=== PATIENT | male | born 1935 | race Caucasian/White ===

== ENCOUNTER → 2020-07-18 12:12 | Outpatient (CLI) | payer MEDICARE, OTHER, SELFPAY | PROVIDERS: Visit Provider Internal Medicine Cardiovascular Disease | DX: Z03.818 Encounter for observation for suspected exposure to other biological agents ruled out (principal) | CPT/HCPCS: U0003 ==

== ENCOUNTER 2020-08-03 20:40 | Observation (INO) | payer MEDICARE, SELFPAY ==
--- NOTE | 2020-08-03 20:35 | ECG_ITS ---
APPROVED REPORT Exam: Resting ECG HR:76 bpm ECG Measurements Heart Rate 76 AXES [place] 188 P 62 QRSd 142 QRS -46 QT 406 T 63 QTc 456 Conclusion Sinus rhythm with premature atrial complexes with aberrant conduction Right bundle branch block Left anterior fascicular block Bifascicular block Left ventricular hypertrophy with repolarization abnormality Abnormal ECG Electronically signed by : Dimitrios Crow, 08/08/2020 11:32:46
[2020-08-03 20:45] VITALS: BP 136/80; PULSE 64; RESP 18; TEMP 36.7; O2SAT 100; BMI 28.0
--- NOTE | 2020-08-03 20:51 | HMH.EDCP ---
ED Disposition Clinical Impression: Chest pain, Coagulopathy Disposition: Xfer Short-Term Hosp Condition on Discharge: Good Referrals: PCP,No [Non-Staff] - Forms: Transfer Record - ED - Critical Care Critical Care Time: No Attestation: On 08/03/20, the high probability of a clinically significant, sudden or life threatening deterioration of the following system(s) required my full and direct attention, intervention and personal management. The time I documented below is in addition to time spent performing reported procedures but includes the following listed in this critical care notation. Medical Decision Making - [place] Inquiry Pt receiving controlled substance: No Vital Signs: 08/03/20 20:45 08/03/20 21:23 08/03/20 21:47 Temperature 98.1 F Temperature Source Oral Pulse Rate [Right Brachial] 64 71 67 Respiratory Rate 18 Blood Pressure [Right Arm] 136/80 123/73 114/65 Blood Pressure Mean [Right Arm] 98 89 81 Blood Pressure Source [Right Arm] Automatic Cuff Automatic Cuff Automatic Cuff Blood Pressure Position [Right Arm] Sitting Sitting Sitting 02 Sat by Pulse Oximetry 100 94 L 95 Oxygen Delivery Method Room Air Room Air Room Air 08/03/20 22:35 08/03/20 23:00 Temperature 98.1 F Temperature Source Oral Pulse Rate [Right Brachial] 66 70 Respiratory Rate 17 Blood Pressure [Right Arm] 100/51 L 103/59 L Blood Pressure Mean [Right Arm] 67 73 Blood Pressure Source [Right Arm] Automatic Cuff Automatic Cuff Blood Pressure Position [Right Arm] Sitting Sitting 02 Sat by Pulse Oximetry 96 93 L Oxygen Delivery Method Room Air Room Air - Lab Data Lab Results 08/03/20 20:53: WBC 5.9, RBC 5.24, Hgb 15.2, Hct 47.3, MCV 90.2, MCH 29.1, MCHC 32.2, RDW 14.6, Plt Count 153, MPV 11.1 H, Neut % (Auto) 62.3, Lymph % (Auto) 30.7, [place] % (Auto) 5.7, Eos % (Auto) 0.8, Baso % (Auto) 0.4, Neut # (Auto) 3.7, Lymph # (Auto) 1.8, [place] # (Auto) 0.3, Eos # (Auto) 0.1, Baso # (Auto) 0.0 10/25/20 20:53: PT 56.5 H, INR 5.99 H 08/03/20 20:53: Sodium 138, Potassium 3.8, Chloride 102, Carbon Dioxide 27, Anion Gap 12.8, BUN 25 H, Creatinine 1.20, Estimated Creat Clear 57, Estimated GFR 58 L, Est GFR ( Amer) 70, Glucose 232 H, Calcium 9.3, Troponin I 0.04 H Result diagrams: 08/03/20 20:53 08/03/20 20:53 Orders (Tests/Meds): ED MEDICATIONS Generic Name Dose Route Start Last Admin Trade Name Freq PRN Reason Stop Dose Admin Nitroglycerin 0.4 mg 08/03/20 20:58 Nitroglycerin 0.4mg Sl Tablet SL 08/04/20 20:58 [id number] PRN Chest Pain Discontinued Medications Generic Name Dose Route Start Last Admin Trade Name Freq PRN Reason Stop Dose Admin Aspirin 324 mg 08/03/20 20:58 08/03/20 21:06 Aspirin 81mg Chewable Tablet PO 08/03/20 20:59 324 mg ONCE ONE Administration Ioversol 70 ml 08/03/20 22:27 08/03/20 22:28 Ioversol-350 (74%) 100ml Vial IV 08/03/20 22:28 70 ml ONCE ONE Administration Protocol Sodium Chloride 40 ml 08/03/20 22:27 08/03/20 22:28 0.9 % Sodium Chloride 50 Ml Vial IV 08/03/20 22:28 40 ml ONCE ONE Administration Sodium Chloride 10 ml 08/03/20 22:27 08/03/20 22:28 Sodium Chloride 0.9% 10ml Syr (Rad Only) IV 08/03/20 22:28 10 ml ONCE ONE Administration ORDERS Category Date Time Status CT Chest w/PE protocol [CT angio chest] Stat Cat Scan 08/03/20 21:01 Taken XR chest 2V Stat Exams 08/03/20 20:58 Taken Troponin I Q3H Lab 08/04/20 00:00 Ordered Troponin I Q3H Lab 08/04/20 03:00 Ordered ECG Request by /Sherrell Stat Y 08/03/20 20:58 Ordered - Radiology Data #1 Image(s): Chest Image Reviewed: Yes I reviewed the patient's radiology image Chest x-ray demonstrated normal aeration of bilateral lungs mild deviation of the trachea likely secondary to patient's history of a sternotomy. No enlarged heart silhouette. - CT Data CT Scan: Chest Time Received: 22:[address] Reviewed: Yes: I have reviewed the patient's CT re
--- NOTE | 2020-08-03 20:58 | XR_ITS ---
PROCEDURE: XR CHEST 2V CLINICAL HISTORY: chest pain Centralized chest pain, heart disease COMPARISON: CT CT ANGIO CHEST from 08/03/2020 FINDINGS: Prior median sternotomy. Prior TAVR. Biventricular pacemaker is present with right atrial lead. Mild cardiomegaly without failure. The lungs are clear without infiltrates, suspicious nodules, or pleural effusions. No acute bony abnormalities. IMPRESSION: Postsurgical changes with mild cardiomegaly Dictated by: Neymar Ellis MD 08/04/2020 05:31 Neymar Ellis MD in [place] 08/04/2020 05:31
--- NOTE | 2020-08-03 21:01 | CT_ITS ---
PROCEDURE: CT ANGIO CHEST CLINCIAL INDICATION: chest pain hx of thrombosis Centralized chest pain, prior aortic valve replacement COMPARISON: No exams were available for comparison TECHNIQUE: IV Contrast: 70ML OPTIRAY 350 Axial images obtained with sagittal and coronal reformats. All CT scans at the facility use one or more dose reduction, viz: automated exposure control, ma/kV adjustment per patient size (including targeted exams where dose is matched to indication, i.e. head), or iterative reconstruction technique. FINDINGS: Cardiac pacemaker device is present from left subclavian approach. No evidence of aortic aneurysm. There is somewhat elongated pulmonary outflow track with mild dilatation the supravalvular portion of the main pulmonary artery at 4.4 cm. No evidence of pulmonary embolus. No mediastinal or hilar mass. Post median sternotomy change with prior CABG and TAVR. There is mild ectasia and tortuosity of the descending thoracic aorta. Sub cm right thyroid nodule. Atelectatic or fibrotic changes are present in the lingula. There are mild degenerative changes in the thoracic spine. Upper abdominal images show cholelithiasis. There are punctate calcifications throughout the pancreas consistent with chronic pancreatitis. The adrenal glands are prominent on both sides and may be due to adenomas. There is a sub cm hypodensity in the right hepatic lobe inferiorly too small to categorize. IMPRESSION: 1. No evidence of pulmonary embolus. Mild dilatation of the supravalvular portion of the pulmonary artery. 2. Postsurgical changes. 3. Other nonacute findings as described above. Dictated by: Neymar Ellis MD 08/04/2020 06:22 Neymar Ellis MD in [place] 08/04/2020 06:22
--- NOTE | 2020-08-03 21:09 | PC.NURSE ---
Pt gone to xray at this time
--- NOTE | 2020-08-03 21:16 | ECG_ITS ---
APPROVED REPORT Exam: Resting ECG HR:67 bpm ECG Measurements Heart Rate 67 AXES CA 154 P 42 QRSd 140 QRS -42 QT 436 T 71 QTc 460 Conclusion Normal sinus rhythm Possible Left atrial enlargement Left axis deviation,LAHB Right bundle branch block Left ventricular hypertrophy Abnormal ECG Electronically signed by : Dimitrios Crow, 08/08/2020 11:32:25
[2020-08-03 21:23] VITALS: BP 123/73; PULSE 71; O2SAT 94
[2020-08-03 21:35] LABS: Basophils % 0.4 % (0.1-2.0); Eosinophils # 0.1 K/mm3 (0.0-0.4); Eosinophils % 0.8 % (0.1-12.0); Hematocrit 47.3 % (42.0-52.0); Hemoglobin 15.2 g/dL (14.1-18.0); Lymphocytes # 1.8 K/mm3 (0.7-4.5); Lymphocytes % 30.7 % (10-50); Mean Corpuscular HGB Conc 32.2 g/dL (31.8-35.4); Mean Corpuscular Hemoglobin 29.1 pg (27.0-31.2); Mean Corpuscular Volume 90.2 fl (80-94); Mean Platelet Volume 11.1 fl (7.4-10.4); Monocytes # 0.3 K/mm3 (0.1-1.0); Monocytes % 5.7 % (1.7-9.3); Neutrophils # 3.7 K/mm3 (1.8-7.8); Neutrophils % 62.3 % (37.0-80.0); Platelet Count 153 K/mm3 (142-424); Red Blood Count 5.24 M/mm3 (4.60-6.20); Red Cell Distribution Width 14.6 % (11.5-17.5); White Blood Count 5.9 K/mm3 (4.8-10.8)
[2020-08-03 21:37] LABS: Anion Gap 12.8 mEq/L (5-15); Blood Urea Nitrogen 25 mg/dl (9-20); Calcium 9.3 mg/dl (8.4-10.2); Carbon Dioxide 27 mmol/L (22.0-30.0); Chloride 102 mmol/L (98-107); Creatinine Clearance Estimated 57 mL/min (50-200); Estimated Glomerular Filt Rate 58 ml/min (>60); GFR (African American) 70 ML/MIN (>60); Glucose 232 mg/dl (74-100); Potassium 3.8 mmoL/L (3.5-5.1); Sodium 138 mmol/L (136-145)
[2020-08-03 21:47] VITALS: BP 114/65; PULSE 67; O2SAT 95
[2020-08-03 21:49] LABS: Troponin I 0.04 ng/ml (0.00-0.034)
[2020-08-03 21:53] LABS: INR 5.99 (0.9-1.1); Prothrombin Time 56.5 seconds (9.4-11.8)
[2020-08-03 22:35] VITALS: BP 100/51; PULSE 66; O2SAT 96
--- NOTE | 2020-08-03 22:51 | PC.NURSE ---
spoke with [facility] who accepted pt at this time. Stated they would jeet back with a bed assignment.
[2020-08-03 23:00] VITALS: BP 103/59; PULSE 70; RESP 17; TEMP 36.7; O2SAT 93
--- NOTE | 2020-08-03 23:11 | PC.NURSE ---
Dr craig calling to speak with
--- NOTE | 2020-08-03 23:15 | PC.NURSE ---
Dr craig is the accepting physician
[2020-08-04] VITALS (8 sets, daily range): BP systolic 107–146; BP diastolic 56–88; PULSE 50–71; RESP 18–19; TEMP 36.4–36.8; O2SAT 94–97; BMI 29.4
--- NOTE | 2020-08-04 00:19 | PC.NURSE ---
called transfer center for bed assignment update. Stated it would be at least morning until a bed was available.
[2020-08-04 00:36] LABS: Troponin I 0.11 ng/ml (0.00-0.034)
--- NOTE | 2020-08-04 00:44 | PC.NURSE ---
MD at the bedside speaking with patient about new lab findings
--- NOTE | 2020-08-04 00:46 | PC.NURSE ---
Updated [facility] of new lab findings
--- NOTE | 2020-08-04 00:49 | PC.NURSE ---
pagfior solorio at this time
--- NOTE | 2020-08-04 00:50 | PC.NURSE ---
Addendum entered by Margy Dsouza, REBA 08/04/20 00:55: Dr solorio to see pt in the morning Original Note: speaking with dr solorio
--- NOTE | 2020-08-04 00:52 | PC.NURSE ---
wants to admit pt to medically manage pt/inr until bed is available at [facility]. Dr Sarmiento paged at this time
--- NOTE | 2020-08-04 00:54 | PC.NURSE ---
speaking with dr girard
[2020-08-04 01:22] LABS: Coronavirus 19 IgG Antibody Positive (Negative)
[2020-08-04 01:23] LABS: Coronavirus 19 IgM Antibody Positive (Negative)
--- NOTE | 2020-08-04 01:25 | PC.NURSE ---
pt serology positive. md notified. order to swab.
[2020-08-04 01:42] LABS: Adenovirus,PCR Not Detected (NotDetected); Bordetella Pertussis Not Detected (NotDetected); Chlamydophila Pneumoniae, PCR Not Detected (NotDetected); Coronavirus 19, PCR Not Detected (NotDetected); Coronavirus 229E Not Detected (NotDetected); Coronavirus NL63 Not Detected (NotDetected); Coronavirus OC43 Not Detected (NotDetected); Coronovirus HKU1,PCR Not Detected (NotDetected); Human Metapneumovirus Not Detected (NotDetected); Influenza A, PCR Not Detected (NotDetected); Influenza AH1, 2009 Not Detected (NotDetected); Influenza AH1, PCR Not Detected (NotDetected); Influenza AH3,PCR Not Detected (NotDetected); Influenza B, PCR Not Detected (NotDetected); Mycoplasma Pneumoniae, PCR Not Detected (NotDetected); Parainfluenza 1, PCR Not Detected (NotDetected); Parainfluenza 2, PCR Not Detected (NotDetected); Parainfluenza 3, PCR Not Detected (NotDetected); Parainfluenza 4, PCR Not Detected (NotDetected); Respiratory Syncytial Virus Not Detected (NotDetected); Rhinovirus/Enterovirus Not Detected (NotDetected)
--- NOTE | 2020-08-04 03:21 | PC.NURSE ---
PT ARRIVED VIA W/C FROM ED W/STAFF AT 0024
--- NOTE | 2020-08-04 04:07 | PC.NURSE ---
PT A&OX4. pt denies SOA or pain since coming to floor. Lungs CTA. NSR on tele.
[2020-08-04 04:20] LABS: Troponin I 0.16 ng/ml (0.00-0.034)
--- NOTE | 2020-08-04 04:32 | PC.NURSE ---
Nita Aparicio from [facility] called this RN about a bed update. She reports still no beds available.
--- NOTE | 2020-08-04 06:01 | PC.NURSE ---
Alessandra from [facility] called for pt update. She reports no beds available
[2020-08-04 07:13] LABS: Basophils % 0.3 % (0.1-2.0); Eosinophils # 0.1 K/mm3 (0.0-0.4); Hematocrit 39.6 % (42.0-52.0); Hemoglobin 15.3 g/dL (14.1-18.0); Lymphocytes # 1.7 K/mm3 (0.7-4.5); Lymphocytes % 49.1 % (10-50); Mean Corpuscular HGB Conc 38.6 g/dL (31.8-35.4); Mean Corpuscular Hemoglobin 34.5 pg (27.0-31.2); Mean Corpuscular Volume 89.5 fl (80-94); Mean Platelet Volume 11.2 fl (7.4-10.4); Monocytes # 0.3 K/mm3 (0.1-1.0); Monocytes % 7.2 % (1.7-9.3); Neutrophils # 1.4 K/mm3 (1.8-7.8); Neutrophils % 41.3 % (37.0-80.0); Platelet Count 112 K/mm3 (142-424); Red Blood Count 4.43 M/mm3 (4.60-6.20); Red Cell Distribution Width 14.6 % (11.5-17.5); White Blood Count 3.4 K/mm3 (4.8-10.8)
[2020-08-04 07:20] LABS: Chloride 102 mmol/L (98-107); Sodium 140 mmol/L (136-145)
[2020-08-04 07:21] LABS: Potassium 4.1 mmoL/L (3.5-5.1)
--- NOTE | 2020-08-04 07:21 | HMH.PHAVTE ---
[facility] Pharmacy VTE Monitoring - Patient Demographics Admission date: 08/04/20 Report Date: 08/04/20 Time: 07:21 Allergies/Adverse Reactions: Patient Allergies clopidogrel [From Plavix] Adverse Reaction (Verified 08/03/20 20:53) Height: 1.75 m Weight: 90.129 kg Patient Problems: Current Active Problems Chest pain (Acute) Coagulopathy (Acute) - VTE Risk Labs: VTE Related Lab Results Hgb 15.3 g/dL (14.1-18.0) 08/04/20 06:44 Hct 39.6 % (42.0-52.0) L 08/04/20 06:44 Plt Count 112 K/mm3 (142-424) L D 08/04/20 06:44 PT 56.5 seconds (9.4-11.8) H 08/03/20 20:53 INR 5.99 (0.9-1.1) H 08/03/20 20:53 BUN 25 mg/dl (9-20) H 08/03/20 20:53 Creatinine 1.20 mg/dl (0.66-1.25) 08/03/20 20:53 Estimated Creat Clear 57 mL/min (50-200) 08/03/20 20:53 Was VTE Risk Assessment Performed: Yes VTE Score: 1 VTE Risk Level: Very Low Risk Clinical Trial Participant: No - Prophylaxis VTE Prophylaxis Ordered?: Yes Types of VTE Prophylaxis: TEDS Knee High
[2020-08-04 07:24] LABS: Anion Gap 11.1 mEq/L (5-15); Blood Urea Nitrogen 28 mg/dl (9-20); Calcium 9.3 mg/dl (8.4-10.2); Carbon Dioxide 31 mmol/L (22.0-30.0); Creatinine Clearance Estimated 59 mL/min (50-200); Estimated Glomerular Filt Rate 58 ml/min (>60); GFR (African American) 70 ML/MIN (>60); Glucose 108 mg/dl (74-100)
[2020-08-04 07:57] LABS: INR 5.49 (0.9-1.1); Prothrombin Time 52.2 seconds (9.4-11.8)
--- NOTE | 2020-08-04 08:37 | HMH.HP ---
*Admission Date: 08/04/20 *Chief complaint: Chest pain *History of present illness: Mr. Cassidy is an 85-year-old male patient who is followed by Dr. Easley, cardiology, and PCP at [facility] with a history of CABG in 2007, aortic valve replacement in October 2019 followed by reaction to Plavix at which time he ended up with a pacemaker placement. 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 He states he began having midsternal chest discomfort around 3:00 PM yesterday which continued until about 8 PM. He describes the pain is severe and continuous and associated with some shortness of breath. He did feel it radiated up into his neck and shoulders. He did not feel palpitations. He denies fever and any other respiratory symptoms. Thus he did present to [facility] emergency room for evaluation. With evaluation in the emergency room CTA of the chest showed no evidence of pulmonary embolus; mild dilatation of the supra valvular portion of the pulmonary artery; postsurgical changes. INR was elevated at 5.99. Troponin was elevated at 0.04. He was given a nitroglycerin and a chewable aspirin. EKG did show a paced rhythm with a left anterior fascicular block and right bundle branch block. ER physician did discuss his condition with blasting contract miner on-call at [facility] who recommended admission and transfer. He was successfully accepted for transfer but no bed was available. He continues to await a bed. Troponin I did further elevated to 0.11-0.16. This a.m. electrolytes are normal, kidney function is acceptable. INR has decreased to 5.49. To note SARS Covid IgG was positive as well as IgM. SARS Covid PCR was negative. This a.m. patient denies any further chest pain. He actually got into his room about 4 AM and maybe has slept her. He denies shortness of breath. He has eaten all of his breakfast. Patient notes that he is very active. 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 [facility] History Medical History: Reports:: Atherosclerotic Heart Disease, Coronary Artery Disease, Heart Murmur, Hyperlipidemia, Hypertension, Valvular Heart Disease Denies:: Cancer, Diabetes Mellitus Type 1, Diabetes Mellitus Type 2, Gastrointestinal Bleed, Internal Pacemaker, MRSA *Have you ever received a pneumonia vaccine?: Yes *Have you received a flu vaccine this season?: Yes Other Surgeries: Yes: Cardiac Catheterization, Cardiac Surgery, Open Heart Surgery, Other Valve Replacement. No: Pacemaker Amputation: No - *Social History Last grade of school completed: Advanced degree Smoking Status: Former smoker Tobacco Type: cigarettes # Packs/Day (cigarettes): 1 #Yrs smoked (if former smoker): 45 Smoking End Date: 2007 Alcohol Intake: never *Occupational Status:: retired Household Members: spouse *Travel in the last 8 weeks: None Family Hx:: Coronary Artery Disease, Heart Attack, Hyperlipidemia, Hypertension Review of Systems - Constitutional Denies fever(s), Denies lack of energy - Eyes Denies change in vision - ENT Denies dizziness, Denies ear pain, Denies sore throat - *Cardiovascular Reports chest pain, Reports shortness of breath, Denies irregular heart rhythm, Denies leg swelling - *Gastrointestinal Denies abdominal pain, Denies change in bowel habits, Denies heartburn, Denies nausea, Denies vomiting - *Genitourinary Denies difficulty urinating - *Musculoskeletal Denies abnormal walking, Denies joint pain, Denies muscle weakness - *Neurologic Denies abnormal walking, Denies abnormal speech, Denies seizure-like activity, Denies unsteadiness, Denies dizziness Meds Home Medications Medication Instructions Recorded Confirmed Type Atorvastatin Calcium [Lipitor 20mg 20 mg PO WEEKLY 08/03/20 08/04/20 History Tablet*] Lisinopril/Hydrochlorothiazide 1 each PO DAILY 08/03/20 08/04/20 History [Lisinopril-Hctz 20-12.5 mg Tab] Ni
--- NOTE | 2020-08-04 09:00 | HMH.HPDC ---
General - General Admission date:: 08/04/20 Discharge date: 08/04/20 *Admission Date: 08/04/20 *Chief complaint: chest pain *History of present illness: Mr. Cassidy is an 85-year-old male patient who is followed by Dr. Easley, cardiology, and PCP at [facility] with a history of CABG in 2007, aortic valve replacement in October 2019 followed by reaction to Plavix at which time he ended up with a pacemaker placement. 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 He states he began having midsternal chest discomfort around 3:00 PM yesterday which continued until about 8 PM. He describes the pain as being severe and continuous and associated with some shortness of breath. He did feel it radiated up into his neck and shoulders. He did not feel palpitations. He denies fever and any other respiratory symptoms. Thus he did present to [facility] emergency room for evaluation. With evaluation in the emergency room CTA of the chest showed no evidence of pulmonary embolus; mild dilatation of the supra valvular portion of the pulmonary artery; postsurgical changes. INR was elevated at 5.99. Troponin was elevated at 0.04. He was given a nitroglycerin and a chewable aspirin. EKG did show a paced rhythm with a left anterior fascicular block and right bundle branch block. ER physician did discuss his condition with liquefaction supervisor on-call at [facility] who recommended admission and transfer. He was successfully accepted for transfer but no bed was available. He continues to await a bed. Troponin I did further elevated to 0.11-0.16. This a.m. electrolytes are normal, kidney function is acceptable. INR has decreased to 5.49. To note SARS Covid IgG was positive as well as IgM. SARS Covid PCR was negative. This a.m. patient denies any further chest pain. He actually got into his room about 4 AM and maybe has slept for about 1 hour. He denies shortness of breath. He has eaten all of his breakfast. Patient notes that he is very active. 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 [facility] History Medical History: Reports:: Atherosclerotic Heart Disease, Coronary Artery Disease, Heart Murmur, Hyperlipidemia, Hypertension, Valvular Heart Disease Denies:: Cancer, Diabetes Mellitus Type 1, Diabetes Mellitus Type 2, Gastrointestinal Bleed, Internal Pacemaker, MRSA *Have you ever received a pneumonia vaccine?: Yes *Have you received a flu vaccine this season?: Yes Other Surgeries: Yes: Cardiac Catheterization, Cardiac Surgery, Open Heart Surgery, Other Valve Replacement. No: Pacemaker Amputation: No - *Social History Last grade of school completed: Advanced degree Smoking Status: Former smoker Tobacco Type: cigarettes # Packs/Day (cigarettes): 1 #Yrs smoked (if former smoker): 45 Smoking End Date: 2007 Alcohol Intake: never *Occupational Status:: retired Household Members: spouse *Travel in the last 8 weeks: None Family Hx:: Coronary Artery Disease, Heart Attack, Hyperlipidemia, Hypertension Review of Systems - Constitutional Denies body ache(s), Denies fatigue, Denies fever(s) - Eyes Denies change in vision - ENT Denies dizziness, Denies ear pain, Denies sore throat - *Cardiovascular Reports chest pain, Reports shortness of breath, Denies leg swelling, Denies rapid, pounding, or irregular heartbeat - *Respiratory Reports shortness of breath, Denies chest congestion, Denies cough - *Gastrointestinal Denies abdominal pain, Denies change in bowel habits, Denies heartburn, Denies bright, red blood in stools, Denies black, tarry stools, Denies nausea, Denies vomiting - *Genitourinary Denies difficulty urinating, Denies painful urination - *Musculoskeletal Denies abnormal walking, Denies joint pain - *Neurologic Denies abnormal walking, Denies abnormal speech, Denies seizure-like activity, Denies unsteadiness, Denies dizziness Exa
--- NOTE | 2020-08-04 09:18 | HMH.ACPN2 ---
Internal Medicine - PN: Subj *Date: 08/04/20 *Time: 09:18 Exam Vital signs and Labs for Last 24 Hours: Temp Pulse Resp BP Pulse Ox 98.2 F 62 18 144/74 H 94 L 08/04/20 08:00 08/04/20 08:00 08/04/20 08:00 08/04/20 08:00 08/04/20 08:00 Laboratory Results - last 24 hr 08/03/20 20:53: WBC 5.9, RBC 5.24, Hgb 15.2, Hct 47.3, MCV 90.2, MCH 29.1, MCHC 32.2, RDW 14.6, Plt Count 153, MPV 11.1 H, Neut % (Auto) 62.3, Lymph % (Auto) 30.7, [place] % (Auto) 5.7, Eos % (Auto) 0.8, Baso % (Auto) 0.4, Neut # (Auto) 3.7, Lymph # (Auto) 1.8, [place] # (Auto) 0.3, Eos # (Auto) 0.1, Baso # (Auto) 0.0 08/03/20 20:53: PT 56.5 H, INR 5.99 H 08/03/20 20:53: Sodium 138, Potassium 3.8, Chloride 102, Carbon Dioxide 27, Anion Gap 12.8, BUN 25 H, Creatinine 1.20, Estimated Creat Clear 57, Estimated GFR 58 L, Est GFR ( Amer) 70, Glucose 232 H, Calcium 9.3, Troponin I 0.04 H 08/03/20 20:53: SARS-CoV-2 IgG Ab (Rapid) Positive A, SARS-CoV-2 IgM Ab (Rapid) Positive A 08/04/20 00:08: Troponin I 0.11 H 08/04/20 01:36: Chlamy pneumoniae PCR Not detected, Adenovirus (PCR) Not detected, B. pertussis DNA (PCR) Not detected, Coronavirus OC43 (PCR) Not detected, Coronavirus HKU1 (PCR) Not detected, Coronavirus 229E (PCR) Not detected, SARS-CoV-2 (PCR) Not detected, Coronavirus NL63 (PCR) Not detected, Human Metapneumovir PCR Not detected, Influenza A (H1) PCR Not detected, Influ A (H1N1/09) PCR Not detected, Influenza A (H3) PCR Not detected, Influenza Type A (PCR) Not detected, Influenza Type B (PCR) Not detected, M. pneumoniae (PCR) Not detected, Parainfluenza 1 (PCR) Not detected, Parainfluenza 2 (PCR) Not detected, Parainfluenza 3 (PCR) Not detected, Parainfluenza 4 (PCR) Not detected, RSV (PCR) Not detected, Entero/Rhino (PCR) Not detected 08/04/20 03:05: Troponin I 0.16 H 08/04/20 06:44: WBC 3.4 L D, RBC 4.43 L, Hgb 15.3, Hct 39.6 L, MCV 89.5, MCH 34.5 H, MCHC 38.6 H, RDW 14.6, Plt Count 112 L D, MPV 11.2 H, Neut % (Auto) 41.3, Lymph % (Auto) 49.1, [place] % (Auto) 7.2, Eos % (Auto) 2.0, Baso % (Auto) 0.3, Neut # (Auto) 1.4 L, Lymph # (Auto) 1.7, [place] # (Auto) 0.3, Eos # (Auto) 0.1, Baso # (Auto) 0.0 08/04/20 06:44: PT 52.2 H, INR 5.49 H 08/04/20 06:44: Sodium 140, Potassium 4.1, Chloride 102, Carbon Dioxide 31 H, Anion Gap 11.1, BUN 28 H, Creatinine 1.20, Estimated Creat Clear 59, Estimated GFR 58 L, Est GFR ( Amer) 70, Glucose 108 H D, Calcium 9.3 I & O for Last 24 hours: Intake & Output 08/01/20 08/02/20 08/03/20 08/04/20 11:59 11:59 11:59 11:59 Intake Total 480 / 480 Balance 480 / 480 Weight 198 lb 11.2 oz - Constitutional no acute distress - *Routine Neck Exam Absent: JVD - Routine Chest/Breast/Axilla Exam Chest wall: Absent: tenderness - *Routine Respiratory Exam Present: CTA bilaterally - *Routine Cardiovascular Exam Present: RRR, murmur (Aortic) - *Routine Extremities Exam Absent: edema Assessment and Plan (1) NSTEMI (non-ST elevated myocardial infarction) Status: Acute Category: Medical Code(s): I21.4 - Non-ST elevation (NSTEMI) myocardial infarction (2) Chest pain Status: Acute Category: Medical Code(s): R07.9 - Chest pain, unspecified (3) H/O aortic valve replacement Status: Acute Category: Surgical Code(s): Z95.2 - Presence of prosthetic heart valve (4) S/P TAVR (transcatheter aortic valve replacement) Status: Acute Category: Surgical Code(s): Z95.2 - Presence of prosthetic heart valve (5) Thrombus due to any device, implant or graft Status: Acute Category: Medical Code(s): T85.868A - Thrombosis due to other internal prosthetic devices, implants and grafts, initial encounter (6) Coagulopathy Status: Acute Category: Medical Code(s): D68.9 - Coagulation defect, unspecified - Assessment and plan all Dx Assessment and Plan for all problems:: The patient will be transferred to [facility] now that a bed is available. He is a regular patient of , ca
== END 2020-08-04 10:30 | disposition short-term general hospital (02) ==
LOC: ER 23:22 → 2ND 08-04 01:10
PROVIDERS: Admitting Provider Family Medicine; Emergency Provider Student in an Organized Health Care Education/Training Program; PCP Internal Medicine; Visit Provider Family Medicine
DX: R07.9 Chest pain, unspecified (principal); Z86.19 Personal history of other infectious and parasitic diseases; I21.4 Non-ST elevation (NSTEMI) myocardial infarction; T85.868A Thrombosis due to other internal prosthetic devices, implants and grafts, initial encounter; Z95.0 Presence of cardiac pacemaker; Z95.1 Presence of aortocoronary bypass graft; Z95.2 Presence of prosthetic heart valve; Z79.01 Long term (current) use of anticoagulants; Z79.899 Other long term (current) drug therapy; Z87.891 Personal history of nicotine dependence; R79.1 Abnormal coagulation profile; I10 Essential (primary) hypertension
CPT/HCPCS: 71046; 71275; 80048; 84484; 85025; 85610; 86328; 87581; 87633; 87798; 93005; 99284; G0378; Q9967

== ENCOUNTER 2021-07-28 11:33 | Emergency (ER) | payer MEDICARE, SELFPAY ==
[2021-07-28 11:40] VITALS: BP 142/73; PULSE 84; RESP 16; TEMP 36.8; O2SAT 98; BMI 27.4
--- NOTE | 2021-07-28 13:04 | XR_ITS ---
PROCEDURE: XR TIBIA FIBULA LT 2V CLINICAL INDICATION: fall COMPARISON: No exams were available for comparison FINDINGS: No fracture or dislocation. No lytic or blastic change. There is normal mineralization. The joint spaces are well-preserved. No significant degenerative/arthritic changes. No erosive changes evident. Other findings:None. IMPRESSION: No acute findings. Dictated by: Neymar Ellis MD 07/28/2021 16:02 Neymar Ellis MD in [place] 07/28/2021 16:02
--- NOTE | 2021-07-28 13:04 | XR_ITS ---
PROCEDURE: XR KNEE LT 3V CLINICAL INDICATION: fall COMPARISON: No exams were available for comparison FINDINGS: No fracture or dislocation. No lytic or blastic change. There is normal mineralization. The joint spaces are well-preserved. No significant degenerative/arthritic changes. No erosive changes evident. Other findings:There is generalized vascular calcification. Surgical clip is present along the medial aspect of the proximal leg. IMPRESSION: No acute findings. Dictated by: Neymar Ellis MD 07/28/2021 16:02 Neymar Ellis MD in [place] 07/28/2021 16:02
[2021-07-28 13:09] VITALS: BP 159/75; PULSE 60; RESP 16; TEMP 36.8; O2SAT 98; BMI 28.8
--- NOTE | 2021-07-28 13:47 | HMH.EDUTC ---
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 Take tylenol for pain. Follow up with Dr. Dunbar (orthopedics). I put in a referral but you need to call his office and schedule an appointment. Follow up with your regular doctor. GO TO THE ER FOR ANY WORSENING SYMPTOMS Referrals: Sara Saunders [Primary Care Provider] - Yadira Dunbar [Referring] - Time of Disposition: 14:22 Medical Decision Making - Medical Records Medical records reviewed: No: I reviewed the patient's medical records. - Celestino Inquiry Pt receiving controlled substance: No Vital Signs: 07/28/21 11:40 07/28/21 13:09 07/28/21 14:23 Temperature 98.3 F 98.2 F 98.2 F Temperature Source Oral Oral Pulse Rate 60 Pulse Rate [Right] 84 60 Respiratory Rate 16 16 19 Blood Pressure 159/75 H Blood Pressure [Right Arm] 142/73 H 159/75 H Blood Pressure Mean [Right Arm] 96 103 Blood Pressure Source [Right Arm] Automatic Cuff Blood Pressure Position [Right Arm] Sitting 02 Sat by Pulse Oximetry 98 98 Oxygen Delivery Method Room Air - Radiology Data #1 Image(s): Tib/Fib Image Reviewed: Yes I reviewed the patient's radiology image, Yes I have reviewed radiologist's interpretation Preliminary Findings: Normal/NAD, No Fracture Seen PROCEDURE: XR TIBIA FIBULA LT 2V CLINICAL INDICATION: fall COMPARISON: No exams were available for comparison FINDINGS: No fracture or dislocation. No lytic or blastic change. There is normal mineralization. The joint spaces are well-preserved. No significant degenerative/arthritic changes. No erosive changes evident. Other findings:None. IMPRESSION: No acute findings. Dictated by: Neymar Ellis MD 07/28/2021 16:02 Neymar Ellis MD in [place] 07/28/2021 16:02 #2 Image(s): Knee Image Reviewed: Yes I reviewed the patient's radiology image, Yes I have reviewed radiologist's interpretation Preliminary Findings: Normal/NAD, No Fracture Seen PROCEDURE: XR KNEE LT 3V CLINICAL INDICATION: fall COMPARISON: No exams were available for comparison FINDINGS: No fracture or dislocation. No lytic or blastic change. There is normal mineralization. The joint spaces are well-preserved. No significant degenerative/arthritic changes. No erosive changes evident. Other findings:There is generalized vascular calcification. Surgical clip is present along the medial aspect of the proximal leg. IMPRESSION: No acute findings. Dictated by: Neymar Ellis MD 07/28/2021 16:02 Neymar Ellis MD in [place] 07/28/2021 16:02 [facility] [place] - General Time Seen by Provider: 07/28/21 13:47 Mode of Arrival: Ambulatory Source of Information: Patient Limitations: No Limitations Description of Symptoms (Recalled from Triage Doc. by RN): pt hit his L knee on a piece of the tractor. skin is intact. pts L knee is swollen and painful. HEENT Symptoms (Recalled from RN notes): No Resp Symptoms (Recalled from RN notes): No Skin Symptoms (Recalled from RN notes): No MS Symptoms (Recalled from RN notes): Yes (L knee pain) Functional Status (Recalled from RN notes): na - History of Present Illness Provider Complaint: He states that he was using his tractor to mow yesterday. He had to get off the tractor to do something. The ground was wet and it caused him to slip. When he slipped he bump his left lower leg against the side of the tractor. He has had left leg pain, bruising and swellling since then. He
[2021-07-28 14:23] VITALS: BP 159/75; PULSE 60; RESP 19; TEMP 36.8
== END 2021-07-28 14:32 | disposition home or self-care (01) ==
PROVIDERS: Emergency Provider Nurse Practitioner Family; PCP Internal Medicine Medical Oncology
DX: S80.12XA Contusion of left lower leg, initial encounter (principal); W22.8XXA Striking against or struck by other objects, initial encounter; Y92.019 Unspecified place in single-family (private) house as the place of occurrence of the external cause; I10 Essential (primary) hypertension; E78.5 Hyperlipidemia, unspecified
CPT/HCPCS: G0463; 73562; 73590; 99202

== ENCOUNTER → 2021-08-31 12:40 | Outpatient (CLI) | payer MEDICARE, SELFPAY ==
[2021-08-31 13:35] LABS: Prothrombin Time 28.3 seconds (10.1-12.5)
== END ==
PROVIDERS: Visit Provider Internal Medicine
DX: Z51.81 Encounter for therapeutic drug level monitoring (principal); Z79.01 Long term (current) use of anticoagulants
CPT/HCPCS: 36415; 85610

== ENCOUNTER → 2021-09-28 12:21 | Outpatient (CLI) | payer MEDICARE, SELFPAY ==
[2021-09-28 13:07] LABS: INR 2.64 (0.9-1.1); Prothrombin Time 27.8 seconds (10.1-12.5)
== END ==
PROVIDERS: Visit Provider Internal Medicine
DX: Z51.81 Encounter for therapeutic drug level monitoring (principal); Z79.01 Long term (current) use of anticoagulants
CPT/HCPCS: 36415; 85610

== ENCOUNTER → 2021-12-10 13:22 | Outpatient (CLI) | payer MEDICARE, SELFPAY ==
[2021-12-10 15:01] LABS: INR 1.83 (0.9-1.1); Prothrombin Time 19.8 seconds (10.1-12.5)
== END ==
PROVIDERS: Visit Provider Internal Medicine
DX: Z51.81 Encounter for therapeutic drug level monitoring (principal); Z79.01 Long term (current) use of anticoagulants
CPT/HCPCS: 36415; 85610

== ENCOUNTER → 2021-12-24 14:48 | Outpatient (CLI) | payer MEDICARE, SELFPAY ==
[2021-12-24 15:57] LABS: INR 3.04 (0.9-1.1); Prothrombin Time 31.6 seconds (10.1-12.5)
== END ==
PROVIDERS: Visit Provider Internal Medicine
DX: Z51.81 Encounter for therapeutic drug level monitoring (principal); Z79.01 Long term (current) use of anticoagulants
CPT/HCPCS: 36415; 85610

== ENCOUNTER → 2021-12-31 11:23 | Outpatient (CLI) | payer MEDICARE, SELFPAY ==
[2021-12-31 13:17] LABS: INR 2.29 (0.9-1.1); Prothrombin Time 24.3 seconds (10.1-12.5)
== END ==
PROVIDERS: Visit Provider Internal Medicine
DX: Z51.81 Encounter for therapeutic drug level monitoring (principal); Z79.01 Long term (current) use of anticoagulants
CPT/HCPCS: 36415; 85610

== ENCOUNTER → 2022-02-05 10:59 | Outpatient (CLI) | payer MEDICARE, SELFPAY ==
[2022-02-05 11:40] LABS: INR 3.77 (0.9-1.1); Prothrombin Time 38.6 seconds (10.1-12.5)
== END ==
PROVIDERS: Visit Provider Internal Medicine
DX: Z51.81 Encounter for therapeutic drug level monitoring (principal); Z79.01 Long term (current) use of anticoagulants
CPT/HCPCS: 36415; 85610

== ENCOUNTER → 2022-03-04 12:49 | Outpatient (CLI) | payer MEDICARE, SELFPAY ==
[2022-03-04 13:17] LABS: INR 4.57 (0.9-1.1)
[2022-03-04 13:38] LABS: Prothrombin Time 46.1 seconds (10.1-12.5)
== END ==
PROVIDERS: Visit Provider Internal Medicine
DX: Z51.81 Encounter for therapeutic drug level monitoring (principal); Z79.01 Long term (current) use of anticoagulants
CPT/HCPCS: 36415; 85610

== ENCOUNTER → 2022-03-18 11:15 | Outpatient (CLI) | payer MEDICARE, SELFPAY ==
[2022-03-18 12:47] LABS: INR 2.65 (0.9-1.1); Prothrombin Time 27.9 seconds (10.1-12.5)
== END ==
PROVIDERS: PCP Internal Medicine; Visit Provider Internal Medicine
DX: Z51.81 Encounter for therapeutic drug level monitoring (principal); Z79.01 Long term (current) use of anticoagulants
CPT/HCPCS: 36415; 85610

== ENCOUNTER → 2022-04-15 11:54 | Outpatient (CLI) | payer MEDICARE, SELFPAY ==
[2022-04-15 13:08] LABS: INR 3.36 (0.9-1.1); Prothrombin Time 34.7 seconds (10.1-12.5)
== END ==
LOC: ACC 11:56 → LAB 11:59
PROVIDERS: PCP Internal Medicine; Visit Provider Internal Medicine
DX: Z51.81 Encounter for therapeutic drug level monitoring (principal); Z79.01 Long term (current) use of anticoagulants
CPT/HCPCS: 36415; 85610

== ENCOUNTER → 2022-05-19 12:35 | Outpatient (CLI) | payer MEDICARE, SELFPAY ==
[2022-05-19 12:59] LABS: INR 2.63 (0.9-1.1); Prothrombin Time 27.7 seconds (10.1-12.5)
== END ==
PROVIDERS: Visit Provider Internal Medicine
DX: Z51.81 Encounter for therapeutic drug level monitoring (principal); Z79.01 Long term (current) use of anticoagulants
CPT/HCPCS: 36415; 85610

== ENCOUNTER → 2022-06-16 11:30 | Outpatient (CLI) | payer MEDICARE, SELFPAY ==
[2022-06-16 12:35] LABS: INR 2.96 (0.9-1.1); Prothrombin Time 30.1 seconds (10.1-12.5)
== END ==
PROVIDERS: Visit Provider Internal Medicine
DX: Z51.81 Encounter for therapeutic drug level monitoring (principal); Z79.01 Long term (current) use of anticoagulants
CPT/HCPCS: 36415; 85610

== ENCOUNTER → 2022-07-14 10:50 | Outpatient (CLI) | payer MEDICARE, SELFPAY ==
[2022-07-14 11:47] LABS: Basophils # 0.1 K/mm3 (0-0.2); Basophils % 1.3 % (0.1-2.0); Eosinophils # 0.1 K/mm3 (0.0-0.4); Eosinophils % 2.2 % (0.1-12.0); Hematocrit 32.7 % (42.0-52.0); Hemoglobin 10.1 g/dL (14.1-18.0); Lymphocytes # 1.3 K/mm3 (0.7-4.5); Lymphocytes % 32.8 % (10-50); Mean Corpuscular Hemoglobin 25.3 pg (27.0-31.2); Mean Corpuscular Volume 81.5 fl (80-94); Mean Platelet Volume 11.1 fl (7.4-10.4); Monocytes # 0.3 K/mm3 (0.1-1.0); Monocytes % 8.2 % (1.7-9.3); Neutrophils # 2.1 K/mm3 (1.8-7.8); Neutrophils % 55.4 % (37.0-80.0); Platelet Count 205 K/mm3 (142-424); Red Blood Count 4.01 M/mm3 (4.60-6.20); Red Cell Distribution Width 16.4 % (11.5-17.5); White Blood Count 3.8 K/mm3 (4.8-10.8)
[2022-07-14 12:19] LABS: INR 2.55 (0.9-1.1); Prothrombin Time 26.1 seconds (10.1-12.5)
[2022-07-14 12:37] LABS: Anion Gap 13.3 mEq/L (5-15); Blood Urea Nitrogen 36 mg/dl (9-20); Calcium 8.9 mg/dl (8.4-10.2); Carbon Dioxide 30 mmol/L (22.0-30.0); Chloride 103 mmol/L (98-107); Estimated Glomerular Filt Rate 48 ml/min (>60); GFR (African American) 58 ML/MIN (>60); Glucose 132 mg/dl (74-100); Phosphorous 3.3 mg/dl (2.5-4.5); Potassium 4.3 mmoL/L (3.5-5.1); Sodium 142 mmol/L (136-145)
[2022-07-14 12:46] LABS: Total Iron Binding Capacity 487 ug/dL (261-462)
[2022-07-14 12:49] LABS: Intact Parathyroid Hormone 43.8 pg/mL (7.5-53.5)
[2022-07-14 13:02] LABS: Iron 27 ug/dL (49-181)
[2022-07-14 13:27] LABS: Vitamin B12 625 pg/mL (239-931)
== END ==
PROVIDERS: PCP Family Medicine; Visit Provider Internal Medicine
DX: D64.9 Anemia, unspecified (principal); Z51.81 Encounter for therapeutic drug level monitoring; Z79.01 Long term (current) use of anticoagulants
CPT/HCPCS: 36415; 80048; 82607; 82728; 83540; 83550; 83970; 84100; 85025; 85610

== ENCOUNTER → 2022-08-11 11:51 | Outpatient (CLI) | payer MEDICARE, SELFPAY ==
[2022-08-11 12:15] LABS: INR 3.52 (0.9-1.1); Prothrombin Time 35.4 seconds (10.1-12.5)
== END ==
PROVIDERS: PCP Family Medicine; Visit Provider Internal Medicine
DX: Z51.81 Encounter for therapeutic drug level monitoring (principal); Z79.01 Long term (current) use of anticoagulants
CPT/HCPCS: 36415; 85610

== ENCOUNTER → 2022-08-25 11:34 | Outpatient (CLI) | payer MEDICARE, SELFPAY ==
[2022-08-25 12:21] LABS: INR 3.35 (0.9-1.1); Prothrombin Time 33.8 seconds (10.1-12.5)
== END ==
PROVIDERS: PCP Family Medicine; Visit Provider Internal Medicine
DX: Z51.81 Encounter for therapeutic drug level monitoring (principal); Z79.01 Long term (current) use of anticoagulants
CPT/HCPCS: 36415; 85610

== ENCOUNTER → 2022-09-08 12:24 | Outpatient (CLI) | payer MEDICARE, SELFPAY ==
[2022-09-08 13:23] LABS: INR 3.14 (0.9-1.1); Prothrombin Time 31.8 seconds (10.1-12.5)
== END ==
LOC: ACC 12:26 → LAB 12:30
PROVIDERS: PCP Family Medicine; Visit Provider Internal Medicine
DX: Z51.81 Encounter for therapeutic drug level monitoring (principal); Z79.01 Long term (current) use of anticoagulants
CPT/HCPCS: 36415; 85610

== ENCOUNTER → 2022-09-22 15:53 | Outpatient (CLI) | payer MEDICARE, SELFPAY ==
[2022-09-22 16:34] LABS: INR 1.74 (0.9-1.1); Prothrombin Time 18.2 seconds (10.1-12.5)
== END ==
PROVIDERS: PCP Family Medicine; Visit Provider Internal Medicine
DX: Z51.81 Encounter for therapeutic drug level monitoring (principal); Z79.01 Long term (current) use of anticoagulants
CPT/HCPCS: 36415; 85610

== ENCOUNTER → 2022-10-07 12:34 | Outpatient (CLI) | payer MEDICARE, SELFPAY ==
[2022-10-07 12:59] LABS: INR 2.27 (0.9-1.1); Prothrombin Time 23.4 seconds (10.1-12.5)
== END ==
PROVIDERS: PCP Family Medicine; Visit Provider Internal Medicine
DX: Z51.81 Encounter for therapeutic drug level monitoring (principal); Z79.01 Long term (current) use of anticoagulants
CPT/HCPCS: 36415; 85610

== ENCOUNTER → 2022-12-29 12:06 | Outpatient (CLI) | payer MEDICARE, SELFPAY ==
[2022-12-29 13:10] LABS: INR 2.17 (0.9-1.1); Prothrombin Time 22.4 seconds (10.1-12.5)
== END ==
LOC: ACC 12:12 → LAB 12:13
PROVIDERS: PCP Family Medicine; Visit Provider Internal Medicine
DX: Z51.81 Encounter for therapeutic drug level monitoring (principal); Z79.01 Long term (current) use of anticoagulants
CPT/HCPCS: 36415; 85610

== ENCOUNTER → 2023-01-26 13:07 | Outpatient (CLI) | payer MEDICARE, SELFPAY ==
[2023-01-26 14:07] LABS: INR 1.85 (0.9-1.1); Prothrombin Time 19.3 seconds (10.1-12.5)
== END ==
PROVIDERS: PCP Registered Nurse; Visit Provider Internal Medicine
DX: Z51.81 Encounter for therapeutic drug level monitoring (principal); Z79.01 Long term (current) use of anticoagulants
CPT/HCPCS: 36415; 85610

== ENCOUNTER → 2023-02-09 10:31 | Outpatient (CLI) | payer MEDICARE, SELFPAY ==
[2023-02-09 11:19] LABS: INR 1.77 (0.9-1.1); Prothrombin Time 18.5 seconds (10.1-12.5)
== END ==
PROVIDERS: PCP Family Medicine; Visit Provider Internal Medicine
DX: Z51.81 Encounter for therapeutic drug level monitoring (principal); Z79.01 Long term (current) use of anticoagulants
CPT/HCPCS: 36415; 85610

== ENCOUNTER → 2023-02-21 11:09 | Outpatient (CLI) | payer MEDICARE, SELFPAY ==
[2023-02-21 11:41] LABS: INR 2.52 (0.9-1.1); Prothrombin Time 25.8 seconds (10.1-12.5)
== END ==
PROVIDERS: PCP Family Medicine; Visit Provider Internal Medicine
DX: Z51.81 Encounter for therapeutic drug level monitoring (principal); Z79.01 Long term (current) use of anticoagulants
CPT/HCPCS: 36415; 85610; 85730

== ENCOUNTER → 2023-03-21 11:59 | Outpatient (CLI) | payer MEDICARE, SELFPAY ==
[2023-03-21 12:43] LABS: INR 2.34 (0.9-1.1); Prothrombin Time 24.1 seconds (10.1-12.5)
== END ==
PROVIDERS: PCP Family Medicine; Visit Provider Internal Medicine
DX: Z51.81 Encounter for therapeutic drug level monitoring (principal); Z79.01 Long term (current) use of anticoagulants
CPT/HCPCS: 36415; 85610

== ENCOUNTER → 2023-04-11 14:04 | Outpatient (CLI) | payer MEDICARE, SELFPAY ==
--- NOTE | 2023-04-11 14:09 | CT_ITS ---
FINAL REPORT TECHNIQUE: Thin section axial CT images of the facial bones and sinuses were obtained without contrast. Coronal reformatted images were also obtained.This study was performed with techniques to keep radiation doses as low as reasonably achievable, (ALARA). Individualized dose reduction techniques using automated exposure control or adjustment of mA and/or kV according to the patient''''s size were employed. CLINICAL HISTORY: CONGESTION COMPARISON: None FINDINGS: There is total opacification of the left maxillary sinus. Soft tissue extends into the left nasal cavity with apparent erosion or postoperative change of the uncinate process. This may represent antrochoanal polyp or other soft tissue mass. Opacification of multiple left ethmoid air cells and left frontal sinus. There is mucosal thickening of the right maxillary sinus, several right ethmoid air cells, and left sphenoid sinus. No fluid levels are identified. There has been probable resection of the right uncinate process. There is leftward nasal septal deviation with small left-sided nasal septal spur. No fracture or acute bony abnormality is identified. IMPRESSION: Total opacification left maxillary sinus. Possible antrochoanal polyp or other soft tissue mass in the left nasal cavity. Other sinus disease as above. Reviewed, Interpreted and Dictated by Todd Jeff III, MD Transcribed by Montse Hall Authenticated and [facility]
== END ==
PROVIDERS: PCP Family Medicine; Visit Provider Physician Assistant
DX: R09.81 Nasal congestion (principal)
CPT/HCPCS: 70486

== ENCOUNTER → 2023-04-18 13:44 | Outpatient (CLI) | payer MEDICARE, SELFPAY ==
[2023-04-18 15:04] LABS: INR 2.62 (0.9-1.1); Prothrombin Time 26.8 seconds (10.1-12.5)
== END ==
PROVIDERS: PCP Family Medicine; Visit Provider Internal Medicine
DX: Z79.01 Long term (current) use of anticoagulants (principal); Z51.81 Encounter for therapeutic drug level monitoring
CPT/HCPCS: 36415; 85610

== ENCOUNTER → 2023-05-16 11:36 | Outpatient (CLI) | payer MEDICARE, SELFPAY ==
[2023-05-16 12:10] LABS: Basophils % 0.3 % (0.1-2.0); Eosinophils # 0.1 K/mm3 (0.0-0.4); Eosinophils % 1.2 % (0.1-12.0); Hematocrit 41.9 % (42.0-52.0); Hemoglobin 13.5 g/dL (14.1-18.0); Lymphocytes # 1.5 K/mm3 (0.7-4.5); Lymphocytes % 35.5 % (10-50); Mean Corpuscular HGB Conc 32.2 g/dL (31.8-35.4); Mean Platelet Volume 11.2 fl (7.4-10.4); Monocytes # 0.3 K/mm3 (0.1-1.0); Monocytes % 6.9 % (1.7-9.3); Neutrophils # 2.3 K/mm3 (1.8-7.8); Platelet Count 165 K/mm3 (142-424); Red Blood Count 4.65 M/mm3 (4.60-6.20); Red Cell Distribution Width 14.6 % (11.5-17.5); White Blood Count 4.1 K/mm3 (4.8-10.8)
[2023-05-16 12:21] LABS: Creatinine,Urine Random 145 mg/dL (Not Estab.)
[2023-05-16 12:24] LABS: INR 2.52 (0.9-1.1); Prothrombin Time 25.6 seconds (10.1-12.5)
[2023-05-16 13:09] LABS: Alanine Aminotransferase 29 U/L (12-78); Albumin Level 4.3 g/dl (3.5-5.0); Albumin/Globulin Ratio 1.5 (1.1-1.8); Alkaline Phosphatase 69 U/L (38-126); Anion Gap 14.9 mEq/L (5-15); Aspartate Amino Transferase 34 U/L (17-59); Bilirubin,Total 0.4 mg/dl (0.2-1.3); Blood Urea Nitrogen 31 mg/dl (9-20); Calcium 9.3 mg/dl (8.4-10.2); Carbon Dioxide 25 mmol/L (22.0-30.0); Chloride 107 mmol/L (98-107); Chol/HDL Ratio 3.5 (1-3.5); Cholesterol 181 mg/dl (140-200); Estimated Glomerular Filt Rate 58 ml/min (>60); GFR (African American) 70 ML/MIN (>60); Globulin 2.9 g/dL (1.3-3.2); Glucose 107 mg/dl (74-100); HDL Cholesterol 52 mg/dl (40-60); Iron 82 ug/dL (49-181); Phosphorous 2.8 mg/dl (2.5-4.5); Potassium 3.9 mmoL/L (3.5-5.1); Sodium 143 mmol/L (136-145); Total Protein,Serum 7.2 g/dl (6.3-8.2); Triglycerides 140 mg/dl (30-150); VLDL Cholesterol 28 mg/dL (0-40)
[2023-05-16 13:20] LABS: Direct LDL Cholesterol 87.81 mg/dL (100-129)
[2023-05-16 13:41] LABS: Thyroid Stimulating Hormone 1.31 uIU/mL (0.465-4.68)
== END ==
PROVIDERS: PCP Family Medicine; Visit Provider Internal Medicine
DX: Z79.01 Long term (current) use of anticoagulants (principal); N18.31 Chronic kidney disease, stage 3a; I10 Essential (primary) hypertension; E78.00 Pure hypercholesterolemia, unspecified; D50.9 Iron deficiency anemia, unspecified; Z51.81 Encounter for therapeutic drug level monitoring
CPT/HCPCS: 36415; 80053; 80061; 82043; 82570; 83540; 84100; 84443; 85025; 85610

== ENCOUNTER → 2023-05-25 11:10 | Outpatient (CLI) | payer MEDICARE, SELFPAY ==
--- NOTE | 2023-05-25 11:16 | XR_ITS ---
FINAL REPORT CLINICAL HISTORY: PAIN IN SHOULDER FINDINGS: Left shoulder Three views were obtained. There is no acute fracture or dislocation. There are mild AC and glenohumeral joint degenerative changes. There is a 43 mm calcification superior to the humeral head worrisome for calcific tendinitis. Left subclavian pacer is identified. IMPRESSION: Degenerative changes as detailed above. Findings worrisome for calcific tendinitis. Reviewed, Interpreted and Dictated by Todd Jeff III, MD Transcribed by Elsie Mckeon Authenticated and [facility]
== END ==
PROVIDERS: PCP Family Medicine; Visit Provider Family Medicine
DX: M25.512 Pain in left shoulder (principal)
CPT/HCPCS: 73030

== ENCOUNTER → 2023-06-14 13:43 | Outpatient (CLI) | payer MEDICARE, SELFPAY ==
[2023-06-14 14:50] LABS: INR 2.82 (0.9-1.1); Prothrombin Time 28.5 seconds (10.1-12.5)
== END ==
PROVIDERS: PCP Family Medicine; Visit Provider Internal Medicine
DX: Z79.01 Long term (current) use of anticoagulants (principal); Z51.81 Encounter for therapeutic drug level monitoring
CPT/HCPCS: 36415; 85610

== ENCOUNTER 2023-06-27 11:00 | Outpatient (RCR) | payer MEDICARE, SELFPAY ==
--- NOTE | 2023-05-30 11:12 | HMH.OTOPEV ---
OT Inpatient Evaluation Rehab OT Outpatient Eval Start: 05/30/23 10:38 Freq: Status: Active Protocol: Document 05/30/23 10:38 RMARSROMANA (Rec: 05/30/23 11:12 [facility] [id number]) E-signed By Aimee Olivo, OT Outpatient Therapy Subjective History Subjective History Pt is an 87 year old male who reports to therapy for initial evaluation to left shoulder. Pt reports he has had pain in left shoulder for several years . Pt does not recall a specific injury to shoulder. 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 Pt is left hand dominant. Pt does demonstrate with with decreased AROM and strength at left shoulder. Pt has had an x-ray completed with the following findings: Degenerative changes as detailed above. Findings worrisome for calcific tendinitis. Pt will continue to be seen twice a week in order to address all left shoulder deficits. Chief Complaint Pain,Stiff,Weakness Symptom Type Ache,Throb,Sharp,Dull Symptoms Relieved By Nothing Symptoms Aggravated By Physical Activity,Lifting Prior Functional Limitations None Current Functional Limitations Reaching,Lifting,Housework, Dressing,Driving,Sleeping, Recreation Activity Symptom Description Constant but Variable Level of pain today (0-10) 3 Pain scale - at its best (0-10) 2 Pain scale - at its worst (0-10) 7 Shoulder/Elbow Eval Shoulder Objective Measurements Shoulder ROM Left Shoulder Abduction Active Range of 60 degrees Motion (degrees) Shoulder Flexion Active Range of Motion 60 degrees (degrees) Query Text: Shoulder External Rotation Active Range 20 degrees of Motion (degrees) Shoulder Internal Rotation Active Range 10 degrees of Motion (degrees) pain with active ROM shoulder exam left standard
--- NOTE | 2023-05-30 11:15 | HMH.OTOPEV ---
OT Inpatient Evaluation Rehab OT Outpatient Eval Start: 05/30/23 10:38 Freq: Status: Active Protocol: Document 05/30/23 10:38 RMARSROMANA (Rec: 05/30/23 11:12 [facility] [id number]) E-signed By Aimee Olivo, OT Outpatient Therapy Subjective History Subjective History Pt is an 87 year old male who reports to therapy for initial evaluation to left shoulder. Pt reports he has had pain in left shoulder for several years . Pt does not recall a specific injury to shoulder. 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 Pt is left hand dominant. Pt does demonstrate with with decreased AROM and strength at left shoulder. Pt has had an x-ray completed with the following findings: Degenerative changes as detailed above. Findings worrisome for calcific tendinitis. Pt will continue to be seen twice a week in order to address all left shoulder deficits. Chief Complaint Pain,Stiff,Weakness Symptom Type Ache,Throb,Sharp,Dull Symptoms Relieved By Nothing Symptoms Aggravated By Physical Activity,Lifting Prior Functional Limitations None Current Functional Limitations Reaching,Lifting,Housework, Dressing,Driving,Sleeping, Recreation Activity Symptom Description Constant but Variable Level of pain today (0-10) 3 Pain scale - at its best (0-10) 2 Pain scale - at its worst (0-10) 7 Shoulder/Elbow Eval Shoulder Objective Measurements Shoulder ROM Left Shoulder Abduction Active Range of 60 degrees Motion (degrees) Shoulder Flexion Active Range of Motion 60 degrees (degrees) Query Text: Shoulder External Rotation Active Range 20 degrees of Motion (degrees) Shoulder Internal Rotation Active Range 10 degrees of Motion (degrees) pain with active ROM shoulder exam left standard
--- NOTE | 2023-06-27 11:40 | HMH.RHREAS ---
Rehab Reassessment Rehab OP Re-assessment Start: 05/30/23 10:11 Freq: Status: Active Protocol: Document 06/27/23 11:25 MILLI (Rec: 06/27/23 11:40 MILLI [id number]) E-signed By Aimee Olivo OT Rehab Re-assessment Subjective Subjective It still hurts pretty bad. Objective Objective Notes Pt continues to be seen twice a week in order to address left shoulder deficits. Each session, pt engages in L shoulder AROM, AAROM, and strengthening exercises. Pt also receives PROM manual stretching in all planes at left shoulder flexion, abduction, ER, and IR. Modalities are provided in order to decrease pain/ inlammation. Assessment Progress Assessment Slower Than Expected Assessment Notes Pt is very consistent about attending therapy session. However, pt continues to report 7/10 pain at worst. He does not feel his pain has improved much despite continued therapy. Pt's AROM has improved slightly since starting therapy. Therapist recommeds pt to return back to PCP for re-evaluation and plan to address continued left shoulder pain. Current L shoulder AROM Flex: 120 degrees Abd: 105 degrees ER: 65 degrees IR: [address] goals [address], 3, and 5 Goals Not Met See below Revised Goals ST and 4 LT-5 Plan Plan At this time, pt is going to finish out his 3 scheduled visits with therapy. He is then going to make an appointment with PCP for a follow up due to his continued pain. Frequency of Therapy 2x's a week Duration of therapy 2 more weeks Time and Billing Re-Eval Time 11 Re-Eval Billing Units 1
== END 2023-06-27 11:05 | disposition home or self-care (01) ==
LOC: OT 11:00
PROVIDERS: PCP Family Medicine; Visit Provider Family Medicine
DX: M25.512 Pain in left shoulder (principal); N18.31 Chronic kidney disease, stage 3a
CPT/HCPCS: 97010; 97014; 97110; 97140; 97164; 97166; 97530; G0283

== ENCOUNTER → 2023-07-20 11:40 | Outpatient (CLI) | payer MEDICARE, SELFPAY ==
[2023-07-20 12:31] LABS: INR 2.39 (0.9-1.1); Prothrombin Time 24.4 seconds (10.1-12.5)
== END ==
LOC: ACC 11:41 → LAB 11:44
PROVIDERS: PCP Family Medicine; Visit Provider Internal Medicine
DX: Z79.01 Long term (current) use of anticoagulants (principal)
CPT/HCPCS: 36415; 85610

== ENCOUNTER → 2023-08-18 13:03 | Outpatient (CLI) | payer MEDICARE, SELFPAY ==
[2023-08-18 13:43] LABS: INR 2.06 (0.9-1.1); Prothrombin Time 21.2 seconds (10.1-12.5)
== END ==
PROVIDERS: PCP Family Medicine; Visit Provider Internal Medicine
DX: Z79.01 Long term (current) use of anticoagulants (principal)
CPT/HCPCS: 36415; 85610

== ENCOUNTER → 2023-09-15 13:46 | Outpatient (CLI) | payer MEDICARE, SELFPAY ==
[2023-09-15 14:45] LABS: INR 2.07 (0.9-1.1); Prothrombin Time 21.3 seconds (10.1-12.5)
== END ==
PROVIDERS: PCP Family Medicine; Visit Provider Internal Medicine
DX: Z79.01 Long term (current) use of anticoagulants (principal)
CPT/HCPCS: 36415; 85610

== ENCOUNTER 2023-10-13 11:55 | Outpatient (CLI) | payer MEDICARE, SELFPAY ==
[2023-10-13 12:29] LABS: INR 1.86 (0.9-1.1); Prothrombin Time 19.3 seconds (10.1-12.5)
== END 2023-10-13 23:59 ==
LOC: ACC 11:58 → LAB 12:01
PROVIDERS: PCP Family Medicine; Visit Provider Internal Medicine
DX: Z51.81 Encounter for therapeutic drug level monitoring; Z79.01 Long term (current) use of anticoagulants
CPT/HCPCS: 36415; 85610

== ENCOUNTER 2023-10-26 12:33 | Outpatient (CLI) | payer MEDICARE, SELFPAY ==
[2023-10-26 13:00] LABS: Prothrombin Time 29.2 seconds (10.1-12.5)
== END 2023-10-26 23:59 ==
LOC: LAB 12:35
PROVIDERS: PCP Family Medicine; Visit Provider Internal Medicine
DX: Z79.01 Long term (current) use of anticoagulants (principal)
CPT/HCPCS: 36415; 85610

== ENCOUNTER 2023-11-10 12:23 | Outpatient (CLI) | payer MEDICARE, SELFPAY ==
[2023-11-10 13:04] LABS: INR 2.04 (0.9-1.1)
== END 2023-11-10 23:59 ==
PROVIDERS: PCP Family Medicine; Visit Provider Internal Medicine
DX: Z79.01 Long term (current) use of anticoagulants (principal); Z51.81 Encounter for therapeutic drug level monitoring
CPT/HCPCS: 36415; 85610

== ENCOUNTER 2023-12-08 11:32 | Outpatient (CLI) | payer MEDICARE, SELFPAY ==
[2023-12-08 12:00] LABS: INR 2.99 (0.9-1.1); Prothrombin Time 30.1 seconds (10.1-12.5)
== END 2023-12-08 23:59 ==
PROVIDERS: PCP Family Medicine; Visit Provider Internal Medicine
DX: Z79.01 Long term (current) use of anticoagulants (principal); Z79.899 Other long term (current) drug therapy
CPT/HCPCS: 36415; 85610

== ENCOUNTER 2024-01-05 12:44 | Outpatient (CLI) | payer MEDICARE, SELFPAY ==
[2024-01-05 13:19] LABS: Prothrombin Time 24.5 seconds (10.1-12.5)
== END 2024-01-05 23:59 ==
PROVIDERS: PCP Family Medicine; Visit Provider Internal Medicine
DX: Z79.01 Long term (current) use of anticoagulants (principal)
CPT/HCPCS: 36415; 85610

== ENCOUNTER 2024-02-02 11:35 | Outpatient (CLI) | payer MEDICARE, SELFPAY ==
[2024-02-02 12:10] LABS: INR 2.83 (0.9-1.1); Prothrombin Time 28.6 seconds (10.1-12.5)
== END 2024-02-02 23:59 | disposition home or self-care (01) ==
LOC: LAB 11:36
PROVIDERS: PCP Family Medicine; Visit Provider Internal Medicine
DX: Z51.81 Encounter for therapeutic drug level monitoring; Z79.01 Long term (current) use of anticoagulants
CPT/HCPCS: 36415; 85610

== ENCOUNTER 2024-03-01 10:04 | Outpatient (CLI) | payer MEDICARE, SELFPAY ==
[2024-03-01 10:41] LABS: INR 2.79 (0.9-1.1); Prothrombin Time 28.2 seconds (10.1-12.5)
== END 2024-03-01 23:59 | disposition home or self-care (01) ==
LOC: LAB 10:06
PROVIDERS: PCP Internal Medicine; Visit Provider Family Medicine
DX: Z51.81 Encounter for therapeutic drug level monitoring; Z79.01 Long term (current) use of anticoagulants
CPT/HCPCS: 36415; 85610

== ENCOUNTER 2024-03-29 11:09 | Outpatient (CLI) | payer MEDICARE, SELFPAY ==
[2024-03-29 12:10] LABS: INR 3.98 (0.9-1.1); Prothrombin Time 39.3 seconds (10.1-12.5)
== END 2024-03-29 23:59 | disposition home or self-care (01) ==
LOC: LAB 11:12
PROVIDERS: PCP Family Medicine; Visit Provider Internal Medicine
DX: Z51.81 Encounter for therapeutic drug level monitoring; Z79.01 Long term (current) use of anticoagulants
CPT/HCPCS: 36415; 85610

== ENCOUNTER 2024-04-05 11:24 | Outpatient (CLI) | payer MEDICARE, SELFPAY ==
[2024-04-05 12:21] LABS: INR 1.98 (0.9-1.1); Prothrombin Time 20.7 seconds (10.1-12.5)
== END 2024-04-05 23:59 | disposition home or self-care (01) ==
LOC: LAB 11:26
PROVIDERS: PCP Family Medicine; Visit Provider Internal Medicine
DX: Z51.81 Encounter for therapeutic drug level monitoring; Z79.01 Long term (current) use of anticoagulants
CPT/HCPCS: 36415; 85610

== ENCOUNTER 2024-04-26 10:50 | Outpatient (CLI) | payer MEDICARE, SELFPAY ==
[2024-04-26 11:36] LABS: INR 1.98 (0.9-1.1); Prothrombin Time 20.7 seconds (10.1-12.5)
== END 2024-04-26 23:59 | disposition home or self-care (01) ==
LOC: LAB 10:53
PROVIDERS: PCP Family Medicine; Visit Provider Internal Medicine
DX: Z79.01 Long term (current) use of anticoagulants (principal)
CPT/HCPCS: 36415; 85610

== ENCOUNTER 2024-05-24 12:03 | Outpatient (CLI) | payer MEDICARE, SELFPAY ==
[2024-05-24 13:09] LABS: INR 3.04 (0.9-1.1); Prothrombin Time 30.5 seconds (10.1-12.5)
== END 2024-05-24 23:59 | disposition home or self-care (01) ==
LOC: LAB 12:04
PROVIDERS: PCP Family Medicine; Visit Provider Internal Medicine
DX: Z79.01 Long term (current) use of anticoagulants (principal)
CPT/HCPCS: 36415; 85610

== ENCOUNTER 2024-06-07 11:57 | Outpatient (CLI) | payer MEDICARE, SELFPAY ==
[2024-06-07 13:09] LABS: INR 2.79 (0.9-1.1); Prothrombin Time 28.2 seconds (10.1-12.5)
== END 2024-06-07 23:59 | disposition home or self-care (01) ==
LOC: LAB 12:05
PROVIDERS: PCP Family Medicine; Visit Provider Internal Medicine
DX: Z79.01 Long term (current) use of anticoagulants (principal)
CPT/HCPCS: 36415; 85610

== ENCOUNTER 2024-07-05 13:00 | Outpatient (CLI) | payer MEDICARE, SELFPAY ==
[2024-07-05 13:29] LABS: INR 2.44 (0.9-1.1)
== END 2024-07-05 23:59 | disposition home or self-care (01) ==
LOC: LAB 13:01
PROVIDERS: PCP Family Medicine; Visit Provider Internal Medicine
DX: Z79.01 Long term (current) use of anticoagulants (principal)
CPT/HCPCS: 36415; 85610

== ENCOUNTER 2024-08-01 10:23 | Emergency (ER) | payer MEDICARE, SELFPAY ==
[2024-08-01 10:25] VITALS: BP 142/68; PULSE 69; RESP 12; TEMP 36.9; O2SAT 95; BMI 29.5
--- NOTE | 2024-08-01 10:49 | HMH.EDGENADL ---
Discharge Plan Disposition Patient Disposition: Home, Self-Care Condition: Good Prescriptions Prescriptions: New cephalexin 500 mg capsule 500 mg PO Q8H 7 Days Qty: 21 0RF No Action metoprolol succinate 25 mg tablet extended release 24 hr PO warfarin 5 mg tablet 5 mg PO DAILY aspirin [Adult Aspirin Regimen] 81 mg tablet,delayed release (DR/EC) 81 mg PO DAILY multivitamin [One-A-Day Essential] Tablet 1 tab PO DAILY atorvastatin 20 MG tablet 20 mg PO WEEKLY lisinopril-hydrochlorothiazide 1 EACH tablet 1 each PO DAILY nitroglycerin 0.4 MG tablet, sublingual 0.4 mg sublingual NEEDED PRN (Reason: Chest Pain) Referrals Follow up/Referrals: Be Almodovar MD [Primary Care Provider] - See instructions Todd Pleitez MD [Staff Physician] - See instructions Lee Paul MD [Staff Physician] - See instructions Activity Restrictions/Add. Instructions Additional Instructions/Restrictions: You were evaluated in the emergency department today. At this time, we feel you most likely have a hematoma because aspiration of the fluid collection of your leg demonstrated clotted blood. We have sent it for culture just to be on the safe side to make sure that is not infected. Given that you have some redness and warmth to your leg, we are prescribing you Keflex to treat empirically for cellulitis to be on the safe side. We will let you know if Gram stain comes back positive for anything else. Please follow-up closely with your primary care provider for monitoring of the wound. We have also provided you with general surgery so that you may follow-up with them as needed for assessment of the wound. Return to the emergency department for new or worsening symptoms. Clinical Impressions Clinical Impression: Hematoma of left lower leg, Cellulitis of left leg Instructions Patient Instructions: DI for Cellulitis -- Adult, DI for Hematoma (Bruise) Print Language Print Language: Thai Discharge ED Provider: Olivia Miles General Adult HPI General Chief complaint: Recheck/Abnormal Lab/Rx Stated complaint: ao L leg injury Time Seen by Provider: 08/01/24 10:33 Mode of Arrival: Ambulatory Source of Information: Patient Limitations: No Limitations Description of Symptoms (Recalled from ER Triage Doc. by RN): pt presents to ED with c/o left lower lomeli wound. pt reports that approx 3 weeks ago a trashcan hit his leg. pt reports that wanted him to come get it checked out. pt reports swelling and redness. 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 He states that about 3 to 4 weeks ago he had a trash can with his left lower leg and the redness, swelling, and skin discoloration has been persistent. He notes that he thinks it may be a little bit better, but his was concerned that it felt hot. No fevers, chills, or other concerns noted. He is otherwise been in his usual state of health. Related Data Home Medications ?Medication ?Instructions ?Recorded ?Confirmed atorvastatin 20 mg tablet 20 mg PO WEEKLY Cholesterol 08/03/20 05/03/24 lisinopril 20 1 each PO DAILY Hypertension 08/03/20 05/03/24 mg-hydrochlorothiazide 12.5 mg tablet nitroglycerin 0.4 mg sublingual 0.4 mg sublingual NEEDED PRN 08/03/20 05/03/24 tablet Chest Pain aspirin 81 mg tablet,delayed 81 mg PO DAILY 05/05/23 05/03/24 release (Adult Aspirin Regimen) metoprolol succinate 25 mg mg PO 05/05/23 05/03/24 tablet,extended release 24 hr multivitamin (One-A-Day Essential 1 tab PO DAILY 05/05/23 05/03/24 tablet) warfarin 5 mg tablet 5 mg PO DAILY 05/05/23 05/03/24 Previous Rx's ?Medication ?Instructions ?Recorded cephalexin 500 mg capsule 500 mg PO Q8H 7 days #21 caps 08/01/24 Allergies Allergy/AdvReac Type Severity Reaction Status Date / Time clopidogrel [From Plavix] AdvReac Verified 05/03/24 13:18 [facility] Disclaimer: The information contained in this section may have been updated after the patient was seen, as this information can be updated by other users. Medical History Hypertrophy of nasal turbinates Nasal Polyp Deviated nasal septum Social History Smoking Status: Never smoker alcohol intake: never current occupational status: retired Travel in the last 8 weeks: None household members: spouse caffeine: No Other Medical History Have you received the Flu Vaccine for this season: No Have you received the Pneumonia Vaccine: Yes ROS Obtained: Yes All systems reviewed & no additional complaints except as documented Physical Exam General General appearance: alert and in no apparent distress Head Head exam: atraumatic and normocephalic Eye Eye exam: Present normal appearance, PERRL and EOMI ENT ENT exam: Present normal exam, normal oropharynx, mucous membranes moist and normal external ear exam Neck Neck exam: Present normal inspection, full ROM and trachea midline; Absent tenderness Chest Chest inspection: Present normal inspection and symmetric chest wall rise; Absent tenderness Respiratory Respiratory exam: Present normal lung sounds bilaterally; Absent respiratory distress, wheezes, stridor or accessory muscle use Cardiovascular Cardiovascular exam: Present regular rate and normal rhythm Abdominal Exam Abdominal exam: Present soft; Absent distention, tenderness or guarding Extremities Exam Extremities exam: Present full ROM and normal capillary refill; Absent tenderness or edema Expanded Lower Extremity Exam Left: Leg image: 1. Palpable area of fluctuance with small overlying scab. Minimal localized erythema and warmth with no red streaking away from the area. All compartments soft. Neurovascularly intact distally. Back Exam Back exam: Present normal inspection and full ROM; Absent tenderness Neurological Exam Neurological exam: Present alert, oriented X3, CN II-XII intact and normal gait; Absent motor sensory deficit Psychiatric Psychiatric exam: Present normal affect and normal mood Skin Skin exam: Present warm and dry Medical Decision Making Medical Records Medical records reviewed: Yes I reviewed the patient's medical records. Screening: Per USPSTF and CDC recommendations, given the prevalence of disease in our region, it is our hospital?s policy to screen for HIV and viral Hepatitis for all patients aged 18 and over and those with ongoing risk factors. Celestino Inquiry Pt receiving controlled substance: No Vital Signs: 08/01/24 10:25 Temperature 98.4 F Temperature Source Oral Pulse Rate [Left Radial] 69 Respiratory Rate 12 Blood Pressure [Right Arm] 142/68 H Blood Pressure Mean [Right Arm] 92 02 Sat by Pulse Oximetry 95 Oxygen Delivery Method Room Air Lab Data Lab results reviewed: Yes I reviewed the patient's lab results. Orders (Tests/Meds): ED MEDICATIONS Discontinued Medications Generic Name Dose Route Start Last Admin Trade Name Freq PRN Reason Stop Dose Admin Lidocaine HCl 20 ml 10/23/24 10:51 Lidocaine 1% 20ml Mdv IJ 08/01/24 10:52 ONCE ONE ORDERS Category Date Time Status POCUS Point of Care (ER Only) Stat Exams 08/01/24 10:37 Ordered HIV (1&2) Antibody Rapid Stat Lab 08/01/24 10:41 Ordered Hep C Ab with Reflex to RNA Stat Lab 08/01/24 10:41 Ordered Wound Culture and Gram Stain Stat Micro 08/01/24 10:43 Ordered Medical Decision Narrative: In summary, this patient is a 89-year-old male presenting to the Emergency Department for evaluation of persistent redness, swelling, and warmth to his left lower leg after hitting his lomeli about 3 to 4 weeks ago. Differential diagnoses considered include but are not limited to hematoma, cellulitis, abscess. Ruling out the most morbid conditions drove assessment. It should be noted patient's history includes TAVR on Coumadin which may or may not be at goal therapy. This complicates all aspects of care by increasing patient's risk for morbidity. On exam, the patient is well-appearing. He has small scab to his left anterior lomeli with underlying fluctuance. He has localized redness, warmth. No red streaking away. He is neurovascularly intact distally. Workup included bedside ultrasound which was performed by myself. Please see procedure note for further documentation. The bedside ultrasound demonstrated a small fluid collection in the left anterior lomeli without vascular flow. After shared decision-making with the patient and explanation of risk versus benefit, he would like to defer incision and drainage at this time given he is on Coumadin and has high bleeding risk, but he is agreeable to aspiration of the fluid collection to see if it is just hematoma or could be potentially abscess/infected hematoma. Will send off studies for culture. Patient tolerated ultrasound-guided needle aspiration of this fluid collection very well. This was done sterilely. It revealed partially coagulated blood, consistent with hematoma. No purulence noted. Dressing was applied. Ultimately given his skin changes, will treat empirically with Keflex for possible cellulitis. I did send off culture and Gram stain. At this time, I feel the patient is appropriate for discharge home with instructions for very close follow-up for wound recheck. I provided him with information for PCP follow-up as well as with possible general surgery follow-up. He was discharged with strict return precautions. Procedures Risk/Benefits of Procedure(s) Were Explained: Yes Abscess I/D Site: lower extremity (Prepped sterilely with Betadine. Performed under ultrasound guidance.) Side (if applicable): left Local Anesthetic: lidocaine 1% and with epi Amount of anesthesia used (mL): 1 Technique: needle aspiration Amount of fluid expressed (mL): 10 (Coagulated blood) Irrigation: No Packing used?: none Complications: other (No complications) Limited Ultrasound Findings:: Limited soft tissue ultrasound Indication: Soft tissue swelling and redness Identified structures: Location: Left lower leg Findings: Small fluid collection noted with adjacent cobblestoning Impression: Abscess versus hematoma of the soft tissue Images were saved to permanent archive The study was technically adequate Soft Tissue CPT Codes: CPT Lower Extremity: 82511-73 This study was performed by me, and I personally interpreted all images/videos. Based on my clinical judgement, these images were adequate and did not necessitate further imaging. Critical Care Critical Care Time Critical Care Time: No
[2024-08-01 12:04] VITALS: BP 106/78; PULSE 60; RESP 16; TEMP 36.9; O2SAT 97
== END 2024-08-01 12:05 | disposition home or self-care (01) ==
PROVIDERS: Emergency Provider Emergency Medicine; PCP Family Medicine
DX: L03.116 Cellulitis of left lower limb (principal); S80.12XA Contusion of left lower leg, initial encounter; M79.605 Pain in left leg; W22.8XXA Striking against or struck by other objects, initial encounter; Y93.89 Activity, other specified; Y92.009 Unspecified place in unspecified non-institutional (private) residence as the place of occurrence of the external cause
CPT/HCPCS: 87070; 87205; 99284

== ENCOUNTER 2024-08-02 11:36 | Outpatient (CLI) | payer MEDICARE, SELFPAY ==
[2024-08-02 12:24] LABS: INR 2.32 (0.9-1.1); Prothrombin Time 23.9 seconds (10.1-12.5)
== END 2024-08-02 23:59 | disposition home or self-care (01) ==
LOC: LAB 11:38
PROVIDERS: PCP Family Medicine; Visit Provider Internal Medicine
DX: Z79.01 Long term (current) use of anticoagulants (principal)
CPT/HCPCS: 36415; 85610

== ENCOUNTER 2024-08-06 11:37 | Outpatient (CLI) | payer MEDICARE, SELFPAY ==
[2024-08-06 12:38] LABS: Prothrombin Time 26.5 seconds (10.1-12.5)
== END 2024-08-06 23:59 | disposition home or self-care (01) ==
LOC: LAB 11:44
PROVIDERS: PCP Family Medicine; Visit Provider Internal Medicine
DX: Z79.01 Long term (current) use of anticoagulants (principal)
CPT/HCPCS: 36415; 85610

== ENCOUNTER 2024-08-22 13:32 | Outpatient (CLI) | payer MEDICARE, SELFPAY ==
[2024-08-22 14:27] LABS: INR 5.22 (0.9-1.1); Prothrombin Time 49.6 seconds (10.1-12.5)
== END 2024-08-22 23:59 | disposition home or self-care (01) ==
LOC: LAB 13:36
PROVIDERS: PCP Family Medicine; Visit Provider Internal Medicine
DX: Z79.01 Long term (current) use of anticoagulants (principal)
CPT/HCPCS: 36415; 85610

== ENCOUNTER 2024-08-28 14:14 | Outpatient (CLI) | payer MEDICARE, SELFPAY | END 2024-08-28 23:59 | disposition home or self-care (01) | LOC: LAB 14:15 | PROVIDERS: PCP Family Medicine; Visit Provider Internal Medicine | DX: Z79.01 Long term (current) use of anticoagulants (principal) | CPT/HCPCS: 36415; 85610 ==

== ENCOUNTER 2024-09-11 12:38 | Outpatient (CLI) | payer MEDICARE, SELFPAY ==
[2024-09-11 13:34] LABS: INR 2.29 (0.9-1.1); Prothrombin Time 23.6 seconds (10.1-12.5)
== END 2024-09-11 23:59 | disposition home or self-care (01) ==
LOC: LAB 12:42
PROVIDERS: PCP Internal Medicine; Visit Provider Internal Medicine
DX: Z79.01 Long term (current) use of anticoagulants (principal)
CPT/HCPCS: 36415; 85610

== ENCOUNTER 2024-09-25 13:10 | Outpatient (CLI) | payer MEDICARE, SELFPAY ==
[2024-09-25 13:43] LABS: INR 3.72 (0.9-1.1); Prothrombin Time 36.6 seconds (10.1-12.5)
== END 2024-09-25 23:59 | disposition home or self-care (01) ==
LOC: LAB 13:16
PROVIDERS: PCP Family Medicine; Visit Provider Internal Medicine
DX: Z79.01 Long term (current) use of anticoagulants (principal)
CPT/HCPCS: 36415; 85610

== ENCOUNTER 2024-10-08 10:59 | Outpatient (CLI) | payer MEDICARE, SELFPAY ==
[2024-10-08 11:42] LABS: INR 2.22 (0.9-1.1)
== END 2024-10-08 23:59 | disposition home or self-care (01) ==
LOC: LAB 11:00
PROVIDERS: PCP Family Medicine; Visit Provider Internal Medicine
DX: Z79.01 Long term (current) use of anticoagulants (principal)
CPT/HCPCS: 36415; 85610

== ENCOUNTER 2024-10-23 12:28 | Outpatient (CLI) | payer MEDICARE, SELFPAY ==
[2024-10-23 13:04] LABS: INR 2.44 (0.9-1.1)
== END 2024-10-23 23:59 | disposition home or self-care (01) ==
LOC: LAB 12:30
PROVIDERS: PCP Family Medicine; Visit Provider Internal Medicine
DX: Z79.01 Long term (current) use of anticoagulants (principal)
CPT/HCPCS: 36415; 85610

== ENCOUNTER 2024-11-21 12:14 | Outpatient (CLI) | payer MEDICARE, SELFPAY ==
[2024-11-21 12:56] LABS: INR 2.73 (0.9-1.1); Prothrombin Time 27.7 seconds (10.1-12.5)
== END 2024-11-21 23:59 | disposition home or self-care (01) ==
LOC: ACC 12:16 → LAB 12:18
PROVIDERS: PCP Family Medicine; Visit Provider Internal Medicine
DX: Z79.01 Long term (current) use of anticoagulants (principal)
CPT/HCPCS: 36415; 85610

== ENCOUNTER 2024-12-20 12:14 | Outpatient (CLI) | payer MEDICARE, SELFPAY ==
[2024-12-20 12:46] LABS: INR 1.91 (0.9-1.1); Prothrombin Time 20.1 seconds (10.1-12.5)
== END 2024-12-20 23:59 | disposition home or self-care (01) ==
LOC: LAB 12:18
PROVIDERS: PCP Family Medicine; Visit Provider Internal Medicine
DX: Z79.01 Long term (current) use of anticoagulants (principal)
CPT/HCPCS: 36415; 85610

== ENCOUNTER 2025-01-03 12:39 | Outpatient (CLI) | payer MEDICARE, SELFPAY ==
[2025-01-03 13:11] LABS: INR 3.03 (0.9-1.1); Prothrombin Time 30.4 seconds (10.1-12.5)
== END 2025-01-03 23:59 | disposition home or self-care (01) ==
LOC: LAB 12:41
PROVIDERS: PCP Family Medicine; Visit Provider Internal Medicine
DX: Z79.01 Long term (current) use of anticoagulants (principal)
CPT/HCPCS: 36415; 85610

== ENCOUNTER 2025-01-17 11:51 | Outpatient (CLI) | payer MEDICARE, SELFPAY ==
[2025-01-17 12:24] LABS: INR 2.73 (0.9-1.1); Prothrombin Time 27.7 seconds (10.1-12.5)
== END 2025-01-17 23:59 | disposition home or self-care (01) ==
LOC: LAB 11:52
PROVIDERS: PCP Family Medicine; Visit Provider Internal Medicine
DX: Z79.01 Long term (current) use of anticoagulants (principal)
CPT/HCPCS: 36415; 85610

== ENCOUNTER 2025-02-14 10:42 | Outpatient (CLI) | payer MEDICARE, SELFPAY ==
[2025-02-14 11:17] LABS: INR 3.67 (0.9-1.1); Prothrombin Time 36.1 seconds (10.1-12.5)
== END 2025-02-14 23:59 | disposition home or self-care (01) ==
LOC: LAB 10:45
PROVIDERS: PCP Family Medicine; Visit Provider Internal Medicine
DX: Z79.01 Long term (current) use of anticoagulants (principal)
CPT/HCPCS: 36415; 85610

== ENCOUNTER 2025-02-28 11:41 | Outpatient (CLI) | payer MEDICARE, SELFPAY ==
[2025-02-28 12:12] LABS: INR 2.85 (0.9-1.1); Prothrombin Time 29.3 seconds (10.1-12.5)
== END 2025-02-28 23:59 | disposition home or self-care (01) ==
LOC: LAB 11:43
PROVIDERS: PCP Family Medicine; Visit Provider Internal Medicine
DX: Z79.01 Long term (current) use of anticoagulants (principal)
CPT/HCPCS: 36415; 85610

== ENCOUNTER 2025-03-28 10:33 | Outpatient (CLI) | payer MEDICARE, SELFPAY ==
--- OUTSIDE RECORDS SUMMARY | 2024-10-19 06:30 | XMS_ITS ---
Author Organization [facility] Address [facility] [address] [place] [phone] Care Team Providers Care Tool Maker Name Role Phone Alexei Almodovar Primary Care Provider ALEXEI ALMODOVAR Unavailable Unavailable REASON FOR VISIT flu vaccine Encounters Encounter Location Date Provider Diagnosis [facility] [address] [place] [phone] 10/19/2024 Alexei Almodovar Plan Of Treatment No Information Progress Notes * SHIRA GARZADOB:1935 ( 89 yo M)Acc No.[id number]:10/19/2024 Patient: SHIRA LYONS Provider: Florinda Almodovar M.D. :1935 A ge:89 Y S ex:Male Date:10/19/2024 Address:[address] [place], [place] [id number] Subjective: * Chief Complaints: * 1 . Flu vaccine. * Medical History: Objective: * Vitals: Assessment: Plan: * Treatment: * Billing Information: * Visit Code: * Procedure Codes: * Electronic signature of Kia Almodovar MD on 03/28/2025 at 10:44 AM EDT Sign off status: Pending * Provider: Florinda Almodovar M.D. Date: 0 10/19/2024 Generated for Syi ng/Falakeshag/eTransmitting on: 0 03/28/2025 10:44 AM EDT
--- OUTSIDE RECORDS SUMMARY | 2024-11-14 06:45 | XMS_ITS ---
Author Organization [facility] Address 12[address] [facility] [address] [place] [phone] Care Team Providers Care Chisel Trimmer Name Role Phone Alexei Almodovar Primary Care Provider ALEXEI ALMODOVAR Unavailable Unavailable REASON FOR VISIT flu shot Medications Medication SIG (Take, Route, Frequency, Duration) Notes Start Date End Date Status Colestipol HCl 1 GM 1 tablet Orally Once a day for 30 day(s) 08/23/2024 Active Warfarin Sodium 5 MG 1 tab(s) orally onc e a day Active Aspirin 81 MG 1 tab(s) orally once a day for 30 day(s) Active Atorvastatin Calcium 20 MG 1 tab(s) oral ly once a day Active Lisinopril 5 MG 1 tab(s) orally once a day Active Metoprolol Succinate ER 25 MG 1 tab(s) orally once a day Active Immunizations Vaccine Route Administration Date Status Comme nts Fluzone High Dose (65yr and older) IM Intramuscular 11/14/2024 Administered Encounters Encounter Location Date Provider Diagnosis [facility] [address] [facility] [address] [place] [phone] 11/14/2024 Alexei Almodovar Encounter for immunization Z23 Assessments Encounter Date Diagnosis (ICD Code) Assessment Notes Treatment Notes Treatment Clinical Notes Section Notes 11/14/2024 Encounter for immunization (ICD-10 - Z23) Plan Of Treatment No Information Progress Notes * ALEXANDRESHIRA EnamoradoDOB:1935 ( 89 yo M)Acc No.[id number]:11/14/2024 Patient: Kenny VERONIKASHIRA Enamorado Provider: Florinda Almodovar M.D. :1935 A ge:89 Y S ex:Male Date:11/14/2024 Address:[address] [place] [address] [id number] Subjective: * Chief Complaints: * 1 . [...] on Left Deltoid (Encounter for immunization) * Billing Information: * Visit Code: * Procedure Codes: * Electronic signature of Kia Almodovar MD on 03/28/2025 at 10:43 AM EDT Sign off status: Pending * Provider: Florinda Almodovar M.D. Date: 0 11/14/2024 Generated for Teodora rivera/Nita/Charles on: 0 03/28/2025 10:43 AM EDT
--- OUTSIDE RECORDS SUMMARY | 2024-12-13 12:00 | XMS_ITS ---
Author Organization [facility] Address [facility]10 [facility] [address] [place] [id number] Care Team Providers Care In Home Aide Name Role Phone Alexei Almodovar Primary Care Provider [phone] ALEXEI ALMODOVAR Unavailable Unavailable Romana Thompson Unavailable [phone] Allergies Allergen (clinical drug ingredient) Drug/Non Drug [...] once a day for 30 day(s) Active Metoprolol Succinate ER 25 MG 1 tab(s) orally once a day Active Lisinopril 5 MG 1 tab(s) orally once a day Active Colestipol HCl 1 GM 1 tablet Orally Once a day for 30 day(s) 08/23/2024 Active Problems Problem Type [...] 12/13/2024 Encounters Encounter Location Date Provider Diagnosis [facility] [address] [place] [id number] 12/13/2024 Romana Thompson Aortic valve replace d [...] Reason: Progress Notes * SHIRA GARZADOB:1935 ( 89 yo M)Acc No.[id number]:12/13/2024 Progress Notes Patient: SHIRA LYONS Provider: Romana Thompson M.D. :1935 A ge:89 Y S ex:Male Date:12/13/2024 Address:[address] [place] [address] [id number] Pcp:Alexei Almodovar Subjective: * Chief Complaints: * [...] age 85. Alcohol: no. 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 * Medications: T aking Aspirin 81 [...] G 2211 Complex e/[place], [address] [place], [address] PROTHROMBIN TIME, Modifiers: QW , 26313 CAPILLARY BLOOD DRAW, 77616 CBC WITH AUTO DIFF, 3074F SYST BP LT 130 MM HG, 3078F DIAST BP < 80 MM HG * Follow Up: w ith Coumadin Clinic * Billing Information: * Visit Code: 91528 Office Visit, Est Pt., Level 3. * Procedure Codes: G2211 Complex e/[place]. [address] [place]. [address] PROTHROMBIN TIME. Modifiers: QW 32725 CAPILLARY BLOOD DRAW. 58421 CBC WITH AUTO DIFF. 3074F SYST BP LT 130 MM HG. 3078F DIAST BP < 80 MM HG. * Electronic signature of Romana Thompson MD on 03/28/2025 at 10:41 AM EDT Sign off status: Pending * Provider: Romana Thompson M.D. Date: 0 12/13/2024 Generated for Syi nicole/Nita/eTransmitting on: 0 03/28/2025 10:41 AM EDT History and Physical Notes * [...]
--- OUTSIDE RECORDS SUMMARY | 2025-03-28 10:41 | XMS_ITS | Encounter Summary ---
Author Organization [employer] Address [address] [place] [address] Care Team Providers Care Information Technology Audit Manager Name Role Phone Unavailable Primary Care Provider Unavailabl e Encounter Details Date Type Department Care Team (Late st Contact Info) Description 11/05/2019 Transcribed Document [facility] [place] Family Medicine [address] [place] [address] ProviderPrasanth MD [facility] [place], [place] [address] Social History Tobacco Use Types Packs/Day Years Used Date Smoking Tobacco: Never Assessed Sex and Gender Information Value Date Recorded Sex Assigned at Not on file Legal Sex Male 6:49 PM CDT Gender Identity Not on file Sexual Orientation Not on file documented as of this encounter Miscellaneous Notes * Cerner Conversion Note - Historical ProviderMD - 11/05/2019 5:00 PM PIPE FITTER WELDING Chart Check - Review Order Profile Entered On: 11/05/2019 17:41 EST Performed On: 11/05/2019 17:00 EST by MARIBELL MIMS, RN Chart Check Powerplans Initiated/Discontinued as Appropriate : Yes MARIBELL MIMS RN - 11/05/2019 17:41 EST Electronically signed by Nikita [facility] Conversion Dental Assistant Instructor Cerner at 01/26/2023 8:55 PM CDT documented in this encounter Plan of Treatment Not on file documented as of this encounter Visit Diagnoses Not on filedocumented in this encounter
--- OUTSIDE RECORDS SUMMARY | 2025-03-28 10:41 | XMS_ITS | Encounter Summary ---
Author Organization [employer] Address [address] [place] [address] Care Team Providers Care Advance Agent Name Role Phone Unavailable Primary Care Provider Unavailabl e Encounter Details Date Type Department Care Team (Late st Contact Info) Description 11/05/2019 Transcribed Document [facility] [place] [facility] [address] [place] [address] ProviderPrasanth MD [address] [place] [id number] Social History Tobacco Use Types Packs/Day Years Used Date Smoking Tobacco: Never Assessed Sex and Gender Information Value Date Recorded Sex Assigned at Not on file Legal Sex Male 6:49 PM CDT Gender Identity Not on file Sexual Orientation Not on file documented as of this encounter Miscellaneous Notes * Cerner Conversion Note - Historical ProviderMD - 11/05/2019 3:27 PM OBSTETRICS NURSE Treatment Intervention, PT Entered On: 11/07/2019 15:45 EST Performed On: 11/07/2019 10:03 EST by CJ WHEELER PTA General Information, PT Visit Type, PT : Treatment Note Patient Orders : Order Date Order Ordering 11/05/2019 09:53 Consult to Physical Therapy Ordered By: QUINN SALVADOR MD-INT 11/05/2019 15:27 PT Additional Treatment Ordered By: PB BROWNLEE, PT Active Diagnoses : 11/04/2019 12:00 Abnormal levels of other serum enzymes 11/04/2019 12:00 Bradycardia, unspecified 11/04/2019 12:00 Dizziness 11/04/2019 12:00 Dizziness and giddiness 11/04/2019 12:00 Laceration without foreign body of right elbow, initial encounter 11/04/2019 12:00 Traumatic subdural hemorrhage with loss of consciousness of unspecified duration, initial encounter 11/04/2019 12:00 Unspecified fall, initial encounter 11/04/2019 12:00 Unspecified injury of head, initial encounter Therapy Diagnosis, PT : impaired mobility due to dizziness and irregular heartbeat Admission Date : 11/04/2019 21:19 Personal Devices : Personal Devices Glasses Assistive Devices : Assistive Devices No Devices Recorded CJ WHEELER PTA - 11/07/2019 15:42 EST General Status Patient Received Status : Supine in bed Treatment Start Time : 11/07/2019 9:45 EST Patient Left Status : Up in chair Treatment End Time : 11/07/2019 10:03 EST Treatment Time : 18 Minute(s) CJ WHEELER PTA - 11/07/2019 15:42 EST Functional Mobility Mobility Grid Bed Scooting : Supervision/set-up Supine to Sit : Supervision/set-up Sit to Stand : Supervision/set-up Stand to Sit : Supervision/set-up CJ WHEELER PTA - 11/07/2019 15:42 EST Gait Training/Assessment, PT Weight Bearing Status : Full Gait Assistance Level : Assist, minimal Walking Distance : 300' Ambulatory Devices : Gait belt, Walker, front wheel Left Lower Gait Deviation : Marie, decreased Right Lower Gait Deviation : Marie, decreased Gait Training Comment : pt amb with front wheeled walker and cga for balance. pt demonstrated no lob and good endurance today CJ WHEELER PTA - 11/07/2019 15:42 EST Plan of Care, PT PT Tx Plan/Goals Established w Patient : Yes PT Frequency Rehab : Daily CJ WHEELER PTA - 11/07/2019 15:42 EST Longterm Goals Mobility/Bed Mobility LTG PT Grid Goal #1 Goal #2 Activity : Supine to sit Sit to stand Assist : Independent, complete Independent, modified Equipment : Rail, bed Belt, gait, Walker, front wheel Date to Meet : 11/19/2019 EST 11/19/2019 EST Goal Status : Progressing, continue Progressing, continue CJ WHEELER PTA - 11/07/2019 15:42 EST CJ WHEELER PTA - 11/07/2019 15:42 EST Ambulation LTG Grid Goal #1 Device : Walker, front wheel Distance : 375 feet Assist : Supervision or set-up Date to Meet : 11/19/2019 EST Goal Status : Progressing, continue CJ WHEELER PTA - 11/07/2019 15:42 EST Treatment Note Subjective Comment : pt agreeable to treatment. pt states he is going for pacemaker placement and nsg confirm. pt will required md reorder to continue treatment if pacemake placment completed Assessment : pt tolerated amb well Plan for Treatment : pt will required md reorder to continue treatment if pacemake placment completed CJ WHEELER, LEONIE - 11/07/2019 15:[address] [facility] PT Charges TYPE BAR AND SEGMENT ASSEMBLER PT Therap. Exercise 15 min-TYPE BAR AND SEGMENT ASSEMBLER : 1 CJ WHEELER PTA - 11/07/2019 15:42 EST Electronically signed by [facility], [facility] Conversion Boilerhouse Mechanic Cerner at 01/26/2023 9:10 PM CDT documented in this encounter Plan of Treatment Not on file documented as of this encounter Visit Diagnoses Not on filedocumented in this encounter
--- OUTSIDE RECORDS SUMMARY | 2025-03-28 10:41 | XMS_ITS | Encounter Summary ---
Author Organization [employer] Address [address] [place] [address] Care Team Providers Care Buggy Ladle Tender Name Role Phone Unavailable Primary Care Provider Unavailabl e Encounter Details Date Type Department Care Team (Late st Contact Info) Description 11/04/2019 Transcribed Document [facility] [place] Family Medicine [address] [place] [address] ProviderPrasanth MD [facility] [place] [address] Social History Tobacco Use Types Packs/Day Years Used Date Smoking Tobacco: Never Assessed Sex and Gender Information Value Date Recorded Sex Assigned at Not on file Legal Sex Male 6:49 PM CDT Gender Identity Not on file Sexual Orientation Not on file documented as of this encounter Miscellaneous Notes * Cerner Conversion Note - Historical ProviderMD - 11/04/2019 11:15 PM PAPER SHEETER ED Discharge Entered On: 11/04/2019 23:36 EST Performed On: 11/04/2019 23:15 EST by Loraine Oropeza RN Discharge Process Patient Disposition : Admit/Observe Personal Belongings With Patient : Yes Teaching Evaluation : Verbalizes understanding IV Discontinued : No Nursing Documentation Completed : Yes Loraine Oropeza RN - 11/04/2019 23:34 EST Admission, ED Nurse Report Accepted By : Called report to Ana SOLIS `Nurse Report (Hand Off) : Called Accompanied By, Discharge : Other: RN for transport Mode Of Departure : Loraine Valdes RN - 11/04/2019 23:34 EST Electronically signed by Nikita [facility] Conversion Passementerie Worker Cerner at 01/26/2023 9:09 PM CDT documented in this encounter Plan of Treatment Not on file documented as of this encounter Visit Diagnoses Not on filedocumented in this encounter
--- OUTSIDE RECORDS SUMMARY | 2025-03-28 10:41 | XMS_ITS | Encounter Summary ---
Author Organization [employer] Address [address] [place] [address] Care Team Providers Care Stapler Hand Name Role Phone Unavailable Primary Care Provider Unavailabl e Encounter Details Date Type Department Care Team (Late st Contact Info) Description 11/05/2019 Transcribed Document [facility] [place] Family Medicine [address] [place] [address] ProviderPrasanth MD [address] [place] [address] Social History Tobacco Use Types Packs/Day Years Used Date Smoking Tobacco: Never Assessed Sex and Gender Information Value Date Recorded Sex Assigned at Not on file Legal Sex Male 6:49 PM CDT Gender Identity Not on file Sexual Orientation Not on file documented as of this encounter Miscellaneous Notes * Cerner Conversion Note - Historical ProviderMD - 11/05/2019 8:00 AM SUPERVISOR LIQUEFACTION Consult Phone Call Documentation Entered On: 11/05/2019 8:22 EST Performed On: 11/05/2019 8:00 EST by Iris Banerjee, [facility] Phone Call for Consults Consult Phone Call/Page Attempt : First call Consult Reason : bradycardia and 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
--- OUTSIDE RECORDS SUMMARY | 2025-03-28 10:41 | XMS_ITS | Encounter Summary ---
Author Organization [employer] Address [address] [place] [address] Care Team Providers Care Credit Collections Specialist Name Role Phone Unavailable Primary Care Provider Unavailabl e Encounter Details Date Type Department Care Team (Late st Contact Info) Description 11/06/2019 Transcribed Document [facility] [place] Family Medicine [address] [place] [address] ProviderPrasanth MD [facility] [place], [place] [address] Social History Tobacco Use Types Packs/Day Years Used Date Smoking Tobacco: Never Assessed Sex and Gender Information Value Date Recorded Sex Assigned at Not on file Legal Sex Male 6:49 PM CDT Gender Identity Not on file Sexual Orientation Not on file documented as of this encounter Miscellaneous Notes * Cerner Conversion Note - Historical ProviderMD - 11/06/2019 12:56 PM PLASTIC JIG AND FIXTURE BUILDER Education-Surgery Entered On: 11/06/2019 16:00 EST Performed On: 11/06/2019 12:56 EST by Lavonne Funez RN Teaching/Learning Assessment Barriers To Learning : None evident Individuals Taught : Patient Readiness to Learn : Cooperative Highest Level of Education : University degree(s) Baseline Knowledge of Topic : Good Readiness to Learn : Explanation Learning Style Preferences Patient : Verbal explanation Learning Style Preferences Family : Verbal explanation Lavonne Funez RN - 11/06/2019 16:00 EST documented in this encounter Plan of Treatment Not on file documented as of this encounter Visit Diagnoses Not on filedocumented in this encounter
--- OUTSIDE RECORDS SUMMARY | 2025-03-28 10:41 | XMS_ITS | Encounter Summary ---
Author Organization [employer] Address [address] [place] [address] Care Team Providers Care Machine Castings Plasterer Name Role Phone Unavailable Primary Care Provider Unavailabl e Encounter Details Date Type Department Care Team (Late st Contact Info) Description 09/25/2019 Transcribed Document [facility] [place] [address] [place] [address] ProviderPrasanth MD [facility] [place] [address] Social History Tobacco Use Types Packs/Day Years Used Date Smoking Tobacco: Never Assessed Sex and Gender Information Value Date Recorded Sex Assigned at Not on file Legal Sex Male 6:49 PM CDT Gender Identity Not on file Sexual Orientation Not on file documented as of this encounter Miscellaneous Notes * Cerner Conversion Note - Historical ProviderMD - 09/25/2019 10:53 PM PADDING GLUER Event Note Entered On: 09/25/2019 22:54 EST Performed On: 09/25/2019 22:53 EST by Phyllis Singletary RN Event Note Description of Event : Transferred patient to [facility] after giving report by phone to Alphonse SOLIS. Phyllis Singletary RN - 09/25/2019 22:53 EST documented in this encounter Plan of Treatment Not on file documented as of this encounter Visit Diagnoses Not on filedocumented in this encounter
--- OUTSIDE RECORDS SUMMARY | 2025-03-28 10:41 | XMS_ITS | Encounter Summary ---
Author Organization [employer] Address [address] [place] [address] Care Team Providers Care Pe Manager Name Role Phone Unavailable Primary Care Provider Unavailabl e Encounter Details Date Type Department Care Team (Late st Contact Info) Description 11/04/2019 Transcribed Document [facility] Neurology - [address] [place] [address] Titus Rasheed Jr., MD [facility] [place] [id number] Social History Tobacco Use Types Packs/Day Years Used Date Smoking Tobacco: Never Assessed Sex and Gender Information Value Date Recorded Sex Assigned at Not on file Legal Sex Male 6:49 PM CDT Gender Identity Not on file Sexual Orientation Not on file documented as of this encounter Miscellaneous Notes * Cerner Conversion Note - Titus Rasheed Jr., MD - 11/04/2019 11:19 PM EST DATE OF CONSULTATION: 11/04/2019 CHIEF COMPLAINT: 1. Fall. 2. Acute subdural hematoma. BRIEF HISTORY: Mr. Cormier is 84 years old, who apparently fell this morning around 3:00 a.m. and 11:00 a.m. Family member or friends asked him to come to the emergency room. An acute subdural hematoma was noted. He received an aspirate early on in the emergency room. States he is concerned it is a cardiac event. He takes Plavix. Dr. Ambrosio, the hospitalist admitting him, states that he has not been taking his Eliquis for about a week. He recently underwent an aortic valve replacement on October 30. He has had lightheadedness and that is why he fell. Denied headache today. He had an abrasion on the top of the head and a subcutaneous hematoma in the right temporal area. He denies any neck pain or back pain. REVIEW OF SYSTEMS: Reviewed in the ER chart. PAST MEDICAL HISTORY: Status post TAVR, coronary artery bypass grafting, ingrown hair cyst removed from back, colonoscopy, vasectomy. SOCIAL HISTORY: He does not smoke or does not drink. He is . FAMILY HISTORY: Negative. PHYSICAL EXAMINATION: GENERAL: He is lying in bed. VITAL SIGNS: His blood pressure was . Vital signs are stable otherwise. He is saturating 92% on room air. His heart rate is in the 40s and 50s. HEENT: He has an abrasion on the top of the scalp in the right temporal area. NEUROLOGIC: His mental status is normal. He is awake, alert, oriented. Pupils are symmetric at 4 mm. Ocular motility is full. Face is symmetric. He moves arms and legs with no drift. He has good strength in the arms and legs. He has full range of motion. NECK: No tenderness. ABDOMEN: Belly is protuberant, soft. PSYCH: Affect appropriate. He is very pleasant. DIAGNOSTIC STUDIES: A CT scan was performed earlier today. He has an acute subdural hematoma in the right posterior advent area, just above the petrous bone. It is a few millimeter in thickness. There is no shift or mass effect. There is probably a small tentorial subdural component as well. ASSESSMENT: Mr. Cormier is 84 years old. He fell earlier this morning. He has an acute right-sided temporal subdural hematoma. This is very small. He is anticoagulated with a potent antiplatelet. His blood pressure was quite elevated. From a neurosurgical standpoint, it would be ideal to reverse his antiplatelet agents with a platelet transfusion. I would also keep the systolic blood pressure less than 150. For some reason, I would strongly recommend doing these things unless there is a strong contraindication from a cardiology standpoint, not to reverse the antiplatelet or control his blood pressure. I talked to Dr. Beckman in the emergency room, Dr. Ambrosio, who is going to admit him. Dr. Ambrosio was going to call the cardiology service. I talked to the nursing staff. I talked to the patient in detail about the plan and the reason why we needed to perform these measures. The risk of the subdural hematoma enlarging is pretty low at this point, but certainly I think there is a higher chance that it could turn into a significant problem if the above medical interventions are not undertaken, we will repeat a CT scan in the morning. He is to be admitted to the ICU. The patient was on board with the plan. No family was present when I saw him. /[id number] Titus Rasheed Jr, MD RDO/AQ / RDO / MODL /[id number] documented in this encounter Plan of Treatment Not on file documented as of this encounter Visit Diagnoses Not on filedocumented in this encounter
--- OUTSIDE RECORDS SUMMARY | 2025-03-28 10:41 | XMS_ITS | Encounter Summary ---
Author Organization [employer] Address [address] [place] [address] Care Team Providers Care Director Foundation Name Role Phone Unavailable Primary Care Provider Unavailabl e Encounter Details Date Type Department Care Team (Late st Contact Info) Description 11/05/2019 Transcribed Document [facility] [place] [address] [place] [address] ProviderPrasanth MD [facility] [place] [address] Social History Tobacco Use Types Packs/Day Years Used Date Smoking Tobacco: Never Assessed Sex and Gender Information Value Date Recorded Sex Assigned at Not on file Legal Sex Male 6:49 PM CDT Gender Identity Not on file Sexual Orientation Not on file documented as of this encounter Miscellaneous Notes * Cerner Conversion Note - Historical ProviderMD - 11/05/2019 3:20 AM DEMONSTRATOR SEWING TECHNIQUES Height and Weight, Routine Entered On: 11/05/2019 3:21 EST Performed On: 11/05/2019 3:20 EST by Sal Hurt, [facility] Rep[facility] Unit Coord Height and Weight, Routine Routine Weight Source : Bed scale Routine Weight Entry Format : Metric Routine Weight, Kilograms : 93.1 kg(Converted to: 205 lb 4 oz) Routine Weight Calculation : 93.1 kg Height Source : Stated Height Entry Format : [place] Height, Feet : 5 ft Height, Inches : 9 Inch Clinical Height : 175.26 cm Body Surface Area (BSA), Routine : 2.09 m2 Body Mass Index (BMI), Routine : 30.31 kg/m2 Sal Hurt, Preparer [facility] And Repairs[facility] Unit Coord - 11/05/2019 3:20 EST documented in this encounter Plan of Treatment Not on file documented as of this encounter Visit Diagnoses Not on filedocumented in this encounter
--- OUTSIDE RECORDS SUMMARY | 2025-03-28 10:41 | XMS_ITS | Encounter Summary ---
Author Organization [employer] Address [address] [place] [address] Care Team Providers Care Pot Tender Name Role Phone Unavailable Primary Care Provider Unavailabl e Encounter Details Date Type Department Care Team (Late st Contact Info) Description 11/05/2019 Transcribed Document [facility] [place] Family Medicine [address] [place] [address] ProviderPrasanth MD [facility] [place] [id number] Social History Tobacco Use Types Packs/Day Years Used Date Smoking Tobacco: Never Assessed Sex and Gender Information Value Date Recorded Sex Assigned at Not on file Legal Sex Male 6:49 PM CDT Gender Identity Not on file Sexual Orientation Not on file documented as of this encounter Miscellaneous Notes * Cerner Conversion Note - Prasanth ProviderMD - 11/05/2019 5:54 PM DIETITIAN CONSULTANT On Going Discharge Planning Entered On: 11/05/2019 17:54 EST Performed On: 11/05/2019 17:54 EST by ROSANA CALLEJAS RN-Business Functional AnalystPeanut Sorter Progress Note Discharge Arrangements : Patient Post-Acute Information Patient Name: SHIRA GARZA HORACIO Gender: Male : 37 Age: 84 Years No Post-Acute Placement(s) Listed No Post-Acute Service(s) Listed No Curaspan Referral(s) Listed Discharge Plan Comment : home w/ ROSANA CALLEJAS RN-Business Functional Analyst - 11/05/2019 17:54 EST Narrative Progress Note Narrative Progress Note : 3rd deg Heart block, rate 30-60's CM met w/pt - he lives home w/. IND-ADLs, Drives, Denies having O2 or DME. states he goes to workout 3x/wk. he is very talkative and in good spirits. Pt is to have a PM placed tomorrow. informed him of CM services and we will follow and assist w/needs as approp. ROSANA CALLEJAS, RN-Business Functional Analyst - 11/05/2019 17:54 EST Electronically signed by [facility] Conversion Research & Analytics Manager Cerner at 01/26/2023 8:50 PM CDT documented in this encounter Plan of Treatment Not on file documented as of this encounter Visit Diagnoses Not on filedocumented in this encounter
--- OUTSIDE RECORDS SUMMARY | 2025-03-28 10:41 | XMS_ITS | Encounter Summary ---
Author Organization [employer] Address [address] [place] [address] Care Team Providers Care Box Brander Name Role Phone Unavailable Primary Care Provider Unavailabl e Encounter Details Date Type Department Care Team (Late st Contact Info) Description 11/05/2019 Transcribed Document [facility] [address] [place] [address] ProviderPrasanth MD [facility] [place], [place] [id number] Social History Tobacco Use Types Packs/Day Years Used Date Smoking Tobacco: Never Assessed Sex and Gender Information Value Date Recorded Sex Assigned at Not on file Legal Sex Male 6:49 PM CDT Gender Identity Not on file Sexual Orientation Not on file documented as of this encounter Miscellaneous Notes * Cerner Conversion Note - Prasanth ProviderMD - 11/05/2019 5:51 PM LABORATORY ADMINISTRATIVE DIRECTOR Initial Discharge Planning Entered On: 11/05/2019 17:54 EST Performed On: 11/05/2019 17:51 EST by ROSANA CALLEJAS RN-Manager Contract Initial Assessment I Previously Documented Living Environment : No qualifying data available. Living Situation : Home Patient Lives With : Spouse Is the Patient a Caregiver at Home? : No Emergency Contact #1 : Rosa Elena Bustamante Emergency Contact #1 Emergency Contact #1 Relationship : Spouse Emergency Contact #2 : NA Emergency Contact #2 Phone Number : NA Emergency Contact #2 Relationship : NA Enter Doctors Name : Marcelino Caldera Does Patient have PCP Listed? : Yes Medical Durable Power of Fuel Pilot Engineer Name : Legal Guardian : No ROSANA CALLEJAS RN-Manager Contract - 11/05/2019 17:51 EST Initial Assessment II Sensory and Motor Deficits : None Deficit Description : glasses Current Home Treatments and Equipment : None Services and Community Resources Addl Comments : Workout @ local Facility [employer] 3x/wk Does the Patient have a Floor to SNF Benefit? : Yes ROSANA CALLEJAS RN-Manager Contract - 11/05/2019 17:51 EST Discharge Needs I Anticipated Discharge To, CM : Home independently Current Home Treatment/Equipment : Current Home Treatment/Equipment No qualifying data available. Documentation Status Complete : Yes ROSANA CALLEJAS RN-Manager Contract - 11/05/2019 17:51 EST Discharge Needs II Professional Skilled Services : Professional Skilled Services No qualifying data available. Needs Assistance with Transportation : No ROSANA CALLEJAS RN-Manager Contract - 11/05/2019 17:51 EST Narrative Note Narrative Note : 3rd deg Heart block, rate 30-60's CM met w/pt - he lives home w/. IND-ADLs, Drives, Denies having O2 or DME. states he goes to workout 3x/wk. he is very talkative and in good spirits. Pt is to have a PM placed tomorrow. informed him of CM services and we will follow and assist w/needs as approp. ROSANA CALLEJAS RN-Manager Contract - 11/05/2019 17:51 EST documented in this encounter Plan of Treatment Not on file documented as of this encounter Visit Diagnoses Not on filedocumented in this encounter
--- OUTSIDE RECORDS SUMMARY | 2025-03-28 10:41 | XMS_ITS | Encounter Summary ---
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 Name Role Phone Unavailable Primary Care Provider Unavailabl e Encounter Details Date Type Department Care Team (Late st Contact Info) Description 11/05/2019 Transcribed Document [facility] [place] Family Medicine [facility] [place] [address] ProviderPrasanth MD [address] [place] [address] Social History Tobacco Use Types Packs/Day Years Used Date Smoking Tobacco: Never Assessed Sex and Gender Information Value Date Recorded Sex Assigned at Not on file Legal Sex Male 6:49 PM CDT Gender Identity Not on file Sexual Orientation Not on file documented as of this encounter Miscellaneous Notes * Cerner Conversion Note - Historical ProviderMD - 11/05/2019 9:53 AM AEROSPACE QUALITY ENGINEER Evaluation, Occupational Therapy Entered On: 11/06/2019 14:25 EST Performed On: 11/06/2019 11:09 EST by BESS VINCENT, OTR/L General Information, OT Visit Type, OT : Initial evaluation Patient Orders : Order Date Order Ordering 11/05/2019 09:53 Consult to Occupational Therapy Ordered By: QUINN SALVADOR MD-INT Active Diagnoses : 11/04/2019 12:00 Abnormal levels [...] injury of head, initial encounter Therapy Diagnosis, OT : Decreased I with ADLs and fxnl mobility secondary to cardiac arrhythmias/heart block, elevated troponin, dizziness, and fall with SDH, resulting in fxnl decline. Onset of Problem, OT : 11/06/2019 EST Admission Date : 11/04/2019 21:19 Co-treated by, OT : career services assistant (HARDWOOD FLOOR INSTALLER) Assisted by, OT : wind technician/aide Personal Devices : Personal Devices Glasses Assistive Devices : Assistive Devices No Devices Recorded General Information Comment, OT : 84 yo female who was admitted to [facility] on 11/04 for cardiac arrhythmias/heart block, elevated troponin, dizziness, and fall with SDH. PMHx: aortic stenosis, atrial flutter, CAD with CABG, HLD, and HTN. CTH: right tempoparietal SDH Recent TAVR 10/29/19 Possible pacemaker placement soon BESS VINCENT OTR/Chio - 11/06/2019 14:12 EST General Status Patient Received Status : Supine in bed Treatment Start Time : 11/06/2019 10:51 EST Patient Left Status : Supine in bed, RN/PCT informed, All needs met and within reach RN/PCT Informed Comment : WILL Banerjee'latrice RN requested bed level eval only secondary to heart rate Treatment End Time : 11/06/2019 11:09 EST Treatment Time : 18 Minute(s) BESS VINCENT OTR/Chio - 11/06/2019 14:12 EST History and Environment, OT Living Situation, Therapy : Home Patient Lives With : Spouse Persons Assisting Patient at Home : Spouse Professional Skilled Services : None Persons Providing Information : Patient, Spouse Stairs : Yes Stair Location(s) : Inside, Outside Inside Stairs, Number of Steps : 1 Outside Stairs, Number of Steps : 2 Railing Outside : No BESS VINCENT OTR/Chio - 11/06/2019 14:12 EST Prior LOF Bathing, OT : Independent Prior LOF Bed Mobility : Independent Prior LOF Upper Body Dressing, OT : Independent Prior LOF Lower Body Dressing, OT : Independent Prior LOF Toileting : Independent Prior LOF Transfer : Independent Prior LOF Grooming, OT : Independent Prior LOF for IADLs, OT : Independent BESS VINCENT OTR/Chio - 11/06/2019 14:12 EST Upper Extremity Right UE Active ROM : WFL Right UE Strength : WFL Left UE Active ROM : [facility] Left UE Strength : [facility] Upper Extremity Strength Impaired : No Right UE Strength : [facility] Left UE Strength : [facility] Upper Extremity Comment : BUE ROM and MMT [facility] BESS VINCENT, OTR/L - 11/06/2019 14:12 EST Self Care/Home Management, OT Self Feeding Assist Level, OT : Independent, complete Grooming Assist Level, OT : Independent, complete Bathing Assist Level, OT : Assist, minimal Upper Body Dressing Assist Level, OT : Independent, complete Lower Body Dressing Assist Level, OT : Assist, minimal Toileting Assist Level : Independent, complete Toilet Transfer Assist Level : Assist, minimal BESS VINCENT, OTR/L 11/06/2019 14:12 EST Mobility Device/Prosthesis/Wt Bearing Weight Bearing Status Maintained : Yes Weight Bearing Status : Full BESS VINCENT, OTR/L 11/06/2019 14:12 EST Cognition Assessment, OT Orientation : Oriented x 4 Cognition Assessment, OT : Intact Comprehension Assessment, OT : Intact LEVECHOBESS SANCHEZ, OTR/L 11/06/2019 14:12 EST Education OT Occupational Therapy Education Grid Activity of Daily Living Training : Needs further teaching Functional Mobility Training : Needs further teaching Role of Occupational Therapy : Verbalizes understanding BESS VINCENT, OTR/L 11/06/2019 14:12 EST Teaching/Learning Assessment Barriers To Learning : None evident Individuals Taught : Patient Readiness to Learn : Cooperative Highest Level of Education : University degree(s) Readiness to Learn : Explanation Learning Style Preferences Patient : Verbal explanation BESS VINCENT, OTR/L 11/06/2019 14:12 EST Indication Assessment, OT Occupational Therapy Indicated : Yes Problem List, OT : Impaired, bed mobility, Impaired, activities daily living, Impaired, endurance tolerance, Impaired functional mobility, Impaired, standing balance, Impaired, strength, Impaired, transfers Potential Barriers, OT : None evident Rehabilitation Potential, OT : Good LEVECHOBESS SANCHEZ, OTR/L 11/06/2019 14:12 EST Plan of Care, OT OT Tx Plan/Goals Established w Patient : Yes OT Frequency Rehab : Five days per week OT Duration Rehab : Fourteen days OT Treatments Planned : Activities of daily living, Balance training, Functional mobility training, Safety education, Therapeutic activities, Therapeutic exercises BESS VINCENT, OTR/L - 11/06/2019 14:12 EST Bryologist Goals, OT Grooming LTG Grid Goal #1 Activity : Grooming Cues : No cues Assist : Independent, complete Date to Meet : 11/20/2019 EST Goal Status : Initial goal Comment : Standing at sink BESS VINCENT, OTR/L - 11/06/2019 14:12 EST Bathing LTG Grid Goal #1 Activity : Bathing Cues : No cues Assist : Independent, complete Date to Meet : 11/20/2019 EST Goal Status : Initial goal BESS VINCENT, OTR/L - 11/06/2019 14:12 EST Dressing, Lower Body LTG Grid Goal #1 Activity : Dressing, Lower Body Cues : No cues Assist : Independent, complete Date to Meet : 11/20/2019 EST Goal Status : Initial goal BESS VINCENT OTR/L - 11/06/2019 14:12 EST Toilet Transfer LTG Grid Goal #1 Activity : Toilet Transfer, Ambulatory Cues : No cues Assist : Independent, complete Date to Meet : 11/20/2019 EST Goal Status : Initial goal BESS VINCENT, OTR/L - 11/06/2019 14:12 EST Bed Mobility/ Bed Transfer LTG Grid Goal #1 Activity : Bed Mobility/Bed Transfer Cues : No cues Assist : Independent, complete Date to Meet : 11/20/2019 EST Goal Status : Initial goal BESS VINCENT OTR/L - 11/06/2019 14:12 EST Other LTG Grid Goal #1 Goal : Pt will stand independently for >8 mins for fxnl task without LOB or need for rest break. Date to Meet : 11/20/2019 EST Goal Status : Initial goal BESS VINCENT, OTR/L - 11/06/2019 14:12 EST Treatment Note Subjective Comment : Pt and RN okay'd OT eval at this time, however, RN requested bed level eval only secondary to pt's heart rate Patient's Response to Treatment : Pt tolerated OT eval well Additional Objective Information : Pt supine in bed upon OT arrival. Pt tolerated BUE ROM and MMT. Pt provided, educated, and practiced with heavy theraband for BUE strengthening. Pt left supine in bed with call light/phone within reach. Assessment : Pt would benefit from skilled OT services to improve fxnl status. Plan for Treatment : See POC BESS VINCENT OTR/L - 11/06/2019 14:12 EST Pain Assessment Pain Scaled Used : 0-10 Pain scale Pain Score Pre-Intervention : 0 BESS VINCENT OTR/Chio - 11/06/2019 14:12 EST Image 1 - Images currently included in the form version of this document have not been included in the text rendition version of the form. Anticipated Discharge Needs, OT/PT Anticipated Discharge to : Home, independently Recommend Continued Therapy at Discharge : No BESS VINCENT OTR/Chio - 11/06/2019 14:[address] [facility] OT Charges OT Eval Moderate Complexity : 1 BESS VINCENT OTR/L - 11/06/2019 14:12 EST Electronically signed by [facility] Conversion Cupola Mechanic Cerner at 01/26/2023 8:57 PM CDT documented in this encounter Plan of Treatment Not on file documented as of this encounter Visit Diagnoses Not on filedocumented in this encounter
--- OUTSIDE RECORDS SUMMARY | 2025-03-28 10:41 | XMS_ITS | Encounter Summary ---
Author Organization [employer] Address [address] [place] [address] Care Team Providers Care Care Program Resident Name Role Phone Unavailable Primary Care Provider Unavailabl e Encounter Details Date Type Department Care Team (Late st Contact Info) Description 11/05/2019 Transcribed Document [facility] [place] [facility] by [facility] [place] [address] ProviderPrasanth MD [address] [place] [address] Social History Tobacco Use Types Packs/Day Years Used Date Smoking Tobacco: Never Assessed Sex and Gender Information Value Date Recorded Sex Assigned at Not on file Legal Sex Male 6:49 PM CDT Gender Identity Not on file Sexual Orientation Not on file documented as of this encounter Miscellaneous Notes * Cerner Conversion Note - Prasanth ProviderMD - 11/05/2019 8:53 AM CLINICAL SUPPORT MANAGER Patient: SHIRA GARZA HORACIO Age: 84 Years Sex: Male : 1935 Chief Complaint Pt c/o dizziness and bradycardia x 2 days. 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 Pt also c/o head and arm pain r/t falling yesterday and hitting the wall. Pt denies LOC. Pt on plavix. Cardiology: MD Tracee EP: MD Jourdan Structural Cardiology: MD Devi History of Present Illness The patient is an 84 year old gentleman with a past medical history of coronary artery disease with prior 5 vessel CABG in 2007 (eq BYRD 2nd diagonal & LAD, SVG to PDA branch of the LCx, seq SVG to D1 & OM2), paroxysmal fibrillation and aortic stenosis. Nov 2018 he underwent atrial flutter ablation by Dr. Soliman. He continued to have complaints of shortness of breath. 09/11/2019 cardiac catherization revealed Severe aortic stenosis. Patency of all bypass grafts. Three-vessel coronary artery disease. The patient was referred to surgery. TAVR was recommended. On 10/29/2019 he underwent transcatheter aortic valve replacement using a 29 mm Mancia NAVID 3 bioprosthetic valve via percutaneous closed right transfemoral approach under conscious sedation. Supravalvular aortography. Placement of temporary transvenous pacemaker via the left common femoral vein in collaboration by Esvin Cohen Zadeh. The patient was discharged home on aspirin and plavix. Upon arrival home the patient describes dizzy spells intermittent in nature, worse with ambulation. Over the weekend he had a spell where he bumped into the wall and felt presyncopal. He denies loss of consciousness or fall. However, he states he did strike his head on the wall. He called his neighbor who is a former ICU nurse here at [facility]. The patient was transported to the emergency department for further evaluation. CT of the head was obtained revealed small right temporal subdural hematoma measuring up to 7 mm in size. There is no significant mass effect. Mild age-appropriate atrophy. The patient was admitted to the intensive care unit for further evaluation. Upon evaluation EKG concerning for heart block prompting cardiology consultation. The patient denies chest pain, shortness of breath, palpitation, syncope. He denies recent illness, urinary frequency, diarrhea. He also denies dizziness, presyncope currently. Review of systems 14 point review of systems obtained, negative except mentioned above Physical Exam Vitals & Measurements T: 36.8 ??C TMIN: 36.4 ??C TMAX: 37.1 ??C HR: 38(Monitored) RR: 11 BP: 118/56 SpO2: 91% HT: 175.26 cm WT: 93.1 kg BMI: 30.31 General: [Alert and oriented, well nourished, no acute distress]. Neurologic: [Awake, alert, and oriented X3, CN II-XII intact]. Eye: [PERRL, EOMI, normal conjuctiva]. HENT: [right occipital abrasion/hematoma, clear tympanic membranes, normal hearing, moist oral mucosa, no scleral icterus]. Neck: [Supple, non-tender, no carotid bruits, no JVD]. Lungs: [Clear to auscultation, non-labored respiration]. Heart: [Normal rate, regular rhythm, no murmur, no edema]. Abdomen: [Soft, non-tender, non-distended, normal bowel sounds]. Musculoskeletal: [Normal range of motion and strength, no tenderness ]. Skin: [Skin is warm, dry and pink, right forearm abrasion]. Psychiatric: [Cooperative, appropriate mood and affect]. Assessment/Plan Intermittent complete heart block pt currently asymptomatic, will monitor will need ppm at some point prior to discharge, as long as pt is asymptomatic would like to wait due to Plavix longstanding history of bradycardia Aortic stenosis s/p TAVR 10/29/2019 obtain echocardiogram CAD s/p 5V CABG [facility] 09/2019 revealed patent grafts continue nitrate, statin PAF s/p atrial flutter ablation SDH NS following ASA, Plavix on hold h/o Right BBB Thank you for this consultation we will continue to follow Please call with CV questions/concerns Problem List/Past Medical History Ongoing Aortic stenosis At risk for sleep apnea Atrial flutter Benign neoplastic disease CAD (coronary artery disease) Hyperlipidemia Hypertension Renal calculus Right bundle branch block Shortness of breath Wears glasses Historical No qualifying data Procedure/Surgical History FLUOROSCOPY OF THORACIC AORTA (10/29/2019), REPLACEMENT OF AORTIC VALVE WITH ZOOPLASTIC, PERC APPROACH (10/29/2019), TAVR (10/29/2019), colonoscopy - times 4, coronary artery bypass graft, cyst removed - upper back, heart catheterization, right inguinal hernia repair, right wrist surgery - plate placed, vasectomy. Allergies amiodarone (Unknown) Medications aspirin 81 mg oral tablet, 81 mg= 1 Tab, Oral, Daily atorvastatin, 20 mg, Oral, Weekly atorvastatin, 20 mg= 1 Tab, Oral, Weekly Imdur, 30 mg= 1 Tab, Oral, QAM isosorbide mononitrate 30 mg oral tablet, extended release, 30 mg= 1 Tab, Oral, QAM lisinopril 20 mg oral tablet, 20 mg= 1 Tab, Oral, Daily multivitamin, 1 Tab, Oral, Daily niCARdipine injection 25 mg + NaCl 0.9% for drip 250 mL nitroglycerin, 0.4 mg, SubLINgual, Q5Min Normal Saline 1,000 mL, 1000 mL, IntraVENous Plavix 75 mg oral tablet, 75 mg= 1 Tab, Oral, Daily Social History Alcohol Alcohol Use History No. Employment/School Employed Home/Environment Lives with Spouse. Living situation: Home/Independent. Substance Abuse Drug Use Hx: No. Use in Last 12 Months: No. Tobacco Former smoker, quit more than 30 days ago Smoking Status. lives with plays rugby Code Status / Living Will Resuscitation Status - Ordered -- Start: 11/04/19 21:59:00 EST, Full Code, Continuous Order Labs Results NOV 04 20:08 140 106 H 26 / 93 3.6 28 1.00 \ NOV 04 20:08 \ L 13.3 / 6.4 L 100 / 40.7 \ Cardiac Labs Cardiology Labs Cardiac Markers Troponin I Ultra: 0.299 ng/mL High (11/04/19 20:08:00) Diagnostics EKG complete heart block Echo pe Electronically signed by Interface, [facility] Conversion Corrugator Helper Cerner at 01/26/2023 9:07 PM CDT documented in this encounter Plan of Treatment Not on file documented as of this encounter Visit Diagnoses Not on filedocumented in this encounter
--- OUTSIDE RECORDS SUMMARY | 2025-03-28 10:41 | XMS_ITS | Encounter Summary ---
Author Organization [employer] Address [address] [place] [address] Care Team Providers Care Restaurant Line Cook Name Role Phone Unavailable Primary Care Provider Unavailabl e Encounter Details Date Type Department Care Team (Late st Contact Info) Description 11/05/2019 Transcribed Document [facility] [place] [address] [place] [address] ProviderPrasanth MD [facility] [place], [place] [address] Social History Tobacco Use Types Packs/Day Years Used Date Smoking Tobacco: Never Assessed Sex and Gender Information Value Date Recorded Sex Assigned at Not on file Legal Sex Male 6:49 PM CDT Gender Identity Not on file Sexual Orientation Not on file documented as of this encounter Miscellaneous Notes * Cerner Conversion Note - Historical ProviderMD - 11/05/2019 2:00 AM INSTRUCTIONAL TECHNOLOGY FACILITATOR Lithographing Machine Operator Details Entered On: 11/05/2019 0:16 EST Performed On: 11/05/2019 2:00 EST by DESMOND CRUZ, RN Order Details Transport Mode Order Detail : Bed (including specialty) Isolation Precautions Order Detail : Standard Precautions Order Detail : N/A IV Order Detail : 1 Oxygen Order Detail : 0 Nurse Collect Order Detail : 1 Lift/Transfer : Minimal Central Line Order Detail : No Room Service : Appropriate Arterial Line : No DESMOND CRUZ, RN - 11/05/2019 0:16 EST documented in this encounter Plan of Treatment Not on file documented as of this encounter Visit Diagnoses Not on filedocumented in this encounter
--- OUTSIDE RECORDS SUMMARY | 2025-03-28 10:41 | XMS_ITS | Encounter Summary ---
Author Organization [employer] Address [address] [place] [address] Care Team Providers Care Glass Cutter Name Role Phone Unavailable Primary Care Provider Unavailabl e Encounter Details Date Type Department Care Team (Late st Contact Info) Description 11/05/2019 Transcribed Document [facility] Neurology - [address] [facility] [address] [place] [address] Titus Rasheed Jr., MD [address] [place], [place] [id number] Social History Tobacco Use Types Packs/Day Years Used Date Smoking Tobacco: Never Assessed Sex and Gender Information Value Date Recorded Sex Assigned at Not on file Legal Sex Male 6:49 PM CDT Gender Identity Not on file Sexual Orientation Not on file documented as of this encounter Miscellaneous Notes * Cerner Conversion Note - Titus Rasheed Jr., MD - 11/05/2019 9:00 AM EST Patient: SHIRA GARZA HORACIO Age: 84 Years Sex: Male : 1935 Subjective Per RN, HR in 30s. Cardiology consulted. Pt has no complaints. Vital Signs T: 36.8 ??C TMIN: 36.4 ??C TMAX: 37.1 ??C HR: 38(Monitored) RR: 11 BP: 118/56 SpO2: 91% HT: 175.26 cm WT: 93.1 kg BMI: 30.31 Oxygen Settings (Last) Oxygen Therapy Mode: Room air (11/05/19 08:00:00) Physical Exam a/a/o x 3. nad. laying in bed. SBP has been controlled, 120 this am. HR 30s. maew. non focal. pupils equal Assessment/Plan Mr. Garza is 84 years old with an acute right-sided temporal subdural hematoma after a fall- cardiology consult pending. Wean Cardene. Check CT head wo. If BP stable off Cardene and CT head stable may TTF. Medications atorvastatin, 20 mg= 1 Tab, Oral, Weekly cloNIDine, 0.1 mg= 1 Tab, Oral, Q6H, PRN Colace, 100 mg= 10 mL, Oral, BID, PRN DuoNeb 0.5 mg-2.5 mg/3 mL inhalation solution, 3 mL, Nebulized Inhalation , Q4H, PRN hydrALAZINE, 5 mg= 0.25 mL, IV Push, Q4H, PRN Imdur, 30 mg= 1 Tab, Oral, QAM lisinopril, 20 mg= 1 Tab, Oral, Daily MiraLax, 17 Gram= 1 Packet, Oral, Daily, PRN multivitamin, 1 Tab, Oral, Daily niCARdipine injection 25 mg + NaCl 0.9% for drip 250 mL Normal Saline 1,000 mL, 1000 mL, IntraVENous Tylenol, 650 mg= 2 Tab, Oral, Q6H, PRN Zofran, 4 mg= 2 mL, IV Push, Q4H, PRN Lab Results Test Name Test Result Date/Time Sodium Level 140 mmol/L 11/04/2019 20:08 EST Potassium Level 3.6 mmol/L 11/04/2019 20:08 EST Chloride Level 106 mmol/L 11/04/2019 20:08 EST Carbon Dioxide Level 28 mmol/L 11/04/2019 20:08 EST Anion Gap 10 11/04/2019 20:08 EST Glucose Level 93 mg/dL 11/04/2019 20:08 EST Blood Urea Nitrogen 26 mg/dL (High) 11/04/2019 20:08 EST Creatinine Level 1.00 mg/dL 11/04/2019 20:08 EST eGFR >60 mL/min/1.73m2 11/04/2019 20:08 EST eGFR NonAfrican >60 mL/min/1.73m2 11/04/2019 20:08 EST Bun/Creatinine 23.6 (High) 11/04/2019 20:08 EST Calcium Level 9.1 mg/dL 11/04/2019 20:08 EST Magnesium Level 2.0 mg/dL 11/04/2019 20:08 EST Troponin I Ultra 0.299 ng/mL (High) 11/04/2019 20:08 EST WBC 6.4 K/uL 11/04/2019 20:08 EST RBC 4.52 Million/uL 11/04/2019 20:08 EST Hgb 13.3 g/dL (Low) 11/04/2019 20:08 EST Hct 40.7 % 11/04/2019 20:08 EST MCV 90.0 fL 11/04/2019 20:08 EST MCH 29.4 pg 11/04/2019 20:08 EST MCHC 32.7 Gram/dL 11/04/2019 20:08 EST Platelet Count 100 K/uL (Low) 11/04/2019 20:08 EST MPV 13.3 fL (High) 11/04/2019 20:08 EST RDW 14.6 % 11/04/2019 20:08 EST Neut % 66.8 % 11/04/2019 20:08 EST Neut # 4.24 K/uL 11/04/2019 20:08 EST Lymph % 20.8 % 11/04/2019 20:08 EST Lymph # 1.32 x10(3)/uL 11/04/2019 20:08 EST Garfield % 9.6 % (High) 11/04/2019 20:08 EST Garfield # 0.61 K/uL 11/04/2019 20:08 EST Eos % 1.4 % 11/04/2019 20:08 EST Eos # 0.09 x10(3)/uL 11/04/2019 20:08 EST Baso % 0.3 % 11/04/2019 20:08 EST Baso # 0.02 x10(3)/uL 11/04/2019 20:08 EST Slide Review No 11/04/2019 20:08 EST IG# 0.07 x10(3)/uL (High) 11/04/2019 20:08 EST IG% 1.10 % (High) 11/04/2019 20:08 EST PT 11.0 Second(s) 11/04/2019 20:08 EST INR 1.0 11/04/2019 20:08 EST PTT 28.0 Second(s) 11/04/2019 20:08 EST ABO/Rh (ECHO) B POS 11/04/2019 20:08 EST Plt Product Ready Platelet Ready 11/04/2019 21:16 EST # of Units 1 11/04/2019 21:16 EST documented in this encounter Plan of Treatment Not on file documented as of this encounter Visit Diagnoses Not on filedocumented in this encounter
--- OUTSIDE RECORDS SUMMARY | 2025-03-28 10:41 | XMS_ITS | Encounter Summary ---
Author Organization [employer] Address [address] [place] [address] Care Team Providers Care Tank House Operator Helper Name Role Phone Unavailable Primary Care Provider Unavailabl e Encounter Details Date Type Department Care Team (Late st Contact Info) Description 11/05/2019 Transcribed Document [facility] [place] Family Medicine [address] [place] [address] ProviderPrasanth MD [address] [place] [address] Social History Tobacco Use Types Packs/Day Years Used Date Smoking Tobacco: Never Assessed Sex and Gender Information Value Date Recorded Sex Assigned at Not on file Legal Sex Male 6:49 PM CDT Gender Identity Not on file Sexual Orientation Not on file documented as of this encounter Miscellaneous Notes * Cerner Conversion Note - Historical ProviderMD - 11/05/2019 9:53 AM WAREHOUSE STOCKER Evaluation, Physical Therapy Entered On: 11/05/2019 15:26 EST Performed On: 11/05/2019 14:20 EST by PB BROWNLEE, PT General Information, PT Visit Type, PT : Initial evaluation Patient Orders : Order Date Order Ordering 11/05/2019 09:53 Consult to Physical Therapy Ordered By: QUINN SALVADOR MD-INT Active [...] mobility due to dizziness and irregular heartbeat Onset of Problem, PT : 11/04/2019 EST Admission Date : 11/04/2019 21:19 Personal Devices : Personal Devices Glasses Assistive Devices : Assistive Devices No Devices Recorded General Information Comment, PT : pt is 84 year old male adm with falls, dizziness and irregular heartbeat. on Oct 29 pt had transcatheter AVR. was discharged home and now returns. CT scan shows small right temp parietal subdural hematoma. Hx of CAD CABG HTN HLD. pt seen bedside room ICU [address] heart rate ranges in the 30's to 60's. May go for pacemaker placement tomorrow per RN). spouse present PB BROWNLEE, PT - 11/05/2019 15:11 EST General Status Patient Received Status : Supine in bed, HOB elevated Treatment Start Time : 11/05/2019 14:05 EST Patient Left Status : Supine in bed, RN/PCT informed, Family/Visitors at bedside, All needs met and within reach RN/PCT Informed Comment : pt ok for PTx per Shawna SOLIS. ok to sit EOB but not oob today due to HR in 30-60/s. may go for PM tomorrow Treatment End Time : 11/05/2019 14:20 EST Treatment Time : 15 Minute(s) PB BROWNLEE, PT - 11/05/2019 15:11 EST History and Environment Living Situation, Therapy : Home Patient Lives With : Spouse Persons Assisting Patient at Home : Spouse Professional Skilled Services : None Persons Providing Information : Patient, Spouse Home Equipment Therapy, PT : None Stairs : Yes Stair Location(s) : Inside, Outside Inside Stairs, Number of Steps : 1 Outside Stairs, Number of Steps : 2 PB BROWNLEE, PT - 11/05/2019 15:11 EST Intervention Summary Heart Rate/Pulse Pre-intervention : 59 bpm BP Systolic Pre-intervention : 159 mmHg BP Diastolic Pre-intervention : 71 mmHg O2 Pre-Intervention : room air SpO2 Pre-Intervention : 92 % Therapist Assessment Pre-intervention : at rest Heart Rate/Pulse Post-intervention : 70 bpm BP Systolic Post-intervention : 157 mmHg BP Diastolic Post-intervention : 73 mmHg SpO2 Post-Intervention : 97 % Therapist Assessment Post-intervention : post therapy PB BROWNLEE, PT - 11/05/2019 15:11 EST Upper Extremity Upper Extremity Dominance : Left Right UE Active ROM : WFL Right UE Strength : WFL Left UE Active ROM : WFL Left UE Strength : WF PB BROWNLEE, PT - 11/05/2019 15:11 EST Lower Extremity RLE Active ROM : WFL Right LE Strength : WF LLE Active ROM : WFL Left LE Strength : WF PB BROWNLEE, PT - 11/05/2019 15:11 EST Functional Mobility Mobility Grid Supine to Sit : Rehab Minimal assistance Sit to Supine : Rehab Minimal assistance PB BROWNLEE, PT - 11/05/2019 15:11 EST Functional MobilityComment : good sitting balance in sitting PB BROWNLEE, PT - 11/05/2019 15:11 EST Gait Training/Assessment, PT Gait Assistance Level : Unable to assess/activity not appropriate Walking Distance : per RN due to HR PB BROWNLEE, PT - 11/05/2019 15:11 EST Neurological/Sensory Overall Sensory Response : Intact PB BROWNLEE, PT - 11/05/2019 15:11 EST Cognition Assessment, PT Orientation : Oriented x 4 PB BROWNLEE, PT - 11/05/2019 15:11 EST Edu Topics Physical Therapy Education Grid Bed Mobility Training : Needs further teaching, Returns demonstration Gait Training : Needs further teaching Therapeutic Exercises : Needs further teaching Transfer Training : Needs further teaching PB BROWNLEE, PT - 11/05/2019 15:11 EST Indication Assesessment, PT Physical Therapy Indicated : Yes PT Problem List : Impaired, activities daily living, Impaired, bed mobility, Impaired, endurance tolerance, Impaired, gait, Impaired, transfers PB BROWNLEE, PT - 11/05/2019 15:11 EST Plan of Care, PT PT Tx Plan/Goals Established w Patient : Yes PT Frequency Rehab : Daily PT Duration Rehab : Fourteen days PT Treatments Planned : Balance training, Bed mobility training, Gait training, Therapeutic exercises, Transfer training PB BROWNLEE, PT - 11/05/2019 15:11 EST Faculty Research Assistant Goals Mobility/Bed Mobility LTG PT Grid Goal #1 Goal #2 Activity : Supine to sit Sit to stand Assist : Independent, complete Independent, modified Equipment : Rail, bed Belt, gait, Walker, front wheel Date to Meet : 11/19/2019 EST 11/19/2019 EST Goal Status : Intial Goal Intial Goal PB BROWNLEE, PT - 11/05/2019 15:11 EST PB BROWNLEE, PT - 11/05/2019 15:11 EST Ambulation LTG Grid Goal #1 Device : Walker, front wheel Distance : 375 feet Assist : Supervision or set-up Date to Meet : 11/19/2019 EST Goal Status : Intial Goal PB BROWNLEE, PT - 11/05/2019 15:11 EST Treatment Note Subjective Comment : states name and Patient's Response to Treatment : agreed to therapy . Assessment : impaired mobility due to dizziness and irregular heart beat. pt needs PTx to increase general mobility Plan for Treatment : cont POC PB BROWNLEE, PT - 11/05/2019 15:11 EST Pain Assessment Pain Scaled Used : 0-10 Pain scale Pain Score Pre-Intervention : 0 PB BROWNLEE, PT - 11/05/2019 15:11 EST Image 1 - Images currently included in the form version of this document have not been included in the text rendition version of the form. Anticipated Discharge Needs, OT/PT Anticipated Discharge to : Home, with family care Recommend Continued Therapy at Discharge : No PB BROWNLEE, PT - 11/05/2019 15:11 EST [facility] Charges PT Eval Moderate Complexity : 1 PB BROWNLEE, PT - 11/05/2019 15:11 EST Electronically signed by Nikita [facility] Conversion Tube Making Machine Operator Cerner at 01/26/2023 8:52 PM CDT documented in this encounter Plan of Treatment Not on file documented as of this encounter Visit Diagnoses Not on filedocumented in this encounter
--- OUTSIDE RECORDS SUMMARY | 2025-03-28 10:41 | XMS_ITS | Encounter Summary ---
Author Organization [employer] Address [address] [place] [address] Care Team Providers Care Debt And Budget Counselor Name Role Phone Unavailable Primary Care Provider Unavailabl e Encounter Details Date Type Department Care Team (Late st Contact Info) Description 11/05/2019 Transcribed Document [facility] Neurology - [address] [facility] [address] [place] [address] Lesly Chiang Jr., MD [address] [place], [place] [id number] Social History Tobacco Use Types Packs/Day Years Used Date Smoking Tobacco: Never Assessed Sex and Gender Information Value Date Recorded Sex Assigned at Not on file Legal Sex Male 6:49 PM CDT Gender Identity Not on file Sexual Orientation Not on file documented as of this encounter Miscellaneous Notes * Cerner Conversion Note - Lesly Chiang Jr., MD - 11/05/2019 5:34 PM EST Patient: SHIRA GARZA HORACIO Age: 84 years Sex: Male : 1935 Associated Diagnoses: None Author: LESLY CHIANG MD-SNU neuro intact looks well ct scan stable from my standpoint can transfer from icu from y standpoint would stop all antiplatelets and anticoagulants and see in f/u in office in 2 weeks w/ head ct w/o contrast if he must be on antiplatelet agent or anticoagulation, please call to discuss. documented in this encounter Plan of Treatment Not on file documented as of this encounter Visit Diagnoses Not on filedocumented in this encounter
--- OUTSIDE RECORDS SUMMARY | 2025-03-28 10:41 | XMS_ITS | Encounter Summary ---
Author Organization [employer] Address [address] [place] [address] Care Team Providers Care Chair Caner Name Role Phone Unavailable Primary Care Provider Unavailabl e Encounter Details Date Type Department Care Team (Late st Contact Info) Description 11/06/2019 Transcribed Document [facility] Radiology [address] [place] [address] Abel Kapadia MD [address] [place] [address] [address] [place] [address] Social History Tobacco Use Types Packs/Day Years Used Date Smoking Tobacco: Never Assessed Sex and Gender Information Value Date Recorded Sex Assigned at Not on file Legal Sex Male 6:49 PM CDT Gender Identity Not on file Sexual Orientation Not on file documented as of this encounter Miscellaneous Notes * Cerner Conversion Note - Abel Kapadia MD - 11/06/2019 12:11 PM EST Patient: SHIRA GARZA HORACIO Age: 84 years Sex: Male : 1935 Associated Diagnoses: None Author: ABEL KAPADIA MD-INT Subjective DATE OF ADMISSION: 11/04/2019 Date of Discharge PRIMARY CARE PHYSICIAN: [facility] Marcelino Caldera, [facility]. REFERRING PHYSICIAN: Dr. Beckman, [facility] , 1935. CURRENT COMPLAINT: Falls, dizziness, irregular heartbeat. HISTORY OF PRESENT ILLNESS: Shira Garza is an 84-year-old man, , living in the [facility], who recently underwent a transcatheter aortic valve replacement repair and replacement by Dr. Quinonez and Dr. Michael Fontana, on October 29. He has a history of progressive degenerative aortic valve stenosis as well as a history of coronary artery disease, followed by Dr. Easley status post coronary artery bypass grafting in the past. His procedure was performed because of significant worsening of echocardiogram. The patient did admit to dyspnea on exertion. Several months prior to his procedure, he developed atrial fibrillation, which spontaneously converted to sinus rhythm and his rhythm prior to his procedure on October 29 was sinus rhythm with right bundle-branch block. Following his procedure, he had no obvious complications and he went home on aspirin and Plavix, the Plavix being an addition to his usual medications. Consultations obtained -Cardiology -Neurosurgery -Physical and occupational therapy Procedures and workup -CT head with small right-sided subdural hematoma Hospital course 11/05 patient seen and examined, he is in ICU, he is somewhat the bradycardic, reports no active complaints He is pleasant to talk to, cardiology and neurosurgical service on board. 11/06 patient seen, sitting up, feels very well, relook CT head OK, cards planning PPM soon, I d/w RN 11/07-pt 11/08-pt Health Status Allergies: Allergic Reactions (Selected) Severity Not Documented Amiodarone- Unknown., Allergies (1) Active Reaction amiodarone Unknown Current medications: (Selected) Inpatient Medications Ordered Colace: 100 mg, Oral, BID, PRN: Constipation DuoNeb 0.5 mg-2.5 mg/3 mL inhalation solution: 3 mL, Nebulized Inhalation, Q4H, PRN: Dyspnea Imdur: 30 mg, Oral, QAM MiraLax: 17 Gram, Oral, Daily, PRN: Constipation Tylenol: 650 mg, Oral, Q6H, PRN: Fever Zofran: 4 mg, IV Push, Q4H, PRN: Nausea/Vomiting atorvastatin: 20 mg, Oral, Weekly cloNIDine: 0.1 mg, Oral, Q6H, PRN: Hypertension hydrALAZINE: 5 mg, IV Push, Q4H, PRN: Hypertension lisinopril: 20 mg, Oral, Daily multivitamin: 1 Tab, Oral, Daily niCARdipine injection 25 mg + NaCl 0.9% for drip 250 mL: TITRATE, IntraVENous Documented Medications Documented Nitrostat 0.4 mg sublingual tablet: 1 Tab, SubLINgual, Q5Min, not to exceed 3 doses/15 min--if pain persists, seek medical attention, PRN: Chest Pain, 100 Tab, 0 Refill(s) Plavix 75 mg oral tablet: 1 Tab, Oral, Daily, 0 Refill(s) aspirin 81 mg oral tablet: 1 Tab, Oral, Daily, 30 Tab, 0 Refill(s) atorvastatin 20 mg oral tablet: 1 Tab, Oral, Weekly, 0 Refill(s) isosorbide mononitrate 30 mg oral tablet, extended release: 1 Tab, Oral, QAM, 0 Refill(s) lisinopril 20 mg oral tablet: 1 Tab, Oral, At Bedtime, 0 Refill(s) multivitamin: 1 Tab, Oral, Daily, 0 Refill(s), Home Medications (7) Active aspirin 81 mg oral tablet 81 mg = 1 Tab, Oral, Daily atorvastatin 20 mg oral tablet 20 mg = 1 Tab, Oral, Weekly isosorbide mononitrate 30 mg oral tablet, extended release 30 mg = 1 Tab, Oral, QAM lisinopril 20 mg oral tablet 20 mg = 1 Tab, Oral, At Bedtime multivitamin 1 Tab, Oral, Daily Nitrostat 0.4 mg sublingual tablet 0.4 mg = 1 Tab, PRN, SubLINgual, Q5Min Plavix 75 mg oral tablet 75 mg = 1 Tab, Oral, Daily , Medications (12) Active Scheduled: (4) atorvastatin 20 mg tab 20 mg 1 Tab, Oral, Weekly isosorbide MONOnitrate ER 30 mg tab 30 mg 1 Tab, Oral, QAM lisinopril 20 mg tab 20 mg 1 Tab, Oral, Daily multiple vitamin (Thera) tab 1 Tab, Oral, Daily Continuous: (1) niCARdipine 25 mg + NaCl 0.9% T ITRATE 250 mL 250 mL, IntraVENous PRN: (7) acetaminophen 325 mg tab 650 mg 2 Tab, Oral, Q6H albuterol-ipratropium inh 3 mL 3 mL, Nebulized Inhalation, Q4H cloNIDine 0.1 mg tab 0.1 mg 1 Tab, Oral, Q6H docusate sod 100 mg/10 mL liq 100 mg 10 mL, Oral, BID hydrALAZINE 20 mg/1 mL inj 5 mg 0.25 mL, IV Push, Q4H ondansetron 4 mg/2 mL inj 4 mg 2 mL, IV Push, Q4H polyethylene glycol 3350 pwd 17 g pkt 17 Gram 1 Packet, Oral, Daily Problem list: Medical At risk for sleep apnea / IMO 26264269 / Confirmed Shortness of breath / SNOMED CT 580264324 / Confirmed Hypertension / SNOMED CT 30640217 / Confirmed Wears glasses / SNOMED CT 918451731 / Confirmed, Active Problems (11) Aortic stenosis At risk for sleep apnea Atrial flutter Benign neoplastic disease CAD (coronary artery disease) Hyperlipidemia Hypertension Renal calculus Right bundle branch block Shortness of breath Wears glasses Objective VS/Measurements Vitals Signs (last 24 hrs) Last Charted Minimum Maximum Temp 98.4 (NOV 06 08:00) 96.9 (NOV 05 16:00) 98.2 (NOV 05 20:00) Mon HR 57 (NOV 06 10:00) 35 (NOV 05 16:00) 74 (NOV 05 19:15) Resp Rate 17 (NOV 06 10:00) L 13 (NOV 05 22:00) H 48 (NOV 05 19:00) SBP H 147 (NOV 06 10:00) 119 (NOV 05 11:15) H 178 (NOV 05 21:00) DBP 66 (NOV 06 10:00) L 58 (NOV 05 16:15) H 98 (NOV 05 19:15) MAP 95 (NOV 06 10:00) 84 (NOV 05 11:15) 127 (NOV 05 19:15) SpO2 96 (NOV 06 10:00) L 85 (NOV 05 19:15) 97 (NOV 06 04:30) General: No acute distress. Eye: Normal conjunctiva. Neck: No jugular venous distention. Respiratory: Lungs are clear to auscultation, Respirations are non-labored, Breath sounds are equal. Cardiovascular: Regular rhythm, No gallop, S1+ S2 No S3 or S4 [place].. Gastrointestinal: Soft, Non-tender, Non-distended, Normal bowel sounds. Integumentary: No rash. Neurologic: No focal deficits. Psychiatric: Cooperative. Results Review General results Interpretation: No qualifying data available Labs (Last four charted values) WBC 6.4 (NOV 04) HB L 13.3 (NOV 04) HCT 40.7 (NOV 04) Plt L 100 (NOV 04) Na 140 (NOV 04) K 3.6 (NOV 04) Cl 106 (NOV 04) CO2 28 (NOV 04) BUN H 26 (NOV 04) Cr 1.00 (NOV 04) Glu R 93 (NOV 04) Ca 9.1 (NOV 04) PT 11.0 (NOV 04) INR 1.0 (NOV 04) PTT 28.0 (NOV 04) Troponin H 0.299 (NOV 04) Radiology Results (Last 48 hours) [id number] -- 11/04/2019 21:19 CT Head WO (11/04/2019 21:02) Result: CT HEAD WITHOUT CONTRASTHISTORY: DizzinessTECHNIQUE: Thin-section axial images of the brain were performed withoutcontrast. This study was performed with techniques to keep radiationdoses as low as reasonably achievable, (ALARA). Individualized dosereduction techniques using automated exposure control or adjustment ofmA and/or kV according to the patient size were employed.COMPARISON: NoneFINDINGS: Bone windows demonstrate no fractures or other abnormalities.The visualized paranasal sinuses and mastoid air cells demonstrate nofluid levels. There is minimal ethmoidal mucosal thickening. Themastoids are clear. Vertebral artery calcifications are noted. Thebrainstem and posterior fossa are unremarkable. There is mildage-appropriate cortical atrophy. There is a small subdural hematomaalong the right temporal lobe measuring up to 7 mm in size. There is nomass effect on the right hemisphere with no significant midline shift.There is no cortical edema.IMPRESSION:1. Small right temporal subdural hematoma measuring up to 7 mm in size.There is no significant mass effect. Dr. Rodriguez in the emergencydepartment was notified of these findings at 2110 hours.2. Mild age-appropriate atrophy. CT Head WO (11/05/2019 12:38) Result: CT SCAN OF THE HEAD 11/05/2019 8:00 AM HISTORY: Subdural hemorrhage.COMPARISON: 1 day prior.TECHNIQUE: Multiple axial CT images were performed from the foramenmagnum to the vertex without enhancement. This study was performed withtechniques to keep radiation doses as low as reasonably achievable,(ALARA). Individualized dose reduction techniques using automatedexposure control or adjustment of mA and/or kV according to the patientsize were employed.FINDINGS: The ventricles are normal in size. There is a 6 mm righttemporal subdural hematoma, stable to slightly improved from the priorexam. There is age-appropriate atrophy. There are moderate chronic smallvessel ischemic changes. No masses are identified. The sinuses appearstable. IMPRESSION: Stable to slightly improved right temporal subduralhematoma.Images reviewed, interpreted, and dictated by Dr. Todd Jeff.Transcribed by Neela Coffey PA-C.I have personally viewed, interpreted and dictated the examination. Ihave read and agree with the above final transcribed report. 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 -Small right-sided subdural hematoma in the setting of aspirin and Plavix use -History of aortic stenosis status post recent TAVR -History of coronary artery disease status post CABG -Paroxysmal atrial fibrillation -Essential hypertension Plan Monitor heart rate, continue cardiac monitoring, held aspirin and Plavix Timing and threshold for pacemaker per cardiology, monitor blood pressure closely Neurosurgery service on board, plan of care was discussed with the patient and RN, TTTing once OK with others documented in this encounter Plan of Treatment Not on file documented as of this encounter Visit Diagnoses Not on filedocumented in this encounter
--- OUTSIDE RECORDS SUMMARY | 2025-03-28 10:41 | XMS_ITS | Encounter Summary ---
Author Organization [employer] Address [address] [place] [address] Care Team Providers Care Customer Experience Analyst Name Role Phone Unavailable Primary Care Provider Unavailabl e Encounter Details Date Type Department Care Team (Late st Contact Info) Description 11/05/2019 Transcribed Document [facility] [place] Family Medicine [address] [place] [address] ProviderPrasanth MD [facility] [place] [address] Social History Tobacco Use Types Packs/Day Years Used Date Smoking Tobacco: Never Assessed Sex and Gender Information Value Date Recorded Sex Assigned at Not on file Legal Sex Male 6:49 PM CDT Gender Identity Not on file Sexual Orientation Not on file documented as of this encounter Miscellaneous Notes * Cerner Conversion Note - Historical ProviderMD - 11/05/2019 5:00 AM CASING TIER Chart Check - Review Order Profile Entered On: 11/05/2019 4:51 EST Performed On: 11/05/2019 5:00 EST by DESMOND CRUZ RN Chart Check Powerplans Initiated/Discontinued as Appropriate : Yes All Active Orders Reviewed : Yes DESMOND CRUZ RN - 11/05/2019 4:51 EST documented in this encounter Plan of Treatment Not on file documented as of this encounter Visit Diagnoses Not on filedocumented in this encounter
--- OUTSIDE RECORDS SUMMARY | 2025-03-28 10:42 | XMS_ITS | Encounter Summary ---
Author Organization [employer] Address [address] [place] [address] Care Team Providers Care Pan Shover Name Role Phone Unavailable Primary Care Provider Unavailabl e Encounter Details Date Type Department Care Team (Late st Contact Info) Description 06/02/2021 Transcribed Document [facility] [place] Family [place] [facility] [place] [address] ProviderPrasanth MD [address] [place] [address] Social History Tobacco Use Types Packs/Day Years Used Date Smoking Tobacco: Never Assessed Sex and Gender Information Value Date Recorded Sex Assigned at Not on file Legal Sex Male 6:49 PM CDT Gender Identity Not on file Sexual Orientation Not on file documented as of this encounter Miscellaneous Notes * Cerner Conversion Note - Prasanth ProviderMD - 06/02/2021 9:50 AM CDT ED Triage Entered On: 06/02/2021 10:03 EDT Performed On: 06/02/2021 10:01 EDT by Marisela Mendenhall RN ED Triage Across the Room Chief Complaint : Pt c/o episode of CP x 2 hours last night, new onset bialteral weakness R>L onset 2200 last night that resolved after 2 hours. Triage Date/Time : 06/02/2021 10:01 EDT Marisela Mendenhall RN - 06/02/2021 10:01 EDT DCP GENERIC CODE Tracking Acuity : 2 - Emergent Tracking Group : [facility] ED Mariseal Mendenhall RN - 06/02/2021 10:01 EDT Mode of Arrival : Ambulatory Transported to ED by : Private vehicle To Room Via : Wheelchair Accompanied By : Spouse ED Vital Signs : Document Height & Weight : Document ED Allergies : Document ED Reason for Visit : Document Tetanus Immunization : Less than 5 years Marisela Mendenhall RN - 06/02/2021 10:01 EDT Infectious Disease History Has the patient ever been tested for COVID-19? : Yes, Patient stated results Negative Date of COVID-19 test known? : No Does patient have symptoms of COVID-19? : No COVID19 Screening : No Experiencing Infectious Disease Symptoms : No symptoms Physical contact outside [place] in the last 30 days : No Infectious Disease History : Chicken pox/Shingles, Mumps Tuberculosis Symptoms : None Marisela Mendenhall RN - 06/02/2021 10:01 EDT Vital Signs ED Temperature Source : Temporal artery scanning Temperature Mode : Fahrenheit Temperature, Fahrenheit : 97.6 Deg F ED Pain : No Clinical Temperature, C : 36.4 Deg C Oxygen Therapy Mode : Room air Peripheral Pulse Rate : 58 bpm (LOW) Respiratory Rate : 16 Breaths/Min Systolic Blood Pressure : 186 mmHg (HI) Diastolic Blood Pressure : 88 mmHg Oxygen Saturation : 97 % Marisela Mendenhall RN - 06/02/2021 10:01 EDT Allergy (As Of: 06/02/2021 10:03:56 EDT) Allergies (Active) amiodarone Estimated Onset Date: Unspecified ; Reactions: Unknown ; Created By: HILDA ANTHONY RN; Reaction Status: Active ; Category: Drug ; Substance: amiodarone ; Type: Allergy ; Updated By: HILDA ANTHONY RN; Reviewed Date: 12/30/2020 7:58 EDT Plavix Estimated Onset Date: Unspecified ; Created By: WALTER POWELL RN; Reaction Status: Active ; Category: Drug ; Substance: Plavix ; Type: Allergy ; Severity: High ; Updated By: WALTER POWELL RN; Reviewed Date: 12/30/2020 7:58 EDT Diagnosis Control ED (As Of: 06/02/2021 10:03:56 EDT) Problems(Active) Aortic valve stenosis (SNOMED CT :597511392 ) Name of Problem: Aortic valve stenosis ; Recorder: JIMI MCNEIL RN; Confirmation: Confirmed ; Classification: Medical ; Code: [id number] ; Contributor System: [employer] ; Last Updated: 08/05/2020 10:36 EDT ; Life Cycle Status: Active ; Vocabulary: SNOMED CT At risk for sleep apnea (IMO :59376306 ) Name of Problem: At risk for sleep apnea ; Recorder: SYSTEM, SYSTEM; Confirmation: Confirmed ; Classification: Medical ; Code: 10258286 ; Last Updated: 11/14/2018 7:19 EST ; Life Cycle Date: 11/14/2018 ; Life Cycle Status: Active ; Vocabulary: IMO At risk for sleep apnea (IMO :39006524 ) Name of Problem: At risk for sleep apnea ; Recorder: SYSTEM, SYSTEM; Confirmation: Confirmed ; Classification: Medical ; Code: 95271956 ; Last Updated: 08/04/2020 12:17 EDT ; Life Cycle Date: 08/04/2020 ; Life Cycle Status: Active ; Vocabulary: IMO Atrial fibrillation (SNOMED CT :58401193 ) Name of Problem: Atrial fibrillation ; Recorder: JIMI MCNEIL RN; Confirmation: Confirmed ; Classification: Medical ; Code: 00548069 ; Contributor System: [employer] ; Last Updated: 08/05/2020 10:36 EDT ; Life Cycle Status: Active ; Vocabulary: SNOMED CT Atrial flutter (SNOMED CT :7374225 ) Name of Problem: Atrial flutter ; Recorder: RADHA TERRAZAS RN; Confirmation: Confirmed ; Classification: Patient Stated ; Code: 0897372 ; Contributor System: PowerChart ; Last Updated: 11/14/2018 7:26 EST ; Life Cycle Date: 11/14/2018 ; Life Cycle Status: Active ; Vocabulary: SNOMED CT Benign neoplastic disease (SNOMED CT :71002923 ) Name of Problem: Benign neoplastic disease ; Recorder: AV KING RN; Confirmation: Confirmed ; Classification: Patient Stated ; Code: 45429666 ; Contributor System: PowerChart ; Last Updated: 09/11/2019 7:15 EST ; Life Cycle Date: 09/11/2019 ; Life Cycle Status: Active ; Vocabulary: SNOMED CT CAD - Coronary artery disease (SNOMED CT :4382194097 ) Name of Problem: CAD - Coronary artery disease ; Recorder: JIMI MCNEIL RN; Confirmation: Confirmed ; Classification: Medical ; Code: 4445093461 ; Contributor System: PowerChart ; Last Updated: 08/05/2020 10:36 EDT ; Life Cycle Status: Active ; Vocabulary: SNOMED CT CAD (coronary artery disease) (SNOMED CT :59825262 ) Name of Problem: CAD (coronary artery disease) ; Recorder: RADHA TERRAZAS RN; Confirmation: Confirmed ; Classification: Patient Stated ; Code: 15921986 ; Contributor System: PowerChart ; Last Updated: 11/14/2018 7:27 EST ; Life Cycle Date: 11/14/2018 ; Life Cycle Status: Active ; Vocabulary: SNOMED CT Chest pain (SNOMED CT :84199408 ) Name of Problem: Chest pain ; Recorder: SALLY BARNETT RN; Confirmation: Confirmed ; Classification: Patient Stated ; Code: 16214780 ; Contributor System: PowerChart ; Last Updated: 07/22/2020 9:12 EDT ; Life Cycle Date: 07/22/2020 ; Life Cycle Status: Active ; Vocabulary: SNOMED CT H/O aortic valve replacement (SNOMED CT :7753658566 ) Name of Problem: H/O aortic valve replacement ; Recorder: WALTER POWELL RN; Confirmation: Confirmed ; Classification: Patient Stated ; Code: 0909053505 ; Contributor System: PowerChart ; Last Updated: 08/04/2020 12:06 EDT ; Life Cycle Date: 08/04/2020 ; Life Cycle Status: Active ; Vocabulary: SNOMED CT Hard of hearing (SNOMED CT :868575917 ) Name of Problem: Hard of hearing ; Recorder: WALTER POWELL RN; Confirmation: Confirmed ; Classification: Patient Stated ; Code: 873426631 ; Contributor System: PowerChart ; Last Updated: 08/04/2020 11:53 EDT ; Life Cycle Date: 08/04/2020 ; Life Cycle Status: Active ; Vocabulary: SNOMED CT HLD - Hyperlipidemia (SNOMED CT :373580586 ) Name of Problem: HLD - Hyperlipidemia ; Recorder: JIMI MCNEIL RN; Confirmation: Confirmed ; Classification: Medical ; Code: 319035801 ; Contributor System: PowerChart ; Last Updated: 08/05/2020 10:36 EDT ; Life Cycle Status: Active ; Vocabulary: SNOMED CT HTN - Hypertension (SNOMED CT :6753779036 ) Name of Problem: HTN - Hypertension ; Recorder: JIMI MCNEIL RN; Confirmation: Confirmed ; Classification: Medical ; Code: 1697721421 ; Contributor System: PowerChart ; Last Updated: 08/05/2020 10:36 EDT ; Life Cycle Status: Active ; Vocabulary: SNOMED CT Hyperlipidemia (SNOMED CT :14059260 ) Name of Problem: Hyperlipidemia ; Recorder: AV KING RN; Confirmation: Confirmed ; Classification: Patient Stated ; Code: 83318460 ; Contributor System: PowerChart ; Last Updated: 09/11/2019 6:25 EST ; Life Cycle Date: 09/11/2019 ; Life Cycle Status: Active ; Vocabulary: SNOMED CT Hyperlipidemia (SNOMED CT :05519451 ) Name of Problem: Hyperlipidemia ; Recorder: WALTER POWELL RN; Confirmation: Confirmed ; Classification: Patient Stated ; Code: 70879193 ; Contributor System: PowerChart ; Last Updated: 08/04/2020 11:53 EDT ; Life Cycle Date: 08/04/2020 ; Life Cycle Status: Active ; Vocabulary: SNOMED CT Hypertension (SNOMED CT :07123191 ) Name of Problem: Hypertension ; Recorder: HILDA ANTHONY RN; Confirmation: Confirmed ; Classification: Medical ; Code: 69108323 ; Contributor System: PowerChart ; Last Updated: 10/26/2019 9:33 EST ; Life Cycle Date: 10/26/2019 ; Life Cycle Status: Active ; Vocabulary: SNOMED CT Hypertension (SNOMED CT :57719054 ) Name of Problem: Hypertension ; Recorder: WALTER POWELL RN; Confirmation: Confirmed ; Classification: Patient Stated ; Code: 47858315 ; Contributor System: PowerChart ; Last Updated: 08/04/2020 11:53 EDT ; Life Cycle Date: 08/04/2020 ; Life Cycle Status: Active ; Vocabulary: SNOMED CT Impaired vision in both eyes (SNOMED CT :5464158110 ) Name of Problem: Impaired vision in both eyes ; Recorder: AUSTIN FOFANA RN; Confirmation: Confirmed ; Classification: Patient Stated ; Code: 5574384003 ; Contributor System: PowerChart ; Last Updated: 12/03/2019 9:57 EST ; Life Cycle Date: 12/03/2019 ; Life Cycle Status: Active ; Vocabulary: SNOMED CT Right bundle branch block (SNOMED CT :73245728 ) Name of Problem: Right bundle branch block ; Recorder: AV KING RN; Confirmation: Confirmed ; Classification: Patient Stated ; Code: 39561517 ; Contributor System: PowerChart ; Last Updated: 09/11/2019 7:12 EST ; Life Cycle Date: 09/11/2019 ; Life Cycle Status: Active ; Vocabulary: SNOMED CT Shortness of breath (SNOMED CT :973831216 ) Name of Problem: Shortness of breath ; Recorder: HILDA ANTHONY RN; Confirmation: Confirmed ; Classification: Medical ; Code: 307861925 ; Contributor System: [employer] ; Last Updated: 10/26/2019 9:34 EST ; Life Cycle Date: 10/26/2019 ; Life Cycle Status: Active ; Vocabulary: SNOMED CT Wears glasses (SNOMED CT :561124593 ) Name of Problem: Wears glasses ; Recorder: HILDA ANTHONY RN; Confirmation: Confirmed ; Classification: Medical ; Code: 025800770 ; Contributor System: [employer] ; Last Updated: 10/26/2019 9:32 EST ; Life Cycle Date: 10/26/2019 ; Life Cycle Status: Active ; Vocabulary: SNOMED CT Diagnoses(Active) Chest pain Date: 06/02/2021 ; Diagnosis Type: Reason For Visit ; Confirmation: Complaint of ; Clinical Dx: Chest pain ; Classification: Medical ; Clinical Service: Non-Specified ; Code: PNED ; Probability: 0 ; Diagnosis Code: [id number] Weakness Date: 06/02/2021 ; Diagnosis Type: Reason For Visit ; Confirmation: Complaint of ; Clinical Dx: Weakness ; Classification: Medical ; Clinical Service: Non-Specified ; Code: PNED ; Probability: 0 ; Diagnosis Code: [id number] ED Height and Weight Height Source : Stated Height Entry Format : [place] Height, Feet : 5 ft(Converted to: 152 cm, 60 Inch) Height, Inches : 9 Inch(Converted to: 0 ft 9 Inch, 22.86 cm) Clinical Height : 175.26 cm Weight Source, ED : Standing scale Weight Entry Format : [place] Weight, Pounds : 198.4 lb Clinical Dosing Weight : 90.18 kg Body Surface Area (BSA) : 2.06 m2 Body Mass Index : 29.4 kg/m2 (HI) [place] Body Weight (IBW) : 69.73 kg Marisela Mendenhall RN - 06/02/2021 10:01 EDT Electronically signed by Nikita [facility] Conversion [employer] Professional Cerner at 01/26/2023 8:50 PM CDT documented in this encounter Plan of Treatment Not on file documented as of this encounter Visit Diagnoses Not on filedocumented in this encounter
--- OUTSIDE RECORDS SUMMARY | 2025-03-28 10:42 | XMS_ITS | Encounter Summary ---
Author Organization [employer] Address [address] [place] [address] Care Team Providers Care Sales Assistant Displays Name Role Phone Unavailable Primary Care Provider Unavailabl e Encounter Details Date Type Department Care Team (Late st Contact Info) Description 10/30/2019 Transcribed Document [facility] [place] [address] [place] [address] ProviderPrasanth MD [facility] [place] [address] Social History Tobacco Use Types Packs/Day Years Used Date Smoking Tobacco: Never Assessed Sex and Gender Information Value Date Recorded Sex Assigned at Not on file Legal Sex Male 6:49 PM CDT Gender Identity Not on file Sexual Orientation Not on file documented as of this encounter Miscellaneous Notes * Cerner Conversion Note - Historical ProviderMD - 10/30/2019 3:13 PM REELING MACHINE OPERATOR Nursing Discharge Summary Entered On: 10/30/2019 15:14 EST Performed On: 10/30/2019 15:13 EST by Jason Thompson, loan servicing officer Documentation Discharge Date/Time : 10/30/2019 15:13 EST Patient Disposition, General : Discharge Discharge To : Home with ambulatory/outpatient follow-up Mode Of Departure, General Discharge : Private vehicle Accompanied By, Discharge : Spouse IV Discontinued : Yes Medications Given to Patient : No Personal Belongings With Patient : Yes Pt's Own Supply of Medications Returned : No Prescriptions Given to Patient : Electronically sent Discharge Instructions Reviewed With, Opportunity For Questions Given : Patient, Spouse Patient Education Completed : Yes Teaching Method : Explanation, Printed materials Teaching Evaluation : Verbalizes understanding Jason Thompson, RN - 10/30/2019 15:13 EST Electronically signed by Nikita [facility] Conversion Cartridge Belt Puncher Cerner at 01/26/2023 8:54 PM CDT documented in this encounter Plan of Treatment Not on file documented as of this encounter Visit Diagnoses Not on filedocumented in this encounter
--- OUTSIDE RECORDS SUMMARY | 2025-03-28 10:42 | XMS_ITS | Encounter Summary ---
Author Organization [employer] [facility] Address [address] [place] [address] Care Team Providers Care Guest Service Manager Name Role Phone Unavailable Primary Care Provider Unavailabl e Encounter Details Date Type Department Care Team (Late st Contact Info) Description 11/04/2019 Transcribed Document [facility] [place] [address] [place] [address] ProviderPrasanth MD [address] [place] [address] Social History Tobacco Use Types Packs/Day Years Used Date Smoking Tobacco: Never Assessed Sex and Gender Information Value Date Recorded Sex Assigned at Not on file Legal Sex Male 6:49 PM CDT Gender Identity Not on file Sexual Orientation Not on file documented as of this encounter Miscellaneous Notes * Cerner Conversion Note - Historical ProviderMD - 11/04/2019 9:17 PM SENIOR ACCOUNTS PAYABLE CLERK Consult Phone Call Documentation Entered On: 11/05/2019 8:19 EST Performed On: 11/04/2019 21:17 EST by Iris Banerjee [facility] Unit Coord Phone Call for Consults Consult Phone Call/Page Attempt : First call Consult Reason : traumatic subdural Physician Requesting Consult : RASHAUN FERRARI MD-INT Physician Requested for Consult : LESLY CHIANG MD-SNU Provider Service Notified Name : Neurosurgery Consult, Additional Information : called to office Iris Banerjee, [facility] Unit Coord - 11/05/2019 8:18 EST documented in this encounter Plan of Treatment Not on file documented as of this encounter Visit Diagnoses Not on filedocumented in this encounter
--- OUTSIDE RECORDS SUMMARY | 2025-03-28 10:42 | XMS_ITS | Referral Summary ---
Author Organization [employer] Address [address] [place] [address] Care Team Providers Care Coverage Specialist Rn Name Role Phone Unavailable Primary Care Provider Unavailabl e Social History Tobacco Use Types Packs/Day Years Used Date Smoking Tobacco: Never Assessed Sex and Gender Information Value Date Recorded Sex Assigned at Not on file Legal Sex Male 6:49 PM CDT Gender Identity Not on file Sexual Orientation Not on file Plan of Treatment Not on file
--- OUTSIDE RECORDS SUMMARY | 2025-03-28 10:42 | XMS_ITS | Encounter Summary ---
Author Organization [employer] Address [address] [place] [address] Care Team Providers Care Early Childhood Education Specialist Name Role Phone Unavailable Primary Care Provider Unavailabl e Encounter Details Date Type Department Care Team (Late st Contact Info) Description 11/04/2019 Transcribed Document [facility] [place] [address] [place] [address] ProviderPrasanth MD [facility] [place] [address] Social History Tobacco Use Types Packs/Day Years Used Date Smoking Tobacco: Never Assessed Sex and Gender Information Value Date Recorded Sex Assigned at Not on file Legal Sex Male 6:49 PM CDT Gender Identity Not on file Sexual Orientation Not on file documented as of this encounter Miscellaneous Notes * Cerner Conversion Note - Historical ProviderMD - 11/04/2019 10:58 PM ROOFING LABORER ED Event Note Entered On: 11/04/2019 22:59 EST Performed On: 11/04/2019 22:58 EST by Loraine Oropeza RN ED Event Note ED Event Date/Time : 11/04/2019 22:58 EST ED Event Location : Assigned room ED Event Details : Other: admission report ED Description of Event : Report called to WILL Perez. Will trasport patient to SICU bed 2. Loraine Oropeza RN - 11/04/2019 22:58 EST documented in this encounter Plan of Treatment Not on file documented as of this encounter Visit Diagnoses Not on filedocumented in this encounter
--- OUTSIDE RECORDS SUMMARY | 2025-03-28 10:42 | XMS_ITS | Encounter Summary ---
Author Organization [employer] Address [address] [place] [id number] Care Team Providers Care Horse Trainer Name Role Phone Unavailable Primary Care Provider Unavailabl e Encounter Details Date Type Department Care Team (Late st Contact Info) Description 08/05/2020 Transcribed Document [facility] Family Medicine [facility] [address] ProviderPrasanth [place] [address] Social History Tobacco Use Types Packs/Day Years Used Date Smoking Tobacco: Never Assessed Sex and Gender Information Value Date Recorded Sex Assigned at Not on file Legal Sex Male 6:49 PM CDT Gender Identity Not on file Sexual Orientation Not on file documented as of this encounter Miscellaneous Notes * Cerner Conversion Note - Prasanth Sanchez MD - 08/05/2020 6:29 PM CDT Patient: SHIRA GARZA MRN: - Age: 85 Years Sex: Male : 1935 Subjective Both cardiology services were kind enough to see the patient and help with difficult situation with his valve replacement. It appears troponin leak and demand mismatch that likely due to outflow obstruction rather than coronary vessel blockages. Patient had no further pain after sudden resolution and suspect that outflow obstruction may have been restricted more than visible on echo for brief period of time. Will observe patient to in the morning and starts Eliquis and if patient is otherwise safe and stable will likely transition him to home thereafter. Vital Signs T: 37 ??C TMIN: 36.3 ??C TMAX: 37 ??C HR: 60(Monitored) RR: 18 BP: 114/79 SpO2: 97% HT: 175.26 cm WT: 88.64 kg BMI: 28.9 Oxygen Settings (Last) Oxygen Therapy Mode: Room air (08/05/20 18:13:00) Intake & Output Totals Last 24 Hours (7a-7a) Input Total: 1000 mL Output Total: 0 mL Balance: 1000 mL Physical Exam Awake alert pleasantly conversant oriented x4 in no acute distress denies any discomfort whatsoever he appears to be neurologically intact with good strength coordination balance and gait. He has normal speech pattern thought processes and appears capable of consent. HEENT normocephalic atraumatic PERRLA EOMI no conjunctivitis no scleral icterus oropharynx is clear moist membranes Neck supple no JVD no thyromegaly Lungs clear to auscultation bilaterally Heart regular rate on exam but EKG may show some atrial fibrillation and I do not appreciate any significant murmur during recumbent exam Abdomen no bowel sounds soft nontender nondistended no organomegaly Extremities without clubbing cyanosis or edema distal pulses 2+ equal bilaterally, warm well perfused capillary refill less than 3 seconds Assessment/Plan Acute non-ST elevation myocardial infarction (NSTEMI) Elevated troponin in the setting of known clear coronaries on recent heart catheterization per Dr. Easley. Aspirin will be given and Imdur has been started by cardiology. No EKG changes and echocardiogram is pending. Possibly mismatch type II troponin leak from severe aortic stenosis with clot on valve leaflets from TAVR bioprosthetic valve complication. 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 Patient is being followed closely on warfarin for clot on valve leaflets. Echocardiogram is pending for today Hypertension We will add beta-dalila low-dose to lisinopril Bioprosthetic heart valve clot INR is greater than 5 we will adjust warfarin carefully while here. Cardiology has recommended transitioning to Eliquis 5 mg twice daily after INR is less than 3 so we will recheck in the morning as it should be less than 3 and we will start Eliquis at that time S/p TAVR (transcatheter aortic valve replacement), bioprosthetic Continue to try to rescue patient from valve leaflet clot and no direct intervention with catheter-based studies will be done at this time. We will observe patient until tomorrow start nuchal anticoagulation and likely let him go home if no further events VTE Prophylaxis - Medical Apixaban 5 mg, Oral, Tab, [id number], Routine, Start 08/06/20 7:00:00 EDT, 08/06/20 7:00:00 EDT (CJ AVITIA) Medications aspirin, 81 mg= 1 Tab, Oral, Daily Eliquis, 5 mg= 1 Tab, Oral, [id number] hydroCHLOROthiazide, 12.5 mg= 0.5 Tab, Oral, Daily Imdur, 15 mg= 0.5 Tab, Oral, Daily lisinopril, 20 mg= 1 Tab, Oral, Daily metoprolol tartrate, 25 mg= 1 Tab, Oral, BID morphine, 2 mg= 1 mL, IV Push, Q2H, PRN Nitrostat, 0.4 mg= 1 Tab, SubLINgual, Q5Min, PRN Lab Results Test Name Test Result Date/Time Sodium Level 139 mmol/L 08/05/2020 09:31 EDT Potassium Level 3.8 mmol/L 08/05/2020 09:31 EDT Chloride Level 107 mmol/L 08/05/2020 09:31 EDT Carbon Dioxide Level 30 mmol/L 08/05/2020 09:31 EDT Anion Gap 6 (Low) 08/05/2020 09:31 EDT Glucose Level 106 mg/dL 08/05/2020 09:31 EDT Blood Urea Nitrogen 27 mg/dL (High) 08/05/2020 09:31 EDT Creatinine Level 1.20 mg/dL 08/05/2020 09:31 EDT eGFR >60 mL/min/1.73m2 08/05/2020 09:31 EDT eGFR NonAfrican 58 mL/min/1.73m2 (Low) 08/05/2020 09:31 EDT Bun/Creatinine 22.5 (High) 08/05/2020 09:31 EDT Calcium Level 8.6 mg/dL 08/05/2020 09:31 EDT Protein Total 6.6 Gram/dL 08/05/2020 09:31 EDT Albumin Level 3.2 Gram/dL (Low) 08/05/2020 09:31 EDT Globulin 3.4 Gram/dL 08/05/2020 09:31 EDT A/G Ratio 0.9 (Low) 08/05/2020 09:31 EDT Bilirubin Total 0.5 mg/dL 08/05/2020 09:31 EDT Alk Phos 62 Units/Liter 08/05/2020 09:31 EDT AST 27 Units/Liter 08/05/2020 09:31 EDT ALT 25 Units/Liter 08/05/2020 09:31 EDT Device Comment 1 Notified Nurse RBV 08/05/2020 16:08 EDT Device Comment 1 Notified Nurse RBV 08/05/2020 10:54 EDT Glucose POC2 142 mg/dL (High) 08/05/2020 16:08 EDT Glucose POC2 105 mg/dL 08/05/2020 10:54 EDT Troponin I Ultra 3.120 ng/mL (Critical) 08/04/2020 21:47 EDT WBC 4.4 K/uL 08/05/2020 09:31 EDT RBC 4.60 Million/uL 08/05/2020 09:31 EDT Hgb 13.3 g/dL (Low) 08/05/2020 09:31 EDT Hct 41.4 % 08/05/2020 09:31 EDT MCV 90.0 fL 08/05/2020 09:31 EDT MCH 28.9 pg 08/05/2020 09:31 EDT MCHC 32.1 Gram/dL (Low) 08/05/2020 09:31 EDT Platelet Count 122 K/uL (Low) 08/05/2020 09:31 EDT MPV 12.7 fL (High) 08/05/2020 09:31 EDT RDW 14.0 % 08/05/2020 09:31 EDT Slide Review No 08/05/2020 09:31 EDT PT 42.5 Second(s) (High) 08/05/2020 12:32 EDT INR 4.0 (High) 08/05/2020 12:32 EDT documented in this encounter Plan of Treatment Not on file documented as of this encounter Visit Diagnoses Not on filedocumented in this encounter
--- OUTSIDE RECORDS SUMMARY | 2025-03-28 10:42 | XMS_ITS | Encounter Summary ---
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 Name Role Phone Unavailable Primary Care Provider Unavailabl e Encounter Details Date Type Department Care Team (Late st Contact Info) Description 09/11/2019 Transcribed Document [facility] Family Medicine [address] [place] [address] ProviderPrasanth MD [facility] [place] [address] Social History Tobacco Use Types Packs/Day Years Used Date Smoking Tobacco: Never Assessed Sex and Gender Information Value Date Recorded Sex Assigned at Not on file Legal Sex Male 6:49 PM CDT Gender Identity Not on file Sexual Orientation Not on file documented as of this encounter Miscellaneous Notes * Cerner Conversion Note - Prasanth Sanchez MD - 09/11/2019 11:52 AM 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 [facility] [place] [address] SHIRA GARZA HORACIO :1935 Visit Time:09/11/2019 Your Visit Summary Your Care Team Admitting Physician - LACIE ALVA MD-CAR Attending Physician - LACIE ALVA MD-CAR Primary Care Physician - KARON MCWILLIAMS MD-INT Referring Physician - LACIE ALVA MD-ANN MARIE Your Diagnosis Angina pectoris, unspecified, Angina pectoris, unspecified Aortic valve disease Discharge Vitals Temperature 36.3 ??C Heart Rate (Monitored) 44 Respiratory Rate 24 Blood Pressure 158/77 What to do next Instructions From Your Care Team Diet after Discharge: Resume usual diet as tolerated, Activity after Discharge: As tolerated, Rest and relax today, _ Lifting Restrictions: No heavy lifting over 10 pounds for 5 days Driving after Discharge: Do not drive for 24 hours Showering/Bathing: May shower in the Am, Wound/Incision Care after Discharge: Keep operative site/wound site clean and dry, remove dressing in the am, Follow-Up Appointments Follow Up with LACIE ALVA MD-CAR When Within 2 to 3 days Comments Office to call with appoint/instructions Where: [address] [place] [address]- [phone] Medications What How Much When Instructions Next Dose aspirin (aspirin 81 mg oral tablet) 1 Tablet(s) Oral Every Day atorvastatin See Instructions 20 mg Oral Daily lisinopril (lisinopril 20 mg oral tablet) Oral Every Day multivitamin Every Day Take your medications faithfully. Do NOT skip medication. Do NOT stop taking medications without the direction of a physician. Carry a list of your medications with you at all times, and take this medication list with you to your first follow up visit. Report any side effects. Avoid herbal remedies unless discussed with your physician. As part of your treatment plan, your physician may have prescribed a limited course of a controlled substance. This medication may be given to help people with moderate or severe pain or for other medical conditions, but there are risks involved with treatment. Common side effects may include nausea, constipation, drowsiness, sweating, itching, dry mouth, and rash. More serious side effects may include cognitive and motor impairment, like problems with thinking, concentrating, alertness, and movement (e.g. slowed reflexes), and driving and operating heavy machinery can be dangerous. It is important for you to talk to your physician if you have these side effects or questions. These controlled substances can produce physical dependence and be habit-forming if taken for an extended period of time, which means that the body has gotten used to them and may experience withdrawal symptoms if they are abruptly stopped. Withdrawal symptoms can include runny nose, sweating, goose bumps, diarrhea, abdominal cramping, rapid heartbeat, difficulty sleeping, and nervousness. Please dispose of unused and medications per your retail pharmacy guidance. Allergies amiodarone Immunizations This Visit No Immunizations Found Education Materials Groin Site Care Refer to this sheet in the next few weeks. These instructions provide you with information on caring for yourself after your procedure. Your caregiver may also give you more specific instructions. Your treatment has been planned according to current medical practices, but problems sometimes occur. Call your caregiver if you have any problems or questions after your procedure. HOME CARE INSTRUCTIONS ??? You may shower 24 hours after the procedure. Remove the bandage (dressing ) and gently wash the site with plain soap and water. Gently pat the site dry. ??? Do not apply powder or lotion to the site. ??? Do not sit in a bathtub, swimming pool, or whirlpool for 5 to 7 days. ??? No bending, squatting, or lifting anything over 10 pounds (4.5 kg) as directed by your caregiver. ??? Inspect the site at least twice daily. ??? Do not drive home if you are discharged the same day of the procedure. Have someone else drive you. ??? You may drive 24 hours after the procedure unless otherwise instructed by your caregiver. What to expect: ??? Any bruising will usually fade within 1 to 2 weeks. ??? Blood that collects in the tissue (hematoma ) may be painful to the touch. It should usually decrease in size and tenderness within 1 to 2 weeks. SEEK IMMEDIATE MEDICAL CARE IF: ??? You have unusual pain at the groin site or down the affected leg. ??? You have redness, warmth, swelling, or pain at the groin site. ??? You have drainage (other than a small amount of blood on the dressing). ??? You have chills. ??? You have a fever or persistent symptoms for more than 72 hours. ??? You have a fever and your symptoms suddenly get worse. ??? Your leg becomes pale, cool, tingly, or numb. ??? You have heavy bleeding from the site. Hold pressure on the site. Document Released: 10/29/2011 Document Revised: 12/18/2012 Document Reviewed: 10/29/2011 ExitCare?? Patient Information ??2013 ExitCare, [employer]. Moderate Conscious Sedation, Adult, Care After These instructions provide you with information about caring for yourself after your procedure. Your health care provider may also give you more specific instructions. Your treatment has been planned according to current medical practices, but problems sometimes occur. Call your health care provider if you have any problems or questions after your procedure. What can I expect after the procedure? After your procedure, it is common: ??? To feel sleepy for several hours. ??? To feel clumsy and have poor balance for several hours. ??? To have poor judgment for several hours. ??? To vomit if you eat too soon. Follow these instructions at home: For at least 24 hours after the procedure: ??? Do not: ? Participate in activities where you could fall or become injured. ? Drive. ? Use heavy machinery. ? Drink alcohol. ? Take sleeping pills or medicines that cause drowsiness. ? Make important decisions or sign legal documents. ? Take care of children on your own. ??? Rest. Eating and drinking ??? Follow the diet recommended by your health care provider. ??? If you vomit: ? Drink water, juice, or soup when you can drink without vomiting. ? Make sure you have little or no nausea before eating solid foods. General instructions ??? Have a responsible adult stay with you until you are awake and alert. ??? Take [id number] and prescription medicines only as told by your health care provider. ??? If you smoke, do not smoke without supervision. ??? Keep all follow-up visits as told by your health care provider. This is important. Contact a health care provider if: ??? You keep feeling nauseous or you keep vomiting. ??? You feel light-headed. ??? You develop a rash. ??? You have a fever. Get help right away if: ??? You have trouble breathing. This information is not intended to replace advice given to you by your health care provider. Make sure you discuss any questions you have with your health care provider. Document Released: 07/17/2014 Document Revised: 02/28/2017 Document Reviewed: 01/15/2017 [employer] Patient Education ?? 2019 [employer] Emergency Awareness and Preventative Care STROKE is an EMERGENCY Every Minute Counts Act FAST and Check for these signs: FACE Does the face look uneven? ARM Does one arm drift down? SPEECH Does their speech sound strange? TIME Call at any sign of stroke Stroke Risk Factors Atrial Fibrillation (irregular heartbeat) Diabetes Family history of stroke Heart Disease Heavy alcohol use High Blood Pressure High Cholesterol Physical inactivity and obesity Smoking Cigarette Smoking The facts are clear, cigarette smoking will shorten your life. Smoking can cause many illnesses along the way. As a healthcare provider, we recommend that you stop smoking. Assistance with quitting is available by contacting 4-288-PHYNNOW. This is a free resource providing counseling, support, and referral. Or you may contact your personal physician. National Suicide Prevention Lifeline: The National Suicide Prevention Lifeline is a national network of local crisis centers that provides free and confidential emotional support to people in suicidal crisis or emotional distress 24 hours a day, 7 days a week. Don't Wait! Stop a Heart Attack Before it Starts What is a heart attack? A heart attack is damage or to a part of the heart from severely decreased or lack of blood flow to the heart. Over time, arteries can become narrow from the buildup of fat and cholesterol, which is called plaque. The plaque can rupture causing a blood clot to form. When the blood clot forms, the artery can become severely narrowed or completely blocked, causing a heart attack. Heart attack is the leading cause of in the [place]. 85% of muscle damage occurs within the first 2 hours. Delay in the recognition of heart attack symptoms increases the chances of . Know the early symptoms of a heart attack: Nausea Feeling of fullness in chest Jaw Pain Pain that travels down one or both arms Fatigue/being tired Anxiety Back Pain Chest pressure, squeezing, or discomfort Shortness of breath Sweating, or a cold sweat Feeling of impending doom There are unusual signs of a heart attack, too! Women, the elderly, and diabetics may present with atypical symptoms: Fainting/dizziness Weakness Confusion Risk Factors for a Heart Attack Some heart disease risk factors, such as age and family history, cannot be changed. Others, like smoking and lack of exercise, can be changed. Smoking High Cholesterol High Blood Pressure Family History Obesity Age Gender (Males are at higher risk) Lack of Exercise Diabetes Diet Stress Excessive Alcohol Intake If you or someone you know is experiencing the signs and symptoms of a heart attack, DON???T DELAY. Call immediately and seek help. If someone collapses, perform CPR! Do not attempt to drive if you are having symptoms of heart attack. Hands-Only CPR Why Hands-Only CPR? Hands-Only CPR has been shown to be as effective as conventional CPR for cardiac arrests that occur outside of a hospital. Survival depends on immediately receiving CPR from someone nearby. How do you perform Hands-Only CPR? There are two easy steps: Call 9-1-1 if you see a teen or adult collapse Push hard and fast in the center of the chest at a beat of 100 beats per minute. Save a life! 4 WAYS TO GET AHEAD OF SEPSIS SEPSIS is a MEDICAL EMERGENCY. Time matters! Infections put you and your family at risk for a life-threatening condition called sepsis. Sepsis is the body's extreme response to an infection. It is life-threatening, and without timely treatment, sepsis can rapidly lead to tissue damage, organ failure, and . Sepsis happens when an infection you already have-in your skin, lungs, urinary tract or somewhere else-triggers a chain reaction throughout your body. 1 PREVENT INFECTIONS Take good care of chronic conditions. Talk to your doctor about getting the recommended vaccines. 2 PRACTICE GOOD HYGIENE Wash your hands frequently. Keep cuts or open sores clean and covered until they are healed. 3 KNOW THE SYMPTOMS Confusion or disorientation Shortness of breath High heart rate Fever, shivering, or feeling very cold Extreme pain or discomfort Clammy or sweaty skin 4 ACT FAST Get medical care IMMEDIATELY if you suspect sepsis or if you have an infection that is not getting better or is getting worse. To learn more about sepsis and how to prevent infections, visit www.cdc.gov/sepsis. Test Results Laboratory or Other Results This Visit (last charted value for your 09/11/2019 visit) Hematology 09/11/2019 6:15 AM Platelet Count: 150 K/uL -- Normal range between ( 163 and 369 ) Patient Name:SHIRA GARZA I have received and understand this information and was given the opportunity to ask questions. Patient/Cloth Weaver Name: Patient/Cloth Weaver Signature: Relationship to Patient: Clinician/Hospital Cloth Weaver Signature: Date: Electronically signed by Interface, [facility] Conversion Door Patcher Richard at 01/26/2023 9:08 PM CDT documented in this encounter Plan of Treatment Not on file documented as of this encounter Visit Diagnoses Not on filedocumented in this encounter
--- OUTSIDE RECORDS SUMMARY | 2025-03-28 10:42 | XMS_ITS | Encounter Summary ---
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 Name Role Phone Unavailable Primary Care Provider Unavailabl e Encounter Details Date Type Department Care Team (Late st Contact Info) Description 11/04/2019 Transcribed Document [facility] [place] Family Medicine [facility] [place] [address] ProviderPrasanth MD [address] [place] [address] [id number] Social History Tobacco Use Types Packs/Day Years Used Date Smoking Tobacco: Never Assessed Sex and Gender Information Value Date Recorded Sex Assigned at Not on file Legal Sex Male 6:49 PM CDT Gender Identity Not on file Sexual Orientation Not on file documented as of this encounter Miscellaneous Notes * Cerner Conversion Note - Prasanth ProviderMD - 11/04/2019 7:33 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 Pt also c/o head and arm pain r/t falling yesterday and hitting the wall. Pt denies LOC. Pt on plavix. Triage Date/Time : 11/04/2019 19:39 EST RADHA COVINGTON Rn - 11/04/2019 19:39 EST DCP GENERIC CODE Tracking Acuity : 2 - Emergent Tracking Group : [facility] ED RADHA COVINGTON Rn - 11/04/2019 19:39 EST Mode of Arrival : Ambulatory Transported to ED by : Private vehicle To Room Via : Ambulate Accompanied By : Spouse ED Vital Signs : Document Height & Weight : Document ED Allergies : Document ED Infection Control : No ED Reason for Visit : Document RADHA COVINGTON Rn - 11/04/2019 19:39 EST Infectious Disease History Physical contact outside [place] in the last 30 days : No Infectious Disease History : Chicken pox/Shingles, Influenza, Measles, Mumps, Pertussis (Whooping cough) Tuberculosis Symptoms : None RADHA COVINGTON Rn - 11/04/2019 19:39 EST Vital Signs ED Temperature Source : Oral Temperature Mode : Fahrenheit Temperature, Fahrenheit : 97.5 Deg F ED Pain : Yes Clinical Temperature, C : 36.4 Deg C Peripheral Pulse Rate : 48 bpm (LOW) Respiratory Rate : 16 Breaths/Min Oxygen Saturation : 96 % RADHA COVINGTON Rn - 11/04/2019 19:39 EST Allergy (As Of: 11/04/2019 19:42:51 EST) Allergies (Active) amiodarone Estimated Onset Date: Unspecified ; Reactions: Unknown ; Created By: HILDA ANTHONY RN; Reaction Status: Active ; Category: Drug ; Substance: amiodarone ; Type: Allergy ; Updated By: HILDA ANTHONY RN; Reviewed Date: 11/04/2019 19:42 EST Diagnosis Control ED (As Of: 11/04/2019 19:42:51 EST) Problems(Active) Aortic stenosis (SNOMED CT :130316532 ) Name of Problem: Aortic stenosis ; Recorder: RADHA TERRAZAS RN; Confirmation: Confirmed ; Classification: Patient Stated ; Code: [id number] ; Contributor System: [employer] ; Last Updated: 11/14/2018 7:27 EST ; Life Cycle Date: 11/14/2018 ; Life Cycle Status: Active ; Vocabulary: SNOMED CT At risk for sleep apnea (IMO :18291858 ) Name of Problem: At risk for sleep apnea ; Recorder: SYSTEM, SYSTEM; Confirmation: Confirmed ; Classification: Medical ; Code: 91770186 ; Last Updated: 11/14/2018 7:19 EST ; Life Cycle Date: 11/14/2018 ; Life Cycle Status: Active ; Vocabulary: IMO Atrial flutter (SNOMED CT :2370927 ) Name of Problem: Atrial flutter ; Recorder: RADHA TERRAZAS RN; Confirmation: Confirmed ; Classification: Patient Stated ; Code: 3948888 ; Contributor System: [employer] ; Last Updated: 11/14/2018 7:26 EST ; Life Cycle Date: 11/14/2018 ; Life Cycle Status: Active ; Vocabulary: SNOMED CT Benign neoplastic disease (SNOMED CT :57827548 ) Name of Problem: Benign neoplastic disease ; Recorder: AV KING RN; Confirmation: Confirmed ; Classification: Patient Stated ; Code: 09184951 ; Contributor System: PowerChart ; Last Updated: 09/11/2019 7:15 EST ; Life Cycle Date: 09/11/2019 ; Life Cycle Status: Active ; Vocabulary: SNOMED CT CAD (coronary artery disease) (SNOMED CT :34613703 ) Name of Problem: CAD (coronary artery disease) ; Recorder: RADHA TERRAZAS RN; Confirmation: Confirmed ; Classification: Patient Stated ; Code: 69498944 ; Contributor System: PowerChart ; Last Updated: 11/14/2018 7:27 EST ; Life Cycle Date: 11/14/2018 ; Life Cycle Status: Active ; Vocabulary: SNOMED CT Hyperlipidemia (SNOMED CT :13292027 ) Name of Problem: Hyperlipidemia ; Recorder: AV KING RN; Confirmation: Confirmed ; Classification: Patient Stated ; Code: 40239721 ; Contributor System: PowerChart ; Last Updated: 09/11/2019 6:25 EST ; Life Cycle Date: 09/11/2019 ; Life Cycle Status: Active ; Vocabulary: SNOMED CT Hypertension (SNOMED CT :14505158 ) Name of Problem: Hypertension ; Recorder: HILDA ANTHONY RN; Confirmation: Confirmed ; Classification: Medical ; Code: 99590828 ; Contributor System: PowerChart ; Last Updated: 10/26/2019 9:33 EST ; Life Cycle Date: 10/26/2019 ; Life Cycle Status: Active ; Vocabulary: SNOMED CT Renal calculus (SNOMED CT :856332461 ) Name of Problem: Renal calculus ; Recorder: RADHA TERRAZAS RN; Confirmation: Confirmed ; Classification: Patient Stated ; Code: 796843387 ; Contributor System: PowerChart ; Last Updated: 11/14/2018 7:30 EST ; Life Cycle Date: 11/14/2018 ; Life Cycle Status: Active ; Vocabulary: SNOMED CT Right bundle branch block (SNOMED CT :68818403 ) Name of Problem: Right bundle branch block ; Recorder: AV KING RN; Confirmation: Confirmed ; Classification: Patient Stated ; Code: 32433850 ; Contributor System: PowerChart ; Last Updated: 09/11/2019 7:12 EST ; Life Cycle Date: 09/11/2019 ; Life Cycle Status: Active ; Vocabulary: SNOMED CT Shortness of breath (SNOMED CT :706148974 ) Name of Problem: Shortness of breath ; Recorder: HILDA ANTHONY RN; Confirmation: Confirmed ; Classification: Medical ; Code: 423396461 ; Contributor System: GazzangChart ; Last Updated: 10/26/2019 9:34 EST ; Life Cycle Date: 10/26/2019 ; Life Cycle Status: Active ; Vocabulary: SNOMED CT Wears glasses (SNOMED CT :821694020 ) Name of Problem: Wears glasses ; Recorder: HILDA ANTHONY RN; Confirmation: Confirmed ; Classification: Medical ; Code: 551474877 ; Contributor System: [employer] ; Last Updated: 10/26/2019 9:32 EST ; Life Cycle Date: 10/26/2019 ; Life Cycle Status: Active ; Vocabulary: SNOMED CT Diagnoses(Active) Dizziness Date: 11/04/2019 ; Diagnosis Type: Reason For Visit ; Confirmation: Complaint of ; Clinical Dx: Dizziness ; Classification: Medical ; Clinical Service: Emergency medicine ; Code: PNED ; Probability: 0 ; Diagnosis Code: [id number] ED Height and Weight Height Source : Stated Height Entry Format : [place] Height, Feet : 5 ft(Converted to: 152 cm, 60 Inch) Height, Inches : 9 Inch(Converted to: 0 ft 9 Inch, 22.86 cm) Clinical Height : 175.26 cm Weight Source, ED : Critical estimated dosing weight Weight Entry Format : [place] Weight, Pounds : 195 lb Clinical Dosing Weight : 88.64 kg Body Surface Area (BSA) : 2.05 m2 Body Mass Index : 28.9 kg/m2 (HI) [place] Body Weight (IBW) : 69.73 kg RADHA COVINGTON Rn - 11/04/2019 19:39 EST Pain Assessment Pain Assessment : Initial assessment Pain Scale Used : 0-10 Scale RADHA COVINGTON Rn - 11/04/2019 19:39 EST Pain Scale Intensity : 2 RADHA COVINGTON Rn - 11/04/2019 19:39 EST Image 4 - Images currently included in the form version of this document have not been included in the text rendition version of the form. documented in this encounter Plan of Treatment Not on file documented as of this encounter Visit Diagnoses Not on filedocumented in this encounter
--- OUTSIDE RECORDS SUMMARY | 2025-03-28 10:42 | XMS_ITS | Encounter Summary ---
Author Organization [employer] Address [address] [place] [address] Care Team Providers Care Supervisor Mattress And Boxsprings Name Role Phone Unavailable Primary Care Provider Unavailabl e Encounter Details Date Type Department Care Team (Late st Contact Info) Description 11/14/2018 Transcribed Document [facility] [place] [facility] [place] [address] ProviderPrasanth MD [facility] [place] [address] Social History Tobacco Use Types Packs/Day Years Used Date Smoking Tobacco: Never Assessed Sex and Gender Information Value Date Recorded Sex Assigned at Not on file Legal Sex Male 6:49 PM CDT Gender Identity Not on file Sexual Orientation Not on file documented as of this encounter Miscellaneous Notes * Cerner Conversion Note - Historical ProviderMD - 11/14/2018 7:10 AM YARN WEIGHER Pre Procedure Adult Entered On: 11/14/2018 7:19 EST Performed On: 11/14/2018 7:10 EST by RADHA TERRAZAS RN Height and Weight, Clinical Dosing Height Source : Stated Height Entry Format : [place] Height, Feet : 0 ft(Converted to: 0 cm, 0 Inch) Height, Inches : 69 Inch(Converted to: 5 ft 9 Inch, 175.26 cm) Clinical Height : 175.26 cm Weight Source : Standing scale Weight Entry Format : [place] Clinical Dosing Weight : 88.64 kg Weight, Pounds : 195 lb Body Surface Area (BSA) : 2.05 m2 Body Mass Index : 28.9 kg/m2 (HI) [place] Body Weight : 70 kg RADHA TERRAZAS RN - 11/14/2018 7:10 EST Health Histories Smoking Status : Former smoker, quit more than 30 days ago Smokeless Tobacco Status : Never RADHA TERRAZAS RN - 11/14/2018 7:10 EST Social History (As Of: 11/14/2018 07:19:17 EST) Tobacco: 3 cigs in evening- 1954- 2007. quit 2007. Smoking Status. (Last Updated: 11/14/2018 07:19:01 EST by RADHA TERRAZAS, WILL) Alcohol: Alcohol Use History No. (Last Updated: 11/14/2018 07:19:08 EST by RADHA TERRAZAS, RN) Substance Abuse: Drug Use Hx: No. Use in Last 12 Months: No. (Last Updated: 11/14/2018 07:19:13 EST by RADHA TERRAZAS, RN) Infectious Disease History Infectious Disease History : Chicken pox/Shingles Fever/Chills Last 48 Hours : No Travel To Regions with Travel Advisories : No Travel Outside [place] Within Last 30 Days : No Contact With Traveler to Advisory Region : No Tuberculosis Symptoms : None RADHA TERRAZAS RN - 11/14/2018 7:10 EST Anesthesia/Transfusion History Family History of Anesthesia Reaction : No prior transfusion(s) Blood Transfusion Acceptable to Patient : Yes Transfusion History : No prior anesthesia Family History of Anesthesia Reaction : None RADHA TERRAZAS RN - 11/14/2018 7:10 EST Functional Assessment Living Situation : Home Current Home Treatments : None RADHA TERRAZAS RN - 11/14/2018 7:10 EST Psychosocial History Does Someone Depend on You for Care? : No Currently in Unsafe Situation : No Tried to Harm Yourself in the Past? : No Thoughts of Harming/Killing Yourself : No RADHA TERRAZAS RN - 11/14/2018 7:10 EST Advance Directive Patient has Advance Directive *Q : Yes, Advance Directive not with the patient Advance Directive Type : Living will Copy Advance Directive Verified/on Chart : No Advance Directive Comment : pateint states- not sure if on file- RADHA Kelley RN - 11/14/2018 7:10 EST Teaching/Learning Assessment Learning Style Preferences Patient : Verbal explanation Learning Style Preferences Family : Verbal explanation RADHA TERRAZAS RN - 11/14/2018 7:36 EST Education Topics, Periop Preadmission Perioperative Education Grid IV's : Verbalizes understanding RADHA TERRAZAS RN - 11/14/2018 7:10 EST General Info Want Family/Rep/Phys Notified of Admit : No Emergency Contact #1 : Dianna - - cell - Emergency Contact #1 Phone Number : - Emergency Contact #1 Relationship : - Emergency Contact #2 : - Emergency Contact #2 Phone Number : - Emergency Contact #2 Relationship : - Primary Language : Ukrainian Communication Barrier : None RADHA TERRAZAS RN - 11/14/2018 7:10 EST Vital Measurements Temperature Source : Oral Temperature Mode : Fahrenheit Temperature, Fahrenheit : 97.2 Deg F Clinical Temperature, C : 36.2 Deg C Peripheral Pulse Rate : 74 bpm Respiratory Rate : 20 Breaths/Min Systolic Blood Pressure : 162 mmHg (HI) Diastolic Blood Pressure : 94 mmHg (HI) Vital Measurements Comment : sat - room air- 96 percent RADHA TERRAZAS RN - 11/14/2018 7:35 EST Sleep Apnea Risk Assmt Hx of Obstructive Sleep Apnea Diagnosis : No Snore Loudly : Yes Tired, Fatigued, or Sleepy During Day : Yes Observed Stopping Breathing During Sleep : Yes Have/Are Being Treated for Hypertension : Yes STOP Sleep Apnea Risk Level Score : 4 STOP Sleep Apnea Risk Level : High RADHA TERRAZAS RN - 11/14/2018 7:10 EST Vishnu Scale Vishnu Sensory Perception : No impairment Vishnu Moisture : Rarely moist Vishnu Activity : Walks frequently Vishnu Mobility : No limitation Vishnu Nutrition : Adequate Vishnu Friction and Shear : No apparent problem Vishnu Score : 22 RADHA TERRAZAS RN - 11/14/2018 7:10 EST Oxygen Therapy Oxygen Titrated : No RADHA TERRAZAS RN - 11/14/2018 7:10 EST Pain Assessment Pain Assessment : Initial assessment Pain Scale Goal : 0 Pain Scl Goal Comment : 0 Duration : 0 Pain Scale Used : 0-10 Scale RADHA TERRAZAS RN - 11/14/2018 7:10 EST Fall Risk Scales ABCs Fall Injury Risk Identification : Coagulation ABC Fall Injury Risk : Moderate to high injury risk DEVINE Hx Falls Immediate/Within 3 Months : No Devine Secondary Diagnosis : No DEVINE Use of Ambulatory Aid : None DEVINE IV Therapy or IV Access : No [place] Gait/Transferring : Normal, bedrest, immobile Devine Mental Status : Oriented to own ability DEVINE Fall Scale Risk Level : 0-24 Low Risk [place] Fall Interventions : Wheels locked RADHA TERRAZAS RN - 11/14/2018 7:10 EST Education Topics, Day of Surgery DayofSurgery Education Grid IV's : Verbalizes understanding RADHA TERRAZAS RN - 11/14/2018 7:10 EST Valuables and Belongings Valuables and Belongings : Clothing Clothing : Common streetwear Clothing Disposition : Bedside, Other: one wedding band . glassess. - with RADHA TERRAZAS RN - 11/14/2018 7:10 EST Pain Scale Intensity : 0 RADHA TERRAZAS RN - 11/14/2018 7:10 EST Image 4 - Images currently included in the form version of this document have not been included in the text rendition version of the form. documented in this encounter Plan of Treatment Not on file documented as of this encounter Visit Diagnoses Not on filedocumented in this encounter
--- OUTSIDE RECORDS SUMMARY | 2025-03-28 10:42 | XMS_ITS | Encounter Summary ---
Author Organization [employer] Address [address] [place] [address] Care Team Providers Care Cap Sewer Name Role Phone Unavailable Primary Care Provider Unavailabl e Encounter Details Date Type Department Care Team (Late st Contact Info) Description 10/30/2019 Transcribed Document [facility] [place] [facility] [place] [address] ProviderPrasanth MD [facility] [place], [place] [address] Social History Tobacco Use Types Packs/Day Years Used Date Smoking Tobacco: Never Assessed Sex and Gender Information Value Date Recorded Sex Assigned at Not on file Legal Sex Male 6:49 PM CDT Gender Identity Not on file Sexual Orientation Not on file documented as of this encounter Miscellaneous Notes * Cerner Conversion Note - Historical ProviderMD - 10/30/2019 2:00 AM HAZARDOUS WASTE MANAGEMENT SPECIALIST Communications Consultant Details Entered On: 10/30/2019 4:47 EST Performed On: 10/30/2019 2:00 EST by Rimma Blackmon RN Order Details Order Detail : N/A IV Order Detail : 1 Oxygen Order Detail : 0 Rimma Blackmon RN - 10/30/2019 4:47 EST documented in this encounter Plan of Treatment Not on file documented as of this encounter Visit Diagnoses Not on filedocumented in this encounter
--- OUTSIDE RECORDS SUMMARY | 2025-03-28 10:42 | XMS_ITS | Clinical Summary ---
Author Organization [employer] Address [address] [place] [address] Care Team Providers Care Starch Cooker Name Role Phone Unavailable Primary Care Provider [...]
--- OUTSIDE RECORDS SUMMARY | 2025-03-28 10:42 | XMS_ITS | Encounter Summary ---
Author Organization [employer] Address [address] [place] [address] Care Team Providers Care Stamping Die Maker Name Role Phone Unavailable Primary Care Provider Unavailabl e Encounter Details Date Type Department Care Team (Late st Contact Info) Description 09/25/2019 Transcribed Document [facility] [place] Family Medicine [address] [place] [address] ProviderPrasanth MD [facility] [place] [address] Social History Tobacco Use Types Packs/Day Years Used Date Smoking Tobacco: Never Assessed Sex and Gender Information Value Date Recorded Sex Assigned at Not on file Legal Sex Male 6:49 PM CDT Gender Identity Not on file Sexual Orientation Not on file documented as of this encounter Miscellaneous Notes * Cerner Conversion Note - Prasanth Sanchez MD - 09/25/2019 12:59 PM INFORMATION TECHNOLOGY ASSOCIATE Patient Education Materials Follows: Angiogram, Care After This sheet gives you information about how to care for yourself after your procedure. Your doctor may also give you more specific instructions. If you have problems or questions, contact your doctor. Follow these instructions at home: Insertion site care ??? Follow instructions from your doctor about how to take care of your long, thin tube (catheter) insertion area. Make sure you: ? Wash your hands with soap and water before you change your bandage (dressing). If you cannot use soap and water, use hand straightening machine operator. ? Change your bandage as told by your doctor. ? Leave stitches (sutures), skin glue, or skin tape (adhesive) strips in place. They may need to stay in place for 2 weeks or longer. If tape strips get loose and curl up, you may trim the loose edges. Do not remove tape strips completely unless your doctor says it is okay. ??? Do not take baths, swim, or use a hot tub until your doctor says it is okay. ??? You may shower 24?48 hours after the procedure or as told by your doctor. ? Gently wash the area with plain soap and water. ? Pat the area dry with a clean towel. ? Do not rub the area. This may cause bleeding. ??? Do not apply powder or lotion to the area. Keep the area clean and dry. ??? Check your insertion area every day for signs of infection. Check for: ? More redness, swelling, or pain. ? Fluid or blood. ? Warmth. ? Pus or a bad smell. Activity ??? Rest as told by your doctor, usually for 1?2 days. ??? Do not lift anything that is heavier than 10 lbs. (4.5 kg) or as told by your doctor. ??? Do not drive for 24 hours if you were given a medicine to help you relax (sedative). ??? Do not drive or use heavy machinery while taking prescription pain medicine. General instructions ??? Go back to your normal activities as told by your doctor, usually in about a week. Ask your doctor what activities are safe for you. ??? If the insertion area starts to bleed, lie flat and put pressure on the area. If the bleeding does not stop, get help right away. This is an emergency. ??? Drink enough fluid to keep your pee (urine) clear or pale yellow. ??? Take [id number] and prescription medicines only as told by your doctor. ??? Keep all follow-up visits as told by your doctor. This is important. Contact a doctor if: ??? You have a fever. ??? You have chills. ??? You have more redness, swelling, or pain around your insertion area. ??? You have fluid or blood coming from your insertion area. ??? The insertion area feels warm to the touch. ??? You have pus or a bad smell coming from your insertion area. ??? You have more bruising around the insertion area. ??? Blood collects in the tissue around the insertion area (hematoma) that may be painful to the touch. Get help right away if: ??? You have a lot of pain in the insertion area. ??? The insertion area swells very fast. ??? The insertion area is bleeding, and the bleeding does not stop after holding steady pressure on the area. ??? The area near or just beyond the insertion area becomes pale, cool, tingly, or numb. These symptoms may be an emergency. Do not wait to see if the symptoms will go away. Get medical help right away. Call your local emergency services (911 in the [place] Do not drive yourself to the hospital. Summary ??? After the procedure, it is common to have bruising and tenderness at the long, thin tube insertion area. ??? After the procedure, it is important to rest and drink plenty of fluids. ??? Do not take baths, swim, or use a hot tub until your doctor says it is okay to do so. You may shower 24?48 hours after the procedure or as told by your doctor. ??? If the insertion area starts to bleed, lie flat and put pressure on the area. If the bleeding does not stop, get help right away. This is an emergency. This information is not intended to replace advice given to you by your health care provider. Make sure you discuss any questions you have with your health care provider. Document Released: 12/23/2009 Document Revised: 09/20/2017 Document Reviewed: 09/20/2017 [employer] Interactive Patient Education ? 2019 [employer] Groin Site Care Refer to this sheet [...] questions after your procedure. HOME CARE INSTRUCTIONS ? You may shower 24 hours after the procedure. Remove the bandage (dressing ) and gently wash the site with plain soap and water. Gently pat the site dry. ? Do not apply powder or lotion to the site. ? Do not sit in a bathtub, swimming pool, or whirlpool for 5 to 7 days. ? No bending, squatting, or lifting anything over 10 pounds (4.5 kg) as directed by your caregiver. ? Inspect the site at least twice daily. ? Do not drive home if you are discharged the same day of the procedure. Have someone else drive you. ? You may drive 24 hours after the procedure unless otherwise instructed by your caregiver. What to expect: ? Any bruising will usually fade within 1 to 2 weeks. ? Blood that collects in the tissue (hematoma ) may be painful to the touch. It should usually decrease in size and tenderness within 1 to 2 weeks. SEEK IMMEDIATE MEDICAL CARE IF: ? You have unusual pain at the groin site or down the affected leg. ? You have redness, warmth, swelling, or pain at the groin site. ? You have drainage (other than a small amount of blood on the dressing). ? You have chills. ? You have a fever or persistent symptoms for more than 72 hours. ? You have a fever and your symptoms suddenly get worse. ? Your leg becomes pale, cool, tingly, or numb. ? You have heavy bleeding from the site. Hold pressure on the site. Document Released: 10/29/2011 Document Revised: 12/18/2012 Document Reviewed: 10/29/2011 ExitCare? Patient Information ?2014 [employer]. Moderate Conscious Sedation, Adult, Care After These [...] you are awake and alert. ??? Take [id number] and prescription medicines only as told by [...] 07/17/2014 Document Revised: 02/28/2017 Document Reviewed: 01/15/2017 [employer] Interactive Patient Education ? 2019 [employer] documented in this encounter Plan of Treatment Not on file documented as of this encounter Visit Diagnoses Not on filedocumented in this encounter
--- OUTSIDE RECORDS SUMMARY | 2025-03-28 10:42 | XMS_ITS | Encounter Summary ---
Author Organization [employer] Address [address] [place] [address] Care Team Providers Care Chemical Compounder Helper Name Role Phone Unavailable Primary Care Provider Unavailabl e Encounter Details Date Type Department Care Team (Late st Contact Info) Description 06/03/2021 Transcribed Document [facility] [place] [address] ProviderPrasanth MD [address] [place] [address] [id number] Social History Tobacco Use Types Packs/Day Years Used Date Smoking Tobacco: Never Assessed Sex and Gender Information Value Date Recorded Sex Assigned at Not on file Legal Sex Male 6:49 PM CDT Gender Identity Not on file Sexual Orientation Not on file documented as of this encounter Miscellaneous Notes * Cerner Conversion Note - Prasanth Sanchez MD - 06/03/2021 1:11 PM CDT Patient: SHIRA GARZA HORACIO Age: 85 Years Sex: Male : 1935 Assessment/Plan Elevated troponin Likely non-STEMI once again with chest discomfort but may be involved with valve dysfunction. Echocardiogram will be important to determine how to manage this patient. 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 His presentation with elevated troponin and some transient symptoms downstream also occurred with his aortic valve clots. We will check echocardiogram before starting full therapy of anticoagulation due to his history of head bleeds. Cardiology and neurology will be asked to see the patient due to the history of and possibility of recurrent valvular clot that could be causing cardiac and neurologic symptoms. NSTEMI (non-ST elevated myocardial infarction) Treatment as above aspirin for now with possibility of further anticoagulation needed TIA due to embolism History of aortic valve clots in October 2019 with warfarin stopping about a year ago after many months of anticoagulation. We will do stroke work-up for the patient and consult neurology to see the patient and advise further for work-up and treatment. Weakness, Weakness Right lower extremity weakness clumsiness and poor coordination but he was able to walk when this occurred. This resolved along with chest discomfort and brief expressive aphasia this morning June 02. The neurological symptoms did follow the resolution of the chest discomfort. This is worrisome for thromboembolic disease so work-up is pending VTE Prophylaxis - Medical Sequential Compression Device Start: 06/02/21 12:40:00 EDT, Bilateral, Length: Knee High, While patient is in bed, Continuous Order (CJ AVITIA) Subjective Patient with no further chest pain no right leg heaviness or lack of coordination and no expressive aphasia any longer with speech. Patient will continue to complete stroke set and non-STEMI order set evaluation. Discussed with patient that we are waiting cardiac evaluation for non-STEMI and abnormal echocardiogram. Concern over aortic valve embolization for TIA continues to be a concern. Cardiology will have to help decide where the patient goes on Eliquis or warfarin once again post TAVR Vital Signs T: 36.9 ??C TMIN: 36.5 ??C TMAX: 37.1 ??C HR: 65(Monitored) RR: 16 BP: 109/84 SpO2: 98% Oxygen Settings (Last) Oxygen Therapy Mode: Room air (06/03/21 11:36:00) Intake & Output Totals Last 24 Hours (7a-7a) Input Total: 70 mL Output Total: 0 mL Balance: 70 mL Physical Exam Awake alert oriented x4 he has good memory and recall remembering examiner from 20 months ago and is in good spirits with good intact humor. He has no focal deficits cranial nerves appear to be intact and motor strength and coordination in his extremities appears to be intact. He has appropriate speech pattern thought processes and appears capable of consent HEENT normocephalic atraumatic PERRLA EOMI no conjunctivitis no scleral icterus oropharynx is clear no obvious tongue or buccal injury and no sign or symptom of falling Neck supple no JVD no thyromegaly Lungs clear to auscultation bilaterally Heart regular rate no obvious murmur but does have very quiet heart sounds Abdomen normal bowel sound soft nontender nondistended no organomegaly Extremities without clubbing cyanosis or edema distal pulses 2+ equal bilaterally Medications aspirin, 162 mg= 2 Tab, Oral, Daily atorvastatin, 20 mg= 1 Tab, Oral, Daily heparin injection 25,000 Units + NaCl 0.45% Premix Diluent 250 mL hydrALAZINE, 10 mg= 0.5 mL, IV Push, Q6H, PRN hydroCHLOROthiazide, 12.5 mg= 0.5 Tab, Oral, Daily lisinopril, 20 mg= 1 Tab, Oral, Daily Metoprolol Succinate ER, 25 mg= 1 Tab, Oral, Daily multivitamin, 1 Tab, Oral, Daily Normal Saline Flush, 10 mL, IV Push, Q12H Normal Saline Flush, 10 mL, IV Push, See Comment, PRN Diagnostic Results Radiology Results (Last 48 hours) [id number] -- 06/02/2021 12:02 CR Chest 2 Vws (06/02/2021 10:51) Result: TWO-VIEW CHEST 06/02/2021 10:04 AM HISTORY: Anterior chest pain.COMPARISON: August 04, 2020FINDINGS: The heart is proper size. The mediastinum is unremarkable. Diffuse interstitial changes are probably chronic. The lungs areotherwise clear. There is no pneumothorax. The osseous structures areunremarkable. Status post median sternotomy. A pacemaker overlies theleft chest.IMPRESSION: No acute cardiopulmonary process. Continued follow-up is recommended.Images reviewed, interpreted, and dictated by Dr. Mohini Terry.Transcribed by Whitney Keita (R).I have personally viewed, interpreted and dictated the examination. Ihave read and agree with the above final transcribed report. CT Head WO (06/02/2021 10:53) Result: CT SCAN OF THE HEAD WITHOUT CONTRASTINDICATION: Muscle weakness.TECHNIQUE: Multiple axial CT images were performed from the foramenmagnum to the vertex without contrast. Coronal reconstruction imageswere obtained from the axial data. This study was performed withtechniques to keep radiation doses as low as reasonably achievable(ALARA). Individualized dose reduction techniques using automatedexposure control or adjustment of mA and/or KV according to the patientsize were employed.COMPARISON: October 2019.FINDINGS: There is no mass effect or midline shift. The ventricles aresymmetric in size and configuration. 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 There is no hydrocephalus. There are noextra-axial fluid collections. There is no intraventricular orintraparenchymal hemorrhage. The posterior fossa has a normal CTappearance. There is complete opacification of the right maxillarysinus. No acute osseous abnormalities are present.IMPRESSION:1. No mass effect, midline shift, or hemorrhage.2. Right maxillary sinusitis. Images reviewed, interpreted, and dictated by Dr. Zina Evangelista.Transcribed by Whitney Stapleton(R).I have personally viewed, interpreted and dictated the examination. Ihave read and agree with the above final transcribed report. Lab Results Test Name Test Result Date/Time Sodium Level 138 mmol/L 06/03/2021 03:08 EDT Potassium Level 3.5 mmol/L 06/03/2021 03:08 EDT Chloride Level 105 mmol/L 06/03/2021 03:08 EDT Carbon Dioxide Level 26 mmol/L 06/03/2021 03:08 EDT Anion Gap 10 06/03/2021 03:08 EDT Glucose Level 111 mg/dL (High) 06/03/2021 03:08 EDT Blood Urea Nitrogen 22 mg/dL 06/03/2021 03:08 EDT Creatinine Level 1.10 mg/dL 06/03/2021 03:08 EDT eGFR >60 mL/min/1.73m2 06/03/2021 03:08 EDT eGFR NonAfrican >60 mL/min/1.73m2 06/03/2021 03:08 EDT Bun/Creatinine 20.0 06/03/2021 03:08 EDT Calcium Level 8.8 mg/dL 06/03/2021 03:08 EDT Protein Total 7.2 Gram/dL 06/03/2021 03:08 EDT Albumin Level 3.7 Gram/dL 06/03/2021 03:08 EDT Globulin 3.5 Gram/dL 06/03/2021 03:08 EDT A/G Ratio 1.1 06/03/2021 03:08 EDT Bilirubin Total 0.8 mg/dL 06/03/2021 03:08 EDT Alk Phos 70 Units/Liter 06/03/2021 03:08 EDT AST 29 Units/Liter 06/03/2021 03:08 EDT ALT 27 Units/Liter 06/03/2021 03:08 EDT Hgb A1C 6.4 % 06/03/2021 03:08 EDT eAVG Glucose 137 mg/dL 06/03/2021 03:08 EDT CK 87 Units/Liter 06/03/2021 10:43 EDT Troponin I Ultra 2.510 ng/mL (Critical) 06/03/2021 10:43 EDT Troponin I Ultra 2.100 ng/mL (Critical) 06/02/2021 18:51 EDT Troponin I Ultra <0.015 ng/mL 06/02/2021 15:07 EDT CK MB 3.20 ng/mL 06/03/2021 10:43 EDT MBI 3.7 06/03/2021 10:43 EDT WBC 6.7 K/uL 06/03/2021 03:08 EDT WBC 6.0 K/uL 06/02/2021 21:54 EDT RBC 4.97 Million/uL 06/03/2021 03:08 EDT RBC 4.99 Million/uL 06/02/2021 21:54 EDT Hgb 13.8 g/dL 06/03/2021 03:08 EDT Hgb 14.0 g/dL 06/02/2021 21:54 EDT Hct 42.2 % 06/03/2021 03:08 EDT Hct 42.6 % 06/02/2021 21:54 EDT MCV 84.9 fL 06/03/2021 03:08 EDT MCV 85.4 fL 06/02/2021 21:54 EDT MCH 27.8 pg 06/03/2021 03:08 EDT MCH 28.1 pg 06/02/2021 21:54 EDT MCHC 32.7 Gram/dL 06/03/2021 03:08 EDT MCHC 32.9 Gram/dL 06/02/2021 21:54 EDT Platelet Count 112 K/uL (Low) 06/03/2021 03:08 EDT Platelet Count 129 K/uL (Low) 06/02/2021 21:54 EDT MPV 12.4 fL 06/03/2021 03:08 EDT MPV 12.4 fL 06/02/2021 21:54 EDT RDW 15.4 % (High) 06/03/2021 03:08 EDT RDW 15.6 % (High) 06/02/2021 21:54 EDT Neut % 51.2 % 06/03/2021 03:08 EDT Neut % 53.9 % 06/02/2021 21:54 EDT Neut # 3.44 K/uL 06/03/2021 03:08 EDT Neut # 3.25 K/uL 06/02/2021 21:54 EDT Lymph % 35.0 % 06/03/2021 03:08 EDT Lymph % 32.6 % 06/02/2021 21:54 EDT Lymph # 2.35 x10(3)/uL 06/03/2021 03:08 EDT Lymph # 1.96 x10(3)/uL 06/02/2021 21:54 EDT Sabine % 9.8 % (High) 06/03/2021 03:08 EDT Sabine % 10.5 % (High) 06/02/2021 21:54 EDT Sabine # 0.66 K/uL 06/03/2021 03:08 EDT Sabine # 0.63 K/uL 06/02/2021 21:54 EDT Eos % 0.9 % 06/03/2021 03:08 EDT Eos % 1.0 % 06/02/2021 21:54 EDT Eos # 0.06 x10(3)/uL 06/03/2021 03:08 EDT Eos # 0.06 x10(3)/uL 06/02/2021 21:54 EDT Baso % 0.4 % 06/03/2021 03:08 EDT Baso % 0.3 % 06/02/2021 21:54 EDT Baso # 0.03 x10(3)/uL 06/03/2021 03:08 EDT Baso # 0.02 x10(3)/uL 06/02/2021 21:54 EDT Slide Review No 06/03/2021 03:08 EDT Slide Review No 06/02/2021 21:54 EDT IG# 0.18 x10(3)/uL (High) 06/03/2021 03:08 EDT IG# 0.10 x10(3)/uL (High) 06/02/2021 21:54 EDT IG% 2.70 % (High) 06/03/2021 03:08 EDT IG% 1.70 % (High) 06/02/2021 21:54 EDT PT 10.9 Second(s) 06/02/2021 21:54 EDT INR 1.0 06/02/2021 21:54 EDT PTT 26.5 Second(s) 06/02/2021 21:54 EDT PTT Heparin 54.0 Second(s) 06/03/2021 09:51 EDT PTT Heparin 79.3 Second(s) (Critical) 06/03/2021 03:08 EDT PTT Heparin 26.2 Second(s) (Low) 06/02/2021 21:54 EDT Cholesterol Tot 207 mg/dL (High) 06/03/2021 03:08 EDT Triglyceride 98 mg/dL 06/03/2021 03:08 EDT Cholesterol HDL 57.0 mg/dL 06/03/2021 03:08 EDT Cholesterol LDL Calculation 130.4 mg/dL (High) 06/03/2021 03:08 EDT Cholesterol/HDL Ratio 3.6 (High) 06/03/2021 03:08 EDT LDL/HDL Ratio 2.3 06/03/2021 03:08 EDT Cholesterol VLDL Calculation 19.6 mg/dL 06/03/2021 03:08 EDT [1] Admission H & P; CJ AVITIA MD-INT 06/02/2021 14:11 EDT documented in this encounter Plan of Treatment Not on file documented as of this encounter Visit Diagnoses Not on filedocumented in this encounter
--- OUTSIDE RECORDS SUMMARY | 2025-03-28 10:42 | XMS_ITS | Encounter Summary ---
Author Organization [employer] Address [address] [place] [id number] Care Team Providers Care Pipe Fitter Welding Name Role Phone Unavailable Primary Care Provider Unavailabl e Encounter Details Date Type Department Care Team (Late st Contact Info) Description 08/04/2020 Transcribed Document [facility] Family Medicine [address] [place] [address] ProviderPrasanth MD [facility] [place] [address] Social History Tobacco Use Types Packs/Day Years Used Date Smoking Tobacco: Never Assessed Sex and Gender Information Value Date Recorded Sex Assigned at Not on file Legal Sex Male 6:49 PM CDT Gender Identity Not on file Sexual Orientation Not on file documented as of this encounter Miscellaneous Notes * Cerner Conversion Note - Historical ProviderMD - 08/04/2020 2:00 PM CDT Event Note Entered On: 08/04/2020 17:01 EDT Performed On: 08/04/2020 14:00 EDT by WALTER POWELL RN Event Note Event Date/Time : 08/04/2020 14:00 EDT Event Location : Assigned room Description of Event : Continues to be pain free, eating lunch without problems. WALTER POWELL RN - 08/04/2020 17:01 EDT documented in this encounter Plan of Treatment Not on file documented as of this encounter Visit Diagnoses Not on filedocumented in this encounter
--- OUTSIDE RECORDS SUMMARY | 2025-03-28 10:42 | XMS_ITS | Encounter Summary ---
Author Organization [employer] Address [address] [place] [address] Care Team Providers Care Candy Decorator Name Role Phone Unavailable Primary Care Provider Unavailabl e Encounter Details Date Type Department Care Team (Late st Contact Info) Description 08/04/2020 Transcribed Document [facility] [place] [facility] [place] [address] ProviderPrasanth MD [address] [place] [id number] Social History Tobacco Use Types Packs/Day Years Used Date Smoking Tobacco: Never Assessed Sex and Gender Information Value Date Recorded Sex Assigned at Not on file Legal Sex Male 6:49 PM CDT Gender Identity Not on file Sexual Orientation Not on file documented as of this encounter Miscellaneous Notes * Cerner Conversion Note - Prasanth Sanchez MD - 08/04/2020 1:33 PM CDT Patient: SHIRA GARZA HORACIO Age: 85 Years Sex: Male : 1935 Chief Complaint chest pain, supratherapeutic INR Requesting: MD Flor Cardiology: MD Tracee History of Present Illness The patient is [...] was discharged home on aspirin and plavix. He was readmitted 10/2019 with a traumatic subdural hematoma s/p fall. He was found to have intermittent complete heart block with pauses for which he underwent [facility] biventricular permanent pacemaker implantation. Since the patient has had intermittent episodes of atypical chest pain. He was scheduled for stress echocardiogram but baseline echocardiogram showed significant change parameters regarding his aortic stenosis with estimated DEVORAH = 0.7 cm?? and aortic velocity = 5.3 m/s. Stress was canceled. 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 The patient was started on Coumadin at that time. The patient presented to [facility] on 08/03 with complaints of midsternal sharp chest pain, radiating in nature to bilateral arms and jaws. He had associated shortness of breath, worsened with exertion. He took a total of 4 nitroglycerin over 45 minutes without relief. CTA revealed gallstones, punctate calcifications throughout the pancreas, bilateral adrenal adenomas, nonobstructing right renal stones, no pulmonary emboli. The patient was transferred to [facility] for higher level of care and cardiac evaluation. Review of systems 14 point review of systems obtained, negative except mentioned above Physical Exam Vitals & Measurements T: 36.1 ??C HR: 64(Monitored) RR: 18 BP: 154/76 SpO2: 96% HT: 175.26 cm WT: 88.64 kg BMI: 28.9 General: [Alert and oriented, well nourished, no acute distress]. Neurologic: [Awake, alert, and oriented X3, CN II-XII intact]. Eye: [PERRL, EOMI, normal conjuctiva]. HENT: [Normocephalic, normal hearing, moist oral mucosa, no scleral icterus]. Neck: [Supple, non-tender, no carotid bruits, no JVD]. Lungs: [Clear to auscultation, non-labored respiration]. Heart: [Normal rate, regular rhythm, no murmur, edema]. Abdomen: [Soft, non-tender, non-distended, normal bowel sounds]. Musculoskeletal: [Normal range of motion and strength]. Skin: [Skin is warm, dry and pink, no rashes]. Psychiatric: [Cooperative, appropriate mood and affect]. Assessment/Plan NSTEMI in setting of CAD/ prior 5V CABG optimize medical management [facility] 09/2019 revealed patent grafts Thrombosed aortic valve, now with severe stenosis anticoagulated with Coumadin Intermittent complete heart block with pauses s/p [facility] BIV PPM Supratherapeutic INR hold Coumadin at this time- relatively new Hypertension Discussed case with Dr. Easley whom is very familiar with patient. Due to thrombosed aortic valve, no active symptoms, no significant EKG changes will continue with optimal medical management. Add long acting nitrate. Hold Coumadin at this time to allow to dissipate. Continue BB, AYAN. Continue ASA. Repeat echocardiogram pending. Trend cardiac markers. Thank you for allowing us to participate in this patient's care we will follow along. Please call with CV questions/concerns. Problem List/Past Medical History Ongoing At risk for sleep apnea At risk for sleep apnea Atrial flutter Benign neoplastic disease CAD (coronary artery disease) Chest pain H/O aortic valve replacement Hard of hearing Hyperlipidemia Hyperlipidemia Hypertension Hypertension Impaired vision in both eyes Right bundle branch block Shortness of breath Wears glasses Historical Aortic stenosis Renal calculus Subdural hematoma Syncope Procedure/Surgical History INSERT CARD RSYNC PACE PULS GEN IN CHEST SUBCU/FASCIA, OPEN (11/07/2019), INSERTION OF PACEMAKER LEAD INTO R VENTRICLE, PERC APPROACH (11/07/2019), ULTRASONOGRAPHY OF HEART WITH AORTA (11/05/2019), INTRODUCTION OF SERUM/TOX/VACCINE INTO MUSCLE, PERC APPROACH (11/04/2019), FLUOROSCOPY OF THORACIC AORTA (10/29/2019), REPLACEMENT OF AORTIC VALVE WITH ZOOPLASTIC, PERC APPROACH (10/29/2019), TAVR (10/29/2019), bilateral eyelid lift, Biventricular pacemaker implant -[facility], colonoscopy - times 4, coronary artery bypass graft, cyst removed - upper back, heart catheterization, right inguinal hernia repair, right wrist surgery - plate placed, vasectomy. Allergies Plavix amiodarone (Unknown) Medications Aspir 81, Oral, Daily aspirin, 81 mg, Daily aspirin, 81 mg= 1 Tab, Oral, Daily atorvastatin 20 mg oral tablet atorvastatin 20 mg oral tablet, 20 mg= 1 Tab, Oral, Tuesday hydroCHLOROthiazide, 12.5 mg= 0.5 Tab, Oral, Daily hydroCHLOROthiazide-lisinopril 12.5 mg-20 mg oral tablet, 1 Tab, Oral, Daily lisinopril, 20 mg= 1 Tab, Oral, Daily lisinopril, 20 mg, Oral, Daily metoprolol tartrate, 25 mg= 1 Tab, Oral, BID morphine, 2 mg= 1 mL, IV Push, Q2H, PRN multivitamin, 1 Tab, Oral, Daily Nitrostat, 0.4 mg= 1 Tab, SubLINgual, Q5Min, PRN Nitrostat 0.4 mg sublingual tablet, 0.4 mg= 1 Tab, SubLINgual, Q5Min, PRN Sodium Chloride 0.9% intravenous solution 1,000 mL, 1000 mL, IntraVENous warfarin 5 mg oral tablet, 5 mg= 1 Tab, Oral, Daily, 6 refills warfarin 5 mg oral tablet Family History htn Social History Alcohol Alcohol Use History No. Alcohol Use Frequency Rarely. Alcohol Use Comment has beer when traveling to other countries. Employment/School Employed Home/Environment Lives with Spouse. Living situation: Home/Independent. Substance Abuse Drug Use Hx: No. Use in Last 12 Months: No. Tobacco Former smoker, quit more than 30 days ago Smoking Status. Last Used: Quit 2007. Former smoker, quit more than 30 days ago Smoking Status. Never Smokeless Tobacco Status. Last Used: 2007. was occasional smoker . maybe 1 pack each week. Last Used: quit smoking 2007. Code Status / Living Will Resuscitation Status (Code Status) - Ordered -- Start: 08/04/20 12:59:00 EDT, Full Code, Continuous Order Labs Results AUG 04 12:20 \ 14.2 / 5.6 L 148 / 43.4 \ Cardiac Labs Cardiology Labs Cardiac Markers Troponin I Ultra: 3.42 ng/mL Critical (08/04/20 12:22:00) Diagnostics EKG NSR Echo pending Cardiac Cath 09/2019 noted patency of grafts Electronically signed by Carla Shelton Conversion [employer] Teacher Cerner at 01/26/2023 9:01 PM CDT documented in this encounter Plan of Treatment Not on file documented as of this encounter Visit Diagnoses Not on filedocumented in this encounter
--- OUTSIDE RECORDS SUMMARY | 2025-03-28 10:42 | XMS_ITS | Encounter Summary ---
Author Organization [employer] Address [address] [place] [id number] Care Team Providers Care Beater Boss Name Role Phone Unavailable Primary Care Provider Unavailabl e Encounter Details Date Type Department Care Team (Late st Contact Info) Description 11/06/2019 Transcribed Document [facility] [place] [address] [place] [address] ProviderPrasanth MD [address] [place] [address] Social History Tobacco Use Types Packs/Day Years Used Date Smoking Tobacco: Never Assessed Sex and Gender Information Value Date Recorded Sex Assigned at Not on file Legal Sex Male 6:49 PM CDT Gender Identity Not on file Sexual Orientation Not on file documented as of this encounter Miscellaneous Notes * Cerner Conversion Note - Prasanth ProviderMD - 11/06/2019 8:58 AM 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 intermittent complete heart block SUBJECTIVE: denies presyncope, dizziness, nausea, chest pain, palpitations Vitals Signs (last 24 hrs) Last Charted Minimum Maximum Temp 98.6 (NOV 06 04:00) 96.9 (NOV 05 16:00) 98.2 (NOV 05 20:00) Mon HR 60 (NOV 06 07:00) 34 (NOV 05 10:00) 74 (NOV 05 19:15) Resp Rate H 22 (NOV 06 07:00) L 13 (NOV 05 10:30) H 48 (NOV 05 19:00) SBP H 141 (NOV 06 07:00) 117 (NOV 05 10:15) H 178 (NOV 05 21:00) DBP 74 (NOV 06 07:00) L 56 (NOV 05 10:15) H 98 (NOV 05 19:15) MAP 97 (NOV 06 07:00) 80 (NOV 05 10:15) 127 (NOV 05 19:15) SpO2 96 (NOV 06 07:00) L 85 (NOV 05 19:15) 97 (NOV 06 04:30) Clinical Weight CLINICALWEIGHT: 93.1 kg (11/04/19 21:29:00) Routine Weight Calculation: 92 kg (11/06/19 02:20:00) Routine Weight Entry Format: Metric (11/06/19 02:20:00) Routine Weight Source: Bed scale (11/06/19 02:20:00) Routine Weight, Kilograms: 92 kg (11/06/19 02:20:00) Gary Body Weight: 70 kg (11/04/19 21:29:00) Intake & Output Totals Last 24 Hours (7a-7a) Intake (23 Events) Continuous Infusions (1801.75 mL) Oral Intake (1000 mL) Output (11 Events) Urine Voided (Volume) (2425 mL) Input Total: 2801.75 mL Output Total: 2425 mL Balance: 376.75 mL TELE: intermittent complete heart block with periods of pauses GTTS: none Blood Gases (Current Encounter/Past 24 Hours) No Blood Gas Results Found (Past 24 Hours) Labs (Last four charted values) WBC 6.4 [...] (NOV 04) Troponin H 0.299 (NOV 04) ECHO Impression: Normal sized left ventricle. Mild left ventricular hypertrophy. Visually estimated ejection fraction 55% +/- 5%. Abnormal systolic strain pattern. Increased left atrial pressure (Grade II diastolic dysfunction). Moderate (2+) mitral regurgitation. Status Post TAVR. Trace paravalvular regurgitation. No masses or thrombi are seen. EXAM: Alert & Oriented, No apparent distress. HEAD&NECK: No JVD, No carotid bruit CORONARY: RRR, S1/S2, No murmurs LUNGS: CTA/B, No rhonchi, No wheeze ABDOMEN: Soft, Non-tender, Positive Bowel sounds EXTREMITIES: No edema, No cyanosis, Pedal pulses palpable IMPRESSION/PLAN: Intermittent complete heart block with periods of pauses pt currently asymptomatic, will monitor will need ppm prior to discharge, as long as pt is asymptomatic would like to wait due to Plavix last dose on Tuesday longstanding history of bradycardia Aortic stenosis s/p TAVR 10/29/2019 CAD s/p 5V CABG [facility] 09/2019 revealed patent grafts continue nitrate, statin PAF s/p atrial flutter ablation SDH NS following ASA, Plavix on hold h/o Right BBB Case discussed at length with patient and Dr. Easley who the patient is a longstanding pt of... Due to Plavix administration and increased risk of bleeding would like to wait on PPM implantation Pt with longstanding history of bradycardia, currently asymptomatic For BIV PPM in am documented in this encounter Plan of Treatment Not on file documented as of this encounter Visit Diagnoses Not on filedocumented in this encounter
--- OUTSIDE RECORDS SUMMARY | 2025-03-28 10:42 | XMS_ITS | Encounter Summary ---
Author Organization [employer] Address [address] [place] [address] Care Team Providers Care Part Maker Name Role Phone Unavailable Primary Care Provider Unavailabl e Encounter Details Date Type Department Care Team (Late st Contact Info) Description 10/30/2019 Transcribed Document [facility] [place] Family Medicine [address] [place] [address] ProviderPrasanth MD [facility] [place] [address] Social History Tobacco Use Types Packs/Day Years Used Date Smoking Tobacco: Never Assessed Sex and Gender Information Value Date Recorded Sex Assigned at Not on file Legal Sex Male 6:49 PM CDT Gender Identity Not on file Sexual Orientation Not on file documented as of this encounter Miscellaneous Notes * Cerner Conversion Note - Prasanth Sanchez MD - 10/30/2019 12:20 PM CONTROLS OPERATOR MOLDED GOODS Patient Education Materials Follows: Groin Site Care Refer to this sheet [...] 12/18/2012 Document Reviewed: 10/29/2011 ExitCare? Patient Information ?2013 [employer]. documented in this encounter Plan of Treatment Not on file documented as of this encounter Visit Diagnoses Not on filedocumented in this encounter
--- OUTSIDE RECORDS SUMMARY | 2025-03-28 10:42 | XMS_ITS | Encounter Summary ---
Author Organization [employer] Address [address] [place] [address] Care Team Providers Care Bridge Maintainer Name Role Phone Unavailable Primary Care Provider Unavailabl e Encounter Details Date Type Department Care Team (Late st Contact Info) Description 11/14/2018 Transcribed Document [facility] [place] Family Medicine [address] [place] [address] ProviderPrasanth MD [facility] [place], [place] [address] Social History Tobacco Use Types Packs/Day Years Used Date Smoking Tobacco: Never Assessed Sex and Gender Information Value Date Recorded Sex Assigned at Not on file Legal Sex Male 6:49 PM CDT Gender Identity Not on file Sexual Orientation Not on file documented as of this encounter Miscellaneous Notes * Cerner Conversion Note - Historical ProviderMD - 11/14/2018 11:32 AM ESCAPEMENT MAKER Nursing Discharge Summary Entered On: 11/14/2018 11:33 EST Performed On: 11/14/2018 11:32 EST by RADHA TERRAZAS, dye automation operator Documentation Patient Disposition, General : Discharge Discharge To : Other: dc home per wheelchair IV Discontinued : Yes Personal Belongings With Patient : Yes RADHA TERRAZAS RN - 11/14/2018 11:32 EST Discharge, Comment : 1.Follow Dr Pelletier instructions on medications. 2. If site bleeds- lye flat, hold pressure at the site and call 911. 3. stroke- sudden shortness of air- call 911. 4. No driving for 24 hrs post procedure. RADHA TERRAZAS RN - 11/14/2018 12:32 EST Electronically signed by Nikita [facility] Conversion Program Specialist Cerner at 01/26/2023 9:08 PM CDT documented in this encounter Plan of Treatment Not on file documented as of this encounter Visit Diagnoses Not on filedocumented in this encounter
--- OUTSIDE RECORDS SUMMARY | 2025-03-28 10:42 | XMS_ITS | Encounter Summary ---
Author Organization [employer] Address [address] [place] [address] Care Team Providers Care Video Operator Name Role Phone Unavailable Primary Care Provider Unavailabl e Encounter Details Date Type Department Care Team (Late st Contact Info) Description 10/30/2019 Transcribed Document [facility] [place] Family Medicine [facility] [place] [address] ProviderPrasanth MD [address] [place] [address] [id number] Social History Tobacco Use Types Packs/Day Years Used Date Smoking Tobacco: Never Assessed Sex and Gender Information Value Date Recorded Sex Assigned at Not on file Legal Sex Male 6:49 PM CDT Gender Identity Not on file Sexual Orientation Not on file documented as of this encounter Miscellaneous Notes * Dev[employer]ner Conversion Note - Prasanth ProviderMD - 10/30/2019 3:11 PM BLOCK PAVER Final Discharge Planning Entered On: 10/30/2019 15:12 EST Performed On: 10/30/2019 15:11 EST by SABRINA ROSE RN-Care Management Final Discharge Planning Discharge Arrangements : Patient Post-Acute Information Patient Name: SHIRA GARZA HORACIO Gender: Male : 37 Age: 84 Years No Post-Acute Placement(s) Listed No Post-Acute Service(s) Listed No Curaspan Referral(s) Listed Transportation Needs : Family/Friend Is Patient High/Moderate Readmission Risk? : No Patient/Family Notified of Plan : Yes Is Patient Ready for Discharge? : Yes Physician Notified Patient is Ready for Discharge? : Yes Discharge To Care Management : Home/Residential/Jail or Self Care - SABRINA ROSE RN-Care Management - 10/30/2019 15:11 EST Electronically signed by Nikita [facility] Conversion Special Collections Librarian Cerner at 01/26/2023 8:58 PM CDT documented in this encounter Plan of Treatment Not on file documented as of this encounter Visit Diagnoses Not on filedocumented in this encounter
--- OUTSIDE RECORDS SUMMARY | 2025-03-28 10:42 | XMS_ITS | Encounter Summary ---
Author Organization [employer] Address [address] [place] [address] Care Team Providers Care Form Maker Plaster Name Role Phone Unavailable Primary Care Provider Unavailabl e Encounter Details Date Type Department Care Team (Late st Contact Info) Description 06/03/2021 Transcribed Document [facility] [place] Family Medicine [facility] [place] [address] ProviderPrasanth MD [address] [place] [id number] Social History Tobacco Use Types Packs/Day Years Used Date Smoking Tobacco: Never Assessed Sex and Gender Information Value Date Recorded Sex Assigned at Not on file Legal Sex Male 6:49 PM CDT Gender Identity Not on file Sexual Orientation Not on file documented as of this encounter Miscellaneous Notes * Cerner Conversion Note - Historical ProviderMD - 06/03/2021 11:03 AM CDT GRAPHIC COORDINATOR Attempt to Treat Entered On: 06/03/2021 11:03 EDT Performed On: 06/03/2021 11:03 EDT by JANES WHITTINGTON SLP Attempt to Treat Inability to Treat Comment : Further cognitive evaluation not warranted. Notification : JANES LAM SLP - 06/03/2021 11:03 EDT Electronically signed by Carla Shelton Conversion Apartment Community Manager Cergarcia at 01/26/2023 9:10 PM CDT documented in this encounter Plan of Treatment Not on file documented as of this encounter Visit Diagnoses Not on filedocumented in this encounter
--- OUTSIDE RECORDS SUMMARY | 2025-03-28 10:42 | XMS_ITS | Encounter Summary ---
Author Organization [employer] Address [address] [place] [address] Care Team Providers Care Trackwalker Name Role Phone Unavailable Primary Care Provider Unavailabl e Encounter Details Date Type Department Care Team (Late st Contact Info) Description 11/06/2019 Transcribed Document [facility] Family Medicine [facility] [place] [address] ProviderPrasanth MD [facility] [place], [place] [id number] Social History Tobacco Use Types Packs/Day Years Used Date Smoking Tobacco: Never Assessed Sex and Gender Information Value Date Recorded Sex Assigned at Not on file Legal Sex Male 6:49 PM CDT Gender Identity Not on file Sexual Orientation Not on file documented as of this encounter Miscellaneous Notes * Cerner Conversion Note - Historical ProviderMD - 11/06/2019 2:29 PM EVAPORATOR OPERATOR Readmission Questionnaire Entered On: 11/06/2019 14:31 EST Performed On: 11/06/2019 14:29 EST by BINH SIDDIQI RN-Clinical Reviewer Readmission Questionnaire Information Obtained From : Patient Date Of Last Or Previous Hospitalization : to 10-30-19 Patient Status at Discharge, Previous Admission : Inpatient Did Patient Leave AMA Pre Admission : No Date of Readmission : 11-04-2019 Readmission : Unplanned Readmission Reason: : Patient/caregiver decided on their own to come to ED ED Visit Between Hospitalization : Yes DC Destination, Previous Admission : No qualifying data available. If DC Home/Self Previous Admission Patient Lives : With family including spouse Was Follow Up Visit Scheduled Prior to DC : Yes Did Patient Go To Follow Up Visit : Yes If HH Previous Admission was Patient Seen by HH : N/A Were Patient's Meds Filled Prior to DC : Yes Did Patient Have Own Medications Filled : Yes Did Patient Take Medications as Prescribed : Yes Patient Try to See MD Before Return to Hospital : No PT Received Nursing DC Information on Previous Adm : Yes Teachback Documented on Previous Admission : Yes Did Patient Understand DC Instructions : Yes Understand What You Need To Do To Care For Self : Yes Did You Have Any Other Questions Or Concerns : No Patient Perception on Why Readmitted : near passing out. falls Could Hospital Have Prevented Readmission : No Readmission Related to Previous Admission : No Was DC Phone Call Received : No Per Readm Questionnaire Was Readm Preventable : No Readmission Comments : ED admit. 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 near syncope with fall. 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 BINH SIDDIIQ RN-Clinical Reviewer - 11/06/2019 14:29 EST Electronically signed by Nikita [facility] Conversion Looper Operator Cerner at 01/26/2023 8:55 PM CDT documented in this encounter Plan of Treatment Not on file documented as of this encounter Visit Diagnoses Not on filedocumented in this encounter
--- OUTSIDE RECORDS SUMMARY | 2025-03-28 10:42 | XMS_ITS | Encounter Summary ---
Author Organization [employer] Address [address] [place] [address] Care Team Providers Care Supervisor Pigment Making Name Role Phone Unavailable Primary Care Provider Unavailabl e Encounter Details Date Type Department Care Team (Late st Contact Info) Description 10/29/2019 Transcribed Document [facility] [place] [address] [place] [address] ProviderPrasanth MD [facility] [place], [place] 218021 Social History Tobacco Use Types Packs/Day Years Used Date Smoking Tobacco: Never Assessed Sex and Gender Information Value Date Recorded Sex Assigned at Not on file Legal Sex Male 6:49 PM CDT Gender Identity Not on file Sexual Orientation Not on file documented as of this encounter Miscellaneous Notes * Cerner Conversion Note - Historical ProviderMD - 10/29/2019 9:12 AM PROJECTION TECHNICIAN Education-(VTE) / (DVT) Entered On: 10/30/2019 4:52 EST Performed On: 10/29/2019 9:12 EST by Rimma Blackmon RN Teaching/Learning Assessment Barriers To Learning : None evident Individuals Taught : Patient, Family member Learning Style Preferences Patient : None Rimma Blackmon RN - 10/30/2019 4:52 EST documented in this encounter Plan of Treatment Not on file documented as of this encounter Visit Diagnoses Not on filedocumented in this encounter
--- OUTSIDE RECORDS SUMMARY | 2025-03-28 10:42 | XMS_ITS | Encounter Summary ---
Author Organization [employer] Address [address] [place] [address] Care Team Providers Care Jacquard Plate Maker Name Role Phone Unavailable Primary Care Provider Unavailabl e Encounter Details Date Type Department Care Team (Late st Contact Info) Description 11/06/2019 Transcribed Document [facility] [place] Family Medicine [address] [place] [address] ProviderPrasanth MD [facility] [place], [place] [phone] Social History Tobacco Use Types Packs/Day Years Used Date Smoking Tobacco: Never Assessed Sex and Gender Information Value Date Recorded Sex Assigned at Not on file Legal Sex Male 6:49 PM CDT Gender Identity Not on file Sexual Orientation Not on file documented as of this encounter Miscellaneous Notes * Cerner Conversion Note - Historical ProviderMD - 11/06/2019 5:00 PM FRENCH FOLDING MACHINE OPERATOR Chart Check - Review Order Profile Entered On: 11/06/2019 17:05 EST Performed On: 11/06/2019 17:00 EST by Lavonne Funez RN Chart Check Powerplans Initiated/Discontinued as Appropriate : Yes All Active Orders Reviewed : Yes Lavonne Funez RN - 11/06/2019 17:05 EST Electronically signed by Nikita [facility] Conversion Shallot Cleaner Richard at 01/26/2023 8:54 PM CDT documented in this encounter Plan of Treatment Not on file documented as of this encounter Visit Diagnoses Not on filedocumented in this encounter
--- OUTSIDE RECORDS SUMMARY | 2025-03-28 10:42 | XMS_ITS | Encounter Summary ---
Author Organization [employer] Address [address] [place] [address] Care Team Providers Care Assistant Front End Manager Name Role Phone Unavailable Primary Care Provider Unavailabl e Encounter Details Date Type Department Care Team (Late st Contact Info) Description 09/11/2019 Transcribed Document [facility] [place] [address] [place] [address] ProviderPrasanth MD [facility] [place], [place] [address] Social History Tobacco Use Types Packs/Day Years Used Date Smoking Tobacco: Never Assessed Sex and Gender Information Value Date Recorded Sex Assigned at Not on file Legal Sex Male 6:49 PM CDT Gender Identity Not on file Sexual Orientation Not on file documented as of this encounter Miscellaneous Notes * Cerner Conversion Note - Prasanth ProviderMD - 09/11/2019 11:55 AM NEAR EASTERN ARCHAEOLOGY LECTURER DATE OF CONSULTATION: 09/11/2019 REASON FOR CONSULTATION: Evaluation of aortic stenosis. HISTORY OF PRESENT ILLNESS: Mr. Cormier is an 84-year-old man with history of coronary artery bypass grafting x5 by [place] in 2007. He also has undergone previous atrial flutter ablation. He has been followed with asymptomatic aortic stenosis and for the past month has noted increasing shortness of breath. He also had some substernal chest pressure with exertion. Echocardiogram revealed a more severe aortic stenosis with an aortic valve area of less than 1 sq cm. Cardiac catheterization today shows all of his previous bypass grafts are patent. PAST HISTORY: 1. Atrial flutter treated with ablation. 2. Coronary artery bypass grafting x5 in 2007. 3. Hypertension. 4. Hyperlipidemia. SOCIAL HISTORY: He does not smoke or abuse alcohol. 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 FAMILY HISTORY: His mother had history of cancer. REVIEW OF SYSTEMS: CARDIAC: See history of present illness. No congestive heart failure, syncope, edema, or palpitations. RESPIRATORY: No cough, wheeze, or hemoptysis. GI: No abdominal pain or GI bleeding. : No hematuria or dysuria. NEUROLOGIC: No seizures or stroke. Remainder of a complete review of systems is negative. PHYSICAL EXAMINATION: GENERAL: The patient is a healthy-appearing male, in no distress. VITAL SIGNS: Blood pressure 158/77, pulse 44 and regular, respiratory rate 24 per minute, temperature 97.3. SKIN: No rashes. HEENT: Within normal limits. Pupils are equal and reactive. NECK: No JVD, bruits, or lymphadenopathy. LUNGS: Clear with normal respiratory effort. HEART: Normal S1, S2 with a 2/6 systolic murmur at the left sternal border. ABDOMEN: Nontender without masses. Bowel sounds are present. EXTREMITIES: No cyanosis or edema. NEUROLOGIC: No focal deficits. IMAGING STUDIES: His cardiac catheterization films were reviewed. IMPRESSION: Mr. Cormier has severe aortic stenosis with history of previous coronary artery bypass grafting and all of his previous grafts are patent. He has good left ventricular function. RECOMMENDATION: I discussed the options of redo sternotomy with aortic valve replacement versus TAVR. I recommended that he consider TAVR in light of his age and previous cardiac surgery. He agreed with this. I will discuss with Dr. Easley, and he will be referred for consideration of TAVR. If by chance he is not a candidate, then I would be willing to proceed with redo sternotomy for aortic valve replacement. This was all discussed with Mr. Cormier and his and they understand. /[id number] Flaco Kyle IV, MD RDF/AQ / RDF / MODL /[id number] CC: Jason Easley MD Electronically signed by [facility], [facility] Conversion Pattern Molder Richard at 01/26/2023 9:01 PM CDT documented in this encounter Plan of Treatment Not on file documented as of this encounter Visit Diagnoses Not on filedocumented in this encounter
--- OUTSIDE RECORDS SUMMARY | 2025-03-28 10:42 | XMS_ITS | Encounter Summary ---
Author Organization [employer] Address [address] [place] [address] Care Team Providers Care Box Closing Machine Operator Name Role Phone Unavailable Primary Care Provider Unavailabl e Encounter Details Date Type Department Care Team (Late st Contact Info) Description 06/02/2021 Transcribed Document [facility] [place] [facility] [place] [address] ProviderPrasanth MD [address] [place] [address] Social History Tobacco Use Types Packs/Day Years Used Date Smoking Tobacco: Never Assessed Sex and Gender Information Value Date Recorded Sex Assigned at Not on file Legal Sex Male 6:49 PM CDT Gender Identity Not on file Sexual Orientation Not on file documented as of this encounter Miscellaneous Notes * Cerner Conversion Note - Prasanth ProviderMD - 06/02/2021 12:40 PM CDT Education-Stroke (By Discharge) Entered On: 06/02/2021 15:51 EDT Performed On: 06/02/2021 12:40 EDT by Chang Medrano Shaper And Presser-Student Nurse Teaching/Learning Assessment Barriers To Learning : None evident Individuals Taught : Patient Readiness to Learn : Cooperative Readiness to Learn : Explanation, Teach back method Learning Style Preferences Patient : Verbal explanation Learning Style Preferences Family : Verbal explanation Chang Medrano, Shaper And Presser-Student Nurse - 06/02/2021 15:51 EDT Education Topics: Stroke (By Discharge) Stroke Education Handouts Given *Q : Yes Chang Medrano Shaper And Presser-Student Nurse - 06/02/2021 15:51 EDT Stroke Education Materials Given-Grid Activation of EMS *Q : Verbalizes understanding Follow-up Care After Discharge *Q : Verbalizes understanding Medications prescribed at DC *Q : Verbalizes understanding Risk Factors for Stroke *Q : Verbalizes understanding Warning S&S of Stroke *Q : Verbalizes understanding Marcela, Christianity B, Shaper And Presser-Student Nurse - 06/02/2021 15:51 EDT Individualized Stroke Risk Factors *Q : Coronary artery disease, Hypertension/High blood pressure Chang Medrano, Shaper And Presser-Student Nurse - 06/02/2021 15:51 EDT Electronically signed by Nikita [facility] Conversion Tint Layer Cerner at 01/26/2023 9:10 PM CDT documented in this encounter Plan of Treatment Not on file documented as of this encounter Visit Diagnoses Not on filedocumented in this encounter
--- OUTSIDE RECORDS SUMMARY | 2025-03-28 10:42 | XMS_ITS | Encounter Summary ---
Author Organization [employer] Address [address] [place] [address] Care Team Providers Care Denitrator Name Role Phone Unavailable Primary Care Provider Unavailabl e Encounter Details Date Type Department Care Team (Late st Contact Info) Description 06/03/2021 Transcribed Document [facility] [place] Family Medicine [facility] [place] [address] ProviderPrasanth MD [address] [place] [address] Social History Tobacco Use Types Packs/Day Years Used Date Smoking Tobacco: Never Assessed Sex and Gender Information Value Date Recorded Sex Assigned at Not on file Legal Sex Male 6:49 PM CDT Gender Identity Not on file Sexual Orientation Not on file documented as of this encounter Miscellaneous Notes * Cerner Conversion Note - Prasanth ProviderMD - 06/03/2021 2:06 PM CDT Patient: SHIRA GARZA HORACIO Age: 85 years Sex: Male : 1935 Associated Diagnoses: None Author: BINH NORIEGA, [facility] CARDIOLOGY PROGRESS NOTE: DIAGNOSIS: 1. Elevated troponin 2. TIA symptoms SUBJECTIVE: No complaints of CP, SOA. Vitals Signs (last 24 hrs) Last Charted Minimum Maximum Temp 98.4 (JUN 03 10:00) 97.8 (JUN 03 00:31) 98.8 (JUN 03 05:36) Apical HR 71 (JUN 03 08:39) L 57 (JUN 02 17:30) 71 (JUN 03 08:39) Mon HR 65 (JUN 03 10:00) 52 (JUN 02 21:22) 65 (JUN 03 10:00) Resp Rate 16 (JUN 03 10:00) 16 (JUN 02 21:15) 20 (JUN 02 17:00) SBP 109 (JUN 03 10:00) 109 (JUN 03 10:00) H 159 (JUN 03 05:36) DBP 84 (JUN 03 10:00) 66 (JUN 03 08:39) H 105 (JUN 03 05:36) MAP 91 (JUN 03 10:00) 91 (JUN 03 10:00) 127 (JUN 03 05:36) SpO2 98 (JUN 03 11:36) 95 (JUN 02 17:30) 98 (JUN 03 10:00) TELE: NSR GTTS: None Blood Gases (Current Encounter/Past 24 Hours) No Blood Gas Results Found (Past 24 Hours) Labs (Last four charted values) WBC 6.7 (JUN 03) 6.0 (JUN 02) 6.1 (JUN 02) HB 13.8 (JUN 03) 14.0 (JUN 02) 14.4 (JUN 02) HCT 42.2 (JUN 03) 42.6 (JUN 02) 43.4 (JUN 02) Plt L 112 (JUN 03) L 129 (JUN 02) L 123 (JUN 02) Na 138 (JUN 03) 138 (JUN 02) K 3.5 (JUN 03) 3.7 (JUN 02) Cl 105 (JUN 03) 109 (JUN 02) CO2 26 (JUN 03) 24 (JUN 02) BUN 22 (JUN 03) H 28 (JUN 02) Cr 1.10 (JUN 03) 1.10 (JUN 02) Glu R H 111 (JUN 03) H 127 (JUN 02) Ca 8.8 (JUN 03) 9.5 (JUN 02) PT 10.9 (JUN 02) 10.8 (JUN 02) INR 1.0 (JUN 02) 1.0 (JUN 02) PTT 26.5 (JUN 02) 26.6 (JUN 02) AST 29 (JUN 03) ALT 27 (JUN 03) ALK P 70 (JUN 03) T Bili 0.8 (JUN 03) PTN 7.2 (JUN 03) ALB 3.7 (JUN 03) Troponin C 2.510 (JUN 03) C 2.100 (JUN 02) <0.015 (JUN 02) C 1.220 (JUN 02) EXAM: Alert & Orientated, No apparent distress. CORONARY: RRR, S1/S2, No murmurs LUNGS: CTA/B, No rhonchi, No wheeze EXTREMITIES: No edema, No cyanosis, Assessment/Plan 1. Elevated troponin - No marked uptrend - No EKG changes - He is currently asymptomatic. No CP since admit. No SOA - Long complicated cardiac history - Echo relatively unchanged when compared to historical echo. - No plans for C at this time, given recent TIA symptoms - Continue medical management for now - ASA/Statin/BB - Outpatient follow up with Dr. Domingo will be arranged to discuss next steps, patient agreeable with plan. 2. CVA/TIA-like symptoms - Right LE weakness, confusion - Outside window for TPA - Head CT unremarkable for acute CVA. Symptoms felt to be probable TIA - No further symptoms on admit. 3. CAD s/p 5 vessel CABG in 2007 (eq BYRD 2nd diagonal & LAD, SVG to PDA branch of the LCx, seq SVG to D1 & OM2) - Elevated troponin, concern for NSTEMI. Also with TIA symptoms which can also elevate troponin - He has no cardiac symptoms/complaints. Now notes he never had CP prior to arrival. 4. Aortic valve stenosis - s/p TAVR - No mass/thrombi noted per TTE - Consider VITOR with recurrent symptoms 5. SSS - s/p [place] Biventricular PPM - Device in MRI compatible. 6. RBBB/LAFB - Chronic 7. Hx of aflutter ablation - CHADs-VASc 6 (HTN, age, TIA/CVA/thrombus) - Anticoagulation recommended, Eliquis best choice d/t Hx of SDH - Lunar infarct noted on head CT, now with probable TIA 8. Hx of traumatic SDH - Noted Discussed plan with Dr. Soliman, who is in agreement Patient in agreement with this plan Signing off Will be available to reconsult if needed Appointment has been made with Dr. Domingo for Friday 06/08. Electronically signed by Nikita, [facility] Conversion Thread Tool Grinder Set Up Operator Cerner at 01/26/2023 8:53 PM CDT documented in this encounter Plan of Treatment Not on file documented as of this encounter Visit Diagnoses Not on filedocumented in this encounter
--- OUTSIDE RECORDS SUMMARY | 2025-03-28 10:42 | XMS_ITS | Encounter Summary ---
Author Organization [employer] Address [address] [place] [address] Care Team Providers Care Log Getter Name Role Phone Unavailable Primary Care Provider Unavailabl e Encounter Details Date Type Department Care Team (Late st Contact Info) Description 11/04/2019 Transcribed Document [facility] Neurology - [address] [facility] [address] [place] [address] Lesly Chiang Jr., MD [address] [place], [place] [id number] Social History Tobacco Use Types Packs/Day Years Used Date Smoking Tobacco: Never Assessed Sex and Gender Information Value Date Recorded Sex Assigned at Not on file Legal Sex Male 6:49 PM CDT Gender Identity Not on file Sexual Orientation Not on file documented as of this encounter Miscellaneous Notes * Cerner Conversion Note - Lesly Chiang Jr., MD - 11/04/2019 11:09 PM EST Patient: SHIRA GARZA HORACIO Age: 84 years Sex: Male : 1935 Associated Diagnoses: None Author: LESLY CHIANG MD-SNU fell this am has a small acute rt temporal subdural hematoma neuro intact dr craig state shas not takes eliquis for a week on plavix, received asa in ed sbp 180-190's here a/p: icu admit keep sbp < 150 on cardene unless strong contraindication from cards platelets unless strong contraindication from cards repeat ct in am dw dr lópez in ed and dr craig documented in this encounter Plan of Treatment Not on file documented as of this encounter Visit Diagnoses Not on filedocumented in this encounter
--- OUTSIDE RECORDS SUMMARY | 2025-03-28 10:42 | XMS_ITS | Encounter Summary ---
Author Organization [employer] Address [address] [place] [id number] Care Team Providers Care Director Of Product Management Name Role Phone Unavailable Primary Care Provider Unavailabl e Encounter Details Date Type Department Care Team (Late st Contact Info) Description 10/29/2019 Transcribed Document [facility] Family Medicine [facility] [place] [address] ProviderPrasanth MD [address] [place] [id number] Social History Tobacco Use Types Packs/Day Years Used Date Smoking Tobacco: Never Assessed Sex and Gender Information Value Date Recorded Sex Assigned at Not on file Legal Sex Male 6:49 PM CDT Gender Identity Not on file Sexual Orientation Not on file documented as of this encounter Miscellaneous Notes * Cerner Conversion Note - Prasanth ProviderMD - 10/29/2019 8:11 AM GAME PRESERVE MANAGER [facility] Main OR IntraOp Summary Primary Physician: MARK HAIRSTON MD-CAT Finalized Date/Time: 10/31/19 12:09:24 Pt. Name: ALEXANDREFei SHIRA HORACIO /Sex: 1935 Male Med Rec #: [id number] Physician: MARK HAIRSTON MD-CAT Financial #: [id number] Pt. Type: I Room/Bed: [facility]/1 Admit/Disch: 10/29/19 07:03:00 - 10/30/19 15:14:00 Institution: [facility] IntraOp Case Attendance Entry 1 Entry 2 Entry 3 Case Attendee MARK HAIRSTON FALLUJI, NEZAR M, MD-CAR SCHAEFFER, MICHAEL W, MD-CAT MD-CAR Role Performed Surgeon/Proceduralist, Surgeon/Proceduralist, Surgeon/Proceduralist, First Second Third Time In 10/29/19 07:16:00 10/29/19 07:16:00 10/29/19 07:16:00 Time Out 10/29/19 09:42:00 10/29/19 09:42:00 10/29/19 09:42:00 Procedure Aortic Valve Aortic Valve Aortic Valve Replacement Transfemoral Replacement Transfemoral Replacement Transfemoral Other Attendee Superficial Wound Closed By: Last Modified By: Solange Sutton KYOne Grimes, Jennifer, [facility] Grimes, Jennifer, [facility] Pref Card Builder Pref Card Builder Pref Card Builder 10/29/19 09:43:00 10/29/19 09:43:00 10/29/19 09:43:00 Entry 4 Entry 5 Entry 6 Case Attendee SHRUTHI GARRISON CHALKLEY, JUDSON E, Sherlock, Kristi, -CAR -ANS Angiography Tech Role Performed Surgeon/Proceduralist, Anesthesiologist Flosser Third Time In 10/29/19 07:16:00 10/29/19 07:16:00 10/29/19 07:16:00 Time Out 10/29/19 09:42:00 10/29/19 09:42:00 10/29/19 09:42:00 Procedure Aortic Valve Aortic Valve Aortic Valve Replacement Transfemoral Replacement Transfemoral Replacement Transfemoral Other Attendee Superficial Wound Closed By: Last Modified By: Solange Sutton KYOne Grimes, Jennifer, [facility] Grimes, Jennifer, [facility] Pref Card Builder Pref Card Builder Pref Card Builder 10/29/19 09:43:00 10/29/19 09:43:00 10/29/19 09:43:00 Entry 7 Entry 8 Entry 9 Case Attendee NORA BOWLING SKIDMORE, ROY Grimes, Jennifer, [facility] Cardiovascular RT Pref Card Builder Role Performed Flosser Scrub, Third Customer Service Engineer, First Time In 10/29/19 07:16:00 10/29/19 07:16:00 10/29/19 07:16:00 Time Out 10/29/19 09:42:00 10/29/19 09:42:00 10/29/19 09:42:00 Procedure Aortic Valve Aortic Valve Aortic Valve Replacement Transfemoral Replacement Transfemoral Replacement Transfemoral Other Attendee Superficial Wound Closed By: Last Modified By: Solange Sutton KYOne Grimes, Jennifer, [facility] Grimes, Jennifer, [facility] Pref Card Builder Pref Card Builder Pref Card Builder 10/29/19 09:43:00 10/29/19 09:43:00 10/29/19 09:43:00 Entry 10 Entry 11 Case Attendee JOAQUÍN ZEE, OTHER, ATTENDEE Assessment Consultant Role Performed Assessment Consultant Vendor Time In 10/29/19 07:16:00 10/29/19 07:16:00 Time Out 10/29/19 09:42:00 10/29/19 09:42:00 Procedure Aortic Valve Aortic Valve Replacement Transfemoral Replacement Transfemoral Other Attendee HOLAMARCELLO MANCIA Superficial Wound Closed By: Last Modified By: Solange Sutton KYOne Grimes, Jennifer, [facility] Pref Card Builder Pref Card Builder 10/29/19 09:43:00 10/29/19 09:43:00 [facility] IntraOp Case Attendance Audit 10/29/19 09:43:00 Warehouse Shipping Clerk: MAY Modifier: MAY 1 <+> Time Out 1 <*> Procedure Aortic Valve Replacement Transfemoral 2 <+> Time Out 2 <*> Procedure Aortic Valve Replacement Transfemoral 3 <+> Time Out 3 <*> Procedure Aortic Valve Replacement Transfemoral 4 <+> Time Out 4 <*> Procedure Aortic Valve Replacement Transfemoral 5 <+> Time Out 5 <*> Procedure Aortic Valve Replacement Transfemoral 6 <+> Time Out 6 <*> Procedure Aortic Valve Replacement Transfemoral 7 <+> Time Out 7 <*> Procedure Aortic Valve Replacement Transfemoral 8 <+> Time Out 8 <*> Procedure Aortic Valve Replacement Transfemoral 9 <+> Time Out 9 <*> Procedure Aortic Valve Replacement Transfemoral 10 <+> Time Out 10 <*> Procedure Aortic Valve Replacement Transfemoral 11 <+> Time Out 11 <*> Procedure Aortic Valve Replacement Transfemoral 10/29/19 08:06:54 Warehouse Shipping Clerk: MAY Modifier: MAY <+> 1 Procedure 2 <*> Procedure Aortic Valve Replacement Transfemoral <+> 3 Procedure 4 <+> Time In 4 <*> Procedure Aortic Valve Replacement Transfemoral 5 <+> Time In 5 <*> Procedure Aortic Valve Replacement Transfemoral 6 <+> Time In 6 <*> Procedure Aortic Valve Replacement Transfemoral 7 <+> Time In 7 <*> Procedure Aortic Valve Replacement Transfemoral 8 <+> Time In 8 <*> Procedure Aortic Valve Replacement Transfemoral 9 <+> Time In 9 <*> Procedure Aortic Valve Replacement Transfemoral 10 <+> Time In 10 <*> Procedure Aortic Valve Replacement Transfemoral 11 <+> Time In 11 <*> Procedure Aortic Valve Replacement Transfemoral [facility] IntraOp Case Times Entry 1 Patient In Room Time 10/29/19 07:16:00 Out Room Time 10/29/19 09:42:00 Anesthesia Start Time 10/29/19 07:16:00 Stop Time 10/29/19 09:42:00 Surgery / Procedure Times Start Time 10/29/19 08:11:00 Stop Time 10/29/19 09:17:00 Last Modified By: Solange Sutton [facility]One Pref Card Builder 10/29/19 09:42:57 [facility] IntraOp Case Times Audit 10/29/19 09:42:57 Warehouse Shipping Clerk: GRIMESJE Modifier: GRIMESJE <+> 1 Out Room Time <+> 1 Stop Time 10/29/19 09:23:10 Warehouse Shipping Clerk: GRIMESJE Modifier: GRIMESJE <+> 1 Stop Time 10/29/19 08:11:22 Warehouse Shipping Clerk: GRIMESJE Modifier: GRIMESJE <+> 1 Start Time [facility] IntraOp Communication Entry 1 Entry 2 Entry 3 Communication To Family/Significant other Other Family/Significant other Comment START CTVU - START CLOSING Communication By Solange Sutton KYOne Grimes, Jennifer, [facility] Grimes, Jennifer, [facility] Pref Card Builder Pref Card Builder Pref Card Builder Date and Time 10/29/19 08:11:00 10/29/19 08:11:00 10/29/19 08:59:00 Last Modified By: Solange Sutton KYOne Grimes, Jennifer, KYOne Grimes, Jennifer, KYOne Pref Card Builder Pref Card Builder Pref Card Builder 10/29/19 08:16:14 10/29/19 08:16:14 10/29/19 08:59:19 Entry 4 Communication To Other Comment CTVU - START Communication By Solange Sutton KYOne Pref Card Buildvipul Date and Time 10/29/19 08:58:00 Last Modified By: Solange Sutton [facility]One Pref Card Builder 10/29/19 08:59:19 [facility] IntraOp Communication Audit 10/29/19 08:59:19 Warehouse Shipping Clerk: [email or web address] Modifier: YADIRAAnneliseEVA <+> 3 Date and Time <+> 4 Date and Time [facility] IntraOp Departure from OR Entry 1 Integumentary Assessment Integumentary WDL Assessment WDL Transfer/Handoff Transfer to PACU Phase I Handoff Method Bedside/Face to face Post-op Transport Bed (including Via specialty) Patient Transport DOM DE LA TORRE, Accompanied by DILLAN, JOAQUÍN ZEE, Assessment Consultant, Solange Sutton [facility]One Pref Card Builder Transfer/Handoff ICU BED Comments Last Modified By: Solange Sutton [facility]One Pref Card Buildvipul 10/29/19 08:05:30 [facility] IntraOp Dressing and Packing Entry 1 Type Dressing Location OPERATIVE SITE Wound Dressing Item Skin Closure Glue, Occlusive dressing Last Modified By: Solange Sutton KYOne Pref Card Buildvipul 10/29/19 08:05:33 [facility] IntraOp Fire Risk Assessment Entry 1 Fire Info Surgical Site or 0- No Incision Above the Xyphoid Open O2 Source 1- Yes (Mask or Cannula) Available Ignition 0- No (ESU, Laser, Light Source) Fire Risk 1 Assessment Score Fire Score Fire Risk Yes Assessment Complete Fire Risk Solange Sutton KYOne Assessment Verified Pref Card Builder By Fire Risk 10/29/19 07:16:00 Assessment Verified Date/Time Fire Risk Standard Fire Yes Safety Precautions Followed Last Modified By: Solange Sutton [facility]One Pref Card Buildvipul 10/29/19 08:05:40 [facility] IntraOp General Case Regulatory Auditor 1 Case Information OR OR 20 [facility] Case Level 2 Room Verified Yes Wound Class I - Clean Specialty SN Cardio Thoracic Anesthesia Type MAC ASA Class 4 Diagnosis Preop Diagnosis AORTIC VALVE DISEASE Postop Same As Preop Yes Postop Diagnosis AORTIC VALVE DISEASE Last Modified By: Solange Sutton KYOne Pref Card Builder 10/29/19 08:05:54 [facility] IntraOp Implant Log Entry 1 Entry 2 Entry 3 Type Implant (Synthetic) Implant (Synthetic) Tissue Implant (Biologic) Implant Log Implant Type Other Other Tissue Implant Type Heart valve Implant CLOSURE SYS PERCLOSE DEVICE MYNX WATER TAXI FERRY OPERATOR 6F/ 7F KT NAVID 3 W/COMM DEL Identification PROGL [id number] Description Implant Quantity 3 1 1 Implant Site RIGHT GROIN LEFT GROIN AORTIC VALVE Implant Identification Model Number Implant [id number] Identification Serial Number Implant [id number] Identification Lot Number Implant Dixon Lab:Vasc Dev Access Closure Mancia Lifesci Identification Control Tower Radio Operator Name: Implant [id number] Identification Catalog Number Implant Size Implant Has an Yes Yes Yes Expiration Date Implant Expiration 07/09/21 09/08/21 01/08/21 Date Wasted Radioactive Material Time Implanted Tissue Implant Continue for Tissue Implant Documentation Tissue Identification Number Graft Prep Per Yes Control Tower Radio Operator Instructions: Tissue Preparation N/A Method: Reconstitution Solution: Reconstitution Solution Lot Number Reconstitution Solution Expiration Date: Thawing Solution Thawing Solution Lot Number Thawing Solution Expiration Date Preparation NACL AND HEPARIN/SALINE Materials, Other Preparation [id number] Materials, Other Lot Number Preparation 05/10/20 Materials, Other Expiration Date Tissue OTHER, ATTENDEE Prepared/Processed By Control Tower Radio Operator Yes Paperwork Completed Implant Type Comment Last Modified By: Solange Sutton KYOne Grimes, Jennifer, KYOne Grimes, Jennifer, KYOne Pref Card Builder Pref Card Builder Pref Card Builder 10/29/19 08:21:05 10/29/19 08:21:05 10/29/19 13:19:53 [facility] IntraOp Implant Log Audit 10/29/19 13:19:53 Warehouse Shipping Clerk: MAY Modifier: MAY 3 <*> Implant Identification Description KT NAVID 3 W/COMM DEL SYS [id number] <*> Tissue Implant Type Tissue 10/29/19 08:34:38 Warehouse Shipping Clerk: MAY Modifier: MAY 3 <*> Implant Identification Description KT NAVID 3 W/COMM DEL SYS [id number] <+> Preparation Materials, Other Lot Number 3 <+> Preparation Materials, Other Expiration Date 10/29/19 08:30:15 Warehouse Shipping Clerk: MAY Modifier: MAY <+> 3 Implant Identification Description <+> 3 Implant Identification Serial Number <+> 3 Implant Identification Control Tower Radio Operator Name: <+> 3 Implant Expiration Date <+> 3 Implant Site <+> 3 Implant Quantity <+> 3 Implant Identification Catalog Number <+> 3 Tissue Implant Type <+> 3 Graft Prep Per Control Tower Radio Operator Instructions: <+> 3 Tissue Preparation Method: <+> 3 Preparation Materials, Other <+> 3 Tissue Prepared/Processed By <+> 3 Control Tower Radio Operator Paperwork Completed <+> 3 Implant Has an Expiration Date <+> 3 Type [facility] IntraOp Intraoperative Assessment Entry 1 Handoff Method Online nursing summary Valid History / Yes Physical in Chart Preoperative Yes Checklist Reviewed/Evaluated Allergies Reviewed Yes Patient is Latex No Sensitive Isolation Not applicable Precautions Noted Level of WDL Consciousness (WDL = Alert, Oriented to Person, Place, and Time) Skin Assessment Yes Verified Present Upon IVs Arrival to OR Last Modified By: Solange Sutton [facility]One Pref Card Builder 10/29/19 08:06:01 [facility] IntraOp Intraoperative Equipment Entry 1 Equipment Intraop Monitoring Blood Pressure Arm, right upper Location Pulse Oximeter Hand, left Probe Site Antiembolic Devices Scopes Photo/Video Documentation Last Modified By: Solange Sutton [facility]One Pref Card Builder 10/29/19 08:06:05 [facility] IntraOp Medication Admin Entry 1 Entry 2 Entry 3 Medication/Irrigant lidocaine 1% 30ml vial KENNY VISIPAQUE 320MG 150 KENNY NACL 0.9PCT HPRN - [id number] 200ML --[id number] 1000U .5L --[id number] Combo Med List Time Administered Route of LOCAL FLUSH IRRIGATION/FLUSH Administration Dose Dose 10 65 4000 Unit of Measure ml mg units Volume Administered By MARK HAIRSTON, MARK HAIRSTON, MARK HAIRSTON MD-CAT -CAT -EMMETT Procedure Irrigation Irrigant Volume In Irrigant Volume Out Last Modified By: Solange Sutton KYOne Grimes, Jennifer, KYOne Grimes, Jennifer, KYOne Pref Card Builder Pref Card Builder Pref Card Builder 10/29/19 08:06:19 10/29/19 08:06:19 10/29/19 08:06:19 [facility] IntraOp Patient Positioning Entry 1 Procedure Aortic Valve Replacement Transfemoral Body Position Supine Left Arm Position Tucked and padded at side Right Arm Position Tucked and padded at side Left Leg Position Uncrossed, parallel Right Leg Position Uncrossed, parallel Feet Uncrossed Yes Pressure Points Yes Checked Positioning Devices Head Rest, Pad, Arm, Safety Strap, Thighs Positioned By DOM DE LA TORRE MD-ANS, Solange Sutton KYOne Pref Card Buildvipul, MARK HAIRSTON MD-CAT Position Verified Positioning Yes Verified by Anesthesia Positioning Yes Verified by Surgeon Last Modified By: Solange Sutton [facility]One Pref Card Builder 10/29/19 08:06:32 [facility] IntraOp Sign In Entry 1 Patient, Site, Yes Procedure Identified Surgical Consent Yes Confirmed Relevant Surgical Yes Documents Available Surgical Site N/A Marked by person performing procedure Anesthesia Machine Yes Check Completed Medication Checks Yes Completed Allergies Yes Airway Difficult Yes Airway/Aspiration Risk Difficult Yes Airway/Aspiration Intervention Equipment Available Blood Loss Risk Yes Blood Loss Yes Intervention Equipment Prepared and Ready Hypothermia Risk Yes Warming Measures Yes Taken Last Modified By: Solange Sutton [facility]One Pref Card Builder 10/29/19 08:06:34 [facility] IntraOp Sign Out Entry 1 RN Confirmation Surgical Yes Procedure(s) Identified Instrument, Sponge Yes and Sharps Counts Correct/Documented Equipment Problems N/A Documented Specimen Labeled Yes Correctly Urinary Catheter N/A Documented in IView [place] Patient Yes Recovery Concerns Reviewed with Anesthesia Provider, Surgeon and RN [place] Patient Yes Management Concerns Reviewed with Anesthesia Provider, Surgeon and RN Safety Checklist Yes Elements Complete? RN Sign Out Solange Sutton [facility]One Signature Pref Card Builder RN Sign Out 10/29/19 09:43:00 Signature Date/Time Plan of Care Outcome - Fire Risk OUTCOME STATEMENT: Goal met Patient is free from injury related to surgical fire Plan of Care Outcome - Pt Positioning OUTCOME STATEMENT: Goal met Absence of signs and symptoms of positioning injury. Plan of Care Outcome - Skin Prep OUTCOME STATEMENT: Goal met Intraoperative care is consistent with measures to prevent infection Plan of Care Outcome - Xray/Images OUTCOME STATEMENT: Goal met Absence of observable signs or symptoms of radiation injury Plan of Care Outcome - Counts OUTCOME STATEMENT: Goal met Absence of signs and symptoms of injury related to extraneous objects Last Modified By: Solange Sutton KYOne Pref Card Builder 10/29/19 09:43:07 [facility] IntraOp Sign Out Audit 10/29/19 09:43:07 Warehouse Shipping Clerk: MAY Modifier: MAY <+> 1 RN Sign Out Signature Date/Time [facility] IntraOp Skin Prep Entry 1 Procedure Aortic Valve Replacement Transfemoral Prescribed Yes Pre-Surgical Prep Completed Prep Area CHIN TO KNEES Intraop Prep Integumentary WDL Assessment WDL Prep Agents Chloraprep Prep by Solange Sutton KYOne Pref Card Builder Hair Removal Last Modified By: Solange Sutton KYOne Pref Card Builder 10/29/19 08:06:43 [facility] IntraOp Surgical Procedures Entry 1 Procedure Aortic Valve Replacement Transfemoral Additional TRANSFEMORAL AORTIC Procedure VALVE REPLACEMENT, PUMP Description STAND BY Primary Procedure Yes Primary Surgeon MARK HAIRSTON MD-CAT Start 10/29/19 08:11:00 Stop 10/29/19 09:17:00 Anesthesia Type General Specialty SN Cardio Thoracic Wound Class I - Clean Last Modified By: Solange Sutton KYOne Pref Card Builder 10/29/19 09:43:10 [facility] IntraOp Surgical Procedures Audit 10/29/19 09:43:10 Warehouse Shipping Clerk: MAY Modifier: MAY <+> 1 Stop 10/29/19 09:02:34 Warehouse Shipping Clerk: EMEVA Modifier: [email or web address] 1 <*> Procedure Aortic Valve Replacement Transfemoral 1 <+> Start 1 <*> Additional Procedure Description (AORTIC VALVULOPLASTY, VITOR, POSSIBLE TRANSCATHETER AORTIC VALVE REPLACEMENT, POSSIBLE OPEN AORTIC VALVE REPLACEMENT) [facility] IntraOp Temp Regulation Devices Entry 1 Temp Regulation Temperature Warm blankets Regulation Device Temperature Full body Regulation Site Temperature Solange Sutton KYOne Regulation Device Pref Card Builder Applied by Last Modified By: Solange uStton KYOne Pref Card Builder 10/29/19 08:06:59 [facility] IntraOP Time Out Entry 1 Procedure to be Aortic Valve Performed Replacement Transfemoral Time Out Time Out Pause Time 10/29/19 08:10:00 All activity Yes suspended (unless life threatening emergency) Team Verbally Correct patient Confirms Information identity, Correct side and site are marked, Consent form is present and accurate, Agreement on the procedure to be done, Correct patient position, Relevant images/results properly labeled/appropriately displayed, Confirm antibiotics have been administered, Confirm the skin prep has dried, Confirm prosthesis/implant/devic e is present, Performed in location of procedure after prepped/draped Time Out Comment NO BETA BETY DUE TO PATIENT BEING BRADYCARDIC Antibiotic Yes Prophylaxis Administered Or In Progress Within the Last 60 Minutes Beta Bety N/A Administered Venous Yes Thromboembolism Prophylaxis Required Anticipated Critical Events Surgeon Critical or unexpected steps, Anticipated blood loss, Special equipment need, Special instrumentation need Anesthesia Provider Patient specific concerns Nursing Assures Sterility of instruments, Implant Availability Essential Imaging Yes Labeled and Displayed Last Modified By: Solange Sutton KYOne Pref Card Builder 10/29/19 08:11:18 [facility] IntraOP Time Out Audit 10/29/19 08:11:18 Warehouse Shipping Clerk: MAY Modifier: MAY 1 <+> Beta Bety Administered 1 <+> Time Out Pause Time 1 <*> Procedure to be Performed Aortic Valve Replacement Transfemoral 1 <+> Time Out Comment [facility] IntraOp X-Ray and Images Entry 1 X-Ray/Imaging Type Fluoroscopy Fluoroscopy Type Fixed Site CHEST Regulatory Specialist Name Sherlock, Brenna, Angiography Tech Protective Devices Yes Used Exposure Time 17.5 MIN Last Modified By: Solange Sutton [facility]One Pref Card Builder 10/29/19 09:00:25 Case Comments <None> Finalized By: CASE MONTOYA Document Signatures Signed By: Solange Sutton [facility]One Pref Card Builder 10/29/19 09:43 Solange Sutton [facility]One Pref Card Builder 10/29/19 13:19 CASE MONTOYA 10/31/19 12:09 Unfinalized History Date/Time Username Reason for Unfinalizing Freetext Reason for Unfinalizing 10/29/19 13:19 MAY Correct Documentation 10/31/19 12:06 TIFFANIE Correct Billing Electronically signed by Nikita [facility] Conversion Organ Pipe Maker Metal Cerner at 01/26/2023 9:05 PM CDT documented in this encounter Plan of Treatment Not on file documented as of this encounter Visit Diagnoses Not on filedocumented in this encounter
--- OUTSIDE RECORDS SUMMARY | 2025-03-28 10:42 | XMS_ITS | Encounter Summary ---
Author Organization [employer] Address [address] [place] [address] Care Team Providers Care Lithopress Operator Name Role Phone Unavailable Primary Care Provider Unavailabl e Encounter Details Date Type Department Care Team (Late st Contact Info) Description 10/30/2019 Transcribed Document [facility] [place] [address] [place] [address] ProviderPrasanth MD [facility] [place], [place] [id number] Social History Tobacco Use Types Packs/Day Years Used Date Smoking Tobacco: Never Assessed Sex and Gender Information Value Date Recorded Sex Assigned at Not on file Legal Sex Male 6:49 PM CDT Gender Identity Not on file Sexual Orientation Not on file documented as of this encounter Miscellaneous Notes * Cerner Conversion Note - Prasanth ProviderMD - 10/30/2019 11:30 AM 7TH 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 JAIMEE CARTAEGNA Animal Husbandry Technician-Tail Ripper - 10/30/2019 11:32 EST Living Situation : Home Patient Lives With : Spouse Emergency Contact #1 : Rosa Elena Bustamante Emergency Contact #1 Emergency Contact #1 Relationship : Emergency Contact #2 : na Emergency Contact #2 Phone Number : na Emergency Contact #2 Relationship : na Enter Doctors Name : Marcelino Verenice Does Patient have PCP Listed? : Yes Legal Guardian : No JAIMEE CARTAGENA Animal Husbandry Technician-Tail Ripper - 10/30/2019 11:30 EST Initial Assessment II Sensory and Motor Deficits : None Current Home Treatments and Equipment : None JAIMEE CARTAGENA Animal Husbandry Technician-Tail Ripper - 10/30/2019 11:30 EST Discharge Needs I Anticipated Discharge To, CM : Home independently Current Home Treatment/Equipment : Current Home Treatment/Equipment No qualifying data available. Post Acute/Home Treatments : None Documentation Status Complete : Yes JAIMEE CARTAGENA Animal Husbandry Technician-Tail Ripper - 10/30/2019 11:30 EST Discharge Needs II Professional Skilled Services : Professional Skilled Services No qualifying data available. Needs Assistance with Transportation : No Discharge Options Discussed with Patient : Discharge transportation, DME, Home Health JAIMEE CARTAGENA Animal Husbandry Technician-Tail Ripper - 10/30/2019 11:30 EST Narrative Note Narrative Note : Patient is a low readmission risk of 31. Patient denied ever having HH or SNF services. Patient reported that he is independent with ADLs. He reported that he does not anticipate having any discharge needs. CM will continue to follow for discharge needs. JAIMEE CARTAGENA Animal Husbandry Technician-Tail Ripper - 10/30/2019 11:32 EST documented in this encounter Plan of Treatment Not on file documented as of this encounter Visit Diagnoses Not on filedocumented in this encounter
--- OUTSIDE RECORDS SUMMARY | 2025-03-28 10:42 | XMS_ITS | Encounter Summary ---
Author Organization [employer] Address [address] [place] [address] Care Team Providers Care Family Service Aide Name Role Phone Unavailable Primary Care Provider Unavailabl e Encounter Details Date Type Department Care Team (Late st Contact Info) Description 11/04/2019 Transcribed Document [facility] [place] [facility] [place] [address] ProviderPrasanth MD [address] [place] [id number] Social History Tobacco Use Types Packs/Day Years Used Date Smoking Tobacco: Never Assessed Sex and Gender Information Value Date Recorded Sex Assigned at Not on file Legal Sex Male 6:49 PM CDT Gender Identity Not on file Sexual Orientation Not on file documented as of this encounter Miscellaneous Notes * Cerner Conversion Note - Historical ProviderMD - 11/04/2019 10:27 PM KELP CUTTER DATE OF ADMISSION: 11/04/2019 PRIMARY CARE PHYSICIAN: Dr. Marcelino Caldera, [facility]. REFERRING PHYSICIAN: Dr. Beckman, [facility] , 1935. CURRENT COMPLAINT: Falls, dizziness, irregular heartbeat. HISTORY OF PRESENT ILLNESS: David Cormier is an 84-year-old man, , living in the [facility], who recently underwent a transcatheter aortic valve [...] being an addition to his usual medications. Other medications include 1. Lipitor 20 mg a day. 2. Imdur 30 mg each morning. 3. Lisinopril 20 mg a day. 4. Multivitamin one per day as well as 5. p.r.n. nitroglycerin. ALLERGY: Said to be intolerant of amiodarone. Since going home, he has generally felt well. The night starting on 11/03, he noticed symptoms of intermittent dizziness, usually with standing. Last night, he had significant dizziness and fell against a wall, but not down and did not lose consciousness. This occurred when he arose to go to the bathroom. Today, he called a neighbor, who is a nurse and who checked on him. She found that he had an irregular heartbeat and he was very unsteady on walking, and she sent him to the emergency room. He was evaluated by Dr. Beckman, who identified hypertension; minimally abnormal cardiac biomarker at 0.299. He spoke with Dr. Quinonez, who recommended admission for observation. I interviewed and examined the patient, and reviewed the EKGs and rhythm strips and found that he is having intermittent third-degree heart block. A CT scan of the head reveals a very small right temporoparietal subdural hematoma. He is admitted now to the ICU for control of blood pressure and anti-platelet agents and close monitoring of his rhythm. PAST SURGICAL HISTORY: Prior surgeries include coronary artery bypass grafting in 2007 and prior atrial flutter following the same. Other surgeries include eyelid surgery, left hand surgery, inguinal herniorrhaphy, coronary artery bypass grafting. HABITS: He is a nonsmoker/former smoker. He uses no alcohol. CTs revealed evidence of a probable adrenal adenoma without evidence of endocrine dysfunction. CHILDHOOD ILLNESSES: No rheumatic fever, diphtheria, tuberculosis, polio, or jaundice. FAMILY HISTORY: Hypertension. SOCIAL HISTORY: Retired [employer]. He is . No children. He and his live in the [facility]. 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 REVIEW OF SYSTEMS: A 14-point review of systems otherwise unremarkable except as noted above. He says that while lying on emergency room gurney, he can tell that his heart is irregular and the monitor is revealing an episode of asystole, which may last from 3 to 4 seconds. His rhythm is sinus with periods of asystole either with or without recognizable preceding P-waves, is thought to represent a third-degree heart block. Old records were sought and reviewed including narrative, imaging, diagnostic testing, and laboratory testing. ER records were reviewed, neither his arrhythmia nor subdural were identified by the referring physician. PHYSICAL EXAMINATION: VITAL SIGNS: At this time, blood pressure is 160/70, pulse is typically about 50, occasional pauses as noted above. GENERAL: He is alert and oriented. HEENT: Eyes nonicteric. Extraocular movements conjugate. NECK: Supple. LUNGS: Clear. HEART: Heart tones, these have been, normal. Soft systolic murmur. No diastolic murmur. ABDOMEN: Soft. EXTREMITIES: Unremarkable. He has bruising on his right upper extremity. He has a small skin contusion on the vertex of his head. ASSESSMENT: 1. Intermittent third-degree heart block. 2. Subdural hematoma. 3. Dual anti-platelet therapy. 4. Status post TAVR. 5. Coronary artery disease. RECOMMENDATIONS: We will admit to ICU. Monitor rhythm carefully. Consider cardio-chrono tonic. He is on a Cardene drip to control blood pressure under 140. He will be given 2 units of platelets. In the setting of intracranial hemorrhage on anti-platelet therapy, it is clear that the patients seemed to do worse with platelet resuscitation. Insufficient data is available for acute subdural hematomas to recommend against platelet resuscitation. Following TAVR, cerebral embolism risk is low but present and seems to be ameliorated by DAPT therapy as opposed to aspirin alone. There is no data on platelet resuscitation and cerebral embolism risk with TAVR. I would like to repeat CT in the morning and assuming the worsening of his rhythm, I anticipate likely permanent pacemaker placement on 11/05. /[id number] MD RHIANNON Martínez/AQ / MGAmaury / MODL CC: MD Roberta Royal MD Hamid R Mohammadzadeh, MD John Sartini Electronically signed by Nikita, [facility] Conversion Neck Fitter Cerner at 01/26/2023 8:53 PM CDT documented in this encounter Plan of Treatment Not on file documented as of this encounter Visit Diagnoses Not on filedocumented in this encounter
--- OUTSIDE RECORDS SUMMARY | 2025-03-28 10:42 | XMS_ITS | Encounter Summary ---
Author Organization [employer] Address [address] [place] [address] Care Team Providers Care Mold Setter Name Role Phone Unavailable Primary Care Provider Unavailabl e Encounter Details Date Type Department Care Team (Late st Contact Info) Description 11/14/2018 Transcribed Document [facility] [place] [facility] [place] [address] ProviderPrasanth MD [address] [place] [address] Social History Tobacco Use Types Packs/Day Years Used Date Smoking Tobacco: Never Assessed Sex and Gender Information Value Date Recorded Sex Assigned at Not on file Legal Sex Male 6:49 PM CDT Gender Identity Not on file Sexual Orientation Not on file documented as of this encounter Miscellaneous Notes * Cerner Conversion Note - Prasanth ProviderMD - 11/14/2018 12:26 PM FRONT ELEVATOR OPERATOR [address], [place] [address] Patient Copy Patient Information: Name: SHIRA GARZA HORACIO Current Date: 11/14/2018 12:26:04 : 1935 Patient [address]: [address] [place] [address] [place] [address] Patient Attending Physician: Primary Care Provider: KARON MCWILLIAMS MD-INT Primary Care Provider Discharge Diagnosis: Weight on Admission: 195 lb, 0 oz Comment: Follow-up Instructions: With: Address: When: Dr ford - 12-12-2018 at 1:30 Within 2 to 3 days With: Address: When: follow up with Dr Soliman- 2-3 weeks - post procedure order. Within 2 to 3 days Discharge Instructions: Diet after Discharge: Resume usual diet as tolerated Activity after Discharge: Rest and relax today, No strenuous activities, No heavy lifting over 10 pounds Driving after Discharge: Other: no driving for 24 hrs post procedure Showering/Bathing:Other: Keep site dry. You may shower in 24 hours post procedure.Ssoap and water only. Bandaid- post procedure- to be chnaged each day until site is completely healed. Wound/Incision Care after Discharge: Keep operative site/wound site clean and dry Immunizations Documented During Stay: No Immunizations Found Heart Failure Discharge Instructions (if any): Stroke Related Discharge Instructions (if any): Warfarin Related Discharge Instructions (if any): Final Medication List: Other Medications apixaban (Eliquis 5 mg oral tablet) 1 Tablet(s) Oral Two Times A Day. aspirin (aspirin 81 mg oral tablet) 1 Tablet(s) Oral Every Day. atorvastatin 10 mg Oral Daily. flecainide (flecainide 50 mg oral tablet) 1 Tablet(s) Oral every 12 hours. hydrochlorothiazide-lisinopril (hydroCHLOROthiazide-lisinopril 12.5 mg-20 mg oral tablet) 1 Tablet(s) Oral Every Day. Patient Allergies: No Known Allergies Medication Instructions: Take your medications faithfully. Do NOT skip [...] cramping, rapid heartbeat, difficulty sleeping, and nervousness. Patient education materials: Cardiac Ablation Cardiac ablation is a procedure to stop some heart tissue from causing problems. The heart has many electrical connections. Sometimes these connections cause the heart to beat very fast or irregularly. Removing some of the problem areas can improve heart rhythm or make it normal. Ablation is done for people who: ??? Have Pziyn-Yvibvnsno-Vrzba syndrome. ??? Have other fast heart rhythms (tachycardia). ??? Have taken medicines for an abnormal heart rhythm (arrhythmia) and the medicines had: ? No success. ? Side effects. ??? May have a type of heartbeat that could cause . What happens before the procedure? Follow instructions from your doctor about eating and drinking before the procedure. ??? Take your medicines as told by your doctor. Take them at regular times with water unless told differently by your doctor. ??? If you are taking diabetes medicine, ask your doctor how to take it. Ask if there are any special instructions you should follow. Your doctor may change how much insulin you take the day of the procedure. What happens during the procedure? A special type of X-ray will be used. The X-ray helps your doctor see images of your heart during the procedure. ??? A small cut (incision) will be made in your neck or groin. ??? An IV tube will be started before the procedure begins. ??? You will be given a numbing medicine (anesthetic) or a medicine to help you relax (sedative). ??? The skin on your neck or groin will be numbed. ??? A needle will be put into a large vein in your neck or groin. ??? A thin, flexible tube (catheter) will be put in to reach your heart. ??? A dye will be put in the tube. The dye will show up on X-rays. It will help your doctor see the area of the heart that needs treatment. ??? When the heart tissue that is causing problems is found, the tip of the tube will send an electrical current to it. This will stop it from causing problems. ??? The tube will be taken out. ??? Pressure will be put on the area where the tube was. This will keep it from bleeding. A bandage will be placed over the area. What happens after the procedure? You will be taken to a recovery area. Your blood pressure, heart rate, and breathing will be watched. The area where the tube was will also be watched for bleeding. ??? You will need to lie still for 4?6 hours. This keeps the area where the tube was from bleeding. This information is not intended to replace advice given to you by your health care provider. Make sure you discuss any questions you have with your health care provider. Document Released: 05/29/2014 Document Revised: 03/03/2017 Document Reviewed: 02/21/2014 Elsevier Interactive Patient Education ? 2017 [employer] Atrial Flutter Atrial flutter is a type of abnormal heart rhythm (arrhythmia). In atrial flutter, the heartbeat is fast but regular. There are two types of atrial flutter: ??? Paroxysmal atrial flutter. This type starts suddenly. It usually stops on its own soon after it starts. ??? Permanent atrial flutter. This type does not go away. What are the causes? This condition may be caused by: ??? A heart condition or problem, such as: ? A heart attack. ? Heart failure. ? A heart valve problem. ??? A lung problem, such as: ? A blood clot in the lungs (pulmonary embolism, or PE). ? Chronic obstructive pulmonary disease. ??? Poorly controlled high blood pressure (hypertension). ??? Hyperthyroidism. ??? Caffeine. ??? Some decongestant cold medicines. ??? Low levels of minerals called electrolytes in the blood. ??? Cocaine. What increases the risk? This condition is more likely to develop in: ??? Elderly adults. ??? Men. What are the signs or symptoms? Symptoms of this condition include: ??? A feeling that your heart is pounding or racing (palpitations). ??? Shortness of breath. ??? Chest pain. ??? Feeling light-headed. ??? Dizziness. ??? Fainting. How is this diagnosed? This condition may be diagnosed with tests, including: ??? An electrocardiogram (ECG). This is a painless test that records electrical signals in the heart. ??? Holter monitoring. For this test, you wear a device that records your heartbeat for 1?2 days. ??? Cardiac event monitoring. For this test, you wear a device that records your heartbeat for up to 30 days. ??? An echocardiogram. This is a painless test that uses sound waves to make a picture of your heart. ??? Stress test. This test records your heartbeat while you exercise. ??? Blood tests. How is this treated? This condition may be treated with: ??? Treatment of any underlying conditions. ??? Medicine to make your heart beat more slowly. ??? Medicine to keep the condition from coming back. ??? A procedure to keep the condition under control. Some procedures to do this include: ? Cardioversion. During this procedure, medicines or an electrical shock are given to make the heart beat normally. ? Ablation. During this procedure, the heart tissue that is causing the problem is destroyed. This procedure may be done if atrial flutter lasts a long time or happens often. Follow these instructions at home: ??? Take saiq-nef-wwewztu and prescription medicines only as told by your health care provider. ??? Do nottake any new medicines without talking to your health care provider. ??? Do notuse tobacco products, including cigarettes, chewing tobacco, or e-cigarettes. If you need help quitting, ask your health care provider. ??? Limit alcohol intake to no more than 1 drink per day for non women and 2 drinks per day for men. One drink equals 12 oz of beer, 5 oz of wine, or 1? oz of hard liquor. ??? Try to reduce any stress. Stress can make your symptoms worse. Contact a health care provider if: ??? Your symptoms get worse. Get help right away if: ??? You are dizzy. ??? You feel like fainting or you faint. ??? You have shortness of breath. ??? You feel pain or pressure in your chest. ??? You suddenly feel nauseous or you suddenly vomit. ??? There is a sudden change in your ability to speak, eat, or move. ??? You are sweating a lot for no reason. This information is not intended to replace advice given to you by your health care provider. Make sure you discuss any questions you have with your health care provider. Document Released: 02/12/2010 Document Revised: 02/02/2017 Document Reviewed: 04/09/2016 [employer] Interactive Patient Education ? 2017 [employer] Moderate Conscious Sedation, Adult, Care After These [...] you are awake and alert. ??? Take sing-rae-mmqnzsg and prescription medicines only as told by [...] 07/17/2014 Document Revised: 02/28/2017 Document Reviewed: 01/15/2017 [employer] Interactive Patient Education ? 2017 [employer] CIGARETTE SMOKING: The facts are clear, cigarette smoking will shorten your life. Smoking can cause many illnesses along the way. As a healthcare provider, we recommend that you stop smoking. Assistance with quitting is available by contacting 0-048-RAHF-NOW. This is a free resource providing counseling, support, and referral. Or you may contact your personal physician. 4 WAYS TO GET AHEAD OF SEPSIS SEPSIS is a MEDICAL EMERGENCY. Time matters! Infections put you and your family at risk for a life-threatening condition called sepsis. Sepsis is the body???s extreme response to an infection. It is life-threatening, and without timely treatment, sepsis can rapidly lead to tissue damage, organ failure, and . Sepsis happens when an infection you already have???in your skin, lungs, urinary tract or somewhere else???triggers a chain reaction throughout your body. 1 [...] sepsis or if you have an infection that???s not getting better or is getting worse. To learn more about sepsis and how to prevent infections, visit www.cdc.gov/sepsis. STROKE is an EMERGENCY Every Minute Counts ACT F.A.S.T! FACE ?? Facial droop ?? Uneven smile ARM ?? Arm numbness ?? Arm weakness SPEECH ?? Slurred speech ?? Difficulty speaking or understanding TIME ?? Call 911 and get to the hospital immediately Have the ambulance go to the nearest stroke center. STROKE Risk Factors High blood pressure High cholesterol Heart Disease Diabetes Smoking Heavy alcohol use Physical inactivity and obesity Atrial Fibrillation (irregular heartbeat) Family history of stroke Reminder: Be sure to sign up for the [employer] patient portal, which gives you 02/05 access to your medical information ??? including these discharge instructions ??? using your computer, smartphone, or tablet. Just go to [employer] to get started. Questions? Call . [facility] would like to thank you for allowing us to assist you with your healthcare needs. KAYLA Yee RONALD DEAN, (or territory account representative) have received the above patient education materials/instructions and have verbalized understanding: Patient Signature _ Date/Time Patient Artificial Limb Fitter Signature (if needed) Date/Time Clinician/Hospital Artificial Limb Fitter Signature (if needed) Date/Time Electronically signed by Nikita, [facility] Conversion Barrel Line Operator Devynner at 01/26/2023 9:10 PM CDT documented in this encounter Plan of Treatment Not on file documented as of this encounter Visit Diagnoses Not on filedocumented in this encounter
--- OUTSIDE RECORDS SUMMARY | 2025-03-28 10:42 | XMS_ITS | Encounter Summary ---
Author Organization [facility] Address [address] [place] [address] Care Team Providers Care Motor Vehicle Light Assembler Name Role Phone Unavailable Primary Care Provider Unavailabl e Encounter Details Date Type Department Care Team (Late st Contact Info) Description 06/02/2021 Transcribed Document [facility] [place] Medicine [facility] [place] [address] ProviderPrasanth MD [address] [place] [address] Social History Tobacco Use Types Packs/Day Years Used Date Smoking Tobacco: Never Assessed Sex and Gender Information Value Date Recorded Sex Assigned at Not on file Legal Sex Male 6:49 PM CDT Gender Identity Not on file Sexual Orientation Not on file documented as of this encounter Miscellaneous Notes * Cerner Conversion Note - Prasanth ProviderMD - 06/02/2021 11:57 AM CDT Patient: SHIRA GARZA HORACIO Age: 85 Years Sex: Male : 1935 Chief Complaint Pt c/o episode of CP x 2 hours last night, new onset bialteral weakness R>L onset 2200 last night that resolved after 2 hours. Reason for consultation: Elevated troponin Cardiology: Dr. Domingo History of Present Illness The patient is an 85 year old gentleman with a past medical [...] complaints of shortness of breath. 09/11/2019 cardiac cath revealed Severe aortic stenosis. Patency of all [...] was normal. The patient was started on anticoagulation. Repeat VITOR 12/2020 Impression: S/P TAVR, normally functioning. Normal appearance of the valve leaflets and leaflet motion. There is no evidence of jaida-valvular leak. Peak velocity 2.3m/s. Peak gradient 22mmHg. Normal left ventricular size and systolic function. The interatrial septum is aneurysmal. Grade 3 thoracic aorta atherosclerosis. Anticoagulation has been DCd. He presents today with multiple complaints. He developed mid-sternal CP last night around 10. No associated symptoms, no radiation of symptoms. Details are vague. Notes he got up from chair, was unable to lift his right leg. Notes he had to drag it to walk. CP resolved, has not recurred. He went on to bed. Upon awakening this morning he reports continued difficulty with ambulation d/t right leg heaviness. He notes confusion and difficulty with thought process. He called our office to report symptoms and was directed to ER. Labs drawn, Troponin 1.21. He denies CP, SOA. No EKG changes, chronic RBBB. Head CT has been ordered. Upon consultation patient is CP free. He reports no dyspnea. Notes marked dyspnea present prior to cardiac issues in the past. He reports generalized weakness as well. Neurology consult pending. Review of Systems Constitutional: [No fevers, chills, sweats] Eye: [No recent visual problems, eye discharge, eye pain, redness] HEENT: [No ear pain, nasal congestion, sore throat, voice changes] Respiratory: [No shortness of breath, cough, pain on breathing, sputum production] Cardiovascular: [No Chest pain, palpitations, syncope, shortness of breath while laying flat] Gastrointestinal: [No nausea, vomiting, diarrhea, constipation] Endocrine: [Negative for excessive thirst, excessive hunger, excessive urination, heat or cold intolerance] Musculoskeletal: [No back pain, neck pain, joint pain, muscle pain, decreased range of motion] Integumentary: [No rash, pruritus, abrasions, lesions] Neurologic: [right sided LE weakness. + confusion this am] Psychiatric: [No anxiety, depression, mood changes, hallucinations] Physical Exam Vitals & Measurements T: 36.4 ??C HR: 66(Monitored) RR: 24 BP: 113/63 SpO2: 93% HT: 175.26 cm WT: 90.18 kg BMI: 29.4 General: [Well-developed, well nourished, no acute distress]. Neurologic: [Awake, alert, and oriented X3, CN II-XII intact]. Eye: [PERRL, EOMI, normal conjunctiva]. HENT: [Normocephalic, normal hearing, moist oral mucosa, no scleral icterus, no sinus tenderness]. Neck: [Supple, non-tender, no carotid bruits, no JVD, no lymphadenopathy]. Lungs: [Clear to auscultation and percussion, non-labored respiration]. Heart: [Normal rate, regular rhythm, no murmur, gallop or edema]. Abdomen: [Soft, non-tender, non-distended, normal bowel sounds, no masses]. Skin: [Skin is warm, dry and pink, no rashes or lesions]. Psychiatric: [Cooperative, appropriate mood and affect]. Assessment/Plan 1. Elevated troponin - Will trend - No EKG changes - He is currently asymptomatic. CP last evening without recurrence - Long complicated cardiac history - Echo will be obtained to assess for LV function and WMA - Recommend continuous telemetry monitoring - No plans for LHC at this time - Continue medical management for now - ASA/Statin/BB - Daily EKGs 2. CVA/TIA-like symptoms - Right LE weakness, confusion - Outside window for TPA - Head CT pending - Neurology workup requested - Consider repeat VITOR to reassess TAVR, initially complicated by thrombus 3. CAD s/p 5 vessel CABG in 2007 (eq BYRD 2nd diagonal & LAD, SVG to PDA branch of the LCx, seq SVG to D1 & OM2) - Elevated troponin, concern for NSTEMI. Also with TIA symptoms which can also elevate troponin - Monitor closely - Trend troponin/EKGs 4. Aortic valve stenosis - s/p TAVR - Consider repeat VITOR to reassess for thrombus 5. SSS - s/p [employer] [place] Biventricular PPM 6. RBBB/LAFB - Chronic Thank you for this consult Will follow Problem List/Past Medical History Ongoing Aortic valve stenosis At risk for sleep apnea At risk for sleep apnea Atrial fibrillation Atrial flutter Benign neoplastic disease CAD (coronary artery disease) CAD - Coronary artery disease Chest pain H/O aortic valve replacement Hard of hearing HLD - Hyperlipidemia HTN - Hypertension Hyperlipidemia Hyperlipidemia Hypertension Hypertension Impaired vision in both eyes Right bundle branch block Shortness of breath Wears glasses Historical Aortic stenosis Renal calculus Subdural hematoma Syncope Procedure/Surgical History ULTRASONOGRAPHY OF HEART WITH AORTA (08/04/2020), INSERT CARD RSYNC PACE PULS GEN IN CHEST SUBCU/FASCIA, OPEN (11/07/2019), INSERTION OF PACEMAKER LEAD INTO R VENTRICLE, PERC APPROACH (11/07/2019), ULTRASONOGRAPHY OF HEART WITH AORTA (11/05/2019), INTRODUCTION OF SERUM/TOX/VACCINE INTO MUSCLE, PERC APPROACH (11/04/2019), Biventricular pacemaker implant -[employer] (10/29/2019), FLUOROSCOPY OF THORACIC AORTA (10/29/2019), REPLACEMENT OF AORTIC VALVE WITH ZOOPLASTIC, PERC APPROACH (10/29/2019), TAVR (10/29/2019), CABG x5 (05/29/2008), bilateral eyelid lift, colonoscopy - times 4, cyst removed - upper back, heart catheterization, right inguinal hernia repair, right wrist surgery - plate placed, vasectomy. Allergies Plavix amiodarone (Unknown) Medications aspirin, 324 mg= 4 Tab, Chew, 1-Time atorvastatin 20 mg oral tablet, 20 mg= 1 Tab, Oral, Tuesday hydroCHLOROthiazide-lisinopril 12.5 mg-20 mg oral tablet, 1 Tab, Oral, Daily isosorbide mononitrate, 20 mg, Oral, BID Metoprolol Succinate ER, 25 mg, Oral, Daily multivitamin, 1 Tab, Oral, Daily Nitrostat 0.4 mg sublingual tablet, 0.4 mg= 1 Tab, SubLINgual, Q5Min, PRN Normal Saline Flush, 10 mL, IV Push, 1-Time, PRN ranolazine, 500 mg, Oral, BID warfarin, 5 mg, Oral, Daily Family History Cancer Social History Alcohol Alcohol Use History No. [...] smoking 2007. Code Status / Living Will No qualifying data available. Labs Results JUN 02 10:05 138 109 H 28 / H 127 3.7 24 1.10 \ JUN 02 10:05 \ 14.4 / 6.1 L 123 / 43.4 \ Cardiac Labs Cardiology Labs Cardiac Markers Troponin I Ultra: 1.21 ng/mL Critical (06/02/21 10:05:00) Diagnostics EKG NSR with RBBB. No acute ischemic change Echo Pending documented in this encounter Plan of Treatment Not on file documented as of this encounter Visit Diagnoses Not on filedocumented in this encounter
--- OUTSIDE RECORDS SUMMARY | 2025-03-28 10:42 | XMS_ITS | Encounter Summary ---
Author Organization [facility] Address [address] [place] [address] Care Team Providers Care Tailer Off Name Role Phone Unavailable Primary Care Provider Unavailabl e Encounter Details Date Type Department Care Team (Late st Contact Info) Description 11/07/2019 Transcribed Document [facility] [place] Family Medicine [facility] [place], [place] [id number] ProviderPrasanth MD [address] [place] [id number] Social History Tobacco Use Types Packs/Day Years Used Date Smoking Tobacco: Never Assessed Sex and Gender Information Value Date Recorded Sex Assigned at Not on file Legal Sex Male 6:49 PM CDT Gender Identity Not on file Sexual Orientation Not on file documented as of this encounter Miscellaneous Notes * Cerner Conversion Note - Prasanth Sanchez MD - 11/07/2019 4:54 PM SENIOR UNIX ADMINISTRATOR DATE OF PROCEDURE: 11/07/2019 SURGEON: Dionicio Soliman MD PREOPERATIVE DIAGNOSIS: Complete heart block, status post transcatheter aortic valve replacement. POSTOPERATIVE DIAGNOSIS: complete heart block, status post transcatheter aortic valve replacement. PROCEDURE PERFORMED: Biventricular pacemaker implant. DESCRIPTION OF PROCEDURE: After the aseptic draping of the left pectoral region, the infraclavicular site was infiltrated with 1% lidocaine locally. Using an extrathoracic micropuncture venography-guided approach, the left axillary vein was cannulated with 3 wires. A 3 to 4 cm transverse incision was placed at the level of the venipuncture site and blunt dissection was carried down to the level of prepectoralis fascia, at which time a generator pocket was formed. The guidewire was withdrawn to the level of pocket allowing introduction of sheath and dilator assembly sets. A [employer] Austin lead model 2088, serial #[id number], was affixed to the right ventricular apex with the Q capture threshold at a pulse width of 0.5 millisecond was 0.7 V, with lead impedance 590 ohms, and R-wave being sensing greater than [address] [place] coronary sinus sheath was advanced into the coronary sinus over deflectable electrode catheter, which was exchanged for an endhole balloon-tipped catheter. Coronary sinus venography was performed. There was one candidate mid posterolateral vein. A [employer] senior biostatistician/group leader model 1458, serial #[id number], was advanced to the distal aspect, and using an M3-M2 configuration, the capture threshold was 1.5 V with lead impedance of 930 ohms. The delivery system was removed in a standard fashion. Next, a [employer] senior biostatistician/group leader model 2088, serial #[id number], was affixed to the right atrial appendage where the Q capture threshold was 0.5 V with lead impedance of 490 ohms, and sensed P-wave 2 mV. All leads were affixed to the prepectoralis fascia using interrupted 0 silk sutures around the retention collars. The pocket was irrigated with antibiotic solution. Hemostasis was achieved. A [employer] Medical pulse generator model DH6738, serial #[id number], was attached to the leads and placed in a TYRX pouch. The system was implanted into the pocket. Interrupted 2-0 and running 3-0 Vicryl sutures were used to close the wound at the deep and superficial subcutaneous levels, running 4-0 Vicryl suture was used to close the wound in subcuticular level. Medical adhesive was placed over the incision followed by placement of Aquacel patch. The patient tolerated the procedure well and left the laboratory in stable condition. COMPLICATIONS: None. ESTIMATED BLOOD LOSS: 30 mL. SPECIMEN REMOVED: None. RADIATION EXPOSURE: 501 mGy AK. IMPRESSION: Status post cardiac resynchronization therapy pacemaker implant. RECOMMENDATIONS: Standard postop wound care, device clinic followup, and home remote monitoring. /[id number] MD DORA [place]/AQ / TCR / MODL /[id number] Electronically signed by Carla Shelton Conversion Capacity Management Specialist Cerner at 01/26/2023 8:51 PM CDT documented in this encounter Plan of Treatment Not on file documented as of this encounter Visit Diagnoses Not on filedocumented in this encounter
--- OUTSIDE RECORDS SUMMARY | 2025-03-28 10:42 | XMS_ITS | Encounter Summary ---
Author Organization [facility] Address [address] [place] [id number] Care Team Providers Care Insurance Policy Issue Clerk Name Role Phone Unavailable Primary Care Provider Unavailabl e Encounter Details Date Type Department Care Team (Late st Contact Info) Description 10/29/2019 Transcribed Document [facility] [place] [facility] [place] [address] ProviderPrasanth MD [address] [place] [address] Social History Tobacco Use Types Packs/Day Years Used Date Smoking Tobacco: Never Assessed Sex and Gender Information Value Date Recorded Sex Assigned at Not on file Legal Sex Male 6:49 PM CDT Gender Identity Not on file Sexual Orientation Not on file documented as of this encounter Miscellaneous Notes * Cerner Conversion Note - Prasanth ProviderMD - 10/29/2019 6:00 AM HR CLERK Patient: SHIRA GARZA HORACIO Age: 84 years Sex: Male : 1935 Associated Diagnoses: None Author: KIMBER PADRON APRN Chief Complaint Aortic stenosis Review of Systems ROS reviewed as documented in chart no change since last seen by surgeon Health Status Allergies: Allergic Reactions (Selected) Severity Not Documented Amiodarone- Unknown., Allergies (1) Active Reaction amiodarone Unknown Current medications: (Selected) Inpatient Medications Ordered Ancef: 2 Gram, 50 mL, 100 mL/Hr, IV Piggyback, 1-Time Lactated Ringers Injection intravenous solution 1,000 mL: 20 mL/Hr, IntraVENous lidocaine 1% injectable solution: 0.5 mL, IntraDermal, 1-Time, PRN: Other (See Comment) Documented Medications Documented aspirin 81 mg oral tablet: 1 Tab, Oral, Daily, 30 Tab, 0 Refill(s) atorvastatin: 20 mg, Oral, Weekly, 0 Refill(s) isosorbide mononitrate 30 mg oral tablet, extended release: 1 Tab, Oral, QAM, 0 Refill(s) lisinopril 20 mg oral tablet: 1 Tab, Oral, Daily, 0 Refill(s) multivitamin: 1 Tab, Oral, Daily, 0 Refill(s) nitroglycerin: 0.4 mg, SubLINgual, Q5Min, 0 Refill(s), Home Medications (6) Active aspirin 81 mg oral tablet 81 mg = 1 Tab, Oral, Daily atorvastatin 20 mg, Oral, Weekly isosorbide mononitrate 30 mg oral tablet, extended release 30 mg = 1 Tab, Oral, QAM lisinopril 20 mg oral tablet 20 mg = 1 Tab, Oral, Daily multivitamin 1 Tab, Oral, Daily nitroglycerin 0.4 mg, SubLINgual, Q5Min , Medications (3) Active Scheduled: (1) ceFAZolin/D5w 2 Gram 50 mL, IV Piggyback, 1-Time Continuous: (1) lactated ringers 1,000 mL 1,000 mL, IntraVENous, 20 mL/Hr PRN: (1) lidocaine 1% *PF* inj 2 mL 0.5 mL, IntraDermal, 1-Time Problem list: All Problems Wears glasses / SNOMED CT 523230061 / Confirmed Right bundle branch block / SNOMED CT 70047891 / Confirmed Renal calculus / SNOMED CT 946796604 / Confirmed Hypertension / SNOMED CT 38411798 / Confirmed Hyperlipidemia / SNOMED CT 28793184 / Confirmed Shortness of breath / SNOMED CT 332689045 / Confirmed CAD (coronary artery disease) / SNOMED CT 67297437 / Confirmed Benign neoplastic disease / SNOMED CT 68502117 / Confirmed Atrial flutter / SNOMED CT 5241311 / Confirmed At risk for sleep apnea / IMO [id number] / Confirmed Aortic stenosis / SNOMED CT 376236457 / Confirmed, Active Problems (11) Aortic stenosis At risk for sleep apnea Atrial flutter Benign neoplastic disease CAD (coronary artery disease) Hyperlipidemia Hypertension Renal calculus Right bundle branch block Shortness of breath Wears glasses Histories Past Medical History: No active or resolved past medical history items have been selected or recorded. Family History: No family history items have been selected or recorded. Procedure history: coronary artery bypass graft. right inguinal hernia repair. cyst removed - upper back. colonoscopy - times 4. Comments: 11/14/2018 7:33 RADHA MCKEON RN polyps removed. heart catheterization. vasectomy. right wrist surgery - plate placed. Social History Social & Psychosocial Habits Alcohol 11/14/2018 Alcohol Use History, Social Habits No Employment/School 10/26/2019 Status: Employed Home/Environment 10/26/2019 Lives with: Spouse Living situation: Home/Independent Substance Abuse 11/14/2018 Recreational Drug Use History No Recreational Drug Use Last 12 Months No Tobacco 11/14/2018 Smoking Status 3 cigs in evening- 1954- 2007. quit 2007. . Physical Examination VS/Measurements No qualifying data available General: Alert and oriented, No acute distress. Eye: Pupils are equal, round and reactive to light, Extraocular movements are intact, glasses. HENT: Normocephalic, Normal hearing. Neck: Supple, Non-tender. Respiratory: Lungs are clear to auscultation, Respirations are non-labored. Cardiovascular: Normal rate, Regular rhythm, No gallop, No edema, murmur 3/6. Gastrointestinal: Soft, Non-tender. Genitourinary: No costovertebral angle tenderness. Lymphatics: No lymphadenopathy neck, axilla, groin. Musculoskeletal: Normal range of motion, Normal strength. Integumentary: Warm, Dry, [place]. Neurologic: Alert, Oriented. Psychiatric: Cooperative, Appropriate mood & affect. Review / Management Results review: Labs (Last four charted values) WBC L 3.4 (OCT 26) HB 14.5 (OCT 26) HCT 44.1 (OCT 26) Plt L 123 (OCT 26) Na 139 (OCT 26) K 3.9 (OCT 26) Cl 107 (OCT 26) CO2 29 (OCT 26) BUN H 26 (OCT 26) Cr 1.10 (OCT 26) Glu R 104 (OCT 26) Ca 8.8 (OCT 26) PT 10.6 (OCT 26) INR 1.0 (OCT 26) PTT 28.7 (OCT 26) AST 23 (OCT 26) ALT 25 (OCT 26) ALK P 70 (OCT 26) T Bili 0.6 (OCT 26) PTN 7.3 (OCT 26) ALB 3.6 (OCT 26) Troponin H 0.126 (OCT 26) . Impression and Plan Condition: Stable. Electronically signed by Filiberto Shelton Conversion Physical Therapy Assistant Instructor Cerner at 01/26/2023 9:09 PM CDT documented in this encounter Plan of Treatment Not on file documented as of this encounter Visit Diagnoses Not on filedocumented in this encounter
--- OUTSIDE RECORDS SUMMARY | 2025-03-28 10:42 | XMS_ITS | Encounter Summary ---
Author Organization [facility] Address [address] [place] [address] Care Team Providers Care Student Driving Instructor Name Role Phone Unavailable Primary Care Provider Unavailabl e Encounter Details Date Type Department Care Team (Late st Contact Info) Description 06/03/2021 Transcribed Document [facility] [place] [facility] [place] [address] ProviderPrasanth MD [address] [place] [address] Social History Tobacco Use Types Packs/Day Years Used Date Smoking Tobacco: Never Assessed Sex and Gender Information Value Date Recorded Sex Assigned at Not on file Legal Sex Male 6:49 PM CDT Gender Identity Not on file Sexual Orientation Not on file documented as of this encounter Miscellaneous Notes * Cerner Conversion Note - Prasanth ProviderMD - 06/03/2021 9:57 AM CDT Patient: SHIRA GARZA HORACIO Age: 85 years Sex: Male : 1935 Associated Diagnoses: None Author: HIEN ARRIETA MD-LUZ Subjective Pt reports he feels well, no further episodes of chest pain or right leg weakness/trouble speaking Objective VS/Measurements Vital Signs/Vital Measures 06/03/2021 8:39 EDT Systolic Blood Pressure 116 mmHg Diastolic Blood Pressure 66 mmHg Heart Rate, Apical 71 bpm 06/03/2021 5:36 EDT Temperature, Fahrenheit 98.8 Deg F General: awake and alert, in no distress; speech is fluent with no dysarthria. Eye: Pupils are equal, round and reactive to light, Extraocular movements are intact. Respiratory: Respirations are non-labored. Cardiovascular: Normal rate, Regular rhythm. Neurologic: CN II-VII intact; motor strength is 5/5 throughout, sensation intact, no ataxia. Psychiatric: Cooperative. Results Review Carotid dopplers- no significant stenosis Echo- EF 50%; no masses/thrombi noted Labs reviewed; LDL 130 Impression and Plan 85yo M with h/o CAD, aortic valve stenosis s/p TAVR with cardiac thrombus, HTN, HL admitted with chest pain as well as an episode of right leg weakness and speech difficulty during chest pain; all symptoms have now resolved and he is at baseline. He is being evaluated by cardiology for possible NSTEMI due to elevated troponin and chest pain. CT head, echo and carotid dopplers are unremarkable; he is not a candidate for MRI due to pacemaker/defibrillator. TIA is possible; he is on aspirin, has not tolerated Plavix in the past due to subdural hematoma, will defer to cardiology if there is any indication for anticoagulation. I will change statin to daily dosing as he had been on just one/week and LDL is elevated. No further workup needed from neurology standpoint; will follow as needed from here. Call with questions. documented in this encounter Plan of Treatment Not on file documented as of this encounter Visit Diagnoses Not on filedocumented in this encounter
--- OUTSIDE RECORDS SUMMARY | 2025-03-28 10:42 | XMS_ITS | Encounter Summary ---
Author Organization [employer] Address [address] [place] [address] Care Team Providers Care First Helper Name Role Phone Unavailable Primary Care Provider Unavailabl e Encounter Details Date Type Department Care Team (Late st Contact Info) Description 09/11/2019 Transcribed Document [facility] [place] [facility] [place] [address] ProviderPrasanth MD [facility] [place] [address] Social History Tobacco Use Types Packs/Day Years Used Date Smoking Tobacco: Never Assessed Sex and Gender Information Value Date Recorded Sex Assigned at Not on file Legal Sex Male 6:49 PM CDT Gender Identity Not on file Sexual Orientation Not on file documented as of this encounter Miscellaneous Notes * Cerner Conversion Note - Historical ProviderMD - 09/11/2019 6:28 AM BOAT LOADER HELPER Pre Procedure Adult Entered On: 09/11/2019 6:39 EST Performed On: 09/11/2019 6:28 EST by AV KING RN Height and Weight, Clinical Dosing Height Source : Stated Height Entry Format : [place] Height, Feet : 5 ft(Converted to: 152 cm, 60 Inch) Height, Inches : 10 Inch(Converted to: 0 ft 10 Inch, 25.40 cm) Clinical Height : 177.8 cm Weight Source : Standing scale Weight Entry Format : [place] Clinical Dosing Weight : 92.27 kg Weight, Pounds : 203 lb Body Surface Area (BSA) : 2.1 m2 Body Mass Index : 29.2 kg/m2 (HI) [place] Body Weight : 72 kg AV KING RN - 09/11/2019 6:28 EST Health Histories Smoking Status : Former smoker, quit more than 30 days ago Smokeless Tobacco Status : Never AV KING RN - 09/11/2019 6:28 EST Social History (As Of: 09/11/2019 06:39:15 EST) Tobacco: 3 cigs in evening- 1954- 2007. quit 2007. Smoking Status. (Last Updated: 11/14/2018 07:19:01 EST by RADHA TERRAZAS RN) Alcohol: Alcohol Use History No. (Last Updated: 11/14/2018 07:19:08 EST by RADHA TERRAZAS RN) Substance Abuse: Drug Use Hx: No. Use in Last 12 Months: No. (Last Updated: 11/14/2018 07:19:13 EST by RADHA TERRAZAS RN) Infectious Disease History Infectious Disease History : Chicken pox/Shingles, Influenza, Measles, Mumps, Pertussis (Whooping cough) Fever/Chills Last 48 Hours : No Travel To Regions with Travel Advisories : No Travel Outside [place] Within Last 30 Days : No Contact With Traveler to Advisory Region : No Tuberculosis Symptoms : None AV KING RN - 09/11/2019 6:28 EST Anesthesia/Transfusion History Family History of Anesthesia Reaction : No prior transfusion(s) Transfusion History : Prior anesthesia without reaction Family History of Anesthesia Reaction : None AV KING RN - 09/11/2019 6:28 EST Functional Assessment Living Situation : Home Patient Lives With : Spouse Current Home Treatments : None AV KING RN - 09/11/2019 6:28 EST [place] Suicide Severity Rating Scale (C-SSRS) CSSRS Past Month Wish to be : No CSSRS Past Month Suicidal Thoughts : No CSSRS Lifetime Suicide Behavior : No Suicide Severity Rating Score : 0 Suicide Severity Rating : No Additional Care Required at this time AV KING RN - 09/11/2019 6:28 EST Psychosocial History Currently in Unsafe Situation : No AV KING RN - 09/11/2019 6:28 EST Advance Directive Patient has Advance Directive *Q : Yes, Advance Directive not with the patient Advance Directive Type : Living will Copy Advance Directive Verified/on Chart : No AV KING RN - 09/11/2019 6:28 EST Teaching/Learning Assessment Barriers To Learning : None evident Individuals Taught : Patient, Spouse AV KING RN - 09/11/2019 6:28 EST Education Topics, Periop Preadmission Perioperative Education Grid Arrival Time/Place : Verbalizes understanding Falls : Verbalizes understanding Infection Control : Verbalizes understanding IV's : Verbalizes understanding NPO Status/Directions : Verbalizes understanding Pain Management : Verbalizes understanding Postoperative Care Preparations : Verbalizes understanding Preprocedure Preparations : Verbalizes understanding Preprocedure Tests/Labs : Verbalizes understanding Responsible Adult : Verbalizes understanding AV KING RN - 09/11/2019 6:28 EST General Info Support Person/Pt Rep Name : Rosa Elena Bustamante- spouse Want Family/Rep/Phys Notified of Admit : No Emergency Contact #1 : .. Emergency Contact #1 Phone Number : .. Emergency Contact #1 Relationship : .. Emergency Contact #2 : .. Emergency Contact #2 Phone Number : .. Emergency Contact #2 Relationship : .. Primary Language : Persian Communication Barrier : None AV KING RN - 09/11/2019 6:28 EST Sleep Apnea Risk Assmt Hx of Obstructive Sleep Apnea Diagnosis : No Snore Loudly : Yes Tired, Fatigued, or Sleepy During Day : No Observed Stopping Breathing During Sleep : Yes Have/Are Being Treated for Hypertension : Yes BMI Greater Than 35 kg/m2 : Yes Age over 50 Years Old : Yes Neck Circumference Greater Than 40 cm : Yes Gender Male : Yes STOP-BANG Sleep Apnea Risk Level Score : 7 AV KING RN - 09/11/2019 6:28 EST Vishnu Scale Vishnu Sensory Perception : No impairment Vishnu Moisture : Rarely moist Vishnu Activity : Walks frequently Vishnu Mobility : No limitation Vishnu Nutrition : Excellent Vishnu Friction and Shear : No apparent problem Vishnu Score : 23 AV KING RN - 09/11/2019 6:28 EST Pain Assessment Pain Assessment : Initial assessment Pain Scale Used : 0-10 Scale AV KING RN - 09/11/2019 6:28 EST Fall Risk Scales ABCs Fall Injury Risk Identification : Age ABC Fall Injury Risk : Moderate to high injury risk DEVINE Hx Falls Immediate/Within 3 Months : No Devine Secondary Diagnosis : No DEVINE Use of Ambulatory Aid : None DEVINE IV Therapy or IV Access : Yes Devine Gait/Transferring : Normal, bedrest, immobile Devine Mental Status : Oriented to own ability Devine Fall Risk Score : 20 DEVINE Fall Scale Risk Level : 0-24 Low Risk Ferguson Fall Interventions : Adequate lighting, Assistive devices within reach, Bed in low position, Personal items within reach, Reinforced to call for assistance before getting out of bed AV KING RN - 09/11/2019 6:28 EST Valuables and Belongings Valuables and Belongings : Clothing Clothing : Common streetwear Clothing Disposition : With family AV KING RN - 09/11/2019 6:28 EST Pain Scale Intensity : 0 AV KING RN - 09/11/2019 6:28 EST Image 4 - Images currently included in the form version of this document have not been included in the text rendition version of the form. Electronically signed by Carla Shelton Conversion Firmware Software Verification Engineer Cerner at 01/26/2023 8:58 PM CDT documented in this encounter Plan of Treatment Not on file documented as of this encounter Visit Diagnoses Not on filedocumented in this encounter
--- OUTSIDE RECORDS SUMMARY | 2025-03-28 10:42 | XMS_ITS | Encounter Summary ---
Author Organization [employer] [employer] Address [address] [place] [address] Care Team Providers Care Nuclear Engineering Technician Name Role Phone Unavailable Primary Care Provider Unavailabl e Encounter Details Date Type Department Care Team (Late st Contact Info) Description 06/03/2021 Transcribed Document [facility] [place] [facility] [place] [address] ProviderPrasanth MD [address] [place] [id number] Social History Tobacco Use Types Packs/Day Years Used Date Smoking Tobacco: Never Assessed Sex and Gender Information Value Date Recorded Sex Assigned at Not on file Legal Sex Male 6:49 PM CDT Gender Identity Not on file Sexual Orientation Not on file documented as of this encounter Miscellaneous Notes * Cerner Conversion Note - Historical ProviderMD - 06/03/2021 11:55 AM CDT Discharge Summary, PT Entered On: 06/03/2021 13:03 EDT Performed On: 06/03/2021 11:55 EDT by TATE CRESPO PT Student Discharge Summary Reason for Discharge : Other: Pt at [facility]. Discharged to, Therapy : Other: Pt staying in hospital for continued medical workup. TATE CRESPO, PT Student - 06/03/2021 13:01 EDT Discharge Summary Comment, PT : As of 06/03/2021, due to pt's strength and complete independence with functional activties, pt does not require skilled PT services at this time. Pt had a slight limp on L leg with ambulation but stated this was his normal baseline. I recommend discharge home when medically appropriate. PT has reviewed and agrees. CAYLA FINN, PT - 06/03/2021 13:33 EDT documented in this encounter Plan of Treatment Not on file documented as of this encounter Visit Diagnoses Not on filedocumented in this encounter
--- OUTSIDE RECORDS SUMMARY | 2025-03-28 10:42 | XMS_ITS | Encounter Summary ---
Author Organization [employer] Address [address] [place] [address] Care Team Providers Care Business Solutions Analyst Name Role Phone Unavailable Primary Care Provider Unavailabl e Encounter Details Date Type Department Care Team (Late st Contact Info) Description 06/02/2021 Transcribed Document [facility] [place] Medicine [facility] [place] [address] ProviderPrasanth MD [address] [place] [id number] Social History Tobacco Use Types Packs/Day Years Used Date Smoking Tobacco: Never Assessed Sex and Gender Information Value Date Recorded Sex Assigned at Not on file Legal Sex Male 6:49 PM CDT Gender Identity Not on file Sexual Orientation Not on file documented as of this encounter Miscellaneous Notes * Cerner Conversion Note - Prasanth ProviderMD - 06/02/2021 12:40 PM CDT Spiritual Care Assessment Entered On: 06/02/2021 20:53 EDT Performed On: 06/02/2021 12:40 EDT by Dean Palmer Chaplain-Non Cert General Information Initial Visit : Yes Referred by : Physician Ministry Provided to : Patient Spiritual/Emotional Acuity : No Concern Spiritual Framework : Not integrated, provides little strength/resource Active in a Holiness/Kirsten Group : No Nondenominational Preference : No jainism Dean Palmer Chaplain-Non Cert - 06/02/2021 20:52 EDT Spiritual Assessment Patient's Community/Relationship : Strength in patient's life Supportive Nondenominational Community : No Spirital Assessment Comment/Summary Report : SPIRITUAL ASSESSMENT COMMENT/SUMMARY No qualifying data available. Dean Palmer Chaplain-Non Cert - 06/02/2021 20:52 EDT Interventions Advance Directive Information Provided : No Emotional Support : Empathic/Engaged listening, Established trust, Information provided Spiritual and Nondenominational : Verify kirsten group connection, Spiritual/Nondenominational life explored Dean Palmer, Kettle Girl-Non Cert - 06/02/2021 20:52 EDT Electronically signed by Nikita, [facility] Conversion Stove Mounter Cerner at 01/26/2023 9:10 PM CDT documented in this encounter Plan of Treatment Not on file documented as of this encounter Visit Diagnoses Not on filedocumented in this encounter
--- OUTSIDE RECORDS SUMMARY | 2025-03-28 10:42 | XMS_ITS | Encounter Summary ---
Author Organization [employer] Address [address] [place] [address] Care Team Providers Care Steel Rod Buster Name Role Phone Unavailable Primary Care Provider Unavailabl e Encounter Details Date Type Department Care Team (Late st Contact Info) Description 09/11/2019 Transcribed Document [facility] [place] Family Medicine [address] [place] [address] ProviderPrasanth MD [address] [place] [id number] Social History Tobacco Use Types Packs/Day Years Used Date Smoking Tobacco: Never Assessed Sex and Gender Information Value Date Recorded Sex Assigned at Not on file Legal Sex Male 6:49 PM CDT Gender Identity Not on file Sexual Orientation Not on file documented as of this encounter Miscellaneous Notes * Cerner Conversion Note - Historical ProviderMD - 09/11/2019 11:52 AM TOOL RADIAL DRILL PRESS SET UP OPERATOR Nursing Discharge Summary Entered On: 09/11/2019 11:52 EST Performed On: 09/11/2019 11:52 EST by AV KING RN Discharge Documentation Discharge Date/Time : 09/11/2019 12:15 EST Transporter Signature : AV KING RN TOWLES, TAMMY L, RN - 09/11/2019 12:17 EST Patient Disposition, General : Discharge Discharge To : Home with ambulatory/outpatient follow-up Mode Of Departure, General Discharge : Private vehicle Accompanied By, Discharge : Spouse IV Discontinued : Yes Personal Belongings With Patient : Yes Discharge Instructions Reviewed With, Opportunity For Questions Given : Patient, Spouse Patient Education Completed : Yes Teaching Method : Explanation Teaching Evaluation : Returns demonstration, Verbalizes understanding AV KING RN - 09/11/2019 11:52 EST Electronically signed by Nikita [facility] Conversion Paperboard Machine Operator Cerner at 01/26/2023 8:50 PM CDT documented in this encounter Plan of Treatment Not on file documented as of this encounter Visit Diagnoses Not on filedocumented in this encounter
--- OUTSIDE RECORDS SUMMARY | 2025-03-28 10:42 | XMS_ITS | Encounter Summary ---
Author Organization [employer] Address [address] [place] [address] Care Team Providers Care Agriculture Technician Name Role Phone Unavailable Primary Care Provider Unavailabl e Encounter Details Date Type Department Care Team (Late st Contact Info) Description 09/11/2019 Transcribed Document [facility] [place] Family Medicine [address] [place] [address] ProviderPrasanth [place] [address] Social History Tobacco Use Types Packs/Day Years Used Date Smoking Tobacco: Never Assessed Sex and Gender Information Value Date Recorded Sex Assigned at Not on file Legal Sex Male 6:49 PM CDT Gender Identity Not on file Sexual Orientation Not on file documented as of this encounter Miscellaneous Notes * Cerner Conversion Note - Historical ProviderMD - 09/11/2019 9:20 AM SILVER BUFFER Event Note Entered On: 09/11/2019 9:24 EST Performed On: 09/11/2019 9:20 EST by AV KING RN Event Note Event Date/Time : 09/11/2019 9:00 EST Description of Event : Patient returned from medical laboratory technical officer with right groin mynx in palce, no sign of hematoma or bleeding. Patient vitals are with in normal limits. Dr Easley at the bedside explaining to patient the need for Dr Kyle to be consulted. Per Dr Easley patient to not be discharged until seeing Dr Kyle. Will continue to monitor groin site. AV KING RN - 09/11/2019 9:20 EST Electronically signed by Nikita [facility] Conversion Civil Estimator Cerner at 01/26/2023 8:49 PM CDT documented in this encounter Plan of Treatment Not on file documented as of this encounter Visit Diagnoses Not on filedocumented in this encounter
--- OUTSIDE RECORDS SUMMARY | 2025-03-28 10:42 | XMS_ITS | Encounter Summary ---
Author Organization [employer] Address [address] [place] [address] Care Team Providers Care Casino Controller Name Role Phone Unavailable Primary Care Provider Unavailabl e Encounter Details Date Type Department Care Team (Late st Contact Info) Description 06/02/2021 Transcribed Document [facility] [place] [facility] [place] [address] ProviderPrasanth MD [address] [place] [address] Social History Tobacco Use Types Packs/Day Years Used Date Smoking Tobacco: Never Assessed Sex and Gender Information Value Date Recorded Sex Assigned at Not on file Legal Sex Male 6:49 PM CDT Gender Identity Not on file Sexual Orientation Not on file documented as of this encounter Miscellaneous Notes * Cerner Conversion Note - Prasanth ProviderMD - 06/02/2021 12:40 PM CDT Nutrition Assessment Entered On: 06/03/2021 8:58 EDT Performed On: 06/03/2021 8:58 EDT by Nanette Moreno Diet Technician Nutrition Assessment Nutrition Assessment Reason : Automatic referral Nanette Moreno Diet Technician - 06/03/2021 8:58 EDT Nutrition Recommendations Dietitian Recommendations : 06/03: Consult for stroke pp. 85yo M admitted for elevated troponin, NSTEMI, TIA d/t embolism. Pt on cardiac diet, 100% x1 meal documented. Pt reports that his appetite is normal, estimates 60% of all meals. Pt mentions he's not a big eater in a normal setting. No UWL or skin breakdown reported. Written and verbal cardiac diet education provided to pt. Pt receptive of information. No nutrition dx at this time. educational technologist to rescreen in 7-10 days. Nanette Moreno Diet Technician - 06/03/2021 11:22 EDT documented in this encounter Plan of Treatment Not on file documented as of this encounter Visit Diagnoses Not on filedocumented in this encounter
--- OUTSIDE RECORDS SUMMARY | 2025-03-28 10:42 | XMS_ITS | Encounter Summary ---
Author Organization [employer] Address [address] [place] [address] Care Team Providers Care Process Manager Name Role Phone Unavailable Primary Care Provider Unavailabl e Encounter Details Date Type Department Care Team (Late st Contact Info) Description 09/11/2019 Transcribed Document [facility] [place] [address] [place] [address] ProviderPrasanth MD [facility] [place] [address] Social History Tobacco Use Types Packs/Day Years Used Date Smoking Tobacco: Never Assessed Sex and Gender Information Value Date Recorded Sex Assigned at Not on file Legal Sex Male 6:49 PM CDT Gender Identity Not on file Sexual Orientation Not on file documented as of this encounter Miscellaneous Notes * Cerner Conversion Note - Historical ProviderMD - 09/11/2019 11:21 AM DIGITAL MARKETING EXECUTIVE Event Note Entered On: 09/11/2019 11:22 EST Performed On: 09/11/2019 11:21 EST by AV KING RN Event Note Event Date/Time : 09/11/2019 11:05 EST Description of Event : Patient has completed appropriate bed rest of 2 hours, he has walked and ready for discharge. Awaiting Dr Kyle to [facility] on Patient AV KING RN - 09/11/2019 11:21 EST Electronically signed by Nikita [facility] Conversion Freezer Assistant Cerner at 01/26/2023 8:57 PM CDT documented in this encounter Plan of Treatment Not on file documented as of this encounter Visit Diagnoses Not on filedocumented in this encounter
--- OUTSIDE RECORDS SUMMARY | 2025-03-28 10:42 | XMS_ITS | Encounter Summary ---
Author Organization [employer] Address [address] [place] [address] Care Team Providers Care Hydroelectric Plant Technician Name Role Phone Unavailable Primary Care Provider Unavailabl e Encounter Details Date Type Department Care Team (Late st Contact Info) Description 06/03/2021 Transcribed Document [facility] [place] [facility] [place] [address] ProviderPrasanth MD [address] [place] [id number] Social History Tobacco Use Types Packs/Day Years Used Date Smoking Tobacco: Never Assessed Sex and Gender Information Value Date Recorded Sex Assigned at Not on file Legal Sex Male 6:49 PM CDT Gender Identity Not on file Sexual Orientation Not on file documented as of this encounter Miscellaneous Notes * Cerner Conversion Note - Prasanth ProviderMD - 06/03/2021 3:57 PM CDT Initial Discharge Planning Entered On: 06/03/2021 16:06 EDT Performed On: 06/03/2021 15:57 EDT by EMILIE MOON RN-Shift Foreman Initial Assessment I Previously Documented Living Environment : No qualifying data available. Living Situation : Home Patient Lives With : Spouse Employment/Vocation : Retired Emergency Contact #1 : Rosa Elena Bustamante Emergency Contact #1 Phone Number : [phone] Emergency Contact #1 Relationship : Emergency Contact #2 : na Emergency Contact #2 Phone Number : na Emergency Contact #2 Relationship : na Enter Doctors Name : Nicole Martinez Does Patient have PCP Listed? : Yes Medical Durable Power of Manager International Name : Legal Guardian : No EMILIE MOON RN-Shift Foreman - 06/03/2021 15:57 EDT Initial Assessment II Sensory and Motor Deficits : None, Weakness Current Home Treatments and Equipment : None EMILIE MOON RN-Shift Foreman - 06/03/2021 15:57 EDT Discharge Needs I Anticipated Discharge Date : 06/06/2021 EDT Anticipated Discharge To, CM : Home with family care, Home with home health Current Home Treatment/Equipment : Current Home Treatment/Equipment No qualifying data available. Documentation Status Complete : Yes EMILIE MOON RN-Shift Foreman - 06/03/2021 15:57 EDT Discharge Needs II Professional Skilled Services : Professional Skilled Services No qualifying data available. 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 Since that time intermittent episodes of atypical chest pain. Consults: Cardiology, Neurology Patient lives in [place] with his Rosa Elena [phone]. His PCP is Dr. Martinez. Patient is ADL independent, drives and very active at home. No prior rehab stay, home health services, home oxygen or DME. will transport at discharge. DCP: Anticipate patient will discharge home with . CM will continue to follow for any needed referrals. EMILIE MOON RN-Shift Foreman - 06/03/2021 15:57 EDT documented in this encounter Plan of Treatment Not on file documented as of this encounter Visit Diagnoses Not on filedocumented in this encounter
--- OUTSIDE RECORDS SUMMARY | 2025-03-28 10:42 | XMS_ITS | Encounter Summary ---
Author Organization [employer] Address [address] [place] [address] Care Team Providers Care Sales And Leasing Consultant Name Role Phone Unavailable Primary Care Provider Unavailabl e Encounter Details Date Type Department Care Team (Late st Contact Info) Description 09/11/2019 Transcribed Document [facility] [place] Family Medicine [address] [place] [address] ProviderPrasanth MD [place] [address] Social History Tobacco Use Types Packs/Day Years Used Date Smoking Tobacco: Never Assessed Sex and Gender Information Value Date Recorded Sex Assigned at Not on file Legal Sex Male 6:49 PM CDT Gender Identity Not on file Sexual Orientation Not on file documented as of this encounter Miscellaneous Notes * Cerner Conversion Note - Historical ProviderMD - 09/11/2019 12:14 PM SOCIAL MEDIA JOB TITLES Event Note Entered On: 09/11/2019 12:17 EST Performed On: 09/11/2019 12:14 EST by AV KING RN Event Note Event Date/Time : 09/11/2019 12:00 EST Description of Event : Dr Kyle at the bedside, recomends patient have the TAVR procedure. Dr Hurst off ice to call patient with further information. Patient also given discharge instructions on groin management etc. Patient and verbalize understanding. Patient left with stable vitals. Dr Easley aware of patients heart rate running in the 40 s. AV KING RN - 09/11/2019 12:14 EST Electronically signed by Nikita [facility] Conversion Director Of Medical Services Richard at 01/26/2023 9:01 PM CDT documented in this encounter Plan of Treatment Not on file documented as of this encounter Visit Diagnoses Not on filedocumented in this encounter
--- OUTSIDE RECORDS SUMMARY | 2025-03-28 10:42 | XMS_ITS | Encounter Summary ---
Author Organization [employer] Address [address] [place] [address] Care Team Providers Care Track Mechanic Name Role Phone Unavailable Primary Care Provider Unavailabl e Encounter Details Date Type Department Care Team (Late st Contact Info) Description 10/30/2019 Transcribed Document [facility] [place] [address] [place] [address] ProviderPrasanth MD [facility] [place], [place] [address]191 Social History Tobacco Use Types Packs/Day Years Used Date Smoking Tobacco: Never Assessed Sex and Gender Information Value Date Recorded Sex Assigned at Not on file Legal Sex Male 6:49 PM CDT Gender Identity Not on file Sexual Orientation Not on file documented as of this encounter Miscellaneous Notes * Cerner Conversion Note - Historical ProviderMD - 10/30/2019 12:20 PM JEWEL BEARING MAKER Stroke/Warfarin Instructions Entered On: 10/30/2019 12:20 EST Performed On: 10/30/2019 12:20 EST by Jason Thompson, RN Stroke/Warfarin Instructions Stroke/TIA Discharge Ins : N/A Warfarin Discharge Ins : N/A Jason Thompson RN - 10/30/2019 12:20 EST Electronically signed by Nikita [facility] Conversion Senior Electrical Controls Engineer Richard at 01/26/2023 9:10 PM CDT documented in this encounter Plan of Treatment Not on file documented as of this encounter Visit Diagnoses Not on filedocumented in this encounter
--- OUTSIDE RECORDS SUMMARY | 2025-03-28 10:42 | XMS_ITS | Encounter Summary ---
Author Organization [employer] Address [address] [place] [address] Care Team Providers Care Marketing Producer Name Role Phone Unavailable Primary Care Provider Unavailabl e Encounter Details Date Type Department Care Team (Late st Contact Info) Description 11/14/2018 Transcribed Document [facility] [place] [facility] [address] ProviderPrasanth MD [address] [place] [address] [id number] Social History Tobacco Use Types Packs/Day Years Used Date Smoking Tobacco: Never Assessed Sex and Gender Information Value Date Recorded Sex Assigned at Not on file Legal Sex Male 6:49 PM CDT Gender Identity Not on file Sexual Orientation Not on file documented as of this encounter Miscellaneous Notes * Cerner Conversion Note - Prasanth ProviderMD - 11/14/2018 8:31 AM MIX CHEMIST DATE OF STUDY: 11/14/2018 ELECTROPHYSIOLOGY RADIOFREQUENCY ABLATION REPORT PREOPERATIVE DIAGNOSIS: Symptomatic atrial flutter. PROCEDURE PERFORMED: Electrophysiology evaluation and radiofrequency ablation. DESCRIPTION OF PROCEDURE: The patient was brought to the EP laboratory in atrial flutter. After the aseptic draping of the femoral regions, the right femoral triangle was infiltrated with 1% lidocaine locally. A 6, 7, and 8-Palestinian Daig septal sheaths were introduced into the right femoral vein. A 7-Palestinian Duo-Decapolar catheter was advanced along the lateral right atrial wall and into the coronary sinus. A 6-Palestinian Quadripolar catheter was placed at the atrial septum. This catheter was later used for pacing. Electrogram analysis demonstrated a counter-clockwise atrial flutter at a cycle length of 200 msec. Next, using the Carto three-dimensional mapping system in conjunction with a [employer] Dubois F Curve irrigated catheter, radiofrequency energy at 40 zheng was delivered across the tricuspid valve isthmus with dissolution of local atrial electrograms and ultimate latter-day of normal sinus rhythm. Bidirectional block across the isthmus was proven with a transisthmus delay of between 170-190 msec. Next, atrial and ventricular pacing were performed. At the completion of procedure, all catheters were removed and hemostasis was achieved by manual compression. The patient tolerated procedure well and left the EP laboratory in a stable condition. COMPLICATIONS: None. ESTIMATED BLOOD LOSS: Less than 20 mL. RADIATION EXPOSURE: 106 mGy. MONITORED CONSCIOUS SEDATION: 30 minutes. INTERPRETATION OF ELECTROPHYSIOLOGY DATA: 1. Baseline rhythm is counter-clockwise atrial flutter at a cycle length of 200 msec. 2. After completion of ablation, normal sinus rhythm is restored. The AH interval was 105 msec with an HV interval of 44 msec. Decremental atrial pacing demonstrates the AV block cycle length to be 320 msec. The VA block cycle length was assessed by ventricular pacing and was found to be greater than 600 msec. IMPRESSION: 1. Counter-clockwise typical atrial flutter. 2. Successful tricuspid valve isthmus ablation with latter-day of normal sinus rhythm and development of bidirectional isthmus block. RECOMMENDATIONS: Routine followup. Dionicio Soliman M.D. Dict: 11/14/2018 08:31:48 Trans: 11/14/2018 10:53:06 CC1: Dionicio Soliman M.D. documented in this encounter Plan of Treatment Not on file documented as of this encounter Visit Diagnoses Not on filedocumented in this encounter
--- OUTSIDE RECORDS SUMMARY | 2025-03-28 10:42 | XMS_ITS | Encounter Summary ---
Author Organization [employer] In [employer] Address [address] [place] [address] Care Team Providers Care Traveling Engineer Name Role Phone Unavailable Primary Care Provider Unavailabl e Encounter Details Date Type Department Care Team (Late st Contact Info) Description 06/02/2021 Transcribed Document [facility] [place] [facility] [place] [address] ProviderPrasanth MD [address] [place] [address] [id number] Social History Tobacco Use Types Packs/Day Years Used Date Smoking Tobacco: Never Assessed Sex and Gender Information Value Date Recorded Sex Assigned at Not on file Legal Sex Male 6:49 PM CDT Gender Identity Not on file Sexual Orientation Not on file documented as of this encounter Miscellaneous Notes * Cerner Conversion Note - Historical ProviderMD - 06/02/2021 9:50 AM CDT Broset Violence Assessment Entered On: 06/02/2021 11:32 EDT Performed On: 06/02/2021 11:32 EDT by SULAIMAN FAULKNER RN Broset Violence Assessment Broset Violence Checklist of Symptoms : None Broset Violence Symptoms Subtotal : 0 Broset Violence Symptoms Indicator : Low risk (0) SULAIMAN FAULKNER RN - 06/02/2021 11:32 EDT Electronically signed by Nikita [facility] Conversion Bread Stacker Cerner at 01/26/2023 9:10 PM CDT documented in this encounter Plan of Treatment Not on file documented as of this encounter Visit Diagnoses Not on filedocumented in this encounter
--- OUTSIDE RECORDS SUMMARY | 2025-03-28 10:42 | XMS_ITS | Encounter Summary ---
Author Organization [employer] In [employer] Address [address] [place] [address] Care Team Providers Care Limehouse Worker Name Role Phone Unavailable Primary Care Provider Unavailabl e Encounter Details Date Type Department Care Team (Late st Contact Info) Description 11/04/2019 Transcribed Document [facility] [place] Family Medicine [address] [place] [address] ProviderPrasanth MD [address] [place] [address] Social History Tobacco Use Types Packs/Day Years Used Date Smoking Tobacco: Never Assessed Sex and Gender Information Value Date Recorded Sex Assigned at Not on file Legal Sex Male 6:49 PM CDT Gender Identity Not on file Sexual Orientation Not on file documented as of this encounter Miscellaneous Notes * Cerner Conversion Note - Historical ProviderMD - 11/04/2019 7:33 PM PAINT DEPARTMENT SUPERVISOR Crane Suicide Severity Rating Scale (C-SSRS) Entered On: 11/04/2019 21:44 EST Performed On: 11/04/2019 21:37 EST by MARIA TERESA KAT RN Crane Suicide Severity Rating Scale (C-SSRS) CSSRS Past Month Wish to be : No CSSRS Past Month Suicidal Thoughts : No CSSRS Lifetime Suicide Behavior : No Suicide Severity Rating Score : 0 Suicide Severity Rating : No Additional Care Required at this time MARIA TERESA KAT RN - 11/04/2019 21:37 EST Electronically signed by Nikita [facility] Conversion Wheel And Pinion Inspector Cerner at 01/26/2023 9:02 PM CDT documented in this encounter Plan of Treatment Not on file documented as of this encounter Visit Diagnoses Not on filedocumented in this encounter
--- OUTSIDE RECORDS SUMMARY | 2025-03-28 10:42 | XMS_ITS | Encounter Summary ---
Author Organization [employer] In [employer] Address [address] [place] [address] Care Team Providers Care Nodulizer Name Role Phone Unavailable Primary Care Provider Unavailabl e Encounter Details Date Type Department Care Team (Late st Contact Info) Description 08/04/2020 Transcribed Document [facility] [place] [address] [place] [address] ProviderPrasanth MD [facility] [place] [address] Social History Tobacco Use Types Packs/Day Years Used Date Smoking Tobacco: Never Assessed Sex and Gender Information Value Date Recorded Sex Assigned at Not on file Legal Sex Male 6:49 PM CDT Gender Identity Not on file Sexual Orientation Not on file documented as of this encounter Miscellaneous Notes * Cerner Conversion Note - Historical ProviderMD - 08/04/2020 4:00 PM CDT Event Note Entered On: 08/04/2020 17:10 EDT Performed On: 08/04/2020 16:00 EDT by WALTER POWELL RN Event Note Event Date/Time : 08/04/2020 16:00 EDT Event Location : Assigned room Description of Event : No changes, continues pain free. SR heart monitor. WALTER POWELL RN - 08/04/2020 17:01 EDT documented in this encounter Plan of Treatment Not on file documented as of this encounter Visit Diagnoses Not on filedocumented in this encounter
--- OUTSIDE RECORDS SUMMARY | 2025-03-28 10:42 | XMS_ITS | Encounter Summary ---
Author Organization [employer] Address [address] [place] [address] Care Team Providers Care Entertainment Manager Name Role Phone Unavailable Primary Care Provider Unavailabl e Encounter Details Date Type Department Care Team (Late st Contact Info) Description 10/30/2019 Transcribed Document [facility] [place] Family Medicine [address] [place] [address] ProviderrPasanth MD [address] [place], [place] [id number] Social History Tobacco Use Types Packs/Day Years Used Date Smoking Tobacco: Never Assessed Sex and Gender Information Value Date Recorded Sex Assigned at Not on file Legal Sex Male 6:49 PM CDT Gender Identity Not on file Sexual Orientation Not on file documented as of this encounter Miscellaneous Notes * Cerner Conversion Note - Historical ProviderMD - 10/30/2019 8:23 AM FURNITURE REPAIRER UM Authorization Entered On: 10/30/2019 8:23 EST Performed On: 10/30/2019 8:23 EST by ENDER LOMBARDO RN Primary Insurance Authorization Authorization and Policy Numbers : Insurance 1 Health Plan: MEDICARE Policy Number: [id number] Authorization Number: Insurance 2 Health Plan: AARP N Policy Number: [id number] Authorization Number: Insurance Primary Name : MEDICARE Policy Number: [id number] Historical Authorization Comments-Primary : No Authorization Comments Found ENDER LOMBARDO RN - 10/30/2019 8:23 EST documented in this encounter Plan of Treatment Not on file documented as of this encounter Visit Diagnoses Not on filedocumented in this encounter
--- OUTSIDE RECORDS SUMMARY | 2025-03-28 10:42 | XMS_ITS | Encounter Summary ---
Author Organization [employer] Address [address] [place] [address] Care Team Providers Care Manager Housekeeping Name Role Phone Unavailable Primary Care Provider Unavailabl e Encounter Details Date Type Department Care Team (Late st Contact Info) Description 10/30/2019 Transcribed Document [facility] Cardiology [address] [place] [phone] [place] [address] [place] [address] [address] [place] [address] Social History Tobacco Use Types Packs/Day Years Used Date Smoking Tobacco: Never Assessed Sex and Gender Information Value Date Recorded Sex Assigned at Not on file Legal Sex Male 6:49 PM CDT Gender Identity Not on file Sexual Orientation Not on file documented as of this encounter Miscellaneous Notes * Cerner Conversion Note - Lee Ann Quinonez MD - 10/30/2019 8:02 AM EST Patient: SHIRA GARZA HORACIO Age: 84 years Sex: Male : 1935 Associated Diagnoses: None Author: LEE ANN QUINONEZ MD-CAR BASIC Monologist: Dr. Easley Subjective Post TAVR, doing well, ready for discharge home today. Health Status Current medications: (Selected) Inpatient Medications Ordered Ambien: 5 mg, Oral, At Bedtime, PRN: Sleep Artificial Tears ophthalmic solution: 1 Drop, Eyes Both, TID, PRN: Dry Eyes [place] Saline 0.65% nasal solution: 1 [place], Nasal, Q4H, PRN: Congestion Dulcolax Laxative: 10 mg, Rectal, Daily, PRN: Constipation Imdur: 30 mg, Oral, Daily Lactated Ringers Injection intravenous solution 1,000 mL: 20 mL/Hr, IntraVENous Milk of Magnesia 8% oral suspension: 30 mL, Oral, Daily, PRN: Constipation NORepinephrine injection 4 mg + NaCl 0.9% for drip 250 mL: Titrate, IntraVENous Nitrostat: 0.4 mg, SubLINgual, Q5Min, PRN: Chest Pain Normal Saline Flush: 10 mL, IV Push, Q12H Plavix: 75 mg, Oral, Daily Senokot S: 1 Tab, Oral, BID Sodium Chloride 0.9% intravenous solution 500 mL: 30 mL/Hr, IntraVENous Zofran: 4 mg, IV Push, Q6H, PRN: Nausea/Vomiting aspirin: 81 mg, Oral, Daily atorvastatin: 20 mg, Oral, Weekly hydrALAZINE: 10 mg, IV Push, Q30Min, PRN: Hypertension lidocaine 1% injectable solution: 0.5 mL, IntraDermal, 1-Time, PRN: Other (See Comment) lisinopril: 20 mg, Oral, Daily multivitamin: 1 Tab, Oral, Daily, Home Medications (6) Active aspirin 81 mg oral tablet 81 mg = 1 Tab, Oral, Daily atorvastatin 20 mg, Oral, Weekly isosorbide mononitrate 30 mg oral tablet, extended release 30 mg = 1 Tab, Oral, QAM lisinopril 20 mg oral tablet 20 mg = 1 Tab, Oral, Daily multivitamin 1 Tab, Oral, Daily nitroglycerin 0.4 mg, SubLINgual, Q5Min Problem list: Active Problems (11) Aortic stenosis At risk for sleep apnea Atrial flutter Benign neoplastic disease CAD (coronary artery disease) Hyperlipidemia Hypertension Renal calculus Right bundle branch block Shortness of breath Wears glasses Objective Intake and Output 24 hour output: Total 120 ml VS/Measurements Vitals Signs (last 24 hrs) Last Charted Minimum Maximum Temp 97.5 (OCT 30 03:15) L 96.5 (OCT 29 11:00) 97.1 (OCT 29 11:45) Apical HR 63 (OCT 30 05:29) 61 (OCT 29 11:01) 63 (OCT 30 05:29) Mon HR 83 (OCT 30 03:15) 55 (OCT 29 09:45) 83 (OCT 30 03:15) Resp Rate 18 (OCT 30 03:15) 16 (OCT 29 23:18) 18 (OCT 29 15:00) SBP H 152 (OCT 30 03:15) 116 (OCT 29 15:00) H 170 (OCT 29 11:00) DBP 77 (OCT 30 03:15) 69 (OCT 29 12:00) 87 (OCT 29 11:00) MAP 99 (OCT 30 03:15) 79 (OCT 29 13:00) 121 (OCT 29 11:00) SpO2 L 92 (OCT 30:15) L 92 (OCT 30:15) 100 (OCT 29 12:00) General: Alert and oriented, No acute distress. Eye: Pupils are equal, round and reactive to light, Normal conjunctiva, Vision unchanged. HENT: Normocephalic, Oral mucosa is moist. Neck: Supple, Non-tender, No carotid bruit, No jugular venous distention. Respiratory: Lungs are clear to auscultation, Respirations are non-labored, Breath sounds are equal, Symmetrical chest wall expansion. Cardiovascular: Normal rate, Regular rhythm, No murmur, Good pulses equal in all extremities. Gastrointestinal: Soft, Non-tender, Non-distended, Normal bowel sounds. Genitourinary: Exam deferred. Musculoskeletal: Normal range of motion, Normal strength, No deformity. Integumentary: Warm, Dry, [place], No rash. Neurologic: Alert, Oriented, No focal deficits. Psychiatric: Cooperative, Appropriate mood & affect. Results Review OCT 30 03:51 136 107 21 / H 117 3.7 26 1.20 \ Impression and Plan IMPRESSION: Severe aortic Stenosis s/p TAVR 10/29/2019 CAD h.o CABG h.o Atrial flutter s/p Ablation / Dr. Soliman HTN HLD PLAN: DC home today. I reviewed his echo earlier today and it appears to be within normal limits with the valve functioning normally and no evidence of significant paravalvular leak Follow with Dr. Quinonez in one month. documented in this encounter Plan of Treatment Not on file documented as of this encounter Visit Diagnoses Not on filedocumented in this encounter
--- OUTSIDE RECORDS SUMMARY | 2025-03-28 10:42 | XMS_ITS | Encounter Summary ---
Author Organization [email or web address] Address [address] [place] [address] Care Team Providers Care Manager Wind Name Role Phone Unavailable Primary Care Provider Unavailabl e Encounter Details Date Type Department Care Team (Late st Contact Info) Description 09/11/2019 Transcribed Document [facility] [place] Family Medicine [address] [place] [address] ProviderPrasanth MD [facility] [address] Social History Tobacco Use Types Packs/Day Years Used Date Smoking Tobacco: Never Assessed Sex and Gender Information Value Date Recorded Sex Assigned at Not on file Legal Sex Male 6:49 PM CDT Gender Identity Not on file Sexual Orientation Not on file documented as of this encounter Miscellaneous Notes * Cerner Conversion Note - Prasanth Sanchez MD - 09/11/2019 11:49 AM PAPER REELER Patient Education Materials Follows: Groin Site Care [...] Document Reviewed: 10/29/2011 ExitCare? Patient Information ?2014 [employer]. Moderate Conscious Sedation, Adult, Care After These [...] you are awake and alert. ??? Take teez-tdk-irydiok and prescription medicines only as told by [...] 07/17/2014 Document Revised: 02/28/2017 Document Reviewed: 01/15/2017 [employer] Interactive Patient Education ? 2019 [employer] documented in this encounter Plan of Treatment Not on file documented as of this encounter Visit Diagnoses Not on filedocumented in this encounter
--- OUTSIDE RECORDS SUMMARY | 2025-03-28 10:42 | XMS_ITS | Encounter Summary ---
Author Organization [employer] Address [address] [place] [address] Care Team Providers Care Merchandise Collector Name Role Phone Unavailable Primary Care Provider Unavailabl e Encounter Details Date Type Department Care Team (Late st Contact Info) Description 09/11/2019 Transcribed Document [facility] [place] [facility] [place] [address] ProviderPrasanth MD [address] [place] [address] [id number] Social History Tobacco Use Types Packs/Day Years Used Date Smoking Tobacco: Never Assessed Sex and Gender Information Value Date Recorded Sex Assigned at Not on file Legal Sex Male 6:49 PM CDT Gender Identity Not on file Sexual Orientation Not on file documented as of this encounter Miscellaneous Notes * Cerner Conversion Note - Prasanth ProviderMD - 09/11/2019 8:57 AM BRIM STITCHER DATE OF SERVICE: 09/11/2019 PROCEDURE: Left heart catheterization, ascending aortography, selective coronary angiography, selective bypass angiography. INDICATION: Class III dyspnea and angina with severe aortic stenosis by echo. INDICATION: A pleasant white male, history of coronary artery bypass surgery in 2007 consisting of sequential mammary graft to second diagonal and LAD, sequential saphenous vein graft to the first diagonal and the second marginal and saphenous vein graft to the posterior descending. The patient has been followed with aortic stenosis and now has developed class III symptoms of exertional dyspnea and angina. Echocardiogram was consistent with severe aortic stenosis with severe ventricular hypertrophy. PROCEDURE: RFA, 5-Barbadian sheath, 5-Barbadian Denny multipack, Mynx assisted manual compression hemostasis. No adverse events. FINDINGS: Aortic pressure was 130/70. The valve was not crossed. The pressure contour of the aorta demonstrated significant delayed upstroke consistent with severe aortic stenosis. ANGIOGRAPHY: Ejection fraction normal by echocardiogram. The ascending aortography demonstrated dilation of the ascending aorta with tortuosity of the subclavian arteries. [place] CIRCULATION: Right coronary artery known to be occluded, not reshot. Left coronary artery, left main is normal. LAD is occluded. The circumflex is patent to distal posterolateral branch. The marginal is occluded. BYPASS CIRCULATION: Sequential mammary to second diagonal, LAD, widely patent with good flow. Sequential saphenous vein graft to first diagonal, second marginal, patent with good flow. Saphenous vein graft to posterior descending aortic branch of the right coronary patent with good flow. IMPRESSION: 1. Severe aortic stenosis. 2. Patency of all bypass grafts. 3. Three-vessel coronary artery disease. RECOMMENDATION: The patient will be evaluated by the cardiac surgeon, Dr. Kyle for AVR. /[id number] MD JOSE ANTONIO Moore/AQ / JCAnnelise / MODL /[id number] documented in this encounter Plan of Treatment Not on file documented as of this encounter Visit Diagnoses Not on filedocumented in this encounter
--- OUTSIDE RECORDS SUMMARY | 2025-03-28 10:42 | XMS_ITS | Encounter Summary ---
Author Organization [employer] Address [address] [place] [address] Care Team Providers Care Coil Binder Name Role Phone Unavailable Primary Care Provider Unavailabl e Encounter Details Date Type Department Care Team (Late st Contact Info) Description 08/05/2020 Transcribed Document [facility] [place] [address] [place] [address] ProviderPrasanth MD [facility] [place], [place] [id number] Social History Tobacco Use Types Packs/Day Years Used Date Smoking Tobacco: Never Assessed Sex and Gender Information Value Date Recorded Sex Assigned at Not on file Legal Sex Male 6:49 PM CDT Gender Identity Not on file Sexual Orientation Not on file documented as of this encounter Miscellaneous Notes * Cerner Conversion Note - Historical ProviderMD - 08/05/2020 2:00 AM CDT Finish Saw Operator Details Entered On: 08/05/2020 1:07 EDT Performed On: 08/05/2020 2:00 EDT by Tish Calvillo, Rn Order Details Order Detail : N/A Tish Calvillo Rn - 08/05/2020 1:07 EDT documented in this encounter Plan of Treatment Not on file documented as of this encounter Visit Diagnoses Not on filedocumented in this encounter
--- OUTSIDE RECORDS SUMMARY | 2025-03-28 10:42 | XMS_ITS | Encounter Summary ---
Author Organization [employer] Address [address] [place] [address] Care Team Providers Care Sheriffs Detective Name Role Phone Unavailable Primary Care Provider Unavailabl e Encounter Details Date Type Department Care Team (Late st Contact Info) Description 11/04/2019 Transcribed Document [facility] [place] [facility] [place] [address] ProviderPrasanth MD [facility] [place], [place] [id number] Social History Tobacco Use Types Packs/Day Years Used Date Smoking Tobacco: Never Assessed Sex and Gender Information Value Date Recorded Sex Assigned at Not on file Legal Sex Male 6:49 PM CDT Gender Identity Not on file Sexual Orientation Not on file documented as of this encounter Miscellaneous Notes * Cerner Conversion Note - Historical ProviderMD - 11/04/2019 11:45 PM INSTRUMENT REPAIRER HELPER Education-Critical Care Entered On: 11/04/2019 23:45 EST Performed On: 11/04/2019 23:45 EST by DESMOND CRUZ RN Teaching/Learning Assessment Barriers To Learning : None evident Individuals Taught : Patient Readiness to Learn : Cooperative Highest Level of Education : University degree(s) Baseline Knowledge of Topic : Good Readiness to Learn : Explanation Learning Style Preferences Patient : Verbal explanation DESMOND CRUZ RN - 11/04/2019 23:45 EST Education Topics, Critical Care Critical Care Education Grid Activity Limitations/Expectations : Verbalizes understanding Acute Complications : Verbalizes understanding Advance Directives : Verbalizes understanding Allergies : Verbalizes understanding Artificial Airway Care : Verbalizes understanding Blood Transfusion : Verbalizes understanding Cardiac Catheter : Verbalizes understanding Cardiac Rhythm : Verbalizes understanding Cardioversion : Verbalizes understanding Care Delivery Process : Verbalizes understanding Chronic Complications : Verbalizes understanding Circulatory Support : Verbalizes understanding Clinical Status : Verbalizes understanding Communication : Verbalizes understanding CRRT : Verbalizes understanding Diagnostic Results : Verbalizes understanding Discharge Plan : Verbalizes understanding Disease Process : Verbalizes understanding Enteral/Parenteral Nutrition : Verbalizes understanding Equipment/Devices : Verbalizes understanding Fall Prevention Protocol : Verbalizes understanding Hand Hygiene : Verbalizes understanding Hemodialysis : Verbalizes understanding Hygiene : Verbalizes understanding Hypothermia : Verbalizes understanding IABP : Verbalizes understanding Indwelling Catheter : Verbalizes understanding Infection Control : Verbalizes understanding Infection Signs/Symptoms : Verbalizes understanding Invasive Line Care : Verbalizes understanding Isolation Precaution : Verbalizes understanding Laboratory Studies : Verbalizes understanding Mechanical Ventilation : Verbalizes understanding Mechanical Ventilation Weaning : Verbalizes understanding Medication Dosage/Route : Verbalizes understanding Medications : Verbalizes understanding Neuromuscular Blockade : Verbalizes understanding NG/Enteral Tube : Verbalizes understanding Nutrition/Diet : Verbalizes understanding Oral Care : Verbalizes understanding Pacemaker : Verbalizes understanding Pain Management : Verbalizes understanding Pin/Wire Care : Verbalizes understanding Plan of Care : Verbalizes understanding Positioning : Verbalizes understanding Restraints : Verbalizes understanding Resuscitation : Verbalizes understanding Risk Factors : Verbalizes understanding Safety, Fall : Verbalizes understanding Safety, Latex : Verbalizes understanding Sepsis Care : Verbalizes understanding Signs & Symptoms to Report : Verbalizes understanding Skin Care : Verbalizes understanding Smoking Cessation : Verbalizes understanding Suctioning : Verbalizes understanding Surgery : Verbalizes understanding Telemetry Monitoring : Verbalizes understanding Traction : Verbalizes understanding Transfer Preparation : Verbalizes understanding Transfer/Mobility Techniques : Verbalizes understanding Treatments/Procedures/Tests : Verbalizes understanding Tubes/Drains/IV's : Verbalizes understanding Turn/Cough/Deep Breathe : Verbalizes understanding Unit Procedures : Verbalizes understanding Urinary Catheter Care : Verbalizes understanding Visiting Hours : Verbalizes understanding Wound/Incision Care : Verbalizes understanding DESMOND CRUZ RN - 11/04/2019 23:45 EST documented in this encounter Plan of Treatment Not on file documented as of this encounter Visit Diagnoses Not on filedocumented in this encounter
--- OUTSIDE RECORDS SUMMARY | 2025-03-28 10:42 | XMS_ITS | Encounter Summary ---
Author Organization [email or web address] Address [address] [place] [address] Care Team Providers Care Machine Boss Name Role Phone Unavailable Primary Care Provider Unavailabl e Encounter Details Date Type Department Care Team (Late st Contact Info) Description 11/04/2019 Transcribed Document [facility] [place] [facility] [place] [address] ProviderPrasanth MD [facility] [place] [address] Social History Tobacco Use Types Packs/Day Years Used Date Smoking Tobacco: Never Assessed Sex and Gender Information Value Date Recorded Sex Assigned at Not on file Legal Sex Male 6:49 PM CDT Gender Identity Not on file Sexual Orientation Not on file documented as of this encounter Miscellaneous Notes * Cerner Conversion Note - Historical ProviderMD - 11/04/2019 7:33 PM 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 ED Assessment Entered On: 11/04/2019 21:44 EST Performed On: 11/04/2019 20:00 EST by MARIA TERESA KAT THERAPY DIRECTOR Quick Look Assessment Level of Consciousness : Alert, Awake Affect/Behavior : Appropriate, Calm, Cooperative Orientation : Oriented x 4 Skin Color : Other: normal Skin Temperature : Warm Skin Description : Dry MARIA TERESA KAT RN - 11/04/2019 21:37 EST ED General-Functional Assess Information Obtained From : Patient Preferred Communication Mode : Verbal Communication Barrier : None Primary Language : Welsh Any Spiritual/Cultural Needs or Requests : No Currently in Unsafe Situation : No MARIA TERESA KAT RN - 11/04/2019 21:37 EST Social Habits Smoking Status : Former smoker, quit more than 30 days ago Smokeless Tobacco Status : Never Desires Tobacco Cessation Calc : 0 MARIA TERESA KAT RN - 11/04/2019 21:37 EST Social History (As Of: 11/04/2019 21:44:20 EST) Tobacco: Former smoker, quit more than 30 days ago Smoking Status. (Last Updated: 11/04/2019 19:43:32 EST by RADHA COVINGTON Rn) Alcohol: Alcohol Use History No. (Last Updated: 11/14/2018 07:19:08 EST by RADHA TERRAZAS RN) Substance Abuse: Drug Use Hx: No. Use in Last 12 Months: No. (Last Updated: 11/14/2018 07:19:13 EST by RADHA TERRAZAS RN) Home/Environment: Lives with Spouse. Living situation: Home/Independent. (Last Updated: 10/26/2019 09:41:52 EST by HILDA ANTHONY RN) Employment/School: Employed (Last Updated: 10/26/2019 09:41:57 EST by HILDA ANTHONY RN) Cardiovascular ASMT, ED Cardiovascular Assessment WDL : WDL with exceptions (Comment: patient with bouts of bradycardia, hr as low as 33 at times, patient has no sx other than dizziness, not dizzy while in bed, recent avr surgery, patient was recovering well at home until dizzy spells today [MARIA TERESA KAT RN - 11/04/2019 21:37 EST] ) MARIA TERESA KAT RN - 11/04/2019 21:37 EST Respiratory Respiratory Assessment WDL : WD MARIA TERESA KAT RN - 11/04/2019 21:37 EST Oxygen Therapy Oxygen Therapy Mode : Room air MARIA TERESA KAT RN - 11/04/2019 21:37 EST Musculoskeletal Musculoskeletal Assessment WDL : WD with exceptions Musculoskeletal Assessment Comment : patient with scab to right elbow and abrasion to top of head from fall this am, no loc MARIA TERESA KAT RN - 11/04/2019 21:37 EST Neurologic ASMT, ED Neurologic Assessment WDL : WD with exceptions (Comment: patient dizzy, closed head injury with fall this am [MARIA TERESA KAT RN - 11/04/2019 21:37 EST] ) MARIA TERESA KAT RN - 11/04/2019 21:37 EST Pain Assessment Pain Assessment : Initial assessment Pain Scale Used : 0-10 Scale MARIA TERESA KAT RN - 11/04/2019 21:37 EST Pain Scale Intensity : 0 MARIA TERESA KAT RN - 11/04/2019 21:37 EST Image 4 - Images currently included in the form version of this document have not been included in the text rendition version of the form. documented in this encounter Plan of Treatment Not on file documented as of this encounter Visit Diagnoses Not on filedocumented in this encounter
--- OUTSIDE RECORDS SUMMARY | 2025-03-28 10:42 | XMS_ITS | Encounter Summary ---
Author Organization [employer] Address [address] [place] [address] Care Team Providers Care Bilingual Hr Generalist Name Role Phone Unavailable Primary Care Provider Unavailabl e Encounter Details Date Type Department Care Team (Late st Contact Info) Description 06/03/2021 Transcribed Document [facility] [place] [facility] [place] [address] ProviderPrasanth MD [facility] [place] [address] Social History Tobacco Use Types Packs/Day Years Used Date Smoking Tobacco: Never Assessed Sex and Gender Information Value Date Recorded Sex Assigned at Not on file Legal Sex Male 6:49 PM CDT Gender Identity Not on file Sexual Orientation Not on file documented as of this encounter Miscellaneous Notes * Cerner Conversion Note - Prasanth ProviderMD - 06/03/2021 9:00 AM CDT NIH Stroke Scale *Q Entered On: 06/03/2021 7:32 EDT Performed On: 06/03/2021 9:00 EDT by Chang Medrano, Sourcer-Student Nurse NIH Stroke Scale *Q NIH Assessment Interval : Other: 36 hours post symptoms Time of Assessment : 06/03/2021 7:31 EDT NIH Level of Consciousness (1A) : Alert NIH LOC Questions (1B) : Answers both questions correctly NIH LOC Commands (1C) : Performs both tasks correctly NIH Best Gaze (2) : Normal NIH Visual (3) : No visual loss NIH Facial Palsy (4) : Normal symmetrical movements NIH Motor Arm, Left (5A) : No drift NIH Motor Arm, Right (5B) : No drift NIH Motor Leg, Left (6A) : No drift NIH Motor Leg, Right (6B) : No drift NIH Limb Ataxia (7) : Absent NIH Sensory (8) : Normal NIH Best Language (9) : No aphasia NIH Dysarthria (10) : Normal Extinction and Inattention (11) : No abnormality NIH Scale Score : 0 Chang Medrano, Sourcer-Student Nurse - 06/03/2021 7:31 EDT documented in this encounter Plan of Treatment Not on file documented as of this encounter Visit Diagnoses Not on filedocumented in this encounter
--- OUTSIDE RECORDS SUMMARY | 2025-03-28 10:42 | XMS_ITS | Encounter Summary ---
Author Organization [employer] Address [address] [place] [address] Care Team Providers Care Forest Pathology Teacher Name Role Phone Unavailable Primary Care Provider Unavailabl e Encounter Details Date Type Department Care Team (Late st Contact Info) Description 08/04/2020 Transcribed Document [facility] [place] [address] [place] [address] ProviderPrasanth MD [facility] [place] [address] Social History Tobacco Use Types Packs/Day Years Used Date Smoking Tobacco: Never Assessed Sex and Gender Information Value Date Recorded Sex Assigned at Not on file Legal Sex Male 6:49 PM CDT Gender Identity Not on file Sexual Orientation Not on file documented as of this encounter Miscellaneous Notes * Cerner Conversion Note - Historical ProviderMD - 08/04/2020 12:17 PM CDT Education-Wound Care Entered On: 08/04/2020 20:28 EDT Performed On: 08/04/2020 12:17 EDT by Tish Calvillo Rn Teaching/Learning Assessment Barriers To Learning : None evident Learning Style Preferences Patient : None Learning Style Preferences Family : None Tish Calvillo Rn - 08/04/2020 20:28 EDT documented in this encounter Plan of Treatment Not on file documented as of this encounter Visit Diagnoses Not on filedocumented in this encounter
--- OUTSIDE RECORDS SUMMARY | 2025-03-28 10:42 | XMS_ITS | Encounter Summary ---
Author Organization [email or web address] Address [address] [place] [address] Care Team Providers Care Tapper Helper Name Role Phone Unavailable Primary Care Provider Unavailabl e Encounter Details Date Type Department Care Team (Late st Contact Info) Description 11/06/2019 Transcribed Document [facility] [place] Family Medicine [address] [place] [address] ProviderPrasanth [place] [address] Social History Tobacco Use Types Packs/Day Years Used Date Smoking Tobacco: Never Assessed Sex and Gender Information Value Date Recorded Sex Assigned at Not on file Legal Sex Male 6:49 PM CDT Gender Identity Not on file Sexual Orientation Not on file documented as of this encounter Miscellaneous Notes * Cerner Conversion Note - Prasanth ProviderMD - 11/06/2019 2:25 PM WAD BLANKING PRESS ADJUSTER Initial Discharge Planning Entered On: 11/06/2019 14:29 EST Performed On: 11/06/2019 14:25 EST by BINH SIDDIQI, RN-Lap Winding Machine Operator Initial Assessment I Previously Documented Living Environment : Living Situation, CM: Home (11/05/19 17:51:00) Sensory and Motor Deficits: None (11/05/19 17:51:00) Current Home Treatments and Equipment: None (11/05/19 17:51:00) Living Situation : Home Patient Lives With : Spouse Emergency Contact #1 : Rosa Elena Bustamante Emergency Contact #1 Emergency Contact #1 Relationship : Spouse Emergency Contact #2 : NA Emergency Contact #2 Phone Number : NA Emergency Contact #2 Relationship : NA Enter Doctors Name : Marcelino Caldera MD Does Patient have PCP Listed? : Yes Medical Durable Power of Mechanical Repair Worker Name : Legal Guardian : No Is Guardianship Needed : No BINH SIDDIQI, RN-Lap Winding Machine Operator - 11/06/2019 14:25 EST Initial Assessment II Sensory and Motor Deficits : None, Weakness Current Home Treatments and Equipment : None Does the Patient have a Floor to SNF Benefit? : Yes BINH SIDDIQI, RN-Lap Winding Machine Operator - 11/06/2019 14:25 EST Discharge Needs I Anticipated Discharge Date : 11/08/2019 EST Anticipated Discharge To, CM : Home with home health Current Home Treatment/Equipment : Current Home Treatment/Equipment Current Home Treatments and Equipment: None (11/05/19 17:51:00) Post Acute/Home Treatments : None Documentation Status Complete : Yes BINH SIDDIQI, RN-Lap Winding Machine Operator - 11/06/2019 14:25 EST Discharge Needs II Professional Skilled Services : Professional Skilled Services No qualifying data available. Needs Assistance with Transportation : No Discharge Options Discussed with Patient : Home Health BINH SIDDIQI, RN-Lap Winding Machine Operator - 11/06/2019 14:25 EST Narrative Note Narrative Note : readmit risk: moderate 61 1-20 to 1-21: TAVR. no needs ED admit. 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 subdural hematoma post fall. known cad: TAVR. paf-ablation. cad. cardene gtt. needs pacemaker prior to dc. spoke with Mr. Cormier. explained role of case management. adl independent. no dme, home health or rehab stays. dc planning based on progress. moderate risk for readmit: ? home health & close follow up with providers. spoke with saba Banerjee RN. Historical Narrative Note : 3rd deg Heart block, rate 30-60's CM met w/pt - he lives home w/. IND-ADLs, Drives, Denies having O2 or DME. states he goes to workout 3x/wk. he is very talkative and in good spirits. Pt is to have a PM placed tomorrow. informed him of CM services and we will follow and assist w/needs as approp. ROSANA CALLEJAS, RN-Lap Winding Machine Operator - 11/05/19 17:54:15 BINH SIDDIQI, RN-Lap Winding Machine Operator - 11/06/2019 14:25 EST Electronically signed by [facility] Conversion Blueprint Processor Cerner at 01/26/2023 9:08 PM CDT documented in this encounter Plan of Treatment Not on file documented as of this encounter Visit Diagnoses Not on filedocumented in this encounter
--- OUTSIDE RECORDS SUMMARY | 2025-03-28 10:43 | XMS_ITS | Encounter Summary ---
Author Organization [employer] Address [address] [place] [address] Care Team Providers Care Plumbing Drafter Name Role Phone Unavailable Primary Care Provider Unavailabl e Encounter Details Date Type Department Care Team (Late st Contact Info) Description 10/29/2019 Transcribed Document [facility] [place] [facility] [place] [address] ProviderPrasanth MD [address] [place] [address] Social History Tobacco Use Types Packs/Day Years Used Date Smoking Tobacco: Never Assessed Sex and Gender Information Value Date Recorded Sex Assigned at Not on file Legal Sex Male 6:49 PM CDT Gender Identity Not on file Sexual Orientation Not on file documented as of this encounter Miscellaneous Notes * Cerner Conversion Note - Historical ProviderMD - 10/29/2019 8:11 AM COOK SYRUP MAKER [facility] Main OR PACU Summary Primary Physician: MARK HAIRSTON MD-CAT Finalized Date/Time: 10/29/19 11:47:09 Pt. Name: ALEXANDREFei SHIRA HORACIO /Sex: 1935 Male Med Rec #: [id number] Physician: MARK HAIRSTON MD-CAT Financial #: [id number] Pt. Type: I Room/Bed: 412/1 Admit/Disch: 10/29/19 07:03:00 - Institution: [facility] Main OR PACU I Case Times Entry 1 In PACU I 10/29/19 09:45:00 Ready for PACU 10/29/19 11:30:00 Discharge Discharge from PACU 10/29/19 11:30:00 I Last Modified By: JIMI KOCH RN 10/29/19 11:46:00 Finalized By: JIMI KOCH RN Document Signatures Signed By: JIMI KOCH RN 10/29/19 11:47 documented in this encounter Plan of Treatment Not on file documented as of this encounter Visit Diagnoses Not on filedocumented in this encounter
--- OUTSIDE RECORDS SUMMARY | 2025-03-28 10:43 | XMS_ITS | Encounter Summary ---
Author Organization [employer] [facility] Address [address] [place] [id number] Care Team Providers Care Dog Walker Name Role Phone Unavailable Primary Care Provider Unavailabl e Encounter Details Date Type Department Care Team (Late st Contact Info) Description 10/29/2019 Transcribed Document [facility] [place] Family Medicine [facility] [place] [address] ProviderPrasanth MD [address] [place] [address] [phone] Social History Tobacco Use Types Packs/Day Years Used Date Smoking Tobacco: Never Assessed Sex and Gender Information Value Date Recorded Sex Assigned at Not on file Legal Sex Male 6:49 PM CDT Gender Identity Not on file Sexual Orientation Not on file documented as of this encounter Miscellaneous Notes * Cerner Conversion Note - Prasanth ProviderMD - 10/29/2019 10:20 AM METAL MOULDER DATE OF PROCEDURE: 10/29/2019 SURGEON: Michael Fontana MD PREOPERATIVE DIAGNOSES: 1. Critical aortic valve stenosis. 2. History of atrial flutter, status post ablation. 3. History of coronary artery bypass grafting. 4. Hypertension. 5. Hyperlipidemia. POSTOPERATIVE DIAGNOSES: 1. Critical aortic valve stenosis. 2. History of atrial flutter, status post ablation. 3. History of coronary artery bypass grafting. 4. Hypertension. 5. Hyperlipidemia. PROCEDURES PERFORMED: 1. Transcatheter aortic valve replacement using a 29 mm Mancia NAVID 3 bioprosthetic valve via percutaneous closed right transfemoral approach under conscious sedation. 2. Supravalvular aortography. 3. Placement of temporary transvenous pacemaker via the left common femoral vein. ANESTHESIA: MAC with 1% lidocaine. OPERATORS: 1. Dr. Jamshid Holman. 2. Dr. Roberta Quinonez. INDICATION FOR PROCEDURE: Mr. David Cormier is an 84-year-old male with history of coronary artery disease, status post coronary artery bypass grafting, as well as atrial flutter, status post ablation, who was found to have critical aortic valve stenosis. A left heart catheterization revealed patent grafts from 2019. He also underwent successful balloon aortic valvuloplasty at that time. The patient was found to have at least intermediate risk for open surgical valve replacement with an STS score mortality rate of 3.389%. The morbidity was calculated to be at least 13.266%. The patient was subsequently considered for transcatheter aortic valve replacement, and after evaluation, the procedure was offered to the patient. DESCRIPTION OF PROCEDURE: After informed consent was obtained, the patient was brought into the hybrid operating room suite, and was placed in supine position. Entire chest, abdomen, groin, and both lower extremity to the knee were prepped and draped in sterile fashion. Time-out was called. The patient identity and the procedure were confirmed. Conscious sedation was administered by Anesthesia. Following that, we were able to place a 6-Gabonese sheath into the right common femoral artery. Angiography revealed an appropriate sheath size and position for a large sheath insertion. A guidewire was then placed into the right common femoral artery and a 6-Gabonese sheath was then subsequently removed. A single Perclose was then deployed in a pre-close fashion and the sheath was then up sized to an 8-Gabonese. A 6-Gabonese sheath was then also inserted into the left common femoral vein and another 6-Gabonese sheath was placed in the left common femoral artery. A 5-Gabonese transvenous pacemaker was inserted through the venous sheath and was advanced under fluoroscopic guidance to the right ventricular free wall. Pacing capture was confirmed. A 5-Gabonese pigtail catheter was then advanced through the left common femoral arterial sheath and was positioned in the right coronary cusp. Supravalvular aortography was then performed. Coplanar view was confirmed. Amplatz Extra Stiff wire was then placed into the 8-Gabonese right femoral arterial sheath and was advanced. The 8-Gabonese right femoral arterial sheath was then removed, and after dilatation of the tissue tract, a 16-Gabonese Mancia eSheath was inserted without difficulty. This sheath was then secured to the skin using silk suture. Heparin was then also administered to achieve a therapeutic ACT. Over the Amplatz Extra Stiff wire, a 6-Gabonese AL1 diagnostic catheter was advanced and a straight-tipped 0.035-inch guidewire was placed into the AL1 catheter, and then subsequently, the aortic valve was crossed. The AL1 catheter was then advanced over the guidewire into the left ventricle. The crossing wire was then subsequently removed. A long J-tip 0.035-inch safety wire was then advanced into the left ventricle and an AL1 catheter was advanced into the left ventricular apex. The AL1 catheter was then subsequently removed. A pigtail catheter was then placed over the long J-tip 0.035-inch wire into the left ventricular apex. Through this catheter, subsequently, a 0.035-inch Amplatz Extra Stiff guidewire with an exaggerated distal curve was positioned in the left ventricular apex. Over the Amplatz wire, the valve delivery system was inserted. In the descending portion of the aorta, the valve delivery balloon was positioned in the valve. The Flex catheter was flexed, and the system was advanced across the aortic arch and across the aortic valve without difficulty under fluoroscopic guidance. The sheath was then pulled back. Rapid ventricular pacing was then initiated and the valve was deployed and remained stable. The patient resumed adequate hemodynamics quickly following the deployment. The valve delivery balloon was withdrawn into the ascending aorta. Repeat supravalvular aortography revealed no immediate complication and no aortic regurgitation. The delivery system was then subsequently removed. Transthoracic echocardiography was also subsequently performed, which revealed good positioning of the new bioprosthetic valve with no evidence of any significant perivalvular leak. The Mancia eSheath was then subsequently removed over a wire and the Perclose was tightened. The 6-Gabonese sheath from the left common femoral artery was also removed and it was closed using Mynx. Transvenous pacing wires were also removed, and along with that, venous sheath was removed. Manual compression was held. Heparin was reversed using protamine sulfate. When we were content with the hemostasis in the right common femoral artery access site, the guidewire was also removed. The Perclose wire was then tightened and the knot was cut. Manual compression was held again. The patient developed adequate hemostasis in both groins. He was subsequently transferred to the recovery room in stable condition. /[id number] MD DARREN Caro/ASHLEY / HRM / MODL /[id number] CC: MD Jason Caro MD Ryan Waddles, MD Electronically signed by Nikita, [facility] Conversion Research Chemical Engineer Cerner at 01/26/2023 8:51 PM CDT documented in this encounter Plan of Treatment Not on file documented as of this encounter Visit Diagnoses Not on filedocumented in this encounter
--- OUTSIDE RECORDS SUMMARY | 2025-03-28 10:43 | XMS_ITS | Encounter Summary ---
Author Organization [employer] [facility] Address [address] [place] [address] Care Team Providers Care Rv Service Technician Name Role Phone Unavailable Primary Care Provider Unavailabl e Encounter Details Date Type Department Care Team (Late st Contact Info) Description 11/07/2019 Transcribed Document [facility] [place] Family Medicine [facility] [place] [address] ProviderPrasanth MD [address] [place] [phone] Social History Tobacco Use Types Packs/Day Years Used Date Smoking Tobacco: Never Assessed Sex and Gender Information Value Date Recorded Sex Assigned at Not on file Legal Sex Male 6:49 PM CDT Gender Identity Not on file Sexual Orientation Not on file documented as of this encounter Miscellaneous Notes * Cerner Conversion Note - Historical ProviderMD - 11/07/2019 2:30 PM 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 subdural hematoma post fall. known cad: TAVR. paf-ablation. cad. on transfer to floor. cardene gtt off. clonidine prn x 2. hydrazaline prn x 2. PT/OT: walked with therapy. plavix on hold for pacemaker , 1-. independent prior to admit. spoke with bedside RN, Shawna. Historical Progress Note : 3rd deg Heart block, rate 30-60's CM met w/pt - he lives home w/. IND-ADLs, Drives, Denies having O2 or DME. states he goes to workout 3x/wk. he is very talkative and in good spirits. Pt is to have a PM placed tomorrow. informed him of CM services and we will follow and assist w/needs as approp. ROSANA CALLEJAS, RN-Flowers Salesperson - 11/05/19 17:54:54 BINH SIDDIQI, RN-Flowers Salesperson - 11/07/2019 14:30 EST documented in this encounter Plan of Treatment Not on file documented as of this encounter Visit Diagnoses Not on filedocumented in this encounter
--- OUTSIDE RECORDS SUMMARY | 2025-03-28 10:43 | XMS_ITS | Encounter Summary ---
Author Organization [employer] Address [address] [place] [address] Care Team Providers Care Keycase Assembler Name Role Phone Unavailable Primary Care Provider Unavailabl e Encounter Details Date Type Department Care Team (Late st Contact Info) Description 08/06/2020 Transcribed Document [facility] [place] [facility] [address] [place] [address] ProviderPrasanth MD [address] [place] [id number] Social History Tobacco Use Types Packs/Day Years Used Date Smoking Tobacco: Never Assessed Sex and Gender Information Value Date Recorded Sex Assigned at Not on file Legal Sex Male 6:49 PM CDT Gender Identity Not on file Sexual Orientation Not on file documented as of this encounter Miscellaneous Notes * Cerner Conversion Note - Prasanth Sanchez MD - 08/06/2020 1:08 PM CDT [facility] 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 [address]- Business (1) Follow Up with KARON MCWILLIAMS When Within 1 week Comments f/u aov stenosis and troponin leak/chestpain Call for follow up appointment Where: [address] [facility] [place] [address] Business (1) Medications What How Much When Instructions Next Dose apixaban (Eliquis 5 mg oral tablet) 1 Tablet(s) Oral Interval Every 12 Hours START AM Pickup at [facility] isosorbide mononitrate (isosorbide mononitrate 20 mg oral tablet) 1 Tablet(s) Oral Two Times A Day Pickup at [facility] aspirin 81 Milligram(s) Every Day atorvastatin (atorvastatin 20 mg oral tablet) 1 Tablet(s) Oral Tuesday hydrochlorothiazide-lisinopril (hydroCHLOROthiazide-lisinopril 12.5 mg-20 mg oral tablet) 1 Tablet(s) Oral Every Day multivitamin 1 Tablet(s) Oral Every Day nitroglycerin (Nitrostat 0.4 mg sublingual tablet) 1 Tablet(s) SubLINgual Every 5 minutes as needed for as needed for chest pain Pharmacy Information [facility]: [address] [address] [phone] Take your medications faithfully. Do NOT skip [...] medications per your retail pharmacy guidance. Allergies Plavix amiodarone (Unknown) Immunizations This Visit No Immunizations Found Education Materials Aspirin and Your Heart Aspirin is a medicine that prevents the cells in the blood that are used for clotting, called platelets, from sticking together. Aspirin can be used to help reduce the risk of blood clots, heart attacks, and other heart-related problems. Can I take aspirin? Your health care provider will help you determine whether it is safe and beneficial for you to take aspirin daily. Taking aspirin daily may be helpful if you: ??? Have had a heart attack or chest pain. ??? Are at risk for a heart attack. ??? Have undergone open-heart surgery, such as coronary artery bypass surgery (CABG). ??? Have had coronary angioplasty or a stent. ??? Have had certain types of stroke or transient ischemic attack (TIA). ??? Have peripheral artery disease (PAD). ??? Have chronic heart rhythm problems such as atrial fibrillation and cannot take an anticoagulant. ??? Have valve disease or have had surgery on a valve. What are the risks? Daily use of aspirin can cause side effects. Some of these include: ??? Bleeding. Bleeding problems can be minor or serious. An example of a minor problem is a cut that does not stop bleeding. An example of a more serious problem is stomach bleeding or, rarely, bleeding into the brain. Your risk of bleeding is increased if you are also taking non-steroidal anti-inflammatory drugs (NSAIDs). ??? Increased bruising. ??? Upset stomach. ??? An allergic reaction. People who have nasal polyps have an increased risk of developing an aspirin allergy. General guidelines ??? Take aspirin only as told by your health care provider. Make sure that you understand how much you should take and what form you should take. The two forms of aspirin are: ? Pmo-levermy-jpqegd.This type of aspirin does not have a coating and is absorbed quickly. This type of aspirin also comes in a chewable form. ? Enteric-coated. This type of aspirin has a coating that releases the medicine very slowly. Enteric-coated aspirin might cause less stomach upset than nqp-nzfzhxt-abvgnp aspirin. This type of aspirin should not be chewed or crushed. ??? Limit alcohol intake to no more than 1 drink a day for non women and 2 drinks a day for men. Drinking alcohol increases your risk of bleeding. One drink equals 12 oz of beer, 5 oz of wine, or 1?? oz of hard liquor. Contact a health care provider if you: ??? Have unusual bleeding or bruising. ??? Have stomach pain or nausea. ??? Have ringing in your ears. ??? Have an allergic reaction that causes: ? Hives. ? Itchy skin. ? Swelling of the lips, tongue, or face. Get help right away if you: ??? Notice that your bowel movements are bloody, dark red, or black in color. ??? Vomit or cough up blood. ??? Have blood in your urine. ??? Cough, have noisy breathing (wheeze), or feel short of breath. ??? Have chest pain, especially if the pain spreads to the arms, back, neck, or jaw. ??? Have a severe headache, or a headache with confusion, or dizziness. These symptoms may represent a serious problem that is an emergency. Do not wait to see if the symptoms will go away. Get medical help right away. Call your local emergency services (911 in the [place] Do not drive yourself to the hospital. Summary ??? Aspirin can be used to help reduce the risk of blood clots, heart attacks, and other heart-related problems. ??? Daily use of aspirin can increase your risk of side effects. Your health care provider will help you determine whether it is safe and beneficial for you to take aspirin daily. ??? Take aspirin only as told by your health care provider. Make sure that you understand how much you can take and what form you can take. This information is not intended to replace advice given to you by your health care provider. Make sure you discuss any questions you have with your health care provider. Document Released: 09/08/2009 Document Revised: 07/27/2018 Document Reviewed: 07/27/2018 [employer] Patient Education ?? 2020 [employer]. Acute Coronary Syndrome Acute coronary syndrome (ACS) is a serious problem in which there is suddenly not enough blood and oxygen reaching the heart. ACS can result in chest pain or a heart attack. This condition is a medical emergency. If you have any symptoms of this condition, get help right away. What are the causes? This condition may be caused by: ??? A buildup of fat and cholesterol inside the arteries (atherosclerosis). This is the most common cause. The buildup (plaque) can cause blood vessels in the heart (coronary arteries) to become narrow or blocked, which reduces blood flow to the heart. Plaque can also break off and lead to a clot, which can block an artery and cause a heart attack or stroke. ??? Sudden tightening of the muscles around the coronary arteries (coronary spasm). ??? Tearing of a coronary artery (spontaneous coronary artery dissection). ??? Very low blood pressure (hypotension). ??? An abnormal heartbeat (arrhythmia). ??? Other medical conditions that cause a decrease of oxygen to the heart, such as anemiaorrespiratory failure. ??? Using cocaine or methamphetamine. What increases the risk? The following factors may make you more likely to develop this condition: ??? Age. The risk for ACS increases as you get older. ??? History of chest pain, heart attack, peripheral artery disease, or stroke. ??? Having taken chemotherapy or immune-suppressing medicines. ??? Being male. ??? Family history of chest pain, heart disease, or stroke. ??? Smoking. ??? Not exercising enough. ??? Being overweight. ??? High cholesterol. ??? High blood pressure (hypertension). ??? Diabetes. ??? Excessive alcohol use. What are the signs or symptoms? Common symptoms of this condition include: ??? Chest pain. The pain may last a long time, or it may stop and come back (recur). It may feel like: ? Crushing or squeezing. ? Tightness, pressure, fullness, or heaviness. ??? Arm, neck, jaw, or back pain. ??? Heartburn or indigestion. ??? Shortness of breath. ??? Nausea. ??? Sudden cold sweats. ??? Light-headedness. ??? Dizziness or passing out. ??? Tiredness (fatigue). Sometimes there are no symptoms. How is this diagnosed? This condition may be diagnosed based on: ??? Your medical history and symptoms. ??? Imaging tests, such as: ? An electrocardiogram (ECG). This measures the heart's electrical activity. ? X-rays. ? CT scan. ? A coronary angiogram. For this test, dye is injected into the heart arteries and then X-rays are taken. ? Myocardial perfusion imaging. This test shows how well blood flows through your heart muscle. ??? Blood tests. These may be repeated at certain time intervals. ??? Exercise stress testing. ??? Echocardiogram. This is a test that uses sound waves to produce detailed images of the heart. How is this treated? Treatment for this condition may include: ??? Oxygen therapy. ??? Medicines, such as: ? Antiplatelet medicines and blood-thinning medicines, such as aspirin. These help prevent blood clots. ? Medicine that dissolves any blood clots (fibrinolytic therapy). ? Blood pressure medicines. ? Nitroglycerin. This helps widen blood vessels to improve blood flow. ? Pain medicine. ? Cholesterol-lowering medicine. ??? Surgery, such as: ? Coronary angioplasty with stent placement. This involves placing a small piece of metal that looks like mesh or a spring into a narrow coronary artery. This widens the artery and keeps it open. ? Coronary artery bypass surgery. This involves taking a section of a blood vessel from a different part of your body and placing it on the blocked coronary artery to allow blood to flow around the blockage. ??? Cardiac rehabilitation. This is a program that includes exercise training, education, and counseling to help you recover. Follow these instructions at home: Eating and drinking ??? Eat a heart-healthy diet that includes whole grains, fruits and vegetables, lean proteins, and low-fat or nonfat dairy products. ??? Limit how much salt (sodium) you eat as told by your health care provider. Follow instructions from your health care provider about any other eating or drinking restrictions, such as limiting foods that are high in fat and processed sugars. ??? Use healthy cooking methods such as roasting, grilling, broiling, baking, poaching, steaming, or stir-frying. ??? Work with a dietitian to follow a heart-healthy eating plan. Medicines ??? Take bmhk-owl-tabzewu and prescription medicines only as told by your health care provider. ??? Do not take these medicines unless your health care provider approves: ? Vitamin supplements that contain vitamin A or vitamin E. ? NSAIDs, such as ibuprofen, naproxen, or celecoxib. ? Hormone replacement therapy that contains estrogen. ??? If you are taking blood thinners: ? Talk with your health care provider before you take any medicines that contain aspirin or NSAIDs. These medicines increase your risk for dangerous bleeding. ? Take your medicine exactly as told, at the same time every day. ? Avoid activities that could cause injury or bruising, and follow instructions about how to prevent falls. ? Wear a medical alert bracelet, and carry a card that lists what medicines you take. Activity ??? Follow your cardiac rehabilitation program. Do exercises as told by your physical therapist. ??? Ask your health care provider what activities and exercises are safe for you. Follow his or her instructions about lifting, driving, or climbing stairs. Lifestyle ??? Do not use any products that contain nicotine or tobacco, such as cigarettes, e-cigarettes, and chewing tobacco. If you need help quitting, ask your health care provider. ??? Do not drink alcohol if your health care provider tells you not to drink. ??? If you drink alcohol: ? Limit how much you have to 0???1 drink a day. ? Be aware of how much alcohol is in your drink. In the [place] one drink equals one 12 oz bottle of beer (355 mL), one 5 oz glass of wine (148 mL), or one 1?? oz glass of hard liquor (44 mL). ??? Maintain a healthy weight. If you need to lose weight, work with your health care provider to do so safely. General instructions ??? Tell all the health care providers who provide care for you about your heart condition, including your dentist. This may affect the medicines or treatment you receive. ??? Manage any other health conditions you have, such as hypertension or diabetes. These conditions affect your heart. ??? Pay attention to your mental health. You may be at higher risk for depression. ? Find ways to manage stress. ? Talk to your health care provider about depression screening and treatment. ??? Keep your vaccinations up to date. ? Get the flu shot (influenza vaccine) every year. ? Get the pneumococcal vaccine if you are age 65 or older. ??? If directed, monitor your blood pressure at home. ??? Keep all follow-up visits as told by your health care provider. This is important. Contact a health care provider if you: ??? Feel overwhelmed or sad. ??? Have trouble doing your daily activities. Get help right away if you: ??? Have pain in your chest, neck, arm, jaw, stomach, or back that recurs, and: ? It lasts for more than a few minutes. ? It is not relieved by taking the medicineyour health care provider prescribed. ??? Have unexplained: ? Heavy sweating. ? Heartburn or indigestion. ? Nausea or vomiting. ? Shortness of breath. ? Difficulty breathing. ? Fatigue. ? Nervousness or anxiety. ? Weakness. ? Diarrhea. ? Dark stools or blood in your stool. ??? Have sudden light-headedness or dizziness. ??? Have blood pressure that is higher than 180/120. ??? Faint. ??? Have thoughts about hurting yourself. These symptoms may represent a serious problem that is an emergency. Do not wait to see if the symptoms will go away. Get medical help right away. Call your local emergency services (911 in the [place] Do not drive yourself to the hospital. Summary ??? Acute coronary syndrome (ACS) is when there is not enough blood and oxygen being supplied to the heart. ACS can result in chest pain or a heart attack. ??? Acute coronary syndrome is a medical emergency. If you have any symptoms of this condition, get help right away. ??? Treatment includes medicines and procedures to open the blocked arteries and restore blood flow. This information is not intended to replace advice given to you by your health care provider. Make sure you discuss any questions you have with your health care provider. Document Released: 09/26/2006 Document Revised: 10/08/2019 Document Reviewed: 10/08/2019 Elsevier Patient Education ?? 2020 [employer] Mitral Valve Replacement Mitral valve replacement is surgery to replace the mitral valve with an artificial (prosthetic) valve. You may need this procedure if your mitral valve is too damaged to repair, such as from rheumatic disease. Three types of prosthetic valves are available: ??? Mechanical valves made entirely from prosthetic materials. ??? Donor valves from human cadavers. These are used only in certain situations. ??? Biological valves made from animal tissues. There are two types of mitral valve replacement surgeries: ??? Traditional mitral valve replacement surgery. This is done with a large incision in the chest. ??? Minimally invasive mitral valve replacement surgery. This is done with a smaller incision in the chest. You and your surgeon will decide which type of valve is best for you and which type of surgery you will have. Tell a health care provider about: ??? Any allergies you have. ??? All medicines you are taking, including vitamins, herbs, eye drops, creams, and mbhn-kbb-chtwnrw medicines. ??? Any problems you or family members have had with anesthetic medicine. ??? Any blood disorders you have. ??? Any surgeries you have had. ??? Any medical conditions you have. ??? Whether you are or may be . What are the risks? Generally, this is a safe procedure. However, problems may occur, including: ??? Infection of the new valve. ??? Bleeding. ??? Allergic reactions to medicines. ??? Damage to other structures or organs. ??? Heart rhythm problems. ??? Blood clotting caused by the new valve. Replacement with a mechanical valve requires lifelong treatment with medicine to prevent blood clots. ??? Valve failure. What happens before the procedure? Medicines ??? Ask your health care provider about: ? Changing or stopping your regular medicines. This is especially important if you are taking diabetes medicines or blood thinners. ? Taking medicines such as aspirin and ibuprofen. These medicines can thin your blood. Do not take these medicines unless your health care provider tells you to take them. ? Taking nhlf-cbv-wssndng medicines, vitamins, herbs, and supplements. Staying hydrated Follow instructions from your health care provider about hydration, which may include: ??? Up to 2 hours before the procedure ??? you may continue to drink clear liquids, such as water, clear fruit juice, black coffee, and plain tea. Eating and drinking restrictions Follow instructions from your health care provider about eating and drinking, which may include: ??? 8 hours before the procedure ??? stop eating heavy meals or foods, such as meat, fried foods, or fatty foods. ??? 6 hours before the procedure ??? stop eating light meals or foods, such as toast or cereal. ??? 6 hours before the procedure ??? stop drinking milk or drinks that contain milk. ??? 2 hours before the procedure ??? stop drinking clear liquids. General instructions ??? Do not use any products that contain nicotine or tobacco for at least 4 weeks before the procedure. These products include cigarettes, e-cigarettes, and chewing tobacco. If you need help quitting, ask your health care provider. ??? Ask your health care provider: ? How your surgical site will be marked or identified. ? What steps will be taken to help prevent infection. These may include: ? Removing hair at the surgery site. ? Washing skin with a germ-killing soap. ? Taking antibiotic medicine. ??? You may be asked to shower with a germ-killing soap. ??? You may have tests, such as: ? A test that records electrical activity in the heart (electrocardiogram, or ECG). ? A test that creates ultrasound images of the heart that allow your health care provider to see how the heart valves work while your heart is beating (echocardiogram). ??? You may have a blood or urine sample taken. ??? Plan to have someone take you home from the hospital or clinic. What happens during the procedure? An IV will be inserted into one of your veins. ??? You will be given a medicine to make you fall asleep (general anesthetic). ??? A tube will be placed in your throat. This tube is attached to a machine that will help you breathe and give you oxygen during the procedure. ??? A thin, flexible tube (catheter) will be inserted to help drain your urine. ??? You will be placed on a machine that provides oxygen to your blood while the heart is undergoing surgery (heart-lung bypass machine). ??? If you are having traditional surgery, a large incision will be made in your chest. If you are having minimally invasive surgery, a smaller incision will be made in your chest. ??? Your heart may be cooled to slow or stop the heartbeat. ??? Your damaged mitral valve will be removed, and the prosthetic valve will be sewn into place. ??? Your incisions will be closed. This may be done using stitches (sutures), margret, skin glue, or adhesive strips. ??? A bandage (dressing) may be placed over your incisions. The procedure may vary among health care providers and hospitals. What happens after the procedure? Your blood pressure, heart rate, breathing rate, and blood oxygen level will be monitored until you leave the hospital or clinic. ??? You may have some chest pain. You will be given pain medicine as needed. ??? If you had a mechanical valve placed, you will be given medicines to thin your blood to prevent blood clots. ??? You may need to be in the intensive care unit (ICU) to be closely monitored after your surgery. ??? You will still have the urinary catheter in place. It will likely be removed the day after surgery. ??? You will be encouraged to walk as soon as possible. You will also use a device or do breathing exercises to keep your lungs clear. ??? As you recover, you will be moved to a regular hospital room. ??? You may have to wear compression stockings. These stockings help to prevent blood clots and reduce swelling in your legs. Summary ??? Mitral valve replacement is a surgery to replace a damaged mitral valve with an artificial (prosthetic) valve. ??? Three types of prosthetic valves are available. ??? You may need this procedure if your mitral valve is too damaged to repair, such as from rheumatic disease. ??? Follow instructions from your health care provider about eating and drinking before the procedure. This information is not intended to replace advice given to you by your health care provider. Make sure you discuss any questions you have with your health care provider. Document Released: 01/27/2006 Document Revised: 06/19/2019 Document Reviewed: 06/19/2019 Elsevier Patient Education ?? 2020 [employer] Venous Thromboembolism Prevention Venous thromboembolism (VTE) is a condition in which a blood clot (thrombus) develops in the body. A deep vein thrombosis (DVT) is a blood clot that usually occurs in a deep vein in the leg or the pelvis, but it can also occur in the arm. Sometimes, pieces of a thrombus can break off and travel through the bloodstream to other parts of the body. When that happens, the thrombus is called an embolus. An embolus that travels to the lungs is called a pulmonary embolism. An embolism can block the blood flow in the blood vessels of other organs as well. How can this condition affect me? VTE is a serious health condition that can cause disability or . It is very important to get help right away. Do not ignore your symptoms. What can increase my risk? You are more likely to develop this condition if you: ??? Have had recent major surgery or trauma. ??? Have certain health conditions, such as cancer. ??? Are in the hospital for a sudden illness. ??? Have not moved for a long period of time, such as if you are on bed rest or traveling a long distance. ??? Take certain medicines, such as control pills or hormone replacement therapy. ??? Are or recently gave . ??? Have a personal or family history of VTE. ??? Are overweight. ??? Are 60 years of age or older. ??? Use products that contain nicotine and tobacco. What actions can I take to prevent this? In the hospital A VTE may be prevented by taking medicines that are prescribed to prevent blood clots (anticoagulants). You can also help to prevent VTE while in the hospital by taking these actions: ??? Get out of bed and walk. Ask your health care provider if this is safe for you to do. ??? Ask your health care provider if you should use a sequential compression device (SCD). This is a machine that pumps air into compression sleeves that are wrapped around your legs. ??? Ask your health care provider if you should wear tight, elastic stockings that apply pressure to the lower legs (compression stockings). Compression stockings are sometimes used with SCDs. At home after surgery Understand that you have an increased risk for VTE for the first 4???6 weeks after surgery. During this time: ??? Avoid traveling for more than 4 hours. If you must travel after surgery, ask your health care provider about additional preventive actions that you can take. ??? Avoid sitting or lying still for too long. If possible, get up and walk around one time every hour. Ask your health care provider when this is safe for you to do. While traveling Travel that takes more than 4 hours can increase the risk of a VTE. To prevent VTE when traveling: ??? Exercise your arms and legs every hour. You can do this by standing, stretching, and bending and straightening your arms and legs. If you are traveling by airplane, train, or bus, walk up and down the aisle as often as possible to get your blood moving. If you are traveling by car, stop and get out of the car every hour to exercise your arms and legs and stretch. Other types of exercise might include: ? Keeping your feet flat on the ground and raising your toes. ? Switching from tightening the muscles in your calves and thighs to relaxing those same muscles while you are sitting. ? Pointing and flexing your feet at the ankle joints while you are sitting. ??? Drink enough water to keep your urine pale yellow. ??? Avoid drinking alcohol during long travel. Generally, it is not recommended that you take medicines to prevent DVT during routine travel. Activity ??? Stay active. Avoid sitting or lying in bed for long periods of time without moving your arms and legs. ??? Exercise by moving your arms and legs for 30 minutes or more every day. ??? Try not to bump or injure your legs. ??? Avoid crossing your legs when you are sitting. Lifestyle ??? Do not use any products that contain nicotine or tobacco, such as cigarettes, e-cigarettes, and chewing tobacco. If you need help quitting, ask your health care provider. This is especially important if you take estrogen medicines. ??? Avoid wearing tight clothing around your legs or waist. General information ??? Wear compression stockings as told by your health care provider. These stockings help to prevent blood clots and reduce swelling in your legs. Do not let them bunch up when you are wearing them. ??? Avoid using medicines that contain estrogen if you do not need them. These include control pills and hormone replacement therapy. ??? Do not use pillows under your knees while lying down unless told by your health care provider. ??? Maintain a healthy weight. Where to find more information ??? Centers for Disease Control and Prevention: www.cdc.gov ??? [place] [employer]: www.heart.org Get help right away if: ??? You have chest pain or shortness of breath. ??? You cough up blood. ??? You have a rapid or irregular heartbeat. ??? You feel light-headed or dizzy. ??? You have new or increased pain, swelling, or redness in an arm or leg. ??? You have numbness or tingling in an arm or leg. ??? You have blood in your vomit, stool, or urine. These symptoms may represent a serious problem that is an emergency. Do not wait to see if the symptoms will go away. Get medical help right away. Call your local emergency services (911 in the [place] Do not drive yourself to the hospital. Summary ??? Venous thromboembolism (VTE) is a condition in which a blood clot (thrombus)develops in the body. A deep vein thrombosis (DVT) is a blood clot that usually occurs in a deep vein in the leg or the pelvis, but it can also occur in the arm. ??? VTE is a serious health condition that can cause disability or . It is very important to get help right away. Do not ignore your symptoms. ??? If you are traveling, exercise your arms and legs every hour. ??? Stay active to help prevent blood clots. Avoid sitting or lying in bed for long periods of time without moving your arms and legs. This information is not intended to replace advice given to you by your health care provider. Make sure you discuss any questions you have with your health care provider. Document Released: 09/14/2010 Document Revised: 01/15/2020 Document Reviewed: 12/04/2019 [employer] Patient Education ?? 2020 [employer] Emergency Awareness and Preventative Care STROKE [...] Assistance with quitting is available by contacting 3-823-BXFZNOW. This is a free resource providing counseling, [...] This Visit (last charted value for your 08/06/2020 visit) Hematology 08/05/2020 9:31 AM WBC: 4.4 K/uL -- Normal range between ( 3.6 and 9.5 ) RBC: 4.60 Million/uL -- Normal range between ( 4.20 and 5.70 ) Hct: 41.4 % -- Normal range between ( 40.1 and 51.0 ) Hgb: 13.3 g/dL -- Normal range between ( 13.5 and 17.3 ) Platelet Count: 122 K/uL -- Normal range between ( 163 and 369 ) MCH: 28.9 pg -- Normal range between ( 25.6 and 32.2 ) MCHC: 32.1 Gram/dL -- Normal range between ( 32.2 and 36.5 ) MCV: 90.0 fL -- Normal range between ( 79.0 and 94.8 ) Slide Review: No RDW: 14.0 % -- Normal range between ( 11.7 and 14.9 ) MPV: 12.7 fL -- Normal range between ( 9.4 and 12.4 ) 08/04/2020 12:20 PM Eos %: 0.9 % -- Normal range between ( 0.0 and 7.0 ) Billings #: 0.56 K/uL -- Normal range between ( 0.16 and 1.00 ) Eos #: 0.05 x10(3)/uL -- Normal range between ( 0.00 and 0.80 ) Billings %: 10.1 % -- Normal range between ( 3.0 and 9.0 ) Baso %: 0.2 % -- Normal range between ( 0.0 and 1.5 ) Baso #: 0.01 x10(3)/uL -- Normal range between ( 0.00 and 0.20 ) Neut %: 56.9 % -- Normal range between ( 34.0 and 71.0 ) Neut #: 3.17 K/uL -- Normal range between ( 1.56 and 6.13 ) Lymph %: 30.5 % -- Normal range between ( 19.3 and 53.1 ) Lymph #: 1.70 x10(3)/uL -- Normal range between ( 1.00 and 3.90 ) IG#: 0.08 x10(3)/uL -- Normal range between ( 0.00 and 0.05 ) IG%: 1.40 % -- Normal range between ( 0.00 and 0.60 ) Urinalysis 08/04/2020 4:31 PM Ur RBC: 2-5 /HPF Urine Nitrite: Negative Urine Leukocyte Esterase: Negative Urine Appearance: Cloudy Urine Glucose Dipstick: Negative Urine Blood Dipstick: Small Urine Urobilinogen Dipstick: 0.2 EU/dL Urine Protein Dipstick: Negative Ur Amorph: Trace Ur Bacteria: Trace Ur Squamous Epithelial Cells: 0-2 /HPF Urine Color: Yellow Ur WBC: 0-2 /HPF Urine Ketones Dipstick: Negative Ur Mucous: Trace Urine pH Dipstick: 5.5 -- Normal range between ( 6.0 and 8.0 ) Ur Hyaline Casts: 0-2 /LPF Urine Bilirubin Dipstick: Negative Urine Specific [place]: 1.023 -- Normal range between ( 1.005 and 1.030 ) Urine Type.: U CleanCat General Chemistry 08/06/2020 10:30 AM Glucose POC2: 201 mg/dL -- Normal range between ( 70 and 110 ) Device Comment 1: Device Comment 1 08/05/2020 9:31 AM Creatinine Level: 1.20 mg/dL -- Normal range between ( 0.70 and 1.30 ) Sodium Level: 139 mmol/L -- Normal range between ( 136 and 146 ) Potassium Level: 3.8 mmol/L -- Normal range between ( 3.5 and 5.1 ) Chloride Level: 107 mmol/L -- Normal range between ( 102 and 112 ) Carbon Dioxide Level: 30 mmol/L -- Normal range between ( 21 and 32 ) Anion Gap: 6 -- Normal range between ( 9 and 20 ) Bilirubin Total: 0.5 mg/dL -- Normal range between ( 0.2 and 1.2 ) A/G Ratio: 0.9 -- Normal range between ( 1.1 and 2.5 ) ALT: 25 Units/Liter -- Normal range between ( 16 and 61 ) AST: 27 Units/Liter -- Normal range between ( 5 and 37 ) Globulin: 3.4 Gram/dL -- Normal range between ( 1.5 and 4.5 ) Alk Phos: 62 Units/Liter -- Normal range between ( 27 and 136 ) Bun/Creatinine: 22.5 -- Normal range between ( 8.0 and 20.0 ) Calcium Level: 8.6 mg/dL -- Normal range between ( 8.4 and 10.1 ) eGFR : >60 mL/min/1.73m2 eGFR NonAfrican: 58 mL/min/1.73m2 Glucose Level: 106 mg/dL -- Normal range between ( 74 and 106 ) Blood Urea Nitrogen: 27 mg/dL -- Normal range between ( 7 and 22 ) Protein Total: 6.6 Gram/dL -- Normal range between ( 6.4 and 8.2 ) Albumin Level: 3.2 Gram/dL -- Normal range between ( 3.4 and 5.0 ) 08/04/2020 1:57 PM Lactic Acid Level: 0.9 mmol/L -- Normal range between ( 0.4 and 2.0 ) Cardiac Specific Markers 08/04/2020 9:47 PM Troponin I Ultra: 3.120 ng/mL -- Normal range between ( 0.015 and 0.045 ) 08/04/2020 1:57 PM CK MB: 10.20 ng/mL -- Normal range between ( 0.50 and 3.60 ) CK: 130 Units/Liter -- Normal range between ( 39 and 308 ) MBI: 7.8 Coagulation 08/06/2020 4:04 AM INR: 3.5 -- Normal range between ( 0.9 and 1.1 ) PT: 37.0 Second(s) -- Normal range between ( 9.6 and 12.0 ) 08/04/2020 12:20 PM PTT: 59.2 Second(s) -- Normal range between ( 24.0 and 34.0 ) Endocrinology 08/04/2020 12:22 PM Procalcitonin: <0.25 ng/mL -- Normal range between ( 0.00 and 2.00 ) Diagnostic Radiology 08/04/2020 12:54 PM CR Chest 1 Vw Portable: CR Chest 1 Vw Portable Echo 08/04/2020 1:14 PM EC Echo Complete: EC Echo Complete Patient Name:SHIRA GARZA I have received and understand this information and was given the opportunity to ask questions. Patient/Senior Loan Officer Name: Patient/Senior Loan Officer Signature: Relationship to Patient: Clinician/Hospital Senior Loan Officer Signature: Date: documented in this encounter Plan of Treatment Not on file documented as of this encounter Visit Diagnoses Not on filedocumented in this encounter
--- OUTSIDE RECORDS SUMMARY | 2025-03-28 10:43 | XMS_ITS | Encounter Summary ---
Author Organization [employer] Address [address] [place] [id number] Care Team Providers Care Guest Experience Manager Name Role Phone Unavailable Primary Care Provider Unavailabl e Encounter Details Date Type Department Care Team (Late st Contact Info) Description 10/26/2019 Transcribed Document [facility] [place] [address] [place] [address] ProviderPrasanth MD [facility] [place], [place] [id number] Social History Tobacco Use Types Packs/Day Years Used Date Smoking Tobacco: Never Assessed Sex and Gender Information Value Date Recorded Sex Assigned at Not on file Legal Sex Male 6:49 PM CDT Gender Identity Not on file Sexual Orientation Not on file documented as of this encounter Miscellaneous Notes * Cerner Conversion Note - Historical ProviderMD - 10/26/2019 4:21 PM THERMAL CUTTER HELPER Education-General Entered On: 10/30/2019 4:52 EST Performed On: 10/26/2019 16:21 EST by Rimma Blackmon, RN Teaching/Learning Assessment Barriers To Learning : None evident Individuals Taught : Patient, Family member Learning Style Preferences Patient : None Rimma Blackmon RN - 10/30/2019 4:52 EST documented in this encounter Plan of Treatment Not on file documented as of this encounter Visit Diagnoses Not on filedocumented in this encounter
--- OUTSIDE RECORDS SUMMARY | 2025-03-28 10:43 | XMS_ITS | Encounter Summary ---
Author Organization [employer] Address [address] [place] [address] Care Team Providers Care Transfer And Pumphouse Operator Chief Name Role Phone Unavailable Primary Care Provider Unavailabl e Encounter Details Date Type Department Care Team (Late st Contact Info) Description 06/04/2021 Transcribed Document [facility] [place] [facility] [place] [address] ProviderPrasanth MD [facility] [place] [address] Social History Tobacco Use Types Packs/Day Years Used Date Smoking Tobacco: Never Assessed Sex and Gender Information Value Date Recorded Sex Assigned at Not on file Legal Sex Male 6:49 PM CDT Gender Identity Not on file Sexual Orientation Not on file documented as of this encounter Miscellaneous Notes * Cerner Conversion Note - Prasanth ProviderMD - 06/04/2021 9:00 AM CDT NIH Stroke Scale *Q Entered On: 06/04/2021 8:20 EDT Performed On: 06/04/2021 9:00 EDT by Chang Medrano, Inform[employer]a-Student Nurse NIH Stroke Scale *Q NIH Assessment Interval : Other: 60 hours Time of Assessment : 06/04/2021 8:19 EDT NIH Level of Consciousness (1A) : [...] NIH Scale Score : 0 Chang Medrano, In[employer]-Student Nurse - 06/04/2021 8:19 EDT Electronically signed by Nikita, [facility] Conversion Truck Service Technician Cerner at 01/26/2023 9:01 PM CDT documented in this encounter Plan of Treatment Not on file documented as of this encounter Visit Diagnoses Not on filedocumented in this encounter
--- OUTSIDE RECORDS SUMMARY | 2025-03-28 10:43 | XMS_ITS | Encounter Summary ---
Author Organization [employer] Address [address] [place] [address] Care Team Providers Care Real Estate Office Supervisor Name Role Phone Unavailable Primary Care Provider Unavailabl e Encounter Details Date Type Department Care Team (Late st Contact Info) Description 10/29/2019 Transcribed Document [facility] [place] [facility] [address] [place] [address] Jamshid Holman MD [address] [place] [address] Social History Tobacco Use Types Packs/Day Years Used Date Smoking Tobacco: Never Assessed Sex and Gender Information Value Date Recorded Sex Assigned at Not on file Legal Sex Male 6:49 PM CDT Gender Identity Not on file Sexual Orientation Not on file documented as of this encounter Miscellaneous Notes * Cerner Conversion Note - Jamshid Holman MD - 10/29/2019 11:36 AM EST DATE OF SERVICE: 10/29/2019 INDICATION: An 84-year-old male with severe aortic valve stenosis. He has undergone previous balloon aortic valvuloplasty. He was evaluated by the multidisciplinary heart valve team and determined to be a good candidate for TAVR. PROCEDURES PERFORMED: 1. Transcatheter aortic valve replacement using a 29 mm Darien 3 bioprosthesis via closed transfemoral approach. 2. Temporary transvenous pacemaker insertion. 3. Supravalvular aortography. OPERATORS: 1. Michael Fontana MD. 2. Jamshid Holman MD. 3. Roberta Quinonez MD. PROCEDURAL DETAILS: 1. The patient was brought to the hybrid operating room and placed under conscious sedation managed by the anesthesia staff physician. 2. Using a micropuncture access needle, a 4-Indonesian sheath was inserted in the right common femoral artery. Angiography revealed appropriate sheath position and arterial size for a large sheath insertion. A 6-Indonesian sheath was inserted. The 6-Indonesian was exchanged for a single Perclose deployed in a pre-close technique and the sheath upsized to 8-Indonesian. Of note, the first two Perclose catheters missed but a wire was inserted and a third Perclose took appropriately. A 6-Indonesian sheath was inserted in the left femoral artery and a 6-Indonesian sheath was inserted in the left femoral vein. Through the venous sheath, a 5-Indonesian transvenous pacemaker was inserted and advanced to the right ventricular free wall. Pacing capture was confirmed. Through the 6-Indonesian arterial sheath, a 5-Indonesian pigtail catheter was inserted and advanced to the right coronary cusp. Supravalvular aortography was performed. 3. The 8-Indonesian sheath was exchanged over a support wire for a 16-Indonesian Mancia eSheath which was secured with suture. Heparin was administered to achieve a therapeutic ACT. 4. Through the Mancia sheath, a 6-Indonesian AL1 diagnostic catheter and a straight-tipped 0.035 inch guidewire were used to cross the aortic valve. This was exchanged for a pigtail catheter over a long J-tip safety wire and the ventricular apex was selected. Through the pigtail catheter, a 0.035 inch Amplatz extra-stiff wire with an exaggerated distal curve was positioned in the ventricular apex. 5. Transcatheter aortic valve insertion. Over the support wire, the valve delivery catheter was inserted. In the descending thoracic aorta, the deployment balloon was positioned within the valve frame and the flex catheter flexed. The catheter was easily advanced over the aortic arch and across the valve. The position was adjusted. Angiography was performed. 6. Under rapid ventricular pacing, the valve was deployed with prompt tenriism of stable hemodynamics and rhythm. The delivery balloon was retracted into the aortic arch and the wire centered. Angiography showed no immediate complications and no significant aortic regurgitation. Transthoracic echo was performed and showed no immediate complications. The valve delivery catheter and the delivery wire were removed. The transvenous pacemaker and pigtail catheter were removed. The Mancia sheath was removed and the single Perclose was tightened with good hemostasis. A 6-Indonesian arterial sheath was removed and a Mynx closure was deployed with good hemostasis. The venous sheath was removed and manual compression was held with good hemostasis. 7. The patient was transferred to the postanesthesia care unit in stable condition. 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 /[id number] MD LAKISHA Calixto/ASHLEY / LAKISHA / MODL /[id number] documented in this encounter Plan of Treatment Not on file documented as of this encounter Visit Diagnoses Not on filedocumented in this encounter
--- OUTSIDE RECORDS SUMMARY | 2025-03-28 10:43 | XMS_ITS | Encounter Summary ---
Author Organization [employer] Address [address] [place] [address] Care Team Providers Care Rn Employee Health Name Role Phone Unavailable Primary Care Provider Unavailabl e Encounter Details Date Type Department Care Team (Late st Contact Info) Description 06/04/2021 Transcribed Document [facility] [place] [facility] [place] [address] ProviderPrasanth MD [address] [place] [id number] Social History Tobacco Use Types Packs/Day Years Used Date Smoking Tobacco: Never Assessed Sex and Gender Information Value Date Recorded Sex Assigned at Not on file Legal Sex Male 6:49 PM CDT Gender Identity Not on file Sexual Orientation Not on file documented as of this encounter Miscellaneous Notes * Cerner Conversion Note - Prasanth ProviderMD - 06/04/2021 3:42 PM CDT Nursing Discharge Summary Entered On: 06/04/2021 15:45 EDT Performed On: 06/04/2021 15:42 EDT by Chang Medrano Rand Sewer-Student Nurse Discharge Documentation Discharge Date/Time : 06/04/2021 13:00 EDT Patient Disposition, General : Discharge Discharge To : Home with ambulatory/outpatient follow-up Mode Of Departure, General Discharge : Private vehicle Accompanied By, Discharge : Spouse Personal Belongings With Patient : Yes Prescriptions Given to Patient : Yes Discharge Instructions Reviewed With, Opportunity For Questions Given : Patient, Spouse Patient Education Completed : Yes Number of Prescriptions Given : 1 Teaching Method : Explanation, Printed materials, Teach back method Teaching Evaluation : Verbalizes understanding Discharge, Comment : [facility] at [facility] to recieve a months worth of free samples of Eliquis to take since the patient had said he would not pay for Eliquis due to the smith. He galindo use the free samples until he se Dr. Layne on 06/09 and discusses with him whether or not to continue the Eliquis. Chang Medrano, Rand Sewer-Student Nurse - 06/04/2021 15:42 EDT documented in this encounter Plan of Treatment Not on file documented as of this encounter Visit Diagnoses Not on filedocumented in this encounter
--- OUTSIDE RECORDS SUMMARY | 2025-03-28 10:43 | XMS_ITS | Encounter Summary ---
Author Organization [employer] Address [address] [place] [address] Care Team Providers Care Customer Sales Service Manager Name Role Phone Unavailable Primary Care Provider Unavailabl e Encounter Details Date Type Department Care Team (Late st Contact Info) Description 06/04/2021 Transcribed Document [facility] [place] [facility] [place] [address] ProviderPrasanth MD [address] [place] [id number] Social History Tobacco Use Types Packs/Day Years Used Date Smoking Tobacco: Never Assessed Sex and Gender Information Value Date Recorded Sex Assigned at Not on file Legal Sex Male 6:49 PM CDT Gender Identity Not on file Sexual Orientation Not on file documented as of this encounter Miscellaneous Notes * Cerner Conversion Note - Prasanth ProviderMD - 06/04/2021 5:00 AM CDT Chart Check - Review Order Profile Entered On: 06/04/2021 6:59 EDT Performed On: 06/04/2021 5:00 EDT by Vivien Rojas RN Chart Check Powerplans Initiated/Discontinued as Appropriate : Yes All Active Orders Reviewed : Yes Vivien Rojas RN - 06/04/2021 6:59 EDT Electronically signed by Nikita [facility] Conversion Rn Plastics Cerner at 01/26/2023 8:53 PM CDT documented in this encounter Plan of Treatment Not on file documented as of this encounter Visit Diagnoses Not on filedocumented in this encounter
--- OUTSIDE RECORDS SUMMARY | 2025-03-28 10:43 | XMS_ITS | Encounter Summary ---
Author Organization [employer] Address [address] [place] [address] Care Team Providers Care Train Brake Operator Name Role Phone Unavailable Primary Care Provider Unavailabl e Encounter Details Date Type Department Care Team (Late st Contact Info) Description 06/03/2021 Transcribed Document [facility] [place] [facility] [place] [address] ProviderPrasanth MD [facility] [place] [address] Social History Tobacco Use Types Packs/Day Years Used Date Smoking Tobacco: Never Assessed Sex and Gender Information Value Date Recorded Sex Assigned at Not on file Legal Sex Male 6:49 PM CDT Gender Identity Not on file Sexual Orientation Not on file documented as of this encounter Miscellaneous Notes * Cerner Conversion Note - Prasanth ProviderMD - 06/03/2021 9:00 PM CDT NIH Stroke Scale *Q Entered On: 06/03/2021 20:29 EDT Performed On: 06/03/2021 21:00 EDT by Vivien Rojas RN NIH Stroke Scale *Q NIH Assessment Interval : 24 hours post onset of symptoms ??20 minutes Time of Assessment : 06/03/2021 20:28 EDT NIH Clinician Administering Scale : Vivien Rojas RN NIH Level of Consciousness (1A) : Alert [...] No abnormality NIH Scale Score : 0 Vivien Rojas RN - 06/03/2021 20:28 EDT documented in this encounter Plan of Treatment Not on file documented as of this encounter Visit Diagnoses Not on filedocumented in this encounter
--- OUTSIDE RECORDS SUMMARY | 2025-03-28 10:43 | XMS_ITS | Encounter Summary ---
Author Organization [employer] Address [address] [place] [address] Care Team Providers Care K 12 Principal Name Role Phone Unavailable Primary Care Provider Unavailabl e Encounter Details Date Type Department Care Team (Late st Contact Info) Description 09/26/2019 Transcribed Document [facility] Cardiology [address] [place] [id number] Lee Ann Quinonez MD [address] [facility] [address] [place] [address] Social History Tobacco Use Types Packs/Day Years Used Date Smoking Tobacco: Never Assessed Sex and Gender Information Value Date Recorded Sex Assigned at Not on file Legal Sex Male 6:49 PM CDT Gender Identity Not on file Sexual Orientation Not on file documented as of this encounter Miscellaneous Notes * Cerner Conversion Note - Lee Ann Quinonez MD - 09/26/2019 8:47 AM EST Patient: SHIRA GARZA HORACIO Age: 84 years Sex: Male : 1935 Associated Diagnoses: None Author: LEE ANN QUINONEZ MD-CAR BASIC Cardiology: Clinic/ [facility] for Subjective Says that he is breathing better. Ready for discharge home. Health Status Current medications: (Selected) Inpatient Medications Ordered Normal Saline Flush: 10 mL, IV Push, Q12H Normal Saline Flush: 10 mL, IV Push, Q12H Normal Saline Flush: 10 mL, IV Push, See Comment, PRN: IV Use Normal Saline Flush: 10 mL, IV Push, See Comment, PRN: IV Use aspirin: 81 mg, Oral, Daily lisinopril: 20 mg, Oral, Daily multivitamin: 1 Tab, Oral, Daily, Home Medications (5) Active aspirin 81 mg oral tablet 81 mg = 1 Tab, Oral, Daily atorvastatin 20 mg, Oral, Weekly isosorbide mononitrate 30 mg oral tablet, extended release 30 mg = 1 Tab, Oral, QAM lisinopril 20 mg oral tablet 20 mg = 1 Tab, Oral, Daily multivitamin , Daily Problem list: Active Problems (9) Aortic stenosis At risk for sleep apnea Atrial flutter Benign neoplastic disease CAD (coronary artery disease) Hyperlipidemia Inguinal hernia Renal calculus Right bundle branch block Objective VS/Measurements Vitals Signs (last 24 hrs) Last Charted Minimum Maximum Temp 97.6 (SEP 26 06:32) 97.6 (SEP 26:32) 98.1 (SEP 25 08:33) Mon HR 58 (SEP 26 06:) 44 (SEP 25 11:35) 70 (SEP 25 16:00) Periph HR 53 (SEP 25 08:33) 53 (SEP 25 08:33) 53 (SEP 25 08:33) Resp Rate 16 (SEP 26 06:32) L 11 (SEP 25 11:35) H 26 (SEP 25 13:15) SBP H 167 (SEP 26 06:32) 122 (SEP 25 12:00) H 177 (SEP 25 23:09) DBP 89 (SEP 26 06:32) L 57 (SEP 25 12:00) H 104 (SEP 26 02:36) MAP 104 (SEP 26 06:32) 82 (SEP 25 12:00) 128 (SEP 25 23:09) SpO2 95 (SEP 26 06:32) L 92 (SEP 25 17:15) 98 (SEP 26 02:36) General: Alert and oriented, No acute distress. Eye: Vision unchanged. HENT: Normocephalic. Neck: No jugular venous distention. Respiratory: Lungs are clear to auscultation, Respirations are non-labored, Breath sounds are equal, Symmetrical chest wall expansion. Cardiovascular: Normal rate, Regular rhythm, Good pulses equal in all extremities, Normal peripheral perfusion, No edema, + Systolic ejection murmur right upper sternal border. Gastrointestinal: Normal bowel sounds. Musculoskeletal: Normal range of motion, Normal strength, No deformity. Integumentary: Warm, Dry, Bertha, No rash. Neurologic: Alert, Oriented, No focal deficits. Psychiatric: Cooperative, Appropriate mood & affect. Results Review SEP 26 06:44 140 111 H 29 / H 108 3.7 27 1.00 \ SEP 26 06:44 \ 14.1 / 5.4 171 / 42.5 \ BAV 09/25/19 Impression and Plan IMPRESSION: Severe Aortic Stenosis s/p BAV 09/25/19 TAVR workup underway CABG H/O CABG x5 in 2007 HTN HLD PLAN; 09/26/19 DC home today after he has completed TAVR pre-op testing. F/U as scheduled. 09/25/19 - BAV documented in this encounter Plan of Treatment Not on file documented as of this encounter Visit Diagnoses Not on filedocumented in this encounter
--- OUTSIDE RECORDS SUMMARY | 2025-03-28 10:43 | XMS_ITS | Encounter Summary ---
Author Organization [employer] Address [address] [place] [address] Care Team Providers Care Receiving Coordinator Name Role Phone Unavailable Primary Care Provider Unavailabl e Encounter Details Date Type Department Care Team (Late st Contact Info) Description 08/05/2020 Transcribed Document [facility] [place] Family Medicine [address] [place] [address] ProviderPrasanth MD [address], [place] [id number] Social History Tobacco Use Types Packs/Day Years Used Date Smoking Tobacco: Never Assessed Sex and Gender Information Value Date Recorded Sex Assigned at Not on file Legal Sex Male 6:49 PM CDT Gender Identity Not on file Sexual Orientation Not on file documented as of this encounter Miscellaneous Notes * Cerner Conversion Note - Prasanth ProviderMD - 08/05/2020 2:39 PM CDT UM Authorization Entered On: 08/05/2020 14:39 EDT Performed On: 08/05/2020 14:39 EDT by DIVINA HUGHES Rn-Utilization Review Primary Insurance Authorization Authorization and Policy Numbers : Insurance 1 Health Plan: MEDICARE Policy Number: [id number] Authorization Number: Insurance Primary Name : MEDICARE Policy Number: [id number] Historical Authorization Comments-Primary : No Authorization Comments Found DIVINA HUGHES Rn-Utilization Review - 08/05/2020 14:39 EDT Electronically signed by Nikita [facility] Conversion Information Services Vice President Richard at 01/26/2023 9:10 PM CDT documented in this encounter Plan of Treatment Not on file documented as of this encounter Visit Diagnoses Not on filedocumented in this encounter
--- OUTSIDE RECORDS SUMMARY | 2025-03-28 10:43 | XMS_ITS | Encounter Summary ---
Author Organization [employer] Address [address] [place] [address] Care Team Providers Care Encyclopedia Research Worker Name Role Phone Unavailable Primary Care Provider Unavailabl e Encounter Details Date Type Department Care Team (Late st Contact Info) Description 10/29/2019 Transcribed Document [facility] [place] [facility] [address] [place] [address] ProviderPrasanth MD [facility] [place] [address] Social History Tobacco Use Types Packs/Day Years Used Date Smoking Tobacco: Never Assessed Sex and Gender Information Value Date Recorded Sex Assigned at Not on file Legal Sex Male 6:49 PM CDT Gender Identity Not on file Sexual Orientation Not on file documented as of this encounter Miscellaneous Notes * Cerner Conversion Note - Historical ProviderMD - 10/29/2019 9:12 AM [facility] Education-Diabetes Topics Entered On: 10/30/2019 4:51 EST Performed On: 10/29/2019 9:12 EST by Rimma Blackmon, RN Teaching/Learning Assessment Barriers To Learning : None evident Learning Style Preferences Patient : None Rimma Blackmon, RN - 10/30/2019 4:51 EST documented in this encounter Plan of Treatment Not on file documented as of this encounter Visit Diagnoses Not on filedocumented in this encounter
--- OUTSIDE RECORDS SUMMARY | 2025-03-28 10:43 | XMS_ITS | Encounter Summary ---
Author Organization [employer] Address [address] [place] [id number] Care Team Providers Care Emt Driver Name Role Phone Unavailable Primary Care Provider Unavailabl e Encounter Details Date Type Department Care Team (Late st Contact Info) Description 06/04/2021 Transcribed Document [facility] [place] [facility] [place] [address] ProviderPrasanth MD [address] [place] [id number] Social History Tobacco Use Types Packs/Day Years Used Date Smoking Tobacco: Never Assessed Sex and Gender Information Value Date Recorded Sex Assigned at Not on file Legal Sex Male 6:49 PM CDT Gender Identity Not on file Sexual Orientation Not on file documented as of this encounter Miscellaneous Notes * Cerner Conversion Note - Prasanth Sanchez MD - 06/04/2021 11:25 AM CDT [facility] [place] [address] SHIRA GARZA HORACIO :1935 Visit Time:06/02/2021 Your Visit Summary Your Care Team Admitting Physician - CJ AVITIA MD-INT Attending Physician - CJ AVITIA MD-INT Primary Care Physician - MARTHA BURRELL MD-INT Referring Physician - JOHN MITCHELL MD Your Diagnosis Chest pain Chest pain, Chest pain, unspecified, Chest pain, unspecified Elevated troponin NSTEMI (non-ST elevated myocardial infarction) TIA due to embolism Weakness, Weakness Weakness These Are Your Goals Patient Discharge Goal Patient Discharge Goal: Home Discharge Vitals Temperature 36.7 ??C Heart Rate (Monitored) 57 Respiratory Rate 17 Blood Pressure 103/65 What to do next Follow-Up Appointments Follow Up with MARTHA BURRELL MD-INT When 06/10/2021 02:00 PM EDT Comments PCP follow up Appointment has been made with Rita Gibson. Bring discharge instructions with you Where: [address] [place] [address]- Follow Up with ABEBA HOOKS When 06/08/2021 03:15 PM EDT Comments Appointment has been made Where: [address] [place] [address]- Business (1) Medications What How Much When Instructions Next Dose apixaban (Eliquis 5 mg oral tablet) 1 Tablet(s) Oral Interval Every 12 Hours Pickup at [facility] this evening aspirin (aspirin 81 mg oral tablet, chewable) 1 Tablet(s) Oral Every Day Pickup at [facility] tomorrow atorvastatin (Lipitor 20 mg oral tablet) 1 Tablet(s) Oral At Bedtime Duration: 30 Day(s) Please Note: Your Lipitor dose has changed to 20 mg oral at bedtime Pickup at [facility] at bedtime metoprolol (Metoprolol Succinate ER 25 mg oral tablet, extended release) 1 Tablet(s) Oral Every Day tomorrow hydrochlorothiazide-lisinopril (hydroCHLOROthiazide-lisinopril 12.5 mg-20 mg oral tablet) 1 Tablet(s) Oral Every Day tomorrow multivitamin 1 Tablet(s) Oral Every Day tomorrow Pharmacy Information [facility]: [address] [facility] [address] [place], [place] [id number] [phone] Take your medications faithfully. Do NOT skip [...] (Unknown) Immunizations This Visit No Immunizations Found Stroke/TIA Instructions Individualized Stroke Risk Factors Individualized Stroke Risk Factors *Q: Coronary artery disease, Hypertension/High blood pressure Stroke/TIA Signs/Symptoms to Report Immediately: Sudden onset difficulty speaking, Sudden onset difficulty understanding speech, Sudden onset change in vision, Sudden onset weakness particulary on one side of the body, Sudden onset numbness/tingling, Sudden severe headache, Sudden dizziness or trouble with gait, Call : EMS activation is crucial Mutually Agreed Upon Goals Blood Pressure Management: I will ask my physician about my blood pressure goal, I will record my BP daily and take a log to MD appts, I will purchase a blood pressure machine Blood Pressure Management: (Cont): I will not change or stop any meds w/o instruction from MD My LDL Level: My LDL Level: Reduce Cholesterol/Diet: I will take cholesterol reducing medications as prescribed Anticoagulant/Anti-Platelet/Medications: I will not stop taking my meds unless instructed by MD Education Materials Bleeding Precautions When on Anticoagulant Therapy, Adult Anticoagulant therapy, also called blood thinner therapy, is medicine that helps to prevent and treat blood clots. The medicine works by stopping blood clots from forming or growing. Blood clots that form in your blood vessels can be dangerous. They can break loose and travel to the heart, lungs, or brain. This increases the risk of a heart attack, stroke, or blocked lung artery (pulmonary embolism). Anticoagulants also increase the risk of bleeding. Try to protect yourself from cuts and other injuries that can cause bleeding. It is important to take anticoagulants exactly as told by your health care provider. Why do I need to be on anticoagulant therapy? You may need this medicine if you are at risk of developing a blood clot. Conditions that increase your risk of a blood clot include: ??? Being born with heart disease or a heart malformation (congenital heart disease). ??? Developing heart disease. ??? Having had surgery, such as valve replacement. ??? Having had a serious accident or other type of severe injury (trauma). ??? Having certain types of cancer. ??? Having certain diseases that can increase blood clotting. ??? Having a high risk of stroke or heart attack. ??? Having atrial fibrillation (AF). What are the common anticoagulant medicines? There are several types of anticoagulant medicines. The most common types are: ??? Medicines that you take by mouth (oral medicines), such as: ? Warfarin. ? Novel oral anticoagulants (NOACs), such as: ? Direct thrombin inhibitors (dabigatran). ? Factor Xa inhibitors (apixaban, edoxaban, and rivaroxaban). ??? Injections, such as: ? Unfractionated heparin. ? Low molecular weight heparin. These anticoagulants work in different ways to prevent blood clots. They also have different risks and side effects. What do I need to remember while on anticoagulant therapy? Taking anticoagulants ??? Take your medicine at the same time every day. If you forget to take your medicine, take it as soon as you remember. Do not double your dosage of medicine if you miss a whole day. Take your normal dose and call your health care provider. ??? Do not stop taking your medicine unless your health care provider approves. Stopping the medicine can increase your risk of developing a blood clot. Taking other medicines ??? Take jflr-sdu-egqvwia and prescriptions medicines only as told by your health care provider. ??? Do not take qmuc-khx-cuofwue NSAIDs, including aspirin and ibuprofen, while you are on anticoagulant therapy. These medicines increase your risk of dangerous bleeding. ??? Get approval from your health care provider before you start taking any new medicines, vitamins, or herbal products. Some of these could interfere with your therapy. General instructions ??? Keep all follow-up visits as told by your health care provider. This is important. ??? If you are or trying to get , talk with a health care provider about anticoagulants. Some of these medicines are not safe to take during . ??? Tell all health care providers, including your dentist, that you are on anticoagulant therapy. It is especially important to tell providers before you have any surgery, medical procedures, or dental work done. What precautions should I take? Be very careful when using knives, scissors, or other sharp objects. ??? Use an electric razor instead of a blade. ??? Do not use toothpicks. ??? Use a soft-bristled toothbrush. [place] your teeth gently. ??? Always wear shoes outdoors and wear slippers indoors. ??? Be careful when cutting your fingernails and toenails. ??? Place bath mats in the bathroom. If possible, install handrails as well. ??? Wear gloves while you do yard work. ??? Wear your seat belt. ??? Prevent falls by removing loose rugs and extension cords from areas where you walk. Use a cane or walker if you need it. ??? Avoid constipation by: ? Drinking enough fluid to keep your urine clear or pale yellow. ? Eating foods that are high in fiber, such as fresh fruits and vegetables, whole grains, and beans. ? Limiting foods that are high in fat and processed sugars, such as fried and sweet foods. ??? Do not play contact sports or participate in other activities that have a high risk for injury. What other precautions are important if on warfarin therapy? If you are taking a type of anticoagulant called warfarin, make sure you: ??? Work with a diet and internet ecommerce specialist (dietitian) to make an eating plan. Do not make any sudden changes to your diet after you have started your eating plan. ??? Do not drink alcohol. It can interfere with your medicine and increase your risk of an injury that causes bleeding. ??? Get regular blood tests as told by your health care provider. What are some questions to ask my health care provider? Why do I need anticoagulant therapy? What is the best anticoagulant therapy for my condition? How long will I need anticoagulant therapy? What are the side effects of anticoagulant therapy? When should I take my medicine? What should I do if I forget to take it? Will I need to have regular blood tests? Do I need to change my diet? Are there foods or drinks that I should avoid? What activities are safe for me? What should I do if I want to get ? Contact a health care provider if: ??? You miss a dose of medicine: ? And you are not sure what to do. ? For more than one day. ??? You have: ? Menstrual bleeding that is heavier than normal. ? Bloody or brown urine. ? Easy bruising. ? Black and tarry stool or bright red stool. ? Side effects from your medicine. ??? You feel weak or dizzy. ??? You become . Get help right away if: ??? You have bleeding that will not stop within 20 minutes from: ? The nose. ? The gums. ? A cut on the skin. ??? You have a severe headache or stomachache. ??? You vomit or cough up blood. ??? You fall or hit your head. Summary ??? Anticoagulant therapy, also called blood thinner therapy, is medicine that helps to prevent and treat blood clots. ??? Anticoagulants work in different ways to prevent blood clots. They also have different risks and side effects. ??? Talk with your health care provider about any precautions that you should take while on anticoagulant therapy. This information is not intended to replace advice given to you by your health care provider. Make sure you discuss any questions you have with your health care provider. Document Revised: 01/16/2020 Document Reviewed: 12/13/2017 [employer] Patient Education ?? 2020 [employer]. Transient Ischemic Attack A transient ischemic attack (TIA) is a warning stroke that causes stroke-like symptoms that go away quickly. A TIA does not cause lasting damage to the brain. But having a TIA is a sign that you may be at risk for a stroke. Lifestyle changes and medical treatments can help prevent a stroke. It is important to know the symptoms of a TIA and what to do. Get help right away, even if your symptoms go away. The symptoms of a TIA are the same as those of a stroke. They can happen fast, and they usually go away within minutes or hours. They can include: ??? Weakness or loss of feeling in your face, arm, or leg. This often happens on one side of your body. ??? Trouble walking. ??? Trouble moving your arms or legs. ??? Trouble talking or understanding what people are saying. ??? Trouble seeing. ??? Seeing two of one object (double vision). ??? Feeling dizzy. ??? Feeling confused. ??? Loss of balance or coordination. ??? Feeling sick to your stomach (nauseous) and throwing up (vomiting). ??? A very bad headache for no reason. What increases the risk? Certain things may make you more likely to have a TIA. Some of these are things that you can change, such as: ??? Being very overweight (obese). ??? Using products that contain nicotine or tobacco, such as cigarettes and e-cigarettes. ??? Taking control pills. ??? Not being active. ??? Drinking too much alcohol. ??? Using drugs. Other risk factors include: ??? Having an irregular heartbeat (atrial fibrillation). ??? Being or . ??? Having had blood clots, stroke, TIA, or heart attack in the past. ??? Being a woman with a history of high blood pressure in (preeclampsia). ??? Being over the age of 60. ??? Being male. ??? Having family history of stroke. ??? Having the following diseases or conditions: ? High blood pressure. ? High cholesterol. ? Diabetes. ? Heart disease. ? Sickle cell disease. ? Sleep apnea. ? Migraine headache. ? Long-term (chronic) diseases that cause soreness and swelling (inflammation). ? Disorders that affect how your blood clots. Follow these instructions at home: Medicines ??? Take uciy-roh-hkurasi and prescription medicines only as told by your doctor. ??? If you were told to take aspirin or another medicine to thin your blood, take it exactly as told by your doctor. ? Taking too much of the medicine can cause bleeding. ? Taking too little of the medicine may not work to treat the problem. Eating and drinking ??? Eat 5 or more servings of fruits and vegetables each day. ??? Follow instructions from your doctor about your diet. You may need to follow a certain diet to help lower your risk of having a stroke. You may need to: ? Eat a diet that is low in fat and salt. ? Eat foods that contain a lot of fiber. ? Limit the amount of carbohydrates and sugar in your diet. ??? Limit alcohol intake to 1 drink a day for non women and 2 drinks a day for men. One drink equals 12 oz of beer, 5 oz of wine, or 1?? oz of hard liquor. General instructions ??? Keep a healthy weight. ??? Stay active. Try to get at least 30 minutes of activity on all or most days. ??? Find out if you have a condition called sleep apnea. Get treatment if needed. ??? Do not use any products that contain nicotine or tobacco, such as cigarettes and e-cigarettes. If you need help quitting, ask your doctor. ??? Do not abuse drugs. ??? Keep all follow-up visits as told by your doctor. This is important. Get help right away if: ??? You have any signs of stroke. BE FAST is an easy way to remember the main warning signs: ? B - Balance. Signs are dizziness, sudden trouble walking, or loss of balance. ? E - Eyes. Signs are trouble seeing or a sudden change in how you see. ? F - Face. Signs are sudden weakness or loss of feeling of the face, or the face or eyelid drooping on one side. ? A - Arms. Signs are weakness or loss of feeling in an arm. This happens suddenly and usually on one side of the body. ? S - Speech. Signs are sudden trouble speaking, slurred speech, or trouble understanding what people say. ? T - Time. Time to call emergency services. Write down what time symptoms started. ??? You have other signs of stroke, such as: ? A sudden, very bad headache with no known cause. ? Feeling sick to your stomach (nausea). ? Throwing up (vomiting). ? Jerky movements that you cannot control (seizure). These symptoms may be an emergency. Do not wait to see if the symptoms will go away. Get medical help right away. Call your local emergency services (911 in the [place] Do not drive yourself to the hospital. Summary ??? A transient ischemic attack (TIA) is a warning stroke that causes stroke-like symptoms that go away quickly. ??? A TIA is a medical emergency. Get help right away, even if your symptoms go away. ??? A TIA does not cause lasting damage to the brain. ??? Having a TIA is a sign that you may be at risk for a stroke. Lifestyle changes and medical treatments can help prevent a stroke. This information is not intended to replace advice given to you by your health care provider. Make sure you discuss any questions you have with your health care provider. Document Revised: 06/22/2019 Document Reviewed: 12/28/2017 [employer] Patient Education ?? 2020 [employer] Heart Attack A heart attack occurs when blood and oxygen supply to the heart is cut off. A heart attack causes damage to the heart that cannot be fixed. A heart attack is also called a myocardial infarction, or IN. If you think you are having a heart attack, do not wait to see if the symptoms will go away. Get medical help right away. What are the causes? This condition may be caused by: ??? A fatty substance (plaque) in the blood vessels (arteries). This can block the flow of blood to the heart. ??? A blood clot in the blood vessels that go to the heart. The blood clot blocks blood flow. ??? Low blood pressure. ??? An abnormal heartbeat. ??? Some diseases, such as problems in red blood cells (anemia)orproblems in breathing (respiratory failure). ??? Tightening (spasm) of a blood vessel that cuts off blood to the heart. ??? A tear in a blood vessel of the heart. ??? High blood pressure. What increases the risk? The following factors may make you more likely to develop this condition: ??? Aging. The older you are, the higher your risk. ??? Having a personal or family history of chest pain, heart attack, stroke, or narrowing of the arteries in the legs, arms, head, or stomach (peripheral artery disease). ??? Being male. ??? Smoking. ??? Not getting regular exercise. ??? Being overweight or obese. ??? Having high blood pressure. ??? Having high cholesterol. ??? Having diabetes. ??? Drinking too much alcohol. ??? Using illegal drugs, such as cocaine or methamphetamine. What are the signs or symptoms? Symptoms of this condition include: ??? Chest pain. It may feel like: ? Crushing or squeezing. ? Tightness, pressure, fullness, or heaviness. ??? Pain in the arm, neck, jaw, back, or upper body. ??? Shortness of breath. ??? Heartburn. ??? Upset stomach (indigestion). ??? Feeling like you may vomit (nauseous). ??? Cold sweats. ??? Feeling tired. ??? Sudden light-headedness. How is this treated? A heart attack must be treated as soon as possible. Treatment may include: ??? Medicines to: ? Break up or dissolve blood clots. ? Thin blood and help prevent blood clots. ? Treat blood pressure. ? Improve blood flow to the heart. ? Reduce pain. ? Reduce cholesterol. ??? Procedures to widen a blocked artery and keep it open. ??? Open heart surgery. ??? Receiving oxygen. ??? Making your heart strong again (cardiac rehabilitation) through exercise, education, and counseling. Follow these instructions at home: Medicines ??? Take nepx-syi-eqrryjj and prescription medicines only as told by your doctor. You may need to take medicine: ? To keep your blood from clotting too easily. ? To control blood pressure. ? To lower cholesterol. ? To control heart rhythms. ??? Do not take these medicines unless your doctor says it is okay: ? NSAIDs, such as ibuprofen. ? Supplements that have vitamin A, vitamin E, or both. ? Hormone replacement therapy that has estrogen with or without progestin. Lifestyle ??? Do not use any products that have nicotine or tobacco, such as cigarettes, e-cigarettes, and chewing tobacco. If you need help quitting, ask your doctor. ??? Avoid secondhand smoke. ??? Exercise regularly. Ask your doctor about a cardiac rehab program. ??? Eat heart-healthy foods. Your doctor will tell you what foods to eat. ??? Stay at a healthy weight. ??? Lower your stress level. ??? Do not use illegal drugs. Alcohol use ??? Do not drink alcohol if: ? Your doctor tells you not to drink. ? You are , may be , or are planning to become . ??? If you drink alcohol: ? Limit how much you use to: ? 0???1 drink a day for women. ? 0???2 drinks a day for men. ? Know how much alcohol is in your drink. In the [place] one drink equals one 12 oz bottle of beer (355 mL), one 5 oz glass of wine (148 mL), or one 1?? oz glass of hard liquor (44 mL). General instructions ??? Work with your doctor to treat other problems you may have, such as diabetes or high blood pressure. ??? Get screened for depression. Get treatment if needed. ??? Keep your vaccines up to date. Get the flu shot (influenza vaccine) every year. ??? Keep all follow-up visits as told by your doctor. This is important. Contact a doctor if: ??? You feel very sad. ??? You have trouble doing your daily activities. Get help right away if: ??? You have sudden, unexplained discomfort in your chest, arms, back, neck, jaw, or upper body. ??? You have shortness of breath. ??? You have sudden sweating or clammy skin. ??? You feel like you may vomit. ??? You vomit. ??? You feel tired or weak. ??? You get light-headed or dizzy. ??? You feel your heart beating fast. ??? You feel your heart skipping beats. ??? You have blood pressure that is higher than 180/120. These symptoms may be an emergency. Do not wait to see if the symptoms will go away. Get medical help right away. Call your local emergency services (911 in the [place] Do not drive yourself to the hospital. Summary ??? A heart attack occurs when blood and oxygen supply to the heart is cut off. ??? Do not take NSAIDs unless your doctor says it is okay. ??? Do not smoke. Avoid secondhand smoke. ??? Exercise regularly. Ask your doctor about a cardiac rehab program. This information is not intended to replace advice given to you by your health care provider. Make sure you discuss any questions you have with your health care provider. Document Revised: 01/07/2020 Document Reviewed: 01/07/2020 [employer] Patient Education ?? 2020 [employer] Coronary Artery Disease, Male Coronary artery disease (CAD) is a condition in which the arteries that lead to the heart (coronary arteries) become narrow or blocked. The narrowing or blockage can lead to decreased blood flow to the heart. Prolonged reduced blood flow can cause a heart attack (myocardial infarction or IN). This condition may also be called coronary heart disease. Because CAD is the leading cause of in men, it is important to understand what causes this condition and how it is treated. What are the causes? CAD is most often caused by atherosclerosis. This is the buildup of fat and cholesterol (plaque) on the inside of the arteries. Over time, the plaque may narrow or block the artery, reducing blood flow to the heart. Plaque can also become weak and break off within a coronary artery and cause a sudden blockage. Other less common causes of CAD include: ??? A blood clot or a piece of a blood clot or other substance that blocks the flow of blood in a coronary artery (embolism). ??? A tearing of the artery (spontaneous coronary artery dissection). ??? An enlargement of an artery (aneurysm). ??? Inflammation (vasculitis) in the artery wall. What increases the risk? The following factors may make you more likely to develop this condition: ??? Age. Men over age 45 are at a greater risk of CAD. ??? Family history of CAD. ??? Gender. Men often develop CAD earlier in life than women. ??? High blood pressure (hypertension). ??? Diabetes. ??? High cholesterol levels. ??? Tobacco use. ??? Excessive alcohol use. ??? Lack of exercise. ??? A diet high in saturated and trans fats, such as fried food and processed meat. Other possible risk factors include: ??? High stress levels. ??? Depression. ??? Obesity. ??? Sleep apnea. What are the signs or symptoms? Many people do not have any symptoms during the early stages of CAD. As the condition progresses, symptoms may include: ??? Chest pain (angina). The pain can: ? Feel like crushing or squeezing, or like a tightness, pressure, fullness, or heaviness in the chest. ? Last more than a few minutes or can stop and recur. The pain tends to get worse with exercise or stress and to fade with rest. ??? Pain in the arms, neck, jaw, ear, or back. ??? Unexplained heartburn or indigestion. ??? Shortness of breath. ??? Nausea or vomiting. ??? Sudden light-headedness. ??? Sudden cold sweats. ??? Fluttering or fast heartbeat (palpitations). How is this diagnosed? This condition is diagnosed based on: ??? Your family and medical history. ??? A physical exam. ??? Tests, including: ? A test to check the electrical signals in your heart (electrocardiogram). ? Exercise stress test. This looks for signs of blockage when the heart is stressed with exercise, such as running on a treadmill. ? Pharmacologic stress test. This test looks for signs of blockage when the heart is being stressed with a medicine. ? Blood tests. ? Coronary angiogram. This is a procedure to look at the coronary arteries to see if there is any blockage. During this test, a dye is injected into your arteries so they appear on an X-ray. ? Coronary artery CT scan. This CT scan helps detect calcium deposits in your coronary arteries. Calcium deposits are an indicator of CAD. ? A test that uses sound waves to take a picture of your heart (echocardiogram). ? Chest X-ray. How is this treated? This condition may be treated by: ??? Healthy lifestyle changes to reduce risk factors. ??? Medicines such as: ? Antiplatelet medicines and blood-thinning medicines, such as aspirin. These help to prevent blood clots. ? Nitroglycerin. ? Blood pressure medicines. ? Cholesterol-lowering medicine. ??? Coronary angioplasty and stenting. During this procedure, a thin, flexible tube is inserted through a blood vessel and into a blocked artery. A balloon or similar device on the end of the tube is inflated to open up the artery. In some cases, a small, mesh tube (stent) is inserted into the artery to keep it open. ??? Coronary artery bypass surgery. During this surgery, veins or arteries from other parts of the body are used to create a bypass around the blockage and allow blood to reach your heart. Follow these instructions at home: Medicines ??? Take prxs-mvy-hsoyznw and prescription medicines only as told by your health care provider. ??? Do not take the following medicines unless your health care provider approves: ? NSAIDs, such as ibuprofen, naproxen, or celecoxib. ? Vitamin supplements that contain vitamin A, vitamin E, or both. Lifestyle ??? Follow an exercise program approved by your health care provider. Aim for 150 minutes of moderate exercise or 75 minutes of vigorous exercise each week. ??? Maintain a healthy weight or lose weight as approved by your health care provider. ??? Learn to manage stress or try to limit your stress. Ask your health care provider for suggestions if you need help. ??? Get screened for depression and seek treatment, if needed. ??? Do not use any products that contain nicotine or tobacco, such as cigarettes, e-cigarettes, and chewing tobacco. If you need help quitting, ask your health care provider. ??? Do not use illegal drugs. Eating and drinking ??? Follow a heart-healthy diet. A dietitian can help educate you about healthy food options and changes. In general, eat plenty of fruits and vegetables, lean meats, and whole grains. ??? Avoid foods high in: ? Sugar. ? Salt (sodium). ? Saturated fat, such as processed or fatty meat. ? Trans fat, such as fried foods. ??? Use healthy cooking methods such as roasting, grilling, broiling, baking, poaching, steaming, or stir-frying. ??? Do not drink alcohol if your health care provider tells you not to drink. ??? If you drink alcohol: ? Limit how much you have to 0???2 drinks per day. ? Be aware of how much alcohol is in your drink. In the [place] one drink equals one 12 oz bottle of beer (355 mL), one 5 oz glass of wine (148 mL), or one 1?? oz glass of hard liquor (44 mL). General instructions ??? Manage any other health conditions, such as hypertension and diabetes. These conditions affect your heart. ??? Your health care provider may ask you to monitor your blood pressure. Ideally, your blood pressure should be below 130/80. ??? Keep all follow-up visits as told by your health care provider. This is important. Get help right away if: ??? You have pain in your chest, neck, ear, arm, jaw, stomach, or back that: ? Lasts more than a few minutes. ? Is recurring. ? Is not relieved by taking medicine under your tongue (sublingual nitroglycerin). ??? You have profuse sweating without cause. ??? You have unexplained: ? Heartburn or indigestion. ? Shortness of breath or difficulty breathing. ? Fluttering or fast heartbeat (palpitations). ? Nausea or vomiting. ? Fatigue. ? Feelings of nervousness or anxiety. ? Weakness. ? Diarrhea. ??? You have sudden light-headedness or dizziness. ??? You faint. ??? You feel like hurting yourself or think about taking your own life. These symptoms may represent a serious problem that is an emergency. Do not wait to see if the symptoms will go away. Get medical help right away. Call your local emergency services (911 in the [place] Do not drive yourself to the hospital. Summary ??? Coronary artery disease (CAD) is a condition in which the arteries that lead to the heart (coronary arteries) become narrow or blocked. The narrowing or blockage can lead to a heart attack. ??? Many people do not have any symptoms during the early stages of CAD. ??? CAD can be treated with lifestyle changes, medicines, surgery, or a combination of these treatments. This information is not intended to replace advice given to you by your health care provider. Make sure you discuss any questions you have with your health care provider. Document Revised: 06/15/2019 Document Reviewed: 06/05/2019 [employer] Patient Education ?? 2020 [employer]. Venous Thromboembolism Prevention Venous thromboembolism (VTE) is [...] for Disease Control and Prevention: www.cdc.gov ??? [place] [employer]: www.heart.org Get help right away [...] have with your health care provider. Document Revised: 01/15/2020 Document Reviewed: 12/04/2019 [employer] Patient Education ?? 2020 [employer]. aspirin (oral) ( pir in) Arthritis Pain, Aspi-Cor, Aspir-Low, [place] Plus, Durlaza, Ecotrin, Miniprin, [place] What is the most important information I should know about aspirin? Aspirin can cause Ladan's syndrome, a serious and sometimes fatal condition in children. What is aspirin? Aspirin is a salicylate (is-LTI-gk-ate) that is used to treat pain, and reduce fever or inflammation. Aspirin is sometimes used to treat or prevent heart attacks, strokes, and chest pain (angina). Aspirin should be used for these conditions only under the supervision of a doctor. Aspirin may also be used for purposes not listed in this medication guide. What should I discuss with my healthcare provider before taking aspirin? Using aspirin in a child or teenager with flu symptoms or chickenpox can cause a serious or fatal condition called Ladan's syndrome. You should not use aspirin if you are allergic to it, or if you have: ?? a recent history of stomach or intestinal bleeding; ?? a bleeding disorder such as hemophilia; or ?? if you have ever had an asthma attack or severe allergic reaction after taking aspirin or an NSAID (non-steroidal anti-inflammatory drug). Tell your doctor if you have ever had: ?? asthma or seasonal allergies; ?? stomach ulcers; ?? liver disease; ?? kidney disease; ?? a bleeding or blood clotting disorder; ?? gout; or ?? heart disease, high blood pressure, or congestive heart failure. Taking aspirin during late may cause bleeding in the mother or the baby during delivery. Tell your doctor if you are or plan to become . You should not breastfeed while using this medicine. How should I take aspirin? Use exactly as directed on the label, or as prescribed by your doctor. Always follow directions on the medicine label about giving aspirin to a child. Take with food if aspirin upsets your stomach. You must chew the chewable tablet before you swallow it. Do not crush, chew, break, or open an enteric-coated or delayed/extended-release pill. Swallow it whole. Tell your doctor if you have a planned surgery. Store at room temperature away from moisture and heat. Do not use aspirin if you smell a strong vinegar odor in the aspirin bottle. The medicine may no longer be effective. What happens if I miss a dose? Aspirin is used when needed. If you are on a dosing schedule, skip any missed dose. Do not use two doses at one time. What happens if I overdose? Seek emergency medical attention or call the Poison Help line at . Overdose may cause stomach pain, vomiting, diarrhea, vision or hearing problems, fast or slow breathing, or confusion. What should I avoid while taking aspirin? Avoid alcohol. Heavy drinking can increase your risk of stomach bleeding. Avoid taking ibuprofen if you take aspirin to prevent stroke or heart attack. Ibuprofen can make aspirin less effective in protecting your heart and blood vessels. Ask your doctor how far apart your doses should be. Ask a doctor or pharmacist before using other medicines for pain, fever, swelling, or cold/flu symptoms. They may contain ingredients similar to aspirin (such as magnesium salicylate, ibuprofen, ketoprofen, or naproxen). What are the possible side effects of aspirin? Get emergency medical help if you have signs of an allergic reaction: hives; difficult breathing; swelling of your face, lips, tongue, or throat. Stop using aspirin and call your doctor at once if you have: ?? ringing in your ears, confusion, hallucinations, rapid breathing, seizure (convulsions); ?? severe nausea, vomiting, or stomach pain; ?? bloody or tarry stools, coughing up blood or vomit that looks like coffee grounds; ?? fever lasting longer than 3 days; or ?? swelling, or pain lasting longer than 10 days. Common side effects may include: ?? upset stomach, heartburn; ?? drowsiness; or ?? mild headache. This is not a complete list of side effects and others may occur. Call your doctor for medical advice about side effects. You may report side effects to FDA at 4-379-LMY-8674. What other drugs will affect aspirin? Ask your doctor before using aspirin if you take an antidepressant. Taking certain antidepressants with aspirin may cause you to bruise or bleed easily. Ask a doctor or pharmacist before using aspirin with any other medications, especially: ?? a blood thinner (warfarin, Coumadin, Jantoven), or other medication used to prevent blood clots; or ?? other salicylates such as Nuprin Backache Caplet, Kaopectate, KneeRelief, Pamprin Cramp Formula, Pepto-Bismol, Tricosal, Trilisate, and others. This list is not complete. Other drugs may affect aspirin, including prescription and xfky-wmj-wyggsnq medicines, vitamins, and herbal products. Not all possible drug interactions are listed here. Where can I get more information? Your pharmacist can provide more information about aspirin. Remember, keep this and all other medicines out of the reach of children, never share your medicines with others, and use this medication only for the indication prescribed. Every effort has been made to ensure that the information provided by [employer]. ('[employer]') is accurate, up-to-date, and complete, but no guarantee is made to that effect. Drug information contained herein may be time sensitive. [employer] information has been compiled for use by healthcare practitioners and consumers in the [place] and therefore [employer] does not warrant that uses outside of the [place] are appropriate, unless specifically indicated otherwise. [employer] drug information does not endorse drugs, diagnose patients or recommend therapy. [employer] drug information is an informational resource designed to assist licensed healthcare practitioners in caring for their patients and/or to serve consumers viewing this service as a supplement to, and not a substitute for, the expertise, skill, knowledge and judgment of healthcare practitioners. The absence of a warning for a given drug or drug combination in no way should be construed to indicate that the drug or drug combination is safe, effective or appropriate for any given patient. [employer] does not assume any responsibility for any aspect of healthcare administered with the aid of information [facility] provides. The information contained herein is not intended to cover all possible uses, directions, precautions, warnings, drug interactions, allergic reactions, or adverse effects. If you have questions about the drugs you are taking, check with your doctor, nurse or pharmacist. Copyright 7037-2926 [employer]. Version: 16.03. Revision Date: 04/06/2021. atorvastatin (a TOR va sta tin) Lipitor What is the most important information I should know about atorvastatin? You should not take atorvastatin if you are or , or if you have liver disease. Tell your doctor about all your current medicines and any you start or stop using. Many drugs can interact, and some drugs should not be used together. Atorvastatin can cause the breakdown of muscle tissue, which can lead to kidney failure. Call your doctor right away if you have unexplained muscle pain, tenderness, or weakness especially if you also have fever, unusual tiredness, or dark urine. What is atorvastatin? Atorvastatin is used together with diet to lower blood levels of 'bad' cholesterol (low-density lipoprotein, or LDL), to increase levels of 'good' cholesterol (high-density lipoprotein, or HDL), and to lower triglycerides (a type of fat in the blood). Atorvastatin is used to treat high cholesterol, and to lower the risk of stroke, heart attack, or other heart complications in people with type 2 diabetes, coronary heart disease, or other risk factors. Atorvastatin is used in adults and children who are at least 10 years old. Atorvastatin may also be used for purposes not listed in this medication guide. What should I discuss with my healthcare provider before taking atorvastatin? You should not use atorvastatin if you are allergic to it, or if you have liver disease. Do not use if you are . This medicine can harm an unborn baby. Use effective control to prevent . Stop taking this medicine and tell your doctor at once if you become . Do not breastfeed while you are taking atorvastatin. Tell your doctor if you have ever had: ?? liver problems; ?? muscle pain or weakness; ?? kidney disease; ?? diabetes; ?? a thyroid disorder; or ?? if you drink more than 2 alcoholic beverages daily. Atorvastatin can cause the breakdown of muscle tissue, which can lead to kidney failure. This happens more often in women, in older adults, or people who have kidney disease or poorly controlled hypothyroidism (underactive thyroid). Atorvastatin is not approved for use by anyone younger than 10 years old. How should I take atorvastatin? Follow all directions on your prescription label and read all medication guides or instruction sheets. Your doctor may occasionally change your dose. Use the medicine exactly as directed. Take the medicine at the same time each day, with or without food. Do not break an atorvastatin tablet before taking it, unless your doctor has told you to. You may need to stop using atorvastatin for a short time if you have: ?? uncontrolled seizures; ?? an electrolyte imbalance (such as high or low potassium levels in your blood); ?? severely low blood pressure; ?? a severe infection or illness; or ?? surgery or a medical emergency. It may take up to 2 weeks before your cholesterol levels improve, and you may need frequent blood tests. Even if you have no symptoms, tests can help your doctor determine if this medicine is effective. Atorvastatin is only part of a complete treatment program that may also include diet, exercise, and weight control. Follow your doctor's instructions very closely. Store at room temperature away from moisture, heat, and light. What happens if I miss a dose? Use the medicine as soon as you can, but skip the missed dose if you are more than 12 hours late for the dose. Do not use two doses at one time. What happens if I overdose? Seek emergency medical attention or call the Poison Help line at . What should I avoid while taking atorvastatin? Avoid eating foods high in fat or cholesterol, or atorvastatin will not be as effective. Avoid drinking alcohol. It can raise triglyceride levels and may increase your risk of liver damage. Grapefruit may interact with atorvastatin and lead to unwanted side effects. Avoid drinking more than 1 liter of grapefruit juice while taking atorvastatin. What are the possible side effects of atorvastatin? Get emergency medical help if you have signs of an allergic reaction: hives; difficulty breathing; swelling of your face, lips, tongue, or throat. In rare cases, atorvastatin can cause a condition that results in the breakdown of skeletal muscle tissue, leading to kidney failure. Call your doctor right away if you have unexplained muscle pain, tenderness, or weakness especially if you also have fever, unusual tiredness, and dark colored urine. Also call your doctor at once if you have: ?? muscle weakness in your hips, shoulders, neck, and back; ?? trouble lifting your arms, trouble climbing or standing; ?? liver problems--upper stomach pain, weakness, tired feeling, loss of appetite, dark urine, jaundice (yellowing of the skin or eyes); or ?? kidney problems--little or no urinating, swelling in your feet or ankles, feeling tired or short of breath. Common side effects may include: ?? joint pain; ?? stuffy nose, sore throat; ?? diarrhea; or ?? pain in your arms or legs. This is not a complete list of side effects and others may occur. Call your doctor for medical advice about side effects. You may report side effects to FDA at 0-921-IRF-1684. What other drugs will affect atorvastatin? Certain other drugs can increase your risk of serious muscle problems, and it is very important that your doctor knows if you are using any of them. Tell your doctor about all your current medicines and any you start or stop using, especially: ?? other cholesterol-lowering medication; ?? antibiotic or antifungal medicine; ?? control pills; ?? medicine to prevent organ transplant rejection; ?? heart medication; or ?? medicine to treat hepatitis C or HIV. This list is not complete and many other drugs may affect atorvastatin. This includes prescription and mnle-pnr-kelides medicines, vitamins, and herbal products. Not all possible drug interactions are listed here. Where can I get more information? Your pharmacist can provide more information about atorvastatin. Remember, keep this and all other medicines out of the reach of children, never share your medicines with others, and use this medication only for the indication prescribed. Every effort has been made to ensure that the information provided by [employer]. ('[employer]') is accurate, up-to-date, and complete, but no guarantee is made to that effect. Drug information contained herein may be time sensitive. [employer] information has been compiled for use by healthcare practitioners and consumers in the [place] and therefore [employer] does not warrant that uses outside of the [place] are appropriate, unless specifically indicated otherwise. [employer] drug information does not endorse drugs, diagnose patients or recommend therapy. [employer] drug information is an informational resource designed to assist licensed healthcare practitioners in caring for their patients and/or to serve consumers viewing this service as a supplement to, and not a substitute for, the expertise, skill, knowledge and judgment of healthcare practitioners. The absence of a warning for a given drug or drug combination in no way should be construed to indicate that the drug or drug combination is safe, effective or appropriate for any given patient. [facility] does not assume any responsibility for any aspect of healthcare administered with the aid of information [facility] provides. The information contained herein is not intended to cover all possible uses, directions, precautions, warnings, drug interactions, allergic reactions, or adverse effects. If you have questions about the drugs you are taking, check with your doctor, nurse or pharmacist. Copyright [id number] [facility]. Version: 22.. Revision Date: 11/18/2020. apixaban (a PIX a ban) Merissa What is the most important information I should know about apixaban? Apixaban increases your risk of severe or fatal bleeding, especially if you take certain medicines at the same time (including some disy-zhm-zjpvdkd medicines). It is very important to tell your doctor about all medicines you have recently used. Call your doctor at once if you have signs of bleeding such as: swelling, pain, feeling very weak or dizzy, bleeding gums, nosebleeds, heavy menstrual periods or abnormal vaginal bleeding, blood in your urine, bloody or tarry stools, coughing up blood or vomit that looks like coffee grounds, or any bleeding that will not stop. Apixaban can cause a very serious blood clot around your spinal cord if you undergo a spinal tap or receive spinal anesthesia (epidural), especially if you have a genetic spinal defect, if you have a spinal catheter in place, if you have a history of spinal surgery or repeated spinal taps, or if you are also using other drugs that can affect blood clotting. This type of blood clot can lead to long-term or permanent paralysis. Get emergency medical help if you have symptoms of a spinal cord blood clot such as back pain, numbness or muscle weakness in your lower body, or loss of bladder or bowel control. Do not stop taking apixaban unless your doctor tells you to. Stopping suddenly can increase your risk of blood clot or stroke. What is apixaban? Apixaban is used to lower the risk of stroke caused by a blood clot in people with a heart rhythm disorder called atrial fibrillation. Apixaban is also used after hip or knee replacement surgery to prevent a type of blood clot called deep vein thrombosis (DVT), which can lead to blood clots in the lungs (pulmonary embolism). Apixaban is also used to treat DVT or pulmonary embolism (PE), and to lower your risk of having a repeat DVT or PE. Apixaban may also be used for purposes not listed in this medication guide. What should I discuss with my healthcare provider before taking apixaban? You should not take apixaban if you are allergic to it, or if you have active bleeding from a surgery, injury, or other cause. Apixaban may cause you to bleed more easily, especially if you have a bleeding disorder that is inherited or caused by disease. Tell your doctor if you have an artificial heart valve, or if you have ever had: ?? liver or kidney disease; ?? if you are older than 80; or ?? if you weigh less than 132 pounds (60 kilograms). Apixaban can cause a very serious blood clot around your spinal cord if you undergo a spinal tap or receive spinal anesthesia (epidural). This type of blood clot could cause long-term paralysis, and may be more likely to occur if: ?? you have a spinal catheter in place or if a catheter has been recently removed; ?? you have a history of spinal surgery or repeated spinal taps; ?? you have recently had a spinal tap or epidural anesthesia; ?? you are taking an NSAID (nonsteroidal anti-inflammatory drug)--aspirin, ibuprofen (Advil, Motrin), naproxen (Aleve), diclofenac, indomethacin, meloxicam, and others; or ?? you are using other medicines to treat or prevent blood clots. Taking apixaban may increase the risk of bleeding while you are or during your delivery. Tell your doctor if you are or plan to become . You should not breast-feed while using this medicine. How should I take apixaban? Follow all directions on your prescription label and read all medication guides or instruction sheets. Your doctor may occasionally change your dose. Use the medicine exactly as directed. You may take apixaban with or without food. If you cannot swallow a tablet whole, crush and mix it with water, apple juice, or a spoonful of applesauce. Swallow the mixture right away without chewing. Do not save it for later use. A crushed tablet mixture may also be given through a nasogastric (NG) feeding tube. Read and carefully follow any Instructions for Use provided with your medicine. Ask your doctor or pharmacist if you do not understand these instructions. Apixaban can make it easier for you to bleed, even from a minor injury. Seek medical attention if you have bleeding that will not stop. If you need surgery or dental work, tell the doctor or dentist ahead of time if you have taken apixaban within the past 24 hours. You may need to stop taking apixaban for a short time. Do not stop taking apixaban unless your doctor tells you to. Stopping suddenly can increase your risk of blood clot or stroke. If you stop taking apixaban for any reason, your doctor may prescribe another medication to prevent blood clots until you start taking apixaban again. Store at room temperature away from moisture and heat. What happens if I miss a dose? Take the missed dose on the same day you remember it. Take your next dose at the regular time and stay on your twice-daily schedule. Do not take two doses at one time. Get your prescription refilled before you run out of medicine completely. What happens if I overdose? Seek emergency medical attention or call the Poison Help line at . What should I avoid while taking apixaban? Avoid activities that may increase your risk of bleeding or injury. Use extra care to prevent bleeding while shaving or brushing your teeth. What are the possible side effects of apixaban? Get emergency medical help if you have signs of an allergic reaction: hives; chest pain, wheezing, difficult breathing; feeling light-headed; swelling of your face, lips, tongue, or throat. Also seek emergency medical attention if you have symptoms of a spinal blood clot: back pain, numbness or muscle weakness in your lower body, or loss of bladder or bowel control. Call your doctor at once if you have: ?? easy bruising, unusual bleeding (nose, mouth, vagina, or rectum), bleeding from wounds or needle injections, any bleeding that will not stop; ?? heavy menstrual periods; ?? headache, dizziness, weakness, feeling like you might pass out; ?? urine that looks red, pink, or brown; or ?? black or bloody stools, coughing up blood or vomit that looks like coffee grounds. documented in this encounter Plan of Treatment Not on file documented as of this encounter Visit Diagnoses Not on filedocumented in this encounter
--- OUTSIDE RECORDS SUMMARY | 2025-03-28 10:43 | XMS_ITS | Encounter Summary ---
Author Organization [employer] Address [address] [place] [address] Care Team Providers Care Auto Painter Helper Name Role Phone Unavailable Primary Care Provider Unavailabl e Encounter Details Date Type Department Care Team (Late st Contact Info) Description 11/07/2019 Transcribed Document [facility] [place] Family Medicine [address] [place] [address] ProviderPrasanth MD [facility] [place] [address] Social History Tobacco Use Types Packs/Day Years Used Date Smoking Tobacco: Never Assessed Sex and Gender Information Value Date Recorded Sex Assigned at Not on file Legal Sex Male 6:49 PM CDT Gender Identity Not on file Sexual Orientation Not on file documented as of this encounter Miscellaneous Notes * Cerner Conversion Note - Historical ProviderMD - 11/07/2019 3:18 AM WOODS MANAGER Height and Weight, Routine Entered On: 11/07/2019 3:18 EST Performed On: 11/07/2019 3:18 EST by Sal Hurt, Radar Engineering TeacherHealth Unit Coord Height and Weight, Routine Routine Weight Source : Bed scale Routine Weight Entry Format : Metric Routine Weight, Kilograms : 89.7 kg(Converted to: 197 lb 12 oz) Routine Weight Calculation : 89.7 kg Height Source : Stated Height Entry Format : [place] Height, Feet : 5 ft Height, Inches : 9 Inch Clinical Height : 175.26 cm Body Surface Area (BSA), Routine : 2.06 m2 Body Mass Index (BMI), Routine : 29.2 kg/m2 Sal Hurt, Radar Engineering TeacherHealth Unit Coord - 11/07/2019 3:18 EST Electronically signed by Nikita [facility] Conversion Channel Sales Director Cerner at 01/26/2023 9:10 PM CDT documented in this encounter Plan of Treatment Not on file documented as of this encounter Visit Diagnoses Not on filedocumented in this encounter
--- OUTSIDE RECORDS SUMMARY | 2025-03-28 10:43 | XMS_ITS | Encounter Summary ---
Author Organization [employer] Address [address] [place] [address] Care Team Providers Care Alignment Mechanic Name Role Phone Unavailable Primary Care Provider Unavailabl e Encounter Details Date Type Department Care Team (Late st Contact Info) Description 06/04/2021 Transcribed Document [facility] [place] Family Medicine [facility] [address] ProviderPrasanth MD [address] [place] [address] Social History Tobacco Use Types Packs/Day Years Used Date Smoking Tobacco: Never Assessed Sex and Gender Information Value Date Recorded Sex Assigned at Not on file Legal Sex Male 6:49 PM CDT Gender Identity Not on file Sexual Orientation Not on file documented as of this encounter Miscellaneous Notes * Cerner Conversion Note - Prasanth ProviderMD - 06/04/2021 11:25 AM CDT Patient Education Materials Follows: Heart Attack A heart attack occurs when blood and oxygen supply to the heart is cut off. A heart attack causes damage to the heart that cannot be fixed. A heart attack is also called a myocardial infarction, or NH. If you think you are having a [...] these instructions at home: Medicines ??? Take ulcy-tpc-nrskjvr and prescription medicines only as told by [...] Limit how much you use to: ? 0?1 drink a day for women. ? 0?2 drinks a day for men. ? Know how much alcohol is in your drink. In the [place] one drink equals one 12 oz bottle of beer (355 mL), one 5 oz glass of wine (148 mL), or one 1? oz glass of hard liquor (44 mL). [...] provider. Document Revised: 01/07/2020 Document Reviewed: 01/07/2020 Else[employer] Patient Education ? 2019 [employer] Coronary Artery Disease, Male Coronary artery disease (CAD) is a condition in which the arteries that lead to the heart (coronary arteries) become narrow or blocked. The narrowing or blockage can lead to decreased blood flow to the heart. Prolonged reduced blood flow can cause a heart attack (myocardial infarction or NH). This condition may also be called coronary [...] these instructions at home: Medicines ??? Take dxub-bgy-isfhdic and prescription medicines only as told by [...] ? Limit how much you have to 0?2 drinks per day. ? Be aware of how much alcohol is in your drink. In the [place] one drink equals one 12 oz bottle of beer (355 mL), one 5 oz glass of wine (148 mL), or one 1? oz glass of hard liquor (44 mL). [...] provider. Document Revised: 06/15/2019 Document Reviewed: 06/05/2019 Elsevier Patient Education ? 2020 Elsevier Inc. Hematology Bleeding Precautions When on Anticoagulant Therapy, Adult [...] blood clot. Taking other medicines ??? Take otry-tfq-iunwmsh and prescriptions medicines only as told by your health care provider. ??? Do not take fhgo-hwk-jvdcjhf NSAIDs, including aspirin and ibuprofen, while you [...] use toothpicks. ??? Use a soft-bristled toothbrush. [place] your teeth gently. ??? Always wear shoes [...] you: ??? Work with a diet and guest specialist (dietitian) to make an eating plan. [...] provider. Document Revised: 01/16/2020 Document Reviewed: 12/13/2017 [employer] Patient Education ? 2020 [employer] Neurology Transient Ischemic Attack A transient ischemic attack [...] these instructions at home: Medicines ??? Take ncsw-dzy-itcdauq and prescription medicines only as told by [...] wine, or 1? oz of hard liquor. General instructions ??? [...] provider. Document Revised: 06/22/2019 Document Reviewed: 12/28/2017 [employer] Patient Education ? 2020 [employer]. Preventive Health Venous Thromboembolism Prevention Venous thromboembolism (VTE) is [...] increased risk for VTE for the first 4?6 weeks after surgery. During this time: ??? [...] for Disease Control and Prevention: www.cdc.gov ??? [place] Heart Association: www.heart.org Get help right away [...] provider. Document Revised: 01/15/2020 Document Reviewed: 12/04/2019 [employer] Patient Education ? 2020 [employer] Electronically signed by Carla Shelton Conversion Director Of Occupational Therapy [employer] at 01/26/2023 9:10 PM CDT documented in this encounter Plan of Treatment Not on file documented as of this encounter Visit Diagnoses Not on filedocumented in this encounter
--- OUTSIDE RECORDS SUMMARY | 2025-03-28 10:43 | XMS_ITS | Encounter Summary ---
Author Organization [email or web address] Address [address] [place] [address] Care Team Providers Care Price Checker Name Role Phone Unavailable Primary Care Provider Unavailabl e Encounter Details Date Type Department Care Team (Late st Contact Info) Description 08/06/2020 Transcribed Document [facility] [place] [address] [place] [address] ProviderPrasanth MD [address] [place] [id number] Social History Tobacco Use Types Packs/Day Years Used Date Smoking Tobacco: Never Assessed Sex and Gender Information Value Date Recorded Sex Assigned at Not on file Legal Sex Male 6:49 PM CDT Gender Identity Not on file Sexual Orientation Not on file documented as of this encounter Miscellaneous Notes * Cerner Conversion Note - Prasanth ProviderMD - 08/06/2020 9:04 AM CDT Final Discharge Planning Entered On: 08/06/2020 9:07 EDT Performed On: 08/06/2020 9:04 EDT by ALVINA GIVENS RN-Beam Sealer Final Discharge Planning Discharge Arrangements : Patient Post-Acute Information Patient Name: SHIRA GARZA Gender: Male : 39 Age: 85 Years No Post-Acute Placement(s) Listed No Post-Acute Service(s) Listed No [place] Referral(s) Listed Transportation Needs : Family/Friend Is Patient High/Moderate Readmission Risk? : No Patient/Family Notified of Plan : Yes Support Person/Pt Rep Notified of Plan : Yes Is Patient Ready for Discharge? : Yes Physician Notified Patient is Ready for Discharge? : Yes Discharge To Care Management : Home/Residential/Correction or Self Care -01 ALVINA GIVENS RN-Beam Sealer - 08/06/2020 9:04 EDT Final Narrative Note Final Narrative Note : pt will dc home. was given eliquis card/coupon for free 30 day trial. no further cm needs. ALVINA GIVENS, RN-Beam Sealer - 08/06/2020 9:04 EDT Electronically signed by Nikita [facility] Conversion Rotary Veneer Machine Operator Cerner at 01/26/2023 8:57 PM CDT documented in this encounter Plan of Treatment Not on file documented as of this encounter Visit Diagnoses Not on filedocumented in this encounter
--- OUTSIDE RECORDS SUMMARY | 2025-03-28 10:43 | XMS_ITS | Encounter Summary ---
Author Organization [employer] Address [address] [place] [address] Care Team Providers Care Automatic Fabric Cutter Name Role Phone Unavailable Primary Care Provider Unavailabl e Encounter Details Date Type Department Care Team (Late st Contact Info) Description 08/06/[address] [facility] [place] Family Medicine [address] [place] [address] ProviderPrasanth MD [facility] [place] [address] Social History Tobacco Use Types Packs/Day Years Used Date Smoking Tobacco: Never Assessed Sex and Gender Information Value Date Recorded Sex Assigned at Not on file Legal Sex Male 6:49 PM CDT Gender Identity Not on file Sexual Orientation Not on file documented as of this encounter Miscellaneous Notes * Cerner Conversion Note - Prasanth ProviderMD - 08/06/2020 12:49 PM CDT Patient Education Materials Follows:Medicine Acute Coronary Syndrome Acute coronary syndrome (ACS) [...] a heart-healthy eating plan. Medicines ??? Take kctx-vwp-hkpwzbp and prescription medicines only as told by [...] ? Limit how much you have to 0?1 drink a day. ? Be aware of [...] 09/26/2006 Document Revised: 10/08/2019 Document Reviewed: 10/08/2019 [employer] Patient Education ? 2020 [employer]. Pharmacology Aspirin and Your Heart Aspirin is a [...] The two forms of aspirin are: ? Tnx-usbpvoy-ukszdg.This type of aspirin does not have a coating and is absorbed quickly. This type of aspirin also comes in a chewable form. ? Enteric-coated. This type of aspirin has a coating that releases the medicine very slowly. Enteric-coated aspirin might cause less stomach upset than pbs-gnsgnfr-staydb aspirin. This type of aspirin should not be chewed or crushed. ??? Limit alcohol intake to no more than 1 drink a day for non women and 2 drinks a day for men. Drinking alcohol increases your risk of bleeding. One drink equals 12 oz of beer, 5 oz of wine, or 1? oz of hard liquor. Contact a health [...] 09/08/2009 Document Revised: 07/27/2018 Document Reviewed: 07/27/2018 [employer] Patient Education ? 2020 [employer]. Preventive Health Venous Thromboembolism Prevention Venous thromboembolism [...] for Disease Control and Prevention: www.cdc.gov ??? [place] Heart Association: www.heart.org Get help right away [...] 09/14/2010 Document Revised: 01/15/2020 Document Reviewed: 12/04/2019 Elsevier Patient Education ? 2019 [employer]entist Inc. Procedures Mitral Valve Replacement Mitral valve replacement is [...] including vitamins, herbs, eye drops, creams, and maeb-qyj-nyfnsgd medicines. ??? Any problems you or family [...] tells you to take them. ? Taking logg-poz-ugvlntg medicines, vitamins, herbs, and supplements. Staying hydrated Follow instructions from your health care provider about hydration, which may include: ??? Up to 2 hours before the procedure ? you may continue to drink clear liquids, such as water, clear fruit juice, black coffee, and plain tea. Eating and drinking restrictions Follow instructions from your health care provider about eating and drinking, which may include: ??? 8 hours before the procedure ? stop eating heavy meals or foods, such as meat, fried foods, or fatty foods. ??? 6 hours before the procedure ? stop eating light meals or foods, such as toast or cereal. ??? 6 hours before the procedure ? stop drinking milk or drinks that contain milk. ??? 2 hours before the procedure ? stop drinking clear liquids. General instructions ??? [...] 01/27/2006 Document Revised: 06/19/2019 Document Reviewed: 06/19/2019 ElseMyDentist Patient Education ? 2020 [employer]. documented in this encounter Plan of Treatment Not on file documented as of this encounter Visit Diagnoses Not on filedocumented in this encounter
--- OUTSIDE RECORDS SUMMARY | 2025-03-28 10:43 | XMS_ITS | Encounter Summary ---
Author Organization [employer] Address [address] [place] [id number] Care Team Providers Care Armature Tester Name Role Phone Unavailable Primary Care Provider Unavailabl e Encounter Details Date Type Department Care Team (Late st Contact Info) Description 08/06/2020 Transcribed Document [facility] Family Medicine [address] [place] [address] ProviderPrasanth MD [facility] [place] [address] Social History Tobacco Use Types Packs/Day Years Used Date Smoking Tobacco: Never Assessed Sex and Gender Information Value Date Recorded Sex Assigned at Not on file Legal Sex Male 6:49 PM CDT Gender Identity Not on file Sexual Orientation Not on file documented as of this encounter Miscellaneous Notes * Cerner Conversion Note - Historical ProviderMD - 08/06/2020 12:42 PM CDT Stroke/Warfarin Instructions Entered On: 08/06/2020 12:42 EDT Performed On: 08/06/2020 12:42 EDT by Alejandra Romero RN Stroke/Warfarin Instructions Stroke/TIA Discharge Ins : N/A Warfarin Discharge Ins : N/A Alejandra Romero RN - 08/06/2020 12:42 EDT documented in this encounter Plan of Treatment Not on file documented as of this encounter Visit Diagnoses Not on filedocumented in this encounter
--- OUTSIDE RECORDS SUMMARY | 2025-03-28 10:43 | XMS_ITS | Encounter Summary ---
Author Organization [employer] Address [address] [place] [id number] Care Team Providers Care Third Hand Name Role Phone Unavailable Primary Care Provider Unavailabl e Encounter Details Date Type Department Care Team (Late st Contact Info) Description 12/30/2020 Transcribed Document [facility] [place] [address] ProviderPrasanth MD [address] [place] [address] Social History Tobacco Use Types Packs/Day Years Used Date Smoking Tobacco: Never Assessed Sex and Gender Information Value Date Recorded Sex Assigned at Not on file Legal Sex Male 6:49 PM CDT Gender Identity Not on file Sexual Orientation Not on file documented as of this encounter Miscellaneous Notes * Cerner Conversion Note - Historical ProviderMD - 12/30/2020 8:05 AM CDT Pre Procedure Adult Entered On: 12/30/2020 8:12 EDT Performed On: 12/30/2020 8:05 EDT by Mini Abreu RN Height and Weight, Clinical Dosing Height Source : Stated Height Entry Format : [place] Height, Feet : 5 ft(Converted to: 152 cm, 60 Inch) Height, Inches : 9 Inch(Converted to: 0 ft 9 Inch, 22.86 cm) Clinical Height : 175.26 cm Weight Source : Standing scale Weight Entry Format : [place] Clinical Dosing Weight : 88.64 kg Weight, Pounds : 195 lb Body Surface Area (BSA) : 2.05 m2 Body Mass Index : 28.9 kg/m2 (HI) [place] Body Weight : 70 kg Mini Abreu RN - 12/30/2020 8:05 EDT Health Histories Smoking Status : Former smoker, quit more than 30 days ago Smokeless Tobacco Status : Never Mini Abreu RN - 12/30/2020 8:05 EDT Social History (As Of: 12/30/2020 08:12:17 EDT) Tobacco: Last Used: quit smoking 2007. (Last Updated: 12/03/2019 09:51:35 EST by AUSTIN FOFANA, WILL) Former smoker, quit more than 30 days ago Smoking Status. Never Smokeless Tobacco Status. Last Used: 2007. was occasional smoker . maybe 1 pack each week. (Last Updated: 07/22/2020 09:20:31 EDT by SALLY BARNETT RN) Former smoker, quit more than 30 days ago Smoking Status. Last Used: Quit 2007. (Last Updated: 08/04/2020 12:08:47 EDT by WALTER POWELL, WILL) Alcohol: Alcohol Use History No. Alcohol Use Frequency Rarely. Alcohol Use Comment has beer when traveling to other countries. (Last Updated: 12/03/2019 09:52:04 EST by AUSTIN FOFANA, RN) Substance Abuse: Drug Use Hx: No. Use in Last 12 Months: No. (Last Updated: 11/14/2018 07:19:13 EST by RADHA TERRAZAS RN) Home/Environment: Lives with Spouse. Living situation: Home/Independent. (Last Updated: 10/26/2019 09:41:52 EST by HILDA ANTHONY RN) Employment/School: Employed (Last Updated: 10/26/2019 09:41:57 EST by HILDA ANTHONY RN) Infectious Disease History Has the patient ever been tested for COVID-19? : Yes, Patient stated results Negative Where are the test results? : Paper Copy on chart Date of COVID-19 test known? : Yes Date of COVID-19 Test : 12/26/2020 EDT Does patient have symptoms of COVID-19? : No COVID19 Screening : No Experiencing Infectious Disease Symptoms : No symptoms Physical contact outside [place] in the last 30 days : No Infectious Disease History : Chicken pox/Shingles, Mumps Tuberculosis Symptoms : None Mini Abreu RN - 12/30/2020 8:05 EDT COVID19 PreProcedure Screening Is this an Emergent or Add on Procedure? : No Date PreProcedure COVID-19 test known? : Yes Date of PreProcedure COVID-19 : 12/26/2020 EDT Has patient been isolated since the test : No Exposed to COVID19 symptoms since test? : No Mini Abreu RN - 12/30/2020 8:05 EDT Anesthesia/Transfusion History Family History of Anesthesia Reaction : No prior transfusion(s) Blood Transfusion Acceptable to Patient : Yes Transfusion History : Prior anesthesia without reaction Family History of Anesthesia Reaction : None Mini Abreu RN - 12/30/2020 8:05 EDT Functional Assessment Living Situation : Home Patient Lives With : Spouse Current Home Treatments : None Mini Abreu RN - 12/30/2020 8:05 EDT [place] Suicide Severity Rating Scale (C-SSRS) CSSRS Past Month Wish to be : No CSSRS Past Month Suicidal Thoughts : No CSSRS Lifetime Suicide Behavior : No Suicide Severity Rating Score : 0 Suicide Severity Rating : No Additional Care Required at this time Mini Abreu RN - 12/30/2020 8:05 EDT Psychosocial History Chronic/Terminal Illness w/Freq Visits : No Do You Have a History of the Following? : Patient denies history Currently in Unsafe Situation : No Mini Abreu RN - 12/30/2020 8:05 EDT Advance Directive Patient has Advance Directive *Q : Yes, Advance Directive not with the patient Advance Directive Type : Living will Copy Advance Directive Verified/on Chart : No Mini Abreu RN - 12/30/2020 8:05 EDT Teaching/Learning Assessment Barriers To Learning : None evident Individuals Taught : Patient, Spouse Readiness to Learn : Explanation Learning Style Preferences Patient : Verbal explanation Learning Style Preferences Family : Verbal explanation Mini Abreu RN - 12/30/2020 8:05 EDT Education Topics, Periop Preadmission Perioperative Education [place] : Verbalizes understanding Infection Control : Verbalizes understanding IV's : Verbalizes understanding NPO Status/Directions : Verbalizes understanding Pain Management : Verbalizes understanding Preprocedure Preparations : Verbalizes understanding Preprocedure Tests/Labs : Verbalizes understanding Mini Abreu RN - 12/30/2020 8:05 EDT General Info Arrived From : Home Mode of Arrival on Unit : Ambulatory Patient Arrival Date/Time : 12/30/2020 7:51 EDT Legal Guardian : Spouse Legal Guardian : No Support Person/Patient Spout Tender : Yes Support Person/Pt Rep Name : Rosa Elena Dianna- spouse Support Person/Pt Rep Contact Information : [phone] home Want Family/Rep/Phys Notified of Admit : No Emergency Contact #1 : NA Emergency Contact #1 Phone Number : YU Emergency Contact #1 Relationship : NA Emergency Contact #2 : NA Emergency Contact #2 Phone Number : YU Emergency Contact #2 Relationship : NA Information Obtained From : Patient Primary Language : [place] Preferred Communication Mode : Verbal Communication Barrier : None Bag Repairer Needed : No Mini Abreu RN - 12/30/2020 8:05 EDT Vital Measurements Temperature Source : Temporal artery scanning Temperature Mode : Fahrenheit Temperature, Fahrenheit : 97.2 Deg F Clinical Temperature, C : 36.2 Deg C Peripheral Pulse Rate : 54 bpm (LOW) Systolic Blood Pressure : 167 mmHg (HI) Diastolic Blood Pressure : 79 mmHg Oxygen Saturation : 97 % Oxygen Therapy Mode : Room air Mini Abreu RN - 12/30/2020 8:05 EDT Sleep Apnea Risk Assmt Hx of Obstructive Sleep Apnea Diagnosis : No Snore Loudly : No Tired, Fatigued, or Sleepy During Day : No Observed Stopping Breathing During Sleep : Yes Have/Are Being Treated for Hypertension : Yes BMI Greater Than 35 kg/m2 : No Age over 50 Years Old : Yes Neck Circumference Greater Than 40 cm : Yes Gender Male : Yes STOP-BANG Sleep Apnea Risk Level Score : 5 Mini Abreu RN - 12/30/2020 8:05 EDT Vishnu Scale Vishnu Sensory Perception : No impairment Vishnu Moisture : Rarely moist Vishnu Activity : Walks frequently Vishnu Mobility : No limitation Vishnu Nutrition : Excellent Vishnu Friction and Shear : No apparent problem Vishnu Score : 23 Mini Abreu RN - 12/30/2020 8:05 EDT Pain Assessment Pain Assessment : Initial assessment Pain Scale Used : 0-10 Scale Mini Abreu RN - 12/30/2020 8:05 EDT Fall Risk Scales ABCs Fall Injury Risk [...] Scale Risk Level : 0-24 Low Risk [place] Fall Interventions : Adequate lighting, Bed in low position, Call device within reach, Hourly comfort/safety rounds, Non-slip footwear, Personal items within reach, Room free of clutter/spills, Upper side-rails up, Wheels locked, Wires/Cords secured Mini Abreu RN - 12/30/2020 8:05 EDT Valuables and Belongings Valuables and Belongings : Clothing, Jewelry, Personal items Clothing : Common streetwear Clothing Disposition : Bedside, Declines to send to security/safe Jewelry : Ring Jewelry Disposition : With patient, Declines to send to security/safe Personal Items : Cell phone, Wallet Personal Items Disposition : With family, Declines to send to security/safe Mini Abreu RN - 12/30/2020 8:05 EDT Pain Scale Intensity : 0 Mini Abreu RN - 12/30/2020 8:05 EDT Image 4 - Images currently included in the form version of this document have not been included in the text rendition version of the form. Electronically signed by Carla Shelton Conversion [employer] Farm Manager Cerner at 01/26/2023 8:49 PM CDT documented in this encounter Plan of Treatment Not on file documented as of this encounter Visit Diagnoses Not on filedocumented in this encounter
--- OUTSIDE RECORDS SUMMARY | 2025-03-28 10:43 | XMS_ITS | Encounter Summary ---
Author Organization [employer] Address [address] [place] [address] Care Team Providers Care Assistant Toddler Teacher Name Role Phone Unavailable Primary Care Provider Unavailabl e Encounter Details Date Type Department Care Team (Late st Contact Info) Description 11/07/2019 Transcribed Document [facility] Radiology [address] [place] [address] Abel Kapadia MD [address] [place] [address] [place] [address] Social History Tobacco Use Types Packs/Day Years Used Date Smoking Tobacco: Never Assessed Sex and Gender Information Value Date Recorded Sex Assigned at Not on file Legal Sex Male 6:49 PM CDT Gender Identity Not on file Sexual Orientation Not on file documented as of this encounter Miscellaneous Notes * Cerner Conversion Note - Abel Kapadia MD - 11/07/2019 1:12 PM EST Patient: SHIRA GARZA HORACIO Age: 84 years Sex: Male : 1935 Associated Diagnoses: None Author: ABEL KAPADIA MD-INT Subjective DATE OF ADMISSION: 11/04/2019 Date of Discharge 11/08/2019 PRIMARY CARE PHYSICIAN: Dr. Marcelino Caldera, [facility]. REFERRING PHYSICIAN: Dr. Beckman, [facility] , 1935. CURRENT COMPLAINT: Falls, dizziness, irregular heartbeat. HISTORY OF PRESENT ILLNESS: Shira Garza is an 84-year-old man, , living in the [facility], who recently underwent a transcatheter aortic valve [...] -CT head with small right-sided subdural hematoma -on 11/07-PPM planned Hospital course 11/05 patient seen and examined, he is in ICU, he is somewhat the bradycardic, reports no active complaints He is pleasant to talk to, cardiology and neurosurgical service on board. 11/06 patient seen, sitting up, feels very well, relook CT head OK, cards planning PPM soon, I d/w RN 11/07-pt seen, no c/o, pacer pending, HD stable, TTF today 11/08-pt Health Status Allergies: Allergic Reactions (Selected) Severity Not Documented Amiodarone- Unknown., Allergies (1) Active Reaction amiodarone Unknown Current medications: (Selected) Inpatient Medications Ordered Ancef: 2 Gram, 50 mL, 100 mL/Hr, IV Piggyback, On-Arrival Colace: 100 mg, Oral, BID, PRN: Constipation DuoNeb 0.5 mg-2.5 mg/3 mL inhalation solution: 3 mL, Nebulized Inhalation, Q4H, PRN: Dyspnea Imdur: 30 mg, Oral, QAM MiraLax: 17 Gram, Oral, Daily, PRN: Constipation Normal Saline Flush: 10 mL, IV Push, Q12H Normal Saline Flush: 10 mL, IV Push, See Comment, PRN: IV Use Tylenol: 650 mg, Oral, Q6H, PRN: Fever [...] PRN: Chest Pain, 100 Tab, 0 Refill(s) atorvastatin 20 mg oral tablet: 1 Tab, Oral, Weekly, 0 Refill(s) isosorbide mononitrate 30 mg oral tablet, extended release: 1 Tab, Oral, QAM, 0 Refill(s) lisinopril 20 mg oral tablet: 1 Tab, Oral, At Bedtime, 0 Refill(s) multivitamin: 1 Tab, Oral, Daily, 0 Refill(s), Home Medications (5) Active atorvastatin 20 mg oral tablet 20 mg = 1 Tab, Oral, Weekly isosorbide mononitrate 30 mg oral tablet, extended release 30 mg = 1 Tab, Oral, QAM lisinopril 20 mg oral tablet 20 mg = 1 Tab, Oral, At Bedtime multivitamin 1 Tab, Oral, Daily Nitrostat 0.4 mg sublingual tablet 0.4 mg = 1 Tab, PRN, SubLINgual, Q5Min , Medications (15) Active Scheduled: (6) #NaCl 0.9% *FLUSH* inj 10 mL 10 mL, IV Push, Q12H atorvastatin 20 mg tab 20 mg 1 Tab, Oral, Weekly ceFAZolin/D5w 2 Gram 50 mL, IV Piggyback, On-Arrival isosorbide MONOnitrate ER 30 mg tab 30 mg 1 Tab, Oral, QAM lisinopril 20 mg tab 20 mg 1 Tab, Oral, Daily multiple vitamin (Thera) tab 1 Tab, Oral, Daily Continuous: (1) niCARdipine 25 mg + NaCl 0.9% T ITRATE 250 mL 250 mL, IntraVENous PRN: (8) #NaCl 0.9% *FLUSH* inj 10 mL 10 mL, IV Push, See Comment acetaminophen 325 mg tab 650 mg 2 [...] At risk for sleep apnea / IMO [id number] / Confirmed Shortness of breath / SNOMED CT 359963298 / Confirmed Hypertension / SNOMED CT 62824682 / Confirmed Wears glasses / SNOMED CT 369454169 / Confirmed, Active Problems (11) Aortic stenosis At risk for sleep apnea Atrial flutter Benign neoplastic disease CAD (coronary artery disease) Hyperlipidemia Hypertension Renal calculus Right bundle branch block Shortness of breath Wears glasses Objective VS/Measurements Vitals Signs (last 24 hrs) Last Charted Minimum Maximum Temp 97.8 (NOV 07 08:00) 97.8 (NOV 07 08:00) 98.1 (NOV 06 16:00) Apical HR L 57 (NOV 07 10:09) L 56 (NOV 06 22:34) L 58 (NOV 07 02:04) Mon HR 52 (NOV 07 10:15) 36 (NOV 07 00:00) 63 (NOV 06 16:00) Resp Rate H 28 (NOV 07 10:00) L 13 (NOV 07 08:00) H 34 (NOV 06 13:00) SBP H 172 (NOV 07:15) 129 (NOV 06 14:00) H 184 (NOV 06 22:00) DBP 78 (NOV 07 10:15) 62 (NOV 06 14:00) 85 (NOV 06 22:00) MAP 116 (NOV 07 10:15) 85 (NOV 06 14:00) 122 (NOV 06 22:00) SpO2 94 (NOV 07 10:15) L 89 (NOV 06 13:00) 97 (NOV 06 23:00) General: No acute distress. Eye: Normal conjunctiva. Neck: No jugular venous distention. Respiratory: Lungs are clear to auscultation, Respirations are non-labored, Breath sounds are equal. Cardiovascular: Regular rhythm, No gallop, S1+ S2 No S3 or S4 Todd.. Gastrointestinal: Soft, Non-tender, Non-distended, Normal bowel sounds. Integumentary: No rash. Neurologic: No focal deficits. Psychiatric: Cooperative. Results Review General results Interpretation: No qualifying data available Labs (Last four charted values) WBC 6.4 (NOV 04) HB L 13.3 (NOV 04) HCT 40.7 (NOV 04) Plt L 141 (NOV 06) L 100 (NOV 04) Na 140 (NOV 06) 140 (NOV 04) K 3.7 (NOV 06) 3.6 (NOV 04) Cl 107 (NOV 06) 106 (NOV 04) CO2 26 (NOV 06) 28 (NOV 04) BUN 19 (NOV 06) H 26 (NOV 04) Cr 1.20 (NOV 06) 1.00 (NOV 04) Glu R H 111 (NOV 06) 93 (NOV 04) Ca 8.9 (NOV 06) 9.1 (NOV 04) PT 11.0 (NOV 04) INR 1.0 (NOV 04) PTT 28.0 (NOV 04) Troponin H 0.299 (NOV 04) Radiology Results (Last 48 hours) [id number] -- 11/04/2019 21:19 CT Head WO (11/05/2019 12:38) Result: CT [...] Plan Diagnosis -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-PPM on 11/07 -Small right-sided subdural hematoma in the setting of aspirin and Plavix use -History of aortic stenosis status post recent TAVR -History of coronary artery disease status post CABG -Paroxysmal atrial fibrillation -Essential hypertension Discharge Medications (5) Active atorvastatin 20 mg oral tablet 20 mg = 1 Tab, Oral, Weekly isosorbide mononitrate 30 mg oral tablet, extended release 30 mg = 1 Tab, Oral, QAM lisinopril 20 mg oral tablet 20 mg = 1 Tab, Oral, At Bedtime multivitamin 1 Tab, Oral, Daily Nitrostat 0.4 mg sublingual tablet 0.4 mg = 1 Tab, PRN, SubLINgual, Q5Min Discharge/Follow Up instructions: Follow up with primary care physician (PCP) will be arranged ASA and plavix held f/u 2 weeks FATOU- Dr Rasheed Activity as tolerated pacer wound check-instructions defer to cards Patient seen and examined on the day of discharge Discharge was discussed with the patient Greater than thirty minutes spend coordinating the discharge process CC: copy of this discharge summary to patients Primary Care Provider (PCP) Plan Monitor heart rate, continue cardiac monitoring, held aspirin and Plavix Timing and threshold for pacemaker per cardiology, monitor blood pressure closely Neurosurgery service on board, plan of care was discussed with the patient and RN, JUAN today OK documented in this encounter Plan of Treatment Not on file documented as of this encounter Visit Diagnoses Not on filedocumented in this encounter
--- OUTSIDE RECORDS SUMMARY | 2025-03-28 10:43 | XMS_ITS | Encounter Summary ---
Author Organization [employer] Address [address] [place] [address] Care Team Providers Care Braid Maker Name Role Phone Unavailable Primary Care Provider Unavailabl e Encounter Details Date Type Department Care Team (Late st Contact Info) Description 08/06/2020 Transcribed Document [facility] [place] [facility] [place] [address] ProviderPrasanth MD [facility] [address] Social History Tobacco Use Types Packs/Day Years Used Date Smoking Tobacco: Never Assessed Sex and Gender Information Value Date Recorded Sex Assigned at Not on file Legal Sex Male 6:49 PM CDT Gender Identity Not on file Sexual Orientation Not on file documented as of this encounter Miscellaneous Notes * Cerner Conversion Note - Prasanth Sanchez MD - 08/06/2020 1:27 PM CDT Patient: SHIRA GARZA MRN: - Age: 85 Years Sex: Male : 1935 Admit Date 08/04/2020 Discharge Date August 06, 2020 Primary Care Provider KARON MCWILLIAMS MD-INT Discharge Diagnosis Acute non-ST elevation myocardial infarction (NSTEMI) Elevated troponin in the setting of known clear coronaries on recent heart catheterization per Dr. Easley. Aspirin will be given and Imdur has been started by cardiology. No EKG changes and echocardiogram is pending. 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 We will observe patient until August 06 and start new anticoagulation and likely let him go home if no further events Studies REPORT PORTABLE CHEST HISTORY: Precordial chest pain. COMPARISON: None. FINDINGS: The heart is mildly enlarged. The mediastinum is unremarkable. Diffuse interstitial changes are probably chronic. The lungs are otherwise clear . There is no pneumothorax. The osseous structures are unremarkable. The patient is status post median sternotomy for prior CABG. Left subclavian pacemaker is present. IMPRESSION: No acute cardiopulmonary process. Continued follow-up is recommended. Images reviewed, interpreted, and dictated by Dr. Mohini Terry. Transcribed by Jennie Cobb PA-C. I have personally viewed, interpreted and dictated the examination. I have read and agree with the above final transcribed report. Signature Line Final Dictated by: JENNIE COBB PA-C Dictated DT/TM: 08/04/2020 1:24 pm [1] Type of Study: TTE procedure: Echo Doppler Color Flow Velocity, Echo Pulsed +/OR Continuous Wave, Echo-Contrast Echo, Echo 2D W/or W/O M-Mode Imaging , ECHO-2D ECHOCARDIOGRAM-PANEL, EC Echo Complete. Patient Status: Routine IP Study Location: PortableTechnical Quality: Limited visualization Amount - 1 ml Indications:Chest pain. Impression: Technically very limited study. Optison ultrasound enhancing agent administered to enhance endocardial borders. Normal sized left ventricle. Severe left ventricular hypertrophy. Visually estimated ejection fraction 45% +/- 5%. Abnormal systolic function. Increased left atrial pressure (Grade II diastolic dysfunction). Severely abnormal left atrial volume index 44.57 ml/m2. Dilated right ventricle. Right ventricular function appears abnormal. Status post TAVR Max 86mmHg Mean 55mmHg. Trace perivalvular regurgitation. Mildly dilated ascending aorta 3.98cm [2] Reason for Hospitalization Mr. Garza is an 85-year-old white male who presented with chest discomfort that was very discrete lasted for about 3 hours substernal in location relieved with nitroglycerin and nasal cannula O2. We were asked to admit and coordinate care with cardiology which I did on August 04 with the following description: Chief Complaint Tele hold Primary Care Provider KARON MCWILLIAMS MD-INT History of Present Illness Mr. Garza is an 85-year-old white male well-known to cardiology service due to multiple previous studies and interventions including biventricular pacer that currently is not active and patient has undergone TAVR and had coronary artery disease intervention and valuation with the last left heart catheter showing no significant blockages prior to this presentation. The patient had episode of self-limited chest pain yesterday followed by 4 sublingual nitroglycerin and presentation to outside ER at [facility] in [place]. Patient was subsequently transferred here for further evaluation with recent VITOR showing previous TAVR having thickened valves likely from adherent clot. Patient was exposed without anticoagulation due to intracranial bleeding and anticoagulation holiday after small right subdural hematoma while on aspirin and Plavix. Patient had evidence of complete heart block temporarily after TAVR which was likely the precipitating factor for all of these cluster of events. The patient presents now with sudden chest pain knowing that he is on warfarin for possible clots on the aortic valve and has been discovered to have troponin of 3.4. No significant EKG changes but right bundle branch block is in place with A. fib. Patient currently having no discomfort or pain and no evidence of organ injury on exam or laboratory data. Patient agrees for admission to the hospital for further evaluation by cardiology and hopes for reassurance regarding aortic valve replacement. He agrees to the work-up the plan and the consultations and agrees to proceed. 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 The patient was supratherapeutic on INR due to warfarin with a level greater than 5. Warfarin was held throughout his hospital stay and at time of discharge INR still 3.5. 1 dose of Eliquis was given prior to INR coming below 3 due to scheduled dosing before INR returned. Patient knows to start Eliquis 5 mg twice daily on August 07 as his INR should be below 3 at that time. He has had no further chest pain no trouble breathing no other complications. Cardiology has cleared him for outpatient transition of care without further investigative studies as he has had recent left heart catheterization showing no coronary artery blockages prior to the TAVR. Patient still has nonfunctional biventricular pacemaker in his left upper chest as he no longer needs pacemaker since he is not in complete heart block any longer. This complete heart block did occur after placement of TAVR. Vital Signs T: 36.4 ??C TMIN: 36.4 ??C TMAX: 37 ??C HR: 52(Monitored) RR: 17 BP: 100/61 SpO2: 96% Oxygen Settings (Last) Oxygen Therapy Mode: Room air (08/06/20 10:45:00) Oxygen Flow Rate: 95 Liter/Min (08/06/20 10:45:00) Physical Exam Awake alert pleasantly conversant oriented [...] no thyromegaly Lungs clear to auscultation bilaterally with good air movement Heart regular rate on exam but EKG may show some atrial fibrillation and I do not appreciate any significant murmur during recumbent exam Abdomen no bowel sounds soft nontender nondistended no organomegaly Extremities without clubbing cyanosis or edema distal pulses 2+ equal bilaterally, warm well perfused capillary refill less than 3 seconds Discharge Disposition Home Discharge Follow Up LACIE EASLEY - 11:15 AM SHRUTHI GARRISON - 11:30 AM KARON MCWILLIAMS - Within 1 week Discharge Medications (7) Active aspirin 81 mg, Daily atorvastatin 20 mg oral tablet 20 mg = 1 Tab, Oral, Tuesday Eliquis 5 mg oral tablet 5 mg = 1 Tab, Oral, [id number] hydroCHLOROthiazide-lisinopril 12.5 mg-20 mg oral tablet 1 Tab, Oral, Daily isosorbide mononitrate 20 mg oral tablet 20 mg = 1 Tab, Oral, BID multivitamin 1 Tab, Oral, Daily Nitrostat 0.4 mg sublingual tablet 0.4 mg = 1 Tab, PRN, SubLINgual, Q5Min Warfarin discontinued Code Status Start: 08/04/20 12:59:00 EDT, Full Code, Continuous Order Condition on Discharge Improved Consulting Physicians LACIE EASLEY MD-CAR - CP and TaVR leaflet clot/AoV stenosis WINNIE AYALA MD-CAR SCHAEFFER, KOFI ARCHULETA BRUCE E, MD WALTMAN, KOFI GARCIA, KOFI REGAN Current Diet Order Diet, Adult - Ordered -- Start: 08/05/20 12:23:00 EDT, Cardiac Diet, Isolation: Standard Precautions Follow Up Labs/Studies Blood Gases (Current Encounter/Past 24 Hours) No Blood Gas Results Found (Past 24 Hours) Electrolytes(BMP) Results (Current Encounter/Past 24 Hours) Sodium Level 139 mmol/L 08/05/2020 09:53 Potassium Level 3.8 mmol/L 08/05/2020 09:53 Chloride Level 107 mmol/L 08/05/2020 09:53 Carbon Dioxide Level 30 mmol/L 08/05/2020 09:53 Anion Gap 6 LOW 08/05/2020 10:00 Blood Urea Nitrogen 27 mg/dL HI 08/05/2020 09:59 Glucose Level 106 mg/dL 08/05/2020 09:53 Calcium Level 8.6 mg/dL 08/05/2020 09:53 Creatinine Level 1.20 mg/dL 08/05/2020 09:53 Cardiac Markers (Current Encounter/Past 24 Hours) No Cardiac Marker Results Found (Past 24 Hours) CBC Results (Current Encounter/Past 24 Hours) WBC 4.4 K/uL 08/05/2020 09:44 Hct 41.4 % 08/05/2020 09:44 Hgb 13.3 g/dL LOW 08/05/2020 09:44 Platelet Count 122 K/uL LOW 08/05/2020 09:44 CMP Results (Current Encounter/Past 24 Hours) Globulin 3.4 Gram/dL 08/05/2020 09:53 Bun/Creatinine 22.5 HI 08/05/2020 09:53 eGFR >60 mL/min/1.73m2 08/05/2020 09:53 eGFR NonAfrican 58 mL/min/1.73m2 LOW 08/05/2020 09:53 A/G Ratio 0.9 LOW 08/05/2020 09:59 Bun/Creatinine 22.5 HI 08/05/2020 10:00 Creatinine Level 1.20 mg/dL 08/05/2020 09:53 Protein Total 6.6 Gram/dL 08/05/2020 09:53 A/G Ratio 0.9 LOW 08/05/2020 09:53 eGFR NonAfrican 58 mL/min/1.73m2 LOW 08/05/2020 19:33 A/G Ratio 0.9 LOW 08/05/2020 19:33 Bun/Creatinine 22.5 WY 08/05/2020 19:33 Sodium Level 139 mmol/L 08/05/2020 09:53 Potassium Level 3.8 mmol/L 08/05/2020 09:53 Chloride Level 107 mmol/L 08/05/2020 09:53 Carbon Dioxide Level 30 mmol/L 08/05/2020 09:53 Anion Gap 6 LOW 08/05/2020 10:00 Alk Phos 62 Units/Liter 08/05/2020 09:53 ALT 25 Units/Liter 08/05/2020 09:53 AST 27 Units/Liter 08/05/2020 09:53 Blood Urea Nitrogen 27 mg/dL WY 08/05/2020 09:59 Glucose Level 106 mg/dL 08/05/2020 09:53 Albumin Level 3.2 Gram/dL LOW 08/05/2020 10:00 Bilirubin Total 0.5 mg/dL 08/05/2020 09:53 Calcium Level 8.6 mg/dL 08/05/2020 09:53 Coagulation Results (Current Encounter/Past 24 Hours) PT 37.0 Second(s) WY 08/06/2020 04:25 INR 3.5 WY 08/06/2020 04:25 Creatinine Clearance (Current Encounter/Past 24 Hours) Creatinine Level 1.20 mg/dL 08/05/2020 09:53 Bun/Creatinine 22.5 WY 08/05/2020 09:53 Estimated Creatinine Clearance 46.64 mL/Min 08/05/2020 09:53 Pending Labs Dispatched Culture Sputum and Stain (Sputum Culture and Stain) Specimen Type: Sputum, Routine collect, 08/04/20 16:20:00 EDT, 1-Time, Stop: 08/04/20 16:21:00 EDT, Nurse Collect Ordered PT/INR Prothrombin Time Specimen Type: Blood, Routine collect, 08/05/20 10:59:00 EDT, Daily, Nurse Collect PT/INR Prothrombin Time Specimen Type: Blood, Routine collect, 08/05/20 9:19:00 EDT, Daily, Nurse Collect Preliminary Culture Blood Specimen Type: Blood, Stat collect, 08/04/20 16:43:00 EDT, 1-Time, Stop: 08/04/20 16:43:00 EDT Culture Blood Specimen Type: Blood, Timed Study collect, 08/04/20 16:58:00 EDT, 1-Time, Stop: 08/04/20 16:58:00 EDT Time Spent on Discharge 45 minutes [1] CR Chest 1 Vw Port; Neha Leung, Annual Greenhouse Manager 08/04/2020 12:54 EDT [2] [facility]; WINNIE AYALA MD-CAR 08/04/2020 13:14 EDT [3] Admission H & P; CJ AVITIA MD-INT 08/04/2020 15:01 EDT Electronically signed by Nikita [facility] Conversion Acid Splicer Cerner at 01/26/2023 9:11 PM CDT documented in this encounter Plan of Treatment Not on file documented as of this encounter Visit Diagnoses Not on filedocumented in this encounter
--- OUTSIDE RECORDS SUMMARY | 2025-03-28 10:43 | XMS_ITS | Encounter Summary ---
Author Organization [employer] Address [address] [place] [address] Care Team Providers Care Middle School Tutor Name Role Phone Unavailable Primary Care Provider Unavailabl e Encounter Details Date Type Department Care Team (Late st Contact Info) Description 11/07/2019 Transcribed Document [facility] [place] [address] [place] [address] ProviderPrasanth MD [facility] [place] [address] Social History Tobacco Use Types Packs/Day Years Used Date Smoking Tobacco: Never Assessed Sex and Gender Information Value Date Recorded Sex Assigned at Not on file Legal Sex Male 6:49 PM CDT Gender Identity Not on file Sexual Orientation Not on file documented as of this encounter Miscellaneous Notes * Cerner Conversion Note - Historical ProviderMD - 11/07/2019 5:00 PM TOP STOP ATTACHER Chart Check - Review Order Profile Entered On: 11/07/2019 17:33 EST Performed On: 11/07/2019 17:00 EST by MARIBELL MIMS, RN Chart Check Powerplans Initiated/Discontinued as Appropriate : Yes MARIBELL MIMS RN - 11/07/2019 17:33 EST Electronically signed by Nikita [facility] Conversion Fur Repair Inspector Cerner at 01/26/2023 8:59 PM CDT documented in this encounter Plan of Treatment Not on file documented as of this encounter Visit Diagnoses Not on filedocumented in this encounter
--- OUTSIDE RECORDS SUMMARY | 2025-03-28 10:43 | XMS_ITS | Encounter Summary ---
Author Organization [employer] Address [address] [place] [address] Care Team Providers Care Firer Low Pressure Name Role Phone Unavailable Primary Care Provider Unavailabl e Encounter Details Date Type Department Care Team (Late st Contact Info) Description 08/06/2020 Transcribed Document [facility] Family Medicine [address] [place] [address] ProviderPrasanth MD [address] [place] [address] Social History Tobacco Use Types Packs/Day Years Used Date Smoking Tobacco: Never Assessed Sex and Gender Information Value Date Recorded Sex Assigned at Not on file Legal Sex Male 6:49 PM CDT Gender Identity Not on file Sexual Orientation Not on file documented as of this encounter Miscellaneous Notes * Cerner Conversion Note - Prasanth ProviderMD - 08/06/2020 9:30 AM CDT UM Authorization Entered On: 08/06/2020 9:30 EDT Performed On: 08/06/2020 9:30 EDT by DIVINA HUGHES Rn-Utilization Review Primary Insurance Authorization Authorization and Policy Numbers : Insurance 1 Health Plan: MEDICARE Policy Number: [id number] Authorization Number: Insurance Primary Name : MEDICARE Policy Number: [id number] Historical Authorization Comments-Primary : No Authorization Comments Found DIVINA HUGHES Rn-Utilization Review - 08/06/2020 9:30 EDT documented in this encounter Plan of Treatment Not on file documented as of this encounter Visit Diagnoses Not on filedocumented in this encounter
--- OUTSIDE RECORDS SUMMARY | 2025-03-28 10:43 | XMS_ITS | Encounter Summary ---
Author Organization [employer] Address [address] [place] [address] Care Team Providers Care Wheelchair Driver Name Role Phone Unavailable Primary Care Provider Unavailabl e Encounter Details Date Type Department Care Team (Late st Contact Info) Description 09/26/2019 Transcribed Document [facility] [place] [facility] [place] [address] ProviderPrasanth MD [facility] [place], [place] [address] Social History Tobacco Use Types Packs/Day Years Used Date Smoking Tobacco: Never Assessed Sex and Gender Information Value Date Recorded Sex Assigned at Not on file Legal Sex Male 6:49 PM CDT Gender Identity Not on file Sexual Orientation Not on file documented as of this encounter Miscellaneous Notes * Cerner Conversion Note - Prasanth ProviderMD - 09/26/2019 11:20 AM JEWELRY MANAGER Initial Discharge Planning Entered On: 09/26/2019 11:23 EST Performed On: 09/26/2019 11:20 EST by JAIMEE CARTAGENA Substitute Nurse-Solar Sales Representative And Assessor Initial Assessment I Previously Documented Living Environment : No qualifying data available. Living Situation : Home Patient Lives With : Spouse Emergency Contact #1 : Rosa Elena Cormier Emergency Contact #1 Emergency Contact #1 Relationship : Emergency Contact #2 : na Emergency Contact #2 Phone Number : na Emergency Contact #2 Relationship : na Enter Doctors Name : Marcelino Caldera Does Patient have PCP Listed? : Yes Legal Guardian : No Is Guardianship Needed : No JAIMEE CARTAGENA Substitute Nurse-Solar Sales Representative And Assessor - 09/26/2019 11:20 EST Initial Assessment II Sensory and Motor Deficits : None Current Home Treatments and Equipment : None JAIMEE CARTAGENA Substitute Nurse-Solar Sales Representative And Assessor - 09/26/2019 11:20 EST Discharge Needs I Anticipated Discharge To, CM : Home independently Current Home Treatment/Equipment : Current Home Treatment/Equipment No qualifying data available. Post Acute/Home Treatments : None Documentation Status Complete : Yes JAIMEE CARTAGENA Substitute Nurse-Solar Sales Representative And Assessor - 09/26/2019 11:20 EST Discharge Needs II Professional Skilled Services : Professional Skilled Services No qualifying data available. Needs Assistance with Transportation : No Discharge Options Discussed with Patient : Discharge transportation, Home Health JAIMEE CARTAGENA Substitute Nurse-Solar Sales Representative And Assessor - 09/26/2019 11:20 EST Narrative Note Narrative Note : Patient is a high readmission risk. He was out of room during assessment and Cm spoke with . reported that patient is ADl independent and that he still prays [place]. denied patient ever having SNF or HH. She denied patient having any discharge needs. She stated that she can transport patient home. CM will continue to follow. JAIMEE CARTAGENA Substitute Nurse-Solar Sales Representative And Assessor - 09/26/2019 11:20 EST documented in this encounter Plan of Treatment Not on file documented as of this encounter Visit Diagnoses Not on filedocumented in this encounter
--- OUTSIDE RECORDS SUMMARY | 2025-03-28 10:43 | XMS_ITS | Encounter Summary ---
Author Organization [employer] Address [address] [place] [address] Care Team Providers Care Latin American Studies Director Name Role Phone Unavailable Primary Care Provider Unavailabl e Encounter Details Date Type Department Care Team (Late st Contact Info) Description 11/07/2019 Transcribed Document [facility] [place] Medicine [facility] [place] [address] ProviderPrasanth MD [facility] [place] [address] Social History Tobacco Use Types Packs/Day Years Used Date Smoking Tobacco: Never Assessed Sex and Gender Information Value Date Recorded Sex Assigned at Not on file Legal Sex Male 6:49 PM CDT Gender Identity Not on file Sexual Orientation Not on file documented as of this encounter Miscellaneous Notes * Cerner Conversion Note - Prasanth ProviderMD - 11/07/2019 10:09 AM TEST DESKMAN Patient: SHIRA GARZA HORACIO Age: 84 years Sex: Male : 1935 Associated Diagnoses: None Author: CELESTINA RUIZ APRN [facility] CARDIOLOGY PROGRESS NOTE: DIAGNOSIS: 1. intermittent complete heart block with pauses SUBJECTIVE: denies presyncope, dizziness, nausea, chest pain, palpitations Vitals Signs (last 24 hrs) Last Charted Minimum Maximum Temp 97.8 (NOV 07 08:00) 97.8 (NOV 07 08:00) 98.2 (NOV 06 12:00) Apical HR L 58 (NOV 07 02:04) L 56 (NOV 06 22:34) L 58 (NOV 07 02:04) Mon HR 51 (NOV 07 08:00) 34 (NOV 06 12:00) 63 (NOV 06 16:00) Resp Rate L 13 (NOV 07 08:00) L 13 (NOV 07 08:00) H 43 (NOV 06 11:00) SBP 139 (NOV 07 08:00) 119 (NOV 06 12:00) H 184 (NOV 06 22:00) DBP 80 (NOV 07 08:00) L 58 (NOV 06 12:00) 85 (NOV 06 22:00) MAP 104 (NOV 07 08:00) 83 (NOV 06 12:00) 122 (NOV 06 22:00) SpO2 L 89 (NOV 07 08:00) L 89 (NOV 06 13:00) 97 (NOV 06 23:00) Clinical Weight CLINICALWEIGHT: 93.1 kg (11/04/19:29:00) Routine Weight Calculation: 89.7 kg (11/07/19 03:18:00) Routine Weight Entry Format: Metric (11/07/19 03:18:00) Routine Weight Source: Bed scale (11/07/19 03:18:00) Routine Weight, Kilograms: 89.7 kg (11/07/19 03:18:00) [facility] Body Weight: 70 kg (11/04/19 21:29:00) Intake & Output Totals Last 24 Hours (7a-7a) Intake (2 Events) Medications (10.25 mL) Output (6 Events) Alfonso Catheter (177 mL) Urine Voided (Volume) (570 mL) Input Total: 10.25 mL Output Total: 747 mL Balance: -736.75 mL TELE: intermittent complete heart block with [...] last dose on Tuesday longstanding history of bradycardia, 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
--- OUTSIDE RECORDS SUMMARY | 2025-03-28 10:43 | XMS_ITS | Encounter Summary ---
Author Organization [employer] Address [address] [place] [address] Care Team Providers Care Systems Design Engineer Name Role Phone Unavailable Primary Care Provider Unavailabl e Encounter Details Date Type Department Care Team (Late st Contact Info) Description 06/04/2021 Transcribed Document [facility] [place] [address] [place] [address] ProviderPrasanth MD [facility] [place], [place] [address] Social History Tobacco Use Types Packs/Day Years Used Date Smoking Tobacco: Never Assessed Sex and Gender Information Value Date Recorded Sex Assigned at Not on file Legal Sex Male 6:49 PM CDT Gender Identity Not on file Sexual Orientation Not on file documented as of this encounter Miscellaneous Notes * Cerner Conversion Note - Historical ProviderMD - 06/04/2021 11:21 AM CDT Stroke/Warfarin Instructions Entered On: 06/04/2021 11:21 EDT Performed On: 06/04/2021 11:21 EDT by Eri Loco, RN Education Topics: Anticoagulant Education Anticoagulant : Anticoagulant other than warfarin Compliance Issues *Q : Verbalizes understanding Diet *Q : Verbalizes understanding Adverse drug reactions/interactions *Q : Verbalizes understanding Action/Interaction with Other Drugs : Verbalizes understanding Follow-up care/monitoring *Q : Verbalizes understanding Follow-up Care Details : Physician's office/clinic Eri Loco RN - 06/04/2021 11:21 EDT documented in this encounter Plan of Treatment Not on file documented as of this encounter Visit Diagnoses Not on filedocumented in this encounter
--- OUTSIDE RECORDS SUMMARY | 2025-03-28 10:43 | XMS_ITS | Encounter Summary ---
Author Organization [employer] Address [address] [place] [address] Care Team Providers Care Rawhide Trimmer Name Role Phone Unavailable Primary Care Provider Unavailabl e Encounter Details Date Type Department Care Team (Late st Contact Info) Description 12/30/2020 Transcribed Document [facility] Family Medicine [facility] [place] [address] ProviderPrasanth MD [address] [place] [address] [id number] Social History Tobacco Use Types Packs/Day Years Used Date Smoking Tobacco: Never Assessed Sex and Gender Information Value Date Recorded Sex Assigned at Not on file Legal Sex Male 6:49 PM CDT Gender Identity Not on file Sexual Orientation Not on file documented as of this encounter Miscellaneous Notes * Cerner Conversion Note - Historical ProviderMD - 12/30/2020 10:37 AM CDT Event Note Entered On: 12/30/2020 10:43 EDT Performed On: 12/30/2020 10:37 EDT by Mini Abreu RN Event Note Description of Event : Pt returned from procedure, placed on monitor, call patrick within reach, family at BS. Mini Abreu RN - 12/30/2020 10:42 EDT documented in this encounter Plan of Treatment Not on file documented as of this encounter Visit Diagnoses Not on filedocumented in this encounter
--- OUTSIDE RECORDS SUMMARY | 2025-03-28 10:43 | XMS_ITS | Encounter Summary ---
Author Organization [employer] Address [address] [place] [id number] Care Team Providers Care Online Advertising Manager Name Role Phone Unavailable Primary Care Provider Unavailabl e Encounter Details Date Type Department Care Team (Late st Contact Info) Description 10/29/2019 Transcribed Document [facility] Family Medicine [facility] [place] [address] ProviderPrasanth MD [facility] [place], [place] [address] Social History Tobacco Use Types Packs/Day Years Used Date Smoking Tobacco: Never Assessed Sex and Gender Information Value Date Recorded Sex Assigned at Not on file Legal Sex Male 6:49 PM CDT Gender Identity Not on file Sexual Orientation Not on file documented as of this encounter Miscellaneous Notes * Cerner Conversion Note - Prasanth ProviderMD - 10/29/2019 7:03 AM AUTOMOTIVE HEAVY MECHANIC Admission History, Adult Entered On: 10/29/2019 12:13 EST Performed On: 10/29/2019 12:03 EST by Rosalee Barrios RN Advance Directive Patient has Advance Directive *Q : Yes, Advance Directive on file Request Family/Rep to Provide Copy of AD : Yes Advance Directive Type : Living will Copy Advance Directive Verified/on Chart : No Rosalee Barrios RN - 10/29/2019 12:03 EST Anesthesia/Transfusion History Family History of Anesthesia Reaction : No prior transfusion(s) Transfusion History : Prior anesthesia without reaction Family History of Anesthesia Reaction : None Rosalee Barrios RN - 10/29/2019 12:03 EST Functional Assessment Living Situation : Home Persons Assisting Patient at Home : Spouse Mobility Assistance Prior to Admission : Independent DEVINE Hx Falls Immediate/Within 3 Months : No Current Home Treatments : None Rosalee Barrios RN - 10/29/2019 12:03 EST General Info Arrived From : Home Mode of Arrival on Unit : Ambulatory Legal Guardian : No Support Person/Patient Expansion Envelope Maker Hand : Yes Support Person/Pt Rep Name : Rosa Elena Cormier- spouse Support Person/Pt Rep Contact Information : [phone] home Want Family/Rep/Phys Notified of Admit : No Emergency Contact #1 : Rosa Elena Cormier Emergency Contact #1 Emergency Contact #1 Relationship : Emergency Contact #2 : na Emergency Contact #2 Phone Number : na Emergency Contact #2 Relationship : na Information Obtained From : Patient Primary Language : Amharic Preferred Communication Mode : Verbal Communication Barrier : None Objects to Sharing Info w Family : No Rosalee Barrios RN - 10/29/2019 12:03 EST Fall Risk Scales ABCs Fall Injury Risk Identification : Surgery ABC Fall Injury Risk : Moderate to high injury risk Injury Moderate to High Risk Interventions : Supervise toileting as indicated, Transport methods appropriate to patient DEVINE Hx Falls Immediate/Within 3 Months : No Devine Secondary Diagnosis : No DEVINE Use of Ambulatory Aid : None DEVINE IV Therapy or IV Access : Yes Devine Gait/Transferring : Normal, bedrest, immobile Devine Mental Status : Oriented to own ability Devine Fall Risk Score : 20 DEVINE Fall Scale Risk Level : 0-24 Low Risk Hessel Fall Interventions : Adequate lighting, Assistive devices within reach, Bed in low position, Call device within reach, Hourly comfort/safety rounds, Non-slip footwear, Personal items within reach, Reinforced to call for assistance before getting out of bed, Room free of clutter/spills, Upper side-rails up, Wheels locked, Wires/Cords secured Rosalee Barrios RN - 10/29/2019 12:03 EST Fall Risk Education Grid Alarms : Verbalizes understanding Assistive Equipment Use : Verbalizes understanding Bed Height/Stabilization : Verbalizes understanding Call light use : Verbalizes understanding Door Open : Verbalizes understanding Environmental Management : Verbalizes understanding Eyeglasses Use : Verbalizes understanding Fall Community Resources : Verbalizes understanding Fall Contract/Letter : Verbalizes understanding Fall Prevention in the Home : Verbalizes understanding Fall Prevention Protocol : Verbalizes understanding Hearing Aid Use : Verbalizes understanding Home Risk Assessment : Verbalizes understanding Need Constant Observation : Verbalizes understanding Night Light Use : Verbalizes understanding Nonskid Footwear Use : Verbalizes understanding Notification of Staff When Leaving : Verbalizes understanding Orthostatic Hypotension Precautions : Verbalizes understanding Personal Article Availability : Verbalizes understanding Prevention Responsibility Family : Verbalizes understanding Prevention Responsibility Patient : Verbalizes understanding Risk Alert Methods : Verbalizes understanding Risk Factors : Verbalizes understanding Safety Aids : Verbalizes understanding Siderails use/risks : Verbalizes understanding Special Assistive Devices : Verbalizes understanding Staff Responsiveness : Verbalizes understanding Symptom Identification & Action Plan *Q : Verbalizes understanding Symptom Reporting : Verbalizes understanding Toileting Schedule : Verbalizes understanding Transfer/Mobility Techniques : Verbalizes understanding Urinal/Bedpan Availability : Verbalizes understanding Wait for Assistance : Verbalizes understanding Wheelchair Safety : Verbalizes understanding Rosalee Barrios RN - 10/29/2019 12:03 EST Barriers to Learning : None evident Teaching Method : Explanation Learning Style Preferences Patient : None Fall Risk Scale Calc Temp : 0 Rosalee Barrios RN - 10/29/2019 12:03 EST Health Histories Smoking Status : Former smoker, quit more than 30 days ago Smokeless Tobacco Status : Never Rosalee Barrios RN - 10/29/2019 12:03 EST Social History (As Of: 10/29/2019 12:13:15 EST) Tobacco: 3 cigs in evening- 1954- 2007. quit 2007. Smoking Status. (Last Updated: 11/14/2018 07:19:01 EST by RADHA TERRAZAS, WILL) Alcohol: Alcohol Use History No. (Last Updated: 11/14/2018 07:19:08 EST by RADHA TERRAZAS, WILL) Substance Abuse: Drug Use Hx: No. Use in Last 12 Months: No. (Last Updated: 11/14/2018 07:19:13 EST by RADHA TERRAZAS, WILL) Home/Environment: Lives with Spouse. Living situation: Home/Independent. (Last Updated: 10/26/2019 09:41:52 EST by HILDA ANTHONY RN) Employment/School: Employed (Last Updated: 10/26/2019 09:41:57 EST by HILDA ANTHONY RN) Height and Weight, Clinical Dosing Height Source : Measured Height Entry Format : [place] Height, Feet : 5 ft(Converted to: 152 cm, 60 Inch) Height, Inches : 9 Inch(Converted to: 0 ft 9 Inch, 22.86 cm) Clinical Height : 175.26 cm Weight Source : Standing scale Weight Entry Format : [place] Clinical Dosing Weight : 92.5 kg Weight, Pounds : 203 lb Weight, Ounces : 8 oz Body Surface Area (BSA) : 2.08 m2 Body Mass Index : 30.1 kg/m2 (HI) [place] Body Weight : 70 kg Rosalee Barrios RN - 10/29/2019 12:03 EST Infectious Disease History Physical contact outside [place] in the last 30 days : No Infectious Disease History : Chicken pox/Shingles, Influenza, Measles, Mumps, Pertussis (Whooping cough) Tuberculosis Symptoms : None Rosalee Barrios RN - 10/29/2019 12:03 EST Influenza Vaccine Asmt, Adult Previous Vaccines from Immunization Schedule : No qualifying data available. Influenza Immunization, Current Season : Yes Rosalee Barrios RN - 10/29/2019 12:03 EST Pneumococcal Vaccine Previous Vaccines from Immunization Schedule : No qualifying data available. Pneumonia Immunization Received : Yes Rosalee Barrios RN - 10/29/2019 12:03 EST Nutrition History Feeding Ability : Independent Adaptive Feeding Equipment : None Adaptive Feeding Equipment : Regular Eating Poorly Due to Decreased Appetite : No Unplanned Weight Loss in Past 3-6 Months : No Malnutrition Screening Tool Total(mal) : 0 Malnutrition Screening Tool Risk Level : Patient not at risk Rosalee Barrios RN - 10/29/2019 12:03 EST Cavalier Suicide Severity Rating Scale (C-SSRS) CSSRS Past Month Wish to be : No CSSRS Past Month Suicidal Thoughts : No CSSRS Lifetime Suicide Behavior : No Suicide Severity Rating Score : 0 Suicide Severity Rating : No Additional Care Required at this time Rosalee Barrios RN - 10/29/2019 12:03 EST Psychosocial History Currently in Unsafe Situation : No Rosalee Barrios RN - 10/29/2019 12:03 EST Sleep Apnea Risk Assmt Hx of Obstructive Sleep Apnea Diagnosis : No Snore Loudly : Yes Tired, Fatigued, or Sleepy During Day : No Observed Stopping Breathing During Sleep : Yes Have/Are Being Treated for Hypertension : Yes BMI Greater Than 35 kg/m2 : No Age over 50 Years Old : Yes Neck Circumference Greater Than 40 cm : No Gender Male : Yes STOP-BANG Sleep Apnea Risk Level Score : 5 Sleep Apnea Risk Comment : tested poitive for sleep apnea > 10 years ago could not use the c-pap Rosalee Barrios RN - 10/29/2019 12:03 EST Valuables and Belongings Valuables and Belongings : Clothing Clothing : Common streetwear Clothing Disposition : With patient Rosalee Barrios RN - 10/29/2019 12:03 EST Electronically signed by [facility] Conversion Car Stereo Installer Cerner at 01/26/2023 8:53 PM CDT documented in this encounter Plan of Treatment Not on file documented as of this encounter Visit Diagnoses Not on filedocumented in this encounter
--- OUTSIDE RECORDS SUMMARY | 2025-03-28 10:43 | XMS_ITS | Encounter Summary ---
Author Organization [employer] Address [address] [place] [address] Care Team Providers Care Credit Union Manager Name Role Phone Unavailable Primary Care Provider Unavailabl e Encounter Details Date Type Department Care Team (Late st Contact Info) Description 12/30/[address] [facility] [place] Family Medicine [address] [place] [address] ProviderPrasanth MD [address] [place] [id number] Social History Tobacco Use Types Packs/Day Years Used Date Smoking Tobacco: Never Assessed Sex and Gender Information Value Date Recorded Sex Assigned at Not on file Legal Sex Male 6:49 PM CDT Gender Identity Not on file Sexual Orientation Not on file documented as of this encounter Miscellaneous Notes * Cerner Conversion Note - Prasanth ProviderMD - 12/30/2020 11:43 AM CDT [facility] [place] [address] MIYA GARZAALD HORACIO :1935 Visit Time:12/30/2020 Your Visit Summary Your Care Team Admitting Physician - ABEBA HOOKS MD Attending Physician - ABEBA HOOKS MD Primary Care Physician - KARON MCWILLIAMS MD-INT Referring Physician - LACIE ALVA MD-CAR Your Diagnosis Nonrheumatic aortic valve disorder, unspecified, Nonrheumatic aortic valve disorder, unspecified Discharge Vitals Temperature 36.2 ??C Heart Rate (Monitored) 58 Respiratory Rate 17 Blood Pressure 119/58 What to do next Instructions From Your Care Team Diet after Discharge: Resume usual diet as tolerated Activity after Discharge: Rest and relax today, then activity as tolerated Driving Restrictions: No driving for 24 hours. Showering/Bathing: May shower. Medications: No changes to your current home medications., _, Follow-Up Appointments Follow Up with LACIE ALVA MD-CAR When 02/02/2021 10:15 AM EDT Where: [address] [place] [address]- Medications What How Much When Instructions Next Dose isosorbide mononitrate 20 Milligram(s) Oral Two Times A Day atorvastatin (atorvastatin 20 mg oral tablet) 1 Tablet(s) Oral Tuesday hydrochlorothiazide-lisinopril (hydroCHLOROthiazide-lisinopril 12.5 mg-20 mg oral tablet) 1 Tablet(s) Oral Every Day metoprolol (Metoprolol Succinate ER) 25 Milligram(s) Oral Every Day multivitamin 1 Tablet(s) Oral Every Day nitroglycerin (Nitrostat 0.4 mg sublingual tablet) 1 Tablet(s) SubLINgual Every 5 minutes as needed for as needed for chest pain ranolazine 500 Milligram(s) Oral Two Times A Day warfarin 5 Milligram(s) Oral Every Day alternates with 2.5 mg Take your medications faithfully. Do NOT skip [...] This Visit No Immunizations Found Education Materials Transesophageal Echocardiogram Transesophageal echocardiogram (VITOR) is a test that uses sound waves to take pictures of your heart. VITOR is done by passing a flexible tube down the esophagus. The esophagus is the tube that carries food from the throat to the stomach. The pictures give detailed images of your heart. This can help your doctor see if there are problems with your heart. What happens before the procedure? Staying hydrated Follow instructions from your doctor about hydration, which may include: ??? Up to 3 hours before the procedure ??? you may continue to drink clear liquids, such as: ? Water. ? Clear fruit juice. ? Black coffee. ? Plain tea. Eating and drinking Follow instructions from your doctor about eating and drinking, which may include: ??? 8 hours before the procedure ??? stop eating heavy meals or foods such as meat, fried foods, or fatty foods. ??? 6 hours before the procedure ??? stop eating light meals or foods, such as toast or cereal. ??? 6 hours before the procedure ??? stop drinking milk or drinks that contain milk. ??? 3 hours before the procedure ??? stop drinking clear liquids. General instructions ??? You will need to take out any dentures or retainers. ??? Plan to have someone take you home from the hospital or clinic. ??? If you will be going home right after the procedure, plan to have someone with you for 24 hours. ??? Ask your doctor about: ? Changing or stopping your normal medicines. This is important if you take diabetes medicines or blood thinners. ? Taking yqvw-drd-mepxmvu medicines, vitamins, herbs, and supplements. ? Taking medicines such as aspirin and ibuprofen. These medicines can thin your blood. Do not take these medicines unless your doctor tells you to take them. What happens during the procedure? To lower your risk of infection, your doctors will wash or clean their hands. ??? An IV will be put into one of your veins. ??? You will be given a medicine to help you relax (sedative). ??? A medicine may be sprayed or gargled. This numbs the back of your throat. ??? Your blood pressure, heart rate, and breathing will be watched. ??? You may be asked to lay on your left side. ??? A bite block will be placed in your mouth. This keeps you from biting the tube. ??? The tip of the VITOR probe will be placed into the back of your mouth. ??? You will be asked to swallow. ??? Your doctor will take pictures of your heart. ??? The probe and bite block will be taken out. The procedure may vary among doctors and hospitals. What happens after the procedure? Your blood pressure, heart rate, breathing rate, and blood oxygen level will be watched until the medicines you were given have worn off. ??? When you first wake up, your throat may feel sore and numb. This will get better over time. You will not be allowed to eat or drink until the numbness has gone away. ??? Do not drive for 24 hours if you were given a medicine to help you relax. Summary ??? VITOR is a test that uses sound waves to take pictures of your heart. ??? You will be given a medicine to help you relax. ??? Do not drive for 24 hours if you were given a medicine to help you relax. This information is not intended to replace advice given to you by your health care provider. Make sure you discuss any questions you have with your health care provider. Document Revised: 06/15/2019 Document Reviewed: 12/28/2017 [employer] Patient Education ?? 2020 [employer] Moderate Conscious Sedation, Adult, Care After [...] you are awake and alert. ??? Take vgtv-kdj-fnlwafk and prescription medicines only as told by [...] with your health care provider. Document Revised: 09/08/2018 Document Reviewed: 01/15/2017 [employer] Patient Education ?? 2020 [employer] FAQ ??? Patient COVID-19 testing Why do I need a COVID-19 test in the hospital? We are testing patients as part of an overall effort to ensure the safety of our patients, staff and providers, and to limit the spread of the novel coronavirus throughout our community. What happens if I test positive for COVID-19? Any scheduled elective procedure will be postponed and treatment for the coronavirus will follow the protocol that is currently in place. If you are admitted to the hospital, we will use droplet precautions for patients who test positive for COVID-19. If I???m a patient, should I wear a mask? Yes. When you are in your room alone, you may remove your mask. When anyone enters your room, you should put your mask back on. Will I be allowed to have visitors if I am admitted to the hospital with COVID-19? As part of the standard care for COVID-19 patients, visitors will not be allowed to protect them from potential exposure to the novel coronavirus. If you have a health care support person with you during a pending test and the test comes back positive, your visitor will be asked to leave and follow up with their primary care provider. Public health may reach out to them to complete contact tracing. Will my status as COVID-19 positive be reported? Because COVID-19 is a public health threat, all positive cases are reported through the local health department and the [place] Department for Public Health. Those organizations are responsible for monitoring public health threats. What is contact tracing? The public health departments at the state and local levels use contact tracing to prevent the spread of infectious disease. They will work to identify people who have COVID-19 and their contacts who may have been exposed. What does contact tracing involve? Typically, a contact tracer will interview patients with COVID-19 to identify everyone with whom they have had close contact during the time they may have been infectious and then notify those contacts of potential exposure and refer them for testing. They may monitor the contacts for symptoms of COVID-19 and connect the contacts with services they may need during a recommended self-quarantine period. The patient???s name is not revealed to anyone during the contact tracing interviews, even if a contact asks. Who would be considered a ???close contact?? ? According to the CDC, a close contact is defined as someone who was within 6 feet of an infected person for at least 15 minutes, starting from 48 hours before the person began feeling sick until the time the patient was isolated. What can a close contact expect during this process? A contact tracer from the health department will contact that person to inform them they have been exposed to COVID-19. If that happens, the contact should self-quarantine for 14 days, starting from the last date of possible exposure, monitor their health, wear a face covering and maintain social distancing ??? at least 6 feet from others at all times. Should a close contact seek medical care? Close contacts should take their temperature twice a day, watch for COVID-19 symptoms and notify the health department if they develop symptoms. They should also notify people with whom they have had recent close contact if they become ill. They should seek medical care if symptoms worsen or become severe, including trouble breathing, persistent pain or pressure in the chest, confusion, inability to wait or stay awake, or bluish lips or face. Steps to Help Prevent the Spread of COVID-19 if You Are Sick In all cases, follow the guidance of your health care provider and local health department. Your local health department determines the length of time for quarantine and will notify you with detailed information. Monitor your symptoms. Common symptoms of COVID-19 include fever, fatigue, diarrhea/vomiting, loss of taste and smell, and cough. Trouble breathing is a more serious symptom that means you should get medical attention. If you develop emergency warning signs for COVID-19 get medical attention immediately. Emergency warning signs include*: ??? Trouble breathing ??? Persistent pain or pressure in the chest ??? New confusion or inability to arouse ??? Bluish lips or face *This list is not all inclusive. Please consult your medical provider for any other symptoms that are severe or concerning. Call 911 if you have a medical emergency. If you have a medical emergency and need to call 911, notify the mold press operator that you have, or think you might have, COVID-19. If possible, put on a facemask before medical help arrives. Stay home except to get medical care. ??? Stay home: Most people with COVID-19 have mild illness and can recover at home without medical care. Do not leave your home, except to get medical care. Do not visit public areas. ??? Stay in touch with your doctor. Call before you get medical care. Be sure to get care if you have trouble breathing, or have any other emergency warning signs, or if you think it is an emergency. Separate yourself from other people in your home; this is known as home isolation. ??? Stay away from others: As much as possible, stay away from others. You should stay in a specific ???sick room?? if possible, and away from other people in your home. Use a separate bathroom, if available. Call ahead before visiting your doctor. ??? Call ahead: Many medical visits for routine care are being postponed or done by phone or telemedicine. If you have a medical appointment that cannot be postponed, call your doctor's office, and tell them you have or may have COVID-19. This will help the office protect themselves and other patients. If you are sick, wear a facemask in the following situations, if available. ??? If you are sick: You should wear a facemask, if available, when you are around other people (including before you enter a health care provider???s office). ??? If you are caring for others: If the person who is sick is not able to wear a facemask (for example, because it causes trouble breathing), then as their caregiver, you should wear a facemask when in the same room with them. Visitors, other than caregivers, are not recommended. Cover your coughs and sneezes. ??? Cover: Cover your mouth and nose with a tissue when you cough or sneeze. ??? Dispose: Throw used tissues into a lined trash can. ??? Wash hands: Immediately wash your hands with soap and water for at least 20 seconds. If soap and water are not available, clean your hands with an alcohol-based hand vb net programmer that contains at least 60% alcohol. Clean your hands often. ??? Wash hands: Wash your hands often with soap and water for at least 20 seconds when visibly dirty. This is especially important after blowing your nose, coughing or sneezing, and going to the bathroom, and before eating or preparing food. ??? Hand vb net programmer: Use an alcohol-based hand vb net programmer with at least 60% alcohol, covering all surfaces of your hands and rubbing them together until they feel dry. ??? Avoid touching: Avoid touching your eyes, nose and mouth with unwashed hands. Avoid sharing personal household items. ??? Do not share: Do not share dishes, drinking glasses, cups, eating utensils, towels or bedding with other people in your home. ??? Wash thoroughly after use: After using these items, wash them thoroughly with soap and water or put them in the senior interior designer. Clean all high-touch surfaces every day. Clean high-touch surfaces in your isolation area (???sick room?? and bathroom) every day; let a caregiver clean and disinfect high-touch surfaces in other areas of the home. ??? Clean and disinfect: Routinely clean high-touch surfaces in your ???sick room?? and bathroom. Let someone else clean and disinfect surfaces in common areas, but not your bedroom and bathroom. ? If a caregiver or other person needs to clean and disinfect a sick person???s bedroom or bathroom, they should do so on an as-needed basis. The caregiver/other person should wear a mask and wait as long as possible after the sick person has used the bathroom. ? High-touch surfaces include phones, remote controls, counters, tabletops, doorknobs, bathroom fixtures, toilets, keyboards, tablets and bedside tables. ??? Clean and disinfect areas that may have blood, stool, or body fluids on them. ??? Household it support analyst and disinfectants: Clean the area or item with soap and water or another detergent if it is dirty. Then, use a household disinfectant. ??? Be sure to follow the instructions on the label to ensure safe and effective use of the product. Many products recommend keeping the surface wet for several minutes to ensure germs are killed. Many also recommend precautions such as wearing gloves and making sure you have good ventilation during use of the product. ??? Most EPA-registered household disinfectants should be effective. A full list of disinfectants can be found here: https://www.epa.gov/pesticide-registration/vmvl-u-dahuactqzoxsi-eak-hmtywav-mb rs-cov-2 Emergency Awareness and Preventative Care STROKE is [...] Assistance with quitting is available by contacting 2-626-YRHR-NOW. This is a free resource providing counseling, [...] CPR? There are two easy steps: Call if you see a teen or adult [...] This Visit (last charted value for your 12/30/2020 visit) Echo 12/30/2020 9:12 AM EC VITOR Complete: EC VITOR Complete Patient Name:KAYLA SHIRAHEAVEN LEONARD I have received and understand this information and was given the opportunity to ask questions. Patient/Regional Sales Associate Name: Patient/Regional Sales Associate Signature: Relationship to Patient: Clinician/Hospital Regional Sales Associate Signature: Date: documented in this encounter Plan of Treatment Not on file documented as of this encounter Visit Diagnoses Not on filedocumented in this encounter
--- OUTSIDE RECORDS SUMMARY | 2025-03-28 10:43 | XMS_ITS | Encounter Summary ---
Author Organization [employer] Address [address] [place] [address] Care Team Providers Care Office Machine Service Supervisor Name Role Phone Unavailable Primary Care Provider Unavailabl e Encounter Details Date Type Department Care Team (Late st Contact Info) Description 06/04/2021 Transcribed Document [facility] [place] [facility] [place] [address] ProviderPrasanth MD [address] [place] [address] Social History Tobacco Use Types Packs/Day Years Used Date Smoking Tobacco: Never Assessed Sex and Gender Information Value Date Recorded Sex Assigned at Not on file Legal Sex Male 6:49 PM CDT Gender Identity Not on file Sexual Orientation Not on file documented as of this encounter Miscellaneous Notes * Cerner Conversion Note - Prasanth Sanchez MD - 06/04/2021 11:49 AM CDT Patient: SHIRA CORMIER HORACIO Age: 85 Years Sex: Male : 1935 Admit Date 06/02/2021 12:02 Discharge Date June 04, 2021 Primary Care Provider MARTHA BURRELL MD-INT Discharge Diagnosis Chest pain 06/02/2021 R07.9 ICD-10-CM Elevated troponin 06/02/2021 R77.8 ICD-10-CM Weakness 06/02/2021 R53.1 ICD-10-CM Elevated troponin Likely non-STEMI once again with [...] could be causing cardiac and neurologic symptoms. Cardiology is recommending aspirin and Eliquis and when patient is stable for some time from TIA symptoms, he will have outpatient left heart catheterization. NSTEMI (non-ST elevated myocardial infarction) Treatment as above aspirin for now with possibility of further anticoagulation needed TIA due to embolism, cardiology has recommended Eliquis will start 5 mg twice daily along with 81 mg aspirin daily. Patient will have History of aortic valve clots in October [...] for thromboembolic disease so work-up is pending Studies REPORT TWO-VIEW CHEST 06/02/2021 10:04 AM HISTORY: Anterior chest pain. COMPARISON: August 04, 2020 FINDINGS: The heart is proper size. The mediastinum is unremarkable. Diffuse interstitial changes are probably chronic. The lungs are otherwise clear. There is no pneumothorax. The osseous structures are unremarkable. Status post median sternotomy. A pacemaker overlies the left chest. IMPRESSION: No acute cardiopulmonary process. Continued follow-up is recommended. Images reviewed, interpreted, and dictated by Dr. Mohini Terry. Transcribed by Whitney Keita (R). I have personally viewed, interpreted and dictated the examination. I have read and agree with the above final transcribed report. Signature Line Final Dictated by: FAREED HOFF, Radiology Scribe Dictated DT/TM: 06/02/2021 12:24 pm [1] Type of Study: TTE procedure: EC Echo Complete. Patient Status: Routine IP Study Location: [facility] Quality: Adequate visualization Amount - 2 ml Indications:Chest pain. Allergies - Amiodarone. Impression: Technically difficult study due to patient body habitus. Optison ultrasound enhancing agent administered to enhance endocardial borders. Normal sized left ventricle. Moderate left ventricular hypertrophy. Visually estimated ejection fraction 50% +/- 5%. Normal left ventricular systolic function. Indeterminate diastolic function. S/P TAVR Peak/Mean PG 55/30 mmHg. DVI 0.35. No paravalvular aortic regurgitation. Trivial central aortic regurgitation. Abnormal right atrial size. Dilated right ventricle. Mildly dilated aortic root 4.21 cm. Mildly dilated ascending aorta 4 cm. No masses or thrombi are seen. [2] Procedure Type of Study: Cerebral: Carotid, US VL Carotid Duplex BILAT. Indications for Study:TIA (Transient Ischemic Attack). Impressions Summary RIGHT: < 20% stenosis of the prox ICA. Normal antegrade vertebral flow. No evidence of subclavian steal. LEFT: ECA >50% Stenosis. < 50% (non flow restricting) stenosis of the internal carotid artery. Normal antegrade vertebral flow. No evidence of subclavian steal. [3] REPORT CT SCAN OF THE HEAD WITHOUT CONTRAST INDICATION: Muscle weakness. TECHNIQUE: Multiple axial CT images were performed from the foramen magnum to the vertex without contrast. Coronal reconstruction images were obtained from the axial data. This study was performed with techniques to keep radiation doses as low as reasonably achievable (ALARA). Individualized dose reduction techniques using automated exposure control or adjustment of mA and/or KV according to the patient size were employed. COMPARISON: October 2019. FINDINGS: There is no mass effect or midline shift. The ventricles are symmetric in size and configuration. 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 There is no hydrocephalus. There are no extra-axial fluid collections. There is no intraventricular or intraparenchymal hemorrhage. The posterior fossa has a normal CT appearance. There is complete opacification of the right maxillary sinus. No acute osseous abnormalities are present. IMPRESSION: 1. No mass effect, midline shift, or hemorrhage. 2. Right maxillary sinusitis. Images reviewed, interpreted, and dictated by Dr. Zina Evangelista. Transcribed by Whitney Stapleton(R). I have personally viewed, interpreted and dictated the examination. I have read and agree with the above final transcribed report. Signature Line Final Dictated by: JULISSA PERKINS Dictated DT/TM: 06/02/2021 11:43 am [4] Reason for Hospitalization Mr. Cormier is an 85-year-old white man who comes in complaining of chest discomfort for 2 hours overnight that went away and then was followed by development of right leg heaviness and lack of coordination with ability to stand and walk with dragging of the right leg and then associated with expressive aphasia the morning of presentation on June 02. We were asked to admit and coordinate care with multiple specialists which I did on June 02 with the following description: Chief Complaint Pt c/o episode of CP x 2 hours last night, new onset bialteral weakness R>L onset 2200 last night that resolved after 2 hours. Primary Care Provider MARTHA BURRELL MD-INT History of Present Illness Mr. Cormier is an 85-year-old white male well-known to our service with previous cardiac complications with history of previous CABG aortic valve stenosis status post TAVR with complete heart block following this requiring dual-chamber pacemaker by Dr. Soliman in October 2019 and procedure also complicated by clots on implanted valve replacement requiring multiple months of warfarin for valvular clot. Patient had valve function problems with heart failure and concern for embolization at that time. Patient presents after onset of central chest pain that lasted for 2 hours without resolving but resolving by the time he went to bed last night. However while walking to bed last night patient noticed weakness in the right lower extremity and when he was up to urinate 2 times during the night he felt like he had to drag the right leg behind him even though he could stand and did have strength in the right lower extremity. He states it felt heavy uncoordinated and lacked smooth movement and reliability. This morning he tried to call [facility] cardiology to report chest discomfort and unusual other symptoms and was unable to talk appropriately on the phone and he was told to go to the emergency room. On arrival to the emergency room they evaluated him found no EKG changes no current chest pain but troponin was elevated greater than 1 on presentation. On my arrival to the ER to admit the patient for chest pain and non-STEMI, I reconfirmed that his unusual neurologic symptoms of temporary expressive aphasia and temporary right lower extremity heaviness and lack of coordination was concerning to the patient. Therefore we will place the patient on stroke set while evaluating for TIA and patient is at high risk of embolization from his aortic valve with history of thrombus and requiring warfarin therapy for several months of 2019 following TAVR. We will consult neurology as well as cardiology and do simultaneous non-STEMI and stroke evaluation for the patient. Patient will be on aspirin and we will await echocardiogram to decide if he needs aggressive Lovenox or warfarin due to the fact that he is also had history of intracranial bleeding with anticoagulants in the past. Patient has remote history of subdural hematoma. Patient did tolerate warfarin in 2019 when he was at risk of clotting off his aortic valve. Patient understands the work-up for treatment the referrals and why it so important to evaluate all of this and concerned that heart valve replacement may be involved once again. He agrees to proceed with the plan and all recommendations at this time. [5] Hospital Course Patient was admitted to telemetry and had simultaneous non-STEMI evaluation and TIA work-up. Patient had resolution of all TIA symptoms including right leg heaviness and weakness as well as expressive aphasia which never returned. The major concern was that this followed chest discomfort and patient had previous history of thromboembolic events related to his bioprosthetic valve placed by TAVR October 2019. No further clots were found on echocardiogram and patient will have left heart catheterization a few weeks from now after he is stable from all TIA symptoms. Cardiology has recommended that he be on baby aspirin and Eliquis 5 mg twice daily as a safe alternative because of remote history of subdural hematoma. Patient tolerated months of warfarin in 2019 after initial clotting complications post TAVR. Patient will transition outpatient care now without further symptoms and without need for further investigation at this time. Patient understands blood thinner recommendations and to stop all blood thinners if he has any bleeding complication and he agrees to close follow-up with cardiology and PCP. Since patient had TIA, follow-up with neurology is not 100% necessary at this time Vital Signs T: 36.7 ??C TMIN: 36.4 ??C TMAX: 36.9 ??C HR: 57(Monitored) RR: 17 BP: 103/65 SpO2: 98% Oxygen Settings (Last) Oxygen Therapy Mode: Room air (06/04/21 09:10:00) Physical Exam Awake alert oriented x4 he [...] or edema distal pulses 2+ equal bilaterally [6] Discharge Disposition Home Discharge Follow Up ABEBA HOOKS - 03:15 PM MARTHA BURRELL MD-INT - 02:00 PM If TIA symptoms return or if further neurologic problems consider referral to neurology Discharge Medications (6) Active aspirin 81 mg oral tablet, chewable 81 mg = 1 Tab, Oral, Daily Eliquis 5 mg oral tablet 5 mg = 1 Tab, Oral, [id number] hydroCHLOROthiazide-lisinopril 12.5 mg-20 mg oral tablet 1 Tab, Oral, Daily Lipitor 20 mg oral tablet 20 mg = 1 Tab, Oral, At Bedtime Metoprolol Succinate ER 25 mg oral tablet, extended release 25 mg = 1 Tab, Oral, Daily multivitamin 1 Tab, Oral, Daily Code Status Start: 06/02/21 12:40:00 EDT, Full Code, Continuous Order Condition on Discharge Improved Consulting Physicians ABEBA HOOKS MD WATSON, HIEN Styles MD-LUZ Current Diet Order Diet, Adult - Ordered -- Start: 06/02/21 15:13:00 EDT, Food Consistency: Regular texture, Liquid Consistency: Thin Liquid, Cardiac Diet, Isolation: Standard Precautions Follow Up Labs/Studies Labs Most Recent Last 28 days CBC Results-Most Recent Last 28 Days Event Name Event Result Date/Time WBC 5.4 K/uL 06/04/21 03:41:00 RBC 4.55 Million/uL 06/04/21 03:41:00 Hgb 12.7 g/dL Low 06/04/21 03:41:00 Hct 38.6 % Low 06/04/21 03:41:00 MCV 84.8 fL 06/04/21 03:41:00 MCH 27.9 pg 06/04/21 03:41:00 MCHC 32.9 Gram/dL 06/04/21 03:41:00 Platelet Count 95 K/uL Low 06/04/21 03:41:00 MPV 12 fL 06/04/21 03:41:00 RDW 15.4 % High 06/04/21 03:41:00 Slide Review Technologist 06/04/21 03:41:00 BMP Results (Most Recent Last 28 Days) Event Name Event Result Date/Time Sodium Level 138 mmol/L 06/03/21 03:08:00 Potassium Level 3.5 mmol/L 06/03/21 03:08:00 Chloride Level 105 mmol/L 06/03/21 03:08:00 Carbon Dioxide Level 26 mmol/L 06/03/21 03:08:00 Anion Gap 10 06/03/21 03:08:00 Glucose Level 111 mg/dL High 06/03/21 03:08:00 Blood Urea Nitrogen 22 mg/dL 06/03/21 03:08:00 Creatinine Level 1.1 mg/dL 06/03/21 03:08:00 eGFR >60 06/03/21 03:08:00 eGFR NonAfrican >60 06/03/21 03:08:00 Bun/Creatinine 20 06/03/21 03:08:00 Calcium Level 8.8 mg/dL 06/03/21 03:08:00 Other Lab Results (Most Recent Last 28 Days) Event Name Event Result Date/Time Albumin Level 3.7 Gram/dL 06/03/21 03:08:00 PT 10.9 Second(s) 06/02/21 21:54:00 INR 1 06/02/21 21:54:00 PTT 58.5 Second(s) High 06/04/21 03:41:00 Pending Labs Ordered CBC w/ Auto Diff Specimen Type: Blood, Routine collect, 06/03/21 21:45:00 EDT, Daily, For: 3 Day(s), Stop: 06/06/21 4:00:00 EDT, Lab Collect CBC w/ Auto Diff Specimen Type: Blood, Routine collect, 06/06/21 21:45:00 EDT, MoMichell, Lab Collect Platelet Count Specimen Type: Blood, Routine collect, 06/04/21 12:40:00 EDT, Q48H, Nurse Collect Time Spent on Discharge 45 minutes [1] CR Chest 2 Vws; Kezia Louise, Carpet Finishing Supervisor 06/02/2021 10:51 EDT [2] [facility]; LEE ANN CELESTE MD-CAR 06/02/2021 13:01 EDT [3] [facility]; LEE ANN CELESTE MD-CAR 06/02/2021 13:01 EDT [4] CT Head WO; CAN HEALY 06/02/2021 10:53 EDT [5] Admission H & P; CJ AVITIA MD-INT 06/02/2021 14:11 EDT [6] Hospitalist Progress Note - APSO; CJ AVITIA MD-INT 06/03/2021 13:11 EDT documented in this encounter Plan of Treatment Not on file documented as of this encounter Visit Diagnoses Not on filedocumented in this encounter
--- OUTSIDE RECORDS SUMMARY | 2025-03-28 10:43 | XMS_ITS | Encounter Summary ---
Author Organization [employer] Address [address] [place] [address] Care Team Providers Care Technical Proposal Writer Name Role Phone Unavailable Primary Care Provider Unavailabl e Encounter Details Date Type Department Care Team (Late st Contact Info) Description 08/06/2020 Transcribed Document [facility] [place] [address] [place] [address] ProviderPrasanth MD [facility] [place] [address] Social History Tobacco Use Types Packs/Day Years Used Date Smoking Tobacco: Never Assessed Sex and Gender Information Value Date Recorded Sex Assigned at Not on file Legal Sex Male 6:49 PM CDT Gender Identity Not on file Sexual Orientation Not on file documented as of this encounter Miscellaneous Notes * Cerner Conversion Note - Historical ProviderMD - 08/06/2020 5:00 AM CDT Chart Check - Review Order Profile Entered On: 08/06/2020 4:10 EDT Performed On: 08/06/2020 5:00 EDT by Olya Escalera, RN Chart Check Powerplans Initiated/Discontinued as Appropriate : Yes All Active Orders Reviewed : Yes Olya Escalera RN - 08/06/2020 4:10 EDT documented in this encounter Plan of Treatment Not on file documented as of this encounter Visit Diagnoses Not on filedocumented in this encounter
--- OUTSIDE RECORDS SUMMARY | 2025-03-28 10:43 | XMS_ITS | Encounter Summary ---
Author Organization [employer] Address [address] [place] [address] Care Team Providers Care Cad Designer Name Role Phone Unavailable Primary Care Provider Unavailabl e Encounter Details Date Type Department Care Team (Late st Contact Info) Description 08/05/2020 Transcribed Document [facility] [place] [address] [place] [address] ProviderPrasanth MD [facility] [place], [place] [id number] Social History Tobacco Use Types Packs/Day Years Used Date Smoking Tobacco: Never Assessed Sex and Gender Information Value Date Recorded Sex Assigned at Not on file Legal Sex Male 6:49 PM CDT Gender Identity Not on file Sexual Orientation Not on file documented as of this encounter Miscellaneous Notes * Cerner Conversion Note - Prasanth ProviderMD - 08/05/2020 5:35 PM CDT Initial Discharge Planning Entered On: 08/05/2020 17:36 EDT Performed On: 08/05/2020 17:35 EDT by MARYBETH OMRAN Rn-Maintenance And Engineering Manager Initial Assessment I Previously Documented Living Environment : No qualifying data available. Living Situation : Home Patient Lives With : Spouse Is the Patient a Caregiver at Home? : No Emergency Contact #1 : Rosa Elena Emergency Contact #1 Emergency Contact #1 Relationship : spouse Emergency Contact #2 : n/a Emergency Contact #2 Phone Number : n/a Emergency Contact #2 Relationship : n/a Enter Doctors Name : Verenice Does Patient have PCP Listed? : Yes Medical Durable Power of Fuel Cell Test Engineer Name : Legal Guardian : No MARYBETH MORAN Rn-Maintenance And Engineering Manager - 08/05/2020 17:35 EDT Initial Assessment II Sensory and Motor Deficits : None, Weakness Current Home Treatments and Equipment : None MARYBETH MORAN Rn-Maintenance And Engineering Manager - 08/05/2020 17:35 EDT Discharge Needs I Anticipated Discharge Date : 08/06/2020 EDT Anticipated Discharge To, CM : Home with family care Current Home Treatment/Equipment : Current Home Treatment/Equipment No qualifying data available. Post Acute/Home Treatments : None Documentation Status Complete : Yes MARYBETH MORAN Rn-Maintenance And Engineering Manager - 08/05/2020 17:35 EDT Discharge Needs II Professional Skilled Services : Professional Skilled Services No qualifying data available. Needs Assistance with Transportation : No Discharge Options Discussed with Patient : Discharge transportation, Outpatient services MARYBETH MORAN Rn-Maintenance And Engineering Manager - 08/05/2020 17:35 EDT Narrative Note Narrative Note : Patient is I-ADL, will drive home, anticipate dc tomorrow with Eliquis or coumadin. MARYBETH MORAN Rn-Maintenance And Engineering Manager - 08/05/2020 17:35 EDT documented in this encounter Plan of Treatment Not on file documented as of this encounter Visit Diagnoses Not on filedocumented in this encounter
--- OUTSIDE RECORDS SUMMARY | 2025-03-28 10:43 | XMS_ITS | Encounter Summary ---
Author Organization [email or web address] [facility] Address [address] [place] [address] Care Team Providers Care Hazardous Material Specialist Name Role Phone Unavailable Primary Care Provider Unavailabl e Encounter Details Date Type Department Care Team (Late st Contact Info) Description 09/26/2019 Transcribed Document [facility] [place] [address] [place] [address] ProviderPrasanth MD Counts include 234 beds at the [facility] [place] [address] Social History Tobacco Use Types Packs/Day Years Used Date Smoking Tobacco: Never Assessed Sex and Gender Information Value Date Recorded Sex Assigned at Not on file Legal Sex Male 6:49 PM CDT Gender Identity Not on file Sexual Orientation Not on file documented as of this encounter Miscellaneous Notes * Cerner Conversion Note - Historical ProviderMD - 09/26/2019 10:31 AM BICYCLE REPAIRMAN UM Authorization Entered On: 09/26/2019 10:31 EST Performed On: 09/26/2019 10:31 EST by DIVINA HUGHES Rn-Utilization Review Primary Insurance Authorization Authorization and Policy Numbers : Insurance 1 Health Plan: MEDICARE Policy Number: [id number] Authorization Number: NOT REQUIRED Insurance 2 Health Plan: A[employer] N Policy Number: [id number] Authorization Number: NOT REQUIRED Insurance Primary Name : MEDICARE Policy Number: [id number] AARP N Policy Number: [id number] Historical Authorization Comments-Primary : No Authorization Comments Found DIVINA HUGHES Rn-Utilization Review - 09/26/2019 10:31 EST Electronically signed by Nikita [facility] Conversion Database Specialist Cerner at 01/26/2023 9:09 PM CDT documented in this encounter Plan of Treatment Not on file documented as of this encounter Visit Diagnoses Not on filedocumented in this encounter
--- OUTSIDE RECORDS SUMMARY | 2025-03-28 10:43 | XMS_ITS | Encounter Summary ---
Author Organization [employer] Address [address] [place] [address] Care Team Providers Care Tow Motor Driver Name Role Phone Unavailable Primary Care Provider Unavailabl e Encounter Details Date Type Department Care Team (Late st Contact Info) Description 08/05/2020 Transcribed Document [facility] [place] [facility] [place] [address] ProviderPrasanth MD [address] [place] [address] Social History Tobacco Use Types Packs/Day Years Used Date Smoking Tobacco: Never Assessed Sex and Gender Information Value Date Recorded Sex Assigned at Not on file Legal Sex Male 6:49 PM CDT Gender Identity Not on file Sexual Orientation Not on file documented as of this encounter Miscellaneous Notes * Cerner Conversion Note - Prasanth ProviderMD - 08/05/2020 9:19 AM CDT Patient: SHIRA GARZA HORACIO Age: 85 years Sex: Male : 1935 Associated Diagnoses: None Author: CELESTINA RUIZ APRN [facility] CARDIOLOGY PROGRESS NOTE: DIAGNOSIS: 1. NSTEMI 2. Thrombosed aortic valve SUBJECTIVE: denies chest pain shortness of breath palpitations Vitals Signs (last 24 hrs) Last Charted Minimum Maximum Temp 98.6 (AUG 05 05:29) 97 (AUG 04 12:07) 98.1 (AUG 05 01:29) Apical HR 68 (AUG 04 21:36) 68 (AUG 04 21:36) 68 (AUG 04 21:36) Mon HR 59 (AUG 05 05:29) 54 (AUG 05 01:29) 95 (AUG 04 22:11) Periph HR 60 (AUG 04 12:07) 60 (AUG 04 12:07) 60 (AUG 04 12:07) Resp Rate 18 (AUG 05 01:29) 16 (AUG 04 13:30) H 31 (AUG 04 19:30) SBP 124 (AUG 05 05:29) 113 (AUG 04 18:00) H 167 (AUG 04 18:30) DBP 79 (AUG 05 05:29) 63 (AUG 04 16:00) H 98 (AUG 04 12:15) MAP 94 (AUG 05 05:29) 90 (AUG 04 16:00) 124 (AUG 04 12:15) SpO2 96 (AUG 05 08:23) L 17 (AUG 04 17:00) 98 (AUG 05 01:29) Clinical Weight CLINICALWEIGHT: 88.64 kg (08/04/20::00) [place] Body Weight: 70 kg (08/04/20::) Intake & Output Totals Last 24 Hours (7a-7a) Intake (1 Events) Continuous Infusions (1000 mL) Output (0 Events) No output events found in the last 24 hours. Input Total: 1000 mL Output Total: 0 mL Balance: 1000 mL TELE: SB 50 Blood Gases (Current Encounter/Past 24 Hours) No Blood Gas Results Found (Past 24 Hours) Labs (Last four charted values) WBC 5.6 (AUG 04) HB 14.2 (AUG 04) HCT 43.4 (AUG 04) Plt L 148 (AUG 04) Na 138 (AUG 04) K 3.6 (AUG 04) Cl 105 (AUG 04) CO2 31 (AUG 04) BUN H 28 (AUG 04) Cr 1.30 (AUG 04) Glu R 103 (AUG 04) Ca 9.1 (AUG 04) Lactic 0.9 (AUG 04) PT H 55.4 (AUG 04) INR H 5.3 (AUG 04) PTT H 59.2 (AUG 04) AST H 41 (AUG 04) ALT 31 (AUG 04) ALK P 77 (AUG 04) T Bili 0.4 (AUG 04) PTN 8.2 (AUG 04) ALB 4.0 (AUG 04) Troponin C 3.120 (AUG 04) C 3.140 (AUG 04) C 3.420 (AUG 04) 08/04/2020 ECHO Impression: Technically very limited study. Optison ultrasound [...] Trace perivalvular regurgitation. Mildly dilated ascending aorta 3.98cm. Measurements Summary: LVEDd: 4.95 cm LVPWd: 1.26 cm IVSEd: 1.64 cm AO Root:3.58 cm Contractility Score Global Left Ventricular Hypokinesis was noted. EXAM: Alert & Oriented, No apparent distress. HEAD&NECK: No JVD, No carotid bruit CORONARY: RRR, S1/S2, murmur LUNGS: CTA/B, No rhonchi, No wheeze ABDOMEN: Soft, Non-tender, Positive Bowel sounds EXTREMITIES: No edema, No cyanosis, Pedal pulses palpable IMPRESSION/PLAN: NSTEMI in setting of CAD/ prior 5V CABG optimize medical management [facility] 09/2019 revealed patent grafts Thrombosed aortic valve, now with severe stenosis anticoagulated with Coumadin, recommend 3 months of therapy and then repeat VITOR, structural cardiology to see- much appreciated Intermittent complete heart block with pauses s/p [facility] [place] BIV PPM Supratherapeutic INR hold Coumadin at this time- relatively new, daily INR- pending today Hypertension well controlled Mild ascending aortic dilation 3.98cm per echo monitor outpatient with yearly echocardiogram Discussed case with Dr. Easley whom is very familiar with patient. Due to thrombosed aortic valve, no active symptoms, no significant EKG changes will continue with optimal medical management of NSTEMI Plan to anticoagulate with Coumadin for 3 months then repeat VITOR to reevaluate thrombus documented in this encounter Plan of Treatment Not on file documented as of this encounter Visit Diagnoses Not on filedocumented in this encounter
--- OUTSIDE RECORDS SUMMARY | 2025-03-28 10:43 | XMS_ITS | Encounter Summary ---
Author Organization [employer] Address [address] [place] [address] Care Team Providers Care Patient Account Representative Name Role Phone Unavailable Primary Care Provider Unavailabl e Encounter Details Date Type Department Care Team (Late st Contact Info) Description 06/04/[address] [facility] Family Medicine [facility] [place] [address] ProviderPrasanth MD [address] [place] [id number] Social History Tobacco Use Types Packs/Day Years Used Date Smoking Tobacco: Never Assessed Sex and Gender Information Value Date Recorded Sex Assigned at Not on file Legal Sex Male 6:49 PM CDT Gender Identity Not on file Sexual Orientation Not on file documented as of this encounter Miscellaneous Notes * [employer] Conversion Note - Prasanth ProviderMD - 06/04/2021 11:19 AM CDT Stroke/Warfarin Instructions Entered On: 06/04/2021 11:20 EDT Performed On: 06/04/2021 11:19 EDT by Eri Loco RN Stroke/Warfarin Instructions Stroke/TIA Discharge Ins : Open Warfarin Discharge Ins : N/A Eri Loco RN - 06/04/2021 11:19 EDT Stroke/TIA Discharge Instructions Individualized Stroke Risk Factors *Q : Coronary artery disease, Hypertension/High blood pressure Stroke Education Handouts Given *Q : Yes Eri Loco RN - 06/04/2021 11:19 EDT Stroke Education Materials Given-Grid Activation of EMS *Q : Verbalizes understanding Follow-up Care After Discharge *Q : Verbalizes understanding Medications prescribed at DC *Q : Verbalizes understanding Risk Factors for Stroke *Q : Verbalizes understanding Warning S&S of Stroke *Q : Verbalizes understanding Eri Loco RN - 06/04/2021 11:19 EDT Stroke/TIA Signs/Symptoms to Report Immediately : Sudden onset difficulty speaking, Sudden onset difficulty understanding speech, Sudden onset change in vision, Sudden onset weakness particulary on one side of the body, Sudden onset numbness/tingling, Sudden severe headache, Sudden dizziness or trouble with gait, Call : EMS activation is crucial Blood Pressure Management: : I will ask my physician about my blood pressure goal, I will record my BP daily and take a log to MD appts, I will purchase a blood pressure machine Blood Pressure Management: (Cont) : I will not change or stop any meds w/o instruction from MD My LDL Level: : LDL Level Cholesterol LDL Calculation: 130.4 mg/dL High (06/03/21 03:08:00) Reduce Cholesterol/Diet: : I will take cholesterol reducing medications as prescribed Anticoagulant/Anti-Platelet/Medications: : I will not stop taking my meds unless instructed by Eri James, RN - 06/04/2021 11:19 EDT documented in this encounter Plan of Treatment Not on file documented as of this encounter Visit Diagnoses Not on filedocumented in this encounter
--- OUTSIDE RECORDS SUMMARY | 2025-03-28 10:43 | XMS_ITS | Encounter Summary ---
Author Organization [employer] Address [address] [place] [address] Care Team Providers Care Garment Supervisor Name Role Phone Unavailable Primary Care Provider Unavailabl e Encounter Details Date Type Department Care Team (Late st Contact Info) Description 11/07/2019 Transcribed Document [facility] Radiology [address] [place] [address] Abel Kapadia MD [address] [place] [address] [place] [address] Social History Tobacco Use Types Packs/Day Years Used Date Smoking Tobacco: Never Assessed Sex and Gender Information Value Date Recorded Sex Assigned at Not on file Legal Sex Male 6:49 PM CDT Gender Identity Not on file Sexual Orientation Not on file documented as of this encounter Miscellaneous Notes * [employer]ner Conversion Note - Abel Kapadia MD - 11/07/2019 1:09 PM EST Patient: SHIRA GARZA HORACIO Age: 84 years Sex: Male : 1935 Associated Diagnoses: None Author: ABEL KAPADIA MD-INT Subjective DATE OF ADMISSION: 11/04/2019 Date of Discharge 11/08/2019 PRIMARY CARE PHYSICIAN: Dr. Marcelino Caldera, [facility]. REFERRING PHYSICIAN: Dr. Beckman, [facility] , 1935. CURRENT COMPLAINT: Falls, dizziness, [...] = 1 Tab, Oral, Daily , Medications (15) Active Scheduled: (6) #NaCl [...] At risk for sleep apnea / IMO [id number] / Confirmed Shortness of breath / SNOMED CT 320302828 / Confirmed Hypertension / SNOMED CT 28713974 / Confirmed Wears glasses / SNOMED CT 215122491 / Confirmed, Active Problems (11) Aortic stenosis [...] (NOV 06 13:00) SBP H 172 (NOV 07 10:15) 129 (NOV 06 14:00) H 184 (NOV [...] gallop, S1+ S2 No S3 or S4 [place].. Gastrointestinal: Soft, Non-tender, Non-distended, Normal bowel sounds. [...] (NOV 04) Radiology Results (Last 48 hours) [id number] -- 11/04/2019 21:19 CT Head WO (11/05/2019 [...] was discussed with the patient and RN, TTF today OK documented in this encounter Plan of Treatment Not on file documented as of this encounter Visit Diagnoses Not on filedocumented in this encounter
--- OUTSIDE RECORDS SUMMARY | 2025-03-28 10:44 | XMS_ITS | Encounter Summary ---
Author Organization [email or web address] Address [address] [place] [address] Care Team Providers Care Customer Development Manager Name Role Phone Unavailable Primary Care Provider Unavailabl e Encounter Details Date Type Department Care Team (Late st Contact Info) Description 12/03/2019 Transcribed Document [facility] [address] [place] [address] ProviderPrasanth MD [facility] [place] [address] Social History Tobacco Use Types Packs/Day Years Used Date Smoking Tobacco: Never Assessed Sex and Gender Information Value Date Recorded Sex Assigned at Not on file Legal Sex Male 6:49 PM CDT Gender Identity Not on file Sexual Orientation Not on file documented as of this encounter Miscellaneous Notes * [employer]ner Conversion Note - Historical ProviderMD - 12/03/2019 9:48 AM SPA HOST Event Note Entered On: 12/03/2019 9:49 EST Performed On: 12/03/2019 9:48 EST by AUSTIN FOFANA, RN Event Note Description of Event : pt presents today with dressing to left subclavian area , aware, pt states draining still occuring and has been on Keflex, pt stated he has appt to see Dr. Soliman this afternoon, AUSTIN FOFANA, RN - 12/03/2019 9:50 EST Electronically signed by Nikita [facility] Conversion Occupational Health Nurse Manager [employer] at 01/26/2023 9:12 PM CDT documented in this encounter Plan of Treatment Not on file documented as of this encounter Visit Diagnoses Not on filedocumented in this encounter
--- OUTSIDE RECORDS SUMMARY | 2025-03-28 10:44 | XMS_ITS | Continuity of Care Document ---
Author Organization [facility], [facility] Address [address] [facility] [address] [place] [address] Care Team Providers Care Geospatial Technologist Name Role Phone SHRUTHI TOURE Master Steam [employer]acht ABEBA HOOKS Seam Closer ALEXEI FLORES Primary Care Provider Assessment Encounter Date Assessment Date Assessment LastModified by Organization Details LastModified Time 02/08/2025 02/08/2025 Impression: 1. Coronary Artery Disease s/p remote 5v CABG in 2007: Chronic problem, stable Admission 05/2021 with NSTEMI (probable type 1 event the evening prior) with peak Troponin 2.650. No evidence of LV dysfunction or ischemia on SPECT 06/22/2021. 2. 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 05/2021: Developed TIA and elevated TAVR gradients (concerning for repeat leaflet thrombosis). 10/23/2021: ECHO: AV Peak velocity 1.96 m/s, Mean gradient 8 mmHg. 11/17/2023 ECHO: EF 55-60% AV mean gradient is 7 mmHg. 3. 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 12/06/2019: His device was programmed to VVI 12/01/2022: Reprogrammed from VVI 30 to DDDR 50 4. History of Atrial flutter s/p CTI Nov 2018 5. Iron deficiency anemia (Dr. Flores) PLAN: Mr. Bustamante appears to be stable from a cardiovascular perspective. Medication changes: None. RTC: We will plan to follow-up in about 6 months, or sooner if needed. Testing at next visit: Transthoracic echocardiogram to assess AVR. [email or web address] Not available 02/08/2025 12:33:09 Plan of Treatment Reminders Order Date Submit Date Provider Last Modified By Organization Details Last Modified Time Details Appointments CARDIO ULTRASOUN D 2024 09:00A M CARDIO_UL TRASOUND Not available Not available Not available RECHECK 2024 10:00A M ABEBA HOOKS MD Not available Not available Not available Lab None recorded. Referral None recorded. Procedures pacemaker programmi ng, multiple lead (PROC) 2024 025 [facility] Cardiology [facility], [address] [place] [address] , [facility], [place], [address], 02/08/2025 14:10:20 Surgeries None recorded. Imaging None recorded. Medication Orders None recorded. Patient TargetsNo targets recorded. Patient Instructions Encounter Date Encounter Id Patient Instructions Last Modified By Organization Details Last Modified Time 02/08/2025 [id number] Body Mass Index: Care Instructions-LC [email or web address] Not available 02/08/2025 12:33:28 Reason for Referral None Reported. Results Created Date Observation Date Name Description Value Unit Range Abnormal Flag Note LastModifiedBy Organization Detail LastModifiedTime 01/30/20 25 01/29/2025 remot e devic e inter rogat ion (PROC ) No observ ation record ed. [email or web address] Not Available 2024 14:44:33 02/13/20 25 02/08/2025 pacem magaly inter rogat ion (PROC ) No observ ation record ed. BARCODE Not Available 2024 08:47:36 03/07/20 25 03/01/2025 remot e devic e inter rogat ion (PROC ) No observ ation record ed. [email or web address] Not Available 2024 08:39:26 Result Notes None recorded. 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 From Automate d Load;Pro vider: Karon Caldera;Sta tus: Active [facility] 0 09:34:57 Coronary arterios clerosis in [place] artery 95790058247 07 Active 2014 From Automate d Load;Pro vider: Karon Caldera;Sta tus: Active [facility] 0 09:34:57 Hernia of abdomina l cavity 76905748 Active 2014 Provider : Andrew Nelson Jr;St atus: Active [facility] 0 09:34:57 Neoplasm of head and neck 614580120 Active 2014 From Automate d Load;Pro vider: Andrew Nelson Jr;St atus: Active [facility] 0 09:34:57 Aortic stenosis , non-rheu matic 393114580 Active 2015 From Automate d Load;Pro vider: Lacie Easley;Sta tus: Active [facility] 0 09:34:57 Hemangio ma 452494118 Active 2014 From Automate d Load;Pro vider: Darian Cristina ;Status: Active [facility] 0 09:34:57 Senile hyperker atosis 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 Active 2014 From Automate d Load;Pro vider: Darian Cristina ;Status: Active [facility] 0 09:34:57 Lentigo Active 2014 From Automate d Load;Pro vider: Darian Cristina ;Status: Active [facility] 0 09:34:57 Hyperten sive disorder 77432104 Active 2014 From Automate d Load;Pro vider: Karon Caldera;Sta tus: Active [facility] 9 07:48:44 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 [facility] 0 09:34:57 Benign hyperten twyla 53329412 Active 2016 [facility] 0 09:34:57 Hyperlip idemia 71053514 Active 2016 KARON CALDERA MD [address] [place] [address], [address], [facility] 7 12:17:30 History of polyp of colon 790040930 Active 2016 [facility] 0 09:34:57 Paroxysm al atrial fibrilla tion 476535155 Completed 201611/05/2018 Post CABG Amio Rx 2007- 2 BLANK HUGHES MD [address] [place] [address], [address], [facility] 9 11:44:52 Long-ter m drug therapy Active 2016 Flecaini de [facility] 0 09:34:57 Injury of lower leg 303759644 Active 2015 From Automate d Load;Pro vider: Andrew Nelson Jr;St atus: Active [facility] 0 09:34:57 Actinic keratosi s 793820124 Active 2015 From Automate d Load;Pro vider: Darian Cristina ;Status: Active [facility] 0 09:34:57 Aortic valve disorder 9533345 Completed 201511/05/2018 From Automate d Load;Pro vider: Laice Easley;Sta tus: Active BLANK HUGHES MD [address] [place] [address], [address], [facility] 9 11:44:42 Coronary artery bypass graft Completed 201811/06/20182007 BLANK HUGHES MD [address] [place], [address], [facility] 9 09:40:49 Atrial flutter 8199515 [place] [address] [place] [address], [address], [facility] 9 11:43:42 Atrial fibrilla tion and flutter 810455650 Active 2018 post CABG; Amio Rx 2007- 2 [facility] 0 09:34:57 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 [facility] 0 09:34:57 Anticoag ulant therapy Active 2018 [facility] 0 09:34:57 EKG: right bundle branch block 039107812 Completed 201812/17/2019 [place] [address] [place] [address], [address], [facility] 0 12:29:00 Adult health examinat ion Active 2018 [facility] 0 09:34:57 Stitch infectio n 354296408 Active 2019 [facility] 0 09:34:57 Right bundle branch block AND left anterior fascicul ar block 09171400 Active 2019 [facility] 0 09:34:57 Biventri cular cardiac pacemake r present 48599811223 105 Active 2019 [facility] 0 09:34:57 History of aortic valve replacem ent 94983844399 00 Active 2019 KARON CALDERA MD [address] [place], [address], [facility] 0 13:11:21 History of cardiac pacemake r in situ 013201038 Active 2019 [facility] null, [facility] 0 09:34:57 Long-ter m current use of anticoag ulant 434291346 Active 2019 LACIE EASLEY MD [address] [place] [address], [address], [facility] 0 12:28:58 EKG: right bundle branch block 464750636 Active 2019 And LAFB LACIE EASLEY MD [address] [place] [address], [address], [facility] 0 12:29:00 Iron deficien cy anemia 66715567 Active 2021 MARTHA Morrison MD [address] [place] [address], [address], [facility] 2 19:46:39 Microsco pic hematuri a 018721089 Active 2021 MARTHA Morrison MD [address] [place] [address], [address], [facility] 2 19:46:40 Problem Notes None recorded. Procedures Surgical History Date Name Laterality Status Provider Name and Address Organization Details Recorded Time 12/19/19 24 Destruction Premalignant Lesion(s) completed Yamilka Gibson [facility] 12/19/2023 11:39:35 10/29/19 22 Destruction Premalignant Lesion(s) completed [facility] 10/29/2021 10:26:45 10/23/19 22 Echocardiogram completed ABEBA HOOKS MD [address] [place] [address], [address], [facility] 10/25/2021 09:45:48 06/22/20 21 Stress Test - Nuclear Lexiscan completed ABEBA HOOKS MD [address] [place] [address], [address], [facility] 06/22/2021 16:28:33 10/29/19 21 Destruction Premalignant Lesion(s) completed Drew Castaneda [facility] 10/29/2020 09:57:02 07/15/20 20 Stress Test - Echo completed Leah Sernaphart [facility] 07/15/2020 09:19:41 07/15/20 20 Echocardiogram completed LACIE EASLEY MD [facility] [place], [address], [facility] 07/16/2020 08:24:28 06/02/20 20 Echocardiogram completed LACIE EASLEY MD [address] [place] [address] [place], [address], [facility] 07/16/2020 08:22:04 11/07/19 20 Pacemaker completed LACIE EASLEY MD [facility] [place], [address], [facility] 11/08/2019 08:21:57 10/30/19 20 replacement of aortic valve completed Ree Pacheco [facility] 11/22/2019 10:24:33 09/11/20 19 Cardiac Catheterization completed LACIE EASLEY MD [facility] [place], [address], [facility] 09/11/2019 10:05:56 08/09/20 19 Echocardiogram completed LACIE EASLEY MD [facility] [place], [address], [facility] 08/09/2019 15:54:43 07/10/20 19 Destruction Premalignant Lesion(s) completed Alejandra Wiley [facility] 07/10/2019 12:14:56 06/28/20 19 Echocardiogram completed LACIE EASLEY MD [facility] [place], [address], [facility] 06/28/2019 11:06:08 09/26/20 18 Echocardiogram completed LACIE EASLEY MD [facility] [place], [address], [facility] 09/26/2018 14:31:19 07/10/20 18 Destruction Premalignant Lesion(s) completed Alejandra Wiley [facility] 07/10/2018 11:33:05 06/14/20 18 Cerumen removal - Instruments, Unilateral completed SHRUTHI TOURE MD [address] [place] [address], [address], [facility] 06/14/2018 10:01:22 02/29/20 18 Echocardiogram completed LACIE EASLEY MD [address] [place] [address], [address], [facility] 02/28/2018 13:45:22 09/05/20 17 Echocardiogram completed LACIE EASLEY MD [address] [place] [address], [address], [facility] 09/05/2017 11:25:38 07/07/20 17 Biopsy Skin Lesion; Tangential completed [facility] 07/07/2017 11:54:14 09/14/20 16 Colonoscopy completed Deana Blackwell [facility] 07/29/2017 08:35:34 10/15/19 15 Other completed Pema Gunn [facility] 02/28/2017 11:42:33 10/10/19 13 Other completed Pema Gunn [facility] 02/28/2017 11:43:17 10/10/19 12 Hernia repair w/mesh completed Pema Gunn [facility] 02/28/2017 11:42:51 05/27/20 08 Cardiac Surgery completed LACIE EASLEY MD [address] [place] [address], [address] 09/05/2017 11:43:26 Other completed Kristen Short [facility] 12/12/2018 12:28:38 Urologic Surgery completed Emelina Perez [facility] 11/02/2016 11:11:18 Imaging Results None recorded. Procedure Notes None recorded. 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 Y Sudha blanco [facility] 11/08/2019 09:14:23 Allergies Allergen ID Allergen Name Allergen Category Reaction Reaction Severity Criticality Documentation Date Start Date Code Code System Note Provider Name and Address Organization Details Recorded Time 808404 amiodaron e hydrochlo ride medicatio n Not available Not available Not available 09/02/20162010 4 RxNorm Comme nt: inocencia fernandez thyro id;Cr eated By: Jaquelinsurinder Steele Creberenice ed Date: 07/19 10:32 :22 AM; Not Available [facility] 6 13:44:10 501401 amiodaron e medicatio n Not available Not available Not available 08/07/2020 703 RxNorm Other react ions and sever ities : 'Unkn own (qual ifier value )'. [facility] 0 09:34:56 562361 clopidogr el medicatio n Not available Not available Not available 08/07/2020 84548 RxNorm [facility] 0 09:34:56 Medications Name Sig Start Date Stop Date Status Note LastModified by Organization Details LastModified Time atorvasta tin 20 mg tablet TAKE 1 TABLET BY MOUTH ONCE DAILY AT BEDTIME 2024 active Not Available Not Available Not Avai lable Multiple Vitamin capsule Daily active Duration : 30 days;Ajay quency: daily;Me dication Descript ion: multivit hutton; Dosage:1 ; Route:or al; refills: 3; Quantity :100 capsule Not Available Not Available Not Available Iron (ferrous sulfate) 325 mg (65 mg iron) tablet Take 3 tablets every day by oral route. active 02/09/23 has been taking for about 3 months Not Available Not Available Not Available lisinopri l 20 mg-hydroc hlorothia zide 12.5 mg tablet Take 1 tablet by mouth once daily 2024 active Not Available Not Available Not Avai lable isosorbid e mononitra te 20 mg tablet Take 1 tablet by mouth twice daily 02/02 completed Not Available Not Available Not Available metoprolo l succinate ER 50 mg tablet,ex tended release 24 hr Take 1 tablet every day by oral route. 02/02 completed Not Available Not Available Not Available valacyclo vir 1 gram tablet Take 1 tablet 3 times a day by oral route for 7 days. 06/02 completed Not Available Not Available Not Available Keflex 500 mg capsule Take 1 capsule every 6 hours by oral route for 10 days. 12/03 completed Not Available Not Available Not Available lisinopri l 20 mg tablet Take 1 tablet every day by oral route. 01/02 completed Not Available Not Available Not Available isosorbid e mononitra te ER 30 mg tablet,ex tended release 24 hr Take 1 tablet every day by oral route in the morning. 01/02 completed Not Available Not Available Not Available warfarin 2.5 mg tablet Take 1 tablet every day by oral route. 2023 active Not Available Not Available Not Avai lable ciproflox acin 250 mg tablet Take 1 tablet every 12 hours by oral route for 10 days. 06/28 completed Not Available Not Available Not Available valacyclo vir 500 mg tablet Take 2 tablets 3 times a day by oral route. 08/16 completed Not Available Not Available Not Available Nitrostat 0.4 mg sublingua l tablet Place 1 tablet by sublingu al route. active DISSOLVE ONE TABLET UNDER THE TONGUE EVERY 5 MINUTES NEEDED FOR CHEST PAIN. DO NOT EXCEED A TOTAL OF 3 DOSES IN 15 MINUTES Not Available Not Available Not Available clotrimaz ole-betam ethasone 1 %-0.05 % topical cream apply to affected area bid until resolved do not apply longer than 14d. 07/16 completed Not Available Not Available Not Available warfarin 5 mg tablet TAKE 1 TABLET BY MOUTH IN THE EVENING DIRECTED 2023 active Not Available Not Available Not Avai lable flecainid e 50 mg tablet TAKE ONE TABLET BY MOUTH TWICE DAILY 03/[address] hughes Not Available Not Available Not Available aspirin 81 mg tablet Daily 11/15 completed Frequenc y: daily;Me dication Descript ion: aspirin; Dosage:1 ; refills: 0; Quantity :30 Not Available Not Available Not Available metoprolo l succinate ER 25 mg tablet,ex tended release 24 hr Take 1 tablet by mouth once daily 2024 active Not Available Not Available Not Avai lable cefdinir 300 mg capsule Take 1 capsule every 12 hours by oral route for 7 days. 02/14 completed Not Available Not Available Not Available Bactrim DS 800 mg-160 mg tablet Take 1 tablet twice a day by oral route for 7 days. 03/26 completed Not Available Not Available Not Available Adult Low Dose Aspirin 81 mg tablet,de layed release Take 2 tablets every day by oral route. active Not Available Not Available No t Available Coumadin Managed by Cardiolo gy 06/29 completed warfarin RX Not Available Not Available Not Available ranolazin e ER 500 mg tablet,ex tended release,1 2 hr Take 1 tablet twice a day by oral route. 02/02 completed Not Available Not Available Not Available Golytely 236 gram-22.7 4 gram-6.74 gram-5.86 gram oral solution Take as directed 05/23 completed Not Available Not Available Not Available prasugrel HCl 5 mg tablet 02/02 completed Not Available Not Available Not Available Eliquis 5 mg tablet Take 1 tablet twice a day by oral route. 07/31 completed Not Available Not Available Not Available Eliquis 07/31 completed Eliquis 5mg per Jacqueline 4 boxes given in office Lot #[id number] A exp: 06/01 [facility] Not Available Not Available Not Available Vitals Date Recorded Body height Body mass index (BMI) Body weight Heart rate Oxygen saturation Oxygen saturation in Arterial blood by Pulse oximetry Systolic blood pressure Diastolic blood pressure Provider Name and Address Organization Details Last Updated DateTime 5 175.26 cm 29.7 kg/m2 67801.3 5 g 61 /min 96 % 96 % 124 mm[Hg] 86 mm[Hg] Fan Garza [facility] 5 11:34:41 Social History Question Answer Notes LastModified by Organizat ion Details LastModified Time Tobacco Smoking Status Former Smoker QUIT 2007 [facility] 11/02/2016 11:09:44 Do You Have An Advance Directive? Yes Information not available 02/14/2018 What Is Your Level Of Caffeine Consumption? Occasional Information not available 01/27/2017 How Much Tobacco Do You Chew? None Information not available 01/27/2017 What Type Of Diet Are You Following? REGULAR Information not available 01/27/2017 Which Illicit Or Recreational Drugs Have You Used? None Information not available 01/27/2017 Education 12 8 Years [employer] Information not available 01/27/2017 When Did You Quit Smoking? 6-10yearssince lastcigarette [email or web address] Information not available 09/05/2017 Which Of Your Hands Is Dominant? Left [email or web address] Information not available 04/02/2019 Hard Of Hearing Or Deaf In One Or Both Ears? No Information not available 01/27/2017 Legally Blind In One Or Both Eyes? No Information not available 01/27/2017 Live Alone Or With Others? With Others Information not available 01/27/2017 Marital Status [email or web address] Informatio n not available 04/02/2019 What Was The Date Of Your Most Recent Tobacco Screening? 02/08/2025 Information not available 02/08/2025 How Many Children Do You Have? 0 Information not available 01/27/2017 Performs Monthly Self-breast Exam? No Information not available 02/14/2018 What Is Your Relationship Status? Information not available 06/08/2021 Seat Belts Used Routinely Yes Information not available 01/27/2017 Are You Sexually Active? Yes Information not available 02/14/2018 Smoke Alarm In Home Yes Information not available 01/27/2017 Are You Passively Exposed To Smoke? Yes Smokes Information not available 02/14/2018 How Much Tobacco Do You Smoke? 1 PPW Information not available 11/15/2019 General Stress Level Low Information not available 02/14/2018 Do You Use Sunscreen Routinely? Yes Information not available 01/27/2017 Has Tobacco Cessation Counseling Been Provided? Yes Information not available 04/23/2022 On What Date Was Tobacco Cessation Counseling Provided? 02/08/2025 Information not available 02/08/2025 How Many Years Have You Smoked Tobacco? 53 Information not available 11/15/2019 Have You Recently Traveled Abroad? No Information not available 06/08/2021 Sex: Unknown Functional Status Question Answer Note LastModified by Organizat ion Details LastModified Time Do you use any illicit or recreational drugs? No Information not available 06/08/2021 Do you or have you ever used any other forms of tobacco or nicotine? No Information not available 06/08/2021 What is your level of alcohol consumption? Occasional 1-2 per year Information not available 01/27/2017 Do you or have you ever used smokeless tobacco? Never used smokeless tobacco Information not available 06/28/2019 Are you currently employed? No Information not available 01/27/2017 Are you able to care for yourself? Yes Information not available 01/27/2017 What is your occupation? Retired Information not available 01/27/2017 Do you or have you ever used e-cigarettes or vape? Never used electronic cigarettes [email or web address] Information not available 06/28/2019 What is your exercise level? Moderate Information not available 02/14/2018 Mental Status None recorded. Family History Relationship Description Onset Age of this Age Resolved Age Notes LastModified by Organization Details LastModified Time Mother Family history of malignant neoplasm Not available 2016 11:42:04 Medical History Condition Response Skin Problems Y Pacemaker Y Atrial Fibrillation Y High Cholesterol Y Heart Disease Y Hypertension Y Glasses/Contacts Y Immunizations Vaccine Type Date Status Note Provider Nam e and Address Organization Details Recorded Time Influenza, high-dose, trivalent, PF 8 completed Not Available [facility] 10/27/2019 02:51:10 Pneumococcal conjugate PCV 13 6 completed [facility] 08/07/2020 09:34:58 pneumococcal polysaccharide PPV23 0 completed [facility] 08/07/2020 09:34:58 Hep A, unspecified formulation 2 completed [facility] 08/07/2020 09:34:58 Hep B, unspecified formulation 2 completed [facility] 08/07/2020 09:34:58 zoster live 2 completed [facility] null, [facility] 08/07/2020 09:34:58 Tdap 2 completed [facility] null, [facility] 08/07/2020 09:34:58 Influenza, high-dose, trivalent, PF 9 completed Not Available [facility] 10/27/2019 02:48:21 Influenza, high-dose, quadrivalent, PF 0 completed Shadia Salmeron null, [facility] 07/02/2020 10:01:55 Influenza, high-dose, quadrivalent, PF 1 completed Kierra Rashid null, [facility] 07/22/2021 09:54:55 Tdap 0 completed [facility] 08/07/2020 09:34:58 SARS-COV-2 (COVID-19) vaccine, UNSPECIFIED 1 completed LACIE EASLEY MD [address] [place] [address], [address], [facility] 12/24/2020 11:30:18 COVID-19, mRNA, LNP-S, PF, 100 mcg/0.5mL dose or 50 mcg/0.25mL dose 1 completed Kristen [facility] 02/02/2021 10:22:15 Influenza, high-dose, trivalent, PF 7 completed Not Available [facility] 10/27/2019 02:45:19 COVID-19, mRNA, LNP-S, PF, 100 mcg/0.5mL dose or 50 mcg/0.25mL dose 1 completed Bebeto [facility] 10/30/2021 10:30:31 Past Encounters Encounter ID Performer Location Encounter Start Date Encounter Closed Date Diagnosis/Indication Diagnosis SNOMED-CT Code Diagnosis ICD10 Code Diagnosis Note [id number] ABEBA HOOKS MD CARDIOLOG [address] ,[address] [place] [address] 02/08/2025 10:56:06 02/08/2025 14:03:23 Coronary arteriosclerosis in [place] artery 5809939120 107 I25.759 Type 2 NSTEMI 05/2021 with Troponin 2.650 History of coronary artery bypass grafting 063243671 Z95.1 Coronary Artery Disease s/p remote 5v CABG in 2007 (Dr Kyle)CELY TS: Sequential BYRD-D2 & LAD, SVG to PDA branch of the LCx, sequential SVG to D1 & OM2. Coronary Angiogram 09/11/2019 (Dr Easley):L M: Bifurcatin g without significan t stenosisLA D: OccludedLC x: Patent to PLB. The marginal branch is occluded.R CA: OccludedGR AFTS: All 3 grafts are patent. Biologic c ardiac valve prosthesis in situ [id number] Z95.3 Severe Aortic stenosis s/p TAVR 9mm [place] 3 bioprosthe sis (Dr Quinonez + [facility]) 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 VITOR 12/30/2020: Peak velocity 2.3m/s. Peak gradient 22mmHg.ECH O 08/04/2020 : Max gradient 86mmHg, Mean gradient 55mmHg. ECHO 10/23/2021: The aortic valve bioprosthe tic valve is well-seate d and appears to be functionin g normally.P eak velocity 1.96 m/s. Mean gradient 8 mmHg. 11/17/2023 ECHO:1. The left ventricle is normal in size. There is focal hypertroph y of the basal septum to 19mm. Remaining wall thickness is 12-15mm.2. Normal left ventricula r systolic function with visually estimated ejection fraction 55-60%3. Grade I diastolic dysfunctio n. LV filling pressures are estimated to be normal.4. Mild left atrial enlargemen t.5. Mildly dilated right ventricle with normal RV function.6 . Aortic Valve: There is a transcathe ter bioprosthe tic valve that is well-seate d, There is no valvularre gurgitatio n. There is no paravalvul ar leak. The peak gradient is 13 mmHg. The mean gradient is 7 mmHg. These gradients are normal for this prosthetic valve.7. Right ventricula r pacing lead with mild tricuspid regurgitat ion. Estimated RVSP is <35mmHg (normal). Anticoagulant therapy 18 [id number] Z79.01 Indication : valve thrombosis 07/2020 and then again in 05/2021 Currently on Coumadin (per patient preference ).INR managed by [facility] cardiology clinic. Biventricu lar cardiac pacemaker present [id number] 9105 Z95.0 Biventricu lar pacemaker (LYLES) placed : VVIR 3: Reprogramm ed to DDD 50, RVP only Last in office device check:02/08PLAN: Continue with quarterly remote device checks and annual in-office interrogat ion. Body mass index 25-29 - overweight [id number] Z68.29 Health Concerns Section Related Observation LastModified by Organization Detai ls LastModified Time None Recorded Concern Status LastModified by Organization Details LastModified Time None Recorded Payers Encounter Date Sequence Insurance Name Policy Number Policy Chacon Covered Member ID Chacon Member ID Guarantor Name 02/08/2025 2 [employer] (MEDICARE SUPPLEMENT) PLAN N Dvaid Cox Maryasammy [id number] David Cormier 02/08/2025 1 [place] David Cox Maryasammy [id number] David Cormier Notes Date Note Type Note Provider Name and Address Organization Details Recorded Time 02/08/2025 text/html CARDIOVASCULAR HISTORY:# Coronary Artery Disease s/p remote 5v CABG in 2007 (Dr Kyle)GRAFTS: Sequential BYRD-D2 & LAD, SVG to PDA branch of the LCx, sequential SVG to D1 & OM2. Coronary Angiogram 09/11/2019 (Dr Easley):LM: Bifurcating without significant stenosisLAD: OccludedLCx: Patent to PLB. The marginal branch is occluded.RCA: OccludedGRAFT ANATOMY: All 3 grafts are patent. # History of postoperative Atrial Fibrillation# Atrial flutter s/p CTI Nov [id number] score 3.Treated with amiodarone until approximately 2011; then switched to flecainide.S/P CTI ablation by Dr. Hughes 11/14/2018. # Severe Aortic stenosis s/p TAVR 10/29/2019 (29mm [place] 3 Bioprosthesis, Dr Quinonez + [facility])a. 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 His valve hemodynamics improved after Coumadin was added. He was switched back to low-dose aspirin monotherapy. VITOR 12/30/2020: Peak velocity 2.3m/s. Peak gradient 22mmHg.ECHO 08/04/2020: Max gradient 86mmHg, Mean gradient 55mmHg. ECHO 06/02/2021:Technicall y difficult study, Optison used.Normal sized left ventricle with moderate left ventricular hypertrophy. LVEF 50%S/P TAVR Peak/Mean PG 55/30 mmHg. DVI 0.35.No paravalvular aortic regurgitation. Trivial central aortic regurgitation.Dilate d RA and RV.Mildly dilated aortic root 4.2 cm. Mildly dilated ascending aorta 4 cm. 11/17/2023 ECHO:1. The left ventricle is normal in size. There is focal hypertrophy of the basal septum to 19mm. Remaining wall thickness is 12-15mm.2. Normal left ventricular systolic function with visually estimated EF 55-60%3. Grade I diastolic dysfunction. LV filling pressures are estimated to be normal.4. Mild left atrial enlargement.5. Mildly dilated right ventricle with normal RV function.6. Aortic Valve: There is a transcatheter bioprosthetic valve that is well-seated, There is no valvular regurgitation. There is no paravalvular leak. The peak gradient is 13 mmHg. The mean gradient is 7 mmHg. These gradients are normal for this prosthetic valve.7. Right ventricular pacing lead with mild tricuspid regurgitation. Estimated RVSP is <35mmHg (normal). When compared to prior study performed 10/23/2021, and allowing for differences in image quality and technique, there is no significant interval change noted. # Biventricular pacemaker (LYLES) 11/07/2019a. 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 Device: 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 Okayed to resume Antiplatelets/Antico agulants 01/14/[address] Rasheed 05/23/2024: 6-month follow-up visit re: ASCVD (CABG 2007) and TAVR (10/2019)Mr Cormier reports that his overall health has been excellent .He did not raise any active cardiovascular concerns today. 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 His weight remains stable. No edema.No palpitations.No cough, shortness of breathNo focal neurological symptoms suggestive of TIA There are no new lab results to review since last visit. 02/08/2025: 6-month follow-up visit re: ASCVD (CABG 2007) and TAVR (10/2019)Mr Cormier reports that his overall health has been excellent .He did not raise any active cardiovascular concerns today. 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 His weight remains stable. No edema.No palpitations.No cough, shortness of breathNo focal neurological symptoms suggestive of TIA His pacemaker system was interrogated at today's visit, and I reviewed the findings with him. See scanned document for complete results. 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 Implant: November 07 2019 Mode: DDD 50 Pacin% AP 31% RVP Events: None. No permanent programming changes were made to his device. ABEBA HOOKS MD [address] [place] [address], [phone], [facility] 02/08/2025 12:33:31
--- OUTSIDE RECORDS SUMMARY | 2025-03-28 10:44 | XMS_ITS | Encounter Summary ---
Author Organization [employer] Address [address] [place] [address] Care Team Providers Care Manager Medicare Name Role Phone Unavailable Primary Care Provider Unavailabl e Encounter Details Date Type Department Care Team (Late st Contact Info) Description 11/08/2019 Transcribed Document [facility] Radiology [address] [place] [address] Abel Kapadia MD [address] [place] [address] [address] [place] [address] Social History Tobacco Use Types Packs/Day Years Used Date Smoking Tobacco: Never Assessed Sex and Gender Information Value Date Recorded Sex Assigned at Not on file Legal Sex Male 6:49 PM CDT Gender Identity Not on file Sexual Orientation Not on file documented as of this encounter Miscellaneous Notes * Cerner Conversion Note - Abel Kapadia MD - 11/08/2019 11:53 AM EST Patient: SHIRA GARZA HORACIO Age: 84 years Sex: Male : 1935 Associated Diagnoses: None Author: ABEL KAPADIA MD-INT Subjective DATE OF ADMISSION: 11/04/2019 Date of Discharge 11/08/2019 PRIMARY CARE PHYSICIAN: Dr. Marcelino Caldera, [facility]. REFERRING PHYSICIAN: Dr. Beckman, [facility] , 1935. CURRENT COMPLAINT: Falls, dizziness, irregular heartbeat. HISTORY OF PRESENT ILLNESS: Shira Garza is an 84-year-old man, , living in the [facility], who recently underwent a transcatheter aortic valve [...] obtained -Cardiology -Neurosurgery -Physical and occupational therapy PROCEDURE PERFORMED: Biventricular pacemaker implant. Procedures and workup -CT head with small [...] pacer pending, HD stable, TTF today 11/08-pt seen, s/p PPM. BP slightly high, pt offers no c/o to me, clear for dc per cards-will raise AYAN dose Health Status Allergies: Allergic Reactions (Selected) Severity [...] Q4H, PRN: Hypertension lisinopril: 20 mg, Oral, BID multivitamin: 1 Tab, Oral, Daily niCARdipine injection 25 mg + NaCl 0.9% for drip 250 mL: TITRATE, IntraVENous Prescriptions Prescribed lisinopril 20 mg oral tablet: 1 Tab, Oral, BID, for 30 Day(s), 60 Tab, 0 Refill(s) Documented Medications Documented Nitrostat 0.4 mg sublingual tablet: 1 Tab, SubLINgual, Q5Min, not to exceed 3 doses/15 min--if pain persists, seek medical attention, PRN: Chest Pain, 100 Tab, 0 Refill(s) atorvastatin 20 mg oral tablet: 1 Tab, Oral, Weekly, 0 Refill(s) isosorbide mononitrate 30 mg oral tablet, extended release: 1 Tab, Oral, QAM, 0 Refill(s) multivitamin: 1 Tab, Oral, Daily, [...] 1 Tab, PRN, SubLINgual, Q5Min , Medications (14) Active Scheduled: (5) #NaCl 0.9% *FLUSH* inj 10 mL 10 mL, IV Push, Q12H atorvastatin 20 mg tab 20 mg 1 Tab, Oral, Weekly isosorbide MONOnitrate ER 30 mg tab 30 mg 1 Tab, Oral, QAM lisinopril 20 mg tab 20 mg 1 Tab, Oral, BID multiple vitamin (Thera) tab 1 Tab, Oral, [...] At risk for sleep apnea / IMO [id number] / Confirmed Shortness of breath / SNOMED CT 841540974 / Confirmed Hypertension / SNOMED CT 08730724 / Confirmed Wears glasses / SNOMED CT 336068012 / Confirmed, Active Problems (11) Aortic stenosis At risk for sleep apnea Atrial flutter Benign neoplastic disease CAD (coronary artery disease) Hyperlipidemia Hypertension Renal calculus Right bundle branch block Shortness of breath Wears glasses Objective VS/Measurements Vitals Signs (last 24 hrs) Last Charted Minimum Maximum Temp 98.4 (NOV 08 06:24) 96.8 (NOV 07 20:00) 98.4 (NOV 07 23:19) Apical HR 69 (NOV 08 06:24) 65 (NOV 07 17:16) 75 (NOV 07 23:08) Mon HR 75 (NOV 08 06:24) 54 (NOV 07 11:30) 75 (NOV 07 18:15) Resp Rate 16 (NOV 08 06:24) 16 (NOV 08 06:24) 17 (NOV 07 21:00) SBP H 164 (NOV 08 06:24) 93 (NOV 07 19:00) H 176 (NOV 07 17:14) DBP H 98 (NOV 08 06:24) L 50 (NOV 07 19:15) H 98 (NOV 08 06:24) MAP 120 (NOV 08 06:24) 70 (NOV 07 19:00) 122 (NOV 07 17:14) SpO2 97 (NOV 08 06:24) L 88 (NOV 07 17:30) 99 (NOV 07 23:19) General: No acute distress. Eye: Normal conjunctiva. Neck: No jugular venous distention. Respiratory: Lungs are clear to auscultation, Respirations are non-labored, Breath sounds are equal. Cardiovascular: Regular rhythm, No gallop, S1+ S2 No S3 or S4 [place].. Gastrointestinal: Soft, Non-tender, Non-distended, Normal bowel sounds. [...] (NOV 04) Radiology Results (Last 48 hours) [id number] -- 11/04/2019 21:19 CR Chest 1 Vw Portable (11/07/2019 17:28) Result: PORTABLE CHESTHISTORY: Pacemaker placement.COMPARISON: October 26, 2019.FINDINGS: A single portable radiograph of the chest was performed.Patient is status post median sternotomy and CABG. There has beeninterval placement of a left-sided pacemaker. The heart is normal insize. The aortic contours are normal. The lungs are well expandedwith no infiltrate or edema. There are no pleural effusions. There isno pneumothorax identified. The visualized osseous structuresdemonstrate no acute abnormalities. IMPRESSION: Interval placement of pacemaker without pneumothorax.Images reviewed, interpreted, and dictated by Dr. Gabino Brewer.Transcribed by Marcela Olson (R)Benja (R).I have personally viewed, interpreted and dictated the examination. Ihave read and agree with the above final transcribed report. 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-s/p PPM on 11/07 -Small right-sided subdural hematoma in the setting of aspirin and Plavix use -History of aortic stenosis status post recent TAVR -History of coronary artery disease status post CABG -Paroxysmal atrial fibrillation -Essential hypertension-poor control-AYAN raised Discharge Medications (5) Active atorvastatin 20 mg oral tablet 20 mg = 1 Tab, Oral, Weekly isosorbide mononitrate 30 mg oral tablet, extended release 30 mg = 1 Tab, Oral, QAM lisinopril 20 mg oral tablet 20 mg = 1 Tab, Oral, BID--new dose multivitamin 1 Tab, Oral, Daily Nitrostat 0.4 mg sublingual tablet 0.4 mg = 1 Tab, PRN, SubLINgual, Q5Min Discharge/Follow Up instructions: Follow up with primary care physician (PCP) will be arranged ASA and plavix held f/u 2 weeks NSY- Dr Rasheed Activity as tolerated pacer wound check-instructions defer to cards Patient seen and examined on the day of discharge Discharge was discussed with the patient Greater than thirty minutes spend coordinating the discharge process CC: copy of this discharge summary to patients Primary Care Provider (PCP) documented in this encounter Plan of Treatment Not on file documented as of this encounter Visit Diagnoses Not on filedocumented in this encounter
--- OUTSIDE RECORDS SUMMARY | 2025-03-28 10:44 | XMS_ITS | Encounter Summary ---
Author Organization [facility] Address [address] [place] [address] Care Team Providers Care Hand Sign Writer Name Role Phone Unavailable Primary Care Provider Unavailabl e Encounter Details Date Type Department Care Team (Late st Contact Info) Description 12/03/2019 Transcribed Document [facility] [address] [place] [address] ProviderPrasanth MD [address] [place] [address] Social History Tobacco Use Types Packs/Day Years Used Date Smoking Tobacco: Never Assessed Sex and Gender Information Value Date Recorded Sex Assigned at Not on file Legal Sex Male 6:49 PM CDT Gender Identity Not on file Sexual Orientation Not on file documented as of this encounter Miscellaneous Notes * Cerner Conversion Note - Prasanth Sanchez MD - 12/03/2019 11:25 AM VIDEOGAME TESTER [facility] [address] [place] [address] KAYLA SHIRA HORACIO :1935 Visit Time:12/03/2019 Your Visit Summary Your Care Team Admitting Physician - WINNIE AYALA MD-CAR Attending Physician - WINNIE AYALA MD-ANN MARIE Primary Care Physician - KARON MCWILLIAMS MD-INT Referring Physician - WINNIE AYALA MD-CAR Your Diagnosis Endocarditis Discharge Vitals Temperature 36.4 ??C Heart Rate (Monitored) 60 Respiratory Rate 11 Blood Pressure 106/63 What to do next Instructions From Your Care Team Do not drive for the next 24 hours. Resume usual diet. Take medications as precribed. Follow-Up Appointments Follow Up with BLANK HUGHES When Within 1 day Comments F/U with Dr Hughes today(12/03) afternoon at [facility] Where: [address] [place] [address]- [facility] (1) Medications What How Much When Instructions Next Dose lisinopril 20 Milligram(s) Oral Every Day 12-04-19 atorvastatin (atorvastatin 20 mg oral tablet) 1 Tablet(s) Oral Tuesday12-09-19 isosorbide mononitrate (isosorbide mononitrate 30 mg oral tablet, extended release) 1 Tablet(s) Oral Every Morning 12-04-19 multivitamin 1 Tablet(s) Oral Every Day 12-04-19 nitroglycerin (Nitrostat 0.4 mg sublingual tablet) 1 Tablet(s) SubLINgual Every 5 minutes as needed for Chest Pain not to exceed 3 doses/ 15 min--if pain persists, seek medical attention Take your medications faithfully. Do NOT skip [...] per your retail pharmacy guidance. Allergies amiodarone (Unknown) Immunizations This Visit No Immunizations Found Education Materials Transesophageal Echocardiogram Transesophageal echocardiogram (VITOR) is a test that uses sound waves (echocardiogram) to produce very clear, detailed images of the heart. VITOR is done by passing a flexible tube down the esophagus. The heart is located in front of the esophagus. VITOR may be done: ??? To check how well your heart valves are working. ??? To check for any abnormal growth or tumor ??? To look for blood clots ??? To check for infection of the lining of the heart (endocarditis). ??? To evaluate the dividing wall (septum) of the heart and check for a hole that did not close after (patent foramen ovale or atrial septal defect). ??? To help diagnose a tear in the wall of the blood vessels (aortic dissection). ??? To look at the heart shape, size, and function. Any changes can be associated with certain conditions, including heart failure, aneurysm, and coronary heart disease, CAD. ??? During cardiac valve surgery. This allows the surgeon to assess the valve repair before closing the chest. ??? During a variety of other cardiac procedures to guide positioning of catheters. ??? To monitor your heart's response to IV fluids or medicine. VITOR is usually not a painful procedure. You may feel the probe press against the back of the throat. The probe does not enter the trachea and does not affect your breathing. Tell a health care provider about: ??? Any allergies you have. ??? All medicines you are taking, including vitamins, herbs, eye drops, creams, and tocg-gbh-arvhvps medicines. ??? Any problems you or family members have had with anesthetic medicines. ??? Any blood disorders you have. ??? Any surgeries you have had. ??? Any medical conditions you have. ??? Any swallowing difficulties. ??? Whether you have or have had a blockage of the esophagus (esophageal obstruction). ??? Whether you are or may be . What are the risks? Generally, this is a safe procedure. However, problems may occur, including: ??? Damage to other structures or organs. ??? A tear of the esophagus (esophageal rupture). ??? Irregular heart beat (arrhythmia). ??? Hoarse voice or difficulty swallowing. ??? Bleeding (hemorrhage). What happens before the procedure? Staying hydrated Follow instructions from your health care provider about hydration, which may include: ??? Up to 3 hours before the procedure ??? you may continue to drink clear liquids, such as water, clear fruit juice, black coffee, and plain tea. Eating and drinking Follow instructions from your health care provider [...] General instructions ??? You will need to remove any dentures or dental retainers. ??? Plan to have someone take you home from the hospital or clinic. ??? Plan to have a responsible adult care for you for at least 24 hours after you leave the hospital or clinic. This is important. ??? Ask your health care provider about: ? Changing or stopping your normal medicines. This is important if you take diabetes medicines or blood thinners. ? Taking aqgl-hrb-xuadqfo medicines, vitamins, herbs, and supplements. ? Taking medicines such as aspirin and ibuprofen. These medicines can thin your blood. Do not take these medicines unless your health care provider tells you to take them. What happens during the procedure? To reduce your risk of infection: ? Your health care team will wash or sanitize their hands. ? Hair may be removed from the surgical area. ? Your skin will be washed with soap. ??? An IV will be inserted into one of your veins. ??? You will be given one or both of the following: ? A medicine to help you relax (sedative). ? A medicine to be sprayed or gargled in order to numb the back of your throat (local anesthetic). ??? Your blood pressure, heart rate, and breathing (vital signs) will be monitored during the procedure. ??? You may be asked to lay on your left side. ??? A bite block will be placed in your mouth to keep you from biting the tube during the procedure. ??? The tip of the VITOR probe will be placed into the back of your mouth. You will be asked to swallow. This helps to pass the tip of the probe into the esophagus. ??? Once the tip of the probe is in the correct area, your health care provider will take pictures of the heart. ??? The probe and bite block will be removed when the procedure is done. The procedure may vary among health care providers and hospitals What happens after the procedure? Your blood pressure, heart rate, breathing rate, and blood oxygen level will be monitored until the medicines you were given have worn off. ??? When you first wake up, your throat may feel slightly sore and will probably still feel numb. This will improve slowly over time. You will not be allowed to eat or drink until the numbness has gone away. ??? Do not drive for 24 hours if you received a sedative. Summary ??? Transesophageal echocardiogram (VITOR) is a test that uses sound waves (echocardiogram) to produce very clear, detailed images of the heart. ??? VITOR is done by passing a flexible tube down the esophagus. ??? Generally, this is a safe procedure. However, problems may occur, including damage to other structures or organs, bleeding, irregular heart beat, and a hoarse voice or trouble swallowing. ??? Tell your health care provider about any medicines and medical conditions you may have, as some conditions may increase your risk of complications. This information is not intended to replace advice given to you by your health care provider. Make sure you discuss any questions you have with your health care provider. Document Released: 12/17/2003 Document Revised: 12/23/2017 Document Reviewed: 12/23/2017 [employer] Patient Education ?? 2019 [employer] Moderate Conscious Sedation, Adult, Care After [...] you are awake and alert. ??? Take eaiz-pcb-vybpzhl and prescription medicines only as told by [...] 07/17/2014 Document Revised: 02/28/2017 Document Reviewed: 01/15/2017 [employer] Patient Education ?? 2019 [employer] Emergency Awareness and Preventative Care STROKE [...] Assistance with quitting is available by contacting 6-110-PVET-NOW. This is a free resource providing counseling, [...] This Visit (last charted value for your 12/03/2019 visit) Echo 12/03/2019 11:13 AM EC VITOR Complete: EC VITOR Complete Patient Name:SHIRA GARZA I have received and understand this information and was given the opportunity to ask questions. Patient/Oral Pathologist Name: Patient/Oral Pathologist Signature: Relationship to Patient: Clinician/Hospital Oral Pathologist Signature: Date: documented in this encounter Plan of Treatment Not on file documented as of this encounter Visit Diagnoses Not on filedocumented in this encounter
--- OUTSIDE RECORDS SUMMARY | 2025-03-28 10:44 | XMS_ITS | Encounter Summary ---
Author Organization [employer] Address [address] [place] [address] Care Team Providers Care Biomedical Engineering Professor Name Role Phone Unavailable Primary Care Provider Unavailabl e Encounter Details Date Type Department Care Team (Late st Contact Info) Description 11/08/2019 Transcribed Document [facility] [place] [facility] [address] [place] [address] ProviderPrasanth MD [facility] [place], [place] [id number] Social History Tobacco Use Types Packs/Day Years Used Date Smoking Tobacco: Never Assessed Sex and Gender Information Value Date Recorded Sex Assigned at Not on file Legal Sex Male 6:49 PM CDT Gender Identity Not on file Sexual Orientation Not on file documented as of this encounter Miscellaneous Notes * Cerner Conversion Note - Historical ProviderMD - 11/08/2019 1:34 PM BAR STAFF Discharge Summary, PT Entered On: 11/08/2019 13:36 EST Performed On: 11/08/2019 13:34 EST by DRAKE PRICE, PT Discharge Summary Discharge Summary Provider Notified : Nursing, Physical Therapy Reason for Discharge : Discharged from hospital Discharged to, Therapy : Home, with family care Discharge Summary Comment, PT : Per last note, pt was supervised for supine to sit to stand and 300' with Rwx and Min A. He has been D/C home today prior to PT session. DRAKE PRICE, PT - 11/08/2019 13:34 EST [facility] Goals Mobility/Bed Mobility LTG PT Grid Goal #1 Goal #2 Activity : Supine to sit Sit to stand Assist : Independent, complete Independent, modified Equipment : Rail, bed Belt, gait, Walker, front wheel Date to Meet : 11/19/2019 EST 11/19/2019 EST Goal Status : Not met Not met DRAKE PRICE, PT - 11/08/2019 13:34 EST DRAKE PRICE, PT - 11/08/2019 13:34 EST Ambulation LTG Grid Goal #1 Device : Walker, front wheel Distance : 375 feet Assist : Supervision or set-up Date to Meet : 11/19/2019 EST Goal Status : Not met DRAKE PRICE, PT - 11/08/2019 13:34 EST Electronically signed by [facility], [facility] Conversion Blade Bender Furn[employer] Tender Cerner at 01/26/2023 8:49 PM CDT documented in this encounter Plan of Treatment Not on file documented as of this encounter Visit Diagnoses Not on filedocumented in this encounter
--- OUTSIDE RECORDS SUMMARY | 2025-03-28 10:44 | XMS_ITS | Encounter Summary ---
Author Organization [employer] Address [address] [place] [address] Care Team Providers Care Sales Service Promoter Name Role Phone Unavailable Primary Care Provider Unavailabl e Encounter Details Date Type Department Care Team (Late st Contact Info) Description 11/08/2019 Transcribed Document [facility] [place] [address] [place] [address] ProviderPrasanth MD [address] [place] [id number] Social History Tobacco Use Types Packs/Day Years Used Date Smoking Tobacco: Never Assessed Sex and Gender Information Value Date Recorded Sex Assigned at Not on file Legal Sex Male 6:49 PM CDT Gender Identity Not on file Sexual Orientation Not on file documented as of this encounter Miscellaneous Notes * Cerner Conversion Note - Prasanth ProviderMD - 11/08/2019 11:42 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 [address] KAYLA SHIRA HORACIO :1935 Visit Time:11/04/2019 Your Visit Summary Your Care Team Admitting Physician - RASHAUN FERRARI MD-INT ABNER GARCIA MD-EMR PHY, UNKNOWN Attending Physician - RASHAUN FERRARI MD-INT ABNER GARCIA MD-EMR Primary Care Physician - KARON CALDERA MD-INT Referring Physician - ABNER GARCIA MD-EMR Your Diagnosis Closed head injury Dizziness Dizziness Elevated troponin [place] Skin tear of right elbow without complication Symptomatic bradycardia Traumatic subdural hematoma Discharge Vitals Temperature 37.1 ??C Heart Rate (Monitored) 112 Respiratory Rate 18 Blood Pressure 123/59 What to do next Instructions From Your Care Team Note new dose for Lisinopril - increase to twice daily Please hold Aspirin and Plavix (Clopidogrel) for 2 weeks until follow-up appointment Discharge Activity: Discharge Activity: Activity as tolerated Diet: Discharge Diet: Heart healthy diet Follow-Up Appointments Follow Up with LESLY CHIANG When 11/22/2019 10:45 AM EST Comments W/ head ct w/o contrast. Appointment has been made . Where: [address] [facility] [address] [place] [id number]- Business (1) Follow Up with IRENE MAJANO When 11/15/2019 10:[address] [facility] [place]. Appointment has been made Where: [address] [place], [place] [id number]- Business (1) Follow Up with LACIE ALVA When Within 3 months Comments Call for follow up appointment near the end of December. Where: [address] [place] [address] [facility] [place] [id number]- Business (1) Follow Up with KARON CALDERA When Within 1 to 2 weeks Where: [address] [place] [address] [facility]NAL [facility] [place] [id number] Business (1) Follow Up with [facility] When Only if needed Comments Patient states Karon Caldera is his Primary Care Provider. Please contact the [facility] at if you need assistance scheduling a Specialist or Primary Care Provider in the future. Medications What How Much When Instructions Next Dose atorvastatin (atorvastatin 20 mg oral tablet) 1 Tablet(s) Oral Weekly lisinopril (lisinopril 20 mg oral tablet) 1 Tablet(s) Oral Two Times A Day Duration: 30 Day(s) Printed Prescription nitroglycerin (Nitrostat 0.4 mg sublingual tablet) 1 Tablet(s) SubLINgual Every 5 minutes as needed for Chest Pain not to exceed 3 doses/ 15 min--if pain persists, seek medical attention isosorbide mononitrate (isosorbide mononitrate 30 mg oral tablet, extended release) 1 Tablet(s) Oral Every Morning multivitamin 1 Tablet(s) Oral Every Day Take your medications faithfully. Do [...] guidance. Allergies amiodarone (Unknown) Immunizations This Visit tetanus/diphtheria/pertussis, acel(Tdap) 11/04/2019 Education Materials Biventricular Pacemaker Implantation, Care After Refer to this sheet in the next few weeks. These instructions provide you with information about caring for yourself after your procedure. Your health care provider may also give you more specific instructions. Your treatment has been planned according to current medical practices, but problems sometimes occur. Call your health care provider if you have any problems or questions after your procedure. What can I expect after the procedure? After the procedure, it is common to have: ??? Mild pain or soreness in your chest for several days. ??? A small amount of blood or clear fluid coming from your incision. ??? A slight bump in your chest where the pulse generator was placed. You may be able to feel the generator under your skin. This is normal. Follow these instructions at home: Medicines ??? Take wirv-zrh-ewqqgao and prescription medicines only as told by your health care provider. ??? Do not take any new medicines without asking your health care provider first. ??? If you were prescribed an antibiotic medicine, take it as told by your health care provider. Do not stop taking the antibiotic even if you start to feel better. Incision care ??? Keep your incision area clean and dry. ??? Follow instructions from your health care provider about how to take care of your incision. Make sure you: ? Wash your hands with soap and water before you change your bandage (dressing). If soap and water are not available, use hand medical records secretary. ? Change your dressing as told by your health care provider. ? Leave stitches (sutures), skin glue, or adhesive strips in place. These skin closures may need to stay in place for 2 weeks or longer. If adhesive strip edges start to loosen and curl up, you may trim the loose edges. Do not remove adhesive strips completely unless your health care provider tells you to do that. ??? Check your incision area every day for signs of infection. Check for: ? More redness, swelling, or pain. ? More fluid or blood. ? Warmth. ? Pus or a bad smell. Activity ??? Return to your normal activities as told by your health care provider. Ask your health care provider what activities are safe for you. ??? Do not lift anything that is heavier than 10 lb (4.5 kg) until your health care provider approves. ??? Do not lift your upper arms above your shoulders for at least 6 weeks or as long as told by your health care provider. ? If you sleep with your arms above your head, wear an arm restraint while you sleep to prevent this from happening. ? Avoid sudden movements that pull your upper arms far away from your body for at least 6 weeks. ??? Do a mild form of exercise at least once a day. As you feel better, you may exercise more. ??? Gently stretch your shoulders at least once a day to help prevent stiffness in your chest. Electricity and Magnetic Petit ??? Avoid places and objects that have a strong electric or magnetic field. This includes: ? Airport security checkpoints. When you are at the airport, tell officials that you have a pacemaker and show them your pacemaker identification card. Officials will check you in safely so that your pacemaker is not damaged. Do not allow magnetic wands to be waved near your pacemaker. That can make the pacemaker stop working. ? Metal detectors. If you must pass through a metal detector, walk through it quickly. Do not stop under the detector or stand near it. ? Power plants. ? Large electrical generators. ? Radiofrequency transmission towers, such as cell phone and radio towers. ??? Do not use amateur ( Adility ) radio equipment or electric ( arc ) welding torches. If you are not sure whether something is safe to use, ask your health care provider. ? Some devices may be safe to use if you hold them at least 1 ft (0.3 m) from your pacemaker. These devices may include power tools, lawn mowers, and speakers. ??? When you talk on your cell phone, hold it to your ear that is opposite from the side that your pacemaker is on. Do not leave your cell phone in a pocket over your pacemaker. Long-Term Care ??? Carry your pacemaker identification card with you at all times, especially when you travel. ??? Consider wearing a medical alert bracelet or necklace that explains your pacemaker and any heart conditions you have. ??? Tell all health care providers who care for you that you have a pacemaker. This may prevent you from having an MRI because of the strong magnets used during that test. ??? Have your pacemaker checked every 3???6 months or as often as told by your health care provider. General instructions ??? Do not use any tobacco products, such as cigarettes, chewing tobacco, or e-cigarettes. If you need help quitting, ask your health care provider. ??? Do not drive or operate heavy machinery while taking prescription pain medicine. ??? Do not take baths, swim, or use a hot tub until your health care provider approves. ??? Follow instructions from your health care provider about eating or drinking restrictions. ??? Weigh yourself every day and write down your weight. ??? Keep all follow-up visits as told by your health care provider. This is important. Contact a health care provider if: ??? You suddenly gain 3 lb (1.4 kg) or more in 24 hours. ??? You have swelling in your feet or legs. ??? You have an irregular heartbeat (palpitations). ??? You have more redness, swelling, or pain around your incision. ??? You have more fluid or blood coming from your incision. ??? Your incision area feels warm to the touch. ??? You have pus or a bad smell coming from your incision. Get help right away if: ??? You have chest pain. ??? You have difficulty breathing. ??? You suddenly feel light-headed. ??? You have a fever. ??? You faint. These symptoms may represent a serious problem that is an emergency. Do not wait to see if the symptoms will go away. Get medical help right away. Call your local emergency services (911 in the [place] Do not drive yourself to the hospital. This information is not intended to replace advice given to you by your health care provider. Make sure you discuss any questions you have with your health care provider. Document Released: 06/20/2013 Document Revised: 12/14/2017 Document Reviewed: 06/20/2016 [employer] Interactive Patient Education ?? 2019 [employer] Head Injury, Adult There are many types of head injuries. They can be as minor as a bump. Some head injuries can be worse. Worse injuries include: ??? A strong hit to the head that hurts the brain (concussion). ??? A bruise of the brain (contusion). This means there is bleeding in the brain that can cause swelling. ??? A cracked skull (skull fracture). ??? Bleeding in the brain that gathers, gets thick (makes a clot), and forms a bump (hematoma). Most problems from a head injury come in the first 24 hours. However, you may still have side effects up to 7???10 days after your injury. It is important to watch your condition for any changes. Follow these instructions at home: Activity ??? Rest as much as possible. ??? Avoid activities that are hard or tiring. ??? Make sure you get enough sleep. ??? Limit activities that need a lot of thought or attention, such as: ? Watching TV. ? Playing memory games and puzzles. ? Job-related work or homework. ? Working on the computer, social media, and texting. ??? Avoid activities that could cause another head injury until your doctor says it is okay. This includes playing sports. ??? Ask your doctor when it is safe for you to go back to your normal activities, such as work or school. Ask your doctor for a yayu-gd-nfgw plan for slowly going back to your normal activities. ??? Ask your doctor when you can drive, ride a bicycle, or use heavy machinery. Never do these activities if you are dizzy. Lifestyle ??? Do not drink alcohol until your doctor says it is okay. ??? Avoid drug use. ??? If it is harder than usual to remember things, write them down. ??? If you are easily distracted, try to do one thing at a time. ??? Talk with family members or close friends when making important decisions. ??? Tell your friends, family, a trusted coworker, and pressed or blown glass worker about your injury, symptoms, and limits (restrictions). Have them watch for any problems that are new or getting worse. General instructions ??? Take otmd-fae-dyfrvfr and prescription medicines only as told by your doctor. ??? Have someone stay with you for 24 hours after your head injury. This person should watch you for any changes in your symptoms and be ready to get help. ??? Keep all follow-up visits as told by your doctor. This is important. How is this prevented? Work on your balance and strength. This can help you avoid falls. ??? Wear a seatbelt when you are in a moving vehicle. ??? Wear a helmet when: ? Riding a bicycle. ? Skiing. ? Doing any other sport or activity that has a risk of injury. ??? Drink alcohol only in moderation. ??? Make your home safer by: ? Getting rid of clutter from the floors and stairs, like things that can make you trip. ? Using grab bars in bathrooms and handrails by stairs. ? Placing non-slip mats on floors and in bathtubs. ? Putting more light in dim areas. Get help right away if: ??? You have: ? A very bad (severe) headache that is not helped by medicine. ? Trouble walking or weakness in your arms and legs. ? Clear or bloody fluid coming from your nose or ears. ? Changes in your seeing (vision). ? Jerky movements that you cannot control (seizure). ??? You throw up (vomit). ??? Your symptoms get worse. ??? You lose balance. ??? Your speech is slurred. ??? You pass out. ??? You are sleepier and have trouble staying awake. ??? The black centers of your eyes (pupils) change in size. These symptoms may be an emergency. Do not wait to see if the symptoms will go away. Get medical help right away. Call your local emergency services (911 in the [place] Do not drive yourself to the hospital. This information is not intended to replace advice given to you by your health care provider. Make sure you discuss any questions you have with your health care provider. Document Released: 09/08/2009 Document Revised: 01/20/2018 Document Reviewed: 04/05/2017 [employer] Interactive Patient Education ?? 2019 [employer] Subdural Hematoma A subdural hematoma is a collection of blood between the brain and its tough outer covering (dura). As the amount of blood increases, it puts pressure on the brain. There are two types of subdural hematomas: ??? Acute. This type develops shortly after a hard, direct hit (blow) to the head and causes blood to collect very quickly. This is a medical emergency. If it is not diagnosed and treated quickly, it can lead to severe brain injury or . ??? Chronic. This is when bleeding develops more slowly, over weeks or months. What are the causes? This condition is caused by bleeding (hemorrhage) from a broken (ruptured) blood vessel. In most cases, a blood vessel ruptures and bleeds because of injury (trauma) to the head, such as from a hard, direct hit. Head trauma can happen in: ??? Traffic accidents. ??? Falls. ??? Assaults. ??? Sport injuries. In rare cases, hemorrhage can happen without a known cause (spontaneously), especially if you take blood thinners (anticoagulants). What increases the risk? This condition is more likely to develop in: ??? Older people. ??? Infants. ??? People who take blood thinners. ??? People who have injured their head. ??? People who abuse alcohol. What are the signs or symptoms? Depending on the size of the hematoma, symptoms can vary from mild to severe and life-threatening. Symptoms in acute subdural hematoma can develop over minutes or hours. Symptoms in chronic subdural hematoma may develop over weeks or months. ??? Headaches. ??? Nausea or vomiting. ??? Changes in vision, such as double vision or loss of vision. ??? Changes in speech. ??? Loss of balance or difficulty walking. ??? Weakness, numbness, or tingling in the arms or legs on one side of the body. ??? Jerky movements that you cannot control (seizures). ??? Change in personality. ??? Increased sleepiness. ??? Memory loss. ??? Loss of consciousness. ??? Coma. How is this diagnosed? This condition is diagnosed based on the results of: ??? A physical and neurological exam. ??? CT scan. ??? MRI. How is this treated? Treatment for this condition depends on the severity and the type of subdural hematoma that you have. You may need to temporarily stop taking blood thinners, if this applies. You may be given antiseizure (anticonvulsant) medicine. Treatment for acute subdural hematoma may include: ??? Medicines that help the body get rid of excess fluids (diuretics). These may help reduce pressure in the brain. ??? Assisted breathing (ventilation). This involves using a machine called a ventilator to help you breathe. This helps to reduce pressure in the brain, especially if there is swelling of the brain. ??? Emergency surgery to drain blood or remove a blood clot. Treatment for chronic subdural hematoma may include: ??? Observation and bed rest at the hospital. ??? Emergency surgery. This may be done if the bleeding is large, or if you have neurological symptoms such as weakness or numbness. Sometimes, no treatment is needed for chronic subdural hematoma. Follow these instructions at home: Activity ??? Avoid any situation where there is potential for another head injury, such as football, hockey, soccer, basketball, martial arts, downhill snow sports, and horseback riding. Do not do these activities until your health care provider approves. ? If you play a contact sport and you experience a head injury, follow advice from your health care provider about when you can return to the sport. If you get another injury while you are healing, you may experience another hemorrhage. ??? Avoid excessive visual stimulation while recovering. This includes working on the computer, watching TV, and reading. ??? Try to avoid activities that cause physical or mental stress. Stay home from work or school as directed by your health care provider. ??? Do not drive, ride a bicycle, or use heavy machinery until your health care provider approves. ??? Do not lift anything that is heavier than 5 lb (2.3 kg) until your health care provider approves. ??? If physical therapy was prescribed, do exercises as told by your health care provider or physical therapist. ??? Rest as told by your health care provider. Rest helps the brain to heal. ??? Make sure you: ? Get plenty of sleep. Avoid staying up late at night. ? Keep a consistent sleep schedule. Try to go to sleep and wake up at about the same time every day. General instructions ??? Recovery from brain injuries varies widely. Talk with your health care provider about what to expect. Monitor your symptoms, and ask people around you to do the same. ??? Take ladr-him-qjcvqvy and prescription medicines only as told by your health care provider. Do not take blood thinners or NSAIDs unless your health care provider approves. This includes aspirin, ibuprofen, naproxen, and warfarin. ??? Limit alcohol intake to no more than 1 drink per day for non women and 2 drinks per day for men. One drink equals 12 oz of beer, 5 oz of wine, or 1?? oz of hard liquor. ??? Keep all follow-up visits as told by your health care provider. This is important. How is this prevented? Wear protective gear, such as helmets, when participating in activities such as biking or contact sports. ??? Always wear a seat belt when you are in a motor vehicle. ??? Keep your home environment safe to reduce the risk of falling: ? Remove clutter and tripping hazards from floors and stairways, such as loose rugs and extension cords. ? Use grab bars in bathrooms and handrails by stairs. ? Place non-slip mats on floors and in bathtubs. ? Improve lighting in dim areas. Where to find more information: ??? National [place] of Neurological Disorders and Stroke: www.ninds.nih.gov ??? [place] Association of Neurological Surgeons: http://www.aans.org ??? [place] Academy of Neurology (AAN): www.aan.com ??? Brain Injury Association of [place]: www.biausa.org Get help right away if: ??? You develop symptoms of subdural hematoma. ??? You are taking blood thinners and you fall or you experience minor trauma to the head. If you take any blood thinners, even a very small injury can cause a subdural hematoma. You should get help right away, even if you think your symptoms are mild. ??? You have a bleeding disorder and you fall or you experience minor trauma to the head. ??? You experience a head injury and you develop any of the following symptoms: ? Clear fluid draining from your nose or ears. ? Nausea. ? Vomiting. ? Slurred speech. ? Seizures. ? Drowsiness or a decrease in alertness. ? Double vision. ? Numbness or inability to move (paralysis) in any part of your body. ? Difficulty walking or poor coordination. ? Difficulty thinking. ? Confusion or forgetfulness. ? Personality changes. ? Irrational or aggressive behavior. ? A history of heavy alcohol use. These symptoms may represent a serious problem that is an emergency. Do not wait to see if the symptoms will go away. Get medical help right away. Call your local emergency services (911 in the [place] Do not drive yourself to the hospital. Summary ??? A subdural hematoma is a collection of blood between the brain and its tough outer covering. ??? Treatment for this condition depends on the severity and the type of subdural hemorrhage that you have. ??? Symptoms can vary from mild to severe and life-threatening. ??? Monitor your symptoms, and ask others around you to do the same. This information is not intended to replace advice given to you by your health care provider. Make sure you discuss any questions you have with your health care provider. Document Released: 08/13/2005 Document Revised: 08/31/2017 Document Reviewed: 08/31/2017 Elsevier Interactive Patient Education ?? 2018 [employer] Emergency Awareness and Preventative Care STROKE [...] Assistance with quitting is available by contacting 7-944-NULTNOW. This is a free resource providing counseling, support, and referral. Or you may contact your personal physician. [facility]: The National Suicide Prevention Lifeline is a [...] This Visit (last charted value for your 11/04/2019 visit) Hematology 11/06/2019 12:56 PM Platelet Count: 141 K/uL -- Normal range between ( 163 and 369 ) 11/04/2019 8:08 PM WBC: 6.4 K/uL -- Normal range between ( 3.6 and 9.5 ) RBC: 4.52 Million/uL -- Normal range between ( 4.20 and 5.70 ) Hct: 40.7 % -- Normal range between ( 40.1 and 51.0 ) Hgb: 13.3 g/dL -- Normal range between ( 13.5 and 17.3 ) MCH: 29.4 pg -- Normal range between ( 25.6 and 32.2 ) MCHC: 32.7 Gram/dL -- Normal range between ( 32.2 and 36.5 ) MCV: 90.0 fL -- Normal range between ( 79.0 and 94.8 ) Slide Review: No Eos %: 1.4 % -- Normal range between ( 0.0 and 7.0 ) Woodruff #: 0.61 K/uL -- Normal range between ( 0.16 and 1.00 ) Eos #: 0.09 x10(3)/uL -- Normal range between ( 0.00 and 0.80 ) Woodruff %: 9.6 % -- Normal range between ( 3.0 and 9.0 ) Baso %: 0.3 % -- Normal range between ( 0.0 and 1.5 ) Baso #: 0.02 x10(3)/uL -- Normal range between ( 0.00 and 0.20 ) RDW: 14.6 % -- Normal range between ( 11.7 and 14.9 ) Neut %: 66.8 % -- Normal range between ( 34.0 and 71.0 ) Neut #: 4.24 K/uL -- Normal range between ( 1.56 and 6.13 ) Lymph %: 20.8 % -- Normal range between ( 19.3 and 53.1 ) Lymph #: 1.32 x10(3)/uL -- Normal range between ( 1.00 and 3.90 ) MPV: 13.3 fL -- Normal range between ( 9.4 and 12.4 ) IG#: 0.07 x10(3)/uL -- Normal range between ( 0.00 and 0.05 ) IG%: 1.10 % -- Normal range between ( 0.00 and 0.60 ) Blood Bank 11/04/2019 10:04 PM TRANSFUSED: TRANSFUSED 11/04/2019 9:16 PM Plt Product Ready: Platelet Ready # of Units: 1 11/04/2019 8:08 PM ABO/Rh (ECHO): B POS General Chemistry 11/06/2019 10:00 AM Creatinine Level: 1.20 mg/dL -- Normal range between ( 0.70 and 1.30 ) Sodium Level: 140 mmol/L -- Normal range between ( 136 and 146 ) Potassium Level: 3.7 mmol/L -- Normal range between ( 3.5 and 5.1 ) Chloride Level: 107 mmol/L -- Normal range between ( 102 and 112 ) Carbon Dioxide Level: 26 mmol/L -- Normal range between ( 21 and 32 ) Anion Gap: 11 -- Normal range between ( 9 and 20 ) Bun/Creatinine: 15.8 -- Normal range between ( 8.0 and 20.0 ) Calcium Level: 8.9 mg/dL -- Normal range between ( 8.4 and 10.1 ) eGFR : >60 mL/min/1.73m2 eGFR NonAfrican: 58 mL/min/1.73m2 Glucose Level: 111 mg/dL -- Normal range between ( 74 and 106 ) Magnesium Level: 1.9 mg/dL -- Normal range between ( 1.5 and 2.4 ) Blood Urea Nitrogen: 19 mg/dL -- Normal range between ( 7 and 22 ) Cardiac Specific Markers 11/04/2019 8:08 PM Troponin I Ultra: 0.299 ng/mL -- Normal range between ( 0.015 and 0.045 ) Coagulation 11/04/2019 8:08 PM INR: 1.0 -- Normal range between ( 0.9 and 1.1 ) PTT: 28.0 Second(s) -- Normal range between ( 24.0 and 34.0 ) PT: 11.0 Second(s) -- Normal range between ( 9.6 and 12.0 ) Computed Tomography 11/05/2019 12:[address] Head WO: CT Head WO Diagnostic Radiology 11/07/2019 5:28 PM CR Chest 1 Vw Portable: CR Chest 1 Vw Portable Echo 11/05/2019 11:43 AM EC Echo Complete: EC Echo Complete Patient Name:SHIRA GARZA HORACIO I have received and understand this information and was given the opportunity to ask questions. Patient/Commercial Green Retrofit Architect Name: Patient/Commercial Green Retrofit Architect Signature: Relationship to Patient: Clinician/Hospital Commercial Green Retrofit Architect Signature: Date: Electronically signed by Nikita, [facility] Conversion Civil Cadd Technician Richard at 01/26/2023 8:54 PM CDT documented in this encounter Plan of Treatment Not on file documented as of this encounter Visit Diagnoses Not on filedocumented in this encounter
--- OUTSIDE RECORDS SUMMARY | 2025-03-28 10:44 | XMS_ITS | Encounter Summary ---
Author Organization [employer] Address [address] [place] [address] Care Team Providers Care Jackhammer Splitter Operator Name Role Phone Unavailable Primary Care Provider Unavailabl e Encounter Details Date Type Department Care Team (Late st Contact Info) Description 11/07/2019 Transcribed Document [facility] [place] Family Medicine [address] [place] [address] ProviderPrasanth MD Replaced by [facility] [place] [address] Social History Tobacco Use Types Packs/Day Years Used Date Smoking Tobacco: Never Assessed Sex and Gender Information Value Date Recorded Sex Assigned at Not on file Legal Sex Male 6:49 PM CDT Gender Identity Not on file Sexual Orientation Not on file documented as of this encounter Miscellaneous Notes * Cerner Conversion Note - Historical ProviderMD - 11/07/2019 5:[address] JUDGE Chart Check - Review Order Profile Entered On: 11/07/2019 3:19 EST Performed On: 11/07/2019 5:00 EST by DESMOND CRUZ RN Chart Check Powerplans Initiated/Discontinued as Appropriate : Yes All Active Orders Reviewed : Yes DESMOND CRUZ RN - 11/07/2019 3:19 EST documented in this encounter Plan of Treatment Not on file documented as of this encounter Visit Diagnoses Not on filedocumented in this encounter
--- OUTSIDE RECORDS SUMMARY | 2025-03-28 10:44 | XMS_ITS | Encounter Summary ---
Author Organization [employer] Address [address] [place] [address] Care Team Providers Care Patient Support Associate Name Role Phone Unavailable Primary Care Provider Unavailabl e Encounter Details Date Type Department Care Team (Late st Contact Info) Description 12/03/[address] [facility] [place] Family Medicine [address] [place] [address] ProviderPrasanth [place] [address] Social History Tobacco Use Types Packs/Day Years Used Date Smoking Tobacco: Never Assessed Sex and Gender Information Value Date Recorded Sex Assigned at Not on file Legal Sex Male 6:49 PM CDT Gender Identity Not on file Sexual Orientation Not on file documented as of this encounter Miscellaneous Notes * Cerner Conversion Note - Historical ProviderMD - 12/03/2019 11:24 AM JIG OPERATOR Nursing Discharge Summary Entered On: 12/03/2019 11:24 EST Performed On: 12/03/2019 11:24 EST by AUSTIN FOFANA, leather production artisan Documentation Discharge Date/Time : 12/03/2019 12:26 EST AUSTIN FOFANA, RN - 12/03/2019 12:26 EST Patient Disposition, General : Discharge Discharge To : Home with ambulatory/outpatient follow-up Mode Of Departure, General Discharge : Private vehicle Accompanied By, Discharge : Spouse IV Discontinued : Yes Personal Belongings With Patient : Yes Prescriptions Given to Patient : No Discharge Instructions Reviewed With, Opportunity For Questions Given : Patient, Spouse Patient Education Completed : Yes Teaching Method : Demonstration, Explanation Teaching Evaluation : Returns demonstration, Verbalizes understanding AUSTIN FOFANA, RN - 12/03/2019 11:24 EST Electronically signed by Nikita [facility] Conversion Engine Maintenance Mechanic Cerner at 01/26/2023 9:08 PM CDT documented in this encounter Plan of Treatment Not on file documented as of this encounter Visit Diagnoses Not on filedocumented in this encounter
--- OUTSIDE RECORDS SUMMARY | 2025-03-28 10:44 | XMS_ITS | Encounter Summary ---
Author Organization [employer] Address [address] [place] [address] Care Team Providers Care Warehouse Processor Name Role Phone Unavailable Primary Care Provider Unavailabl e Encounter Details Date Type Department Care Team (Late st Contact Info) Description 12/03/2019 Transcribed Document [facility] [place] [address] [place] [address] ProviderPrasanth MD [facility] [place] [address] Social History Tobacco Use Types Packs/Day Years Used Date Smoking Tobacco: Never Assessed Sex and Gender Information Value Date Recorded Sex Assigned at Not on file Legal Sex Male 6:49 PM CDT Gender Identity Not on file Sexual Orientation Not on file documented as of this encounter Miscellaneous Notes * Cerner Conversion Note - Historical ProviderMD - 12/03/2019 11:15 AM BATCH PLANT OPERATOR Event Note Entered On: 12/03/2019 11:17 EST Performed On: 12/03/2019 11:15 EST by AUSTIN FOFANA, RN Event Note Event Date/Time : 12/03/2019 11:05 EST Description of Event : pt received back to unit from procedure lab, s/p VITOR, callbell within reach, family at bedside , VSS AUSTIN FOFANA, RN - 12/03/2019 11:15 EST documented in this encounter Plan of Treatment Not on file documented as of this encounter Visit Diagnoses Not on filedocumented in this encounter
--- OUTSIDE RECORDS SUMMARY | 2025-03-28 10:44 | XMS_ITS | Encounter Summary ---
Author Organization [employer] Address [address] [place] [address] Care Team Providers Care Bush And Vine Farmer Fruit Crops Name Role Phone Unavailable Primary Care Provider Unavailabl e Encounter Details Date Type Department Care Team (Late st Contact Info) Description 11/07/2019 Transcribed Document [facility] [place] [address] [place] [address] ProviderPrasanth MD [facility] [place] [address] Social History Tobacco Use Types Packs/Day Years Used Date Smoking Tobacco: Never Assessed Sex and Gender Information Value Date Recorded Sex Assigned at Not on file Legal Sex Male 6:49 PM CDT Gender Identity Not on file Sexual Orientation Not on file documented as of this encounter Miscellaneous Notes * Cerner Conversion Note - Historical ProviderMD - 11/07/2019 2:00 AM FLIGHT CONTROLS ENGINEER Briquette Maker Details Entered On: 11/07/2019 0:40 EST Performed On: 11/07/2019 2:00 EST by DESMOND CRUZ, RN Order [...] Line : No DESMOND CRUZ, RN - 11/07/2019 0:40 EST documented in this encounter Plan of Treatment Not on file documented as of this encounter Visit Diagnoses Not on filedocumented in this encounter
--- OUTSIDE RECORDS SUMMARY | 2025-03-28 10:45 | XMS_ITS | Encounter Summary ---
Author Organization [employer] Address [address] [place] [address] Care Team Providers Care Printed Circuit Photographer Name Role Phone Unavailable Primary Care Provider Unavailabl e Encounter Details Date Type Department Care Team (Late st Contact Info) Description 06/02/2021 Transcribed Document [facility] [place] [facility] [place] [address] ProviderPrasanth MD [facility] [place], [place] [address] Social History Tobacco Use Types Packs/Day Years Used Date Smoking Tobacco: Never Assessed Sex and Gender Information Value Date Recorded Sex Assigned at Not on file Legal Sex Male 6:49 PM CDT Gender Identity Not on file Sexual Orientation Not on file documented as of this encounter Miscellaneous Notes * Cerner Conversion Note - Historical ProviderMD - 06/02/2021 2:49 PM CDT SWEET POTATO DISINTEGRATOR Attempt to Treat Entered On: 06/02/2021 14:50 EDT Performed On: 06/02/2021 14:49 EDT by ADRIÁN LUO SLP Attempt to Treat Unable to Treat Due To : Patient Unavailable Inability to Treat Comment : Attempted to see pt for dysphagia evaluation, however he was off the floor. SWEET POTATO DISINTEGRATOR will f/u Tuesday. ADRIÁN LUO SLP - 06/02/2021 14:49 EDT Electronically signed by Nikita [facility] Conversion Manager Fiber Cerner at 01/26/2023 8:57 PM CDT documented in this encounter Plan of Treatment Not on file documented as of this encounter Visit Diagnoses Not on filedocumented in this encounter
--- OUTSIDE RECORDS SUMMARY | 2025-03-28 10:45 | XMS_ITS | Encounter Summary ---
Author Organization [employer] Address [address] [place] [address] Care Team Providers Care Uat Tester Name Role Phone Unavailable Primary Care Provider Unavailabl e Encounter Details Date Type Department Care Team (Late st Contact Info) Description 07/22/2020 Transcribed Document [facility] [place] [facility] [place] [address] ProviderPrasanth MD [facility] [place] [address] Social History Tobacco Use Types Packs/Day Years Used Date Smoking Tobacco: Never Assessed Sex and Gender Information Value Date Recorded Sex Assigned at Not on file Legal Sex Male 6:49 PM CDT Gender Identity Not on file Sexual Orientation Not on file documented as of this encounter Miscellaneous Notes * Cerner Conversion Note - Prasanth ProviderMD - 07/22/2020 9:18 AM CDT Pre Procedure Adult Entered On: 07/22/2020 9:24 EDT Performed On: 07/22/2020 9:18 EDT by SALLY BARNETT RN Height and Weight, Clinical Dosing Height Source : Measured Height Entry Format : [place] Height, Feet : 5 ft(Converted to: 152 cm, 60 Inch) Height, Inches : 10 Inch(Converted to: 0 ft 10 Inch, 25.40 cm) Clinical Height : 177.8 cm Weight Source : Standing scale Weight Entry Format : [place] Clinical Dosing Weight : 90.91 kg Weight, Pounds : 200 lb Body Surface Area (BSA) : 2.09 m2 Body Mass Index : 28.8 kg/m2 (HI) [place] Body Weight : 72 kg SALLY BARNETT RN - 07/22/2020 9:18 EDT Health Histories Smoking Status : Former smoker, quit more than 30 days ago Smokeless Tobacco Status : Never SALLY BARNETT RN - 07/22/2020 9:18 EDT Social History (As Of: 07/22/2020 09:24:16 EDT) Tobacco: Last Used: quit smoking 2007. (Last Updated: 12/03/2019 09:51:35 EST by AUSTIN FOFANA, RN) Former smoker, quit more than 30 days ago Smoking Status. Never Smokeless Tobacco Status. Last Used: 2007. was occasional smoker . maybe 1 pack each week. (Last Updated: 07/22/2020 09:20:31 EDT by SALLY BARNETT, RN) Alcohol: Alcohol Use History No. Alcohol Use Frequency Rarely. Alcohol Use Comment has beer when traveling to other countries. (Last Updated: 12/03/2019 09:52:04 EST by AUSTIN FOFANA, WILL) Substance Abuse: Drug Use Hx: No. [...] Negative Date of COVID-19 test known? : Yes Does patient have symptoms of COVID-19? : No COVID19 Screening : No Experiencing Infectious Disease Symptoms : No symptoms Physical contact outside [place] in the last 30 days : No Infectious Disease History : Chicken pox/Shingles, Influenza, Measles, Mumps, Pertussis (Whooping cough) Tuberculosis Symptoms : None SALLY BARNETT RN - 07/22/2020 9:18 EDT COVID19 PreProcedure Screening Is this an Emergent or Add on Procedure? : No Has patient been isolated since the test : Yes Exposed to COVID19 symptoms since test? : No SALLY BARNETT RN - 07/22/2020 9:18 EDT Anesthesia/Transfusion History Family History of Anesthesia Reaction : No prior transfusion(s) Transfusion History : Prior anesthesia without reaction Family History of Anesthesia Reaction : None SALLY BARNETT RN - 07/22/2020 9:18 EDT Functional Assessment Living Situation : Home Current Home Treatments : None SALLY BARNETT RN - 07/22/2020 9:18 EDT [place] Suicide Severity Rating Scale (C-SSRS) CSSRS Past Month Wish to be : No CSSRS Past Month Suicidal Thoughts : No CSSRS Lifetime Suicide Behavior : No Suicide Severity Rating Score : 0 Suicide Severity Rating : No Additional Care Required at this time SALLY BARNETT RN - 07/22/2020 9:18 EDT Psychosocial History Chronic/Terminal Illness w/Freq Visits : No Do You Have a History of the Following? : Patient denies history Currently in Unsafe Situation : SALLY Lorenzo RN - 07/22/2020 9:18 EDT Advance Directive Patient has Advance Directive *Q : Yes, Advance Directive on file Advance Directive Type : Living will Copy Advance Directive Verified/on Chart : SALLY Lorenzo RN - 07/22/2020 9:18 EDT Teaching/Learning Assessment Barriers To Learning : None evident Individuals Taught : Patient Readiness to Learn : Cooperative Readiness to Learn : Explanation Learning Style Preferences Family : Verbal explanation SALLY BARNETT RN - 07/22/2020 9:18 EDT Education Topics, Periop Preadmission Perioperative Education Grid Postoperative Care Preparations : Verbalizes understanding Preprocedure Preparations : Verbalizes understanding SALLY BARNETT RN - 07/22/2020 9:18 EDT General Info Arrived From : Home Mode of Arrival on Unit : Ambulatory Patient Arrival Date/Time : 07/22/2020 9:00 EDT Legal Guardian : Spouse Legal Guardian : No Support Person/Patient Lead Housekeeper : Yes Support Person/Pt Rep Name : Rosa Elena Cormier- spouse Support Person/Pt Rep Contact Information : [phone] home Want Family/Rep/Phys Notified of Admit : No Emergency Contact #1 : Rosa Elena Emergency Contact #1 Emergency Contact #1 Relationship : spouse Emergency Contact #2 : none Emergency Contact #2 Phone Number : none Emergency Contact #2 Relationship : none Primary Language : Cymraes Preferred Communication Mode : Verbal Communication Barrier : None Head Waiter/Waitress Needed : SALLY Lorenzo RN - 07/22/2020 9:18 EDT Vital Measurements Temperature, Fahrenheit : 97.4 Deg F Clinical Temperature, C : 36.3 Deg C Peripheral Pulse Rate : 59 bpm (LOW) Systolic Blood Pressure : 143 mmHg (HI) Diastolic Blood Pressure : 71 mmHg Oxygen Saturation : 97 % SALLY BARNETT RN - 07/22/2020 9:18 EDT Sleep Apnea Risk Assmt Hx of Obstructive Sleep Apnea Diagnosis : No Snore Loudly : No Tired, Fatigued, or Sleepy During Day : No Observed Stopping Breathing During Sleep : No Have/Are Being Treated for Hypertension : Yes BMI Greater Than 35 kg/m2 : Yes Age over 50 Years Old : Yes Neck Circumference Greater Than 40 cm : Yes Gender Male : Yes STOP-BANG Sleep Apnea Risk Level Score : 5 SALLY BARNETT RN - 07/22/2020 9:18 EDT Vishnu Scale Visnhu Sensory Perception : No impairment Vishnu Moisture : Rarely moist Vishnu Activity : Walks frequently Vishnu Mobility : No limitation Vishnu Nutrition : Excellent Vishnu Friction and Shear : No apparent problem Vishnu Score : 23 SALLY BARNETT RN - 07/22/2020 9:18 EDT Pain Assessment Pain Assessment : Initial assessment Pain Scale Used : 0-10 Scale SALLY BARNETT RN - 07/22/2020 9:18 EDT Fall Risk Scales ABCs Fall Injury Risk Identification : None DEVINE Hx Falls Immediate/Within 3 Months : No Devine Secondary Diagnosis : Yes DEVINE Use of Ambulatory Aid : None DEVINE IV Therapy or IV Access : Yes Devine Gait/Transferring : Normal, bedrest, immobile Devine Mental Status : Oriented to own ability Devine Fall Risk Score : 35 DEVINE Fall Scale Risk Level : 25-45 Medium Risk Bend Fall Interventions : Adequate lighting, Assistive devices within reach, Bed in low position, Non-slip footwear, Wheels locked SALLY BARNETT RN - 07/22/2020 9:18 EDT Valuables and Belongings Valuables and Belongings : Clothing Clothing : Common streetwear Clothing Disposition : Bedside SALLY BARNETT RN - 07/22/2020 9:18 EDT Pain Scale Intensity : 0 SALLY BARNETT RN - 07/22/2020 9:18 EDT Image 4 - Images currently included in the form version of this document have not been included in the text rendition version of the form. documented in this encounter Plan of Treatment Not on file documented as of this encounter Visit Diagnoses Not on filedocumented in this encounter
--- OUTSIDE RECORDS SUMMARY | 2025-03-28 10:45 | XMS_ITS | Encounter Summary ---
Author Organization [employer] Address [address] [place] [address] Care Team Providers Care Hardware Assembler Name Role Phone Unavailable Primary Care Provider Unavailabl e Encounter Details Date Type Department Care Team (Late st Contact Info) Description 07/22/2020 Transcribed Document [facility] [place] [address] [place] [address] ProviderPrasanth MD [address] [place] [address] Social History Tobacco Use Types Packs/Day Years Used Date Smoking Tobacco: Never Assessed Sex and Gender Information Value Date Recorded Sex Assigned at Not on file Legal Sex Male 6:49 PM CDT Gender Identity Not on file Sexual Orientation Not on file documented as of this encounter Miscellaneous Notes * Cerner Conversion Note - Historical ProviderMD - 07/22/2020 11:08 AM CDT Nursing Discharge Summary Entered On: 07/22/2020 11:08 EDT Performed On: 07/22/2020 11:08 EDT by SALLY BARNETT boat officer Documentation Discharge Date/Time : 07/22/2020 12:26 EDT SALLY BARNETT RN - 07/22/2020 12:26 EDT Patient Disposition, General : Discharge Discharge To : Home with ambulatory/outpatient follow-up Mode Of Departure, General Discharge : Wheelchair Accompanied By, Discharge : Spouse IV Discontinued : Yes Personal Belongings With Patient : Yes Discharge Instructions Reviewed With, Opportunity For Questions Given : Patient Patient Education Completed : Yes Teaching Method : Explanation Teaching Evaluation : Verbalizes understanding SALLY BARNETT RN - 07/22/2020 11:08 EDT Electronically signed by Carla Shelton Conversion Supervisor Industrial Garment Cerner at 01/26/2023 9:10 PM CDT documented in this encounter Plan of Treatment Not on file documented as of this encounter Visit Diagnoses Not on filedocumented in this encounter
--- OUTSIDE RECORDS SUMMARY | 2025-03-28 10:45 | XMS_ITS | Encounter Summary ---
Author Organization [employer] Address [address] [place] [address] Care Team Providers Care Forensic Materials Engineer Name Role Phone Unavailable Primary Care Provider Unavailabl e Encounter Details Date Type Department Care Team (Late st Contact Info) Description 08/04/2020 Transcribed Document [facility] [place] Family Medicine [address] [place] [address] ProviderPrasanth MD [facility] [place] [address] Social History Tobacco Use Types Packs/Day Years Used Date Smoking Tobacco: Never Assessed Sex and Gender Information Value Date Recorded Sex Assigned at Not on file Legal Sex Male 6:49 PM CDT Gender Identity Not on file Sexual Orientation Not on file documented as of this encounter Miscellaneous Notes * Cerner Conversion Note - Historical ProviderMD - 08/04/2020 7:59 PM CDT Event Note Entered On: 08/04/2020 20:01 EDT Performed On: 08/04/2020 19:59 EDT by BRANDON ROE RN Event Note Event Date/Time : 08/04/2020 19:50 EDT Description of Event : Report to Tish SOLIS on 4 IC. Transferred to [facility] via wheelchair with all belongngs. BRANDON ROE RN - 08/04/2020 19:59 EDT documented in this encounter Plan of Treatment Not on file documented as of this encounter Visit Diagnoses Not on filedocumented in this encounter
--- OUTSIDE RECORDS SUMMARY | 2025-03-28 10:45 | XMS_ITS | Encounter Summary ---
Author Organization [employer] Address [address] [place] [address] Care Team Providers Care Radio Repairer Name Role Phone Unavailable Primary Care Provider Unavailabl e Encounter Details Date Type Department Care Team (Late st Contact Info) Description 08/04/2020 Transcribed Document [facility] [place] [facility] [place] [address] ProviderPrasanth MD [facility] [place] [address] Social History Tobacco Use Types Packs/Day Years Used Date Smoking Tobacco: Never Assessed Sex and Gender Information Value Date Recorded Sex Assigned at Not on file Legal Sex Male 6:49 PM CDT Gender Identity Not on file Sexual Orientation Not on file documented as of this encounter Miscellaneous Notes * Cerner Conversion Note - Prasanth ProviderMD - 08/04/2020 3:48 PM CDT Admission History, Adult Entered On: 08/04/2020 20:33 EDT Performed On: 08/04/2020 15:48 EDT by Tish Calvillo Rn Advance Directive Patient has Advance Directive *Q : Yes, Advance Directive on file Advance Directive Type : Living will Copy Advance Directive Verified/on Chart : No Tish Calvillo Rn - 08/04/2020 20:32 EDT Anesthesia/Transfusion History Family History of Anesthesia Reaction : No prior transfusion(s) Transfusion History : Prior anesthesia without reaction Family History of Anesthesia Reaction : None Tish Calivllo Rn - 08/04/2020 20:32 EDT Functional Assessment Living Situation : Home Patient Lives With : Spouse Persons Assisting Patient at Home : Spouse Current Daily Living Assistance : None Mobility Assistance Prior to Admission : Independent DEVINE Hx Falls Immediate/Within 3 Months : No Current Home Treatments : None Tish Calvillo Rn - 08/04/2020 20:32 EDT General Info Arrived From : Acute Care Facility Mode of Arrival on Unit : Stretcher Legal Guardian : Other: [facility] Legal Guardian : No Support Person/Patient Centrifuge Separator Tender : Yes Support Person/Pt Rep Name : Rosa Elena Cormier- spouse Support Person/Pt Rep Contact Information : [phone] home Want Family/Rep/Phys Notified of Admit : No Emergency Contact #1 : Rosa Elena Emergency Contact #1 Emergency Contact #1 Relationship : spouse Emergency Contact #2 : n/a Emergency Contact #2 Phone Number : n/a Emergency Contact #2 Relationship : n/a Chief Complaint : Tele hold Information Obtained From : Patient Primary Language : Greek Preferred Communication Mode : Verbal Communication Barrier : None Solar Installer Needed : No Tish Calvillo Rn - 08/04/2020 20:32 EDT Fall Risk Scales ABCs Fall Injury Risk Identification : Coagulation ABC Fall Injury Risk : Moderate to high injury risk Injury Moderate to High Risk Interventions : Specialty low bed DEVINE Hx Falls Immediate/Within 3 Months : No Devine Secondary Diagnosis : Yes DEVINE Use of Ambulatory Aid : Bed rest/Nurse assist DEVINE IV Therapy or IV Access : Yes Devine Gait/Transferring : Normal, bedrest, immobile Devine Mental Status : Oriented to own ability Devine Fall Risk Score : 35 DEVINE Fall Scale Risk Level : 25-45 Medium Risk [place] Fall Interventions : Adequate lighting Barriers to Learning : None evident Learning Style Preferences Family : None Learning Style Preferences Patient : None Fall Risk Scale Calc Temp : 0 Tish Calvillo Rn - 08/04/2020 20:32 EDT Health Histories Smoking Status : Former smoker, quit more than 30 days ago Smokeless Tobacco Status : Never Tish Calvillo Rn - 08/04/2020 20:32 EDT Social History (As Of: 08/04/2020 20:33:20 EDT) Tobacco: Last Used: quit smoking 2007. (Last Updated: 12/03/2019 09:51:35 EST by AUSTIN FOFANA, RN) Former smoker, quit more than 30 days ago Smoking Status. Never Smokeless Tobacco Status. Last Used: 2007. was occasional smoker . maybe 1 pack each week. (Last Updated: 07/22/2020 09:20:31 EDT by SALLY BARNETT, RN) Former smoker, quit more than 30 [...] Source : Stated Height Entry Format : [place] Height, Feet : 5 ft(Converted to: 152 cm, 60 Inch) Height, Inches : 9 Inch(Converted to: 0 ft 9 Inch, 22.86 cm) Clinical Height : 175.26 cm Weight Source : Standing scale Weight Entry Format : [place] Clinical Dosing Weight : 88.64 kg Weight, Pounds : 195 lb Body Surface Area (BSA) : 2.05 m2 Body Mass Index : 28.9 kg/m2 (HI) Ruth Body Weight : 70 kg Tish Calvillo Rn - 08/04/2020 20:32 EDT Infectious Disease History Has the patient [...] Chicken pox/Shingles, Mumps Tuberculosis Symptoms : None Tish Calvillo Rn - 08/04/2020 20:32 EDT Influenza Vaccine Asmt, Adult Previous Vaccines from Immunization Schedule : Previous Vaccines and Immunizations tetanus/diphtheria/pertussis, acel(Tdap): 0.5 mL (11/04/19 21:11:00) Influenza Immunization, Current Season : Yes Tish Calvillo Rn - 08/04/2020 20:32 EDT Pneumococcal Vaccine Previous Vaccines from Immunization Schedule : Previous Vaccines and Immunizations tetanus/diphtheria/pertussis, acel(Tdap): 0.5 mL (11/04/19 21:11:00) Pneumonia Immunization Received : Yes Pneumonia Immunization Date : 07/24/2018 EDT Tish Calvillo Rn - 08/04/2020 20:32 EDT Nutrition History Adaptive Feeding Equipment : Regular Oral Medication Administration : By mouth Eating Poorly Due to Decreased Appetite : No Unplanned Weight Loss in Past 3-6 Months : No Malnutrition Screening Tool Total(mal) : 0 Malnutrition Screening Tool Risk Level : Patient not at risk Tish Calvillo Rn - 08/04/2020 20:32 EDT [place] Suicide Severity Rating Scale (C-SSRS) CSSRS Past Month Wish to be : No CSSRS Past Month Suicidal Thoughts : No CSSRS Lifetime Suicide Behavior : No Suicide Severity Rating Score : 0 Suicide Severity Rating : No Additional Care Required at this time Tish Calvillo Rn - 08/04/2020 20:32 EDT Psychosocial History Does Someone Depend on You for Care? : No Chronic/Terminal Illness w/Freq Visits : No Do You Have a History of the Following? : Patient denies history Currently in Unsafe Situation : No Restraining Order Against Another Person : No Do You Have a Support System? : Yes Hospital/DC Financial Concerns : No Stressors Affecting Hospitalization/DC : No Tish Calvillo Rn - 08/04/2020 20:32 EDT Sleep Apnea Risk Assmt Hx of [...] STOP-BANG Sleep Apnea Risk Level Score : 3 Tish Calvillo Rn - 08/04/2020 20:32 EDT Valuables and Belongings Valuables and Belongings : Clothing Clothing : Common streetwear Clothing Disposition : Bedside Belongings Disposition Comment : Refuses safe. Tish Calvillo Rn - 08/04/2020 20:32 EDT Electronically signed by Filiberto Sheltno Conversion Home Appliance Technician Cerner at 01/26/2023 8:51 PM CDT documented in this encounter Plan of Treatment Not on file documented as of this encounter Visit Diagnoses Not on filedocumented in this encounter
--- OUTSIDE RECORDS SUMMARY | 2025-03-28 10:45 | XMS_ITS | Encounter Summary ---
Author Organization [employer] Address [address] [place] [address] Care Team Providers Care Conductor/Brakeman Name Role Phone Unavailable Primary Care Provider Unavailabl e Encounter Details Date Type Department Care Team (Late st Contact Info) Description 06/02/2021 Transcribed Document [facility] [place] [facility] [place] [address] ProviderPrasanth MD [address] [place] [id number] Social History Tobacco Use Types Packs/Day Years Used Date Smoking Tobacco: Never Assessed Sex and Gender Information Value Date Recorded Sex Assigned at Not on file Legal Sex Male 6:49 PM CDT Gender Identity Not on file Sexual Orientation Not on file documented as of this encounter Miscellaneous Notes * Cerner Conversion Note - Historical ProviderMD - 06/02/2021 12:40 PM CDT Amanda Rubin Bedside Swallowing Screen Entered On: 06/02/2021 15:29 EDT Performed On: 06/02/2021 12:40 EDT by Chang Medrano, Mammography Technologist-Student Nurse Amanda Rubin Bedside Swallowing 2 Exhibits Slurred or Garbled Speech : No 3 Trouble Speaking/Understanding Words : No 1 Alert (Follows Commands) : Yes 4 Exhibits Drooling : No 5 Wet-sounding Voice : No 6 Coughs After 1 tsp Water : No 7 Voice Sounds Gurgly After 1 tsp Water : No 8 Dribbles From Mouth After 1 tsp Water : No 9 Coughs After 60 mL of Water : No 10 Voice Gurgly After 60 mL Water : No 11 Dribbles from Mouth After 60 mL Water : No Chang Medrano, Mammography Technologist-Student Nurse - 06/02/2021 15:29 EDT Electronically signed by Nikita [facility] Conversion Prepared Foods Production Team Member Cerner at 01/26/2023 8:59 PM CDT documented in this encounter Plan of Treatment Not on file documented as of this encounter Visit Diagnoses Not on filedocumented in this encounter
--- OUTSIDE RECORDS SUMMARY | 2025-03-28 10:45 | XMS_ITS | Encounter Summary ---
Author Organization [employer] Address [address] [place] [address] Care Team Providers Care Corporate Security Officer Name Role Phone Unavailable Primary Care Provider Unavailabl e Encounter Details Date Type Department Care Team (Late st Contact Info) Description 06/02/2021 Transcribed Document [facility] [place] [address] ProviderPrasanth MD [address] [place] [address] Social History Tobacco Use Types Packs/Day Years Used Date Smoking Tobacco: Never Assessed Sex and Gender Information Value Date Recorded Sex Assigned at Not on file Legal Sex Male 6:49 PM CDT Gender Identity Not on file Sexual Orientation Not on file documented as of this encounter Miscellaneous Notes * Cerner Conversion Note - Prasanth ProviderMD - 06/02/2021 3:13 PM CDT Swallow Evaluation Entered On: 06/02/2021 15:20 EDT Performed On: 06/02/2021 15:14 EDT by ADRIÁN LUO, SIGIFREDO General Information Visit Type, COMPOSITE LAMINATOR : Initial evaluation Patient Orders : Speech Language Pathology Swallow Evaluation and Treatment -111 Start: 06/02/21 15:13:00 EDT, Routine, For Swallow Eval and Treat - CJ AVITIA MD-INT Speech Language Pathology Evaluation and Treatment - Start: 06/02/21 12:40:00 EDT, Routine, For Speech Language Cognitive Eval and Treat -111 CJ AVITIA MD-INT Admission Date : Admission Date/Time: 06/02/21 12:02:00 Medical Chart Reviewed, COMPOSITE LAMINATOR : Yes Personal Devices : Personal Devices No Devices Recorded Assistive Devices : Assistive Devices No Devices Recorded Active Diagnoses : 06/02/2021 12:00 Chest pain 06/02/2021 12:00 Chest pain, unspecified 06/02/2021 12:00 Non-ST elevation (NSTEMI) myocardial infarction 06/02/2021 12:00 Other specified abnormalities of plasma proteins 06/02/2021 12:00 Transient cerebral ischemic attack, unspecified 06/02/2021 12:00 Weakness Therapy Diagnosis, COMPOSITE LAMINATOR : Pt presents without overt oropharyngeal patterns. Recommendations: 1. Regular/thin 2. Medication per RN 3. NO further evaluation/tx for oropharyngeal dysphagia 4. COMPOSITE LAMINATOR will f/u with a definitive neuro dx warranting further communication evaluation Previous Speech/Language Evaluations : No previous ST in EMR Previous Swallow Precautions : No previous ST in EMR Diet/Intake Prior to Current Admission : Regular/thin Diet/Intake During Current Admission : NPO Intubation Comment, COMPOSITE LAMINATOR : n/a Vital Signs RTF : Vitals Temp BP Pulse RR SpO2 FIO2 Date Wt(kg) Wt(lb) 06/02 14:00 ---- 169/91 --- 19 94 --- 06/02 90.2 198 06/02 13:30 ---- 151/85 --- 19 96 --- 06/02 13:00 ---- 160/81 --- 27 96 --- 06/02 12:30 ---- 167/88 --- 19 95 --- 06/02 12:00 ---- 127/76 --- 22 97 --- 24 Hr Tmax: No Data Available 36 Hr Tmax: No Data Available Vital Signs are the last 5 in the past 48 hours. Weights display the last 5 within 7 days. Initial Wt: 06/02 90.2 kg 198 lb Respiratory Assessment Comment : Room air ADRIÁN LUO SLP - 06/02/2021 15:14 EDT General Status Patient Received Status, COMPOSITE LAMINATOR : Sitting edge of bed Patient Left Status, COMPOSITE LAMINATOR : Sitting edge of bed ADRIÁN LUO SLP - 06/02/2021 15:14 EDT Pain Assessment Pain Scaled Used : 0-10 Pain scale Pain Score Pre-Intervention : 0 ADRIÁN LUO SLP - 06/02/2021 15:14 EDT Image 1 - Images currently included in the form version of this document have not been included in the text rendition version of the form. Oral Mechanism Dysarthria : No Resonance Types : Appropriate Oral Mechanism for Daily Living : Intact COMPOSITE LAMINATOR Cough : Strong Facial Appearance: : Symmetrical Labial Appearance : Symmetrical Labial Function : All function intact Dental/Orthodontia : Teeth, own Lingual Appearance : Symmetrical Lingual Function : All function intact ADRIÁN LUO SLP - 06/02/2021 15:14 EDT Bedside Swallow Swallow Outcome BS Swallow : Intact Head Control BS Swallow : Neutral head position Presentation Style BS Swallow : Self Swallow Position BS Swallow : Upright 90 degrees Trunk Control BS Swallow : Upright centered position Consistencies Trialed BS Swallow : Thin by straw, Pudding, Regular solids ADRIÁN LUO SLP - 06/02/2021 15:14 EDT Swallow Impressions Impressions, BS Swallow : No evidence of dysphagia present Swallowing Outcome Measures : Functional Oral Intake Scale (FOIS) Functional Oral Intake Scale (FOIS) : Level VII ADRIÁN LUO SLP - 06/02/2021 15:14 EDT Bedside Swallow Overall Impressions : Pt admitted w/ c/o chest pain, brief expressive aphasia, and bilateral lower leg weakness. Per chart review, all symptoms have resolved. Neurology consult is currently pending. PMHx is signficant for Afib, A flutter, CAD, Aortic valve replacement, CABG, OMAHA, HLD, HTN and subdural hematoma. COMPOSITE LAMINATOR consulted for bedside dysphagia evaluation. Today, pt is alert and oriented x4. No overt communication deficits appreciated. Oral skills appear functional for swallowing. No overt pharyngeal patterns appreciated with any trialed consistency. Pt appears safe for a regular diet and thin liquids. Medication per RN. No further evaluation/tx for oropharyngeal dysphagia is indicated at this time. COMPOSITE LAMINATOR will f/u with a definitive neuro dx warranting further communication evaluation. ADRIÁN LUO SLP - 06/02/2021 15:20 EDT Swallow Recommendations Recommended Diet Type, SwRec : Regular Recommended Liquid Diet, SwRec : Thin Feeding Presentation Style, SwRec : No restrictions Swallow Position, SwRec : Upright 90 degrees Comp Strategies/Sw Precautions, SwRec : Upright for meals Supervision Level w/Meals, SwRec : Independent, complete Recommended Med Present, SwRec : As per nursing ADRIÁN LUO SLP - 06/02/2021 15:14 EDT Therapy Indication Assessment COMPOSITE LAMINATOR Indicated : No COMPOSITE LAMINATOR Not Indicated : At prior level of function COMPOSITE LAMINATOR Interdisciplinary Consultation Needs : No COMPOSITE LAMINATOR Rehabilitation Potential : At prior level of function ADRIÁN LUO SLP - 06/02/2021 15:14 EDT Education Barriers To Learning : None evident Individuals Taught : Patient Readiness to Learn : Cooperative Readiness to Learn : Explanation ADRIÁN LUO SLP - 06/02/2021 15:14 EDT COMPOSITE LAMINATOR Education Assessment Grid 1 Diet Recommendation : Verbalizes understanding Evaluation Results : Verbalizes understanding ADRIÁN LUO SLP - 06/02/2021 15:[address] [facility] Charges Evaluation Swallowing Function : 1 ADRIÁN LUO SLP - 06/02/2021 15:14 EDT Anticipated Discharge Needs, COMPOSITE LAMINATOR Anticipated Discharge to : Home, independently Recommend Continued Therapy at Discharge : No ADRIÁN LUO SLP - 06/02/2021 15:14 EDT Electronically signed by Nikita [facility] Conversion Access Services Assistant Cerner at 01/26/2023 8:54 PM CDT documented in this encounter Plan of Treatment Not on file documented as of this encounter Visit Diagnoses Not on filedocumented in this encounter
--- OUTSIDE RECORDS SUMMARY | 2025-03-28 10:45 | XMS_ITS | Encounter Summary ---
Author Organization [employer] Address [address] [place] [address] Care Team Providers Care Automobile Upholsterer Name Role Phone Unavailable Primary Care Provider Unavailabl e Encounter Details Date Type Department Care Team (Late st Contact Info) Description 06/02/2021 Transcribed Document [facility] [place] [facility] [place] [address] ProviderPrasanth MD [address] [place] [address] Social History Tobacco Use Types Packs/Day Years Used Date Smoking Tobacco: Never Assessed Sex and Gender Information Value Date Recorded Sex Assigned at Not on file Legal Sex Male 6:49 PM CDT Gender Identity Not on file Sexual Orientation Not on file documented as of this encounter Miscellaneous Notes * Cerner Conversion Note - Prasanth ProviderMD - 06/02/2021 9:50 AM CDT ED Assessment Entered On: 06/02/2021 11:34 EDT Performed On: 06/02/2021 11:32 EDT by SULAIMAN FAULKNER RN ED Quick Look Assessment Level of Consciousness : Alert, Awake Affect/Behavior : Appropriate, Calm, Cooperative Orientation : Oriented x 4 Skin Temperature : Warm Skin Description : Dry SULAIMAN FAULKNER RN - 06/02/2021 11:32 EDT ED General-Functional Assess Preferred Communication Mode : Verbal Communication Barrier : None Primary Language : [place] Any Spiritual/Cultural Needs or Requests : No Currently in Unsafe Situation : No SULAIMAN FAULKNER RN - 06/02/2021 11:32 EDT Social Habits Smoking Status : Former smoker, quit more than 30 days ago Smokeless Tobacco Status : Never Desires Tobacco Cessation Calc : 0 SULAIMAN FAULKNER RN - 06/02/2021 11:32 EDT Social History (As Of: 06/02/2021 11:34:46 EDT) Tobacco: Last Used: quit smoking 2007. [...] Updated: 08/04/2020 12:08:47 EDT by WALTER POWELL, RN) Alcohol: Alcohol Use History No. Alcohol [...] (Last Updated: 10/26/2019 09:41:52 EST by HILDA ANTHONY, WILL) Employment/School: Employed (Last Updated: 10/26/2019 09:41:57 EST by HILDA ANTHONY RN) Cardiovascular ASMT, ED Cardiovascular Symptoms : None Heart Rhythm : Regular Nail Bed Color : [place] Chest Pain : No Capillary Refill, Left Hand : Less than/Equal to (</=) 2 seconds Capillary Refill, Right Hand : Less than/Equal to (</=) 2 seconds Clubbing Present : No SULAIMAN FAULKNER RN - 06/02/2021 11:32 EDT Respiratory Respiratory Assessment WDL : WDSULAIMAN WHITE RN - 06/02/2021 11:32 EDT Electronically signed by Nikita [facility] Conversion Observer [employer]ing Cerner at 01/26/2023 9:07 PM CDT documented in this encounter Plan of Treatment Not on file documented as of this encounter Visit Diagnoses Not on filedocumented in this encounter
--- OUTSIDE RECORDS SUMMARY | 2025-03-28 10:45 | XMS_ITS | Encounter Summary ---
Author Organization [employer] Address [address] [place] [address] Care Team Providers Care Grievance Coordinator Name Role Phone Unavailable Primary Care Provider Unavailabl e Encounter Details Date Type Department Care Team (Late st Contact Info) Description 06/02/2021 Transcribed Document [facility] Family Medicine [facility] [place] [address] ProviderPrasanth MD [address] [place] [id number] Social History Tobacco Use Types Packs/Day Years Used Date Smoking Tobacco: Never Assessed Sex and Gender Information Value Date Recorded Sex Assigned at Not on file Legal Sex Male 6:49 PM CDT Gender Identity Not on file Sexual Orientation Not on file documented as of this encounter Miscellaneous Notes * Cerner Conversion Note - Historical ProviderMD - 06/02/2021 2:23 PM CDT ED Event Note Entered On: 06/02/2021 14:25 EDT Performed On: 06/02/2021 14:23 EDT by SULAIMAN FAULKNER RN ED Event Note ED Event Date/Time : 06/02/2021 14:24 EDT ED Event Location : Assigned room ED Description of Event : Report called to Vandana Perez RN on [address] and pt. to room 321. He has had no cp x midnight last night. SULAIMAN FAULKNER RN - 06/02/2021 14:23 EDT documented in this encounter Plan of Treatment Not on file documented as of this encounter Visit Diagnoses Not on filedocumented in this encounter
--- OUTSIDE RECORDS SUMMARY | 2025-03-28 10:45 | XMS_ITS | Encounter Summary ---
Author Organization [employer] Address [address] [place] [address] Care Team Providers Care Library Services Dean Name Role Phone Unavailable Primary Care Provider Unavailabl e Encounter Details Date Type Department Care Team (Late st Contact Info) Description 06/02/2021 Transcribed Document [facility] Family Medicine [address] [place] [address] ProviderPrasanth MD [facility] [place], [place] [id number] Social History Tobacco Use Types Packs/Day Years Used Date Smoking Tobacco: Never Assessed Sex and Gender Information Value Date Recorded Sex Assigned at Not on file Legal Sex Male 6:49 PM CDT Gender Identity Not on file Sexual Orientation Not on file documented as of this encounter Miscellaneous Notes * Cerner Conversion Note - Historical ProviderMD - 06/02/2021 9:50 AM CDT [place] Suicide Severity Rating Scale (C-SSRS) Entered On: 06/02/2021 11:32 EDT Performed On: 06/02/2021 11:32 EDT by SULAIMAN FAULKNER RN [place] Suicide Severity Rating Scale (C-SSRS) CSSRS Past Month Wish to be : No CSSRS Past Month Suicidal Thoughts : No CSSRS Lifetime Suicide Behavior : No Suicide Severity Rating Score : 0 Suicide Severity Rating : No Additional Care Required at this time SULAIMAN FAULKNER RN - 06/02/2021 11:32 EDT documented in this encounter Plan of Treatment Not on file documented as of this encounter Visit Diagnoses Not on filedocumented in this encounter
--- OUTSIDE RECORDS SUMMARY | 2025-03-28 10:45 | XMS_ITS | Patient Health Record ---
Author Organization [facility] Address [address] [facility] [address] [facility] [address] [place] [id number] Care Team Providers Care Job Interviewer Name Role Phone Alexei Almodovar Primary Care Provider ALEXEI ALMODOVAR Unavailable Unavailable Romana Thompson Unavailable [phone] Allergies Allergen (clinical drug ingredient) Drug/Non Drug [...] - 38 plat 140 100 - 400 Urinalysis - Inhouse Reviewed date:08/23/2024 11:17:53 AM Interpretation: Performing Lab: Notes/Report: Color/Clarity dark yellow/clear Leuk 1+ Nitrite Pos Urobili 3.2 Protein Neg pH 5.5 Blood 2+ Sp. Gr. 1.020 Ketone Neg Bili Neg Gluc Neg TEN-UTI panel Reviewed date:08/29/2024 01:20:38 PM Interpretation:sensitive Performing Lab: Notes/Report: sensitive TEN-UTI panel Reviewed date:08/29/2024 01:20:38 PM Interpretation:sensitive Performing Lab: Notes/Report: sensitive Reason For Referral No Information Medications Medication SIG (Take, Route, Frequency, Duration) Notes Start Date End Date Status Warfarin Sodium 5 MG 1 tab(s) orally onc e a day Active Atorvastatin Calcium 20 MG 1 tab(s) oral ly once a day Active Aspirin 81 MG 1 tab(s) orally once a day for 30 day(s) Active Colestipol HCl 1 GM 1 tablet Orally Once a day for 30 day(s) 08/23/2024 Active Metoprolol Succinate ER 25 MG 1 tab(s) orally once a day Active Lisinopril 5 MG 1 tab(s) orally once a day Active Immunizations Vaccine Route Administration Date Status Comme nts COVID 19 Moderna Unknown 11/19/2020 Administered COVID 19 Moderna Unknown 12/17/2020 Administered COVID 19 Moderna Unknown 08/05/2021 Administered Fluzone High Dose (65yr and older) Unknown 07/02/2020 Administered Fluzone High Dose (65yr and older) Unknown 07/22/2021 Administered Fluzone High Dose (65yr and older) IM Intramuscular 2022 Administered Fluzone High Dose (65yr and older) Unknown 2022 Administered Fluzone High Dose (65yr and older) IM Intramuscular 11/14/2024 Administered Prevnar (PCV13) Unknown 07/26/2016 Administered Shingrix Unknown 05/08/2020 Administered Shingrix Unknown 08/11/2020 Administered Tetanus Tdap-Adacel (over 7yrs) Unknown 11/04/2019 Administered xFluzone (6mos and older)-trivalent Unknown 09/04/2013 Administered xFluzone High Dose-private (65yr&older) Unknown 07/26/2016 Administered xFluzone High Dose-private (65yr&older) Unknown 07/31/2018 Administered xFluzone High Dose-private (65yr&older) Unknown 08/03/2019 Administered Problems Problem Type SNOMED Code ICD Code Onset Dates Problem Status W/U Status Risk Notes Problem 113618483 Coronary artery disease involving poarch coronary artery of poarch heart without angina pectoris (I25.10) Active confirmed Problem 29800921 Iron deficiency anemia, unspecified iron deficiency anemia type (D50.9) Active confirmed Problem 343036631 Pure hypercholesterolemia (E78.00) Active confirmed Problem Aortic valve rep laced (Z95.2) Active confirmed Problem 82907378 Primary hyperten twyla (I10) Active confirmed Problem 760281337 Stage 3a chronic kidney disease (CKD) (N18.31) Active confirmed Vital Signs Heart Rate 60 /min 12/13/2024 Blood pressure diastolic 60 mm Hg 12/13/2024 Height 69 in 12/13/2024 Blood pressure systolic 120 mm Hg 12/13/2024 Weight 202.2 lbs 12/13/2024 BMI 29.86 kg/m2 12/13/2024 Encounters Encounter Location Date Provider Diagnosis [facility] [address] [facility] [address] [place], [place] [id number] 08/23/2024 Alexei Lansford Acute UTI N39.0 and Intermittent diarrhea R19.7 [facility] [address] [facility] 36 [facility] [address] [place], [place] [id number] 11/14/2024 Alexei Lansford Encounter for immunization Z23 [facility] [address] [facility] [address] [place], [place] [id number] 12/13/2024 R Newton Thompson Aortic valve replace d Z95.2 ; Bleeding R58 and Supratherapeutic INR R79.1 Assessments Encounter Date Diagnosis (ICD Code) Assessment Notes Treatment Notes Treatment Clinical Notes Section Notes 08/23/2024 Acute UTI (ICD-10 - N39.0) 08/23/2024 Intermittent diarrhea (ICD-10 - R19.7) 11/14/2024 Encounter for immunization (ICD-10 - Z23) 12/13/2024 Bleeding (ICD-10 - R58) 12/13/2024 Aortic valve replaced (ICD-10 - Z95.2) 12/13/2024 Supratherapeutic INR (ICD-10 - R79.1) hold coumadin for 2 days then resume same dose. Keep f/u with Coumadin Clinic in 10 days Plan Of Treatment Pending Test Test Name Order Date H-Microalbumine/Creatinine 05/10/2023 Insurance Providers Payer Name Payer Address Payer Phone Subscriber Number Group Number Insured Name Patient Relationship to Insured Coverage Start Date Coverage End Date MEDICARE [place] [address] [address] [place] [address] [id number] KAYLA SHIRA Self - patient is the insured [facility] [address] [place] [id number] ALEXANDRESHIRA Enamorado Self - patient is the insured Medical (General) History Medical History History ICD Code Coronary Artery Disease Hypertension Hyperlipidemia Aortic Stenosis, s/p Tissue Valve Replac [facility]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
--- OUTSIDE RECORDS SUMMARY | 2025-03-28 10:45 | XMS_ITS | Encounter Summary ---
Author Organization [employer] Address [address] [place] [address] Care Team Providers Care Paperhanger Name Role Phone Unavailable Primary Care Provider Unavailabl e Encounter Details Date Type Department Care Team (Late st Contact Info) Description 08/04/2020 Transcribed Document [facility] [place] [address] [place] [address] ProviderPrasanth MD [facility] [place] [address] Social History Tobacco Use Types Packs/Day Years Used Date Smoking Tobacco: Never Assessed Sex and Gender Information Value Date Recorded Sex Assigned at Not on file Legal Sex Male 6:49 PM CDT Gender Identity Not on file Sexual Orientation Not on file documented as of this encounter Miscellaneous Notes * Cerner Conversion Note - Historical ProviderMD - 08/04/2020 12:00 PM CDT Event Note Entered On: 08/04/2020 13:27 EDT Performed On: 08/04/2020 12:00 EDT by WALTER POWELL RN Event Note Event Date/Time : 08/04/2020 12:00 EDT Event Location : Assigned room Description of Event : Arrives per stretcher from [facility] awake and alert, skin w/d, no c/o. Denies any CP. SR heart monitor. WALTER POWELL RN - 08/04/2020 13:26 EDT documented in this encounter Plan of Treatment Not on file documented as of this encounter Visit Diagnoses Not on filedocumented in this encounter
--- OUTSIDE RECORDS SUMMARY | 2025-03-28 10:45 | XMS_ITS | Encounter Summary ---
Author Organization [employer] Address [address] [place] [address] Care Team Providers Care String Studies Director Name Role Phone Unavailable Primary Care Provider Unavailabl e Encounter Details Date Type Department Care Team (Late st Contact Info) Description 06/02/2021 Transcribed Document [facility] [place] [facility] [place] [address] ProviderPrasanth MD [address] [place] [id number] Social History Tobacco Use Types Packs/Day Years Used Date Smoking Tobacco: Never Assessed Sex and Gender Information Value Date Recorded Sex Assigned at Not on file Legal Sex Male 6:49 PM CDT Gender Identity Not on file Sexual Orientation Not on file documented as of this encounter Miscellaneous Notes * Cerner Conversion Note - Prasanth ProviderMD - 06/02/2021 11:35 AM CDT Patient: SHIRA GARZA HORACIO Age: 85 years Sex: Male : 1935 Associated Diagnoses: Chest pain; Weakness; Elevated troponin Author: SULAIMAN BUCHANAN PA Basic Information Time seen: Date & time 06/02/2021 11:20:00. History source: Patient, spouse. Arrival mode: Private vehicle. History limitation: None. Additional information: Chief Complaint from Nursing Triage Note : Chief Complaint 06/02/2021 10:01 EDT Chief Complaint Pt c/o episode of CP x 2 hours last night, new onset bialteral weakness R>L onset 0 last night that resolved after 2 hours. . History of Present Illness The patient presents with weakness, chest pain. and Patient is a very pleasant 85-year-old white male who presents to room 12 with his with complaint of chest pain and generalized weakness. He reports that last night around 10 PM he began having nonradiating midline chest pain; he states he went to bed and around midnight the pain resolved spontaneously. There were no exacerbating or relieving factors. No nausea, vomiting, diaphoresis or shortness of breath. He awoke sometime later and states that he was too weak to walk. He reports to me that it was generalized weakness but does later admit that the right seem to be worse than the left. He does continue to have some subjective heaviness of the left leg, but full motor function. He called his PCP and they sent him here for evaluation. Patient has no complaints of pain or discomfort currently.. Review of Systems Constitutional symptoms: No fever, no chills. Skin symptoms: No rash, Eye symptoms: Vision unchanged. ENMT symptoms: No ear pain, no sore throat, no nasal congestion. Respiratory symptoms: No shortness of breath, no cough. Cardiovascular symptoms: Negative except as documented in HPI. Gastrointestinal symptoms: No abdominal pain, no nausea, no vomiting. Genitourinary symptoms: No dysuria, no hematuria. Musculoskeletal symptoms: Negative except as documented in HPI. Neurologic symptoms: Weakness (As above), no headache, no dizziness, no altered level of consciousness. Health Status Allergies: Allergic Reactions (Selected) High Plavix- No reactions were documented. Severity Not Documented Amiodarone- Unknown.. Medications: (Selected) Documented Medications Documented Metoprolol Succinate ER: 25 mg, Oral, Daily, 0 Refill(s) atorvastatin 20 mg oral tablet: 1 Tab, Oral, Tuesday, 0 Refill(s) hydroCHLOROthiazide-lisinopril 12.5 mg-20 mg oral tablet: 1 Tab, Oral, Daily, 30 Tab, 0 Refill(s) multivitamin: 1 Tab, Oral, Daily, 0 Refill(s). Past Medical/ Family/ Social History Surgical history: TAVR on 10/29/2019 at 84 Years. Biventricular pacemaker implant -[employer] on 10/29/2019 at 84 Years. Comments: 08/05/2020 10:31 JIMI CARRANZA RN [employer] pulse generator model [id number], serial #[id number] CABG x5 on 05/29/2008 at 72 Years. Comments: 08/05/2020 10:30 JIMI CARRANZA RN Off-pump coronary artery bypass grafting x5 (sequential left internal mammary artery graft to the second diagonal and left anterior descending, saphenous vein graft to posterior descending branch of the circumflex, sequential saphenous vein graft to first diagonal and second circumflex marginal), insertion of On-Q PainBuster. right inguinal hernia repair. cyst removed - upper back. colonoscopy - times 4. Comments: 11/14/2018 7:33 RADHA MCKEON RN polyps removed. heart catheterization. vasectomy. right wrist surgery - plate placed. bilateral eyelid lift.. Family history: No family history items have been selected or recorded.. Social history: Social & Psychosocial Habits Alcohol 12/03/2019 Alcohol Use History, Social Habits No Alcohol Use Frequency Rarely Alcohol Use Comment has beer when traveling to other countries Employment/School 10/26/2019 Status: Employed Home/Environment 10/26/2019 Lives with: Spouse Living situation: Home/Independent Substance Abuse 11/14/2018 Recreational Drug Use History No Recreational Drug Use Last 12 Months No Tobacco 12/03/2019 Month Tobacco Last Used quit smoking 200707/22/2020 Smoking Status Former smoker, quit more Smokeless Tobacco Status Never Month Tobacco Last Used 2007. was occasional smoker . maybe 1 pack each week 08/04/2020 Smoking Status Former smoker, quit more Month Tobacco Last Used Quit 2007 . Problem list: Active Problems (21) Aortic valve stenosis At risk for sleep apnea At risk for sleep apnea Atrial fibrillation Atrial flutter Benign neoplastic disease CAD (coronary artery disease) CAD - Coronary artery disease Chest pain H/O aortic valve replacement Hard of hearing HLD - Hyperlipidemia HTN - Hypertension Hyperlipidemia Hyperlipidemia Hypertension Hypertension Impaired vision in both eyes Right bundle branch block Shortness of breath Wears glasses . Physical Examination Vital Signs Vital Signs/Vital Measures 06/02/2021 10:01 EDT Systolic Blood Pressure 186 mmHg HI Diastolic Blood Pressure 88 mmHg Temperature Source Temporal artery scanning Temperature Mode Fahrenheit Temperature, Fahrenheit 97.6 Deg F Clinical Temperature, C 36.4 Deg C Peripheral Pulse Rate 58 bpm LOW Respiratory Rate 16 Breaths/Min Oxygen Saturation 97 % Oxygen Therapy Mode Room air . Measurements 06/02/2021 10:01 EDT Height Source Stated Height Entry Format Gage Height/Length, TAMAZIGHT (ft) 5 ft Height/Length TAMAZIGHT 9 Inch CLINICALHEIGHT 175.26 cm [place] Body Weight 69.73 kg Weight Source, ED Standing scale Weight Entry Format Gage Weight Maltese lb 198.4 lb CLINICALWEIGHT 90.18 kg Body Surface Area (BSA) 2.06 m2 Body Mass Index 29.4 kg/m2 HI . Oxygen Saturation 06/02/2021 10:01 EDT Oxygen Saturation 97 % . General: Alert, no acute distress. Skin: Warm, dry, pink. Head: Normocephalic, atraumatic. Neck: Supple. Eye: Normal conjunctiva, vision grossly normal. Ears, nose, mouth and throat: Oral mucosa moist. Cardiovascular: Regular rate and rhythm, No murmur. Respiratory: Lungs are clear to auscultation, respirations are non-labored. Gastrointestinal: Soft, Nontender, Non distended. Back: Nontender. Musculoskeletal: Normal ROM, normal strength, no tenderness. Neurological: Alert and oriented to person, place, time, and situation, No focal neurological deficit observed. Psychiatric: Cooperative, appropriate mood & affect. Medical Decision Making Differential Diagnosis: Weakness, dizziness, hypotension, dehydration, hypoglycemia, viral syndrome, sepsis, urinary tract infection, cerebral vascular accident, transient ischemic attack, GA.. Documents reviewed: Emergency department nurses' notes. Orders Include Previous Orders (Selected) Inpatient Orders Ordered Cardiac Monitoring: EKG: Oxygen Therapy: Peripheral IV Insertion: Pulse Oximetry Continuous Monitoring: Ordered (Exam Completed) CR Chest 2 Vws: CT Brain WO: Completed .Urinalysis Microscopic: BMP Basic Metabolic Panel: CBC w/ Auto Diff: Extra Blue Tube: Normal Saline Flush: 10 mL, IV Push, 1-Time, PRN: IV Use Troponin I Ultra: Urinalysis UA Rflx Microscopic Cult if Ind: aspirin: 324 mg, Chew, 1-Time. Electrocardiogram: Time 06/02/2021 11:22:00, rate 69, normal sinus rhythm, PVCs, RBBB. Results review: Lab results : Lab Results 06/02/2021 11:10 EDT Urine Type. U CleanCatch Urine Color Yellow Urine Appearance Clear Urine Specific Tingley 1.020 Urine pH Dipstick *5.0 Urine Leukocyte Esterase Negative Urine Nitrite Negative Urine Protein Dipstick Negative Urine Glucose Dipstick Negative Urine Ketones Dipstick Negative Urine Urobilinogen Dipstick 0.2 EU/dL Urine Bilirubin Dipstick Negative Urine Blood Dipstick Trace Ur RBC 0-2 /HPF Ur WBC 0-2 /HPF Ur Bacteria Trace Ur Mucous 1+ Ur Squamous Epithelial Cells 0-2 /HPF Ur Hyaline Casts 0-2 /LPF Urine Culture if Indicated Not Indicated 06/02/2021 10:05 EDT Sodium Level 138 mmol/L Potassium Level 3.7 mmol/L Chloride Level 109 mmol/L Carbon Dioxide Level 24 mmol/L Anion Gap 9 Glucose Level 127 mg/dL HI Blood Urea Nitrogen 28 mg/dL HI Creatinine Level 1.10 mg/dL eGFR >60 mL/min/1.73m2 eGFR NonAfrican >60 mL/min/1.73m2 Bun/Creatinine 25.5 HI Calcium Level 9.5 mg/dL Troponin I Ultra 1.210 ng/mL CRIT WBC 6.1 K/uL RBC 5.08 Million/uL Hgb 14.4 g/dL Hct 43.4 % MCV 85.4 fL MCH 28.3 pg MCHC 33.2 Gram/dL Platelet Count 123 K/uL LOW MPV 12.5 fL HI RDW 16.3 % HI Neut % 62.7 % Neut # 3.83 K/uL Lymph % 26.0 % Lymph # 1.59 K/uL Haywood % 10.6 % Haywood # 0.65 K/uL Eos % 0.5 % Eos # 0.03 Baso % 0.2 % Baso # 0.01 Slide Review No . Chest X-Ray: No infiltrate; no pneumothorax; normal mediastinum; no bony abnormality. Sternotomy wires and pacemaker. Per EDMD. . Radiology results: Radiology Results (Last 48 hours) [id number] -- 06/02/2021 09:50 CT Head WO (06/02/2021 10:53) Result: CT [...] dictated by Dr. Zina Evangelista.Transcribed by Whitney Stapleton(R).. Impression and Plan Diagnosis Chest pain - Discharge, Emergency medicine, Medical Weakness - Discharge, Emergency medicine, Medical Elevated troponin - Discharge, Emergency medicine, Medical Calls-Consults - 06/02/2021 11:34:00 , [facility] - 06/02/2021 12:01:00 , CJ AVITIA MD-INT, phone call, recommends admission to tele. Plan Condition: Stable. Disposition: Admit Admit/Transfer/Discharge: Admit to Inpatient (Order): Start: 06/02/2021 12:02 EDT, Admit reason: CP/weakness/jennifer trop, Estimated length of stay 2 Midnights or LONGER, Level of Care: Telemetry unit, Admitting: CJ AVITIA MD-INT. Counseled: Patient, Family, Regarding diagnosis, Regarding diagnostic results, Regarding treatment plan, Patient indicated understanding of instructions, Discussed need for admission and pt/family is amenable to this plan.. Notes: I certify that the physician physician office assistant performed the services as delegated. This note has been prepared with the use of voice recognition software and may contain sound alike errors and omissions.. documented in this encounter Plan of Treatment Not on file documented as of this encounter Visit Diagnoses Not on filedocumented in this encounter
--- OUTSIDE RECORDS SUMMARY | 2025-03-28 10:45 | XMS_ITS | Encounter Summary ---
Author Organization [employer] Address [address] [place] [address] Care Team Providers Care Infection Prevention Practitioner Name Role Phone Unavailable Primary Care Provider Unavailabl e Encounter Details Date Type Department Care Team (Late st Contact Info) Description 06/02/2021 Transcribed Document [facility] [place] [facility] [place] [address] ProviderPrasanth MD [address] [place] [id number] Social History Tobacco Use Types Packs/Day Years Used Date Smoking Tobacco: Never Assessed Sex and Gender Information Value Date Recorded Sex Assigned at Not on file Legal Sex Male 6:49 PM CDT Gender Identity Not on file Sexual Orientation Not on file documented as of this encounter Miscellaneous Notes * Cerner Conversion Note - Historical ProviderMD - 06/02/2021 12:40 PM CDT Evaluation, Occupational Therapy Entered On: 06/03/2021 13:13 EDT Performed On: 06/03/2021 12:01 EDT by BESS VINCENT, OTR/L General Information, OT Visit Type, OT : Initial evaluation Patient Orders : Order Date Order Ordering MD 06/02/2021 12:40 OT Evaluation and Treatment Ordered By: CJ AVITIA MD-INT Active Diagnoses : 06/02/2021 12:00 Chest pain 06/02/2021 12:00 Chest pain, unspecified 06/02/2021 12:00 Non-ST elevation (NSTEMI) myocardial infarction 06/02/2021 12:00 Other specified abnormalities of plasma proteins 06/02/2021 12:00 Transient cerebral ischemic attack, unspecified 06/02/2021 12:00 Weakness Admission Date : 06/02/2021 12:02 Co-treated by, OT : Physical Therapist Personal Devices : Personal Devices Glasses Assistive Devices : Assistive Devices No Devices Recorded General Information Comment, OT : 85 yo male who was admitted to [facility] on 06/02 for chest pain, elevated troponin, NSTEMI, RLE weakness, and dysarthria. PMHx: aortic valve stenosis s/p replacement, Afib, CAD s/p CABG, PAI[place] OF [place], HLD, HTN, pacemaker, and SDH. CTH: no acute abnormality BESS VINCENT OTR/L - 06/03/2021 13:07 EDT General Status Patient Received Status : Up in chair Treatment Start Time : 06/03/2021 11:37 EDT Patient Left Status : Up in chair, RN/PCT informed, All needs met and within reach RN/PCT Informed Comment : WILL Downing Treatment End Time : 06/03/2021 12:01 EDT Treatment Time : 24 Minute(s) BESS VINCENT OTR/L - 06/03/2021 13:07 EDT History and Environment, OT Living Situation, Therapy : Home Patient Lives With : Spouse Persons Assisting Patient at Home : Spouse Professional Skilled Services : None Persons Providing Information : Patient Home Equipment, Therapy : None Home Setup : One story Stairs : Yes Stair Location(s) : Outside Outside Stairs, Number of Steps : 1 Railing Outside : No BESS VINCENT OTR/Chio - 06/03/2021 13:07 EDT Prior LOF Bathing, OT : Independent Prior LOF Bed Mobility : Independent Prior LOF Upper Body Dressing, OT : Independent Prior LOF Lower Body Dressing, OT : Independent Prior LOF Toileting : Independent Prior LOF Transfer : Independent Prior LOF Grooming, OT : Independent Prior LOF for IADLs, OT : Independent BESS VINCENT OTR/Chio - 06/03/2021 13:07 EDT Upper Extremity Upper Extremity Dominance : Left Right UE Active ROM : WFL Right UE Strength : WFL Left UE Active ROM : WFL Left UE Strength : WFL BESS VINCENT OTR/L - 06/03/2021 13:07 EDT Right Upper Extremity MMT Shoulder Flexion 0-180 : 5/normal Shoulder Extension 0-60 : 5/normal Shoulder Abduction 0-180 : 5/normal Shoulder Adduction 0-180 : 5/normal Shoulder Internal Rotation 0-90 : 5/normal Shoulder External Rotation 0-90 : 5/normal Elbow Flexion 0-150 : 5/normal Elbow Extension 0-0 : 5/normal Wrist Flexion 0-80 : 5/normal Wrist Extension 0-70 : 5/normal Forearm Pronation 0-70 : 5/normal Forearm Supination 0-85 : 5/normal Ulnar Deviation 0-45 : 5/normal RadialDeviation 0-20 : 5/normal BESS VINCENT OTR/Chio - 06/03/2021 13:07 EDT Left Upper Extremity MMT Shoulder Flexion 0-180 : 5/normal Shoulder Extension 0-60 : 5/normal Shoulder Abduction 0-180 : 5/normal Shoulder Adduction 0-180 : 5/normal Shoulder Internal Rotation 0-90 : 5/normal Shoulder External Rotation 0-90 : 5/normal Elbow Flexion 0-150 : 5/normal Elbow Extension 0-0 : 5/normal Wrist Flexion 0-80 : 5/normal Wrist Extension 0-70 : 5/normal Forearm Pronation 0-70 : 5/normal Forearm Supination 0-85 : 5/normal Ulnar Deviation 0-45 : 5/normal RadialDeviation 0-20 : 5/normal BESS VINCENT OTR/Chio - 06/03/2021 13:07 EDT Fine Motor Coordination Impaired : No Upper Extremity Comment : BUE ROM and MMT WFL BESS VINCENT OTR/Chio - 06/03/2021 13:07 EDT Self Care/Home Management, OT Self Feeding Assist Level, OT : Independent, complete Grooming Assist Level, OT : Independent, complete Bathing Assist Level, OT : Independent, complete Upper Body Dressing Assist Level, OT : Independent, complete Lower Body Dressing Assist Level, OT : Independent, complete Toileting Assist Level : Independent, complete Toilet Transfer Assist Level : Independent, complete BESS VINCENT OTR/Chio 06/03/2021 13:07 EDT Mobility Device/Prosthesis/Wt Bearing Weight Bearing Status Maintained : Yes Weight Bearing Status : Full BESS VINCENT OTR/Chio Zarate 06/03/2021 13:07 EDT Functional Mobility Mobility Grid Sit to Stand : Rehab Complete independence Stand to Sit : Rehab Complete independence BESS VINCENT OTR/Chio - 06/03/2021 13:07 EDT Sit to Stand Device : Belt, gait Stand to Sit Device : Belt, gait BESS VINCENT, OTR/L - 06/03/2021 13:07 EDT Neurological/Sensory Overall Sensory Response : BESS Davenport OTR/L - 06/03/2021 13:07 EDT Cognition Assessment, OT Orientation : Oriented x 4 Cognition Assessment, OT : Intact Comprehension Assessment, OT : Intact BESS VINCENT, OTR/L - 06/03/2021 13:07 EDT Visual/Perceptual/Vestibular, OT Vision Assessment, OT : BESS Davenport OTR/L - 06/03/2021 13:07 EDT Education OT Occupational Therapy Education Grid Activity of Daily Living Training : Returns demonstration Functional Mobility Training : Returns demonstration Role of Occupational Therapy : Verbalizes understanding BESS VINCENT OTR/L 06/03/2021 13:07 EDT Teaching/Learning Assessment Barriers To Learning : None evident Individuals Taught : Patient Readiness to Learn : Cooperative Readiness to Learn : Explanation Learning Style Preferences Patient : Verbal explanation Learning Style Preferences Family : Verbal explanation BESS VINCENT OTR/L 06/03/2021 13:07 EDT Indication Assessment, OT Occupational Therapy Indicated : No Occupational Therapy Not Indicated : Independent BESS VINCETN OTR/L - 06/03/2021 13:07 EDT Plan of Care, OT OT Tx Plan/Goals Established w Patient : No Reason OT Treatment/Plan Not Established : Pt independent with all ADLs and fxnl mobility BESS VINCENT OTR/L - 06/03/2021 13:07 EDT Treatment Note Subjective Comment : Pt and RN okay'd OT eval at this time Patient's Response to Treatment : Pt tolerated OT eval well Additional Objective Information : Pt sitting in chair upon OT arrival. Pt tolerated BUE ROM and MMT. Pt donned socks independently. Pt stood independently and walked approx. 250ft independently without LOB or need for rest break. Pt returned to room and sat in chair independently. Pt left sitting in chair with call light/phone within reach. Assessment : No OT concerns at this time Plan for Treatment : Defer OT BESS VINCENT OTR/L - 06/03/2021 13:07 EDT Pain Assessment Pain Scaled Used : 0-10 Pain scale Pain Score Pre-Intervention : 0 BESS VINCENT OTR/L - 06/03/2021 13:07 EDT Image 1 - Images currently included in the form version of this document have not been included in the text rendition version of the form. Anticipated Discharge Needs, OT/PT Anticipated Discharge to : Home, independently Recommend Continued Therapy at Discharge : No BESS VINCENT OTR/L - 06/03/2021 13:07 EDT [place] OT Charges OT Ther Activities Ea 15 Min : 1 OT Eval Moderate Complexity : 1 BESS VINCENT OTR/L - 06/03/2021 13:07 EDT documented in this encounter Plan of Treatment Not on file documented as of this encounter Visit Diagnoses Not on filedocumented in this encounter
--- OUTSIDE RECORDS SUMMARY | 2025-03-28 10:45 | XMS_ITS | Encounter Summary ---
Author Organization [employer] Address [address] [place] [address] Care Team Providers Care Line Supervisor Name Role Phone Unavailable Primary Care Provider Unavailabl e Encounter Details Date Type Department Care Team (Late st Contact Info) Description 07/22/2020 Transcribed Document [facility] [place] [address] [place] [address] ProviderPrasanth MD [address] [place] [id number] Social History Tobacco Use Types Packs/Day Years Used Date Smoking Tobacco: Never Assessed Sex and Gender Information Value Date Recorded Sex Assigned at Not on file Legal Sex Male 6:49 PM CDT Gender Identity Not on file Sexual Orientation Not on file documented as of this encounter Miscellaneous Notes * Cerner Conversion Note - rPasanth Sanchez MD - 07/22/2020 12:13 PM CDT [facility] [address] [place] [id number] KAYLA SHIRA HORACIO :1935 Visit Time:07/22/2020 Your Visit Summary Your Care Team Admitting Physician - ABEBA HOOKS MD Attending Physician - ABEBA HOOKS MD Primary Care Physician - KARON MCWILLIAMS MD-INT Referring Physician - LACIE ALVA MD-CAR Your Diagnosis Aortic valve disease Nonrheumatic aortic (valve) stenosis, Nonrheumatic aortic (valve) stenosis Discharge Vitals Temperature 36.3 ??C Heart Rate (Monitored) 56 Respiratory Rate 15 Blood Pressure 111/69 Blood Pressure 125/66(Line) What to do next Instructions From Your Care Team no driving today. lease picker prescription and start Coumadin according to directions. [facility] to monitor Coumadin labs and dose Follow-Up Appointments Follow Up with LACIE ALVA When 08/21/2020 11:15 AM EST Comments Appointment has been made Where: [address] [place] [address]- Business (1) Medications What How Much When Instructions Next Dose warfarin (warfarin 5 mg oral tablet) 1 Tablet(s) Oral Every Day Refills: 6 dose to be adjusted Pickup at [facility] 591 aspirin 81 Milligram(s) Every Day atorvastatin (atorvastatin 20 mg oral tablet) 1 Tablet(s) Oral Tuesday lisinopril 20 Milligram(s) Oral Every Day multivitamin 1 Tablet(s) Oral Every Day Pharmacy Information [facility] 591: [address] [address] [phone] Start Coumadin tonight Take your medications faithfully. Do NOT skip [...] This Visit No Immunizations Found Education Materials What You Need to Know About Warfarin Warfarin is a blood thinner (anticoagulant). Anticoagulants help to prevent the formation of blood clots. They also help to stop the growth of blood clots. Who should use warfarin? Warfarin is prescribed for people who are at risk for developing harmful blood clots, such as people who have: ??? Surgically implanted mechanical heart valves. ??? Irregular heart rhythms (atrial fibrillation). ??? Certain clotting disorders. ??? A history of harmful blood clotting in the past. This includes people who have had: ? A stroke. ? Blood clot in the lungs (pulmonary embolism, or PE). ? Blood clot in the legs (deep vein thrombosis, or DVT). ??? An existing blood clot. How is warfarin taken? Warfarin is a medicine that you take by mouth (orally). Warfarin tablets come in different strengths. Each tablet strength is a different color, with the amount of warfarin printed on the tablet. If you get a new prescription filled and the color of your tablet is different than usual, tell your pharmacist or health care provider immediately. What blood tests do I need while taking warfarin? The goal of warfarin therapy is to lessen the clotting tendency of blood, but not to prevent clotting completely. Your health care provider will monitor the anticoagulation effect of warfarin closely and will adjust your dose as needed. Warfarin is a medicine that needs to be closely monitored, so it is very important to keep all lab visits and follow-up visits with your health care provider. While taking warfarin, you will need to have blood tests (prothrombin tests, or PT tests) regularly to measure your blood clotting time. This type of test can be done with a finger stick or a blood draw. What does the INR test result mean? The PT test results will be reported as the International Normalized Ratio (INR). The INR tells your health care provider whether your dosage of warfarin needs to be changed. The longer it takes your blood to clot, the higher the INR. Your health care provider will tell you your target INR range. If your INR is not in your target range, your health care provider may adjust your dosage. ??? If your INR is above your target range, there is a risk of bleeding. Your dosage of warfarin may need to be decreased. ??? If your INR is below your target range, there is a risk of clotting. Your dosage of warfarin may need to be increased. How often is the INR test needed? When you first start warfarin, you will usually have your INR checked every few days. ??? You may need to have INR tests done more than once a week until you are taking the correct dosage of warfarin. ??? After you have reached your target INR, your INR will be tested less often. However, you will need to have your INR checked at least once every 4???6 weeks for the entire time you are taking warfarin. What are the side effects of warfarin? Too much warfarin can cause bleeding (hemorrhage) in any part of the body, such as: ??? Bleeding from the gums. ??? Unexplained bruises. ??? Bruises that get larger. ??? Blood in the urine. ??? Bloody or dark stools. ??? Bleeding in the brain (hemorrhagic stroke). ??? A nosebleed that is not easily stopped. ??? Coughing up blood. ??? Vomiting blood. Warfarin use may also cause: ??? Skin rash or irritations ??? Nausea that does not go away. ??? Severe pain in the back or joints. ??? Painful toes that turn blue or purple (purple toe syndrome). ??? Painful ulcers that do not go away (skin necrosis). What are the signs and symptoms of a blood clot? Too little warfarin can increase the risk of blood clots in your legs, lungs, or arms. Signs and symptoms of a DVT in your leg or arm may include: ??? Pain or swelling in your leg or arm. ??? Skin that is red or warm to the touch on your arm or leg. Signs and symptoms of a pulmonary embolism may include: ??? Shortness of breath or difficulty breathing. ??? Chest pain. ??? Unexplained fever. What are the signs and symptoms of a stroke? If you are taking too much or too little warfarin, you can have a stroke. Signs and symptoms of a stroke may include: ??? Weakness or numbness of your face, arm, or leg, especially on one side of your body. ??? Confusion or trouble thinking clearly. ??? Difficulty seeing with one or both eyes. ??? Difficulty walking or moving your arms or legs. ??? Dizziness. ??? Loss of balance or coordination. ??? Trouble speaking, trouble understanding speech, or both (aphasia). ??? Sudden, severe headache with no known cause. ??? Partial or total loss of consciousness. What precautions do I need to take while using warfarin? Take warfarin exactly as told by your health care provider. Doing this helps you avoid bleeding or blood clots that could result in serious injury, pain, or disability. ??? Take your medicine at the same time every day. If you forget to take your dose of warfarin, take it as soon as you remember that day. If you do not remember on that day, do not take an extra dose the next day. ??? Contact your health care provider if you miss or take an extra dose. Do not change your dosage on your own to make up for missed or extra doses. ??? Wear or carry identification that says that you are taking warfarin. ??? Make sure that all health care providers, including your dentist, know you are taking warfarin. ??? If you need surgery, talk with your health care provider about whether you should stop taking warfarin before your surgery. ??? Avoid situations that cause bleeding. You may bleed more easily while taking warfarin. To limit bleeding, take the following actions: ? Use a softer toothbrush. ? Floss with waxed floss, not unwaxed floss. ? Shave with an electric razor, not with a blade. ? Limit your use of sharp objects. ? Avoid potentially harmful activities, such as contact sports. What do I need to know about warfarin and or ? Warfarin is not recommended during the first trimester of due to an increased risk of defects. In certain situations, a woman may take warfarin after her first trimester of . ??? If you are taking warfarin and you become or plan to become , contact your health care provider right away. ??? If you plan to breastfeed while taking warfarin, talk with your health care provider first. What do I need to know about warfarin and alcohol or drug use? Avoid drinking alcohol, or limit alcohol intake to no more than 1 drink a day for non women and 2 drinks a day for men. One drink equals 12 oz of beer, 5 oz of wine, or 1?? oz of hard liquor. ? If you change the amount of alcohol that you drink, tell your health care provider. Your warfarin dosage may need to be changed. ??? Avoid tobacco products, such as cigarettes, chewing tobacco, and e-cigarettes. If you need help quitting, ask your health care provider. ? If you change the amount of nicotine or tobacco that you use, tell your health care provider. Your warfarin dosage may need to be changed. ??? Avoid street drugs while taking warfarin. The effects of street drugs on warfarin are not known. What do I need to know about warfarin and other medicines or supplements? Many prescription and dula-hbn-sducbpe medicines can interfere with warfarin. Talk with your health care provider or your pharmacist before starting or stopping any new medicines. This includes qoky-rwl-xymmzov vitamins, dietary supplements, herbal medicines, and pain medicines. Your warfarin dosage may need to be adjusted. ??? Some common ncht-mre-uynnmog medicines that may increase the risk of bleeding while taking warfarin include: ? Acetaminophen. ? Aspirin. ? NSAIDs, such as ibuprofen or naproxen. ? Vitamin E. What do I need to know about warfarin and my diet? It is important to maintain a normal, balanced diet while taking warfarin. Avoid major changes in your diet. If you are going to change your diet, talk with your health care provider before making changes. ??? Your health care provider may recommend that you work with a diet and nutrition technician (dietitian). ??? Vitamin K decreases the effect of warfarin, and it is found in many foods. Eat a consistent amount of foods that contain vitamin K. For example, you may decide to eat 2 vitamin K-containing foods each day. Most foods that are high in vitamin K are green and leafy. Common foods that contain high amounts of vitamin K include: ??? Kale, raw or cooked. ??? Spinach, raw or cooked. ??? Collards, raw or cooked. ??? Iraqi chard, raw or cooked. ??? Mustard greens, raw or cooked. ??? Turnip greens, raw or cooked. ??? Parsley, raw. ??? Broccoli, cooked. ??? Noodles, eggs, and spinach, enriched. ??? [place] sprouts, raw or cooked. ??? Beet greens, raw or cooked. ??? Endive, raw. ??? Cabbage, cooked. ??? Asparagus, cooked. Foods that contain moderate amounts of vitamin K include: ??? Broccoli, raw. ??? Cabbage, raw. ??? Bok betsy, cooked. ??? Green leaf lettuce, raw ??? Prunes, stewed. ??? Pickles. ??? Kiwi. ??? Edamame, cooked. ??? Jimmie lettuce, raw. ??? Avocado. ??? Tuna, canned in oil. ??? Okra, cooked. ??? Black-eyed peas, cooked. ??? Green beans, cooked or raw. ??? Blueberries, raw. ??? Blackberries, raw. ??? Peas, cooked or raw. Contact a health care provider if: ??? You miss a dose. ??? You take an extra dose. ??? You plan to have any kind of surgery or procedure. ??? You are unable to take your medicine due to nausea, vomiting, or diarrhea. ??? You have any major changes in your diet or you plan to make any major changes in your diet. ??? You start or stop any klvj-jvd-gxjlcbj medicine, prescription medicine, or dietary supplement. ??? You become , plan to become , or think you may be . ??? You have menstrual periods that are heavier than usual. ??? You have unusual bruising. Get help right away if: ??? You develop symptoms of an allergic reaction, such as: ? Swelling of the lips, face, tongue, mouth, or throat. ? Rash. ? Itching. ? Itchy, red, swollen areas of skin (hives). ? Trouble breathing. ? Chest tightness. ??? You have: ? Signs or symptoms of a stroke. ? Signs or symptoms of a blood clot. ? A fall or have an accident, especially if you hit your head. ? Blood in your urine. Your urine may look reddish, pinkish, or tea-colored. ? Blood in your stool. Your stool may be black or bright red. ? Bleeding that does not stop after applying pressure to the area for 30 minutes. ? Severe pain in your joints or back. ? Purple or blue toes. ? Skin ulcers that do not go away. ??? You vomit blood or cough up blood. The blood may be bright red, or it may look like coffee grounds. These symptoms may represent a serious problem that is an emergency. Do not wait to see if the symptoms will go away. Get medical help right away. Call your local emergency services (911 in the [place] Do not drive yourself to the hospital. Summary ??? Warfarin needs to be closely monitored with blood tests. It is very important to keep all lab visits and follow-up visits with your health care provider. ??? Make sure that you know your target INR range and your warfarin dosage. ??? Wear or carry identification that says that you are taking warfarin. ??? Take warfarin at the same time every day. Call your health care provider if you miss a dose or if you take an extra dose. Do not change the dosage of warfarin on your own. ??? Know the signs and symptoms of blood clots, bleeding, and a stroke. Know when to get emergency medical help. ??? Tell all health care providers who care for you that you are taking warfarin. ??? Talk with your health care provider or your pharmacist before starting or stopping any new medicines. ??? Monitor how much vitamin K you eat every day. Try to eat the same amount every day. This information is not intended to replace advice given to you by your health care provider. Make sure you discuss any questions you have with your health care provider. Document Released: 09/26/2006 Document Revised: 05/09/2018 Document Reviewed: 12/22/2016 [employer] Patient Education ?? 2020 [employer] Moderate Conscious Sedation, Adult, Care After [...] you are awake and alert. ??? Take rkmi-vhp-vlmhxck and prescription medicines only as told by [...] care provider. Document Released: 07/17/2014 Document Revised: 09/08/2018 Document Reviewed: 01/15/2017 Elsevier Patient Education ?? 2020 [employer] Transesophageal Echocardiogram Transesophageal echocardiogram (VITOR) is a [...] including vitamins, herbs, eye drops, creams, and ptlm-bbl-xydztvv medicines. ??? Any problems you or family [...] diabetes medicines or blood thinners. ? Taking flwk-pwq-vwocyzo medicines, vitamins, herbs, and supplements. ? Taking [...] care provider. Document Released: 12/17/2003 Document Revised: 03/07/2018 Document Reviewed: 12/23/2017 [employer] Patient Education ?? 2020 [employer]. Emergency Awareness and Preventative Care STROKE is [...] Assistance with quitting is available by contacting 2-658-CYMA-NOW. This is a free resource providing counseling, [...] This Visit (last charted value for your 07/22/2020 visit) Echo 07/22/2020 8:12 AM EC VITOR Complete: EC VITOR Complete Patient Name:SHIRA GARZA I have received and understand this information and was given the opportunity to ask questions. Patient/Credit Control Clerk Name: Patient/Credit Control Clerk Signature: Relationship to Patient: Clinician/Hospital Credit Control Clerk Signature: Date: documented in this encounter Plan of Treatment Not on file documented as of this encounter Visit Diagnoses Not on filedocumented in this encounter
--- OUTSIDE RECORDS SUMMARY | 2025-03-28 10:45 | XMS_ITS | Encounter Summary ---
Author Organization [employer] Address [address] [place] [address] Care Team Providers Care Maintenance Services Dispatcher Name Role Phone Unavailable Primary Care Provider Unavailabl e Encounter Details Date Type Department Care Team (Late st Contact Info) Description 06/02/2021 Transcribed Document [facility] [place] [facility] [place] [address] ProviderPrasanth MD [facility] [place], [place] [address] Social History Tobacco Use Types Packs/Day Years Used Date Smoking Tobacco: Never Assessed Sex and Gender Information Value Date Recorded Sex Assigned at Not on file Legal Sex Male 6:49 PM CDT Gender Identity Not on file Sexual Orientation Not on file documented as of this encounter Miscellaneous Notes * Cerner Conversion Note - Historical ProviderMD - 06/02/2021 12:40 PM CDT Education-(VTE) / (DVT) Entered On: 06/02/2021 15:50 EDT Performed On: 06/02/2021 12:40 EDT by Chang Medrano, Media Relations Manager-Student Nurse Teaching/Learning Assessment Individuals Taught : Patient Readiness to Learn : Cooperative Readiness to Learn : Explanation, Teach back method Learning Style Preferences Patient : Verbal explanation Chang Medrano, Media Relations Manager-Student Nurse - 06/02/2021 15:50 EDT Barriers To Learning : None evident Chang Medrano, Media Relations Manager-Student Nurse - 06/02/2021 15:49 EDT documented in this encounter Plan of Treatment Not on file documented as of this encounter Visit Diagnoses Not on filedocumented in this encounter
--- OUTSIDE RECORDS SUMMARY | 2025-03-28 10:45 | XMS_ITS | Encounter Summary ---
Author Organization [employer] Address [address] [place] [address] Care Team Providers Care Powerhouse Electrician Name Role Phone Unavailable Primary Care Provider Unavailabl e Encounter Details Date Type Department Care Team (Late st Contact Info) Description 06/02/2021 Transcribed Document [facility] [place] [facility] [place] [address] ProviderPrasanth MD [address] [place] [id number] Social History Tobacco Use Types Packs/Day Years Used Date Smoking Tobacco: Never Assessed Sex and Gender Information Value Date Recorded Sex Assigned at Not on file Legal Sex Male 6:49 PM CDT Gender Identity Not on file Sexual Orientation Not on file documented as of this encounter Miscellaneous Notes * Cerner Conversion Note - Prasanth ProviderMD - 06/02/2021 12:27 PM CDT Admission History, Adult Entered On: 06/02/2021 15:49 EDT Performed On: 06/02/2021 12:27 EDT by Chang Medrano Signs Sales Representative-Student Nurse Advance Directive Patient has Advance Directive *Q : Yes, Advance Directive on file Advance Directive Type : Living will Copy Advance Directive Verified/on Chart : No Chang Medrano Signs Sales Representative-Student Nurse - 06/02/2021 15:42 EDT Anesthesia/Transfusion History Family History of Anesthesia Reaction : No prior transfusion(s) Transfusion History : Prior anesthesia without reaction Family History of Anesthesia Reaction : None Chang Medrano Signs Sales Representative-Student Nurse - 06/02/2021 15:42 EDT Functional Assessment Living Situation : Home Patient Lives With : Spouse SYBIL Hx Falls Immediate/Within 3 Months : No Current Home Treatments : None Chang Medrano Signs Sales Representative-Student Nurse - 06/02/2021 15:42 EDT General Info Mode of Arrival on Unit : Ambulatory Legal Guardian : Spouse Legal Guardian : No Support Person/Patient Manager Lpn : Yes Support Person/Pt Rep Name : Rosa Elena Bustamante- spouse Support Person/Pt Rep Contact Information : [phone] home [place] Family/Rep/Phys Notified of Admit : No Emergency Contact #1 : Rosa Elena Bustamante Emergency Contact #1 Phone Number : [phone] Emergency Contact #1 Relationship : Emergency Contact #2 : na Emergency Contact #2 Phone Number : na Emergency Contact #2 Relationship : na Chief Complaint : Pt c/o episode of CP x 2 hours last night, new onset bialteral weakness R>L onset 2200 last night that resolved after 2 hours. Primary Language : Kazakh Preferred Communication Mode : Verbal Communication Barrier : None Land Checker Needed : No Chang Medrano, Signs Sales Representative-Student Nurse - 06/02/2021 15:42 EDT Fall Risk Scales ABCs Fall Injury Risk Identification : Age ABC Fall Injury Risk : Moderate to high injury risk Injury Moderate to High Risk Interventions : Patient room close to nurses station DEVINE Hx Falls Immediate/Within 3 Months : No Devine Secondary Diagnosis : Yes DEVINE Use of Ambulatory Aid : None DEVINE IV Therapy or IV Access : Yes Devine Gait/Transferring : Normal, bedrest, immobile Devine Mental Status : Oriented to own ability Devine Fall Risk Score : 35 DEVINE Fall Scale Risk Level : 25-45 Medium Risk [place] Fall Interventions : Adequate lighting, Bed in low position, Hourly comfort/safety rounds, Non-slip footwear, Personal items within reach, Reinforced to call for assistance before getting out of bed, Room free of clutter/spills, Upper side-rails up, Wheels locked, Wires/Cords secured Barriers to Learning : None evident Fall Risk Scale Calc Temp : 0 Chang Medrano, Signs Sales Representative-Student Nurse - 06/02/2021 15:42 EDT Health Histories Smoking Status : Former smoker, quit more than 30 days ago Smokeless Tobacco Status : Never Chang Medrano Signs Sales Representative-Student Nurse - 06/02/2021 15:42 EDT Social History (As Of: 06/02/2021 15:49:03 EDT) Tobacco: Last Used: quit smoking 2007. [...] Source : Stated Height Entry Format : [place] Height, Feet : 5 ft(Converted to: 152 cm, 60 Inch) Height, Inches : 9 Inch(Converted to: 0 ft 9 Inch, 22.86 cm) Clinical Height : 175.26 cm Weight Source : Bed scale Weight Entry Format : [place] Clinical Dosing Weight : 89.14 kg Weight, Pounds : 196.1 lb Body Surface Area (BSA) : 2.05 m2 Body Mass Index : 29 kg/m2 (HI) [place] Body Weight : 70 kg Chang Medrano, Signs Sales Representative-Student Nurse - 06/02/2021 15:42 EDT Infectious Disease History Has the patient ever been tested for COVID-19? : Yes, Patient stated results Negative Date of COVID-19 test known? : Yes Date of COVID-19 Test : 12/02/2020 EST Does patient have symptoms of COVID-19? : No COVID19 Screening : No Experiencing Infectious Disease Symptoms : No symptoms Physical contact outside [place] in the last 30 days : No Infectious Disease History : Chicken pox/Shingles, Mumps Tuberculosis Symptoms : None Chang Medrano, Signs Sales Representative-Student Nurse - 06/02/2021 15:42 EDT Influenza Vaccine Asmt, Adult Previous Vaccines from Immunization Schedule : Previous Vaccines and Immunizations tetanus/diphtheria/pertussis, acel(Tdap): 0.5 mL (11/04/19 21:11:00) Influenza Immunization, Current Season : Outside of influenza season Chang Medrano Signs Sales Representative-Student Nurse - 06/02/2021 15:42 EDT Pneumococcal Vaccine Previous Vaccines from Immunization Schedule : Previous Vaccines and Immunizations tetanus/diphtheria/pertussis, acel(Tdap): 0.5 mL (11/04/19 21:11:00) Pneumonia Immunization Received : Yes Chang Medrano Signs Sales Representative-Student Nurse - 06/02/2021 15:42 EDT Order Details Order Detail : N/A Patient Needs Meds Crushed/Liquid : No Chang Medrano Signs Sales Representative-Student Nurse - 06/02/2021 15:42 EDT Nutrition History Adaptive Feeding Equipment : Regular Oral Medication Administration : By mouth Eating Poorly Due to Decreased Appetite : No Unplanned Weight Loss in Past 3-6 Months : No Malnutrition Screening Tool Total(mal) : 0 Malnutrition Screening Tool Risk Level : Patient not at risk Chang Medrano Signs Sales Representative-Student Nurse - 06/02/2021 15:42 EDT [place] Suicide Severity Rating Scale (C-SSRS) CSSRS Past Month Wish to be : No CSSRS Past Month Suicidal Thoughts : No CSSRS Lifetime Suicide Behavior : No Suicide Severity Rating Score : 0 Suicide Severity Rating : No Additional Care Required at this time Chang Medrano Signs Sales Representative-Student Nurse - 06/02/2021 15:42 EDT Psychosocial History Chronic/Terminal Illness w/Freq Visits : No Do You Have a History of the Following? : Patient denies history Currently in Unsafe Situation : No Chang Medrano Signs Sales Representative-Student Nurse - 06/02/2021 15:42 EDT Sleep Apnea Risk Assmt Hx of [...] Sleep Apnea Risk Level Score : 3 Marcela, Latter Day B, Signs Sales Representative-Student Nurse - 06/02/2021 15:42 EDT Valuables and Belongings Valuables and Belongings : Clothing, Personal devices Clothing : Common streetwear Clothing Disposition : Bedside Personal Device Disposition : With patient Personal Devices : Glasses Chang Medrano, Signs Sales Representative-Student Nurse - 06/02/2021 15:42 EDT Electronically signed by [facility], [facility] Conversion Upper Inspector Cerner at 01/26/2023 8:56 PM CDT documented in this encounter Plan of Treatment Not on file documented as of this encounter Visit Diagnoses Not on filedocumented in this encounter
[2025-03-28 11:26] LABS: INR 3.68 (0.9-1.1); Prothrombin Time 37.1 seconds (10.1-12.5)
== END 2025-03-28 23:59 | disposition home or self-care (01) ==
LOC: LAB 10:34
PROVIDERS: PCP Internal Medicine; Visit Provider Internal Medicine
DX: Z79.01 Long term (current) use of anticoagulants (principal)
CPT/HCPCS: 36415; 85610

== ENCOUNTER 2025-04-10 11:01 | Outpatient (CLI) | payer MEDICARE, SELFPAY ==
--- OUTSIDE RECORDS SUMMARY | 2024-10-19 06:30 | XMS_ITS ---
Author Organization [facility] Address [facility] [facility] [address] [place] [phone] Care Team Providers Care Disciplinary Hearing Officer Name Role Phone Alexei Almodovar Primary Care Provider ALEXEI ALMODOVAR Unavailable Unavailable REASON FOR VISIT flu vaccine Encounters Encounter Location Date Provider Diagnosis [facility] [address] [place] [id number] 10/19/2024 Alexei Almodovar Plan Of Treatment No Information Progress Notes * SHIRA GARZADOB:1935 ( 89 yo M)Acc No.[id number]:10/19/2024 Patient: SHIRA LYONS Provider: Florinda Almodovar M.D. :1935 A ge:89 Y S ex:Male Date:10/19/2024 Address:[address] [place], [place] [id number] Subjective: * Chief Complaints: * 1 . Flu vaccine. * Medical History: Objective: * Vitals: Assessment: Plan: * Treatment: * Images: Billing Information: * Visit Code: * Procedure Codes: * Electronic signature of Kia Almodovar MD on 04/10/2025 at 11:03 AM EDT Sign off status: Pending * Provider: Florinda Almodovar M.D. Date: 10/19/2024 Generated for Syi ng/Falakeshag/eTransmitting on: 0 04/10/2025 11:03 AM EDT
--- OUTSIDE RECORDS SUMMARY | 2024-11-14 06:45 | XMS_ITS ---
Author Organization Sowmya Address 1210 [facility] [address] [place] [phone] Care Team Providers Care Refrigerator Repair Technician Name Role Phone Alexei Almodovar Primary [...] Encounter Location Date Provider Diagnosis Jose 1210 [facility] [address] [place] [phone] 11/14/2024 Alexei Almodovar Encounter for immunization Z23 Assessments Encounter Date Diagnosis (ICD Code) Assessment Notes Treatment Notes Treatment Clinical Notes Section Notes 11/14/2024 Encounter for immunization (ICD-10 - Z23) Plan Of Treatment No Information Progress Notes * ALEXANDRESHIRA EnamoradoDOB:1935 ( 89 yo M)Acc No.[id number]:11/14/2024 Patient: Kenny VERONIKASHIRA Enamorado Provider: Florinda Almodovar M.D. DOB:1935 A ge:89 Y S ex:Male Date:11/14/2024 Address:[address] [place] [address] Eddie [id number] Subjective: * Chief Complaints: * 1 . [...] Pending * Provider: Florinda Almodovar M.D. Date: 11/14/2024 Generated for Teodora rivera/Nita/Charles on: 04/10/2025 11:03 AM EDT
--- OUTSIDE RECORDS SUMMARY | 2024-12-13 12:00 | XMS_ITS ---
Author Organization [facility] Address [facility] [address] [place] [phone] Care Team Providers Care Silhouette Artist Name Role Phone Alexei Almodovar Primary Care Provider ALEXEI ALMODOVAR Unavailable Unavailable Romana Thompson Unavailable [phone] Allergies Allergen (clinical drug ingredient) Drug/Non Drug [...] Location Date Provider Diagnosis Jose [address] [facility] [address] [place] [phone] 12/13/2024 Romana Thompson Aortic valve replace d [...] * SHIRA GARZADOB:1935 ( 89 yo M)Acc No.[id number]:12/13/2024 Progress Notes Patient: SHIRA LYONS Provider: Romana Thompson M.D. :1935 A ge:89 Y S ex:Male Date:12/13/2024 Address:[address] [place] [address] [id number] Pcp:Alexei Almodovar Subjective: * Chief Complaints: * [...] age 85. Alcohol: no. 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 * Medications: T aking Aspirin 81 MG [...] G 2211 Complex e/[place], [address] [place], [address] PROTHROMBIN TIME, Modifiers: QW , 59454 CAPILLARY BLOOD DRAW, 67140 CBC WITH AUTO DIFF, 3074F SYST BP LT 130 MM HG, 3078F DIAST BP < 80 MM HG * Follow Up: w [facility] * Images: Billing Information: * Visit Code: 34008 Office Visit, Est Pt., Level 3. * Procedure Codes: G2211 Complex e/[place]. [address] [place]. [address] PROTHROMBIN TIME. Modifiers: QW 33263 CAPILLARY BLOOD DRAW. 28354 CBC WITH AUTO DIFF. 3074F SYST BP LT 130 MM HG. 3078F DIAST BP < 80 MM HG. * Electronic signature of Romana Thompson MD on 04/10/2025 at 11:03 AM EDT Sign off status: Pending * Provider: Romana Thompson M.D. Date: 0 12/13/2024 Generated for Printi nicole/Nita/eTransmitting on: 0 04/10/2025 11:03 AM EDT History and Physical Notes * HPI (History of Present Illness) Category Sub-Category Detail Notes Category Not es HPI Patient is here today for Mr. Santos mm currently takes Coumadin for aortic valve replacementand [...]
--- OUTSIDE RECORDS SUMMARY | 2025-04-10 11:04 | XMS_ITS | Patient Health Record ---
[facility] Address [address] [facility] [address] [place] [id number] Care Team Providers Care Cutting Machine Operator Name Role Phone Alexei Almodovar Primary Care Provider ALEXEI ALMODOVAR Unavailable Unavailable Romana Thompson Unavailable [phone] Allergies Allergen (clinical drug ingredient) Drug/Non Drug [...] - 38 plat 140 100 - 400 TEN-UTI panel Reviewed date:08/29/2024 01:20:38 PM Interpretation:sensitive Performing Lab: Notes/Report: sensitive TEN-UTI panel Reviewed date:08/29/2024 01:20:38 PM Interpretation:sensitive Performing Lab: Notes/Report: sensitive Urinalysis - Inhouse Reviewed date:08/23/2024 11:17:53 AM Interpretation: Performing Lab: Notes/Report: Color/Clarity dark yellow/clear Leuk 1+ Nitrite Pos Urobili 3.2 Protein Neg pH 5.5 Blood 2+ Sp. Gr. 1.020 Ketone Neg Bili Neg Gluc Neg Reason For Referral No Information Medications Medication [...] a day; Duration: 30 day(s) 08/23/2024 Active Metoprolol Succinate ER 25 MG 1 tab(s) orally once a day Active Lisinopril 5 MG 1 tab(s) orally once a day Active Immunizations Vaccine Route Administration Date Status Comme nts xFluzone High Dose-private (65yr&older) Unknown 07/26/2016 Administered xFluzone High Dose-private (65yr&older) Unknown 07/31/2018 Administered xFluzone High Dose-private (65yr&older) Unknown 08/03/2019 Administered xFluzone (6mos and older)-trivalent Unknown 09/04/2013 Administered Tetanus Tdap-Adacel (over 7yrs) Unknown 11/04/2019 Administered Shingrix Unknown 05/08/2020 Administered Shingrix Unknown 08/11/2020 Administered Prevnar (PCV13) Unknown 07/26/2016 Administered Fluzone High Dose (65yr and older) Unknown 07/02/2020 Administered Fluzone High Dose (65yr and older) Unknown 07/22/2021 Administered Fluzone High Dose (65yr and older) IM Intramuscular 2022 Administered Fluzone High Dose (65yr and older) Unknown 2022 Administered Fluzone High Dose (65yr and older) IM Intramuscular 11/14/2024 Administered COVID 19 Moderna Unknown 11/19/2020 Administered COVID 19 Moderna Unknown 12/17/2020 Administered COVID 19 Moderna Unknown 08/05/2021 Administered Problems Problem Type SNOMED Code ICD Code Onset Dates Problem Status W/U Status Risk Notes Problem Atherosclerotic hear t disease of [place] coronary artery without angina pectoris (038982303241026) Coronary artery disease involving [place] coronary artery of [place] heart without angina pectoris (I25.10) Active confirmed Problem Iron deficiency anemia (46913851) Iron deficiency anemia, unspecified iron deficiency anemia type (D50.9) Active confirmed Problem Pure hypercholesterolemia (490026083) Pure hypercholesterolemia (E78.00) Active confirmed Problem History of heart valve repair with prosthesis (662487210828640) 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 Problem Primary hypertension (43128942) Primary hypertension (I10) Active confirmed Problem Chronic kidney disease stage 3A (disorder) (311046555) Stage 3a chronic kidney disease (CKD) (N18.31) Active confirmed Vital Signs Heart Rate 60 /min 12/13/2024 Blood pressure diastolic 60 mm Hg 12/13/2024 Height 69 in 12/13/2024 Blood pressure systolic 120 mm Hg 12/13/2024 Weight 202.2 lbs 12/13/2024 BMI 29.86 kg/m2 12/13/2024 Encounters Encounter Location Date Provider Diagnosis [facility] [address] [place] [id number] 08/23/2024 Alexei Nishi Acute UTI N39.0 and Intermittent diarrhea R19.7 [facility] [address] [place], [place] [id number] 11/14/2024 Alexei Hamilton [facility] [address] [place] [id number] 12/13/2024 R Newton Thompson Aortic valve replace [...] Date MEDICARE PART [place] [address] [address] [place] [id number] [id number] SHIRA GARZA Self - patient is the insured [facility] [employer] [address] [place] [id number] KAYLA SHIRA Self - patient is the insured Medical (General) History Medical History History ICD Code Coronary Artery Disease Hypertension Hyperlipidemia Aortic Stenosis, s/p Tissue Valve Replac maximo, 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
[2025-04-10 11:37] LABS: INR 2.08 (0.9-1.1); Prothrombin Time 21.9 seconds (10.1-12.5)
== END 2025-04-10 23:59 | disposition home or self-care (01) ==
LOC: LAB 11:02
PROVIDERS: PCP Family Medicine; Visit Provider Internal Medicine
DX: Z79.01 Long term (current) use of anticoagulants (principal)
CPT/HCPCS: 36415; 85610

== ENCOUNTER 2025-05-03 13:42 | Outpatient (CLI) | payer MEDICARE, SELFPAY ==
--- OUTSIDE RECORDS SUMMARY | 2024-10-19 06:30 | XMS_ITS ---
Author Organization [facility] Address [facility] [address] [place] [phone] Care Team Providers Care Gate Attendant Name Role Phone Alexei Almodovar Primary Care Provider ALEXEI ALMODOVAR Unavailable Unavailable REASON FOR VISIT flu vaccine Encounters Encounter Location Date Provider Diagnosis [facility] [address] [place] [phone] 10/19/2024 Alexei Almodovar Plan Of Treatment Next Appt Details Provider Name:Alexei Vergara ry, 06/19/2025 11:00:00 AM, [address], [place], [phone], Progress Notes * SHIRA GARZADOB:1935 ( 89 yo M)Acc No.[id number]:10/19/2024 Patient: SHIRA LYONS Provider: Florinda Almodovar M.D. :1935 A ge:89 Y S ex:Male Date:10/19/2024 Address:[address] [place], [place] [id number] Subjective: * Chief Complaints: * 1 . Flu vaccine. * Medical History: Objective: * Vitals: Assessment: Plan: * Treatment: * Images: Billing Information: * Visit Code: * Procedure Codes: * Electronic signature of Kia Almodovar MD on 05/03/2025 at 01:46 PM EDT Sign off status: Pending * Provider: Florinda Almodovar M.D. Date: 0 10/19/2024 Generated for Teodora rivera/Nita/Kaushikitting on: 0 05/03/2025 01:46 PM EDT
--- OUTSIDE RECORDS SUMMARY | 2024-11-14 06:45 | XMS_ITS ---
Author Organization Jose Address [facility]10 [facility] [address] [place] [id number] Care Team Providers Care School Psychology Specialist Name Role Phone Alexei Almodovar Primary Care [...] Provider Diagnosis Jose [address] [facility] [address] [place] [phone] 11/14/2024 Alexei Almodovar Encounter for immunization Z23 Assessments Encounter Date Diagnosis (ICD Code) Assessment Notes Treatment Notes Treatment Clinical Notes Section Notes 11/14/2024 Encounter for immunization (ICD-10 - Z23) Plan Of Treatment Next Appt Details Provider Name:Alexei solo, 06/19/2025 11:00:00 AM, [address] [facility], [address], [place], [phone], Progress Notes * SYLVIE GARZA:1935 ( 89 yo M)Acc No.[id number]:11/14/2024 Patient: SHIRA LYONS Provider: Florinda Almodovar M.D. :1935 A ge:89 Y S ex:Male Date:11/14/2024 Address:[address] [place], [place] [address]Eddie Cox [id number] Subjective: * Chief Complaints: * 1 . [...] 11/14/2024 Generated for Teodora rivera/Nita/Charles on: 0 05/03/2025 01:46 PM EDT
--- OUTSIDE RECORDS SUMMARY | 2024-12-13 12:00 | XMS_ITS ---
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 Vital Signs Blood pressure systolic 120 mm Hg 12/14/19 25 Blood pressure diastolic 60 mm Hg 025 Heart Rate 60 /min 12/13/2024 Height 69 in 12/13/2024 Weight 202.2 lbs 12/13/2024 BMI 29.86 kg/m2 12/13/2024 Encounters Encounter Location Date Provider Diagnosis Jose [address] [facility] [address] [place] [phone] 12/13/2024 Romana Thompson Aortic valve replace d [...] Follow Up: with Coumadin Cli yamilex, Reason: Provider Name:Alexei Vergara ry, 06/19/2025 11:00:00 AM, [address] [facility], [address], [place], [phone], Progress Notes * SHIRA GARZADOB:1935 ( 89 yo M)Acc No.[id number]:12/13/2024 Progress Notes Patient: Kenny VERONIKASHIRA Enamorado Provider: Romana Thompson M.D. :1935 A ge:89 Y S ex:Male Date:12/13/2024 Address:[address] [place] [address] [id number] Pcp:Alexei Almodovar Subjective: * Chief Complaints: * [...] age 85. Alcohol: no. 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 * Medications: T aking Aspirin 81 [...] G 2211 Complex e/[place], [address] [place], [address] PROTHROMBIN TIME, Modifiers: QW , 08112 CAPILLARY BLOOD DRAW, 27155 CBC WITH AUTO DIFF, 3074F SYST BP LT 130 MM HG, 3078F DIAST BP < 80 MM HG * Follow Up: w [facility] * Images: Billing Information: * Visit Code: 92613 Office Visit, Est Pt., Level 3. * Procedure Codes: G2211 Complex e/[place] [address] [place]. [address] PROTHROMBIN TIME. Modifiers: QW 46885 CAPILLARY BLOOD DRAW. 79905 CBC WITH AUTO DIFF. 3074F SYST BP LT 130 MM HG. 3078F DIAST BP < 80 MM HG. * Electronic signature of Romana Thompson MD on 05/03/2025 at 01:46 PM EDT Sign off status: Pending * Provider: Romana Thompson M.D. Date: 0 12/13/2024 Generated for Teodora rivera/Nita/Kaushikitting on: 0 05/03/2025 01:46 PM EDT History and Physical Notes * HPI (History [...]
--- OUTSIDE RECORDS SUMMARY | 2025-05-03 13:46 | XMS_ITS | Data Portability ---
Author Organization [facility] Address [address] [place] [address] Care Team Providers [facility] Former Name Role Phone SHRUTHI TOURE Patient Safety Manager ABEBA HOOKS [employer] Consultant ALEXEI FLORES Primary Care Provider Assessment Encounter Date Assessment Date Assessment LastModified by Organization Details LastModified Time 11/17/2023 11/17/2023 Impression: 1. Coronary Artery Disease s/p remote 5v CABG in 2007: Chronic problem, stable Admission 05/2021 with NSTEMI (probable type 1 event the evening prior) with peak Troponin 2.650. No evidence of LV dysfunction or ischemia on SPECT 06/22/2021. 2. 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 05/2021: Developed TIA and elevated TAVR gradients (concerning for repeat leaflet thrombosis). 10/23/2021: ECHO: AV Peak velocity 1.96 m/s, Mean gradient 8 mmHg. 3. 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 12/06/2019: His device was programmed to VVI 12/01/2022: Reprogrammed from VVI 30 to DDDR 50 4. History of Atrial flutter s/p CTI Nov 2018 5. Iron deficiency anemia (Dr. Flores) PLAN: Mr. Bustamante appears to be stable from a cardiovascular perspective. He underwent echo imaging of his prosthetic valve today. I reviewed his echo findings with him and his today. LV function is normal, and his aortic bioprosthetic is functioning appropriately. Reassurance was provided. I did not recommended making any changes to his current medications. I reminded him that antibiotic prophylaxis is recommended prior to any invasive procedures (including dental work). We discussed that he will need to continue with periodic echo surveillance of the bioprosthetic valve. Following TAVR, guidelines recommend a post-implantation TTE prior to hospital discharge, at 6 months and at 1 year, and then annually therafter. RTC: We will plan to see him back in the office in about 6 months, or sooner if needed. Testing today: Check CBC, BMP, TSH and iron panel [email or web address] Not available 11/17/2023 20:07:04 12/19/2023 12/19/2023 f/u annual FSE [email or web address] Not availabl e 12/19/2023 07:08:34 05/23/2024 05/23/2024 Impression: 1. Coronary Artery Disease s/p remote 5v CABG in 2007: Chronic problem, stable Admission 05/2021 with NSTEMI (probable type 1 event the evening prior) with peak Troponin 2.650. No evidence of LV dysfunction or ischemia on SPECT 06/22/2021. 2. 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 05/2021: Developed TIA and elevated TAVR gradients (concerning for repeat leaflet thrombosis). 10/23/2021: ECHO: AV Peak velocity 1.96 m/s, Mean gradient 8 mmHg. 3. Transient Complete heart block following [...] sooner if needed. Testing at next visit: In-office [place] rail filler check. [email or web address] Not available 05/23/2024 21:19:51 02/08/2025 02/08/2025 Impression: 1. Coronary Artery Disease s/p remote 5v CABG in 2007: Chronic problem, stable Admission 05/2021 with NSTEMI (probable type 1 event the evening prior) with peak Troponin 2.650. No evidence of LV dysfunction or ischemia on SPECT 06/22/2021. 2. 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 07/2020: Developed TAVR leaflet [...] next visit: Transthoracic echocardiogram to assess AVR. Not available 02/08/2025 12:33:09 Plan of Treatment [...] programmi ng, multiple lead (PROC) 2024 025 [facility], [address] [place] [address] , [facility], [place], [address], 02/08/2025 14:10:20 Surgeries None recorded. Imaging None recorded. Medication Orders None recorded. Patient TargetsNo targets recorded. Patient Instructions Encounter Date Encounter Id Patient Instructions Last Modified By Organization Details Last Modified Time 11/17/2023 [id number] Body Mass Index: Care Instructions-LC [email or web address] Not available 11/17/2023 20:07:14 12/19/2023 [id number] If any lesions change, or if any other new or symptomatic lesions occur, patient understands to return to the clinic for further evaluation Discussed sun precautions; SPF 30+ [email or web address] Not available 12/19/2023 07:08:34 05/23/2024 [id number] Body Mass Index: Care Instructions-LC [email or web address] Not available 05/23/2024 21:20:02 02/08/2025 [id number] Body Mass Index: Care Instructions- [email or web address] Not available 02/08/2025 12:33:28 Reason for Referral None Reported. Results Created Date Observation Date Name Description Value Unit Range Abnormal Flag Note LastModifiedBy Organization Detail LastModifiedTime 11/17/19 24 11/17/2023 COMPL ETE BLOOD COUNT white blood cells 7.4 10*3/ uL 3.8-10 .8 normal Not Available [facility] [address] [place] [address], [phone], 11/17/2023 15:07:38 11/17/19 24 11/17/2023 COMPL ETE BLOOD COUNT red blood cells 4.65 10*6/ uL 4.20-5 .80 normal Not Available [facility] [address] [place] [address], [phone], 11/17/2023 15:07:38 11/17/19 24 11/17/2023 COMPL ETE BLOOD COUNT hemoglobin 14.2 g/dL 14.0-1 8.0 normal Not Available [facility] [address] [place] [address], [address], 11/17/2023 15:07:38 11/17/19 24 11/17/2023 COMPL ETE BLOOD COUNT hematocrit 41.8 % 40.0-5 2.0 normal Not Available [facility] [address] [place] [address], [address], 11/17/2023 15:07:38 11/17/19 24 11/17/2023 COMPL ETE BLOOD COUNT MCV 90 fL 80-100 normal Not Available [facility] [address] [place] [address], [address], 11/17/2023 15:07:38 11/17/19 24 11/17/2023 COMPL ETE BLOOD COUNT MCH 31 pg 26-35 normal Not Available [facility] [address] [place] [address], [address], 11/17/2023 15:07:38 11/17/19 24 11/17/2023 COMPL ETE BLOOD COUNT MCHC 34 g/dL 32-36 normal Not Available [facility] [address] [place] [address], [address], 11/17/2023 15:07:38 11/17/19 24 11/17/2023 COMPL ETE BLOOD COUNT RDW 15.1 % 11.0-1 5.0 high Not Available [facility] [address] [place] [address], [address], 11/17/2023 15:07:38 11/17/19 24 11/17/2023 COMPL ETE BLOOD COUNT MPV 10.7 fL 6.2-10 .5 high Not Available [facility] [address] [place] [address], [address], 11/17/2023 15:07:38 11/17/19 24 11/17/2023 COMPL ETE BLOOD COUNT platelet count 172 10*3/ uL 150-40 0 normal Not Available [facility] [address] [place] [address], [address], 11/17/2023 15:07:38 11/17/19 24 11/17/2023 COMPL ETE BLOOD COUNT neutrophil,a bsolute 4.7 10*3/ uL 1.6-8. 4 normal Not Available [facility] [address] [place] [address], [address], 11/17/2023 15:07:38 11/17/19 24 11/17/2023 COMPL ETE BLOOD COUNT lymphocyte,a bsolute 1.8 10*3/ uL 0.4-5. 1 normal Not Available [facility] [address] [place] [address], [address], 11/17/2023 15:07:38 11/17/19 24 11/17/2023 COMPL ETE BLOOD COUNT monocyte,abs olute 0.8 10*3/ uL 0.0-1. 2 normal Not Available [facility] [address] [place] [address], [address], 11/17/2023 15:07:38 11/17/19 24 11/17/2023 COMPL ETE BLOOD COUNT eosinophil,a bsolute 0.0 10*3/ uL 0.0-0. 8 normal Not Available [facility] [address] [place] [address], [address], 11/17/2023 15:07:38 11/17/19 24 11/17/2023 COMPL ETE BLOOD COUNT basophil,abs olute 0.1 10*3/ uL 0.0-0. 3 normal Not Available [facility] [address] [place] [address], [address], 11/17/2023 15:07:38 11/17/19 24 11/17/2023 COMPL ETE BLOOD COUNT % neutrophils 63.6 % 42.0-7 8.0 normal Not Available [facility] [address] [place] [address], [address], 11/17/2023 15:07:38 11/17/19 24 11/17/2023 COMPL ETE BLOOD COUNT % lymphocytes 24.5 % 11.0-4 7.0 normal Not Available [facility] [address] [place] [address], [address], 11/17/2023 15:07:38 11/17/19 24 11/17/2023 COMPL ETE BLOOD COUNT % monocytes 10.2 % 0.0-11 .0 normal Not Available [facility] [address] [place] [address], [address], 11/17/2023 15:07:38 11/17/19 24 11/17/2023 COMPL ETE BLOOD COUNT % eosinophils 0.6 % 0.0-7. 0 normal Not Available [facility] [address] [place] [address], [address], 11/17/2023 15:07:38 11/17/19 24 11/17/2023 COMPL ETE BLOOD COUNT % basophils 1.1 % 0.0-3. 0 normal Not Available [facility] [address] [place] [address], [address], 11/17/2023 15:07:38 11/17/19 24 11/17/2023 COMPL ETE BLOOD COUNT nucleated red cells 0.1 % 0.0-0. 9 normal Not Available [facility] [address] [place] [address], [address], 11/17/2023 15:07:38 11/17/19 24 11/17/2023 COMPL ETE BLOOD COUNT nucleated RBCs, absolute 0.01 10*3/ uL not estab. normal Not Available [facility] [address] [place] [address], [address], 11/17/2023 15:07:38 11/17/19 24 11/17/2023 TSH TSH 1.270 u[IU] /mL 0.270- 4.200 normal Not Available [facility] [address] [place] [address], [address], 11/17/2023 15:28:32 11/17/19 24 11/17/2023 BASIC METAB OLIC PANEL glucose 127 mg/dL 74-100 high Not Available [facility] [address] [place] [address], [address], 11/17/2023 15:37:48 11/17/19 24 11/17/2023 BASIC METAB OLIC PANEL blood urea nitrogen 38 mg/dL 6-20 high Not Available [facility] [address] [place] [address], [address], 11/17/2023 15:37:48 11/17/19 24 11/17/2023 BASIC METAB OLIC PANEL creatinine 1.39 mg/dL 0.70-1 .28 high Not Available [facility] [address] [place] [address], [address], 11/17/2023 15:37:48 11/17/19 24 11/17/2023 BASIC METAB OLIC PANEL BUN/creatini ne ratio 27 (calc ) 10-20 high Not Available [facility] [address] [place] [address], [address], 11/17/2023 15:37:48 11/17/19 24 11/17/2023 BASIC METAB OLIC PANEL sodium 141 mmol/ L 136-14 5 normal Not Available [facility] [address] [place] [address], [address], 11/17/2023 15:37:48 11/17/19 24 11/17/2023 BASIC METAB OLIC PANEL potassium 4.1 mmol/ L 3.4-5. 0 normal Not Available [facility] [address] [place] [address], [address], 11/17/2023 15:37:48 11/17/19 24 11/17/2023 BASIC METAB OLIC PANEL chloride 103 mmol/ L 98-107 normal Not Available [facility] [address] [place] [address], [address], 11/17/2023 15:37:48 11/17/19 24 11/17/2023 BASIC METAB OLIC PANEL carbon dioxide 27 mmol/ L 22-31 normal Not Available [facility] [address] [place], [address], 11/17/2023 15:37:48 11/17/19 24 11/17/2023 BASIC METAB OLIC PANEL anion gap 11 (calc ) 7-25 normal Not Available [facility] [address] [place] [address], [address], 11/17/2023 15:37:48 11/17/19 24 11/17/2023 BASIC METAB OLIC PANEL calcium 9.3 mg/dL 8.6-10 .2 normal Not Available [facility] [address] [place], [address], 11/17/2023 15:37:48 11/17/19 24 11/17/2023 BASIC METAB OLIC PANEL GFR 49 >= 60 abnormal NOT E New calcu latio n for GFR (CKD- EPI 2020) is formu lated witho ut race adjus tment facto rs at the recom menda tion of the [employer] at[employer] and [place] ty of Nephr ology . This calcu latio n has not been valid ated in pregn ant women . For mihir harrell nts refer to https ://gayla pillai.o geo/pr cristiano draper s/KDO QI/gf r_cal culat orPed Not Available [facility] [address] [place] [address], [address], 11/17/2023 15:37:48 11/17/19 24 11/17/2023 IRON PANEL -TOTA L AND TIBC iron 78 ug/dL 59-158 normal Not Available [facility] [address] [place] [address], [address], 11/17/2023 15:37:50 11/17/19 24 11/17/2023 IRON PANEL -TOTA L AND TIBC total iron binding cap. 293 ug/dL _(jeet c) 250-45 0 normal Not Available [facility] [address] [place] [address], [address], 11/17/2023 15:37:50 11/17/19 24 11/17/2023 IRON PANEL -TOTA L AND TIBC unsat.iron binding cap. 215 ug/dL 112-34 7 normal Not Available [facility] [address] [place] [address], [address], 11/17/2023 15:37:50 11/17/19 24 11/17/2023 IRON PANEL -TOTA L AND TIBC % saturation 27 %_(ca lc) 20-50 normal Not Available [facility] [address] [place] [address], [address], 11/17/2023 15:37:50 02/09/20 25 02/08/2025 COMPL ETE BLOOD COUNT white blood cells 4.4 10*3/ uL 3.8-10 .8 normal Not Available [facility] [address] [place] [address], [address], 02/08/2025 11:46:47 02/09/20 25 02/08/2025 COMPL ETE BLOOD COUNT red blood cells 3.99 10*6/ uL 4.20-5 .80 low Not Available [facility] [address] [place] [address], [address], 02/08/2025 11:46:47 02/09/20 25 02/08/2025 COMPL ETE BLOOD COUNT hemoglobin 11.5 g/dL 14.0-1 8.0 low Not Available [facility] [address] [place] [address], [address], 02/08/2025 11:46:47 02/09/20 25 02/08/2025 COMPL ETE BLOOD COUNT hematocrit 35.0 % 40.0-5 2.0 low Not Available [facility] [address] [place] [address], [address], 02/08/2025 11:46:47 02/09/20 25 02/08/2025 COMPL ETE BLOOD COUNT MCV 88 fL 80-100 normal Not Available [facility] [address] [place] [address], [address], 02/08/2025 11:46:47 02/09/20 25 02/08/2025 COMPL ETE BLOOD COUNT MCH 29 pg 26-35 normal Not Available [facility] [address] [place] [address], [address], 02/08/2025 11:46:47 02/09/20 25 02/08/2025 COMPL ETE BLOOD COUNT MCHC 33 g/dL 32-36 normal Not Available [facility] [address] [place] [address], [address], 02/08/2025 11:46:47 02/09/20 25 02/08/2025 COMPL ETE BLOOD COUNT RDW 15.7 % 11.0-1 5.0 high Not Available [facility] [address] [place] [address], [address], 02/08/2025 11:46:47 02/09/20 25 02/08/2025 COMPL ETE BLOOD COUNT MPV 9.9 fL 6.2-10 .5 normal Not Available [facility] [address] [place] [address], [address], 02/08/2025 11:46:47 02/09/20 25 02/08/2025 COMPL ETE BLOOD COUNT platelet count 175 10*3/ uL 150-40 0 normal Not Available [facility] [address] [place] [address], [address], 02/08/2025 11:46:47 02/09/20 25 02/08/2025 COMPL ETE BLOOD COUNT neutrophil,a bsolute 2.4 10*3/ uL 1.6-8. 4 normal Not Available [facility] [address] [place] [address], [address], 02/08/2025 11:46:47 02/09/20 25 02/08/2025 COMPL ETE BLOOD COUNT lymphocyte,a bsolute 1.4 10*3/ uL 0.4-5. 1 normal Not Available [facility] [address] [place] [address], [address], 02/08/2025 11:46:47 02/09/20 25 02/08/2025 COMPL ETE BLOOD COUNT monocyte,abs olute 0.5 10*3/ uL 0.0-1. 2 normal Not Available [facility] [address] [place] [address], [address], 02/08/2025 11:46:47 02/09/20 25 02/08/2025 COMPL ETE BLOOD COUNT eosinophil,a bsolute 0.0 10*3/ uL 0.0-0. 8 normal Not Available [facility] [address] [place] [address], [address], 02/08/2025 11:46:47 02/09/20 25 02/08/2025 COMPL ETE BLOOD COUNT basophil,abs olute 0.0 10*3/ uL 0.0-0. 3 normal Not Available [facility] [address] [place] [address], [address], 02/08/2025 11:46:47 02/09/20 25 02/08/2025 COMPL ETE BLOOD COUNT % neutrophils 55.5 % 42.0-7 8.0 normal Not Available [facility] [address] [place] [address], [address], 02/08/2025 11:46:47 02/09/20 25 02/08/2025 COMPL ETE BLOOD COUNT % lymphocytes 32.3 % 11.0-4 7.0 normal Not Available [facility] [address] [place] [address], [address], 02/08/2025 11:46:47 02/09/20 25 02/08/2025 COMPL ETE BLOOD COUNT % monocytes 10.5 % 0.0-11 .0 normal Not Available [facility] [address] [place] [address], [address], 02/08/2025 11:46:47 02/09/20 25 02/08/2025 COMPL ETE BLOOD COUNT % eosinophils 0.8 % 0.0-7. 0 normal Not Available [facility] [address] [place] [address], [address], 02/08/2025 11:46:47 02/09/20 25 02/08/2025 COMPL ETE BLOOD COUNT % basophils 0.9 % 0.0-3. 0 normal Not Available [facility] [address] [place] [address], [address], 02/08/2025 11:46:47 02/09/20 25 02/08/2025 COMPL ETE BLOOD COUNT nucleated red cells 0.1 % 0.0-0. 9 normal Not Available [facility] [address] [place] [address], [address], 02/08/2025 11:46:47 02/09/20 25 02/08/2025 COMPL ETE BLOOD COUNT nucleated RBCs, absolute 0.00 10*3/ uL not estab. normal Not Available [facility] [address] [place] [address], [address], 02/08/2025 11:46:47 02/09/20 25 02/08/2025 GLYCO HEMOG LOBIN A1C glyco HGB A1C 6.4 % 0.0-5. 6 high Not Available [facility] [address] [place] [address], [address], 02/08/2025 11:50:52 02/09/20 25 02/08/2025 GLYCO HEMOG LOBIN A1C estimated avg. glucose 137 mg/dL _(jeet c) normal A1c value s betwe en 5.7% to 6.4% indic ate predi abete s. Resul ts 6.5% or great er is diagn ostic of diabe trina. Ameri can Diabe trina Ass[employer] iatio n (diab etes. org) Not Available [facility] [address] [place] [address], [address], 02/08/2025 11:50:52 02/09/20 25 02/08/2025 IRON iron 51 ug/dL 59-158 low Not Available [facility] [address] [place] [address], [address], 02/08/2025 15:38:17 02/09/20 25 02/08/2025 BASIC METAB OLIC PANEL glucose 123 mg/dL 74-100 high Not Available [facility] [address] [place] [address], [address], 02/08/2025 15:38:19 02/09/20 25 02/08/2025 BASIC METAB OLIC PANEL blood urea nitrogen 30 mg/dL 6-20 high Not Available [facility] [address] [place] [address], [address], 02/08/2025 15:38:19 02/09/20 25 02/08/2025 BASIC METAB OLIC PANEL creatinine 1.32 mg/dL 0.70-1 .20 high Not Available [facility] [address] [place] [address], [address], 02/08/2025 15:38:19 02/09/20 25 02/08/2025 BASIC METAB OLIC PANEL BUN/creatini ne ratio 23 (calc ) 10-20 high Not Available [facility] [address] [place] [address], [address], 02/08/2025 15:38:19 02/09/20 25 02/08/2025 BASIC METAB OLIC PANEL sodium 139 mmol/ L 136-14 5 normal Not Available [facility] [address] [place] [address], [address], 02/08/2025 15:38:19 02/09/20 25 02/08/2025 BASIC METAB OLIC PANEL potassium 3.9 mmol/ L 3.4-5. 0 normal Not Available [facility] [address] [place], [address], 02/08/2025 15:38:19 02/09/20 25 02/08/2025 BASIC METAB OLIC PANEL chloride 102 mmol/ L 98-107 normal Not Available [facility] [address] [place] [address], [address], 02/08/2025 15:38:19 02/09/20 25 02/08/2025 BASIC METAB OLIC PANEL carbon dioxide 26 mmol/ L 22-31 normal Not Available [facility] [address] [place] [address], [address], 02/08/2025 15:38:19 02/09/20 25 02/08/2025 BASIC METAB OLIC PANEL anion gap 11 (calc ) 7-25 normal Not Available [facility] [address] [place] [address], [address], 02/08/2025 15:38:19 02/09/20 25 02/08/2025 BASIC METAB OLIC PANEL calcium 9.7 mg/dL 8.6-10 .2 normal Not Available [facility] [address] [place] [address], [address], 02/08/2025 15:38:19 02/09/20 25 02/08/2025 BASIC METAB OLIC PANEL GFR 52 >= 60 abnormal NOT E New calcu latio n for GFR (CKD- EPI 2020) is formu lated witho ut race adjus tment facto rs at the [facility] menda tion of the [employer] ation and [employer] of Nephr ology . This calcu latio n has not been valid ated in pregn ant women . For pedia caridad patie nts refer to https ://gayla pillai.shanti guardado/pr cristiano draper s/KDO QI/gf r_cal culat orPed Not Available [facility] [address] [place] [address], [address], 02/08/2025 15:38:19 02/09/20 25 02/08/2025 TSH TSH 1.910 u[IU] /mL 0.270- 4.200 normal Not Available [facility] [address] [place], [address], 02/08/2025 15:40:06 10/24/19 24 10/24/2023 remot e devic e inter rogat ion (PROC ) No observ ation record ed. [email or web address] Not Available 2023 19:35:00 10/31/19 24 10/29/2023 remot e devic e inter rogat ion (PROC ) No observ ation record ed. [email or web address] Not Available 2023 18:49:03 11/17/19 24 11/17/2023 US, doppl er echoc ardio gram, w/ color flow No observ ation record ed. [email or web address] [place] [address] [facility] [address] [place] [address] , [place], [address], 11/17/2023 15:50:04 01/23/20 24 01/23/2024 remot e devic e inter rogat ion (PROC ) No observ ation record ed. [email or web address] Not Available 2023 18:09:11 02/27/20 24 02/23/2024 remot e devic e inter rogat ion (PROC ) No observ ation record ed. [email or web address] Not Available 2023 11:16:37 03/26/20 24 03/25/2024 remot e devic e inter rogat ion (PROC ) No observ ation record ed. [email or web address] Not Available 2023 22:45:38 04/18/20 24 04/18/2024 remot e devic e inter rogat ion (PROC ) No observ ation record ed. [email or web address] Not Available 2023 14:42:43 04/26/20 24 04/25/2024 remot e devic e inter rogat ion (PROC ) No observ ation record ed. [email or web address] Not Available 2023 01:52:31 05/31/20 24 05/31/2024 remot e devic e inter rogat ion (PROC ) No observ ation record ed. [email or web address] Not Available 2023 14:50:36 06/27/20 24 06/26/2024 remot e devic e inter rogat ion (PROC ) No observ ation record ed. [email or web address] Not Available 2023 06:39:48 07/27/20 24 07/27/2024 remot e devic e inter rogat ion (PROC ) No observ ation record ed. [email or web address] Not Available 2023 15:32:19 08/27/20 24 08/27/2024 remot e devic e inter rogat ion (PROC ) No observ ation record ed. [email or web address] Not Available 2023 13:13:38 09/27/20 24 09/27/2024 remot e devic e inter rogat ion (PROC ) No observ ation record ed. [email or web address] Not Available 2023 13:52:19 10/29/19 25 10/28/2024 remot e devic e inter rogat ion (PROC ) No observ ation record ed. [email or web address] Not Available 2024 09:09:47 11/26/19 25 11/26/2024 remot e devic e inter rogat ion (PROC ) No observ ation record ed. [email or web address] Not Available 2024 19:08:19 11/28/19 25 11/28/2024 remot e devic e inter rogat ion (PROC ) No observ ation record ed. [email or web address] Not Available 2024 17:45:36 01/01/20 25 12/29/2024 remot e devic e inter rogat ion (PROC ) No observ ation record ed. [email or web address] Not Available 2024 18:22:12 01/30/20 25 01/29/2025 remot e devic e [...] record ed. [email or web address] Not Available 2024 08:39:26 04/01/20 25 04/01/2025 remot e devic e inter rogat ion (PROC ) No observ ation record ed. [email or web address] Not Available 2024 21:08:42 04/22/20 25 04/18/2025 remot e devic e inter rogat ion (PROC ) No observ ation record ed. [email or web address] Not Available 2024 08:34:11 04/26/20 25 04/26/2025 remot e devic e inter rogat ion (PROC ) No observ ation record ed. [email or web address] Not Available 2024 10:39:03 05/02/20 25 05/02/2025 remot e devic e inter rogat ion (PROC ) No observ ation record ed. [email or web address] Not Available 2024 11:55:32 Result Notes None recorded. 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 From Automate d Load;Pro vider: Andrew Henriquez Jr;St atus: Active Charisma Butt [facility] 0 09:34:57 Right bundle branch block 29296167 Completed 201512/17/2019 From Automate d Load;Pro vider: Lacie Easley;Sta tus: Active BLANK HUGHES MD [address] [place] [address], [phone], [facility] 0 08:49:09 Aortic stenosis , non-rheu matic 218059682 Active 2015 From Automate d Load;Pro vider: Lacie Easley;Sta tus: Active Charisma Butt [facility] 0 09:34:57 Injury of lower leg 126535892 Active 2015 From Automate d Load;Pro vider: Andrew Henriquez Jr;St atus: Active Charisma Butt [facility] 0 09:34:57 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 From Automate d Load;Pro vider: Bernice Cristina ;Status: Active Charisma Butt [facility] 0 09:34:57 Aortic valve disorder 4578558 Completed 201511/05/2018 From Automate d Load;Pro vider: Lacie Easley;Sta tus: Active BLANK HUGHES MD [address] [place] [address], [address], [facility] 9 11:44:42 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 Charisma Butt [facility] 0 09:34:57 Benign hyperten twyla 89582443 Active 2016 Charisma Butt [facility] 0 09:34:57 Hyperlip idemia 04596916 Active 2016 KARON CALDERA MD [address] [place] [address], [phone] 1, [facility] 7 12:17:30 History of polyp of colon 255341219 Active 2016 Charisma Butt [facility] 0 09:34:57 Paroxysm al atrial fibrilla tion 971242854 Completed 201611/05/2018 Post CABG Amio Rx 2 BLANK HUGHES MD [address] [place] [address], [address], [facility] 9 11:44:52 Long-ter m drug therapy Active 2016 Flecaini de [facility] 0 09:34:57 Coronary artery bypass graft Completed 201811/06/20182007 BLANK HUGHES MD [address] [place] [address], [address] 1, [facility] 9 09:40:49 Atrial flutter 5866311 Active 2018 BLANK HUGHES MD [address] [place] [address], [address] 1, [facility] 9 11:43:42 Atrial fibrilla tion and flutter 797969831 Active 2018 post CABG; Amio Rx 2 Charisma Butt [facility] 0 09:34:57 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 [facility] 0 09:34:57 Anticoag ulant therapy Active 2018 [facility] 0 09:34:57 EKG: right bundle branch block 986635651 Completed 201812/17/2019 [place] [address] [place] [address], [phone], [facility] 0 12:29:00 Adult health examinat ion Active 2018 [facility] 0 09:34:57 Stitch infectio n 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 2019 [facility] 0 09:34:57 Right bundle branch block AND left anterior fascicul ar block 34413075 Active 2019 [facility] 0 09:34:57 Biventri cular cardiac pacemake r present 18221714985 105 Active 2019 [facility] 0 09:34:57 History of aortic valve replacem ent 57670298517 00 Active 2019 [place] [address] [place] [address], [address] 1, [facility] 0 13:11:21 History of cardiac pacemake r in situ 085428019 Active 2019 [facility] 0 09:34:57 Long-ter m current use of anticoag ulant 394061908 Active [place] [address] [place] [address], [address] 1, [facility] 0 12:28:58 EKG: right bundle branch block 411792804 Active 2019 [place] [address] [place] [address], [address]35[address] 1, [facility] 0 12:29:00 Iron deficien cy anemia 04416486 Active 2021 MARTHA Morrison MD [address] [place] [address], [address] 1, [facility] 2 19:46:39 Microsco pic hematuri a 797532778 Active 2021 MARTHA Morrison MD [address] [place] [address], [phone] 1, [facility] 2 19:46:40 Problem Notes None recorded. Procedures Surgical History Date Name Laterality Status Provider Name and Address Organization Details Recorded Time 12/19/19 24 Destruction Premalignant Lesion(s) completed Yamilka Gibson [facility] 12/19/2023 11:39:35 10/29/19 22 Destruction Premalignant Lesion(s) completed Yamilka Jt [facility] 10/29/2021 10:26:45 10/23/19 22 Echocardiogram completed ABEBA HOOKS MD [address] [place] [address], [phone], [facility] 10/25/2021 09:45:48 06/22/20 21 Stress Test - Nuclear Lexiscan completed ABEBA HOOKS MD [address] [place] [address], [phone], [facility] 06/22/2021 16:28:33 10/29/19 21 Destruction Premalignant Lesion(s) completed [facility] 10/29/2020 09:57:02 07/15/20 20 Stress Test - Echo completed Leah Guajardo [facility] 07/15/2020 09:19:41 07/15/20 20 Echocardiogram completed LACIE EASLEY MD [address] [place] [address], [phone], [facility] 07/16/2020 08:24:28 06/02/20 20 Echocardiogram completed LACIE EASLEY MD [address] [place] [address], [phone], [facility] 07/16/2020 08:22:04 11/07/19 20 Pacemaker completed LACIE EASLEY MD [address] [place] [address], [address], [facility] 11/08/2019 08:21:57 10/30/19 20 replacement of aortic valve completed Ree Junior [facility] 11/22/2019 10:24:33 09/11/20 19 Cardiac Catheterization completed LACIE EASLEY MD [address] [place] [address], [phone], [facility] 09/11/2019 10:05:56 08/09/20 19 Echocardiogram completed LACIE EASLEY MD [address] [place] [address], [address], [facility] 08/09/2019 15:54:43 07/10/20 19 Destruction Premalignant Lesion(s) completed [facility] 07/10/2019 12:14:56 06/28/20 19 Echocardiogram completed LACIE EASLEY MD [address] [place] [address], [address], [facility] 06/28/2019 11:06:08 09/26/20 18 Echocardiogram completed LACIE EASLEY MD [address] [place] [address], [address], [facility] 09/26/2018 14:31:19 07/10/20 18 Destruction Premalignant Lesion(s) completed [facility] 07/10/2018 11:33:05 06/14/20 18 Cerumen removal - Instruments, Unilateral completed SHRUTHI TOURE MD [address] [place] [address], [address], [facility] 06/14/2018 10:01:22 02/29/20 18 Echocardiogram completed LACIE EASLEY MD [address] [place] [address], [address], [facility] 02/28/2018 13:45:22 09/05/20 17 Echocardiogram completed LACIE EASLEY MD [address] [place] [address], [address], [facility] 09/05/2017 11:25:38 07/07/20 17 Biopsy Skin Lesion; Tangential completed Drew Castaneda [facility] 07/07/2017 11:54:14 09/14/20 16 Colonoscopy completed Deana Blackwell [facility] 07/29/2017 08:35:34 10/15/19 15 [facility] 11:42:33 10/10/19 13 [facility]2017 11:43:17 10/10/19 12 Hernia repair w/mesh completed Pema Gunn [facility] 02/28/2017 11:42:51 05/27/20 08 Cardiac Surgery completed LACIE AESLEY MD [address] [place] [address], [phone] 09/05/2017 11:43:26 Other completed [facility] 12/12/2018 12:28:38 Urologic Surgery completed Emelina Perez [facility] 11/02/2016 11:11:18 Imaging Results None recorded. Procedure Notes None recorded. 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 FDA [id number] Y [facility] 11/08/2019 09:14:23 Allergies Allergen ID Allergen Name Allergen Category Reaction Reaction Severity Criticality Documentation Date Start Date Code Code System Note Provider Name and Address Organization Details Recorded Time 700585 amiodaron e hydrochlo ride medicatio n Not available Not available Not available 09/02/20162010 4 RxNorm Comme nt: eleva rebecca thyro id;Cr eated By: Connie Wilburn ed Date: 07/19 10:32 :22 AM; Not Available [facility] 6 13:44:10 576318 amiodaron e medicatio n Not available Not available Not available 08/07/2020 703 RxNorm Other react ions and sever ities : 'Unkn own (qual ifier value )'. [facility] 0 09:34:56 123697 clopidogr el medicatio n Not available Not available Not available 08/07/2020 13028 RxNorm Charisma Butt [facility] 0 09:34:56 Medications Name Sig Start [...] warfarin 2.5 mg tablet Take 1 tablet by mouth [...] Available Eliquis 07/31 completed Eliquis 5mg per Irene 4 boxes given in office Lot #[id number] A exp: 06/01 KLW Not Available Not Available Not Available Vitals Date Recorded Body height Heart rate Respiratory rate Oxygen saturation Oxygen saturation in Arterial blood by Pulse oximetry Systolic And Diastolic Provider Name and Address Organization Details Last Updated DateTime 4 175.26 cm 67 /min 16 /min 97 % 97 % 90/62 mm[Hg] Stephanie Rochaaver [facility] 4 11:27:27 Date Recorded Body height Body mass index (BMI) Body weight Heart rate Oxygen saturation Oxygen saturation in Arterial blood by Pulse oximetry Systolic And Diastolic Provider Name and Address Organization Details Last Updated DateTime 5 175.26 cm 29.7 kg/m2 74269.3 5 g 61 /min 96 % 96 % 124/86 mm[Hg] Fan Garza [facility] 5 11:34:41 Date Recorded Body height Oxygen saturation Oxygen saturation in Arterial blood by Pulse oximetry Heart rate Body mass index (BMI) Body weight Systolic And Diastolic Provider Name and Address Organization Details Last Updated DateTime 4 175.26 cm 95 % 95 % 65 /min 29.3 kg/m2 89917.6 9 g 110/68 mm[Hg] Cammy Larsen [facility] 4 11:03:39 Social History Question Answer Notes LastModified by Organizat ion Details LastModified Time Tobacco Smoking Status Former Smoker QUIT 2007 Emelina blanco, [facility] 11/02/2016 11:09:44 Do You Have An Advance [...] When Did You Quit Smoking? 6-10yearssince lastcigarette [email or web address] Information not available 09/05/2017 Which Of Your Hands Is Dominant? Left Information not available 04/02/2019 Hard Of Hearing Or Deaf In One Or Both Ears? No Information not available 01/27/2017 Legally Blind In One Or Both Eyes? No Information not available 01/27/2017 Live Alone Or With Others? With Others Information not available 01/27/2017 Marital Status [email or web address] Informatio n not available 04/02/2019 What Was [...] used smokeless tobacco? Never used smokeless tobacco [email or web address] Information not available 06/28/2019 Are you currently employed? No Information not available 01/27/2017 Are you able to care for yourself independently? Yes Information not available 01/27/2017 What is your occupation? Retired Information not available 01/27/2017 Do you or have you ever used e-cigarettes or vape? Never used electronic cigarettes [email or web address] Information not available 06/28/2019 What is your [...] high-dose, trivalent, PF 8 completed Not Available [facility] 10/27/2019 02:51:10 Pneumococcal conjugate PCV 13 6 completed Charisma Butt [facility] 08/07/2020 09:34:58 pneumococcal polysaccharide PPV23 0 completed Charisma Butt [facility] 08/07/2020 09:34:58 Hep A, unspecified formulation 2 completed Charisma Butt [facility] 08/07/2020 09:34:58 Hep B, unspecified formulation 2 completed Charisma Butt [facility] 08/07/2020 09:34:58 zoster live 2 completed Charisma Butt [facility], [facility] 08/07/2020 09:34:58 Tdap 2 completed Charisma Butt [facility], [facility] 08/07/2020 09:34:58 Influenza, high-dose, trivalent, PF 9 completed Not Available [facility] 10/27/2019 02:48:21 Influenza, high-dose, quadrivalent, PF 0 completed Shadia Salmeron [facility], [facility] 07/02/2020 10:01:55 Influenza, high-dose, quadrivalent, PF 1 completed Kierra Rashid [facility], [facility] 07/22/2021 09:54:55 Tdap 0 completed Charisma Butt [facility] 08/07/2020 09:34:58 SARS-COV-2 (COVID-19) vaccine, UNSPECIFIED 1 completed LACIE EASLEY MD [address] [place] [address], [address], [facility] 12/24/2020 11:30:18 COVID-19, mRNA, LNP-S, PF, 100 mcg/0.5mL dose or 50 mcg/0.25mL dose 1 completed Kristen Short [facility] 02/02/2021 10:22:15 Influenza, high-dose, trivalent, PF 7 completed Not Available [facility] 10/27/2019 02:45:19 COVID-19, mRNA, LNP-S, PF, 100 mcg/0.5mL dose or 50 mcg/0.25mL dose 1 completed Bebeto [place] [facility] 10/30/2021 10:30:31 Past Encounters Encounter ID Performer Location Encounter Start Date Encounter Closed Date Diagnosis/Indication Diagnosis SNOMED-CT Code Diagnosis ICD10 Code Diagnosis Note [id number] LACIE HENRIQUEZ JR, MD GENERAL SURGERY [address] [address] 11/02/2016 10:36:52 11/02/2016 15:16:01 Diastasis recti 88128208 M62.08 I told him this does not require any surgical treatment and there is no risk of bowel entrapment . He can follow-up as needed. [id number] KARON CALDERA MD INTERNAL MEDICINE [address] [place] [address] 01/27/2017 10:56:38 01/27/2017 12:30:05 Benign hypertension 21535436 I10 Hyperlipidemia 71153432 E78.5 Coronary arteriosclerosis in [place] artery 6721705164 107 I25.10 History of polyp of colon 497173676 Z86.955 [id number] LACIE EASLEY MD CARDIOLOG Y EAST [address] [place] [address] 02/28/2017 10:54:04 02/28/2017 12:24:07 Aortic stenosis, non-rheumatic 075965994 I35.0 The patient remains asymptomat ic from his aortic stenosis. His last echocardio gram showed moderate to severe by echo criteria but he remains fully active and having none of the cardinal symptoms of aortic stenosis which were reviewed and discussed in detail. Would like to recheck an echocardio gram upon return visit. Coronary arteriosclerosis in [place] artery 0033892139 107 I25.10 Medication changes, as well as new medication s were reviewed and discussed in detail including benefit and risk of therapy. The patient is otherwise doing well on current management . No new active problems identified . Chronic problems are all stable. Patient is to continue current regimen without change. All questions answered and regimen reviewed. Patient is to call for any change in status. Paroxysmal atrial fibrillation 027449378 I48.0 The patient remains in normal sinus rhythm on current therapy. No evidence of antiarrhyt hmic drug toxicity. Details of management and medication risk for antiarrhyt hmics and anticoagul ants reviewed.M edication changes, as well as new medication s were reviewed and discussed in detail including benefit and risk of therapy. The patient is otherwise doing well on current management . No new active problems identified . Chronic problems are all stable. Patient is to continue current regimen without change. All questions answered and regimen reviewed. Patient is to call for any change in status. Long-term drug therapy 550989205 Z79.899 No evidence of flecainide toxicity with normal QTC. 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 The risks, alternativ es, and benefits were discussed. An informed consent was discussed with patient and signed. The area was cleansed with alcohol/hi biclens solution, and then anesthetiz ed with 1% lidocaine with epinephrin e. A shave biopsy was preformed. Hemostasis was achieved with drysol and polysporin and bandage were applied. [id number] KARON CALDERA MD INTERNAL MEDICINE [address] [place] [address] 07/29/2017 08:25:42 07/29/2017 09:48:19 Body mass index 25-29 - overweight 703691513 Z68.28 Benign hypertension 1072 5009 I10 Hyperlipidemia 42892955 E78.5 Coronary arteriosclerosis in [place] artery 3462528246 107 I25.10 History of polyp of colon 629106196 Z86.010 Screening for malignant neoplasm of prostate 177718738 Z12.5 Administra tion of influenza vaccine 84477402 Z23 [id number] LACIE EASLEY MD ECHO VASCULAR LAB [address] [place] [address] 09/05/2017 10:06:48 09/05/2017 15:21:32 Aortic stenosis, non-rheumatic 056469832 I35.0 The patient remains asymptomat ic from his aortic stenosis. His last echocardio gram showed moderate to severe by echo criteria but he remains fully active and having none of the cardinal symptoms of aortic stenosis which were reviewed and discussed in detail. Would like to recheck an echocardio gram upon return visit. [id number] LACIE EASLEY MD CARDIOLOG Y EAST [address] [place] [address] ,[address] [place] [address] 09/05/2017 10:07:59 09/05/2017 12:56:31 Aortic stenosis, non-rheumatic 434798398 I35.0 The patient remains asymptomat ic from his aortic stenosis. His last echocardio gram showed moderate to severe by echo criteria but he remains fully active and having none of the cardinal symptoms of aortic stenosis which were reviewed and discussed in detail.Ech ocardiogra m:Moderate to severe aortic stenosis. Concentric left ventricula r hypertroph y. Left atrial enlargemen t. No significan t change from previous echocardio gram dated 08/30/2016 . Echocardio gram remained stable and the patient remains asymptomat ic. We'll recheck echo in one year. Coronary arteriosclerosis in [place] artery 9132705783 107 I25.10 Medication changes, as well as new medication s were reviewed and discussed in detail including benefit and risk of therapy. The patient is otherwise doing well on current management . No new active problems identified . Chronic problems are all stable. Patient is to continue current regimen without change. All questions answered and regimen reviewed. Patient is to call for any change in status. Paroxysmal atrial fibrillation 179558246 I48.0 The patient remains in normal sinus rhythm on current therapy. No evidence of antiarrhyt hmic drug toxicity. Details of management and medication risk for antiarrhyt hmics and anticoagul ants reviewed.M edication changes, as well as new medication s were reviewed and discussed in detail including benefit and risk of therapy. The patient is otherwise doing well on current management . No new active problems identified . Chronic problems are all stable. Patient is to continue current regimen without change. All questions answered and regimen reviewed. Patient is to call for any change in status. He has asymptomat ic bradycardi a, No indication s for pacemaker at this time. Long-term drug therapy 812755629 Z79.899 Flecainide .Patient shows no evidence of toxicity to the antiarrhyt hmic drug program. Electrocar diogram shows stable QTc interval. Risk of medication and monitoring reviewed with patient. [id number] KARON CALDERA MD INTERNAL MEDICINE [address] [place] [address] 02/14/2018 09:32:13 02/14/2018 10:19:12 Body mass index 25-29 - overweight 916510025 Z68.28 Benign hypertension 1072 5009 I10 Hyperlipidemia 32917034 E78.5 Coronary arteriosclerosis in [place] artery 6646355352 107 I25.10 History of polyp of colon 040304742 Z86.578 [id number] LACIE EASLEY MD CARDIOLOG Y EAST [address] [place] [address],[address] [place] [address] 02/14/2018 13:04:05 02/14/2018 15:15:02 Aortic stenosis, non-rheumatic 996379317 I35.0 The patient remains asymptomat ic from his aortic stenosis. His last echocardio gram showed moderate to severe by echo criteria but he remains fully active and having none of the cardinal symptoms of aortic stenosis which were reviewed and discussed in detail.He remains very physically active without any symptoms whatever. I'll recheck an echocardio gram and EKG in 6 months. Patient understand s that if he develops any of the symptoms which we discussed in detail he is to contact me for follow-up appointmen t as soon as possible. Coronary arteriosclerosis in [place] artery 3601399708 107 I25.10 Medication changes, as well as new medication s were reviewed and discussed in detail including benefit and risk of therapy. The patient is otherwise doing well on current management . No new active problems identified . Chronic problems are all stable. Patient is to continue current regimen without change. All questions answered and regimen reviewed. Patient is to call for any change in status. Paroxysmal atrial fibrillation 354407240 I48.0 The patient remains in normal sinus rhythm on current therapy. No evidence of antiarrhyt hmic drug toxicity. Details of management and medication risk for antiarrhyt hmics and anticoagul ants reviewed.M edication changes, as well as new medication s were reviewed and discussed in detail including benefit and risk of therapy. The patient is otherwise doing well on current management . No new active problems identified . Chronic problems are all stable. Patient is to continue current regimen without change. All questions answered and regimen reviewed. Patient is to call for any change in status. He has asymptomat ic bradycardi a, No indication s for pacemaker at this time. Long-term drug therapy 795177154 Z79.899 Flecainide .Patient shows no evidence of toxicity to the antiarrhyt hmic drug program. Electrocar diogram shows stable QTc interval. Risk of medication and monitoring reviewed with patient. [id number] LACIE EASLEY MD CARDIOLOG Y EAST [address] [place] [address] 02/28/2018 12:09:42 02/28/2018 15:29:20 Aortic stenosis, non-rheumatic 905379289 I35.0 I reassured him that his echocardio gram and EKG have not significan tly changed since last seen. I feel his cough is related to probable recent viral bronchitis slowly resolving. I did mention lisinopril occasional ly causes dry nonproduct thomas cough however since his symptoms have been so recent I doubt it's related to AYAN inhibitor. Coronary arteriosclerosis in [place] artery 8308978782 107 I25.10 Medication changes, as well as new medication s were reviewed and discussed in detail including benefit and risk of therapy. The patient is otherwise doing well on current management . No new active problems identified . Chronic problems are all stable. Patient is to continue current regimen without change. All questions answered and regimen reviewed. Patient is to call for any change in status. Paroxysmal atrial fibrillation 810625263 I48.0 The patient remains in normal sinus rhythm on current therapy. No evidence of antiarrhyt hmic drug toxicity. Details of management and medication risk for antiarrhyt hmics and anticoagul ants reviewed.M edication changes, as well as new medication s were reviewed and discussed in detail including benefit and risk of therapy. The patient is otherwise doing well on current management . No new active problems identified . Chronic problems are all stable. Patient is to continue current regimen without change. All questions answered and regimen reviewed. Patient is to call for any change in status. He has asymptomat ic bradycardi a, No indication s for pacemaker at this time. Long-term drug therapy 633204774 Z79.899 Flecainide .Patient shows no evidence of toxicity to the antiarrhyt hmic drug program. Electrocar diogram shows stable QTc interval. Risk of medication and monitoring reviewed with patient. [id number] LACIE EASLEY MD ECHO VASCULAR LAB [address] [place] [address] 02/28/2018 12:10:13 03/07/2018 11:15:38 Aortic stenosis, non-rheumatic 598903622 I35.0 The patient remains asymptomat ic from his aortic stenosis. His last echocardio gram showed moderate to severe by echo criteria but he remains fully active and having none of the cardinal symptoms of aortic stenosis which were reviewed and discussed in detail.He remains very physically active without any symptoms whatever. I'll recheck an echocardio gram and EKG in 6 months. Patient understand s that if he develops any of the symptoms which we discussed in detail he is to contact me for follow-up appointmen t as soon as possible. [id number] LACIE EASLEY MD CARDIOLOG Y [address] ,[address] [place] [address] 05/23/2018 09:18:18 05/23/2018 11:15:56 Aortic stenosis, non-rheumatic 852042586 I35.0 IManagemen t of this problem was reviewed with the patient. No changes recommende d, status for this problem is stable at this time. Coronary arteriosclerosis in [place] artery 8613084334 107 I25.10 Medication changes, as well as new medication s were reviewed and discussed in detail including benefit and risk of therapy. The patient is otherwise doing well on current management . No new active problems identified . Chronic problems are all stable. Patient is to continue current regimen without change. All questions answered and regimen reviewed. Patient is to call for any change in status. Paroxysmal atrial fibrillation 168397431 I48.0 The patient remains in normal sinus rhythm on current therapy. No evidence of antiarrhyt hmic drug toxicity. Details of management and medication risk for antiarrhyt hmics and anticoagul ants reviewed.M edication changes, as well as new medication s were reviewed and discussed in detail including benefit and risk of therapy. The patient is otherwise doing well on current management . No new active problems identified . Chronic problems are all stable. Patient is to continue current regimen without change. All questions answered and regimen reviewed. Patient is to call for any change in status. He has asymptomat ic bradycardi a, No indication s for pacemaker at this time. Long-term drug therapy 234217741 Z79.899 Flecainide .Patient shows no evidence of toxicity to the antiarrhyt hmic drug program. Electrocar diogram shows stable QTc interval. Risk of medication and monitoring reviewed with patient. [id number] MARTHA ENG APRN INTERNAL MEDICINE [address] [place] [address] 06/05/2018 08:36:12 06/05/2018 09:54:25 Impacted cerumen in left ear 5982296712 598457 H61.22 Attempted cerumen removal today with hydrogen peroxide and currette for 15 min. extensive wax and I was unable to entirely clear this. Sending to ENT for evaluation and use of suction. Also discussed with Riya Collins APRN who agreed with this POC. [id number] SHRUTHI TOURE MD ENT [address] [place] [address] 06/14/2018 09:18:28 06/14/2018 10:21:29 Hearing loss 13638023 H91.92 secondary to left cerumen impaction. Removed. Impacted c erumen in left ear 7578406417 703308 H61.22 [id number] BERNICE CRISTINA DO DERMATOLO GY EAST [address] [place] [address] 07/10/2018 10:53:37 07/10/2018 11:38:49 History of malignant neoplasm of skin 046607596 Z85.828 scalp- No recurrence Actinic keratosis 731318 007 L57.0 Education then treated with LN; scalp x2 , R helix x1 pt tolerated well advised pt what to expect with freezing Solar lentiginosis 26348 2007 L81.4 Benign Reassuranc e Senile hyperkeratosis 39 8632757 L82.1 Benign Reassuranc e Treated with LN per patients request : mid forehead x1 pt tolerated well advised pt what to expect with freezing Senile angioma 3447400 I 78.1 Benign Reassuranc e [id number] KARON CALDERA MD INTERNAL MEDICINE [address] [place] [address] 07/31/2018 10:21:31 07/31/2018 12:39:37 Adult health examination 609927912 Z00.00 Administra tion of influenza vaccine 63163303 Z23 Benign hypertension 1072 5009 I10 Hyperlipidemia 20324659 E78.2 Coronary arteriosclerosis in [place] artery 0919877068 107 I25.10 History of polyp of colon 986103074 Z86.010 Screening for malignant neoplasm of prostate 971325704 Z12.5 [id number] LACIE EASLEY MD CARDIOLOG Y EAST [address] [place] [address] 09/26/2018 12:25:12 09/29/2018 10:45:34 Aortic stenosis, non-rheumatic 795817975 I35.0 Echocardio gram continues to show similar findings. The patient has tolerated gone into atrial fibrillati on without any difficulty and continues to be very physically active. He has not yet clinically a candidate for valve surgery. Coronary arteriosclerosis in [place] artery 6919057131 107 I25.10 Medication changes, as well as new medication s were reviewed and discussed in detail including benefit and risk of therapy. The patient is otherwise doing well on current management . No new active problems identified . Chronic problems are all stable. Patient is to continue current regimen without change. All questions answered and regimen reviewed. Patient is to call for any change in status. Paroxysmal atrial fibrillation 134757839 I48.0 Electrocar diogram today shows atrial flutter/fi brillation with heart rate of 86. The patient is asymptomat ic. I will initiate Eliquis and arrange for cardiovers ion if still in atrial fibrillati on and one month follow-up visit. Long-term drug therapy 494114045 Z79.899 Flecainide .Patient shows no evidence of toxicity to the antiarrhyt [facility] drug program. Electrocar diogram shows stable QTc interval. Risk of medication and monitoring reviewed with patient. Anticoagulant therapy 18 5990252 Z79.01 Eliquis 5 mg twice a day initiated. Baseline CBC and CMP and TSH ordered.El ectronic prescripti on sent to patient's pharmacy. Samples given.In light of his coronary disease is to continue low-dose aspirin as well. [id number] LACIE EASLEY MD ECHO VASCULAR LAB [address] [facility] [place] [address] 09/26/2018 12:26:27 09/27/2018 09:53:35 Aortic valve disorder 5316503 I35.9 [id number] LACIE EASLEY MD CARDIOLOG Y [address] [place] [address] 11/02/2018 11:38:03 11/02/2018 13:11:49 Aortic stenosis, non-rheumatic 797025021 I35.0 Echocardio gram continues to show similar findings. The patient has tolerated gone into atrial fibrillati on without any difficulty and continues to be very physically active. He has not yet clinically a candidate for valve surgery. Coronary arteriosclerosis in [place] artery 9560218480 107 I25.10 Medication changes, as well as new medication s were reviewed and discussed in detail including benefit and risk of therapy. The patient is otherwise doing well on current management . No new active problems identified . Chronic problems are all stable. Patient is to continue current regimen without change. All questions answered and regimen reviewed. Patient is to call for any change in status. Paroxysmal atrial fibrillation 819462760 I48.0 Electrocar diogram today shows atrial flutter/fi brillation with heart rate of 86. The patient is asymptomat ic.I discussed options and plan to initiate cardiovers ion on his next visit. 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 Over the years he's had 3 concussion s and several fractured bones and therefore lead level physical activity would be inappropri ate with Eliquis. After discussion , he prefers to be evaluated for possible ablation in the hope that he may eventually discontinu e blood thinner. I'll arrange consultati on with Dr. Hughes. Long-term drug therapy 511632734 Z79.899 Flecainide .Patient shows no evidence of toxicity to the antiarrhyt [facility] drug program. Electrocar diogram shows stable QTc interval. Risk of medication and monitoring reviewed with patient. Anticoagulant therapy 18 8633723 Z79.01 Eliquis 5 mg twice a day initiated. Baseline CBC and CMP and TSH ordered.El ectronic prescripti on sent to patient's pharmacy. Samples given.In light of his coronary disease is to continue low-dose aspirin as well. Renewal of prescription 443086509 Z76.0 [id number] BLANK HUGHES MD CARDIOLOG Y EAST [address] [place] [address] ,[address] [place] [address] 11/06/2018 08:57:28 11/06/2018 10:45:08 Atrial flutter 8779476 I48.92 The patient has a class I indication for ablation. I discussed ablation therapy with the patient to include the procedural aspects and potential benefits. The patient understand s and accepts that potential complicati ons include, but are not limited to: , stroke, worsening arrytyhmia , kristineatio n, need for urgent surgery, need for permanent pacemaker as well as bleeding and thrombotic events. He will discontinu e his flecainide . After 3-4 weeks of monitoring should there be no recurrence of atrial flutter or atrial fibrillati on after ablation his oral anticoagul ation may be discontinu ed. I have educated the patient as to how to check his radial pulse and have recommende d he perform this on a daily basis after completion of ablation to make sure that we are not dealing with any late atrial fibrillati on. Coronary arteriosclerosis in [place] artery 0942375237 107 I25.10 Continued guideline directed medical therapy will be pursued. Aortic jazmyne nosis, non-rheumatic 226472618 I35.0 Serial clinical and echocardio graphic evaluation will be performed. [id number] YEIMY GIBSON PA-C INTERNAL MEDICINE [address] [place] [address] 12/05/2018 09:38:45 12/14/2018 13:25:53 Herpes zoster 7364589 B02.9 Discussed need to see eyeglass lens generator for exam. Start Valtrex. [id number] LACIE GARDNER MD OPHTHALMO LOGY [address] [place] [place] [address] 12/05/2018 12:03:01 12/06/2018 11:36:16 Herpes zoster ophthalmicus 09515987 B02.30 no globe invol , R sup face and lid [id number] LACIE EASLEY MD CARDIOLOG Y [address] ,[address] [place] [address] 12/12/2018 12:03:19 12/12/2018 13:54:58 Coronary arteriosclerosis in [place] artery 2082725556 107 I25.10 Medication changes, as well as new medication s were reviewed and discussed in detail including benefit and risk of therapy. The patient is otherwise doing well on current management . No new active problems identified . Chronic problems are all stable. Patient is to continue current regimen without change. All questions answered and regimen reviewed. Patient is to call for any change in status. Aortic jazmyne nosis, non-rheumatic 773482777 I35.0 Management of this problem was reviewed with the patient. No changes recommende d, status for this problem is stable at this time. Long-term drug therapy 152399806 Z79.899 Flecainide .Patient shows no evidence of toxicity to the antiarrhyt [facility] drug program. Electrocar diogram shows stable QTc interval. Risk of medication and monitoring reviewed with patient. Anticoagulant therapy 18 4228454 Z79.01 Eliquis 5 mg twice a day initiated. Baseline CBC and CMP and TSH ordered.El ectronic prescripti on sent to patient's pharmacy. Samples given.In light of his coronary disease is to continue low-dose aspirin as well. Atrial flutter 2881501 I 48.92 Patient remains unaware of his symptoms. He is currently in normal sinus rhythm. I advise continuing Eliquis for 3 months and flecainide as well. Hopefully medication s can be stopped since his ablation was successful .RTC: 6 months with EKG.RTC: 6 months with EKG. [id number] KARON CALDERA MD INTERNAL MEDICINE [address] [place] [address] 03/22/2019 11:49:39 03/22/2019 12:48:21 Overweight 377020718 E66.3 Benign hypertension 1072 5009 I10 Hyperlipidemia 69239458 E78.2 Coronary arteriosclerosis in [place] artery 2610789728 107 I25.10 History of polyp of colon 482736774 Z86.010 Pain of le ft elbow joint 7883868793 0659421 M25.398 [id number] YEIMY MOLINA PA-C ORTHOPEDI CS [facility] CL[facility]ED [address] [address] 04/02/2019 10:29:56 04/02/2019 11:59:05 Pain of left elbow joint 3895106566 9604994 M25.522 Medial epi condylitis of left elbow joint 9476994947 65857 M77.02 [id number] LACIE EASLEY MD CARDIOLOG Y EAST [address] [place] [address] ,[address] [place] [address] 06/28/2019 10:04:46 06/28/2019 11:40:51 Atrial flutter 5585962 I48.92 Patient remains unaware of his symptoms. He is currently in normal sinus rhythm. I advise continuing Eliquis for 3 months and flecainide as well. Hopefully medication s can be stopped since his ablation was successful .RTC: 6 months with EKG.RTC: 6 months with EKG. Coronary arteriosclerosis in [place] artery 8041992307 107 I25.10 Medication changes, as well as new medication s were reviewed and discussed in detail including benefit and risk of therapy. The patient is otherwise doing well on current management . No new active problems identified . Chronic problems are all stable. Patient is to continue current regimen without change. All questions answered and regimen reviewed. Patient is to call for any change in status. Aortic jazmyne nosis, non-rheumatic 579228470 I35.0 Management of this problem was reviewed with the patient. No changes recommende d, status for this problem is stable at this time. Long-term drug therapy 827698854 Z79.899 Flecainide .Patient shows no evidence of toxicity to the antiarrhyt [facility] drug program. Electrocar diogram shows stable QTc interval. Risk of medication and monitoring reviewed with patient. Anticoagulant therapy 18 1134720 Z79.01 Eliquis 5 mg twice a day initiated. Baseline CBC and CMP and TSH ordered.El ectronic prescripti on sent to patient's pharmacy. Samples given.In light of his coronary disease is to continue low-dose aspirin as well. EKG: right bundle branch block 118578085 I45.10 Unchanged and chronic. 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 Leave the bandage on for 24 hrs. Clean the area daily with warm soapy water, and apply polysporin ointment and a bandaid once daily until healed. Call the office if any increase in redness, drainage, or pain. [id number] KARON CALDERA MD INTERNAL MEDICINE [address] [place] [address] 08/03/2019 14:13:54 08/03/2019 15:50:30 Adult health examination 078126293 Z00.00 Benign hypertension 1072 5009 I10 Hyperlipidemia 78155182 E78.2 Coronary arteriosclerosis in [place] artery 9002072809 107 I25.10 History of polyp of colon 283177551 Z86.010 Administra tion of influenza vaccine 79116068 Z23 [id number] LACIE EASLEY MD ECHO VASCULAR LAB [address] [place] [address] 08/09/2019 12:41:10 08/10/2019 08:41:04 Aortic stenosis, non-rheumatic 933024978 I35.0 Management of this problem was reviewed with the patient. No changes recommende d, status for this problem is stable at this time. [id number] LACIE EASLEY MD CARDIOLOG Y EAST [address] [place] [address],[address] [place] [address] 08/16/2019 09:32:11 08/16/2019 10:34:49 Coronary arteriosclerosis in [place] artery 0585239993 107 I25.10 His symptoms are troubling for recurrence of angina pectoris. Given his moderate to severe aortic stenosis it's unclear whether he may be having compromise of his grafts versus need for valve replacemen t. Given his developmen t of angina, he needs cardiac catheteriz ation studies.Ri sk and benefit of cardiac catheteriz ation and possible coronary interventi on explained. The patient understand s indication s, procedure, risk and benefits and wishes to proceed. The patient was given Cath instructio n booklet to review before procedure. It has been explained that a satisfacto ry result is expected, possible risks include , heart attack, stroke, bleeding, infection, damage to adjacent tissues or organs, swelling, pain, or medication reaction. Aortic jazmyne nosis, non-rheumatic 929651635 I35.0 Patient is now experienci ng exertional angina.We' ll proceed with cardiac catheteriz ation. EKG: right bundle branch block 354799712 I45.10 Unchanged and chronic. [id number] IRENE MAJANO PA-C CARDIOLOG Y [address] [place],[address] [place] [address] 5 11/15/2019 10:15:42 11/15/2019 13:39:26 Stitch infection 847315108 T81.49XA [id number] CHEMO TURNER PA-C NEUROSURG [facility] CLOSED [address] 0 11/22/2019 10:07:42 11/30/2019 09:28:12 Subdural intracranial hematoma 09571920 S06.5X0A [id number] IRENE MAJANO PA-C CARDIOLOG Y [address] [place],[facility] FLO[address] [place] [address] 5 11/22/2019 11:30:46 11/22/2019 12:37:33 Stitch infection 598558649 T81.49XA [id number] BLANK HUGHES MD CARDIOLOG Y [address] [place],[facility] FLO[address] [place] [address] 5 12/03/2019 13:07:14 12/03/2019 15:09:40 [id number] BLANK HUGHES MD CARDIOLOG Y [address] FLO[address] [place] [address] 12/06/2019 13:09:39 12/10/2019 11:07:57 Wound of skin 245053744 T14.8XXA I am suspicious that the patient has developed a seroma. There doesn't appear to be any evidence of a deep tissue infection. Nonetheles s the patient and his report that this is intermitte ntly draining and I am concerned that sooner or later it will lead to a deep tissue infection. The patient appears to have had return of AV conduction . I'm going to program the pacemaker to VVI mode at a rate of 30. A 5 day event recorder will be applied. He'll return and see me in follow-up after that's completed. If there is no evidence of complete heart block or high-grade AV block I am going to recommend removal of the system. 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 I suspect the patient may have had a seroma that drained. Nonetheles s he is not requiring use of his pacemaker and CHB has resolved. It is possible, however, that this may return. I would, at this time, prefer to leave the system in place but should further drainage occur will proceed with explantati on. I discussed this plan with the patient. We will recheck his status on the and he is to contact me should there be recurrent drainage in the interim. [id number] LACIE EASLEY MD CARDIOLOG Y [address] [place] [address] 01/03/2020 09:43:45 01/03/2020 10:57:00 Biventricular cardiac pacemaker present 6834518261 9105 Z95.0 Coronary arteriosclerosis in [place] artery 6225373992 107 I25.10 Medication changes, as well as new medication s were reviewed and discussed in detail including benefit and risk of therapy. The patient is otherwise doing well on current management . No new active problems identified . Chronic problems are all stable. Patient is to continue current regimen without change. All questions answered and regimen reviewed. Patient is to call for any change in status. Aortic jazmyne nosis, non-rheumatic 645406986 I35.0 Residual murmur post TAVR EKG: right bundle branch block 525692681 I45.10 Unchanged and chronic. [id number] BLANK HUGHES MD CARDIOLOG Y [address] [place] [address] 01/03/2020 09:44:48 01/03/2020 12:50:59 [id number] BLANK HUGHES MD CARDIOLOG Y [address] [place] [address] 01/10/2020 10:00:19 01/10/2020 10:55:24 Biventricular cardiac pacemaker present 9658414524 9105 Z95.0 Although the likelihood of recurrent complete heart block in this clinical situation is quite low it is not 0. The device pocket appears normal and unless we see evidence of recurrent drainage or active infection I am inclined to leave the device in situ. I will see the patient in follow-up in 6 months time. [id number] KARON CALDERA MD INTERNAL MEDICINE [address] [place] [address] 01/31/2020 10:32:29 01/31/2020 10:54:54 History of aortic valve replacement 5902536611 100 Z95.4 History of cardiac pacemaker in situ 613598015 Z95.0 [id number] CAN GOLDMAN PA-C FAMILY MEDICINE [address] [place] [address] 04/24/2020 12:30:02 04/24/2020 16:26:12 Candidal intertrigo 879469968 B37.2 Herpes zoster 7085574 B0 2.9 [id number] LACIE EASLEY MD CARDIOLOG Y [address] ,[address] [place], [place] [address] 06/02/2020 12:37:52 06/02/2020 14:29:23 Biventricular cardiac pacemaker present [id number] 9105 Z95.0 Coronary arteriosclerosis in [place] artery 6648537084 107 I25.10 Medication changes, as well as new medication s were reviewed and discussed in detail including benefit and risk of therapy. The patient is otherwise doing well on current management . No new active problems identified . Chronic problems are all stable. Patient is to continue current regimen without change. All questions answered and regimen reviewed. Patient is to call for any change in status. Aortic jazmyne nosis, non-rheumatic 122878449 I35.0 Residual murmur post TAVR, 1+ AI by echo. He requires dental work and I have advised the patient that he requires antibiotic prophylaxi s since he has a prosthetic aortic valve. EKG: right bundle branch block 058248802 I45.10 Unchanged and chronic. [id number] LACIE EASLEY MD ECHO VASCULAR LAB [address] [place] [address] [place] [id number] 06/02/2020 12:39:25 06/03/2020 08:31:58 Aortic valve disorder 8033039 I35.9 [id number] LESLY CORDOVA MD FLU VACCINE CLOSED [address] [place] [address] 07/02/2020 09:59:03 07/02/2020 10:06:05 Administration of influenza vaccine 93123938 Z23 [id number] LACIE EASLEY MD CARDIOLOG Y [address] [place] [address] 5 07/09/2020 12:38:26 07/09/2020 14:40:42 Biventricular cardiac pacemaker present 8565472086 9105 Z95.0 Coronary arteriosclerosis in [place] artery 0251706813 107 I25.759 He is now experienci ng episodes of chest discomfort with some atypical features. I advise treadmill stress echocardio gram for evaluation . Patient encouraged to take nitroglyce rin when he has chest discomfort . Aortic jazmyne nosis, non-rheumatic 482757634 I35.0 Residual murmur post TAVR, 1+ AI by echo. He requires dental work and I have advised the patient that he requires antibiotic prophylaxi s since he has a prosthetic aortic valve. EKG: right bundle branch block 856128798 I45.10 Unchanged and chronic. [id number] LACIE EASLEY MD ECHO VASCULAR LAB [address] [place] [address] [place] [address] 5 07/15/2020 08:51:41 07/17/2020 08:37:22 Chest pain 67612317 R07.9 [id number] LACIE EASLEY MD [facility]ART ST[facility] [place] [address] [place] [address] 5 07/15/2020 08:53:07 07/16/2020 08:20:38 [id number] LACIE EASLEY MD CARDIOLOG Y [address] [place] [address] 5 07/16/2020 08:59:55 07/16/2020 10:41:36 Biventricular cardiac pacemaker present 8174023236 9105 Z95.0 Pacemaker in situ Coronary arteriosclerosis in [place] artery 6621088425 107 I25.759 He is now experienci ng episodes of chest discomfort with some atypical features. I advise treadmill stress echocardio gram for evaluation . Patient encouraged to take nitroglyce rin when he has chest discomfort . Aortic jazmyne nosis, non-rheumatic 214418799 I35.0 Given his change and echocardio gram I'm concerned that he may have developed leaflet thrombus in his TAVR possibly related to interrupti on of anticoagul ation due to subdural hematoma. The patient's symptoms are relatively stable and I would like to have a VITOR performed to confirm function of his aortic valve. EKG: right bundle branch block 474136686 I45.10 Unchanged and chronic. [id number] LACIE EASLEY MD CARDIOLOG Y [address] [place] [place] [address] 08/21/2020 10:15:24 08/21/2020 14:42:10 Biventricular cardiac pacemaker present 1694983546 9105 Z95.0 Assessment was performed of the implanted device. Any needed adjustment s and setting changes were personally supervised by me and are documented in follow-up form. The device is functionin g well. The patient was instructed to continue in the device surveillan ce program appropriat e for the device. Coronary arteriosclerosis in [place] artery 3600005124 107 I25.759 He is now experienci ng episodes of chest discomfort with some atypical features. I advise treadmill stress echocardio gram for evaluation . Patient encouraged to take nitroglyce rin when he has chest discomfort .Since he now has a pacemaker I feel he can take beta dalila and I would like to add ranolazine .Marco damianti on sent to patient's pharmacy. Aortic jazmyne nosis, non-rheumatic 888740484 I35.0 Given his change and echocardio gram I'm concerned that he may have developed leaflet thrombus in his TAVR possibly related to interrupti on of anticoagul ation due to subdural hematoma. The patient's symptoms are relatively stable and I would like to have a VITOR performed to confirm function of his aortic valve. EKG: right bundle branch block 332063167 I45.10 Unchanged and chronic. Long-term current use of anticoagulant 266203903 Z79.01 Resume warfarin per patient request. [id number] LACIE EASLEY MD CARDIOLOG Y EAST [address] [place] [address] 09/24/2020 11:42:49 09/24/2020 12:30:56 Biventricular cardiac pacemaker present 1308200403 9105 Z95.0 Assessment was performed of the implanted device. Any needed adjustment s and setting changes were personally supervised by me and are documented in follow-up form. The device is functionin g well. The patient was instructed to continue in the device surveillan ce program appropriat e for the device. Coronary arteriosclerosis in [place] artery 9012114335 107 I25.759 He is now experienci ng episodes of chest discomfort with some atypical features. I advise treadmill stress echocardio gram for evaluation . Patient encouraged to take nitroglyce rin when he has chest discomfort .Since he now has a pacemaker I feel he can take beta dalila and I would like to add ranolazine .Marco brooks prescripti on sent to patient's pharmacy. Aortic jazmyne nosis, non-rheumatic 952304040 I35.0 Given his change and echocardio gram I'm concerned that he may have developed leaflet thrombus in his TAVR possibly related to interrupti on of anticoagul ation due to subdural hematoma. The patient's symptoms are relatively stable and I would like to have a VITOR performed to confirm function of his aortic valve. EKG: right bundle branch block 940208669 I45.10 Unchanged and chronic. Long-term current use of anticoagulant 378271305 Z79.01 Resume warfarin per patient request. [id number] KARON CALDERA MD INTERNAL MEDICINE SB [address] [place] [address] 10/14/2020 14:43:11 10/14/2020 15:44:56 Adult health examination 879753598 Z00.00 Benign hypertension 1072 5009 I10 Hyperlipidemia 41629066 E78.2 Coronary arteriosclerosis in [place] artery 7677909983 107 I25.10 History of polyp of colon 335399194 Z86.800 [id number] BERNICE CRISTINA DO [facility] [address] [place] [address] 10/29/2020 08:57:28 10/29/2020 11:01:13 History of malignant neoplasm of skin 074519697 Z85.828 scalp- No recurrence Solar lentiginosis 37447 2006 L81.4 Benign Reassuranc e If any lesions change, or if any other new or symptomati c lesions occur, patient understand s to return to the clinic for further evaluation Discussed sun precaution s; SPF 30+ Senile hyperkeratosis 39 7269931 L82.1 Benign Reassuranc e Senile angioma 7257228 I 78.1 Benign Reassuranc e Actinic keratosis 826530 007 L57.0 Education then treated with LN; left medial forearm x1 pt tolerated well advised pt what to expect with freezing Patient ad vised about exposure to the sun 359694102 Z71.89 recommende d sun protective clothing and a mineral based sunscreen 30 SPF or higher lotion OTC daily [id number] LACIE EASLEY MD CARDIOLOG Y [address] [place] [address] 12/24/2020 10:39:40 12/24/2020 11:33:20 Biventricular cardiac pacemaker present 8455597368 9105 Z95.0 Assessment was performed of the implanted device. Any needed adjustment s and setting changes were personally supervised by me and are documented in follow-up form. The device is functionin g well. The patient was instructed to continue in the device surveillan ce program appropriat e for the device. Coronary arteriosclerosis in [place] artery 3201473098 107 I25.759 He is now experienci ng episodes of chest discomfort with some atypical features. I advise treadmill stress echocardio gram for evaluation . Patient encouraged to take nitroglyce rin when he has chest discomfort .Since he now has a pacemaker I feel he can take beta dalila and I would like to add ranolazine .Marco brooks prescripti on sent to patient's pharmacy. Aortic jazmyne nosis, non-rheumatic 277192701 I35.0 Murmur is not as long as previously and hopefully that means he's had some resolution of his thrombus. I have scheduled a repeat VITOR for evaluation . EKG: right bundle branch block 716783029 I45.10 Unchanged and chronic. Long-term current use of anticoagulant 762080573 Z79.01 Resume warfarin per patient request. Renewal of prescription 884183744 Z76.0 Will reduce dose of beta dalila due to fatigue. [id number] LACIE EASLEY MD CARDIOLOG Y [address] [place] [place] [address] 02/02/2021 09:37:04 02/02/2021 13:05:54 Biventricular cardiac pacemaker present 7436139699 9105 Z95.0 Assessment was performed of the implanted device. Any needed adjustment s and setting changes were personally supervised by me and are documented in follow-up form. The device is functionin g well. The patient was instructed to continue in the device surveillan ce program appropriat e for the device. Coronary arteriosclerosis in [place] artery 9253113552 107 I25.759 No further chest discomfort and patient discontinu ed Ranexa and nitroglyce rin patch Aortic jazmyne nosis, non-rheumatic 486643227 I35.0 Murmur is not as long as previously and hopefully that means he's had some resolution of his thrombus. I have scheduled a repeat VITOR for evaluation . EKG: right bundle branch block 016963817 I45.10 Unchanged and chronic. [id number] KARON CALDERA MD INTERNAL MEDICINE SB [address] [place] [address] 04/27/2021 09:52:22 04/27/2021 11:28:24 Benign hypertension 26345794 I10 Hyperlipidemia 31772580 E78.2 Coronary arteriosclerosis in [place] artery 6904703755 107 I25.10 History of polyp of colon 646927024 Z86.390 [id number] ABEBA HOOKS MD CARDIOLOG Y [address] [place] [place] [address] 06/08/2021 14:47:54 06/10/2021 09:52:24 Biventricular cardiac pacemaker present 8148371294 9105 Z95.0 Biventricu lar pacemaker (LYLES) 11/07/2019 PLAN: Continue with quarterly remote device checks and annual in-office interrogat ion. 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 VITOR 12/30/2020: Peak velocity 2.3m/s. Peak gradient 22mmHg.ECH O 08/04/2020 : Max gradient 86mmHg, Mean gradient 55mmHg. PLAN: DOAC as above Complete r ight bundle branch block 305737271 I45.19 History of coronary artery bypass grafting 272093636 Z95.1 Coronary Artery Disease s/p remote 5v CABG in 2007 (Dr Kyle)CELY TS: Sequential BYRD-D2 & LAD, SVG to PDA branch of the LCx, sequential SVG to D1 & OM2. Coronary Angiogram 09/11/2019 (Dr Easley):L M: Bifurcatin g without significan t stenosisLA D: OccludedLC x: Patent to PLB. The marginal branch is occluded.R CA: OccludedGR AFTS: All 3 grafts are patent. [id number] YEIMY GIBSON PA-C INTERNAL MEDICINE [address] [place] [address] 06/10/2021 13:30:20 06/10/2021 15:24:34 Coronary arteriosclerosis 58144524 I25.10 He will be having further cardiac testing with Dr. Hooks. History of coronary artery bypass grafting 343770258 Z95.1 [id number] ABEBA HOOKS MD CARDIOLOG Y [address] [place] [address] 06/22/2021 11:48:38 06/22/2021 15:23:41 Coronary arteriosclerosis in [place] artery 1591162433 107 I25.759 NSTEMI 05/2021 with Troponin 2.650 PLAN:Efrem nue ASA, statin, BBHas Nitro PRN History of coronary artery bypass grafting 728985786 Z95.1 Coronary Artery Disease s/p remote 5v CABG in 2007 (Dr Kyel)CELY TS: Sequential BYRD-D2 & LAD, SVG to PDA branch of the LCx, sequential SVG to D1 & OM2. Coronary Angiogram 09/11/2019 (Dr Easley):L M: Bifurcatin g without significan t stenosisLA D: OccludedLC x: Patent to PLB. The marginal branch is occluded.R CA: OccludedGR AFTS: All 3 grafts are patent. 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 VITOR 12/30/2020: Peak velocity 2.3m/s. Peak gradient 22mmHg.ECH O 08/04/2020 : Max gradient 86mmHg, Mean gradient 55mmHg. PLAN: DOAC as above Biventricu lar cardiac pacemaker present 1443640039 9105 Z95.0 Biventricu lar pacemaker (LYLES) 11/07/2019V VIR 30 PLAN: Continue with quarterly remote device checks and annual in-office interrogat ion. Complete r ight bundle branch block 179944068 I45.19 [id number] ABEBA HOOKS MD [facility]ART STATION [address] [place] [address] 06/22/2021 11:48:19 06/24/2021 10:50:11 [id number] OSWALD WITT MD INTERNAL MEDICINE SB [address] [place] [address] 07/22/2021 09:41:15 07/22/2021 10:05:56 Administration of influenza vaccine 48585618 Z23 [id number] YEIMY GIBSON PA-C INTERNAL MEDICINE [address] [place] [address] 07/31/2021 12:22:37 07/31/2021 13:57:51 Contusion of lower leg 91295491 S80.10XD The hematoma is slowly shrinking, and should continue to do so. i did warn him he will likely have more ecchymosis coming up in leg and foot as gravity pulls the blood collection downward. He will continue to monitor for any sign of infection, or new issue. He will let me know in 2 weeks how this is doing. 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 VITOR 12/30/2020: Peak velocity 2.3m/s. Peak gradient 22mmHg.ECH O 08/04/2020 : Max gradient 86mmHg, Mean gradient 55mmHg. PLAN: DOAC as above [id number] ABEBA HOOKS MD CARDIOLOG Y [address] ,[address] [place] [address] 10/23/2021 10:00:57 10/23/2021 12:03:16 Body mass index 25-29 - overweight 397155859 Z68.29 Coronary arteriosclerosis in [place] artery 1864628696 107 I25.759 NSTEMI 05/2021 with Troponin 2.650 PLAN:Efrem nue ASA, statin, BBHas Nitro PRN History of coronary artery bypass grafting 351355800 Z95.1 Coronary Artery Disease s/p remote 5v [...] Biologic c ardiac valve prosthesis in situ 973156701 Z95.3 Severe Aortic stenosis s/p TAVR 9mm [place] 3 bioprosthe sis (Dr Dvei Holman) 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 VITOR 12/30/2020: Peak velocity 2.3m/s. Peak gradient 22mmHg.ECH O 08/04/2020 : Max gradient 86mmHg, Mean gradient 55mmHg.ECH O 10/23/2021: The aortic valve bioprosthe tic valve is well-seate d and appears to be functionin g normally. Peak velocity 1.96 m/s. Mean gradient 8 mmHg. PLAN: Continue anticoagul ant therapy Biventricu lar cardiac pacemaker present 4074440684 9105 Z95.0 Biventricu lar pacemaker (LYLES) 11/07/2019V VIR 30 Last in office device check: 08/21/2020 PLAN: Continue with quarterly remote device checks and annual in-office interrogat ion. Anticoagulant therapy 18 7889112 Z79.01 Currently on Coumadin per patient preference .INR managed by [facility] cardiology clinic. 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 Benign Reassuranc e Actinic keratosis 926677 007 L57.0 Education then treated with LN; right anterior scalp x1 pt tolerated well advised pt what to expect with freezing Patient ad vised about exposure to the sun 455802746 Z71.89 recommende d sun protective clothing and a mineral based sunscreen 30 SPF or higher lotion OTC daily [id number] MARTHA BURRELL MD INTERNAL MEDICINE [address] [place] [address] 10/30/2021 09:53:20 10/30/2021 11:50:56 Benign hypertension 43343296 I10 Controlled Hyperlipidemia 39425366 E78.2 lipid panel 04-27-2021 LDL *145 not at goal Coronary arteriosclerosis in [place] artery 1754285869 [address] Hooks History of polyp of colon 331380125 Z86.010 Colonoscop y 09/14/16 diverticul osis, angiodyspl juju colon; repeat 5y per Dr Hendrix=> Scheduled 11-13-2021 12:00 PM, Bk Hendrix MD History of aortic valve replacement 7108704223 [address] Hooks History of cardiac pacemaker in situ 283799220 Z95.[address] Hooks Serum crea tinine above reference range 553041838 R79.89 Increasing over the last year:08/03 0.99 mg/dL10/14 1.26 MG/DL04/27 1.30 mg/dL Anemia 588485383 D64.89 CBC 04-27-2021 Hgb *13.9 with ferritin 35 then with normal iron, B12. On AC - warfarin with easy bruising, otherwise no gross bleeding. Also checking renal function today History of coronary artery bypass grafting 502286505 Z95.1 [id number] BK HENDRIX MD SURGERY SCHEDULE [address] [place] [address] 12/03/2021 10:51:01 12/03/2021 10:52:08 [id number] ABEBA HOOKS MD CARDIOLOG Y [address] [place] [address] 04/23/2022 10:00:25 04/23/2022 11:22:02 Coronary arteriosclerosis in [place] artery 8910877519 107 I25.759 NSTEMI 05/2021 with Troponin 2.650 PLAN:Efrem nue ASA, Atorvastat in 20mg, metoprolol succinate 25 mg dailyHe has Nitro PRN available if needed History of coronary artery bypass grafting 271024833 Z95.1 Coronary Artery Disease s/p remote 5v [...] 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 VITOR 12/30/2020: Peak velocity 2.3m/s. Peak gradient 22mmHg.ECH O 08/04/2020 : Max gradient 86mmHg, Mean gradient 55mmHg.ECH O 10/23/2021: The aortic valve bioprosthe tic valve is well-seate d and appears to be functionin g normally. Peak velocity 1.96 m/s. Mean gradient 8 mmHg. Anticoagulant therapy 18 5994804 Z79.01 Indication : valve thrombosis 07/2020 and then again in 05/2021 Currently on Coumadin (per patient preference ).INR managed by [facility] cardiology clinic. Biventricu lar cardiac pacemaker present 6377680775 9105 Z95.0 Biventricu lar pacemaker (LYLES) 11/07/2019V VIR 30 Last in office device check: 08/21/2020 PLAN: Continue with quarterly remote device checks and annual in-office interrogat ion. Body mass index 25-29 - overweight 666863699 Z68.29 [id number] RIYA COLLINS APRN INTERNAL MEDICINE [address] [place] [address] 06/11/2022 09:54:28 06/14/2022 19:34:11 Adult health examination 952668079 Z00.00 [id number] ABEBA HOOKS MD CARDIOLOG Y [address] [place] [address] 12/01/2022 08:58:59 12/01/2022 10:28:23 Coronary arteriosclerosis in [place] artery 8211032667 107 I25.759 NSTEMI 05/2021 with Troponin 2.650 PLAN:Efrem nue ASA, Atorvastat in 20mg, metoprolol succinate 25 mg dailyHe has Nitro PRN available if needed History of coronary artery bypass grafting 670333469 Z95.1 Coronary Artery Disease s/p remote 5v [...] 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 VITOR 12/30/2020: Peak velocity 2.3m/s. Peak gradient 22mmHg.ECH O 08/04/2020 : Max gradient 86mmHg, Mean gradient 55mmHg. ECHO 10/23/2021: The aortic valve bioprosthe tic valve is well-seate d and appears to be functionin g normally.P eak velocity 1.96 m/s. Mean gradient 8 mmHg. Anticoagulant therapy 18 5799049 Z79.01 Indication : valve thrombosis 07/2020 and then again in 05/2021 Currently on Coumadin (per patient preference ).INR managed by [facility] cardiology clinic. Biventricu lar cardiac pacemaker present 9981072901 9105 Z95.0 Biventricu lar pacemaker (LYLES) placed : VVIR 3: Reprogramm ed to DDD 50, RVP only Last in office device check: 12/01/2022 LOUISE: Continue with quarterly remote device checks and annual in-office interrogat ion. Body mass index 25-29 - overweight 625165000 Z68.29 [id number] BERNICE CRISTINA, [facility]O [facility] [address] [place] [address] 12/16/2022 10:40:12 12/16/2022 12:25:40 History of malignant neoplasm of skin 529453721 Z85.828 scalp- No recurrence Solar lentiginosis 22085 2006 L81.4 Benign Reassuranc ehatsDiscu ssed sun precaution s; SPF 30+ Senile hyperkeratosis 39 0847672 L82.1 Benign Reassuranc e Senile angioma 9816390 I 78.1 Benign Reassuranc e [id number] ABEBA HOOKS MD CARDIOLOG Y [address]AST [address] [place] [address] 05/19/2023 10:40:18 05/19/2023 11:27:49 Coronary arteriosclerosis in [place] artery 8712146087 107 I25.759 NSTEMI 05/2021 with Troponin 2.650 PLAN:Efrem nue ASA, Atorvastat in 20mg, metoprolol succinate 25 mg dailyHe has Nitro PRN available if needed History of coronary artery bypass grafting 900094011 Z95.1 Coronary Artery Disease s/p remote 5v [...] 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 VITOR 12/30/2020: Peak velocity 2.3m/s. Peak gradient 22mmHg.ECH O 08/04/2020 : Max gradient 86mmHg, Mean gradient 55mmHg. ECHO 10/23/2021: The aortic valve bioprosthe tic valve is well-seate d and appears to be functionin g normally.P eak velocity 1.96 m/s. Mean gradient 8 mmHg. Anticoagulant therapy 18 1280436 Z79.01 Indication : valve thrombosis 07/2020 and then again in 05/2021 Currently on Coumadin (per patient preference ).INR managed by [facility] cardiology clinic. Biventricu lar cardiac pacemaker present 2950831247 9105 Z95.0 Biventricu lar pacemaker (LYLES) placed /: VVIR 3: Reprogramm ed to DDD 50, RVP only Last in office device check: 3P LOUISE: Continue with quarterly remote device checks and annual in-office interrogat ion. 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 Anticoagulant therapy 18 5711946 Z79.01 Indication : valve thrombosis 07/2020 and then again in 05/2021 Currently on Coumadin (per patient preference ).INR managed by [facility] cardiology clinic. Biventricu lar cardiac pacemaker present 2729084350 9105 Z95.0 Biventricu lar pacemaker (LYLES) placed : VVIR 3: Reprogramm ed to DDD 50, RVP only Last in office device check: 3P LOUISE: Continue with quarterly remote device checks and annual in-office interrogat ion. Body mass index 25-29 - overweight 174206412 Z68.29 [id number] BRENICE CRISTINA DO DERMAT[facility]O [facility] [address] [place] [address] 12/19/2023 11:04:49 12/19/2023 11:46:16 History of malignant neoplasm of skin 507961889 Z85.828 scalp- No recurrence Solar lentiginosis 18934 2006 L81.4 Benign Reassuranc erecommend ed sun protective clothing and a mineral based sunscreen 30 SPF or higher lotion OTC daily Education then treated with LN; right forehead X2per patient request pt tolerated well advised pt what to expect with freezing Senile hyperkeratosis 39 7269121 L82.1 Benign Reassuranc e Education then treated with LN; left upper arm X1at pt requestpt tolerated welladvise d pt what to expect with freezing Senile angioma 8382514 I 78.1 Benign Reassuranc e Actinic keratosis 241773 007 L57.0 Education then treated with LN; mid scalp X1, left vertex X1, right forehead X1 pt tolerated well advised pt what to expect with freezing [id number] BK HENDRIX MD SURGERY SCHEDULE [address] [place] [address] 04/18/2024 09:43:06 04/18/2024 09:45:19 [id number] ABEBA HOOKS MD CARDIOLOG Y EAST [address] [place] [address] 05/23/2024 10:52:52 05/23/2024 11:35:20 Coronary arteriosclerosis in [place] artery [id number] 107 I25.759 Type 2 NSTEMI 05/2021 with Troponin 2.650 History of coronary artery bypass grafting 015455548 Z95.1 Coronary Artery Disease s/p remote 5v [...] 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 Anticoagulant therapy 18 6039096 Z79.01 Indication : valve thrombosis 07/2020 and then again in 05/2021 Currently on Coumadin (per patient preference ).INR managed by [facility] cardiology clinic. Biventricu lar cardiac pacemaker present [id number] 9105 Z95.0 Biventricu lar pacemaker (LYLES) placed /: VVIR 3: Reprogramm ed to DDD 50, RVP only Last in office device check: 3P LOUISE: Continue with quarterly remote device checks and annual in-office interrogat ion. 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 Anticoagulant therapy 18 5283419 Z79.01 Indication : valve thrombosis 07/2020 and then again in 05/2021 Currently on Coumadin (per patient preference ).INR managed by [facility] cardiology clinic. Biventricu lar cardiac pacemaker present [id number] 9105 Z95.0 Biventricu lar pacemaker (LYLES) placed : VVIR 3: Reprogramm ed to DDD 50, RVP only Last in office device check:02/08PLAN: Continue with quarterly remote device checks and annual in-office interrogat ion. Body mass index 25-29 - overweight 239565960 Z68.29 Health Concerns Section Related Observation LastModified by Organization Detai ls LastModified Time None Recorded Concern Status LastModified by Organization Details LastModified Time None Recorded Advance Directives Directive Y: Payers Insurance Date Sequence Insurance Name Policy Number Policy Chacon Covered Member ID Chacon Member ID Guarantor Name 05/02/2025 2 AARP (MEDICARE SUPPLEMENT) PLAN N David Cox Genia [id number] David Cox Genia 05/02/2025 1 [place] David Cox Genia [id number] David Cox Genia 04/18/2024 2 AARP (MEDICARE SUPPLEMENT) David Cox Genia [id number] David Kenny Cormier Notes Date Note Type Note Provider Name and Address Organization Details Recorded Time 11/17/2023 text/html ROS as noted in the HPI CARDIOVASCULAR HISTORY:# Coronary Artery Disease s/p remote [...] Atrial Fibrillation# Atrial flutter s/p CTI Nov [id number] score 3.Treated with amiodarone until approximately 2011; [...] cm. Mildly dilated ascending aorta 4 cm. # Biventricular pacemaker (LYLES) 11/07/2019a. 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 Device: [employer] Quadra Allure 3562 COFFEE BREWER PImplant: 11/07/2019Mode: [id number]: <1% BIV Other co-morbidities:Histo ry of a fall 11/04/2019 with a right temporal subdural hematoma, managed conservatively by Dr Rasheed. Okayed to resume Antiplatelets/Antico agulants 01/14/[address] Rasheed 05/19/2023: 6-month follow-up visit re: ASCVD (CABG 2007) and TAVR (10/2019)He has not sent in any remote device checks since November. He tells me that he is disconnected his system. 11/17/2023: 6-month follow-up visit re: ASCVD (CABG 2007) and TAVR (10/2019)Mr Cormier and his report that his overall health has been very good .They do not have any new cardiovascular concerns today. 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 He has not had any episodes of chest pain since last visit.No epistaxis, or GI bleeding reported on Coumadin. His weight remains stable. No edema.No palpitations.No cough, shortness of breathNo focal neurological symptoms suggestive of TIA I reviewed his recent remote device check (4min AT/AF on 10/28/2023). We reviewed his echocardiogram findings at today's visit.There has been any significant change since last echo, and in particular abnormalities of his TAVR. Reassurance was provided. 11/17/2023 ECHO:1. The left ventricle is normal [...] there is no significant interval change noted. ABEBA HOOKS MD [facility] [place], [address], [facility] 11/17/2023 20:07:17 12/19/2023 text/html ROS as noted in the HPI Established Patient Presents for a waist up skin exam. lesion on lip patient would like evaluated. Check spots on body Denies any other new or changing lesions. Feels well today. Denies family history of malignant melanoma. BERNICE CRISTINA, DO [address] [place], [address], [facility] 12/19/2023 12:33:54 05/23/2024 text/html ROS as noted in the HPI CARDIOVASCULAR HISTORY:# Coronary Artery Disease s/p remote [...] Atrial Fibrillation# Atrial flutter s/p CTI Nov [id number] score 3.Treated with amiodarone until approximately 2011; then switched to flecainide.S/P CTI ablation by Dr. Hughes 11/14/2018. # Severe Aortic stenosis s/p TAVR 10/29/2019 (29mm Darien 3 Bioprosthesis, Dr Quinonez + [facility])a. 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 His valve [...] cm. Mildly dilated ascending aorta 4 cm. # Biventricular pacemaker (LYLES) 11/07/2019a. 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 Device: [employer]ure 3562 COFFEE BREWER PImplant: 11/07/2019Mode: [id number]: <1% BIV Other co-morbidities:Histo ry of a fall 11/04/2019 with a right temporal subdural hematoma, managed conservatively by Dr Rasheed. Okayed to resume Antiplatelets/Antico agulants 01/14/[address] Rasheed 11/17/2023: 6-month follow-up visit re: ASCVD (CABG 2007) and TAVR (10/2019)Mr Cormier and his report that his overall health has been very good .They do not have any new cardiovascular concerns today. 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 He has not had any episodes of chest pain since last visit.No epistaxis, or GI bleeding reported on Coumadin. His weight remains stable. No edema.No palpitations.No cough, shortness of breathNo focal neurological symptoms suggestive of TIA I reviewed his recent remote device check (4min AT/AF on 10/28/2023). We reviewed his echocardiogram findings at today's visit.There has been any significant change since last echo, and in particular abnormalities of his TAVR. Reassurance was provided. 11/17/2023 ECHO:1. The left ventricle is normal [...] there is no significant interval change noted. 05/23/2024: 6-month follow-up visit re: ASCVD (CABG [...] lab results to review since last visit. ABEBA HOOKS MD [address] [place], [address], [facility] 05/23/2024 21:20:06 02/08/2025 text/html ROS as noted in the HPI CARDIOVASCULAR HISTORY:# Coronary Artery Disease s/p remote [...] Atrial Fibrillation# Atrial flutter s/p CTI Nov [id number] score 3.Treated with amiodarone until approximately 2011; then switched to flecainide.S/P CTI ablation by Dr. Hughes 11/14/2018. # Severe Aortic stenosis s/p TAVR 10/29/2019 (29mm Darien 3 Bioprosthesis, Dr Quinonez + [facility])a. 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 His valve [...] Device: [employer]ure 3562 COFFEE BREWER PImplant: 11/07/2019Mode: [id number]: <1% BIV Other co-morbidities:Histo ry of a [...] Device: [employer] Allure MP 3562 COFFEE BREWER P. 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 Implant: November 07 2019 Mode: DDD 50 Pacin% AP 31% RVP Events: None. No permanent programming changes were made to his device. ABEBA HOOKS MD [address] [place], [address], [facility] 02/08/2025 12:33:31
--- OUTSIDE RECORDS SUMMARY | 2025-05-03 13:47 | XMS_ITS | Patient Health Record ---
Author Organization [facility] Address [address] [facility] [address] [facility] [address] [place] [id number] Care Team Providers Care Green Belt Name Role Phone Alexei Almodovar Primary Care Provider [phone] ALEXEI ALMODOVAR Unavailable Unavailable Romana Thompson Unavailable [phone] Allergies Allergen (clinical drug ingredient) Drug/Non Drug [...] Notes Problem Atherosclerotic hear t disease of [place] coronary artery without angina pectoris (734148465458949) Coronary artery disease involving [place] coronary artery of [place] heart without angina pectoris (I25.10) Active confirmed Problem Iron deficiency anemia (47643010) Iron deficiency anemia, unspecified iron deficiency anemia type (D50.9) Active confirmed Problem Pure hypercholesterolemia (943242161) Pure hypercholesterolemia (E78.00) Active confirmed Problem History of heart valve repair with prosthesis (944463284555133) 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 Problem Primary hypertension (13832839) Primary hypertension (I10) Active confirmed Problem Chronic kidney disease stage 3A (disorder) (450121935) Stage 3a chronic kidney disease (CKD) (N18.31) Active confirmed Vital Signs Heart Rate 60 /min 12/13/2024 Blood pressure diastolic 60 mm Hg 12/13/2024 Height 69 in 12/13/2024 Blood pressure systolic 120 mm Hg 12/13/2024 Weight 202.2 lbs 12/13/2024 BMI 29.86 kg/m2 12/13/2024 Encounters Encounter Location Date Provider Diagnosis [facility] [facility] [address] [place], [place] [id number] 08/23/2024 Alexei Phoenix Acute UTI N39.0 and Intermittent diarrhea R19.7 [facility] [address] [place], [place] [id number] 11/14/2024 Alexei Phoenix Encounter for immunization Z23 [facility] [address] [place], [place] [id number] 12/13/2024 R [place] Thompson Aortic valve replace d Z95.2 ; Bleeding R58 and Supratherapeutic INR R79.1 [facility] [address] [place], [place] [id number] 04/30/2025 R [place] Thompson Assessments Encounter Date Diagnosis (ICD Code) Assessment [...] Test Test Name Order Date H-Microalbumine/Creatinine 05/10/2023 Next Appt Details Provider Name:Alexei Vergara ry, 06/19/2025 11:00:00 AM, [address], [place], [place], [id number], Insurance Providers Payer Name Payer Address Payer Phone Subscriber Number Group Number Insured Name Patient Relationship to Insured Coverage Start Date Coverage End Date MEDICARE PART B [address] [address] [place] [address] [phone] [id number] SHIRA GARZA Self - patient is the insured [facility] [employer] [address] [place] [address] [id number] SHIRA GARZA Self - patient is the insured Medical (General) History Medical History History ICD Code Coronary Artery Disease Hypertension Hyperlipidemia Aortic Stenosis, s/p Tissue Valve Replac [facility], 10/2019 Pacemaker Surgical History Surgery Date(Month/Year) Quintuple Bypass 2008 Hernia Repair Tissue Aortic Valve Replacement 2019 Wrist Hospitalization History Reason Date(Month/Year)
--- NOTE | 2025-05-03 13:55 | XR_ITS ---
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 The joint spaces appear normal. A pacer generator obscures portions of the left proximal humerus. IMPRESSION: Unremarkable exam. Reviewed, Interpreted and Dictated by Andrew Mobley MD Transcribed by Grace Dejesus Authenticated and [facility]
== END 2025-05-03 23:59 | disposition home or self-care (01) ==
LOC: RAD 13:44
PROVIDERS: PCP Family Medicine; Visit Provider Orthopaedic Surgery
DX: M25.812 Other specified joint disorders, left shoulder (principal)
CPT/HCPCS: 73030

== ENCOUNTER 2025-05-09 11:47 | Outpatient (CLI) | payer MEDICARE, SELFPAY ==
--- OUTSIDE RECORDS SUMMARY | 2024-10-19 06:30 | XMS_ITS ---
Author Organization [facility] Address [facility] [address] [place] [phone] Care Team Providers Care Pharmacy Sales Representative Name Role Phone Alexei Almodovar Primary Care Provider ALEXEI ALMODOVAR Unavailable Unavailable REASON FOR VISIT flu vaccine Encounters Encounter Location Date Provider [facility] [address] [place] [id number] 10/19/2024 Alexei Almodovar Plan Of Treatment Next Appt Details Provider Name:Alexei Vergara ry, 06/19/2025 11:00:00 AM, [address], [place], [phone], Progress Notes * SHIRA GARZADOB:1935 ( 89 yo M)Acc No.[id number]:10/19/2024 Patient: SHIRA LYONS Provider: Florinda Almodovar M.D. :1935 A ge:89 Y S ex:Male Date:10/19/2024 Address:[address] [place], [place] [id number] Subjective: * Chief Complaints: * 1 . Flu vaccine. * Medical History: Objective: * Vitals: Assessment: Plan: * Treatment: * Images: Billing Information: * Visit Code: * Procedure Codes: * Electronic signature of Kia Almodovar MD on 05/09/2025 at 11:53 AM EDT Sign off status: Pending * Provider: Florinda Almodovar M.D. Date: 0 10/19/2024 Generated for Teodora rivera/Nita/Kaushikitting on: 0 05/09/2025 11:53 AM EDT
--- OUTSIDE RECORDS SUMMARY | 2024-11-14 06:45 | XMS_ITS ---
Author Organization [facility] Address [facility] [address] [place] [phone] Care Team Providers Care Lumpia Wrapper Maker Name Role Phone Alexei Almodovar Primary Care Provider [phone] ALEXEI ALMODOVAR Unavailable Unavailable REASON FOR VISIT [...] Encounter Location Date Provider Diagnosis [place] [address] [facility] [address] [place] [phone] 11/14/2024 Alexei Almodovar Encounter for immunization Z23 Assessments Encounter Date Diagnosis (ICD Code) Assessment Notes Treatment Notes Treatment Clinical Notes Section Notes 11/14/2024 Encounter for immunization (ICD-10 - Z23) Plan Of Treatment Next Appt Details Provider Name:Alexei solo, 06/19/2025 11:00:00 AM, [address] [facility], [address], [place], [phone], Progress Notes * SYLVIE GARZA:1935 ( 89 yo M)Acc No.[id number]:11/14/2024 Patient: SHIRA LYONS Provider: Florinda Almodovar M.D. :1935 A ge:89 Y S ex:Male Date:11/14/2024 Address:[address] [place], [place] [address] [id number] Subjective: * Chief Complaints: * 1 . [...] of Kia Almodovar MD on 05/09/2025 at 11:52 AM EDT Sign off status: Pending * Provider: Florinda Almodovar M.D. Date: 0 11/14/2024 Generated for Teodora rivera/Nita/Charles on: 05/09/2025 11:52 AM EDT
--- OUTSIDE RECORDS SUMMARY | 2024-12-13 12:00 | XMS_ITS ---
Author Organization [facility] Address [address] [facility] [address] [place] [id number] Care Team Providers Care Load Planner Name Role Phone Alexei Almodovar Primary Care Provider ALEXEI ALMODOVAR Unavailable Unavailable Romana Thompson Unavailable [phone] Allergies Allergen (clinical drug ingredient) Drug/Non Drug [...] [address] [place], [place] [id number] 12/13/2024 Romana Thompson Aortic valve replace d [...] [address], [place], [id number], Progress Notes * SHIRA GARZADOB:1935 ( 89 yo M)Acc No.[id number]:12/13/2024 Progress Notes Patient: SHIRA LYONS Provider: Romana Thompson M.D. :1935 A ge:89 Y S ex:Male Date:12/13/2024 Address:[address] [place] [address] [id number] Pcp:Alexei Almodovar Subjective: * Chief Complaints: * [...] age 85. Alcohol: no. 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 * Medications: T aking Aspirin 81 MG [...] G 2211 Complex e/[place] [address] [place], [address] PROTHROMBIN TIME, Modifiers: QW , 38272 CAPILLARY BLOOD DRAW, 49419 CBC WITH AUTO DIFF, 3074F SYST BP LT 130 MM HG, 3078F DIAST BP < 80 MM HG * Follow Up: w [facility] * Images: Billing Information: * Visit Code: 62568 Office Visit, Est Pt., Level 3. * Procedure Codes: G2211 Complex e/[place] [address] [place]. [address] PROTHROMBIN TIME. Modifiers: QW 09421 CAPILLARY BLOOD DRAW. 90733 CBC WITH AUTO DIFF. 3074F SYST BP LT 130 MM HG. 3078F DIAST BP < 80 MM HG. * Electronic signature of Romana Thompson MD on 05/09/2025 at 11:49 AM EDT Sign off status: Pending * Provider: Romana Thompson M.D. Date: 0 12/13/2024 Generated for Teodora rivera/Nita/Kaushikitting on: 0 05/09/2025 11:49 AM EDT History and Physical Notes * [...]
--- OUTSIDE RECORDS SUMMARY | 2025-05-09 11:49 | XMS_ITS | Encounter Summary ---
Author Organization test company ([place], [place], [place], [place]) Address [address] [place] [address] Care Team Providers Care Mobile Development Manager Name Role Phone Unavailable Primary Care Provider Unavailabl e Encounter Details Date Type Department Care Team (Late st Contact Info) Description 11/05/2019 Transcribed Document [facility] [place] [address] [place] [address] ProviderPrasanth MD [address] [place] [address] Social History Tobacco Use Types Packs/Day Years Used Date Smoking Tobacco: Never Assessed Sex and Gender Information Value Date Recorded Sex Assigned at Not on file Legal Sex Male 6:49 PM CDT Gender Identity Not on file Sexual Orientation Not on file documented as of this encounter Miscellaneous Notes * Cerner Conversion Note - Historical ProviderMD - 11/05/2019 2:00 AM E COMMERCE ANALYST Pay Clerk Details Entered On: 11/05/2019 0:16 EST Performed On: 11/05/2019 2:00 EST by DESMOND CRUZ RN Order Details Transport Mode Order Detail : Bed (including specialty) Isolation Precautions Order Detail : Standard Precautions Order Detail : N/A IV Order Detail : 1 Oxygen Order Detail : 0 Nurse Collect Order Detail : 1 Lift/Transfer : Minimal Central Line Order Detail : No Room Service : Appropriate Arterial Line : No DESMOND CRUZ RN - 11/05/2019 0:16 EST documented in this encounter Plan of Treatment Not on file documented as of this encounter Visit Diagnoses Not on filedocumented in this encounter
--- OUTSIDE RECORDS SUMMARY | 2025-05-09 11:49 | XMS_ITS | Encounter Summary ---
Author Organization [employer] ([place], [place], [place], [place]) Address [address] [place] [address] Care Team Providers Care Manager Reliability Name Role Phone Unavailable Primary Care Provider Unavailabl e Encounter Details Date Type Department Care Team (Late st Contact Info) Description 11/05/2019 Transcribed Document [facility] [address] [place] [address] ProviderPrasanth MD [facility] [place] [address] Social History Tobacco Use Types Packs/Day Years Used Date Smoking Tobacco: Never Assessed Sex and Gender Information Value Date Recorded Sex Assigned at Not on file Legal Sex Male 6:49 PM CDT Gender Identity Not on file Sexual Orientation Not on file documented as of this encounter Miscellaneous Notes * Cerner Conversion Note - Prasanth ProviderMD - 11/05/2019 3:27 PM WEATHERIZATION AND HOUSING INSPECTOR Treatment Intervention, PT Entered On: 11/07/2019 15:45 [...] CJ WHEELER PTA - 11/07/2019 15:42 EST Long-Term Goals Mobility/Bed Mobility LTG PT Grid Goal [...] 11/07/2019 15:[address] [facility] PT Charges DOG DAYCARE PROVIDER PT Therap. Exercise 15 min-DOG DAYCARE PROVIDER : 1 CJ WHEELER PTA - 11/07/2019 15:42 EST Electronically signed by Nikita [facility] Conversion Laundry Agent Cerner at 01/26/2023 9:10 PM CDT documented in this encounter Plan of Treatment Not on file documented as of this encounter Visit Diagnoses Not on filedocumented in this encounter
--- OUTSIDE RECORDS SUMMARY | 2025-05-09 11:49 | XMS_ITS | Encounter Summary ---
Author Organization [employer] ([place], [place], [place], [place]) Address [address] [place] [address] Care Team Providers Care Bee Worker Name Role Phone Unavailable Primary Care Provider Unavailabl e Encounter Details Date Type Department Care Team (Late st Contact Info) Description 11/05/2019 Transcribed Document [facility] [place] Family Medicine [address] [place] [address] ProviderPrasanth MD [address] [place] [address] Social History Tobacco Use Types Packs/Day Years Used Date Smoking Tobacco: Never Assessed Sex and Gender Information Value Date Recorded Sex Assigned at Not on file Legal Sex Male 6:49 PM CDT Gender Identity Not on file Sexual Orientation Not on file documented as of this encounter Miscellaneous Notes * Cerner Conversion Note - Historical ProviderMD - 11/05/2019 3:20 AM WAITER/WAITRESS Height and Weight, Routine Entered On: 11/05/2019 3:21 EST Performed On: 11/05/2019 3:20 EST by Sal Hurt, Publicity PersonHealth Unit Coord Height and Weight, Routine Routine Weight Source : Bed scale Routine Weight Entry Format : Metric Routine Weight, Kilograms : 93.1 kg(Converted to: 205 lb 4 oz) Routine Weight Calculation : 93.1 kg Height Source : Stated Height Entry Format : [place] Height, Feet : 5 ft Height, Inches : 9 Inch Clinical Height : 175.26 cm Body Surface Area (BSA), Routine : 2.09 m2 Body Mass Index (BMI), Routine : 30.31 kg/m2 Sal Hurt, Publicity Person-Health Unit Coord - 11/05/2019 3:20 EST Electronically signed by Nikita [facility] Conversion Truck Engine Technician Cerner at 01/26/2023 8:58 PM CDT documented in this encounter Plan of Treatment Not on file documented as of this encounter Visit Diagnoses Not on filedocumented in this encounter
--- OUTSIDE RECORDS SUMMARY | 2025-05-09 11:49 | XMS_ITS | Encounter Summary ---
Author Organization [employer] ([place], [place], [place], [place]) Address [address] [place] [address] Care Team Providers Care Trust Clerk Name Role Phone Unavailable Primary Care Provider Unavailabl e Encounter Details Date Type Department Care Team (Late st Contact Info) Description 11/05/2019 Transcribed Document [facility] [place] Family Medicine [address] [place] [address] ProviderPrasanth MD [address] [place] [address] Social History Tobacco Use Types Packs/Day Years Used Date Smoking Tobacco: Never Assessed Sex and Gender Information Value Date Recorded Sex Assigned at Not on file Legal Sex Male 6:49 PM CDT Gender Identity Not on file Sexual Orientation Not on file documented as of this encounter Miscellaneous Notes * Cerner Conversion Note - Prasanth ProviderMD - 11/05/2019 9:53 AM HIV/AIDS CARE NURSE Evaluation, Physical Therapy Entered On: 11/05/2019 15:26 [...] : Left Right UE Active ROM : WF Right UE Strength : WFL Left UE Active ROM : WF Left UE Strength : WF PB BROWNLEE, PT - 11/05/2019 15:11 EST Lower Extremity RLE Active ROM : WF Right LE Strength : [facility] LLE Active ROM : WF Left LE Strength : WF PB BROWNLEE, [...] PB BROWNLEE, PT - 11/05/2019 15:11 EST Assisted Goals Mobility/Bed Mobility LTG PT Grid Goal [...] PB BROWNLEE, PT - 11/05/2019 15:11 EST Rector PT Charges PT Eval Moderate Complexity : 1 PB BROWNLEE, PT - 11/05/2019 15:11 EST Electronically signed by Nikita [facility] Conversion Playground Official Cerner at 01/26/2023 8:52 PM CDT documented in this encounter Plan of Treatment Not on file documented as of this encounter Visit Diagnoses Not on filedocumented in this encounter
--- OUTSIDE RECORDS SUMMARY | 2025-05-09 11:49 | XMS_ITS | Encounter Summary ---
Author Organization [employer] ([place], [place], [place], [place]) Address [address] [place] [address] Care Team Providers Care Bike Shop Manager Name Role Phone Unavailable Primary Care Provider Unavailabl e Encounter Details Date Type Department Care Team (Late st Contact Info) Description 11/04/2019 Transcribed Document [facility] [place] Medicine [address] [place] [address] ProviderPrasanth MD [address] [place] [address] Social History Tobacco Use Types Packs/Day Years Used Date Smoking Tobacco: Never Assessed Sex and Gender Information Value Date Recorded Sex Assigned at Not on file Legal Sex Male 6:49 PM CDT Gender Identity Not on file Sexual Orientation Not on file documented as of this encounter Miscellaneous Notes * Cerner Conversion Note - Historical ProviderMD - 11/04/2019 11:15 PM CASH POSTING REPRESENTATIVE ED Discharge Entered On: 11/04/2019 23:36 EST [...] 11/04/2019 23:34 EST Electronically signed by Nikita [facility] Conversion Proof Coin Collector Devynner at 01/26/2023 9:09 PM CDT documented in this encounter Plan of Treatment Not on file documented as of this encounter Visit Diagnoses Not on filedocumented in this encounter
--- OUTSIDE RECORDS SUMMARY | 2025-05-09 11:49 | XMS_ITS | Encounter Summary ---
Author Organization [employer] ([place], [place], [place], [place]) Address [address] [place] [address] Care Team Providers Care Cancer Researcher Name Role Phone Unavailable Primary Care Provider Unavailabl e Encounter Details Date Type Department Care Team (Late st Contact Info) Description 11/05/2019 Transcribed Document [facility] Neurology - [address] [facility] [address] [place] [address] Lesly Chiang Jr., MD [facility] [place] [address] Social History Tobacco Use Types Packs/Day Years [...]
--- OUTSIDE RECORDS SUMMARY | 2025-05-09 11:49 | XMS_ITS | Encounter Summary ---
Author Organization [employer] ([place], [place], [place], [place]) Address [address] [place] [address] Care Team Providers Care Director Process Name Role Phone Unavailable Primary Care Provider Unavailabl e Encounter Details Date Type Department Care Team (Late st Contact Info) Description 11/05/2019 Transcribed Document [facility] Neurology - [address] [place] [address] Titus Rasheed Jr., MD [address] [place] [address] Social History Tobacco Use Types [...] Lymph # 1.32 x10(3)/uL 11/04/2019 20:08 EST Carter % 9.6 % (High) 11/04/2019 20:08 EST Carter # 0.61 K/uL 11/04/2019 20:08 EST Eos [...]
--- OUTSIDE RECORDS SUMMARY | 2025-05-09 11:49 | XMS_ITS | Encounter Summary ---
Author Organization [employer] ([place], [place], [place], [place]) Address [address] [place] [address] Care Team Providers Care Concreting Supervisor Name Role Phone Unavailable Primary Care Provider Unavailabl e Encounter Details Date Type Department Care Team (Late st Contact Info) Description 11/04/2019 Transcribed Document [facility] Neurology - [address] [place] [address] Titus Rasheed Jr., MD [address] [place] [address] Social History Tobacco Use Types [...] acute subdural hematoma in the right posterior baptism area, just above the petrous bone. It [...] family was present when I saw him. /[id number] Titus Rasheed Jr, MD RDO/AQ / RDO / MODL /[id number] documented in this encounter Plan of Treatment Not on file documented as of this encounter Visit Diagnoses Not on filedocumented in this encounter
--- OUTSIDE RECORDS SUMMARY | 2025-05-09 11:49 | XMS_ITS | Encounter Summary ---
Author Organization [employer] ([place], [place], [place], [place]) Address [address] [place] [address] Care Team Providers Care Reporting Consultant Name Role Phone Unavailable Primary Care Provider Unavailabl e Encounter Details Date Type Department Care Team (Late st Contact Info) Description 11/05/2019 Transcribed Document [facility] [place] Family Medicine [address] [place] [address] ProviderPrasanth MD [address] [place] [address] Social History Tobacco Use Types Packs/Day Years Used Date Smoking Tobacco: Never Assessed Sex and Gender Information Value Date Recorded Sex Assigned at Not on file Legal Sex Male 6:49 PM CDT Gender Identity Not on file Sexual Orientation Not on file documented as of this encounter Miscellaneous Notes * Cerner Conversion Note - Prasanth ProviderMD - 11/05/2019 5:51 PM DECKHAND SHRIMP BOAT Initial Discharge Planning Entered On: 11/05/2019 17:54 EST Performed On: 11/05/2019 17:51 EST by ROSANA CALLEJAS RN-Malt Specifications Control Assistant Initial Assessment I Previously Documented Living Environment [...] Listed? : Yes Medical Durable Power of Assembly Line Worker Name : Legal Guardian : No ROSANA CALLEJAS RN-Malt Specifications Control Assistant - 11/05/2019 17:51 EST Initial Assessment II Sensory and Motor Deficits : None Deficit Description : glasses Current Home Treatments and Equipment : None Services and Community Resources Addl Comments : Workout @ local Facility Gym 3x/wk Does the Patient have a Floor to SNF Benefit? : Yes ROSANA CALLEJAS RN-Malt Specifications Control Assistant - 11/05/2019 17:51 EST Discharge Needs I Anticipated Discharge To, CM : Home independently Current Home Treatment/Equipment : Current Home Treatment/Equipment No qualifying data available. Documentation Status Complete : Yes ROSANA CALLEJAS RN-Malt Specifications Control Assistant - 11/05/2019 17:51 EST Discharge Needs II Professional Skilled Services : Professional Skilled Services No qualifying data available. Needs Assistance with Transportation : No ROSANA CALLEJAS RN-Malt Specifications Control Assistant - 11/05/2019 17:51 EST Narrative Note Narrative [...] and assist w/needs as approp. ROSANA CALLEJAS RN-Malt Specifications Control Assistant - 11/05/2019 17:51 EST documented in this encounter Plan of Treatment Not on file documented as of this encounter Visit Diagnoses Not on filedocumented in this encounter
--- OUTSIDE RECORDS SUMMARY | 2025-05-09 11:49 | XMS_ITS | Encounter Summary ---
Author Organization [employer] ([place], [place], [place], [place]) Address [address] [place] [address] Care Team Providers Care Gravity Prospecting Operator Name Role Phone Unavailable Primary Care Provider Unavailabl e Encounter Details Date Type Department Care Team (Late st Contact Info) Description 11/05/2019 Transcribed Document [facility] [place] [address] [place] [address] ProviderPrasanth MD [address] [place] [address] Social History Tobacco Use Types Packs/Day Years Used Date Smoking Tobacco: Never Assessed Sex and Gender Information Value Date Recorded Sex Assigned at Not on file Legal Sex Male 6:49 PM CDT Gender Identity Not on file Sexual Orientation Not on file documented as of this encounter Miscellaneous Notes * Cerner Conversion Note - Prasanth ProviderMD - 11/05/2019 8:53 AM CLINICAL TRIAL MANAGER Patient: SHIRA GARZA HORACIO Age: 84 [...] 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 The patient was transported to the emergency [...] 10/29/2019 obtain echocardiogram CAD s/p 5V CABG [facility] 09/2019 revealed patent grafts continue [...] Diagnostics EKG complete heart block Echo pe documented in this encounter Plan of Treatment Not on file documented as of this encounter Visit Diagnoses Not on filedocumented in this encounter
--- OUTSIDE RECORDS SUMMARY | 2025-05-09 11:49 | XMS_ITS | Encounter Summary ---
Author Organization [employer] ([place], [place], [place], [place]) Address [address] [place] [address] Care Team Providers Care Cycle Repairer Name Role Phone Unavailable Primary Care Provider Sharif miles Encounter Details Date Type Department Care Team (Late st Contact Info) Description 11/05/2019 Transcribed Document [facility] [place] Family Medicine [address] [place] [address] ProviderPrasanth MD [facility] [address] Social History Tobacco Use Types Packs/Day Years Used Date Smoking Tobacco: Never Assessed Sex and Gender Information Value Date Recorded Sex Assigned at Not on file Legal Sex Male 6:49 PM CDT Gender Identity Not on file Sexual Orientation Not on file documented as of this encounter Miscellaneous Notes * Cerner Conversion Note - Prasanth ProviderMD - 11/05/2019 9:53 AM WAD BLANKING PRESS ADJUSTER Evaluation, Occupational Therapy Entered On: 11/06/2019 14:25 [...] : 11/04/2019 21:19 Co-treated by, OT : speech and language assistant (DIRECTOR TALENT MANAGEMENT) Assisted by, OT : data reduction technician/aide Personal Devices : Personal Devices Glasses Assistive Devices : Assistive Devices No Devices Recorded General Information Comment, OT : 84 yo female who was admitted to [facility] on 11/04 for cardiac arrhythmias/heart block, elevated [...] within reach RN/PCT Informed Comment : WILL Banerjee RN requested bed level eval only secondary [...] ROM : WF Left UE Strength : [facility] Upper Extremity Strength Impaired : No Right UE Strength : [facility] Left UE Strength : [facility] Upper Extremity Comment : BUE ROM and MMT [facility] BESS VINCENT, OTR/L - 11/06/2019 14:12 EST [...] Toilet Transfer Assist Level : Assist, minimal LEVECHOBESS SANCHEZ, OTR/L - 11/06/2019 14:12 EST Mobility Device/Prosthesis/Wt Bearing Weight Bearing Status Maintained : Yes Weight Bearing Status : Full MELISA BESS Amaury, OTR/L - 11/06/2019 14:12 EST Cognition Assessment, OT Orientation : Oriented x 4 Cognition Assessment, OT : Intact Comprehension Assessment, OT : Intact MELISA BESS Amaury, OTR/L - 11/06/2019 14:12 EST Education OT Occupational Therapy Education Grid Activity of Daily Living Training : Needs further teaching Functional Mobility Training : Needs further teaching Role of Occupational Therapy : Verbalizes understanding BESS VINCENT Amaury, OTR/L - 11/06/2019 14:12 EST Teaching/Learning Assessment Barriers To Learning : None evident Individuals Taught : Patient Readiness to Learn : Cooperative Highest Level of Education : University degree(s) Readiness to Learn : Explanation Learning Style Preferences Patient : Verbal explanation MELISA ALYXAARONNELSON Amaury, OTR/L - 11/06/2019 14:12 EST Indication Assessment, OT Occupational Therapy Indicated : Yes Problem List, OT : Impaired, bed mobility, Impaired, activities daily living, Impaired, endurance tolerance, Impaired functional mobility, Impaired, standing balance, Impaired, strength, Impaired, transfers Potential Barriers, OT : None evident Rehabilitation Potential, OT : Good MELISA ALYXAARONNELSON Amaury, OTR/L - 11/06/2019 14:12 EST Plan of Care, OT OT Tx Plan/Goals Established w Patient : Yes OT Frequency Rehab : Five days per week OT Duration Rehab : Fourteen days OT Treatments Planned : Activities of daily living, Balance training, Functional mobility training, Safety education, Therapeutic activities, Therapeutic exercises BESS VINCENT OTR/L - 11/06/2019 14:12 EST Snf Goals, OT Grooming LTG Grid Goal #1 Activity : Grooming Cues : No cues Assist : Independent, complete Date to Meet : 11/20/2019 EST Goal Status : Initial goal Comment : Standing at sink BESS VINCENT OTR/L - 11/06/2019 14:12 EST Bathing LTG Grid Goal #1 Activity : Bathing Cues : No cues Assist : Independent, complete Date to Meet : 11/20/2019 EST Goal Status : Initial goal BESS VINCENT OTR/L - 11/06/2019 14:12 EST Dressing, Lower [...] BESS VINCENT OTR/L - 11/06/2019 14:12 EST Bed Mobility/ [...] BESS VINCENT OTR/L - 11/06/2019 14:12 EST Treatment Note [...] for Treatment : See POC BESS VINCENT OTR/Chio - 11/06/2019 14:12 EST Pain Assessment Pain [...] BESS VINCENT OTR/Chio - 11/06/2019 14:12 EST [place] OT Charges OT Eval Moderate Complexity : 1 BESS VINCENT OTR/L - 11/06/2019 14:12 EST Electronically signed by Filiberto Shelton Conversion Telephone Station Installer Cerner at 01/26/2023 8:57 PM CDT documented in this encounter Plan of Treatment Not on file documented as of this encounter Visit Diagnoses Not on filedocumented in this encounter
--- OUTSIDE RECORDS SUMMARY | 2025-05-09 11:49 | XMS_ITS | Encounter Summary ---
Author Organization [employer] ([place], [place], [place], [place]) Address [address] [place] [address] Care Team Providers Care Insulation Sprayer Name Role Phone Unavailable Primary Care Provider Unavailabl e Encounter Details Date Type Department Care Team (Late st Contact Info) Description 11/05/2019 Transcribed Document [facility] [place] [address] [place] [address] ProviderPrasanth MD [address] [place] [address] Social History Tobacco Use Types Packs/Day Years Used Date Smoking Tobacco: Never Assessed Sex and Gender Information Value Date Recorded Sex Assigned at Not on file Legal Sex Male 6:49 PM CDT Gender Identity Not on file Sexual Orientation Not on file documented as of this encounter Miscellaneous Notes * Cerner Conversion Note - Prasanth ProviderMD - 11/05/2019 5:54 PM WINE MAKER On Going Discharge Planning Entered On: 11/05/2019 17:54 EST Performed On: 11/05/2019 17:54 EST by ROSANA CALLEJAS RN-Machine Wood SanderWool Fleece Grader Progress Note Discharge Arrangements : Patient Post-Acute Information Patient Name: SHIRA GARZA HORACIO Gender: Male : 37 Age: 84 Years No Post-Acute Placement(s) Listed No Post-Acute Service(s) Listed No [place] Referral(s) Listed Discharge Plan Comment : home w/ ROSANA CALLEJAS RN-Machine Wood Sander - 11/05/2019 17:54 EST Narrative Progress Note [...] and assist w/needs as approp. ROSANA CALLEJAS, RN-Machine Wood Sander - 11/05/2019 17:54 EST Electronically signed by Nikita [facility] Conversion Supervisor Trust Accounts Cerner at 01/26/2023 8:50 PM CDT documented in this encounter Plan of Treatment Not on file documented as of this encounter Visit Diagnoses Not on filedocumented in this encounter
--- OUTSIDE RECORDS SUMMARY | 2025-05-09 11:49 | XMS_ITS | Encounter Summary ---
Author Organization [employer] ([place], [place], [place], [place]) Address [address] [place] [address] Care Team Providers Care Earth Auger Operator Name Role Phone Unavailable Primary Care Provider Unavailabl e Encounter Details Date Type Department Care Team (Late st Contact Info) Description 11/05/2019 Transcribed Document [facility] [place] [address] [place] [address] ProviderPrasanth MD [address] [place] [address] Social History Tobacco Use Types Packs/Day Years Used Date Smoking Tobacco: Never Assessed Sex and Gender Information Value Date Recorded Sex Assigned at Not on file Legal Sex Male 6:49 PM CDT Gender Identity Not on file Sexual Orientation Not on file documented as of this encounter Miscellaneous Notes * Cerner Conversion Note - Historical ProviderMD - 11/05/2019 5:00 PM LVN LPN Chart Check - Review Order Profile Entered On: 11/05/2019 17:41 EST Performed On: 11/05/2019 17:00 EST by MARIBELL MIMS RN Chart Check Powerplans Initiated/Discontinued as Appropriate : Yes MARIBELL MIMS RN - 11/05/2019 17:41 EST Electronically signed by Nikita [facility] Conversion Patient Access Coordinator Devynner at 01/26/2023 8:55 PM CDT documented in this encounter Plan of Treatment Not on file documented as of this encounter Visit Diagnoses Not on filedocumented in this encounter
--- OUTSIDE RECORDS SUMMARY | 2025-05-09 11:49 | XMS_ITS | Encounter Summary ---
Author Organization [employer] ([place], [place], [place], [place]) Address [address] [place] [address] Care Team Providers Care Sock Boarder Name Role Phone Unavailable Primary Care Provider Unavailabl e Encounter Details Date Type Department Care Team (Late st Contact Info) Description 09/25/2019 Transcribed Document [facility] [place] Medicine [address] [place] [address] ProviderPrasanth MD [facility] [place] [address] Social History Tobacco Use Types Packs/Day Years Used Date Smoking Tobacco: Never Assessed Sex and Gender Information Value Date Recorded Sex Assigned at Not on file Legal Sex Male 6:49 PM CDT Gender Identity Not on file Sexual Orientation Not on file documented as of this encounter Miscellaneous Notes * Cerner Conversion Note - Historical ProviderMD - 09/25/2019 10:53 PM GENERAL OPERATIONS MANAGER Event Note Entered On: 09/25/2019 22:54 EST Performed On: 09/25/2019 22:53 EST by Phyllis Singletary RN Event Note Description of Event : Transferred patient to [facility] after giving report by phone to Alphonse SOLIS. Phyllis Singletary RN - 09/25/2019 22:53 EST Electronically signed by Carla Shelton Conversion Food Cooking Machine Operator Cerner at 01/26/2023 9:04 PM CDT documented in this encounter Plan of Treatment Not on file documented as of this encounter Visit Diagnoses Not on filedocumented in this encounter
--- OUTSIDE RECORDS SUMMARY | 2025-05-09 11:50 | XMS_ITS | Encounter Summary ---
Author Organization [employer] ([place], [place], [place], [place]) Address [address] [place] [address] Care Team Providers Care Funeral Home Attendant Name Role Phone Unavailable Primary Care Provider Unavailabl e Encounter Details Date Type Department Care Team (Late st Contact Info) Description 11/06/2019 Transcribed Document [facility] Radiology [address] [place] [address] Abel Kapadia MD [address] [place] [address] [address] [place] [address] Social History Tobacco Use Types Packs/Day Years [...] 11/06/2019 12:11 PM EST Patient: SHIRA GARZA Age: 84 years Sex: Male : 1935 Associated Diagnoses: None Author: ABEL KAPADIA MD-INT Subjective DATE OF ADMISSION: 11/04/2019 Date of Discharge PRIMARY CARE PHYSICIAN: Dr. Marcelino Caldera, [facility]. REFERRING PHYSICIAN: Dr. Beckman, [facility] , 1935. CURRENT COMPLAINT: Falls, dizziness, irregular heartbeat. HISTORY OF PRESENT ILLNESS: Shira Garza is an 84-year-old man, , living in the [facility] [place], who recently underwent a transcatheter aortic valve [...] At risk for sleep apnea / IMO [id number] / Confirmed Shortness of breath / SNOMED CT 934857189 / Confirmed Hypertension / SNOMED CT 10324726 / Confirmed Wears glasses / SNOMED CT 206749210 / Confirmed, Active Problems (11) Aortic stenosis [...] 96 (NOV 06 10:00) L 85 (NOV 05:15) 97 (NOV 06 04:30) General: No acute distress. Eye: Normal conjunctiva. Neck: No jugular venous distention. Respiratory: Lungs are clear to auscultation, Respirations are non-labored, Breath sounds are equal. Cardiovascular: Regular rhythm, No gallop, S1+ S2 No S3 or S4 [place].. Gastrointestinal: Soft, Non-tender, Non-distended, Normal bowel sounds. [...] (NOV 04) Radiology Results (Last 48 hours) [id number] -- 11/04/2019 21:19 CT Head WO (11/04/2019 [...] discussed with the patient and RN, TTF once OK with others documented in this encounter Plan of Treatment Not on file documented as of this encounter Visit Diagnoses Not on filedocumented in this encounter
--- OUTSIDE RECORDS SUMMARY | 2025-05-09 11:50 | XMS_ITS | Encounter Summary ---
Author Organization [employer] ([place], [place], [place], [place]) Address [address] [place] [address] Care Team Providers Care Engineer Systems Name Role Phone Unavailable Primary Care Provider Unavailabl e Encounter Details Date Type Department Care Team (Late st Contact Info) Description 11/06/2019 Transcribed Document [facility] [place] Family Medicine [address] [place] [address] ProviderPrasanth MD [address] [place] [address] Social History Tobacco Use Types Packs/Day Years Used Date Smoking Tobacco: Never Assessed Sex and Gender Information Value Date Recorded Sex Assigned at Not on file Legal Sex Male 6:49 PM CDT Gender Identity Not on file Sexual Orientation Not on file documented as of this encounter Miscellaneous Notes * Cerner Conversion Note - Historical ProviderMD - 11/06/2019 12:56 PM WARPER FIXER Education-Surgery Entered On: 11/06/2019 16:00 EST Performed [...]
--- OUTSIDE RECORDS SUMMARY | 2025-05-09 11:50 | XMS_ITS | Encounter Summary ---
Author Organization [employer] ([place], [place], [place], [place]) Address [address] [place] [address] Care Team Providers Care Account Contact Associate Name Role Phone Unavailable Primary Care Provider Unavailabl e Encounter Details Date Type Department Care Team (Late st Contact Info) Description 10/30/[address] [facility] [place] [address] [place] [address] ProviderPrasanth MD [address] [place] [address] Social History Tobacco Use Types Packs/Day Years Used Date Smoking Tobacco: Never Assessed Sex and Gender Information Value Date Recorded Sex Assigned at Not on file Legal Sex Male 6:49 PM CDT Gender Identity Not on file Sexual Orientation Not on file documented as of this encounter Miscellaneous Notes * Cerner Conversion Note - Prasanth ProviderMD - 10/30/2019 3:13 PM INSTRUMENT REPAIRER HELPER Nursing Discharge Summary Entered On: 10/30/2019 15:14 EST Performed On: 10/30/2019 15:13 EST by Jason Thompson, ada accommodation consultant Documentation Discharge Date/Time : 10/30/2019 15:13 EST [...] 10/30/2019 15:13 EST Electronically signed by Nikita [facility] Conversion Soft Shoe Dancer Cerner at 01/26/2023 8:54 PM CDT documented in this encounter Plan of Treatment Not on file documented as of this encounter Visit Diagnoses Not on filedocumented in this encounter
--- OUTSIDE RECORDS SUMMARY | 2025-05-09 11:50 | XMS_ITS | Encounter Summary ---
Author Organization [employer] ([place], [place], [place], [place]) Address [address] [place] [address] Care Team Providers Care Event Executive Name Role Phone Unavailable Primary Care Provider Unavailabl e Encounter Details Date Type Department Care Team (Late st Contact Info) Description 06/02/2021 Transcribed Document [facility] [place] [facility] [place] [address] ProviderPrasanth MD [facility] [place] [address] Social History Tobacco Use Types Packs/Day Years Used Date Smoking Tobacco: Never Assessed Sex and Gender Information Value Date Recorded Sex Assigned at Not on file Legal Sex Male 6:49 PM CDT Gender Identity Not on file Sexual Orientation Not on file documented as of this encounter Miscellaneous Notes * Cerner Conversion Note - Prasanth Sanchez MD - 06/02/2021 11:57 AM CDT Patient: SHIRA [...] continuous telemetry monitoring - No plans for [facility] at this time - Continue medical management [...]
--- OUTSIDE RECORDS SUMMARY | 2025-05-09 11:50 | XMS_ITS | Encounter Summary ---
Author Organization [employer] ([place], [place], [place], [place]) Address [address] [place] [address] Care Team Providers Care Aviation Program Manager Name Role Phone Unavailable Primary Care Provider Unavailabl e Encounter Details Date Type Department Care Team (Late st Contact Info) Description 11/05/2019 Transcribed Document [facility] [place] [address] [place] [address] ProviderPrasanth MD [address] [place] [address] Social History Tobacco Use Types Packs/Day Years Used Date Smoking Tobacco: Never Assessed Sex and Gender Information Value Date Recorded Sex Assigned at Not on file Legal Sex Male 6:49 PM CDT Gender Identity Not on file Sexual Orientation Not on file documented as of this encounter Miscellaneous Notes * [employer]ner Conversion Note - Historical ProviderMD - 11/05/2019 8:00 AM CAD TECHNICIAN Consult Phone Call Documentation Entered On: 11/05/2019 8:22 EST Performed On: 11/05/2019 8:00 EST by Iris Banerjee, [facility] Coord Phone Call for Consults Consult Phone Call/Page Attempt : First call Consult Reason : 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
--- OUTSIDE RECORDS SUMMARY | 2025-05-09 11:50 | XMS_ITS | Encounter Summary ---
Author Organization [employer] ([place], [place], [place], [place]) Address [address] [place] [address] Care Team Providers Care Dry Press Operator Name Role Phone Unavailable Primary Care Provider Unavailabl e Encounter Details Date Type Department Care Team (Late st Contact Info) Description 10/30/2019 Transcribed Document [facility] [place] Family Medicine [address] [place] [address] ProviderPrasanth MD [address] [place] [address] Social History Tobacco Use Types Packs/Day Years Used Date Smoking Tobacco: Never Assessed Sex and Gender Information Value Date Recorded Sex Assigned at Not on file Legal Sex Male 6:49 PM CDT Gender Identity Not on file Sexual Orientation Not on file documented as of this encounter Miscellaneous Notes * Cerner Conversion Note - Prasanth ProviderMD - 10/30/2019 8:23 AM LEAD HOUSEKEEPER UM Authorization Entered On: 10/30/2019 8:23 EST Performed On: 10/30/2019 8:23 EST by ENDER LOMBARDO RN Primary Insurance Authorization Authorization and Policy Numbers : Insurance 1 Health Plan: MEDICARE Policy Number: [id number] Authorization Number: Insurance 2 Health Plan: [employer] N Policy Number: [id number] Authorization Number: Insurance Primary Name : MEDICARE Policy Number: [id number] Historical Authorization Comments-Primary : No Authorization Comments Found ENDER LOMBARDO RN - 10/30/2019 8:23 EST Electronically signed by Carla Shelton Conversion Campaign Marketing Specialist Cerner at 01/26/2023 8:54 PM CDT documented in this encounter Plan of Treatment Not on file documented as of this encounter Visit Diagnoses Not on filedocumented in this encounter
--- OUTSIDE RECORDS SUMMARY | 2025-05-09 11:50 | XMS_ITS | Encounter Summary ---
Author Organization [employer] ([place], [place], [place], [place]) Address [address] [place] [address] Care Team Providers Care Inspector Material Disposition Name Role Phone Unavailable Primary Care Provider Unavailabl e Encounter Details Date Type Department Care Team (Late st Contact Info) Description 10/29/2019 Transcribed Document [facility] [place] [facility] [place] [address] ProviderPrasanth MD [facility] [place] [address] Social History Tobacco Use Types Packs/Day Years Used Date Smoking Tobacco: Never Assessed Sex and Gender Information Value Date Recorded Sex Assigned at Not on file Legal Sex Male 6:49 PM CDT Gender Identity Not on file Sexual Orientation Not on file documented as of this encounter Miscellaneous Notes * Cerner Conversion Note - Prasanth ProviderMD - 10/29/2019 6:00 AM ELECTION ASSISTANT Patient: SHIRA GARZA HORACIO Age: 84 years [...] All Problems Wears glasses / SNOMED CT 701277523 / Confirmed Right bundle branch block / SNOMED CT 80545215 / Confirmed Renal calculus / SNOMED CT 704395698 / Confirmed Hypertension / SNOMED CT 52994557 / Confirmed Hyperlipidemia / SNOMED CT 79386345 / Confirmed Shortness of breath / SNOMED CT 165308364 / Confirmed CAD (coronary artery disease) / SNOMED CT 66725167 / Confirmed 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 Integumentary: Warm, Dry, [place]. Neurologic: Alert, Oriented. Psychiatric: Cooperative, Appropriate mood [...] 26) . Impression and Plan Condition: Stable. documented in this encounter Plan of Treatment Not on file documented as of this encounter Visit Diagnoses Not on filedocumented in this encounter
--- OUTSIDE RECORDS SUMMARY | 2025-05-09 11:50 | XMS_ITS | Encounter Summary ---
Author Organization [employer] ([place], [place], [place], [place]) Address [address] [place] [address] Care Team Providers Care Registered Travel Nurse Name Role Phone Unavailable Primary Care Provider Unavailabl e Encounter Details Date Type Department Care Team (Late st Contact Info) Description 06/02/2021 Transcribed Document [facility] [place] [facility] [place] [address] ProviderPrasanth [place] [address] Social History Tobacco Use Types [...] : 2 - Emergent Tracking Group : [facility] ED Marisela Mendenhall RN - 06/02/2021 10:01 EDT Mode [...] EDT) Problems(Active) Aortic valve stenosis (SNOMED CT :249904386 ) Name of Problem: Aortic valve stenosis ; Recorder: JIMI MCNEIL RN; Confirmation: Confirmed ; Classification: Medical ; Code: 781198699 ; Contributor System: RecruitTalk ; Last Updated: 08/05/2020 10:36 EDT ; Life Cycle Status: Active ; Vocabulary: SNOMED CT At risk for sleep apnea (IMO :70506741 ) Name of Problem: At risk for sleep apnea ; Recorder: SYSTEM, SYSTEM; Confirmation: Confirmed ; Classification: Medical ; Code: 11742932 ; Last Updated: 11/14/2018 7:19 EST ; Life Cycle Date: 11/14/2018 ; Life Cycle Status: Active ; Vocabulary: IMO At risk for sleep apnea (IMO :82447948 ) Name of Problem: At risk for sleep apnea ; Recorder: SYSTEM, SYSTEM; Confirmation: Confirmed ; Classification: Medical ; Code: 78421304 ; Last Updated: 08/04/2020 12:17 EDT ; Life Cycle Date: 08/04/2020 ; Life Cycle Status: Active ; Vocabulary: IMO Atrial fibrillation (SNOMED CT :09100476 ) Name of Problem: Atrial fibrillation ; Recorder: JIMI MCNEIL RN; Confirmation: Confirmed ; Classification: Medical ; Code: 17268583 ; Contributor System: Uplift EducationChart ; Last Updated: 08/05/2020 10:36 EDT ; Life Cycle Status: Active ; Vocabulary: SNOMED CT Atrial flutter (SNOMED CT :9499654 ) Name of Problem: Atrial flutter ; Recorder: RADHA TERRAZAS RN; Confirmation: Confirmed ; Classification: Patient Stated ; Code: 4026674 ; Contributor System: PowerChart ; Last Updated: 11/14/2018 7:26 EST ; Life Cycle Date: 11/14/2018 ; Life Cycle Status: Active ; Vocabulary: SNOMED CT Benign neoplastic disease (SNOMED CT :82386195 ) Name of Problem: Benign neoplastic disease ; Recorder: AV KING RN; Confirmation: Confirmed ; Classification: Patient Stated ; Code: 67303375 ; Contributor System: PowerChart ; Last Updated: 09/11/2019 7:15 EST ; Life Cycle Date: 09/11/2019 ; Life Cycle Status: Active ; Vocabulary: SNOMED CT CAD - Coronary artery disease (SNOMED CT :3375504031 ) Name of Problem: CAD - Coronary artery disease ; Recorder: JIMI MCNEIL RN; Confirmation: Confirmed ; Classification: Medical ; Code: 5674247294 ; Contributor System: PowerChart ; Last Updated: 08/05/2020 10:36 EDT ; Life Cycle Status: Active ; Vocabulary: SNOMED CT CAD (coronary artery disease) (SNOMED CT :86955328 ) Name of Problem: CAD (coronary artery disease) ; Recorder: RADHA TERRAZAS RN; Confirmation: Confirmed ; Classification: Patient Stated ; Code: 76347342 ; Contributor System: PowerChart ; Last Updated: 11/14/2018 7:27 EST ; Life Cycle Date: 11/14/2018 ; Life Cycle Status: Active ; Vocabulary: SNOMED CT Chest pain (SNOMED CT :61309401 ) Name of Problem: Chest pain ; Recorder: SALLY BARNETT RN; Confirmation: Confirmed ; Classification: Patient Stated ; Code: 17168557 ; Contributor System: PowerChart ; Last Updated: 07/22/2020 9:12 EDT ; Life Cycle Date: 07/22/2020 ; Life Cycle Status: Active ; Vocabulary: SNOMED CT H/O aortic valve replacement (SNOMED CT :8688042982 ) Name of Problem: H/O aortic valve replacement ; Recorder: WALTER POWELL RN; Confirmation: Confirmed ; Classification: Patient Stated ; Code: 0462851718 ; Contributor System: PowerChart ; Last Updated: 08/04/2020 12:06 EDT ; Life Cycle Date: 08/04/2020 ; Life Cycle Status: Active ; Vocabulary: SNOMED CT Hard of hearing (SNOMED CT :394547262 ) Name of Problem: Hard of hearing ; Recorder: WALTER POWELL RN; Confirmation: Confirmed ; Classification: Patient Stated ; Code: 126350227 ; Contributor System: PowerChart ; Last Updated: 08/04/2020 11:53 EDT ; Life Cycle Date: 08/04/2020 ; Life Cycle Status: Active ; Vocabulary: SNOMED CT HLD - Hyperlipidemia (SNOMED CT :572031090 ) Name of Problem: HLD - Hyperlipidemia ; Recorder: JIMI MCNEIL RN; Confirmation: Confirmed ; Classification: Medical ; Code: 510127061 ; Contributor System: PowerChart ; Last Updated: 08/05/2020 10:36 EDT ; Life Cycle Status: Active ; Vocabulary: SNOMED CT HTN - Hypertension (SNOMED CT :9104459605 ) Name of Problem: HTN - Hypertension ; Recorder: JIMI MCNEIL RN; Confirmation: Confirmed ; Classification: Medical ; Code: 5704701120 ; Contributor System: PowerChart ; Last Updated: 08/05/2020 10:36 EDT ; Life Cycle Status: Active ; Vocabulary: SNOMED CT Hyperlipidemia (SNOMED CT :27331277 ) Name of Problem: Hyperlipidemia ; Recorder: AV KING RN; Confirmation: Confirmed ; Classification: Patient Stated ; Code: 00493113 ; Contributor System: PowerChart ; Last Updated: 09/11/2019 6:25 EST ; Life Cycle Date: 09/11/2019 ; Life Cycle Status: Active ; Vocabulary: SNOMED CT Hyperlipidemia (SNOMED CT :13628585 ) Name of Problem: Hyperlipidemia ; Recorder: WALTER POWELL RN; Confirmation: Confirmed ; Classification: Patient Stated ; Code: 66146497 ; Contributor System: PowerChart ; Last Updated: 08/04/2020 11:53 EDT ; Life Cycle Date: 08/04/2020 ; Life Cycle Status: Active ; Vocabulary: SNOMED CT Hypertension (SNOMED CT :60285369 ) Name of Problem: Hypertension ; Recorder: HILDA ANTHONY RN; Confirmation: Confirmed ; Classification: Medical ; Code: 50956971 ; Contributor System: PowerChart ; Last Updated: 10/26/2019 9:33 EST ; Life Cycle Date: 10/26/2019 ; Life Cycle Status: Active ; Vocabulary: SNOMED CT Hypertension (SNOMED CT :17227797 ) Name of Problem: Hypertension ; Recorder: WALTER POWELL RN; Confirmation: Confirmed ; Classification: Patient Stated ; Code: 24549125 ; Contributor System: PowerChart ; Last Updated: 08/04/2020 11:53 EDT ; Life Cycle Date: 08/04/2020 ; Life Cycle Status: Active ; Vocabulary: SNOMED CT Impaired vision in both eyes (SNOMED CT :0814035793 ) Name of Problem: Impaired vision in both eyes ; Recorder: AUSTIN FOFANA RN; Confirmation: Confirmed ; Classification: Patient Stated ; Code: 9852931804 ; Contributor System: PowerChart ; Last Updated: 12/03/2019 9:57 EST ; Life Cycle Date: 12/03/2019 ; Life Cycle Status: Active ; Vocabulary: SNOMED CT Right bundle branch block (SNOMED CT :13408322 ) Name of Problem: Right bundle branch block ; Recorder: AV KING RN; Confirmation: Confirmed ; Classification: Patient Stated ; Code: 35029477 ; Contributor System: Uplift EducationChart ; Last Updated: 09/11/2019 7:12 EST ; Life Cycle Date: 09/11/2019 ; Life Cycle Status: Active ; Vocabulary: SNOMED CT Shortness of breath (SNOMED CT :328101845 ) Name of Problem: Shortness of breath ; Recorder: HILDA ANTHONY RN; Confirmation: Confirmed ; Classification: Medical ; Code: 109848583 ; Contributor System: Uplift EducationChart ; Last Updated: 10/26/2019 9:34 EST ; Life Cycle Date: 10/26/2019 ; Life Cycle Status: Active ; Vocabulary: SNOMED CT Wears glasses (SNOMED CT :477366093 ) Name of Problem: Wears glasses ; Recorder: HILDA ANTHONY RN; Confirmation: Confirmed ; Classification: Medical ; Code: 646469637 ; Contributor System: RecruitTalk ; Last Updated: 10/26/2019 9:32 EST ; Life Cycle Date: 10/26/2019 ; Life Cycle Status: Active ; Vocabulary: SNOMED CT Diagnoses(Active) Chest pain Date: 06/02/2021 ; Diagnosis Type: Reason For Visit ; Confirmation: Complaint of ; Clinical Dx: Chest pain ; Classification: Medical ; Clinical Service: Non-Specified ; Code: PNED ; Probability: 0 ; Diagnosis Code: [id number] Weakness Date: 06/02/2021 ; Diagnosis Type: Reason For Visit ; Confirmation: Complaint of ; Clinical Dx: Weakness ; Classification: Medical ; Clinical Service: Non-Specified ; Code: PNED ; Probability: 0 ; Diagnosis Code: [id number] ED Height and Weight Height Source : Stated Height Entry Format : [place] Height, Feet : 5 ft(Converted to: 152 cm, 60 Inch) Height, Inches : 9 Inch(Converted to: 0 ft 9 Inch, 22.86 cm) Clinical Height : 175.26 cm Weight Source, ED : Standing scale Weight Entry Format : [place] Weight, Pounds : 198.4 lb Clinical Dosing Weight : 90.18 kg Body Surface Area (BSA) : 2.06 m2 Body Mass Index : 29.4 kg/m2 (HI) [place] Body Weight (IBW) : 69.73 kg Marisela Mendenhall, WILL - 06/02/2021 10:01 EDT Electronically signed by Nikita [facility] Conversion Host Hostess Cerner at 01/26/2023 8:50 PM CDT documented in this encounter Plan of Treatment Not on file documented as of this encounter Visit Diagnoses Not on filedocumented in this encounter
--- OUTSIDE RECORDS SUMMARY | 2025-05-09 11:50 | XMS_ITS | Encounter Summary ---
Author Organization [employer] ([place], [place], [place], [place]) Address [address] [place] [address] Care Team Providers Care Cull Grader Name Role Phone Unavailable Primary Care Provider Unavailabl e Encounter Details Date Type Department Care Team (Late st Contact Info) Description 11/06/2019 Transcribed Document [facility] [place] [address] [place] [address] ProviderPrasanth MD [address] [place] [address] Social History Tobacco Use Types Packs/Day Years Used Date Smoking Tobacco: Never Assessed Sex and Gender Information Value Date Recorded Sex Assigned at Not on file Legal Sex Male 6:49 PM CDT Gender Identity Not on file Sexual Orientation Not on file documented as of this encounter Miscellaneous Notes * Cerner Conversion Note - Prasanth ProviderMD - 11/06/2019 8:58 AM WHOLESALE AND RETAIL MERCHANT Patient: SHIRA GARZA HORACIO Age: 84 years Sex: Male : 1935 Associated Diagnoses: None Author: CELESTINA RUIZ APRN [facility] CARDIOLOGY PROGRESS NOTE: DIAGNOSIS: 1. 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
--- OUTSIDE RECORDS SUMMARY | 2025-05-09 11:50 | XMS_ITS | Encounter Summary ---
Author Organization [employer] ([place], [place], [place], [place]) Address [address] [place] [address] Care Team Providers Care Windlace Machine Operator Name Role Phone Unavailable Primary Care Provider Unavailabl e Encounter Details Date Type Department Care Team (Late st Contact Info) Description 11/05/2019 Transcribed Document [facility] Family Medicine [address] [place] [address] ProviderPrasanth MD [address] [place] [address] Social History Tobacco Use Types Packs/Day Years Used Date Smoking Tobacco: Never Assessed Sex and Gender Information Value Date Recorded Sex Assigned at Not on file Legal Sex Male 6:49 PM CDT Gender Identity Not on file Sexual Orientation Not on file documented as of this encounter Miscellaneous Notes * Cerner Conversion Note - Historical ProviderMD - 11/05/2019 5:00 AM DUST HANDLER Chart Check - Review Order Profile Entered On: 11/05/2019 4:51 EST Performed On: 11/05/2019 5:00 EST by DESMOND CRUZ RN Chart Check Powerplans Initiated/Discontinued as Appropriate : Yes All Active Orders Reviewed : Yes DESMOND CRUZ RN - 11/05/2019 4:51 EST Electronically signed by Nikita [facility] Conversion Balance Truer Cerner at 01/26/2023 9:05 PM CDT documented in this encounter Plan of Treatment Not on file documented as of this encounter Visit Diagnoses Not on filedocumented in this encounter
--- OUTSIDE RECORDS SUMMARY | 2025-05-09 11:50 | XMS_ITS | Encounter Summary ---
Author Organization [email or web address] ([place], [place], [place], [place]) Address [address] [place] [address] Care Team Providers Care Small Equipment Operator Name Role Phone Unavailable Primary Care Provider Unavailabl e Encounter Details Date Type Department Care Team (Late st Contact Info) Description 11/07/2019 Transcribed Document [facility] [place] [facility] [place] [address] ProviderPrasanth [place] [address] Social History Tobacco Use Types Packs/Day Years Used Date Smoking Tobacco: Never Assessed Sex and Gender Information Value Date Recorded Sex Assigned at Not on file Legal Sex Male 6:49 PM CDT Gender Identity Not on file Sexual Orientation Not on file documented as of this encounter Miscellaneous Notes * Cerner Conversion Note - Prasanth Sanchez MD - 11/07/2019 4:54 PM MEN'S GARMENT FITTER DATE OF PROCEDURE: 11/07/2019 SURGEON: Dinoicio Soliman MD PREOPERATIVE DIAGNOSIS: Complete heart block, [...] A [place] [place] lead model 2088, serial #[id number], was affixed to the right ventricular apex [...] candidate mid posterolateral vein. A [place] [place] vaccine key customer leader model 1458, serial #[id number], was advanced to the distal aspect, and using an M3-M2 configuration, the capture threshold was 1.5 V with lead impedance of 930 ohms. The delivery system was removed in a standard fashion. Next, a [place] vaccine key customer leader model 2088, serial #[id number], was affixed to the right atrial appendage where the Q capture threshold was 0.5 V with lead impedance of 490 ohms, and sensed P-wave 2 mV. All leads were affixed to the prepectoralis fascia using interrupted 0 silk sutures around the retention collars. The pocket was irrigated with antibiotic solution. Hemostasis was achieved. A [employer] pulse generator model [id number], serial #[id number], was attached to the leads and placed [...] device clinic followup, and home remote monitoring. /[id number] Dionicio Soliman MD TCR/AQ / TCR / MODL /[id number] documented in this encounter Plan of Treatment Not on file documented as of this encounter Visit Diagnoses Not on filedocumented in this encounter
--- OUTSIDE RECORDS SUMMARY | 2025-05-09 11:50 | XMS_ITS | Encounter Summary ---
Author Organization [employer] ([place], [place], [place], [place]) Address [address] [place] [address] Care Team Providers Care Tape Folding Machine Operator Name Role Phone Unavailable Primary Care Provider Unavailabl e Encounter Details Date Type Department Care Team (Late st Contact Info) Description 10/30/2019 Transcribed Document [facility] [place] [address] [place] [address] ProviderPrasanth MD [address] [place] [address] Social History Tobacco Use Types Packs/Day Years Used Date Smoking Tobacco: Never Assessed Sex and Gender Information Value Date Recorded Sex Assigned at Not on file Legal Sex Male 6:49 PM CDT Gender Identity Not on file Sexual Orientation Not on file documented as of this encounter Miscellaneous Notes * Cerner Conversion Note - Historical ProviderMD - 10/30/2019 2:00 AM ELECTRICAL CONTROLS ENGINEER Toy Designer Details Entered On: 10/30/2019 4:47 EST Performed On: 10/30/2019 2:00 EST by Rimma Blackmon RN Order Details Order Detail : N/A IV Order Detail : 1 Oxygen Order Detail : 0 Rimma Blackmon RN - 10/30/2019 4:47 EST Electronically signed by Filiberto Shelton Conversion Mortgage Protection Specialist Cerner at 01/26/2023 8:57 PM CDT documented in this encounter Plan of Treatment Not on file documented as of this encounter Visit Diagnoses Not on filedocumented in this encounter
--- OUTSIDE RECORDS SUMMARY | 2025-05-09 11:50 | XMS_ITS | Encounter Summary ---
Author Organization [employer] ([place], [place], [place], [place]) Address [address] [place] [address] Care Team Providers Care Travel Physical Therapist Name Role Phone Unavailable Primary Care Provider Unavailabl e Encounter Details Date Type Department Care Team (Late st Contact Info) Description 11/06/2019 Transcribed Document [facility] [place] Family Medicine [address] [place] [address] ProviderPrasanth MD [address] [place] [address] Social History Tobacco Use Types Packs/Day Years Used Date Smoking Tobacco: Never Assessed Sex and Gender Information Value Date Recorded Sex Assigned at Not on file Legal Sex Male 6:49 PM CDT Gender Identity Not on file Sexual Orientation Not on file documented as of this encounter Miscellaneous Notes * Cerner Conversion Note - Prasanth ProviderMD - 11/06/2019 2:25 PM TEACHER DANCING Initial Discharge Planning Entered On: 11/06/2019 14:29 EST Performed On: 11/06/2019 14:25 EST by BINH SIDDIQI, RN-Honing Machine Set Up Operator Tool Initial Assessment I Previously Documented Living Environment [...] Listed? : Yes Medical Durable Power of Mixing Tank Operator Name : Legal Guardian : No Is Guardianship Needed : No BINH SIDDIQI, RN-Honing Machine Set Up Operator Tool - 11/06/2019 14:25 EST Initial Assessment II Sensory and Motor Deficits : None, Weakness Current Home Treatments and Equipment : None Does the Patient have a Floor to SNF Benefit? : Yes BINH SIDDIQI, RN-Honing Machine Set Up Operator Tool - 11/06/2019 14:25 EST Discharge Needs I Anticipated Discharge Date : 11/08/2019 EST Anticipated Discharge To, CM : Home with home health Current Home Treatment/Equipment : Current Home Treatment/Equipment Current Home Treatments and Equipment: None (11/05/19 17:51:00) Post Acute/Home Treatments : None Documentation Status Complete : Yes BINH SIDDIQI, RN-Honing Machine Set Up Operator Tool - 11/06/2019 14:25 EST Discharge Needs II Professional Skilled Services : Professional Skilled Services No qualifying data available. Needs Assistance with Transportation : No Discharge Options Discussed with Patient : Home Health BINH SIDDIQI, RN-Honing Machine Set Up Operator Tool - 11/06/2019 14:25 EST Narrative Note Narrative [...] and assist w/needs as approp. ROSANA CALLEJAS, RN-Honing Machine Set Up Operator Tool - 11/05/19 17:54:15 BINH SIDDIQI, RN-Honing Machine Set Up Operator Tool - 11/06/2019 14:25 EST Electronically signed by Nikita [facility] Conversion Horseradish Maker Cerner at 01/26/2023 9:08 PM CDT documented in this encounter Plan of Treatment Not on file documented as of this encounter Visit Diagnoses Not on filedocumented in this encounter
--- OUTSIDE RECORDS SUMMARY | 2025-05-09 11:50 | XMS_ITS | Encounter Summary ---
Author Organization [employer] ([place], [place], [place], [place]) Address [address] [place] [address] Care Team Providers Care Service Planner Name Role Phone Unavailable Primary Care Provider Unavailabl e Encounter Details Date Type Department Care Team (Late st Contact Info) Description 11/06/2019 Transcribed Document [facility] [place] Family Medicine [address] [place] [address] ProviderPrasanth MD [address] [place] [address] Social History Tobacco Use Types Packs/Day Years Used Date Smoking Tobacco: Never Assessed Sex and Gender Information Value Date Recorded Sex Assigned at Not on file Legal Sex Male 6:49 PM CDT Gender Identity Not on file Sexual Orientation Not on file documented as of this encounter Miscellaneous Notes * [employer]ner Conversion Note - Historical ProviderMD - 11/06/2019 5:00 PM LACE INSPECTOR Chart Check - Review Order Profile Entered On: 11/06/2019 17:05 EST Performed On: 11/06/2019 17:00 EST by Lavonne Funez RN Chart Check Powerplans Initiated/Discontinued as Appropriate : Yes All Active Orders Reviewed : Yes Lavonne Funez RN - 11/06/2019 17:05 EST Electronically signed by Nikita [facility] Conversion Property Condition Assessor Cerner at 01/26/2023 8:54 PM CDT documented in this encounter Plan of Treatment Not on file documented as of this encounter Visit Diagnoses Not on filedocumented in this encounter
--- OUTSIDE RECORDS SUMMARY | 2025-05-09 11:50 | XMS_ITS | Encounter Summary ---
Author Organization [employer] ([place], [place], [place], [place]) Address [address] [place] [address] Care Team Providers Care Forge Shop Machine Repairer Name Role Phone Unavailable Primary Care Provider Unavailabl e Encounter Details Date Type Department Care Team (Late st Contact Info) Description 06/02/2021 Transcribed Document [facility] [place] Family Medicine [facility] [place] [address] ProviderPrasanth MD [address] [place] [address] Social History Tobacco Use Types [...] information. No nutrition dx at this time. log data technician to rescreen in 7-10 days. Nanette Moreno Diet Technician - 06/03/2021 11:22 EDT Electronically signed by Nikita [facility] Conversion Lace Finisher Cerner at 01/26/2023 8:49 PM CDT documented in this encounter Plan of Treatment Not on file documented as of this encounter Visit Diagnoses Not on filedocumented in this encounter
--- OUTSIDE RECORDS SUMMARY | 2025-05-09 11:50 | XMS_ITS | Clinical Summary ---
Author Organization [employer] ([place], [place], [place], [place]) Address [address] [place] [address] Care Team Providers Care Cyber Intel Planner Name Role Phone Unavailable Primary Care [...]
--- OUTSIDE RECORDS SUMMARY | 2025-05-09 11:50 | XMS_ITS | Encounter Summary ---
Author Organization [employer] ([place], [place], [place], [place]) Address [address] [place] [address] Care Team Providers Care Hydrogeologist Name Role Phone Unavailable Primary Care Provider Unavailabl e Encounter Details Date Type Department Care Team (Late st Contact Info) Description 11/06/2019 Transcribed Document [facility] [place] [address] [place] [address] ProviderPrasanth MD [address] [place] [address] Social History Tobacco Use Types Packs/Day Years Used Date Smoking Tobacco: Never Assessed Sex and Gender Information Value Date Recorded Sex Assigned at Not on file Legal Sex Male 6:49 PM CDT Gender Identity Not on file Sexual Orientation Not on file documented as of this encounter Miscellaneous Notes * Cerner Conversion Note - Prasanth ProviderMD - 11/06/2019 2:29 PM COLLECTION DEVELOPMENT LIBRARIAN Readmission Questionnaire Entered On: 11/06/2019 14:31 EST Performed On: 11/06/2019 14:29 EST by BINH SIDDIQI RN-Marine Fire Fighter Readmission Questionnaire Information Obtained From : Patient [...] 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 BINH SIDDIQI, RN-Marine Fire Fighter - 11/06/2019 14:29 EST Electronically signed by Nikita [facility] Conversion Reed Cleaner Cerner at 01/26/2023 8:55 PM CDT documented in this encounter Plan of Treatment Not on file documented as of this encounter Visit Diagnoses Not on filedocumented in this encounter
--- OUTSIDE RECORDS SUMMARY | 2025-05-09 11:50 | XMS_ITS | Encounter Summary ---
Author Organization [employer] ([place], [place], [place], [place]) Address [address] [place] [address] Care Team Providers Care Character Actress Name Role Phone Unavailable Primary Care Provider Unavailabl e Encounter Details Date Type Department Care Team (Late st Contact Info) Description 10/29/2019 Transcribed Document [facility] [place] [address] [place] [address] ProviderPrasanth MD [address] [place] [address] Social History Tobacco Use Types Packs/Day Years Used Date Smoking Tobacco: Never Assessed Sex and Gender Information Value Date Recorded Sex Assigned at Not on file Legal Sex Male 6:49 PM CDT Gender Identity Not on file Sexual Orientation Not on file documented as of this encounter Miscellaneous Notes * Cerner Conversion Note - Prasanth ProviderMD - 10/29/2019 8:11 AM NETWORK ENGINEER [facility] Main OR IntraOp Summary Primary Physician: MARK HAIRSTON MD-CAT Finalized Date/Time: 10/31/19 12:09:24 Pt. Name: SHIRA GARZA HORACIO /Sex: 1935 Male Med Rec #: [id number] Physician: MARK HAIRSTON MD-CAT Financial #: [id number] Pt. Type: I Room/Bed: [facility]/1 Admit/Disch: 10/29/19 07:03:00 - 10/30/19 15:14:00 Institution: [facility] IntraOp Case Attendance Entry 1 Entry [...] GARRISON CHALKLEY, JUDSON E, Sherlock, Kristi, -CAR MD-ANS Angiography Tech Role Performed Surgeon/Proceduralist, Anesthesiologist Assistant Professor Sculpture Third Time In 10/29/19 07:16:00 10/29/19 07:16:00 [...] Cardiovascular RT Pref Card Builder Role Performed Assistant Professor Sculpture Scrub, Third Electronics Test Engineer, First Time In 10/29/19 07:16:00 10/29/19 [...] 11 Case Attendee JOAQUÍN ZEE, OTHER, ATTENDEE Shop Router Role Performed Shop Router Vendor Time In 10/29/19 07:16:00 10/29/19 07:16:00 Time Out 10/29/19 09:42:00 10/29/19 09:42:00 Procedure Aortic Valve Aortic Valve Replacement Transfemoral Replacement Transfemoral Other Attendee HOLAMARCELLO MANCIA Superficial Wound Closed By: Last Modified By: Solange Sutton KYOne Grimes, Jennifer, [facility]One Pref Card Builder Pref Card Builder 10/29/19 09:43:00 10/29/19 09:43:00 [facility] IntraOp Case Attendance Audit 10/29/19 09:43:00 Military Education Coordinator: MAY Modifier: MAY 1 <+> Time Out [...] Procedure Aortic Valve Replacement Transfemoral 10/29/19 08:06:54 Military Education Coordinator: MAY Modifier: MAY <+> 1 Procedure 2 [...] <*> Procedure Aortic Valve Replacement Transfemoral [facility] IntraOp Case Times Entry 1 Patient In Room Time 10/29/19 07:16:00 Out Room Time 10/29/19 09:42:00 Anesthesia Start Time 10/29/19 07:16:00 Stop Time 10/29/19 09:42:00 Surgery / Procedure Times Start Time 10/29/19 08:11:00 Stop Time 10/29/19 09:17:00 Last Modified By: Solange Sutton KYOne Pref Card Builder 10/29/19 09:42:57 [facility] IntraOp Case Times Audit 10/29/19 09:42:57 Military Education Coordinator: GRIMESJE Modifier: GRIMESJE <+> 1 Out Room Time <+> 1 Stop Time 10/29/19 09:23:10 Military Education Coordinator: GRIMESJE Modifier: GRIMESJE <+> 1 Stop Time 10/29/19 08:11:22 Military Education Coordinator: GRIMESJE Modifier: GRIMESJE <+> 1 Start Time [facility] IntraOp Communication Entry 1 Entry 2 [...] Solange Sutton [facility]One Pref Card Buildvipul 10/29/19 08:59:19 [facility] IntraOp Communication Audit 10/29/19 08:59:19 Military Education Coordinator: MAY Modifier: MAY <+> 3 Date and Time <+> 4 Date and Time [facility] IntraOp Departure from OR Entry 1 Integumentary Assessment Integumentary WDL Assessment WDL Transfer/Handoff Transfer to PACU Phase I Handoff Method Bedside/Face to face Post-op Transport Bed (including Via specialty) Patient Transport DOM DE LA TORRE, Accompanied by DILLAN, JOAQUÍN ZEE, Shop Router, Solange Sutton [facility]One Pref Card Aida Transfer/Handoff ICU BED Comments Last Modified By: Solange Sutton [facility]One Pref Card Buildvipul 10/29/19 08:05:30 [facility] IntraOp Dressing and Packing Entry 1 Type Dressing Location OPERATIVE SITE Wound Dressing Item Skin Closure Glue, Occlusive dressing Last Modified By: Solange Sutton [facility]One Pref Card Buildvipul 10/29/19 08:05:33 [facility] IntraOp Fire Risk Assessment Entry 1 [...] [facility]One Pref Card Buildvipul 10/29/19 08:05:40 [facility] IntraOp General Case Hand Finisher 1 Case Information OR OR 20 [facility] Case Level 2 Room Verified Yes Wound Class I - Clean Specialty SN Cardio Thoracic Anesthesia Type MAC ASA Class 4 Diagnosis Preop Diagnosis AORTIC VALVE DISEASE Postop Same As Preop Yes Postop Diagnosis AORTIC VALVE DISEASE Last Modified By: Solange Sutton [facility]One Pref Card Builder 10/29/19 08:05:54 [facility] IntraOp Implant Log Entry 1 Entry 2 Entry 3 Type Implant (Synthetic) Implant (Synthetic) Tissue Implant (Biologic) Implant Log Implant Type Other Other Tissue Implant Type Heart valve Implant CLOSURE SYS PERCLOSE DEVICE MYNX VP SOFTWARE SUPPORT 6F/ 7F KT NAVID 3 W/COMM DEL Identification PROGL [id number] [id number] Description Implant Quantity 3 1 1 Implant Site RIGHT GROIN LEFT GROIN AORTIC VALVE Implant Identification Model Number Implant [id number] Identification Serial Number Implant [id number] Identification Lot Number Implant Dixon Lab:Vasc Dev Access Closure Mancia Lifesci Identification Grab Jack Worker Name: Implant [id number] Identification Catalog Number Implant Size Implant Has an Yes Yes Yes Expiration Date Implant Expiration 07/09/21 09/08/21 01/08/21 Date Wasted Radioactive Material Time Implanted Tissue Implant Continue for Tissue Implant Documentation Tissue Identification Number Graft Prep Per Yes Grab Jack Worker Instructions: Tissue Preparation N/A Method: Reconstitution Solution: Reconstitution Solution Lot Number Reconstitution Solution Expiration Date: Thawing Solution Thawing Solution Lot Number Thawing Solution Expiration Date Preparation NACL AND HEPARIN/SALINE Materials, Other Preparation [id number] Materials, Other Lot Number Preparation 05/10/20 Materials, Other Expiration Date Tissue OTHER, ATTENDEE Prepared/Processed By Grab Jack Worker Yes Paperwork Completed Implant Type Comment Last Modified By: Solange Sutton [facility]One Grimes, Jennifer, KYOne Grimes, Jennifer, KYOne Pref Card Builder Pref Card Builder Pref Card Builder 10/29/19 08:21:05 10/29/19 08:21:05 10/29/19 13:19:53 [facility] IntraOp Implant Log Audit 10/29/19 13:19:53 Military Education Coordinator: MAY Modifier: MAY 3 <*> Implant Identification Description KT NAVID 3 W/COMM DEL SYS [id number] <*> Tissue Implant Type Tissue 10/29/19 08:34:38 Military Education Coordinator: MAY Modifier: MAY 3 <*> Implant Identification Description KT NAVID 3 W/COMM DEL SYS [id number] <+> Preparation Materials, Other Lot Number 3 <+> Preparation Materials, Other Expiration Date 10/29/19 08:30:15 Military Education Coordinator: MAY Modifier: MAY <+> 3 Implant Identification Description <+> 3 Implant Identification Serial Number <+> 3 Implant Identification Grab Jack Worker Name: <+> 3 Implant Expiration Date <+> 3 Implant Site <+> 3 Implant Quantity <+> 3 Implant Identification Catalog Number <+> 3 Tissue Implant Type <+> 3 Graft Prep Per Grab Jack Worker Instructions: <+> 3 Tissue Preparation Method: <+> 3 Preparation Materials, Other <+> 3 Tissue Prepared/Processed By <+> 3 Grab Jack Worker Paperwork Completed <+> 3 Implant Has an Expiration Date <+> 3 Type [facility] IntraOp Intraoperative Assessment Entry 1 Handoff [...] KYOne Pref Card Builder 10/29/19 08:06:01 [facility] IntraOp Intraoperative Equipment Entry 1 Equipment Intraop Monitoring Blood Pressure Arm, right upper Location Pulse Oximeter Hand, left Probe Site Antiembolic Devices Scopes Photo/Video Documentation Last Modified By: Solange Sutton [facility]One Pref Card Builder 10/29/19 08:06:05 [facility] IntraOp Medication Admin Entry 1 Entry 2 Entry 3 Medication/Irrigant lidocaine 1% 30ml vial KENNY VISIPAQUE 320MG 150 KENNY NACL 0.9PCT [facility] ERN - [id number] 200ML --[id number] 1000U .5L --[id number] Combo Med List Time Administered Route of [...] 10/29/19 08:06:19 10/29/19 08:06:19 10/29/19 08:06:19 [facility] IntraOp Patient Positioning Entry 1 Procedure [...] [facility]One Pref Card Builder 10/29/19 08:06:32 [facility] IntraOp Sign In Entry 1 Patient, [...] [facility]One Pref Card Builder 10/29/19 08:06:34 [facility] IntraOp Sign Out Entry 1 RN [...] [facility]One Pref Card Builder 10/29/19 09:43:07 [facility] IntraOp Sign Out Audit 10/29/19 09:43:07 Military Education Coordinator: MAY Modifier: MAY <+> 1 RN Sign Out Signature Date/Time [facility] IntraOp Skin Prep Entry 1 Procedure Aortic Valve Replacement Transfemoral Prescribed Yes Pre-Surgical Prep Completed Prep Area CHIN TO KNEES Intraop Prep Integumentary WDL Assessment WDL Prep Agents Chloraprep Prep by Solange Sutton [facility]One Pref Card Builder Hair Removal Last Modified By: Solange Sutton [facility]One Pref Card Builder 10/29/19 08:06:43 [facility] IntraOp Surgical Procedures Entry 1 Procedure Aortic Valve Replacement Transfemoral Additional TRANSFEMORAL AORTIC Procedure VALVE REPLACEMENT, PUMP Description STAND BY Primary Procedure Yes Primary Surgeon MARK HAIRSTON MD-CAT Start 10/29/19 08:11:00 Stop 10/29/19 09:17:00 Anesthesia Type General Specialty SN Cardio Thoracic Wound Class I - Clean Last Modified By: Solange Sutton [facility]One Pref Card Builder 10/29/19 09:43:10 [facility] IntraOp Surgical Procedures Audit 10/29/19 09:43:10 Military Education Coordinator: MAY Modifier: MAY <+> 1 Stop 10/29/19 09:02:34 Military Education Coordinator: MAY Modifier: MAY 1 <*> Procedure Aortic Valve Replacement Transfemoral 1 <+> Start 1 <*> Additional Procedure Description (AORTIC VALVULOPLASTY, VITOR, POSSIBLE TRANSCATHETER AORTIC VALVE REPLACEMENT, POSSIBLE OPEN AORTIC VALVE REPLACEMENT) [facility] IntraOp Temp Regulation Devices Entry 1 Temp Regulation Temperature Warm blankets Regulation Device Temperature Full body Regulation Site Temperature Solange Sutton [facility]One Regulation Device Pref Card Builder Applied by Last Modified By: Solange Sutton [facility]One Pref Card Builder 10/29/19 08:06:59 [facility] IntraOP Time Out Entry 1 Procedure [...] [facility]One Pref Card Builder 10/29/19 08:11:18 [facility] IntraOP Time Out Audit 10/29/19 08:11:18 Military Education Coordinator: MAY Modifier: MAY 1 <+> Beta Bety Administered 1 <+> Time Out Pause Time 1 <*> Procedure to be Performed Aortic Valve Replacement Transfemoral 1 <+> Time Out Comment [facility] IntraOp X-Ray and Images Entry 1 X-Ray/Imaging Type Fluoroscopy Fluoroscopy Type Fixed Site CHEST Senior Principal Software Engineer Name Sherdave, Brenna, Angiography Tech Protective Devices Yes Used [...] TIFFANIE Correct Billing Electronically signed by Nikita [facility] Conversion Post Exchange Manager Cerner at 01/26/2023 9:05 PM CDT documented in this encounter Plan of Treatment Not on file documented as of this encounter Visit Diagnoses Not on filedocumented in this encounter
--- OUTSIDE RECORDS SUMMARY | 2025-05-09 11:50 | XMS_ITS | Encounter Summary ---
Author Organization [employer] ([place], [place], [place], [place]) Address [address] [place] [address] Care Team Providers Care Service Center Supervisor Name Role Phone Unavailable Primary Care Provider Unavailabl e Encounter Details Date Type Department Care Team (Late st Contact Info) Description 10/29/2019 Transcribed Document [facility] [place] Medicine [address] [place] [address] ProviderPrasanth MD [address] [place] [address] Social History Tobacco Use Types Packs/Day Years Used Date Smoking Tobacco: Never Assessed Sex and Gender Information Value Date Recorded Sex Assigned at Not on file Legal Sex Male 6:49 PM CDT Gender Identity Not on file Sexual Orientation Not on file documented as of this encounter Miscellaneous Notes * Cerner Conversion Note - Historical ProviderMD - 10/29/2019 9:12 AM VENETIAN BLIND WASHER Education-(VTE) / (DVT) Entered On: 10/30/2019 4:52 EST Performed On: 10/29/2019 9:12 EST by Rimma Blackmon, RN Teaching/Learning Assessment Barriers To Learning : None evident Individuals Taught : Patient, Family member Learning Style Preferences Patient : None Rimma Blackmon, WILL - 10/30/2019 4:52 EST Electronically signed by Nikita [facility] Conversion Certified Medical Biller Cerner at 01/26/2023 9:07 PM CDT documented in this encounter Plan of Treatment Not on file documented as of this encounter Visit Diagnoses Not on filedocumented in this encounter
--- OUTSIDE RECORDS SUMMARY | 2025-05-09 11:51 | XMS_ITS | Encounter Summary ---
Author Organization [employer] ([place], [place], [place], [place]) Address [address] [place] [address] Care Team Providers Care Marketing Strategist Name Role Phone Unavailable Primary Care Provider Unavailabl e Encounter Details Date Type Department Care Team (Late st Contact Info) Description 11/04/2019 Transcribed Document [facility] [place] [facility] [place] [address] ProviderPrasanth MD [facility] [place] [address] Social History Tobacco Use Types Packs/Day Years Used Date Smoking Tobacco: Never Assessed Sex and Gender Information Value Date Recorded Sex Assigned at Not on file Legal Sex Male 6:49 PM CDT Gender Identity Not on file Sexual Orientation Not on file documented as of this encounter Miscellaneous Notes * Cerner Conversion Note - Prasanth ProviderMD - 11/04/2019 7:33 PM BELLPERSON ED Triage Entered On: 11/04/2019 19:42 EST Performed On: 11/04/2019 19:39 EST by RADHA COVINGTON Rn ED Triage Across the Room Chief Complaint [...] : 2 - Emergent Tracking Group : [facility] ED RADHA COVINGTON Rn - [...] 19:42:51 EST) Problems(Active) Aortic stenosis (SNOMED CT :887792019 ) Name of Problem: Aortic stenosis ; Recorder: RADHA TERRAZAS RN; Confirmation: Confirmed ; Classification: Patient Stated ; Code: [id number] ; Contributor System: [employer] ; Last Updated: 11/14/2018 7:27 EST ; Life Cycle Date: 11/14/2018 ; Life Cycle Status: Active ; Vocabulary: SNOMED CT At risk for sleep apnea (IMO :20331303 ) Name of Problem: At risk for sleep apnea ; Recorder: SYSTEM, SYSTEM; Confirmation: Confirmed ; Classification: Medical ; Code: 40967026 ; Last Updated: 11/14/2018 7:19 EST ; Life Cycle Date: 11/14/2018 ; Life Cycle Status: Active ; Vocabulary: IMO Atrial flutter (SNOMED CT :5192579 ) Name of Problem: Atrial flutter ; Recorder: RADHA TERRAZAS RN; Confirmation: Confirmed ; Classification: Patient Stated ; Code: 3753214 ; Contributor System: [employer] ; Last Updated: 11/14/2018 7:26 EST ; Life Cycle Date: 11/14/2018 ; Life Cycle Status: Active ; Vocabulary: SNOMED CT Benign neoplastic disease (SNOMED CT :69846145 ) Name of Problem: Benign neoplastic disease ; Recorder: AV KING RN; Confirmation: Confirmed ; Classification: Patient Stated ; Code: 79296242 ; Contributor System: Power[employer] ; Last Updated: 09/11/2019 7:15 EST ; Life Cycle Date: 09/11/2019 ; Life Cycle Status: Active ; Vocabulary: SNOMED CT CAD (coronary artery disease) (SNOMED CT :33364667 ) Name of Problem: CAD (coronary artery disease) ; Recorder: RADHA TERRAZAS RN; Confirmation: Confirmed ; Classification: Patient Stated ; Code: 15452777 ; Contributor System: PowerChart ; Last Updated: 11/14/2018 7:27 EST ; Life Cycle Date: 11/14/2018 ; Life Cycle Status: Active ; Vocabulary: SNOMED CT Hyperlipidemia (SNOMED CT :01232185 ) Name of Problem: Hyperlipidemia ; Recorder: AV KING RN; Confirmation: Confirmed ; Classification: Patient Stated ; Code: 37188109 ; Contributor System: PowerChart ; Last Updated: 09/11/2019 6:25 EST ; Life Cycle Date: 09/11/2019 ; Life Cycle Status: Active ; Vocabulary: SNOMED CT Hypertension (SNOMED CT :38984401 ) Name of Problem: Hypertension ; Recorder: HILDA ANTHONY RN; Confirmation: Confirmed ; Classification: Medical ; Code: 29329814 ; Contributor System: PowerChart ; Last Updated: 10/26/2019 9:33 EST ; Life Cycle Date: 10/26/2019 ; Life Cycle Status: Active ; Vocabulary: SNOMED CT Renal calculus (SNOMED CT :273157229 ) Name of Problem: Renal calculus ; Recorder: RADHA TERRAZAS RN; Confirmation: Confirmed ; Classification: Patient Stated ; Code: 060089892 ; Contributor System: PowerChart ; Last Updated: 11/14/2018 7:30 EST ; Life Cycle Date: 11/14/2018 ; Life Cycle Status: Active ; Vocabulary: SNOMED CT Right bundle branch block (SNOMED CT :38524158 ) Name of Problem: Right bundle branch block ; Recorder: AV KING RN; Confirmation: Confirmed ; Classification: Patient Stated ; Code: 46999511 ; Contributor System: appssavvyChart ; Last Updated: 09/11/2019 7:12 EST ; Life Cycle Date: 09/11/2019 ; Life Cycle Status: Active ; Vocabulary: SNOMED CT Shortness of breath (SNOMED CT :202642028 ) Name of Problem: Shortness of breath ; Recorder: HILDA ANTHONY RN; Confirmation: Confirmed ; Classification: Medical ; Code: 613689896 ; Contributor System: PowerChart ; Last Updated: 10/26/2019 9:34 EST ; Life Cycle Date: 10/26/2019 ; Life Cycle Status: Active ; Vocabulary: SNOMED CT Wears glasses (SNOMED CT :408057137 ) Name of Problem: Wears glasses ; Recorder: HILDA ANTHONY RN; Confirmation: Confirmed ; Classification: Medical ; Code: 646644948 ; Contributor System: [employer] ; Last Updated: 10/26/2019 9:32 EST ; Life Cycle Date: 10/26/2019 ; Life Cycle Status: Active ; Vocabulary: SNOMED CT Diagnoses(Active) Dizziness Date: 11/04/2019 ; Diagnosis Type: Reason For Visit ; Confirmation: Complaint of ; Clinical Dx: Dizziness ; Classification: Medical ; Clinical Service: Emergency medicine ; Code: PNED ; Probability: 0 ; Diagnosis Code: [id number] ED Height and Weight Height Source : Stated Height Entry Format : [place] Height, Feet : 5 ft(Converted to: 152 cm, 60 Inch) Height, Inches : 9 Inch(Converted to: 0 ft 9 Inch, 22.86 cm) Clinical Height : 175.26 cm Weight Source, ED : Critical estimated dosing weight Weight Entry Format : [place] Weight, Pounds : 195 lb Clinical Dosing Weight : 88.64 kg Body Surface Area (BSA) : 2.05 m2 Body Mass Index : 28.9 kg/m2 (HI) [place] Body Weight (IBW) : 69.73 kg RADHA [...]
--- OUTSIDE RECORDS SUMMARY | 2025-05-09 11:51 | XMS_ITS | Encounter Summary ---
Author Organization [employer] ([place], [place], [place], [place]) Address [address] [place] [address] Care Team Providers Care Signal Supervisor Name Role Phone Unavailable Primary Care Provider Unavailabl e Encounter Details Date Type Department Care Team (Late st Contact Info) Description 11/04/2019 Transcribed Document [facility] [place] Family Medicine [address] [place] [address] ProviderPrasanth MD [address] [place] [address] Social History Tobacco Use Types Packs/Day Years Used Date Smoking Tobacco: Never Assessed Sex and Gender Information Value Date Recorded Sex Assigned at Not on file Legal Sex Male 6:49 PM CDT Gender Identity Not on file Sexual Orientation Not on file documented as of this encounter Miscellaneous Notes * Cerner Conversion Note - Prasanth ProviderMD - 11/04/2019 10:58 PM METAL OR WOOD BLOCKER ED Event Note Entered On: 11/04/2019 22:59 [...]
--- OUTSIDE RECORDS SUMMARY | 2025-05-09 11:51 | XMS_ITS | Encounter Summary ---
Author Organization [employer] ([place], [place], [place], [place]) Address [address] [place] [address] Care Team Providers Care Coal Feeder Operator Name Role Phone Unavailable Primary Care Provider Unavailabl e Encounter Details Date Type Department Care Team (Late st Contact Info) Description 08/06/2020 Transcribed Document [facility] [place] Family Medicine [address] [place] [address] ProviderPrasanth MD [address] [place] [address] Social History Tobacco Use Types [...] Sanchez MD - 08/06/2020 1:08 PM CDT [facility] [place] [address] SHIRA GARZA :1935 Visit Time:08/06/2020 Your [...] Comments f/y tavr with HALT Where: [address] [facility] [address] [place] [address]- Business (1) Follow Up with LACIE ALVA When 08/21/2020 11:15 AM EST Comments 08/21 @ 11:15am Where: [address] [place] [address]- Business (1) Follow Up with KARON MCWILLIAMS When Within 1 week Comments f/u aov stenosis and troponin leak/chestpain Call for follow up appointment Where: [address] [facility] [place] [address] Business (1) Medications What How Much When Instructions Next Dose apixaban (Eliquis 5 mg oral tablet) 1 Tablet(s) Oral Interval Every 12 Hours START AM Pickup at [facility] isosorbide mononitrate (isosorbide mononitrate 20 mg oral tablet) 1 Tablet(s) Oral Two Times A Day Pickup at [facility] aspirin 81 Milligram(s) Every Day atorvastatin (atorvastatin 20 mg oral tablet) 1 Tablet(s) Oral Tuesday hydrochlorothiazide-lisinopril (hydroCHLOROthiazide-lisinopril 12.5 mg-20 mg oral tablet) 1 Tablet(s) Oral Every Day multivitamin 1 Tablet(s) Oral Every Day nitroglycerin (Nitrostat 0.4 mg sublingual tablet) 1 Tablet(s) SubLINgual Every 5 minutes as needed for as needed for chest pain Pharmacy Information [facility]: [address] [address] [phone] Take your medications faithfully. Do NOT skip [...] The two forms of aspirin are: ? Fkh-tnauqma-vdwpjn.This type of aspirin does not have a coating and is absorbed quickly. This type of aspirin also comes in a chewable form. ? Enteric-coated. This type of aspirin has a coating that releases the medicine very slowly. Enteric-coated aspirin might cause less stomach upset than prr-akmezgh-wldgqb aspirin. This type of aspirin should not [...] 09/08/2009 Document Revised: 07/27/2018 Document Reviewed: 07/27/2018 Elsevier Patient Education ?? 2020 [employer] Acute Coronary Syndrome Acute coronary syndrome (ACS) [...] a heart-healthy eating plan. Medicines ??? Take wlui-nzk-bhvupns and prescription medicines only as told by [...] Reviewed: 10/08/2019 Elsevier Patient Education ?? 2020 [employer] Mitral Valve Replacement Mitral valve replacement [...] including vitamins, herbs, eye drops, creams, and gymd-ldq-atrdkua medicines. ??? Any problems you or family [...] tells you to take them. ? Taking kaul-ctz-pfwahrg medicines, vitamins, herbs, and supplements. Staying hydrated [...] Reviewed: 06/19/2019 Elsevier Patient Education ?? 2020 [employer] Venous Thromboembolism Prevention Venous thromboembolism (VTE) [...] for Disease Control and Prevention: www.cdc.gov ??? [place] Heart Association: www.heart.org Get help right away [...] 01/15/2020 Document Reviewed: 12/04/2019 Elsevier Patient Education ?? 2020 [employer] Emergency Awareness and Preventative Care STROKE [...] Assistance with quitting is available by contacting 6-557-KBLLNOW. This is a free resource providing counseling, [...] range between ( 0.0 and 7.0 ) Dickey #: 0.56 K/uL -- Normal range between ( 0.16 and 1.00 ) Eos #: 0.05 x10(3)/uL -- Normal range between ( 0.00 and 0.80 ) Dickey %: 10.1 % -- Normal range between [...] /LPF Urine Bilirubin Dipstick: Negative Urine Specific [place]: 1.023 -- Normal range between ( 1.005 [...] was given the opportunity to ask questions. Patient/Formal Waiter/Waitress Name: Patient/Formal Waiter/Waitress Signature: Relationship to Patient: Clinician/Hospital Formal Waiter/Waitress Signature: Date: Electronically signed by Nikita, [facility] Conversion Special Education Science Teacher Cerner at 01/26/2023 8:59 PM CDT documented in this encounter Plan of Treatment Not on file documented as of this encounter Visit Diagnoses Not on filedocumented in this encounter
--- OUTSIDE RECORDS SUMMARY | 2025-05-09 11:51 | XMS_ITS | Encounter Summary ---
Author Organization [employer] ([place], [place], [place], [place]) Address [address] [place] [address] Care Team Providers Care Consulting Intern Name Role Phone Unavailable Primary Care Provider Unavailabl e Encounter Details Date Type Department Care Team (Late st Contact Info) Description 09/11/2019 Transcribed Document [facility] [place] [facility] [address] ProviderPrasanth [place] [address] Social History Tobacco Use Types Packs/Day Years Used Date Smoking Tobacco: Never Assessed Sex and Gender Information Value Date Recorded Sex Assigned at Not on file Legal Sex Male 6:49 PM CDT Gender Identity Not on file Sexual Orientation Not on file documented as of this encounter Miscellaneous Notes * Cerner Conversion Note - Prasanth Sanchez MD - 09/11/2019 8:57 AM CELL LINER DATE OF SERVICE: 09/11/2019 PROCEDURE: Left heart [...] stenosis with severe ventricular hypertrophy. PROCEDURE: RFA, 5-Hebrew sheath, 5-Hebrew Denny multipack, Mynx assisted manual compression hemostasis. No adverse events. FINDINGS: Aortic pressure was 130/70. The valve was not crossed. The pressure contour of the aorta demonstrated significant delayed upstroke consistent with severe aortic stenosis. ANGIOGRAPHY: Ejection fraction normal by echocardiogram. The ascending aortography demonstrated dilation of the ascending aorta with tortuosity of the subclavian arteries. ALEKNAGIK CIRCULATION: Right coronary artery known to be [...] the cardiac surgeon, Dr. Kyle for AVR. /[id number] MD JOSE ANTONIO Moore/AQ / JOSE ANTONIO / MODL /[id number] documented in this encounter Plan of Treatment Not on file documented as of this encounter Visit Diagnoses Not on filedocumented in this encounter
--- OUTSIDE RECORDS SUMMARY | 2025-05-09 11:51 | XMS_ITS | Encounter Summary ---
Author Organization [employer] ([place], [place], [place], [place]) Address [address] [place] [address] Care Team Providers Care Locomotive Crane Operator Name Role Phone Unavailable Primary Care Provider Unavailabl e Encounter Details Date Type Department Care Team (Late st Contact Info) Description 11/14/2018 Transcribed Document [facility] [place] Family Medicine [facility] [place] [address] ProviderPrasanth MD [facility] [place] [address] Social History Tobacco Use Types Packs/Day Years Used Date Smoking Tobacco: Never Assessed Sex and Gender Information Value Date Recorded Sex Assigned at Not on file Legal Sex Male 6:49 PM CDT Gender Identity Not on file Sexual Orientation Not on file documented as of this encounter Miscellaneous Notes * Cerner Conversion Note - Prasanth ProviderMD - 11/14/2018 7:10 AM MOTORCYCLE MECHANIC Pre Procedure Adult Entered On: 11/14/2018 7:19 EST Performed On: 11/14/2018 7:10 EST by RADHA TERRAZAS RN Height and Weight, Clinical Dosing Height Source : Stated Height Entry Format : [place] Height, Feet : 0 ft(Converted to: 0 cm, 0 Inch) Height, Inches : 69 Inch(Converted to: 5 ft 9 Inch, 175.26 cm) Clinical Height : 175.26 cm Weight Source : Standing scale Weight Entry Format : [place] Clinical Dosing Weight : 88.64 kg Weight, Pounds : 195 lb Body Surface Area (BSA) : 2.05 m2 Body Mass Index : 28.9 kg/m2 (HI) [place] Body Weight : 70 kg RADHA TERRAZAS [...] #2 Relationship : - Primary Language : Cypriot Communication Barrier : None RADHA TERRAZAS RN [...] Scale Risk Level : 0-24 Low Risk Ottertail Fall Interventions : Wheels locked RADHA TERRAZAS [...]
--- OUTSIDE RECORDS SUMMARY | 2025-05-09 11:51 | XMS_ITS | Encounter Summary ---
Author Organization [employer] ([place], [place], [place], [place]) Address [address] [place] [address] Care Team Providers Care Behavioral Science Chair Name Role Phone Unavailable Primary Care Provider Unavailabl e Encounter Details Date Type Department Care Team (Late st Contact Info) Description 06/04/[address] [facility] [place] Family Medicine [address] [place] [address] ProviderPrasanth MD [address] [place] [address] Social History Tobacco Use Types [...] Vivien Rojas RN - 06/04/2021 6:59 EDT documented in this encounter Plan of Treatment Not on file documented as of this encounter Visit Diagnoses Not on filedocumented in this encounter
--- OUTSIDE RECORDS SUMMARY | 2025-05-09 11:51 | XMS_ITS | Encounter Summary ---
Author Organization [employer] ([place], [place], [place], [place]) Address [address] [place] [address] Care Team Providers Care Gaming Floor Supervisor Name Role Phone Unavailable Primary Care Provider Unavailabl e Encounter Details Date Type Department Care Team (Late st Contact Info) Description 08/05/2020 Transcribed Document [facility] [place] Family Medicine [address] [place] [address] ProviderPrasanth MD [address] [place] [address] Social History Tobacco Use Types Packs/Day Years Used Date Smoking Tobacco: Never Assessed Sex and Gender Information Value Date Recorded Sex Assigned at Not on file Legal Sex Male 6:49 PM CDT Gender Identity Not on file Sexual Orientation Not on file documented as of this encounter Miscellaneous Notes * Cerner Conversion Note - Prasanth ProviderMD - 08/05/2020 2:00 AM CDT Superintendent Seed Mill Details Entered On: 08/05/2020 1:07 EDT Performed On: 08/05/2020 2:00 EDT by Tish Calvillo Rn Order Details Order Detail : N/A Tish Calvillo Rn - 08/05/2020 1:07 EDT documented in this encounter Plan of Treatment Not on file documented as of this encounter Visit Diagnoses Not on filedocumented in this encounter
--- OUTSIDE RECORDS SUMMARY | 2025-05-09 11:51 | XMS_ITS | Encounter Summary ---
Author Organization [employer] ([place], [place], [place], [place]) Address [address] [place] [address] Care Team Providers Care Mortgage Loan Processing Clerk Name Role Phone Unavailable Primary Care Provider Unavailabl e Encounter Details Date Type Department Care Team (Late st Contact Info) Description 11/14/2018 Transcribed Document [facility] [place] Family Medicine [facility] [place] [address] ProviderPrasanth MD [facility] [place] [address] Social History Tobacco Use Types Packs/Day Years Used Date Smoking Tobacco: Never Assessed Sex and Gender Information Value Date Recorded Sex Assigned at Not on file Legal Sex Male 6:49 PM CDT Gender Identity Not on file Sexual Orientation Not on file documented as of this encounter Miscellaneous Notes * Cerner Conversion Note - Prasanth Sanchez MD - 11/14/2018 8:31 AM ACCOUNTING MANAGER CPA DATE OF STUDY: 11/14/2018 ELECTROPHYSIOLOGY RADIOFREQUENCY ABLATION REPORT PREOPERATIVE DIAGNOSIS: Symptomatic atrial flutter. PROCEDURE PERFORMED: Electrophysiology evaluation and radiofrequency ablation. DESCRIPTION OF PROCEDURE: The patient was brought to the EP laboratory in atrial flutter. After the aseptic draping of the femoral regions, the right femoral triangle was infiltrated with 1% lidocaine locally. A 6, 7, and 8-Maltese Daig septal sheaths were introduced into the right femoral vein. A 7-Maltese Duo-Decapolar catheter was advanced along the lateral right atrial wall and into the coronary sinus. A 6-Maltese Quadripolar catheter was placed at the atrial septum. This catheter was later used for pacing. Electrogram analysis demonstrated a counter-clockwise atrial flutter at a cycle length of 200 msec. Next, using the Carto three-dimensional mapping system in conjunction with a BiosAltia Dubois F Curve irrigated catheter, radiofrequency energy at 40 zheng was delivered across the tricuspid valve isthmus with dissolution of local atrial electrograms and ultimate mandaen of normal sinus rhythm. Bidirectional block across [...] 2. Successful tricuspid valve isthmus ablation with mandaen of normal sinus rhythm and development of bidirectional isthmus block. RECOMMENDATIONS: Routine followup. Dionicio Soliman M.D. Dict: 11/14/2018 08:31:48 Trans: 11/14/2018 10:53:06 CC1: Dionicio Soliman M.D. documented in this encounter Plan of Treatment Not on file documented as of this encounter Visit Diagnoses Not on filedocumented in this encounter
--- OUTSIDE RECORDS SUMMARY | 2025-05-09 11:51 | XMS_ITS | Encounter Summary ---
Author Organization [employer] ([place], [place], [place], [place]) Address [address] [place] [address] Care Team Providers Care Gas Operation Manager Name Role Phone Unavailable Primary Care Provider Unavailabl e Encounter Details Date Type Department Care Team (Late st Contact Info) Description 11/04/2019 Transcribed Document [facility] Neurology - [address] [facility] [address] [place] [address] Lesly Chiang Jr., MD [facility] [place] [address] Social History Tobacco Use Types [...]
--- OUTSIDE RECORDS SUMMARY | 2025-05-09 11:51 | XMS_ITS | Encounter Summary ---
Author Organization [employer] ([place], [place], [place], [place]) Address [address] [place] [address] Care Team Providers Care Green Belt Name Role Phone Unavailable Primary Care Provider Unavailabl e Encounter Details Date Type Department Care Team (Late st Contact Info) Description 08/06/2020 Transcribed Document [facility] [place] [address] [place] [address] ProviderPrasanth MD [address] [place] [address] Social History Tobacco Use Types [...] Insurance 1 Health Plan: MEDICARE Policy Number: [id number] Authorization Number: Insurance Primary Name : MEDICARE Policy Number: [id number] Historical Authorization Comments-Primary : No Authorization Comments Found DIVINA HUGHES Rn-Utilization Review - 08/06/2020 9:30 EDT documented in this encounter Plan of Treatment Not on file documented as of this encounter Visit Diagnoses Not on filedocumented in this encounter
--- OUTSIDE RECORDS SUMMARY | 2025-05-09 11:51 | XMS_ITS | Encounter Summary ---
Author Organization [employer] ([place], [place], [place], [place]) Address [address] [place] [address] Care Team Providers Care Pellet Post Inspector Name Role Phone Unavailable Primary Care Provider Unavailabl e Encounter Details Date Type Department Care Team (Late st Contact Info) Description 09/26/2019 Transcribed Document [facility] [place] [facility] [place] [address] ProviderPrasanth MD [facility] [place] [address] Social History Tobacco Use Types Packs/Day Years Used Date Smoking Tobacco: Never Assessed Sex and Gender Information Value Date Recorded Sex Assigned at Not on file Legal Sex Male 6:49 PM CDT Gender Identity Not on file Sexual Orientation Not on file documented as of this encounter Miscellaneous Notes * Cerner Conversion Note - Prasanth ProviderMD - 09/26/2019 11:20 AM TAILERCPA Initial Discharge Planning Entered On: 09/26/2019 11:23 EST Performed On: 09/26/2019 11:20 EST by JAIMEE CARTAGENA Merchandise Buyer-Senior Net Developer Architect Initial Assessment I Previously Documented Living Environment [...] Is Guardianship Needed : No JAIMEE CARTAGENA Merchandise Buyer-Senior Net Developer Architect - 09/26/2019 11:20 EST Initial Assessment II Sensory and Motor Deficits : None Current Home Treatments and Equipment : None JAIMEE CARTAGENA Merchandise Buyer-Senior Net Developer Architect - 09/26/2019 11:20 EST Discharge Needs I Anticipated Discharge To, CM : Home independently Current Home Treatment/Equipment : Current Home Treatment/Equipment No qualifying data available. Post Acute/Home Treatments : None Documentation Status Complete : Yes JAIMEE CARTAGENA Merchandise Buyer-Senior Net Developer Architect - 09/26/2019 11:20 EST Discharge Needs II Professional Skilled Services : Professional Skilled Services No qualifying data available. Needs Assistance with Transportation : No Discharge Options Discussed with Patient : Discharge transportation, Home Health JAIMEE CARTAGENA Merchandise Buyer-Senior Net Developer Architect - 09/26/2019 11:20 EST Narrative Note Narrative [...] CM will continue to follow. JAIMEE CARTAGENA Merchandise Buyer-Senior Net Developer Architect - 09/26/2019 11:20 EST documented in this encounter Plan of Treatment Not on file documented as of this encounter Visit Diagnoses Not on filedocumented in this encounter
--- OUTSIDE RECORDS SUMMARY | 2025-05-09 11:51 | XMS_ITS | Encounter Summary ---
Author Organization [employer] ([place], [place], [place], [place]) Address [address] [place] [address] Care Team Providers Care Operating System Designer Name Role Phone Unavailable Primary Care Provider Unavailabl e Encounter Details Date Type Department Care Team (Late st Contact Info) Description 11/04/2019 Transcribed Document [facility] [place] [address] [place] [address] ProviderPrasanth MD [address] [place] [address] Social History Tobacco Use Types Packs/Day Years Used Date Smoking Tobacco: Never Assessed Sex and Gender Information Value Date Recorded Sex Assigned at Not on file Legal Sex Male 6:49 PM CDT Gender Identity Not on file Sexual Orientation Not on file documented as of this encounter Miscellaneous Notes * Cerner Conversion Note - Historical ProviderMD - 11/04/2019 7:33 PM SUPERVISOR FILTER ASSEMBLY [place] Suicide Severity Rating Scale (C-SSRS) Entered On: 11/04/2019 21:44 EST Performed On: 11/04/2019 21:37 EST by MARIA TERESA KAT RN [place] Suicide Severity Rating Scale (C-SSRS) CSSRS Past Month Wish to be : No CSSRS Past Month Suicidal Thoughts : No CSSRS Lifetime Suicide Behavior : No Suicide Severity Rating Score : 0 Suicide Severity Rating : No Additional Care Required at this time MARIA TERESA KAT RN - 11/04/2019 21:37 EST documented in this encounter Plan of Treatment Not on file documented as of this encounter Visit Diagnoses Not on filedocumented in this encounter
--- OUTSIDE RECORDS SUMMARY | 2025-05-09 11:51 | XMS_ITS | Encounter Summary ---
Author Organization [employer] ([place], [place], [place], [place]) Address [address] [place] [address] Care Team Providers Care Data Center Technician Name Role Phone Unavailable Primary Care Provider Unavailabl e Encounter Details Date Type Department Care Team (Late st Contact Info) Description 08/06/2020 Transcribed Document [facility] [place] [address] [place] [address] ProviderPrasanth MD [address] [place] [address] Social History Tobacco Use Types Packs/Day Years Used Date Smoking Tobacco: Never Assessed Sex and Gender Information Value Date Recorded Sex Assigned at Not on file Legal Sex Male 6:49 PM CDT Gender Identity Not on file Sexual Orientation Not on file documented as of this encounter Miscellaneous Notes * Cerner Conversion Note - Prasanth Sanchez MD - 08/06/2020 9:04 AM CDT Final Discharge Planning Entered On: 08/06/2020 9:07 EDT Performed On: 08/06/2020 9:04 EDT by ALVINA GIVENS RN-Typecasting Machine Operator Final Discharge Planning Discharge Arrangements : Patient [...] : Yes Discharge To Care Management : Home/Residential/Care Home or Self Care -01 ALVINA GIVENS, RN-Typecasting Machine Operator - 08/06/2020 9:04 EDT Final Narrative Note Final Narrative Note : pt will dc home. was given eliquis card/coupon for free 30 day trial. no further cm needs. ALVINA GIVENS RN-Typecasting Machine Operator - 08/06/2020 9:04 EDT Electronically signed by Carla Shelton Conversion Certified Hyperbaric Technician Cerner at 01/26/2023 8:57 PM CDT documented in this encounter Plan of Treatment Not on file documented as of this encounter Visit Diagnoses Not on filedocumented in this encounter
--- OUTSIDE RECORDS SUMMARY | 2025-05-09 11:51 | XMS_ITS | Encounter Summary ---
Author Organization [employer] ([place], [place], [place], [place]) Address [address] [place] [address] Care Team Providers Care Senior Svp Name Role Phone Unavailable Primary Care Provider Unavailabl e Encounter Details Date Type Department Care Team (Late st Contact Info) Description 06/03/2021 Transcribed Document [facility] [place] Family Medicine [facility] [place] [address] ProviderPrasanth MD [facility] [place] [address] Social History Tobacco Use Types Packs/Day Years Used Date Smoking Tobacco: Never Assessed Sex and Gender Information Value Date Recorded Sex Assigned at Not on file Legal Sex Male 6:49 PM CDT Gender Identity Not on file Sexual Orientation Not on file documented as of this encounter Miscellaneous Notes * Cerner Conversion Note - Prasanth Sanchez MD - 06/03/2021 2:06 PM CDT Patient: SHIRA GARZA HORACIO Age: 85 years Sex: Male : 1935 Associated Diagnoses: None Author: BINH NORIEGA NP [facility] PROGRESS NOTE: DIAGNOSIS: 1. Elevated troponin [...] to historical echo. - No plans for [facility] at this time, given recent TIA symptoms [...] made with Dr. Domingo for Friday 06/08. documented in this encounter Plan of Treatment Not on file documented as of this encounter Visit Diagnoses Not on filedocumented in this encounter
--- OUTSIDE RECORDS SUMMARY | 2025-05-09 11:51 | XMS_ITS | Encounter Summary ---
Author Organization [employer] ([place], [place], [place], [place]) Address [address] [place] [address] Care Team Providers Care Filing Machine Operator Name Role Phone Unavailable Primary Care Provider Unavailabl e Encounter Details Date Type Department Care Team (Late st Contact Info) Description 06/03/2021 Transcribed Document [facility] [place] Family Medicine [address] [place] [address] ProviderPrasanth MD [address] [place] [address] Social History Tobacco Use Types [...] On: 06/03/2021 9:00 EDT by Chang Medrano, Bottom Finisher-Student Nurse NIH Stroke Scale *Q NIH Assessment [...] NIH Scale Score : 0 Chang Medrano, Bottom Finisher-Student Nurse - 06/03/2021 7:31 EDT documented in this encounter Plan of Treatment Not on file documented as of this encounter Visit Diagnoses Not on filedocumented in this encounter
--- OUTSIDE RECORDS SUMMARY | 2025-05-09 11:51 | XMS_ITS | Encounter Summary ---
Author Organization [employer] ([place], [place], [place], [place]) Address [address] [place] [address] Care Team Providers Care Career Technical Supervisor Name Role Phone Unavailable Primary Care Provider Unavailabl e Encounter Details Date Type Department Care Team (Late st Contact Info) Description 09/11/2019 Transcribed Document [facility] [place] [address] [place] [address] ProviderPrasanth MD [address] [place] [address] Social History Tobacco Use Types Packs/Day Years Used Date Smoking Tobacco: Never Assessed Sex and Gender Information Value Date Recorded Sex Assigned at Not on file Legal Sex Male 6:49 PM CDT Gender Identity Not on file Sexual Orientation Not on file documented as of this encounter Miscellaneous Notes * [employer] Conversion Note - Historical ProviderMD - 09/11/2019 11:21 AM NAVIGATION TEACHER Event Note Entered On: 09/11/2019 11:22 EST Performed On: 09/11/2019 11:21 EST by AV KING RN Event Note Event Date/Time : 09/11/2019 11:05 EST Description of Event : Patient has completed appropriate bed rest of 2 hours, he has walked and ready for discharge. Awaiting Dr Kyle to [facility] on Patient AV KING RN - 09/11/2019 11:21 EST documented in this encounter Plan of Treatment Not on file documented as of this encounter Visit Diagnoses Not on filedocumented in this encounter
--- OUTSIDE RECORDS SUMMARY | 2025-05-09 11:51 | XMS_ITS | Encounter Summary ---
Author Organization [employer] ([place], [place], [place], [place]) Address [address] [place] [address] Care Team Providers Care Manager Supplier Name Role Phone Unavailable Primary Care Provider Unavailabl e Encounter Details Date Type Department Care Team (Late st Contact Info) Description 11/04/2019 Transcribed Document [facility] [place] Family Medicine [address] [place] [address] ProviderPrasanth MD [address] [place] [address] Social History Tobacco Use Types Packs/Day Years Used Date Smoking Tobacco: Never Assessed Sex and Gender Information Value Date Recorded Sex Assigned at Not on file Legal Sex Male 6:49 PM CDT Gender Identity Not on file Sexual Orientation Not on file documented as of this encounter Miscellaneous Notes * Cerner Conversion Note - Historical ProviderMD - 11/04/2019 9:17 PM MULTI MISSION HELICOPTER AIRCREWMAN Consult Phone Call Documentation Entered On: 11/05/2019 8:19 EST Performed On: 11/04/2019 21:17 EST by Iris Banerjee [facility] Unit Coord Phone Call for Consults Consult Phone Call/Page Attempt : First call Consult Reason : traumatic subdural Physician Requesting Consult : RASHAUN FERRARI MD-INT Physician Requested for Consult : LESLY CHIANG MD-SNU Provider Service Notified Name : Neurosurgery Consult, Additional Information : called to office Iris Banerjee, [facility] Unit Coord - 11/05/2019 8:18 EST documented in this encounter Plan of Treatment Not on file documented as of this encounter Visit Diagnoses Not on filedocumented in this encounter
--- OUTSIDE RECORDS SUMMARY | 2025-05-09 11:51 | XMS_ITS | Encounter Summary ---
Author Organization [employer] ([place], [place], [place], [place]) Address [address] [place] [address] Care Team Providers Care Day Care Worker Name Role Phone Unavailable Primary Care Provider Unavailabl e Encounter Details Date Type Department Care Team (Late st Contact Info) Description 10/30/2019 Transcribed Document [facility] [place] Family Medicine [address] [place] [address] ProviderPrasanth MD [address] [place] [address] Social History Tobacco Use Types Packs/Day Years Used Date Smoking Tobacco: Never Assessed Sex and Gender Information Value Date Recorded Sex Assigned at Not on file Legal Sex Male 6:49 PM CDT Gender Identity Not on file Sexual Orientation Not on file documented as of this encounter Miscellaneous Notes * Cerner Conversion Note - Prasanth ProviderMD - 10/30/2019 11:30 AM MINE ENGINEER Initial Discharge Planning Entered On: 10/30/2019 11:32 EST Performed On: 10/30/2019 11:30 EST by JAIMEE CARTAGENA Ignition Specialist-Restorer Paper And Prints Initial Assessment I Previously Documented Living Environment : No qualifying data available. JAIMEE CARTAGENA Ignition Specialist-Restorer Paper And Prints - 10/30/2019 11:32 EST Living Situation : [...] Yes Legal Guardian : No JAIMEE CARTAGENA Ignition Specialist-Restorer [employer] Prints - 10/30/2019 11:30 EST Initial Assessment II Sensory and Motor Deficits : None Current Home Treatments and Equipment : None JAIMEE CARTAGENA Ignition Specialist-Restorer [employer] And Prints - 10/30/2019 11:30 EST Discharge Needs I Anticipated Discharge To, CM : Home independently Current Home Treatment/Equipment : Current Home Treatment/Equipment No qualifying data available. Post Acute/Home Treatments : None Documentation Status Complete : Yes JAIMEE CARTAGENA Ignition Specialist-Restorer Paper And Prints - 10/30/2019 11:30 EST Discharge Needs II Professional Skilled Services : Professional Skilled Services No qualifying data available. Needs Assistance with Transportation : No Discharge Options Discussed with Patient : Discharge transportation, DME, Home Health JAIMEE CARTAGENA Ignition Specialist-Restorer Paper And Prints - 10/30/2019 11:30 EST Narrative Note Narrative Note : Patient is a low readmission risk of 31. Patient denied ever having HH or SNF services. Patient reported that he is independent with ADLs. He reported that he does not anticipate having any discharge needs. CM will continue to follow for discharge needs. JAIMEE CARTAGENA Ignition Specialist-Restorer [employer] Prints - 10/30/2019 11:32 EST documented in this encounter Plan of Treatment Not on file documented as of this encounter Visit Diagnoses Not on filedocumented in this encounter
--- OUTSIDE RECORDS SUMMARY | 2025-05-09 11:51 | XMS_ITS | Encounter Summary ---
Author Organization [employer] ([place], [place], [place], [place]) Address [address] [place] [address] Care Team Providers Care Director Of Marketing And Promotions Name Role Phone Unavailable Primary Care Provider Unavailabl e Encounter Details Date Type Department Care Team (Late st Contact Info) Description 06/03/2021 Transcribed Document [facility] [place] Family Medicine [facility] [place] [address] ProviderPrasanth MD [address] [place] [address] Social History Tobacco Use Types [...] Performed On: 06/03/2021 11:55 EDT by TATE CRESPO, PT Student Discharge Summary Reason for Discharge : Other: Pt at [facility]. Discharged to, Therapy : Other: Pt staying [...]
--- OUTSIDE RECORDS SUMMARY | 2025-05-09 11:51 | XMS_ITS | Encounter Summary ---
Author Organization [employer] ([place], [place], [place], [place]) Address [address] [place] [address] Care Team Providers Care Film Projector Operator Name Role Phone Unavailable Primary Care Provider Unavailabl e Encounter Details Date Type Department Care Team (Late st Contact Info) Description 08/05/2020 Transcribed Document [facility] [place] Family Medicine [address] [place] [address] ProviderPrasanth MD [address] [place] [address] Social History Tobacco Use Types [...] Insurance 1 Health Plan: MEDICARE Policy Number: [id number] Authorization Number: Insurance Primary Name : MEDICARE Policy Number: [id number] Historical Authorization Comments-Primary : No Authorization Comments Found DIVINA HUGHES Rn-Utilization Review - 08/05/2020 14:39 EDT Electronically signed by Carla Shelton Conversion Occupational Therapist Rehab Manager Richard at 01/26/2023 9:10 PM CDT documented in this encounter Plan of Treatment Not on file documented as of this encounter Visit Diagnoses Not on filedocumented in this encounter
--- OUTSIDE RECORDS SUMMARY | 2025-05-09 11:51 | XMS_ITS | Encounter Summary ---
Author Organization [employer] ([place], [place], [place], [place]) Address [address] [place] [address] Care Team Providers Care Customs Verifier Name Role Phone Unavailable Primary Care Provider Unavailabl e Encounter Details Date Type Department Care Team (Late st Contact Info) Description 08/04/2020 Transcribed Document [facility] [place] Family Medicine [address] [place] [address] ProviderPrasanth MD [address] [place] [address] Social History Tobacco Use Types Packs/Day Years Used Date Smoking Tobacco: Never Assessed Sex and Gender Information Value Date Recorded Sex Assigned at Not on file Legal Sex Male 6:49 PM CDT Gender Identity Not on file Sexual Orientation Not on file documented as of this encounter Miscellaneous Notes * Cerner Conversion Note - Prasanth ProviderMD - 08/04/2020 4:00 PM CDT Event Note Entered On: 08/04/2020 17:10 EDT Performed On: 08/04/2020 16:00 EDT by WALTER POWELL RN Event Note Event Date/Time : 08/04/2020 16:00 EDT Event Location : Assigned room Description of Event : No changes, continues pain free. SR heart monitor. WALTER POWELL RN - 08/04/2020 17:01 EDT Electronically signed by Carla Shelton Conversion Home Economics Extension Worker Cerner at 01/26/2023 9:01 PM CDT documented in this encounter Plan of Treatment Not on file documented as of this encounter Visit Diagnoses Not on filedocumented in this encounter
--- OUTSIDE RECORDS SUMMARY | 2025-05-09 11:51 | XMS_ITS | Encounter Summary ---
Author Organization [employer] ([place], [place], [place], [place]) Address [address] [place] [address] Care Team Providers Care Hand Scraper Name Role Phone Unavailable Primary Care Provider Unavailabl e Encounter Details Date Type Department Care Team (Late st Contact Info) Description 10/29/2019 Transcribed Document [facility] Cardiology [address] [place] [address] Jamshid Holman MD [address] [facility] [address] [place] [id number] Social History Tobacco Use Types Packs/Day Years [...] pacemaker insertion. 3. Supravalvular aortography. OPERATORS: 1. iMchael Fontana MD. 2. Jamshid Holman MD. 3. Roberta Quinonez MD. PROCEDURAL DETAILS: 1. The patient was brought to the hybrid operating room and placed under conscious sedation managed by the anesthesia staff physician. 2. Using a micropuncture access needle, a 4-Gambian sheath was inserted in the right common femoral artery. Angiography revealed appropriate sheath position and arterial size for a large sheath insertion. A 6-Gambian sheath was inserted. The 6-Gambian was exchanged for a single Perclose deployed in a pre-close technique and the sheath upsized to 8-Gambian. Of note, the first two Perclose catheters missed but a wire was inserted and a third Perclose took appropriately. A 6-Gambian sheath was inserted in the left femoral artery and a 6-Gambian sheath was inserted in the left femoral vein. Through the venous sheath, a 5-Gambian transvenous pacemaker was inserted and advanced to the right ventricular free wall. Pacing capture was confirmed. Through the 6-Gambian arterial sheath, a 5-Gambian pigtail catheter was inserted and advanced to the right coronary cusp. Supravalvular aortography was performed. 3. The 8-Gambian sheath was exchanged over a support wire for a 16-Gambian Mancia eSheath which was secured with suture. Heparin was administered to achieve a therapeutic ACT. 4. Through the Mancia sheath, a 6-Gambian AL1 diagnostic catheter and a straight-tipped 0.035 [...] pacing, the valve was deployed with prompt hoahaoism of stable hemodynamics and rhythm. The delivery [...] Perclose was tightened with good hemostasis. A 6-Gambian arterial sheath was removed and a Mynx closure was deployed with good hemostasis. The venous sheath was removed and manual compression was held with good hemostasis. 7. The patient was transferred to the postanesthesia care unit in stable condition. 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 /[id number] MD LAKISHA Calixto/ASHLEY / LAKISHA / MODL /[id number] documented in this encounter Plan of Treatment Not on file documented as of this encounter Visit Diagnoses Not on filedocumented in this encounter
--- OUTSIDE RECORDS SUMMARY | 2025-05-09 11:51 | XMS_ITS | Encounter Summary ---
Author Organization [employer] ([place], [place], [place], [place]) Address [address] [place] [address] Care Team Providers Care Rivet Passer Name Role Phone Unavailable Primary Care Provider Unavailabl e Encounter Details Date Type Department Care Team (Late st Contact Info) Description 08/04/[address] [facility] [place] Family Medicine [address] [place] [address] ProviderPrasanth MD [address] [place] [address] Social History Tobacco Use Types [...]
--- OUTSIDE RECORDS SUMMARY | 2025-05-09 11:51 | XMS_ITS | Encounter Summary ---
Author Organization [employer] ([place], [place], [place], [place]) Address [address] [place] [address] Care Team Providers Care Gravel Screener Name Role Phone Unavailable Primary Care Provider Unavailabl e Encounter Details Date Type Department Care Team (Late st Contact Info) Description 09/11/2019 Transcribed Document [facility] [place] Family Medicine [address] [place] [address] ProviderPrasanth MD [address] [place] [address] Social History Tobacco Use Types Packs/Day Years Used Date Smoking Tobacco: Never Assessed Sex and Gender Information Value Date Recorded Sex Assigned at Not on file Legal Sex Male 6:49 PM CDT Gender Identity Not on file Sexual Orientation Not on file documented as of this encounter Miscellaneous Notes * Cerner Conversion Note - Prasanth Sanchez MD - 09/11/2019 11:49 AM RIGGING SLINGER Patient Education Materials Follows: Groin Site Care [...] Document Reviewed: 10/29/2011 ExitCare? Patient Information ?2013 [employer]. Moderate Conscious Sedation, Adult, Care After These [...] you are awake and alert. ??? Take qhbq-aqt-wemragr and prescription medicines only as told by [...] 07/17/2014 Document Revised: 02/28/2017 Document Reviewed: 01/15/2017 [employer] Interactive Patient Education ? 2019 [employer] documented in this encounter Plan of Treatment Not on file documented as of this encounter Visit Diagnoses Not on filedocumented in this encounter
--- OUTSIDE RECORDS SUMMARY | 2025-05-09 11:51 | XMS_ITS | Encounter Summary ---
Author Organization [employer] ([place], [place], [place], [place]) Address [address] [place] [address] Care Team Providers Care Art Objects Supervisor Name Role Phone Unavailable Primary Care Provider Unavailabl e Encounter Details Date Type Department Care Team (Late st Contact Info) Description 09/11/2019 Transcribed Document [facility] [place] Family Medicine [address] [place] [address] ProviderPrasanth MD [address] [place] [address] Social History Tobacco Use Types Packs/Day Years Used Date Smoking Tobacco: Never Assessed Sex and Gender Information Value Date Recorded Sex Assigned at Not on file Legal Sex Male 6:49 PM CDT Gender Identity Not on file Sexual Orientation Not on file documented as of this encounter Miscellaneous Notes * Cerner Conversion Note - Prasanth Sanchez MD - 09/11/2019 11:55 AM CONSTRUCTION PLANT OPERATOR DATE OF CONSULTATION: 09/11/2019 REASON FOR CONSULTATION: Evaluation of aortic stenosis. HISTORY OF PRESENT ILLNESS: Mr. 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 He also has undergone previous [...] Mr. Cormier and his and they understand. /[id number] Flaco Kyle IV, MD RDF/AQ / RDF / MODL /[id number] CC: Jason Easley MD documented in this encounter Plan of Treatment Not on file documented as of this encounter Visit Diagnoses Not on filedocumented in this encounter
--- OUTSIDE RECORDS SUMMARY | 2025-05-09 11:51 | XMS_ITS | Encounter Summary ---
Author Organization [email or web address] ([place], [place], [place], [place]) Address [address] [place] [address] Care Team Providers Care Water Vessel Captain Name Role Phone Unavailable Primary Care Provider Unavailabl e Encounter Details Date Type Department Care Team (Late st Contact Info) Description 09/26/2019 Transcribed Document [facility] [place] [address] [place] [address] ProviderPrasanth MD [address] [place], [place] [id number] Social History Tobacco Use Types Packs/Day Years Used Date Smoking Tobacco: Never Assessed Sex and Gender Information Value Date Recorded Sex Assigned at Not on file Legal Sex Male 6:49 PM CDT Gender Identity Not on file Sexual Orientation Not on file documented as of this encounter Miscellaneous Notes * Cerner Conversion Note - Historical ProviderMD - 09/26/2019 10:31 AM SATURATOR OPERATOR UM Authorization Entered On: 09/26/2019 10:31 EST Performed On: 09/26/2019 10:31 EST by DIVINA HUGHES Rn-Utilization Review Primary Insurance Authorization Authorization and Policy Numbers : Insurance 1 Health Plan: MEDICARE Policy Number: [id number] Authorization Number: NOT REQUIRED Insurance 2 Health Plan: AARP N Policy Number: [id number] Authorization Number: NOT REQUIRED Insurance Primary Name : MEDICARE Policy Number: [id number] AARP N Policy Number: [id number] Historical Authorization Comments-Primary : No Authorization Comments Found DIVINA HUGHES Rn-Utilization Review - 09/26/2019 10:31 EST Electronically signed by [facility] Conversion Pre Sales Systems Engineer Cerner at 01/26/2023 9:09 PM CDT documented in this encounter Plan of Treatment Not on file documented as of this encounter Visit Diagnoses Not on filedocumented in this encounter
--- OUTSIDE RECORDS SUMMARY | 2025-05-09 11:51 | XMS_ITS | Encounter Summary ---
Author Organization [employer] ([place], [place], [place], [place]) Address [address] [place] [address] Care Team Providers Care Cost Control Supervisor Name Role Phone Unavailable Primary Care Provider Unavailabl e Encounter Details Date Type Department Care Team (Late st Contact Info) Description 06/04/2021 Transcribed Document [facility] [place] Family Medicine [address] [place] [address] ProviderPrasanth MD [address] [place] [address] Social History Tobacco Use Types [...]
--- OUTSIDE RECORDS SUMMARY | 2025-05-09 11:51 | XMS_ITS | Encounter Summary ---
Author Organization [employer] ([place], [place], [place], [place]) Address [address] [place] [address] Care Team Providers Care Steam And Gas Turbine Assembler Name Role Phone Unavailable Primary Care Provider Unavailabl e Encounter Details Date Type Department Care Team (Late st Contact Info) Description 06/03/2021 Transcribed Document [facility] [place] [address] [place] [address] ProviderPrasanth MD [address] [place] [address] Social History Tobacco Use Types Packs/Day Years Used Date Smoking Tobacco: Never Assessed Sex and Gender Information Value Date Recorded Sex Assigned at Not on file Legal Sex Male 6:49 PM CDT Gender Identity Not on file Sexual Orientation Not on file documented as of this encounter Miscellaneous Notes * Cerner Conversion Note - Prasanth Sanchez MD - 06/03/2021 9:57 AM CDT Patient: SHIRA [...]
--- OUTSIDE RECORDS SUMMARY | 2025-05-09 11:51 | XMS_ITS | Encounter Summary ---
Author Organization [employer] ([place], [place], [place], [place]) Address [address] [place] [address] Care Team Providers Care Welding Machine Operator Friction Name Role Phone Unavailable Primary Care Provider Unavailabl e Encounter Details Date Type Department Care Team (Late st Contact Info) Description 09/25/2019 Transcribed Document [facility] [place] Family Medicine [address] [place] [address] ProviderPrasanth MD [address] [place] [address] Social History Tobacco Use Types Packs/Day Years Used Date Smoking Tobacco: Never Assessed Sex and Gender Information Value Date Recorded Sex Assigned at Not on file Legal Sex Male 6:49 PM CDT Gender Identity Not on file Sexual Orientation Not on file documented as of this encounter Miscellaneous Notes * Cerner Conversion Note - Prasanth Sanchez MD - 09/25/2019 12:59 PM RAILROAD CAR INSPECTOR Patient Education Materials Follows: Angiogram, Care After [...] cannot use soap and water, use hand decommissioning well site manager. ? Change your bandage as told by [...] (urine) clear or pale yellow. ??? Take lbgu-oes-nwfmfiq and prescription medicines only as told by [...] 12/23/2009 Document Revised: 09/20/2017 Document Reviewed: 09/20/2017 [employer] Interactive Patient Education ? 2019 [employer] Groin Site Care Refer to this [...] Document Reviewed: 10/29/2011 ExitCare? Patient Information ?2014 [employer]. Moderate Conscious Sedation, Adult, Care After These [...] you are awake and alert. ??? Take tvss-wtl-opbeajb and prescription medicines only as told by [...] 07/17/2014 Document Revised: 02/28/2017 Document Reviewed: 01/15/2017 [employer] Interactive Patient Education ? 2019 [employer] documented in this encounter Plan of Treatment Not on file documented as of this encounter Visit Diagnoses Not on filedocumented in this encounter
--- OUTSIDE RECORDS SUMMARY | 2025-05-09 11:51 | XMS_ITS | Encounter Summary ---
Author Organization [employer] ([place], [place], [place], [place]) Address [address] [place] [address] Care Team Providers Care Quality Assurance Supervisor Body Name Role Phone Unavailable Primary Care Provider Unavailabl e Encounter Details Date Type Department Care Team (Late st Contact Info) Description 09/11/2019 Transcribed Document [facility] [place] Family Medicine [facility] [place] [address] ProviderPrasanth MD [place] [address] Social History Tobacco Use Types Packs/Day Years Used Date Smoking Tobacco: Never Assessed Sex and Gender Information Value Date Recorded Sex Assigned at Not on file Legal Sex Male 6:49 PM CDT Gender Identity Not on file Sexual Orientation Not on file documented as of this encounter Miscellaneous Notes * Cerner Conversion Note - Prasanth ProviderMD - 09/11/2019 6:28 AM ROLL CLAMP OPERATOR Pre Procedure Adult Entered On: 09/11/2019 6:39 EST Performed On: 09/11/2019 6:28 EST by AV KING RN Height and Weight, Clinical Dosing Height Source : Stated Height Entry Format : Nelson Height, Feet : 5 ft(Converted to: 152 cm, 60 Inch) Height, Inches : 10 Inch(Converted to: 0 ft 10 Inch, 25.40 cm) Clinical Height : 177.8 cm Weight Source : Standing scale Weight Entry Format : Nelson Clinical Dosing Weight : 92.27 kg Weight, Pounds : 203 lb Body Surface Area (BSA) : 2.1 m2 Body Mass Index : 29.2 kg/m2 (HI) [place] Body Weight : 72 kg AV KING RN - 09/11/2019 6:28 EST Health Histories Smoking Status : Former smoker, quit more than 30 days ago Smokeless Tobacco Status : Never AV KING RN - 09/11/2019 6:28 EST Social History (As Of: 09/11/2019 06:39:15 EST) Tobacco: 3 cigs in evening- 1954- 2007. quit 2007. Smoking Status. (Last Updated: 11/14/2018 07:19:01 EST by RADAH TERRAZAS, WILL) Alcohol: Alcohol Use History No. (Last Updated: 11/14/2018 07:19:08 EST by RADHA TERRAZAS, WILL) Substance Abuse: Drug Use Hx: No. Use in Last 12 Months: No. (Last Updated: 11/14/2018 07:19:13 EST by RADHA TERRAZAS, WILL) Infectious Disease History Infectious Disease History : [...] AV KING RN - 09/11/2019 6:28 EST [place] Suicide Severity Rating Scale (C-SSRS) CSSRS Past [...] #2 Relationship : .. Primary Language : German Communication Barrier : None AV KING RN [...] Scale Risk Level : 0-24 Low Risk [place] Interventions : Adequate lighting, Assistive devices [...]
--- OUTSIDE RECORDS SUMMARY | 2025-05-09 11:51 | XMS_ITS | Encounter Summary ---
Author Organization [employer] ([place], [place], [place], [place]) Address [address] [place] [address] Care Team Providers Care Calculation Reviewer Name Role Phone Unavailable Primary Care Provider Unavailabl e Encounter Details Date Type Department Care Team (Late st Contact Info) Description 06/03/2021 Transcribed Document [facility] [place] [facility] [place] [address] ProviderPrasanth MD [address] [place] [address] Social History Tobacco Use Types [...] Diagnostic Results Radiology Results (Last 48 hours) [id number] -- 06/02/2021 12:02 CR Chest 2 Vws [...] Lymph # 1.96 x10(3)/uL 06/02/2021 21:54 EDT [place] % 9.8 % (High) 06/03/2021 03:08 EDT [place] % 10.5 % (High) 06/02/2021 21:54 EDT [place] # 0.66 K/uL 06/03/2021 03:08 EDT [place] # 0.63 K/uL 06/02/2021 21:54 EDT Eos [...] P; CJ AVITIA MD-INT 06/02/2021 14:11 EDT Electronically signed by [facility], [facility] Conversion Cdl Program Coordinator Cerner at 01/26/2023 8:54 PM CDT documented in this encounter Plan of Treatment Not on file documented as of this encounter Visit Diagnoses Not on filedocumented in this encounter
--- OUTSIDE RECORDS SUMMARY | 2025-05-09 11:51 | XMS_ITS | Encounter Summary ---
Author Organization [employer] ([place], [place], [place], [place]) Address [address] [place] [address] Care Team Providers Care Captain Airline Pilot Name Role Phone Unavailable Primary Care Provider Unavailabl e Encounter Details Date Type Department Care Team (Late st Contact Info) Description 09/11/2019 Transcribed Document [facility] [place] Family Medicine [address] [place] [address] ProviderPrasanth MD [address] [place] [address] Social History Tobacco Use Types Packs/Day Years Used Date Smoking Tobacco: Never Assessed Sex and Gender Information Value Date Recorded Sex Assigned at Not on file Legal Sex Male 6:49 PM CDT Gender Identity Not on file Sexual Orientation Not on file documented as of this encounter Miscellaneous Notes * Cerner Conversion Note - Historical ProviderMD - 09/11/2019 9:20 AM SOLDERER ASSEMBLER Event Note Entered On: 09/11/2019 9:24 EST Performed On: 09/11/2019 9:20 EST by AV KING RN Event Note Event Date/Time : 09/11/2019 9:00 EST Description of Event : Patient returned from rn cardiac cath with right groin mynx in palce, no [...] 09/11/2019 9:20 EST Electronically signed by Nikita [facility] Conversion Telemarketing Supervisor Cerner at 01/26/2023 8:49 PM CDT documented in this encounter Plan of Treatment Not on file documented as of this encounter Visit Diagnoses Not on filedocumented in this encounter
--- OUTSIDE RECORDS SUMMARY | 2025-05-09 11:51 | XMS_ITS | Encounter Summary ---
Author Organization [employer] ([place], [place], [place], [place]) Address [address] [place] [address] Care Team Providers Care Smudger Name Role Phone Unavailable Primary Care Provider Unavailabl e Encounter Details Date Type Department Care Team (Late st Contact Info) Description 08/05/2020 Transcribed Document [facility] [place] Family Medicine [address] [place] [address] ProviderPrasanth MD [address] [place] [address] Social History Tobacco Use Types [...] - Medical Apixaban 5 mg, Oral, Tab, [id number], Routine, Start 08/06/20 7:00:00 EDT, 08/06/20 7:00:00 EDT (CJ AVITIA) Medications aspirin, 81 mg= 1 Tab, Oral, Daily Eliquis, 5 mg= 1 Tab, Oral, [id number] hydroCHLOROthiazide, 12.5 mg= 0.5 Tab, Oral, Daily [...]
--- OUTSIDE RECORDS SUMMARY | 2025-05-09 11:51 | XMS_ITS | Encounter Summary ---
Author Organization [employer] ([place], [place], [place], [place]) Address [address] [place] [address] Care Team Providers Care Technical Laboratory Asst Name Role Phone Unavailable Primary Care Provider Unavailabl e Encounter Details Date Type Department Care Team (Late st Contact Info) Description 09/11/2019 Transcribed Document [facility] [place] Medicine [facility] [place] [address] ProviderPrasanth MD [place] [address] Social History Tobacco Use Types Packs/Day Years Used Date Smoking Tobacco: Never Assessed Sex and Gender Information Value Date Recorded Sex Assigned at Not on file Legal Sex Male 6:49 PM CDT Gender Identity Not on file Sexual Orientation Not on file documented as of this encounter Miscellaneous Notes * Cerner Conversion Note - Prasanth ProviderMD - 09/11/2019 11:52 AM EXECUTIVE COACH Nursing Discharge Summary Entered On: 09/11/2019 11:52 [...] 09/11/2019 11:52 EST Electronically signed by Nikita [facility] Conversion Installment Dealer Cerner at 01/26/2023 8:50 PM CDT documented in this encounter Plan of Treatment Not on file documented as of this encounter Visit Diagnoses Not on filedocumented in this encounter
--- OUTSIDE RECORDS SUMMARY | 2025-05-09 11:51 | XMS_ITS | Encounter Summary ---
Author Organization [employer] ([place], [place], [place], [place]) Address [address] [place] [address] Care Team Providers Care Forge Utility Worker Name Role Phone Unavailable Primary Care Provider Unavailabl e Encounter Details Date Type Department Care Team (Late st Contact Info) Description 06/02/2021 Transcribed Document [facility] [place] Family Medicine [address] [place] [address] ProviderPrasanth MD [address] [place] [address] Social History Tobacco Use Types [...] integrated, provides little strength/resource Active in a Jainism/Kirsten Group : No Buddhism Preference : No moravian Dean Palmer Chaplain-Non Cert - 06/02/2021 20:52 EDT Spiritual Assessment Patient's Community/Relationship : Strength in patient's life Supportive Buddhism Community : No Spirital Assessment Comment/Summary Report : SPIRITUAL ASSESSMENT COMMENT/SUMMARY No qualifying data available. Dean Palmer Chaplain-Non Cert - 06/02/2021 20:52 EDT Interventions Advance Directive Information Provided : No Emotional Support : Empathic/Engaged listening, Established trust, Information provided Spiritual and Buddhism : Verify kirsten group connection, Spiritual/Buddhism life explored Dean Palmer, Fleet Administrator-Non Cert - 06/02/2021 20:52 EDT Electronically signed by Nikita, [facility] Conversion Assistant Customer Service Manager Cerner at 01/26/2023 9:10 PM CDT documented in this encounter Plan of Treatment Not on file documented as of this encounter Visit Diagnoses Not on filedocumented in this encounter
--- OUTSIDE RECORDS SUMMARY | 2025-05-09 11:51 | XMS_ITS | Encounter Summary ---
Author Organization [employer] ([place], [place], [place], [place]) Address [address] [place] [address] Care Team Providers Care Hydro Sprayer Operator Name Role Phone Unavailable Primary Care Provider Unavailabl e Encounter Details Date Type Department Care Team (Late st Contact Info) Description 09/26/2019 Transcribed Document [facility] Cardiology [address] [place] [address] Lee Ann Quinonez MD [address] [facility] [address] [place] [id number] Social History Tobacco Use Types Packs/Day Years [...] Temp 97.6 (SEP 26 06:32) 97.6 (SEP 26 06:32) 98.1 (SEP 25 08:33) Mon HR 58 (SEP 26 06:32) 44 (SEP 25 11:35) 70 (SEP 25 [...] Normal strength, No deformity. Integumentary: Warm, Dry, [place], No rash. Neurologic: Alert, Oriented, No focal [...]
--- OUTSIDE RECORDS SUMMARY | 2025-05-09 11:51 | XMS_ITS | Encounter Summary ---
Author Organization [employer] ([place], [place], [place], [place]) Address [address] [place] [address] Care Team Providers Care Scientific Systems Analyst Name Role Phone Unavailable Primary Care Provider Unavailabl e Encounter Details Date Type Department Care Team (Late st Contact Info) Description 08/04/2020 Transcribed Document [facility] [place] Family Medicine [address] [place] [address] ProviderPrasanth MD [address] [place] [address] Social History Tobacco Use Types [...] Tish Calvillo Rn - 08/04/2020 20:28 EDT Electronically signed by Carla Shelton Conversion Medical Doctor Nuclear Medicine Cerner at 01/26/2023 9:05 PM CDT documented in this encounter Plan of Treatment Not on file documented as of this encounter Visit Diagnoses Not on filedocumented in this encounter
--- OUTSIDE RECORDS SUMMARY | 2025-05-09 11:51 | XMS_ITS | Encounter Summary ---
Author Organization [employer] ([place], [place], [place], [place]) Address [address] [place] [address] Care Team Providers Care Drafter Electromechanical Name Role Phone Unavailable Primary Care Provider Unavailabl e Encounter Details Date Type Department Care Team (Late st Contact Info) Description 06/03/2021 Transcribed Document [facility] [place] [address] [place] [address] ProviderPrasanth MD [address] [place] [address] Social History Tobacco Use Types [...]
--- OUTSIDE RECORDS SUMMARY | 2025-05-09 11:51 | XMS_ITS | Encounter Summary ---
Author Organization [employer] ([place], [place], [place], [place]) Address [address] [place] [address] Care Team Providers Care Tipple Tender Name Role Phone Unavailable Primary Care Provider Unavailabl e Encounter Details Date Type Department Care Team (Late st Contact Info) Description 06/04/2021 Transcribed Document [facility] [place] [address] [place] [address] ProviderPrasanth MD [address] [place] [address] Social History Tobacco Use Types [...]
--- OUTSIDE RECORDS SUMMARY | 2025-05-09 11:51 | XMS_ITS | Referral Summary ---
Author Organization [employer] ([place], [place], [place], [place]) Address [address] [place] [address] Care Team Providers Care Yield Analyst Name Role Phone Unavailable Primary Care [...]
--- OUTSIDE RECORDS SUMMARY | 2025-05-09 11:51 | XMS_ITS | Encounter Summary ---
Author Organization [employer] ([place], [place], [place], [place]) Address [address] [place] [address] Care Team Providers Care Gis Engineer Name Role Phone Unavailable Primary Care Provider Unavailabl e Encounter Details Date Type Department Care Team (Late st Contact Info) Description 08/05/2020 Transcribed Document [facility] [place] Family Medicine [address] [place] [address] ProviderPrasanth MD [address] [place] [address] Social History Tobacco Use Types [...] Performed On: 08/05/2020 17:35 EDT by MARYBETH MORAN Rn-Classifications Officer Cc/Cm Initial Assessment I Previously Documented Living Environment [...] Listed? : Yes Medical Durable Power of Kick Press Operator Name : Legal Guardian : No MARYBETH MORAN Rn-Classifications Officer Cc/Cm - 08/05/2020 17:35 EDT Initial Assessment II Sensory and Motor Deficits : None, Weakness Current Home Treatments and Equipment : None MARYBETH MORAN Rn-Classifications Officer Cc/Cm - 08/05/2020 17:35 EDT Discharge Needs I Anticipated Discharge Date : 08/06/2020 EDT Anticipated Discharge To, CM : Home with family care Current Home Treatment/Equipment : Current Home Treatment/Equipment No qualifying data available. Post Acute/Home Treatments : None Documentation Status Complete : Yes MARYBETH MORAN Rn-Classifications Officer Cc/Cm - 08/05/2020 17:35 EDT Discharge Needs II Professional Skilled Services : Professional Skilled Services No qualifying data available. Needs Assistance with Transportation : No Discharge Options Discussed with Patient : Discharge transportation, Outpatient services MARBYETH MORAN Rn-Classifications Officer Cc/Cm - 08/05/2020 17:35 EDT Narrative Note Narrative Note : Patient is I-ADL, will drive home, anticipate dc tomorrow with Eliquis or coumadin. MARYBETH MORAN Rn-Classifications Officer Cc/Cm - 08/05/2020 17:35 EDT documented in this encounter Plan of Treatment Not on file documented as of this encounter Visit Diagnoses Not on filedocumented in this encounter
--- OUTSIDE RECORDS SUMMARY | 2025-05-09 11:51 | XMS_ITS | Encounter Summary ---
Author Organization [employer] ([place], [place], [place], [place]) Address [address] [place] [address] Care Team Providers Care Station Baggage Porter Name Role Phone Unavailable Primary Care Provider Unavailabl e Encounter Details Date Type Department Care Team (Late st Contact Info) Description 06/02/2021 Transcribed Document [facility] [place] Family Medicine [address] [place] [address] ProviderPrasanth MD [address] [place] [address] Social History Tobacco Use Types Packs/Day Years Used Date Smoking Tobacco: Never Assessed Sex and Gender Information Value Date Recorded Sex Assigned at Not on file Legal Sex Male 6:49 PM CDT Gender Identity Not on file Sexual Orientation Not on file documented as of this encounter Miscellaneous Notes * Cerner Conversion Note - Prasanth ProviderMD - 06/02/2021 9:50 AM CDT Broset [...]
--- OUTSIDE RECORDS SUMMARY | 2025-05-09 11:51 | XMS_ITS | Encounter Summary ---
Author Organization [employer] ([place], [place], [place], [place]) Address [address] [place] [address] Care Team Providers Care Electrical Engineering Draftsperson Name Role Phone Unavailable Primary Care Provider Unavailabl e Encounter Details Date Type Department Care Team (Late st Contact Info) Description 08/06/2020 Transcribed Document [facility] [place] [address] [place] [address] ProviderPrasanth MD [address] [place] [address] Social History Tobacco Use Types Packs/Day Years Used Date Smoking Tobacco: Never Assessed Sex and Gender Information Value Date Recorded Sex Assigned at Not on file Legal Sex Male 6:49 PM CDT Gender Identity Not on file Sexual Orientation Not on file documented as of this encounter Miscellaneous Notes * Cerner Conversion Note - Prasanth ProviderMD - 08/06/2020 5:00 AM CDT Chart [...]
--- OUTSIDE RECORDS SUMMARY | 2025-05-09 11:51 | XMS_ITS | Encounter Summary ---
Author Organization [employer] ([place], [place], [place], [place]) Address [address] [place] [address] Care Team Providers Care Credit Collections Manager Name Role Phone Unavailable Primary Care Provider Unavailabl e Encounter Details Date Type Department Care Team (Late st Contact Info) Description 11/04/2019 Transcribed Document [facility] [place] Family Medicine [address] [place] [address] ProviderPrasanth MD [facility] [place] [address] Social History Tobacco Use Types Packs/Day Years Used Date Smoking Tobacco: Never Assessed Sex and Gender Information Value Date Recorded Sex Assigned at Not on file Legal Sex Male 6:49 PM CDT Gender Identity Not on file Sexual Orientation Not on file documented as of this encounter Miscellaneous Notes * Cerner Conversion Note - Prasanth ProviderMD - 11/04/2019 7:33 PM FARM APPRAISER ED Assessment Entered On: 11/04/2019 21:44 EST Performed On: 11/04/2019 20:00 EST by MARIA TERESA KAT RN ED Quick Look Assessment Level of Consciousness : Alert, Awake Affect/Behavior : Appropriate, Calm, Cooperative Orientation : Oriented x 4 Skin Color : Other: normal Skin Temperature : Warm Skin Description : Dry MARIA TERESA KAT RN - 11/04/2019 21:37 EST ED General-Functional Assess Information Obtained From : Patient Preferred Communication Mode : Verbal Communication Barrier : None Primary Language : Guyanese Any Spiritual/Cultural Needs or Requests : No Currently in Unsafe Situation : No MARIA TERESA KTA RN - 11/04/2019 21:37 EST Social Habits [...]
--- OUTSIDE RECORDS SUMMARY | 2025-05-09 11:51 | XMS_ITS | Encounter Summary ---
Author Organization [employer] ([place], [place], [place], [place]) Address [address] [place] [address] Care Team Providers Care Criminal Defense Attorney Name Role Phone Unavailable Primary Care Provider Unavailabl e Encounter Details Date Type Department Care Team (Late st Contact Info) Description 10/30/2019 Transcribed Document [facility] [place] [address] [place] [address] ProviderPrasanth MD [address] [place] [address] Social History Tobacco Use Types Packs/Day Years Used Date Smoking Tobacco: Never Assessed Sex and Gender Information Value Date Recorded Sex Assigned at Not on file Legal Sex Male 6:49 PM CDT Gender Identity Not on file Sexual Orientation Not on file documented as of this encounter Miscellaneous Notes * Cerner Conversion Note - Prasanth ProviderMD - 10/30/2019 3:11 PM HAND SAMPLE MAKER Final Discharge Planning Entered On: 10/30/2019 15:12 [...] : Yes Discharge To Care Management : Home/Residential/[facility]ci or Self Care - SABRINA ROSE RN-Care Management - 10/30/2019 15:11 EST Electronically signed by Nikita, [facility] Conversion Disposition Clerk Cerner at 01/26/2023 8:58 PM CDT documented in this encounter Plan of Treatment Not on file documented as of this encounter Visit Diagnoses Not on filedocumented in this encounter
--- OUTSIDE RECORDS SUMMARY | 2025-05-09 11:51 | XMS_ITS | Encounter Summary ---
Author Organization [employer] ([place], [place], [place], [place]) Address [address] [place] [address] Care Team Providers Care Grinder Chipper Name Role Phone Unavailable Primary Care Provider Unavailabl e Encounter Details Date Type Department Care Team (Late st Contact Info) Description 06/04/2021 Transcribed Document [facility] [place] Family Medicine [address] [place] [address] ProviderPrasanth MD [address] [place] [address] Social History Tobacco Use Types [...] Performed On: 06/04/2021 15:42 EDT by Chang Medrano, Lead Etl Developer-Student Nurse Discharge Documentation Discharge Date/Time : 06/04/2021 [...] Discharge, Comment : [facility] to recieve a months worth of free samples of Eliquis to take since the patient had said he would not pay for Eliquis due to the smith. He galindo use the free samples until he se Dr. Layne on 06/09 and discusses with him whether or not to continue the Eliquis. Chang Medrano, Lead Etl Developer-Student Nurse - 06/04/2021 15:42 EDT documented in this encounter Plan of Treatment Not on file documented as of this encounter Visit Diagnoses Not on filedocumented in this encounter
--- OUTSIDE RECORDS SUMMARY | 2025-05-09 11:51 | XMS_ITS | Encounter Summary ---
Author Organization [employer] ([place], [place], [place], [place]) Address [address] [place] [address] Care Team Providers Care Drip Pumper Name Role Phone Unavailable Primary Care Provider Unavailabl e Encounter Details Date Type Department Care Team (Late st Contact Info) Description 11/14/2018 Transcribed Document [facility] [place] Family Medicine [facility] [place] [address] ProviderPrasanth MD [facility] [place] [address] Social History Tobacco Use Types Packs/Day Years Used Date Smoking Tobacco: Never Assessed Sex and Gender Information Value Date Recorded Sex Assigned at Not on file Legal Sex Male 6:49 PM CDT Gender Identity Not on file Sexual Orientation Not on file documented as of this encounter Miscellaneous Notes * Cerner Conversion Note - Prasanth Sanchez MD - 11/14/2018 12:26 PM PLANT INSPECTOR [address] [address] Patient Copy Patient Information: Name: SHIRA GARZA HORACIO Current Date: 11/14/2018 12:26:04 : 1935 Patient Address: [address] [place] [address] [place] [address] Patient Attending Physician: Primary Care Provider: KARON [...] is done for people who: ??? Have Qvaws-Fygfjkjaz-Jqmif syndrome. ??? Have other fast heart rhythms [...] 02/21/2014 Elsevier Interactive Patient Education ? 2017 [employer] Atrial Flutter Atrial flutter is a [...] Follow these instructions at home: ??? Take iwlr-hmk-nqspxsq and prescription medicines only as told by [...] 02/12/2010 Document Revised: 02/02/2017 Document Reviewed: 04/09/2016 [employer] Interactive Patient Education ? 2017 [employer] Moderate Conscious Sedation, Adult, Care After [...] you are awake and alert. ??? Take tvfq-jkb-kljchyz and prescription medicines only as told by [...] 07/17/2014 Document Revised: 02/28/2017 Document Reviewed: 01/15/2017 ElseSnapwire Interactive Patient Education ? 2017 [employer] CIGARETTE SMOKING: The facts are clear, cigarette smoking will shorten your life. Smoking can cause many illnesses along the way. As a healthcare provider, we recommend that you stop smoking. Assistance with quitting is available by contacting 6-957-VBGV-NOW. This is a free resource providing counseling, [...] Be sure to sign up for the [employer] patient portal, which gives you 02/05 access to your medical information ??? including these discharge instructions ??? using your computer, smartphone, or tablet. Just go to [employer] to get started. Questions? Call . [facility] would like to thank you for allowing us to assist you with your healthcare needs. KAYLA Yee RONALD HORACIO, (or outbound telemarketing representative) have received the above patient education materials/instructions and have verbalized understanding: Patient Signature _ Date/Time Patient Log [facility] Signature (if needed) Date/Time Clinician/Hospital Log [facility] Signature (if needed) Date/Time Electronically signed by Filiberto Shelton Conversion Set Up And Lay Out Inspector Devynner at 01/26/2023 9:10 PM CDT documented in this encounter Plan of Treatment Not on file documented as of this encounter Visit Diagnoses Not on filedocumented in this encounter
--- OUTSIDE RECORDS SUMMARY | 2025-05-09 11:51 | XMS_ITS | Encounter Summary ---
Author Organization [employer] ([place], [place], [place], [place]) Address [address] [place] [address] Care Team Providers Care Secretary Administrative Assistant Name Role Phone Unavailable Primary Care Provider Unavailabl e Encounter Details Date Type Department Care Team (Late st Contact Info) Description 06/03/2021 Transcribed Document [facility] [place] Family Medicine [address] [place] [address] ProviderPrasanth MD [address] [place] [address] Social History Tobacco Use Types [...] On: 06/03/2021 15:57 EDT by EMILIE MOON RN-Slitter Processed Film Initial Assessment I Previously Documented Living Environment : No qualifying data available. Living Situation : Home Patient Lives With : Spouse Employment/Vocation : Retired Emergency Contact #1 : Rosa Elena Bustamante Emergency Contact #1 Phone Number : [phone] Emergency Contact #1 Relationship : Emergency Contact #2 : na Emergency Contact #2 Phone Number : na Emergency Contact #2 Relationship : na Enter Doctors Name : Nicole Juan Does Patient have PCP Listed? : Yes Medical Durable Power of Cut Order Hand Name : Legal Guardian : No EMILIE MOON RN-Slitter Processed Film - 06/03/2021 15:57 EDT Initial Assessment II Sensory and Motor Deficits : None, Weakness Current Home Treatments and Equipment : None EMILIE MOON RN-Slitter Processed Film - 06/03/2021 15:57 EDT Discharge Needs I Anticipated Discharge Date : 06/06/2021 EDT Anticipated Discharge To, CM : Home with family care, Home with home health Current Home Treatment/Equipment : Current Home Treatment/Equipment No qualifying data available. Documentation Status Complete : Yes EMILIE MOON RN-Slitter Processed Film - 06/03/2021 15:57 EDT Discharge Needs II Professional Skilled Services : Professional Skilled Services No qualifying data available. Needs Assistance with Transportation : No Discharge Options Discussed with Patient : Discharge transportation, DME, Home Health Patient Discharge Goal : Home EMILIE MOON RN-Slitter Processed Film - 06/03/2021 15:57 EDT Narrative Note Narrative [...] pain. Consults: Cardiology, Neurology Patient lives in [place] with his Rosa Elena [phone]. His PCP is Dr. Martinez. Patient is ADL independent, drives and very active at home. No prior rehab stay, home health services, home oxygen or DME. will transport at discharge. DCP: Anticipate patient will discharge home with . CM will continue to follow for any needed referrals. EMILIE MOON RN-Slitter Processed Film - 06/03/2021 15:57 EDT documented in this encounter Plan of Treatment Not on file documented as of this encounter Visit Diagnoses Not on filedocumented in this encounter
--- OUTSIDE RECORDS SUMMARY | 2025-05-09 11:51 | XMS_ITS | Encounter Summary ---
Author Organization [employer] ([place], [place], [place], [place]) Address [address] [place] [address] Care Team Providers Care Choral Director Name Role Phone Unavailable Primary Care Provider Unavailabl e Encounter Details Date Type Department Care Team (Late st Contact Info) Description 10/30/2019 Transcribed Document [facility] [place] Family Medicine [address] [place] [address] ProviderPrasanth MD [address] [place] [address] Social History Tobacco Use Types Packs/Day Years Used Date Smoking Tobacco: Never Assessed Sex and Gender Information Value Date Recorded Sex Assigned at Not on file Legal Sex Male 6:49 PM CDT Gender Identity Not on file Sexual Orientation Not on file documented as of this encounter Miscellaneous Notes * [employer] Conversion Note - Historical ProviderMD - 10/30/2019 12:20 PM MANUFACTURING CLERK Stroke/Warfarin Instructions Entered On: 10/30/2019 12:20 EST Performed On: 10/30/2019 12:20 EST by Jason Thompson, RN Stroke/Warfarin Instructions Stroke/TIA Discharge Ins : N/A Warfarin Discharge Ins : N/A Jason Thompson RN - 10/30/2019 12:20 EST documented in this encounter Plan of Treatment Not on file documented as of this encounter Visit Diagnoses Not on filedocumented in this encounter
--- OUTSIDE RECORDS SUMMARY | 2025-05-09 11:51 | XMS_ITS | Encounter Summary ---
Author Organization [employer] ([place], [place], [place], [place]) Address [address] [place] [address] Care Team Providers Care Assistant Media Planner Name Role Phone Unavailable Primary Care Provider Unavailabl e Encounter Details Date Type Department Care Team (Late st Contact Info) Description 06/04/[address] [facility] [place] Family Medicine Formerly [facility] [place] [address] ProviderPrasanth MD Formerly [facility] [place] [address] Social History Tobacco Use Types [...] - 06/04/2021 11:49 AM CDT Patient: SHIRA GARZA HORACIO Age: [...] 11:43 am [4] Reason for Hospitalization Mr. Garza is an 85-year-old white man who comes [...] BURRELL MD-INT History of Present Illness Mr. Garza [...] reliability. This morning he tried to call [facility] cardiology to report chest discomfort and unusual [...] tablet 5 mg = 1 Tab, Oral, Q44YNpo hydroCHLOROthiazide-lisinopril 12.5 mg-20 mg oral tablet 1 [...] Type: Blood, Routine collect, 06/06/21 21:45:00 EDT, MoWe, Lab Collect Platelet Count Specimen Type: Blood, Routine collect, 06/04/21 12:40:00 EDT, Q48H, Nurse Collect Time Spent on Discharge 45 minutes [1] CR Chest 2 Vws; Kezia Louise, Earth Science Teacher 06/02/2021 10:51 EDT [2] [facility]; LEE ANN CELESTE MD-CAR 06/02/2021 13:01 EDT [3] [facility]ASC[facility]; LEE ANN CELESTE MD-CAR 06/02/2021 13:01 EDT [4] CT Head WO; CAN HEALY 06/02/2021 10:53 EDT [5] Admission H & P; CJ AVITIA MD-INT 06/02/2021 14:11 EDT [6] Hospitalist Progress Note - APSO; CJ AVITIA MD-INT 06/03/2021 13:11 EDT Electronically signed by Nikita [facility] Conversion Continuity Clerk Cerner at 01/26/2023 8:52 PM CDT documented in this encounter Plan of Treatment Not on file documented as of this encounter Visit Diagnoses Not on filedocumented in this encounter
--- OUTSIDE RECORDS SUMMARY | 2025-05-09 11:51 | XMS_ITS | Encounter Summary ---
Author Organization [employer] ([place], [place], [place], [place]) Address [address] [place] [address] Care Team Providers Care Policy Specialist Name Role Phone Unavailable Primary Care Provider Unavailabl e Encounter Details Date Type Department Care Team (Late st Contact Info) Description 10/26/2019 Transcribed Document [facility] [place] [address] [place] [address] ProviderPrasanth MD [address] [place] [address] Social History Tobacco Use Types Packs/Day Years Used Date Smoking Tobacco: Never Assessed Sex and Gender Information Value Date Recorded Sex Assigned at Not on file Legal Sex Male 6:49 PM CDT Gender Identity Not on file Sexual Orientation Not on file documented as of this encounter Miscellaneous Notes * Cerner Conversion Note - Historical ProviderMD - 10/26/2019 4:21 PM TELEMARKETING FUNDRAISER Education-General Entered On: 10/30/2019 4:52 EST Performed On: 10/26/2019 16:21 EST by Rimma Blackmon RN Teaching/Learning Assessment Barriers To Learning : None evident Individuals Taught : Patient, Family member Learning Style Preferences Patient : None Rimma Blackmon RN - 10/30/2019 4:52 EST Electronically signed by Carla Shelton Conversion Generating Plant Superintendent Cerner at 01/26/2023 8:49 PM CDT documented in this encounter Plan of Treatment Not on file documented as of this encounter Visit Diagnoses Not on filedocumented in this encounter
--- OUTSIDE RECORDS SUMMARY | 2025-05-09 11:51 | XMS_ITS | Encounter Summary ---
Author Organization [employer] ([place], [place], [place], [place]) Address [address] [place] [address] Care Team Providers Care Heddle Machine Operator Name Role Phone Unavailable Primary Care Provider Unavailabl e Encounter Details Date Type Department Care Team (Late st Contact Info) Description 10/30/2019 Transcribed Document [facility] Cardiology [address] [place] [address] Lee Ann Quinonez MD [address] [address] [place] [address] Social History Tobacco Use Types [...] None Author: LEE ANN QUINONEZ MD-CAR BASIC Broke Beater: Dr. Easley Subjective Post TAVR, doing well, ready for discharge home today. Health Status Current medications: (Selected) Inpatient Medications Ordered Ambien: 5 mg, Oral, At Bedtime, PRN: Sleep Artificial Tears ophthalmic solution: 1 Drop, Eyes Both, TID, PRN: Dry Eyes Likely Saline 0.65% nasal solution: 1 Alto, Nasal, Q4H, PRN: Congestion Dulcolax Laxative: 10 [...] 87 (OCT 29 11:00) MAP 99 (OCT 30:15) 79 (OCT 29 13:00) 121 (OCT 29 11:00) SpO2 L 92 (OCT 30:) L 92 (OCT 30:15) 100 (OCT 29 [...] Normal strength, No deformity. Integumentary: Warm, Dry, [place], No rash. Neurologic: Alert, Oriented, No focal [...]
--- OUTSIDE RECORDS SUMMARY | 2025-05-09 11:51 | XMS_ITS | Encounter Summary ---
Author Organization [employer] ([place], [place], [place], [place]) Address [address] [place] [address] Care Team Providers Care Thread Winder Automatic Name Role Phone Unavailable Primary Care Provider Unavailabl e Encounter Details Date Type Department Care Team (Late st Contact Info) Description 06/03/2021 Transcribed Document [facility] [place] [address] [place] [address] ProviderPrasanth MD [address] [place] [address] Social History Tobacco Use Types Packs/Day Years Used Date Smoking Tobacco: Never Assessed Sex and Gender Information Value Date Recorded Sex Assigned at Not on file Legal Sex Male 6:49 PM CDT Gender Identity Not on file Sexual Orientation Not on file documented as of this encounter Miscellaneous Notes * Cerner Conversion Note - Historical ProviderMD - 06/03/2021 11:03 AM CDT PRINTED CIRCUIT BOARDS LAMINATOR Attempt to Treat Entered On: 06/03/2021 11:03 EDT Performed On: 06/03/2021 11:03 EDT by JANES WHITTINGTON SLP Attempt to Treat Inability to Treat Comment : Further cognitive evaluation not warranted. Notification : JANES LAM SLP - 06/03/2021 11:03 EDT Electronically signed by Nikita [facility] Conversion Morphology Teacher Cerner at 01/26/2023 9:10 PM CDT documented in this encounter Plan of Treatment Not on file documented as of this encounter Visit Diagnoses Not on filedocumented in this encounter
--- OUTSIDE RECORDS SUMMARY | 2025-05-09 11:51 | XMS_ITS | Encounter Summary ---
Author Organization [employer] ([place], [place], [place], [place]) Address [address] [place] [address] Care Team Providers Care Test Eng Name Role Phone Unavailable Primary Care Provider Unavailabl e Encounter Details Date Type Department Care Team (Late st Contact Info) Description 11/04/[address] [facility] [place] Family Medicine On license of [facility] [place] [address] ProviderPrasanth MD [address] [place] [address] Social History Tobacco Use Types Packs/Day Years Used Date Smoking Tobacco: Never Assessed Sex and Gender Information Value Date Recorded Sex Assigned at Not on file Legal Sex Male 6:49 PM CDT Gender Identity Not on file Sexual Orientation Not on file documented as of this encounter Miscellaneous Notes * Cerner Conversion Note - Prasanth Sanchez MD - 11/04/2019 10:27 PM WET PAN MIXER DATE OF ADMISSION: 11/04/2019 PRIMARY CARE PHYSICIAN: Dr. Marcelino Caldera, [facility]. REFERRING PHYSICIAN: Dr. Beckman, [facility] , 1935. CURRENT COMPLAINT: [...] children. He and his live in the [facility], [place]. 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 [...] anticipate likely permanent pacemaker placement on 11/05. /[id number] MD RHIANNON Martínez/AQ / MGAmaury / MODL CC: MD Roberta Royal MD Hamid R Mohammadzadeh, MD Jason Sartini Electronically signed by [facility], [facility] Conversion Assistant Associate Professor Cerner at 01/26/2023 8:53 PM CDT documented in this encounter Plan of Treatment Not on file documented as of this encounter Visit Diagnoses Not on filedocumented in this encounter
--- OUTSIDE RECORDS SUMMARY | 2025-05-09 11:51 | XMS_ITS | Encounter Summary ---
Author Organization [employer] ([place], [place], [place], [place]) Address [address] [place] [address] Care Team Providers Care Flooring Grader Name Role Phone Unavailable Primary Care Provider Unavailabl e Encounter Details Date Type Department Care Team (Late st Contact Info) Description 06/02/2021 Transcribed Document [facility] [place] Family Medicine [address] [place] [address] ProviderPrasanth MD [address] [place] [address] Social History Tobacco Use Types [...] On: 06/02/2021 12:40 EDT by Chang Medrano Respiratory Care Assistant-Student Nurse Teaching/Learning Assessment Barriers To Learning : None evident Individuals Taught : Patient Readiness to Learn : Cooperative Readiness to Learn : Explanation, Teach back method Learning Style Preferences Patient : Verbal explanation Learning Style Preferences Family : Verbal explanation Chang Medrano, Respiratory Care Assistant-Student Nurse - 06/02/2021 15:51 EDT Education Topics: Stroke (By Discharge) Stroke Education Handouts Given *Q : Yes Chang Medrano Respiratory Care Assistant-Student Nurse - 06/02/2021 15:51 EDT Stroke Education Materials Given-Grid Activation of EMS *Q : Verbalizes understanding Follow-up Care After Discharge *Q : Verbalizes understanding Medications prescribed at DC *Q : Verbalizes understanding Risk Factors for Stroke *Q : Verbalizes understanding Warning S&S of Stroke *Q : Verbalizes understanding Chang Medrano, Respiratory Care Assistant-Student Nurse - 06/02/2021 15:51 EDT Individualized Stroke Risk Factors *Q : Coronary artery disease, Hypertension/High blood pressure Chang Medrano, Respiratory Care Assistant-Student Nurse - 06/02/2021 15:51 EDT Electronically signed by [facility], [facility] Conversion Staff Development Coordinator Rn Cerner at 01/26/2023 9:10 PM CDT documented in this encounter Plan of Treatment Not on file documented as of this encounter Visit Diagnoses Not on filedocumented in this encounter
--- OUTSIDE RECORDS SUMMARY | 2025-05-09 11:51 | XMS_ITS | Encounter Summary ---
Author Organization [employer] ([place], [place], [place], [place]) Address [address] [place] [address] Care Team Providers Care Accounts Payable Clerk Name Role Phone Unavailable Primary Care Provider Unavailabl e Encounter Details Date Type Department Care Team (Late st Contact Info) Description 08/04/2020 Transcribed Document [facility] Family Medicine [address] [place] [address] ProviderPrasanth MD [address] [place] [address] Social History Tobacco Use Types [...] at that time. The patient presented to [facility] on 08/03 with complaints of midsternal sharp chest pain, radiating in nature to bilateral arms and jaws. He had associated shortness of breath, worsened with exertion. He took a total of 4 nitroglycerin over 45 minutes without relief. CTA revealed gallstones, punctate calcifications throughout the pancreas, bilateral adrenal adenomas, nonobstructing right renal stones, no pulmonary emboli. The patient was transferred to [facility] for higher level of care and cardiac [...] CAD/ prior 5V CABG optimize medical management [facility] 09/2019 revealed patent grafts Thrombosed aortic [...] Cardiac Cath 09/2019 noted patency of grafts documented in this encounter Plan of Treatment Not on file documented as of this encounter Visit Diagnoses Not on filedocumented in this encounter
--- OUTSIDE RECORDS SUMMARY | 2025-05-09 11:51 | XMS_ITS | Encounter Summary ---
Author Organization [employer] ([place], [place], [place], [place]) Address [address] [place] [address] Care Team Providers Care Income Tax Preparer Name Role Phone Unavailable Primary Care Provider Unavailabl e Encounter Details Date Type Department Care Team (Late st Contact Info) Description 10/30/2019 Transcribed Document [facility] [place] Family Medicine [address] [place] [address] ProviderPrasanth MD [address] [place] [address] Social History Tobacco Use Types Packs/Day Years Used Date Smoking Tobacco: Never Assessed Sex and Gender Information Value Date Recorded Sex Assigned at Not on file Legal Sex Male 6:49 PM CDT Gender Identity Not on file Sexual Orientation Not on file documented as of this encounter Miscellaneous Notes * Cerner Conversion Note - Prasanth Sanchez MD - 10/30/2019 12:20 PM OIL RAG WASHER Patient Education Materials Follows: Groin Site Care [...] Document Reviewed: 10/29/2011 ExitCare? Patient Information ?2013 [employer]. documented in this encounter Plan of Treatment Not on file documented as of this encounter Visit Diagnoses Not on filedocumented in this encounter
--- OUTSIDE RECORDS SUMMARY | 2025-05-09 11:51 | XMS_ITS | Encounter Summary ---
Author Organization [employer] ([place], [place], [place], [place]) Address [address] [place] [address] Care Team Providers Care Tram Inspector Name Role Phone Unavailable Primary Care Provider Unavailabl e Encounter Details Date Type Department Care Team (Late st Contact Info) Description 09/11/2019 Transcribed Document [facility] [place] [address] [place] [address] ProviderPrasanth MD [address] [place] [address] Social History Tobacco Use Types Packs/Day Years Used Date Smoking Tobacco: Never Assessed Sex and Gender Information Value Date Recorded Sex Assigned at Not on file Legal Sex Male 6:49 PM CDT Gender Identity Not on file Sexual Orientation Not on file documented as of this encounter Miscellaneous Notes * Cerner Conversion Note - Historical ProviderMD - 09/11/2019 12:14 PM HOUSE PIPING INSPECTOR Event Note Entered On: 09/11/2019 12:17 EST [...] 09/11/2019 12:14 EST Electronically signed by Nikita [facility] Conversion Director Account Management Cerner at 01/26/2023 9:01 PM CDT documented in this encounter Plan of Treatment Not on file documented as of this encounter Visit Diagnoses Not on filedocumented in this encounter
--- OUTSIDE RECORDS SUMMARY | 2025-05-09 11:51 | XMS_ITS | Encounter Summary ---
Author Organization [employer] ([place], [place], [place], [place]) Address [address] [place] [address] Care Team Providers Care Bottom Turning Lathe Tender Name Role Phone Unavailable Primary Care Provider Unavailabl e Encounter Details Date Type Department Care Team (Late st Contact Info) Description 08/06/2020 Transcribed Document [facility] [place] Family Medicine [address] [place] [address] ProviderPrasanth MD [address] [place] [address] Social History Tobacco Use Types Packs/Day Years Used Date Smoking Tobacco: Never Assessed Sex and Gender Information Value Date Recorded Sex Assigned at Not on file Legal Sex Male 6:49 PM CDT Gender Identity Not on file Sexual Orientation Not on file documented as of this encounter Miscellaneous Notes * Cerner Conversion Note - Prasanth Sanchez MD - 08/06/2020 12:49 PM CDT Patient Education [...] a heart-healthy eating plan. Medicines ??? Take nwqn-zwe-ehbatix and prescription medicines only as told by [...] 09/26/2006 Document Revised: 10/08/2019 Document Reviewed: 10/08/2019 myGreek Patient Education ? 2020 [employer]. Pharmacology Aspirin and Your Heart Aspirin is [...] The two forms of aspirin are: ? Gqm-qwwgbiu-sgtajv.This type of aspirin does not have a coating and is absorbed quickly. This type of aspirin also comes in a chewable form. ? Enteric-coated. This type of aspirin has a coating that releases the medicine very slowly. Enteric-coated aspirin might cause less stomach upset than tfz-rtbsibr-mxhfdq aspirin. This type of aspirin should not [...] 09/08/2009 Document Revised: 07/27/2018 Document Reviewed: 07/27/2018 ElseGeoSentric Patient Education ? 2020 [employer]. Preventive Health Venous Thromboembolism Prevention Venous thromboembolism [...] for Disease Control and Prevention: www.cdc.gov ??? [place] Heart Association: www.heart.org Get help right away [...] Reviewed: 12/04/2019 Elsevier Patient Education ? 2019 [employer] Inc. Procedures Mitral Valve Replacement Mitral valve [...] including vitamins, herbs, eye drops, creams, and nybv-wpl-bxjkjxs medicines. ??? Any problems you or family [...] tells you to take them. ? Taking cxon-xps-cjgfcnm medicines, vitamins, herbs, and supplements. Staying hydrated [...] 01/27/2006 Document Revised: 06/19/2019 Document Reviewed: 06/19/2019 ElseGeoSentric Patient Education ? 2020 [employer]. documented in this encounter Plan of Treatment Not on file documented as of this encounter Visit Diagnoses Not on filedocumented in this encounter
--- OUTSIDE RECORDS SUMMARY | 2025-05-09 11:51 | XMS_ITS | Encounter Summary ---
Author Organization [employer] ([place], [place], [place], [place]) Address [address] [place] [address] Care Team Providers Care Vendor Analyst Name Role Phone Unavailable Primary Care Provider Unavailabl e Encounter Details Date Type Department Care Team (Late st Contact Info) Description 11/14/2018 Transcribed Document [facility] [place] Family Medicine [address] [place] [address] ProviderPrasanth MD [address] [place] [address] Social History Tobacco Use Types Packs/Day Years Used Date Smoking Tobacco: Never Assessed Sex and Gender Information Value Date Recorded Sex Assigned at Not on file Legal Sex Male 6:49 PM CDT Gender Identity Not on file Sexual Orientation Not on file documented as of this encounter Miscellaneous Notes * Cerner Conversion Note - Praasnth ProviderMD - 11/14/2018 11:32 AM COMPLETION ENGINEER Nursing Discharge Summary Entered On: 11/14/2018 11:33 EST Performed On: 11/14/2018 11:32 EST by RADHA TERRAZAS residential designer Documentation Patient Disposition, General : Discharge Discharge [...] - 11/14/2018 12:32 EST Electronically signed by [facility] Conversion Rubber Roller Grinder Cerner at 01/26/2023 9:08 PM CDT documented in this encounter Plan of Treatment Not on file documented as of this encounter Visit Diagnoses Not on filedocumented in this encounter
--- OUTSIDE RECORDS SUMMARY | 2025-05-09 11:51 | XMS_ITS | Encounter Summary ---
Author Organization [employer] ([place], [place], [place], [place]) Address [address] [place] [address] Care Team Providers Care Press Loader Name Role Phone Unavailable Primary Care Provider Unavailabl e Encounter Details Date Type Department Care Team (Late st Contact Info) Description 09/11/2019 Transcribed Document [facility] [place] Family Medicine [address] [place] [address] ProviderPrasanth MD [address] [place] [address] Social History Tobacco Use Types Packs/Day Years Used Date Smoking Tobacco: Never Assessed Sex and Gender Information Value Date Recorded Sex Assigned at Not on file Legal Sex Male 6:49 PM CDT Gender Identity Not on file Sexual Orientation Not on file documented as of this encounter Miscellaneous Notes * Cerner Conversion Note - Prasanth Sanchez MD - 09/11/2019 11:52 AM TRACTOR MECHANIC APPRENTICE [facility] [place] [address] MIYA GARZAALD HORACIO :1935 Visit Time:09/11/2019 Your Visit Summary Your Care Team Admitting Physician - LACIE ALVA MD-CAR Attending Physician - LACIE ALVA MD-CAR Primary Care Physician - KARON MCWILLIAMS MD-INT Referring Physician - LACIE ALVA MD-CAR Your Diagnosis Angina pectoris, unspecified, Angina pectoris, [...] appoint/instructions Where: [address] [place] [phone] Medications What How Much When Instructions Next [...] 12/18/2012 Document Reviewed: 10/29/2011 ExitCare?? Patient Information ??2014 [employer]. Moderate Conscious Sedation, Adult, Care After These [...] you are awake and alert. ??? Take rggz-smn-lwqdgmb and prescription medicines only as told by [...] 07/17/2014 Document Revised: 02/28/2017 Document Reviewed: 01/15/2017 RESAAS Interactive Patient Education ?? 2019 [employer] Inc. Emergency Awareness and Preventative Care STROKE [...] Assistance with quitting is available by contacting 7-804-LDLQNOW. This is a free resource providing counseling, [...] was given the opportunity to ask questions. Patient/Fabrication Manager Name: Patient/Fabrication Manager Signature: Relationship to Patient: Clinician/Hospital Fabrication Manager Signature: Date: Electronically signed by [facility], [facility] Conversion Manager Rental Richard at 01/26/2023 9:08 PM CDT documented in this encounter Plan of Treatment Not on file documented as of this encounter Visit Diagnoses Not on filedocumented in this encounter
--- OUTSIDE RECORDS SUMMARY | 2025-05-09 11:51 | XMS_ITS | Encounter Summary ---
Author Organization [employer] ([place], [place], [place], [place]) Address [address] [place] [address] Care Team Providers Care Manager Legal Name Role Phone Unavailable Primary Care Provider Unavailabl e Encounter Details Date Type Department Care Team (Late st Contact Info) Description 11/04/2019 Transcribed Document [facility] [place] [address] [place] [address] ProviderPrasanth MD [address] [place] [address] Social History Tobacco Use Types Packs/Day Years Used Date Smoking Tobacco: Never Assessed Sex and Gender Information Value Date Recorded Sex Assigned at Not on file Legal Sex Male 6:49 PM CDT Gender Identity Not on file Sexual Orientation Not on file documented as of this encounter Miscellaneous Notes * Cerner Conversion Note - Prasanth ProviderMD - 11/04/2019 11:45 PM GUNSTOCK SPRAY UNIT ADJUSTER Education-Critical Care Entered On: 11/04/2019 23:45 EST Performed On: 11/04/2019 23:45 EST by DESMOND CRUZ RN Teaching/Learning Assessment Barriers To Learning : None evident Individuals Taught : Patient Readiness to Learn : Cooperative Highest Level of Education : University degree(s) Baseline Knowledge of Topic : Good Readiness to Learn : Explanation Learning Style Preferences Patient : Verbal explanation DESMOND CRUZ, WILL - 11/04/2019 23:45 EST Education Topics, Critical [...]
--- OUTSIDE RECORDS SUMMARY | 2025-05-09 11:51 | XMS_ITS | Encounter Summary ---
Author Organization [employer] ([place], [place], [place], [place]) Address [address] [place] [address] Care Team Providers Care Plodding Machine Operator Name Role Phone Unavailable Primary Care Provider Unavailabl e Encounter Details Date Type Department Care Team (Late st Contact Info) Description 08/05/2020 Transcribed Document [facility] [place] Family [place] [facility] [address] ProviderPrasanth [place] [address] Social History Tobacco Use Types Packs/Day Years Used Date Smoking Tobacco: Never Assessed Sex and Gender Information Value Date Recorded Sex Assigned at Not on file Legal Sex Male 6:49 PM CDT Gender Identity Not on file Sexual Orientation Not on file documented as of this encounter Miscellaneous Notes * Cerner Conversion Note - Prasanth Sanchez MD - 08/05/2020 9:19 AM CDT Patient: SHIRA GARZA HORACIO Age: 85 years Sex: Male : 1935 Associated Diagnoses: None Author: CELESTINA RUIZ APRN [facility] CARDIOLOGY PROGRESS NOTE: DIAGNOSIS: 1. NSTEMI 2. Thrombosed aortic valve SUBJECTIVE: denies chest pain shortness of breath palpitations Vitals Signs (last 24 hrs) Last Charted Minimum Maximum Temp 98.6 (AUG 05 05:29) 97 (AUG 04 12:07) 98.1 (AUG 05:29) Apical HR 68 (AUG 04 21:36) 68 [...] 05 01:29) Clinical Weight CLINICALWEIGHT: 88.64 kg (08/04/20::) [place] Body Weight: 70 kg (08/04/20::) Intake & [...] CAD/ prior 5V CABG optimize medical management [facility] 09/2019 revealed patent grafts Thrombosed aortic valve, [...]
--- OUTSIDE RECORDS SUMMARY | 2025-05-09 11:52 | XMS_ITS | Encounter Summary ---
Author Organization [employer] ([place], [place], [place], [place]) Address [address] [place] [address] Care Team Providers Care Professional Employer Consultant Name Role Phone Unavailable Primary Care Provider Unavailabl e Encounter Details Date Type Department Care Team (Late st Contact Info) Description 11/07/2019 Transcribed Document [facility] [address] [place] [address] Abel Kapadia MD [address] [place] [address] [place] [address] Social History Tobacco Use Types Packs/Day Years [...] 11/08/2019 PRIMARY CARE PHYSICIAN: Dr. Marcelino Caldera, [facility]. REFERRING PHYSICIAN: Dr. Beckman, [facility] [...] At risk for sleep apnea / IMO [id number] / Confirmed Shortness of breath / SNOMED CT 950356060 / Confirmed Hypertension / SNOMED CT 42155948 / Confirmed Wears glasses / SNOMED CT 726129568 / Confirmed, Active Problems (11) Aortic stenosis [...] gallop, S1+ S2 No S3 or S4 Lucas.. Gastrointestinal: Soft, Non-tender, Non-distended, Normal bowel sounds. [...] (NOV 04) Radiology Results (Last 48 hours) [id number] -- 11/04/2019 21:19 CT Head WO (11/05/2019 [...]
--- OUTSIDE RECORDS SUMMARY | 2025-05-09 11:52 | XMS_ITS | Encounter Summary ---
Author Organization [employer] ([place], [place], [place], [place]) Address [address] [place] [address] Care Team Providers Care Residential Supervisor Name Role Phone Unavailable Primary Care Provider Unavailabl e Encounter Details Date Type Department Care Team (Late st Contact Info) Description 12/30/[address] [facility] Family Medicine [address] [place] [address] ProviderPrasanth MD [address] [place] [address] Social History Tobacco Use Types [...]
--- OUTSIDE RECORDS SUMMARY | 2025-05-09 11:52 | XMS_ITS | Encounter Summary ---
Author Organization [employer] ([place], [place], [place]) Address [address] [place] [address] Care Team Providers Care Media Theorist And Author Of Name Role Phone Unavailable Primary Care Provider Unavailabl e Encounter Details Date Type Department Care Team (Late st Contact Info) Description 10/29/2019 Transcribed Document [facility] Family Medicine [address] [place] [address] ProviderPrasanth MD [address] [place] [address] Social History Tobacco Use Types Packs/Day Years Used Date Smoking Tobacco: Never Assessed Sex and Gender Information Value Date Recorded Sex Assigned at Not on file Legal Sex Male 6:49 PM CDT Gender Identity Not on file Sexual Orientation Not on file documented as of this encounter Miscellaneous Notes * Cerner Conversion Note - Prasanth ProviderMD - 10/29/2019 8:11 AM MANAGER ENTRY [facility] Main OR PACU Summary Primary Physician: MARK HAIRSTON MD-CAT Finalized Date/Time: 10/29/19 11:47:09 Pt. Name: SHIRA GARZA HORACIO /Sex: 1935 Male Med Rec #: [id number] Physician: MARK HAIRSTON MD-CAT Financial #: [id number] Pt. Type: I Room/Bed: [facility]/1 Admit/Disch: 10/29/19 07:03:00 - Institution: [facility] Main OR PACU I Case Times Entry [...]
--- OUTSIDE RECORDS SUMMARY | 2025-05-09 11:52 | XMS_ITS | Encounter Summary ---
Author Organization [employer] ([place], [place], [place], [place]) Address [address] [place] [address] Care Team Providers Care Dental Treatment Coordinator Name Role Phone Unavailable Primary Care Provider Unavailabl e Encounter Details Date Type Department Care Team (Late st Contact Info) Description 12/30/2020 Transcribed Document [facility] Family Medicine [facility] [place] [address] ProviderPrasanth MD [address] [place] [address] Social History Tobacco Use Types Packs/Day Years Used Date Smoking Tobacco: Never Assessed Sex and Gender Information Value Date Recorded Sex Assigned at Not on file Legal Sex Male 6:49 PM CDT Gender Identity Not on file Sexual Orientation Not on file documented as of this encounter Miscellaneous Notes * Cerner Conversion Note - Prasanth ProviderMD - 12/30/2020 8:05 AM CDT Pre Procedure Adult Entered On: 12/30/2020 8:12 EDT Performed On: 12/30/2020 8:05 EDT by Mini Abreu RN Height and Weight, Clinical Dosing Height Source : Stated Height Entry Format : [place] Height, Feet : 5 ft(Converted to: 152 cm, 60 Inch) Height, Inches : 9 Inch(Converted to: 0 ft 9 Inch, 22.86 cm) Clinical Height : 175.26 cm Weight Source : Standing scale Weight Entry Format : [place] Clinical Dosing Weight : 88.64 kg Weight, Pounds : 195 lb Body Surface Area (BSA) : 2.05 m2 Body Mass Index : 28.9 kg/m2 (HI) [place] Body Weight : 70 kg Mini Abreu [...] Mini Abreu RN - 12/30/2020 8:05 EDT [place] Suicide Severity Rating Scale (C-SSRS) CSSRS Past [...] will Copy Advance Directive Verified/on Chart : Mini Barcenas RN - 12/30/2020 8:05 EDT Teaching/Learning Assessment [...] Spouse Legal Guardian : No Support Person/Patient Handtools Repairer : Yes Support Person/Pt Rep Name : Rosa Elena Bustamante- spouse Support Person/Pt Rep Contact Information : [phone] home Want Family/Rep/Phys Notified of Admit : No Emergency Contact #1 : NA Emergency Contact #1 Phone Number : NA Emergency Contact #1 Relationship : NA Emergency Contact #2 : NA Emergency Contact #2 Phone Number : NA Emergency Contact #2 Relationship : NA Information Obtained From : Patient Primary Language : Mosotho Preferred Communication Mode : Verbal Communication Barrier : None Needle Loom Weaver Needed : No Mini Abreu RN - [...] Scale Risk Level : 0-24 Low Risk [place] Fall Interventions : Adequate lighting, Bed in [...]
--- OUTSIDE RECORDS SUMMARY | 2025-05-09 11:52 | XMS_ITS | Encounter Summary ---
Author Organization [employer] ([place], [place], [place], [place]) Address [address] [place] [address] Care Team Providers Care Account Liaison Hospice Name Role Phone Unavailable Primary Care Provider Unavailabl e Encounter Details Date Type Department Care Team (Late st Contact Info) Description 11/08/2019 Transcribed Document [facility] Family Medicine [address] [place] [address] ProviderPrasanth MD [address] [place] [address] Social History Tobacco Use Types Packs/Day Years Used Date Smoking Tobacco: Never Assessed Sex and Gender Information Value Date Recorded Sex Assigned at Not on file Legal Sex Male 6:49 PM CDT Gender Identity Not on file Sexual Orientation Not on file documented as of this encounter Miscellaneous Notes * Cerner Conversion Note - Historical ProviderMD - 11/08/2019 1:34 PM NURSE PRACTITIONER PER DIEM Discharge Summary, PT Entered On: 11/08/2019 13:36 EST Performed On: 11/08/2019 13:34 EST by DRAKE PRICE PT Discharge Summary Discharge Summary Provider Notified [...] DRAKE PRICE, PT - 11/08/2019 13:34 EST Residential Goals Mobility/Bed Mobility LTG PT Grid Goal [...] - 11/08/2019 13:34 EST Electronically signed by [facility] Conversion 1St [employer] Cerner at 01/26/2023 8:49 PM CDT documented in this encounter Plan of Treatment Not on file documented as of this encounter Visit Diagnoses Not on filedocumented in this encounter
--- OUTSIDE RECORDS SUMMARY | 2025-05-09 11:52 | XMS_ITS | Encounter Summary ---
Author Organization [employer] ([place], [place], [place], [place]) Address [address] [place] [address] Care Team Providers Care Ethnology Professor Name Role Phone Unavailable Primary Care Provider Unavailabl e Encounter Details Date Type Department Care Team (Late st Contact Info) Description 11/08/2019 Transcribed Document [facility] Medicine [address] [place] [address] ProviderPrasanth MD [address] [place] [address] Social History Tobacco Use Types Packs/Day Years Used Date Smoking Tobacco: Never Assessed Sex and Gender Information Value Date Recorded Sex Assigned at Not on file Legal Sex Male 6:49 PM CDT Gender Identity Not on file Sexual Orientation Not on file documented as of this encounter Miscellaneous Notes * Cerner Conversion Note - Prasanth Sanchez MD - 11/08/2019 11:42 AM AGRONOMY TECHNICIAN [facility] [place] [address] ALEXANDREFei SHIRA HORACIO :1935 Visit Time:11/04/2019 Your Visit [...] Appointment has been made . Where: [address] [facility] [address] [place] [phone]- Business (1) Follow Up with IRENE MAJANO When 11/15/2019 10:[address] [facility]. Appointment has been made Where: [address] [place], [place] [phone]- Business (1) Follow Up with LACIE ALVA When Within 3 months Comments Call for follow up appointment near the end of December. Where: [address] [place] [address] SECTION OF CARDIOLOGY [place], [place] [phone]- Business (1) Follow Up with KARON CALDERA When Within 1 to 2 weeks Where: [address] [place] [address] SECTION OF INTERNAL MEDIC [place] [phone] Business (1) Follow Up with Patient Resource [...] these instructions at home: Medicines ??? Take dtnr-xia-hbkwukn and prescription medicines only as told by [...] and water are not available, use hand warm in. ? Change your dressing as told by [...] towers. ??? Do not use amateur ( [employer] ) radio equipment or electric ( arc [...] 06/20/2013 Document Revised: 12/14/2017 Document Reviewed: 06/20/2016 obopay Interactive Patient Education ?? 2019 obopay Inc. Head Injury, Adult There are many [...] or school. Ask your doctor for a qwry-mv-wshv plan for slowly going back to your [...] your friends, family, a trusted coworker, and wafer polishing worker about your injury, symptoms, and limits (restrictions). Have them watch for any problems that are new or getting worse. General instructions ??? Take icyo-hha-jlqnnhi and prescription medicines only as told by [...] 04/05/2017 Elsevier Interactive Patient Education ?? 2019 obopay Inc. Subdural Hematoma A subdural hematoma is [...] you to do the same. ??? Take ftta-wuo-jkmirgt and prescription medicines only as told by [...] Where to find more information: ??? National Emery of Neurological Disorders and Stroke: www.ninds.nih.gov ??? [place] Association of Neurological Surgeons: http://www.aans.org ??? [place] Academy of Neurology (AAN): www.aan.com ??? Brain [...] 08/31/2017 Elsevier Interactive Patient Education ?? 2018 obopay Inc. Emergency Awareness and Preventative Care STROKE [...] Assistance with quitting is available by contacting 4-128-THAKNOW. This is a free resource providing counseling, support, and referral. Or you may contact your personal physician. [place] Suicide Prevention Lifeline: The National Suicide Prevention [...] range between ( 0.0 and 7.0 ) Barnes #: 0.61 K/uL -- Normal range between ( 0.16 and 1.00 ) Eos #: 0.09 x10(3)/uL -- Normal range between ( 0.00 and 0.80 ) Barnes %: 9.6 % -- Normal range between [...] was given the opportunity to ask questions. Patient/Flame Cutting Supervisor Name: Patient/Flame Cutting Supervisor Signature: Relationship to Patient: Clinician/Hospital Flame Cutting Supervisor Signature: Date: Electronically signed by Nikita, [facility] Conversion Medical Accounting Clerk Richard at 01/26/2023 8:54 PM CDT documented in this encounter Plan of Treatment Not on file documented as of this encounter Visit Diagnoses Not on filedocumented in this encounter
--- OUTSIDE RECORDS SUMMARY | 2025-05-09 11:52 | XMS_ITS | Encounter Summary ---
Author Organization [employer] ([place], [place], [place], [place]) Address [address] [place] [address] Care Team Providers Care On Air Host Name Role Phone Unavailable Primary Care Provider Unavailabl e Encounter Details Date Type Department Care Team (Late st Contact Info) Description 10/29/2019 Transcribed Document [facility] Family Medicine [address] [place] [address] ProviderPrasanth MD [address] [place] [address] Social History Tobacco Use Types Packs/Day Years Used Date Smoking Tobacco: Never Assessed Sex and Gender Information Value Date Recorded Sex Assigned at Not on file Legal Sex Male 6:49 PM CDT Gender Identity Not on file Sexual Orientation Not on file documented as of this encounter Miscellaneous Notes * Cerner Conversion Note - Historical ProviderMD - 10/29/2019 9:12 AM MAMMA LOGIST Education-Diabetes Topics Entered On: 10/30/2019 4:51 EST Performed On: 10/29/2019 9:12 EST by Rimma Blackmon, RN Teaching/Learning Assessment Barriers To Learning : None evident Learning Style Preferences Patient : None Rimma Blackmon RN - 10/30/2019 4:51 EST documented in this encounter Plan of Treatment Not on file documented as of this encounter Visit Diagnoses Not on filedocumented in this encounter
--- OUTSIDE RECORDS SUMMARY | 2025-05-09 11:52 | XMS_ITS | Encounter Summary ---
Author Organization [employer] ([place], [place], [place], [place]) Address [address] [place] [address] Care Team Providers Care Print Traffic Manager Name Role Phone Unavailable Primary Care Provider Unavailabl e Encounter Details Date Type Department Care Team (Late st Contact Info) Description 11/07/2019 Transcribed Document [facility] [place] [address] [place] [address] ProviderPrasanth MD [address] [place] [address] Social History Tobacco Use Types Packs/Day Years Used Date Smoking Tobacco: Never Assessed Sex and Gender Information Value Date Recorded Sex Assigned at Not on file Legal Sex Male 6:49 PM CDT Gender Identity Not on file Sexual Orientation Not on file documented as of this encounter Miscellaneous Notes * Cerner Conversion Note - Prasanth ProviderMD - 11/07/2019 10:09 AM STRAW BALER Patient: SHIRA GARZA HORACIO Age: 84 years Sex: Male : 1935 Associated Diagnoses: None Author: CELESTINA RUIZ APRN [facility] CARDIOLOGY PROGRESS NOTE: DIAGNOSIS: 1. 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
--- OUTSIDE RECORDS SUMMARY | 2025-05-09 11:52 | XMS_ITS | Encounter Summary ---
Author Organization [employer] ([place], [place], [place], [place]) Address [address] [place] [address] Care Team Providers Care Estate Conservator Name Role Phone Unavailable Primary Care Provider Unavailabl e Encounter Details Date Type Department Care Team (Late st Contact Info) Description 11/07/2019 Transcribed Document [facility] [place] Medicine [address] [place] [address] ProviderParsanth MD [address] [place] [address] Social History Tobacco Use Types Packs/Day Years Used Date Smoking Tobacco: Never Assessed Sex and Gender Information Value Date Recorded Sex Assigned at Not on file Legal Sex Male 6:49 PM CDT Gender Identity Not on file Sexual Orientation Not on file documented as of this encounter Miscellaneous Notes * Cerner Conversion Note - Prasanth ProviderMD - 11/07/2019 2:30 PM SCRAP DEALER On Going Discharge Planning Entered On: 11/07/2019 14:32 EST Performed On: 11/07/2019 14:30 EST by BINH SIDDIQI, RN-Childhood Development TeacherCommercial Drafter Progress Note Discharge Arrangements : Patient Post-Acute Information Patient Name: SHIRA GARZA HORACIO Gender: Male : [birth year] Age: 84 Years No Post-Acute Placement(s) Listed No Post-Acute Service(s) Listed No [place] Referral(s) Listed Discharge Options Discussed with Patient : Home Health BINH SIDDIQI, RN-Childhood Development Teacher - 11/07/2019 14:30 EST Narrative Progress Note Narrative Progress Note : intermittant 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 subdural hematoma post fall. known cad: TAVR. paf-ablation. cad. on transfer to floor. cardene gtt off. clonidine prn x 2. hydrazaline prn x 2. PT/OT: walked with therapy. plavix on hold for pacemaker , -. independent prior to admit. spoke with bedside [...] and assist w/needs as approp. ROSANA CALLEJAS, RN-Childhood Development Teacher - 11/05/19 17:54:54 BINH SIDDIQI, RN-Childhood Development Teacher - 11/07/2019 14:30 EST documented in this encounter Plan of Treatment Not on file documented as of this encounter Visit Diagnoses Not on filedocumented in this encounter
--- OUTSIDE RECORDS SUMMARY | 2025-05-09 11:52 | XMS_ITS | Encounter Summary ---
Author Organization [employer] ([place], [place], [place], [place]) Address [address] [place] [address] Care Team Providers Care Coordinate Measuring Machine Technician Name Role Phone Unavailable Primary Care Provider Unavailabl e Encounter Details Date Type Department Care Team (Late st Contact Info) Description 11/07/2019 Transcribed Document [facility] [place] [address] [place] [address] ProviderPrasanth MD [address] [place] [address] Social History Tobacco Use Types Packs/Day Years Used Date Smoking Tobacco: Never Assessed Sex and Gender Information Value Date Recorded Sex Assigned at Not on file Legal Sex Male 6:49 PM CDT Gender Identity Not on file Sexual Orientation Not on file documented as of this encounter Miscellaneous Notes * Cerner Conversion Note - Historical ProviderMD - 11/07/2019 5:00 PM BIODIESEL PLANT SUPERINTENDENT Chart Check - Review Order Profile Entered On: 11/07/2019 17:33 EST Performed On: 11/07/2019 17:00 EST by MARIBELL MIMS RN Chart Check Powerplans Initiated/Discontinued as Appropriate : Yes MARIBELL MIMS RN - 11/07/2019 17:33 EST Electronically signed by Nikita [facility] Conversion Principal Administrative Clerk Devynner at 01/26/2023 8:59 PM CDT documented in this encounter Plan of Treatment Not on file documented as of this encounter Visit Diagnoses Not on filedocumented in this encounter
--- OUTSIDE RECORDS SUMMARY | 2025-05-09 11:52 | XMS_ITS | Encounter Summary ---
Author Organization [employer] ([place], [place], [place], [place]) Address [address] [place] [address] Care Team Providers Care Paratransit Driver Name Role Phone Unavailable Primary Care Provider Unavailabl e Encounter Details Date Type Department Care Team (Late st Contact Info) Description 08/06/2020 Transcribed Document [facility] [place] Family Medicine [address] [place] [address] ProviderPrasanth MD [address] [place] [address] Social History Tobacco Use Types [...] nitroglycerin and presentation to outside ER at [facility] in [place]. Patient was subsequently transferred here for further [...] tablet 5 mg = 1 Tab, Oral, [id number] hydroCHLOROthiazide-lisinopril 12.5 mg-20 mg oral tablet 1 [...] Ratio 0.9 LOW 08/05/2020 19:33 Bun/Creatinine 22.5 OR 08/05/2020 19:33 Sodium Level 139 mmol/L 08/05/2020 09:53 Potassium Level 3.8 mmol/L 08/05/2020 09:53 Chloride Level 107 mmol/L 08/05/2020 09:53 Carbon Dioxide Level 30 mmol/L 08/05/2020 09:53 Anion Gap 6 LOW 08/05/2020 10:00 Alk Phos 62 Units/Liter 08/05/2020 09:53 ALT 25 Units/Liter 08/05/2020 09:53 AST 27 Units/Liter 08/05/2020 09:53 Blood Urea Nitrogen 27 mg/dL OR 08/05/2020 09:59 Glucose Level 106 mg/dL 08/05/2020 09:53 Albumin Level 3.2 Gram/dL LOW 08/05/2020 10:00 Bilirubin Total 0.5 mg/dL 08/05/2020 09:53 Calcium Level 8.6 mg/dL 08/05/2020 09:53 Coagulation Results (Current Encounter/Past 24 Hours) PT 37.0 Second(s) OR 08/06/2020 04:25 INR 3.5 OR 08/06/2020 04:25 Creatinine Clearance (Current Encounter/Past 24 Hours) Creatinine Level 1.20 mg/dL 08/05/2020 09:53 Bun/Creatinine 22.5 OR 08/05/2020 09:53 Estimated Creatinine Clearance 46.64 mL/Min [...] CR Chest 1 Vw Port; Neha Leung, Director Of Psychology 08/04/2020 12:54 EDT [2] [facility]; WINNIE AYALA MD-CAR 08/04/2020 13:14 EDT [3] Admission H & P; CJ AVITIA MD-INT 08/04/2020 15:01 EDT Electronically signed by Nikita [facility] Conversion Tibco Developer Cerner at 01/26/2023 9:11 PM CDT documented in this encounter Plan of Treatment Not on file documented as of this encounter Visit Diagnoses Not on filedocumented in this encounter
--- OUTSIDE RECORDS SUMMARY | 2025-05-09 11:52 | XMS_ITS | Encounter Summary ---
Author Organization [employer] ([place], [place], [place], [place]) Address [address] [place] [address] Care Team Providers Care Extracorporeal Circulation Specialist Name Role Phone Unavailable Primary Care Provider Unavailabl e Encounter Details Date Type Department Care Team (Late st Contact Info) Description 12/03/2019 Transcribed Document [facility] [place] [address] [place] [address] ProviderPrasanth MD [address] [place] [address] Social History Tobacco Use Types Packs/Day Years Used Date Smoking Tobacco: Never Assessed Sex and Gender Information Value Date Recorded Sex Assigned at Not on file Legal Sex Male 6:49 PM CDT Gender Identity Not on file Sexual Orientation Not on file documented as of this encounter Miscellaneous Notes * [employer] Conversion Note - Historical ProviderMD - 12/03/2019 9:48 AM SUPERVISOR CRACK OFF Event Note Entered On: 12/03/2019 9:49 EST [...] 12/03/2019 9:50 EST Electronically signed by Nikita [facility] Conversion Coal Trimmer Machine Operator Cerner at 01/26/2023 9:12 PM CDT documented in this encounter Plan of Treatment Not on file documented as of this encounter Visit Diagnoses Not on filedocumented in this encounter
--- OUTSIDE RECORDS SUMMARY | 2025-05-09 11:52 | XMS_ITS | Encounter Summary ---
Author Organization [employer] ([place], [place], [place], [place]) Address [address] [place] [address] Care Team Providers Care Heel Washer Stringing Machine Operator Name Role Phone Unavailable Primary Care Provider Unavailabl e Encounter Details Date Type Department Care Team (Late st Contact Info) Description 06/04/2021 Transcribed Document [facility] [place] Family Medicine [address] [place] [address] ProviderPrasanth MD [address] [place] [address] Social History Tobacco Use Types [...] Sanchez MD - 06/04/2021 11:25 AM CDT Patient Education Materials Follows: Heart Attack A heart attack occurs when blood and oxygen supply to the heart is cut off. A heart attack causes damage to the heart that cannot be fixed. A heart attack is also called a myocardial infarction, or AR. If you think you are having a [...] these instructions at home: Medicines ??? Take ndon-oro-ykvkplx and prescription medicines only as told by [...] provider. Document Revised: 01/07/2020 Document Reviewed: 01/07/2020 Elsevier Patient Education ? 2019 [employer] Coronary Artery Disease, Male Coronary artery disease (CAD) is a condition in which the arteries that lead to the heart (coronary arteries) become narrow or blocked. The narrowing or blockage can lead to decreased blood flow to the heart. Prolonged reduced blood flow can cause a heart attack (myocardial infarction or AR). This condition may also be called coronary [...] these instructions at home: Medicines ??? Take mzny-hjf-xwhrsdi and prescription medicines only as told by [...] Document Reviewed: 06/05/2019 Elsevier Patient Education ? 2019 [employer] Hematology Bleeding Precautions When on Anticoagulant [...] blood clot. Taking other medicines ??? Take rlrm-dyc-ztwsdqz and prescriptions medicines only as told by your health care provider. ??? Do not take luvs-mbx-xxnjeiz NSAIDs, including aspirin and ibuprofen, while you [...] use toothpicks. ??? Use a soft-bristled toothbrush. Powderly your teeth gently. ??? Always wear shoes [...] you: ??? Work with a diet and nutritional chemist (dietitian) to make an eating plan. Do [...] provider. Document Revised: 01/16/2020 Document Reviewed: 12/13/2017 [employer] Patient Education ? 2019 [employer] Neurology Transient Ischemic Attack A transient [...] these instructions at home: Medicines ??? Take dkyb-alx-wouqlmq and prescription medicines only as told by [...] provider. Document Revised: 06/22/2019 Document Reviewed: 12/28/2017 [employer] Patient Education ? 2020 [employer]. Preventive Health Venous Thromboembolism Prevention Venous thromboembolism [...] for Disease Control and Prevention: www.cdc.gov ??? English Heart Association: www.heart.org Get help right away [...] provider. Document Revised: 01/15/2020 Document Reviewed: 12/04/2019 [employer] Patient Education ? 2020 [employer] documented in this encounter Plan of Treatment Not on file documented as of this encounter Visit Diagnoses Not on filedocumented in this encounter
--- OUTSIDE RECORDS SUMMARY | 2025-05-09 11:52 | XMS_ITS | Encounter Summary ---
Author Organization [employer] ([place], [place], [place], [place]) Address [address] [place] [address] Care Team Providers Care Pot Filler Name Role Phone Unavailable Primary Care Provider Unavailabl e Encounter Details Date Type Department Care Team (Late st Contact Info) Description 11/07/2019 Transcribed Document [facility] [place] [address] [place] [address] ProviderPrasanth MD [address] [place] [address] Social History Tobacco Use Types Packs/Day Years Used Date Smoking Tobacco: Never Assessed Sex and Gender Information Value Date Recorded Sex Assigned at Not on file Legal Sex Male 6:49 PM CDT Gender Identity Not on file Sexual Orientation Not on file documented as of this encounter Miscellaneous Notes * Cerner Conversion Note - Historical ProviderMD - 11/07/2019 2:00 AM MUSEUM TOUR GUIDE Migration Specialist Details Entered On: 11/07/2019 0:40 EST Performed On: 11/07/2019 2:00 EST by DESMOND CRUZ RN Order [...] Line : No DESMOND CRUZ RN - 11/07/2019 0:40 EST documented in this encounter Plan of Treatment Not on file documented as of this encounter Visit Diagnoses Not on filedocumented in this encounter
--- OUTSIDE RECORDS SUMMARY | 2025-05-09 11:52 | XMS_ITS | Encounter Summary ---
Author Organization [employer] ([place], [place], [place], [place]) Address [address] [place] [address] Care Team Providers Care Renewals Specialist Name Role Phone Unavailable Primary Care Provider Unavailabl e Encounter Details Date Type Department Care Team (Late st Contact Info) Description 11/07/2019 Transcribed Document [facility] Radiology [address] [place] [address] Abel Kapadia MD [address] [place] [address] [place] [address] Social History Tobacco Use Types Packs/Day Years [...] PRIMARY CARE PHYSICIAN: Dr. Marcelino Caldera, [facility]. REFERRING PHYSICIAN: Dr. Beckman, [facility] , 1935. CURRENT COMPLAINT: Falls, dizziness, irregular heartbeat. HISTORY OF PRESENT ILLNESS: Shira Garza is an 84-year-old man, , living in the [facility], who recently underwent a transcatheter aortic valve [...] At risk for sleep apnea / IMO [id number] / Confirmed Shortness of breath / SNOMED CT 553099882 / Confirmed Hypertension / SNOMED CT 33634854 / Confirmed Wears glasses / SNOMED CT 193621020 / Confirmed, Active Problems (11) Aortic stenosis [...] (NOV 07 02:04) Mon HR 52 (NOV 07:15) 36 (NOV 07 00:00) 63 (NOV 06 [...] gallop, S1+ S2 No S3 or S4 Peach.. Gastrointestinal: Soft, Non-tender, Non-distended, Normal bowel sounds. [...] (NOV 04) Radiology Results (Last 48 hours) [id number] -- 11/04/2019 21:19 CT Head WO (11/05/2019 [...] ASA and plavix held f/u 2 weeks NSAmbreen- Dr Rasheed Activity as tolerated pacer wound [...]
--- OUTSIDE RECORDS SUMMARY | 2025-05-09 11:52 | XMS_ITS | Encounter Summary ---
Author Organization [employer] ([place], [place], [place], [place]) Address [address] [place] [address] Care Team Providers Care Site Controller Name Role Phone Unavailable Primary Care Provider Unavailabl e Encounter Details Date Type Department Care Team (Late st Contact Info) Description 06/04/2021 Transcribed Document [facility] [place] [address] [place] [address] ProviderPrasanth MD [address] [place] [address] Social History Tobacco Use Types [...] On: 06/04/2021 9:00 EDT by Chang Medrano, Hvac Tech-Student Nurse NIH Stroke Scale *Q NIH Assessment [...] NIH Scale Score : 0 Chang Medrano, Hvac Tech-Student Nurse - 06/04/2021 8:19 EDT Electronically signed by Nikita [facility] Conversion Tool And Die Maker [employer] Cerner at 01/26/2023 9:01 PM CDT documented in this encounter Plan of Treatment Not on file documented as of this encounter Visit Diagnoses Not on filedocumented in this encounter
--- OUTSIDE RECORDS SUMMARY | 2025-05-09 11:52 | XMS_ITS | Encounter Summary ---
Author Organization [employer] ([place], [place], [place], [place]) Address [address] [place] [address] Care Team Providers Care Breakfast Hostess Name Role Phone Unavailable Primary Care Provider Unavailabl e Encounter Details Date Type Department Care Team (Late st Contact Info) Description 10/29/2019 Transcribed Document [facility] [place] [address] [place] [address] ProviderPrasanth MD [address] [place] [address] Social History Tobacco Use Types Packs/Day Years Used Date Smoking Tobacco: Never Assessed Sex and Gender Information Value Date Recorded Sex Assigned at Not on file Legal Sex Male 6:49 PM CDT Gender Identity Not on file Sexual Orientation Not on file documented as of this encounter Miscellaneous Notes * Cerner Conversion Note - Prasanth Sanchez MD - 10/29/2019 10:20 AM RN ED DATE OF PROCEDURE: 10/29/2019 SURGEON: Michael Fontana [...] that, we were able to place a 6-Surinamese sheath into the right common femoral artery. Angiography revealed an appropriate sheath size and position for a large sheath insertion. A guidewire was then placed into the right common femoral artery and a 6-Surinamese sheath was then subsequently removed. A single Perclose was then deployed in a pre-close fashion and the sheath was then up sized to an 8-Surinamese. A 6-Surinamese sheath was then also inserted into the left common femoral vein and another 6-Surinamese sheath was placed in the left common femoral artery. A 5-Surinamese transvenous pacemaker was inserted through the venous sheath and was advanced under fluoroscopic guidance to the right ventricular free wall. Pacing capture was confirmed. A 5-Surinamese pigtail catheter was then advanced through the left common femoral arterial sheath and was positioned in the right coronary cusp. Supravalvular aortography was then performed. Coplanar view was confirmed. Amplatz Extra Stiff wire was then placed into the 8-Surinamese right femoral arterial sheath and was advanced. The 8-Surinamese right femoral arterial sheath was then removed, and after dilatation of the tissue tract, a 16-Surinamese Mancia eSheath was inserted without difficulty. This sheath was then secured to the skin using silk suture. Heparin was then also administered to achieve a therapeutic ACT. Over the Amplatz Extra Stiff wire, a 6-Surinamese AL1 diagnostic catheter was advanced and a [...] wire and the Perclose was tightened. The 6-Surinamese sheath from the left common femoral artery [...] to the recovery room in stable condition. /[id number] MD DARREN Caro/ASHLEY / HRM / MODL /[id number] CC: MD Jason Caro MD Ryan Waddles, MD Electronically signed by [facility], [facility] Conversion Court Messenger Cerner at 01/26/2023 8:51 PM CDT documented in this encounter Plan of Treatment Not on file documented as of this encounter Visit Diagnoses Not on filedocumented in this encounter
--- OUTSIDE RECORDS SUMMARY | 2025-05-09 11:52 | XMS_ITS | Encounter Summary ---
Author Organization [employer] ([place], [place], [place], [place]) Address [address] [place] [address] Care Team Providers Care Roofer Name Role Phone Unavailable Primary Care Provider Unavailabl e Encounter Details Date Type Department Care Team (Late st Contact Info) Description 11/08/2019 Transcribed Document [facility] Radiology [address] [place] [address] Abel Kapadia MD [address] [place] [address] [place] [address] Social History Tobacco Use Types Packs/Day Years [...] 11/08/2019 PRIMARY CARE PHYSICIAN: Dr. Marcelino Caldera, [facility]. REFERRING PHYSICIAN: Dr. Beckman, [facility] , 1935. CURRENT COMPLAINT: Falls, dizziness, irregular [...] At risk for sleep apnea / IMO [id number] / Confirmed Shortness of breath / SNOMED CT 663431622 / Confirmed Hypertension / SNOMED CT 84810115 / Confirmed Wears glasses / SNOMED CT 226996759 / Confirmed, Active Problems (11) Aortic stenosis [...] gallop, S1+ S2 No S3 or S4 Dunn.. Gastrointestinal: Soft, Non-tender, Non-distended, Normal bowel sounds. [...] (NOV 04) Radiology Results (Last 48 hours) [id number] -- 11/04/2019 21:19 CR Chest [address] [...]
--- OUTSIDE RECORDS SUMMARY | 2025-05-09 11:52 | XMS_ITS | Encounter Summary ---
Author Organization [employer] ([place], [place], [place], [place]) Address [address] [place] [address] Care Team Providers Care Service Vehicle Operator Name Role Phone Unavailable Primary Care Provider Unavailabl e Encounter Details Date Type Department Care Team (Late st Contact Info) Description 11/07/2019 Transcribed Document [facility] Family Medicine [address] [place] [address] ProviderPrasanth MD [address] [place] [address] Social History Tobacco Use Types Packs/Day Years Used Date Smoking Tobacco: Never Assessed Sex and Gender Information Value Date Recorded Sex Assigned at Not on file Legal Sex Male 6:49 PM CDT Gender Identity Not on file Sexual Orientation Not on file documented as of this encounter Miscellaneous Notes * Cerner Conversion Note - Historical ProviderMD - 11/07/2019 5:00 AM PLASTICS REPAIRER Chart Check - Review Order Profile Entered On: 11/07/2019 3:19 EST Performed On: 11/07/2019 5:00 EST by DESMOND CRUZ RN Chart Check Powerplans Initiated/Discontinued as Appropriate : Yes All Active Orders Reviewed : Yes DESMOND CRUZ RN - 11/07/2019 3:19 EST Electronically signed by Nikita [facility] Conversion Liner Machine Operator Cerner at 01/26/2023 9:09 PM CDT documented in this encounter Plan of Treatment Not on file documented as of this encounter Visit Diagnoses Not on filedocumented in this encounter
--- OUTSIDE RECORDS SUMMARY | 2025-05-09 11:52 | XMS_ITS | Encounter Summary ---
Author Organization [employer] ([place], [place], [place], [place]) Address [address] [place] [address] Care Team Providers Care Fiber Machine Tender Name Role Phone Unavailable Primary Care Provider Unavailabl e Encounter Details Date Type Department Care Team (Late st Contact Info) Description 12/03/2019 Transcribed Document [facility] [place] [address] [place] [address] ProviderPrasanth MD [address] [place] [address] Social History Tobacco Use Types Packs/Day Years Used Date Smoking Tobacco: Never Assessed Sex and Gender Information Value Date Recorded Sex Assigned at Not on file Legal Sex Male 6:49 PM CDT Gender Identity Not on file Sexual Orientation Not on file documented as of this encounter Miscellaneous Notes * Cerner Conversion Note - Historical ProviderMD - 12/03/2019 11:24 AM HAND PLATE STACKER Nursing Discharge Summary Entered On: 12/03/2019 11:24 EST Performed On: 12/03/2019 11:24 EST by AUSTIN FOFANA, chiller technician Documentation Discharge Date/Time : 12/03/2019 12:26 EST [...] 12/03/2019 11:24 EST Electronically signed by Nikita [facility] Conversion Mammalogist Cerner at 01/26/2023 9:08 PM CDT documented in this encounter Plan of Treatment Not on file documented as of this encounter Visit Diagnoses Not on filedocumented in this encounter
--- OUTSIDE RECORDS SUMMARY | 2025-05-09 11:52 | XMS_ITS | Encounter Summary ---
Author Organization [employer] ([place], [place], [place], [place]) Address [address] [place] [address] Care Team Providers Care Oil Dipper Name Role Phone Unavailable Primary Care Provider Unavailabl e Encounter Details Date Type Department Care Team (Late st Contact Info) Description 12/30/2020 Transcribed Document [facility] Family Medicine [address] [place] [address] ProviderPrasanth MD [address] [place] [address] Social History Tobacco Use Types Packs/Day Years Used Date Smoking Tobacco: Never Assessed Sex and Gender Information Value Date Recorded Sex Assigned at Not on file Legal Sex Male 6:49 PM CDT Gender Identity Not on file Sexual Orientation Not on file documented as of this encounter Miscellaneous Notes * Cerner Conversion Note - Prasanth Sanchez MD - 12/30/2020 11:43 AM CDT [facility] [place] [address] ALEXANDREFei SHIRA HORACIO :1935 Visit Time:12/30/2020 Your Visit Summary [...] 10:15 AM EDT Where: [address] [place] [address]- Medications What How Much When Instructions Next [...] diabetes medicines or blood thinners. ? Taking capc-taz-fuqqfrv medicines, vitamins, herbs, and supplements. ? Taking [...] provider. Document Revised: 06/15/2019 Document Reviewed: 12/28/2017 [employer] Patient Education ?? 2020 [employer] Moderate Conscious Sedation, Adult, Care After [...] you are awake and alert. ??? Take hdzn-hiv-qcdsjjc and prescription medicines only as told by [...] provider. Document Revised: 09/08/2018 Document Reviewed: 01/15/2017 [employer] Patient Education ?? 2020 [employer] FAQ ??? Patient COVID-19 testing Why [...] all positive cases are reported through the [facility] health department and the [place] Department for Public [facility]. Those organizations are [...] and need to call 911, notify the wet milling wheel operator that you have, or think you [...] clean your hands with an alcohol-based hand oracle sql developer that contains at least 60% alcohol. Clean your hands often. ??? Wash hands: Wash your hands often with soap and water for at least 20 seconds when visibly dirty. This is especially important after blowing your nose, coughing or sneezing, and going to the bathroom, and before eating or preparing food. ??? Hand oracle sql developer: Use an alcohol-based hand oracle sql developer with at least 60% alcohol, covering all [...] and water or put them in the cad engineer. Clean all high-touch surfaces every day. Clean [...] or body fluids on them. ??? Household tracer bullet section supervisor and disinfectants: Clean the area or item [...] list of disinfectants can be found here: https://www.epa.gov/pesticide-registration/scaw-x-xlhupvcdzcmyp-ppt-ruonzeq-et rs-cov-2 Emergency Awareness and Preventative Care STROKE [...] Assistance with quitting is available by contacting 9-131-DBIP-NOW. This is a free resource providing counseling, [...] was given the opportunity to ask questions. Patient/Hand Patcher Name: Patient/Hand Patcher Signature: Relationship to Patient: Clinician/Hospital Hand Patcher Signature: Date: Electronically signed by Nikita, Filiberto Conversion Obstetrics And Gynecology Professor Richard at 01/26/2023 9:07 PM CDT documented in this encounter Plan of Treatment Not on file documented as of this encounter Visit Diagnoses Not on filedocumented in this encounter
--- OUTSIDE RECORDS SUMMARY | 2025-05-09 11:52 | XMS_ITS | Encounter Summary ---
Author Organization [employer] ([place], [place], [place], [place]) Address [address] [place] [address] Care Team Providers Care Slug Press Operator Name Role Phone Unavailable Primary Care Provider Unavailabl e Encounter Details Date Type Department Care Team (Late st Contact Info) Description 06/04/2021 Transcribed Document [facility] [place] Family Medicine [address] [place] [address] ProviderPrasanth MD [address] [place] [address] Social History Tobacco Use Types [...] Sanchez MD - 06/04/2021 11:25 AM CDT [facility] [place] [address] KAYLA SHIRA HORACIO :1935 Visit Time:06/02/2021 Your Visit Summary [...] discharge instructions with you Where: [address] [place] [address]- Follow Up with ABEBA HOOKS When 06/08/2021 03:15 PM EDT Comments Appointment has been made Where: [address] [email or web address] [address] [place] [address]- Business (1) Medications What How Much When Instructions Next Dose apixaban (Eliquis 5 mg oral tablet) 1 Tablet(s) Oral Interval Every 12 Hours Pickup at [facility] [place] this evening aspirin (aspirin 81 mg oral tablet, chewable) 1 Tablet(s) Oral Every Day Pickup at [facility] tomorrow atorvastatin (Lipitor 20 mg oral tablet) 1 Tablet(s) Oral At Bedtime Duration: 30 Day(s) Please Note: Your Lipitor dose has changed to 20 mg oral at bedtime Pickup at [facility] [place] at bedtime metoprolol (Metoprolol Succinate ER 25 mg oral tablet, extended release) 1 Tablet(s) Oral Every Day tomorrow hydrochlorothiazide-lisinopril (hydroCHLOROthiazide-lisinopril 12.5 mg-20 mg oral tablet) 1 Tablet(s) Oral Every Day tomorrow multivitamin 1 Tablet(s) Oral Every Day tomorrow Pharmacy Information [facility] [place]: [address] [place], [place] [id number] [phone] Take your medications faithfully. Do NOT skip [...] blood clot. Taking other medicines ??? Take iqjs-npz-bxfkuje and prescriptions medicines only as told by your health care provider. ??? Do not take mlin-xpj-vabadtr NSAIDs, including aspirin and ibuprofen, while you [...] use toothpicks. ??? Use a soft-bristled toothbrush. [place] your teeth gently. ??? Always wear shoes [...] you: ??? Work with a diet and employee communications specialist (dietitian) to make an eating plan. [...] provider. Document Revised: 01/16/2020 Document Reviewed: 12/13/[address] [employer] Patient Education ?? [address] [employer] Transient Ischemic Attack A transient ischemic attack [...] these instructions at home: Medicines ??? Take mcnm-azf-clwiyjl and prescription medicines only as told by [...] provider. Document Revised: 06/22/2019 Document Reviewed: 12/28/[address] [employer] Patient Education ?? 2020 [employer] Heart Attack A heart attack occurs when [...] these instructions at home: Medicines ??? Take cclg-atb-oomecrv and prescription medicines only as told by [...] provider. Document Revised: 01/07/2020 Document Reviewed: 01/07/2020 [employer] Patient Education ?? [address] [employer] Coronary Artery Disease, Male Coronary artery [...] these instructions at home: Medicines ??? Take hqhb-msi-uzcvibj and prescription medicines only as told by [...] provider. Document Revised: 06/15/2019 Document Reviewed: 06/05/2019 [employer] Patient Education ?? 2020 [employer] Venous Thromboembolism Prevention Venous thromboembolism (VTE) is [...] for Disease Control and Prevention: www.cdc.gov ??? [place] Heart Association: www.heart.org Get help right away [...] provider. Document Revised: 01/15/2020 Document Reviewed: 12/04/[address] [employer] Patient Education ?? 2020 [employer] aspirin (oral) ( pir in) Arthritis Pain, Aspi-Cor, Aspir-Low, Israel Plus, Durlaza, Ecotrin, Miniprin, Vazalore What is the most important information I should know about aspirin? Aspirin can cause Ladan's syndrome, a serious and sometimes fatal condition in children. What is aspirin? Aspirin is a salicylate (ql-RYI-gk-ate) that is used to treat pain, and [...] may report side effects to FDA at 7-133-GIA-4986. What other drugs will affect aspirin? Ask [...] drugs may affect aspirin, including prescription and zdzb-gzl-ovpsuiu medicines, vitamins, and herbal products. Not all [...] to ensure that the information provided by [employer]. ('[employer]') is accurate, up-to-date, and complete, but no guarantee is made to that effect. Drug information contained herein may be time sensitive. [facility] information has been compiled for use by healthcare practitioners and consumers in the [place] and therefore [facility] does not warrant that uses outside of the [place] are appropriate, unless specifically indicated otherwise. [employer] drug information does not endorse drugs, diagnose patients or recommend therapy. [employer] drug information is an informational resource designed [...] effective or appropriate for any given patient. [facility] does not assume any responsibility for any aspect of healthcare administered with the aid of information [facility] provides. The information contained herein is not intended to cover all possible uses, directions, precautions, warnings, drug interactions, allergic reactions, or adverse effects. If you have questions about the drugs you are taking, check with your doctor, nurse or pharmacist. Copyright 8067-2595 [employer]. Version: 16.03. Revision Date: 04/06/2021. atorvastatin (a [...] may report side effects to FDA at 3-090-UGK-0284. What other drugs will affect atorvastatin? Certain [...] may affect atorvastatin. This includes prescription and wmcl-nyz-nyvgywy medicines, vitamins, and herbal products. Not all [...] to ensure that the information provided by [employer]. ('[employer]') is accurate, up-to-date, and complete, but no guarantee is made to that effect. Drug information contained herein may be time sensitive. [facility] information has been compiled for use by healthcare practitioners and consumers in the [place] and therefore [facility] does not warrant that uses outside of the [place] are appropriate, unless specifically indicated otherwise. [facility]'s drug information does not endorse drugs, diagnose patients or recommend therapy. [employer] drug information is an informational resource designed [...] effective or appropriate for any given patient. [facility] does not assume any responsibility for any aspect of healthcare administered with the aid of information [facility] provides. The information contained herein is not intended to cover all possible uses, directions, precautions, warnings, drug interactions, allergic reactions, or adverse effects. If you have questions about the drugs you are taking, check with your doctor, nurse or pharmacist. Copyright 2289-8733 [email or web address]. Version: 22.02. Revision Date: 11/18/2020. apixaban (a PIX a ban) Merissa What is the most important information I should know about apixaban? Apixaban increases your risk of severe or fatal bleeding, especially if you take certain medicines at the same time (including some ldib-uak-xhxvxss medicines). It is very important to tell [...]
--- OUTSIDE RECORDS SUMMARY | 2025-05-09 11:52 | XMS_ITS | Encounter Summary ---
Author Organization [employer] ([place], [place], [place], [place]) Address [address] [place] [address] Care Team Providers Care Aggregate Conveyor Operator Name Role Phone Unavailable Primary Care Provider Unavailabl e Encounter Details Date Type Department Care Team (Late st Contact Info) Description 08/06/2020 Transcribed Document [facility] [address] [place] [address] ProviderPrasanth MD [address] [place] [address] Social History Tobacco Use Types [...]
--- OUTSIDE RECORDS SUMMARY | 2025-05-09 11:52 | XMS_ITS | Encounter Summary ---
Author Organization [employer] ([place], [place], [place], [place]) Address [address] [place] [address] Care Team Providers Care Steward/Stewardess Room Name Role Phone Unavailable Primary Care Provider Unavailabl e Encounter Details Date Type Department Care Team (Late st Contact Info) Description 11/07/2019 Transcribed Document [facility] [place] [address] [place] [address] ProviderPrasanth MD [address] [place] [address] Social History Tobacco Use Types Packs/Day Years Used Date Smoking Tobacco: Never Assessed Sex and Gender Information Value Date Recorded Sex Assigned at Not on file Legal Sex Male 6:49 PM CDT Gender Identity Not on file Sexual Orientation Not on file documented as of this encounter Miscellaneous Notes * [employer] Conversion Note - Historical ProviderMD - 11/07/2019 3:18 AM PHILOSOPHY FACULTY Height and Weight, Routine Entered On: 11/07/2019 3:18 EST Performed On: 11/07/2019 3:18 EST by Sal Hurt, Crossband LayerHealth Unit Coord Height and Weight, Routine Routine Weight Source : Bed scale Routine Weight Entry Format : Metric Routine Weight, Kilograms : 89.7 kg(Converted to: 197 lb 12 oz) Routine Weight Calculation : 89.7 kg Height Source : Stated Height Entry Format : [place] Height, Feet : 5 ft Height, Inches : 9 Inch Clinical Height : 175.26 cm Body Surface Area (BSA), Routine : 2.06 m2 Body Mass Index (BMI), Routine : 29.2 kg/m2 Sal Hurt, Crossband Layer-Health Unit Coord - 11/07/2019 3:18 EST documented in this encounter Plan of Treatment Not on file documented as of this encounter Visit Diagnoses Not on filedocumented in this encounter
--- OUTSIDE RECORDS SUMMARY | 2025-05-09 11:52 | XMS_ITS | Encounter Summary ---
Author Organization [email or web address] ([place], [place], [place], [place]) Address [address] [place] [address] Care Team Providers Care Sales Program Manager Name Role Phone Unavailable Primary Care Provider Unavailabl e Encounter Details Date Type Department Care Team (Late st Contact Info) Description 10/29/2019 Transcribed Document [facility] Family Medicine [address] [place] [address] ProviderPrasanth MD [address] [place] [address] Social History Tobacco Use Types Packs/Day Years Used Date Smoking Tobacco: Never Assessed Sex and Gender Information Value Date Recorded Sex Assigned at Not on file Legal Sex Male 6:49 PM CDT Gender Identity Not on file Sexual Orientation Not on file documented as of this encounter Miscellaneous Notes * Cerner Conversion Note - Prasanth ProviderMD - 10/29/2019 7:03 AM PAYROLL BENEFITS ADMINISTRATOR Admission History, Adult Entered On: 10/29/2019 12:13 EST Performed On: 10/29/2019 12:03 EST by Rosalee Barrios RN Advance Directive Patient has Advance Directive *Q : Yes, Advance Directive on file Request Family/Rep to Provide Copy of AD : Yes Advance Directive Type : Living will Copy Advance Directive Verified/on Chart : No Rosalee aBrrios RN - 10/29/2019 12:03 EST Anesthesia/Transfusion History [...] Ambulatory Legal Guardian : No Support Person/Patient Infection Control Practitioner : Yes Support Person/Pt Rep Name : Rosa Elena Cormier- spouse Support Person/Pt Rep Contact Information : [phone] home Want Family/Rep/Phys Notified of Admit : No Emergency Contact #1 : Rosa Elena Cormier Emergency Contact #1 Emergency Contact #1 Relationship : Emergency Contact #2 : na Emergency Contact #2 Phone Number : na Emergency Contact #2 Relationship : na Information Obtained From : Patient Primary Language : Yakut Preferred Communication Mode : Verbal Communication Barrier [...] Scale Risk Level : 0-24 Low Risk [place] Fall Interventions : Adequate lighting, Assistive devices [...] Source : Measured Height Entry Format : [place]a Height, Feet : 5 ft(Converted to: 152 cm, 60 Inch) Height, Inches : 9 Inch(Converted to: 0 ft 9 Inch, 22.86 cm) Clinical Height : 175.26 cm Weight Source : Standing scale Weight Entry Format : Minerva Clinical Dosing Weight : 92.5 kg Weight, Pounds : 203 lb Weight, Ounces : 8 oz Body Surface Area (BSA) : 2.08 m2 Body Mass Index : 30.1 kg/m2 (HI) [place] Body Weight : 70 kg Rosalee Barrios [...] Rosalee Barrios RN - 10/29/2019 12:03 EST [place] Suicide Severity Rating Scale (C-SSRS) CSSRS Past [...] Rosalee Barrios RN - 10/29/2019 12:03 EST documented in this encounter Plan of Treatment Not on file documented as of this encounter Visit Diagnoses Not on filedocumented in this encounter
--- OUTSIDE RECORDS SUMMARY | 2025-05-09 11:53 | XMS_ITS | Encounter Summary ---
Author Organization [email or web address] ([place], [place], [place], [place]) Address [address] [place] [address] Care Team Providers Care Financial Coach Name Role Phone Unavailable Primary Care Provider Unavailabl e Encounter Details Date Type Department Care Team (Late st Contact Info) Description 12/03/2019 Transcribed Document [facility] [place] Family Medicine [address] [place] [address] ProviderPrasanth MD [address] [place] [address] Social History Tobacco Use Types Packs/Day Years Used Date Smoking Tobacco: Never Assessed Sex and Gender Information Value Date Recorded Sex Assigned at Not on file Legal Sex Male 6:49 PM CDT Gender Identity Not on file Sexual Orientation Not on file documented as of this encounter Miscellaneous Notes * [employer]ner Conversion Note - Historical ProviderMD - 12/03/2019 11:15 AM ACCOUNTING RECONCILIATION CLERK Event Note Entered On: 12/03/2019 11:17 EST Performed On: 12/03/2019 11:15 EST by AUSTIN FOFANA, RN Event Note Event Date/Time : 12/03/2019 11:05 EST Description of Event : pt received back to unit from procedure lab, s/p VITOR, anne within reach, family at bedside , VSS AUSTIN FOFANA, RN - 12/03/2019 11:15 EST Electronically signed by Nikita [facility] Conversion Director Of Sales Cerner at 01/26/2023 9:08 PM CDT documented in this encounter Plan of Treatment Not on file documented as of this encounter Visit Diagnoses Not on filedocumented in this encounter
--- OUTSIDE RECORDS SUMMARY | 2025-05-09 11:53 | XMS_ITS | Encounter Summary ---
Author Organization [employer] ([place], [place], [place], [place]) Address [address] [place] [address] Care Team Providers Care Oil Well Logging Engineer Name Role Phone Unavailable Primary Care Provider Unavailabl e Encounter Details Date Type Department Care Team (Late st Contact Info) Description 06/02/2021 Transcribed Document [facility] [place] [address] [place] [address] ProviderPrasanth MD [facility] [place] [address] Social History Tobacco Use Types Packs/Day Years Used Date Smoking Tobacco: Never Assessed Sex and Gender Information Value Date Recorded Sex Assigned at Not on file Legal Sex Male 6:49 PM CDT Gender Identity Not on file Sexual Orientation Not on file documented as of this encounter Miscellaneous Notes * Cerner Conversion Note - Prasanth Sanchez MD - 06/02/2021 3:13 PM CDT Swallow Evaluation Entered On: 06/02/2021 15:20 EDT Performed On: 06/02/2021 15:14 EDT by ADRIÁN LUO, BURNER MACHINE OPERATOR General Information Visit Type, BURNER MACHINE OPERATOR : Initial evaluation Patient Orders : Speech Language Pathology Swallow Evaluation and Treatment -111 Start: 06/02/21 15:13:00 EDT, Routine, For Swallow Eval and Treat - CJ AVITIA MD-INT Speech Language Pathology Evaluation and Treatment - Start: 06/02/21 12:40:00 EDT, Routine, For Speech Language Cognitive Eval and Treat -111 CJ AVITIA MD-INT Admission Date : Admission Date/Time: 06/02/21 12:02:00 Medical Chart Reviewed, BURNER MACHINE OPERATOR : Yes Personal Devices : Personal Devices No Devices Recorded Assistive Devices : Assistive Devices No Devices Recorded Active Diagnoses : 06/02/2021 12:00 Chest pain 06/02/2021 12:00 Chest pain, unspecified 06/02/2021 12:00 Non-ST elevation (NSTEMI) myocardial infarction 06/02/2021 12:00 Other specified abnormalities of plasma proteins 06/02/2021 12:00 Transient cerebral ischemic attack, unspecified 06/02/2021 12:00 Weakness Therapy Diagnosis, BURNER MACHINE OPERATOR : Pt presents without overt oropharyngeal patterns. Recommendations: 1. Regular/thin 2. Medication per RN 3. NO further evaluation/tx for oropharyngeal dysphagia 4. BURNER MACHINE OPERATOR will f/u with a definitive neuro dx warranting further communication evaluation Previous Speech/Language Evaluations : No previous ST in EMR Previous Swallow Precautions : No previous ST in EMR Diet/Intake Prior to Current Admission : Regular/thin Diet/Intake During Current Admission : NPO Intubation Comment, BURNER MACHINE OPERATOR : n/a Vital Signs RTF : Vitals [...] 15:14 EDT General Status Patient Received Status, BURNER MACHINE OPERATOR : Sitting edge of bed Patient Left Status, BURNER MACHINE OPERATOR : Sitting edge of bed ADRIÁN LUO [...] Oral Mechanism for Daily Living : Intact BURNER MACHINE OPERATOR Cough : Strong Facial Appearance: : Symmetrical [...] A flutter, CAD, Aortic valve replacement, CABG, [place], HLD, HTN and subdural hematoma. BURNER MACHINE OPERATOR consulted for bedside dysphagia evaluation. Today, pt is alert and oriented x4. No overt communication deficits appreciated. Oral skills appear functional for swallowing. No overt pharyngeal patterns appreciated with any trialed consistency. Pt appears safe for a regular diet and thin liquids. Medication per RN. No further evaluation/tx for oropharyngeal dysphagia is indicated at this time. BURNER MACHINE OPERATOR will f/u with a definitive neuro dx [...] - 06/02/2021 15:14 EDT Therapy Indication Assessment BURNER MACHINE OPERATOR Indicated : No BURNER MACHINE OPERATOR Not Indicated : At prior level of function BURNER MACHINE OPERATOR Interdisciplinary Consultation Needs : No BURNER MACHINE OPERATOR Rehabilitation Potential : At prior level of function ADRIÁN LUO SLP - 06/02/2021 15:14 EDT Education Barriers To Learning : None evident Individuals Taught : Patient Readiness to Learn : Cooperative Readiness to Learn : Explanation ADRIÁN LUO SLP - 06/02/2021 15:14 EDT BURNER MACHINE OPERATOR Education Assessment Grid 1 Diet Recommendation : Verbalizes understanding Evaluation Results : Verbalizes understanding ADRIÁN LUO SLP - 06/02/2021 15:[address] [facility] Charges Evaluation Swallowing Function : 1 ADRIÁN LUO SLP - 06/02/2021 15:14 EDT Anticipated Discharge Needs, BURNER MACHINE OPERATOR Anticipated Discharge to : Home, independently Recommend Continued Therapy at Discharge : No ADRIÁN LUO SLP - 06/02/2021 15:14 EDT Electronically signed by Nikita [facility] Conversion Central Supply Technician Supervisor Cerner at 01/26/2023 8:54 PM CDT documented in this encounter Plan of Treatment Not on file documented as of this encounter Visit Diagnoses Not on filedocumented in this encounter
--- OUTSIDE RECORDS SUMMARY | 2025-05-09 11:53 | XMS_ITS | Encounter Summary ---
Author Organization [email or web address] ([place], [place], [place], [place]) Address [address] [place] [address] Care Team Providers Care Dental Practice Manager Name Role Phone Unavailable Primary Care Provider Unavailabl e Encounter Details Date Type Department Care Team (Late st Contact Info) Description 07/22/2020 Transcribed Document [facility] [place] Family Medicine [address] [place] [address] ProviderPrasanth MD [address] [place] [address] Social History Tobacco Use Types [...] Source : Measured Height Entry Format : [place] Height, Feet : 5 ft(Converted to: 152 cm, 60 Inch) Height, Inches : 10 Inch(Converted to: 0 ft 10 Inch, 25.40 cm) Clinical Height : 177.8 cm Weight Source : Standing scale Weight Entry Format : Yancey Clinical Dosing Weight : 90.91 kg Weight, Pounds : 200 lb Body Surface Area (BSA) : 2.09 m2 Body Mass Index : 28.8 kg/m2 (HI) [place] Body Weight : 72 kg SALLY BARNETT [...] SALLY BARNETT RN - 07/22/2020 9:18 EDT [place] Suicide Severity Rating Scale (C-SSRS) CSSRS Past [...] Spouse Legal Guardian : No Support Person/Patient Physical Metallurgist : Yes Support Person/Pt Rep Name : Rosa Elena Cormier- spouse Support Person/Pt Rep Contact Information : [phone] home Want Family/Rep/Phys Notified of Admit : No Emergency Contact #1 : Rosa Elena Emergency Contact #1 Emergency Contact #1 Relationship : spouse Emergency Contact #2 : none Emergency Contact #2 Phone Number : none Emergency Contact #2 Relationship : none Primary Language : Turkish Preferred Communication Mode : Verbal Communication Barrier : None Director Of Retention Needed : SALLY Lorenzo RN - 07/22/2020 [...] RN - 07/22/2020 9:18 EDT Vishnu Scale Vishnu Sensory Perception : [...] Scale Risk Level : 25-45 Medium Risk [place] Fall Interventions : Adequate lighting, Assistive devices [...]
--- OUTSIDE RECORDS SUMMARY | 2025-05-09 11:53 | XMS_ITS | Encounter Summary ---
Author Organization [employer] ([place], [place], [place], [place]) Address [address] [place] [address] Care Team Providers Care Substation Operator Name Role Phone Unavailable Primary Care Provider Unavailabl e Encounter Details Date Type Department Care Team (Late st Contact Info) Description 08/04/2020 Transcribed Document [facility] [place] Family Medicine [address] [place] [address] ProviderPrasanth MD [address] [place] [address] Social History Tobacco Use Types [...] Tish SOLIS on 4 IC. Transferred to [facility] via wheelchair with all belongngs. BRANDON ROE RN - 08/04/2020 19:59 EDT documented in this encounter Plan of Treatment Not on file documented as of this encounter Visit Diagnoses Not on filedocumented in this encounter
--- OUTSIDE RECORDS SUMMARY | 2025-05-09 11:53 | XMS_ITS | Encounter Summary ---
Author Organization [employer] ([place], [place], [place], [place]) Address [address] [place] [address] Care Team Providers Care Drying Room Operator Name Role Phone Unavailable Primary Care Provider Unavailabl e Encounter Details Date Type Department Care Team (Late st Contact Info) Description 06/02/2021 Transcribed Document [facility] [place] Family Medicine [address] [place] [address] ProviderPrasanth MD [address] [place] [address] Social History Tobacco Use Types Packs/Day Years Used Date Smoking Tobacco: Never Assessed Sex and Gender Information Value Date Recorded Sex Assigned at Not on file Legal Sex Male 6:49 PM CDT Gender Identity Not on file Sexual Orientation Not on file documented as of this encounter Miscellaneous Notes * [employer]ner Conversion Note - Historical ProviderMD - 06/02/2021 9:50 AM CDT [place] Suicide Severity Rating Scale (C-SSRS) Entered On: 06/02/2021 11:32 EDT Performed On: 06/02/2021 11:32 EDT by SULAIMAN FAULKNER RN [place] Suicide Severity Rating Scale (C-SSRS) CSSRS Past [...]
--- OUTSIDE RECORDS SUMMARY | 2025-05-09 11:53 | XMS_ITS | Encounter Summary ---
Author Organization [employer] ([place], [place], [place], [place]) Address [address] [place] [address] Care Team Providers Care Hat Conditioner Name Role Phone Unavailable Primary Care Provider Unavailabl e Encounter Details Date Type Department Care Team (Late st Contact Info) Description 12/03/2019 Transcribed Document [facility] [place] [address] [place] [address] ProviderPrasanth MD [address] [place] [address] Social History Tobacco Use Types Packs/Day Years Used Date Smoking Tobacco: Never Assessed Sex and Gender Information Value Date Recorded Sex Assigned at Not on file Legal Sex Male 6:49 PM CDT Gender Identity Not on file Sexual Orientation Not on file documented as of this encounter Miscellaneous Notes * Cerner Conversion Note - Prasanth Sanchez MD - 12/03/2019 11:25 AM CATH LAB MANAGER [facility] [place] [address] MIYA GARZAALD HORACIO :1935 Visit Time:12/03/2019 Your Visit Summary Your Care Team Admitting Physician - WINNIE AYALA MD-ANN MARIE Attending Physician - WINNIE AYALA MD-CAR Primary Care Physician - KARON MCWILLIAMS [...] F/U with Dr Hughes today(12/03) afternoon at [facility] Where: [address] [place] [address]- [facility] (1) Medications What How Much When Instructions [...] including vitamins, herbs, eye drops, creams, and xzls-scy-gzinepq medicines. ??? Any problems you or family [...] diabetes medicines or blood thinners. ? Taking bmsp-fot-xugegrv medicines, vitamins, herbs, and supplements. ? Taking [...] 12/17/2003 Document Revised: 12/23/2017 Document Reviewed: 12/23/2017 [employer] Interactive Patient Education ?? 2019 [employer] Moderate Conscious Sedation, Adult, Care After [...] you are awake and alert. ??? Take ispk-dbu-wymvejh and prescription medicines only as told by [...] 07/17/2014 Document Revised: 02/28/2017 Document Reviewed: 01/15/2017 [employer] Interactive Patient Education ?? 2019 [employer] Emergency Awareness and Preventative Care STROKE [...] Assistance with quitting is available by contacting 8-353-DVLZ-NOW. This is a free resource providing counseling, [...] was given the opportunity to ask questions. Patient/Reporting Coordinator Name: Patient/Reporting Coordinator Signature: Relationship to Patient: Clinician/Hospital Reporting Coordinator Signature: Date: documented in this encounter Plan of Treatment Not on file documented as of this encounter Visit Diagnoses Not on filedocumented in this encounter
--- OUTSIDE RECORDS SUMMARY | 2025-05-09 11:53 | XMS_ITS | Patient Health Record ---
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 (575348218403400) Coronary artery disease involving [place] coronary artery of [place] heart without angina pectoris (I25.10) Active confirmed Problem Iron deficiency anemia (68202940) Iron deficiency anemia, unspecified iron deficiency anemia type (D50.9) Active confirmed Problem Pure hypercholesterolemia (588686229) Pure hypercholesterolemia (E78.00) Active confirmed Problem History of heart valve repair with prosthesis (159212534763457) 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 Problem Primary hypertension (30926024) Primary hypertension (I10) Active confirmed Problem Chronic kidney disease stage 3A (disorder) (627615695) Stage 3a chronic kidney disease (CKD) (N18.31) Active confirmed Vital Signs Heart Rate 60 /min 12/13/2024 Blood pressure diastolic 60 mm Hg 12/13/2024 Height 69 in 12/13/2024 Blood pressure systolic 120 mm Hg 12/13/2024 Weight 202.2 lbs 12/13/2024 BMI 29.86 kg/m2 12/13/2024 Encounters Encounter Location Date Provider Diagnosis [facility] [address] [place] [facility], [facility] [address] [place], [place] [id number] 08/23/2024 Alexei [place] Acute UTI N39.0 and Intermittent diarrhea R19.7 [facility] [address] [facility] [address] [place], [place] [id number] 11/14/2024 Alexei [place] Encounter for immunization Z23 [facility] [address] [facility] [address] [place], [place] [id number] 12/13/2024 R Newton Thompson Aortic valve replace d Z95.2 ; Bleeding R58 and Supratherapeutic INR R79.1 [facility] [address] [facility] [address] [place], [place] [id number] 04/30/2025 R Newton Thompson Assessments Encounter Date Diagnosis (ICD Code) Assessment Notes Treatment Notes Treatment Clinical Notes Section Notes 12/13/2024 Bleeding (ICD-10 - R58) 12/13/2024 Aortic valve replaced (ICD-10 - Z95.2) 08/23/2024 Acute UTI (ICD-10 - N39.0) 08/23/2024 Intermittent diarrhea (ICD-10 - R19.7) 11/14/2024 Encounter for immunization (ICD-10 - Z23) 12/13/2024 Supratherapeutic INR (ICD-10 - R79.1) hold coumadin for 2 days then resume same dose. Keep f/u with Coumadin Clinic in 10 days Plan Of Treatment Pending Test Test Name Order Date H-Microalbumine/Creatinine 05/10/2023 Next Appt Details Provider Name:Alexei Vergara ry, 06/19/2025 11:00:00 AM, [address], [place], [place], [id number], Insurance Providers Payer Name Payer Address Payer Phone Subscriber Number Group Number Insured Name Patient Relationship to Insured Coverage Start Date Coverage End Date MEDICARE PART B [address] [address] [place] [address] [phone] [id number] SHIRA GARZA Self - patient is the insured [facility] [address] [place] [address] [phone] [id number] SHIRA GARZA Self - patient is the insured Medical (General) History Medical History History ICD Code Coronary Artery Disease Hypertension Hyperlipidemia Aortic Stenosis, s/p Tissue Valve [facility], 10/2019 Pacemaker Surgical History Surgery Date(Month/Year) Quintuple Bypass 2008 Hernia Repair Tissue Aortic Valve Replacement 2019 Wrist Hospitalization History Reason Date(Month/Year)
--- OUTSIDE RECORDS SUMMARY | 2025-05-09 11:53 | XMS_ITS | Encounter Summary ---
Author Organization [facility] ([place], [place], [place], [place]) Address [address] [place] [address] Care Team Providers Care Engine Repairer Production Name Role Phone Unavailable Primary Care Provider Unavailabl e Encounter Details Date Type Department Care Team (Late st Contact Info) Description 08/04/2020 Transcribed Document [facility] [place] Family Medicine [address] [place] [address] ProviderPrasanth [place] [address] Social History Tobacco Use Types [...] History of Anesthesia Reaction : None Tish Calvillo Rn - 08/04/2020 20:32 EDT Functional Assessment [...] EMS Legal Guardian : No Support Person/Patient Steel Rigger : Yes Support Person/Pt Rep Name : Rosa Elena Cormier- spouse Support Person/Pt Rep Contact Information : [phone] home Want Family/Rep/Phys Notified of Admit : No Emergency Contact #1 : Rosa Elena Emergency Contact #1 Emergency Contact #1 Relationship : spouse Emergency Contact #2 : n/a Emergency Contact #2 Phone Number : n/a Emergency Contact #2 Relationship : n/a Chief Complaint : Tele hold Information Obtained From : Patient Primary Language : Albanian Preferred Communication Mode : Verbal Communication Barrier : None Lead Network Engineer Needed : No Tish Calvillo Rn - [...] Scale Risk Level : 25-45 Medium Risk [place] Fall Interventions : Adequate lighting Barriers to [...] Source : Stated Height Entry Format : [place] Height, Feet : 5 ft(Converted to: 152 cm, 60 Inch) Height, Inches : 9 Inch(Converted to: 0 ft 9 Inch, 22.86 cm) Clinical Height : 175.26 cm Weight Source : Standing scale Weight Entry Format : [place] Clinical Dosing Weight : 88.64 kg Weight, Pounds : 195 lb Body Surface Area (BSA) : 2.05 m2 Body Mass Index : 28.9 kg/m2 (HI) [place] Body Weight : 70 kg Tish Calvillo [...] Tish Calvillo Rn - 08/04/2020 20:32 EDT Conrad Suicide Severity Rating Scale (C-SSRS) CSSRS Past [...] Tish Calvillo Rn - 08/04/2020 20:32 EDT documented in this encounter Plan of Treatment Not on file documented as of this encounter Visit Diagnoses Not on filedocumented in this encounter
--- OUTSIDE RECORDS SUMMARY | 2025-05-09 11:53 | XMS_ITS | Encounter Summary ---
Author Organization [employer] ([place], [place], [place], [place]) Address [address] [place] [address] Care Team Providers Care Land Law Examiner Name Role Phone Unavailable Primary Care Provider Sharif e Encounter Details Date Type Department Care Team (Late st Contact Info) Description 06/02/2021 Transcribed Document [facility] [place] Family Medicine [facility] [place] [address] ProviderPrasanth MD [place] [address] Social History Tobacco Use Types [...] CARRANZA RN [employer] pulse generator model [id number], serial #[id number] CABG x5 on 05/29/2008 at 72 Years. [...] EDT Height Source Stated Height Entry Format [place]isk Height/Length, EGYPTIAN (ft) 5 ft Height/Length EGYPTIAN 9 Inch CLINICALHEIGHT 175.26 cm [place] Body Weight 69.73 kg Weight Source, ED Standing scale Weight Entry Format Fisk Weight Dominican lb 198.4 lb CLINICALWEIGHT 90.18 kg Body [...] infection, cerebral vascular accident, transient ischemic attack, [place].. Documents reviewed: Emergency department nurses' notes. Orders [...] Color Yellow Urine Appearance Clear Urine Specific Driscoll 1.020 Urine pH Dipstick *5.0 Urine Leukocyte [...] % 26.0 % Lymph # 1.59 K/uL Hood % 10.6 % Hood # 0.65 K/uL Eos % 0.5 % Eos # 0.03 Baso % 0.2 % Baso # 0.01 Slide Review No . Chest X-Ray: No infiltrate; no pneumothorax; normal mediastinum; no bony abnormality. Sternotomy wires and pacemaker. Per EDMD. . Radiology results: Radiology Results (Last 48 hours) [id number] -- 06/02/2021 09:50 CT Head WO (06/02/2021 [...] Calls-Consults - 06/02/2021 11:34:00 , [facility] - 06/02/2021 [...] plan.. Notes: I certify that the physician circulation assistant performed the services as delegated. This note has been prepared with the use of voice recognition software and may contain sound alike errors and omissions.. documented in this encounter Plan of Treatment Not on file documented as of this encounter Visit Diagnoses Not on filedocumented in this encounter
--- OUTSIDE RECORDS SUMMARY | 2025-05-09 11:53 | XMS_ITS | Encounter Summary ---
Author Organization [employer] ([place], [place], [place], [place]) Address [address] [place] [address] Care Team Providers Care Sandwich Artist Name Role Phone Unavailable Primary Care Provider Unavailabl e Encounter Details Date Type Department Care Team (Late st Contact Info) Description 07/22/2020 Transcribed Document [facility] [place] Medicine [address] [place] [address] ProviderPrasanth MD [address] [place] [address] Social History Tobacco Use Types Packs/Day Years Used Date Smoking Tobacco: Never Assessed Sex and Gender Information Value Date Recorded Sex Assigned at Not on file Legal Sex Male 6:49 PM CDT Gender Identity Not on file Sexual Orientation Not on file documented as of this encounter Miscellaneous Notes * Cerner Conversion Note - Prasanth Sanchez MD - 07/22/2020 12:13 PM CDT [facility] [place] [address] KAYLA SHIRA HORACIO :1935 Visit Time:07/22/2020 Your [...] From Your Care Team no driving today. citrus picker prescription and start Coumadin according to directions. [facility] to monitor Coumadin labs and dose Follow-Up Appointments Follow Up with LACIE ALVA When 08/21/2020 11:15 AM EST Comments Appointment has been made Where: [address] [place] [address]- [facility] (1) Medications What How Much When Instructions Next Dose warfarin (warfarin 5 mg oral tablet) 1 Tablet(s) Oral Every Day Refills: 6 dose to be adjusted Pickup at [facility] aspirin 81 Milligram(s) Every Day atorvastatin (atorvastatin 20 mg oral tablet) 1 Tablet(s) Oral Tuesday lisinopril 20 Milligram(s) Oral Every Day multivitamin 1 Tablet(s) Oral Every Day Pharmacy Information [facility]: [address] [address] [phone] Start Coumadin tonight Take your medications faithfully. [...] other medicines or supplements? Many prescription and ylgf-oxr-bmedqcc medicines can interfere with warfarin. Talk with your health care provider or your pharmacist before starting or stopping any new medicines. This includes qvgf-wyu-pawnsey vitamins, dietary supplements, herbal medicines, and pain medicines. Your warfarin dosage may need to be adjusted. ??? Some common ziav-wni-gpgznfi medicines that may increase the risk of [...] you work with a diet and nutrition teacher (dietitian). ??? Vitamin K decreases the effect [...] cooked. ??? Collards, raw or cooked. ??? Colombian chard, raw or cooked. ??? Mustard greens, raw or cooked. ??? Turnip greens, raw or cooked. ??? Parsley, raw. ??? Broccoli, cooked. ??? Noodles, eggs, and spinach, enriched. ??? [place] sprouts, raw or cooked. ??? Beet greens, [...] diet. ??? You start or stop any emwf-zyp-wcwvtwy medicine, prescription medicine, or dietary supplement. ??? [...] 09/26/2006 Document Revised: 05/09/2018 Document Reviewed: 12/22/2016 [employer] Patient Education ?? 2020 [employer]. Moderate Conscious Sedation, Adult, Care After [...] you are awake and alert. ??? Take ckaq-bxw-anrabcn and prescription medicines only as told by [...] Reviewed: 01/15/2017 Elsevier Patient Education ?? 2020 [employer] Inc. Transesophageal Echocardiogram Transesophageal echocardiogram (VITOR) is [...] including vitamins, herbs, eye drops, creams, and slzb-kqy-hrgbkdm medicines. ??? Any problems you or family [...] diabetes medicines or blood thinners. ? Taking fvdy-yad-nddkgcr medicines, vitamins, herbs, and supplements. ? Taking [...] 12/17/2003 Document Revised: 03/07/2018 Document Reviewed: 12/23/2017 [employer] Patient Education ?? 2020 [email or web address]. Emergency Awareness and Preventative Care STROKE is [...] Assistance with quitting is available by contacting 5-777-GXAT-NOW. This is a free resource providing counseling, [...] was given the opportunity to ask questions. Patient/Family Services Assistant Name: Patient/Family Services Assistant Signature: Relationship to Patient: Clinician/Hospital Family Services Assistant Signature: Date: documented in this encounter Plan of Treatment Not on file documented as of this encounter Visit Diagnoses Not on filedocumented in this encounter
--- OUTSIDE RECORDS SUMMARY | 2025-05-09 11:53 | XMS_ITS | Encounter Summary ---
Author Organization [employer] ([place], [place], [place], [place]) Address [address] [place] [address] Care Team Providers Care Renewals Manager Name Role Phone Unavailable Primary Care Provider Unavailabl e Encounter Details Date Type Department Care Team (Late st Contact Info) Description 08/04/2020 Transcribed Document [facility] [place] [address] [place] [address] ProviderPrasanth MD [address] [place] [address] Social History Tobacco Use [...] of Event : Ar[facility] per stret[facility] from [facility] awake and alert, skin w/d, no c/o. Denies any CP. SR heart monitor. WALTER POWELL RN - 08/04/2020 13:26 EDT documented in this encounter Plan of Treatment Not on file documented as of this encounter Visit Diagnoses Not on filedocumented in this encounter
--- OUTSIDE RECORDS SUMMARY | 2025-05-09 11:53 | XMS_ITS | Encounter Summary ---
Author Organization [employer] ([place], [place], [place], [place]) Address [address] [place] [address] Care Team Providers Care Identification Clerk Name Role Phone Unavailable Primary Care Provider Unavailabl e Encounter Details Date Type Department Care Team (Late st Contact Info) Description 06/02/2021 Transcribed Document [facility] [place] Medicine [facility] [place] [address] ProviderPrasanth MD [facility] [place] [address] Social History Tobacco Use Types [...] Communication Barrier : None Primary Language : Faroese Any Spiritual/Cultural Needs or Requests : No [...] (Last Updated: 10/26/2019 09:41:57 EST by HILDA ANTHONY, WILL) Cardiovascular ASMT, ED Cardiovascular Symptoms : None Heart Rhythm : Regular Nail Bed Color : [place] Chest Pain : No Capillary Refill, Left Hand : Less than/Equal to (</=) 2 seconds Capillary Refill, Right Hand : Less than/Equal to (</=) 2 seconds Clubbing Present : No SULAIMAN FAULKNER RN - 06/02/2021 11:32 EDT Respiratory Respiratory Assessment WDL : WDSULAIMAN WHITE RN - 06/02/2021 11:32 EDT documented in this encounter Plan of Treatment Not on file documented as of this encounter Visit Diagnoses Not on filedocumented in this encounter
--- OUTSIDE RECORDS SUMMARY | 2025-05-09 11:53 | XMS_ITS | Encounter Summary ---
Author Organization [employer] ([place], [place], [place], [place]) Address [address] [place] [address] Care Team Providers Care Strip Tank Tender Name Role Phone Unavailable Primary Care Provider Unavailabl e Encounter Details Date Type Department Care Team (Late st Contact Info) Description 06/02/2021 Transcribed Document [facility] [place] Family Medicine [facility] [place] [address] ProviderPrasanth MD [facility] [place] [address] Social History Tobacco Use Types [...] On: 06/02/2021 12:27 EDT by Chang Medrano Law Enforcement Director-Student Nurse Advance Directive Patient has Advance Directive *Q : Yes, Advance Directive on file Advance Directive Type : Living will Copy Advance Directive Verified/on Chart : No Chang Medrano Law Enforcement Director-Student Nurse - 06/02/2021 15:42 EDT Anesthesia/Transfusion History Family History of Anesthesia Reaction : No prior transfusion(s) Transfusion History : Prior anesthesia without reaction Family History of Anesthesia Reaction : None Chang Medrano Law Enforcement Director-Student Nurse - 06/02/2021 15:42 EDT Functional Assessment Living Situation : Home Patient Lives With : Spouse DEVINE Hx Falls Immediate/Within 3 Months : No Current Home Treatments : None Chang Medrano Law Enforcement Director-Student Nurse - 06/02/2021 15:42 EDT General Info Mode of Arrival on Unit : Ambulatory Legal Guardian : Spouse Legal Guardian : No Support Person/Patient A And P Technician : Yes Support Person/Pt Rep Name : Rosa Elena Bustamante- spouse Support Person/Pt Rep Contact Information : [phone] home Want Family/Rep/Phys Notified of Admit : No Emergency Contact #1 : Rosa Elena Bustamante Emergency Contact #1 Phone Number : [phone] Emergency Contact #1 Relationship : Emergency Contact #2 : na Emergency Contact #2 Phone Number : na Emergency Contact #2 Relationship : na Chief Complaint : Pt c/o episode of CP x 2 hours last night, new onset bialteral weakness R>L onset 2200 last night that resolved after 2 hours. Primary Language : Faroese Preferred Communication Mode : Verbal Communication Barrier : None Enzyme Chemist Needed : No Chang Medrano, Law Enforcement Director-Student Nurse - 06/02/2021 15:42 EDT Fall Risk [...] Scale Risk Level : 25-45 Medium Risk [place] Fall Interventions : Adequate lighting, Bed in low position, Hourly comfort/safety rounds, Non-slip footwear, Personal items within reach, Reinforced to call for assistance before getting out of bed, Room free of clutter/spills, Upper side-rails up, Wheels locked, Wires/Cords secured Barriers to Learning : None evident Fall Risk Scale Calc Temp : 0 Chang Medrano, Law Enforcement Director-Student Nurse - 06/02/2021 15:42 EDT Health Histories Smoking Status : Former smoker, quit more than 30 days ago Smokeless Tobacco Status : Never Chang Medrano Law Enforcement Director-Student Nurse - 06/02/2021 15:42 EDT Social History (As Of: 06/02/2021 15:49:03 EDT) Tobacco: Last Used: quit smoking 2007. (Last Updated: 12/03/2019 09:51:35 EST by UASTIN FOFANA, RN) Former smoker, quit more than [...] Source : Stated Height Entry Format : [place] Height, Feet : 5 ft(Converted to: 152 cm, 60 Inch) Height, Inches : 9 Inch(Converted to: 0 ft 9 Inch, 22.86 cm) Clinical Height : 175.26 cm Weight Source : Bed scale Weight Entry Format : [place] Clinical Dosing Weight : 89.14 kg Weight, Pounds : 196.1 lb Body Surface Area (BSA) : 2.05 m2 Body Mass Index : 29 kg/m2 (HI) [place] Body Weight : 70 kg Chang Medrano, Law Enforcement Director-Student Nurse - 06/02/2021 15:42 EDT Infectious Disease [...] Chicken pox/Shingles, Mumps Tuberculosis Symptoms : None hCang Medrano, Law Enforcement Director-Student Nurse - 06/02/2021 15:42 EDT Influenza Vaccine Asmt, Adult Previous Vaccines from Immunization Schedule : Previous Vaccines and Immunizations tetanus/diphtheria/pertussis, acel(Tdap): 0.5 mL (11/04/19 21:11:00) Influenza Immunization, Current Season : Outside of influenza season Chang Medrano Law Enforcement Director-Student Nurse - 06/02/2021 15:42 EDT Pneumococcal Vaccine Previous Vaccines from Immunization Schedule : Previous Vaccines and Immunizations tetanus/diphtheria/pertussis, acel(Tdap): 0.5 mL (11/04/19 21:11:00) Pneumonia Immunization Received : Yes Chang Medrano Law Enforcement Director-Student Nurse - 06/02/2021 15:42 EDT Order Details Order Detail : N/A Patient Needs Meds Crushed/Liquid : No Chang Medrano Law Enforcement Director-Student Nurse - 06/02/2021 15:42 EDT Nutrition History Adaptive Feeding Equipment : Regular Oral Medication Administration : By mouth Eating Poorly Due to Decreased Appetite : No Unplanned Weight Loss in Past 3-6 Months : No Malnutrition Screening Tool Total(mal) : 0 Malnutrition Screening Tool Risk Level : Patient not at risk Chang Medrano Law Enforcement Director-Student Nurse - 06/02/2021 15:42 EDT Mora Suicide Severity Rating Scale (C-SSRS) CSSRS Past Month Wish to be : No CSSRS Past Month Suicidal Thoughts : No CSSRS Lifetime Suicide Behavior : No Suicide Severity Rating Score : 0 Suicide Severity Rating : No Additional Care Required at this time Chang Medrano Law Enforcement Director-Student Nurse - 06/02/2021 15:42 EDT Psychosocial History Chronic/Terminal Illness w/Freq Visits : No Do You Have a History of the Following? : Patient denies history Currently in Unsafe Situation : No Chang Medrano Law Enforcement Director-Student Nurse - 06/02/2021 15:42 EDT Sleep Apnea [...] Sleep Apnea Risk Level Score : 3 Chang Medrano, Law Enforcement Director-Student Nurse - 06/02/2021 15:42 EDT Valuables and Belongings Valuables and Belongings : Clothing, Personal devices Clothing : Common streetwear Clothing Disposition : Bedside Personal Device Disposition : With patient Personal Devices : Glasses Chang Medrano, Law Enforcement Director-Student Nurse - 06/02/2021 15:42 EDT Electronically signed by [facility] Conversion Production Machine Shop Supervisor Cerner at 01/26/2023 8:56 PM CDT documented in this encounter Plan of Treatment Not on file documented as of this encounter Visit Diagnoses Not on filedocumented in this encounter
--- OUTSIDE RECORDS SUMMARY | 2025-05-09 11:53 | XMS_ITS | Encounter Summary ---
Author Organization [employer] ([place], [place], [place], [place]) Address [address] [place] [address] Care Team Providers Care Floor Coverings Salesperson Name Role Phone Unavailable Primary Care Provider Sharif e Encounter Details Date Type Department Care Team (Late st Contact Info) Description 06/02/2021 Transcribed Document [facility] [place] Family Medicine [address] [place] [address] ProviderPrasanth MD [address] [place] [address] Social History Tobacco Use Types [...] 85 yo male who was admitted to [facility] on 06/02 for chest pain, elevated troponin, NSTEMI, RLE weakness, and dysarthria. PMHx: aortic valve stenosis s/p replacement, Afib, CAD s/p CABG, CURY[place]G, HLD, HTN, pacemaker, and SDH. CTH: no acute abnormality BESS VINCENT OTR/Chio - 06/03/2021 13:07 EDT General Status Patient Received Status : Up in chair Treatment Start Time : 06/03/2021 11:37 EDT Patient Left Status : Up in chair, RN/PCT informed, All needs met and within reach RN/PCT Informed Comment : WILL Downing Treatment End Time : 06/03/2021 12:01 EDT Treatment Time : 24 Minute(s) BESS VINCENT OTR/Chio - 06/03/2021 13:07 EDT History and Environment, [...] Left UE Strength : WFL BESS VINCENT OTR/Chio - 06/03/2021 13:07 EDT Right Upper Extremity [...] RadialDeviation 0-20 : 5/normal BESS VINCENT OTR/Chio 06/03/2021 13:07 EDT Fine Motor Coordination Impaired : No Upper Extremity Comment : BUE ROM and MMT WFL BESS VINCENT OTR/Chio 06/03/2021 13:07 EDT Self Care/Home Management, OT [...] Bearing Status : Full BESS VINCENT OTR/Chio 06/03/2021 13:07 EDT Functional Mobility Mobility Grid Sit to Stand : Rehab Complete independence Stand to Sit : Rehab Complete independence BESS VINCENT OTR/L - 06/03/2021 13:07 EDT Sit to Stand Device : Belt, gait Stand to Sit Device : Belt, gait BESS VINCENT OTR/L - 06/03/2021 13:07 EDT Neurological/Sensory Overall Sensory Response : BESS Davenport, OTR/L - 06/03/2021 13:07 EDT Cognition Assessment, OT Orientation : Oriented x 4 Cognition Assessment, OT : Intact Comprehension Assessment, OT : Intact BESS VINCENT, OTR/L - 06/03/2021 13:07 EDT Visual/Perceptual/Vestibular, OT Vision Assessment, OT : BESS Davenport, OTR/L - 06/03/2021 13:07 EDT Education OT [...] Occupational Therapy Not Indicated : Independent BESS VINCENT OTR/L - 06/03/2021 13:07 EDT Plan of [...] BESS VINCENT OTR/L - 06/03/2021 13:[address] [facility] OT Charges OT Ther Activities Ea 15 Min : 1 OT Eval Moderate Complexity : 1 BESS VINCENT OTR/L - 06/03/2021 13:07 EDT documented in this encounter Plan of Treatment Not on file documented as of this encounter Visit Diagnoses Not on filedocumented in this encounter
--- OUTSIDE RECORDS SUMMARY | 2025-05-09 11:53 | XMS_ITS | Encounter Summary ---
Author Organization [employer] ([place], [place], [place], [place]) Address [address] [place] [address] Care Team Providers Care Social And Human Services Assistant Name Role Phone Unavailable Primary Care Provider Unavailabl e Encounter Details Date Type Department Care Team (Late st Contact Info) Description 06/02/2021 Transcribed Document [facility] [place] Family Medicine [address] [place] [address] ProviderPrasanth MD [address] [place] [address] Social History Tobacco Use Types Packs/Day Years Used Date Smoking Tobacco: Never Assessed Sex and Gender Information Value Date Recorded Sex Assigned at Not on file Legal Sex Male 6:49 PM CDT Gender Identity Not on file Sexual Orientation Not on file documented as of this encounter Miscellaneous Notes * Cerner Conversion Note - Historical ProviderMD - 06/02/2021 2:49 PM CDT SEAMLESS TUBE ROLLER Attempt to Treat Entered On: 06/02/2021 14:50 EDT Performed On: 06/02/2021 14:49 EDT by ADRIÁN LUO SLP Attempt to Treat Unable to Treat Due To : Patient Unavailable Inability to Treat Comment : Attempted to see pt for dysphagia evaluation, however he was off the floor. SEAMLESS TUBE ROLLER will f/u Tuesday. ADRIÁN LUO SLP - 06/02/2021 14:49 EDT documented in this encounter Plan of Treatment Not on file documented as of this encounter Visit Diagnoses Not on filedocumented in this encounter
--- OUTSIDE RECORDS SUMMARY | 2025-05-09 11:53 | XMS_ITS | Encounter Summary ---
Author Organization [employer] ([place], [place], [place], [place]) Address [address] [place] [address] Care Team Providers Care Filler In Name Role Phone Unavailable Primary Care Provider Unavailabl e Encounter Details Date Type Department Care Team (Late st Contact Info) Description 06/02/2021 Transcribed Document [facility] [place] [address] [place] [address] ProviderPrasanth MD [address] [place] [address] Social History Tobacco Use Types [...] On: 06/02/2021 12:40 EDT by Chang Medrano, Clinical Program Director-Student Nurse Teaching/Learning Assessment Individuals Taught : Patient Readiness to Learn : Cooperative Readiness to Learn : Explanation, Teach back method Learning Style Preferences Patient : Verbal explanation Chang Medrano, Clinical Program Director-Student Nurse - 06/02/2021 15:50 EDT Barriers To Learning : None evident Chang Medrano, Clinical Program Director-Student Nurse - 06/02/2021 15:49 EDT documented in this encounter Plan of Treatment Not on file documented as of this encounter Visit Diagnoses Not on filedocumented in this encounter
--- OUTSIDE RECORDS SUMMARY | 2025-05-09 11:53 | XMS_ITS | Encounter Summary ---
Author Organization [employer] ([place], [place], [place], [place]) Address [address] [place] [address] Care Team Providers Care Roll Up Operator Name Role Phone Unavailable Primary Care Provider Unavailabl e Encounter Details Date Type Department Care Team (Late st Contact Info) Description 06/02/2021 Transcribed Document [facility] [place] Family Medicine [address] [place] [address] ProviderPrasanth MD [address] [place] [address] Social History Tobacco Use Types Packs/Day Years Used Date Smoking Tobacco: Never Assessed Sex and Gender Information Value Date Recorded Sex Assigned at Not on file Legal Sex Male 6:49 PM CDT Gender Identity Not on file Sexual Orientation Not on file documented as of this encounter Miscellaneous Notes * Cerner Conversion Note - Prasanth ProviderMD - 06/02/2021 12:40 PM CDT Amanda Rubin Bedside Swallowing Screen Entered On: 06/02/2021 15:29 EDT Performed On: 06/02/2021 12:40 EDT by Chang Medrano, Iron Erector-Student Nurse Amanda Rubin Bedside Swallowing 2 Exhibits [...] 60 mL Water : No Chang Medrano, Iron Erector-Student Nurse - 06/02/2021 15:29 EDT Electronically signed by Nikita [facility] Conversion Particleboard Factory Worker Richard at 01/26/2023 8:59 PM CDT documented in this encounter Plan of Treatment Not on file documented as of this encounter Visit Diagnoses Not on filedocumented in this encounter
--- OUTSIDE RECORDS SUMMARY | 2025-05-09 11:53 | XMS_ITS | Encounter Summary ---
Author Organization [employer] ([place], [place], [place], [place]) Address [address] [place] [address] Care Team Providers Care Power Ballast Machine Operator Name Role Phone Unavailable Primary Care Provider Unavailabl e Encounter Details Date Type Department Care Team (Late st Contact Info) Description 07/22/[address] [facility] [place] Family Medicine [address] [place] [address] ProviderPrasanth MD [address] [place] [address] Social History Tobacco Use Types [...] On: 07/22/2020 11:08 EDT by SALLY BARNETT regional maintenance manager Documentation Discharge Date/Time : 07/22/2020 12:26 EDT [...] SALLY BARNETT RN - 07/22/2020 11:08 EDT documented in this encounter Plan of Treatment Not on file documented as of this encounter Visit Diagnoses Not on filedocumented in this encounter
--- OUTSIDE RECORDS SUMMARY | 2025-05-09 11:53 | XMS_ITS | Encounter Summary ---
Author Organization [employer] ([place], [place], [place], [place]) Address [address] [place] [address] Care Team Providers Care Professor Of Biostatistics Name Role Phone Unavailable Primary Care Provider Unavailabl e Encounter Details Date Type Department Care Team (Late st Contact Info) Description 06/02/2021 Transcribed Document [facility] [place] Family Medicine [address] [place] [address] ProviderPrasanth MD [address] [place] [address] Social History Tobacco Use Types [...]
[2025-05-09 12:29] LABS: INR 2.97 (0.9-1.1); Prothrombin Time 30.4 seconds (10.1-12.5)
== END 2025-05-09 23:59 | disposition home or self-care (01) ==
LOC: LAB 11:48
PROVIDERS: PCP Family Medicine; Visit Provider Internal Medicine
DX: Z79.01 Long term (current) use of anticoagulants (principal)
CPT/HCPCS: 36415; 85610

== ENCOUNTER 2025-06-06 11:37 | Outpatient (CLI) | payer MEDICARE, SELFPAY ==
--- OUTSIDE RECORDS SUMMARY | 2024-10-19 06:30 | XMS_ITS ---
Author Organization [facility] Address [facility] [facility] [address] [place] [phone] Care Team Providers Care Bean Snapper Name Role Phone Alexei Almodovar Primary Care Provider ALEXEI ALMODOVAR Unavailable Unavailable REASON FOR VISIT flu vaccine Encounters Encounter Location Date Provider Diagnosis [facility] [address] [place] [phone] 10/19/2024 Alexei Almodovar Plan Of Treatment Next Appt Details Provider Name:Alexei Vergara ry, 06/19/2025 11:00:00 AM, [address], [address], [place], [phone], Progress Notes * SHIRA GARZADOB:1935 ( 89 yo M)Acc No.[id number]:10/19/2024 Patient: SHIRA LYONS Provider: Florinda Almodovar M.D. :1935 A ge:89 Y S ex:Male Date:10/19/2024 Address:[address] [place], [place] [id number] Subjective: * Chief Complaints: * 1 . Flu vaccine. * Medical History: Objective: * Vitals: Assessment: Plan: * Treatment: * Images: Billing Information: * Visit Code: * Procedure Codes: * Electronic signature of Kia Almodovar MD on 06/06/2025 at 11:44 AM EDT Sign off status: Pending * Provider: Florinda Almodovar M.D. Date: 0 10/19/2024 Generated for Teodora rivera/Nita/Kaushikitting on: 0 06/06/2025 11:44 AM EDT
--- OUTSIDE RECORDS SUMMARY | 2024-11-14 06:45 | XMS_ITS ---
Author Organization Jose Address [facility] [facility] [address] [place] [phone] Care Team Providers Care Product Manager E Commerce Name Role Phone Alexei Almodovar Primary Care [...] Provider Diagnosis Jose [address] [facility] [address] [place] [phone] 11/14/2024 Alexei Almodovar Encounter for immunization Z23 Assessments Encounter Date Diagnosis (ICD Code) Assessment Notes Treatment Notes Treatment Clinical Notes Section Notes 11/14/2024 Encounter for immunization (ICD-10 - Z23) Plan Of Treatment Next Appt Details Provider Name:Alexei solo, 06/19/2025 11:00:00 AM, [address] [facility], [address], [place], [phone], Progress Notes * SYLVIE GARZA:1935 ( 89 yo M)Acc No.[id number]:11/14/2024 Patient: SHIRA LYONS Provider: Florinda Almodovar M.D. :1935 A ge:89 Y S ex:Male Date:11/14/2024 Address:[address] [place], [place] [address]Eddie Cox [id number] Subjective: * Chief Complaints: * 1 . [...] 11/14/2024 Generated for Teodora rivera/Nita/Charles on: 0 06/06/2025 11:44 AM EDT
--- OUTSIDE RECORDS SUMMARY | 2024-12-13 12:00 | XMS_ITS ---
Author Organization 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 :1935 A ge:89 Y S ex:Male Date:12/13/2024 Address:[address] [place] [address] [id number] Pcp:Alexei Almodovar Subjective: * Chief Complaints: * [...] age 85. Alcohol: no. 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 * Medications: T aking Aspirin 81 MG [...] G 2211 Complex e/[place], [address] [place], [address] PROTHROMBIN TIME, Modifiers: QW , 54834 CAPILLARY BLOOD DRAW, 86945 CBC WITH AUTO DIFF, 3074F SYST BP LT 130 MM HG, 3078F DIAST BP < 80 MM HG * Follow Up: w [facility] * Images: Billing Information: * Visit Code: 72892 Office Visit, Est Pt., Level 3. * Procedure Codes: G2211 Complex e/[place]. [address] [place]. [address] PROTHROMBIN TIME. Modifiers: QW 82060 CAPILLARY BLOOD DRAW. 51845 CBC WITH AUTO DIFF. 3074F SYST BP LT 130 MM HG. 3078F DIAST BP < 80 MM HG. * Electronic signature of Romana Thompson MD on 06/06/2025 at 11:41 AM EDT Sign off status: Pending * Provider: Romana Thompson M.D. Date: 0 12/13/2024 Generated for Teodora rivera/Nita/Kaushikitting on: 0 06/06/2025 11:41 AM EDT History and Physical Notes * HPI [...]
--- OUTSIDE RECORDS SUMMARY | 2025-06-06 11:40 | XMS_ITS | Encounter Summary ---
Author Organization [employer] ([place], [place], [place], [place]) Address [address] [place] [address] Care Team Providers Care Manager State Name Role Phone Unavailable Primary Care Provider Unavailabl e Encounter Details Date Type Department Care Team (Late st Contact Info) Description 11/05/2019 Transcribed Document [facility] [place] [address] [place] [address] ProviderPrasanth MD [address] [place] [address] Social History Tobacco Use Types Packs/Day Years Used Date Smoking Tobacco: Never Assessed Sex and Gender Information Value Date Recorded Sex Assigned at Not on file Legal Sex Male 6:49 PM CDT Gender Identity Not on file Sexual Orientation Not on file documented as of this encounter Miscellaneous Notes * Cerner Conversion Note - Historical ProviderMD - 11/05/2019 3:20 AM JIRA ADMINISTRATOR Height and Weight, Routine Entered On: 11/05/2019 3:21 EST Performed On: 11/05/2019 3:20 EST by Sal Hurt, Traffic Control FlaggerHealth Unit Coord Height and Weight, Routine Routine Weight Source : Bed scale Routine Weight Entry Format : Metric Routine Weight, Kilograms : 93.1 kg(Converted to: 205 lb 4 oz) Routine Weight Calculation : 93.1 kg Height Source : Stated Height Entry Format : [place] Height, Feet : 5 ft Height, Inches : 9 Inch Clinical Height : 175.26 cm Body Surface Area (BSA), Routine : 2.09 m2 Body Mass Index (BMI), Routine : 30.31 kg/m2 Sal Hurt, Traffic Control Flagger-Health Unit Coord - 11/05/2019 3:20 EST Electronically signed by Nikita [facility] Conversion Biology Laboratory Assistant Cerner at 01/26/2023 8:58 PM CDT documented in this encounter Plan of Treatment Not on file documented as of this encounter Visit Diagnoses Not on filedocumented in this encounter
--- OUTSIDE RECORDS SUMMARY | 2025-06-06 11:40 | XMS_ITS | Encounter Summary ---
Author Organization [employer] ([place], [place], [place], [place]) Address [address] [place] [address] Care Team Providers Care Housekeeping Room Attendant Name Role Phone Unavailable Primary Care Provider Unavailabl e Encounter Details Date Type Department Care Team (Late st Contact Info) Description 11/04/2019 Transcribed Document [facility] Neurology - [address] [facility] [address] [place] [address] Titus Rasheed Jr., MD [address] [place] [address] Social History Tobacco Use Types Packs/Day Years [...] acute subdural hematoma in the right posterior anglican area, just above the petrous bone. It [...] family was present when I saw him. /[id number] Titus Rasheed Jr, MD RDO/AQ / RDO / MODL /[id number] documented in this encounter Plan of Treatment Not on file documented as of this encounter Visit Diagnoses Not on filedocumented in this encounter
--- OUTSIDE RECORDS SUMMARY | 2025-06-06 11:40 | XMS_ITS | Encounter Summary ---
Author Organization [employer] ([place], [place], [place], [place]) Address [address] [place] [address] Care Team Providers Care Staffing Coordinator Name Role Phone Unavailable Primary Care Provider Unavailabl e Encounter Details Date Type Department Care Team (Late st Contact Info) Description 11/05/2019 Transcribed Document [facility] [place] Family Medicine [address] [place] [address] ProviderPrasanth MD [facility] [place] [address] Social History Tobacco Use Types Packs/Day Years Used Date Smoking Tobacco: Never Assessed Sex and Gender Information Value Date Recorded Sex Assigned at Not on file Legal Sex Male 6:49 PM CDT Gender Identity Not on file Sexual Orientation Not on file documented as of this encounter Miscellaneous Notes * Cerner Conversion Note - Prasanth ProviderMD - 11/05/2019 3:27 PM NEWS VIDEO EDITOR Treatment Intervention, PT Entered On: 11/07/2019 15:45 [...] demonstrated no lob and good endurance today JC WHEELER PTA - 11/07/2019 15:42 EST Plan of Care, PT PT Tx Plan/Goals Established w Patient : Yes PT Frequency Rehab : Daily CJ WHEELER PTA - 11/07/2019 15:42 EST [facility] Goals Mobility/Bed Mobility LTG PT [...] 11/07/2019 15:[address] [facility] PT Charges POND SAWYER PT Therap. Exercise 15 min-POND SAWYER : 1 CJ WHEELER PTA - 11/07/2019 15:42 EST Electronically signed by Nikita [facility] Conversion Control Systems Technician Cerner at 01/26/2023 9:10 PM CDT documented in this encounter Plan of Treatment Not on file documented as of this encounter Visit Diagnoses Not on filedocumented in this encounter
--- OUTSIDE RECORDS SUMMARY | 2025-06-06 11:40 | XMS_ITS | Encounter Summary ---
Author Organization [employer] ([place], [place], [place], [place]) Address [address] [place] [address] Care Team Providers Care Pin Inserter Name Role Phone Unavailable Primary Care Provider Unavailabl e Encounter Details Date Type Department Care Team (Late st Contact Info) Description 11/05/2019 Transcribed Document [facility] [place] Family Medicine [address] [place] [address] ProviderPrasanth MD [address] [place] [address] Social History Tobacco Use Types Packs/Day Years Used Date Smoking Tobacco: Never Assessed Sex and Gender Information Value Date Recorded Sex Assigned at Not on file Legal Sex Male 6:49 PM CDT Gender Identity Not on file Sexual Orientation Not on file documented as of this encounter Miscellaneous Notes * Cerner Conversion Note - Historical ProviderMD - 11/05/2019 2:00 AM ACUTE CARE REGISTERED NURSE Manager Of Tax Details Entered On: 11/05/2019 0:16 EST Performed [...]
--- OUTSIDE RECORDS SUMMARY | 2025-06-06 11:40 | XMS_ITS | Encounter Summary ---
Author Organization [employer] ([place], [place], [place], [place]) Address [address] [place] [address] Care Team Providers Care Acoustical Tile Drill Press Operator Name Role Phone Unavailable Primary Care Provider Unavailabl e Encounter Details Date Type Department Care Team (Late st Contact Info) Description 09/25/2019 Transcribed Document [facility] [place] Family Medicine [address] [place] [address] ProviderPrasanth MD [place] [address] Social History Tobacco Use Types Packs/Day Years Used Date Smoking Tobacco: Never Assessed Sex and Gender Information Value Date Recorded Sex Assigned at Not on file Legal Sex Male 6:49 PM CDT Gender Identity Not on file Sexual Orientation Not on file documented as of this encounter Miscellaneous Notes * Cerner Conversion Note - Historical ProviderMD - 09/25/2019 10:53 PM RETAIL GENERAL MANAGER Event Note Entered On: 09/25/2019 22:54 EST Performed On: 09/25/2019 22:53 EST by Phyllis Singletary RN Event Note Description of Event : Transferred patient to [facility] after giving report by phone to Alphonse SOLIS. Phyllis Singletary RN - 09/25/2019 22:53 EST documented in this encounter Plan of Treatment Not on file documented as of this encounter Visit Diagnoses Not on filedocumented in this encounter
--- OUTSIDE RECORDS SUMMARY | 2025-06-06 11:40 | XMS_ITS | Encounter Summary ---
Author Organization [employer] ([place], [place], [place], [place]) Address [address] [place] [address] Care Team Providers Care Speed Winder Name Role Phone Unavailable Primary Care Provider Unavailabl e Encounter Details Date Type Department Care Team (Late st Contact Info) Description 11/04/2019 Transcribed Document [facility] [place] Family Medicine [address] [facility] [place] [address] ProviderPrasanth MD [address] [place] [address] Social History Tobacco Use Types Packs/Day Years Used Date Smoking Tobacco: Never Assessed Sex and Gender Information Value Date Recorded Sex Assigned at Not on file Legal Sex Male 6:49 PM CDT Gender Identity Not on file Sexual Orientation Not on file documented as of this encounter Miscellaneous Notes * Cerner Conversion Note - Historical ProviderMD - 11/04/2019 11:15 PM METHODS SPECIALIST ENGINEER ED Discharge Entered On: 11/04/2019 23:36 EST [...] 11/04/2019 23:34 EST Electronically signed by Nikita [facility] Conversion Hydrometeorological Technician Devynner at 01/26/2023 9:09 PM CDT documented in this encounter Plan of Treatment Not on file documented as of this encounter Visit Diagnoses Not on filedocumented in this encounter
--- OUTSIDE RECORDS SUMMARY | 2025-06-06 11:40 | XMS_ITS | Encounter Summary ---
Author Organization [employer] ([place], [place], [place], [place]) Address [address] [place] [address] Care Team Providers Care Roller Skates Assembler Name Role Phone Unavailable Primary Care Provider Unavailabl e Encounter Details Date Type Department Care Team (Late st Contact Info) Description 11/05/2019 Transcribed Document [facility] Neurology - [address] [facility] [address] [place] [address] [place] [address] [place] [address]. [address] [place] [address] Social History Tobacco Use Types [...] Lymph # 1.32 x10(3)/uL 11/04/2019 20:08 EST [place] % 9.6 % (High) 11/04/2019 20:08 EST [place] # 0.61 K/uL 11/04/2019 20:08 EST Eos [...]
--- OUTSIDE RECORDS SUMMARY | 2025-06-06 11:40 | XMS_ITS | Encounter Summary ---
Author Organization [employer] ([place], [place], [place], [place]) Address [address] [place] [address] Care Team Providers Care Center Administrator Name Role Phone Unavailable Primary Care Provider Unavailabl e Encounter Details Date Type Department Care Team (Late st Contact Info) Description 11/05/[address] 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 The patient was transported to the emergency [...] 10/29/2019 obtain echocardiogram CAD s/p 5V CABG [facility] 09/2019 revealed patent grafts continue nitrate, [...]
--- OUTSIDE RECORDS SUMMARY | 2025-06-06 11:40 | XMS_ITS | Encounter Summary ---
Author Organization [employer] ([place], [place], [place], [place]) Address [address] [place] [address] Care Team Providers Care Profiler Name Role Phone Unavailable Primary Care Provider Unavailabl e Encounter Details Date Type Department Care Team (Late st Contact Info) Description 11/05/2019 Transcribed Document [facility] [place] [address] [place] [address] ProviderPrasanth MD [address] [place] [address] Social History Tobacco Use Types Packs/Day Years Used Date Smoking Tobacco: Never Assessed Sex and Gender Information Value Date Recorded Sex Assigned at Not on file Legal Sex Male 6:49 PM CDT Gender Identity Not on file Sexual Orientation Not on file documented as of this encounter Miscellaneous Notes * Cerner Conversion Note - Historical ProviderMD - 11/05/2019 8:00 AM SENIOR CARE MANAGER Consult Phone Call Documentation Entered On: 11/05/2019 8:22 EST Performed On: 11/05/2019 8:00 EST by Iris Banerjee, [facility] Unit Coord Phone Call for Consults Consult Phone Call/Page Attempt : First call Consult Reason : 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
--- OUTSIDE RECORDS SUMMARY | 2025-06-06 11:40 | XMS_ITS | Encounter Summary ---
Author Organization [employer] ([place], [place], [place], [place]) Address [address] [place] [address] Care Team Providers Care Intelligence Agent Name Role Phone Unavailable Primary Care Provider Unavailabl e Encounter Details Date Type Department Care Team (Late st Contact Info) Description 11/05/2019 Transcribed Document [facility] [place] [address] [place] [address] ProviderPrasanth MD [address] [place] [address] Social History Tobacco Use Types Packs/Day Years Used Date Smoking Tobacco: Never Assessed Sex and Gender Information Value Date Recorded Sex Assigned at Not on file Legal Sex Male 6:49 PM CDT Gender Identity Not on file Sexual Orientation Not on file documented as of this encounter Miscellaneous Notes * Cerner Conversion Note - Prasanth ProviderMD - 11/05/2019 9:53 AM FORENSIC ACCOUNTANT Evaluation, Physical Therapy Entered On: 11/05/2019 15:26 [...] ROM : WF Right LE Strength : [facility] L[facility] Active ROM : WF Left LE [...] PB BROWNLEE, PT - 11/05/2019 15:11 EST Automotive Design Drafter Goals Mobility/Bed Mobility LTG PT Grid Goal [...] PB BROWNLEE, PT - 11/05/2019 15:11 EST [place] PT Charges PT Eval Moderate Complexity : 1 PB BROWNLEE, PT - 11/05/2019 15:11 EST Electronically signed by Nikita [facility] Conversion Shirt Folder Cerner at 01/26/2023 8:52 PM CDT documented in this encounter Plan of Treatment Not on file documented as of this encounter Visit Diagnoses Not on filedocumented in this encounter
--- OUTSIDE RECORDS SUMMARY | 2025-06-06 11:40 | XMS_ITS | Encounter Summary ---
Author Organization [employer] ([place], [place], [place], [place]) Address [address] [place] [address] Care Team Providers Care Ambulance Paramedic Name Role Phone Unavailable Primary Care Provider Unavailabl e Encounter Details Date Type Department Care Team (Late st Contact Info) Description 11/05/2019 Transcribed Document [facility] [place] [address] [place] [address] ProviderPrasanth MD [address] [place] [address] Social History Tobacco Use Types Packs/Day Years Used Date Smoking Tobacco: Never Assessed Sex and Gender Information Value Date Recorded Sex Assigned at Not on file Legal Sex Male 6:49 PM CDT Gender Identity Not on file Sexual Orientation Not on file documented as of this encounter Miscellaneous Notes * [employer] Conversion Note - Historical ProviderMD - 11/05/2019 5:00 PM TEMPERATURE REGULATOR PYROMETER Chart Check - Review Order Profile Entered On: 11/05/2019 17:41 EST Performed On: 11/05/2019 17:00 EST by MARIBELL MIMS RN Chart Check Powerplans Initiated/Discontinued as Appropriate : Yes MARIBELL MIMS RN - 11/05/2019 17:41 EST Electronically signed by Nikita [facility] Conversion Bridge Painter Helper Devynner at 01/26/2023 8:55 PM CDT documented in this encounter Plan of Treatment Not on file documented as of this encounter Visit Diagnoses Not on filedocumented in this encounter
--- OUTSIDE RECORDS SUMMARY | 2025-06-06 11:40 | XMS_ITS | Encounter Summary ---
Author Organization [employer] ([place], [place], [place], [place]) Address [address] [place] [address] Care Team Providers Care Material Man Name Role Phone Unavailable Primary Care Provider Sharif miles Encounter Details Date Type Department Care Team (Late st Contact Info) Description 11/05/2019 Transcribed Document [facility] [place] Family Medicine [address] [place] [address] ProviderPrasanth MD [facility] [place] [address] Social History Tobacco Use Types Packs/Day Years Used Date Smoking Tobacco: Never Assessed Sex and Gender Information Value Date Recorded Sex Assigned at Not on file Legal Sex Male 6:49 PM CDT Gender Identity Not on file Sexual Orientation Not on file documented as of this encounter Miscellaneous Notes * Cerner Conversion Note - Prasanth ProviderMD - 11/05/2019 9:53 AM SAILING MASTER Evaluation, Occupational Therapy Entered On: 11/06/2019 14:25 [...] : 11/04/2019 21:19 Co-treated by, OT : trust operations assistant (STONE SPLITTER) Assisted by, OT : boiler/chiller technician/aide Personal Devices : Personal Devices Glasses Assistive Devices : Assistive Devices No Devices Recorded General Information Comment, OT : 84 yo female who was admitted to [facility] on 11/04 for cardiac arrhythmias/heart block, elevated [...] ROM : WF Left UE Strength : [facility] Upper Extremity Strength Impaired : No Right UE Strength : [facility] Left UE Strength : [facility] Upper Extremity Comment : BUE ROM and MMT [facility] BESS VINCENT, OTR/L - 11/06/2019 14:12 [...] BESS VINCENT OTR/L - 11/06/2019 14:12 EST Camp Program Director Goals, OT Grooming LTG Grid Goal #1 [...] BESS VINCENT OTR/Chio - 11/06/2019 14:12 EST [place] OT Charges OT Eval Moderate Complexity : 1 BESS VINCENT OTR/L - 11/06/2019 14:12 EST documented in this encounter Plan of Treatment Not on file documented as of this encounter Visit Diagnoses Not on filedocumented in this encounter
--- OUTSIDE RECORDS SUMMARY | 2025-06-06 11:40 | XMS_ITS | Encounter Summary ---
Author Organization [employer] ([place], [place], [place], [place]) Address [address] [place] [address] Care Team Providers Care Escape Wheel Tooth Cutter Name Role Phone Unavailable Primary Care Provider Unavailabl e Encounter Details Date Type Department Care Team (Late st Contact Info) Description 11/05/2019 Transcribed Document [facility] [place] Family Medicine [address] [place] [address] ProviderPrasanth MD [address] [place] [address] Social History Tobacco Use Types Packs/Day Years Used Date Smoking Tobacco: Never Assessed Sex and Gender Information Value Date Recorded Sex Assigned at Not on file Legal Sex Male 6:49 PM CDT Gender Identity Not on file Sexual Orientation Not on file documented as of this encounter Miscellaneous Notes * Cerner Conversion Note - Historical ProviderMD - 11/05/2019 5:00 AM INSURANCE ASSISTANT Chart Check - Review Order Profile Entered On: 11/05/2019 4:51 EST Performed On: 11/05/2019 5:00 EST by DESMOND CRUZ RN Chart Check Powerplans Initiated/Discontinued as Appropriate : Yes All Active Orders Reviewed : Yes DESMOND CRUZ RN - 11/05/2019 4:51 EST Electronically signed by Nikita [facility] Conversion Heavy Equipment Rental Manager Cerner at 01/26/2023 9:05 PM CDT documented in this encounter Plan of Treatment Not on file documented as of this encounter Visit Diagnoses Not on filedocumented in this encounter
--- OUTSIDE RECORDS SUMMARY | 2025-06-06 11:40 | XMS_ITS | Encounter Summary ---
Author Organization [employer] ([place], [place], [place], [place]) Address [address] [place] [address] Care Team Providers Care Bolting Machine Operator Name Role Phone Unavailable Primary Care Provider Unavailabl e Encounter Details Date Type Department Care Team (Late st Contact Info) Description 11/05/2019 Transcribed Document [facility] [place] Family Medicine [address] [place] [address] ProviderPrasanth MD [address] [place] [address] Social History Tobacco Use Types Packs/Day Years Used Date Smoking Tobacco: Never Assessed Sex and Gender Information Value Date Recorded Sex Assigned at Not on file Legal Sex Male 6:49 PM CDT Gender Identity Not on file Sexual Orientation Not on file documented as of this encounter Miscellaneous Notes * Cerner Conversion Note - Prasanth ProviderMD - 11/05/2019 5:51 PM RHEUMATOLOGIST Initial Discharge Planning Entered On: 11/05/2019 17:54 EST Performed On: 11/05/2019 17:51 EST by ROSANA CALLEJAS RN-Fingerprint Clerk Initial Assessment I Previously Documented Living Environment [...] Listed? : Yes Medical Durable Power of Supervisor Paper Machine Name : Legal Guardian : No ROSANA CALLEJAS RN-Fingerprint Clerk - 11/05/2019 17:51 EST Initial Assessment II Sensory and Motor Deficits : None Deficit Description : glasses Current Home Treatments and Equipment : None Services and Community Resources Addl Comments : Workout @ local Facility Gym 3x/wk Does the Patient have a Floor to SNF Benefit? : Yes ROSANA CALLEJAS RN-Fingerprint Clerk - 11/05/2019 17:51 EST Discharge Needs I Anticipated Discharge To, CM : Home independently Current Home Treatment/Equipment : Current Home Treatment/Equipment No qualifying data available. Documentation Status Complete : Yes ROSANA CALLEJAS RN-Fingerprint Clerk - 11/05/2019 17:51 EST Discharge Needs II Professional Skilled Services : Professional Skilled Services No qualifying data available. Needs Assistance with Transportation : No ROSANA CALLEJAS RN-Fingerprint Clerk - 11/05/2019 17:51 EST Narrative Note Narrative [...] and assist w/needs as approp. ROSANA CALLEJAS RN-Fingerprint Clerk - 11/05/2019 17:51 EST Electronically signed by Carla Shelton Conversion Paper Cup Handle Machine Operator Cerner at 01/26/2023 8:59 PM CDT documented in this encounter Plan of Treatment Not on file documented as of this encounter Visit Diagnoses Not on filedocumented in this encounter
--- OUTSIDE RECORDS SUMMARY | 2025-06-06 11:40 | XMS_ITS | Encounter Summary ---
Author Organization [employer] ([place], [place], [place], [place]) Address [address] [place] [address] Care Team Providers Care Shotblast Operator Name Role Phone Unavailable Primary Care Provider Unavailabl e Encounter Details Date Type Department Care Team (Late st Contact Info) Description 11/05/2019 Transcribed Document [facility] [place] [address] [place] [address] ProviderPrasanth MD [address] [place] [address] Social History Tobacco Use Types Packs/Day Years Used Date Smoking Tobacco: Never Assessed Sex and Gender Information Value Date Recorded Sex Assigned at Not on file Legal Sex Male 6:49 PM CDT Gender Identity Not on file Sexual Orientation Not on file documented as of this encounter Miscellaneous Notes * Cerner Conversion Note - Prasanth ProviderMD - 11/05/2019 5:54 PM SHRUB PLANTER On Going Discharge Planning Entered On: 11/05/2019 17:54 EST Performed On: 11/05/2019 17:54 EST by ROSANA CALLEJAS RN-Hand Wood SanderRn Baby Progress Note Discharge Arrangements : Patient Post-Acute Information Patient Name: SHIRA GARZA HORACIO Gender: Male : 37 Age: 84 Years No Post-Acute Placement(s) Listed No Post-Acute Service(s) Listed No [place] Referral(s) Listed Discharge Plan Comment : home w/ ROSANA CALLEJAS RN-Hand Wood Sander - 11/05/2019 17:54 EST Narrative [...] and assist w/needs as approp. ROSANA CALLEJAS, RN-Hand Wood Sander - 11/05/2019 17:54 EST Electronically signed by Nikita [facility] Conversion Beer Brewer Cerner at 01/26/2023 8:50 PM CDT documented in this encounter Plan of Treatment Not on file documented as of this encounter Visit Diagnoses Not on filedocumented in this encounter
--- OUTSIDE RECORDS SUMMARY | 2025-06-06 11:40 | XMS_ITS ---
Author Organization Unknown Allergies, Adverse Reactions and Alerts Date IsAllergic OnsetDate Allergen Reaction Type Severity Blayne rgyCode Legacyallergictoid ReactionCode ReactionCodeSystemID Custom 04/30 00:00 :00 1 Plavix [id number] 12/13 00:00 :00 1 Plavix [id number] 11/14 00:00 :00 1 Plavix [id number] 10/19 00:00 :00 1 Plavix [id number] 09/20 00:00 :00 1 Plavix [id number] 08/23 00:00 :00 1 Plavix [id number]
--- OUTSIDE RECORDS SUMMARY | 2025-06-06 11:40 | XMS_ITS | Encounter Summary ---
Author Organization [employer] ([place], [place], [place], [place]) Address [address] [place] [address] Care Team Providers Care Professional Athletes Coach Name Role Phone Unavailable Primary Care Provider Unavailabl e Encounter Details Date Type Department Care Team (Late st Contact Info) Description 11/06/2019 Transcribed Document [facility] Radiology [address] [place] [address] Abel Kapadia MD [address] [place] [address] [address] [place] [address] Social History Tobacco Use Types Packs/Day Years [...] Discharge PRIMARY CARE PHYSICIAN: Dr. Marcelino Caldera, [facility]. REFERRING PHYSICIAN: Dr. Beckman, [facility] , 1935. CURRENT COMPLAINT: Falls, dizziness, irregular heartbeat. HISTORY OF PRESENT ILLNESS: Shira Garza is an 84-year-old man, , living in the [facility], who recently underwent a transcatheter aortic valve [...] At risk for sleep apnea / IMO 93722344 / Confirmed Shortness of breath / SNOMED CT 626041543 / Confirmed Hypertension / SNOMED CT 90591753 / Confirmed Wears glasses / SNOMED CT 449428427 / Confirmed, Active Problems (11) Aortic stenosis [...] gallop, S1+ S2 No S3 or S4 [place].. Gastrointestinal: Soft, Non-tender, Non-distended, Normal bowel sounds. [...] (NOV 04) Radiology Results (Last 48 hours) [id number] -- 11/04/2019 21:19 CT Head WO (11/04/2019 [...] reviewed, interpreted, and dictated by Dr. Todd eJff.Transcribed by Neela Coffey PA-C.I have personally viewed, [...]
--- OUTSIDE RECORDS SUMMARY | 2025-06-06 11:40 | XMS_ITS | Encounter Summary ---
Author Organization [employer] ([place], [place], [place], [place]) Address [address] [place] [address] Care Team Providers Care Compounding And Finishing Supervisor Name Role Phone Unavailable Primary Care Provider Unavailabl e Encounter Details Date Type Department Care Team (Late st Contact Info) Description 11/05/2019 Transcribed Document [facility] Neurology - [address] [facility] [address] [place] [address] [place] [address] [place] [address]. [address] [place] [id number] Social History Tobacco Use Types Packs/Day Years [...]
--- OUTSIDE RECORDS SUMMARY | 2025-06-06 11:41 | XMS_ITS | Encounter Summary ---
Author Organization [employer] ([place], [place], [place], [place]) Address [address] [place] [address] Care Team Providers Care Forensic Scientist Name Role Phone Unavailable Primary Care Provider Unavailabl e Encounter Details Date Type Department Care Team (Late st Contact Info) Description 11/06/2019 Transcribed Document [facility] [place] Family Medicine [address] [place] [address] ProviderPrasanth MD [address] [place] [address] Social History Tobacco Use Types Packs/Day Years Used Date Smoking Tobacco: Never Assessed Sex and Gender Information Value Date Recorded Sex Assigned at Not on file Legal Sex Male 6:49 PM CDT Gender Identity Not on file Sexual Orientation Not on file documented as of this encounter Miscellaneous Notes * Cerner Conversion Note - Historical ProviderMD - 11/06/2019 12:56 PM PROFESSIONAL DRIVER Education-Surgery Entered On: 11/06/2019 16:00 EST Performed [...]
--- OUTSIDE RECORDS SUMMARY | 2025-06-06 11:41 | XMS_ITS | Encounter Summary ---
Author Organization [employer] ([place], [place], [place], [place]) Address [address] [place] [address] Care Team Providers Care Master Control Operator Name Role Phone Unavailable Primary Care Provider Unavailabl e Encounter Details Date Type Department Care Team (Late st Contact Info) Description 11/06/2019 Transcribed Document [facility] Family [place] [address] [place] [address] ProviderPrasanth MD [address] [place] [address] Social History Tobacco Use Types Packs/Day Years Used Date Smoking Tobacco: Never Assessed Sex and Gender Information Value Date Recorded Sex Assigned at Not on file Legal Sex Male 6:49 PM CDT Gender Identity Not on file Sexual Orientation Not on file documented as of this encounter Miscellaneous Notes * Cerner Conversion Note - Prasanth ProviderMD - 11/06/2019 8:58 AM VIDEO OPERATOR Patient: SHIRA GARZA HORACIO Age: 84 years Sex: Male : 1935 Associated Diagnoses: None Author: CELESTINA RUIZ APRN [facility] CARDIOLOGY PROGRESS NOTE: DIAGNOSIS: 1. intermittent [...] Routine Weight, Kilograms: 92 kg (11/06/19 02:20:00) Marble Body Weight: 70 kg (11/04/19 21:29:00) Intake [...] s/p TAVR 10/29/2019 CAD s/p 5V [facility] 09/2019 revealed patent grafts continue [...]
--- OUTSIDE RECORDS SUMMARY | 2025-06-06 11:41 | XMS_ITS | Clinical Summary ---
Author Organization [employer] ([place], [place], [place], [place]) Address [address] [place] [address] Care Team Providers Care Fishing Vessel Mate Name Role Phone Unavailable Primary Care Provider [...]
--- OUTSIDE RECORDS SUMMARY | 2025-06-06 11:41 | XMS_ITS | Encounter Summary ---
Author Organization [employer] ([place], [place], [place], [place]) Address [address] [place] [address] Care Team Providers Care Manager Labor Relations Name Role Phone Unavailable Primary Care Provider Unavailabl e Encounter Details Date Type Department Care Team (Late st Contact Info) Description 10/29/2019 Transcribed Document [facility] [place] Family Medicine [facility] [place] [address] ProviderPrasanth MD [facility] [place] [address] Social History Tobacco [...] - Prasanth ProviderMD - 10/29/2019 6:00 AM POINT OF SALE ASSOCIATE Patient: SHIRA GARZA HORACIO Age: 84 years [...] All Problems Wears glasses / SNOMED CT 759270473 / Confirmed Right bundle branch block / SNOMED CT 28713510 / Confirmed Renal calculus / SNOMED CT 600597256 / Confirmed Hypertension / SNOMED CT 67612874 / Confirmed Hyperlipidemia / SNOMED CT 90273962 / Confirmed Shortness of breath / SNOMED CT 303373214 / Confirmed CAD (coronary artery disease) / SNOMED CT 00702812 / Confirmed 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 Integumentary: Warm, Dry, [place]. Neurologic: Alert, Oriented. Psychiatric: Cooperative, Appropriate mood [...]
--- OUTSIDE RECORDS SUMMARY | 2025-06-06 11:41 | XMS_ITS | Encounter Summary ---
Author Organization [employer] ([place], [place], [place], [place]) Address [address] [place] [address] Care Team Providers Care Licensed Occupational Therapy Assistant Name Role Phone Unavailable Primary Care Provider Unavailabl e Encounter Details Date Type Department Care Team (Late st Contact Info) Description 10/30/2019 Transcribed Document [facility] [place] Family Medicine [address] [place] [address] ProviderPrasanth MD [address] [place] [address] Social History Tobacco Use Types Packs/Day Years Used Date Smoking Tobacco: Never Assessed Sex and Gender Information Value Date Recorded Sex Assigned at Not on file Legal Sex Male 6:49 PM CDT Gender Identity Not on file Sexual Orientation Not on file documented as of this encounter Miscellaneous Notes * Cerner Conversion Note - Historical ProviderMD - 10/30/2019 2:00 AM RVDA MASTER CERTIFIED RV TECHNICIAN Gas Welding Machine Operator Details Entered On: 10/30/2019 4:47 EST Performed On: 10/30/2019 2:00 EST by Rimma Blackmon RN Order Details Order Detail : N/A IV Order Detail : 1 Oxygen Order Detail : 0 Rimma Blackmon RN - 10/30/2019 4:47 EST Electronically signed by Filiberto Shelton Conversion Appeals Court Associate Justice Cerner at 01/26/2023 8:57 PM CDT documented in this encounter Plan of Treatment Not on file documented as of this encounter Visit Diagnoses Not on filedocumented in this encounter
--- OUTSIDE RECORDS SUMMARY | 2025-06-06 11:41 | XMS_ITS | Encounter Summary ---
Author Organization [employer] ([place], [place], [place], [place]) Address [address] [place] [address] Care Team Providers Care Lapping Machine Tender Name Role Phone Unavailable Primary Care Provider Unavailabl e Encounter Details Date Type Department Care Team (Late st Contact Info) Description 10/30/2019 Transcribed Document [facility] Cardiology [address] [place] [address] Lee Ann Quinonez MD [address] [facility] [address] [place] [address] Social History Tobacco Use Types [...] None Author: LEE ANN QUINONEZ MD-CAR BASIC Seals Engraver: Dr. Easley Subjective Post TAVR, doing well, ready for discharge home today. Health Status Current medications: (Selected) Inpatient Medications Ordered Ambien: 5 mg, Oral, At Bedtime, PRN: Sleep Artificial Tears ophthalmic solution: 1 Drop, Eyes Both, TID, PRN: Dry Eyes [place] Saline 0.65% nasal solution: 1 [place], Nasal, Q4H, PRN: Congestion Dulcolax Laxative: 10 [...] Normal strength, No deformity. Integumentary: Warm, Dry, [place], No rash. Neurologic: Alert, Oriented, No focal [...]
--- OUTSIDE RECORDS SUMMARY | 2025-06-06 11:41 | XMS_ITS | Referral Summary ---
Author Organization [employer] ([place], [place], [place], [place]) Address [address] [place] [address] Care Team Providers Care Retail Wireless Sales Consultant Name Role Phone Unavailable Primary Care [...]
--- OUTSIDE RECORDS SUMMARY | 2025-06-06 11:41 | XMS_ITS | Encounter Summary ---
Author Organization [employer] ([place], [place], [place], [place]) Address [address] [place] [address] Care Team Providers Care Photo Mask Processor Name Role Phone Unavailable Primary Care Provider Unavailabl e Encounter Details Date Type Department Care Team (Late st Contact Info) Description 10/30/2019 Transcribed Document [facility] [address] [place] [address] ProviderPrasanth MD [address] [place] [address] Social History Tobacco Use Types Packs/Day Years Used Date Smoking Tobacco: Never Assessed Sex and Gender Information Value Date Recorded Sex Assigned at Not on file Legal Sex Male 6:49 PM CDT Gender Identity Not on file Sexual Orientation Not on file documented as of this encounter Miscellaneous Notes * Cerner Conversion Note - Prasanth ProviderMD - 10/30/2019 8:23 AM DATA SERVICES DEVELOPER UM Authorization Entered On: 10/30/2019 8:23 EST Performed On: 10/30/2019 8:23 EST by ENDER LOMBARDO RN Primary Insurance Authorization Authorization and Policy Numbers : Insurance 1 Health Plan: MEDICARE Policy Number: [id number] Authorization Number: Insurance 2 Health Plan: AARP N Policy Number: [id number] Authorization Number: Insurance Primary Name : MEDICARE Policy Number: [id number] Historical Authorization Comments-Primary : No Authorization Comments Found ENDER LOMBARDO RN - 10/30/2019 8:23 EST documented in this encounter Plan of Treatment Not on file documented as of this encounter Visit Diagnoses Not on filedocumented in this encounter
--- OUTSIDE RECORDS SUMMARY | 2025-06-06 11:41 | XMS_ITS | Encounter Summary ---
Author Organization [employer] ([place], [place], [place], [place]) Address [address] [place] [address] Care Team Providers Care Compressor Operator Portable Name Role Phone Unavailable Primary Care Provider Unavailabl e Encounter Details Date Type Department Care Team (Late st Contact Info) Description 11/07/2019 Transcribed Document [facility] [place] [facility] [place] [address] ProviderPrasanth MD [facility] [place] [address] Social History Tobacco Use Types Packs/Day Years Used Date Smoking Tobacco: Never Assessed Sex and Gender Information Value Date Recorded Sex Assigned at Not on file Legal Sex Male 6:49 PM CDT Gender Identity Not on file Sexual Orientation Not on file documented as of this encounter Miscellaneous Notes * Cerner Conversion Note - Prasanth Sanchez MD - 11/07/2019 4:54 PM CHIMNEY CONSTRUCTION SUPERVISOR DATE OF PROCEDURE: 11/07/2019 SURGEON: Dionicio Soliman [...] A [place] [place] lead model 2088, serial #[id number], was affixed to the right ventricular apex [...] candidate mid posterolateral vein. A [place] [place] cafe lead model 1458, serial #[id number], was advanced to the distal aspect, and using an M3-M2 configuration, the capture threshold was 1.5 V with lead impedance of 930 ohms. The delivery system was removed in a standard fashion. Next, a [place] cafe lead model 2088, serial #[id number], was affixed to the right atrial appendage where the Q capture threshold was 0.5 V with lead impedance of 490 ohms, and sensed P-wave 2 mV. All leads were affixed to the prepectoralis fascia using interrupted 0 silk sutures around the retention collars. The pocket was irrigated with antibiotic solution. Hemostasis was achieved. A [employer] [place] [employer] pulse generator model KX0702, serial #[id number], was attached to the leads and placed [...] device clinic followup, and home remote monitoring. /[id number] Dionicio Soliman MD TCR/AQ / TCR / MODL /[id number] documented in this encounter Plan of Treatment Not on file documented as of this encounter Visit Diagnoses Not on filedocumented in this encounter
--- OUTSIDE RECORDS SUMMARY | 2025-06-06 11:41 | XMS_ITS | Encounter Summary ---
Author Organization [employer] ([place], [place], [place], [place]) Address [address] [place] [address] Care Team Providers Care Hide Inspector Name Role Phone Unavailable Primary Care Provider Unavailabl e Encounter Details Date Type Department Care Team (Late st Contact Info) Description 11/06/2019 Transcribed Document [facility] [place] [address] [place] [address] ProviderPrasanth MD [address] [place] [address] Social History Tobacco Use Types Packs/Day Years Used Date Smoking Tobacco: Never Assessed Sex and Gender Information Value Date Recorded Sex Assigned at Not on file Legal Sex Male 6:49 PM CDT Gender Identity Not on file Sexual Orientation Not on file documented as of this encounter Miscellaneous Notes * Cerner Conversion Note - Prasanth ProviderMD - 11/06/2019 2:25 PM LOCKSMITH Initial Discharge Planning Entered On: 11/06/2019 14:29 EST Performed On: 11/06/2019 14:25 EST by BINH SIDDIQI, RN-Grocery Store Courtesy Clerk Initial Assessment I Previously Documented Living [...] Listed? : Yes Medical Durable Power of Surface Plate Finisher Name : Legal Guardian : No Is Guardianship Needed : No BINH SIDDIQI, RN-Grocery Store Courtesy Clerk - 11/06/2019 14:25 EST Initial Assessment II Sensory and Motor Deficits : None, Weakness Current Home Treatments and Equipment : None Does the Patient have a Floor to SNF Benefit? : Yes BINH SIDDIQI, RN-Grocery Store Courtesy Clerk - 11/06/2019 14:25 EST Discharge Needs I Anticipated Discharge Date : 11/08/2019 EST Anticipated Discharge To, CM : Home with home health Current Home Treatment/Equipment : Current Home Treatment/Equipment Current Home Treatments and Equipment: None (11/05/19 17:51:00) Post Acute/Home Treatments : None Documentation Status Complete : Yes BINH SIDDIQI, RN-Grocery Store Courtesy Clerk - 11/06/2019 14:25 EST Discharge Needs II Professional Skilled Services : Professional Skilled Services No qualifying data available. Needs Assistance with Transportation : No Discharge Options Discussed with Patient : Home Health BINH SIDDIQI, RN-Grocery Store Courtesy Clerk - 11/06/2019 14:25 EST Narrative Note Narrative [...] and assist w/needs as approp. ROSANA CALLEJAS, RN-Grocery Store Courtesy Clerk - 11/05/19 17:54:15 BINH SIDDIQI, RN-Grocery Store Courtesy Clerk - 11/06/2019 14:25 EST Electronically signed by Nikita [facility] Conversion Recreation Therapy Teacher Cerner at 01/26/2023 9:08 PM CDT documented in this encounter Plan of Treatment Not on file documented as of this encounter Visit Diagnoses Not on filedocumented in this encounter
--- OUTSIDE RECORDS SUMMARY | 2025-06-06 11:41 | XMS_ITS | Encounter Summary ---
Author Organization [employer] ([place], [place], [place], [place]) Address [address] [place] [address] Care Team Providers Care Priming Machine Operator Name Role Phone Unavailable Primary Care Provider Unavailabl e Encounter Details Date Type Department Care Team (Late st Contact Info) Description 10/30/2019 Transcribed Document [facility] [place] Family Medicine [address] [place] [address] ProviderPrasanth MD [address] [place] [address] Social History Tobacco Use Types Packs/Day Years Used Date Smoking Tobacco: Never Assessed Sex and Gender Information Value Date Recorded Sex Assigned at Not on file Legal Sex Male 6:49 PM CDT Gender Identity Not on file Sexual Orientation Not on file documented as of this encounter Miscellaneous Notes * Cerner Conversion Note - Prasanth Sanchez MD - 10/30/2019 12:20 PM ROUGH RICE TENDER Patient Education Materials Follows: Groin Site Care [...] Document Reviewed: 10/29/2011 ExitCare? Patient Information ?2013 [employer]. documented in this encounter Plan of Treatment Not on file documented as of this encounter Visit Diagnoses Not on filedocumented in this encounter
--- OUTSIDE RECORDS SUMMARY | 2025-06-06 11:41 | XMS_ITS | Encounter Summary ---
Author Organization [employer] ([place], [place], [place], [place]) Address [address] [place] [address] Care Team Providers Care Day Trader Name Role Phone Unavailable Primary Care Provider Unavailabl e Encounter Details Date Type Department Care Team (Late st Contact Info) Description 11/06/2019 Transcribed Document [facility] [place] Family Medicine [address] [place] [address] ProviderPrasanth MD [address] [place] [address] Social History Tobacco Use Types Packs/Day Years Used Date Smoking Tobacco: Never Assessed Sex and Gender Information Value Date Recorded Sex Assigned at Not on file Legal Sex Male 6:49 PM CDT Gender Identity Not on file Sexual Orientation Not on file documented as of this encounter Miscellaneous Notes * Cerner Conversion Note - Historical ProviderMD - 11/06/2019 5:00 PM ARCHIVAL STUDIES PROFESSOR Chart Check - Review Order Profile Entered On: 11/06/2019 17:05 EST Performed On: 11/06/2019 17:00 EST by Lavonne Funez RN Chart Check Powerplans Initiated/Discontinued as Appropriate : Yes All Active Orders Reviewed : Yes Lavonne Funez RN - 11/06/2019 17:05 EST Electronically signed by Nikita [facility] Conversion Diesel Stationary Engineer Cerner at 01/26/2023 8:54 PM CDT documented in this encounter Plan of Treatment Not on file documented as of this encounter Visit Diagnoses Not on filedocumented in this encounter
--- OUTSIDE RECORDS SUMMARY | 2025-06-06 11:41 | XMS_ITS | Encounter Summary ---
Author Organization [employer] ([place], [place], [place], [place]) Address [address] [place] [address] Care Team Providers Care Building Maintenance Supervisor Name Role Phone Unavailable Primary Care Provider Unavailabl e Encounter Details Date Type Department Care Team (Late st Contact Info) Description 10/29/[address] [facility] [place] [address] [place] [address] ProviderPrasanth MD [address] [place] [address] Social History Tobacco Use Types Packs/Day Years Used Date Smoking Tobacco: Never Assessed Sex and Gender Information Value Date Recorded Sex Assigned at Not on file Legal Sex Male 6:49 PM CDT Gender Identity Not on file Sexual Orientation Not on file documented as of this encounter Miscellaneous Notes * Cerner Conversion Note - Historical ProviderMD - 10/29/2019 9:12 AM NAVAL GUNFIRE SPOTTER Education-(VTE) / (DVT) Entered On: 10/30/2019 4:52 EST Performed On: 10/29/2019 9:12 EST by Rimma Blackmon RN Teaching/Learning Assessment Barriers To Learning : None evident Individuals Taught : Patient, Family member Learning Style Preferences Patient : None Rimma Blackmon, WILL - 10/30/2019 4:52 EST Electronically signed by Nikita [facility] Conversion Grocery Clerk Cerner at 01/26/2023 9:07 PM CDT documented in this encounter Plan of Treatment Not on file documented as of this encounter Visit Diagnoses Not on filedocumented in this encounter
--- OUTSIDE RECORDS SUMMARY | 2025-06-06 11:41 | XMS_ITS | Encounter Summary ---
Author Organization [employer] ([place], [place], [place], [place]) Address [address] [place] [address] Care Team Providers Care Stave Cutter Name Role Phone Unavailable Primary Care Provider Unavailabl e Encounter Details Date Type Department Care Team (Late st Contact Info) Description 06/02/2021 Transcribed Document [facility] [place] Family Medicine [facility] [place] [address] ProviderPrasanth MD [facility] [place] [address] Social History Tobacco Use Types [...] : 2 - Emergent Tracking Group : [facility] ED Marisela Mendenhall RN - 06/02/2021 [...] EDT) Problems(Active) Aortic valve stenosis (SNOMED CT :839962373 ) Name of Problem: Aortic valve stenosis ; Recorder: JIMI MCNEIL RN; Confirmation: Confirmed ; Classification: Medical ; Code: [id number] ; Contributor System: [employer] ; Last Updated: 08/05/2020 10:36 EDT ; Life Cycle Status: Active ; Vocabulary: SNOMED CT At risk for sleep apnea (IMO :39204158 ) Name of Problem: At risk for sleep apnea ; Recorder: SYSTEM, SYSTEM; Confirmation: Confirmed ; Classification: Medical ; Code: [id number] ; Last Updated: 11/14/2018 7:19 EST ; Life Cycle Date: 11/14/2018 ; Life Cycle Status: Active ; Vocabulary: IMO At risk for sleep apnea (IMO :84847822 ) Name of Problem: At risk for sleep apnea ; Recorder: SYSTEM, SYSTEM; Confirmation: Confirmed ; Classification: Medical ; Code: 71792298 ; Last Updated: 08/04/2020 12:17 EDT ; Life Cycle Date: 08/04/2020 ; Life Cycle Status: Active ; Vocabulary: IMO Atrial fibrillation (SNOMED CT :49394875 ) Name of Problem: Atrial fibrillation ; Recorder: JIMI MCNEIL RN; Confirmation: Confirmed ; Classification: Medical ; Code: 30896129 ; Contributor System: aitainmentChart ; Last Updated: 08/05/2020 10:36 EDT ; Life Cycle Status: Active ; Vocabulary: SNOMED CT Atrial flutter (SNOMED CT :9631960 ) Name of Problem: Atrial flutter ; Recorder: RADHA TERRAZAS RN; Confirmation: Confirmed ; Classification: Patient Stated ; Code: 9814989 ; Contributor System: PowerChart ; Last Updated: 11/14/2018 7:26 EST ; Life Cycle Date: 11/14/2018 ; Life Cycle Status: Active ; Vocabulary: SNOMED CT Benign neoplastic disease (SNOMED CT :14825590 ) Name of Problem: Benign neoplastic disease ; Recorder: AV KING RN; Confirmation: Confirmed ; Classification: Patient Stated ; Code: 42483632 ; Contributor System: PowerChart ; Last Updated: 09/11/2019 7:15 EST ; Life Cycle Date: 09/11/2019 ; Life Cycle Status: Active ; Vocabulary: SNOMED CT CAD - Coronary artery disease (SNOMED CT :9936365320 ) Name of Problem: CAD - Coronary artery disease ; Recorder: JIMI MCNEIL RN; Confirmation: Confirmed ; Classification: Medical ; Code: [id number] ; Contributor System: PowerChart ; Last Updated: 08/05/2020 10:36 EDT ; Life Cycle Status: Active ; Vocabulary: SNOMED CT CAD (coronary artery disease) (SNOMED CT :72620191 ) Name of Problem: CAD (coronary artery disease) ; Recorder: RADHA TERRAZAS RN; Confirmation: Confirmed ; Classification: Patient Stated ; Code: 60274205 ; Contributor System: PowerChart ; Last Updated: 11/14/2018 7:27 EST ; Life Cycle Date: 11/14/2018 ; Life Cycle Status: Active ; Vocabulary: SNOMED CT Chest pain (SNOMED CT :43168179 ) Name of Problem: Chest pain ; Recorder: SALLY BARNETT RN; Confirmation: Confirmed ; Classification: Patient Stated ; Code: 85708307 ; Contributor System: PowerChart ; Last Updated: 07/22/2020 9:12 EDT ; Life Cycle Date: 07/22/2020 ; Life Cycle Status: Active ; Vocabulary: SNOMED CT H/O aortic valve replacement (SNOMED CT :7232375060 ) Name of Problem: H/O aortic valve replacement ; Recorder: WALTER POWELL RN; Confirmation: Confirmed ; Classification: Patient Stated ; Code: 4171992149 ; Contributor System: PowerChart ; Last Updated: 08/04/2020 12:06 EDT ; Life Cycle Date: 08/04/2020 ; Life Cycle Status: Active ; Vocabulary: SNOMED CT Hard of hearing (SNOMED CT :311672671 ) Name of Problem: Hard of hearing ; Recorder: WALTER POWELL RN; Confirmation: Confirmed ; Classification: Patient Stated ; Code: 315253072 ; Contributor System: PowerChart ; Last Updated: 08/04/2020 11:53 EDT ; Life Cycle Date: 08/04/2020 ; Life Cycle Status: Active ; Vocabulary: SNOMED CT HLD - Hyperlipidemia (SNOMED CT :741868780 ) Name of Problem: HLD - Hyperlipidemia ; Recorder: JIMI MCNEIL RN; Confirmation: Confirmed ; Classification: Medical ; Code: 753468547 ; Contributor System: PowerChart ; Last Updated: 08/05/2020 10:36 EDT ; Life Cycle Status: Active ; Vocabulary: SNOMED CT HTN - Hypertension (SNOMED CT :4392486510 ) Name of Problem: HTN - Hypertension ; Recorder: JIMI MCNEIL RN; Confirmation: Confirmed ; Classification: Medical ; Code: 3313452812 ; Contributor System: PowerChart ; Last Updated: 08/05/2020 10:36 EDT ; Life Cycle Status: Active ; Vocabulary: SNOMED CT Hyperlipidemia (SNOMED CT :66002538 ) Name of Problem: Hyperlipidemia ; Recorder: AV KING RN; Confirmation: Confirmed ; Classification: Patient Stated ; Code: 20467522 ; Contributor System: PowerChart ; Last Updated: 09/11/2019 6:25 EST ; Life Cycle Date: 09/11/2019 ; Life Cycle Status: Active ; Vocabulary: SNOMED CT Hyperlipidemia (SNOMED CT :15002323 ) Name of Problem: Hyperlipidemia ; Recorder: WALTER POWELL RN; Confirmation: Confirmed ; Classification: Patient Stated ; Code: 74781642 ; Contributor System: PowerChart ; Last Updated: 08/04/2020 11:53 EDT ; Life Cycle Date: 08/04/2020 ; Life Cycle Status: Active ; Vocabulary: SNOMED CT Hypertension (SNOMED CT :09434835 ) Name of Problem: Hypertension ; Recorder: HILDA ANTHONY RN; Confirmation: Confirmed ; Classification: Medical ; Code: 68593715 ; Contributor System: PowerChart ; Last Updated: 10/26/2019 9:33 EST ; Life Cycle Date: 10/26/2019 ; Life Cycle Status: Active ; Vocabulary: SNOMED CT Hypertension (SNOMED CT :71925479 ) Name of Problem: Hypertension ; Recorder: WALTER POWELL RN; Confirmation: Confirmed ; Classification: Patient Stated ; Code: 72514022 ; Contributor System: PowerChart ; Last Updated: 08/04/2020 11:53 EDT ; Life Cycle Date: 08/04/2020 ; Life Cycle Status: Active ; Vocabulary: SNOMED CT Impaired vision in both eyes (SNOMED CT :5450974096 ) Name of Problem: Impaired vision in both eyes ; Recorder: AUSTIN FOFANA RN; Confirmation: Confirmed ; Classification: Patient Stated ; Code: 4690670588 ; Contributor System: PowerChart ; Last Updated: 12/03/2019 9:57 EST ; Life Cycle Date: 12/03/2019 ; Life Cycle Status: Active ; Vocabulary: SNOMED CT Right bundle branch block (SNOMED CT :47456911 ) Name of Problem: Right bundle branch block ; Recorder: AV KING RN; Confirmation: Confirmed ; Classification: Patient Stated ; Code: 27004038 ; Contributor System: aitainmentChart ; Last Updated: 09/11/2019 7:12 EST ; Life Cycle Date: 09/11/2019 ; Life Cycle Status: Active ; Vocabulary: SNOMED CT Shortness of breath (SNOMED CT :764730861 ) Name of Problem: Shortness of breath ; Recorder: HILDA ANTHONY RN; Confirmation: Confirmed ; Classification: Medical ; Code: 826186948 ; Contributor System: aitainmentChart ; Last Updated: 10/26/2019 9:34 EST ; Life Cycle Date: 10/26/2019 ; Life Cycle Status: Active ; Vocabulary: SNOMED CT Wears glasses (SNOMED CT :537267922 ) Name of Problem: Wears glasses ; Recorder: HILDA ANTHONY RN; Confirmation: Confirmed ; Classification: Medical ; Code: 056246697 ; Contributor System: [employer] ; Last Updated: 10/26/2019 9:32 EST ; Life Cycle Date: 10/26/2019 ; Life Cycle Status: Active ; Vocabulary: SNOMED CT Diagnoses(Active) Chest pain Date: 06/02/2021 ; Diagnosis Type: Reason For Visit ; Confirmation: Complaint of ; Clinical Dx: Chest pain ; Classification: Medical ; Clinical Service: Non-Specified ; Code: PNED ; Probability: 0 ; Diagnosis Code: [id number] Weakness Date: 06/02/2021 ; Diagnosis Type: Reason For Visit ; Confirmation: Complaint of ; Clinical Dx: Weakness ; Classification: Medical ; Clinical Service: Non-Specified ; Code: PNED ; Probability: 0 ; Diagnosis Code: [id number] ED Height and Weight Height Source : Stated Height Entry Format : [place] Height, Feet : 5 ft(Converted to: 152 cm, 60 Inch) Height, Inches : 9 Inch(Converted to: 0 ft 9 Inch, 22.86 cm) Clinical Height : 175.26 cm Weight Source, ED : Standing scale Weight Entry Format : [place] Weight, Pounds : 198.4 lb Clinical Dosing Weight : 90.18 kg Body Surface Area (BSA) : 2.06 m2 Body Mass Index : 29.4 kg/m2 (HI) [place] Body Weight (IBW) : 69.73 kg Marisela Mendenhall, WILL - 06/02/2021 10:01 EDT Electronically signed by Nikita [facility] Conversion Horse Show Judge Cerner at 01/26/2023 8:50 PM CDT documented in this encounter Plan of Treatment Not on file documented as of this encounter Visit Diagnoses Not on filedocumented in this encounter
--- OUTSIDE RECORDS SUMMARY | 2025-06-06 11:41 | XMS_ITS | Encounter Summary ---
Author Organization [employer] ([place], [place], [place], [place]) Address [address] [place] [address] Care Team Providers Care Cuff Slitter Name Role Phone Unavailable Primary Care Provider Unavailabl e Encounter Details Date Type Department Care Team (Late st Contact Info) Description 10/29/2019 Transcribed Document [facility] [place] Family Medicine [address] [place] [address] ProviderPrasanth MD [address] [place] [address] Social History Tobacco Use Types Packs/Day Years Used Date Smoking Tobacco: Never Assessed Sex and Gender Information Value Date Recorded Sex Assigned at Not on file Legal Sex Male 6:49 PM CDT Gender Identity Not on file Sexual Orientation Not on file documented as of this encounter Miscellaneous Notes * Cerner Conversion Note - Prasanth ProviderMD - 10/29/2019 8:11 AM ELDERLY COMPANION [facility] Main OR IntraOp Summary Primary Physician: MARK HAIRSTON MD-CAT Finalized Date/Time: 10/31/19 12:09:24 Pt. Name: SHIRA GARZA HORACIO /Sex: 1935 Male Med Rec #: [id number] Physician: MARK HAIRSTON MD-CAT Financial #: [id number] Pt. Type: I Room/Bed: [facility]/1 Admit/Disch: 10/29/19 07:03:00 - 10/30/19 15:14:00 Institution: [facility] IntraOp Case Attendance Entry 1 Entry 2 [...] MD-ANS Angiography Tech Role Performed Surgeon/Proceduralist, Anesthesiologist Sales Outfitter Third Time In 10/29/19 07:16:00 10/29/19 07:16:00 [...] Cardiovascular RT Pref Card Builder Role Performed Sales Outfitter Scrub, Third Linseed Cake Trimmer, First Time In 10/29/19 07:16:00 10/29/19 07:16:00 [...] 11 Case Attendee JOAQUÍN ZEE, OTHER, ATTENDEE Metal Products Viewer Role Performed Metal Products Viewer Vendor Time In 10/29/19 07:16:00 10/29/19 07:16:00 Time Out 10/29/19 09:42:00 10/29/19 09:42:00 Procedure Aortic Valve Aortic Valve Replacement Transfemoral Replacement Transfemoral Other Attendee HOLAMARCELLO MANCIA Superficial Wound Closed By: Last Modified By: Solange Sutton KYOne Grimes, Jennifer, KYOne Pref Card Builder Pref Card Builder 10/29/19 09:43:00 10/29/19 09:43:00 [facility] IntraOp Case Attendance Audit 10/29/19 09:43:00 Director Media: MAY Modifier: MAY 1 <+> Time Out [...] Procedure Aortic Valve Replacement Transfemoral 10/29/19 08:06:54 Director Media: MAY Modifier: MAY <+> 1 Procedure 2 [...] 11 <*> Procedure Aortic Valve Replacement Transfemoral [facility] IntraOp Case Times Entry 1 Patient In Room Time 10/29/19 07:16:00 Out Room Time 10/29/19 09:42:00 Anesthesia Start Time 10/29/19 07:16:00 Stop Time 10/29/19 09:42:00 Surgery / Procedure Times Start Time 10/29/19 08:11:00 Stop Time 10/29/19 09:17:00 Last Modified By: Solange Sutton KYOne Pref Card Builder 10/29/19 09:42:57 [facility] IntraOp Case Times Audit 10/29/19 09:42:57 Director Media: GRIMESJE Modifier: GRIMESJE <+> 1 Out Room Time <+> 1 Stop Time 10/29/19 09:23:10 Director Media: GRIMESJE Modifier: GRIMESJE <+> 1 Stop Time 10/29/19 08:11:22 Director Media: GRIMESJE Modifier: GRIMESJE <+> 1 Start Time [facility] IntraOp Communication Entry 1 Entry 2 Entry [...] Sutton KYOne Pref Card Buildvipul 10/29/19 08:59:19 [facility] IntraOp Communication Audit 10/29/19 08:59:19 Director Media: MAY Modifier: MAY <+> 3 Date and Time <+> 4 Date and Time [facility] IntraOp Departure from OR Entry 1 Integumentary Assessment Integumentary WDL Assessment WDL Transfer/Handoff Transfer to PACU Phase I Handoff Method Bedside/Face to face Post-op Transport Bed (including Via specialty) Patient Transport DOM DE LA TORRE, Accompanied by DILLAN, JOAQUÍN ZEE, Metal Products Viewer, Solange Sutton KYOne Pref Card Aida Transfer/Handoff ICU BED Comments Last Modified By: Solange Sutton KYOne Pref Card Buildvipul 10/29/19 08:05:30 [facility] IntraOp Dressing and Packing Entry 1 Type Dressing Location OPERATIVE SITE Wound Dressing Item Skin Closure Glue, Occlusive dressing Last Modified By: Solange Sutton KYOne Pref Card Buildvipul 10/29/19 08:05:33 [facility] IntraOp Fire Risk Assessment Entry 1 Fire [...] Sutton KYOne Pref Card Buildvipul 10/29/19 08:05:40 [facility] IntraOp General Case Technology Internship 1 Case Information OR OR 20 [facility] Case Level 2 Room Verified Yes Wound Class I - Clean Specialty SN Cardio Thoracic Anesthesia Type MAC ASA Class 4 Diagnosis Preop Diagnosis AORTIC VALVE DISEASE Postop Same As Preop Yes Postop Diagnosis AORTIC VALVE DISEASE Last Modified By: Solange Sutton KYOne Pref Card Builder 10/29/19 08:05:54 [facility] IntraOp Implant Log Entry 1 Entry 2 Entry 3 Type Implant (Synthetic) Implant (Synthetic) Tissue Implant (Biologic) Implant Log Implant Type Other Other Tissue Implant Type Heart valve Implant CLOSURE SYS PERCLOSE DEVICE MYNX PIPE CHANGER 6F/ 7F KT NAVID 3 W/COMM DEL Identification PROGL [id number] Description Implant Quantity 3 1 1 Implant Site RIGHT GROIN LEFT GROIN AORTIC VALVE Implant Identification Model Number Implant [id number] Identification Serial Number Implant [id number] Identification Lot Number Implant Dixon Lab:Vasc Dev Access Closure Mancia Lifesci Identification Automobile Accessories Installer Name: Implant [id number] Identification Catalog Number Implant Size Implant Has an Yes Yes Yes Expiration Date Implant Expiration 07/09/21 09/08/21 01/08/21 Date Wasted Radioactive Material Time Implanted Tissue Implant Continue for Tissue Implant Documentation Tissue Identification Number Graft Prep Per Yes Automobile Accessories Installer Instructions: Tissue Preparation N/A Method: Reconstitution Solution: Reconstitution Solution Lot Number Reconstitution Solution Expiration Date: Thawing Solution Thawing Solution Lot Number Thawing Solution Expiration Date Preparation NACL AND HEPARIN/SALINE Materials, Other Preparation [id number] Materials, Other Lot Number Preparation 05/10/20 Materials, Other Expiration Date Tissue OTHER, ATTENDEE Prepared/Processed By Automobile Accessories Installer Yes Paperwork Completed Implant Type Comment Last Modified By: Solange Sutton KYOne Grimes, Jennifer, KYOne Grimes, Jennifer, KYOne Pref Card Builder Pref Card Builder Pref Card Builder 10/29/19 08:21:05 10/29/19 08:21:05 10/29/19 13:19:53 [facility] IntraOp Implant Log Audit 10/29/19 13:19:53 Director Media: MAY Modifier: MAY 3 <*> Implant Identification Description KT NAVID 3 W/COMM DEL SYS [id number] <*> Tissue Implant Type Tissue 10/29/19 08:34:38 Director Media: MAY Modifier: MAY 3 <*> Implant Identification Description KT NAVID 3 W/COMM DEL SYS [id number] <+> Preparation Materials, Other Lot Number 3 <+> Preparation Materials, Other Expiration Date 10/29/19 08:30:15 Director Media: MAY Modifier: MAY <+> 3 Implant Identification Description <+> 3 Implant Identification Serial Number <+> 3 Implant Identification Automobile Accessories Installer Name: <+> 3 Implant Expiration Date <+> 3 Implant Site <+> 3 Implant Quantity <+> 3 Implant Identification Catalog Number <+> 3 Tissue Implant Type <+> 3 Graft Prep Per Automobile Accessories Installer Instructions: <+> 3 Tissue Preparation Method: <+> 3 Preparation Materials, Other <+> 3 Tissue Prepared/Processed By <+> 3 Automobile Accessories Installer Paperwork Completed <+> 3 Implant Has an Expiration Date <+> 3 Type [facility] IntraOp Intraoperative Assessment Entry 1 Handoff Method [...] Sutton KYOne Pref Card Builder 10/29/19 08:06:01 [facility] IntraOp Intraoperative Equipment Entry 1 Equipment Intraop Monitoring Blood Pressure Arm, right upper Location Pulse Oximeter Hand, left Probe Site Antiembolic Devices Scopes Photo/Video Documentation Last Modified By: Solange Sutton KYOne Pref Card Builder 10/29/19 08:06:05 [facility] IntraOp Medication Admin Entry 1 Entry 2 Entry 3 Medication/Irrigant lidocaine 1% 30ml vial KENNY VISIPAQUE 320MG 150 KENNY [facility]L [facility] [id number] 200ML --[id number] 1000U .5L --[id number] Combo Med List Time Administered Route of [...] Builder 10/29/19 08:06:19 10/29/19 08:06:19 10/29/19 08:06:19 [facility] IntraOp Patient Positioning Entry 1 Procedure Aortic [...] Sutton KYOne Pref Card Builder 10/29/19 08:06:32 [facility] IntraOp Sign In Entry 1 Patient, Site, [...] Measures Yes Taken Last Modified By: Solange uStton KYOne Pref Card Builder 10/29/19 08:06:34 [facility] IntraOp Sign Out Entry 1 RN Confirmation [...] Sutton KYOne Pref Card Builder 10/29/19 09:43:07 [facility] IntraOp Sign Out Audit 10/29/19 09:43:07 Director Media: MAY Modifier: MAY <+> 1 RN Sign Out Signature Date/Time [facility] IntraOp Skin Prep Entry 1 Procedure Aortic Valve Replacement Transfemoral Prescribed Yes Pre-Surgical Prep Completed Prep Area CHIN TO KNEES Intraop Prep Integumentary WDL Assessment WDL Prep Agents Chloraprep Prep by Solange Sutton KYOne Pref Card Builder Hair Removal Last Modified By: Solange Sutton KYOne Pref Card Builder 10/29/19 08:06:43 [facility] IntraOp Surgical Procedures Entry 1 Procedure Aortic Valve Replacement Transfemoral Additional TRANSFEMORAL AORTIC Procedure VALVE REPLACEMENT, PUMP Description STAND BY Primary Procedure Yes Primary Surgeon MARK HAIRSTON MD-CAT Start 10/29/19 08:11:00 Stop 10/29/19 09:17:00 Anesthesia Type General Specialty SN Cardio Thoracic Wound Class I - Clean Last Modified By: Solange Sutton KYOne Pref Card Builder 10/29/19 09:43:10 [facility] IntraOp Surgical Procedures Audit 10/29/19 09:43:10 Director Media: MAY Modifier: MAY <+> 1 Stop 10/29/19 09:02:34 Director Media: MAY Modifier: MAY 1 <*> Procedure Aortic Valve Replacement Transfemoral 1 <+> Start 1 <*> Additional Procedure Description (AORTIC VALVULOPLASTY, VITOR, POSSIBLE TRANSCATHETER AORTIC VALVE REPLACEMENT, POSSIBLE OPEN AORTIC VALVE REPLACEMENT) [facility] IntraOp Temp Regulation Devices Entry 1 Temp Regulation Temperature Warm blankets Regulation Device Temperature Full body Regulation Site Temperature Solange Sutton KYOne Regulation Device Pref Card Builder Applied by Last Modified By: Solange Sutton KYOne Pref Card Builder 10/29/19 08:06:59 [facility] IntraOP Time Out Entry 1 Procedure to [...] Sutton KYOne Pref Card Builder 10/29/19 08:11:18 [facility] IntraOP Time Out Audit 10/29/19 08:11:18 Director Media: MAY Modifier: MAY 1 <+> Beta Bety Administered 1 <+> Time Out Pause Time 1 <*> Procedure to be Performed Aortic Valve Replacement Transfemoral 1 <+> Time Out Comment [facility] IntraOp X-Ray and Images Entry 1 X-Ray/Imaging Type Fluoroscopy Fluoroscopy Type Fixed Site CHEST Media Center Assistant Name Sherdave, Brenna, Angiography Tech Protective Devices [...] TIFFANIE Correct Billing Electronically signed by Nikita [facility] Conversion Detonator Assembler Cerner at 01/26/2023 9:05 PM CDT documented in this encounter Plan of Treatment Not on file documented as of this encounter Visit Diagnoses Not on filedocumented in this encounter
--- OUTSIDE RECORDS SUMMARY | 2025-06-06 11:41 | XMS_ITS | Encounter Summary ---
Author Organization [employer] ([place], [place], [place], [place]) Address [address] [place] [address] Care Team Providers Care Insulation Foreman Name Role Phone Unavailable Primary Care Provider Unavailabl e Encounter Details Date Type Department Care Team (Late st Contact Info) Description 06/02/2021 Transcribed Document [facility] [place] Family Medicine [facility] [address] ProviderPrasanth [place] [address] Social History Tobacco Use Types [...] continuous telemetry monitoring - No plans for [facility] at this time - Continue medical [...] RBBB. No acute ischemic change Echo Pending Electronically signed by Carla Shelton Conversion Grievance And Appeals Coordinator Cerner at 01/26/2023 8:49 PM CDT documented in this encounter Plan of Treatment Not on file documented as of this encounter Visit Diagnoses Not on filedocumented in this encounter
--- OUTSIDE RECORDS SUMMARY | 2025-06-06 11:41 | XMS_ITS | Encounter Summary ---
Author Organization [employer] ([place], [place], [place], [place]) Address [address] [place] [address] Care Team Providers Care Aircraft Pneudraulics Repairer Name Role Phone Unavailable Primary Care Provider Unavailabl e Encounter Details Date Type Department Care Team (Late st Contact Info) Description 06/02/2021 Transcribed Document [facility] [place] [facility] [place] [address] ProviderPrasanth MD [address] [place] [address] Social History Tobacco Use Types [...] information. No nutrition dx at this time. hydro plant technician to rescreen in 7-10 days. Nanette Moreno Diet Technician - 06/03/2021 11:22 EDT Electronically signed by Nikita [facility] Conversion Screw Machine Operator Single Spindle Cerner at 01/26/2023 8:49 PM CDT documented in this encounter Plan of Treatment Not on file documented as of this encounter Visit Diagnoses Not on filedocumented in this encounter
--- OUTSIDE RECORDS SUMMARY | 2025-06-06 11:41 | XMS_ITS | Encounter Summary ---
Author Organization [employer] ([place], [place], [place], [place]) Address [address] [place] [address] Care Team Providers Care Furniture Sprayer Name Role Phone Unavailable Primary Care Provider Unavailabl e Encounter Details Date Type Department Care Team (Late st Contact Info) Description 10/30/2019 Transcribed Document [facility] [place] [address] [place] [address] ProviderPrasanth MD [address] [place] [address] Social History Tobacco Use Types Packs/Day Years Used Date Smoking Tobacco: Never Assessed Sex and Gender Information Value Date Recorded Sex Assigned at Not on file Legal Sex Male 6:49 PM CDT Gender Identity Not on file Sexual Orientation Not on file documented as of this encounter Miscellaneous Notes * Cerner Conversion Note - Prasanth ProviderMD - 10/30/2019 3:13 PM MANAGER AEROSPACE Nursing Discharge Summary Entered On: 10/30/2019 15:14 EST Performed On: 10/30/2019 15:13 EST by Jason Thompson, color corrector Documentation Discharge Date/Time : 10/30/2019 15:13 EST [...] 10/30/2019 15:13 EST Electronically signed by Nikita [facility] Conversion Health Unit Coordinator Cerner at 01/26/2023 8:54 PM CDT documented in this encounter Plan of Treatment Not on file documented as of this encounter Visit Diagnoses Not on filedocumented in this encounter
--- OUTSIDE RECORDS SUMMARY | 2025-06-06 11:41 | XMS_ITS | Encounter Summary ---
Author Organization [employer] ([place], [place], [place], [place]) Address [address] [place] [address] Care Team Providers Care Post Hole Digging Machine Operator Name Role Phone Unavailable Primary Care Provider Unavailabl e Encounter Details Date Type Department Care Team (Late st Contact Info) Description 11/06/2019 Transcribed Document [facility] [place] Family Medicine [address] [place] [address] ProviderPrasanth MD [address] [place] [address] Social History Tobacco Use Types Packs/Day Years Used Date Smoking Tobacco: Never Assessed Sex and Gender Information Value Date Recorded Sex Assigned at Not on file Legal Sex Male 6:49 PM CDT Gender Identity Not on file Sexual Orientation Not on file documented as of this encounter Miscellaneous Notes * Cerner Conversion Note - Prasanth Sanchez MD - 11/06/2019 2:29 PM TOE SEWER Readmission Questionnaire Entered On: 11/06/2019 14:31 EST Performed On: 11/06/2019 14:29 EST by BINH SIDDIQI RN-Configuration Developer Readmission Questionnaire Information Obtained From : Patient [...] hematoma. 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 BINH SIDDIQI, RN-Configuration Developer - 11/06/2019 14:29 EST Electronically signed by Nikita [facility] Conversion Airplane Refueler Cerner at 01/26/2023 8:55 PM CDT documented in this encounter Plan of Treatment Not on file documented as of this encounter Visit Diagnoses Not on filedocumented in this encounter
--- OUTSIDE RECORDS SUMMARY | 2025-06-06 11:41 | XMS_ITS | Encounter Summary ---
Author Organization [employer] ([place], [place], [place], [place]) Address [address] [place] [address] Care Team Providers Care Tying In Machine Operator Name Role Phone Unavailable Primary Care Provider Unavailabl e Encounter Details Date Type Department Care Team (Late st Contact Info) Description 10/30/2019 Transcribed Document [facility] [place] Family Medicine [address] [place] [address] ProviderPrasanth MD [address] [place] [address] Social History Tobacco Use Types Packs/Day Years Used Date Smoking Tobacco: Never Assessed Sex and Gender Information Value Date Recorded Sex Assigned at Not on file Legal Sex Male 6:49 PM CDT Gender Identity Not on file Sexual Orientation Not on file documented as of this encounter Miscellaneous Notes * Cerner Conversion Note - Prasanth ProviderMD - 10/30/2019 11:30 AM CHIEF CRNA Initial Discharge Planning Entered On: 10/30/2019 11:32 EST Performed On: 10/30/2019 11:30 EST by JAIMEE CARTAGENA Scow Derrick Operator-Workers Compensation Examiner Initial Assessment I Previously Documented Living Environment : No qualifying data available. JAIMEE CARTAGENA Scow Derrick Operator-Workers Compensation Examiner - 10/30/2019 11:32 EST Living Situation : [...] Yes Legal Guardian : No JAIMEE CARTAGENA Scow Derrick Operator-Workers Compensation Examiner - 10/30/2019 11:30 EST Initial Assessment II Sensory and Motor Deficits : None Current Home Treatments and Equipment : None JAIMEE CARTAGENA Scow Derrick Operator-Workers Compensation Examiner - 10/30/2019 11:30 EST Discharge Needs I Anticipated Discharge To, CM : Home independently Current Home Treatment/Equipment : Current Home Treatment/Equipment No qualifying data available. Post Acute/Home Treatments : None Documentation Status Complete : Yes JAIMEE CARTAGENA Scow Derrick Operator-Workers Compensation Examiner - 10/30/2019 11:30 EST Discharge Needs II Professional Skilled Services : Professional Skilled Services No qualifying data available. Needs Assistance with Transportation : No Discharge Options Discussed with Patient : Discharge transportation, DME, Home Health JAIMEE CARTAGENA Scow Derrick Operator-Workers Compensation Examiner - 10/30/2019 11:30 EST Narrative Note Narrative Note : Patient is a low readmission risk of 31. Patient denied ever having HH or SNF services. Patient reported that he is independent with ADLs. He reported that he does not anticipate having any discharge needs. CM will continue to follow for discharge needs. JAIMEE CARTAGENA Scow Derrick Operator-Workers Compensation Examiner - 10/30/2019 11:32 EST documented in this encounter Plan of Treatment Not on file documented as of this encounter Visit Diagnoses Not on filedocumented in this encounter
--- OUTSIDE RECORDS SUMMARY | 2025-06-06 11:42 | XMS_ITS | Encounter Summary ---
Author Organization [employer] ([place], [place], [place], [place]) Address [address] [place] [address] Care Team Providers Care Armature Winder Repair Name Role Phone Unavailable Primary Care Provider Unavailabl e Encounter Details Date Type Department Care Team (Late st Contact Info) Description 08/05/2020 Transcribed Document [facility] [place] Family Medicine [address] [place] [address] ProviderPrasanth MD [address] [place] [address] Social History Tobacco Use Types Packs/Day Years Used Date Smoking Tobacco: Never Assessed Sex and Gender Information Value Date Recorded Sex Assigned at Not on file Legal Sex Male 6:49 PM CDT Gender Identity Not on file Sexual Orientation Not on file documented as of this encounter Miscellaneous Notes * Cerner Conversion Note - Prasanth ProviderMD - 08/05/2020 2:00 AM CDT Polisher Sand Details Entered On: 08/05/2020 1:07 EDT Performed On: 08/05/2020 2:00 EDT by Tish Calvillo Rn Order Details Order Detail : N/A Tish Calvillo Rn - 08/05/2020 1:07 EDT documented in this encounter Plan of Treatment Not on file documented as of this encounter Visit Diagnoses Not on filedocumented in this encounter
--- OUTSIDE RECORDS SUMMARY | 2025-06-06 11:42 | XMS_ITS | Encounter Summary ---
Author Organization [employer] ([place], [place], [place], [place]) Address [address] [place] [address] Care Team Providers Care District Operations Manager Name Role Phone Unavailable Primary Care Provider Unavailabl e Encounter Details Date Type Department Care Team (Late st Contact Info) Description 06/02/2021 Transcribed Document [facility] [place] Family Medicine [address] [place] [address] ProviderPrasanth MD [address] [place] [address] Social History Tobacco Use Types [...] integrated, provides little strength/resource Active in a Worship/Kirsten Group : No Baptism Preference : No baptism Dean Palmer Chaplain-Non Cert - 06/02/2021 20:52 EDT Spiritual Assessment Patient's Community/Relationship : Strength in patient's life Supportive Baptism Community : No Spirital Assessment Comment/Summary Report : SPIRITUAL ASSESSMENT COMMENT/SUMMARY No qualifying data available. Dean Palmer Chaplain-Non Cert - 06/02/2021 20:52 EDT Interventions Advance Directive Information Provided : No Emotional Support : Empathic/Engaged listening, Established trust, Information provided Spiritual and Baptism : Verify kirsten group connection, Spiritual/Baptism life explored Dean Palmer, Assistant Hall Director-Non Cert - 06/02/2021 20:52 EDT Electronically signed by Nikita, [facility] Conversion Master Automotive Glass Technician Cerner at 01/26/2023 9:10 PM CDT documented in this encounter Plan of Treatment Not on file documented as of this encounter Visit Diagnoses Not on filedocumented in this encounter
--- OUTSIDE RECORDS SUMMARY | 2025-06-06 11:42 | XMS_ITS | Encounter Summary ---
Author Organization [employer] ([place], [place], [place], [place]) Address [address] [place] [address] Care Team Providers Care Thread Drawer Name Role Phone Unavailable Primary Care Provider Unavailabl e Encounter Details Date Type Department Care Team (Late st Contact Info) Description 11/14/2018 Transcribed Document [facility] [place] Family Medicine [facility] [place] [address] ProviderPrasanth MD [facility] [place] [address] Social History Tobacco Use Types Packs/Day Years Used Date Smoking Tobacco: Never Assessed Sex and Gender Information Value Date Recorded Sex Assigned at Not on file Legal Sex Male 6:49 PM CDT Gender Identity Not on file Sexual Orientation Not on file documented as of this encounter Miscellaneous Notes * Cerner Conversion Note - Prasanth ProviderMD - 11/14/2018 7:10 AM ANALYTICS ARCHITECT Pre Procedure Adult Entered On: 11/14/2018 7:19 EST Performed On: 11/14/2018 7:10 EST by RADHA TERRAZAS RN Height and Weight, Clinical Dosing Height Source : Stated Height Entry Format : [place] Height, Feet : 0 ft(Converted to: 0 cm, 0 Inch) Height, Inches : 69 Inch(Converted to: 5 ft 9 Inch, 175.26 cm) Clinical Height : 175.26 cm Weight Source : Standing scale Weight Entry Format : [place] Clinical Dosing Weight : 88.64 kg Weight, Pounds : 195 lb Body Surface Area (BSA) : 2.05 m2 Body Mass Index : 28.9 kg/m2 (HI) [place] Body Weight : 70 kg RADHA TERRAZAS [...] #2 Relationship : - Primary Language : [place] Verdean Communication Barrier : None RADHA TERRAZAS RN [...] Scale Risk Level : 0-24 Low Risk [place]rae [place] Fall Interventions : Wheels locked RADHA TERRAZAS [...]
--- OUTSIDE RECORDS SUMMARY | 2025-06-06 11:42 | XMS_ITS | Encounter Summary ---
Author Organization [employer] ([place], [place], [place], [place]) Address [address] [place] [address] Care Team Providers Care Foreign Exchange Position Clerk Name Role Phone Unavailable Primary Care Provider Unavailabl e Encounter Details Date Type Department Care Team (Late st Contact Info) Description 11/04/2019 Transcribed Document [facility] [place] [address] [place] [address] ProviderPrasanth MD [address] [place] [address] Social History Tobacco Use Types Packs/Day Years Used Date Smoking Tobacco: Never Assessed Sex and Gender Information Value Date Recorded Sex Assigned at Not on file Legal Sex Male 6:49 PM CDT Gender Identity Not on file Sexual Orientation Not on file documented as of this encounter Miscellaneous Notes * Cerner Conversion Note - Prasanth ProviderMD - 11/04/2019 10:58 PM CREMATOR ED Event Note Entered On: 11/04/2019 22:59 [...]
--- OUTSIDE RECORDS SUMMARY | 2025-06-06 11:42 | XMS_ITS | Encounter Summary ---
Author Organization [employer] ([place], [place], [place], [place]) Address [address] [place] [address] Care Team Providers Care Jack Setter Name Role Phone Unavailable Primary Care Provider Unavailabl e Encounter Details Date Type Department Care Team (Late st Contact Info) Description 11/04/2019 Transcribed Document [facility] Neurology - [address] [facility] [address] [place] [address] [place] [address] [place] [address] [address] [place] [id number] Social History Tobacco Use Types Packs/Day Years [...]
--- OUTSIDE RECORDS SUMMARY | 2025-06-06 11:42 | XMS_ITS | Encounter Summary ---
Author Organization [employer] ([place], [place], [place], [place]) Address [address] [place] [address] Care Team Providers Care Rental Sales Agent Name Role Phone Unavailable Primary Care Provider Unavailabl e Encounter Details Date Type Department Care Team (Late st Contact Info) Description 09/11/2019 Transcribed Document [facility] [place] Family Medicine [address] [place] [address] ProviderPrasanth MD [address] [place] [address] Social History Tobacco Use Types Packs/Day Years Used Date Smoking Tobacco: Never Assessed Sex and Gender Information Value Date Recorded Sex Assigned at Not on file Legal Sex Male 6:49 PM CDT Gender Identity Not on file Sexual Orientation Not on file documented as of this encounter Miscellaneous Notes * Cerner Conversion Note - Historical ProviderMD - 09/11/2019 12:14 PM HAZARD MITIGATION OFFICER Event Note Entered On: 09/11/2019 12:17 EST [...] 09/11/2019 12:14 EST Electronically signed by Nikita [facility] Conversion Energy Efficiency Specialist Cerner at 01/26/2023 9:01 PM CDT documented in this encounter Plan of Treatment Not on file documented as of this encounter Visit Diagnoses Not on filedocumented in this encounter
--- OUTSIDE RECORDS SUMMARY | 2025-06-06 11:42 | XMS_ITS | Encounter Summary ---
Author Organization [employer] ([place], [place], [place], [place]) Address [address] [place] [address] Care Team Providers Care Senior Research Manager Name Role Phone Unavailable Primary Care Provider Unavailabl e Encounter Details Date Type Department Care Team (Late st Contact Info) Description 06/03/2021 Transcribed Document [facility] [place] [address] [place] [address] ProviderPrasanth MD [address] [place] [address] Social History Tobacco Use Types [...] On: 06/03/2021 15:57 EDT by EMILIE MOON RN-Marketing Project Manager Initial Assessment I Previously Documented Living Environment : No qualifying data available. Living Situation : Home Patient Lives With : Spouse Employment/Vocation : Retired Emergency Contact #1 : Rosa Elena Bustamante Emergency Contact #1 Phone Number : [phone] Emergency Contact #1 Relationship : Emergency Contact #2 : na Emergency Contact #2 Phone Number : na Emergency Contact #2 Relationship : na Enter Doctors Name : Nicole Juan Does Patient have PCP Listed? : Yes Medical Durable Power of Pump Tester Name : Legal Guardian : No EMILIE MOON RN-Marketing Project Manager - 06/03/2021 15:57 EDT Initial Assessment II Sensory and Motor Deficits : None, Weakness Current Home Treatments and Equipment : None EIMLIE MOON RN-Marketing Project Manager - 06/03/2021 15:57 EDT Discharge Needs I Anticipated Discharge Date : 06/06/2021 EDT Anticipated Discharge To, CM : Home with family care, Home with home health Current Home Treatment/Equipment : Current Home Treatment/Equipment No qualifying data available. Documentation Status Complete : Yes EMILIE MOON RN-Marketing Project Manager - 06/03/2021 15:57 EDT Discharge Needs II Professional Skilled Services : Professional Skilled Services No qualifying data available. Needs Assistance with Transportation : No Discharge Options Discussed with Patient : Discharge transportation, DME, Home Health Patient Discharge Goal : Home EMILIE MOON RN-Marketing Project Manager - 06/03/2021 15:57 EDT Narrative Note Narrative [...] pain. Consults: Cardiology, Neurology Patient lives in [place] with his Rosa Elena [phone]. His PCP is Dr. Martinez. Patient is ADL independent, drives and very active at home. No prior rehab stay, home health services, home oxygen or DME. will transport at discharge. DCP: Anticipate patient will discharge home with . CM will continue to follow for any needed referrals. EMLIIE MOON RN-Marketing Project Manager - 06/03/2021 15:57 EDT documented in this encounter Plan of Treatment Not on file documented as of this encounter Visit Diagnoses Not on filedocumented in this encounter
--- OUTSIDE RECORDS SUMMARY | 2025-06-06 11:42 | XMS_ITS | Encounter Summary ---
Author Organization [employer] ([place], [place], [place], [place]) Address [address] [place] [address] Care Team Providers Care Cut And Print Machine Operator Name Role Phone Unavailable Primary Care Provider Unavailabl e Encounter Details Date Type Department Care Team (Late st Contact Info) Description 09/11/2019 Transcribed Document [facility] [place] [facility] [place] [address] ProviderPrasanth MD [facility] [place] [address] Social History Tobacco Use Types Packs/Day Years Used Date Smoking Tobacco: Never Assessed Sex and Gender Information Value Date Recorded Sex Assigned at Not on file Legal Sex Male 6:49 PM CDT Gender Identity Not on file Sexual Orientation Not on file documented as of this encounter Miscellaneous Notes * Cerner Conversion Note - Prasanth ProviderMD - 09/11/2019 6:28 AM INSURANCE COUNSELOR Pre Procedure Adult Entered On: 09/11/2019 6:39 EST Performed On: 09/11/2019 6:28 EST by AV KING RN Height and Weight, Clinical Dosing Height Source : Stated Height Entry Format : [place] Height, Feet : 5 ft(Converted to: 152 cm, 60 Inch) Height, Inches : 10 Inch(Converted to: 0 ft 10 Inch, 25.40 cm) Clinical Height : 177.8 cm Weight Source : Standing scale Weight Entry Format : [place] Clinical Dosing Weight : 92.27 kg Weight, Pounds : 203 lb Body Surface Area (BSA) : 2.1 m2 Body Mass Index : 29.2 kg/m2 ([place]) [place] Body Weight : 72 kg AV KING [...] AV KING RN - 09/11/2019 6:28 EST [place] Suicide Severity Rating Scale (C-SSRS) CSSRS Past [...] #2 Relationship : .. Primary Language : [place] Islander Communication Barrier : None AV KING RN [...] Yes Devine Gait/Transferring : Normal, bedrest, immobile Deivne Mental Status : Oriented to own ability [place] Fall Risk Score : 20 DEVINE Fall Scale Risk Level : 0-24 Low Risk [place] Fall Interventions : Adequate lighting, Assistive devices [...]
--- OUTSIDE RECORDS SUMMARY | 2025-06-06 11:42 | XMS_ITS | Encounter Summary ---
Author Organization [email or web address] ([place], [place], [place], [place]) Address [address] [place] [address] Care Team Providers Care Chemical Educator Name Role Phone Unavailable Primary Care Provider Unavailabl e Encounter Details Date Type Department Care Team (Late st Contact Info) Description 09/11/2019 Transcribed Document [facility] [place] [address] [place] [address] ProviderPrasanth MD [address] [place] [address] Social History Tobacco Use Types Packs/Day Years Used Date Smoking Tobacco: Never Assessed Sex and Gender Information Value Date Recorded Sex Assigned at Not on file Legal Sex Male 6:49 PM CDT Gender Identity Not on file Sexual Orientation Not on file documented as of this encounter Miscellaneous Notes * Cerner Conversion Note - Prasanth Sanchez MD - 09/11/2019 11:49 AM DEMONSTRATOR ELECTRIC GAS APPLIANCES Patient Education Materials Follows: Groin Site Care [...] Document Reviewed: 10/29/2011 ExitCare? Patient Information ?2013 [employer]. Moderate Conscious Sedation, Adult, Care After These [...] you are awake and alert. ??? Take fibh-nis-hgobsby and prescription medicines only as told by [...] 07/17/2014 Document Revised: 02/28/2017 Document Reviewed: 01/15/2017 [employer] Interactive Patient Education ? 2019 [employer] documented in this encounter Plan of Treatment Not on file documented as of this encounter Visit Diagnoses Not on filedocumented in this encounter
--- OUTSIDE RECORDS SUMMARY | 2025-06-06 11:42 | XMS_ITS | Encounter Summary ---
Author Organization [employer] ([place], [place], [place], [place]) Address [address] [place] [address] Care Team Providers Care Land Economist Name Role Phone Unavailable Primary Care Provider Unavailabl e Encounter Details Date Type Department Care Team (Late st Contact Info) Description 06/02/2021 Transcribed Document [facility] [place] [address] [place] [address] ProviderPrasanth MD [address] [place] [address] Social History Tobacco Use Types [...] On: 06/02/2021 12:40 EDT by Chang Medrano Property Claims Adjuster-Student Nurse Teaching/Learning Assessment Barriers To Learning : None evident Individuals Taught : Patient Readiness to Learn : Cooperative Readiness to Learn : Explanation, Teach back method Learning Style Preferences Patient : Verbal explanation Learning Style Preferences Family : Verbal explanation Chang Medrano, Property Claims Adjuster-Student Nurse - 06/02/2021 15:51 EDT Education Topics: Stroke (By Discharge) Stroke Education Handouts Given *Q : Yes Chang Medrano Property Claims Adjuster-Student Nurse - 06/02/2021 15:51 EDT Stroke Education Materials Given-Grid Activation of EMS *Q : Verbalizes understanding Follow-up Care After Discharge *Q : Verbalizes understanding Medications prescribed at DC *Q : Verbalizes understanding Risk Factors for Stroke *Q : Verbalizes understanding Warning S&S of Stroke *Q : Verbalizes understanding Chang Medrano, Property Claims Adjuster-Student Nurse - 06/02/2021 15:51 EDT Individualized Stroke Risk Factors *Q : Coronary artery disease, Hypertension/High blood pressure Chang Medrano, Property Claims Adjuster-Student Nurse - 06/02/2021 15:51 EDT Electronically signed by [facility] Conversion Hospice Volunteer Cerner at 01/26/2023 9:10 PM CDT documented in this encounter Plan of Treatment Not on file documented as of this encounter Visit Diagnoses Not on filedocumented in this encounter
--- OUTSIDE RECORDS SUMMARY | 2025-06-06 11:42 | XMS_ITS | Encounter Summary ---
Author Organization [employer] ([place], [place], [place], [place]) Address [address] [place] [address] Care Team Providers Care Magazine Supervisor Name Role Phone Unavailable Primary Care Provider Unavailabl e Encounter Details Date Type Department Care Team (Late st Contact Info) Description 08/04/2020 Transcribed Document [facility] [place] Family Medicine [address] [place] [address] ProviderPrasanth MD [address] [place] [address] Social History Tobacco Use Types [...] at that time. The patient presented to [facility] on 08[facility]03 with complaints of midsternal sharp chest pain, radiating in nature to bilateral arms and jaws. He had associated shortness of breath, worsened with exertion. He took a total of 4 nitroglycerin over 45 minutes without relief. CTA revealed gallstones, punctate calcifications throughout the pancreas, bilateral adrenal adenomas, nonobstructing right renal stones, no pulmonary emboli. The patient was transferred to [facility] for higher level of care and cardiac [...] CAD/ prior 5V CABG optimize medical management [facility] 09/2019 revealed patent grafts Thrombosed aortic [...] noted patency of grafts Electronically signed by Filiberto Shelton Conversion Deputy Commonwealth'S Attorney Cerner at 01/26/2023 9:01 PM CDT documented in this encounter Plan of Treatment Not on file documented as of this encounter Visit Diagnoses Not on filedocumented in this encounter
--- OUTSIDE RECORDS SUMMARY | 2025-06-06 11:42 | XMS_ITS | Encounter Summary ---
Author Organization [employer] ([place], [place], [place], [place]) Address [address] [place] [address] Care Team Providers Care Refrigeration Houseman Name Role Phone Unavailable Primary Care Provider Unavailabl e Encounter Details Date Type Department Care Team (Late st Contact Info) Description 11/04/2019 Transcribed Document [facility] [place] [address] [place] [address] ProviderPrasanth MD [address] [place] [address] Social History Tobacco Use Types Packs/Day Years Used Date Smoking Tobacco: Never Assessed Sex and Gender Information Value Date Recorded Sex Assigned at Not on file Legal Sex Male 6:49 PM CDT Gender Identity Not on file Sexual Orientation Not on file documented as of this encounter Miscellaneous Notes * Cerner Conversion Note - Historical ProviderMD - 11/04/2019 7:33 PM STEWARD/STEWARDESS NIGHT [place] Suicide Severity Rating Scale (C-SSRS) Entered On: 11/04/2019 21:44 EST Performed On: 11/04/2019 21:37 EST by MARIA TERESA KAT RN [place] Suicide Severity Rating Scale (C-SSRS) CSSRS Past [...]
--- OUTSIDE RECORDS SUMMARY | 2025-06-06 11:42 | XMS_ITS | Encounter Summary ---
Author Organization [employer] ([place], [place], [place], [place]) Address [address] [place] [address] Care Team Providers Care Stocking And Box Shop Supervisor Name Role Phone Unavailable Primary Care Provider Unavailabl e Encounter Details Date Type Department Care Team (Late st Contact Info) Description 11/04/2019 Transcribed Document [facility] [place] [facility] [place] [address] ProviderPrasanth MD [facility] [place] [address] Social History Tobacco Use Types Packs/Day Years Used Date Smoking Tobacco: Never Assessed Sex and Gender Information Value Date Recorded Sex Assigned at Not on file Legal Sex Male 6:49 PM CDT Gender Identity Not on file Sexual Orientation Not on file documented as of this encounter Miscellaneous Notes * Cerner Conversion Note - Prasanth ProviderMD - 11/04/2019 7:33 PM OIL LEASE BUYER ED Triage Entered On: 11/04/2019 19:42 EST [...] 2 - Emergent Tracking Group : [facility] ED RADHA COVINGTON Rn - 11/04/2019 19:39 [...] Breaths/Min Oxygen Saturation : 96 % RADHA COVNIGTON Rn - 11/04/2019 19:39 EST Allergy (As Of: 11/04/2019 19:42:51 EST) Allergies (Active) amiodarone Estimated Onset Date: Unspecified ; Reactions: Unknown ; Created By: HILDA ANTHONY RN; Reaction Status: Active ; Category: Drug ; Substance: amiodarone ; Type: Allergy ; Updated By: HILDA ANTHONY RN; Reviewed Date: 11/04/2019 19:42 EST Diagnosis Control ED (As Of: 11/04/2019 19:42:51 EST) Problems(Active) Aortic stenosis (SNOMED CT :721037725 ) Name of Problem: Aortic stenosis ; Recorder: RADHA TERRAZAS RN; Confirmation: Confirmed ; Classification: Patient Stated ; Code: [id number] ; Contributor System: MedStartr ; Last Updated: 11/14/2018 7:27 EST ; Life Cycle Date: 11/14/2018 ; Life Cycle Status: Active ; Vocabulary: SNOMED CT At risk for sleep apnea (IMO :26933634 ) Name of Problem: At risk for sleep apnea ; Recorder: SYSTEM, SYSTEM; Confirmation: Confirmed ; Classification: Medical ; Code: 08000910 ; Last Updated: 11/14/2018 7:19 EST ; Life Cycle Date: 11/14/2018 ; Life Cycle Status: Active ; Vocabulary: IMO Atrial flutter (SNOMED CT :3038885 ) Name of Problem: Atrial flutter ; Recorder: RADHA TERRAZAS RN; Confirmation: Confirmed ; Classification: Patient Stated ; Code: 3227023 ; Contributor System: CapigamiChart ; Last Updated: 11/14/2018 7:26 EST ; Life Cycle Date: 11/14/2018 ; Life Cycle Status: Active ; Vocabulary: SNOMED CT Benign neoplastic disease (SNOMED CT :39879184 ) Name of Problem: Benign neoplastic disease ; Recorder: AV KING RN; Confirmation: Confirmed ; Classification: Patient Stated ; Code: 02953301 ; Contributor System: PowerChart ; Last Updated: 09/11/2019 7:15 EST ; Life Cycle Date: 09/11/2019 ; Life Cycle Status: Active ; Vocabulary: SNOMED CT CAD (coronary artery disease) (SNOMED CT :14271306 ) Name of Problem: CAD (coronary artery disease) ; Recorder: RADHA TERRAZAS RN; Confirmation: Confirmed ; Classification: Patient Stated ; Code: 01023004 ; Contributor System: PowerChart ; Last Updated: 11/14/2018 7:27 EST ; Life Cycle Date: 11/14/2018 ; Life Cycle Status: Active ; Vocabulary: SNOMED CT Hyperlipidemia (SNOMED CT :05045608 ) Name of Problem: Hyperlipidemia ; Recorder: AV KING RN; Confirmation: Confirmed ; Classification: Patient Stated ; Code: 70346656 ; Contributor System: PowerChart ; Last Updated: 09/11/2019 6:25 EST ; Life Cycle Date: 09/11/2019 ; Life Cycle Status: Active ; Vocabulary: SNOMED CT Hypertension (SNOMED CT :33639377 ) Name of Problem: Hypertension ; Recorder: HILDA ANTHONY RN; Confirmation: Confirmed ; Classification: Medical ; Code: 30435040 ; Contributor System: PowerChart ; Last Updated: 10/26/2019 9:33 EST ; Life Cycle Date: 10/26/2019 ; Life Cycle Status: Active ; Vocabulary: SNOMED CT Renal calculus (SNOMED CT :133781339 ) Name of Problem: Renal calculus ; Recorder: RADHA TERRAZAS RN; Confirmation: Confirmed ; Classification: Patient Stated ; Code: 923739399 ; Contributor System: PowerChart ; Last Updated: 11/14/2018 7:30 EST ; Life Cycle Date: 11/14/2018 ; Life Cycle Status: Active ; Vocabulary: SNOMED CT Right bundle branch block (SNOMED CT :02569500 ) Name of Problem: Right bundle branch block ; Recorder: AV KING RN; Confirmation: Confirmed ; Classification: Patient Stated ; Code: 08287350 ; Contributor System: CapigamiChart ; Last Updated: 09/11/2019 7:12 EST ; Life Cycle Date: 09/11/2019 ; Life Cycle Status: Active ; Vocabulary: SNOMED CT Shortness of breath (SNOMED CT :432763280 ) Name of Problem: Shortness of breath ; Recorder: HILDA ANTHONY RN; Confirmation: Confirmed ; Classification: Medical ; Code: 775206661 ; Contributor System: PowerChart ; Last Updated: 10/26/2019 9:34 EST ; Life Cycle Date: 10/26/2019 ; Life Cycle Status: Active ; Vocabulary: SNOMED CT Wears glasses (SNOMED CT :421773401 ) Name of Problem: Wears glasses ; Recorder: HILDA ANTHONY RN; Confirmation: Confirmed ; Classification: Medical ; Code: 730587308 ; Contributor System: MedStartr ; Last Updated: 10/26/2019 9:32 EST ; Life Cycle Date: 10/26/2019 ; Life Cycle Status: Active ; Vocabulary: SNOMED CT Diagnoses(Active) Dizziness Date: 11/04/2019 ; Diagnosis Type: Reason For Visit ; Confirmation: Complaint of ; Clinical Dx: Dizziness ; Classification: Medical ; Clinical Service: Emergency medicine ; Code: PNED ; Probability: 0 ; Diagnosis Code: [id number] ED Height and Weight Height Source : Stated Height Entry Format : [place] Height, Feet : 5 ft(Converted to: 152 cm, 60 Inch) Height, Inches : 9 Inch(Converted to: 0 ft 9 Inch, 22.86 cm) Clinical Height : 175.26 cm Weight Source, ED : Critical estimated dosing weight Weight Entry Format : [place] Weight, Pounds : 195 lb Clinical Dosing Weight : 88.64 kg Body Surface Area (BSA) : 2.05 m2 Body Mass Index : 28.9 kg/m2 ([place]) [place] Body Weight (IBW) : 69.73 kg RADHA [...]
--- OUTSIDE RECORDS SUMMARY | 2025-06-06 11:42 | XMS_ITS | Encounter Summary ---
Author Organization [employer] ([place], [place], [place], [place]) Address [address] [place] [address] Care Team Providers Care Ordnance Officer Name Role Phone Unavailable Primary Care Provider Unavailabl e Encounter Details Date Type Department Care Team (Late st Contact Info) Description 09/11/2019 Transcribed Document [facility] [place] Family Medicine [address] [place] [address] ProviderPrasanth MD [address] [place] [address] Social History Tobacco Use Types Packs/Day Years Used Date Smoking Tobacco: Never Assessed Sex and Gender Information Value Date Recorded Sex Assigned at Not on file Legal Sex Male 6:49 PM CDT Gender Identity Not on file Sexual Orientation Not on file documented as of this encounter Miscellaneous Notes * Cerner Conversion Note - Historical ProviderMD - 09/11/2019 9:20 AM MEDICAL PHYSICIST Event Note Entered On: 09/11/2019 9:24 EST Performed On: 09/11/2019 9:20 EST by AV KING RN Event Note Event Date/Time : 09/11/2019 9:00 EST Description of Event : Patient returned from laboratory manager with right groin mynx in palce, no [...] 09/11/2019 9:20 EST Electronically signed by Nikita [facility] Conversion Interstate Bus Driver Cerner at 01/26/2023 8:49 PM CDT documented in this encounter Plan of Treatment Not on file documented as of this encounter Visit Diagnoses Not on filedocumented in this encounter
--- OUTSIDE RECORDS SUMMARY | 2025-06-06 11:42 | XMS_ITS | Encounter Summary ---
Author Organization [employer] ([place], [place], [place], [place]) Address [address] [place] [address] Care Team Providers Care Industrial Psychology Teacher Name Role Phone Unavailable Primary Care Provider Unavailabl e Encounter Details Date Type Department Care Team (Late st Contact Info) Description 11/04/2019 Transcribed Document [facility] [place] [address] [address] ProviderPrasanth MD [address] [place] [address] Social History Tobacco Use Types Packs/Day Years Used Date Smoking Tobacco: Never Assessed Sex and Gender Information Value Date Recorded Sex Assigned at Not on file Legal Sex Male 6:49 PM CDT Gender Identity Not on file Sexual Orientation Not on file documented as of this encounter Miscellaneous Notes * [employer]ner Conversion Note - Historical ProviderMD - 11/04/2019 9:17 PM CLINICAL DENTAL TECHNICIAN Consult Phone Call Documentation Entered On: 11/05/2019 8:19 EST Performed On: 11/04/2019 21:17 EST by Iris Banerjee [facility] Unit Coord Phone Call for Consults Consult Phone Call/Page Attempt : First call Consult Reason : traumatic subdural Physician Requesting Consult : RASHAUN FERRARI MD-INT Physician Requested for Consult : LESLY CHIANG MD-SNU Provider Service Notified Name : Neurosurgery Consult, Additional Information : called to office Iris Banerjee, [facility] Unit Coord - 11/05/2019 8:18 EST documented in this encounter Plan of Treatment Not on file documented as of this encounter Visit Diagnoses Not on filedocumented in this encounter
--- OUTSIDE RECORDS SUMMARY | 2025-06-06 11:42 | XMS_ITS | Encounter Summary ---
Author Organization [employer] ([place], [place], [place], [place]) Address [address] [place] [address] Care Team Providers Care Fisher Gill Net Name Role Phone Unavailable Primary Care Provider Unavailabl e Encounter Details Date Type Department Care Team (Late st Contact Info) Description 11/14/2018 Transcribed Document [facility] [place] [address] [place] [address] ProviderPrasanth MD [address] [place] [address] Social History Tobacco Use Types Packs/Day Years Used Date Smoking Tobacco: Never Assessed Sex and Gender Information Value Date Recorded Sex Assigned at Not on file Legal Sex Male 6:49 PM CDT Gender Identity Not on file Sexual Orientation Not on file documented as of this encounter Miscellaneous Notes * Cerner Conversion Note - Prasanth ProviderMD - 11/14/2018 11:32 AM BASE BRANDER Nursing Discharge Summary Entered On: 11/14/2018 11:33 EST Performed On: 11/14/2018 11:32 EST by RADHA TERRAZAS environmental programs manager Documentation Patient Disposition, General : Discharge Discharge [...] - 11/14/2018 12:32 EST Electronically signed by [facility] Conversion Pooling Operator Cerner at 01/26/2023 9:08 PM CDT documented in this encounter Plan of Treatment Not on file documented as of this encounter Visit Diagnoses Not on filedocumented in this encounter
--- OUTSIDE RECORDS SUMMARY | 2025-06-06 11:42 | XMS_ITS | Encounter Summary ---
Author Organization [employer] ([place], [place], [place], [place]) Address [address] [place] [address] Care Team Providers Care Fixed Wing Aircraft Crew Chief Name Role Phone Unavailable Primary Care Provider Unavailabl e Encounter Details Date Type Department Care Team (Late st Contact Info) Description 11/04/2019 Transcribed Document [facility] [place] [address] [place] [address] ProviderPrasanth MD [facility] [place] [address] Social History Tobacco Use Types Packs/Day Years Used Date Smoking Tobacco: Never Assessed Sex and Gender Information Value Date Recorded Sex Assigned at Not on file Legal Sex Male 6:49 PM CDT Gender Identity Not on file Sexual Orientation Not on file documented as of this encounter Miscellaneous Notes * Cerner Conversion Note - Prasanth ProviderMD - 11/04/2019 7:33 PM FUR DRUMMER ED Assessment Entered On: 11/04/2019 21:44 EST [...] Communication Barrier : None Primary Language : Scottish Any Spiritual/Cultural Needs or Requests : No [...]
--- OUTSIDE RECORDS SUMMARY | 2025-06-06 11:42 | XMS_ITS | Encounter Summary ---
Author Organization [employer] ([place], [place], [place], [place]) Address [address] [place] [address] Care Team Providers Care Capacitor Pack Press Operator Name Role Phone Unavailable Primary Care Provider Unavailabl e Encounter Details Date Type Department Care Team (Late st Contact Info) Description 09/11/2019 Transcribed Document [facility] [place] Family Medicine [address] [place] [address] ProviderPrasanth MD [address] [place] [address] Social History Tobacco Use Types Packs/Day Years Used Date Smoking Tobacco: Never Assessed Sex and Gender Information Value Date Recorded Sex Assigned at Not on file Legal Sex Male 6:49 PM CDT Gender Identity Not on file Sexual Orientation Not on file documented as of this encounter Miscellaneous Notes * Cerner Conversion Note - Prasanth Sanchez MD - 09/11/2019 11:52 AM MONUMENT CARVER [facility] [address] MIYA GARZAALD HORACIO :1935 Visit [...] appoint/instructions Where: [address] [place] [address]- [phone] Medications What How Much When Instructions Next [...] Document Reviewed: 10/29/2011 ExitCare?? Patient Information ??2014 [employer]. Moderate Conscious Sedation, Adult, Care After These [...] you are awake and alert. ??? Take pmjv-foe-gkjombz and prescription medicines only as told by [...] 07/17/2014 Document Revised: 02/28/2017 Document Reviewed: 01/15/2017 [employer] Interactive Patient Education ?? 2019 [employer] Inc. Emergency Awareness and Preventative Care STROKE [...] Assistance with quitting is available by contacting 6-698-DGBTNOW. This is a free resource providing counseling, [...] was given the opportunity to ask questions. Patient/Emergency Services Director Name: Patient/Emergency Services Director Signature: Relationship to Patient: Clinician/Hospital Emergency Services Director Signature: Date: Electronically signed by [facility] Conversion Education Program Coordinator Richard at 01/26/2023 9:08 PM CDT documented in this encounter Plan of Treatment Not on file documented as of this encounter Visit Diagnoses Not on filedocumented in this encounter
--- OUTSIDE RECORDS SUMMARY | 2025-06-06 11:42 | XMS_ITS | Encounter Summary ---
Author Organization [employer] ([place], [place], [place], [place]) Address [address] [place] [address] Care Team Providers Care Safety Clothing And Equipment Developer Name Role Phone Unavailable Primary Care Provider Unavailabl e Encounter Details Date Type Department Care Team (Late st Contact Info) Description 10/30/2019 Transcribed Document [facility] [place] [address] [place] [address] ProviderPrasanth MD [address] [place] [address] Social History Tobacco Use Types Packs/Day Years Used Date Smoking Tobacco: Never Assessed Sex and Gender Information Value Date Recorded Sex Assigned at Not on file Legal Sex Male 6:49 PM CDT Gender Identity Not on file Sexual Orientation Not on file documented as of this encounter Miscellaneous Notes * Cerner Conversion Note - Prasanth ProviderMD - 10/30/2019 3:11 PM WHITEWATER RAFTING GUIDE Final Discharge Planning Entered On: 10/30/2019 15:12 [...] : Yes Discharge To Care Management : Home/Residential/Longterm or Self Care - SABRINA ROSE RN-Care Management - 10/30/2019 15:11 EST Electronically signed by Nikita, [facility] Conversion Hydrogen Power Plant Engineer Cerner at 01/26/2023 8:58 PM CDT documented in this encounter Plan of Treatment Not on file documented as of this encounter Visit Diagnoses Not on filedocumented in this encounter
--- OUTSIDE RECORDS SUMMARY | 2025-06-06 11:42 | XMS_ITS | Encounter Summary ---
Author Organization [id number] ([place], [place], [place], [place]) Address [address] [place] [address] Care Team Providers Care Converter Skimmer Name Role Phone Unavailable Primary Care Provider Unavailabl e Encounter Details Date Type Department Care Team (Late st Contact Info) Description 09/25/2019 Transcribed Document [facility] Family Medicine [address] [place] [address] ProviderPrasanth MD [address] [place] [address] Social History Tobacco Use Types Packs/Day Years Used Date Smoking Tobacco: Never Assessed Sex and Gender Information Value Date Recorded Sex Assigned at Not on file Legal Sex Male 6:49 PM CDT Gender Identity Not on file Sexual Orientation Not on file documented as of this encounter Miscellaneous Notes * Cerner Conversion Note - Prasanth Sanchez MD - 09/25/2019 12:59 PM EXTRUSION PROCESS OPERATOR Patient Education Materials Follows: Angiogram, Care After [...] cannot use soap and water, use hand automatic developer. ? Change your bandage as told by [...] (urine) clear or pale yellow. ??? Take rbzh-urj-snorizl and prescription medicines only as told by [...] 12/23/2009 Document Revised: 09/20/2017 Document Reviewed: 09/20/2017 [employer] Interactive Patient Education ? 2019 [employer] Inc. Groin Site Care Refer to this [...] Document Reviewed: 10/29/2011 ExitCare? Patient Information ?2014 [employer]. Moderate Conscious Sedation, Adult, Care After These [...] you are awake and alert. ??? Take wxbc-izt-ohdgwxc and prescription medicines only as told by [...] 07/17/2014 Document Revised: 02/28/2017 Document Reviewed: 01/15/2017 [employer] Interactive Patient Education ? 2019 [employer] Inc. documented in this encounter Plan of Treatment Not on file documented as of this encounter Visit Diagnoses Not on filedocumented in this encounter
--- OUTSIDE RECORDS SUMMARY | 2025-06-06 11:42 | XMS_ITS | Encounter Summary ---
Author Organization [employer] ([place], [place], [place], [place]) Address [address] [place] [address] Care Team Providers Care Iphone Developer Name Role Phone Unavailable Primary Care Provider Unavailabl e Encounter Details Date Type Department Care Team (Late st Contact Info) Description 06/02/2021 Transcribed Document [facility] [place] [address] [place] [address] ProviderPrasanth MD [address] [place] [address] Social History Tobacco Use Types [...]
--- OUTSIDE RECORDS SUMMARY | 2025-06-06 11:42 | XMS_ITS | Encounter Summary ---
Author Organization [employer] ([place], [place], [place], [place]) Address [address] [place] [address] Care Team Providers Care Smocker Name Role Phone Unavailable Primary Care Provider Unavailabl e Encounter Details Date Type Department Care Team (Late st Contact Info) Description 11/14/2018 Transcribed Document [facility] [place] [facility] [place] [address] ProviderPrasanth MD [facility] [place] [address] Social History Tobacco Use Types Packs/Day Years Used Date Smoking Tobacco: Never Assessed Sex and Gender Information Value Date Recorded Sex Assigned at Not on file Legal Sex Male 6:49 PM CDT Gender Identity Not on file Sexual Orientation Not on file documented as of this encounter Miscellaneous Notes * Cerner Conversion Note - Prasanth Sanchez MD - 11/14/2018 12:26 PM MIXING PAN TENDER [address] [address] Patient Copy Patient Information: Name: SHIRA GARZA HORACIO Current Date: 11/14/2018 12:26:04 : 1935 Patient Address: [address] [place] [address] [place] [address] Patient Attending Physician: Primary Care Provider: KARON [...] is done for people who: ??? Have Fohnj-Evfhzcjyd-Urdhq syndrome. ??? Have other fast heart rhythms [...] 02/21/2014 Elsevier Interactive Patient Education ? 2017 [employer]. Atrial Flutter Atrial flutter is a [...] Follow these instructions at home: ??? Take trbv-lnh-jgaehnm and prescription medicines only as told by [...] 02/12/2010 Document Revised: 02/02/2017 Document Reviewed: 04/09/2016 [employer] Interactive Patient Education ? 2017 [employer] Inc. Moderate Conscious Sedation, Adult, Care After [...] you are awake and alert. ??? Take axlw-nxp-kylhdsl and prescription medicines only as told by [...] 07/17/2014 Document Revised: 02/28/2017 Document Reviewed: 01/15/2017 ElseMeg[employer] Interactive Patient Education ? 2017 [employer] Inc. CIGARETTE SMOKING: The facts are clear, cigarette smoking will shorten your life. Smoking can cause many illnesses along the way. As a healthcare provider, we recommend that you stop smoking. Assistance with quitting is available by contacting 9-944-MKZA-NOW. This is a free resource providing counseling, [...] Be sure to sign up for the [employer] patient portal, which gives you 02/05 access to your medical information ??? including these discharge instructions ??? using your computer, smartphone, or tablet. Just go to Imperator to get started. Questions? Call . [facility] would like to thank you for allowing us to assist you with your healthcare needs. KAYLA Yee RONALD HORACIO, (or sales representative aircraft) have received the above patient education materials/instructions and have verbalized understanding: Patient Signature _ Date/Time Patient Timber Selector Signature (if needed) Date/Time Clinician/Hospital Timber Selector Signature (if needed) Date/Time Electronically signed by Filiberto Shelton Conversion Machine Setter And Repairer Devynner at 01/26/2023 9:10 PM CDT documented in this encounter Plan of Treatment Not on file documented as of this encounter Visit Diagnoses Not on filedocumented in this encounter
--- OUTSIDE RECORDS SUMMARY | 2025-06-06 11:42 | XMS_ITS | Encounter Summary ---
Author Organization [employer] ([place], [place], [place], [place]) Address [address] [place] [address] Care Team Providers Care Chief Operator Synthesis Name Role Phone Unavailable Primary Care Provider Unavailabl e Encounter Details Date Type Department Care Team (Late st Contact Info) Description 10/30/2019 Transcribed Document [facility] Family Medicine [address] [place] [address] ProviderPrasanth MD [address] [place] [address] Social History Tobacco Use Types Packs/Day Years Used Date Smoking Tobacco: Never Assessed Sex and Gender Information Value Date Recorded Sex Assigned at Not on file Legal Sex Male 6:49 PM CDT Gender Identity Not on file Sexual Orientation Not on file documented as of this encounter Miscellaneous Notes * Cerner Conversion Note - Historical ProviderMD - 10/30/2019 12:20 PM TRIMMER TAILER Stroke/Warfarin Instructions Entered On: 10/30/2019 12:20 EST [...]
--- OUTSIDE RECORDS SUMMARY | 2025-06-06 11:42 | XMS_ITS | Encounter Summary ---
Author Organization [employer] ([place], [place], [place], [place]) Address [address] [place] [address] Care Team Providers Care Medical Dosimetrist Name Role Phone Unavailable Primary Care Provider Unavailabl e Encounter Details Date Type Department Care Team (Late st Contact Info) Description 06/03/2021 Transcribed Document [facility] [place] [facility] [place] [address] ProviderPrasanth MD [address] [place] [address] Social History Tobacco Use Types [...] Diagnostic Results Radiology Results (Last 48 hours) [id number] -- 06/02/2021 12:02 CR Chest 2 Vws [...] Lymph # 1.96 x10(3)/uL 06/02/2021 21:54 EDT Sierra % 9.8 % (High) 06/03/2021 03:08 EDT [place] % 10.5 % (High) 06/02/2021 21:54 EDT Sierra # 0.66 K/uL 06/03/2021 03:08 EDT Sierra # 0.63 K/uL 06/02/2021 21:54 EDT Eos [...] MD-INT 06/02/2021 14:11 EDT Electronically signed by [facility], [facility] Conversion Lifestyle Block Farmer Cerner at 01/26/2023 8:54 PM CDT documented in this encounter Plan of Treatment Not on file documented as of this encounter Visit Diagnoses Not on filedocumented in this encounter
--- OUTSIDE RECORDS SUMMARY | 2025-06-06 11:42 | XMS_ITS | Encounter Summary ---
Author Organization [employer] ([place], [place], [place], [place]) Address [address] [place] [address] Care Team Providers Care Irrigation Technician Name Role Phone Unavailable Primary Care Provider Unavailabl e Encounter Details Date Type Department Care Team (Late st Contact Info) Description 09/11/2019 Transcribed Document [facility] [place] [facility] [place] [address] ProviderPrasanth MD [facility] [place] [address] Social History Tobacco Use Types Packs/Day Years Used Date Smoking Tobacco: Never Assessed Sex and Gender Information Value Date Recorded Sex Assigned at Not on file Legal Sex Male 6:49 PM CDT Gender Identity Not on file Sexual Orientation Not on file documented as of this encounter Miscellaneous Notes * Cerner Conversion Note - Prasanth ProviderMD - 09/11/2019 11:52 AM NURSING TECHN Nursing Discharge Summary Entered On: 09/11/2019 11:52 [...] 09/11/2019 11:52 EST Electronically signed by Nikita [facility] Conversion Travel Manager Cerner at 01/26/2023 8:50 PM CDT documented in this encounter Plan of Treatment Not on file documented as of this encounter Visit Diagnoses Not on filedocumented in this encounter
--- OUTSIDE RECORDS SUMMARY | 2025-06-06 11:42 | XMS_ITS | Encounter Summary ---
Author Organization [employer] ([place], [place], [place], [place]) Address [address] [place] [address] Care Team Providers Care Donor Services Coordinator Name Role Phone Unavailable Primary Care Provider Unavailabl e Encounter Details Date Type Department Care Team (Late st Contact Info) Description 08/04/2020 Transcribed Document [facility] [place] [address] [place] [address] ProviderPrasanth MD [address] [place] [address] Social History Tobacco Use Types [...]
--- OUTSIDE RECORDS SUMMARY | 2025-06-06 11:42 | XMS_ITS | Encounter Summary ---
Author Organization [employer] ([place], [place], [place], [place]) Address [address] [place] [address] Care Team Providers Care Director Of Premium Seat Sales Name Role Phone Unavailable Primary Care Provider Unavailabl e Encounter Details Date Type Department Care Team (Late st Contact Info) Description 08/04/2020 Transcribed Document [facility] [place] [address] [place] [address] ProviderPrasanth MD [address] [place] [address] Social History Tobacco Use [...]
--- OUTSIDE RECORDS SUMMARY | 2025-06-06 11:42 | XMS_ITS | Encounter Summary ---
Author Organization [employer] ([place], [place], [place], [place]) Address [address] [place] [address] Care Team Providers Care Table Tender Sludge Name Role Phone Unavailable Primary Care Provider Unavailabl e Encounter Details Date Type Department Care Team (Late st Contact Info) Description 11/14/2018 Transcribed Document [facility] [place] [facility] [place] [address] ProviderPrasanth MD [facility] [place] [address] Social History Tobacco Use Types Packs/Day Years Used Date Smoking Tobacco: Never Assessed Sex and Gender Information Value Date Recorded Sex Assigned at Not on file Legal Sex Male 6:49 PM CDT Gender Identity Not on file Sexual Orientation Not on file documented as of this encounter Miscellaneous Notes * Cerner Conversion Note - Prasanth Sanchez MD - 11/14/2018 8:31 AM TRACK REPAIR WORKER DATE OF STUDY: 11/14/2018 ELECTROPHYSIOLOGY RADIOFREQUENCY ABLATION REPORT PREOPERATIVE DIAGNOSIS: Symptomatic atrial flutter. PROCEDURE PERFORMED: Electrophysiology evaluation and radiofrequency ablation. DESCRIPTION OF PROCEDURE: The patient was brought to the EP laboratory in atrial flutter. After the aseptic draping of the femoral regions, the right femoral triangle was infiltrated with 1% lidocaine locally. A 6, 7, and 8-Brazilian Daig septal sheaths were introduced into the right femoral vein. A 7-Brazilian Duo-Decapolar catheter was advanced along the lateral right atrial wall and into the coronary sinus. A 6-Brazilian Quadripolar catheter was placed at the atrial septum. This catheter was later used for pacing. Electrogram analysis demonstrated a counter-clockwise atrial flutter at a cycle length of 200 msec. Next, using the Carto three-dimensional mapping system in conjunction with a BiosFabAlley Dubois F Curve irrigated catheter, radiofrequency energy at 40 zheng was delivered across the tricuspid valve isthmus with dissolution of local atrial electrograms and ultimate jainism of normal sinus rhythm. Bidirectional block across [...] 2. Successful tricuspid valve isthmus ablation with jainism of normal sinus rhythm and development of bidirectional isthmus block. RECOMMENDATIONS: Routine followup. Dionicio Soliman M.D. Dict: 11/14/2018 08:31:48 Trans: 11/14/2018 10:53:06 CC1: Dionicio Soliman M.D. documented in this encounter Plan of Treatment Not on file documented as of this encounter Visit Diagnoses Not on filedocumented in this encounter
--- OUTSIDE RECORDS SUMMARY | 2025-06-06 11:42 | XMS_ITS | Encounter Summary ---
Author Organization [employer] ([place], [place], [place], [place]) Address [address] [place] [address] Care Team Providers Care Fork Lift Mechanic Name Role Phone Unavailable Primary Care Provider Unavailabl e Encounter Details Date Type Department Care Team (Late st Contact Info) Description 09/11/2019 Transcribed Document [facility] [place] [address] [place] [address] ProviderPrasanth MD [address] [place] [address] Social History Tobacco Use Types Packs/Day Years Used Date Smoking Tobacco: Never Assessed Sex and Gender Information Value Date Recorded Sex Assigned at Not on file Legal Sex Male 6:49 PM CDT Gender Identity Not on file Sexual Orientation Not on file documented as of this encounter Miscellaneous Notes * Cerner Conversion Note - Historical ProviderMD - 09/11/2019 11:21 AM CONCRETE BOOM OPERATOR Event Note Entered On: 09/11/2019 11:22 EST Performed On: 09/11/2019 11:21 EST by AV KING RN Event Note Event Date/Time : 09/11/2019 11:05 EST Description of Event : Patient has completed appropriate bed rest of 2 hours, he has walked and ready for discharge. Awaiting Dr Kyle to [facility] on Patient AV KING RN - 09/11/2019 11:21 EST documented in this encounter Plan of Treatment Not on file documented as of this encounter Visit Diagnoses Not on filedocumented in this encounter
--- OUTSIDE RECORDS SUMMARY | 2025-06-06 11:42 | XMS_ITS | Encounter Summary ---
Author Organization [employer] ([place], [place], [place], [place]) Address [address] [place] [address] Care Team Providers Care Foreclosure Home Inspector Name Role Phone Unavailable Primary Care Provider Unavailabl e Encounter Details Date Type Department Care Team (Late st Contact Info) Description 11/04/2019 Transcribed Document [facility] [place] [address] [place] [address] ProviderPrasanth MD [address] [place] [address] Social History Tobacco Use Types Packs/Day Years Used Date Smoking Tobacco: Never Assessed Sex and Gender Information Value Date Recorded Sex Assigned at Not on file Legal Sex Male 6:49 PM CDT Gender Identity Not on file Sexual Orientation Not on file documented as of this encounter Miscellaneous Notes * Cerner Conversion Note - Prasanth ProviderMD - 11/04/2019 11:45 PM HOG COUNTER Education-Critical Care Entered On: 11/04/2019 23:45 EST [...]
--- OUTSIDE RECORDS SUMMARY | 2025-06-06 11:42 | XMS_ITS | Encounter Summary ---
Author Organization [employer] ([place], [place], [place], [place]) Address [address] [place] [address] Care Team Providers Care Student Life Dean Name Role Phone Unavailable Primary Care Provider Unavailabl e Encounter Details Date Type Department Care Team (Late st Contact Info) Description 09/11/2019 Transcribed Document [facility] [place] [address] [place] [address] ProviderPrasanth MD [address] [place] [address] Social History Tobacco Use Types Packs/Day Years Used Date Smoking Tobacco: Never Assessed Sex and Gender Information Value Date Recorded Sex Assigned at Not on file Legal Sex Male 6:49 PM CDT Gender Identity Not on file Sexual Orientation Not on file documented as of this encounter Miscellaneous Notes * Cerner Conversion Note - Prasanth Sanchez MD - 09/11/2019 11:55 AM INVENTORY SPECIALIST MANAGER DATE OF CONSULTATION: 09/11/2019 REASON FOR CONSULTATION: Evaluation of aortic stenosis. HISTORY OF PRESENT ILLNESS: Mr. 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 He also has undergone previous [...] Mr. Cormier and his and they understand. /[id number] Flaco Kyle IV, MD RDF/AQ / RDF / MODL /[id number] CC: Jason Easley MD documented in this encounter Plan of Treatment Not on file documented as of this encounter Visit Diagnoses Not on filedocumented in this encounter
--- OUTSIDE RECORDS SUMMARY | 2025-06-06 11:42 | XMS_ITS | Encounter Summary ---
Author Organization [employer] ([place], [place], [place], [place]) Address [address] [place] [address] Care Team Providers Care Electrical Line Splicer Name Role Phone Unavailable Primary Care Provider Unavailabl e Encounter Details Date Type Department Care Team (Late st Contact Info) Description 06/03/2021 Transcribed Document [facility] [place] [address] [place] [address] ProviderPrasanth MD [address] [place] [address] Social History Tobacco Use Types [...] On: 06/03/2021 9:00 EDT by Chang Medrano, Securities Compliance Examiner-Student Nurse NIH Stroke Scale *Q NIH Assessment [...] NIH Scale Score : 0 Chang Medrano, Securities Compliance Examiner-Student Nurse - 06/03/2021 7:31 EDT documented in this encounter Plan of Treatment Not on file documented as of this encounter Visit Diagnoses Not on filedocumented in this encounter
--- OUTSIDE RECORDS SUMMARY | 2025-06-06 11:42 | XMS_ITS | Encounter Summary ---
Author Organization [employer] ([place], [place], [place], [place]) Address [address] [place] [address] Care Team Providers Care Organizational Psychologist Name Role Phone Unavailable Primary Care Provider Unavailabl e Encounter Details Date Type Department Care Team (Late st Contact Info) Description 06/03/[address] [facility] [place] [facility] [place] [address] ProviderPrasanth MD [facility] [place] [address] Social History Tobacco Use Types [...] Associated Diagnoses: None Author: BINH NORIEGA NP [facility] PROGRESS NOTE: DIAGNOSIS: 1. Elevated troponin [...] to historical echo. - No plans for [facility] at this time, given recent TIA [...]
--- OUTSIDE RECORDS SUMMARY | 2025-06-06 11:42 | XMS_ITS | Encounter Summary ---
Author Organization [employer] ([place], [place], [place], [place]) Address [address] [place] [address] Care Team Providers Care Typewriter Aligner Name Role Phone Unavailable Primary Care Provider Unavailabl e Encounter Details Date Type Department Care Team (Late st Contact Info) Description 09/11/2019 Transcribed Document [facility] Family Medicine [facility] [place] [address] ProviderPrasanth MD [facility] [place] [address] Social History Tobacco Use Types Packs/Day Years Used Date Smoking Tobacco: Never Assessed Sex and Gender Information Value Date Recorded Sex Assigned at Not on file Legal Sex Male 6:49 PM CDT Gender Identity Not on file Sexual Orientation Not on file documented as of this encounter Miscellaneous Notes * Cerner Conversion Note - Prasanth Sanchez MD - 09/11/2019 8:57 AM ORACLE REPORTS DEVELOPER DATE OF SERVICE: 09/11/2019 PROCEDURE: Left heart [...] stenosis with severe ventricular hypertrophy. PROCEDURE: RFA, 5-Micronesian sheath, 5-Micronesian Denny multipack, Mynx assisted manual compression hemostasis. No adverse events. FINDINGS: Aortic pressure was 130/70. The valve was not crossed. The pressure contour of the aorta demonstrated significant delayed upstroke consistent with severe aortic stenosis. ANGIOGRAPHY: Ejection fraction normal by echocardiogram. The ascending aortography demonstrated dilation of the ascending aorta with tortuosity of the subclavian arteries. CADDO CIRCULATION: Right coronary artery known to be [...] the cardiac surgeon, Dr. Kyle for AVR. /[id number] MD JOSE ANTONIO Moore/AQ / JOSE ANTONIO / MODL /[id number] Electronically signed by Filiberto Shelton Conversion Amphibious Operations Officer Cerner at 01/26/2023 8:49 PM CDT documented in this encounter Plan of Treatment Not on file documented as of this encounter Visit Diagnoses Not on filedocumented in this encounter
--- OUTSIDE RECORDS SUMMARY | 2025-06-06 11:42 | XMS_ITS | Encounter Summary ---
Author Organization [employer] ([place], [place], [place], [place]) Address [address] [place] [address] Care Team Providers Care Lining Stamper Name Role Phone Unavailable Primary Care Provider Unavailabl e Encounter Details Date Type Department Care Team (Late st Contact Info) Description 08/04/2020 Transcribed Document [facility] [place] [address] [place] [address] ProviderPrasanth MD [address] [place] [address] Social History Tobacco Use Types Packs/Day Years Used Date Smoking Tobacco: Never Assessed Sex and Gender Information Value Date Recorded Sex Assigned at Not on file Legal Sex Male 6:49 PM CDT Gender Identity Not on file Sexual Orientation Not on file documented as of this encounter Miscellaneous Notes * Cerner Conversion Note - rPasanth ProviderMD - 08/04/2020 4:00 PM CDT Event [...]
--- OUTSIDE RECORDS SUMMARY | 2025-06-06 11:42 | XMS_ITS | Encounter Summary ---
Author Organization [employer] ([place], [place], [place], [place]) Address [address] [place] [address] Care Team Providers Care Primary Care Provider Name Role Phone Unavailable Primary Care Provider Unavailabl e Encounter Details Date Type Department Care Team (Late st Contact Info) Description 11/04/2019 Transcribed Document [facility] [place] [facility] [place] [address] ProviderPrasanth MD [address] [place] [address] Social History Tobacco Use [...] Prasanth Sanchez MD - 11/04/2019 10:27 PM CLINICAL CYTOPATHOLOGIST DATE OF ADMISSION: 11/04/2019 PRIMARY CARE PHYSICIAN: Dr. Marcelino Caldera, [facility]. REFERRING PHYSICIAN: Dr. Beckman, [facility] , 1935. CURRENT COMPLAINT: Falls, dizziness, irregular heartbeat. HISTORY OF PRESENT ILLNESS: David Cormier is an 84-year-old man, , living in the [facility], who recently underwent a transcatheter aortic valve [...] children. He and his live in the [facility]. 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 [...] anticipate likely permanent pacemaker placement on 11/05. /[id number] MD RHIANNON Martínez/AQ / MGAmaury / MODL CC: MD Roberta Royal MD Hamid R Mohammadzadeh, MD Jason Sartini Electronically signed by [facility], [facility] Conversion Rose Grower Cerner at 01/26/2023 8:53 PM CDT documented in this encounter Plan of Treatment Not on file documented as of this encounter Visit Diagnoses Not on filedocumented in this encounter
--- OUTSIDE RECORDS SUMMARY | 2025-06-06 11:43 | XMS_ITS | Encounter Summary ---
Author Organization [employer] ([place], [place], [place], [place]) Address [address] [place] [address] Care Team Providers Care Repair Servicer Name Role Phone Unavailable Primary Care Provider Unavailabl e Encounter Details Date Type Department Care Team (Late st Contact Info) Description 06/04/2021 Transcribed Document [facility] [place] [facility] [place] [address] [place] [address] ProviderPrasanth MD [address] [place] [address] Social History Tobacco Use [...] On: 06/04/2021 15:42 EDT by Chang Medrano, Fusion Juncture Grinder-Student Nurse Discharge Documentation Discharge Date/Time : 06/04/2021 [...] Discharge, Comment : [facility] could go to their office at [facility] to recieve a months worth of free samples of Eliquis to take since the patient had said he would not pay for Eliquis due to the smith. He galindo use the free samples until he se Dr. Layne on 06/09 and discusses with him whether or not to continue the Eliquis. Chang Medrano, Fusion Juncture Grinder-Student Nurse - 06/04/2021 15:42 EDT documented in this encounter Plan of Treatment Not on file documented as of this encounter Visit Diagnoses Not on filedocumented in this encounter
--- OUTSIDE RECORDS SUMMARY | 2025-06-06 11:43 | XMS_ITS | Encounter Summary ---
Author Organization [employer] ([place], [place], [place], [place]) Address [address] [place] [address] Care Team Providers Care Pulp Drier Name Role Phone Unavailable Primary Care Provider Unavailabl e Encounter Details Date Type Department Care Team (Late st Contact Info) Description 09/26/2019 Transcribed Document [facility] [place] [address] [place] [address] ProviderPrasanth MD [address] [place], [place] [id number] Social History Tobacco Use Types Packs/Day Years Used Date Smoking Tobacco: Never Assessed Sex and Gender Information Value Date Recorded Sex Assigned at Not on file Legal Sex Male 6:49 PM CDT Gender Identity Not on file Sexual Orientation Not on file documented as of this encounter Miscellaneous Notes * Cerner Conversion Note - Historical ProviderMD - 09/26/2019 10:31 AM MACHINE DRILLER UM Authorization Entered On: 09/26/2019 10:31 EST Performed On: 09/26/2019 10:31 EST by DIVINA HUGHES Rn-Utilization Review Primary Insurance Authorization Authorization and Policy Numbers : Insurance 1 Health Plan: MEDICARE Policy Number: [id number] Authorization Number: NOT REQUIRED Insurance 2 Health Plan: AARP N Policy Number: [id number] Authorization Number: NOT REQUIRED Insurance Primary Name : MEDICARE Policy Number: [id number] AARP N Policy Number: [id number] Historical Authorization Comments-Primary : No Authorization Comments Found DIVINA HUGHES Rn-Utilization Review - 09/26/2019 10:31 EST documented in this encounter Plan of Treatment Not on file documented as of this encounter Visit Diagnoses Not on filedocumented in this encounter
--- OUTSIDE RECORDS SUMMARY | 2025-06-06 11:43 | XMS_ITS | Encounter Summary ---
Author Organization [employer] ([place], [place], [place], [place]) Address [address] [place] [address] Care Team Providers Care Stage Setting Painter Apprentice Name Role Phone Unavailable Primary Care Provider Unavailabl e Encounter Details Date Type Department Care Team (Late st Contact Info) Description 06/04/2021 Transcribed Document [facility] [place] [address] [place] [address] ProviderPrasanth MD [address] [place] [address] Social History Tobacco Use Types [...] On: 06/04/2021 9:00 EDT by Chang Medrano, Cosmetology Teacher-Student Nurse NIH Stroke Scale *Q NIH Assessment [...] NIH Scale Score : 0 Chang Medrano, Cosmetology Teacher-Student Nurse - 06/04/2021 8:19 EDT Electronically signed by [facility] Conversion Substation Operator Cerner at 01/26/2023 9:01 PM CDT documented in this encounter Plan of Treatment Not on file documented as of this encounter Visit Diagnoses Not on filedocumented in this encounter
--- OUTSIDE RECORDS SUMMARY | 2025-06-06 11:43 | XMS_ITS | Encounter Summary ---
Author Organization [employer] ([place], [place], [place], [place]) Address [address] [place] [address] Care Team Providers Care Resolution Manager Name Role Phone Unavailable Primary Care Provider Unavailabl e Encounter Details Date Type Department Care Team (Late st Contact Info) Description 08/05/2020 Transcribed Document [facility] [place] [address] [place] [address] ProviderPrasanth MD [address] [place] [address] Social History Tobacco Use [...] Insurance 1 Health Plan: MEDICARE Policy Number: [id number] Authorization Number: Insurance Primary Name : MEDICARE Policy Number: [id number] Historical Authorization Comments-Primary : No Authorization Comments Found DIVINA HUGHES Rn-Utilization Review - 08/05/2020 14:39 EDT Electronically signed by Carla Shelton Conversion Executive Services Administrator Richard at 01/26/2023 9:10 PM CDT documented in this encounter Plan of Treatment Not on file documented as of this encounter Visit Diagnoses Not on filedocumented in this encounter
--- OUTSIDE RECORDS SUMMARY | 2025-06-06 11:43 | XMS_ITS | Encounter Summary ---
Author Organization [employer] ([place], [place], [place], [place]) Address [address] [place] [address] Care Team Providers Care School Standards Coach Name Role Phone Unavailable Primary Care Provider Unavailabl e Encounter Details Date Type Department Care Team (Late st Contact Info) Description 09/26/2019 Transcribed Document [facility] Card[facility] [address] [place] [address] Lee Ann Quinonez MD [address] [facility] [address] [place] [id number] Social History Tobacco Use Types Packs/Day Years [...] LEE ANN QUINONEZ MD-CAR BASIC Cardiology: Clinic/ Dvei for Subjective Says that he is breathing [...] Normal strength, No deformity. Integumentary: Warm, Dry, Rives, No rash. Neurologic: Alert, Oriented, No focal [...]
--- OUTSIDE RECORDS SUMMARY | 2025-06-06 11:43 | XMS_ITS | Encounter Summary ---
Author Organization [employer] ([place], [place], [place], [place]) Address [address] [place] [address] Care Team Providers Care Environmental Health And Safety Manager Name Role Phone Unavailable Primary Care Provider Unavailabl e Encounter Details Date Type Department Care Team (Late st Contact Info) Description 08/05/2020 Transcribed Document [facility] [place] [facility] [place] [address] ProviderPrasanth MD [facility] [place] [address] Social History Tobacco Use Types [...] Associated Diagnoses: None Author: CELESTINA RUIZ APRN [facility] PROGRESS NOTE: DIAGNOSIS: 1. NSTEMI 2. [...] 01:29) Clinical Weight CLINICALWEIGHT: 88.64 kg (08/04/20::) Lanse Body Weight: 70 kg (08/04/20::) Intake & [...] CAD/ prior 5V CABG optimize medical management [facility] 09/2019 revealed patent grafts Thrombosed [...]
--- OUTSIDE RECORDS SUMMARY | 2025-06-06 11:43 | XMS_ITS | Encounter Summary ---
Author Organization [employer] ([place], [place], [place], [place]) Address [address] [place] [address] Care Team Providers Care Career Development Facilitator Name Role Phone Unavailable Primary Care Provider Unavailabl e Encounter Details Date Type Department Care Team (Late st Contact Info) Description 08/06/2020 Transcribed Document [facility] [place] [address] [place] [address] ProviderPrasanth MD [address] [place] [address] Social History Tobacco Use Types [...] a heart-healthy eating plan. Medicines ??? Take znqq-hbe-btxuvgy and prescription medicines only as told by [...] 09/26/2006 Document Revised: 10/08/2019 Document Reviewed: 10/08/2019 [employer]gamecompany Patient Education ? 2020 [employer]. Pharmacology Aspirin and Your Heart Aspirin [...] The two forms of aspirin are: ? Npc-uhrmute-qugibk.This type of aspirin does not have a coating and is absorbed quickly. This type of aspirin also comes in a chewable form. ? Enteric-coated. This type of aspirin has a coating that releases the medicine very slowly. Enteric-coated aspirin might cause less stomach upset than hmb-xlxybxd-mohjpv aspirin. This type of aspirin should not [...] 09/08/2009 Document Revised: 07/27/2018 Document Reviewed: 07/27/2018 [employer] Patient Education ? 2020 [employer]. Preventive Health Venous Thromboembolism Prevention Venous [...] for Disease Control and Prevention: www.cdc.gov ??? Citizen Of [place] Heart Association: www.heart.org Get help right away [...] Reviewed: 12/04/2019 Elsevier Patient Education ? 2019 [employer] Inc. Procedures Mitral Valve Replacement Mitral valve [...] including vitamins, herbs, eye drops, creams, and xzyy-bkg-lrhugjc medicines. ??? Any problems you or family [...] tells you to take them. ? Taking scaa-ssa-dontzhe medicines, vitamins, herbs, and supplements. Staying hydrated [...] 01/27/2006 Document Revised: 06/19/2019 Document Reviewed: 06/19/2019 [employer] Patient Education ? 2020 [employer]. documented in this encounter Plan of Treatment Not on file documented as of this encounter Visit Diagnoses Not on filedocumented in this encounter
--- OUTSIDE RECORDS SUMMARY | 2025-06-06 11:43 | XMS_ITS | Encounter Summary ---
Author Organization [employer] ([place], [place], [place], [place]) Address [address] [place] [address] Care Team Providers Care Data Architect Manager Name Role Phone Unavailable Primary Care Provider Unavailabl e Encounter Details Date Type Department Care Team (Late st Contact Info) Description 08/06/2020 Transcribed Document [facility] [place] [address] [place] [address] ProviderPrasanth MD [address] [place] [address] Social History Tobacco Use Types [...] Insurance 1 Health Plan: MEDICARE Policy Number: [id number] Authorization Number: Insurance Primary Name : MEDICARE Policy Number: [id number] Historical Authorization Comments-Primary : No Authorization Comments Found DIVINA HUGHES Rn-Utilization Review - 08/06/2020 9:30 EDT Electronically signed by Carla Shelton Conversion Dictating Machine Transcriber Richard at 01/26/2023 8:58 PM CDT documented in this encounter Plan of Treatment Not on file documented as of this encounter Visit Diagnoses Not on filedocumented in this encounter
--- OUTSIDE RECORDS SUMMARY | 2025-06-06 11:43 | XMS_ITS | Encounter Summary ---
Author Organization [employer] ([place], [place], [place], [place]) Address [address] [place] [address] Care Team Providers Care Lap Runner Name Role Phone Unavailable Primary Care Provider Unavailabl e Encounter Details Date Type Department Care Team (Late st Contact Info) Description 06/03/2021 Transcribed Document [facility] [place] [address] [place] [address] ProviderPrasanth MD [address] [place] [address] Social History Tobacco Use Types [...]
--- OUTSIDE RECORDS SUMMARY | 2025-06-06 11:43 | XMS_ITS | Encounter Summary ---
Author Organization [employer] ([place], [place], [place], [place]) Address [address] [place] [address] Care Team Providers Care Set Up Inspector Name Role Phone Unavailable Primary Care Provider Unavailabl e Encounter Details Date Type Department Care Team (Late st Contact Info) Description 10/29/2019 Transcribed Document [facility] [place] [address] [place] [address] ProviderPrasanth MD [address] [place] [address] Social History Tobacco Use Types Packs/Day Years Used Date Smoking Tobacco: Never Assessed Sex and Gender Information Value Date Recorded Sex Assigned at Not on file Legal Sex Male 6:49 PM CDT Gender Identity Not on file Sexual Orientation Not on file documented as of this encounter Miscellaneous Notes * Cerner Conversion Note - Prasanth ProviderMD - 10/29/2019 8:11 AM CUSTOMER ADVOCATE [facility] Main OR PACU Summary Primary Physician: MARK HAIRSTON MD-CAT Finalized Date/Time: 10/29/19 11:47:09 Pt. Name: SHIRA GARZA HORACIO /Sex: 1935 Male Med Rec #: [id number] Physician: MARK HAIRSTON MD-CAT Financial #: [id number] Pt. Type: I Room/Bed: [facility]/1 Admit/Disch: 10/29/19 07:03:00 - Institution: [facility] Main OR PACU I Case Times Entry [...]
--- OUTSIDE RECORDS SUMMARY | 2025-06-06 11:43 | XMS_ITS | Encounter Summary ---
Author Organization [employer] ([place], [place], [place], [place]) Address [address] [place] [address] Care Team Providers Care Numerical Control Machine Machinist Name Role Phone Unavailable Primary Care Provider Unavailabl e Encounter Details Date Type Department Care Team (Late st Contact Info) Description 08/05/2020 Transcribed Document [facility] [place] [address] [place] [address] ProviderPrasanth MD [address] [place] [address] Social History Tobacco Use Types [...] On: 08/05/2020 17:35 EDT by MARYBETH MORAN Rn-Administrative Officer Initial Assessment I Previously Documented Living Environment [...] Listed? : Yes Medical Durable Power of Taxi Truck Driver Name : Legal Guardian : No MARYBETH MORAN Rn-Administrative Officer - 08/05/2020 17:35 EDT Initial Assessment II Sensory and Motor Deficits : None, Weakness Current Home Treatments and Equipment : None MARYBETH MORAN Rn-Administrative Officer - 08/05/2020 17:35 EDT Discharge Needs I Anticipated Discharge Date : 08/06/2020 EDT Anticipated Discharge To, CM : Home with family care Current Home Treatment/Equipment : Current Home Treatment/Equipment No qualifying data available. Post Acute/Home Treatments : None Documentation Status Complete : Yes MARYBETH MORAN Rn-Administrative Officer - 08/05/2020 17:35 EDT Discharge Needs II Professional Skilled Services : Professional Skilled Services No qualifying data available. Needs Assistance with Transportation : No Discharge Options Discussed with Patient : Discharge transportation, Outpatient services MARYBETH MORAN Rn-Administrative Officer - 08/05/2020 17:35 EDT Narrative Note Narrative Note : Patient is I-ADL, will drive home, anticipate dc tomorrow with Eliquis or coumadin. MARYBETH MORAN Rn-Administrative Officer - 08/05/2020 17:35 EDT documented in this encounter Plan of Treatment Not on file documented as of this encounter Visit Diagnoses Not on filedocumented in this encounter
--- OUTSIDE RECORDS SUMMARY | 2025-06-06 11:43 | XMS_ITS | Encounter Summary ---
Author Organization [employer] ([place], [place], [place], [place]) Address [address] [place] [address] Care Team Providers Care Heater Engineer Helper Name Role Phone Unavailable Primary Care Provider Unavailabl e Encounter Details Date Type Department Care Team (Late st Contact Info) Description 08/06/2020 Transcribed Document [facility] [place] [address] [place] [address] ProviderPrasanth MD [address] [place] [address] Social History Tobacco Use Types [...] On: 08/06/2020 9:04 EDT by ALVINA GIVENS RN-Bulk Plant Supervisor Final Discharge Planning Discharge Arrangements : Patient [...] : Yes Discharge To Care Management : Home/Residential/[facility] or Self Care -01 ALVINA GIVENS, RN-Bulk Plant Supervisor - 08/06/2020 9:04 EDT Final Narrative Note Final Narrative Note : pt will dc home. was given eliquis card/coupon for free 30 day trial. no further cm needs. ALVINA GIVENS RN-Bulk Plant Supervisor - 08/06/2020 9:04 EDT Electronically signed by Carla Shelton Conversion Painter And Body Mechanic Apprentice Cerner at 01/26/2023 8:57 PM CDT documented in this encounter Plan of Treatment Not on file documented as of this encounter Visit Diagnoses Not on filedocumented in this encounter
--- OUTSIDE RECORDS SUMMARY | 2025-06-06 11:43 | XMS_ITS | Encounter Summary ---
Author Organization [employer] ([place], [place], [place], [place]) Address [address] [place] [address] Care Team Providers Care Tinsmith Helper Name Role Phone Unavailable Primary Care Provider Unavailabl e Encounter Details Date Type Department Care Team (Late st Contact Info) Description 10/26/2019 Transcribed Document [facility] [place] [address] [place] [address] ProviderPrasanth MD [address] [place] [address] Social History Tobacco Use Types Packs/Day Years Used Date Smoking Tobacco: Never Assessed Sex and Gender Information Value Date Recorded Sex Assigned at Not on file Legal Sex Male 6:49 PM CDT Gender Identity Not on file Sexual Orientation Not on file documented as of this encounter Miscellaneous Notes * Cerner Conversion Note - Historical ProviderMD - 10/26/2019 4:21 PM FARROWING WORKER Education-General Entered On: 10/30/2019 4:52 EST Performed [...]
--- OUTSIDE RECORDS SUMMARY | 2025-06-06 11:43 | XMS_ITS | Encounter Summary ---
Author Organization [employer] ([place], [place], [place], [place]) Address [address] [place] [address] Care Team Providers Care Chief Legal Officer Name Role Phone Unavailable Primary Care Provider Unavailabl e Encounter Details Date Type Department Care Team (Late st Contact Info) Description 10/29/2019 Transcribed Document [facility] [place] Family Medicine [address] [place] [address] ProviderPrasanth MD [address] [place] [address] Social History Tobacco Use Types Packs/Day Years Used Date Smoking Tobacco: Never Assessed Sex and Gender Information Value Date Recorded Sex Assigned at Not on file Legal Sex Male 6:49 PM CDT Gender Identity Not on file Sexual Orientation Not on file documented as of this encounter Miscellaneous Notes * Cerner Conversion Note - Prasanth Sanchez MD - 10/29/2019 10:20 AM TIRE SETTER DATE OF PROCEDURE: 10/29/2019 SURGEON: Michael Fontana [...] that, we were able to place a 6-Bolivian sheath into the right common femoral artery. Angiography revealed an appropriate sheath size and position for a large sheath insertion. A guidewire was then placed into the right common femoral artery and a 6-Bolivian sheath was then subsequently removed. A single Perclose was then deployed in a pre-close fashion and the sheath was then up sized to an 8-Bolivian. A 6-Bolivian sheath was then also inserted into the left common femoral vein and another 6-Bolivian sheath was placed in the left common femoral artery. A 5-Bolivian transvenous pacemaker was inserted through the venous sheath and was advanced under fluoroscopic guidance to the right ventricular free wall. Pacing capture was confirmed. A 5-Bolivian pigtail catheter was then advanced through the left common femoral arterial sheath and was positioned in the right coronary cusp. Supravalvular aortography was then performed. Coplanar view was confirmed. Amplatz Extra Stiff wire was then placed into the 8-Bolivian right femoral arterial sheath and was advanced. The 8-Bolivian right femoral arterial sheath was then removed, and after dilatation of the tissue tract, a 16-Bolivian Mancia eSheath was inserted without difficulty. This sheath was then secured to the skin using silk suture. Heparin was then also administered to achieve a therapeutic ACT. Over the Amplatz Extra Stiff wire, a 6-Bolivian AL1 diagnostic catheter was advanced and a [...] wire and the Perclose was tightened. The 6-Bolivian sheath from the left common femoral artery [...] to the recovery room in stable condition. /[id number] MD DARREN Caro/ASHLEY / HRM / MODL /[id number] CC: MD Jason Caro MD Ryan Waddles, MD Electronically signed by [facility], [facility] Conversion Equipment Cleaner And Tester Cerner at 01/26/2023 8:51 PM CDT documented in this encounter Plan of Treatment Not on file documented as of this encounter Visit Diagnoses Not on filedocumented in this encounter
--- OUTSIDE RECORDS SUMMARY | 2025-06-06 11:43 | XMS_ITS | Encounter Summary ---
Author Organization [employer] ([place], [place], [place], [place]) Address [address] [place] [address] Care Team Providers Care Collect On Delivery Clerk Name Role Phone Unavailable Primary Care Provider Unavailabl e Encounter Details Date Type Department Care Team (Late st Contact Info) Description 06/04/2021 Transcribed Document [facility] [place] Family Medicine [address] [place] [address] ProviderPrasanth MD [address] [place] [address] Social History Tobacco Use Types [...]
--- OUTSIDE RECORDS SUMMARY | 2025-06-06 11:43 | XMS_ITS | Encounter Summary ---
Author Organization [employer] ([place], [place], [place], [place]) Address [address] [place] [address] Care Team Providers Care Retail Link Analyst Name Role Phone Unavailable Primary Care Provider Unavailabl e Encounter Details Date Type Department Care Team (Late st Contact Info) Description 06/03/2021 Transcribed Document [facility] [place] Family Medicine formerly [facility] [place] [address] ProviderPrasanth MD [address] [place] [address] Social History Tobacco Use Types [...] Reason for Discharge : Other: Pt at [facility]. Discharged to, Therapy : Other: Pt staying [...] CAYLA FINN, PT - 06/03/2021 13:33 EDT Electronically signed by Carla Shelton Conversion Manager Of Selection And Assessment Cerner at 01/26/2023 8:55 PM CDT documented in this encounter Plan of Treatment Not on file documented as of this encounter Visit Diagnoses Not on filedocumented in this encounter
--- OUTSIDE RECORDS SUMMARY | 2025-06-06 11:43 | XMS_ITS | Encounter Summary ---
Author Organization [employer] ([place], [place], [place], [place]) Address [address] [place] [address] Care Team Providers Care Lead Operator Name Role Phone Unavailable Primary Care Provider Unavailabl e Encounter Details Date Type Department Care Team (Late st Contact Info) Description 10/29/2019 Transcribed Document [facility] [place] [address] [place] [address] ProviderPrasanth MD [address] [place] [address] Social History Tobacco Use Types Packs/Day Years Used Date Smoking Tobacco: Never Assessed Sex and Gender Information Value Date Recorded Sex Assigned at Not on file Legal Sex Male 6:49 PM CDT Gender Identity Not on file Sexual Orientation Not on file documented as of this encounter Miscellaneous Notes * Cerner Conversion Note - Prasanth ProviderMD - 10/29/2019 7:03 AM SUPERVISOR ABATTOIR Admission History, Adult Entered On: 10/29/2019 12:13 [...] Ambulatory Legal Guardian : No Support Person/Patient Lead Ramp Service Man : Yes Support Person/Pt Rep Name : Rosa Elena Cormier- spouse Support Person/Pt Rep Contact Information : [phone] home Want Family/Rep/Phys Notified of Admit : No Emergency Contact #1 : Rosa Elena Cormier Emergency Contact #1 Emergency Contact #1 Relationship : Emergency Contact #2 : na Emergency Contact #2 Phone Number : na Emergency Contact #2 Relationship : na Information Obtained From : Patient Primary Language : Russian Preferred Communication Mode : Verbal Communication Barrier [...] Scale Risk Level : 0-24 Low Risk [place] Fall Interventions : Adequate lighting, Assistive devices [...] Source : Measured Height Entry Format : Ida Height, Feet : 5 ft(Converted to: 152 cm, 60 Inch) Height, Inches : 9 Inch(Converted to: 0 ft 9 Inch, 22.86 cm) Clinical Height : 175.26 cm Weight Source : Standing scale Weight Entry Format : Ida Clinical Dosing Weight : 92.5 kg Weight, Pounds : 203 lb Weight, Ounces : 8 oz Body Surface Area (BSA) : 2.08 m2 Body Mass Index : 30.1 kg/m2 (HI) Cornelia Body Weight : 70 kg Rosalee Barrios [...] Rosalee Barrios RN - 10/29/2019 12:03 EST [place] Suicide Severity Rating Scale (C-SSRS) CSSRS Past [...]
--- OUTSIDE RECORDS SUMMARY | 2025-06-06 11:43 | XMS_ITS | Encounter Summary ---
Author Organization [employer] ([place], [place], [place], [place]) Address [address] [place] [address] Care Team Providers Care Store Team Member Name Role Phone Unavailable Primary Care Provider Unavailabl e Encounter Details Date Type Department Care Team (Late st Contact Info) Description 10/29/2019 Transcribed Document [facility] Cardiology [address] [place] [address] Jamshid Holman MD [address] [facility] [address] [place] [id number] Social History Tobacco Use Types Packs/Day Years [...] 2. Using a micropuncture access needle, a 4-Polish sheath was inserted in the right common femoral artery. Angiography revealed appropriate sheath position and arterial size for a large sheath insertion. A 6-Polish sheath was inserted. The 6-Polish was exchanged for a single Perclose deployed in a pre-close technique and the sheath upsized to 8-Polish. Of note, the first two Perclose catheters missed but a wire was inserted and a third Perclose took appropriately. A 6-Polish sheath was inserted in the left femoral artery and a 6-Polish sheath was inserted in the left femoral vein. Through the venous sheath, a 5-Polish transvenous pacemaker was inserted and advanced to the right ventricular free wall. Pacing capture was confirmed. Through the 6-Polish arterial sheath, a 5-Polish pigtail catheter was inserted and advanced to the right coronary cusp. Supravalvular aortography was performed. 3. The 8-Polish sheath was exchanged over a support wire for a 16-Polish Mancia eSheath which was secured with suture. Heparin was administered to achieve a therapeutic ACT. 4. Through the Mancia sheath, a 6-Polish AL1 diagnostic catheter and a straight-tipped 0.035 [...] pacing, the valve was deployed with prompt samaritan of stable hemodynamics and rhythm. The delivery [...] Perclose was tightened with good hemostasis. A 6-Polish arterial sheath was removed and a Mynx closure was deployed with good hemostasis. The venous sheath was removed and manual compression was held with good hemostasis. 7. The patient was transferred to the postanesthesia care unit in stable condition. 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 /[id number] MD LAKISHA Calixto/ASHLEY / LAKISHA / MODL /[id number] documented in this encounter Plan of Treatment Not on file documented as of this encounter Visit Diagnoses Not on filedocumented in this encounter
--- OUTSIDE RECORDS SUMMARY | 2025-06-06 11:43 | XMS_ITS | Encounter Summary ---
Author Organization [employer] ([place], [place], [place], [place]) Address [address] [place] [address] Care Team Providers Care Welfare Specialist Name Role Phone Unavailable Primary Care Provider Unavailabl e Encounter Details Date Type Department Care Team (Late st Contact Info) Description 08/06/2020 Transcribed Document [facility] [place] [address] [place] [address] ProviderPrasanth MD [address] [place] [address] Social History Tobacco Use Types [...]
--- OUTSIDE RECORDS SUMMARY | 2025-06-06 11:43 | XMS_ITS | Encounter Summary ---
Author Organization [employer] ([place], [place], [place], [place]) Address [address] [place] [address] Care Team Providers Care Steward/Stewardess Club Car Name Role Phone Unavailable Primary Care Provider Unavailabl e Encounter Details Date Type Department Care Team (Late st Contact Info) Description 06/04/[address] [facility] [place] Family Medicine [address] [place] [address] ProviderPrasanth MD [address] [place] [address] Social History Tobacco Use Types [...] is also called a myocardial infarction, or FL. If you think you are having a [...] these instructions at home: Medicines ??? Take pbme-mwh-ivdkssc and prescription medicines only as told by [...] Reviewed: 01/07/2020 Elsevier Patient Education ? 2019 [employer] Coronary Artery Disease, Male Coronary artery disease (CAD) is a condition in which the arteries that lead to the heart (coronary arteries) become narrow or blocked. The narrowing or blockage can lead to decreased blood flow to the heart. Prolonged reduced blood flow can cause a heart attack (myocardial infarction or FL). This condition may also be called coronary [...] these instructions at home: Medicines ??? Take lvam-vju-axfzblv and prescription medicines only as told by [...] Reviewed: 06/05/2019 Elsevier Patient Education ? 2019 [employer] Hematology Bleeding Precautions When on Anticoagulant [...] blood clot. Taking other medicines ??? Take ynwh-yyh-lcuzuve and prescriptions medicines only as told by your health care provider. ??? Do not take lwgc-vff-phestme NSAIDs, including aspirin and ibuprofen, while you [...] use toothpicks. ??? Use a soft-bristled toothbrush. [place] your teeth gently. ??? Always wear shoes [...] you: ??? Work with a diet and dairy nutritionist (dietitian) to make an eating plan. Do [...] provider. Document Revised: 01/16/2020 Document Reviewed: 12/13/2017 [employer] Patient Education ? 2019 [employer] Neurology Transient Ischemic Attack A transient [...] these instructions at home: Medicines ??? Take hnif-oks-iktswhl and prescription medicines only as told by [...] provider. Document Revised: 06/22/2019 Document Reviewed: 12/28/2017 [employer] Patient Education ? 2020 [employer]. Preventive Health Venous Thromboembolism Prevention Venous thromboembolism [...] Control and Prevention: www.cdc.gov ??? Citizen Of [place] Heart Association: www.heart.org Get help right away [...] provider. Document Revised: 01/15/2020 Document Reviewed: 12/04/2019 [employer] Patient Education ? 2020 [employer] documented in this encounter Plan of Treatment Not on file documented as of this encounter Visit Diagnoses Not on filedocumented in this encounter
--- OUTSIDE RECORDS SUMMARY | 2025-06-06 11:43 | XMS_ITS | Encounter Summary ---
Author Organization [employer] ([place], [place], [place], [place]) Address [address] [place] [address] Care Team Providers Care Product Development Technician Name Role Phone Unavailable Primary Care Provider Unavailabl e Encounter Details Date Type Department Care Team (Late st Contact Info) Description 08/06/2020 Transcribed Document [facility] [place] Family Medicine [address] [place] [address] ProviderPrasanth MD [address] [place] [address] Social History Tobacco Use Types [...] nitroglycerin and presentation to outside ER at [facility] in [place]. Patient was subsequently transferred here for further [...] tablet 5 mg = 1 Tab, Oral, [id number] hydroCHLOROthiazide-lisinopril 12.5 mg-20 mg oral tablet 1 [...] Ratio 0.9 LOW 08/05/2020 19:33 Bun/Creatinine 22.5 SC 08/05/2020 19:33 Sodium Level 139 mmol/L 08/05/2020 09:53 Potassium Level 3.8 mmol/L 08/05/2020 09:53 Chloride Level 107 mmol/L 08/05/2020 09:53 Carbon Dioxide Level 30 mmol/L 08/05/2020 09:53 Anion Gap 6 LOW 08/05/2020 10:00 Alk Phos 62 Units/Liter 08/05/2020 09:53 ALT 25 Units/Liter 08/05/2020 09:53 AST 27 Units/Liter 08/05/2020 09:53 Blood Urea Nitrogen 27 mg/dL SC 08/05/2020 09:59 Glucose Level 106 mg/dL 08/05/2020 09:53 Albumin Level 3.2 Gram/dL LOW 08/05/2020 10:00 Bilirubin Total 0.5 mg/dL 08/05/2020 09:53 Calcium Level 8.6 mg/dL 08/05/2020 09:53 Coagulation Results (Current Encounter/Past 24 Hours) PT 37.0 Second(s) SC 08/06/2020 04:25 INR 3.5 SC 08/06/2020 04:25 Creatinine Clearance (Current Encounter/Past 24 Hours) Creatinine Level 1.20 mg/dL 08/05/2020 09:53 Bun/Creatinine 22.5 SC 08/05/2020 09:53 Estimated Creatinine Clearance 46.64 mL/Min [...] CR Chest 1 Vw Port; Neha Leung, Phlebotomy Services Representative 08/04/2020 12:54 EDT [2] [facility]; WINNIE AYALA MD-CAR 08/04/2020 13:14 EDT [3] Admission H & P; CJ AVITIA MD-INT 08/04/2020 15:01 EDT Electronically signed by Nikita [facility] Conversion Bulldozer Operator Cerner at 01/26/2023 9:11 PM CDT documented in this encounter Plan of Treatment Not on file documented as of this encounter Visit Diagnoses Not on filedocumented in this encounter
--- OUTSIDE RECORDS SUMMARY | 2025-06-06 11:43 | XMS_ITS | Encounter Summary ---
Author Organization [employer] ([place], [place], [place], [place]) Address [address] [place] [address] Care Team Providers Care Offshore Diver Name Role Phone Unavailable Primary Care Provider Unavailabl e Encounter Details Date Type Department Care Team (Late st Contact Info) Description 06/03/2021 Transcribed Document [facility] [place] [address] [place] [address] ProviderPrasanth MD [address] [place] [address] Social History Tobacco Use Types Packs/Day Years Used Date Smoking Tobacco: Never Assessed Sex and Gender Information Value Date Recorded Sex Assigned at Not on file Legal Sex Male 6:49 PM CDT Gender Identity Not on file Sexual Orientation Not on file documented as of this encounter Miscellaneous Notes * Cerner Conversion Note - Historical ProviderMD - 06/03/2021 11:03 AM CDT PRODUCT DEVELOPMENT Attempt to Treat Entered On: 06/03/2021 11:03 EDT Performed On: 06/03/2021 11:03 EDT by JANES WHITTINGTON SLP Attempt to Treat Inability to Treat Comment : Further cognitive evaluation not warranted. Notification : JANES LAM SLP - 06/03/2021 11:03 EDT documented in this encounter Plan of Treatment Not on file documented as of this encounter Visit Diagnoses Not on filedocumented in this encounter
--- OUTSIDE RECORDS SUMMARY | 2025-06-06 11:43 | XMS_ITS | Encounter Summary ---
Author Organization [employer] ([place], [place], [place], [place]) Address [address] [place] [address] Care Team Providers Care Keyboard Instrument Repairer Name Role Phone Unavailable Primary Care Provider Unavailabl e Encounter Details Date Type Department Care Team (Late st Contact Info) Description 08/06/2020 Transcribed Document [facility] [place] Family Medicine [address] [place] [address] ProviderPrasanth MD [address] [place] [address] Social History Tobacco Use Types [...]
--- OUTSIDE RECORDS SUMMARY | 2025-06-06 11:43 | XMS_ITS | Encounter Summary ---
Author Organization [employer] ([place], [place], [place], [place]) Address [address] [place] [address] Care Team Providers Care Sales Correspondence Clerk Name Role Phone Unavailable Primary Care Provider Unavailabl e Encounter Details Date Type Department Care Team (Late st Contact Info) Description 06/03/2021 Transcribed Document [facility] [place] Family Medicine [address] [place] [address] ProviderPrasanth MD [address] [place] [address] Social History Tobacco Use Types [...]
--- OUTSIDE RECORDS SUMMARY | 2025-06-06 11:43 | XMS_ITS | Encounter Summary ---
Author Organization [employer] ([place], [place], [place], [place]) Address [address] [place] [address] Care Team Providers Care Administrative Support Clerk Name Role Phone Unavailable Primary Care Provider Unavailabl e Encounter Details Date Type Department Care Team (Late st Contact Info) Description 08/06/2020 Transcribed Document [facility] [place] [address] [place] [address] ProviderPrasanth MD [address] [place] [address] Social History Tobacco Use Types [...] Sanchez MD - 08/06/2020 1:08 PM CDT [facility] [place] [address] SHIRA GARZA :1935 Visit Time:08/06/2020 Your [...] Comments f/y tavr with HALT Where: [address] [facility] [address] [place] [address]- Business (1) Follow Up with LACIE ALVA When 08/21/2020 11:15 AM EST Comments 08/21 @ 11:15am Where: [address] [place] [address]- Business (1) Follow Up with KARON MCWILLIAMS When Within 1 week Comments f/u aov stenosis and troponin leak/chestpain Call for follow up appointment Where: [address] [facility] [place] [address] Business (1) Medications What How Much When Instructions Next Dose apixaban (Eliquis 5 mg oral tablet) 1 Tablet(s) Oral Interval Every 12 Hours START AM Pickup at [facility] isosorbide mononitrate (isosorbide mononitrate 20 mg oral tablet) 1 Tablet(s) Oral Two Times A Day Pickup at [facility] aspirin 81 Milligram(s) Every Day atorvastatin (atorvastatin 20 mg oral tablet) 1 Tablet(s) Oral Tuesday hydrochlorothiazide-lisinopril (hydroCHLOROthiazide-lisinopril 12.5 mg-20 mg oral tablet) 1 Tablet(s) Oral Every Day multivitamin 1 Tablet(s) Oral Every Day nitroglycerin (Nitrostat 0.4 mg sublingual tablet) 1 Tablet(s) SubLINgual Every 5 minutes as needed for as needed for chest pain Pharmacy Information [facility]: [address] [address] [phone] Take your medications faithfully. Do NOT skip [...] The two forms of aspirin are: ? Vzw-fwdsmef-tzzhzi.This type of aspirin does not have a coating and is absorbed quickly. This type of aspirin also comes in a chewable form. ? Enteric-coated. This type of aspirin has a coating that releases the medicine very slowly. Enteric-coated aspirin might cause less stomach upset than vto-qcqyjye-oldpbu aspirin. This type of aspirin should not [...] Reviewed: 07/27/2018 Elsevier Patient Education ?? 2020 [employer]. Acute Coronary Syndrome Acute coronary syndrome (ACS) [...] a heart-healthy eating plan. Medicines ??? Take qlyf-gvg-lmscueg and prescription medicines only as told by [...] Reviewed: 10/08/2019 Elsevier Patient Education ?? 2020 [employer] Mitral Valve Replacement Mitral valve replacement [...] including vitamins, herbs, eye drops, creams, and bgze-dlt-idmyalb medicines. ??? Any problems you or family [...] tells you to take them. ? Taking fehd-vor-oulukco medicines, vitamins, herbs, and supplements. Staying hydrated [...] This may be done using stitches (sutures), margrte, skin glue, or adhesive strips. ??? A [...] Reviewed: 06/19/2019 Elsevier Patient Education ?? 2020 [employer] Venous Thromboembolism Prevention Venous thromboembolism (VTE) [...] for Disease Control and Prevention: www.cdc.gov ??? [place] Heart Association: www.heart.org Get help right away [...] Reviewed: 12/04/2019 Elsevier Patient Education ?? 2020 [employer] Emergency Awareness and Preventative Care STROKE [...] Assistance with quitting is available by contacting 2-125-XZQQNOW. This is a free resource providing counseling, [...] range between ( 0.0 and 7.0 ) [place] #: 0.56 K/uL -- Normal range between ( 0.16 and 1.00 ) Eos #: 0.05 x10(3)/uL -- Normal range between ( 0.00 and 0.80 ) [place] %: 10.1 % -- Normal range between [...] /LPF Urine Bilirubin Dipstick: Negative Urine Specific [place]: 1.023 -- Normal range between ( 1.005 [...] was given the opportunity to ask questions. Patient/Vice President Talent Management Name: Patient/Vice President Talent Management Signature: Relationship to Patient: Clinician/Hospital Vice President Talent Management Signature: Date: Electronically signed by Nikita, [facility] Conversion Supervisor Esters And Emulsifiers Cerner at 01/26/2023 8:59 PM CDT documented in this encounter Plan of Treatment Not on file documented as of this encounter Visit Diagnoses Not on filedocumented in this encounter
--- OUTSIDE RECORDS SUMMARY | 2025-06-06 11:43 | XMS_ITS | Encounter Summary ---
Author Organization [employer] ([place], [place], [place], [place]) Address [address] [place] [address] Care Team Providers Care Cafeteria Counter Attendant Name Role Phone Unavailable Primary Care Provider Unavailabl e Encounter Details Date Type Department Care Team (Late st Contact Info) Description 06/04/2021 Transcribed Document [facility] [place] Family Medicine Replaced by [facility] [place] [address] ProviderPrasanth MD Replaced by [facility] [address] Social History Tobacco Use Types [...] report. Signature Line Final Dictated by: JULISSA EPRKINS Dictated DT/TM: 06/02/2021 11:43 am [4] Reason [...] reliability. This morning he tried to call [facility] cardiology to report chest discomfort and [...] tablet 5 mg = 1 Tab, Oral, [id number] hydroCHLOROthiazide-lisinopril 12.5 mg-20 mg oral tablet 1 [...] [1] CR Chest 2 Vws; Kezia Louise, Missile Pad Mechanic 06/02/2021 10:51 EDT [2] [facility]; LEE ANN CELESTE MD-CAR 06/02/2021 13:01 EDT [3] VASCULAR [facility]; LEE ANN CELESTE MD-CAR 06/02/2021 13:01 EDT [4] CT Head WO; CAN HEALY 06/02/2021 10:53 EDT [5] Admission H & P; CJ AVITIA MD-INT 06/02/2021 14:11 EDT [6] Hospitalist Progress Note - [facility]; JC AVITIA MD-INT 06/03/2021 13:11 EDT Electronically signed by Nikita [facility] Conversion Packaging Line Operator Cerner at 01/26/2023 8:52 PM CDT documented in this encounter Plan of Treatment Not on file documented as of this encounter Visit Diagnoses Not on filedocumented in this encounter
--- OUTSIDE RECORDS SUMMARY | 2025-06-06 11:43 | XMS_ITS | Encounter Summary ---
Author Organization [employer] ([place], [place], [place], [place]) Address [address] [place] [address] Care Team Providers Care Hair Or Beauty Salon Assistant Name Role Phone Unavailable Primary Care Provider Unavailabl e Encounter Details Date Type Department Care Team (Late st Contact Info) Description 08/05/2020 Transcribed Document [facility] [place] [address] [place] [address] ProviderPrasanth MD [address] [place] [address] Social History Tobacco Use Types [...] - Medical Apixaban 5 mg, Oral, Tab, [id number], Routine, Start 08/06/20 7:00:00 EDT, 08/06/20 7:00:00 EDT (CJ AVITIA) Medications aspirin, 81 mg= 1 Tab, Oral, Daily Eliquis, 5 mg= 1 Tab, Oral, [id number] hydroCHLOROthiazide, 12.5 mg= 0.5 Tab, Oral, Daily [...]
--- OUTSIDE RECORDS SUMMARY | 2025-06-06 11:43 | XMS_ITS | Encounter Summary ---
Author Organization [employer] ([place], [place], [place], [place]) Address [address] [place] [address] Care Team Providers Care Frame Cleaner Name Role Phone Unavailable Primary Care Provider Unavailabl e Encounter Details Date Type Department Care Team (Late st Contact Info) Description 06/04/2021 Transcribed Document [facility] [place] [address] [place] [address] ProviderPrasanth MD [address] [place] [address] Social History Tobacco Use Types [...] Sanchez MD - 06/04/2021 11:25 AM CDT [facility] [place] [address] KAYLA SHIRA HORACIO :1935 Visit Time:06/02/2021 [...] discharge instructions with you Where: [address] [place] [address]- Follow Up with ABEBA HOOKS When 06/08/2021 03:15 PM EDT Comments Appointment has been made Where: [address] [place] [address]- Business (1) Medications What How Much When Instructions Next Dose apixaban (Eliquis 5 mg oral tablet) 1 Tablet(s) Oral Interval Every 12 Hours Pickup at [facility] this evening aspirin (aspirin 81 mg oral tablet, chewable) 1 Tablet(s) Oral Every Day Pickup at [facility] tomorrow atorvastatin (Lipitor 20 mg oral tablet) 1 Tablet(s) Oral At Bedtime Duration: 30 Day(s) Please Note: Your Lipitor dose has changed to 20 mg oral at bedtime Pickup at [facility] at bedtime metoprolol (Metoprolol Succinate ER 25 mg oral tablet, extended release) 1 Tablet(s) Oral Every Day tomorrow hydrochlorothiazide-lisinopril (hydroCHLOROthiazide-lisinopril 12.5 mg-20 mg oral tablet) 1 Tablet(s) Oral Every Day tomorrow multivitamin 1 Tablet(s) Oral Every Day tomorrow Pharmacy Information [facility]: [address] [facility] [address] [place], [place] [id number] [phone] Take your medications faithfully. Do NOT skip [...] blood clot. Taking other medicines ??? Take kdbe-hdw-rzpnpgu and prescriptions medicines only as told by your health care provider. ??? Do not take nynt-ngb-qhxsnsq NSAIDs, including aspirin and ibuprofen, while you [...] use toothpicks. ??? Use a soft-bristled toothbrush. [place] your teeth gently. ??? Always wear shoes [...] you: ??? Work with a diet and nutrition consultant (dietitian) to make an eating plan. Do [...] provider. Document Revised: 01/16/2020 Document Reviewed: 12/13/2017 Tragara Patient Education ?? 2020 Tragara Inc. Transient Ischemic Attack A transient ischemic [...] these instructions at home: Medicines ??? Take khbl-icx-bmgtswd and prescription medicines only as told by [...] provider. Document Revised: 06/22/2019 Document Reviewed: 12/28/2017 Tragara Patient Education ?? 2020 [employer]anSiC. Heart Attack A heart attack occurs when blood and oxygen supply to the heart is cut off. A heart attack causes damage to the heart that cannot be fixed. A heart attack is also called a myocardial infarction, or SC. If you think you are having a [...] these instructions at home: Medicines ??? Take uzon-rwc-kvzxvpn and prescription medicines only as told by [...] provider. Document Revised: 01/07/2020 Document Reviewed: 01/07/2020 ElsePGA TOUR Superstore Patient Education ?? 2020 Tragara Inc. Coronary Artery Disease, Male Coronary artery disease (CAD) is a condition in which the arteries that lead to the heart (coronary arteries) become narrow or blocked. The narrowing or blockage can lead to decreased blood flow to the heart. Prolonged reduced blood flow can cause a heart attack (myocardial infarction or SC). This condition may also be called coronary [...] these instructions at home: Medicines ??? Take rmxj-cyb-mfzbbdf and prescription medicines only as told by [...] provider. Document Revised: 06/15/2019 Document Reviewed: 06/05/2019 ElsePGA TOUR Superstore Patient Education ?? 2020 Tran[employer]C. Venous Thromboembolism Prevention Venous thromboembolism (VTE) is [...] for Disease Control and Prevention: www.cdc.gov ??? [place] Heart Association: www.heart.org Get help right away [...] provider. Document Revised: 01/15/2020 Document Reviewed: 12/04/2019 Tragara Patient Education ?? 2020 TranSiC. aspirin (oral) ( pir in) Arthritis Pain, Aspi-Cor, Aspir-Low, [place] Plus, Durlaza, Ecotrin, Miniprin, Vazalore What is the most important information I should know about aspirin? Aspirin can cause Ladan's syndrome, a serious and sometimes fatal condition in children. What is aspirin? Aspirin is a salicylate (pf-HOX-bt-ate) that is used to treat pain, and [...] may report side effects to FDA at 3-879-MFW-5186. What other drugs will affect aspirin? Ask [...] drugs may affect aspirin, including prescription and rcuh-jnh-rkopmxl medicines, vitamins, and herbal products. Not all [...] to ensure that the information provided by [employer]. ('Multum') is accurate, up-to-date, and complete, but no guarantee is made to that effect. Drug information contained herein may be time sensitive. [employer] information has been compiled for use by healthcare practitioners and consumers in the [place] and therefore [employer] does not warrant that uses outside of the [place] are appropriate, unless specifically indicated otherwise. [employer] drug information does not endorse drugs, diagnose patients or recommend therapy. [employer] drug information is an informational resource designed [...] effective or appropriate for any given patient. [employer] does not assume any responsibility for any aspect of healthcare administered with the aid of information [facility] provides. The information contained herein is not intended to cover all possible uses, directions, precautions, warnings, drug interactions, allergic reactions, or adverse effects. If you have questions about the drugs you are taking, check with your doctor, nurse or pharmacist. Copyright 2652-5846 [employer]. Version: 16.03. Revision Date: 04/06/2021. atorvastatin (a [...] may report side effects to FDA at 1-046-GCQ-6932. What other drugs will affect atorvastatin? Certain [...] may affect atorvastatin. This includes prescription and qtxv-vir-nwppdsl medicines, vitamins, and herbal products. Not all [...] to ensure that the information provided by [employer]. ('Multum') is accurate, up-to-date, and complete, but no guarantee is made to that effect. Drug information contained herein may be time sensitive. [employer] information has been compiled for use by healthcare practitioners and consumers in the [place] and therefore [employer] does not warrant that uses outside of the [place] are appropriate, unless specifically indicated otherwise. [employer]'s drug information does not endorse drugs, diagnose patients or recommend therapy. [employer] drug information is an informational resource designed [...] effective or appropriate for any given patient. [facility] does not assume any responsibility for any aspect of healthcare administered with the aid of information [facility] provides. The information contained herein is not intended to cover all possible uses, directions, precautions, warnings, drug interactions, allergic reactions, or adverse effects. If you have questions about the drugs you are taking, check with your doctor, nurse or pharmacist. Copyright 6883-8582 [facility]. Version: 22.02. Revision Date: 11/18/2020. apixaban (a PIX a ban) Merissa What is the most important information I should know about apixaban? Apixaban increases your risk of severe or fatal bleeding, especially if you take certain medicines at the same time (including some vucy-eje-tihyzdr medicines). It is very important to tell [...]
--- OUTSIDE RECORDS SUMMARY | 2025-06-06 11:43 | XMS_ITS | Encounter Summary ---
Author Organization [employer] ([place], [place], [place], [place]) Address [address] [place] [address] Care Team Providers Care Neckties Painter Name Role Phone Unavailable Primary Care Provider Unavailabl e Encounter Details Date Type Department Care Team (Late st Contact Info) Description 10/29/2019 Transcribed Document [facility] [place] [address] [place] [address] ProviderPrasanth MD [address] [place] [address] Social History Tobacco Use Types Packs/Day Years Used Date Smoking Tobacco: Never Assessed Sex and Gender Information Value Date Recorded Sex Assigned at Not on file Legal Sex Male 6:49 PM CDT Gender Identity Not on file Sexual Orientation Not on file documented as of this encounter Miscellaneous Notes * Cerner Conversion Note - Historical ProviderMD - 10/29/2019 9:12 AM PEDIATRIC ONCOLOGIST Education-Diabetes Topics Entered On: 10/30/2019 4:51 EST [...]
--- OUTSIDE RECORDS SUMMARY | 2025-06-06 11:43 | XMS_ITS | Encounter Summary ---
Author Organization [employer] ([place], [place], [place], [place]) Address [address] [place] [address] Care Team Providers Care Entry Level Installation Technician Name Role Phone Unavailable Primary Care Provider Unavailabl e Encounter Details Date Type Department Care Team (Late st Contact Info) Description 06/04/2021 Transcribed Document [facility] [place] [address] [place] [address] ProviderPrasanth MD [address] [place] [address] Social History Tobacco Use Types [...]
--- OUTSIDE RECORDS SUMMARY | 2025-06-06 11:43 | XMS_ITS | Encounter Summary ---
Author Organization [employer] ([place], [place], [place], [place]) Address [address] [place] [address] Care Team Providers Care Mechanical Striper Name Role Phone Unavailable Primary Care Provider Unavailabl e Encounter Details Date Type Department Care Team (Late st Contact Info) Description 09/26/2019 Transcribed Document [facility] [place] Medicine [facility] [place] [address] ProviderPrasanth MD [address] [place] [address] Social History Tobacco Use Types Packs/Day Years Used Date Smoking Tobacco: Never Assessed Sex and Gender Information Value Date Recorded Sex Assigned at Not on file Legal Sex Male 6:49 PM CDT Gender Identity Not on file Sexual Orientation Not on file documented as of this encounter Miscellaneous Notes * Cerner Conversion Note - Prasanth ProviderMD - 09/26/2019 11:20 AM INDUSTRIAL SERVICER Initial Discharge Planning Entered On: 09/26/2019 11:23 EST Performed On: 09/26/2019 11:20 EST by JAIMEE CARTAGENA Branch Manager-Top Steep Tender Initial Assessment I Previously Documented Living Environment [...] Is Guardianship Needed : No JAIMEE CARTAGENA Branch Manager-Top Steep Tender - 09/26/2019 11:20 EST Initial Assessment II Sensory and Motor Deficits : None Current Home Treatments and Equipment : None JAIMEE CARTAGENA Branch Manager-Top Steep Tender - 09/26/2019 11:20 EST Discharge Needs I Anticipated Discharge To, CM : Home independently Current Home Treatment/Equipment : Current Home Treatment/Equipment No qualifying data available. Post Acute/Home Treatments : None Documentation Status Complete : Yes JAIMEE CARTAGENA Branch Manager-Top Steep Tender - 09/26/2019 11:20 EST Discharge Needs II Professional Skilled Services : Professional Skilled Services No qualifying data available. Needs Assistance with Transportation : No Discharge Options Discussed with Patient : Discharge transportation, Home Health JAIMEE CARTAGENA Branch Manager-Top Steep Tender - 09/26/2019 11:20 EST Narrative Note Narrative [...] CM will continue to follow. JAIMEE CARTAGENA Branch Manager-Top Steep Tender - 09/26/2019 11:20 EST Electronically signed by Carla Shelton Conversion Button Decorating Machine Operator Cerner at 01/26/2023 9:01 PM CDT documented in this encounter Plan of Treatment Not on file documented as of this encounter Visit Diagnoses Not on filedocumented in this encounter
--- OUTSIDE RECORDS SUMMARY | 2025-06-06 11:43 | XMS_ITS | Encounter Summary ---
Author Organization [employer] ([place], [place], [place], [place]) Address [address] [place] [address] Care Team Providers Care Traffic Expert Name Role Phone Unavailable Primary Care Provider Unavailabl e Encounter Details Date Type Department Care Team (Late st Contact Info) Description 06/04/2021 Transcribed Document [facility] [place] [address] [place] [address] ProviderPrasanth MD [address] [place] [address] Social History Tobacco Use Types Packs/Day Years Used Date Smoking Tobacco: Never Assessed Sex and Gender Information Value Date Recorded Sex Assigned at Not on file Legal Sex Male 6:49 PM CDT Gender Identity Not on file Sexual Orientation Not on file documented as of this encounter Miscellaneous Notes * Cerner Conversion Note - Historical ProviderMD - 06/04/2021 5:00 AM CDT Chart Check - Review Order Profile Entered On: 06/04/2021 6:59 EDT Performed On: 06/04/2021 5:00 EDT by Vivien Rojas RN Chart Check Powerplans Initiated/Discontinued as Appropriate : Yes All Active Orders Reviewed : Yes Vivien Rojas RN - 06/04/2021 6:59 EDT Electronically signed by Nikita [facility] Conversion Pediatric Licensed Practical Nurse Cerner at 01/26/2023 8:53 PM CDT documented in this encounter Plan of Treatment Not on file documented as of this encounter Visit Diagnoses Not on filedocumented in this encounter
--- OUTSIDE RECORDS SUMMARY | 2025-06-06 11:44 | XMS_ITS | Encounter Summary ---
Author Organization [employer] ([place], [place], [place], [place]) Address [address] [place] [address] Care Team Providers Care Director Of Primary Care Name Role Phone Unavailable Primary Care Provider Unavailabl e Encounter Details Date Type Department Care Team (Late st Contact Info) Description 07/22/2020 Transcribed Document [facility] [place] [address] [place] [address] ProviderPrasanth MD [address] [place] [address] Social History Tobacco Use Types [...] Source : Measured Height Entry Format : [place] Height, Feet : 5 ft(Converted to: 152 cm, 60 Inch) Height, Inches : 10 Inch(Converted to: 0 ft 10 Inch, 25.40 cm) Clinical Height : 177.8 cm Weight Source : Standing scale Weight Entry Format : [place] Clinical Dosing Weight : 90.91 kg Weight, Pounds : 200 lb Body Surface Area (BSA) : 2.09 m2 Body Mass Index : 28.8 kg/m2 (HI) [place] Body Weight : 72 kg SALLY BARNETT [...] SALLY BARNETT RN - 07/22/2020 9:18 EDT [place] Suicide Severity Rating Scale (C-SSRS) CSSRS Past [...] Spouse Legal Guardian : No Support Person/Patient Wildlife Control Operator : Yes Support Person/Pt Rep Name : Rosa Elena Cormier- spouse Support Person/Pt Rep Contact Information : [phone] home Want Family/Rep/Phys Notified of Admit : No Emergency Contact #1 : Rosa Elena Emergency Contact #1 Emergency Contact #1 Relationship : spouse Emergency Contact #2 : none Emergency Contact #2 Phone Number : none Emergency Contact #2 Relationship : none Primary Language : [place] Preferred Communication Mode : Verbal Communication Barrier : None Straw Hat Brusher Needed : SALLY Lorenzo RN - 07/22/2020 [...] Scale Risk Level : 25-45 Medium Risk [place] Interventions : Adequate lighting, Assistive devices [...]
--- OUTSIDE RECORDS SUMMARY | 2025-06-06 11:44 | XMS_ITS | Encounter Summary ---
Author Organization [employer] ([place], [place], [place], [place]) Address [address] [place] [address] Care Team Providers Care Coffee Farmer Name Role Phone Unavailable Primary Care Provider Unavailabl e Encounter Details Date Type Department Care Team (Late st Contact Info) Description 12/30/2020 Transcribed Document [facility] [place] Family Medicine [address] [place] [address] ProviderPrasanth MD [address] [place] [address] Social History Tobacco Use Types [...] Sanchez MD - 12/30/2020 11:[address] [facility] [place] [address] ALEXANDREFei SHIRA HORACIO :1935 Visit [...] AM EDT Where: [address] [place] [address]- Medications What How Much When Instructions Next [...] diabetes medicines or blood thinners. ? Taking ftlj-dji-nobakro medicines, vitamins, herbs, and supplements. ? Taking [...] provider. Document Revised: 06/15/2019 Document Reviewed: 12/28/2017 [email or web address] Patient Education ?? 2020 [employer] Inc. Moderate Conscious Sedation, Adult, Care After [...] you are awake and alert. ??? Take dvtq-grp-rhghpyz and prescription medicines only as told by [...] provider. Document Revised: 09/08/2018 Document Reviewed: 01/15/2017 [email or web address] Patient Education ?? 2020 [employer] Inc. FAQ ??? Patient COVID-19 testing Why [...] all positive cases are reported through the [facility] health department and the [place] Department for Public Health. Those organizations are [...] and need to call 911, notify the air brake operator that you have, or think you [...] clean your hands with an alcohol-based hand banking teacher that contains at least 60% alcohol. Clean your hands often. ??? Wash hands: Wash your hands often with soap and water for at least 20 seconds when visibly dirty. This is especially important after blowing your nose, coughing or sneezing, and going to the bathroom, and before eating or preparing food. ??? Hand banking teacher: Use an alcohol-based hand banking teacher with at least 60% alcohol, covering all [...] and water or put them in the baker apprentice. Clean all high-touch surfaces every day. Clean [...] or body fluids on them. ??? Household governor assembler and disinfectants: Clean the area or item [...] list of disinfectants can be found here: https://www.epa.gov/pesticide-registration/vklv-v-kmzoamgqcdtak-xgw-jpifzbv-gm rs-cov-2 Emergency Awareness and Preventative Care STROKE [...] Assistance with quitting is available by contacting 4-852-LFAP-NOW. This is a free resource providing counseling, [...] was given the opportunity to ask questions. Patient/Manager Electronic Name: Patient/Manager Electronic Signature: Relationship to Patient: Clinician/Hospital Manager Electronic Signature: Date: documented in this encounter Plan of Treatment Not on file documented as of this encounter Visit Diagnoses Not on filedocumented in this encounter
--- OUTSIDE RECORDS SUMMARY | 2025-06-06 11:44 | XMS_ITS | Encounter Summary ---
Author Organization [employer] ([place], [place], [place], [place]) Address [address] [place] [address] Care Team Providers Care Manufacturer Name Role Phone Unavailable Primary Care Provider Unavailabl e Encounter Details Date Type Department Care Team (Late st Contact Info) Description 11/08/2019 Transcribed Document [facility] [place] [address] [place] [address] ProviderPrasanth MD [address] [place] [address] Social History Tobacco Use Types Packs/Day Years Used Date Smoking Tobacco: Never Assessed Sex and Gender Information Value Date Recorded Sex Assigned at Not on file Legal Sex Male 6:49 PM CDT Gender Identity Not on file Sexual Orientation Not on file documented as of this encounter Miscellaneous Notes * Cerner Conversion Note - Prasanth Sanchez MD - 11/08/2019 11:42 AM MANUAL WRITER [facility] [place] [address] ALEXANDREFei SHIRA HORACIO :1935 Visit Time:11/04/2019 [...] Appointment has been made . Where: [address] [facility] [facility] [address] [place] [phone]- Business (1) Follow Up with IRENE MAJANO When 11/15/2019 10:[address] [place]. Appointment has been made Where: [address] [place], [place] [phone]- Business (1) Follow Up with LACIE ALVA When Within 3 months Comments Call for follow up appointment near the end of December. Where: [address] [place] [address] SECTION OF CARDIOLOGY [place], [place] [phone]- Business (1) Follow Up with KARON CALDERA When Within 1 to 2 weeks Where: [address] [place] [address] [facility] [place] [phone] Business (1) Follow Up with Patient Resource [...] these instructions at home: Medicines ??? Take hzev-fjg-orkhdnz and prescription medicines only as told by [...] and water are not available, use hand community educator. ? Change your dressing as told by [...] towers. ??? Do not use amateur ( [employer] ) radio equipment or electric ( arc [...] 06/20/2013 Document Revised: 12/14/2017 Document Reviewed: 06/20/2016 ConjuGon Interactive Patient Education ?? 2019 [employer]Gon Inc. Head Injury, Adult There are many [...] or school. Ask your doctor for a blzw-yr-flji plan for slowly going back to your [...] your friends, family, a trusted coworker, and custodial worker about your injury, symptoms, and limits (restrictions). Have them watch for any problems that are new or getting worse. General instructions ??? Take peoc-ltf-tjssspm and prescription medicines only as told by [...] 04/05/2017 Elsevier Interactive Patient Education ?? 2019 ConjuGon Inc. Subdural Hematoma A subdural hematoma is [...] you to do the same. ??? Take ajga-aln-jtmfdjv and prescription medicines only as told by [...] Where to find more information: ??? National [place] of Neurological Disorders and Stroke: www.ninds.nih.gov ??? [place] Association of Neurological Surgeons: http://www.aans.org ??? [place] Academy of Neurology (AAN): www.aan.com ??? Brain [...] 08/31/2017 Elsevier Interactive Patient Education ?? 2018 ConjuGon Inc. Emergency Awareness and Preventative Care STROKE [...] Assistance with quitting is available by contacting 1-385-ENSVNOW. This is a free resource providing counseling, support, and referral. Or you may contact your personal physician. [place] Suicide Prevention Lifeline: The National Suicide Prevention [...] range between ( 0.0 and 7.0 ) Frio #: 0.61 K/uL -- Normal range between ( 0.16 and 1.00 ) Eos #: 0.09 x10(3)/uL -- Normal range between ( 0.00 and 0.80 ) Frio %: 9.6 % -- Normal range between [...] was given the opportunity to ask questions. Patient/Fisheries Management Biologist Name: Patient/Fisheries Management Biologist Signature: Relationship to Patient: Clinician/Hospital Fisheries Management Biologist Signature: Date: Electronically signed by Nikita, [facility] Conversion Edi Programmer Analyst Richard at 01/26/2023 8:54 PM CDT documented in this encounter Plan of Treatment Not on file documented as of this encounter Visit Diagnoses Not on filedocumented in this encounter
--- OUTSIDE RECORDS SUMMARY | 2025-06-06 11:44 | XMS_ITS | Encounter Summary ---
Author Organization [employer] ([place], [place], [place], [place]) Address [address] [place] [address] Care Team Providers Care Blacking Wheel Tender Name Role Phone Unavailable Primary Care Provider Unavailabl e Encounter Details Date Type Department Care Team (Late st Contact Info) Description 07/22/2020 Transcribed Document [facility] [place] [address] [place] [address] ProviderPrasanth MD [address] [place] [address] Social History Tobacco Use [...] On: 07/22/2020 11:08 EDT by SALLY BARNETT director food safety Documentation Discharge Date/Time : 07/22/2020 12:26 EDT [...]
--- OUTSIDE RECORDS SUMMARY | 2025-06-06 11:44 | XMS_ITS | Encounter Summary ---
Author Organization [employer] ([place], [place], [place], [place]) Address [address] [place] [address] Care Team Providers Care Registered Nurse Teacher Name Role Phone Unavailable Primary Care Provider Unavailabl e Encounter Details Date Type Department Care Team (Late st Contact Info) Description 06/02/2021 Transcribed Document [facility] [place] Family Medicine [address] [place] [address] ProviderPrasanth MD [address] [place] [address] Social History Tobacco Use Types Packs/Day Years Used Date Smoking Tobacco: Never Assessed Sex and Gender Information Value Date Recorded Sex Assigned at Not on file Legal Sex Male 6:49 PM CDT Gender Identity Not on file Sexual Orientation Not on file documented as of this encounter Miscellaneous Notes * Cerner Conversion Note - Historical ProviderMD - 06/02/2021 9:50 AM CDT [place] Suicide Severity Rating Scale (C-SSRS) Entered On: 06/02/2021 11:32 EDT Performed On: 06/02/2021 11:32 EDT by SULAIMAN FAULKNER RN [place] Suicide Severity Rating Scale (C-SSRS) CSSRS Past [...]
--- OUTSIDE RECORDS SUMMARY | 2025-06-06 11:44 | XMS_ITS | Encounter Summary ---
Author Organization [employer] ([place], [place], [place], [place]) Address [address] [place] [address] Care Team Providers Care Consumer Safety Inspector Name Role Phone Unavailable Primary Care Provider Unavailabl e Encounter Details Date Type Department Care Team (Late st Contact Info) Description 11/07/2019 Transcribed Document [facility] [place] [address] [place] [address] ProviderPrasanth MD [address] [place] [address] Social History Tobacco Use Types Packs/Day Years Used Date Smoking Tobacco: Never Assessed Sex and Gender Information Value Date Recorded Sex Assigned at Not on file Legal Sex Male 6:49 PM CDT Gender Identity Not on file Sexual Orientation Not on file documented as of this encounter Miscellaneous Notes * Cerner Conversion Note - Historical ProviderMD - 11/07/2019 5:00 AM OFFICE SPECIALIST Chart Check - Review Order Profile Entered [...]
--- OUTSIDE RECORDS SUMMARY | 2025-06-06 11:44 | XMS_ITS | Encounter Summary ---
Author Organization [employer] ([place], [place], [place], [place]) Address [address] [place] [address] Care Team Providers Care Cake Press Operator Helper Name Role Phone Unavailable Primary Care Provider Unavailabl e Encounter Details Date Type Department Care Team (Late st Contact Info) Description 06/02/2021 Transcribed Document [facility] [place] [address] [place] [address] ProviderPrasanth MD [address] [place] [address] Social History Tobacco Use Types [...]
--- OUTSIDE RECORDS SUMMARY | 2025-06-06 11:44 | XMS_ITS | Encounter Summary ---
Author Organization [employer] ([place], [place], [place], [place]) Address [address] [place] [address] Care Team Providers Care Casing Soaker Name Role Phone Unavailable Primary Care Provider Unavailabl e Encounter Details Date Type Department Care Team (Late st Contact Info) Description 06/02/2021 Transcribed Document [facility] [place] Medicine [facility] [place] [address] [facility] [place] [address] Social History Tobacco Use Types [...] On: 06/02/2021 12:27 EDT by Chang Medrano Administrative Aide-Student Nurse Advance Directive Patient has Advance Directive *Q : Yes, Advance Directive on file Advance Directive Type : Living will Copy Advance Directive Verified/on Chart : No Chang Medrano Administrative Aide-Student Nurse - 06/02/2021 15:42 EDT Anesthesia/Transfusion History Family History of Anesthesia Reaction : No prior transfusion(s) Transfusion History : Prior anesthesia without reaction Family History of Anesthesia Reaction : None Chang Medrano Administrative Aide-Student Nurse - 06/02/2021 15:42 EDT Functional Assessment Living Situation : Home Patient Lives With : Spouse DEVINE Hx Falls Immediate/Within 3 Months : No Current Home Treatments : None Chang Medrano Administrative Aide-Student Nurse - 06/02/2021 15:42 EDT General Info Mode of Arrival on Unit : Ambulatory Legal Guardian : Spouse Legal Guardian : No Support Person/Patient Health Information Technologist : Yes Support Person/Pt Rep Name : Rosa Elena Bustamante- spouse Support Person/Pt Rep Contact Information : [phone] home Want Family/Rep/Phys Notified of Admit : No Emergency Contact #1 : Rosa Elena Bustamante Emergency Contact #1 Phone Number : [phone] Emergency Contact #1 Relationship : Emergency Contact #2 : na Emergency Contact #2 Phone Number : na Emergency Contact #2 Relationship : na Chief Complaint : Pt c/o episode of CP x 2 hours last night, new onset bialteral weakness R>L onset 2200 last night that resolved after 2 hours. Primary Language : Maltese Preferred Communication Mode : Verbal Communication Barrier : None Veterinary Technician Needed : No Chang Medrano, Administrative Aide-Student Nurse - 06/02/2021 15:42 EDT Fall Risk [...] Scale Risk Level : 25-45 Medium Risk Rena Lara Fall Interventions : Adequate lighting, Bed in low position, Hourly comfort/safety rounds, Non-slip footwear, Personal items within reach, Reinforced to call for assistance before getting out of bed, Room free of clutter/spills, Upper side-rails up, Wheels locked, Wires/Cords secured Barriers to Learning : None evident Fall Risk Scale Calc Temp : 0 Chang Medrano, Administrative Aide-Student Nurse - 06/02/2021 15:42 EDT Health Histories Smoking Status : Former smoker, quit more than 30 days ago Smokeless Tobacco Status : Never Chang Medrano Administrative Aide-Student Nurse - 06/02/2021 15:42 EDT Social History [...] Source : Stated Height Entry Format : [place] Height, Feet : 5 ft(Converted to: 152 cm, 60 Inch) Height, Inches : 9 Inch(Converted to: 0 ft 9 Inch, 22.86 cm) Clinical Height : 175.26 cm Weight Source : Bed scale Weight Entry Format : [place] Clinical Dosing Weight : 89.14 kg Weight, Pounds : 196.1 lb Body Surface Area (BSA) : 2.05 m2 Body Mass Index : 29 kg/m2 ([place]) [place] Body Weight : 70 kg Chang Medrano, Administrative Aide-Student Nurse - 06/02/2021 15:42 EDT Infectious Disease [...] Mumps Tuberculosis Symptoms : None Chang Medrano, Administrative Aide-Student Nurse - 06/02/2021 15:42 EDT Influenza Vaccine Asmt, Adult Previous Vaccines from Immunization Schedule : Previous Vaccines and Immunizations tetanus/diphtheria/pertussis, acel(Tdap): 0.5 mL (11/04/19 21:11:00) Influenza Immunization, Current Season : Outside of influenza season Chang Medrano Administrative Aide-Student Nurse - 06/02/2021 15:42 EDT Pneumococcal Vaccine Previous Vaccines from Immunization Schedule : Previous Vaccines and Immunizations tetanus/diphtheria/pertussis, acel(Tdap): 0.5 mL (11/04/19 21:11:00) Pneumonia Immunization Received : Yes Chang Medrano Administrative Aide-Student Nurse - 06/02/2021 15:42 EDT Order Details Order Detail : N/A Patient Needs Meds Crushed/Liquid : No Chang Medrano Administrative Aide-Student Nurse - 06/02/2021 15:42 EDT Nutrition History Adaptive Feeding Equipment : Regular Oral Medication Administration : By mouth Eating Poorly Due to Decreased Appetite : No Unplanned Weight Loss in Past 3-6 Months : No Malnutrition Screening Tool Total(mal) : 0 Malnutrition Screening Tool Risk Level : Patient not at risk Chang Mderano Administrative Aide-Student Nurse - 06/02/2021 15:42 EDT [place] Suicide Severity Rating Scale (C-SSRS) CSSRS Past Month Wish to be : No CSSRS Past Month Suicidal Thoughts : No CSSRS Lifetime Suicide Behavior : No Suicide Severity Rating Score : 0 Suicide Severity Rating : No Additional Care Required at this time Chang Medrano Administrative Aide-Student Nurse - 06/02/2021 15:42 EDT Psychosocial History Chronic/Terminal Illness w/Freq Visits : No Do You Have a History of the Following? : Patient denies history Currently in Unsafe Situation : No Chang Medrano Administrative Aide-Student Nurse - 06/02/2021 15:42 EDT Sleep Apnea [...] Risk Level Score : 3 Chang Medrano, Administrative Aide-Student Nurse - 06/02/2021 15:42 EDT Valuables and Belongings Valuables and Belongings : Clothing, Personal devices Clothing : Common streetwear Clothing Disposition : Bedside Personal Device Disposition : With patient Personal Devices : Glasses Chang Medrano, Administrative Aide-Student Nurse - 06/02/2021 15:42 EDT Electronically signed by [facility] Conversion Chief Inspector Cerner at 01/26/2023 8:56 PM CDT documented in this encounter Plan of Treatment Not on file documented as of this encounter Visit Diagnoses Not on filedocumented in this encounter
--- OUTSIDE RECORDS SUMMARY | 2025-06-06 11:44 | XMS_ITS | Encounter Summary ---
Author Organization [employer] ([place], [place], [place], [place]) Address [address] [place] [address] Care Team Providers Care Retail Personal Banker Name Role Phone Unavailable Primary Care Provider Unavailabl e Encounter Details Date Type Department Care Team (Late st Contact Info) Description 06/02/2021 Transcribed Document [facility] [place] Family Medicine [address] [place] [address] ProviderPrasanth MD [address] [place] [address] Social History Tobacco Use Types Packs/Day Years Used Date Smoking Tobacco: Never Assessed Sex and Gender Information Value Date Recorded Sex Assigned at Not on file Legal Sex Male 6:49 PM CDT Gender Identity Not on file Sexual Orientation Not on file documented as of this encounter Miscellaneous Notes * Cerner Conversion Note - Historical ProviderMD - 06/02/2021 2:49 PM CDT SOUS CHEF KITCHEN MANAGER Attempt to Treat Entered On: 06/02/2021 14:50 EDT Performed On: 06/02/2021 14:49 EDT by ADRIÁN LUO SLP Attempt to Treat Unable to Treat Due To : Patient Unavailable Inability to Treat Comment : Attempted to see pt for dysphagia evaluation, however he was off the floor. SOUS CHEF KITCHEN MANAGER will f/u Tuesday. ADRIÁN LUO SLP - 06/02/2021 14:49 EDT documented in this encounter Plan of Treatment Not on file documented as of this encounter Visit Diagnoses Not on filedocumented in this encounter
--- OUTSIDE RECORDS SUMMARY | 2025-06-06 11:44 | XMS_ITS | Encounter Summary ---
Author Organization [employer] ([place], [place], [place], [place]) Address [address] [place] [address] Care Team Providers Care Mining Teacher Name Role Phone Unavailable Primary Care Provider Unavailabl e Encounter Details Date Type Department Care Team (Late st Contact Info) Description 12/03/2019 Transcribed Document [facility] [place] [address] [place] [address] ProviderPrasanth MD [address] [place] [address] Social History Tobacco Use Types Packs/Day Years Used Date Smoking Tobacco: Never Assessed Sex and Gender Information Value Date Recorded Sex Assigned at Not on file Legal Sex Male 6:49 PM CDT Gender Identity Not on file Sexual Orientation Not on file documented as of this encounter Miscellaneous Notes * Cerner Conversion Note - Historical ProviderMD - 12/03/2019 11:24 AM POWDER GUARD Nursing Discharge Summary Entered On: 12/03/2019 11:24 EST Performed On: 12/03/2019 11:24 EST by AUSTIN FOFANA, ship harbor pilot Documentation Discharge Date/Time : 12/03/2019 12:26 EST [...] 12/03/2019 11:24 EST Electronically signed by Nikita [facility] Conversion Leather Belt Loop Cutter Cerner at 01/26/2023 9:08 PM CDT documented in this encounter Plan of Treatment Not on file documented as of this encounter Visit Diagnoses Not on filedocumented in this encounter
--- OUTSIDE RECORDS SUMMARY | 2025-06-06 11:44 | XMS_ITS | Encounter Summary ---
Author Organization [employer] ([place], [place], [place], [place]) Address [address] [place] [address] Care Team Providers Care Divisional Human Resources Director Name Role Phone Unavailable Primary Care Provider Unavailabl e Encounter Details Date Type Department Care Team (Late st Contact Info) Description 11/07/2019 Transcribed Document [facility] [place] Family Medicine [address] [place] [address] ProviderPrasanth MD [address] [place] [address] Social History Tobacco Use Types Packs/Day Years Used Date Smoking Tobacco: Never Assessed Sex and Gender Information Value Date Recorded Sex Assigned at Not on file Legal Sex Male 6:49 PM CDT Gender Identity Not on file Sexual Orientation Not on file documented as of this encounter Miscellaneous Notes * [employer]ner Conversion Note - Historical ProviderMD - 11/07/2019 3:18 AM FIELD REIMBURSEMENT MANAGER Height and Weight, Routine Entered On: 11/07/2019 3:18 EST Performed On: 11/07/2019 3:18 EST by Sal Hurt, Waste RemovalistHealth Unit Coord Height and Weight, Routine Routine Weight Source : Bed scale Routine Weight Entry Format : Metric Routine Weight, Kilograms : 89.7 kg(Converted to: 197 lb 12 oz) Routine Weight Calculation : 89.7 kg Height Source : Stated Height Entry Format : [place] Height, Feet : 5 ft Height, Inches : 9 Inch Clinical Height : 175.26 cm Body Surface Area (BSA), Routine : 2.06 m2 Body Mass Index (BMI), Routine : 29.2 kg/m2 Sal Hurt, Waste Removalist-Health Unit Coord - 11/07/2019 3:18 EST Electronically signed by Nikita [facility] Conversion Night Cleaner Cerner at 01/26/2023 9:10 PM CDT documented in this encounter Plan of Treatment Not on file documented as of this encounter Visit Diagnoses Not on filedocumented in this encounter
--- OUTSIDE RECORDS SUMMARY | 2025-06-06 11:44 | XMS_ITS | Encounter Summary ---
Author Organization [employer] ([place], [place], [place], [place]) Address [address] [place] [address] Care Team Providers Care Leather Heel Breaster Name Role Phone Unavailable Primary Care Provider Unavailabl e Encounter Details Date Type Department Care Team (Late st Contact Info) Description 12/03/2019 Transcribed Document [facility] [place] Family Medicine [address] [place] [address] ProviderPrasanth MD [address] [place] [address] Social History Tobacco Use Types Packs/Day Years Used Date Smoking Tobacco: Never Assessed Sex and Gender Information Value Date Recorded Sex Assigned at Not on file Legal Sex Male 6:49 PM CDT Gender Identity Not on file Sexual Orientation Not on file documented as of this encounter Miscellaneous Notes * Cerner Conversion Note - Historical ProviderMD - 12/03/2019 9:48 AM COMPLIANCE MGR Event Note Entered On: 12/03/2019 9:49 EST [...] 12/03/2019 9:50 EST Electronically signed by Nikita [facility] Conversion Fire Control Assistant Cerner at 01/26/2023 9:12 PM CDT documented in this encounter Plan of Treatment Not on file documented as of this encounter Visit Diagnoses Not on filedocumented in this encounter
--- OUTSIDE RECORDS SUMMARY | 2025-06-06 11:44 | XMS_ITS | Encounter Summary ---
Author Organization [employer] ([place], [place], [place], [place]) Address [address] [place] [address] Care Team Providers Care Service Superintendent Name Role Phone Unavailable Primary Care Provider Unavailabl e Encounter Details Date Type Department Care Team (Late st Contact Info) Description 06/02/2021 Transcribed Document [facility] [place] [address] [place] [address] ProviderPrasanth MD [facility] [place] [address] Social History Tobacco Use Types [...] On: 06/02/2021 15:14 EDT by ADRIÁN LUO, LOOM WINDER TENDER General Information Visit Type, LOOM WINDER TENDER : Initial evaluation Patient Orders : Speech Language Pathology Swallow Evaluation and Treatment -111 Start: 06/02/21 15:13:00 EDT, Routine, For Swallow Eval and Treat - CJ AVITIA MD-INT Speech Language Pathology Evaluation and Treatment - Start: 06/02/21 12:40:00 EDT, Routine, For Speech Language Cognitive Eval and Treat -111 CJ AVITIA MD-INT Admission Date : Admission Date/Time: 06/02/21 12:02:00 Medical Chart Reviewed, LOOM WINDER TENDER : Yes Personal Devices : Personal Devices No Devices Recorded Assistive Devices : Assistive Devices No Devices Recorded Active Diagnoses : 06/02/2021 12:00 Chest pain 06/02/2021 12:00 Chest pain, unspecified 06/02/2021 12:00 Non-ST elevation (NSTEMI) myocardial infarction 06/02/2021 12:00 Other specified abnormalities of plasma proteins 06/02/2021 12:00 Transient cerebral ischemic attack, unspecified 06/02/2021 12:00 Weakness Therapy Diagnosis, LOOM WINDER TENDER : Pt presents without overt oropharyngeal patterns. Recommendations: 1. Regular/thin 2. Medication per RN 3. NO further evaluation/tx for oropharyngeal dysphagia 4. LOOM WINDER TENDER will f/u with a definitive neuro dx warranting further communication evaluation Previous Speech/Language Evaluations : No previous ST in EMR Previous Swallow Precautions : No previous ST in EMR Diet/Intake Prior to Current Admission : Regular/thin Diet/Intake During Current Admission : NPO Intubation Comment, LOOM WINDER TENDER : n/a Vital Signs RTF : Vitals [...] 15:14 EDT General Status Patient Received Status, LOOM WINDER TENDER : Sitting edge of bed Patient Left Status, LOOM WINDER TENDER : Sitting edge of bed ADRIÁN LUO [...] Oral Mechanism for Daily Living : Intact LOOM WINDER TENDER Cough : Strong Facial Appearance: : Symmetrical [...] A flutter, CAD, Aortic valve replacement, CABG, [place], HLD, HTN and subdural hematoma. LOOM WINDER TENDER consulted for bedside dysphagia evaluation. Today, pt is alert and oriented x4. No overt communication deficits appreciated. Oral skills appear functional for swallowing. No overt pharyngeal patterns appreciated with any trialed consistency. Pt appears safe for a regular diet and thin liquids. Medication per RN. No further evaluation/tx for oropharyngeal dysphagia is indicated at this time. LOOM WINDER TENDER will f/u with a definitive neuro dx [...] - 06/02/2021 15:14 EDT Therapy Indication Assessment LOOM WINDER TENDER Indicated : No LOOM WINDER TENDER Not Indicated : At prior level of function LOOM WINDER TENDER Interdisciplinary Consultation Needs : No LOOM WINDER TENDER Rehabilitation Potential : At prior level of function ADRIÁN LUO SLP - 06/02/2021 15:14 EDT Education Barriers To Learning : None evident Individuals Taught : Patient Readiness to Learn : Cooperative Readiness to Learn : Explanation ADRIÁN LUO SLP - 06/02/2021 15:14 EDT LOOM WINDER TENDER Education Assessment Grid 1 Diet Recommendation : Verbalizes understanding Evaluation Results : Verbalizes understanding ADRIÁN LUO SLP - 06/02/2021 15:[address] Charges Evaluation Swallowing Function : 1 ADRIÁN LUO SLP - 06/02/2021 15:14 EDT Anticipated Discharge Needs, LOOM WINDER TENDER Anticipated Discharge to : Home, independently Recommend Continued Therapy at Discharge : No ADRIÁN LUO SLP - 06/02/2021 15:14 EDT Electronically signed by Nikita [facility] Conversion Building Code Administrator Cerner at 01/26/2023 8:54 PM CDT documented in this encounter Plan of Treatment Not on file documented as of this encounter Visit Diagnoses Not on filedocumented in this encounter
--- OUTSIDE RECORDS SUMMARY | 2025-06-06 11:44 | XMS_ITS | Encounter Summary ---
Author Organization [employer] ([place], [place], [place], [place]) Address [address] [place] [address] Care Team Providers Care Executive Communications Manager Name Role Phone Unavailable Primary Care Provider Unavailabl e Encounter Details Date Type Department Care Team (Late st Contact Info) Description 12/03/2019 Transcribed Document [facility] [place] [address] [place] [address] ProviderPrasanth MD [address] [place] [address] Social History Tobacco Use Types Packs/Day Years Used Date Smoking Tobacco: Never Assessed Sex and Gender Information Value Date Recorded Sex Assigned at Not on file Legal Sex Male 6:49 PM CDT Gender Identity Not on file Sexual Orientation Not on file documented as of this encounter Miscellaneous Notes * [employer]ner Conversion Note - Historical ProviderMD - 12/03/2019 11:15 AM RADIO ELECTRICIAN Event Note Entered On: 12/03/2019 11:17 EST Performed On: 12/03/2019 11:15 EST by AUSTIN FOFANA, RN Event Note Event Date/Time : 12/03/2019 11:05 EST Description of Event : pt received back to unit from procedure lab, s/p anne ADLER within reach, family at bedside , VSS AUSTIN FOFANA, RN - 12/03/2019 11:15 EST Electronically signed by Nikita [facility] Conversion [place] Archeology Professor Cerner at 01/26/2023 9:08 PM CDT documented in this encounter Plan of Treatment Not on file documented as of this encounter Visit Diagnoses Not on filedocumented in this encounter
--- OUTSIDE RECORDS SUMMARY | 2025-06-06 11:44 | XMS_ITS | Encounter Summary ---
Author Organization [employer] ([place], [place], [place], [place]) Address [address] [place] [address] Care Team Providers Care Swedish Masseuse Name Role Phone Unavailable Primary Care Provider Unavailabl e Encounter Details Date Type Department Care Team (Late st Contact Info) Description 11/07/2019 Transcribed Document [facility] Radiology [address] [place] [address] Abel Kapadia MD [address] [place] [address] [place] [address] Social History Tobacco Use Types Packs/Day Years [...] PRIMARY CARE PHYSICIAN: Dr. Marcelino Caldera, [facility]. REFERRING PHYSICIAN: Dr. Beckman, [facility] , 1935. CURRENT COMPLAINT: Falls, dizziness, [...] At risk for sleep apnea / IMO [id number] / Confirmed Shortness of breath / SNOMED CT 282281697 / Confirmed Hypertension / SNOMED CT 41681925 / Confirmed Wears glasses / SNOMED CT 638906029 / Confirmed, Active Problems (11) Aortic stenosis [...] gallop, S1+ S2 No S3 or S4 [place].. Gastrointestinal: Soft, Non-tender, Non-distended, Normal bowel sounds. [...] (NOV 04) Radiology Results (Last 48 hours) [id number] -- 11/04/2019 21:19 CT Head WO (11/05/2019 [...]
--- OUTSIDE RECORDS SUMMARY | 2025-06-06 11:44 | XMS_ITS | Encounter Summary ---
Author Organization [employer] ([place], [place], [place], [place]) Address [address] [place] [address] Care Team Providers Care Correctional Food Service Supervisor Name Role Phone Unavailable Primary Care Provider Unavailabl e Encounter Details Date Type Department Care Team (Late st Contact Info) Description 11/07/2019 Transcribed Document [facility] [place] Family Medicine [address] [place] [address] ProviderPrasanth MD [address] [place] [address] Social History Tobacco Use Types Packs/Day Years Used Date Smoking Tobacco: Never Assessed Sex and Gender Information Value Date Recorded Sex Assigned at Not on file Legal Sex Male 6:49 PM CDT Gender Identity Not on file Sexual Orientation Not on file documented as of this encounter Miscellaneous Notes * [employer] Conversion Note - Historical ProviderMD - 11/07/2019 2:00 AM NURSE OB Watch Technician Details Entered On: 11/07/2019 0:40 EST Performed [...]
--- OUTSIDE RECORDS SUMMARY | 2025-06-06 11:44 | XMS_ITS | Encounter Summary ---
Author Organization [employer] ([place], [place], [place], [place]) Address [address] [place] [address] Care Team Providers Care Credit Correspondence Clerk Name Role Phone Unavailable Primary Care Provider Unavailabl e Encounter Details Date Type Department Care Team (Late st Contact Info) Description 11/08/2019 Transcribed Document [facility] Radiology [address] [place] [address] Abel Kapadia MD [address] [place] [address] [place] [address] Social History Tobacco Use Types Packs/Day Years [...] Dr. Marcelino Caldera, [facility]. REFERRING PHYSICIAN: Dr. Beckman, [facility] , 1935. CURRENT COMPLAINT: Falls, dizziness, [...] At risk for sleep apnea / IMO [id number] / Confirmed Shortness of breath / SNOMED CT 013014046 / Confirmed Hypertension / SNOMED CT 72484294 / Confirmed Wears glasses / SNOMED CT 590705500 / Confirmed, Active Problems (11) Aortic stenosis [...] gallop, S1+ S2 No S3 or S4 [place].. Gastrointestinal: Soft, Non-tender, Non-distended, Normal bowel sounds. [...] (NOV 04) Radiology Results (Last 48 hours) [id number] -- 11/04/2019 21:19 CR Chest 1 [address] [...]
--- OUTSIDE RECORDS SUMMARY | 2025-06-06 11:44 | XMS_ITS | Encounter Summary ---
Author Organization [employer] ([place], [place], [place], [place]) Address [address] [place] [address] Care Team Providers Care Sales Floor Manager Name Role Phone Unavailable Primary Care Provider Unavailabl e Encounter Details Date Type Department Care Team (Late st Contact Info) Description 12/03/2019 Transcribed Document [facility] [place] [address] [place] [address] ProviderPrasanth MD [address] [place] [address] Social History Tobacco Use Types Packs/Day Years Used Date Smoking Tobacco: Never Assessed Sex and Gender Information Value Date Recorded Sex Assigned at Not on file Legal Sex Male 6:49 PM CDT Gender Identity Not on file Sexual Orientation Not on file documented as of this encounter Miscellaneous Notes * Cerner Conversion Note - Prasanth Sanchez MD - 12/03/2019 11:25 AM MECHANICAL PROJECT MANAGER [facility] [place] [address] MIYA GARZAALD HORACIO :1935 Visit [...] F/U with Dr Hughes today(12/03) afternoon at [facility] Where: [address] [place] [address]- [facility] (1) Medications What How Much When [...] including vitamins, herbs, eye drops, creams, and nfzz-nak-bbezmjp medicines. ??? Any problems you or family [...] diabetes medicines or blood thinners. ? Taking ppxd-unu-mxphqrv medicines, vitamins, herbs, and supplements. ? Taking [...] 12/17/2003 Document Revised: 12/23/2017 Document Reviewed: 12/23/2017 [employer] Interactive Patient Education ?? 2019 [employer] Moderate Conscious Sedation, Adult, Care After [...] you are awake and alert. ??? Take agzp-pcv-byqlnwy and prescription medicines only as told by [...] 07/17/2014 Document Revised: 02/28/2017 Document Reviewed: 01/15/2017 [employer] Interactive Patient Education ?? 2019 [employer] Emergency Awareness and Preventative Care STROKE [...] Assistance with quitting is available by contacting 6-865-PHED-NOW. This is a free resource providing counseling, [...] was given the opportunity to ask questions. Patient/Loan Review Analyst Name: Patient/Loan Review Analyst Signature: Relationship to Patient: Clinician/Hospital Loan Review Analyst Signature: Date: Electronically signed by Nikita, Carla Conversion Supervisor Kosher Dietary Service Cerner at 01/26/2023 8:49 PM CDT documented in this encounter Plan of Treatment Not on file documented as of this encounter Visit Diagnoses Not on filedocumented in this encounter
--- OUTSIDE RECORDS SUMMARY | 2025-06-06 11:44 | XMS_ITS | Encounter Summary ---
Author Organization [employer] ([place], [place], [place], [place]) Address [address] [place] [address] Care Team Providers Care Dairy Quality Assurance Officer Name Role Phone Unavailable Primary Care Provider Unavailabl e Encounter Details Date Type Department Care Team (Late st Contact Info) Description 11/07/2019 Transcribed Document [facility] [place] Medicine [address] [place] [address] ProviderPrasanth MD [address] [place] [address] Social History Tobacco Use Types Packs/Day Years Used Date Smoking Tobacco: Never Assessed Sex and Gender Information Value Date Recorded Sex Assigned at Not on file Legal Sex Male 6:49 PM CDT Gender Identity Not on file Sexual Orientation Not on file documented as of this encounter Miscellaneous Notes * Cerner Conversion Note - Prasanth ProviderMD - 11/07/2019 2:30 PM FINE ARTS MODEL On Going Discharge Planning Entered On: 11/07/2019 14:32 EST Performed On: 11/07/2019 14:30 EST by BINH SIDDIQI, RN-Garment Parts Cutter HandChocolate Dipper Progress Note Discharge Arrangements : Patient Post-Acute Information Patient Name: SHIRA GARZA HORACIO Gender: Male : [birth year] Age: 84 Years No Post-Acute Placement(s) Listed No Post-Acute Service(s) Listed No Curaspan Referral(s) Listed Discharge Options Discussed with Patient : Home Health BINH SIDDIQI, RN-Garment Parts Cutter Hand - 11/07/2019 14:30 EST Narrative Progress Note [...] and assist w/needs as approp. ROSANA CALLEJAS, RN-Garment Parts Cutter Hand - 11/05/19 17:54:54 BINH SIDDIQI, RN-Garment Parts Cutter Hand - 11/07/2019 14:30 EST Electronically signed by Nikita [facility] Conversion Insurance Instructor Cerner at 01/26/2023 8:54 PM CDT documented in this encounter Plan of Treatment Not on file documented as of this encounter Visit Diagnoses Not on filedocumented in this encounter
--- OUTSIDE RECORDS SUMMARY | 2025-06-06 11:44 | XMS_ITS | Encounter Summary ---
Author Organization [employer] ([place], [place], [place], [place]) Address [address] [place] [address] Care Team Providers Care Executive Coach Name Role Phone Unavailable Primary Care Provider Unavailabl e Encounter Details Date Type Department Care Team (Late st Contact Info) Description 07/22/2020 Transcribed Document [facility] [place] Family Medicine [address] [place] [address] ProviderPrasanth MD [address] [place] [address] Social History Tobacco Use Types [...] Sanchez MD - 07/22/2020 12:13 PM CDT [facility] [place] [id number] KYALA SHIRA HORACIO :1935 Visit Time:07/22/2020 Your Visit [...] From Your Care Team no driving today. poultry picking machine tender prescription and start Coumadin according to directions. [facility] to monitor Coumadin labs and dose Follow-Up Appointments Follow Up with LACIE ALVA When 08/21/2020 11:15 AM EST Comments Appointment has been made Where: [address] [place] [address]- [facility] (1) Medications What How Much When Instructions Next Dose warfarin (warfarin 5 mg oral tablet) 1 Tablet(s) Oral Every Day Refills: 6 dose to be adjusted Pickup at [facility] aspirin 81 Milligram(s) Every Day atorvastatin (atorvastatin 20 mg oral tablet) 1 Tablet(s) Oral Tuesday lisinopril 20 Milligram(s) Oral Every Day multivitamin 1 Tablet(s) Oral Every Day Pharmacy Information [facility]: [address] [address] [phone] Start Coumadin tonight Take your medications faithfully. [...] other medicines or supplements? Many prescription and dhos-yfh-ockjsiw medicines can interfere with warfarin. Talk with your health care provider or your pharmacist before starting or stopping any new medicines. This includes mqln-npe-thrnwam vitamins, dietary supplements, herbal medicines, and pain medicines. Your warfarin dosage may need to be adjusted. ??? Some common bqsh-uoj-gsvnfpi medicines that may increase the risk of [...] that you work with a diet and animal nutrition consultant (dietitian). ??? Vitamin K decreases the effect [...] cooked. ??? Collards, raw or cooked. ??? Montenegrin chard, raw or cooked. ??? Mustard greens, raw or cooked. ??? Turnip greens, raw or cooked. ??? Parsley, raw. ??? Broccoli, cooked. ??? Noodles, eggs, and spinach, enriched. ??? [place] sprouts, raw or cooked. ??? Beet greens, [...] diet. ??? You start or stop any jpxz-veb-lotxyin medicine, prescription medicine, or dietary supplement. ??? [...] 09/26/2006 Document Revised: 05/09/2018 Document Reviewed: 12/22/2016 [employer] Patient Education ?? 2020 [employer]. Moderate Conscious Sedation, Adult, Care After [...] you are awake and alert. ??? Take ejwk-atg-uapuwyl and prescription medicines only as told by [...] Reviewed: 01/15/2017 Elsevier Patient Education ?? 2020 [employer] Inc. Transesophageal Echocardiogram Transesophageal echocardiogram (VITOR) is [...] including vitamins, herbs, eye drops, creams, and pumb-aor-arvxpxu medicines. ??? Any problems you or family [...] diabetes medicines or blood thinners. ? Taking hbaw-xri-nhedshd medicines, vitamins, herbs, and supplements. ? Taking [...] 12/17/2003 Document Revised: 03/07/2018 Document Reviewed: 12/23/2017 [employer] Patient Education ?? 2020 [employer]. Emergency Awareness and Preventative Care STROKE is [...] Assistance with quitting is available by contacting 6-086-MGXN-NOW. This is a free resource providing counseling, [...] was given the opportunity to ask questions. Patient/Campaign Worker Name: Patient/Campaign Worker Signature: Relationship to Patient: Clinician/Hospital Campaign Worker Signature: Date: documented in this encounter Plan of Treatment Not on file documented as of this encounter Visit Diagnoses Not on filedocumented in this encounter
--- OUTSIDE RECORDS SUMMARY | 2025-06-06 11:44 | XMS_ITS | Encounter Summary ---
Author Organization [employer] ([place], [place], [place], [place]) Address [address] [place] [address] Care Team Providers Care Front Desk Officer Name Role Phone Unavailable Primary Care Provider Unavailabl e Encounter Details Date Type Department Care Team (Late st Contact Info) Description 11/07/2019 Transcribed Document [facility] [place] Medicine [address] [place] [address] ProviderPrasanth MD [address] [place] [address] Social History Tobacco Use Types Packs/Day Years Used Date Smoking Tobacco: Never Assessed Sex and Gender Information Value Date Recorded Sex Assigned at Not on file Legal Sex Male 6:49 PM CDT Gender Identity Not on file Sexual Orientation Not on file documented as of this encounter Miscellaneous Notes * Cerner Conversion Note - Historical ProviderMD - 11/07/2019 5:00 PM TRANSPORTATION MAINTENANCE OPERATOR Chart Check - Review Order Profile Entered On: 11/07/2019 17:33 EST Performed On: 11/07/2019 17:00 EST by MARIBELL MIMS RN Chart Check Powerplans Initiated/Discontinued as Appropriate : Yes MARIBELL MIMS RN - 11/07/2019 17:33 EST Electronically signed by Nikita [facility] Conversion Protective Signal Repairer Devynner at 01/26/2023 8:59 PM CDT documented in this encounter Plan of Treatment Not on file documented as of this encounter Visit Diagnoses Not on filedocumented in this encounter
--- OUTSIDE RECORDS SUMMARY | 2025-06-06 11:44 | XMS_ITS | Encounter Summary ---
Author Organization [employer] ([place], [place], [place], [place]) Address [address] [place] [address] Care Team Providers Care Air Brake Man Name Role Phone Unavailable Primary Care Provider Unavailabl e Encounter Details Date Type Department Care Team (Late st Contact Info) Description 12/30/2020 Transcribed Document [facility] [place] [address] [place] [address] ProviderPrasanth MD [address] [place] [address] Social History Tobacco Use Types [...]
--- OUTSIDE RECORDS SUMMARY | 2025-06-06 11:44 | XMS_ITS | Encounter Summary ---
Author Organization [employer] ([place], [place], [place], [place]) Address [address] [place] [address] Care Team Providers Care Information Systems Analyst Name Role Phone Unavailable Primary Care Provider Unavailabl e Encounter Details Date Type Department Care Team (Late st Contact Info) Description 11/07/[address] [facility] [place] [address] [place] [address] ProviderPrasanth MD [address] [place] [address] Social History Tobacco Use Types Packs/Day Years Used Date Smoking Tobacco: Never Assessed Sex and Gender Information Value Date Recorded Sex Assigned at Not on file Legal Sex Male 6:49 PM CDT Gender Identity Not on file Sexual Orientation Not on file documented as of this encounter Miscellaneous Notes * Cerner Conversion Note - Prasanth ProviderMD - 11/07/2019 10:09 AM APPLICATION SECURITY ARCHITECT Patient: SHIRA GARZA HORACIO Age: 84 years Sex: Male : 1935 Associated Diagnoses: None Author: CELESTINA RUIZ APRN [facility] CARDIOLOGY PROGRESS NOTE: DIAGNOSIS: 1. 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
--- OUTSIDE RECORDS SUMMARY | 2025-06-06 11:44 | XMS_ITS | Encounter Summary ---
Author Organization [employer] ([place], [place], [place], [place]) Address [address] [place] [address] Care Team Providers Care Shafting Cleaner Name Role Phone Unavailable Primary Care Provider Unavailabl e Encounter Details Date Type Department Care Team (Late st Contact Info) Description 12/30/2020 Transcribed Document [facility] [place] [facility] [address] ProviderPrasanth MD [address] [place] [address] Social History Tobacco Use Types [...] Source : Stated Height Entry Format : [place] Height, Feet : 5 ft(Converted to: 152 cm, 60 Inch) Height, Inches : 9 Inch(Converted to: 0 ft 9 Inch, 22.86 cm) Clinical Height : 175.26 cm Weight Source : Standing scale Weight Entry Format : [place] Clinical Dosing Weight : 88.64 kg Weight, Pounds : 195 lb Body Surface Area (BSA) : 2.05 m2 Body Mass Index : 28.9 kg/m2 (HI) [place] Body Weight : 70 kg Mini Abreu [...] Mini Abreu RN - 12/30/2020 8:05 EDT [place] Suicide Severity Rating Scale (C-SSRS) CSSRS Past [...] Spouse Legal Guardian : No Support Person/Patient Senior Java Developer : Yes Support Person/Pt Rep Name : Rosa Elena Bustamante- spouse Support Person/Pt Rep Contact Information : [phone] home Want Family/Rep/Phys Notified of Admit : No Emergency Contact #1 : NA Emergency Contact #1 Phone Number : NA Emergency Contact #1 Relationship : NA Emergency Contact #2 : NA Emergency Contact #2 Phone Number : NA Emergency Contact #2 Relationship : NA Information Obtained From : Patient Primary Language : Botswanan Preferred Communication Mode : Verbal Communication Barrier : None Finished Cigar Maker Needed : No Mini Abreu RN - [...] Scale Risk Level : 0-24 Low Risk [place] Fall Interventions : Adequate lighting, Bed in [...]
--- OUTSIDE RECORDS SUMMARY | 2025-06-06 11:44 | XMS_ITS | Encounter Summary ---
Author Organization [employer] ([place], [place], [place], [place]) Address [address] [place] [address] Care Team Providers Care Ordnance Handler Name Role Phone Unavailable Primary Care Provider Unavailabl e Encounter Details Date Type Department Care Team (Late st Contact Info) Description 11/08/2019 Transcribed Document [facility] [place] [address] [place] [address] ProviderPrasanth MD [address] [place] [address] Social History Tobacco Use Types Packs/Day Years Used Date Smoking Tobacco: Never Assessed Sex and Gender Information Value Date Recorded Sex Assigned at Not on file Legal Sex Male 6:49 PM CDT Gender Identity Not on file Sexual Orientation Not on file documented as of this encounter Miscellaneous Notes * Cerner Conversion Note - Historical ProviderMD - 11/08/2019 1:34 PM FRAMING AND HANGING Discharge Summary, PT Entered On: 11/08/2019 13:36 [...] DRAKE PRICE, PT - 11/08/2019 13:34 EST Fibreglass Gun Hand Goals Mobility/Bed Mobility LTG PT Grid Goal [...] - 11/08/2019 13:34 EST Electronically signed by [facility], [facility] Conversion Fashion Patternmaker Cerner at 01/26/2023 8:49 PM CDT documented in this encounter Plan of Treatment Not on file documented as of this encounter Visit Diagnoses Not on filedocumented in this encounter
--- OUTSIDE RECORDS SUMMARY | 2025-06-06 11:44 | XMS_ITS | Encounter Summary ---
Author Organization [employer] ([place], [place], [place], [place]) Address [address] [place] [address] Care Team Providers Care Reimbursement Coordinator Name Role Phone Unavailable Primary Care Provider Unavailabl e Encounter Details Date Type Department Care Team (Late st Contact Info) Description 11/07/2019 Transcribed Document [facility] Radiology [address] [place] [address] Abel Kapadia MD [address] [place] [address] [place] [address] Social History Tobacco Use Types Packs/Day Years [...] CARE PHYSICIAN: Dr. Marcelino Caldera, [facility]. REFERRING PHYSICIAN: Dr. Beckman, [facility] , 1935. CURRENT COMPLAINT: Falls, dizziness, irregular heartbeat. HISTORY OF PRESENT ILLNESS: Shira Garza is an 84-year-old man, , living in the [facility], who recently underwent a transcatheter aortic valve [...] At risk for sleep apnea / IMO [id number] / Confirmed Shortness of breath / SNOMED CT 494970240 / Confirmed Hypertension / SNOMED CT 34082992 / Confirmed Wears glasses / SNOMED CT 295290852 / Confirmed, Active Problems (11) Aortic stenosis [...] gallop, S1+ S2 No S3 or S4 [facility].. Gastrointestinal: Soft, Non-tender, Non-distended, Normal bowel sounds. [...] (NOV 04) Radiology Results (Last 48 hours) [id number] -- 11/04/2019 21:19 CT Head WO (11/05/2019 [...]
--- OUTSIDE RECORDS SUMMARY | 2025-06-06 11:45 | XMS_ITS | Encounter Summary ---
Author Organization [employer] ([place], [place], [place], [place]) Address [address] [place] [address] Care Team Providers Care Certified Optician Name Role Phone Unavailable Primary Care Provider Unavailabl e Encounter Details Date Type Department Care Team (Late st Contact Info) Description 08/04/2020 Transcribed Document [facility] [place] [address] [place] [address] ProviderPrasanth MD [address] [place] [address] Social History Tobacco Use Types [...] Tish SOLIS on 4 IC. Transferred to [facility] via wheelchair with all belongngs. BRANDON ROE RN - 08/04/2020 19:59 EDT documented in this encounter Plan of Treatment Not on file documented as of this encounter Visit Diagnoses Not on filedocumented in this encounter
--- OUTSIDE RECORDS SUMMARY | 2025-06-06 11:45 | XMS_ITS | Encounter Summary ---
Author Organization [employer] ([place], [place], [place], [place]) Address [address] [place] [address] Care Team Providers Care Environmental Maintenance Worker Name Role Phone Unavailable Primary Care Provider Unavailabl e Encounter Details Date Type Department Care Team (Late st Contact Info) Description 08/04/2020 Transcribed Document [facility] [place] Family [place] [address] [place] [address] ProviderPrasanth MD [address] [place] [address] Social History Tobacco Use Types [...]
--- OUTSIDE RECORDS SUMMARY | 2025-06-06 11:45 | XMS_ITS | Encounter Summary ---
Author Organization [employer] ([place], [place], [place], [place]) Address [address] [place] [address] Care Team Providers Care Dry House Operator Name Role Phone Unavailable Primary Care Provider Unavailabl e Encounter Details Date Type Department Care Team (Late st Contact Info) Description 06/02/2021 Transcribed Document [facility] Family Medicine [address] [place] [address] ProviderPrasanth MD [address] [place] [address] Social History Tobacco Use Types [...] On: 06/02/2021 12:40 EDT by Chang Medrano, Marketing Rotation Associate-Student Nurse Teaching/Learning Assessment Individuals Taught : Patient Readiness to Learn : Cooperative Readiness to Learn : Explanation, Teach back method Learning Style Preferences Patient : Verbal explanation Chang Medrano, Marketing Rotation Associate-Student Nurse - 06/02/2021 15:50 EDT Barriers To Learning : None evident Chang Medrano, Marketing Rotation Associate-Student Nurse - 06/02/2021 15:49 EDT Electronically signed by Carla Shelton Conversion Employee Benefits Insurance Agent Cergarcia at 01/26/2023 9:06 PM CDT documented in this encounter Plan of Treatment Not on file documented as of this encounter Visit Diagnoses Not on filedocumented in this encounter
--- OUTSIDE RECORDS SUMMARY | 2025-06-06 11:45 | XMS_ITS | Encounter Summary ---
Author Organization [employer] ([place], [place], [place], [place]) Address [address] [place] [address] Care Team Providers Care Technology Strategist Name Role Phone Unavailable Primary Care Provider Sharif e Encounter Details Date Type Department Care Team (Late st Contact Info) Description 06/02/2021 Transcribed Document [facility] [place] Family Medicine [address] [place] [address] ProviderPrasanth MD [address] [place] [address] Social History Tobacco Use Types [...] 85 yo male who was admitted to [facility] for chest pain, elevated troponin, NSTEMI, RLE weakness, and dysarthria. PMHx: aortic valve stenosis s/p replacement, Afib, CAD s/p CABG, [place], HLD, HTN, pacemaker, and SDH. CTH: no [...]
--- OUTSIDE RECORDS SUMMARY | 2025-06-06 11:45 | XMS_ITS | Encounter Summary ---
Author Organization [employer] ([place], [place], [place], [place]) Address [address] [place] [address] Care Team Providers Care Supervisor Statement Clerks Name Role Phone Unavailable Primary Care Provider Sharif e Encounter Details Date Type Department Care Team (Late st Contact Info) Description 06/02/2021 Transcribed Document [facility] [place] [facility] [place] [address] ProviderPrasanth MD [facility] [address] Social History Tobacco Use Types [...] CARRANZA RN [place] [facility] pulse generator model [id number], serial #[id number] CABG x5 on 05/29/2008 at 72 Years. [...] EDT Height Source Stated Height Entry Format [place] Height/Length, BANGLADESHI (ft) 5 ft Height/Length BANGLADESHI 9 Inch CLINICALHEIGHT 175.26 cm [place] Body Weight 69.73 kg Weight Source, ED Standing scale Weight Entry Format [place] Weight Samoan lb 198.4 lb CLINICALWEIGHT 90.18 kg Body [...] infection, cerebral vascular accident, transient ischemic attack, [place].. Documents reviewed: Emergency department nurses' notes. Orders [...] Color Yellow Urine Appearance Clear Urine Specific [place] 1.020 Urine pH Dipstick *5.0 Urine Leukocyte [...] % 26.0 % Lymph # 1.59 K/uL [place] % 10.6 % [place] # 0.65 K/uL Eos % 0.5 % Eos # 0.03 Baso % 0.2 % Baso # 0.01 Slide Review No . Chest X-Ray: No infiltrate; no pneumothorax; normal mediastinum; no bony abnormality. Sternotomy wires and pacemaker. Per EDMD. . Radiology results: Radiology Results (Last 48 hours) [id number] -- 06/02/2021 09:50 CT Head WO (06/02/2021 [...] Calls-Consults - 06/02/2021 11:34:00 , [facility].. [...] plan.. Notes: I certify that the physician trust operations assistant performed the services as delegated. This note has been prepared with the use of voice recognition software and may contain sound alike errors and omissions.. documented in this encounter Plan of Treatment Not on file documented as of this encounter Visit Diagnoses Not on filedocumented in this encounter
--- OUTSIDE RECORDS SUMMARY | 2025-06-06 11:45 | XMS_ITS | Encounter Summary ---
Author Organization [employer] ([place], [place], [place], [place]) Address [address] [place] [address] Care Team Providers Care Warehouse Production Worker Name Role Phone Unavailable Primary Care Provider Unavailabl e Encounter Details Date Type Department Care Team (Late st Contact Info) Description 06/02/2021 Transcribed Document [facility] [place] [facility] [place] [address] ProviderPrasanth MD [facility] [place] [address] Social History Tobacco Use Types [...] Communication Barrier : None Primary Language : Montserratian Any Spiritual/Cultural Needs or Requests : No [...] Rhythm : Regular Nail Bed Color : [place] Chest Pain : No Capillary Refill, Left [...]
--- OUTSIDE RECORDS SUMMARY | 2025-06-06 11:45 | XMS_ITS | Encounter Summary ---
Author Organization [employer] ([place], [place], [place], [place]) Address [address] [place] [address] Care Team Providers Care Kitchen Assistant Name Role Phone Unavailable Primary Care Provider Unavailabl e Encounter Details Date Type Department Care Team (Late st Contact Info) Description 08/04/2020 Transcribed Document [facility] [place] Family Medicine [address] [place] [address] ProviderPrasanth [place] [facility] [place] [address] Social History Tobacco Use Types [...] EMS Legal Guardian : No Support Person/Patient Side Sawyer : Yes Support Person/Pt Rep Name : Rosa Elena Cormier- spouse Support Person/Pt Rep Contact Information : [phone] home Want Family/Rep/Phys Notified of Admit : No Emergency Contact #1 : Rosa Elena Emergency Contact #1 Emergency Contact #1 Relationship : spouse Emergency Contact #2 : n/a Emergency Contact #2 Phone Number : n/a Emergency Contact #2 Relationship : n/a Chief Complaint : Tele hold Information Obtained From : Patient Primary Language : Belgian Preferred Communication Mode : Verbal Communication Barrier : None Rehabilitation Therapy Technician Needed : No Tish Calvillo Rn - [...] Scale Risk Level : 25-45 Medium Risk [place] Fall Interventions : Adequate lighting Barriers to [...] Source : Stated Height Entry Format : [place] Height, Feet : 5 ft(Converted to: 152 cm, 60 Inch) Height, Inches : 9 Inch(Converted to: 0 ft 9 Inch, 22.86 cm) Clinical Height : 175.26 cm Weight Source : Standing scale Weight Entry Format : [place] Clinical Dosing Weight : 88.64 kg Weight, Pounds : 195 lb Body Surface Area (BSA) : 2.05 m2 Body Mass Index : 28.9 kg/m2 (HI) [place] Body Weight : 70 kg Tish Calvillo [...] Tish Calvillo Rn - 08/04/2020 20:32 EDT [place] Suicide Severity Rating Scale (C-SSRS) CSSRS Past [...]
--- OUTSIDE RECORDS SUMMARY | 2025-06-06 11:45 | XMS_ITS | Patient Health Record ---
[facility] [address] [facility] [address] [facility] [address] [place] [id number] Care Team Providers Care Image Scientist Name Role Phone Alexei Almodovar Primary Care Provider [phone] ALEXEI ALMODOVAR Unavailable Unavailable Romana Thompson Unavailable [phone] Allergies Allergen (clinical drug ingredient) Drug/Non Drug [...] Notes Problem Atherosclerotic hear t disease of ug[place] coronary artery without angina pectoris (553596827555615) Coronary artery disease involving [place] coronary artery of [place] heart without angina pectoris (I25.10) Active confirmed Problem Iron deficiency anemia (19299251) Iron deficiency anemia, unspecified iron deficiency anemia type (D50.9) Active confirmed Problem Pure hypercholesterolemia (880647475) Pure hypercholesterolemia (E78.00) Active confirmed Problem History of heart valve repair with prosthesis (244492180169259) 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 Problem Primary hypertension (11034151) Primary hypertension (I10) Active confirmed Problem Chronic kidney disease stage 3A (disorder) (986343461) Stage 3a chronic kidney disease (CKD) (N18.31) Active confirmed Vital Signs Heart Rate 60 /min 12/13/2024 Blood pressure diastolic 60 mm Hg 12/13/2024 Height 69 in 12/13/2024 Blood pressure systolic 120 mm Hg 12/13/2024 Weight 202.2 lbs 12/13/2024 BMI 29.86 kg/m2 12/13/2024 Encounters Encounter Location Date Provider Diagnosis [facility] [address] [facility] [address] [place], [place] [id number] 08/23/2024 Alexei [place] Acute UTI N39.0 and Intermittent diarrhea R19.7 [facility] [address] [facility] [address] [place], [place] [id number] 11/14/2024 Alexei [place] Encounter for immunization Z23 [facility] [address] [facility] [address] [place], [place] [id number] 12/13/2024 R Newton Thompson Aortic valve replace d Z95.2 ; Bleeding R58 and Supratherapeutic INR R79.1 [facility] [address] [facility] [address] [place], [place] [id number] 04/30/2025 R Newton Thompson Assessments Encounter Date [...] [address], [place], [place], [id number], Insurance Providers Payer Name Payer Address Payer Phone Subscriber Number Group Number Insured Name Patient Relationship to Insured Coverage Start Date Coverage End Date MEDICARE PART B [address] [address] [place] [address] [phone] [id number] SHIRA GARZA Self - patient is the insured [facility] [address] [place] [address] [id number] SHIRA GARZA Self - patient is the insured Medical (General) History Medical History History ICD Code Coronary Artery Disease Hypertension Hyperlipidemia Aortic Stenosis, s/p Tissue Valve Replac [facility], 10/2019 Pacemaker Surgical History Surgery Date(Month/Year) Quintuple Bypass 2008 Hernia Repair Tissue Aortic Valve Replacement 2019 Wrist Hospitalization History Reason Date(Month/Year)
--- OUTSIDE RECORDS SUMMARY | 2025-06-06 11:45 | XMS_ITS | Encounter Summary ---
Author Organization [employer] ([place], [place], [place], [place]) Address [address] [place] [address] Care Team Providers Care Plant Etiologist Name Role Phone Unavailable Primary Care Provider Unavailabl e Encounter Details Date Type Department Care Team (Late st Contact Info) Description 06/02/2021 Transcribed Document [facility] [place] Family Medicine [address] [place] [address] ProviderPrasanth MD [address] [place] [address] Social History Tobacco Use Types [...] On: 06/02/2021 12:40 EDT by Chang Medrano, Fixed Wing Aircraft Flight Mechanic-Student Nurse Amanda Rubin Bedside Swallowing 2 Exhibits [...] 60 mL Water : No Chang Medrano, Fixed Wing Aircraft Flight Mechanic-Student Nurse - 06/02/2021 15:29 EDT Electronically signed by Nikita [facility] Conversion Fabric Normalizer Richard at 01/26/2023 8:59 PM CDT documented in this encounter Plan of Treatment Not on file documented as of this encounter Visit Diagnoses Not on filedocumented in this encounter
[2025-06-06 12:40] LABS: INR 2.58 (0.9-1.1); Prothrombin Time 26.7 seconds (10.1-12.5)
== END 2025-06-06 23:59 | disposition home or self-care (01) ==
LOC: ACC 11:39 → LAB 11:43
PROVIDERS: PCP Family Medicine; Visit Provider Internal Medicine
DX: Z79.01 Long term (current) use of anticoagulants (principal)
CPT/HCPCS: 36415; 85610

== ENCOUNTER 2025-07-04 12:15 | Outpatient (CLI) | payer MEDICARE, SELFPAY ==
--- OUTSIDE RECORDS SUMMARY | 2024-09-20 06:00 | XMS_ITS ---
[facility] Organization [facility] Address 1210 [facility] 36 [facility] [address] [place] [phone] Care Team Providers Care Premises Technician Name Role Phone Alexei Almodovar Primary Care Provider ALXEEI ALMODOVAR Unavailable Unavailable Allergies Allergen (clinical drug ingredient) Drug/Non Drug Allergy documented on EMR Reaction Allergy Type Onset Date Status clopidogrel Plavix Unknown Drug Allergy Activ e REASON FOR VISIT 4 weeks Encounters Encounter Location Date Provider Diagnosis [facility] 36 [facility] [address] [place] [phone] 09/20/2024 Alexei Almodovar Plan Of Treatment Next Appt Details Provider Name:Romana Nevarez antoni, 08/01/2025 10:00:00 AM, 1210 [facility] 36 [facility], [address], [place], [phone], Progress Notes * SHIRA GARZADOB:1935 ( 89 yo M)Acc No.[id number]:09/20/2024 Progress Notes Patient: SHIRA LYONS Provider: Florinda Almodovar M.D. :1935 A ge:89 Y S ex:Male Date:09/20/2024 Address:[address] [place] [address] [id number] Subjective: * Chief Complaints: * 1 . [...] 2019, age 85. Alcohol: no. 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 * Allergies: P lavix. Objective: * Vitals: Assessment: Plan: * Treatment: * Procedure Codes: G 2211 Complex e/m visit add on * Images: Billing Information: * Visit Code: * Procedure Codes: G2211 Complex e/m visit add on. * Electronic signature of Kia Almodovar MD on 07/04/2025 at 12:22 PM EDT Sign off status: Pending * Provider: Florinda Almodovar M.D. Date: 11/21/2023 Generated for Teodora rivera/Nita/Kaushikitting on: 0 07/04/2025 12:22 PM EDT
--- OUTSIDE RECORDS SUMMARY | 2024-10-19 06:30 | XMS_ITS ---
Author Organization [facility] Address [facility] [address] [place] [phone] Care Team Providers Care Employee Benefits Coordinator Name Role Phone Alexei Almodovar Primary Care Provider ALEXEI ALMODOVAR Unavailable Unavailable REASON FOR VISIT flu vaccine Encounters Encounter Location Date Provider Diagnosis [facility] [address] [place] [id number] 10/19/2024 Alexei Almodovar Plan Of Treatment Next Appt Details Provider Name:Romana Whittington, 08/01/2025 10:00:00 AM, [address], [place], [phone], Progress Notes * SHIRA GARZADOB:1935 ( 89 yo M)Acc No.[id number]:10/19/2024 Patient: SHIRA LYONS Provider: Florinda Almodovar M.D. :1935 A ge:89 Y S ex:Male Date:10/19/2024 Address:[address] [place] [address] [place], [id number] Subjective: * Chief Complaints: * 1 . Flu vaccine. * Medical History: Objective: * Vitals: Assessment: Plan: * Treatment: * Images: Billing Information: * Visit Code: * Procedure Codes: * Electronic signature of Kia Almodovar MD on 07/04/2025 at 12:22 PM EDT Sign off status: Pending * Provider: Florinda Almodovar M.D. Date: 0 10/19/2024 Generated for Teodora rivera/Nita/Kaushikitting on: 0 07/04/2025 12:22 PM EDT
--- OUTSIDE RECORDS SUMMARY | 2024-11-14 06:45 | XMS_ITS ---
Author Organization Sowmya Address [facility] [facility] [address] [place] [id number] Care Team Providers Care Trailer Mechanic Name Role Phone Alexei Almodovar Primary Care [...] Provider Diagnosis Jose [address] [facility] [address] [place] [id number] 11/14/2024 Alexei Almodovar Encounter for immunization Z23 Assessments Encounter Date Diagnosis (ICD Code) Assessment Notes Treatment Notes Treatment Clinical Notes Section Notes 11/14/2024 Encounter for immunization (ICD-10 - Z23) Plan Of Treatment Next Appt Details Provider Name:Romana Whittington, 08/01/2025 10:00:00 AM, [address] [facility], [address], [place], [phone], Progress Notes * SYLVIE GARZA:1935 ( 89 yo M)Acc No.[id number]:11/14/2024 Patient: SHIRA LYONS Provider: Florinda Almodovar M.D. :1935 A ge:89 Y S ex:Male Date:11/14/2024 Address:[address] [place], [place] [address]Eddie Cox [facility] Subjective: * Chief Complaints: * 1 . [...] of Kia Almodovar MD on 07/04/2025 at 12:21 PM EDT Sign off status: Pending * Provider: Florinda Almodovar M.D. Date: 0 11/14/2024 Generated for Teodora rivera/Nita/Charles on: 0 07/04/2025 12:21 PM EDT
--- OUTSIDE RECORDS SUMMARY | 2024-12-13 12:00 | XMS_ITS ---
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 Vital Signs Blood pressure systolic 120 mm Hg 12/14/19 25 Blood pressure diastolic 60 mm Hg 025 Heart Rate 60 /min 12/13/2024 Height 69 in 12/13/2024 Weight 202.2 lbs 12/13/2024 BMI 29.86 kg/m2 12/13/2024 Encounters Encounter Location Date Provider Diagnosis [address] [facility] [address] [place] [id number] 12/13/2024 Romana Thompson Aortic valve replace d [...] Up: with Coumadin Cli yamilex, Reason: Provider Name:Romana Whittington, 08/01/2025 10:00:00 AM, [address] [facility] 36 [facility], [address], [place], [id number], Progress Notes * SHIRA GARZADOB:1935 ( 89 yo M)Acc No.[id number]:12/13/2024 Progress Notes Patient: Kenny VERONIKASHIRA Enamorado Provider: Romana Thompson M.D. :1935 A ge:89 Y S ex:Male Date:12/13/2024 Address:[address] [place] [address] Eddie [place]E [id number] Pcp:Alexei Almodovar Subjective: * Chief Complaints: * [...] 85. Alcohol: no. 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 * Medications: T aking Aspirin 81 MG [...] G 2211 Complex e/[place] [address] [place], [address] PROTHROMBIN TIME, Modifiers: QW , 13186 CAPILLARY BLOOD DRAW, 37468 CBC WITH AUTO DIFF, 3074F SYST BP LT 130 MM HG, 3078F DIAST BP < 80 MM HG * Follow Up: w [facility] * Images: Billing Information: * Visit Code: 82948 Office Visit, Est Pt., Level 3. * Procedure Codes: G2211 Complex e/[place] [address] [place]. [address] PROTHROMBIN TIME. Modifiers: QW 45531 CAPILLARY BLOOD DRAW. 85307 CBC WITH AUTO DIFF. 3074F SYST BP LT 130 MM HG. 3078F DIAST BP < 80 MM HG. * Electronic signature of Romana Thompson MD on 07/04/2025 at 12:18 PM EDT Sign off status: Pending * Provider: Romana Thompson M.D. Date: 0 12/13/2024 Generated for Teodora rivera/Nita/Kaushikitting on: 0 07/04/2025 12:18 PM EDT History and Physical Notes * [...]
--- OUTSIDE RECORDS SUMMARY | 2025-06-19 07:00 | XMS_ITS ---
Author Organization [facility] Address [address] [facility] [address] [place] [id number] Care Team Providers Care Padder Cushion Name Role Phone Alexei Almodovar Primary Care Provider [phone] ALEXEI ALMODOVAR Unavailable Unavailable REASON FOR VISIT check up Encounters Encounter Location Date Provider Diagnosis [facility] [address] [place] [id number] 06/19/2025 Alexei Almodovar Plan Of Treatment Next Appt Details Provider Name:Romana Nevarez antoni, 08/01/2025 10:00:00 AM, [address], [place], [phone], Progress Notes * SHIRA GARZADOB:1935 ( 89 yo M)Acc No.[id number]:06/19/2025 Progress Notes Patient: SHIRA LYONS Provider: Florinda Almodovar M.D. :1935 A ge:89 Y S ex:Male Date:06/19/2025 Address:[address] [place] [address] [place], [id number] Subjective: * Chief Complaints: * 1 . Check up. * Medical History: Objective: * Vitals: Assessment: Plan: * Treatment: * Images: Billing Information: * Visit Code: * Procedure Codes: * Electronic signature of Kia Almodovar MD on 07/04/2025 at 12:18 PM EDT Sign off status: Pending * Provider: Florinda Almodovar M.D. Date: 0 06/19/2025 Generated for Teodora rivera/Nita/Charles on: 0 07/04/2025 12:18 PM EDT
--- OUTSIDE RECORDS SUMMARY | 2025-07-04 12:17 | XMS_ITS | Encounter Summary ---
Author Organization [employer] ([place], [place], [place], [place]) Address [address] [place] [address] Care Team Providers Care Hospitality Aide Name Role Phone Unavailable Primary Care Provider Unavailabl e Encounter Details Date Type Department Care Team (Late st Contact Info) Description 11/05/2019 Transcribed Document [facility] [place] [address] [place] [address] ProviderPrasanth MD [address] [place] [address] Social History Tobacco Use Types Packs/Day Years Used Date Smoking Tobacco: Never Assessed Sex and Gender Information Value Date Recorded Sex Assigned at Not on file Legal Sex Male 6:49 PM CDT Gender Identity Not on file Sexual Orientation Not on file documented as of this encounter Miscellaneous Notes * Cerner Conversion Note - Prasanth ProviderMD - 11/05/2019 5:54 PM WHITEWASHER On Going Discharge Planning Entered On: 11/05/2019 17:54 EST Performed On: 11/05/2019 17:54 EST by ROSANA CALLEJAS RN-Staff EngineerChartered Financial Analyst Progress Note Discharge Arrangements : Patient Post-Acute Information Patient Name: SHIRA GARZA HORACIO Gender: Male : 37 Age: 84 Years No Post-Acute Placement(s) Listed No Post-Acute Service(s) Listed No Curaspan Referral(s) Listed Discharge Plan Comment : home w/ ROSANA CALLEJAS RN-Staff Engineer - 11/05/2019 17:54 EST Narrative Progress Note [...] and assist w/needs as approp. ROSANA CALLEJAS, RN-Staff Engineer - 11/05/2019 17:54 EST Electronically signed by Nikita [facility] Conversion Casino Slot Supervisor Cerner at 01/26/2023 8:50 PM CDT documented in this encounter Plan of Treatment Not on file documented as of this encounter Visit Diagnoses Not on filedocumented in this encounter
--- OUTSIDE RECORDS SUMMARY | 2025-07-04 12:17 | XMS_ITS | Encounter Summary ---
Author Organization [employer] ([place], [place], [place], [place]) Address [address] [place] [address] Care Team Providers Care Heat Treat Puller Name Role Phone Unavailable Primary Care Provider Unavailabl e Encounter Details Date Type Department Care Team (Late st Contact Info) Description 11/05/2019 Transcribed Document [facility] [place] Family Medicine [address] [place] [address] ProviderPrasanth MD [address] [place] [address] Social History Tobacco Use Types Packs/Day Years Used Date Smoking Tobacco: Never Assessed Sex and Gender Information Value Date Recorded Sex Assigned at Not on file Legal Sex Male 6:49 PM CDT Gender Identity Not on file Sexual Orientation Not on file documented as of this encounter Miscellaneous Notes * Cerner Conversion Note - Prasanth ProviderMD - 11/05/2019 9:53 AM RESEARCH ADMINISTRATOR Evaluation, Physical Therapy Entered On: 11/05/2019 15:26 [...] ROM : WF Right LE Strength : [facility] LLE Active ROM : WF Left [...] PB BROWNLEE, PT - 11/05/2019 15:11 EST Revenue Audit Clerk Goals Mobility/Bed Mobility LTG PT Grid Goal [...] PB BROWNLEE, PT - 11/05/2019 15:11 EST [place] PT Charges PT Eval Moderate Complexity : 1 PB BROWNLEE, PT - 11/05/2019 15:11 EST Electronically signed by Nikita [facility] Conversion Training Administrator Cerner at 01/26/2023 8:52 PM CDT documented in this encounter Plan of Treatment Not on file documented as of this encounter Visit Diagnoses Not on filedocumented in this encounter
--- OUTSIDE RECORDS SUMMARY | 2025-07-04 12:17 | XMS_ITS | Encounter Summary ---
Author Organization [employer] ([place], [place], [place], [place]) Address [address] [place] [address] Care Team Providers Care Director Of Staff Development Name Role Phone Unavailable Primary Care Provider Unavailabl e Encounter Details Date Type Department Care Team (Late st Contact Info) Description 11/04/2019 Transcribed Document [facility] [place] Family Medicine [address] [place] [address] ProviderPrasanth MD [address] [place] [address] Social History Tobacco Use Types Packs/Day Years Used Date Smoking Tobacco: Never Assessed Sex and Gender Information Value Date Recorded Sex Assigned at Not on file Legal Sex Male 6:49 PM CDT Gender Identity Not on file Sexual Orientation Not on file documented as of this encounter Miscellaneous Notes * Cerner Conversion Note - Historical ProviderMD - 11/04/2019 11:15 PM LEASING SPECIALIST ED Discharge Entered On: 11/04/2019 23:36 EST [...] 11/04/2019 23:34 EST Electronically signed by Nikita [facility] Conversion Technician Support Association Devynner at 01/26/2023 9:09 PM CDT documented in this encounter Plan of Treatment Not on file documented as of this encounter Visit Diagnoses Not on filedocumented in this encounter
--- OUTSIDE RECORDS SUMMARY | 2025-07-04 12:18 | XMS_ITS | Encounter Summary ---
Author Organization [employer] ([place], [place], [place], [place]) Address [address] [place] [address] Care Team Providers Care Casino Runner Name Role Phone Unavailable Primary Care Provider Unavailabl e Encounter Details Date Type Department Care Team (Late st Contact Info) Description 11/05/2019 Transcribed Document [facility] [place] [address] [place] [address] ProviderPrasanth MD [address] [place] [address] Social History Tobacco Use Types Packs/Day Years Used Date Smoking Tobacco: Never Assessed Sex and Gender Information Value Date Recorded Sex Assigned at Not on file Legal Sex Male 6:49 PM CDT Gender Identity Not on file Sexual Orientation Not on file documented as of this encounter Miscellaneous Notes * Cerner Conversion Note - Prasanth ProviderMD - 11/05/2019 5:51 PM COMPOSITION ROOFER Initial Discharge Planning Entered On: 11/05/2019 17:54 EST Performed On: 11/05/2019 17:51 EST by ROSANA CALLEJAS RN-National Account Manager Initial Assessment I Previously Documented Living [...] Listed? : Yes Medical Durable Power of Leather Cleaner Name : Legal Guardian : No ROSANA CALLEJAS RN-National Account Manager - 11/05/2019 17:51 EST Initial Assessment II Sensory and Motor Deficits : None Deficit Description : glasses Current Home Treatments and Equipment : None Services and Community Resources Addl Comments : Workout @ local Facility Gym 3x/wk Does the Patient have a Floor to SNF Benefit? : Yes ROSANA CALLEJAS RN-National Account Manager - 11/05/2019 17:51 EST Discharge Needs I Anticipated Discharge To, CM : Home independently Current Home Treatment/Equipment : Current Home Treatment/Equipment No qualifying data available. Documentation Status Complete : Yes ROSANA CALLEJAS RN-National Account Manager - 11/05/2019 17:51 EST Discharge Needs II Professional Skilled Services : Professional Skilled Services No qualifying data available. Needs Assistance with Transportation : No ROSANA CALLEJAS RN-National Account Manager - 11/05/2019 17:51 EST Narrative Note Narrative [...] and assist w/needs as approp. ROSANA CALLEJAS RN-National Account Manager - 11/05/2019 17:51 EST documented in this encounter Plan of Treatment Not on file documented as of this encounter Visit Diagnoses Not on filedocumented in this encounter
--- OUTSIDE RECORDS SUMMARY | 2025-07-04 12:18 | XMS_ITS | Encounter Summary ---
Author Organization [employer] ([place], [place], [place], [place]) Address [address] [place] [address] Care Team Providers Care Coffee Sommelier Name Role Phone Unavailable Primary Care Provider Unavailabl e Encounter Details Date Type Department Care Team (Late st Contact Info) Description 11/05/2019 Transcribed Document [facility] Neurology - [address] [facility] [address] [place] [address] [place] [address] [place] [address]. [address] [place] [id number] Social History Tobacco Use Types Packs/Day Years [...]
--- OUTSIDE RECORDS SUMMARY | 2025-07-04 12:18 | XMS_ITS | Encounter Summary ---
Author Organization [employer] ([place], [place], [place], [place]) Address [address] [place] [address] Care Team Providers Care Regulator Assembler Name Role Phone Unavailable Primary Care Provider Unavailabl e Encounter Details Date Type Department Care Team (Late st Contact Info) Description 11/05/2019 Transcribed Document [facility] [place] Family Medicine [address] [place] [address] ProviderPrasanth MD [address] [place] [address] Social History Tobacco Use Types Packs/Day Years Used Date Smoking Tobacco: Never Assessed Sex and Gender Information Value Date Recorded Sex Assigned at Not on file Legal Sex Male 6:49 PM CDT Gender Identity Not on file Sexual Orientation Not on file documented as of this encounter Miscellaneous Notes * Cerner Conversion Note - Historical ProviderMD - 11/05/2019 8:00 AM MASTIC MAN Consult Phone Call Documentation Entered On: 11/05/2019 8:22 EST Performed On: 11/05/2019 8:00 EST by Iris Banerjee, [facility] Unit Coord Phone Call for Consults Consult Phone Call/Page Attempt : First call Consult Reason : 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
--- OUTSIDE RECORDS SUMMARY | 2025-07-04 12:18 | XMS_ITS | Encounter Summary ---
Author Organization [employer] ([place], [place], [place], [place]) Address [address] [place] [address] Care Team Providers Care Crew Boat Operator Name Role Phone Unavailable Primary Care Provider Unavailabl e Encounter Details Date Type Department Care Team (Late st Contact Info) Description 09/25/2019 Transcribed Document [facility] [place] [address] [place] [address] ProviderPrasanth MD [facility] [place] [address] Social History Tobacco Use Types Packs/Day Years Used Date Smoking Tobacco: Never Assessed Sex and Gender Information Value Date Recorded Sex Assigned at Not on file Legal Sex Male 6:49 PM CDT Gender Identity Not on file Sexual Orientation Not on file documented as of this encounter Miscellaneous Notes * Cerner Conversion Note - Historical ProviderMD - 09/25/2019 10:53 PM APPOINTMENT SETTER Event Note Entered On: 09/25/2019 22:54 EST Performed On: 09/25/2019 22:53 EST by Phyllis Singletary RN Event Note Description of Event : Transferred patient to [facility] after giving report by phone to Alphonse SOLIS. Phyllis Singletary RN - 09/25/2019 22:53 EST documented in this encounter Plan of Treatment Not on file documented as of this encounter Visit Diagnoses Not on filedocumented in this encounter
--- OUTSIDE RECORDS SUMMARY | 2025-07-04 12:18 | XMS_ITS | Encounter Summary ---
Author Organization [employer] ([place], [place], [place], [place]) Address [address] [place] [address] Care Team Providers Care Java Software Name Role Phone Unavailable Primary Care Provider Unavailabl e Encounter Details Date Type Department Care Team (Late st Contact Info) Description 11/07/2019 Transcribed Document [facility] [place] [facility] [place] [address] ProviderPrasanth MD [facility] [place] [address] Social History Tobacco Use Types Packs/Day Years Used Date Smoking Tobacco: Never Assessed Sex and Gender Information Value Date Recorded Sex Assigned at Not on file Legal Sex Male 6:49 PM CDT Gender Identity Not on file Sexual Orientation Not on file documented as of this encounter Miscellaneous Notes * Cerner Conversion Note - Prasanth Sanchez MD - 11/07/2019 4:54 PM MAINTENANCE CHIEF DATE OF PROCEDURE: 11/07/2019 SURGEON: Dionicio Soliman [...] A [employer] lead model 2088, serial #[id number], was affixed to the right ventricular apex [...] candidate mid posterolateral vein. A [employer] inside sales lead model 1458, serial #[id number], was advanced to the distal aspect, and using an M3-M2 configuration, the capture threshold was 1.5 V with lead impedance of 930 ohms. The delivery system was removed in a standard fashion. Next, a [employer] [place] inside sales lead model 2088, serial #[id number], was affixed to the right atrial appendage where the Q capture threshold was 0.5 V with lead impedance of 490 ohms, and sensed P-wave 2 mV. All leads were affixed to the prepectoralis fascia using interrupted 0 silk sutures around the retention collars. The pocket was irrigated with antibiotic solution. Hemostasis was achieved. A [employer] Medical pulse generator model [id number], serial #[id number], was attached to the leads and placed [...] device clinic followup, and home remote monitoring. /[id number] Dionicio Soliman MD TCR/AQ / TCR / MODL /[id number] documented in this encounter Plan of Treatment Not on file documented as of this encounter Visit Diagnoses Not on filedocumented in this encounter
--- OUTSIDE RECORDS SUMMARY | 2025-07-04 12:18 | XMS_ITS | Encounter Summary ---
Author Organization [employer] ([place], [place], [place], [place]) Address [address] [place] [address] Care Team Providers Care Skeet Operator Name Role Phone Unavailable Primary Care Provider Unavailabl e Encounter Details Date Type Department Care Team (Late st Contact Info) Description 11/05/2019 Transcribed Document [facility] [place] Family Medicine [address] [place] [address] ProviderPrasanth MD [address] [place] [address] Social History Tobacco Use Types Packs/Day Years Used Date Smoking Tobacco: Never Assessed Sex and Gender Information Value Date Recorded Sex Assigned at Not on file Legal Sex Male 6:49 PM CDT Gender Identity Not on file Sexual Orientation Not on file documented as of this encounter Miscellaneous Notes * Cerner Conversion Note - Historical ProviderMD - 11/05/2019 5:00 PM QUANTITATIVE ANALYST Chart Check - Review Order Profile Entered On: 11/05/2019 17:41 EST Performed On: 11/05/2019 17:00 EST by MARIBELL MIMS RN Chart Check Powerplans Initiated/Discontinued as Appropriate : Yes MARIBELL MIMS RN - 11/05/2019 17:41 EST Electronically signed by Nikita [facility] Conversion Chief Digital Media Officer Devynner at 01/26/2023 8:55 PM CDT documented in this encounter Plan of Treatment Not on file documented as of this encounter Visit Diagnoses Not on filedocumented in this encounter
--- OUTSIDE RECORDS SUMMARY | 2025-07-04 12:18 | XMS_ITS | Encounter Summary ---
Author Organization [email or web address] ([place], [place], [place], [place]) Address [address] [place] [address] Care Team Providers Care Churner Name Role Phone Unavailable Primary Care Provider Unavailabl e Encounter Details Date Type Department Care Team (Late st Contact Info) Description 10/29/2019 Transcribed Document [facility] [place] [address] [place] [address] ProviderPrasanth MD [address] [place] [address] Social History Tobacco Use Types Packs/Day Years Used Date Smoking Tobacco: Never Assessed Sex and Gender Information Value Date Recorded Sex Assigned at Not on file Legal Sex Male 6:49 PM CDT Gender Identity Not on file Sexual Orientation Not on file documented as of this encounter Miscellaneous Notes * Cerner Conversion Note - Historical ProviderMD - 10/29/2019 9:12 AM PALAEONTOLOGIST Education-(VTE) / (DVT) Entered On: 10/30/2019 4:52 EST Performed On: 10/29/2019 9:12 EST by Rimma Blackmon RN Teaching/Learning Assessment Barriers To Learning : None evident Individuals Taught : Patient, Family member Learning Style Preferences Patient : None Rimma Blackmon, WILL - 10/30/2019 4:52 EST Electronically signed by Nikita [facility] Conversion Research Test Engine Evaluator Cerner at 01/26/2023 9:07 PM CDT documented in this encounter Plan of Treatment Not on file documented as of this encounter Visit Diagnoses Not on filedocumented in this encounter
--- OUTSIDE RECORDS SUMMARY | 2025-07-04 12:18 | XMS_ITS | Encounter Summary ---
Author Organization [employer] ([place], [place], [place], [place]) Address [address] [place] [address] Care Team Providers Care Neonatologist Name Role Phone Unavailable Primary Care Provider Unavailabl e Encounter Details Date Type Department Care Team (Late st Contact Info) Description 06/02/2021 Transcribed Document [facility] [place] [facility] [place] [address] ProviderPrasanth MD [facility] [place] [address] Social History Tobacco Use Types [...] continuous telemetry monitoring - No plans for [facility] at this time - Continue medical [...]
--- OUTSIDE RECORDS SUMMARY | 2025-07-04 12:18 | XMS_ITS | Encounter Summary ---
Author Organization [employer] ([place], [place], [place], [place]) Address [address] [place] [address] Care Team Providers Care High School Librarian Name Role Phone Unavailable Primary Care Provider Unavailabl e Encounter Details Date Type Department Care Team (Late st Contact Info) Description 11/06/2019 Transcribed Document [facility] Radiology [address] [place] [address] Abel Kapadia MD [address] [place] [address] [address] [place] [address] Social History Tobacco Use Types Packs/Day Years [...] Discharge PRIMARY CARE PHYSICIAN: Dr. Marcelino Caldera, [facility]. REFERRING PHYSICIAN: Dr. Beckman, [facility] , 1935. CURRENT COMPLAINT: Falls, dizziness, irregular heartbeat. HISTORY OF PRESENT ILLNESS: Shira Garza is an 84-year-old man, , living in the [facility], who recently underwent a transcatheter aortic valve [...] At risk for sleep apnea / IMO [id number] / Confirmed Shortness of breath / SNOMED CT 707794047 / Confirmed Hypertension / SNOMED CT 39790806 / Confirmed Wears glasses / SNOMED CT 460064956 / Confirmed, Active Problems (11) Aortic stenosis [...] gallop, S1+ S2 No S3 or S4 Hayes.. Gastrointestinal: Soft, Non-tender, Non-distended, Normal bowel sounds. [...] (NOV 04) Radiology Results (Last 48 hours) [id number] -- 11/04/2019 21:19 CT Head WO (11/04/2019 [...]
--- OUTSIDE RECORDS SUMMARY | 2025-07-04 12:18 | XMS_ITS | Encounter Summary ---
Author Organization [employer] ([place], [place], [place], [place]) Address [address] [place] [address] Care Team Providers Care Naphthalene Operator Helper Name Role Phone Unavailable Primary Care Provider Unavailabl e Encounter Details Date Type Department Care Team (Late st Contact Info) Description 06/02/2021 Transcribed Document [facility] [place] [facility] [place] [address] ProviderPrasanth MD Formerly [facility] [address] Social History Tobacco Use Types [...] : 2 - Emergent Tracking Group : [facility] ED Marisela Mendenhall RN - 06/02/2021 [...] EDT) Problems(Active) Aortic valve stenosis (SNOMED CT :033539965 ) Name of Problem: Aortic valve stenosis ; Recorder: JIMI MCNEIL RN; Confirmation: Confirmed ; Classification: Medical ; Code: [id number] ; Contributor System: Paws for Life ; Last Updated: 08/05/2020 10:36 EDT ; Life Cycle Status: Active ; Vocabulary: SNOMED CT At risk for sleep apnea (IMO :67763582 ) Name of Problem: At risk for sleep apnea ; Recorder: SYSTEM, SYSTEM; Confirmation: Confirmed ; Classification: Medical ; Code: 75057759 ; Last Updated: 11/14/2018 7:19 EST ; Life Cycle Date: 11/14/2018 ; Life Cycle Status: Active ; Vocabulary: IMO At risk for sleep apnea (IMO :65713620 ) Name of Problem: At risk for sleep apnea ; Recorder: SYSTEM, SYSTEM; Confirmation: Confirmed ; Classification: Medical ; Code: 51371477 ; Last Updated: 08/04/2020 12:17 EDT ; Life Cycle Date: 08/04/2020 ; Life Cycle Status: Active ; Vocabulary: IMO Atrial fibrillation (SNOMED CT :86077127 ) Name of Problem: Atrial fibrillation ; Recorder: JIMI MCNEIL RN; Confirmation: Confirmed ; Classification: Medical ; Code: 87039609 ; Contributor System: [employer] The[employer]Chart ; Last Updated: 08/05/2020 10:36 EDT ; Life Cycle Status: Active ; Vocabulary: SNOMED CT Atrial flutter (SNOMED CT :6694521 ) Name of Problem: Atrial flutter ; Recorder: RADHA TERRAZAS RN; Confirmation: Confirmed ; Classification: Patient Stated ; Code: 3773285 ; Contributor System: PowerChart ; Last Updated: 11/14/2018 7:26 EST ; Life Cycle Date: 11/14/2018 ; Life Cycle Status: Active ; Vocabulary: SNOMED CT Benign neoplastic disease (SNOMED CT :72669974 ) Name of Problem: Benign neoplastic disease ; Recorder: AV KING RN; Confirmation: Confirmed ; Classification: Patient Stated ; Code: 92833925 ; Contributor System: PowerChart ; Last Updated: 09/11/2019 7:15 EST ; Life Cycle Date: 09/11/2019 ; Life Cycle Status: Active ; Vocabulary: SNOMED CT CAD - Coronary artery disease (SNOMED CT :2210024190 ) Name of Problem: CAD - Coronary artery disease ; Recorder: JIMI MCNEIL RN; Confirmation: Confirmed ; Classification: Medical ; Code: 7389978536 ; Contributor System: PowerChart ; Last Updated: 08/05/2020 10:36 EDT ; Life Cycle Status: Active ; Vocabulary: SNOMED CT CAD (coronary artery disease) (SNOMED CT :61419856 ) Name of Problem: CAD (coronary artery disease) ; Recorder: RADHA TERRAZAS RN; Confirmation: Confirmed ; Classification: Patient Stated ; Code: 75950967 ; Contributor System: PowerChart ; Last Updated: 11/14/2018 7:27 EST ; Life Cycle Date: 11/14/2018 ; Life Cycle Status: Active ; Vocabulary: SNOMED CT Chest pain (SNOMED CT :17620909 ) Name of Problem: Chest pain ; Recorder: SALLY BARNETT RN; Confirmation: Confirmed ; Classification: Patient Stated ; Code: 54896497 ; Contributor System: PowerChart ; Last Updated: 07/22/2020 9:12 EDT ; Life Cycle Date: 07/22/2020 ; Life Cycle Status: Active ; Vocabulary: SNOMED CT H/O aortic valve replacement (SNOMED CT :8156837848 ) Name of Problem: H/O aortic valve replacement ; Recorder: WALTER POWELL RN; Confirmation: Confirmed ; Classification: Patient Stated ; Code: 7594157676 ; Contributor System: PowerChart ; Last Updated: 08/04/2020 12:06 EDT ; Life Cycle Date: 08/04/2020 ; Life Cycle Status: Active ; Vocabulary: SNOMED CT Hard of hearing (SNOMED CT :910497065 ) Name of Problem: Hard of hearing ; Recorder: WALTER POWELL RN; Confirmation: Confirmed ; Classification: Patient Stated ; Code: 899431995 ; Contributor System: PowerChart ; Last Updated: 08/04/2020 11:53 EDT ; Life Cycle Date: 08/04/2020 ; Life Cycle Status: Active ; Vocabulary: SNOMED CT HLD - Hyperlipidemia (SNOMED CT :038920093 ) Name of Problem: HLD - Hyperlipidemia ; Recorder: JIMI MCNEIL RN; Confirmation: Confirmed ; Classification: Medical ; Code: 133057027 ; Contributor System: PowerChart ; Last Updated: 08/05/2020 10:36 EDT ; Life Cycle Status: Active ; Vocabulary: SNOMED CT HTN - Hypertension (SNOMED CT :2248537700 ) Name of Problem: HTN - Hypertension ; Recorder: JIMI MCNEIL RN; Confirmation: Confirmed ; Classification: Medical ; Code: 3458741346 ; Contributor System: PowerChart ; Last Updated: 08/05/2020 10:36 EDT ; Life Cycle Status: Active ; Vocabulary: SNOMED CT Hyperlipidemia (SNOMED CT :05855207 ) Name of Problem: Hyperlipidemia ; Recorder: AV KING RN; Confirmation: Confirmed ; Classification: Patient Stated ; Code: 79859597 ; Contributor System: PowerChart ; Last Updated: 09/11/2019 6:25 EST ; Life Cycle Date: 09/11/2019 ; Life Cycle Status: Active ; Vocabulary: SNOMED CT Hyperlipidemia (SNOMED CT :97891055 ) Name of Problem: Hyperlipidemia ; Recorder: WALTER POWELL RN; Confirmation: Confirmed ; Classification: Patient Stated ; Code: 97899356 ; Contributor System: PowerChart ; Last Updated: 08/04/2020 11:53 EDT ; Life Cycle Date: 08/04/2020 ; Life Cycle Status: Active ; Vocabulary: SNOMED CT Hypertension (SNOMED CT :96664078 ) Name of Problem: Hypertension ; Recorder: HILDA ANTHONY RN; Confirmation: Confirmed ; Classification: Medical ; Code: 64184264 ; Contributor System: PowerChart ; Last Updated: 10/26/2019 9:33 EST ; Life Cycle Date: 10/26/2019 ; Life Cycle Status: Active ; Vocabulary: SNOMED CT Hypertension (SNOMED CT :19493097 ) Name of Problem: Hypertension ; Recorder: WALTER POWELL RN; Confirmation: Confirmed ; Classification: Patient Stated ; Code: 96233412 ; Contributor System: PowerChart ; Last Updated: 08/04/2020 11:53 EDT ; Life Cycle Date: 08/04/2020 ; Life Cycle Status: Active ; Vocabulary: SNOMED CT Impaired vision in both eyes (SNOMED CT :7594121714 ) Name of Problem: Impaired vision in both eyes ; Recorder: AUSTIN FOFANA RN; Confirmation: Confirmed ; Classification: Patient Stated ; Code: 2354383507 ; Contributor System: PowerChart ; Last Updated: 12/03/2019 9:57 EST ; Life Cycle Date: 12/03/2019 ; Life Cycle Status: Active ; Vocabulary: SNOMED CT Right bundle branch block (SNOMED CT :04014101 ) Name of Problem: Right bundle branch block ; Recorder: AV KING RN; Confirmation: Confirmed ; Classification: Patient Stated ; Code: 61675876 ; Contributor System: AR[employer]x The[employer]Chart ; Last Updated: 09/11/2019 7:12 EST ; Life Cycle Date: 09/11/2019 ; Life Cycle Status: Active ; Vocabulary: SNOMED CT Shortness of breath (SNOMED CT :847025797 ) Name of Problem: Shortness of breath ; Recorder: HILDA ANTHONY RN; Confirmation: Confirmed ; Classification: Medical ; Code: 655230975 ; Contributor System: [employer] The[employer]Chart ; Last Updated: 10/26/2019 9:34 EST ; Life Cycle Date: 10/26/2019 ; Life Cycle Status: Active ; Vocabulary: SNOMED CT Wears glasses (SNOMED CT :898874324 ) Name of Problem: Wears glasses ; Recorder: HILDA ANTHONY RN; Confirmation: Confirmed ; Classification: Medical ; Code: 031360181 ; Contributor System: Paws for Life ; Last Updated: 10/26/2019 9:32 EST ; Life Cycle Date: 10/26/2019 ; Life Cycle Status: Active ; Vocabulary: SNOMED CT Diagnoses(Active) Chest pain Date: 06/02/2021 ; Diagnosis Type: Reason For Visit ; Confirmation: Complaint of ; Clinical Dx: Chest pain ; Classification: Medical ; Clinical Service: Non-Specified ; Code: PNED ; Probability: 0 ; Diagnosis Code: [id number] Weakness Date: 06/02/2021 ; Diagnosis Type: Reason For Visit ; Confirmation: Complaint of ; Clinical Dx: Weakness ; Classification: Medical ; Clinical Service: Non-Specified ; Code: PNED ; Probability: 0 ; Diagnosis Code: [id number] ED Height and Weight Height Source : Stated Height Entry Format : [place] Height, Feet : 5 ft(Converted to: 152 cm, 60 Inch) Height, Inches : 9 Inch(Converted to: 0 ft 9 Inch, 22.86 cm) Clinical Height : 175.26 cm Weight Source, ED : Standing scale Weight Entry Format : [place] Weight, Pounds : 198.4 lb Clinical Dosing Weight : 90.18 kg Body Surface Area (BSA) : 2.06 m2 Body Mass Index : 29.4 kg/m2 (HI) [place] Body Weight (IBW) : 69.73 kg Marisela Mendenhall, WILL - 06/02/2021 10:01 EDT Electronically signed by Nikita [facility] Conversion Security And Compliance Project Manager Cerner at 01/26/2023 8:50 PM CDT documented in this encounter Plan of Treatment Not on file documented as of this encounter Visit Diagnoses Not on filedocumented in this encounter
--- OUTSIDE RECORDS SUMMARY | 2025-07-04 12:18 | XMS_ITS | Encounter Summary ---
Author Organization [email or web address] ([place], [place], [place], [place]) Address [address] [place] [address] Care Team Providers Care Plastics Fitter Name Role Phone Unavailable Primary Care Provider Unavailabl e Encounter Details Date Type Department Care Team (Late st Contact Info) Description 11/05/2019 Transcribed Document [facility] [place] Family Medicine [address] [place] [address] ProviderPrasanth MD [address] [place] [address] Social History Tobacco Use Types Packs/Day Years Used Date Smoking Tobacco: Never Assessed Sex and Gender Information Value Date Recorded Sex Assigned at Not on file Legal Sex Male 6:49 PM CDT Gender Identity Not on file Sexual Orientation Not on file documented as of this encounter Miscellaneous Notes * Cerner Conversion Note - Historical ProviderMD - 11/05/2019 5:00 AM AUTOMATION CONTROLS ENGINEER Chart Check - Review Order Profile Entered On: 11/05/2019 4:51 EST Performed On: 11/05/2019 5:00 EST by DESMOND CRUZ RN Chart Check Powerplans Initiated/Discontinued as Appropriate : Yes All Active Orders Reviewed : Yes DESMOND CRUZ RN - 11/05/2019 4:51 EST Electronically signed by Nikita [facility] Conversion Board Worker Cerner at 01/26/2023 9:05 PM CDT documented in this encounter Plan of Treatment Not on file documented as of this encounter Visit Diagnoses Not on filedocumented in this encounter
--- OUTSIDE RECORDS SUMMARY | 2025-07-04 12:18 | XMS_ITS | Encounter Summary ---
Author Organization [employer] ([place], [place], [place], [place]) Address [address] [place] [address] Care Team Providers Care Fleet Operations Manager Name Role Phone Unavailable Primary Care Provider Unavailabl e Encounter Details Date Type Department Care Team (Late st Contact Info) Description 11/06/2019 Transcribed Document [facility] [place] Medicine [address] [place] [address] ProviderPrasanth MD [address] [place] [address] Social History Tobacco Use Types Packs/Day Years Used Date Smoking Tobacco: Never Assessed Sex and Gender Information Value Date Recorded Sex Assigned at Not on file Legal Sex Male 6:49 PM CDT Gender Identity Not on file Sexual Orientation Not on file documented as of this encounter Miscellaneous Notes * Cerner Conversion Note - Historical ProviderMD - 11/06/2019 5:00 PM RUBBER GOODS TESTER Chart Check - Review Order Profile Entered On: 11/06/2019 17:05 EST Performed On: 11/06/2019 17:00 EST by Lavonne Funez RN Chart Check Powerplans Initiated/Discontinued as Appropriate : Yes All Active Orders Reviewed : Yes Lavonne Funez RN - 11/06/2019 17:05 EST Electronically signed by Nikita [facility] Conversion Biology Teacher Cerner at 01/26/2023 8:54 PM CDT documented in this encounter Plan of Treatment Not on file documented as of this encounter Visit Diagnoses Not on filedocumented in this encounter
--- OUTSIDE RECORDS SUMMARY | 2025-07-04 12:18 | XMS_ITS | Encounter Summary ---
Author Organization [employer] ([place], [place], [place], [place]) Address [address] [place] [address] Care Team Providers Care Rim Turning Machine Operator Name Role Phone Unavailable Primary Care Provider Unavailabl e Encounter Details Date Type Department Care Team (Late st Contact Info) Description 11/05/2019 Transcribed Document [facility] [place] [address] [place] [address] ProviderPrasanth MD [facility] [address] Social History Tobacco Use Types Packs/Day Years Used Date Smoking Tobacco: Never Assessed Sex and Gender Information Value Date Recorded Sex Assigned at Not on file Legal Sex Male 6:49 PM CDT Gender Identity Not on file Sexual Orientation Not on file documented as of this encounter Miscellaneous Notes * Cerner Conversion Note - Prasanth ProviderMD - 11/05/2019 3:27 PM BLEACHER LARD Treatment Intervention, PT Entered On: 11/07/2019 15:45 [...] CJ WHEELER PTA - 11/07/2019 15:42 EST Animal Control Officer Goals Mobility/Bed Mobility LTG PT Grid Goal [...] EST Goal Status : Progressing, continue CJ WEHELER PTA - 11/07/2019 15:42 EST Treatment Note [...] 11/07/2019 15:[address] [facility] [facility] PT Charges LASER SPECIALIST PT Therap. Exercise 15 min-LASER SPECIALIST : 1 CJ WHEELER PTA - 11/07/2019 15:42 EST Electronically signed by Nikita [facility] Conversion Air Conditioning Mechanic Cerner at 01/26/2023 9:10 PM CDT documented in this encounter Plan of Treatment Not on file documented as of this encounter Visit Diagnoses Not on filedocumented in this encounter
--- OUTSIDE RECORDS SUMMARY | 2025-07-04 12:18 | XMS_ITS | Encounter Summary ---
Author Organization [email or web address] ([place], [place], [place], [place]) Address [address] [place] [address] Care Team Providers Care Verse Writer Name Role Phone Unavailable Primary Care Provider Sharif miles Encounter Details Date Type Department Care Team (Late st Contact Info) Description 11/05/2019 Transcribed Document [facility] [place] [address] [place] [address] ProviderPrasanth MD [facility] [place] [address] Social History Tobacco Use Types Packs/Day Years Used Date Smoking Tobacco: Never Assessed Sex and Gender Information Value Date Recorded Sex Assigned at Not on file Legal Sex Male 6:49 PM CDT Gender Identity Not on file Sexual Orientation Not on file documented as of this encounter Miscellaneous Notes * Cerner Conversion Note - Prasanth ProviderMD - 11/05/2019 9:53 AM TELECOM FIELD TECHNICIAN Evaluation, Occupational Therapy Entered On: 11/06/2019 14:25 [...] : 11/04/2019 21:19 Co-treated by, OT : assistant to the ceo (GL ACCOUNTANT) Assisted by, OT : senior technical writer/aide Personal Devices : Personal Devices Glasses Assistive Devices : Assistive Devices No Devices Recorded General Information Comment, OT : 84 yo female who was admitted to [facility] on 11/04 for cardiac arrhythmias/heart block, elevated [...] ROM : WF Left UE Strength : [facility] Upper Extremity Strength Impaired : No Right UE Strength : [facility] Left UE Strength : [facility] Upper Extremity Comment : BUE ROM and MMT [facility] BESS VINCENT, OTR/L - 11/06/2019 14:12 [...] BESS VINCENT OTR/L - 11/06/2019 14:12 EST Printer Slotter Helper Goals, OT Grooming LTG Grid Goal #1 [...] BESS VINCENT OTR/[place] - 11/06/2019 14:12 EST [place] OT Charges OT Eval Moderate Complexity : 1 BESS VINCENT OTR/L - 11/06/2019 14:12 EST Electronically signed by Filiberto Shelton Conversion Senior Water Resources Engineer Cerner at 01/26/2023 8:57 PM CDT documented in this encounter Plan of Treatment Not on file documented as of this encounter Visit Diagnoses Not on filedocumented in this encounter
--- OUTSIDE RECORDS SUMMARY | 2025-07-04 12:18 | XMS_ITS | Encounter Summary ---
Author Organization [employer] ([place], [place], [place], [place]) Address [address] [place] [address] Care Team Providers Care Bilingual Receptionist Name Role Phone Unavailable Primary Care Provider Unavailabl e Encounter Details Date Type Department Care Team (Late st Contact Info) Description 06/02/2021 Transcribed Document [facility] [place] [facility] [place] [address] ProviderPrasanth MD [address] [place] [address] Social History Tobacco Use Types [...] information. No nutrition dx at this time. optical coating technician to rescreen in 7-10 days. Nanette Moreno Diet Technician - 06/03/2021 11:22 EDT Electronically signed by Nikita [facility] Conversion Tire Center Supervisor Cerner at 01/26/2023 8:49 PM CDT documented in this encounter Plan of Treatment Not on file documented as of this encounter Visit Diagnoses Not on filedocumented in this encounter
--- OUTSIDE RECORDS SUMMARY | 2025-07-04 12:18 | XMS_ITS | Encounter Summary ---
Author Organization [employer] ([place], [place], [place], [place]) Address [address] [place] [address] Care Team Providers Care Belting Inspector Name Role Phone Unavailable Primary Care Provider Unavailabl e Encounter Details Date Type Department Care Team (Late st Contact Info) Description 11/06/2019 Transcribed Document [facility] [place] [address] [place] [address] ProviderPrasanth MD [address] [place] [address] Social History Tobacco Use Types Packs/Day Years Used Date Smoking Tobacco: Never Assessed Sex and Gender Information Value Date Recorded Sex Assigned at Not on file Legal Sex Male 6:49 PM CDT Gender Identity Not on file Sexual Orientation Not on file documented as of this encounter Miscellaneous Notes * Cerner Conversion Note - Prasanth ProviderMD - 11/06/2019 2:29 PM CHANGE COORDINATOR Readmission Questionnaire Entered On: 11/06/2019 14:31 EST Performed On: 11/06/2019 14:29 EST by BINH SIDDIQI RN-Service Planner Readmission Questionnaire Information Obtained From : Patient [...] hematoma. 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 BINH SIDDIQI, RN-Service Planner - 11/06/2019 14:29 EST Electronically signed by Nikita [facility] Conversion Safety Officer Cerner at 01/26/2023 8:55 PM CDT documented in this encounter Plan of Treatment Not on file documented as of this encounter Visit Diagnoses Not on filedocumented in this encounter
--- OUTSIDE RECORDS SUMMARY | 2025-07-04 12:18 | XMS_ITS | Encounter Summary ---
Author Organization [employer] ([place], [place], [place], [place]) Address [address] [place] [address] Care Team Providers Care Processing Clerk Name Role Phone Unavailable Primary Care Provider Unavailabl e Encounter Details Date Type Department Care Team (Late st Contact Info) Description 11/05/2019 Transcribed Document [facility] [place] [address] [place] [address] ProviderPrasanth MD [address] [place] [address] Social History Tobacco Use Types Packs/Day Years Used Date Smoking Tobacco: Never Assessed Sex and Gender Information Value Date Recorded Sex Assigned at Not on file Legal Sex Male 6:49 PM CDT Gender Identity Not on file Sexual Orientation Not on file documented as of this encounter Miscellaneous Notes * Cerner Conversion Note - Prasanth ProviderMD - 11/05/2019 8:53 AM AQUACULTURE WORKER Patient: SHIRA GARZA HORACIO Age: 84 Years [...] 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 The patient was transported to the emergency [...] 10/29/2019 obtain echocardiogram CAD s/p 5V CABG [facility] 09/2019 revealed patent grafts continue nitrate, [...] block Echo pe Electronically signed by Interface, [facility] Conversion Foundry Supervisor Cerner at 01/26/2023 9:07 PM CDT documented in this encounter Plan of Treatment Not on file documented as of this encounter Visit Diagnoses Not on filedocumented in this encounter
--- OUTSIDE RECORDS SUMMARY | 2025-07-04 12:18 | XMS_ITS | Encounter Summary ---
Author Organization [employer] ([place], [place], [place], [place]) Address [address] [place] [address] Care Team Providers Care Marketing Reps Sports And Entertainment Name Role Phone Unavailable Primary Care Provider Unavailabl e Encounter Details Date Type Department Care Team (Late st Contact Info) Description 11/06/2019 Transcribed Document [facility] [place] Family Medicine [address] [place] [address] ProviderPrasanth MD [address] [place] [address] Social History Tobacco Use Types Packs/Day Years Used Date Smoking Tobacco: Never Assessed Sex and Gender Information Value Date Recorded Sex Assigned at Not on file Legal Sex Male 6:49 PM CDT Gender Identity Not on file Sexual Orientation Not on file documented as of this encounter Miscellaneous Notes * Cerner Conversion Note - Prasanth ProviderMD - 11/06/2019 2:25 PM ASSEMBLING MOTOR BUILDER Initial Discharge Planning Entered On: 11/06/2019 14:29 EST Performed On: 11/06/2019 14:25 EST by BINH SIDDIQI, RN-Franchise Development Manager Initial Assessment I Previously Documented Living [...] Listed? : Yes Medical Durable Power of Aerospace Stress Engineer Name : Legal Guardian : No Is Guardianship Needed : No BINH SIDDIQI, RN-Franchise Development Manager - 11/06/2019 14:25 EST Initial Assessment II Sensory and Motor Deficits : None, Weakness Current Home Treatments and Equipment : None Does the Patient have a Floor to SNF Benefit? : Yes BINH SIDDIQI, RN-Franchise Development Manager - 11/06/2019 14:25 EST Discharge Needs I Anticipated Discharge Date : 11/08/2019 EST Anticipated Discharge To, CM : Home with home health Current Home Treatment/Equipment : Current Home Treatment/Equipment Current Home Treatments and Equipment: None (11/05/19 17:51:00) Post Acute/Home Treatments : None Documentation Status Complete : Yes BINH SIDDIQI, RN-Franchise Development Manager - 11/06/2019 14:25 EST Discharge Needs II Professional Skilled Services : Professional Skilled Services No qualifying data available. Needs Assistance with Transportation : No Discharge Options Discussed with Patient : Home Health BINH SIDDIQI, RN-Franchise Development Manager - 11/06/2019 14:25 EST Narrative Note Narrative [...] and assist w/needs as approp. ROSANA CALLEJAS, RN-Franchise Development Manager - 11/05/19 17:54:15 BINH SIDDIQI, RN-Franchise Development Manager - 11/06/2019 14:25 EST Electronically signed by Nikita [facility] Conversion Ecological Economist Cerner at 01/26/2023 9:08 PM CDT documented in this encounter Plan of Treatment Not on file documented as of this encounter Visit Diagnoses Not on filedocumented in this encounter
--- OUTSIDE RECORDS SUMMARY | 2025-07-04 12:18 | XMS_ITS | Encounter Summary ---
Author Organization [employer] ([place], [place], [place], [place]) Address [address] [place] [address] Care Team Providers Care Vehicle Care Specialist Name Role Phone Unavailable Primary Care Provider Unavailabl e Encounter Details Date Type Department Care Team (Late st Contact Info) Description 11/05/2019 Transcribed Document [facility] [place] [address] [place] [address] ProviderPrasanth MD [address] [place] [address] Social History Tobacco Use Types Packs/Day Years Used Date Smoking Tobacco: Never Assessed Sex and Gender Information Value Date Recorded Sex Assigned at Not on file Legal Sex Male 6:49 PM CDT Gender Identity Not on file Sexual Orientation Not on file documented as of this encounter Miscellaneous Notes * Cerner Conversion Note - Historical ProviderMD - 11/05/2019 2:00 AM FILM SPLICER Medical Office Supervisor Details Entered On: 11/05/2019 0:16 EST Performed [...] DESMOND CRUZ RN - 11/05/2019 0:16 EST Electronically signed by Carla Shelton Conversion Editor Continuity And Script Richard at 01/26/2023 8:59 PM CDT documented in this encounter Plan of Treatment Not on file documented as of this encounter Visit Diagnoses Not on filedocumented in this encounter
--- OUTSIDE RECORDS SUMMARY | 2025-07-04 12:18 | XMS_ITS | Encounter Summary ---
Author Organization [employer] ([place], [place], [place], [place]) Address [address] [place] [address] Care Team Providers Care Airline Captain Name Role Phone Unavailable Primary Care Provider Unavailabl e Encounter Details Date Type Department Care Team (Late st Contact Info) Description 11/04/2019 Transcribed Document [facility] Neurology - [address] [facility] [address] [place] [address] Titus Rasheed Jr., MD [address] [place] [address] Social History Tobacco Use Types [...] a cardiac event. He takes Plavix. Dr. Ambrosoi, the hospitalist admitting him, states that he [...] acute subdural hematoma in the right posterior church area, just above the petrous bone. It [...] family was present when I saw him. /[id number] Titus Rasheed Jr, MD RDO/AQ / RDO / MODL /[id number] documented in this encounter Plan of Treatment Not on file documented as of this encounter Visit Diagnoses Not on filedocumented in this encounter
--- OUTSIDE RECORDS SUMMARY | 2025-07-04 12:18 | XMS_ITS | Encounter Summary ---
Author Organization [employer] ([place], [place], [place], [place]) Address [address] [place] [address] Care Team Providers Care Director College Name Role Phone Unavailable Primary Care Provider Unavailabl e Encounter Details Date Type Department Care Team (Late st Contact Info) Description 11/05/2019 Transcribed Document [facility] Neurology - [address] [facility] [address] [place] [address] [place] [address] [place] [address]. [address] [place] [address] Social History Tobacco Use Types [...] Lymph # 1.32 x10(3)/uL 11/04/2019 20:08 EST [place] % 9.6 % (High) 11/04/2019 20:08 EST [place] # 0.61 K/uL 11/04/2019 20:08 EST Eos [...]
--- OUTSIDE RECORDS SUMMARY | 2025-07-04 12:18 | XMS_ITS | Encounter Summary ---
Author Organization [employer] ([place], [place], [place], [place]) Address [address] [place] [address] Care Team Providers Care Package Sorter Name Role Phone Unavailable Primary Care Provider Unavailabl e Encounter Details Date Type Department Care Team (Late st Contact Info) Description 11/06/2019 Transcribed Document [facility] [place] Medicine [address] [place] [address] ProviderPrasanth MD [address] [place] [address] Social History Tobacco Use Types Packs/Day Years Used Date Smoking Tobacco: Never Assessed Sex and Gender Information Value Date Recorded Sex Assigned at Not on file Legal Sex Male 6:49 PM CDT Gender Identity Not on file Sexual Orientation Not on file documented as of this encounter Miscellaneous Notes * Cerner Conversion Note - Prasanth ProviderMD - 11/06/2019 8:58 AM HANGERSMITH Patient: SHIRA GARZA HORACIO Age: 84 years Sex: Male : 1935 Associated Diagnoses: None Author: CELESTINA RUIZ APRN [facility] CARDIOLOGY PROGRESS NOTE: DIAGNOSIS: 1. [...] Routine Weight, Kilograms: 92 kg (11/06/19 02:20:00) [place] Body Weight: 70 kg (11/04/19 21:29:00) Intake [...] 10/29/2019 CAD s/p 5V CABG [facility] 09/2019 revealed patent grafts continue nitrate, [...] currently asymptomatic For BIV PPM in am Electronically signed by Carla Shelton Conversion Mechanical Reliability Engineer Devynner at 01/26/2023 9:04 PM CDT documented in this encounter Plan of Treatment Not on file documented as of this encounter Visit Diagnoses Not on filedocumented in this encounter
--- OUTSIDE RECORDS SUMMARY | 2025-07-04 12:18 | XMS_ITS | Encounter Summary ---
Author Organization [employer] ([place], [place], [place], [place]) Address [address] [place] [address] Care Team Providers Care Hospital Account Manager Name Role Phone Unavailable Primary Care Provider Unavailabl e Encounter Details Date Type Department Care Team (Late st Contact Info) Description 11/05/2019 Transcribed Document [facility] [place] [address] [place] [address] ProviderPrasanth MD [address] [place], [...] - Historical ProviderMD - 11/05/2019 3:20 AM CARBON PAPER MACHINE OPERATOR Height and Weight, Routine Entered On: 11/05/2019 3:21 EST Performed On: 11/05/2019 3:20 EST by Sal Hurt, Mortgage Loan CounselorHealth Unit Coord Height and Weight, Routine Routine Weight Source : Bed scale Routine Weight Entry Format : Metric Routine Weight, Kilograms : 93.1 kg(Converted to: 205 lb 4 oz) Routine Weight Calculation : 93.1 kg Height Source : Stated Height Entry Format : [place] Height, Feet : 5 ft Height, Inches : 9 Inch Clinical Height : 175.26 cm Body Surface Area (BSA), Routine : 2.09 m2 Body Mass Index (BMI), Routine : 30.31 kg/m2 Sal Hurt, Mortgage Loan Counselor-Health Unit Coord - 11/05/2019 3:20 EST Electronically signed by Nikita [facility] Conversion Lead Vulcanizing Operator Cerner at 01/26/2023 8:58 PM CDT documented in this encounter Plan of Treatment Not on file documented as of this encounter Visit Diagnoses Not on filedocumented in this encounter
--- OUTSIDE RECORDS SUMMARY | 2025-07-04 12:18 | XMS_ITS | Encounter Summary ---
Author Organization [employer] ([place], [place], [place], [place]) Address [address] [place] [address] Care Team Providers Care Servomechanism Assembler Name Role Phone Unavailable Primary Care Provider Unavailabl e Encounter Details Date Type Department Care Team (Late st Contact Info) Description 10/29/2019 Transcribed Document [facility] [place] [address] [place] [address] ProviderPrasanth MD [address] [place] [address] Social History Tobacco Use Types Packs/Day Years Used Date Smoking Tobacco: Never Assessed Sex and Gender Information Value Date Recorded Sex Assigned at Not on file Legal Sex Male 6:49 PM CDT Gender Identity Not on file Sexual Orientation Not on file documented as of this encounter Miscellaneous Notes * Cerner Conversion Note - Prasanth ProviderMD - 10/29/2019 8:11 AM RADIO PRESENTER [facility] Main OR IntraOp Summary Primary Physician: MARK HAIRSTON MD-CAT Finalized Date/Time: 10/31/19 12:09:24 Pt. Name: SHIRA GARZA HORACIO /Sex: 1935 Male Med Rec #: [id number] Physician: MARK HAIRSTON MD-CAT Financial #: [id number] Pt. Type: I Room/Bed: [facility]/1 Admit/Disch: 10/29/19 07:03:00 - 10/30/19 15:14:00 Institution: [facility] IntraOp Case Attendance Entry 1 [...] MD-ANS Angiography Tech Role Performed Surgeon/Proceduralist, Anesthesiologist Accounts Adjustable Clerk Third Time In 10/29/19 07:16:00 10/29/19 07:16:00 [...] Cardiovascular RT Pref Card Builder Role Performed Accounts Adjustable Clerk Scrub, Third Truck Manager, First Time In 10/29/19 07:16:00 10/29/19 07:16:00 [...] 11 Case Attendee JOAQUÍN ZEE, OTHER, ATTENDEE Curing Bin Operator Role Performed Curing Bin Operator Vendor Time In 10/29/19 07:16:00 10/29/19 07:16:00 Time Out 10/29/19 09:42:00 10/29/19 09:42:00 Procedure Aortic Valve Aortic Valve Replacement Transfemoral Replacement Transfemoral Other Attendee HOLAMARCELLO MANCIA Superficial Wound Closed By: Last Modified By: Solange Sutton KYOne Grimes, Jennifer, KYOne Pref Card Builder Pref Card Builder 10/29/19 09:43:00 10/29/19 09:43:00 [facility] IntraOp Case Attendance Audit 10/29/19 09:43:00 Operations Management Trainee: MAY Modifier: MAY 1 <+> Time Out [...] Procedure Aortic Valve Replacement Transfemoral 10/29/19 08:06:54 Operations Management Trainee: MAY Modifier: MAY <+> 1 Procedure 2 [...] 11 <*> Procedure Aortic Valve Replacement Transfemoral [facility] IntraOp Case Times Entry 1 Patient In Room Time 10/29/19 07:16:00 Out Room Time 10/29/19 09:42:00 Anesthesia Start Time 10/29/19 07:16:00 Stop Time 10/29/19 09:42:00 Surgery / Procedure Times Start Time 10/29/19 08:11:00 Stop Time 10/29/19 09:17:00 Last Modified By: Solange Sutton KYOne Pref Card Builder 10/29/19 09:42:57 [facility] IntraOp Case Times Audit 10/29/19 09:42:57 Operations Management Trainee: GRIMESJE Modifier: GRIMESJE <+> 1 Out Room Time <+> 1 Stop Time 10/29/19 09:23:10 Operations Management Trainee: GRIMESJE Modifier: GRIMESJE <+> 1 Stop Time 10/29/19 08:11:22 Operations Management Trainee: GRIMESJE Modifier: GRIMESJE <+> 1 Start Time [facility] IntraOp Communication Entry 1 Entry [...] Sutton [facility]One Pref Card Buildvipul 10/29/19 08:59:19 [facility] IntraOp Communication Audit 10/29/19 08:59:19 Operations Management Trainee: MAY Modifier: MAY <+> 3 Date and Time <+> 4 Date and Time [facility] IntraOp Departure from OR Entry 1 Integumentary Assessment Integumentary WDL Assessment WDL Transfer/Handoff Transfer to PACU Phase I Handoff Method Bedside/Face to face Post-op Transport Bed (including Via specialty) Patient Transport DOM DE LA TORRE, Accompanied by DILLAN, JOAQUÍN ZEE, Curing Bin Operator, Solange Sutton [facility]One Pref Card Aida Transfer/Handoff ICU BED Comments Last Modified By: Solange Sutton [facility]One Pref Card Buildvipul 10/29/19 08:05:30 [facility] IntraOp Dressing and Packing Entry 1 Type Dressing Location OPERATIVE SITE Wound Dressing Item Skin Closure Glue, Occlusive dressing Last Modified By: Solange Sutton [facility]One Pref Card Buildvipul 10/29/19 08:05:33 [facility] IntraOp Fire Risk Assessment Entry [...] Sutton [facility]One Pref Card Buildvipul 10/29/19 08:05:40 [facility] IntraOp General Case Foreign Languages Department Chair 1 Case Information OR OR 20 [facility] Case Level 2 Room Verified Yes Wound Class I - Clean Specialty SN Cardio Thoracic Anesthesia Type MAC ASA Class 4 Diagnosis Preop Diagnosis AORTIC VALVE DISEASE Postop Same As Preop Yes Postop Diagnosis AORTIC VALVE DISEASE Last Modified By: Solange Sutton [facility]One Pref Card Builder 10/29/19 08:05:54 [facility] IntraOp Implant Log Entry 1 Entry 2 Entry 3 Type Implant (Synthetic) Implant (Synthetic) Tissue Implant (Biologic) Implant Log Implant Type Other Other Tissue Implant Type Heart valve Implant CLOSURE SYS PERCLOSE DEVICE MYNX SENIOR LOSS CONTROL SPECIALIST 6F/ 7F KT NAVID 3 W/COMM DEL Identification PROGL [id number] [id number] Description Implant Quantity 3 1 1 Implant Site RIGHT GROIN LEFT GROIN AORTIC VALVE Implant Identification Model Number Implant [id number] Identification Serial Number Implant [id number] Identification Lot Number Implant Dixon Lab:Vasc Dev Access Closure Mancia Lifesci Identification Can Technician Name: Implant [id number] Identification Catalog Number Implant Size Implant Has an Yes Yes Yes Expiration Date Implant Expiration 07/09/21 09/08/21 01/08/21 Date Wasted Radioactive Material Time Implanted Tissue Implant Continue for Tissue Implant Documentation Tissue Identification Number Graft Prep Per Yes Can Technician Instructions: Tissue Preparation N/A Method: Reconstitution Solution: Reconstitution Solution Lot Number Reconstitution Solution Expiration Date: Thawing Solution Thawing Solution Lot Number Thawing Solution Expiration Date Preparation NACL AND HEPARIN/SALINE Materials, Other Preparation [id number] Materials, Other Lot Number Preparation 05/10/20 Materials, Other Expiration Date Tissue OTHER, ATTENDEE Prepared/Processed By Can Technician Yes Paperwork Completed Implant Type Comment Last Modified By: Solange Sutton KYOne Grimes, Jennifer, KYOne Grimes, Jennifer, KYOne Pref Card Builder Pref Card Builder Pref Card Builder 10/29/19 08:21:05 10/29/19 08:21:05 10/29/19 13:19:53 [facility] IntraOp Implant Log Audit 10/29/19 13:19:53 Operations Management Trainee: MAY Modifier: MAY 3 <*> Implant Identification Description KT NAVID 3 W/COMM DEL SYS [id number] <*> Tissue Implant Type Tissue 10/29/19 08:34:38 Operations Management Trainee: MAY Modifier: MAY 3 <*> Implant Identification Description KT NAVID 3 W/COMM DEL SYS [id number] <+> Preparation Materials, Other Lot Number 3 <+> Preparation Materials, Other Expiration Date 10/29/19 08:30:15 Operations Management Trainee: MAY Modifier: MAY <+> 3 Implant Identification Description <+> 3 Implant Identification Serial Number <+> 3 Implant Identification Can Technician Name: <+> 3 Implant Expiration Date <+> 3 Implant Site <+> 3 Implant Quantity <+> 3 Implant Identification Catalog Number <+> 3 Tissue Implant Type <+> 3 Graft Prep Per Can Technician Instructions: <+> 3 Tissue Preparation Method: <+> 3 Preparation Materials, Other <+> 3 Tissue Prepared/Processed By <+> 3 Can Technician Paperwork Completed <+> 3 Implant Has an Expiration Date <+> 3 Type [facility] IntraOp Intraoperative Assessment Entry 1 [...] Sutton KYOne Pref Card Builder 10/29/19 08:06:01 [facility] IntraOp Intraoperative Equipment Entry 1 Equipment Intraop Monitoring Blood Pressure Arm, right upper Location Pulse Oximeter Hand, left Probe Site Antiembolic Devices Scopes Photo/Video Documentation Last Modified By: Solange Sutton KYOne Pref Card Builder 10/29/19 08:06:05 [facility] IntraOp Medication Admin Entry 1 Entry 2 Entry 3 Medication/Irrigant lidocaine 1% 30ml vial KENNY VISIPAQUE 320MG 150 KENNY NACL 0.9PCT [facility] [id number] 200ML --[id number] 1000U .5L --[id number] Combo Med List Time Administered Route of [...] Builder 10/29/19 08:06:19 10/29/19 08:06:19 10/29/19 08:06:19 [facility] IntraOp Patient Positioning Entry 1 [...] Sutton KYOne Pref Card Builder 10/29/19 08:06:32 [facility] IntraOp Sign In Entry 1 [...] Sutton [facility]One Pref Card Builder 10/29/19 08:06:34 [facility] IntraOp Sign Out Entry 1 [...] Sutton KYOne Pref Card Builder 10/29/19 09:43:07 [facility] IntraOp Sign Out Audit 10/29/19 09:43:07 Operations Management Trainee: MAY Modifier: MAY <+> 1 RN Sign Out Signature Date/Time [facility] IntraOp Skin Prep Entry 1 Procedure Aortic Valve Replacement Transfemoral Prescribed Yes Pre-Surgical Prep Completed Prep Area CHIN TO KNEES Intraop Prep Integumentary WDL Assessment WDL Prep Agents Chloraprep Prep by Solange Sutton [facility]One Pref Card Builder Hair Removal Last Modified By: Solange Sutton [facility]One Pref Card Builder 10/29/19 08:06:43 [facility] IntraOp Surgical Procedures Entry 1 Procedure Aortic Valve Replacement Transfemoral Additional TRANSFEMORAL AORTIC Procedure VALVE REPLACEMENT, PUMP Description STAND BY Primary Procedure Yes Primary Surgeon MARK HAIRSTON MD-CAT Start 10/29/19 08:11:00 Stop 10/29/19 09:17:00 Anesthesia Type General Specialty SN Cardio Thoracic Wound Class I - Clean Last Modified By: Solange Sutton [facility]One Pref Card Builder 10/29/19 09:43:10 [facility] IntraOp Surgical Procedures Audit 10/29/19 09:43:10 Operations Management Trainee: MAY Modifier: MAY <+> 1 Stop 10/29/19 09:02:34 Operations Management Trainee: MAY Modifier: MAY 1 <*> Procedure Aortic Valve Replacement Transfemoral 1 <+> Start 1 <*> Additional Procedure Description (AORTIC VALVULOPLASTY, VITOR, POSSIBLE TRANSCATHETER AORTIC VALVE REPLACEMENT, POSSIBLE OPEN AORTIC VALVE REPLACEMENT) [facility] IntraOp Temp Regulation Devices Entry 1 Temp Regulation Temperature Warm blankets Regulation Device Temperature Full body Regulation Site Temperature Solange Sutton KYOne Regulation Device Pref Card Builder Applied by Last Modified By: Solange Sutton KYOne Pref Card Builder 10/29/19 08:06:59 [facility] IntraOP Time Out Entry 1 [...] Sutton KYOne Pref Card Builder 10/29/19 08:11:18 [facility] IntraOP Time Out Audit 10/29/19 08:11:18 Operations Management Trainee: MAY Modifier: MAY 1 <+> Beta Bety Administered 1 <+> Time Out Pause Time 1 <*> Procedure to be Performed Aortic Valve Replacement Transfemoral 1 <+> Time Out Comment [facility] IntraOp X-Ray and Images Entry 1 X-Ray/Imaging Type Fluoroscopy Fluoroscopy Type Fixed Site CHEST Men'S Swim Coach Name Sherdave, Brenna, Angiography Tech Protective Devices [...] TIFFANIE Correct Billing Electronically signed by Nikita [facility] Conversion Wire Worker Cerner at 01/26/2023 9:05 PM CDT documented in this encounter Plan of Treatment Not on file documented as of this encounter Visit Diagnoses Not on filedocumented in this encounter
--- OUTSIDE RECORDS SUMMARY | 2025-07-04 12:18 | XMS_ITS | Encounter Summary ---
Author Organization [employer] ([place], [place], [place], [place]) Address [address] [place] [address] Care Team Providers Care Screener Perfumer Name Role Phone Unavailable Primary Care Provider Unavailabl e Encounter Details Date Type Department Care Team (Late st Contact Info) Description 11/06/2019 Transcribed Document [facility] [place] Family Medicine [address] [place] [address] ProviderPrasanth MD [address] [place] [address] Social History Tobacco Use Types Packs/Day Years Used Date Smoking Tobacco: Never Assessed Sex and Gender Information Value Date Recorded Sex Assigned at Not on file Legal Sex Male 6:49 PM CDT Gender Identity Not on file Sexual Orientation Not on file documented as of this encounter Miscellaneous Notes * Cerner Conversion Note - Historical ProviderMD - 11/06/2019 12:56 PM NATUROPATHIC ONCOLOGY PROVIDER Education-Surgery Entered On: 11/06/2019 16:00 EST Performed [...] Lavonne Funez RN - 11/06/2019 16:00 EST Electronically signed by Carla Shelton Conversion Restaurant Operations Manager Cerner at 01/26/2023 8:56 PM CDT documented in this encounter Plan of Treatment Not on file documented as of this encounter Visit Diagnoses Not on filedocumented in this encounter
--- OUTSIDE RECORDS SUMMARY | 2025-07-04 12:19 | XMS_ITS | Encounter Summary ---
Author Organization [employer] ([place], [place], [place], [place]) Address [address] [place] [address] Care Team Providers Care Paint Grinder Name Role Phone Unavailable Primary Care Provider Unavailabl e Encounter Details Date Type Department Care Team (Late st Contact Info) Description 09/11/2019 Transcribed Document [facility] [place] [address] [place] [address] ProviderPrasanth MD [address] [place] [address] Social History Tobacco Use Types Packs/Day Years Used Date Smoking Tobacco: Never Assessed Sex and Gender Information Value Date Recorded Sex Assigned at Not on file Legal Sex Male 6:49 PM CDT Gender Identity Not on file Sexual Orientation Not on file documented as of this encounter Miscellaneous Notes * Cerner Conversion Note - Prasanth Sanchez MD - 09/11/2019 11:52 AM WING COMMANDER [facility] [place] [address] MIYA GARZAALD HORACIO :1935 Visit [...] appoint/instructions Where: [address] [place] [phone] Medications What How Much When Instructions Next [...] Document Reviewed: 10/29/2011 ExitCare?? Patient Information ??2014 [employer]. Moderate Conscious Sedation, Adult, Care After These [...] you are awake and alert. ??? Take dxgy-wqi-gtaazod and prescription medicines only as told by [...] 07/17/2014 Document Revised: 02/28/2017 Document Reviewed: 01/15/2017 [employer] Interactive Patient Education ?? 2019 [employer] Emergency Awareness and Preventative Care STROKE [...] Assistance with quitting is available by contacting [phone]. This is a free resource providing counseling, [...] was given the opportunity to ask questions. Patient/Boat Dock Operator Name: Patient/Boat Dock Operator Signature: Relationship to Patient: Clinician/Hospital Boat Dock Operator Signature: Date: Electronically signed by [facility], [facility] Conversion Applications Sales Consultant Richard at 01/26/2023 9:08 PM CDT documented in this encounter Plan of Treatment Not on file documented as of this encounter Visit Diagnoses Not on filedocumented in this encounter
--- OUTSIDE RECORDS SUMMARY | 2025-07-04 12:19 | XMS_ITS | Encounter Summary ---
Author Organization [employer] ([place], [place], [place], [place]) Address [address] [place] [address] Care Team Providers Care Residential Property Manager Name Role Phone Unavailable Primary Care Provider Unavailabl e Encounter Details Date Type Department Care Team (Late st Contact Info) Description 10/30/2019 Transcribed Document [facility] [place] Family Medicine [address] [place] [address] ProviderPrasanth MD [address] [place] [address] Social History Tobacco Use Types Packs/Day Years Used Date Smoking Tobacco: Never Assessed Sex and Gender Information Value Date Recorded Sex Assigned at Not on file Legal Sex Male 6:49 PM CDT Gender Identity Not on file Sexual Orientation Not on file documented as of this encounter Miscellaneous Notes * Cerner Conversion Note - Historical ProviderMD - 10/30/2019 2:00 AM FRONT OFFICE ADMINISTRATOR Airline Counter Agent Details Entered On: 10/30/2019 4:47 EST Performed [...]
--- OUTSIDE RECORDS SUMMARY | 2025-07-04 12:19 | XMS_ITS | Encounter Summary ---
Author Organization [employer] ([place], [place], [place], [place]) Address [address] [place] [address] Care Team Providers Care Fermenting Cellar Dropper Name Role Phone Unavailable Primary Care Provider Unavailabl e Encounter Details Date Type Department Care Team (Late st Contact Info) Description 11/14/2018 Transcribed Document [facility] [place] [facility] [place] [address] ProviderPrasanth MD [facility] [place] [address] Social History Tobacco Use Types Packs/Day Years Used Date Smoking Tobacco: Never Assessed Sex and Gender Information Value Date Recorded Sex Assigned at Not on file Legal Sex Male 6:49 PM CDT Gender Identity Not on file Sexual Orientation Not on file documented as of this encounter Miscellaneous Notes * Cerner Conversion Note - Prasanth Sanchez MD - 11/14/2018 8:31 AM HIGH MAN DATE OF STUDY: 11/14/2018 ELECTROPHYSIOLOGY RADIOFREQUENCY ABLATION REPORT PREOPERATIVE DIAGNOSIS: Symptomatic atrial flutter. PROCEDURE PERFORMED: Electrophysiology evaluation and radiofrequency ablation. DESCRIPTION OF PROCEDURE: The patient was brought to the EP laboratory in atrial flutter. After the aseptic draping of the femoral regions, the right femoral triangle was infiltrated with 1% lidocaine locally. A 6, 7, and 8-Polish Daig septal sheaths were introduced into the right femoral vein. A 7-Polish Duo-Decapolar catheter was advanced along the lateral right atrial wall and into the coronary sinus. A 6-Polish Quadripolar catheter was placed at the atrial septum. This catheter was later used for pacing. Electrogram analysis demonstrated a counter-clockwise atrial flutter at a cycle length of 200 msec. Next, using the Carto three-dimensional mapping system in conjunction with a BiosMathZee Dubois F Curve irrigated catheter, radiofrequency energy at 40 zheng was delivered across the tricuspid valve isthmus with dissolution of local atrial electrograms and ultimate orthodox of normal sinus rhythm. Bidirectional block across [...] 2. Successful tricuspid valve isthmus ablation with orthodox of normal sinus rhythm and development of bidirectional isthmus block. RECOMMENDATIONS: Routine followup. Dionicio Soliman M.D. Dict: 11/14/2018 08:31:48 Trans: 11/14/2018 10:53:06 CC1: Dionicio Soliman M.D. documented in this encounter Plan of Treatment Not on file documented as of this encounter Visit Diagnoses Not on filedocumented in this encounter
--- OUTSIDE RECORDS SUMMARY | 2025-07-04 12:19 | XMS_ITS | Encounter Summary ---
Author Organization [employer] ([place], [place], [place], [place]) Address [address] [place] [address] Care Team Providers Care Washing Machine Repairer Name Role Phone Unavailable Primary Care Provider Unavailabl e Encounter Details Date Type Department Care Team (Late st Contact Info) Description 11/04/2019 Transcribed Document [facility] [place] Family Medicine [address] [place] [address] ProviderPrasanth MD [facility] [place] [address] Social History Tobacco Use Types Packs/Day Years Used Date Smoking Tobacco: Never Assessed Sex and Gender Information Value Date Recorded Sex Assigned at Not on file Legal Sex Male 6:49 PM CDT Gender Identity Not on file Sexual Orientation Not on file documented as of this encounter Miscellaneous Notes * Cerner Conversion Note - Prasanth ProviderMD - 11/04/2019 7:33 PM SALES ACCOUNT DIRECTOR ED Assessment Entered On: 11/04/2019 21:44 EST [...] Communication Barrier : None Primary Language : Kyrgyz Any Spiritual/Cultural Needs or Requests : No [...]
--- OUTSIDE RECORDS SUMMARY | 2025-07-04 12:19 | XMS_ITS | Encounter Summary ---
Author Organization [employer] ([place], [place], [place], [place]) Address [address] [place] [address] Care Team Providers Care Ese Teacher Name Role Phone Unavailable Primary Care Provider Unavailabl e Encounter Details Date Type Department Care Team (Late st Contact Info) Description 11/04/2019 Transcribed Document [facility] [place] Family Medicine [address] [place] [address] ProviderPrasanth MD [address] [place] [address] Social History Tobacco Use Types Packs/Day Years Used Date Smoking Tobacco: Never Assessed Sex and Gender Information Value Date Recorded Sex Assigned at Not on file Legal Sex Male 6:49 PM CDT Gender Identity Not on file Sexual Orientation Not on file documented as of this encounter Miscellaneous Notes * Cerner Conversion Note - Prasanth ProviderMD - 11/04/2019 11:45 PM HEEL GUMMER Education-Critical Care Entered On: 11/04/2019 23:45 EST [...]
--- OUTSIDE RECORDS SUMMARY | 2025-07-04 12:19 | XMS_ITS | Encounter Summary ---
Author Organization [employer] ([place], [place], [place], [place]) Address [address] [place] [address] Care Team Providers Care Research Biostatistician Name Role Phone Unavailable Primary Care Provider Unavailabl e Encounter Details Date Type Department Care Team (Late st Contact Info) Description 11/04/2019 Transcribed Document [facility] [place] Family Medicine [facility] [place] [address] ProviderPrasanth MD [facility] [place] [address] Social History Tobacco Use Types Packs/Day Years Used Date Smoking Tobacco: Never Assessed Sex and Gender Information Value Date Recorded Sex Assigned at Not on file Legal Sex Male 6:49 PM CDT Gender Identity Not on file Sexual Orientation Not on file documented as of this encounter Miscellaneous Notes * Cerner Conversion Note - Prasanth ProviderMD - 11/04/2019 7:33 PM DEALER ACCOUNT MANAGER ED Triage Entered On: 11/04/2019 19:42 EST [...] : 2 - Emergent Tracking Group : [facility] ED RADHA COVINGTON Rn - 11/04/2019 [...] 19:42:51 EST) Problems(Active) Aortic stenosis (SNOMED CT :516883721 ) Name of Problem: Aortic stenosis ; Recorder: RADHA TERRAZAS RN; Confirmation: Confirmed ; Classification: Patient Stated ; Code: 910370148 ; Contributor System: Magnetic ; Last Updated: 11/14/2018 7:27 EST ; Life Cycle Date: 11/14/2018 ; Life Cycle Status: Active ; Vocabulary: SNOMED CT At risk for sleep apnea (IMO :59663601 ) Name of Problem: At risk for sleep apnea ; Recorder: SYSTEM, SYSTEM; Confirmation: Confirmed ; Classification: Medical ; Code: 40123431 ; Last Updated: 11/14/2018 7:19 EST ; Life Cycle Date: 11/14/2018 ; Life Cycle Status: Active ; Vocabulary: IMO Atrial flutter (SNOMED CT :0515779 ) Name of Problem: Atrial flutter ; Recorder: RADHA TERRAZAS RN; Confirmation: Confirmed ; Classification: Patient Stated ; Code: 8801436 ; Contributor System: PublishThisChart ; Last Updated: 11/14/2018 7:26 EST ; Life Cycle Date: 11/14/2018 ; Life Cycle Status: Active ; Vocabulary: SNOMED CT Benign neoplastic disease (SNOMED CT :08163951 ) Name of Problem: Benign neoplastic disease ; Recorder: AV KING RN; Confirmation: Confirmed ; Classification: Patient Stated ; Code: 54012011 ; Contributor System: PowerChart ; Last Updated: 09/11/2019 7:15 EST ; Life Cycle Date: 09/11/2019 ; Life Cycle Status: Active ; Vocabulary: SNOMED CT CAD (coronary artery disease) (SNOMED CT :39726737 ) Name of Problem: CAD (coronary artery disease) ; Recorder: RADHA TERRAZAS RN; Confirmation: Confirmed ; Classification: Patient Stated ; Code: 00946282 ; Contributor System: PowerChart ; Last Updated: 11/14/2018 7:27 EST ; Life Cycle Date: 11/14/2018 ; Life Cycle Status: Active ; Vocabulary: SNOMED CT Hyperlipidemia (SNOMED CT :38324619 ) Name of Problem: Hyperlipidemia ; Recorder: AV KING RN; Confirmation: Confirmed ; Classification: Patient Stated ; Code: 62176061 ; Contributor System: PowerChart ; Last Updated: 09/11/2019 6:25 EST ; Life Cycle Date: 09/11/2019 ; Life Cycle Status: Active ; Vocabulary: SNOMED CT Hypertension (SNOMED CT :24595452 ) Name of Problem: Hypertension ; Recorder: HILDA ANTHONY RN; Confirmation: Confirmed ; Classification: Medical ; Code: 99793701 ; Contributor System: PowerChart ; Last Updated: 10/26/2019 9:33 EST ; Life Cycle Date: 10/26/2019 ; Life Cycle Status: Active ; Vocabulary: SNOMED CT Renal calculus (SNOMED CT :970189483 ) Name of Problem: Renal calculus ; Recorder: RADHA TERRAZAS RN; Confirmation: Confirmed ; Classification: Patient Stated ; Code: 828613214 ; Contributor System: PowerChart ; Last Updated: 11/14/2018 7:30 EST ; Life Cycle Date: 11/14/2018 ; Life Cycle Status: Active ; Vocabulary: SNOMED CT Right bundle branch block (SNOMED CT :82436340 ) Name of Problem: Right bundle branch block ; Recorder: AV KING RN; Confirmation: Confirmed ; Classification: Patient Stated ; Code: 11137209 ; Contributor System: PublishThisChart ; Last Updated: 09/11/2019 7:12 EST ; Life Cycle Date: 09/11/2019 ; Life Cycle Status: Active ; Vocabulary: SNOMED CT Shortness of breath (SNOMED CT :250894762 ) Name of Problem: Shortness of breath ; Recorder: HILDA ANTHONY RN; Confirmation: Confirmed ; Classification: Medical ; Code: 081764812 ; Contributor System: PowerChart ; Last Updated: 10/26/2019 9:34 EST ; Life Cycle Date: 10/26/2019 ; Life Cycle Status: Active ; Vocabulary: SNOMED CT Wears glasses (SNOMED CT :018318738 ) Name of Problem: Wears glasses ; Recorder: HILDA ANTHONY RN; Confirmation: Confirmed ; Classification: Medical ; Code: 838816992 ; Contributor System: Magnetic ; Last Updated: 10/26/2019 9:32 EST ; Life Cycle Date: 10/26/2019 ; Life Cycle Status: Active ; Vocabulary: SNOMED CT Diagnoses(Active) Dizziness Date: 11/04/2019 ; Diagnosis Type: Reason For Visit ; Confirmation: Complaint of ; Clinical Dx: Dizziness ; Classification: Medical ; Clinical Service: Emergency medicine ; Code: PNED ; Probability: 0 ; Diagnosis Code: [id number] ED Height and Weight Height Source : Stated Height Entry Format : Witt Height, Feet : 5 ft(Converted to: 152 cm, 60 Inch) Height, Inches : 9 Inch(Converted to: 0 ft 9 Inch, 22.86 cm) Clinical Height : 175.26 cm Weight Source, ED : Critical estimated dosing weight Weight Entry Format : Witt Weight, Pounds : 195 lb Clinical Dosing Weight : 88.64 kg Body Surface Area (BSA) : 2.05 m2 Body Mass Index : 28.9 kg/m2 (HI) [place] Body Weight (IBW) : 69.73 kg RADHA [...]
--- OUTSIDE RECORDS SUMMARY | 2025-07-04 12:19 | XMS_ITS | Encounter Summary ---
Author Organization [employer] ([place], [place], [place], [place]) Address [address] [place] [address] Care Team Providers Care Review Coordinator Name Role Phone Unavailable Primary Care Provider Unavailabl e Encounter Details Date Type Department Care Team (Late st Contact Info) Description 10/30/2019 Transcribed Document [facility] Cardiology [address] [place] [address] Lee Ann Quinonez MD [address] [facility] [address] [place] [address] Social History Tobacco Use Types [...] None Author: LEE ANN QUINONEZ MD-CAR BASIC Software Maintenance Engineer: Dr. Easley Subjective Post TAVR, doing well, ready for discharge home today. Health Status Current medications: (Selected) Inpatient Medications Ordered Ambien: 5 mg, Oral, At Bedtime, PRN: Sleep Artificial Tears ophthalmic solution: 1 Drop, Eyes Both, TID, PRN: Dry Eyes Driscoll Saline 0.65% nasal solution: 1 [place], Nasal, Q4H, PRN: Congestion Dulcolax Laxative: 10 [...] Normal strength, No deformity. Integumentary: Warm, Dry, [place], No rash. Neurologic: Alert, Oriented, No focal [...]
--- OUTSIDE RECORDS SUMMARY | 2025-07-04 12:19 | XMS_ITS | Encounter Summary ---
Author Organization [employer] ([place], [place], [place], [place]) Address [address] [place] [address] Care Team Providers Care Turf Farm Worker Name Role Phone Unavailable Primary Care Provider Unavailabl e Encounter Details Date Type Department Care Team (Late st Contact Info) Description 11/04/2019 Transcribed Document [facility] [place] Family Medicine [facility] [place] [address] ProviderPrasanth MD [address] [place] [address] Social History Tobacco Use Types Packs/Day Years Used Date Smoking Tobacco: Never Assessed Sex and Gender Information Value Date Recorded Sex Assigned at Not on file Legal Sex Male 6:49 PM CDT Gender Identity Not on file Sexual Orientation Not on file documented as of this encounter Miscellaneous Notes * Cerner Conversion Note - Prasanth Sanchez MD - 11/04/2019 10:27 PM OPHTHALMIC ASST DATE OF ADMISSION: 11/04/2019 PRIMARY CARE PHYSICIAN: Dr. Marcelino Caldera, [facility]. REFERRING PHYSICIAN: Dr. Beckman, [facility] , 1935. CURRENT COMPLAINT: [...] children. He and his live in the [facility]. 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 [...] anticipate likely permanent pacemaker placement on 11/05. /[id number] MD RHIANNON Martínez/AQ / MGAmaury / MODL CC: MD Roberta Royal MD Hamid R Mohammadzadeh, MD Jason Sartini Electronically signed by [employer], [facility] Conversion Picked Edge Sewing Machine Operator Cerner at 01/26/2023 8:53 PM CDT documented in this encounter Plan of Treatment Not on file documented as of this encounter Visit Diagnoses Not on filedocumented in this encounter
--- OUTSIDE RECORDS SUMMARY | 2025-07-04 12:19 | XMS_ITS | Encounter Summary ---
Author Organization [employer] ([place], [place], [place], [place]) Address [address] [place] [address] Care Team Providers Care Cutter Machine Tender Name Role Phone Unavailable Primary Care Provider Unavailabl e Encounter Details Date Type Department Care Team (Late st Contact Info) Description 11/04/2019 Transcribed Document [facility] [place] Family Medicine [address] [place] [address] ProviderPrasanth MD [address] [place] [address] Social History Tobacco Use Types Packs/Day Years Used Date Smoking Tobacco: Never Assessed Sex and Gender Information Value Date Recorded Sex Assigned at Not on file Legal Sex Male 6:49 PM CDT Gender Identity Not on file Sexual Orientation Not on file documented as of this encounter Miscellaneous Notes * Cerner Conversion Note - Historical ProviderMD - 11/04/2019 7:33 PM INSTRUMENT AND CONTROLS TECHNICIAN [place] Suicide Severity Rating Scale (C-SSRS) Entered On: 11/04/2019 21:44 EST Performed On: 11/04/2019 21:37 EST by MARIA TERESA KAT RN [place] Suicide Severity Rating Scale (C-SSRS) CSSRS Past [...]
--- OUTSIDE RECORDS SUMMARY | 2025-07-04 12:19 | XMS_ITS | Encounter Summary ---
Author Organization [employer] ([place], [place], [place], [place]) Address [address] [place] [address] Care Team Providers Care Conveyor Line Bakery Worker Name Role Phone Unavailable Primary Care Provider Unavailabl e Encounter Details Date Type Department Care Team (Late st Contact Info) Description 09/11/2019 Transcribed Document [facility] [place] Family Medicine [address] [place] [address] ProviderPrasanth MD [address] [place] [address] Social History Tobacco Use Types Packs/Day Years Used Date Smoking Tobacco: Never Assessed Sex and Gender Information Value Date Recorded Sex Assigned at Not on file Legal Sex Male 6:49 PM CDT Gender Identity Not on file Sexual Orientation Not on file documented as of this encounter Miscellaneous Notes * Cerner Conversion Note - Prasanth Sanchez MD - 09/11/2019 11:49 AM CONSULTING NETWORKING ENGINEER Patient Education Materials Follows: Groin Site Care [...] Document Reviewed: 10/29/2011 ExitCare? Patient Information ?2013 [employer]. Moderate Conscious Sedation, Adult, Care After These [...] you are awake and alert. ??? Take zltf-jyu-jgmixle and prescription medicines only as told by [...] 07/17/2014 Document Revised: 02/28/2017 Document Reviewed: 01/15/2017 ElseSocial Moov Interactive Patient Education ? 2019 [employer] documented in this encounter Plan of Treatment Not on file documented as of this encounter Visit Diagnoses Not on filedocumented in this encounter
--- OUTSIDE RECORDS SUMMARY | 2025-07-04 12:19 | XMS_ITS | Encounter Summary ---
Author Organization [employer] ([place], [place], [place], [place]) Address [address] [place] [address] Care Team Providers Care Marketing Forecaster Name Role Phone Unavailable Primary Care Provider Unavailabl e Encounter Details Date Type Department Care Team (Late st Contact Info) Description 11/14/2018 Transcribed Document [facility] [place] Family Medicine [facility] [place] [address] ProviderPrasanth MD [facility] [place] [address] Social History Tobacco Use Types Packs/Day Years Used Date Smoking Tobacco: Never Assessed Sex and Gender Information Value Date Recorded Sex Assigned at Not on file Legal Sex Male 6:49 PM CDT Gender Identity Not on file Sexual Orientation Not on file documented as of this encounter Miscellaneous Notes * Cerner Conversion Note - Prasanth Sanchez MD - 11/14/2018 12:26 PM HYDROMETER TESTER [address] [address] Patient Copy Patient Information: Name: SHIRA GARZA HORACIO Current Date: 11/14/2018 12:26:04 : 1935 Patient [address]: [address] [place] [address] [place] [address] Patient Attending Physician: Primary Care Provider: KARON [...] is done for people who: ??? Have Bwamw-Kmfmsjqxd-Tvatw syndrome. ??? Have other fast heart rhythms [...] 02/21/2014 Elsevier Interactive Patient Education ? 2017 [employer] Atrial Flutter Atrial flutter is a [...] Follow these instructions at home: ??? Take ercf-uzf-kfmftyy and prescription medicines only as told by [...] 02/12/2010 Document Revised: 02/02/2017 Document Reviewed: 04/09/2016 [employer]Me[employer]tv Interactive Patient Education ? 2017 [employer]. Moderate Conscious Sedation, Adult, Care After [...] you are awake and alert. ??? Take ptpr-pwh-bhdvhzi and prescription medicines only as told by [...] 07/17/2014 Document Revised: 02/28/2017 Document Reviewed: 01/15/2017 ElsePurplu Interactive Patient Education ? 2017 [employer] CIGARETTE SMOKING: The facts are clear, cigarette smoking will shorten your life. Smoking can cause many illnesses along the way. As a healthcare provider, we recommend that you stop smoking. Assistance with quitting is available by contacting 1-812-VCFL-NOW. This is a free resource providing counseling, [...] Be sure to sign up for the RealPage patient portal, which gives you 02/05 access to your medical information ??? including these discharge instructions ??? using your computer, smartphone, or tablet. Just go to [employer] to get started. Questions? Call . [facility] would like to thank you for allowing us to assist you with your healthcare needs. KAYLA Yee RONALD HORACIO, (or contact representative) have received the above patient education materials/instructions and have verbalized understanding: Patient Signature _ Date/Time Patient Surgery Assistant Signature (if needed) Date/Time Clinician/Hospital Surgery Assistant Signature (if needed) Date/Time documented in this encounter Plan of Treatment Not on file documented as of this encounter Visit Diagnoses Not on filedocumented in this encounter
--- OUTSIDE RECORDS SUMMARY | 2025-07-04 12:19 | XMS_ITS | Encounter Summary ---
Author Organization [employer] ([place], [place], [place], [place]) Address [address] [place] [address] Care Team Providers Care Bulk Loader Name Role Phone Unavailable Primary Care Provider Unavailabl e Encounter Details Date Type Department Care Team (Late st Contact Info) Description 09/11/2019 Transcribed Document [facility] [place] Family Medicine [facility] [place] [address] ProviderPrasanth MD [facility] [place] [address] Social History Tobacco Use Types Packs/Day Years Used Date Smoking Tobacco: Never Assessed Sex and Gender Information Value Date Recorded Sex Assigned at Not on file Legal Sex Male 6:49 PM CDT Gender Identity Not on file Sexual Orientation Not on file documented as of this encounter Miscellaneous Notes * Cerner Conversion Note - Prasanth Sanchez MD - 09/11/2019 8:57 AM SITE DIRECTOR DATE OF SERVICE: 09/11/2019 PROCEDURE: Left heart [...] stenosis with severe ventricular hypertrophy. PROCEDURE: RFA, 5-Japanese sheath, 5-Japanese Denny multipack, Mynx assisted manual compression hemostasis. No adverse events. FINDINGS: Aortic pressure was 130/70. The valve was not crossed. The pressure contour of the aorta demonstrated significant delayed upstroke consistent with severe aortic stenosis. ANGIOGRAPHY: Ejection fraction normal by echocardiogram. The ascending aortography demonstrated dilation of the ascending aorta with tortuosity of the subclavian arteries. KETCHIKAN CIRCULATION: Right coronary artery known to be [...] the cardiac surgeon, Dr. Kyle for AVR. /[id number] MD JOSE ANTONIO Moore/AQ / JOSE ANTONIO / MODL /[id number] Electronically signed by Filiberto Shelton Conversion Centrifugal Chiller Technician Cerner at 01/26/2023 8:49 PM CDT documented in this encounter Plan of Treatment Not on file documented as of this encounter Visit Diagnoses Not on filedocumented in this encounter
--- OUTSIDE RECORDS SUMMARY | 2025-07-04 12:19 | XMS_ITS | Encounter Summary ---
Author Organization [employer] ([place], [place], [place], [place]) Address [address] [place] [address] Care Team Providers Care Trench Digger Helper Name Role Phone Unavailable Primary Care Provider Unavailabl e Encounter Details Date Type Department Care Team (Late st Contact Info) Description 09/25/2019 Transcribed Document [facility] [place] Family Medicine [address] [place] [address] ProviderPrasanth MD [address] [place] [address] Social History Tobacco Use Types Packs/Day Years Used Date Smoking Tobacco: Never Assessed Sex and Gender Information Value Date Recorded Sex Assigned at Not on file Legal Sex Male 6:49 PM CDT Gender Identity Not on file Sexual Orientation Not on file documented as of this encounter Miscellaneous Notes * Cerner Conversion Note - Prasanth Sanchez MD - 09/25/2019 12:59 PM PERSONAL LINES INSURANCE ADVISOR Patient Education Materials Follows: Angiogram, Care After [...] cannot use soap and water, use hand infant childcare provider. ? Change your bandage as told by [...] (urine) clear or pale yellow. ??? Take xjwt-bwl-rlljazp and prescription medicines only as told by [...] 12/23/2009 Document Revised: 09/20/2017 Document Reviewed: 09/20/2017 [employer]oo Interactive Patient Education ? 2019 [employer] Groin Site Care Refer to this [...] Document Reviewed: 10/29/2011 ExitCare? Patient Information ?2014 [employer]. Moderate Conscious Sedation, Adult, Care After These [...] you are awake and alert. ??? Take zlyx-rzz-mbqfbev and prescription medicines only as told by [...] 07/17/2014 Document Revised: 02/28/2017 Document Reviewed: 01/15/2017 [employer]oo Interactive Patient Education ? 2019 [employer] documented in this encounter Plan of Treatment Not on file documented as of this encounter Visit Diagnoses Not on filedocumented in this encounter
--- OUTSIDE RECORDS SUMMARY | 2025-07-04 12:19 | XMS_ITS | Encounter Summary ---
Author Organization [employer] ([place], [place], [place], [place]) Address [address] [place] [address] Care Team Providers Care Blueprint Machine Operator Name Role Phone Unavailable Primary Care Provider Unavailabl e Encounter Details Date Type Department Care Team (Late st Contact Info) Description 11/14/2018 Transcribed Document [facility] [place] [address] [place] [address] ProviderPrasanth MD [address] [place] [address] Social History Tobacco Use Types Packs/Day Years Used Date Smoking Tobacco: Never Assessed Sex and Gender Information Value Date Recorded Sex Assigned at Not on file Legal Sex Male 6:49 PM CDT Gender Identity Not on file Sexual Orientation Not on file documented as of this encounter Miscellaneous Notes * Cerner Conversion Note - Prasanth ProviderMD - 11/14/2018 11:32 AM POLICE RECORDS CLERK Nursing Discharge Summary Entered On: 11/14/2018 11:33 EST Performed On: 11/14/2018 11:32 EST by RADHA TERRAZAS back shoe worker Documentation Patient Disposition, General : Discharge Discharge [...] No driving for 24 hrs post procedure. RADAH TERRAZAS RN - 11/14/2018 12:32 EST Electronically signed by [facility] Conversion Steel Placer Cerner at 01/26/2023 9:08 PM CDT documented in this encounter Plan of Treatment Not on file documented as of this encounter Visit Diagnoses Not on filedocumented in this encounter
--- OUTSIDE RECORDS SUMMARY | 2025-07-04 12:19 | XMS_ITS | Encounter Summary ---
Author Organization [employer] ([place], [place], [place], [place]) Address [address] [place] [address] Care Team Providers Care Electrician Substation Name Role Phone Unavailable Primary Care Provider Unavailabl e Encounter Details Date Type Department Care Team (Late st Contact Info) Description 11/04/2019 Transcribed Document [facility] Neurology - [address] [facility] [address] [place] [address] [place] [address] [place] [address] [address] [place] [id number] Social History Tobacco Use Types Packs/Day Years [...]
--- OUTSIDE RECORDS SUMMARY | 2025-07-04 12:19 | XMS_ITS | Encounter Summary ---
Author Organization [email or web address] ([place], [place], [place], [place]) Address [address] [place] [address] Care Team Providers Care Substation Electrician Supervisor Name Role Phone Unavailable Primary Care Provider Unavailabl e Encounter Details Date Type Department Care Team (Late st Contact Info) Description 10/30/2019 Transcribed Document [facility] [place] [address] [place] [address] ProviderPrasanth MD [address] [place] [address] Social History Tobacco Use Types Packs/Day Years Used Date Smoking Tobacco: Never Assessed Sex and Gender Information Value Date Recorded Sex Assigned at Not on file Legal Sex Male 6:49 PM CDT Gender Identity Not on file Sexual Orientation Not on file documented as of this encounter Miscellaneous Notes * Cerner Conversion Note - Prasanth ProviderMD - 10/30/2019 3:13 PM CRAWLER CRANE OPERATOR Nursing Discharge Summary Entered On: 10/30/2019 15:14 EST Performed On: 10/30/2019 15:13 EST by Jason Thompson, supervisor fireworks assembly Documentation Discharge Date/Time : 10/30/2019 15:13 EST [...] 10/30/2019 15:13 EST Electronically signed by Nikita [facility] Conversion Retort Kiln Burner Cerner at 01/26/2023 8:54 PM CDT documented in this encounter Plan of Treatment Not on file documented as of this encounter Visit Diagnoses Not on filedocumented in this encounter
--- OUTSIDE RECORDS SUMMARY | 2025-07-04 12:19 | XMS_ITS | Encounter Summary ---
Author Organization [employer] ([place], [place], [place], [place]) Address [address] [place] [address] Care Team Providers Care Cannon Pinion Adjuster Name Role Phone Unavailable Primary Care Provider Unavailabl e Encounter Details Date Type Department Care Team (Late st Contact Info) Description 09/11/[address] [facility] [place] Medicine [address] [place] [address] ProviderPrasanth MD [address] [place] [address] Social History Tobacco Use Types Packs/Day Years Used Date Smoking Tobacco: Never Assessed Sex and Gender Information Value Date Recorded Sex Assigned at Not on file Legal Sex Male 6:49 PM CDT Gender Identity Not on file Sexual Orientation Not on file documented as of this encounter Miscellaneous Notes * Cerner Conversion Note - Historical ProviderMD - 09/11/2019 9:20 AM FRUCTOSE LOADER Event Note Entered On: 09/11/2019 9:24 EST Performed On: 09/11/2019 9:20 EST by AV KING RN Event Note Event Date/Time : 09/11/2019 9:00 EST Description of Event : 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
--- OUTSIDE RECORDS SUMMARY | 2025-07-04 12:19 | XMS_ITS | Encounter Summary ---
Author Organization [employer] ([place], [place], [place], [place]) Address [address] [place] [address] Care Team Providers Care Radius Corner Machine Operator Name Role Phone Unavailable Primary Care Provider Unavailabl e Encounter Details Date Type Department Care Team (Late st Contact Info) Description 10/30/[address] [facility] [place] [address] [place] [address] ProviderPrasanth MD [address] [place] [address] Social History Tobacco Use Types Packs/Day Years Used Date Smoking Tobacco: Never Assessed Sex and Gender Information Value Date Recorded Sex Assigned at Not on file Legal Sex Male 6:49 PM CDT Gender Identity Not on file Sexual Orientation Not on file documented as of this encounter Miscellaneous Notes * Cerner Conversion Note - Prasanth ProviderMD - 10/30/2019 3:11 PM LICENSED HOME INSPECTOR Final Discharge Planning Entered On: 10/30/2019 15:12 [...] : Yes Discharge To Care Management : Home/Residential/Half-Way or Self Care - SABRINA ROSE RN-Care Management - 10/30/2019 15:11 EST Electronically signed by Nikiat[facility] Conversion Software Quality Assurance Analyst Cerner at 01/26/2023 8:58 PM CDT documented in this encounter Plan of Treatment Not on file documented as of this encounter Visit Diagnoses Not on filedocumented in this encounter
--- OUTSIDE RECORDS SUMMARY | 2025-07-04 12:19 | XMS_ITS | Referral Summary ---
Author Organization [employer] ([place], [place], [place], [place]) Address [address] [place] [address] Care Team Providers Care Corrosion Control Specialist Name Role Phone Unavailable Primary Care [...]
--- OUTSIDE RECORDS SUMMARY | 2025-07-04 12:19 | XMS_ITS | Encounter Summary ---
Author Organization [employer] ([place], [place], [place], [place]) Address [address] [place] [address] Care Team Providers Care Shipfitter Helper Name Role Phone Unavailable Primary Care Provider Unavailabl e Encounter Details Date Type Department Care Team (Late st Contact Info) Description 11/14/2018 Transcribed Document [facility] [place] [facility] [place] [address] ProviderPrasanth MD [facility] [place] [address] Social History Tobacco Use Types Packs/Day Years Used Date Smoking Tobacco: Never Assessed Sex and Gender Information Value Date Recorded Sex Assigned at Not on file Legal Sex Male 6:49 PM CDT Gender Identity Not on file Sexual Orientation Not on file documented as of this encounter Miscellaneous Notes * Cerner Conversion Note - Prasanth ProviderMD - 11/14/2018 7:10 AM CONCRETE BATCH PLANT OPERATOR Pre Procedure Adult Entered On: 11/14/2018 7:19 EST Performed On: 11/14/2018 7:10 EST by RADHA TERRAZAS RN Height and Weight, Clinical Dosing Height Source : Stated Height Entry Format : [place] Height, Feet : 0 ft(Converted to: 0 cm, 0 Inch) Height, Inches : 69 Inch(Converted to: 5 ft 9 Inch, 175.26 cm) Clinical Height : 175.26 cm Weight Source : Standing scale Weight Entry Format : [place] Clinical Dosing Weight : 88.64 kg Weight, Pounds : 195 lb Body Surface Area (BSA) : 2.05 m2 Body Mass Index : 28.9 kg/m2 (HI) [place] Body Weight : 70 kg RADHA TERRAZAS [...] #2 Relationship : - Primary Language : Ugandan Communication Barrier : None RADHA TERRAZAS RN [...] Scale Risk Level : 0-24 Low Risk [place] Fall Interventions : Wheels locked RADHA TERRAZAS [...] form. Electronically signed by Carla Shelton Conversion Plumbing Engineering Draftsperson Cerner at 01/26/2023 8:56 PM CDT documented in this encounter Plan of Treatment Not on file documented as of this encounter Visit Diagnoses Not on filedocumented in this encounter
--- OUTSIDE RECORDS SUMMARY | 2025-07-04 12:19 | XMS_ITS | Encounter Summary ---
Author Organization [employer] ([place], [place], [place], [place]) Address [address] [place] [address] Care Team Providers Care Room Service Associate Name Role Phone Unavailable Primary Care Provider Unavailabl e Encounter Details Date Type Department Care Team (Late st Contact Info) Description 10/30/2019 Transcribed Document [facility] [place] Family Medicine [address] [place] [address] ProviderPrasanth MD [address] [place] [address] Social History Tobacco Use Types Packs/Day Years Used Date Smoking Tobacco: Never Assessed Sex and Gender Information Value Date Recorded Sex Assigned at Not on file Legal Sex Male 6:49 PM CDT Gender Identity Not on file Sexual Orientation Not on file documented as of this encounter Miscellaneous Notes * Cerner Conversion Note - Prasanth ProviderMD - 10/30/2019 8:23 AM BIOINFORMATICIAN UM Authorization Entered On: 10/30/2019 8:23 EST Performed On: 10/30/2019 8:23 EST by ENDER LOMBARDO RN Primary Insurance Authorization Authorization and Policy Numbers : Insurance 1 Health Plan: MEDICARE Policy Number: [id number] Authorization Number: Insurance 2 Health Plan: AARP N Policy Number: [id number] Authorization Number: Insurance Primary Name : MEDICARE Policy Number: [id number] Historical Authorization Comments-Primary : No Authorization Comments Found ENDER LOMBARDO RN - 10/30/2019 8:23 EST documented in this encounter Plan of Treatment Not on file documented as of this encounter Visit Diagnoses Not on filedocumented in this encounter
--- OUTSIDE RECORDS SUMMARY | 2025-07-04 12:19 | XMS_ITS | Encounter Summary ---
Author Organization [employer] ([place], [place], [place], [place]) Address [address] [place] [address] Care Team Providers Care Derrick Boat Lever Operator Name Role Phone Unavailable Primary Care Provider Unavailabl e Encounter Details Date Type Department Care Team (Late st Contact Info) Description 09/11/2019 Transcribed Document [facility] [place] Family Medicine [facility] [place] [address] ProviderPrasanth MD [facility] [place] [address] Social History Tobacco Use Types Packs/Day Years Used Date Smoking Tobacco: Never Assessed Sex and Gender Information Value Date Recorded Sex Assigned at Not on file Legal Sex Male 6:49 PM CDT Gender Identity Not on file Sexual Orientation Not on file documented as of this encounter Miscellaneous Notes * Cerner Conversion Note - Prasanth ProviderMD - 09/11/2019 11:52 AM MAMMALOGY TEACHER Nursing Discharge Summary Entered On: 09/11/2019 11:52 [...] 09/11/2019 11:52 EST Electronically signed by Nikita [facility] Conversion Director Of Financial Reporting Cerner at 01/26/2023 8:50 PM CDT documented in this encounter Plan of Treatment Not on file documented as of this encounter Visit Diagnoses Not on filedocumented in this encounter
--- OUTSIDE RECORDS SUMMARY | 2025-07-04 12:19 | XMS_ITS | Clinical Summary ---
Author Organization [employer] ([place], [place], [place], [place]) Address [address] [place] [address] Care Team Providers Care Data Migration Lead Name Role Phone Unavailable Primary Care Provider [...]
--- OUTSIDE RECORDS SUMMARY | 2025-07-04 12:19 | XMS_ITS | Encounter Summary ---
Author Organization [employer] ([place], [place], [place], [place]) Address [address] [place] [address] Care Team Providers Care Industrial Locomotive Operator Name Role Phone Unavailable Primary Care Provider Unavailabl e Encounter Details Date Type Department Care Team (Late st Contact Info) Description 09/11/2019 Transcribed Document [facility] [place] Medicine [facility] [place] [address] ProviderPrasanth MD [facility] [place] [address] Social History Tobacco Use Types Packs/Day Years Used Date Smoking Tobacco: Never Assessed Sex and Gender Information Value Date Recorded Sex Assigned at Not on file Legal Sex Male 6:49 PM CDT Gender Identity Not on file Sexual Orientation Not on file documented as of this encounter Miscellaneous Notes * Cerner Conversion Note - Prasanth ProviderMD - 09/11/2019 6:28 AM PATIENT COORDINATOR Pre Procedure Adult Entered On: 09/11/2019 6:39 EST Performed On: 09/11/2019 6:28 EST by AV KING RN Height and Weight, Clinical Dosing Height Source : Stated Height Entry Format : [place] Height, Feet : 5 ft(Converted to: 152 cm, 60 Inch) Height, Inches : 10 Inch(Converted to: 0 ft 10 Inch, 25.40 cm) Clinical Height : 177.8 cm Weight Source : Standing scale Weight Entry Format : [place] Clinical Dosing Weight : 92.27 kg Weight, Pounds : 203 lb Body Surface Area (BSA) : 2.1 m2 Body Mass Index : 29.2 kg/m2 (HI) [place] Body Weight : 72 kg AV KING [...] AV KING RN - 09/11/2019 6:28 EST [place] Suicide Severity Rating Scale (C-SSRS) CSSRS Past [...] #2 Relationship : .. Primary Language : Barbadian Communication Barrier : None AV KING RN [...] Scale Risk Level : 0-24 Low Risk [place] Fall Interventions : Adequate lighting, Assistive devices within reach, Bed in low position, Personal items within reach, Reinforced to call for assistance before getting out of bed VA KING RN - 09/11/2019 6:28 EST Valuables [...] form. Electronically signed by Carla Shelton Conversion Property And Casualty Insurance Agent Cerner at 01/26/2023 8:58 PM CDT documented in this encounter Plan of Treatment Not on file documented as of this encounter Visit Diagnoses Not on filedocumented in this encounter
--- OUTSIDE RECORDS SUMMARY | 2025-07-04 12:19 | XMS_ITS | Encounter Summary ---
Author Organization [employer] ([place], [place], [place], [place]) Address [address] [place] [address] Care Team Providers Care Supervisor Money Room Name Role Phone Unavailable Primary Care Provider Unavailabl e Encounter Details Date Type Department Care Team (Late st Contact Info) Description 10/30/2019 Transcribed Document [facility] [place] [address] [place] [address] ProviderPrasanth MD [address] [place] [address] Social History Tobacco Use Types Packs/Day Years Used Date Smoking Tobacco: Never Assessed Sex and Gender Information Value Date Recorded Sex Assigned at Not on file Legal Sex Male 6:49 PM CDT Gender Identity Not on file Sexual Orientation Not on file documented as of this encounter Miscellaneous Notes * Cerner Conversion Note - Prasanth Sanchez MD - 10/30/2019 12:20 PM ENGINEERING MECHANIC Patient Education Materials Follows: Groin Site Care [...] Document Reviewed: 10/29/2011 ExitCare? Patient Information ?2013 [employer]. documented in this encounter Plan of Treatment Not on file documented as of this encounter Visit Diagnoses Not on filedocumented in this encounter
--- OUTSIDE RECORDS SUMMARY | 2025-07-04 12:19 | XMS_ITS | Encounter Summary ---
Author Organization [employer] ([place], [place], [place], [place]) Address [address] [place] [address] Care Team Providers Care Rib Matcher And Fitter Name Role Phone Unavailable Primary Care Provider Unavailabl e Encounter Details Date Type Department Care Team (Late st Contact Info) Description 11/04/2019 Transcribed Document [facility] [place] Family [place] [address] [place] [address] ProviderPrasanth MD [address] [place] [address] Social History Tobacco Use Types Packs/Day Years Used Date Smoking Tobacco: Never Assessed Sex and Gender Information Value Date Recorded Sex Assigned at Not on file Legal Sex Male 6:49 PM CDT Gender Identity Not on file Sexual Orientation Not on file documented as of this encounter Miscellaneous Notes * Cerner Conversion Note - Prasanth ProviderMD - 11/04/2019 10:58 PM SKY DIVER ED Event Note Entered On: 11/04/2019 22:59 [...]
--- OUTSIDE RECORDS SUMMARY | 2025-07-04 12:19 | XMS_ITS | Encounter Summary ---
Author Organization [employer] ([place], [place], [place], [place]) Address [address] [place] [address] Care Team Providers Care Innersole Fitter Name Role Phone Unavailable Primary Care Provider Unavailabl e Encounter Details Date Type Department Care Team (Late st Contact Info) Description 09/11/2019 Transcribed Document [facility] [place] Family [place] [address] [place] [address] ProviderPrasanth MD [address] [place] [address] Social History Tobacco Use Types Packs/Day Years Used Date Smoking Tobacco: Never Assessed Sex and Gender Information Value Date Recorded Sex Assigned at Not on file Legal Sex Male 6:49 PM CDT Gender Identity Not on file Sexual Orientation Not on file documented as of this encounter Miscellaneous Notes * [employer]ner Conversion Note - Historical ProviderMD - 09/11/2019 11:21 AM BLOCKER AND SEWER Event Note Entered On: 09/11/2019 11:22 EST Performed On: 09/11/2019 11:21 EST by AV KING RN Event Note Event Date/Time : 09/11/2019 11:05 EST Description of Event : Patient has completed appropriate bed rest of 2 hours, he has walked and ready for discharge. Awaiting Dr Kyle to [facility] on Patient AV KING RN - 09/11/2019 11:21 EST documented in this encounter Plan of Treatment Not on file documented as of this encounter Visit Diagnoses Not on filedocumented in this encounter
--- OUTSIDE RECORDS SUMMARY | 2025-07-04 12:19 | XMS_ITS | Encounter Summary ---
Author Organization [employer] ([place], [place], [place], [place]) Address [address] [place] [address] Care Team Providers Care Psychology Associate Name Role Phone Unavailable Primary Care Provider Unavailabl e Encounter Details Date Type Department Care Team (Late st Contact Info) Description 11/04/2019 Transcribed Document [facility] [place] Family Medicine [address] [place] [address] ProviderPrasanth MD [address] [place] [address] Social History Tobacco Use Types Packs/Day Years Used Date Smoking Tobacco: Never Assessed Sex and Gender Information Value Date Recorded Sex Assigned at Not on file Legal Sex Male 6:49 PM CDT Gender Identity Not on file Sexual Orientation Not on file documented as of this encounter Miscellaneous Notes * [employer]ner Conversion Note - Historical ProviderMD - 11/04/2019 9:17 PM REINFORCED STEEL PLACING SUPERVISOR Consult Phone Call Documentation Entered On: 11/05/2019 8:19 EST Performed On: 11/04/2019 21:17 EST by Iris Banerjee [facility] Unit Coord Phone Call for Consults Consult Phone Call/Page Attempt : First call Consult Reason : traumatic subdural Physician Requesting Consult : RASHAUN FERRARI MD-INT Physician Requested for Consult : LESLY CHIANG MD-SNU Provider Service Notified Name : Neurosurgery Consult, Additional Information : called to office Iris Banerjee, [facility] Unit Coord - 11/05/2019 8:18 EST documented in this encounter Plan of Treatment Not on file documented as of this encounter Visit Diagnoses Not on filedocumented in this encounter
--- OUTSIDE RECORDS SUMMARY | 2025-07-04 12:19 | XMS_ITS | Encounter Summary ---
Author Organization [employer] ([place], [place], [place], [place]) Address [address] [place] [address] Care Team Providers Care Obstetric Anaesthetist Name Role Phone Unavailable Primary Care Provider Unavailabl e Encounter Details Date Type Department Care Team (Late st Contact Info) Description 10/30/2019 Transcribed Document [facility] [place] [address] [place] [address] ProviderPrasanth MD [address] [place] [address] Social History Tobacco Use Types Packs/Day Years Used Date Smoking Tobacco: Never Assessed Sex and Gender Information Value Date Recorded Sex Assigned at Not on file Legal Sex Male 6:49 PM CDT Gender Identity Not on file Sexual Orientation Not on file documented as of this encounter Miscellaneous Notes * [employer]ner Conversion Note - Prasanth ProviderMD - 10/30/2019 11:30 AM CARBON ELECTRODES SUPERVISOR Initial Discharge Planning Entered On: 10/30/2019 11:32 EST Performed On: 10/30/2019 11:30 EST by JAIMEE CARTAGENA Tree Sapper-Watchguard Initial Assessment I Previously Documented Living Environment : No qualifying data available. JAIMEE CARTAGENA Tree Sapper-Watchguard - 10/30/2019 11:32 EST Living Situation : [...] Yes Legal Guardian : No JAIMEE CARTAGENA Tree Sapper-Watchguard - 10/30/2019 11:30 EST Initial Assessment II Sensory and Motor Deficits : None Current Home Treatments and Equipment : None JAIMEE CARTAGENA Tree Sapper-Watchguard - 10/30/2019 11:30 EST Discharge Needs I Anticipated Discharge To, CM : Home independently Current Home Treatment/Equipment : Current Home Treatment/Equipment No qualifying data available. Post Acute/Home Treatments : None Documentation Status Complete : Yes JAIMEE CARTAGENA Tree Sapper-Watchguard - 10/30/2019 11:30 EST Discharge Needs II Professional Skilled Services : Professional Skilled Services No qualifying data available. Needs Assistance with Transportation : No Discharge Options Discussed with Patient : Discharge transportation, DME, Home Health JAIMEE CARTAGENA Tree Sapper-Watchguard - 10/30/2019 11:30 EST Narrative Note Narrative Note : Patient is a low readmission risk of 31. Patient denied ever having HH or SNF services. Patient reported that he is independent with ADLs. He reported that he does not anticipate having any discharge needs. CM will continue to follow for discharge needs. JAIMEE CARTAGENA Tree Sapper-Watchguard - 10/30/2019 11:32 EST documented in this encounter Plan of Treatment Not on file documented as of this encounter Visit Diagnoses Not on filedocumented in this encounter
--- OUTSIDE RECORDS SUMMARY | 2025-07-04 12:19 | XMS_ITS | Encounter Summary ---
Author Organization [employer] ([place], [place], [place], [place]) Address [address] [place] [address] Care Team Providers Care Bacteriologist Medical Name Role Phone Unavailable Primary Care Provider Unavailabl e Encounter Details Date Type Department Care Team (Late st Contact Info) Description 10/29/2019 Transcribed Document [facility] [place] [facility] [place] [address] ProviderPrasanth MD [facility] [place] [address] Social History Tobacco Use Types Packs/Day Years Used Date Smoking Tobacco: Never Assessed Sex and Gender Information Value Date Recorded Sex Assigned at Not on file Legal Sex Male 6:49 PM CDT Gender Identity Not on file Sexual Orientation Not on file documented as of this encounter Miscellaneous Notes * [employer]ner Conversion Note - Prasanth ProviderMD - 10/29/2019 6:00 AM BARREL ENDSHAKE ADJUSTER Patient: SHIRA GARZA HORACIO Age: 84 years [...] All Problems Wears glasses / SNOMED CT 582936445 / Confirmed Right bundle branch block / SNOMED CT 27360661 / Confirmed Renal calculus / SNOMED CT 020537622 / Confirmed Hypertension / SNOMED CT 01681552 / Confirmed Hyperlipidemia / SNOMED CT 24868474 / Confirmed Shortness of breath / SNOMED CT 407398503 / Confirmed CAD (coronary artery disease) / SNOMED CT 03512943 / Confirmed 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 Integumentary: Warm, Dry, [place]. Neurologic: Alert, Oriented. Psychiatric: Cooperative, Appropriate mood [...]
--- OUTSIDE RECORDS SUMMARY | 2025-07-04 12:19 | XMS_ITS | Encounter Summary ---
Author Organization [employer] ([place], [place], [place], [place]) Address [address] [place] [address] Care Team Providers Care Export Sales Assistant Name Role Phone Unavailable Primary Care Provider Unavailabl e Encounter Details Date Type Department Care Team (Late st Contact Info) Description 10/30/2019 Transcribed Document [facility] [place] [address] [place] [address] ProviderPrasanth MD [address] [place] [address] Social History Tobacco Use Types Packs/Day Years Used Date Smoking Tobacco: Never Assessed Sex and Gender Information Value Date Recorded Sex Assigned at Not on file Legal Sex Male 6:49 PM CDT Gender Identity Not on file Sexual Orientation Not on file documented as of this encounter Miscellaneous Notes * Cerner Conversion Note - Historical ProviderMD - 10/30/2019 12:20 PM CRACKER OFF Stroke/Warfarin Instructions Entered On: 10/30/2019 12:20 EST Performed On: 10/30/2019 12:20 EST by Jason Thompson, RN Stroke/Warfarin Instructions Stroke/TIA Discharge Ins : N/A Warfarin Discharge Ins : N/A Jason Thompson RN - 10/30/2019 12:20 EST Electronically signed by Filiberto Shelton Conversion Reproduction Machine Loader Cerner at 01/26/2023 9:10 PM CDT documented in this encounter Plan of Treatment Not on file documented as of this encounter Visit Diagnoses Not on filedocumented in this encounter
--- OUTSIDE RECORDS SUMMARY | 2025-07-04 12:20 | XMS_ITS | Encounter Summary ---
Author Organization [employer] ([place], [place], [place], [place]) Address [address] [place] [address] Care Team Providers Care Steel Welder Name Role Phone Unavailable Primary Care Provider Unavailabl e Encounter Details Date Type Department Care Team (Late st Contact Info) Description 06/02/2021 Transcribed Document [facility] [place] [address] [place] [address] ProviderPrasanth MD [address] [place] [address] Social History Tobacco Use Types [...] - 06/02/2021 11:32 EDT Electronically signed by Carla Shelton Conversion Accounts Receivable Representative Cerner at 01/26/2023 9:10 PM CDT documented in this encounter Plan of Treatment Not on file documented as of this encounter Visit Diagnoses Not on filedocumented in this encounter
--- OUTSIDE RECORDS SUMMARY | 2025-07-04 12:20 | XMS_ITS | Encounter Summary ---
Author Organization [employer] ([place], [place], [place], [place]) Address [address] [place] [address] Care Team Providers Care Child Welfare Worker Name Role Phone Unavailable Primary Care Provider Unavailabl e Encounter Details Date Type Department Care Team (Late st Contact Info) Description 08/04/2020 Transcribed Document [facility] [place] [address] [place] [address] ProviderPrasanth MD [address] [place] [address] Social History Tobacco Use Types [...] EDT Electronically signed by Carla Shelton Conversion Business Development Assistant Cerner at 01/26/2023 9:05 PM CDT documented in this encounter Plan of Treatment Not on file documented as of this encounter Visit Diagnoses Not on filedocumented in this encounter
--- OUTSIDE RECORDS SUMMARY | 2025-07-04 12:20 | XMS_ITS | Encounter Summary ---
Author Organization [employer] ([place], [place], [place], [place]) Address [address] [place] [address] Care Team Providers Care Tire Center Manager Name Role Phone Unavailable Primary Care Provider Unavailabl e Encounter Details Date Type Department Care Team (Late st Contact Info) Description 08/05/2020 Transcribed Document [facility] [place] [facility] [place] [address] ProviderPrasanth MD [facility] [place] [address] Social History Tobacco Use Types [...] Associated Diagnoses: None Author: CELESTINA RUIZ APRN [facility] CARDIOLOGY PROGRESS NOTE: DIAGNOSIS: 1. 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
--- OUTSIDE RECORDS SUMMARY | 2025-07-04 12:20 | XMS_ITS | Encounter Summary ---
Author Organization [employer] ([place], [place], [place], [place]) Address [address] [place] [address] Care Team Providers Care Senior Policy Associate Name Role Phone Unavailable Primary Care Provider Unavailabl e Encounter Details Date Type Department Care Team (Late st Contact Info) Description 09/26/2019 Transcribed Document [facility] [place] [facility] [place] [address] ProviderPrasanth MD [facility] [place] [address] Social History Tobacco Use Types Packs/Day Years Used Date Smoking Tobacco: Never Assessed Sex and Gender Information Value Date Recorded Sex Assigned at Not on file Legal Sex Male 6:49 PM CDT Gender Identity Not on file Sexual Orientation Not on file documented as of this encounter Miscellaneous Notes * Cerner Conversion Note - Prasanth ProviderMD - 09/26/2019 11:20 AM DIVISION DIRECTOR Initial Discharge Planning Entered On: 09/26/2019 11:23 EST Performed On: 09/26/2019 11:20 EST by JAIMEE CARTAGENA Executive Sous Chef-Sap Bw Architect Initial Assessment I Previously Documented Living [...] Is Guardianship Needed : No JAIMEE CARTAGENA Executive Sous Chef-Sap Bw Architect - 09/26/2019 11:20 EST Initial Assessment II Sensory and Motor Deficits : None Current Home Treatments and Equipment : None JAIMEE CARTAGENA Executive Sous Chef-Sap Bw Architect - 09/26/2019 11:20 EST Discharge Needs I Anticipated Discharge To, CM : Home independently Current Home Treatment/Equipment : Current Home Treatment/Equipment No qualifying data available. Post Acute/Home Treatments : None Documentation Status Complete : Yes JAIMEE CARTAGENA Executive Sous Chef-Sap Bw Architect - 09/26/2019 11:20 EST Discharge Needs II Professional Skilled Services : Professional Skilled Services No qualifying data available. Needs Assistance with Transportation : No Discharge Options Discussed with Patient : Discharge transportation, Home Health JAIMEE CARTAGENA Executive Sous Chef-Sap Bw Architect - 09/26/2019 11:20 EST Narrative Note [...] CM will continue to follow. JAIMEE CARTAGENA Executive Sous Chef-Sap Bw Architect - 09/26/2019 11:20 EST documented in this encounter Plan of Treatment Not on file documented as of this encounter Visit Diagnoses Not on filedocumented in this encounter
--- OUTSIDE RECORDS SUMMARY | 2025-07-04 12:20 | XMS_ITS | Encounter Summary ---
Author Organization [employer] ([place], [place], [place], [place]) Address [address] [place] [address] Care Team Providers Care Credit Checker Name Role Phone Unavailable Primary Care Provider Unavailabl e Encounter Details Date Type Department Care Team (Late st Contact Info) Description 06/02/2021 Transcribed Document [facility] [place] [address] [place] [address] ProviderPrasanth MD [address] [place] [address] Social History Tobacco Use Types [...] integrated, provides little strength/resource Active in a Congregational/Kirsten Group : No Quaker Preference : No moravian Dean Palmer Chaplain-Non Cert - 06/02/2021 20:52 EDT Spiritual Assessment Patient's Community/Relationship : Strength in patient's life Supportive Quaker Community : No Spirital Assessment Comment/Summary Report : SPIRITUAL ASSESSMENT COMMENT/SUMMARY No qualifying data available. Dean Palmer Chaplain-Non Cert - 06/02/2021 20:52 EDT Interventions Advance Directive Information Provided : No Emotional Support : Empathic/Engaged listening, Established trust, Information provided Spiritual and Quaker : Verify kirsten group connection, Spiritual/Quaker life explored Dean Palmer, Grader Marker-Non Cert - 06/02/2021 20:52 EDT Electronically signed by Nikita, [facility] Conversion Byproducts Operator Cerner at 01/26/2023 9:10 PM CDT documented in this encounter Plan of Treatment Not on file documented as of this encounter Visit Diagnoses Not on filedocumented in this encounter
--- OUTSIDE RECORDS SUMMARY | 2025-07-04 12:20 | XMS_ITS | Encounter Summary ---
Author Organization [employer] ([place], [place], [place], [place]) Address [address] [place] [address] Care Team Providers Care Grain Scooper Name Role Phone Unavailable Primary Care Provider Unavailabl e Encounter Details Date Type Department Care Team (Late st Contact Info) Description 08/06/2020 Transcribed Document [facility] [place] Family Medicine [address] [place] [address] ProviderPrasanth MD [address] [place] [address] Social History Tobacco Use Types [...] On: 08/06/2020 9:04 EDT by ALVINA GIVENS RN-Specialty Molder Final Discharge Planning Discharge Arrangements : Patient [...] : Yes Discharge To Care Management : Home/Residential/Penitentiary or Self Care -01 ALVINA GIVENS, RN-Specialty Molder - 08/06/2020 9:04 EDT Final Narrative Note Final Narrative Note : pt will dc home. was given eliquis card/coupon for free 30 day trial. no further cm needs. ALVINA GIVENS RN-Specialty Molder - 08/06/2020 9:04 EDT documented in this encounter Plan of Treatment Not on file documented as of this encounter Visit Diagnoses Not on filedocumented in this encounter
--- OUTSIDE RECORDS SUMMARY | 2025-07-04 12:20 | XMS_ITS | Encounter Summary ---
Author Organization [employer] ([place], [place], [place], [place]) Address [address] [place] [address] Care Team Providers Care Laser Operator Name Role Phone Unavailable Primary Care Provider Unavailabl e Encounter Details Date Type Department Care Team (Late st Contact Info) Description 06/03/2021 Transcribed Document [facility] [place] [address] [place] [address] ProviderPrasanth MD [address] [place], [...] as needed from here. Call with questions. Electronically signed by Carla Shelton Conversion Rigging And Controls Aircraft Mechanic Dev[employer] at 01/26/2023 8:55 PM CDT documented in this encounter Plan of Treatment Not on file documented as of this encounter Visit Diagnoses Not on filedocumented in this encounter
--- OUTSIDE RECORDS SUMMARY | 2025-07-04 12:20 | XMS_ITS | Encounter Summary ---
Author Organization [employer] ([place], [place], [place], [place]) Address [address] [place] [address] Care Team Providers Care Burnisher And Bumper Name Role Phone Unavailable Primary Care Provider Unavailabl e Encounter Details Date Type Department Care Team (Late st Contact Info) Description 09/11/2019 Transcribed Document [facility] [place] [address] [place] [address] ProviderPrasanth MD [address] [place] [address] Social History Tobacco Use Types Packs/Day Years Used Date Smoking Tobacco: Never Assessed Sex and Gender Information Value Date Recorded Sex Assigned at Not on file Legal Sex Male 6:49 PM CDT Gender Identity Not on file Sexual Orientation Not on file documented as of this encounter Miscellaneous Notes * Cerner Conversion Note - Prasanth Sanchez MD - 09/11/2019 11:55 AM DIE PRESS OPERATOR DATE OF CONSULTATION: 09/11/2019 REASON FOR CONSULTATION: Evaluation of aortic stenosis. HISTORY OF PRESENT ILLNESS: Mr. 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 He also has undergone previous [...] Mr. Cormier and his and they understand. /[id number] Flaco Kyle IV, MD RDF/AQ / RDF / MODL /[id number] CC: Jason Easley MD documented in this encounter Plan of Treatment Not on file documented as of this encounter Visit Diagnoses Not on filedocumented in this encounter
--- OUTSIDE RECORDS SUMMARY | 2025-07-04 12:20 | XMS_ITS | Encounter Summary ---
Author Organization [employer] ([place], [place], [place], [place]) Address [address] [place] [address] Care Team Providers Care Structural Steel Worker Helper Name Role Phone Unavailable Primary Care Provider Unavailabl e Encounter Details Date Type Department Care Team (Late st Contact Info) Description 06/03/2021 Transcribed Document [facility] [place] [address] [place] [address] ProviderPrasanth MD [address] [place] [address] Social History Tobacco Use Types [...] On: 06/03/2021 9:00 EDT by Chang Medrano, Charge Authorizer-Student Nurse NIH Stroke Scale *Q NIH Assessment [...] NIH Scale Score : 0 Chang Medrano, Charge Authorizer-Student Nurse - 06/03/2021 7:31 EDT documented in this encounter Plan of Treatment Not on file documented as of this encounter Visit Diagnoses Not on filedocumented in this encounter
--- OUTSIDE RECORDS SUMMARY | 2025-07-04 12:20 | XMS_ITS | Encounter Summary ---
Author Organization [employer] ([place], [place], [place], [place]) Address [address] [place] [address] Care Team Providers Care Health Counselor Name Role Phone Unavailable Primary Care Provider Unavailabl e Encounter Details Date Type Department Care Team (Late st Contact Info) Description 06/03/[address] [facility] [place] [facility] [place] [address] ProviderPrasanth MD [address] [place] [address] Social History Tobacco Use [...] Diagnostic Results Radiology Results (Last 48 hours) [id number] -- 06/02/2021 12:02 CR Chest 2 Vws [...] Lymph # 1.96 x10(3)/uL 06/02/2021 21:54 EDT Ray % 9.8 % (High) 06/03/2021 03:08 EDT Ray % 10.5 % (High) 06/02/2021 21:54 EDT Ray # 0.66 K/uL 06/03/2021 03:08 EDT Ray # 0.63 K/uL 06/02/2021 21:54 EDT Eos [...] MD-INT 06/02/2021 14:11 EDT Electronically signed by [facility], [facility] Conversion Director Of Sales Support Cerner at 01/26/2023 8:54 PM CDT documented in this encounter Plan of Treatment Not on file documented as of this encounter Visit Diagnoses Not on filedocumented in this encounter
--- OUTSIDE RECORDS SUMMARY | 2025-07-04 12:20 | XMS_ITS | Encounter Summary ---
Author Organization [employer] ([place], [place], [place], [place]) Address [address] [place] [address] Care Team Providers Care Patrol Deputy Sheriff Name Role Phone Unavailable Primary Care Provider Unavailabl e Encounter Details Date Type Department Care Team (Late st Contact Info) Description 08/05/2020 Transcribed Document [facility] [place] [address] [place] [address] ProviderPrasanth MD [address] [place] [address] Social History Tobacco Use Types Packs/Day Years Used Date Smoking Tobacco: Never Assessed Sex and Gender Information Value Date Recorded Sex Assigned at Not on file Legal Sex Male 6:49 PM CDT Gender Identity Not on file Sexual Orientation Not on file documented as of this encounter Miscellaneous Notes * Cerner Conversion Note - Prasanth ProviderMD - 08/05/2020 2:00 AM CDT Supervisor Agricultural Education Details Entered On: 08/05/2020 1:07 EDT Performed On: 08/05/2020 2:00 EDT by Tish Calvillo Rn Order Details Order Detail : N/A Tish Calvillo Rn - 08/05/2020 1:07 EDT documented in this encounter Plan of Treatment Not on file documented as of this encounter Visit Diagnoses Not on filedocumented in this encounter
--- OUTSIDE RECORDS SUMMARY | 2025-07-04 12:20 | XMS_ITS | Encounter Summary ---
Author Organization [employer] ([place], [place], [place], [place]) Address [address] [place] [address] Care Team Providers Care Pbx Installer Name Role Phone Unavailable Primary Care Provider Unavailabl e Encounter Details Date Type Department Care Team (Late st Contact Info) Description 08/06/2020 Transcribed Document [facility] [place] [address] [place] [address] ProviderPrasanth MD [address] [place] [address] Social History Tobacco Use Types Packs/Day Years Used Date Smoking Tobacco: Never Assessed Sex and Gender Information Value Date Recorded Sex Assigned at Not on file Legal Sex Male 6:49 PM CDT Gender Identity Not on file Sexual Orientation Not on file documented as of this encounter Miscellaneous Notes * Cerner Conversion Note - Prasnath ProviderMD - 08/06/2020 5:00 AM CDT Chart [...]
--- OUTSIDE RECORDS SUMMARY | 2025-07-04 12:20 | XMS_ITS | Encounter Summary ---
Author Organization [employer] ([place], [place], [place], [place]) Address [address] [place] [address] Care Team Providers Care J2Ee Programmer Name Role Phone Unavailable Primary Care Provider Unavailabl e Encounter Details Date Type Department Care Team (Late st Contact Info) Description 08/05/2020 Transcribed Document [facility] [place] [address] [place] [address] ProviderPrasanth MD [address] [place] [address] Social History Tobacco Use Types [...] On: 08/05/2020 17:35 EDT by MARYBETH MORAN Rn-Separations Scientist Initial Assessment I Previously Documented Living Environment [...] Listed? : Yes Medical Durable Power of Copier And Printer Field Technician Name : Legal Guardian : No MARYBETH MORAN Rn-Separations Scientist - 08/05/2020 17:35 EDT Initial Assessment II Sensory and Motor Deficits : None, Weakness Current Home Treatments and Equipment : None MARYBETH MORAN Rn-Separations Scientist - 08/05/2020 17:35 EDT Discharge Needs I Anticipated Discharge Date : 08/06/2020 EDT Anticipated Discharge To, CM : Home with family care Current Home Treatment/Equipment : Current Home Treatment/Equipment No qualifying data available. Post Acute/Home Treatments : None Documentation Status Complete : Yes MARYBETH MORAN Rn-Separations Scientist - 08/05/2020 17:35 EDT Discharge Needs II Professional Skilled Services : Professional Skilled Services No qualifying data available. Needs Assistance with Transportation : No Discharge Options Discussed with Patient : Discharge transportation, Outpatient services MARYBETH MORAN Rn-Separations Scientist - 08/05/2020 17:35 EDT Narrative Note Narrative Note : Patient is I-ADL, will drive home, anticipate dc tomorrow with Eliquis or coumadin. MARYBETH MORAN Rn-Separations Scientist - 08/05/2020 17:35 EDT documented in this encounter Plan of Treatment Not on file documented as of this encounter Visit Diagnoses Not on filedocumented in this encounter
--- OUTSIDE RECORDS SUMMARY | 2025-07-04 12:20 | XMS_ITS | Encounter Summary ---
Author Organization [employer] ([place], [place], [place], [place]) Address [address] [place] [address] Care Team Providers Care Quality Lead Name Role Phone Unavailable Primary Care Provider Unavailabl e Encounter Details Date Type Department Care Team (Late st Contact Info) Description 08/04/2020 Transcribed Document [facility] [place] Family [place] [address] [place] [address] ProviderPrasanth MD [address] [place] [address] Social History Tobacco Use Types [...] at that time. The patient presented to [facility] on 08/03 with complaints of midsternal sharp chest pain, radiating in nature to bilateral arms and jaws. He had associated shortness of breath, worsened with exertion. He took a total of 4 nitroglycerin over 45 minutes without relief. CTA revealed gallstones, punctate calcifications throughout the pancreas, bilateral adrenal adenomas, nonobstructing right renal stones, no pulmonary emboli. The patient was transferred to [facility] for higher level of care [...] CAD/ prior 5V CABG optimize medical management [facility] 09/2019 revealed patent grafts Thrombosed aortic valve, [...]
--- OUTSIDE RECORDS SUMMARY | 2025-07-04 12:20 | XMS_ITS | Encounter Summary ---
Author Organization [employer] ([place], [place], [place], [place]) Address [address] [place] [address] Care Team Providers Care Scrap Baller Name Role Phone Unavailable Primary Care Provider Unavailabl e Encounter Details Date Type Department Care Team (Late st Contact Info) Description 09/11/2019 Transcribed Document [facility] [place] [address] [place] [address] ProviderPrasanth MD [address] [place] [address] Social History Tobacco Use Types Packs/Day Years Used Date Smoking Tobacco: Never Assessed Sex and Gender Information Value Date Recorded Sex Assigned at Not on file Legal Sex Male 6:49 PM CDT Gender Identity Not on file Sexual Orientation Not on file documented as of this encounter Miscellaneous Notes * Cerner Conversion Note - Historical ProviderMD - 09/11/2019 12:14 PM ENTRY LEVEL ELECTRICAL ENGINEER Event Note Entered On: 09/11/2019 12:17 EST [...] 09/11/2019 12:14 EST Electronically signed by Nikita [facility] Conversion Spool Tender Devynner at 01/26/2023 9:01 PM CDT documented in this encounter Plan of Treatment Not on file documented as of this encounter Visit Diagnoses Not on filedocumented in this encounter
--- OUTSIDE RECORDS SUMMARY | 2025-07-04 12:20 | XMS_ITS | Encounter Summary ---
Author Organization [employer] ([place], [place], [place], [place]) Address [address] [place] [address] Care Team Providers Care Development Administrator Name Role Phone Unavailable Primary Care Provider Unavailabl e Encounter Details Date Type Department Care Team (Late st Contact Info) Description 08/05/2020 Transcribed Document [facility] [place] [address] [place] [address] ProviderPrasanth MD [address] [place] [address] Social History Tobacco Use Types [...] Insurance 1 Health Plan: MEDICARE Policy Number: [id number] Authorization Number: Insurance Primary Name : MEDICARE Policy Number: [id number] Historical Authorization Comments-Primary : No Authorization Comments Found DIVINA HUGHES Rn-Utilization Review - 08/05/2020 14:39 EDT documented in this encounter Plan of Treatment Not on file documented as of this encounter Visit Diagnoses Not on filedocumented in this encounter
--- OUTSIDE RECORDS SUMMARY | 2025-07-04 12:20 | XMS_ITS | Encounter Summary ---
Author Organization [employer] ([place], [place], [place], [place]) Address [address] [place] [address] Care Team Providers Care Senior Quality Manager Name Role Phone Unavailable Primary Care Provider Unavailabl e Encounter Details Date Type Department Care Team (Late st Contact Info) Description 08/05/2020 Transcribed Document [facility] [place] [address] [place] [address] ProviderPrasanth MD [address] [place] [address] Social History Tobacco Use Types [...] - Medical Apixaban 5 mg, Oral, Tab, [id number], Routine, Start 08/06/20 7:00:00 EDT, 08/06/20 7:00:00 EDT (CJ AVITIA) Medications aspirin, 81 mg= 1 Tab, Oral, Daily Eliquis, 5 mg= 1 Tab, Oral, [id number] hydroCHLOROthiazide, 12.5 mg= 0.5 Tab, Oral, Daily [...] EDT INR 4.0 (High) 08/05/2020 12:32 EDT Electronically signed by Filiberto Shelton Conversion Clinical Education Coordinator Cerner at 01/26/2023 9:08 PM CDT documented in this encounter Plan of Treatment Not on file documented as of this encounter Visit Diagnoses Not on filedocumented in this encounter
--- OUTSIDE RECORDS SUMMARY | 2025-07-04 12:20 | XMS_ITS | Encounter Summary ---
Author Organization [employer] ([place], [place], [place], [place]) Address [address] [place] [address] Care Team Providers Care Welcome Center Attendant Name Role Phone Unavailable Primary Care Provider Unavailabl e Encounter Details Date Type Department Care Team (Late st Contact Info) Description 06/03/2021 Transcribed Document [facility] [place] Family Medicine [address] [place] [address] ProviderPrasanth MD [address] [place] [address] Social History Tobacco Use Types [...] On: 06/03/2021 15:57 EDT by EMILIE MOON RN-Consumer Education Specialist Initial Assessment I Previously Documented Living Environment : No qualifying data available. Living Situation : Home Patient Lives With : Spouse Employment/Vocation : Retired Emergency Contact #1 : Rosa Elena Bustamante Emergency Contact #1 Phone Number : [phone] Emergency Contact #1 Relationship : Emergency Contact #2 : na Emergency Contact #2 Phone Number : na Emergency Contact #2 Relationship : na Enter Doctors Name : Nicole Juan Does Patient have PCP Listed? : Yes Medical Durable Power of Wafer Machine Operator Name : Legal Guardian : No EMILIE MOON RN-Consumer Education Specialist - 06/03/2021 15:57 EDT Initial Assessment II Sensory and Motor Deficits : None, Weakness Current Home Treatments and Equipment : None EMILIE MOON RN-Consumer Education Specialist - 06/03/2021 15:57 EDT Discharge Needs I Anticipated Discharge Date : 06/06/2021 EDT Anticipated Discharge To, CM : Home with family care, Home with home health Current Home Treatment/Equipment : Current Home Treatment/Equipment No qualifying data available. Documentation Status Complete : Yes EMILIE MOON RN-Consumer Education Specialist - 06/03/2021 15:57 EDT Discharge Needs II Professional Skilled Services : Professional Skilled Services No qualifying data available. Needs Assistance with Transportation : No Discharge Options Discussed with Patient : Discharge transportation, DME, Home Health Patient Discharge Goal : Home EMILIE MOON RN-Consumer Education Specialist - 06/03/2021 15:57 EDT Narrative Note Narrative [...] pain. Consults: Cardiology, Neurology Patient lives in [place] with his Rosa Elena [phone]. His PCP is Dr. Martinez. Patient is ADL independent, drives and very active at home. No prior rehab stay, home health services, home oxygen or DME. will transport at discharge. DCP: Anticipate patient will discharge home with . CM will continue to follow for any needed referrals. EMILIE MOON RN-Consumer Education Specialist - 06/03/2021 15:57 EDT Electronically signed by Carla Shelton Conversion Senior Business Development Analyst Cerner at 01/26/2023 9:06 PM CDT documented in this encounter Plan of Treatment Not on file documented as of this encounter Visit Diagnoses Not on filedocumented in this encounter
--- OUTSIDE RECORDS SUMMARY | 2025-07-04 12:20 | XMS_ITS | Encounter Summary ---
Author Organization [email or web address] ([place], [place], [place], [place]) Address [address] [place] [address] Care Team Providers Care Cold Reduction Roller Name Role Phone Unavailable Primary Care Provider Unavailabl e Encounter Details Date Type Department Care Team (Late st Contact Info) Description 06/03/2021 Transcribed Document [facility] [place] Family Medicine [address] [place] [address] ProviderPrasanth MD [address] [place] [address] Social History Tobacco Use Types Packs/Day Years Used Date Smoking Tobacco: Never Assessed Sex and Gender Information Value Date Recorded Sex Assigned at Not on file Legal Sex Male 6:49 PM CDT Gender Identity Not on file Sexual Orientation Not on file documented as of this encounter Miscellaneous Notes * Cerner Conversion Note - Historical ProviderMD - 06/03/2021 11:03 AM CDT REFRIGERATING TECHNICIAN Attempt to Treat Entered On: 06/03/2021 11:03 EDT Performed On: 06/03/2021 11:03 EDT by JANES WHITTINGTON SLP Attempt to Treat Inability to Treat Comment : Further cognitive evaluation not warranted. Notification : JANES LAM SLP - 06/03/2021 11:03 EDT Electronically signed by Nikita [facility] Conversion Probe Operator Cerner at 01/26/2023 9:10 PM CDT documented in this encounter Plan of Treatment Not on file documented as of this encounter Visit Diagnoses Not on filedocumented in this encounter
--- OUTSIDE RECORDS SUMMARY | 2025-07-04 12:20 | XMS_ITS | Encounter Summary ---
Author Organization [employer] ([place], [place], [place], [place]) Address [address] [place] [address] Care Team Providers Care Quality Assurance Clerk Name Role Phone Unavailable Primary Care Provider Unavailabl e Encounter Details Date Type Department Care Team (Late st Contact Info) Description 08/06/2020 Transcribed Document [facility] [place] [address] [place] [address] ProviderPrasanth MD [address] [place] [address] Social History Tobacco Use Types [...] a heart-healthy eating plan. Medicines ??? Take vgks-uzr-bmecrdo and prescription medicines only as told by [...] 09/26/2006 Document Revised: 10/08/2019 Document Reviewed: 10/08/2019 Opiatalk Patient Education ? 2020 [employer]. Pharmacology Aspirin and Your Heart Aspirin is [...] The two forms of aspirin are: ? Frw-axasanu-rnapra.This type of aspirin does not have a coating and is absorbed quickly. This type of aspirin also comes in a chewable form. ? Enteric-coated. This type of aspirin has a coating that releases the medicine very slowly. Enteric-coated aspirin might cause less stomach upset than hwu-fniynyv-zwnjuk aspirin. This type of aspirin should not [...] 09/08/2009 Document Revised: 07/27/2018 Document Reviewed: 07/27/2018 ElseProcurify Patient Education ? 2020 [employer]. Preventive Health Venous Thromboembolism Prevention Venous thromboembolism [...] for Disease Control and Prevention: www.cdc.gov ??? [place] Heart Association: www.heart.org Get help right away [...] Reviewed: 12/04/2019 Elsevier Patient Education ? 2019 [employer]cur[employer] Inc. Procedures Mitral Valve Replacement Mitral valve [...] including vitamins, herbs, eye drops, creams, and qjep-rlo-tlgdrnj medicines. ??? Any problems you or family [...] tells you to take them. ? Taking madz-oyv-gkifbwx medicines, vitamins, herbs, and supplements. Staying hydrated [...] 01/27/2006 Document Revised: 06/19/2019 Document Reviewed: 06/19/2019 ElseProcurify Patient Education ? 2020 Opiatalk Inc. documented in this encounter Plan of Treatment Not on file documented as of this encounter Visit Diagnoses Not on filedocumented in this encounter
--- OUTSIDE RECORDS SUMMARY | 2025-07-04 12:20 | XMS_ITS | Encounter Summary ---
Author Organization [employer] ([place], [place], [place], [place]) Address [address] [place] [address] Care Team Providers Care Casino Surveillance Officer Name Role Phone Unavailable Primary Care Provider Unavailabl e Encounter Details Date Type Department Care Team (Late st Contact Info) Description 06/03/[address] [facility] [place] [facility] [place] [address] ProviderPrasanth MD [facility] [place] [address] Social History Tobacco Use Types [...] Male : 1935 Associated Diagnoses: None Author: BIHN NORIEGA NP [facility] CARDIOLOGY PROGRESS NOTE: DIAGNOSIS: 1. Elevated troponin [...] to historical echo. - No plans for [facility] at this time, given recent TIA [...]
--- OUTSIDE RECORDS SUMMARY | 2025-07-04 12:20 | XMS_ITS | Encounter Summary ---
Author Organization [employer] ([place], [place], [place], [place]) Address [address] [place] [address] Care Team Providers Care Sales Representative Publications Name Role Phone Unavailable Primary Care Provider Unavailabl e Encounter Details Date Type Department Care Team (Late st Contact Info) Description 06/02/2021 Transcribed Document [facility] [place] Medicine [address] [place] [address] ProviderPrasanth MD [address] [place] [address] Social History Tobacco Use [...] On: 06/02/2021 12:40 EDT by Chang Medrano Custom Wood Stair Builder-Student Nurse Teaching/Learning Assessment Barriers To Learning : None evident Individuals Taught : Patient Readiness to Learn : Cooperative Readiness to Learn : Explanation, Teach back method Learning Style Preferences Patient : Verbal explanation Learning Style Preferences Family : Verbal explanation Chang Medrano, Custom Wood Stair Builder-Student Nurse - 06/02/2021 15:51 EDT Education Topics: Stroke (By Discharge) Stroke Education Handouts Given *Q : Yes Chang Medrano Custom Wood Stair Builder-Student Nurse - 06/02/2021 15:51 EDT Stroke Education Materials Given-Grid Activation of EMS *Q : Verbalizes understanding Follow-up Care After Discharge *Q : Verbalizes understanding Medications prescribed at DC *Q : Verbalizes understanding Risk Factors for Stroke *Q : Verbalizes understanding Warning S&S of Stroke *Q : Verbalizes understanding Chang Medrano, Custom Wood Stair Builder-Student Nurse - 06/02/2021 15:51 EDT Individualized Stroke Risk Factors *Q : Coronary artery disease, Hypertension/High blood pressure Chang Medrano, Custom Wood Stair Builder-Student Nurse - 06/02/2021 15:51 EDT Electronically signed by [facility] Conversion Cable Splicer Helper Cerner at 01/26/2023 9:10 PM CDT documented in this encounter Plan of Treatment Not on file documented as of this encounter Visit Diagnoses Not on filedocumented in this encounter
--- OUTSIDE RECORDS SUMMARY | 2025-07-04 12:20 | XMS_ITS | Encounter Summary ---
Author Organization [employer] ([place], [place], [place], [place]) Address [address] [place] [address] Care Team Providers Care Chemical Applicator Name Role Phone Unavailable Primary Care Provider Unavailabl e Encounter Details Date Type Department Care Team (Late st Contact Info) Description 08/04/2020 Transcribed Document [facility] [place] Family Medicine [address] [place] [address] ProviderPrasanth MD [address] [place] [address] Social History Tobacco Use Types [...]
--- OUTSIDE RECORDS SUMMARY | 2025-07-04 12:20 | XMS_ITS | Encounter Summary ---
Author Organization [employer] ([place], [place], [place], [place]) Address [address] [place] [address] Care Team Providers Care Mail Processing Equipment Mechanic Name Role Phone Unavailable Primary Care Provider Unavailabl e Encounter Details Date Type Department Care Team (Late st Contact Info) Description 06/03/2021 Transcribed Document [facility] [place] Family Medicine [facility] [place] [address] ProviderPrasanth MD [address] [place] [address] Social History Tobacco Use Types [...] Reason for Discharge : Other: Pt at [facility]. Discharged to, Therapy : Other: Pt staying [...]
--- OUTSIDE RECORDS SUMMARY | 2025-07-04 12:20 | XMS_ITS | Encounter Summary ---
Author Organization [employer] ([place], [place], [place], [place]) Address [address] [place] [address] Care Team Providers Care Junior Software Developer Name Role Phone Unavailable Primary Care Provider Unavailabl e Encounter Details Date Type Department Care Team (Late st Contact Info) Description 06/04/2021 Transcribed Document [facility] [place] Family Medicine [address] [place] [address] ProviderPrasanth MD [address] [place] [address] Social History Tobacco Use Types [...]
--- OUTSIDE RECORDS SUMMARY | 2025-07-04 12:20 | XMS_ITS | Encounter Summary ---
Author Organization [employer] ([place], [place], [place], [place]) Address [address] [place] [address] Care Team Providers Care Trading Specialist Name Role Phone Unavailable Primary Care Provider Unavailabl e Encounter Details Date Type Department Care Team (Late st Contact Info) Description 08/06/2020 Transcribed Document [facility] [place] [address] [place] [address] ProviderPrasanth MD [address] [place] [address] Social History Tobacco Use Types [...] Insurance 1 Health Plan: MEDICARE Policy Number: [id number] Authorization Number: Insurance Primary Name : MEDICARE Policy Number: [id number] Historical Authorization Comments-Primary : No Authorization Comments Found DIVINA HUGHSE Rn-Utilization Review - 08/06/2020 9:30 EDT documented in this encounter Plan of Treatment Not on file documented as of this encounter Visit Diagnoses Not on filedocumented in this encounter
--- OUTSIDE RECORDS SUMMARY | 2025-07-04 12:20 | XMS_ITS | Encounter Summary ---
Author Organization [employer] ([place], [place], [place], [place]) Address [address] [place] [address] Care Team Providers Care Brand Attendant Name Role Phone Unavailable Primary Care Provider Unavailabl e Encounter Details Date Type Department Care Team (Late st Contact Info) Description 06/03/2021 Transcribed Document [facility] [place] Family Medicine [address] [place] [address] ProviderPrasanth MD [address] [place] [address] Social History Tobacco Use Types [...]
--- OUTSIDE RECORDS SUMMARY | 2025-07-04 12:20 | XMS_ITS | Encounter Summary ---
Author Organization [employer] ([place], [place], [place], [place]) Address [address] [place] [address] Care Team Providers Care Certified Forklift Operator Name Role Phone Unavailable Primary Care Provider Unavailabl e Encounter Details Date Type Department Care Team (Late st Contact Info) Description 10/26/2019 Transcribed Document [facility] [place] Family Medicine [address] [place] [address] ProviderPrasanth MD [address] [place] [address] Social History Tobacco Use Types Packs/Day Years Used Date Smoking Tobacco: Never Assessed Sex and Gender Information Value Date Recorded Sex Assigned at Not on file Legal Sex Male 6:49 PM CDT Gender Identity Not on file Sexual Orientation Not on file documented as of this encounter Miscellaneous Notes * Cerner Conversion Note - Historical ProviderMD - 10/26/2019 4:21 PM QUANTITATIVE ANALYST MARKETING Education-General Entered On: 10/30/2019 4:52 EST Performed On: 10/26/2019 16:21 EST by Rimma Blackmon RN Teaching/Learning Assessment Barriers To Learning : None evident Individuals Taught : Patient, Family member Learning Style Preferences Patient : None Rimma Blackmon RN - 10/30/2019 4:52 EST Electronically signed by Carla Shelton Conversion Senior Microstrategy Developer Cerner at 01/26/2023 8:49 PM CDT documented in this encounter Plan of Treatment Not on file documented as of this encounter Visit Diagnoses Not on filedocumented in this encounter
--- OUTSIDE RECORDS SUMMARY | 2025-07-04 12:20 | XMS_ITS | Encounter Summary ---
Author Organization [employer] ([place], [place], [place], [place]) Address [address] [place] [address] Care Team Providers Care French Binder Name Role Phone Unavailable Primary Care Provider Unavailabl e Encounter Details Date Type Department Care Team (Late st Contact Info) Description 08/04/2020 Transcribed Document [facility] [place] Family Medicine [address] [place] [address] ProviderPrasanth MD [address] [place] [address] Social History Tobacco Use Types [...]
--- OUTSIDE RECORDS SUMMARY | 2025-07-04 12:21 | XMS_ITS | Encounter Summary ---
Author Organization [employer] ([place], [place], [place], [place]) Address [address] [place] [address] Care Team Providers Care Java Technical Architect Name Role Phone Unavailable Primary Care Provider Unavailabl e Encounter Details Date Type Department Care Team (Late st Contact Info) Description 08/06/2020 Transcribed Document [facility] [place] Family Medicine [address] [place] [address] ProviderPrasanth MD [address] [place] [address] Social History Tobacco Use Types [...] nitroglycerin and presentation to outside ER at [facility] in [place]. Patient was subsequently transferred here for further [...] tablet 5 mg = 1 Tab, Oral, [id number] hydroCHLOROthiazide-lisinopril 12.5 mg-20 mg oral tablet 1 [...] Ratio 0.9 LOW 08/05/2020 19:33 Bun/Creatinine 22.5 CO 08/05/2020 19:33 Sodium Level 139 mmol/L 08/05/2020 09:53 Potassium Level 3.8 mmol/L 08/05/2020 09:53 Chloride Level 107 mmol/L 08/05/2020 09:53 Carbon Dioxide Level 30 mmol/L 08/05/2020 09:53 Anion Gap 6 LOW 08/05/2020 10:00 Alk Phos 62 Units/Liter 08/05/2020 09:53 ALT 25 Units/Liter 08/05/2020 09:53 AST 27 Units/Liter 08/05/2020 09:53 Blood Urea Nitrogen 27 mg/dL CO 08/05/2020 09:59 Glucose Level 106 mg/dL 08/05/2020 09:53 Albumin Level 3.2 Gram/dL LOW 08/05/2020 10:00 Bilirubin Total 0.5 mg/dL 08/05/2020 09:53 Calcium Level 8.6 mg/dL 08/05/2020 09:53 Coagulation Results (Current Encounter/Past 24 Hours) PT 37.0 Second(s) CO 08/06/2020 04:25 INR 3.5 CO 08/06/2020 04:25 Creatinine Clearance (Current Encounter/Past 24 Hours) Creatinine Level 1.20 mg/dL 08/05/2020 09:53 Bun/Creatinine 22.5 CO 08/05/2020 09:53 Estimated Creatinine Clearance 46.64 mL/Min [...] CR Chest 1 Vw Port; Neha Leung, Fondant Machine Operator 08/04/2020 12:54 EDT [2] [facility]; WINNIE AYALA MD-CAR 08/04/2020 13:14 EDT [3] Admission H & P; CJ AVITIA MD-INT 08/04/2020 15:01 EDT Electronically signed by Nikita [facility] Conversion Quality Control Checker Cerner at 01/26/2023 9:11 PM CDT documented in this encounter Plan of Treatment Not on file documented as of this encounter Visit Diagnoses Not on filedocumented in this encounter
--- OUTSIDE RECORDS SUMMARY | 2025-07-04 12:21 | XMS_ITS | Encounter Summary ---
Author Organization [employer] ([place], [place], [place], [place]) Address [address] [place] [address] Care Team Providers Care Catering Server Name Role Phone Unavailable Primary Care Provider Unavailabl e Encounter Details Date Type Department Care Team (Late st Contact Info) Description 11/07/2019 Transcribed Document [facility] [place] Family Medicine [address] [place] [address] ProviderPrasanth MD [address] [place] [address] Social History Tobacco Use Types Packs/Day Years Used Date Smoking Tobacco: Never Assessed Sex and Gender Information Value Date Recorded Sex Assigned at Not on file Legal Sex Male 6:49 PM CDT Gender Identity Not on file Sexual Orientation Not on file documented as of this encounter Miscellaneous Notes * Cerner Conversion Note - Prasanth ProviderMD - 11/07/2019 10:09 AM ENGINEERING TECHNOLOGY INSTRUCTOR Patient: SHIRA GARZA HORACIO Age: 84 years Sex: Male : 1935 Associated Diagnoses: None Author: CELESTINA RUIZ APRN [facility] CARDIOLOGY PROGRESS NOTE: DIAGNOSIS: 1. 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
--- OUTSIDE RECORDS SUMMARY | 2025-07-04 12:21 | XMS_ITS | Encounter Summary ---
Author Organization [employer] ([place], [place], [place], [place]) Address [address] [place] [address] Care Team Providers Care Electricity Trader Name Role Phone Unavailable Primary Care Provider Unavailabl e Encounter Details Date Type Department Care Team (Late st Contact Info) Description 09/26/2019 Transcribed Document [facility] Cardiology [address] [place] [address] Lee Ann Quinonez MD [address] [facility] [address] [place] [id number] Social History Tobacco Use Types Packs/Day Years [...] Normal strength, No deformity. Integumentary: Warm, Dry, [place], No rash. Neurologic: Alert, Oriented, No focal [...]
--- OUTSIDE RECORDS SUMMARY | 2025-07-04 12:21 | XMS_ITS | Encounter Summary ---
Author Organization [employer] ([place], [place], [place], [place]) Address [address] [place] [address] Care Team Providers Care Immunochemist Name Role Phone Unavailable Primary Care Provider Unavailabl e Encounter Details Date Type Department Care Team (Late st Contact Info) Description 08/06/2020 Transcribed Document [facility] [place] Family Medicine [address] [place] [address] ProviderPrasanth MD [address] [place] [address] Social History Tobacco Use Types [...] Sanchez MD - 08/06/2020 1:[address] [facility] [place] [address] SHIRA GARZA :1935 Visit Time:08/06/2020 Your [...] Comments f/y tavr with [facility] Where: [address] [facility] [address] [place] [address]- Business (1) Follow Up with LACIE ALVA When 08/21/2020 11:15 AM EST Comments 08/21 @ 11:15am Where: [address] [place] [address]- Business (1) Follow Up with KARON MCWILLIAMS When Within 1 week Comments f/u aov stenosis and troponin leak/chestpain Call for follow up appointment Where: [address] [facility] [place] [address] Business (1) Medications What How Much When Instructions Next Dose apixaban (Eliquis 5 mg oral tablet) 1 Tablet(s) Oral Interval Every 12 Hours START AM Pickup at [facility] isosorbide mononitrate (isosorbide mononitrate 20 mg oral tablet) 1 Tablet(s) Oral Two Times A Day Pickup at [facility] aspirin 81 Milligram(s) Every Day atorvastatin (atorvastatin 20 mg oral tablet) 1 Tablet(s) Oral Tuesday hydrochlorothiazide-lisinopril (hydroCHLOROthiazide-lisinopril 12.5 mg-20 mg oral tablet) 1 Tablet(s) Oral Every Day multivitamin 1 Tablet(s) Oral Every Day nitroglycerin (Nitrostat 0.4 mg sublingual tablet) 1 Tablet(s) SubLINgual Every 5 minutes as needed for as needed for chest pain Pharmacy Information [facility]: [address] [address] [phone] Take your medications faithfully. Do NOT skip [...] The two forms of aspirin are: ? Pyz-amjnitx-ghlcik.This type of aspirin does not have a coating and is absorbed quickly. This type of aspirin also comes in a chewable form. ? Enteric-coated. This type of aspirin has a coating that releases the medicine very slowly. Enteric-coated aspirin might cause less stomach upset than sgd-nncpivg-lwkane aspirin. This type of aspirin should not [...] Reviewed: 07/27/2018 Elsevier Patient Education ?? 2020 [employer]. Acute Coronary Syndrome Acute coronary syndrome (ACS) [...] a heart-healthy eating plan. Medicines ??? Take mylh-hvi-syqrgny and prescription medicines only as told by [...] Reviewed: 10/08/2019 Elsevier Patient Education ?? 2020 [employer]. Mitral Valve Replacement Mitral valve replacement [...] including vitamins, herbs, eye drops, creams, and gtje-gqo-kamqryt medicines. ??? Any problems you or family [...] tells you to take them. ? Taking cxsv-kzs-qerulbh medicines, vitamins, herbs, and supplements. Staying hydrated [...] Reviewed: 06/19/2019 Elsevier Patient Education ?? 2020 [employer] Inc. Venous Thromboembolism Prevention Venous thromboembolism (VTE) [...] for Disease Control and Prevention: www.cdc.gov ??? [place] Heart Association: www.heart.org Get help right away [...] Reviewed: 12/04/2019 Elsevier Patient Education ?? 2020 [employer] Emergency Awareness and Preventative Care STROKE [...] Assistance with quitting is available by contacting 3-864-XZJCNOW. This is a free resource providing counseling, [...] range between ( 0.0 and 7.0 ) Cole #: 0.56 K/uL -- Normal range between ( 0.16 and 1.00 ) Eos #: 0.05 x10(3)/uL -- Normal range between ( 0.00 and 0.80 ) Cole %: 10.1 % -- Normal range between [...] /LPF Urine Bilirubin Dipstick: Negative Urine Specific [place]: 1.023 -- Normal range between ( 1.005 [...] given the opportunity to ask questions. Patient/Senior Product Analyst Name: Patient/Senior Product Analyst Signature: Relationship to Patient: Clinician/Hospital Senior Product Analyst Signature: Date: documented in this encounter Plan of Treatment Not on file documented as of this encounter Visit Diagnoses Not on filedocumented in this encounter
--- OUTSIDE RECORDS SUMMARY | 2025-07-04 12:21 | XMS_ITS | Encounter Summary ---
Author Organization [employer] ([place], [place], [place], [place]) Address [address] [place] [address] Care Team Providers Care Stone Chimney Mason Name Role Phone Unavailable Primary Care Provider Unavailabl e Encounter Details Date Type Department Care Team (Late st Contact Info) Description 11/07/2019 Transcribed Document [facility] [place] Family Medicine [address] [place] [address] ProviderPrasanth MD [address] [place] [address] Social History Tobacco Use Types Packs/Day Years Used Date Smoking Tobacco: Never Assessed Sex and Gender Information Value Date Recorded Sex Assigned at Not on file Legal Sex Male 6:49 PM CDT Gender Identity Not on file Sexual Orientation Not on file documented as of this encounter Miscellaneous Notes * Cerner Conversion Note - Prasanth ProviderMD - 11/07/2019 2:30 PM SERVICING MANAGER On Going Discharge Planning Entered On: 11/07/2019 14:32 EST Performed On: 11/07/2019 14:30 EST by BINH SIDDIQI, RN-General Office DispatcherHorseradish Grinder Progress Note Discharge Arrangements : Patient Post-Acute Information Patient Name: SHIRA GARZA HORACIO Gender: Male : [birth year] Age: 84 Years No Post-Acute Placement(s) Listed No Post-Acute Service(s) Listed No Curaspan Referral(s) Listed Discharge Options Discussed with Patient : Home Health BINH SIDDIQI, RN-General Office Dispatcher - 11/07/2019 14:30 EST Narrative Progress Note [...] and assist w/needs as approp. ROSANA CALLEJAS, RN-General Office Dispatcher - 11/05/19 17:54:54 BINH SIDDIQI, RN-General Office Dispatcher - 11/07/2019 14:30 EST Electronically signed by Nikita [facility] Conversion Wafer Polishing Lead Worker Cerner at 01/26/2023 8:54 PM CDT documented in this encounter Plan of Treatment Not on file documented as of this encounter Visit Diagnoses Not on filedocumented in this encounter
--- OUTSIDE RECORDS SUMMARY | 2025-07-04 12:21 | XMS_ITS | Encounter Summary ---
Author Organization [employer] ([place], [place], [place], [place]) Address [address] [place] [address] Care Team Providers Care Store Warehouse Associate Name Role Phone Unavailable Primary Care Provider Unavailabl e Encounter Details Date Type Department Care Team (Late st Contact Info) Description 10/29/2019 Transcribed Document [facility] Cardiology [address] [place] [address] Jamshid Holman MD [address] [facility] [address] [place] [id number] Social History Tobacco Use Types Packs/Day Years [...] 2. Using a micropuncture access needle, a 4-Romanian sheath was inserted in the right common femoral artery. Angiography revealed appropriate sheath position and arterial size for a large sheath insertion. A 6-Romanian sheath was inserted. The 6-Romanian was exchanged for a single Perclose deployed in a pre-close technique and the sheath upsized to 8-Romanian. Of note, the first two Perclose catheters missed but a wire was inserted and a third Perclose took appropriately. A 6-Romanian sheath was inserted in the left femoral artery and a 6-Romanian sheath was inserted in the left femoral vein. Through the venous sheath, a 5-Romanian transvenous pacemaker was inserted and advanced to the right ventricular free wall. Pacing capture was confirmed. Through the 6-Romanian arterial sheath, a 5-Romanian pigtail catheter was inserted and advanced to the right coronary cusp. Supravalvular aortography was performed. 3. The 8-Romanian sheath was exchanged over a support wire for a 16-Romanian Mancia eSheath which was secured with suture. Heparin was administered to achieve a therapeutic ACT. 4. Through the Mancia sheath, a 6-Romanian AL1 diagnostic catheter and a straight-tipped 0.035 [...] pacing, the valve was deployed with prompt mosque of stable hemodynamics and rhythm. The delivery [...] Perclose was tightened with good hemostasis. A 6-Romanian arterial sheath was removed and a Mynx closure was deployed with good hemostasis. The venous sheath was removed and manual compression was held with good hemostasis. 7. The patient was transferred to the postanesthesia care unit in stable condition. 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 /[id number] MD LAKISHA Calixto/ASHLEY / LAKISHA / MODL /[id number] documented in this encounter Plan of Treatment Not on file documented as of this encounter Visit Diagnoses Not on filedocumented in this encounter
--- OUTSIDE RECORDS SUMMARY | 2025-07-04 12:21 | XMS_ITS | Encounter Summary ---
Author Organization [employer] ([place], [place], [place], [place]) Address [address] [place] [address] Care Team Providers Care Test Bore Helper Name Role Phone Unavailable Primary Care Provider Unavailabl e Encounter Details Date Type Department Care Team (Late st Contact Info) Description 06/04/2021 Transcribed Document [facility] [place] [facility] [place] [address] ProviderPrasanth MD [facility] [place] [address] Social History Tobacco Use Types [...] reliability. This morning he tried to call [facility] cardiology to report chest discomfort [...] tablet 5 mg = 1 Tab, Oral, [id number] hydroCHLOROthiazide-lisinopril 12.5 mg-20 mg oral tablet 1 [...] [1] CR Chest 2 Vws; Kezia Louise, Can Line Operator 06/02/2021 10:51 EDT [2] ECHO REPORT - [...] 06/03/2021 13:11 EDT Electronically signed by Nikita [facility] Conversion Tenderizer Tender Cerner at 01/26/2023 8:52 PM CDT documented in this encounter Plan of Treatment Not on file documented as of this encounter Visit Diagnoses Not on filedocumented in this encounter
--- OUTSIDE RECORDS SUMMARY | 2025-07-04 12:21 | XMS_ITS | Encounter Summary ---
Author Organization [employer] ([place], [place], [place], [place]) Address [address] [place] [address] Care Team Providers Care Reducing Salon Attendant Name Role Phone Unavailable Primary Care Provider Unavailabl e Encounter Details Date Type Department Care Team (Late st Contact Info) Description 11/07/2019 Transcribed Document [facility] [place] [address] [place] [address] ProviderPrasanth MD [address] [place] [address] Social History Tobacco Use Types Packs/Day Years Used Date Smoking Tobacco: Never Assessed Sex and Gender Information Value Date Recorded Sex Assigned at Not on file Legal Sex Male 6:49 PM CDT Gender Identity Not on file Sexual Orientation Not on file documented as of this encounter Miscellaneous Notes * Cerner Conversion Note - Historical ProviderMD - 11/07/2019 5:00 PM ALTERATION INSPECTOR Chart Check - Review Order Profile Entered On: 11/07/2019 17:33 EST Performed On: 11/07/2019 17:00 EST by MARIBELL MIMS RN Chart Check Powerplans Initiated/Discontinued as Appropriate : Yes MARIBELL MIMS RN - 11/07/2019 17:33 EST Electronically signed by Nikita [facility] Conversion Hydrography Teacher Devynner at 01/26/2023 8:59 PM CDT documented in this encounter Plan of Treatment Not on file documented as of this encounter Visit Diagnoses Not on filedocumented in this encounter
--- OUTSIDE RECORDS SUMMARY | 2025-07-04 12:21 | XMS_ITS | Encounter Summary ---
Author Organization [employer] ([place], [place], [place], [place]) Address [address] [place] [address] Care Team Providers Care Vendor Analyst Name Role Phone Unavailable Primary Care Provider Unavailabl e Encounter Details Date Type Department Care Team (Late st Contact Info) Description 11/07/2019 Transcribed Document [facility] [place] [address] [place] [address] ProviderPrasanth MD [address] [place] [address] Social History Tobacco Use Types Packs/Day Years Used Date Smoking Tobacco: Never Assessed Sex and Gender Information Value Date Recorded Sex Assigned at Not on file Legal Sex Male 6:49 PM CDT Gender Identity Not on file Sexual Orientation Not on file documented as of this encounter Miscellaneous Notes * Cerner Conversion Note - Historical ProviderMD - 11/07/2019 2:00 AM KIESELGUHR REGENERATOR OPERATOR Upholsterer Limousine And Hearse Details Entered On: 11/07/2019 0:40 EST Performed [...]
--- OUTSIDE RECORDS SUMMARY | 2025-07-04 12:21 | XMS_ITS | Encounter Summary ---
Author Organization [employer] ([place], [place], [place], [place]) Address [address] [place] [address] Care Team Providers Care Universal Grinder Set Up Operator Name Role Phone Unavailable Primary Care Provider Unavailabl e Encounter Details Date Type Department Care Team (Late st Contact Info) Description 11/07/2019 Transcribed Document [facility] Radiology [address] [place] [address] Abel Kapadia MD [address] [place] [address] [place] [address] Social History Tobacco Use Types Packs/Day Years [...] 11/08/2019 PRIMARY CARE PHYSICIAN: Dr. Marcelino Caldera, [facility]. REFERRING PHYSICIAN: Dr. Beckman, [facility] , 1935. CURRENT COMPLAINT: Falls, dizziness, irregular [...] At risk for sleep apnea / IMO [id number] / Confirmed Shortness of breath / SNOMED CT 024336924 / Confirmed Hypertension / SNOMED CT 79307768 / Confirmed Wears glasses / SNOMED CT 543498810 / Confirmed, Active Problems (11) Aortic stenosis [...] gallop, S1+ S2 No S3 or S4 [place].. Gastrointestinal: Soft, Non-tender, Non-distended, Normal bowel sounds. [...] (NOV 04) Radiology Results (Last 48 hours) [id number] -- 11/04/2019 21:19 CT Head WO (11/05/2019 [...]
--- OUTSIDE RECORDS SUMMARY | 2025-07-04 12:21 | XMS_ITS | Encounter Summary ---
Author Organization [employer] ([place], [place], [place], [place]) Address [address] [place] [address] Care Team Providers Care Cooker Operator Name Role Phone Unavailable Primary Care Provider Unavailabl e Encounter Details Date Type Department Care Team (Late st Contact Info) Description 12/30/2020 Transcribed Document [facility] [place] [address] [place] [address] ProviderPrasanth MD [address] [place] [address] Social History Tobacco Use Types [...] Sanchez MD - 12/30/2020 11:43 AM CDT [place] [address] ALEXANDREFei SHIRA HORACIO :1935 Visit [...] AM EDT Where: [address] [place] [address]- Medications What How Much When Instructions Next [...] diabetes medicines or blood thinners. ? Taking ryhu-saf-vufseid medicines, vitamins, herbs, and supplements. ? Taking [...] provider. Document Revised: 06/15/2019 Document Reviewed: 12/28/2017 [employer] Patient Education ?? 2020 [employer] Moderate Conscious Sedation, Adult, Care After [...] you are awake and alert. ??? Take upbx-vdn-jlfbtdr and prescription medicines only as told by [...] provider. Document Revised: 09/08/2018 Document Reviewed: 01/15/2017 [employer] Patient Education ?? 2020 [employer] FAQ ??? Patient COVID-19 testing Why [...] all positive cases are reported through the [facility] health department and the [place] Department for Public Health. Those organizations are [...] and need to call 911, notify the tape cutting machine operator that you have, or think you [...] clean your hands with an alcohol-based hand bilingual teacher that contains at least 60% alcohol. Clean your hands often. ??? Wash hands: Wash your hands often with soap and water for at least 20 seconds when visibly dirty. This is especially important after blowing your nose, coughing or sneezing, and going to the bathroom, and before eating or preparing food. ??? Hand bilingual teacher: Use an alcohol-based hand bilingual teacher with at least 60% alcohol, covering [...] and water or put them in the child care coordinator. Clean all high-touch surfaces every day. Clean [...] or body fluids on them. ??? Household financial health counselor and disinfectants: Clean the area or item [...] list of disinfectants can be found here: https://www.epa.gov/pesticide-registration/cawo-c-vpxyoacokkomw-nfz-yzoecvn-km rs-cov-2 Emergency Awareness and Preventative Care STROKE [...] Assistance with quitting is available by contacting 7-548-BGZT-NOW. This is a free resource providing counseling, [...] was given the opportunity to ask questions. Patient/Extractor Plant Operator Name: Patient/Extractor Plant Operator Signature: Relationship to Patient: Clinician/Hospital Extractor Plant Operator Signature: Date: documented in this encounter Plan of Treatment Not on file documented as of this encounter Visit Diagnoses Not on filedocumented in this encounter
--- OUTSIDE RECORDS SUMMARY | 2025-07-04 12:21 | XMS_ITS | Encounter Summary ---
Author Organization [employer] ([place], [place], [place], [place]) Address [address] [place] [address] Care Team Providers Care Methods And Procedures Analyst Name Role Phone Unavailable Primary Care Provider Unavailabl e Encounter Details Date Type Department Care Team (Late st Contact Info) Description 06/04/2021 Transcribed Document [facility] [place] [address] [place] [address] ProviderPrasanth MD [address] [place] [address] Social History Tobacco Use Types [...] these instructions at home: Medicines ??? Take fjtc-uxb-bsvovhp and prescription medicines only as told by [...] Reviewed: 01/07/2020 [employer] Patient Education ? 2019 [employer]. Coronary Artery Disease, Male Coronary artery [...] these instructions at home: Medicines ??? Take iixu-vrk-zwlbqyp and prescription medicines only as told by [...] Reviewed: 06/05/2019 [employer] Patient Education ? 2019 [employer]. Hematology Bleeding Precautions When on Anticoagulant [...] blood clot. Taking other medicines ??? Take pipm-ssi-tyfuteh and prescriptions medicines only as told by your health care provider. ??? Do not take guuy-ijl-pifbzny NSAIDs, including aspirin and ibuprofen, while you [...] use toothpicks. ??? Use a soft-bristled toothbrush. [place] your teeth gently. ??? Always wear shoes [...] you: ??? Work with a diet and child nutrition director (dietitian) to make an eating plan. Do [...] provider. Document Revised: 01/16/2020 Document Reviewed: 12/13/2017 [employer] Patient Education ? 2019 [employer]. Neurology Transient Ischemic Attack A transient [...] these instructions at home: Medicines ??? Take ghwx-oec-gpmmnwy and prescription medicines only as told by [...] provider. Document Revised: 06/22/2019 Document Reviewed: 12/28/2017 [employer] Patient Education ? 2020 [employer]. Preventive Health Venous Thromboembolism Prevention Venous thromboembolism [...] for Disease Control and Prevention: www.cdc.gov ??? [place] Heart Association: www.heart.org Get help right away [...] provider. Document Revised: 01/15/2020 Document Reviewed: 12/04/2019 [employer] Patient Education ? 2020 [employer]. documented in this encounter Plan of Treatment Not on file documented as of this encounter Visit Diagnoses Not on filedocumented in this encounter
--- OUTSIDE RECORDS SUMMARY | 2025-07-04 12:21 | XMS_ITS | Encounter Summary ---
Author Organization [employer] ([place], [place], [place], [place]) Address [address] [place] [address] Care Team Providers Care Revenue Stamp Cutter Name Role Phone Unavailable Primary Care Provider Unavailabl e Encounter Details Date Type Department Care Team (Late st Contact Info) Description 12/30/2020 Transcribed Document [facility] [place] [address] [place] [address] ProviderPrasanth MD [address] [place] [address] Social History Tobacco Use Types [...]
--- OUTSIDE RECORDS SUMMARY | 2025-07-04 12:21 | XMS_ITS | Encounter Summary ---
Author Organization [employer] ([place], [place], [place], [place]) Address [address] [place] [address] Care Team Providers Care Mail Sorting Supervisor Name Role Phone Unavailable Primary Care Provider Unavailabl e Encounter Details Date Type Department Care Team (Late st Contact Info) Description 06/04/2021 Transcribed Document [facility] [place] [address] [place] [address] ProviderPrasanth MD [address] [place] [address] Social History Tobacco Use [...] On: 06/04/2021 9:00 EDT by Chang Medrano, Help Desk Engineer-Student Nurse NIH Stroke Scale *Q NIH Assessment [...] NIH Scale Score : 0 Chang Medrano, Help Desk Engineer-Student Nurse - 06/04/2021 8:19 EDT Electronically signed by Nikita [facility] Conversion Curtain Mender Cerner at 01/26/2023 9:01 PM CDT documented in this encounter Plan of Treatment Not on file documented as of this encounter Visit Diagnoses Not on filedocumented in this encounter
--- OUTSIDE RECORDS SUMMARY | 2025-07-04 12:21 | XMS_ITS | Encounter Summary ---
Author Organization [employer] ([place], [place], [place], [place]) Address [address] [place] [address] Care Team Providers Care Waste Water Worker Name Role Phone Unavailable Primary Care Provider Unavailabl e Encounter Details Date Type Department Care Team (Late st Contact Info) Description 09/26/2019 Transcribed Document [facility] [place] [address] [place] [address] ProviderPrasanth MD [address] [place], [place] [id number] Social History Tobacco Use Types Packs/Day Years Used Date Smoking Tobacco: Never Assessed Sex and Gender Information Value Date Recorded Sex Assigned at Not on file Legal Sex Male 6:49 PM CDT Gender Identity Not on file Sexual Orientation Not on file documented as of this encounter Miscellaneous Notes * Cerner Conversion Note - Historical ProviderMD - 09/26/2019 10:31 AM BRIDGE RIGGER UM Authorization Entered On: 09/26/2019 10:31 EST Performed On: 09/26/2019 10:31 EST by DIVINA HUGHES Rn-Utilization Review Primary Insurance Authorization Authorization and Policy Numbers : Insurance 1 Health Plan: MEDICARE Policy Number: [id number] Authorization Number: NOT REQUIRED Insurance 2 Health Plan: AARP N Policy Number: [id number] Authorization Number: NOT REQUIRED Insurance Primary Name : MEDICARE Policy Number: [id number] AARP N Policy Number: [id number] Historical Authorization Comments-Primary : No Authorization Comments Found DIVINA HUGHES Rn-Utilization Review - 09/26/2019 10:31 EST Electronically signed by Nikita [facility] Conversion Personnel Specialist Cerner at 01/26/2023 9:09 PM CDT documented in this encounter Plan of Treatment Not on file documented as of this encounter Visit Diagnoses Not on filedocumented in this encounter
--- OUTSIDE RECORDS SUMMARY | 2025-07-04 12:21 | XMS_ITS | Encounter Summary ---
Author Organization [employer] ([place], [place], [place], [place]) Address [address] [place] [address] Care Team Providers Care Fast Food Assistant Restaurant Manager Name Role Phone Unavailable Primary Care Provider Unavailabl e Encounter Details Date Type Department Care Team (Late st Contact Info) Description 11/07/2019 Transcribed Document [facility] [place] [address] [place] [address] ProviderPrasanth MD [address] [place] [address] Social History Tobacco Use Types Packs/Day Years Used Date Smoking Tobacco: Never Assessed Sex and Gender Information Value Date Recorded Sex Assigned at Not on file Legal Sex Male 6:49 PM CDT Gender Identity Not on file Sexual Orientation Not on file documented as of this encounter Miscellaneous Notes * Cerner Conversion Note - Historical ProviderMD - 11/07/2019 5:00 AM PODIATRIC ASSISTANT Chart Check - Review Order Profile Entered On: 11/07/2019 3:19 EST Performed On: 11/07/2019 5:00 EST by DESMOND CRUZ RN Chart Check Powerplans Initiated/Discontinued as Appropriate : Yes All Active Orders Reviewed : Yes DESMOND CRUZ RN - 11/07/2019 3:19 EST Electronically signed by Nikita [facility] Conversion Field Horticultural Specialty Grower Cerner at 01/26/2023 9:09 PM CDT documented in this encounter Plan of Treatment Not on file documented as of this encounter Visit Diagnoses Not on filedocumented in this encounter
--- OUTSIDE RECORDS SUMMARY | 2025-07-04 12:21 | XMS_ITS | Encounter Summary ---
Author Organization [employer] ([place], [place], [place], [place]) Address [address] [place] [address] Care Team Providers Care Trial Mgr Name Role Phone Unavailable Primary Care Provider Unavailabl e Encounter Details Date Type Department Care Team (Late st Contact Info) Description 10/29/[address] [facility] [place] [address] [place] [address] ProviderPrasanth MD [address] [place], [place] [...] Prasanth Sanchez MD - 10/29/2019 10:20 AM RESTAURANT LINE COOK DATE OF PROCEDURE: 10/29/2019 SURGEON: Michael Fontana [...] that, we were able to place a 6-Greek sheath into the right common femoral artery. Angiography revealed an appropriate sheath size and position for a large sheath insertion. A guidewire was then placed into the right common femoral artery and a 6-Greek sheath was then subsequently removed. A single Perclose was then deployed in a pre-close fashion and the sheath was then up sized to an 8-Greek. A 6-Greek sheath was then also inserted into the left common femoral vein and another 6-Greek sheath was placed in the left common femoral artery. A 5-Greek transvenous pacemaker was inserted through the venous sheath and was advanced under fluoroscopic guidance to the right ventricular free wall. Pacing capture was confirmed. A 5-Greek pigtail catheter was then advanced through the left common femoral arterial sheath and was positioned in the right coronary cusp. Supravalvular aortography was then performed. Coplanar view was confirmed. Amplatz Extra Stiff wire was then placed into the 8-Greek right femoral arterial sheath and was advanced. The 8-Greek right femoral arterial sheath was then removed, and after dilatation of the tissue tract, a 16-Greek Mancia eSheath was inserted without difficulty. This sheath was then secured to the skin using silk suture. Heparin was then also administered to achieve a therapeutic ACT. Over the Amplatz Extra Stiff wire, a 6-Greek AL1 diagnostic catheter was advanced and a [...] wire and the Perclose was tightened. The 6-Greek sheath from the left common femoral artery [...] to the recovery room in stable condition. /[id number] MD DARREN Caro/ASHLEY / HRM / MODL /[id number] CC: MD Jason Caro MD Ryan Waddles, MD Electronically signed by [facility] Conversion Dat Instructor Cerner at 01/26/2023 8:51 PM CDT documented in this encounter Plan of Treatment Not on file documented as of this encounter Visit Diagnoses Not on filedocumented in this encounter
--- OUTSIDE RECORDS SUMMARY | 2025-07-04 12:21 | XMS_ITS | Encounter Summary ---
Author Organization [employer] ([place], [place], [place], [place]) Address [address] [place] [address] Care Team Providers Care Nursery Helper Name Role Phone Unavailable Primary Care Provider Unavailabl e Encounter Details Date Type Department Care Team (Late st Contact Info) Description 06/04/2021 Transcribed Document [facility] [place] [address] [place] [address] ProviderPrasanth MD [address] [place] [address] Social History Tobacco Use Types [...] On: 06/04/2021 15:42 EDT by Chang Medrano, It Application Support Analyst-Student Nurse Discharge Documentation Discharge Date/Time : 06/04/2021 [...] Discharge, Comment : [facility] to recieve a months worth of free samples of Eliquis to take since the patient had said he would not pay for Eliquis due to the smith. He galindo use the free samples until he se Dr. Layne on 06/09 and discusses with him whether or not to continue the Eliquis. Chang Medrano, It Application Support Analyst-Student Nurse - 06/04/2021 15:42 EDT Electronically signed by Carla Shelton Conversion Marine Service Station Attendant Cerner at 01/26/2023 8:54 PM CDT documented in this encounter Plan of Treatment Not on file documented as of this encounter Visit Diagnoses Not on filedocumented in this encounter
--- OUTSIDE RECORDS SUMMARY | 2025-07-04 12:21 | XMS_ITS | Encounter Summary ---
Author Organization [employer] ([place], [place], [place], [place]) Address [address] [place] [address] Care Team Providers Care National Accounts Recruiter Name Role Phone Unavailable Primary Care Provider Unavailabl e Encounter Details Date Type Department Care Team (Late st Contact Info) Description 06/04/2021 Transcribed Document [facility] [place] [address] [place] [address] ProviderPrasanth MD [address] [place] [address] Social History Tobacco Use Types [...] 06/04/2021 6:59 EDT Electronically signed by Nikita [facility] Conversion Double Spindle Shaper Operator Cerner at 01/26/2023 8:53 PM CDT documented in this encounter Plan of Treatment Not on file documented as of this encounter Visit Diagnoses Not on filedocumented in this encounter
--- OUTSIDE RECORDS SUMMARY | 2025-07-04 12:21 | XMS_ITS | Encounter Summary ---
Author Organization [employer] ([place], [place], [place], [place]) Address [address] [place] [address] Care Team Providers Care Machine Ii Coremaker Name Role Phone Unavailable Primary Care Provider Unavailabl e Encounter Details Date Type Department Care Team (Late st Contact Info) Description 11/07/2019 Transcribed Document [facility] [place] [address] [place] [address] ProviderPrasanth MD [address] [place] [address] Social History Tobacco Use Types Packs/Day Years Used Date Smoking Tobacco: Never Assessed Sex and Gender Information Value Date Recorded Sex Assigned at Not on file Legal Sex Male 6:49 PM CDT Gender Identity Not on file Sexual Orientation Not on file documented as of this encounter Miscellaneous Notes * Cerner Conversion Note - Historical ProviderMD - 11/07/2019 3:18 AM C 40A CREW CHIEF Height and Weight, Routine Entered On: 11/07/2019 3:18 EST Performed On: 11/07/2019 3:18 EST by Sal Hurt, Table Games Floor SupervisorHealth Unit Coord Height and Weight, Routine Routine Weight Source : Bed scale Routine Weight Entry Format : Metric Routine Weight, Kilograms : 89.7 kg(Converted to: 197 lb 12 oz) Routine Weight Calculation : 89.7 kg Height Source : Stated Height Entry Format : [place] Height, Feet : 5 ft Height, Inches : 9 Inch Clinical Height : 175.26 cm Body Surface Area (BSA), Routine : 2.06 m2 Body Mass Index (BMI), Routine : 29.2 kg/m2 Sal Hurt, Table Games Floor Supervisor-Health Unit Coord - 11/07/2019 3:18 EST Electronically signed by Nikita [facility] Conversion Nursing Program Coordinator Cerner at 01/26/2023 9:10 PM CDT documented in this encounter Plan of Treatment Not on file documented as of this encounter Visit Diagnoses Not on filedocumented in this encounter
--- OUTSIDE RECORDS SUMMARY | 2025-07-04 12:21 | XMS_ITS | Encounter Summary ---
Author Organization [employer] ([place], [place], [place], [place]) Address [address] [place] [address] Care Team Providers Care Manager State Name Role Phone Unavailable Primary Care Provider Unavailabl e Encounter Details Date Type Department Care Team (Late st Contact Info) Description 06/04/2021 Transcribed Document [facility] [place] [address] [place] [address] ProviderPrasanth MD [address] [place] [address] Social History Tobacco Use Types [...]
--- OUTSIDE RECORDS SUMMARY | 2025-07-04 12:21 | XMS_ITS | Encounter Summary ---
Author Organization [employer] ([place], [place], [place], [place]) Address [address] [place] [address] Care Team Providers Care Chief Service Dispatcher Name Role Phone Unavailable Primary Care Provider Unavailabl e Encounter Details Date Type Department Care Team (Late st Contact Info) Description 08/06/2020 Transcribed Document [facility] [place] [address] [place] [address] ProviderPrasanth MD [address] [place] [address] Social History Tobacco Use Types [...]
--- OUTSIDE RECORDS SUMMARY | 2025-07-04 12:21 | XMS_ITS | Encounter Summary ---
Author Organization [employer] ([place], [place], [place], [place]) Address [address] [place] [address] Care Team Providers Care Hand Stripper Name Role Phone Unavailable Primary Care Provider Unavailabl e Encounter Details Date Type Department Care Team (Late st Contact Info) Description 06/04/2021 Transcribed Document [facility] [place] [address] [place] [address] ProviderPrasanth MD [address] [place] [address] Social History Tobacco Use Types [...] Sanchez MD - 06/04/2021 11:25 AM CDT [facility] [place] [address] KAYLA SHIRA HORACIO :1935 Visit Time:06/02/2021 [...] discharge instructions with you Where: [address] [place] [address]- Follow Up with ABEBA HOOKS When 06/08/2021 03:15 PM EDT Comments Appointment has been made Where: [address] [place] [address]- Business (1) Medications What How Much When Instructions Next Dose apixaban (Eliquis 5 mg oral tablet) 1 Tablet(s) Oral Interval Every 12 Hours Pickup at [facility] this evening aspirin (aspirin 81 mg oral tablet, chewable) 1 Tablet(s) Oral Every Day Pickup at [facility] tomorrow atorvastatin (Lipitor 20 mg oral tablet) 1 Tablet(s) Oral At Bedtime Duration: 30 Day(s) Please Note: Your Lipitor dose has changed to 20 mg oral at bedtime Pickup at [facility] [place] at bedtime metoprolol (Metoprolol Succinate ER 25 mg oral tablet, extended release) 1 Tablet(s) Oral Every Day tomorrow hydrochlorothiazide-lisinopril (hydroCHLOROthiazide-lisinopril 12.5 mg-20 mg oral tablet) 1 Tablet(s) Oral Every Day tomorrow multivitamin 1 Tablet(s) Oral Every Day tomorrow Pharmacy Information [facility] [place]: [address] [facility] [address] [place], [place] [id number] [phone] Take your medications faithfully. Do NOT skip [...] blood clot. Taking other medicines ??? Take zvyu-nsl-nfnxpfw and prescriptions medicines only as told by your health care provider. ??? Do not take hutv-dlt-dycutyo NSAIDs, including aspirin and ibuprofen, while you [...] use toothpicks. ??? Use a soft-bristled toothbrush. [place] your teeth gently. ??? Always wear shoes [...] you: ??? Work with a diet and pet nutrition specialist (dietitian) to make an eating plan. [...] provider. Document Revised: 01/16/2020 Document Reviewed: 12/13/2017 [employer] Patient Education ?? 2020 [employer] Transient Ischemic Attack A transient ischemic [...] these instructions at home: Medicines ??? Take aonv-unk-ipotxbg and prescription medicines only as told by [...] provider. Document Revised: 06/22/2019 Document Reviewed: 12/28/2017 [employer] Patient Education ?? 2020 [employer] Heart Attack A heart attack occurs when blood and oxygen supply to the heart is cut off. A heart attack causes damage to the heart that cannot be fixed. A heart attack is also called a myocardial infarction, or TN. If you think you are having a [...] these instructions at home: Medicines ??? Take tpmz-hyc-dteijor and prescription medicines only as told by [...] provider. Document Revised: 01/07/2020 Document Reviewed: 01/07/2020 [email or web address] Patient Education ?? 2020 [employer] Coronary Artery Disease, Male Coronary artery disease (CAD) is a condition in which the arteries that lead to the heart (coronary arteries) become narrow or blocked. The narrowing or blockage can lead to decreased blood flow to the heart. Prolonged reduced blood flow can cause a heart attack (myocardial infarction or TN). This condition may also be called coronary [...] these instructions at home: Medicines ??? Take edbq-euo-kwxugny and prescription medicines only as told by [...] provider. Document Revised: 06/15/2019 Document Reviewed: 06/05/2019 [email or web address] Patient Education ?? 2020 [employer] Venous Thromboembolism Prevention Venous thromboembolism (VTE) is [...] for Disease Control and Prevention: www.cdc.gov ??? [place] Heart Association: www.heart.org Get help right away [...] provider. Document Revised: 01/15/2020 Document Reviewed: 12/04/2019 [employer] Patient Education ?? 2020 [employer] aspirin (oral) ( pir in) Arthritis Pain, Aspi-Cor, Aspir-Low, [place] Plus, Durlaza, Ecotrin, Miniprin, Vazalore What is the most important information I should know about aspirin? Aspirin can cause Ladan's syndrome, a serious and sometimes fatal condition in children. What is aspirin? Aspirin is a salicylate (eg-DYZ-wp-ate) that is used to treat pain, and [...] may report side effects to FDA at 3-009-EYS-8537. What other drugs will affect aspirin? Ask [...] drugs may affect aspirin, including prescription and sddc-jqt-hptqvbv medicines, vitamins, and herbal products. Not all [...] to ensure that the information provided by [employer]. ('Multum') is accurate, up-to-date, and complete, but no guarantee is made to that effect. Drug information contained herein may be time sensitive. [employer] information has been compiled for use by healthcare practitioners and consumers in the [place] and therefore [employer] does not warrant that uses outside of the [place] are appropriate, unless specifically indicated otherwise. iClinicals drug information does not endorse drugs, diagnose patients or recommend therapy. iClinicals drug information is an informational resource designed [...] effective or appropriate for any given patient. [employer] does not assume any responsibility for any aspect of healthcare administered with the aid of information [facility] provides. The information contained herein is not intended to cover all possible uses, directions, precautions, warnings, drug interactions, allergic reactions, or adverse effects. If you have questions about the drugs you are taking, check with your doctor, nurse or pharmacist. Copyright 2786-4583 [employer]. Version: 16.03. Revision Date: 04/06/2021. atorvastatin (a [...] may report side effects to FDA at 5-663-MFI-7437. What other drugs will affect atorvastatin? Certain [...] may affect atorvastatin. This includes prescription and uaru-ava-xaazfxq medicines, vitamins, and herbal products. Not all [...] to ensure that the information provided by [employer]. ('[employer]um') is accurate, up-to-date, and complete, but no guarantee is made to that effect. Drug information contained herein may be time sensitive. [employer] information has been compiled for use by healthcare practitioners and consumers in the [place] and therefore [employer] does not warrant that uses outside of the [place] are appropriate, unless specifically indicated otherwise. [employer]'s drug information does not endorse drugs, diagnose patients or recommend therapy. iClinicals drug information is an informational resource designed [...] effective or appropriate for any given patient. [facility] does not assume any responsibility for any aspect of healthcare administered with the aid of information [facility] provides. The information contained herein is not intended to cover all possible uses, directions, precautions, warnings, drug interactions, allergic reactions, or adverse effects. If you have questions about the drugs you are taking, check with your doctor, nurse or pharmacist. Copyright 8298-3727 [facility]GetH[facility].comQuizrr. Version: 22.02. Revision Date: 11/18/2020. apixaban (a PIX a ban) Merissa What is the most important information I should know about apixaban? Apixaban increases your risk of severe or fatal bleeding, especially if you take certain medicines at the same time (including some qynu-coe-qmlyego medicines). It is very important to tell [...]
--- OUTSIDE RECORDS SUMMARY | 2025-07-04 12:21 | XMS_ITS | Encounter Summary ---
Author Organization [employer] ([place], [place], [place], [place]) Address [address] [place] [address] Care Team Providers Care Drop Hammer Set Up Operator Name Role Phone Unavailable Primary Care Provider Unavailabl e Encounter Details Date Type Department Care Team (Late st Contact Info) Description 10/29/2019 Transcribed Document [facility] [place] [address] [place] [address] ProviderPrasanth MD [address] [place] [address] Social History Tobacco Use Types Packs/Day Years Used Date Smoking Tobacco: Never Assessed Sex and Gender Information Value Date Recorded Sex Assigned at Not on file Legal Sex Male 6:49 PM CDT Gender Identity Not on file Sexual Orientation Not on file documented as of this encounter Miscellaneous Notes * Cerner Conversion Note - Prasanth ProviderMD - 10/29/2019 7:03 AM SUBGRADE ROLLER OPERATOR Admission History, Adult Entered On: 10/29/2019 12:13 [...] Ambulatory Legal Guardian : No Support Person/Patient Ship Ceiler : Yes Support Person/Pt Rep Name : Rosa Elena Cormier- spouse Support Person/Pt Rep Contact Information : [phone] home Want Family/Rep/Phys Notified of Admit : No Emergency Contact #1 : Rosa Elena Cormier Emergency Contact #1 Emergency Contact #1 Relationship : Emergency Contact #2 : na Emergency Contact #2 Phone Number : na Emergency Contact #2 Relationship : na Information Obtained From : Patient Primary Language : Burkinan Preferred Communication Mode : Verbal Communication Barrier [...] Scale Risk Level : 0-24 Low Risk [place] Fall Interventions : Adequate lighting, Assistive devices [...] Source : Measured Height Entry Format : [place] Height, Feet : 5 ft(Converted to: 152 cm, 60 Inch) Height, Inches : 9 Inch(Converted to: 0 ft 9 Inch, 22.86 cm) Clinical Height : 175.26 cm Weight Source : Standing scale Weight Entry Format : [place] Clinical Dosing Weight : 92.5 kg Weight, Pounds : 203 lb Weight, Ounces : 8 oz Body Surface Area (BSA) : 2.08 m2 Body Mass Index : 30.1 kg/m2 (HI) [place] Body Weight : 70 kg Rosalee Barrios [...] Rosalee Barrios RN - 10/29/2019 12:03 EST [place] Suicide Severity Rating Scale (C-SSRS) CSSRS Past [...] - 10/29/2019 12:03 EST Electronically signed by Carla Shelton Conversion Reinforcing Iron Worker Helper Cerner at 01/26/2023 8:53 PM CDT documented in this encounter Plan of Treatment Not on file documented as of this encounter Visit Diagnoses Not on filedocumented in this encounter
--- OUTSIDE RECORDS SUMMARY | 2025-07-04 12:21 | XMS_ITS | Encounter Summary ---
Author Organization [employer] ([place], [place], [place], [place]) Address [address] [place] [address] Care Team Providers Care Technical Agronomist Name Role Phone Unavailable Primary Care Provider Unavailabl e Encounter Details Date Type Department Care Team (Late st Contact Info) Description 10/29/2019 Transcribed Document [facility] [place] [address] [place] [address] ProviderPrasanth MD [address] [place] [address] Social History Tobacco Use Types Packs/Day Years Used Date Smoking Tobacco: Never Assessed Sex and Gender Information Value Date Recorded Sex Assigned at Not on file Legal Sex Male 6:49 PM CDT Gender Identity Not on file Sexual Orientation Not on file documented as of this encounter Miscellaneous Notes * Cerner Conversion Note - Historical ProviderMD - 10/29/2019 9:12 AM MOLDER Education-Diabetes Topics Entered On: 10/30/2019 4:51 EST [...]
--- OUTSIDE RECORDS SUMMARY | 2025-07-04 12:21 | XMS_ITS | Encounter Summary ---
Author Organization [employer] ([place], [place], [place], [place]) Address [address] [place] [address] Care Team Providers Care Spool Hauler Name Role Phone Unavailable Primary Care Provider Unavailabl e Encounter Details Date Type Department Care Team (Late st Contact Info) Description 11/07/2019 Transcribed Document [facility] Radiology [address] [place] [address] Abel Kapadia MD [address] [place] [address] [place] [address] Social History Tobacco Use Types Packs/Day Years [...] 11/08/2019 PRIMARY CARE PHYSICIAN: Dr. Marcelino Caldera, [facility]. REFERRING PHYSICIAN: Dr. Beckman, [facility] , 1935. CURRENT COMPLAINT: Falls, dizziness, irregular heartbeat. HISTORY OF PRESENT ILLNESS: Shira Garza is an 84-year-old man, , living in the [facility], who recently underwent a transcatheter aortic [...] At risk for sleep apnea / IMO 32164303 / Confirmed Shortness of breath / SNOMED CT 645963072 / Confirmed Hypertension / SNOMED CT 01764503 / Confirmed Wears glasses / SNOMED CT 515296840 / Confirmed, Active Problems (11) Aortic stenosis [...] gallop, S1+ S2 No S3 or S4 [place].. Gastrointestinal: Soft, Non-tender, Non-distended, Normal bowel sounds. [...] (NOV 04) Radiology Results (Last 48 hours) [id number] -- 11/04/2019 21:19 CT Head WO (11/05/2019 [...]
--- OUTSIDE RECORDS SUMMARY | 2025-07-04 12:21 | XMS_ITS | Encounter Summary ---
Author Organization [employer] ([place], [place], [place], [place]) Address [address] [place] [address] Care Team Providers Care Manager Simulation Name Role Phone Unavailable Primary Care Provider Unavailabl e Encounter Details Date Type Department Care Team (Late st Contact Info) Description 12/30/2020 Transcribed Document [facility] [place] [facility] [place] [address] ProviderPrasanth MD [address] [place] [address] Social History Tobacco Use Types [...] Source : Stated Height Entry Format : [place] Height, Feet : 5 ft(Converted to: 152 cm, 60 Inch) Height, Inches : 9 Inch(Converted to: 0 ft 9 Inch, 22.86 cm) Clinical Height : 175.26 cm Weight Source : Standing scale Weight Entry Format : [place] Clinical Dosing Weight : 88.64 kg Weight, Pounds : 195 lb Body Surface Area (BSA) : 2.05 m2 Body Mass Index : 28.9 kg/m2 (HI) [place] Body Weight : 70 kg Mini Abreu [...] Mini Abreu RN - 12/30/2020 8:05 EDT [place] Suicide Severity Rating Scale (C-SSRS) CSSRS Past [...] Spouse Legal Guardian : No Support Person/Patient 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 : Yes Support Person/Pt Rep Name : Rosa Elena Bustamante- spouse Support Person/Pt Rep Contact Information : [phone] home Want Family/Rep/Phys Notified of Admit : No Emergency Contact #1 : NA Emergency Contact #1 Phone Number : NA Emergency Contact #1 Relationship : NA Emergency Contact #2 : NA Emergency Contact #2 Phone Number : NA Emergency Contact #2 Relationship : NA Information Obtained From : Patient Primary Language : Uzbek Preferred Communication Mode : Verbal Communication Barrier : None Receiving Clerk Needed : No Mini Abreu RN - [...] Friction and Shear : No apparent problem Ivshnu Score : 23 Mini Abreu RN - [...] Scale Risk Level : 0-24 Low Risk [place] Fall Interventions : Adequate lighting, Bed in [...]
--- OUTSIDE RECORDS SUMMARY | 2025-07-04 12:21 | XMS_ITS | Encounter Summary ---
Author Organization [employer] ([place], [place], [place], [place]) Address [address] [place] [address] Care Team Providers Care Service Correspondent Name Role Phone Unavailable Primary Care Provider Unavailabl e Encounter Details Date Type Department Care Team (Late st Contact Info) Description 10/29/2019 Transcribed Document [facility] [place] [address] [place] [address] ProviderPrasanth MD [address] [place] [address] Social History Tobacco Use Types Packs/Day Years Used Date Smoking Tobacco: Never Assessed Sex and Gender Information Value Date Recorded Sex Assigned at Not on file Legal Sex Male 6:49 PM CDT Gender Identity Not on file Sexual Orientation Not on file documented as of this encounter Miscellaneous Notes * Cerner Conversion Note - Prasanth ProviderMD - 10/29/2019 8:11 AM POULTRY SLAUGHTERER [facility] Main OR PACU Summary Primary Physician: MARK HAIRSTON MD-CAT Finalized Date/Time: 10/29/19 11:47:09 Pt. Name: SHIRA GARZA HORACIO /Sex: 1935 Male Med Rec #: [id number] Physician: MARK HAIRSTON MD-CAT Financial #: [id number] Pt. Type: I Room/Bed: [facility]/1 Admit/Disch: 10/29/19 07:03:00 - Institution: [facility] Main OR PACU I Case Times [...]
--- OUTSIDE RECORDS SUMMARY | 2025-07-04 12:22 | XMS_ITS | Encounter Summary ---
Author Organization [employer] ([place], [place], [place], [place]) Address [address] [place] [address] Care Team Providers Care Leather Sprayer Name Role Phone Unavailable Primary Care Provider Unavailabl e Encounter Details Date Type Department Care Team (Late st Contact Info) Description 08/04/2020 Transcribed Document [facility] [place] [address] [place] [address] ProviderPrasanth MD [address] [place] [address] Social History Tobacco Use Types [...] SOLIS on 4 IC. Transferred to [facility] via wheelchair with all belongngs. BRANDON ROE RN - 08/04/2020 19:59 EDT Electronically signed by Carla Shelton Conversion Driver License Reviewing Officer Cerner at 01/26/2023 8:54 PM CDT documented in this encounter Plan of Treatment Not on file documented as of this encounter Visit Diagnoses Not on filedocumented in this encounter
--- OUTSIDE RECORDS SUMMARY | 2025-07-04 12:22 | XMS_ITS | Encounter Summary ---
Author Organization [employer] ([place], [place], [place], [place]) Address [address] [place] [address] Care Team Providers Care Train Clerk Name Role Phone Unavailable Primary Care Provider Unavailabl e Encounter Details Date Type Department Care Team (Late st Contact Info) Description 06/02/2021 Transcribed Document [facility] [place] [facility], [facility] [place] [address] ProviderPrasanth MD [facility], [facility] [place] [address] Social History Tobacco Use Types [...] Communication Barrier : None Primary Language : Mongolian Any Spiritual/Cultural Needs or Requests : No [...] Rhythm : Regular Nail Bed Color : [place] Chest Pain : No Capillary Refill, Left [...]
--- OUTSIDE RECORDS SUMMARY | 2025-07-04 12:22 | XMS_ITS | Encounter Summary ---
Author Organization [employer] ([place], [place], [place], [place]) Address [address] [place] [address] Care Team Providers Care Outlet Manager Name Role Phone Unavailable Primary Care Provider Unavailabl e Encounter Details Date Type Department Care Team (Late st Contact Info) Description 07/22/2020 Transcribed Document [facility] [place] [address] [place] [address] ProviderPrasanth MD [address] [place] [address] Social History Tobacco Use Types [...] On: 07/22/2020 11:08 EDT by SALLY BARNETT boarding machine operator Documentation Discharge Date/Time : 07/22/2020 12:26 EDT [...]
--- OUTSIDE RECORDS SUMMARY | 2025-07-04 12:22 | XMS_ITS | Encounter Summary ---
Author Organization [employer] ([place], [place], [place], [place]) Address [address] [place] [address] Care Team Providers Care Director Of Sustainability Name Role Phone Unavailable Primary Care Provider Unavailabl e Encounter Details Date Type Department Care Team (Late st Contact Info) Description 06/02/2021 Transcribed Document [facility] [place] [address] [place] [address] ProviderPrasanth MD [address] [place], [...]
--- OUTSIDE RECORDS SUMMARY | 2025-07-04 12:22 | XMS_ITS | Encounter Summary ---
Author Organization [employer] ([place], [place], [place], [place]) Address [address] [place] [address] Care Team Providers Care Speech Therapist Early Intervention Name Role Phone Unavailable Primary Care Provider Unavailabl e Encounter Details Date Type Department Care Team (Late st Contact Info) Description 06/02/2021 Transcribed Document [facility] [place] [facility] [place] [address] ProviderPrasanth MD [facility] [place] [address] Social History Tobacco Use Types [...] On: 06/02/2021 12:27 EDT by Chang Medrano Parts Analyst-Student Nurse Advance Directive Patient has Advance Directive *Q : Yes, Advance Directive on file Advance Directive Type : Living will Copy Advance Directive Verified/on Chart : No Chang Medrano Parts Analyst-Student Nurse - 06/02/2021 15:42 EDT Anesthesia/Transfusion History Family History of Anesthesia Reaction : No prior transfusion(s) Transfusion History : Prior anesthesia without reaction Family History of Anesthesia Reaction : None Chang Medrano Parts Analyst-Student Nurse - 06/02/2021 15:42 EDT Functional Assessment Living Situation : Home Patient Lives With : Spouse DEVINE Hx Falls Immediate/Within 3 Months : No Current Home Treatments : None Chang Medrano Parts Analyst-Student Nurse - 06/02/2021 15:42 EDT General Info Mode of Arrival on Unit : Ambulatory Legal Guardian : Spouse Legal Guardian : No Support Person/Patient Interactive Media Marketing Specialist : Yes Support Person/Pt Rep Name : Rosa Elena Bustamante- spouse Support Person/Pt Rep Contact Information : [phone] home Want Family/Rep/Phys Notified of Admit : No Emergency Contact #1 : Rosa Elena Bustamante Emergency Contact #1 Phone Number : [phone] Emergency Contact #1 Relationship : Emergency Contact #2 : na Emergency Contact #2 Phone Number : na Emergency Contact #2 Relationship : na Chief Complaint : Pt c/o episode of CP x 2 hours last night, new onset bialteral weakness R>L onset 2200 last night that resolved after 2 hours. Primary Language : Slovenian Preferred Communication Mode : Verbal Communication Barrier : None Executive Chef Assistant Needed : No Chang Medrano, Parts Analyst-Student Nurse - 06/02/2021 15:42 EDT Fall Risk [...] Scale Risk Level : 25-45 Medium Risk [place] Fall Interventions : Adequate lighting, Bed in low position, Hourly comfort/safety rounds, Non-slip footwear, Personal items within reach, Reinforced to call for assistance before getting out of bed, Room free of clutter/spills, Upper side-rails up, Wheels locked, Wires/Cords secured Barriers to Learning : None evident Fall Risk Scale Calc Temp : 0 Chang Medrano, Parts Analyst-Student Nurse - 06/02/2021 15:42 EDT Health Histories Smoking Status : Former smoker, quit more than 30 days ago Smokeless Tobacco Status : Never Chang Medrano Parts Analyst-Student Nurse - 06/02/2021 15:42 EDT Social History [...] Source : Stated Height Entry Format : [place] Height, Feet : 5 ft(Converted to: 152 cm, 60 Inch) Height, Inches : 9 Inch(Converted to: 0 ft 9 Inch, 22.86 cm) Clinical Height : 175.26 cm Weight Source : Bed scale Weight Entry Format : [place] Clinical Dosing Weight : 89.14 kg Weight, Pounds : 196.1 lb Body Surface Area (BSA) : 2.05 m2 Body Mass Index : 29 kg/m2 (HI) [place] Body Weight : 70 kg Chang Medrano, Parts Analyst-Student Nurse - 06/02/2021 15:42 EDT Infectious Disease [...] Mumps Tuberculosis Symptoms : None Chang Medrano, Parts Analyst-Student Nurse - 06/02/2021 15:42 EDT Influenza Vaccine Asmt, Adult Previous Vaccines from Immunization Schedule : Previous Vaccines and Immunizations tetanus/diphtheria/pertussis, acel(Tdap): 0.5 mL (11/04/19 21:11:00) Influenza Immunization, Current Season : Outside of influenza season Chang Medrano Parts Analyst-Student Nurse - 06/02/2021 15:42 EDT Pneumococcal Vaccine Previous Vaccines from Immunization Schedule : Previous Vaccines and Immunizations tetanus/diphtheria/pertussis, acel(Tdap): 0.5 mL (11/04/19 21:11:00) Pneumonia Immunization Received : Yes Chang Medrano Parts Analyst-Student Nurse - 06/02/2021 15:42 EDT Order Details Order Detail : N/A Patient Needs Meds Crushed/Liquid : No Chang Medrano Parts Analyst-Student Nurse - 06/02/2021 15:42 EDT Nutrition History Adaptive Feeding Equipment : Regular Oral Medication Administration : By mouth Eating Poorly Due to Decreased Appetite : No Unplanned Weight Loss in Past 3-6 Months : No Malnutrition Screening Tool Total(mal) : 0 Malnutrition Screening Tool Risk Level : Patient not at risk Chang Medrano Parts Analyst-Student Nurse - 06/02/2021 15:42 EDT [place] Suicide Severity Rating Scale (C-SSRS) CSSRS Past Month Wish to be : No CSSRS Past Month Suicidal Thoughts : No CSSRS Lifetime Suicide Behavior : No Suicide Severity Rating Score : 0 Suicide Severity Rating : No Additional Care Required at this time Chang Medrano Parts Analyst-Student Nurse - 06/02/2021 15:42 EDT Psychosocial History Chronic/Terminal Illness w/Freq Visits : No Do You Have a History of the Following? : Patient denies history Currently in Unsafe Situation : No Chang Medrano Parts Analyst-Student Nurse - 06/02/2021 15:42 EDT Sleep Apnea [...] Risk Level Score : 3 Chang Medrano, Parts Analyst-Student Nurse - 06/02/2021 15:42 EDT Valuables and Belongings Valuables and Belongings : Clothing, Personal devices Clothing : Common streetwear Clothing Disposition : Bedside Personal Device Disposition : With patient Personal Devices : Glasses Chang Medrano, Parts Analyst-Student Nurse - 06/02/2021 15:42 EDT Electronically signed by [facility] Conversion Employment Programs Analyst Cerner at 01/26/2023 8:56 PM CDT documented in this encounter Plan of Treatment Not on file documented as of this encounter Visit Diagnoses Not on filedocumented in this encounter
--- OUTSIDE RECORDS SUMMARY | 2025-07-04 12:22 | XMS_ITS | Encounter Summary ---
Author Organization [employer] ([place], [place], [place], [place]) Address [address] [place] [address] Care Team Providers Care Structural Biologist Name Role Phone Unavailable Primary Care Provider Unavailabl e Encounter Details Date Type Department Care Team (Late st Contact Info) Description 11/08/2019 Transcribed Document [facility] [place] Family Medicine [address] [place] [address] ProviderPrasanth MD [address] [place] [address] Social History Tobacco Use Types Packs/Day Years Used Date Smoking Tobacco: Never Assessed Sex and Gender Information Value Date Recorded Sex Assigned at Not on file Legal Sex Male 6:49 PM CDT Gender Identity Not on file Sexual Orientation Not on file documented as of this encounter Miscellaneous Notes * Cerner Conversion Note - Historical ProviderMD - 11/08/2019 1:34 PM WEBSPHERE ARCHITECT Discharge Summary, PT Entered On: 11/08/2019 13:36 [...] DRAKE PRICE, PT - 11/08/2019 13:34 EST Migratory Game Bird Biologist Goals Mobility/Bed Mobility LTG PT Grid Goal [...] - 11/08/2019 13:34 EST Electronically signed by [facility] Conversion Operations Staff Specialist Security Cerner at 01/26/2023 8:49 PM CDT documented in this encounter Plan of Treatment Not on file documented as of this encounter Visit Diagnoses Not on filedocumented in this encounter
--- OUTSIDE RECORDS SUMMARY | 2025-07-04 12:22 | XMS_ITS | Patient Health Record ---
Author Organization 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 (609309001383223) Coronary artery disease involving akut[place] coronary artery of akut[place] heart without angina pectoris (I25.10) Active confirmed Problem Iron deficiency anemia (96121657) Iron deficiency anemia, unspecified iron deficiency anemia type (D50.9) Active confirmed Problem Pure hypercholesterolemia (691914140) Pure hypercholesterolemia (E78.00) Active confirmed Problem History of heart valve repair with prosthesis (402816997471218) 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 Problem Primary hypertension (33735807) Primary hypertension (I10) Active confirmed Problem Chronic kidney disease stage 3A (disorder) (624137940) Stage 3a chronic kidney disease (CKD) (N18.31) Active confirmed Vital Signs Heart Rate 60 /min 12/13/2024 Blood pressure diastolic 60 mm Hg 12/13/2024 Height 69 in 12/13/2024 Blood pressure systolic 120 mm Hg 12/13/2024 Weight 202.2 lbs 12/13/2024 BMI 29.86 kg/m2 12/13/2024 Encounters Encounter Location Date Provider Diagnosis [facility] [address] [place] [facility] [address] [place], [place] [id number] 08/23/2024 Alexei Stevens Acute UTI N39.0 and Intermittent diarrhea R19.7 [facility] [address] [facility] [address] [place], [place] [id number] 11/14/2024 Alexei Stevens Encounter for immunization Z23 [facility] [address] [facility] [address] [place], [place] [id number] 12/13/2024 R Newton Thompson Aortic valve replace d Z95.2 ; Bleeding R58 and Supratherapeutic INR R79.1 [facility] [address] [facility] [address] [place], [place] [id number] 04/30/2025 R Newton Thompson Assessments Encounter Date [...] Date H-Microalbumine/Creatinine 05/10/2023 Next Appt Details Provider Name:Romana Newton Nevarez et, 08/01/2025 10:00:00 AM, [address], [place], [place], [id number], Insurance Providers Payer Name Payer Address Payer Phone Subscriber Number Group Number Insured Name Patient Relationship to Insured Coverage Start Date Coverage End Date MEDICARE PART B [address] [address] [place] [address] [phone] [id number] SHIRA GARZA Self - patient is the insured [facility] [employer] [address] [place] [address] [id number] SHIRA GARZA Self - patient is the insured Medical (General) History Medical History History ICD Code Coronary Artery Disease Hypertension Hyperlipidemia Aortic Stenosis, s/p [facility] Surgical History Surgery Date(Month/Year) Quintuple Bypass 2008 Hernia Repair Tissue Aortic Valve Replacement 2019 Wrist Hospitalization History Reason Date(Month/Year)
--- OUTSIDE RECORDS SUMMARY | 2025-07-04 12:22 | XMS_ITS | Encounter Summary ---
Author Organization [employer] ([place], [place], [place], [place]) Address [address] [place] [address] Care Team Providers Care Extruder Operator Vertical Name Role Phone Unavailable Primary Care Provider Unavailabl e Encounter Details Date Type Department Care Team (Late st Contact Info) Description 08/04/2020 Transcribed Document [facility] [place] [address] [place] [address] ProviderPrasanth MD [address] [place] [address] Social History Tobacco Use Types [...] of Event : Arrives per stretcher from [facility] awake and alert, skin w/d, no c/o. Denies any CP. SR heart monitor. WALTER POWELL RN - 08/04/2020 13:26 EDT Electronically signed by Carla Shelton Conversion Radiology Special Procedure Tech Cerner at 01/26/2023 8:54 PM CDT documented in this encounter Plan of Treatment Not on file documented as of this encounter Visit Diagnoses Not on filedocumented in this encounter
--- OUTSIDE RECORDS SUMMARY | 2025-07-04 12:22 | XMS_ITS | Encounter Summary ---
Author Organization [employer] ([place], [place], [place], [place]) Address [address] [place] [address] Care Team Providers Care Cattle Shipper Name Role Phone Unavailable Primary Care Provider Unavailabl e Encounter Details Date Type Department Care Team (Late st Contact Info) Description 07/22/2020 Transcribed Document [facility] [place] [address] [place] [address] ProviderPrasatnh MD [address] [place] [address] Social History Tobacco Use Types [...] Source : Measured Height Entry Format : [place] Height, Feet : 5 ft(Converted to: 152 cm, 60 Inch) Height, Inches : 10 Inch(Converted to: 0 ft 10 Inch, 25.40 cm) Clinical Height : 177.8 cm Weight Source : Standing scale Weight Entry Format : [place] Clinical Dosing Weight : 90.91 kg Weight, Pounds : 200 lb Body Surface Area (BSA) : 2.09 m2 Body Mass Index : 28.8 kg/m2 (HI) [address] Body Weight : 72 kg SALLY BARNETT [...] SALLY BARNETT RN - 07/22/2020 9:18 EDT [place] Suicide Severity Rating Scale (C-SSRS) CSSRS Past [...] Spouse Legal Guardian : No Support Person/Patient Director Smb Sales : Yes Support Person/Pt Rep Name : Rosa Elena Cormier- spouse Support Person/Pt Rep Contact Information : [phone] home Want Family/Rep/Phys Notified of Admit : No Emergency Contact #1 : Rosa Elena Emergency Contact #1 Emergency Contact #1 Relationship : spouse Emergency Contact #2 : none Emergency Contact #2 Phone Number : none Emergency Contact #2 Relationship : none Primary Language : Bengali Preferred Communication Mode : Verbal Communication Barrier : None Cardiac Cath Technician Needed : SALLY Lorenzo RN - 07/22/2020 [...] Scale Risk Level : 25-45 Medium Risk [place] Fall Interventions : Adequate lighting, Assistive devices [...]
--- OUTSIDE RECORDS SUMMARY | 2025-07-04 12:22 | XMS_ITS | Encounter Summary ---
Author Organization [employer] ([place], [place], [place], [place]) Address [address] [place] [address] Care Team Providers Care Electronic Train Control Technician Name Role Phone Unavailable Primary Care Provider Unavailabl e Encounter Details Date Type Department Care Team (Late st Contact Info) Description 07/22/2020 Transcribed Document [facility] [place] Medicine [address] [place] [address] ProviderPrasanth MD [address] [place] [address] Social History Tobacco Use Types [...] Sanchez MD - 07/22/2020 12:13 PM CDT [facility] [place] [address] KAYLA SHIRA HORACIO :1935 Visit Time:07/22/2020 [...] From Your Care Team no driving today. 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 [facility] to monitor Coumadin labs and dose Follow-Up Appointments Follow Up with LACIE ALVA When 08/21/2020 11:15 AM EST Comments Appointment has been made Where: [address] [place] [address]- [facility] (1) Medications What How Much When Instructions Next Dose warfarin (warfarin 5 mg oral tablet) 1 Tablet(s) Oral Every Day Refills: 6 dose to be adjusted Pickup at [facility] aspirin 81 Milligram(s) Every Day atorvastatin (atorvastatin 20 mg oral tablet) 1 Tablet(s) Oral Tuesday lisinopril 20 Milligram(s) Oral Every Day multivitamin 1 Tablet(s) Oral Every Day Pharmacy Information [facility]: [address] [address] [phone] Start Coumadin tonight Take your medications faithfully. [...] other medicines or supplements? Many prescription and nsuf-gkc-kvltmvo medicines can interfere with warfarin. Talk with your health care provider or your pharmacist before starting or stopping any new medicines. This includes omox-gwj-hsajvuc vitamins, dietary supplements, herbal medicines, and pain medicines. Your warfarin dosage may need to be adjusted. ??? Some common tggq-nzs-ypnmgnu medicines that may increase the risk of [...] that you work with a diet and nutritional services cook (dietitian). ??? Vitamin K decreases the effect [...] cooked. ??? Collards, raw or cooked. ??? Tuval[place] chard, raw or cooked. ??? Mustard greens, raw or cooked. ??? Turnip greens, raw or cooked. ??? Parsley, raw. ??? Broccoli, cooked. ??? Noodles, eggs, and spinach, enriched. ??? [place] sprouts, raw or cooked. ??? Beet greens, [...] diet. ??? You start or stop any ikwx-nuw-jqsbhla medicine, prescription medicine, or dietary supplement. ??? [...] 09/26/2006 Document Revised: 05/09/2018 Document Reviewed: 12/22/2016 [employer] Patient Education ?? 2020 [employer] Moderate Conscious Sedation, Adult, Care After [...] you are awake and alert. ??? Take nvad-wda-gfdpbpw and prescription medicines only as told by [...] Reviewed: 01/15/2017 Elsevier Patient Education ?? 2020 [employer]. Transesophageal Echocardiogram Transesophageal echocardiogram (VITOR) is [...] including vitamins, herbs, eye drops, creams, and plij-trj-sleuknx medicines. ??? Any problems you or family [...] diabetes medicines or blood thinners. ? Taking vzqw-iqx-xopbyse medicines, vitamins, herbs, and supplements. ? Taking [...] 12/17/2003 Document Revised: 03/07/2018 Document Reviewed: 12/23/2017 [employer] Patient Education ?? 2020 [employer]. Emergency Awareness and Preventative Care STROKE is [...] Assistance with quitting is available by contacting 5-509-RNZJ-NOW. This is a free resource providing counseling, [...] was given the opportunity to ask questions. Patient/Household Appliance Assembler Name: Patient/Household Appliance Assembler Signature: Relationship to Patient: Clinician/Hospital Household Appliance Assembler Signature: Date: documented in this encounter Plan of Treatment Not on file documented as of this encounter Visit Diagnoses Not on filedocumented in this encounter
--- OUTSIDE RECORDS SUMMARY | 2025-07-04 12:22 | XMS_ITS | Encounter Summary ---
Author Organization [employer] ([place], [place], [place], [place]) Address [address] [place] [address] Care Team Providers Care Costumer Assistant Name Role Phone Unavailable Primary Care Provider Unavailabl e Encounter Details Date Type Department Care Team (Late st Contact Info) Description 12/03/2019 Transcribed Document [facility] [place] [address] [place] [address] ProviderPrasanth MD [address] [place] [address] Social History Tobacco Use Types Packs/Day Years Used Date Smoking Tobacco: Never Assessed Sex and Gender Information Value Date Recorded Sex Assigned at Not on file Legal Sex Male 6:49 PM CDT Gender Identity Not on file Sexual Orientation Not on file documented as of this encounter Miscellaneous Notes * Cerner Conversion Note - Prasanth Sanchez MD - 12/03/2019 11:25 AM COMMERCIAL TELLER [facility] [place] [address] SHIRA GARZA HORACIO :1935 Visit Time:12/03/2019 Your Visit Summary [...] afternoon at [facility] Where: [address] [place] [address]- [facility] (1) Medications What How Much [...] including vitamins, herbs, eye drops, creams, and edmn-bsr-tqdlefe medicines. ??? Any problems you or family [...] diabetes medicines or blood thinners. ? Taking zgks-zuq-nwjrjrp medicines, vitamins, herbs, and supplements. ? Taking [...] 12/17/2003 Document Revised: 12/23/2017 Document Reviewed: 12/23/2017 [employer] Patient Education ?? 2019 [employer] Moderate Conscious Sedation, Adult, Care After [...] you are awake and alert. ??? Take xxii-gdy-tqktqvi and prescription medicines only as told by [...] 07/17/2014 Document Revised: 02/28/2017 Document Reviewed: 01/15/2017 [employer] Interactive Patient Education ?? 2019 [employer] Emergency Awareness and Preventative Care STROKE [...] Assistance with quitting is available by contacting 9-807-KIUS-NOW. This is a free resource providing counseling, [...] was given the opportunity to ask questions. Patient/Carroting Machine Operator Name: Patient/Carroting Machine Operator Signature: Relationship to Patient: Clinician/Hospital Carroting Machine Operator Signature: Date: documented in this encounter Plan of Treatment Not on file documented as of this encounter Visit Diagnoses Not on filedocumented in this encounter
--- OUTSIDE RECORDS SUMMARY | 2025-07-04 12:22 | XMS_ITS | Encounter Summary ---
Author Organization [employer] ([place], [place], [place], [place]) Address [address] [place] [address] Care Team Providers Care Relocation Coordinator Name Role Phone Unavailable Primary Care Provider Unavailabl e Encounter Details Date Type Department Care Team (Late st Contact Info) Description 06/02/2021 Transcribed Document [facility] [place] Family Medicine [address] [place] [address] ProviderPrasanth MD [address] [place] [address] Social History Tobacco Use Types [...] 06/02/2021 12:40 EDT by Chang Medrano, Clinical Research Administrator-Student Nurse Teaching/Learning Assessment Individuals Taught : Patient Readiness to Learn : Cooperative Readiness to Learn : Explanation, Teach back method Learning Style Preferences Patient : Verbal explanation Chang Medrano, Clinical Research Administrator-Student Nurse - 06/02/2021 15:50 EDT Barriers To Learning : None evident Chang Medrano, Clinical Research Administrator-Student Nurse - 06/02/2021 15:49 EDT Electronically signed by Carla Shelton Conversion Post Anesthesia Care Unit Nurse Cergarcia at 01/26/2023 9:06 PM CDT documented in this encounter Plan of Treatment Not on file documented as of this encounter Visit Diagnoses Not on filedocumented in this encounter
--- OUTSIDE RECORDS SUMMARY | 2025-07-04 12:22 | XMS_ITS | Encounter Summary ---
Author Organization [employer] ([place], [place], [place], [place]) Address [address] [place] [address] Care Team Providers Care Etl Analyst Developer Name Role Phone Unavailable Primary Care Provider Sharif e Encounter Details Date Type Department Care Team (Late st Contact Info) Description 06/02/2021 Transcribed Document [facility] [place] [address] [place] [address] ProviderPrasanth MD [address] [place] [address] Social History Tobacco Use Types Packs/Day Years Used Date Smoking Tobacco: Never Assessed Sex and Gender Information Value Date Recorded Sex Assigned at Not on file Legal Sex Male 6:49 PM CDT Gender Identity Not on file Sexual Orientation Not on file documented as of this encounter Miscellaneous Notes * Cerner Conversion Note - Prasanth ProviderMD - 06/02/2021 12:40 PM CDT Evaluation, [...] 85 yo male who was admitted to [facility] on 06/02 for chest pain, elevated troponin, NSTEMI, RLE weakness, and dysarthria. PMHx: aortic valve stenosis s/p replacement, Afib, CAD s/p CABG, KOI, HLD, HTN, pacemaker, and SDH. CTH: no [...] EDT Visual/Perceptual/Vestibular, OT Vision Assessment, OT : BSES Davenport, OTR/L - 06/03/2021 13:07 EDT Education [...]
--- OUTSIDE RECORDS SUMMARY | 2025-07-04 12:22 | XMS_ITS | Encounter Summary ---
Author Organization [employer] ([place], [place], [place], [place]) Address [address] [place] [address] Care Team Providers Care Oven Dauber Name Role Phone Unavailable Primary Care Provider Unavailabl e Encounter Details Date Type Department Care Team (Late st Contact Info) Description 11/08/2019 Transcribed Document [facility] [place] Family Medicine [address] [place] [address] ProviderPrasanth MD [address] [place] [address] Social History Tobacco Use Types Packs/Day Years Used Date Smoking Tobacco: Never Assessed Sex and Gender Information Value Date Recorded Sex Assigned at Not on file Legal Sex Male 6:49 PM CDT Gender Identity Not on file Sexual Orientation Not on file documented as of this encounter Miscellaneous Notes * Cerner Conversion Note - Prasanth Sanchez MD - 11/08/2019 11:42 AM ON AIR TALENT [facility] [place] [address] ALEXANDREFei SHIRA HORACIO :1935 Visit Time:11/04/2019 [...] Appointment has been made . Where: [address] [facility] [place] [id number]- Business (1) Follow Up with IRENE MAJANO When 11/15/2019 10:[address] [place]. Appointment has been made Where: [address] [place], [place] [phone]- Business (1) Follow Up with LACIE ALVA When Within 3 months Comments Call for follow up appointment near the end of December. Where: [address] [place] [address] SECTION OF CARDIOLOGY [place], [place] [id number]- Business (1) Follow Up with KARON CALDERA When Within 1 to 2 weeks Where: [address] [place] [address] SECTION OF INTERNAL MEDIC [place] [phone] Business (1) Follow Up with Patient Resource [...] these instructions at home: Medicines ??? Take ysvv-fhb-gkambmu and prescription medicines only as told by [...] and water are not available, use hand armored car driver. ? Change your dressing as told by [...] towers. ??? Do not use amateur ( Bestowed ) radio equipment or electric ( arc [...] 06/20/2013 Document Revised: 12/14/2017 Document Reviewed: 06/20/2016 [employer] (MCG) Interactive Patient Education ?? 2019 [employer] (MCG) Inc. Head Injury, Adult There are many [...] or school. Ask your doctor for a iety-zd-pgnf plan for slowly going back to your [...] your friends, family, a trusted coworker, and draw off worker about your injury, symptoms, and limits (restrictions). Have them watch for any problems that are new or getting worse. General instructions ??? Take mohh-auh-bncjeav and prescription medicines only as told by [...] 04/05/2017 Elsevier Interactive Patient Education ?? 2019 [employer] (MCG) Inc. Subdural Hematoma A subdural hematoma is [...] you to do the same. ??? Take ifol-xmy-njykfbt and prescription medicines only as told by [...] Where to find more information: ??? National [place] of Neurological Disorders and Stroke: www.ninds.nih.gov ??? [place] Association of Neurological Surgeons: http://www.aans.org ??? [place] Academy of Neurology (AAN): www.aan.com ??? Brain [...] 08/31/2017 Elsevier Interactive Patient Education ?? 2018 [employer] (MCG) Inc. Emergency Awareness and Preventative Care STROKE [...] Assistance with quitting is available by contacting 2-928-GLECNOW. This is a free resource providing counseling, support, and referral. Or you may contact your personal physician. [place] Suicide Prevention Lifeline: The National Suicide Prevention [...] range between ( 0.0 and 7.0 ) [place] #: 0.61 K/uL -- Normal range between ( 0.16 and 1.00 ) Eos #: 0.09 x10(3)/uL -- Normal range between ( 0.00 and 0.80 ) [place] %: 9.6 % -- Normal range between [...] was given the opportunity to ask questions. Patient/Plastic Duplicator Name: Patient/Plastic Duplicator Signature: Relationship to Patient: Clinician/Hospital Plastic Duplicator Signature: Date: Electronically signed by Nikita, [facility] Conversion Head Cleaning Porter Richard at 01/26/2023 8:54 PM CDT documented in this encounter Plan of Treatment Not on file documented as of this encounter Visit Diagnoses Not on filedocumented in this encounter
--- OUTSIDE RECORDS SUMMARY | 2025-07-04 12:22 | XMS_ITS | Encounter Summary ---
Author Organization [employer] ([place], [place], [place], [place]) Address [address] [place] [address] Care Team Providers Care Metal Riveter Name Role Phone Unavailable Primary Care Provider Unavailabl e Encounter Details Date Type Department Care Team (Late st Contact Info) Description 06/02/2021 Transcribed Document [facility] [place] [address] [place] [address] ProviderPrasanth MD [address] [place] [address] Social History Tobacco Use Types Packs/Day Years Used Date Smoking Tobacco: Never Assessed Sex and Gender Information Value Date Recorded Sex Assigned at Not on file Legal Sex Male 6:49 PM CDT Gender Identity Not on file Sexual Orientation Not on file documented as of this encounter Miscellaneous Notes * Cerner Conversion Note - Historical ProviderMD - 06/02/2021 2:49 PM CDT BARREL BRIDGE ASSEMBLER Attempt to Treat Entered On: 06/02/2021 14:50 EDT Performed On: 06/02/2021 14:49 EDT by ADRIÁN LUO SLP Attempt to Treat Unable to Treat Due To : Patient Unavailable Inability to Treat Comment : Attempted to see pt for dysphagia evaluation, however he was off the floor. BARREL BRIDGE ASSEMBLER will f/u Tuesday. ADRIÁN LUO SLP - 06/02/2021 14:49 EDT documented in this encounter Plan of Treatment Not on file documented as of this encounter Visit Diagnoses Not on filedocumented in this encounter
--- OUTSIDE RECORDS SUMMARY | 2025-07-04 12:22 | XMS_ITS | Encounter Summary ---
Author Organization [employer] ([place], [place], [place], [place]) Address [address] [place] [address] Care Team Providers Care Field Laboratory Operator Name Role Phone Unavailable Primary Care Provider Unavailabl e Encounter Details Date Type Department Care Team (Late st Contact Info) Description 06/02/2021 Transcribed Document [facility] [place] [address] [place] [address] ProviderPrasanth MD [address] [place] [address] Social History Tobacco Use Types Packs/Day Years Used Date Smoking Tobacco: Never Assessed Sex and Gender Information Value Date Recorded Sex Assigned at Not on file Legal Sex Male 6:49 PM CDT Gender Identity Not on file Sexual Orientation Not on file documented as of this encounter Miscellaneous Notes * Cerner Conversion Note - Historical ProviderMD - 06/02/2021 9:50 AM CDT [place] Suicide Severity Rating Scale (C-SSRS) Entered On: 06/02/2021 11:32 EDT Performed On: 06/02/2021 11:32 EDT by SULAIMAN FAULKNER RN [place] Suicide Severity Rating Scale (C-SSRS) CSSRS Past [...]
--- OUTSIDE RECORDS SUMMARY | 2025-07-04 12:22 | XMS_ITS | Encounter Summary ---
Author Organization [employer] ([place], [place], [place], [place]) Address [address] [place] [address] Care Team Providers Care Powerbuilder Name Role Phone Unavailable Primary Care Provider Unavailabl e Encounter Details Date Type Department Care Team (Late st Contact Info) Description 12/03/2019 Transcribed Document [facility] [place] Family Medicine [address] [place] [address] ProviderPrasanth MD [address] [place] [address] Social History Tobacco Use Types Packs/Day Years Used Date Smoking Tobacco: Never Assessed Sex and Gender Information Value Date Recorded Sex Assigned at Not on file Legal Sex Male 6:49 PM CDT Gender Identity Not on file Sexual Orientation Not on file documented as of this encounter Miscellaneous Notes * Cerner Conversion Note - Historical ProviderMD - 12/03/2019 9:48 AM STORES LABORER Event Note Entered On: 12/03/2019 9:49 EST [...] 12/03/2019 9:50 EST Electronically signed by Nikita [facility] Conversion Eyewear Consultant Cerner at 01/26/2023 9:12 PM CDT documented in this encounter Plan of Treatment Not on file documented as of this encounter Visit Diagnoses Not on filedocumented in this encounter
--- OUTSIDE RECORDS SUMMARY | 2025-07-04 12:22 | XMS_ITS | Encounter Summary ---
Author Organization [employer] ([place], [place], [place], [place]) Address [address] [place] [address] Care Team Providers Care Steel Fabricating Supervisor Name Role Phone Unavailable Primary Care Provider Unavailabl e Encounter Details Date Type Department Care Team (Late st Contact Info) Description 11/08/2019 Transcribed Document [facility] Radiology [address] [place] [address] Abel Kapadia MD [address] [place] [address] [place] [address] Social History Tobacco Use Types Packs/Day Years [...] 11/08/2019 PRIMARY CARE PHYSICIAN: Dr. Marcelino Caldera, [facility]. REFERRING PHYSICIAN: Dr. Beckman, [facility] , 1935. CURRENT COMPLAINT: Falls, dizziness, irregular heartbeat. HISTORY OF PRESENT ILLNESS: Shira Garza is an 84-year-old man, , living in the [facility], who recently underwent a transcatheter [...] At risk for sleep apnea / IMO [id number] / Confirmed Shortness of breath / SNOMED CT 997251023 / Confirmed Hypertension / SNOMED CT 39825992 / Confirmed Wears glasses / SNOMED CT 044554715 / Confirmed, Active Problems (11) Aortic stenosis [...] gallop, S1+ S2 No S3 or S4 Mitchell.. Gastrointestinal: Soft, Non-tender, Non-distended, Normal bowel sounds. [...] (NOV 04) Radiology Results (Last 48 hours) [id number] -- 11/04/2019 21:19 CR Chest 1 Vw [...]
--- OUTSIDE RECORDS SUMMARY | 2025-07-04 12:22 | XMS_ITS | Encounter Summary ---
Author Organization [employer] ([place], [place], [place], [place]) Address [address] [place] [address] Care Team Providers Care Environmental Services Lead Name Role Phone Unavailable Primary Care Provider Sharif e Encounter Details Date Type Department Care Team (Late st Contact Info) Description 06/02/2021 Transcribed Document [facility] [place] Medicine [facility] [place] [address] ProviderPrasanth MD [facility] [address] Social History Tobacco Use Types [...] CARRANZA RN [place] [facility] pulse generator model [id number], serial #[id number] CABG x5 on 05/29/2008 at 72 Years. [...] EDT Height Source Stated Height Entry Format [place] Height/Length, SURINAMESE (ft) 5 ft Height/Length SURINAMESE 9 Inch CLINICALHEIGHT 175.26 cm [place] Body Weight 69.73 kg Weight Source, ED Standing scale Weight Entry Format [place] Weight Vietnamese lb 198.4 lb CLINICALWEIGHT 90.18 kg Body [...] Color Yellow Urine Appearance Clear Urine Specific [place] 1.020 Urine pH Dipstick *5.0 Urine Leukocyte [...] % 26.0 % Lymph # 1.59 K/uL [place] % 10.6 % [place] # 0.65 K/uL Eos % 0.5 % Eos # 0.03 Baso % 0.2 % Baso # 0.01 Slide Review No . Chest X-Ray: No infiltrate; no pneumothorax; normal mediastinum; no bony abnormality. Sternotomy wires and pacemaker. Per EDMD. . Radiology results: Radiology Results (Last 48 hours) [id number] -- 06/02/2021 09:50 CT Head WO (06/02/2021 [...] Calls-Consults - 06/02/2021 11:34:00 , [facility].. [...] plan.. Notes: I certify that the physician call center assistant performed the services as delegated. This note has been prepared with the use of voice recognition software and may contain sound alike errors and omissions.. documented in this encounter Plan of Treatment Not on file documented as of this encounter Visit Diagnoses Not on filedocumented in this encounter
--- OUTSIDE RECORDS SUMMARY | 2025-07-04 12:22 | XMS_ITS | Encounter Summary ---
Author Organization [employer] ([place], [place], [place], [place]) Address [address] [place] [address] Care Team Providers Care Starch Mangle Tender Name Role Phone Unavailable Primary Care Provider Unavailabl e Encounter Details Date Type Department Care Team (Late st Contact Info) Description 12/03/2019 Transcribed Document [facility] [place] [address] [place] [address] ProviderPrasanth MD [address] [place] [address] Social History Tobacco Use Types Packs/Day Years Used Date Smoking Tobacco: Never Assessed Sex and Gender Information Value Date Recorded Sex Assigned at Not on file Legal Sex Male 6:49 PM CDT Gender Identity Not on file Sexual Orientation Not on file documented as of this encounter Miscellaneous Notes * Cerner Conversion Note - Historical ProviderMD - 12/03/2019 11:24 AM BELLMAN DRIVER Nursing Discharge Summary Entered On: 12/03/2019 11:24 EST Performed On: 12/03/2019 11:24 EST by AUSTIN FOFANA, teller coordinator Documentation Discharge Date/Time : 12/03/2019 12:26 EST [...] Teaching Evaluation : Returns demonstration, Verbalizes understanding AUSITN FOFANA, RN - 12/03/2019 11:24 EST Electronically signed by Nikita [facility] Conversion Shingler Cerner at 01/26/2023 9:08 PM CDT documented in this encounter Plan of Treatment Not on file documented as of this encounter Visit Diagnoses Not on filedocumented in this encounter
--- OUTSIDE RECORDS SUMMARY | 2025-07-04 12:22 | XMS_ITS | Encounter Summary ---
Author Organization [employer] ([place], [place], [place], [place]) Address [address] [place] [address] Care Team Providers Care Grades 7 8 Tutor Name Role Phone Unavailable Primary Care Provider Unavailabl e Encounter Details Date Type Department Care Team (Late st Contact Info) Description 06/02/2021 Transcribed Document [facility] [place] Family Medicine [address] [place] [address] ProviderPrasanth [place] [address] Social History Tobacco Use Types [...] On: 06/02/2021 15:14 EDT by ADRIÁN LUO, MENTAL HEALTH SOCIAL WORKER General Information Visit Type, MENTAL HEALTH SOCIAL WORKER : Initial evaluation Patient Orders : Speech Language Pathology Swallow Evaluation and Treatment -111 Start: 06/02/21 15:13:00 EDT, Routine, For Swallow Eval and Treat - CJ AVITIA MD-INT Speech Language Pathology Evaluation and Treatment - Start: 06/02/21 12:40:00 EDT, Routine, For Speech Language Cognitive Eval and Treat -111 CJ AVITIA MD-INT Admission Date : Admission Date/Time: 06/02/21 12:02:00 Medical Chart Reviewed, MENTAL HEALTH SOCIAL WORKER : Yes Personal Devices : Personal Devices No Devices Recorded Assistive Devices : Assistive Devices No Devices Recorded Active Diagnoses : 06/02/2021 12:00 Chest pain 06/02/2021 12:00 Chest pain, unspecified 06/02/2021 12:00 Non-ST elevation (NSTEMI) myocardial infarction 06/02/2021 12:00 Other specified abnormalities of plasma proteins 06/02/2021 12:00 Transient cerebral ischemic attack, unspecified 06/02/2021 12:00 Weakness Therapy Diagnosis, MENTAL HEALTH SOCIAL WORKER : Pt presents without overt oropharyngeal patterns. Recommendations: 1. Regular/thin 2. Medication per RN 3. NO further evaluation/tx for oropharyngeal dysphagia 4. MENTAL HEALTH SOCIAL WORKER will f/u with a definitive neuro dx warranting further communication evaluation Previous Speech/Language Evaluations : No previous ST in EMR Previous Swallow Precautions : No previous ST in EMR Diet/Intake Prior to Current Admission : Regular/thin Diet/Intake During Current Admission : NPO Intubation Comment, MENTAL HEALTH SOCIAL WORKER : n/a Vital Signs RTF : Vitals [...] 15:14 EDT General Status Patient Received Status, MENTAL HEALTH SOCIAL WORKER : Sitting edge of bed Patient Left Status, MENTAL HEALTH SOCIAL WORKER : Sitting edge of bed ADRIÁN LUO [...] Oral Mechanism for Daily Living : Intact MENTAL HEALTH SOCIAL WORKER Cough : Strong Facial Appearance: : Symmetrical [...] A flutter, CAD, Aortic valve replacement, CABG, TOL[place]A DEE-NI', HLD, HTN and subdural hematoma. MENTAL HEALTH SOCIAL WORKER consulted for bedside dysphagia evaluation. Today, pt is alert and oriented x4. No overt communication deficits appreciated. Oral skills appear functional for swallowing. No overt pharyngeal patterns appreciated with any trialed consistency. Pt appears safe for a regular diet and thin liquids. Medication per RN. No further evaluation/tx for oropharyngeal dysphagia is indicated at this time. MENTAL HEALTH SOCIAL WORKER will f/u with a definitive neuro dx [...] - 06/02/2021 15:14 EDT Therapy Indication Assessment MENTAL HEALTH SOCIAL WORKER Indicated : No MENTAL HEALTH SOCIAL WORKER Not Indicated : At prior level of function MENTAL HEALTH SOCIAL WORKER Interdisciplinary Consultation Needs : No MENTAL HEALTH SOCIAL WORKER Rehabilitation Potential : At prior level of function ADRIÁN LUO SLP - 06/02/2021 15:14 EDT Education Barriers To Learning : None evident Individuals Taught : Patient Readiness to Learn : Cooperative Readiness to Learn : Explanation ADRIÁN LUO SLP - 06/02/2021 15:14 EDT MENTAL HEALTH SOCIAL WORKER Education Assessment Grid 1 Diet Recommendation : Verbalizes understanding Evaluation Results : Verbalizes understanding ADRIÁN LUO SLP - 06/02/2021 15:[address] [facility] Charges Evaluation Swallowing Function : 1 ADRIÁN LUO SLP - 06/02/2021 15:14 EDT Anticipated Discharge Needs, MENTAL HEALTH SOCIAL WORKER Anticipated Discharge to : Home, independently Recommend Continued Therapy at Discharge : No ADRIÁN LUO SLP - 06/02/2021 15:14 EDT Electronically signed by Nikita [facility] Conversion Restaurant Kitchen And Service Manager Cerner at 01/26/2023 8:54 PM CDT documented in this encounter Plan of Treatment Not on file documented as of this encounter Visit Diagnoses Not on filedocumented in this encounter
--- OUTSIDE RECORDS SUMMARY | 2025-07-04 12:22 | XMS_ITS | Encounter Summary ---
Author Organization [employer] ([place], [place], [place], [place]) Address [address] [place] [address] Care Team Providers Care Spring Assembler Name Role Phone Unavailable Primary Care Provider Unavailabl e Encounter Details Date Type Department Care Team (Late st Contact Info) Description 06/02/2021 Transcribed Document [facility] [place] [address] [place] [address] ProviderPrasanth MD [address] [place] [address] Social History Tobacco Use Types [...] On: 06/02/2021 12:40 EDT by Chang Medrano, Tip Cementer-Student Nurse Amanda Rubin Bedside Swallowing 2 Exhibits [...] 60 mL Water : No Chang Medrano, Tip Cementer-Student Nurse - 06/02/2021 15:29 EDT Electronically signed by Nikita [facility] Conversion Improvement Advisor Richard at 01/26/2023 8:59 PM CDT documented in this encounter Plan of Treatment Not on file documented as of this encounter Visit Diagnoses Not on filedocumented in this encounter
--- OUTSIDE RECORDS SUMMARY | 2025-07-04 12:22 | XMS_ITS | Encounter Summary ---
Author Organization [employer] ([place], [place], [place], [place]) Address [address] [place] [address] Care Team Providers Care Last Marker Name Role Phone Unavailable Primary Care Provider Unavailabl e Encounter Details Date Type Department Care Team (Late st Contact Info) Description 12/03/2019 Transcribed Document [facility] [place] Family Medicine [address] [place] [address] ProviderPrasanth MD [address] [place] [address] Social History Tobacco Use Types Packs/Day Years Used Date Smoking Tobacco: Never Assessed Sex and Gender Information Value Date Recorded Sex Assigned at Not on file Legal Sex Male 6:49 PM CDT Gender Identity Not on file Sexual Orientation Not on file documented as of this encounter Miscellaneous Notes * Cerner Conversion Note - Historical ProviderMD - 12/03/2019 11:15 AM PRODUCT OPERATIONS ASSOCIATE Event Note Entered On: 12/03/2019 11:17 EST Performed On: 12/03/2019 11:15 EST by AUSTIN FOFANA, RN Event Note Event Date/Time : 12/03/2019 11:05 EST Description of Event : pt received back to unit from procedure lab, s/p VITOR, anne within reach, family at bedside , VSS AUSTIN FOFANA, RN - 12/03/2019 11:15 EST Electronically signed by Nikita [facility] Conversion Woodworking Belt Sander Cerner at 01/26/2023 9:08 PM CDT documented in this encounter Plan of Treatment Not on file documented as of this encounter Visit Diagnoses Not on filedocumented in this encounter
--- OUTSIDE RECORDS SUMMARY | 2025-07-04 12:23 | XMS_ITS | Encounter Summary ---
Author Organization [employer] ([place], [place], [place], [place]) Address [address] [place] [address] Care Team Providers Care Housekeeping Associate Name Role Phone Unavailable Primary Care Provider Unavailabl e Encounter Details Date Type Department Care Team (Late st Contact Info) Description 08/04/2020 Transcribed Document [facility] [place] [address] [place] [address] ProviderPrasanth [place] [address] Social History Tobacco Use Types [...] EMS Legal Guardian : No Support Person/Patient Leave Specialist : Yes Support Person/Pt Rep Name : Rosa Elena Cormier- spouse Support Person/Pt Rep Contact Information : [phone] home Want Family/Rep/Phys Notified of Admit : No Emergency Contact #1 : Rosa Elena Emergency Contact #1 Emergency Contact #1 Relationship : spouse Emergency Contact #2 : n/a Emergency Contact #2 Phone Number : n/a Emergency Contact #2 Relationship : n/a Chief Complaint : Tele hold Information Obtained From : Patient Primary Language : [place] Islander Preferred Communication Mode : Verbal Communication Barrier : None Gauge Inspector Needed : No Tish Calvillo Rn - [...] Scale Risk Level : 25-45 Medium Risk [place] Fall Interventions : Adequate lighting Barriers to Learning : None evident Learning Style Preferences Family : None Learning Style Preferences Patient : None Fall Risk Scale Calc Temp : 0 Tish Cavlillo Rn - 08/04/2020 20:32 EDT Health Histories [...] Source : Stated Height Entry Format : [place] Height, Feet : 5 ft(Converted to: 152 cm, 60 Inch) Height, Inches : 9 Inch(Converted to: 0 ft 9 Inch, 22.86 cm) Clinical Height : 175.26 cm Weight Source : Standing scale Weight Entry Format : [place] Clinical Dosing Weight : 88.64 kg Weight, Pounds : 195 lb Body Surface Area (BSA) : 2.05 m2 Body Mass Index : 28.9 kg/m2 (HI) [place] Body Weight : 70 kg Tish Calvillo [...] Tish Calvillo Rn - 08/04/2020 20:32 EDT [place] Suicide Severity Rating Scale (C-SSRS) CSSRS Past [...]
[2025-07-04 13:09] LABS: INR 1.85 (0.9-1.1); Prothrombin Time 19.6 seconds (10.1-12.5)
== END 2025-07-04 23:59 | disposition home or self-care (01) ==
LOC: LAB 12:16
PROVIDERS: PCP Family Medicine; Visit Provider Internal Medicine
DX: Z79.01 Long term (current) use of anticoagulants (principal)
CPT/HCPCS: 36415; 85610

== ENCOUNTER 2025-07-18 11:00 | Outpatient (CLI) | payer MEDICARE, SELFPAY ==
[2025-07-18 11:44] LABS: INR 2.52 (0.9-1.1); Prothrombin Time 26.1 seconds (10.1-12.5)
== END 2025-07-18 23:59 | disposition home or self-care (01) ==
LOC: LAB 11:03
PROVIDERS: PCP Family Medicine; Visit Provider Internal Medicine
DX: I21.4 Non-ST elevation (NSTEMI) myocardial infarction (principal)
CPT/HCPCS: 36415; 85610

== ENCOUNTER 2025-08-15 11:55 | Outpatient (CLI) | payer MEDICARE, SELFPAY ==
--- OUTSIDE RECORDS SUMMARY | 2024-08-23 05:00 | XMS_ITS ---
[facility] Organization [facility] Address [address] [facility] [address] [place] [phone] Care Team Providers Care Map Compiler Name Role Phone Alexei Almodovar Primary Care Provider ALEXEI ALMODOVAR Unavailable Unavailable Allergies Allergen (clinical drug ingredient) Drug/Non Drug Allergy documented on EMR Reaction Allergy Type Onset Date Status clopidogrel Plavix Unknown Drug Allergy Activ e Results Component Value Reference Range Notes Urinalysis - Inhouse Reviewed date:08/23/2024 11:17:53 AM Interpretation: Performing Lab: Notes/Report: Color/Clarity dark yellow/clear Leuk 1+ Nitrite Pos Urobili 3.2 Protein Neg pH 5.5 Blood 2+ Sp. Gr. 1.020 Ketone Neg Bili Neg Gluc Neg TEN-UTI panel Reviewed date:08/29/2024 01:20:38 PM Interpretation:sensitive Performing Lab: Notes/Report: sensitive TEN-UTI panel Reviewed date:08/29/2024 01:20:38 PM Interpretation:sensitive Performing Lab: Notes/Report: sensitive REASON FOR VISIT Urinary and bowel issues Medications Medication SIG (Take, Route, Frequency, Duration) Notes Start Date End Date Status Lisinopril 5 MG 1 tab(s) orally once a day Active Atorvastatin Calcium 20 MG 1 tab(s) oral ly once a day Active Metoprolol Succinate ER 25 MG 1 tab(s) orally once a day Active Warfarin Sodium 5 MG 1 tab(s) orally onc e a day Active Aspirin 81 MG 1 tab(s) orally once a day; Duration: 30 day(s) Active Colestipol HCl 1 GM 1 tablet Orally Once a day; Duration: 30 day(s) 08/23/2024 Active Macrobid 100 MG 1 capsule with food Orally every 12 hrs; Duration: 7 days 08/23/2024 Active Vital Signs Blood pressure systolic 114 mm Hg 08/23/20 24 Blood pressure diastolic 72 mm Hg 024 Heart Rate 72 /min 08/23/2024 Height 69 in 08/23/2024 Weight 199.4 lbs 08/23/2024 BMI 29.44 kg/m2 08/23/2024 Encounters Encounter Location Date Provider Diagnosis [facility] [address] [place] [phone] 08/23/2024 Alexei Almodovar Acute UTI N39.0 and Intermittent diarrhea R19.7 Assessments Encounter Date Diagnosis (ICD Code) Assessment Notes Treatment Notes Treatment Clinical Notes Section Notes 08/23/2024 Acute UTI (ICD-10 - N39.0) 08/23/2024 Intermittent diarrhea (ICD-10 - R19.7) Plan Of Treatment Medication Medication Name Sig Start Date Stop Date Notes Colestipol HCl 1 GM 1 tablet Orally Once a day; Duration: 30 day(s) 08/23/2024 Macrobid 100 MG 1 capsule with food Orally every 12 hrs; Duration: 7 days 08/23/2024 Next Appt Details Follow Up: 3 or 4 Weeks, [place] son: Progress Notes * SHIRA GARZADOB:1935 ( 89 yo M)Acc No.[id number]:08/23/2024 Progress Notes Patient: SHIRA LYONS Provider: Florinda Almodovar M.D. :1935 A ge:89 Y S ex:Male Date:08/23/2024 Address:[address] [place] [address] [id number] Subjective: * Chief Complaints: * 1 . Urinary and bowel issues. * HPI: M mariposa Reproductive: 89 year old male presents with c/o frequency P t complains of urinating every hour for about a month. Pt states he used to be able to go 3-4 hours without having to go. Pt states that he does not have any other symptoms. G astroenterology: c/o Diarrhea P t complains of diarrhea after dinner every night for a while . Pt states he has a regular bowel movement every morning and is not sure why the diarrhea started. * ROS: C ARDIOLOGY: no D izziness. n o C hest pain. D ERMATOLOGY: no R ting. n o H marlen. G ASTROENTEROLOGY: no N ausea. n o V omiting. * Medical History: C oronary Artery Disease, Hypertension, Hyperlipidemia, Aortic Stenosis, s/p Tissue Valve Replacement, 10/2019, Pacemaker. * Surgical History: Q uintuple Bypass 2007, Hernia Repair , Tissue Aortic Valve Replacement 2019, Wrist . * Hospitalization/Major Diagno stic Procedure: D enies Past Hospitalization. * Family History: N o Family History documented.. * Social History: C URRENT TOBACCO USE: No . C affeine: yes, frequency: Daily. 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 Alcohol: no. 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 * Medications: T aking Aspirin 81 MG Tablet Delayed Release 1 tab(s) orally once a day , Taking Warfarin Sodium 5 MG Tablet 1 tab(s) orally once a day , Taking Atorvastatin Calcium 20 MG Tablet 1 tab(s) orally once a day , Taking Metoprolol Succinate ER 25 MG Tablet Extended Release 24 Hour 1 tab(s) orally once a day , Taking Lisinopril 5 MG Tablet 1 tab(s) orally once a day , Medication List reviewed and reconciled with the patient * Allergies: P lavix. Objective: * Vitals: W t:199.4, Temp:97.9, BP:114/72, HR:72, Nurse:aishwarya, Ht: 69, BMI:29.44. * Examination: G eneral Examination: General Appearance: N AD. H eart: R SR. L ungs:?clear to auscultation. A bdomen: bowel sounds present, soft and nontender. B ack: no CVA tenderness. Assessment: * Assessment: 1. A cute UTI - N39.0 (Primary) 2 . I ntermittent diarrhea - R19.7 ? Plan: * Treatment: Value Reference Range C olor/Clarity dark yellow/clear * L euk 1+ * N itrite Pos * U robili 3.2 * P rotein Neg * p H 5.5 * B lood 2+ * S p. Gr. 1.020 * K etone Neg * B hernan Neg * G jennifer Neg * Lorene Staton 08/23/2024 10:09: 10 AM > , Provider reviewed results while patient in office.Alexei Almodovar 08/23/2024 11:17:47 AM > ?LAB: TEN-UTI panel (Collection Date & Time - 08/23/2024)?sensitive* Kezia Medel 08/28/2024 8:5 2:26 AM > Started on MacrobidKing,Lorene 08/28/2024 1:20:27 PM > Pt informed 2.?Intermittent diarrhea? Start Colestipol HCl Tablet, 1 GM, 1 tablet, Orally, Once a day, 30 day(s), 30 Tablet, Refills 0. ? * Procedure Codes: G 2211 Complex e/[place], [address] Urinalysis, no micro * Follow Up: 3 or 4 Weeks * Images: Billing Information: * Visit Code: 61988 Office Visit, Est Pt., Level 3. * Procedure Codes: G2211 Complex e/[place]. [address] Urinalysis, no micro. * Electronic signature of Kia Almodovar MD on 08/15/2025 at 12:02 PM EST Sign off status: Pending * Provider: Florinda Almodovar M.D. Date: 10/23/2023 Generated for Teodora rivera/Nita/eTransmitting on: 10/15/2024 12:02 PM EST History and Physical Notes * HPI (History of Present Illness) Category Sub-Category Detail Notes Category Not es Gastroenterology Diarrhea Pt complains of diarrhea after dinner every night for a while . Pt states he has a regular bowel movement every morning and is not sure why the diarrhea started Male Reproductive frequency Pt complains o f urinating every hour for about a month. Pt states he used to be able to go 3-4 hours without having to go. Pt states that he does not have any other symptoms Examination Category Sub-Category Detail Notes Category Not es General Examination Heart: RSR Lungs: clear to auscultatio n Abdomen: bowel sounds present , soft and nontender General Appearance: NAD Back: no CVA tenderness
--- OUTSIDE RECORDS SUMMARY | 2024-09-20 05:00 | XMS_ITS ---
Author Organization [facility] Address 1210 [facility] [address] [place] [phone] Care Team Providers Care Net Development Manager Name Role Phone Alexei Almodovar Primary Care Provider ALEXEI ALMODOVAR Unavailable Unavailable Allergies Allergen (clinical drug ingredient) Drug/Non Drug Allergy documented on EMR Reaction Allergy Type Onset Date Status clopidogrel Plavix Unknown Drug Allergy Activ e REASON FOR VISIT 4 weeks Encounters Encounter Location Date Provider Diagnosis [facility] [address] [place] [phone] 09/20/2024 Alexei Almodovar Plan Of Treatment No Information Progress Notes * SHIRA GARZADOB:1935 ( 89 yo M)Acc No.[id number]:09/20/2024 Progress Notes Patient: SHIRA LYONS Provider: Florinda Almodovar M.D. :1935 A ge:89 Y S ex:Male Date:09/20/2024 Address:[address] [place] [address] [id number] Subjective: * Chief Complaints: * 1 . 4 weeks. * ROS: D ERMATOLOGY: no R ting. n o H marlen. G ASTROENTEROLOGY: no N ausea. n o V omiting. U ROLOGY: no D ifficulty urinating. n o B lood in urine. * Medical History: C oronary Artery Disease, [...] frequency: Daily. 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 Alcohol: no. 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 * Allergies: P lavix. Objective: * Vitals: Assessment: Plan: * Treatment: * Procedure Codes: G 2211 Complex e/m visit add on * Images: Billing Information: * Visit Code: * Procedure Codes: G2211 Complex e/m visit add on. * Electronic signature of Kia Almodovar MD on 08/15/2025 at 12:02 PM EST Sign off status: Pending * Provider: Florinda Almodovar M.D. Date: 11/21/2023 Generated for Teodora rivera/Nita/Kaushikitting on: 10/15/2024 12:02 PM EST
--- OUTSIDE RECORDS SUMMARY | 2024-10-19 05:30 | XMS_ITS ---
Author Organization [facility] Address [facility] [facility] [address] [place] [phone] Care Team Providers Care Rv Service Technician Name Role Phone Alexei Almodovar Primary Care Provider ALEXEI ALMODOVAR Unavailable Unavailable REASON FOR VISIT flu vaccine Encounters Encounter Location Date Provider Diagnosis [facility] [address] [place] [phone] 10/19/2024 Alexei Almodovar Plan Of Treatment No Information Progress Notes * SHIRA GARZADOB:1935 ( 89 yo M)Acc No.[id number]:10/19/2024 Patient: SHIRA LYONS Provider: Florinda Almodovar M.D. :1935 A ge:89 Y S ex:Male Date:10/19/2024 Address:[address] [place], [place] [id number] Subjective: * Chief Complaints: * 1 . Flu vaccine. * Medical History: Objective: * Vitals: Assessment: Plan: * Treatment: * Images: Billing Information: * Visit Code: * Procedure Codes: * Electronic signature of Kia Almodovar MD on 08/15/2025 at 12:02 PM EST Sign off status: Pending * Provider: Florinda Almodovar M.D. Date: 0 10/19/2024 Generated for Syi nicole/Nita/eTransmitting on: 10/15/2024 12:02 PM EST
--- OUTSIDE RECORDS SUMMARY | 2024-11-14 05:45 | XMS_ITS ---
Author Organization [facility] Address 1210 [facility] [address] [place] [phone] Care Team Providers Care Service Now Developer Name Role Phone Alexei Almodovar Primary Care Provider ALEXEI ALMODOVAR Unavailable Unavailable REASON FOR VISIT flu shot Medications Medication SIG (Take, Route, Frequency, Duration) Notes Start Date End Date Status Colestipol HCl 1 GM 1 tablet Orally Once a day; Duration: 30 day(s) 08/23/2024 Active Warfarin Sodium 5 MG 1 tab(s) orally onc e a day Active Aspirin 81 MG 1 tab(s) orally once a day; Duration: 30 day(s) Active Atorvastatin Calcium 20 MG 1 tab(s) oral ly once a day Active Lisinopril 5 MG 1 tab(s) orally once a day Active Metoprolol Succinate ER 25 MG 1 tab(s) orally once a day Active Immunizations Vaccine Route Administration Date Status Comme nts Fluzone High Dose (65yr and older) IM Intramuscular 11/14/2024 Administered Encounters Encounter Location Date Provider Diagnosis [facility] [address] [facility] [address] [place] [phone] 11/14/2024 Alexei Almodovar Encounter for immunization Z23 Assessments Encounter Date Diagnosis (ICD Code) Assessment Notes Treatment Notes Treatment Clinical Notes Section Notes 11/14/2024 Encounter for immunization (ICD-10 - Z23) Plan Of Treatment No Information Progress Notes * ALEXANDRESHIRA EnamoradoDOB:1935 ( 89 yo M)Acc No.[id number]:11/14/2024 Patient: Kenny VERONIKASHIRA Enamorado Provider: Florinda Almodovar M.D. DOB:1935 A ge:89 Y S ex:Male Date:11/14/2024 Address:[address] [place] [address] [id number] Subjective: * Chief Complaints: * 1 . Flu shot. * Medical History: * Medications: T aking Aspirin 81 MG [...] tab(s) orally once a day , Taking Colestipol HCl 1 GM Tablet 1 tablet Orally Once a day , Discontinued Macrobid 100 MG Capsule 1 capsule with food Orally every 12 hrs , Medication List reviewed and reconciled with the patient Objective: * Vitals: Assessment: * Assessment: 1. E ncounter for immunization - Z23 (Primary) Plan: * Treatment: * Immunizations: Fluzone High Dose (65yr and older) : 0.5 mL (Route: Intramuscular) given by Lorene Staton on Left Deltoid (Encounter for immunization) * Images: Billing Information: * Visit Code: * Procedure Codes: * Electronic signature of Kia Almodovar MD on 08/15/2025 at 12:01 PM EST Sign off status: Pending * Provider: Florinda Almodovar M.D. Date: 0 11/14/2024 Generated for Teodora rivera/Nita/Kaushikitting on: 10/15/2024 12:01 PM EST
--- OUTSIDE RECORDS SUMMARY | 2024-12-13 11:00 | XMS_ITS ---
Author Organization [facility] Address [facility] [facility] [address] [place] [phone] Care Team Providers Care Junior Graphic Designer Name Role Phone Alexei Almodovar Primary Care Provider ALEXEI ALMODOVAR Unavailable Unavailable Romana Thompson Unavailable [phone] Allergies Allergen (clinical drug ingredient) Drug/Non Drug Allergy documented on EMR Reaction Allergy Type Onset Date Status clopidogrel Plavix Unknown Drug Allergy Activ e Results Component Value Reference Range Notes PT/INR (in house) Reviewed date:12/14/2024 10:29:53 AM Interpretation: Performing Lab: Notes/Report: PT 3.7 INR 44.2 current dose 5 mg M,W: 2.5mg AOD new dose same next check 10 days hold for (days) 2 days CBC Fingerstick (in house) Reviewed date:12/14/2024 10:36:51 AM Interpretation: Performing Lab: Notes/Report: wbc 5.4 3.5 - 10 lym 29.8 15 - 50 mid 8.7 2 - 15 gran 61.5 35 - 80 rbc 4.20 3.5 - 5.5 hgb 12.4 11.5 - 16.5 hct 37.1 35 - 55 mcv 88.4 75 - 100 mch 29.5 25 - 35 mchc 33.3 31 - 38 plat 140 100 - 400 REASON FOR VISIT spitting up blood Medications Medication SIG (Take, Route, Frequency, Duration) Notes Start Date End Date Status Warfarin Sodium 5 MG 1 tab(s) orally onc e a day Active Atorvastatin Calcium 20 MG 1 tab(s) oral ly once a day Active Aspirin 81 MG 1 tab(s) orally once a day; Duration: 30 day(s) Active Metoprolol Succinate ER 25 MG 1 tab(s) orally once a day Active Lisinopril 5 MG 1 tab(s) orally once a day Active Colestipol HCl 1 GM 1 tablet Orally Once a day; Duration: 30 day(s) 08/23/2024 Active Problems Problem Type SNOMED Code ICD Code Onset Dates Problem Status W/U Status Risk Notes Problem History of heart valve repair with prosthesis (38536974155412 8) 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 Vital Signs Blood pressure systolic 120 mm Hg 12/14/19 25 Blood pressure diastolic 60 mm Hg 025 Heart Rate 60 /min 12/13/2024 Height 69 in 12/13/2024 Weight 202.2 lbs 12/13/2024 BMI 29.86 kg/m2 12/13/2024 Encounters Encounter Location Date Provider Diagnosis [facility] [address] [facility] [address] [place] [address], [place] [phone] 12/13/2024 Romana Thompson Aortic valve replace d Z95.2 ; Bleeding R58 and Supratherapeutic INR R79.1 Assessments Encounter Date Diagnosis (ICD Code) Assessment Notes Treatment Notes Treatment Clinical Notes Section Notes 12/13/2024 Aortic valve replaced (ICD-10 - Z95.2) 12/13/2024 Bleeding (ICD-10 - R58) 12/13/2024 Supratherapeutic INR (ICD-10 - R79.1) hold coumadin for 2 days then resume same dose. Keep f/u with Coumadin Clinic in 10 days Plan Of Treatment Treatment Notes Assessment Notes Supratherapeutic INR hold coumadin for 2 days then resume same dose. Keep f/u with Coumadin Clinic in 10 days Next Appt Details Follow Up: with Coumadin Cli yamilex, Reason: Progress Notes * SHIRA GARZADOB:1935 ( 89 yo M)Acc No.[id number]:12/13/2024 Progress Notes Patient: SHIRA LYONS Provider: Romana Thompson M.D. :1935 A ge:89 Y S ex:Male Date:12/13/2024 Address:[address] [place] [address] [place], [id number] Pcp:Alexei Almodovar Subjective: * Chief Complaints: * 1 . Spitting up blood. * HPI: H PI: 89 year old male presents with c/o Patient is here today for?Mr. Garza currently takes Coumadin for aortic valve replacementand woke this morning to find 3 inch bright red blood stain on his pillow. Other than that there was no obvious source of bleeding. There was no dried blood around his nose, mouth or ears. He has had no recent respiratory infections. No significant cough.. H ematology: c/o PT/INR d ue for PT/INR. * ROS: D ERMATOLOGY: no R ting. [...] age 85. Alcohol: no. 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 * Medications: T aking Aspirin 81 MG [...] 1 tablet Orally Once a day , Medication List reviewed and reconciled with the patient * Allergies: P lavix. Objective: * Vitals: W t:202.2, Temp:98.3, BP:120/60, HR:60, O2 Sat:96% on RA, Nurse:marcel, Ht: 69, BMI:29.86. * Examination: G eneral Examination: T Ms are clear with no dried blood. Nares show no evidence of active or old blood. Oropharynx is clear as well. Assessment: * Assessment: 1. A ortic valve replaced - Z95.2 (Primary) 2 . B leeding - R58 ?3. S upratherapeutic INR - R79.1 Plan: * Treatment: Value Reference Range w bc 5.4 3.5 - 10 * l ym 29.8 15 - 50 * m id 8.7 2 - 15 * g ran 61.5 35 - 80 * r bc 4.20 3.5 - 5.5 * h gb 12.4 11.5 - 16.5 * h ct 37.1 35 - 55 * m cv 88.4 75 - 100 * m ch 29.5 25 - 35 * m chc 33.3 31 - 38 * p lat 140 100 - 400 * Abiola Ramirez 12/13/2024 4:09:3 2 PM > Provider reviewed results while patient in office. 2.?Supratherapeutic INR? Notes: hold coumadin for 2 days then resume same dose. Keep f/u with Coumadin Clinic in 10 days ? * Labs: * L ab: PT/INR (in house) (Collection Date & Time - 12/13/2024) Value Reference Range P T 3.7 * I NR 44.2 * c urrent dose 5 mg M,W: 2.5mg AOD * n ew dose same * n ext check 10 days * h old for (days) 2 days * Abiola Ramirez 12/13/2024 4:08:4 3 PM > Provider reviewed results while patient in office. * Procedure Codes: G 2211 Complex e/[place], [address] [place], [address] PROTHROMBIN TIME, Modifiers: QW , 18465 CAPILLARY BLOOD DRAW, 57756 CBC WITH AUTO DIFF, 3074F SYST BP LT 130 MM HG, 3078F DIAST BP < 80 MM HG * Follow Up: w [facility] * Images: Billing Information: * Visit Code: 91373 Office Visit, Est Pt., Level 3. * Procedure Codes: G2211 Complex e/[place] [address] [place] [address] PROTHROMBIN TIME. Modifiers: QW 11142 CAPILLARY BLOOD DRAW. 97391 CBC WITH AUTO DIFF. 3074F SYST BP LT 130 MM HG. 3078F DIAST BP < 80 MM HG. * Electronic signature of Romana Thompson MD on 08/15/2025 at 11:58 AM EST Sign off status: Pending * Provider: Romana Thompson M.D. Date: 0 12/13/2024 Generated for Teodora rivera/Nita/Kaushikitting on: 1 10/15/2024 11:58 AM EST History and Physical Notes * HPI (History of Present Illness) Category Sub-Category Detail Notes Category Not es HPI Patient is here today for Mr. Tom dixon currently takes Coumadin for aortic valve replacementand woke this morning to find 3 inch bright red blood stain on his pillow. Other than that there was no obvious source of bleeding. There was no dried blood around his nose, mouth or ears. He has had no recent respiratory infections. No significant cough. Hematology PT/INR due for PT/INR Examination Category Sub-Category Detail Notes Category Not es General Examination TMs are clear with no dried blood. Nares show no evidence of active or old blood. Oropharynx is clear as well.
--- OUTSIDE RECORDS SUMMARY | 2025-06-19 06:00 | XMS_ITS ---
Author Organization [facility] Address [address] [facility] [address] [place] [id number] Care Team Providers Care Electronic System Engineer Name Role Phone Alexei Almodovar Primary Care Provider [phone] ALEXEI ALMODOVAR Unavailable Unavailable REASON FOR VISIT check up Encounters Encounter Location Date Provider Diagnosis [facility] [address] [place] [id number] 06/19/2025 Alexei Almodovar Plan Of Treatment No Information Progress Notes * SHIRA GARZADOB:1935 ( 89 yo M)Acc No.[id number]:06/19/2025 Progress Notes Patient: SHIRA LYONS Provider: Florinda Almodovar M.D. :1935 A ge:89 Y S ex:Male Date:06/19/2025 Address:[address] [place] [address] [id number] Subjective: * Chief Complaints: * 1 . Check up. * Medical History: Objective: * Vitals: Assessment: Plan: * Treatment: * Images: Billing Information: * Visit Code: * Procedure Codes: * Electronic signature of Kia Almodovar MD on 08/15/2025 at 11:58 AM EST Sign off status: Pending * Provider: Florinda Almodovar M.D. Date: 0 06/19/2025 Generated for Syi ng/Farandy/eTransmitting on: 1 10/15/2024 11:58 AM EST
--- OUTSIDE RECORDS SUMMARY | 2025-08-01 05:05 | XMS_ITS ---
Author Organization [facility] Address [address] [facility] [address] [place] [id number] Care Team Providers Care Project Engineering Manager Name Role Phone Alexei Almodovar Primary Care Provider ALEXEI ALMODOVAR Unavailable Unavailable Romana Thompson Unavailable [phone] Allergies Allergen (clinical drug ingredient) Drug/Non Drug Allergy documented on EMR Reaction Allergy Type Onset Date Status clopidogrel Plavix Unknown Drug Allergy Activ e REASON FOR VISIT checkup, labs and Annual Wellness Visit Medications Medication SIG (Take, Route, Frequency, Duration) Notes Start Date End Date Status Lisinopril 5 MG 1 tab(s) orally once a day Active Warfarin Sodium 5 MG 1 tab(s) orally onc e a day Active Metoprolol Succinate ER 25 MG 1 tab(s) orally once a day Active Colestipol HCl 1 GM 1 tablet Orally Once a day; Duration: 30 day(s) 08/23/2024 Active Aspirin 81 MG 1 tab(s) orally once a day; Duration: 30 day(s) Active Atorvastatin Calcium 20 MG 1 tab(s) oral ly once a day Active Immunizations Vaccine Route Administration Date Status Comme nts Fluzone High Dose (65yr and older) IM Intramuscular 08/01/2025 Administered Prevnar (PCV20) IM Intramuscular 08/01/2025 Administered Problems Problem Type SNOMED Code ICD Code Onset Dates Problem Status W/U Status Risk Notes Problem Benign prostatic hyperplasia (808617446) BPH (benign prostatic hyperplasia) (N40.0) Active confirmed Problem Permanent cardiac pacemaker (164742456697141 ) 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2 ; BPH (benign prostatic hyperplasia) N40.0 ; Primary hypertension I10 ; Presence of permanent cardiac pacemaker Z95.0 ; Stage 3a chronic kidney disease (CKD) N18.31 ; BMI 29.0-29.9,adult Z68.29 and Encounter for immunization Z23 Assessments Encounter Date Diagnosis (ICD Code) Assessment Notes Treatment Notes Treatment Clinical Notes Section Notes 08/01/2025 Adult general medical examination (ICD-10 - Z00.00) Patient instructed to return to office Annually for Annual Wellness Visits to include annual screenings of Pain assessment, Functional Ability assessment, Cognitive Ability assessment, Fall Risk assessment, Depression screening and Bladder control screening. 08/01/2025 Coronary artery disease involving match-e-be-nash-she-wish band coronary artery of match-e-be-nash-she-wish band heart without angina pectoris (ICD-10 - I25.10) Continue follow-up with cardiology as scheduled. 08/01/2025 Aortic valve replaced (ICD-10 - Z95.2) 08/01/2025 BPH (benign prostatic hyperplasia) (ICD-10 - N40.0) 08/01/2025 Primary hypertension (ICD-10 - I10) 08/01/2025 Presence of permanent cardiac pacemaker (ICD-10 - Z95.0) 08/01/2025 Stage 3a chronic kidney disease (CKD) (ICD-10 - N18.31) 08/01/2025 BMI 29.0-29.9,adult (ICD-10 - Z68.29) 08/01/2025 Encounter for immunization (ICD-10 - Z23) Plan Of Treatment Medication Medication Name Sig Start Date Stop Date Notes Lisinopril 5 MG 1 tab(s) orally once a day Warfarin Sodium 5 MG 1 tab(s) orally once a day Metoprolol Succinate ER 25 MG 1 tab(s) orally once a day Atorvastatin Calcium 20 MG 1 tab(s) orally once a day Treatment Notes Assessment Notes Adult general medical examination Patien t instructed to return to office Annually for Annual Wellness Visits to include annual screenings of Pain assessment, Functional Ability assessment, Cognitive Ability assessment, Fall Risk assessment, Depression screening and Bladder control screening. Coronary artery disease invo lving match-e-be-nash-she-wish band coronary artery of match-e-be-nash-she-wish band heart without angina pectoris Continue follow-up with cardiology as scheduled. Next Appt Details Follow Up: 1 Year, Reason: Progress Notes * SHIRA GARZADOB:1935 ( 89 yo M)Acc No.[id number]:08/01/2025 Annual Wellness Visit Patient: SHIRA LYONS Provider: Romana Thompson M.D. :1935 A ge:89 Y S ex:Male Date:08/01/2025 Address:[address] [place], [place] [address] [facility] Pcp:Alexei Almodovar Subjective: * Chief Complaints: * 1 . checkup, labs and Annual Wellness Visit. * HPI: C ardiology: Ezekiel comes in for annual checkup and immunization update. Interim history is reviewed and he has had a stable course and generally feels well. 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 He continues to follow with cardiology every 6 months regarding his history of ASCVD and aortic valve replacement. His dairy clerk monitors his labs and he follows with [facility] to monitor his INR. M mariposa Reproductive: His only complaint is nocturia, once or twice per night. * ROS: O PTHALMOLOGY: Negative for d enies issues with vision. * Medical History: C oronary Artery Disease, Hypertension, Hyperlipidemia, Aortic Stenosis, s/p Tissue Valve Replacement, 10/2019, Pacemaker. * Surgical History: Q uintuple Bypass 2007, Hernia Repair , Tissue Aortic Valve Replacement 2019, Wrist . * Family History: N o Family History documented.. * Social History: C URRENT TOBACCO USE: No . C affeine: yes, frequency: Daily. 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 Alcohol: no. 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 * Medications: T aking Aspirin 81 MG [...] Allergies: P lavix. Objective: * Vitals: W t: 196.4, Temp: 98.6, BP: 120/68, HR: 62, O2 Sat: 95% on RA, Nurse: marcel, Ht: 69, BMI:29. * Physical Examination: G ENERAL: Pain Assessment: P ain level: 1, on a scale of 0 to 10 (10 being extreme pain). F unctional Status Assessment: P atient response to how often physical health interferes with daiy activities: ALmost never Able to perform ADLs-including meal preparation, grocery shopping, housework, laundry, taking medications, or handling finances. Cognitive Status: Alert and oriented. Ambulation Status: Fully ambulatory. F all Risk Assessment: I ndependant in ambulation, adequate lighting in home. Patient has NOT fallen or had trouble walking within the past 12 months. D epression Screening: D enies depressed mood or anxiety. Describes emotional health as: positive. B ladder Control Screening: s ignificant problems. Assessment: * Assessment: 1. A dult general medical examination - Z00.00 (Primary) 2 . C oronary artery disease involving match-e-be-nash-she-wish band coronary artery of match-e-be-nash-she-wish band heart without angina pectoris - I25.10 ? 3 . A ortic valve replaced - Z95.2 4 . B PH (benign prostatic hyperplasia) - N40.0 5 . P rimary hypertension - I10 6 . P resence of permanent cardiac pacemaker - Z95.0 7 . S tage 3a chronic kidney disease (CKD) - N18.31 8 . B [place] 29.0-29.9,adult - Z68.29 9 . E ncounter for immunization - Z23 Plan: * Treatment: 2. C oronary artery disease involving match-e-be-nash-she-wish band coronary artery of match-e-be-nash-she-wish band heart without angina pectoris Continue Metoprolol Succinate ER Tablet Extended Release 24 Hour, 25 MG, 1 tab(s), orally, once a day; C ontinue Atorvastatin Calcium Tablet, 20 MG, 1 tab(s), orally, once a day. Notes: Continue follow-up with cardiology as scheduled. 3. A ortic valve replaced Continue Warfarin Sodium Tablet, 5 MG, 1 tab(s), orally, once a day. 4. P rimary hypertension Continue Lisinopril Tablet, 5 MG, 1 tab(s), orally, once a day. * Immunizations: Fluzone High Dose (65yr and older) : 0.5 mL (Route: Intramuscular) given by MARCEL Man on Right Deltoid (Encounter for immunization) Prevnar (PCV20) : 0.5 mL (Route: Intramuscular) given by MARCEL Man on Right Deltoid (Encounter for immunization) * Procedure Codes: G 0438 [facility]; PERSNL PPS INIT, G2211 Complex e/m visit add on, 1090F PRES/ABSN URINE INCON ASSESS, 3288F FALL RISK ASSESSMENT DOCD, 1170F FXNL STATUS ASSESSED, 1159F MED LIST DOCD IN RCRD, 1003F LEVEL OF ACTIVITY ASSESS, 1036F TOBACCO NON-USER, G8420 BMI<30 AND >=22 CALC & DOCU, G8510 NEG SCR Depression PT NOT ELIG F/U/PLN DOC, G8950 PREHTN/HTN BP DOC INDCD F/U DOC, G8752 MOST RECENT SYSTOLIC BP < 140MM HG, G8754 MOST RECENT DIASTOLIC BP < 90MM HG, 3074F SYST BP LT 130 MM HG, 3078F DIAST BP < 80 MM HG * Preventive Medicine: Counseling: E motional health: E ncouraged to try connecting with family or friends to boost mood. B ladder control: D iscussed ways to control/manage leakage of urine. Exercise: A dvised to start, increase or maintain level of exercise/physical activity. I njury prevention: D iscussed fall prevention. Discussed need for cane/walker. Potential trip hazards discussed. Immunizations: T etanus u p to date. P neumococcal r ecommended. I nfluenza r ecommended seasonally. Screening / Special Tests: C olonoscopy R ecent history:, excluded due to age.? * Follow Up: 1 Year * Images: Drawin08/01/25 [facility] Billing Information: * Visit Code: 45431 Office Visit, Est Pt., Level 3. Modifiers: 25 * Procedure Codes: G0438 ANNUAL [facility] VST; PERSNL PPS INIT. G2211 Complex e/m visit add on. 1090F PRES/ABSN URINE INCON ASSESS. 3288F FALL RISK ASSESSMENT DOCD. 1170F FXNL STATUS ASSESSED. 1159F MED LIST DOCD IN RCRD. 1003F LEVEL OF ACTIVITY ASSESS. 1036F TOBACCO NON-USER. G8420 BMI<30 AND >=22 CALC & DOCU. G8510 NEG SCR Depression PT NOT ELIG F/U/PLN DOC. G8950 PREHTN/HTN BP DOC INDCD F/U DOC. G8752 MOST RECENT SYSTOLIC BP < 140MM HG. G8754 MOST RECENT DIASTOLIC BP < 90MM HG. 3074F SYST BP LT 130 MM HG. 3078F DIAST BP < 80 MM HG. * Electronic signature of Romana Thompson MD on 08/15/2025 at 12:00 PM EST Sign off status: Pending * Provider: Romana Thompson M.D. Date: Generated for Teodora rivera/Nita/Charles on: 10/15/2024 12:00 PM EST History and Physical Notes * Physical Examination Category Sub-Category Detail Notes Section Note s GENERAL Pain Assessment: Pain level: 1, on a scale of 0 to 10 (10 being extreme pain) Functional Status Assessment: Patient re sponse to how often physical health interferes with daiy activities: ALmost neverAble to perform ADLs-including meal preparation, grocery shopping, housework, laundry, taking medications, or handling finances.Cognitive Status: Alert and oriented.Ambulation Status: Fully ambulatory Fall Risk Assessment: Independant in amb ulation, adequate lighting in home. Patient has NOT fallen or had trouble walking within the past 12 months Depression Screening: Denies depressed m ood or anxiety. Describes emotional health as: positive Bladder Control Screening: significant p dustin
--- OUTSIDE RECORDS SUMMARY | 2025-08-15 11:57 | XMS_ITS | Encounter Summary ---
Author Organization [employer] ([place], [place], [place], [place], [place]) Address [address] [place] [address] Care Team Providers Care Kerfer Machine Operator Name Role Phone Unavailable Primary Care Provider Unavailabl e Encounter Details Date Type Department Care Team (Late st Contact Info) Description 11/05/2019 Transcribed Document [facility] [place] [address] [place] [address] ProviderPrasanth MD [address] [place] [address] Social History Tobacco Use Types Packs/Day Years Used Date Smoking Tobacco: Never Assessed Sex and Gender Information Value Date Recorded Sex Assigned at Not on file Legal Sex Male 6:49 PM CDT Gender Identity Not on file Sexual Orientation Not on file documented as of this encounter Miscellaneous Notes * Cerner Conversion Note - Historical ProviderMD - 11/05/2019 9:53 AM CANDY POLISHER Evaluation, Physical Therapy Entered On: 11/05/2019 15:26 [...] ROM : WF Right LE Strength : [facility] LLE Active ROM : [facility] Left LE Strength : [facility] PB BROWNLEE, PT - 11/05/2019 15:11 EST [...] PB BROWNLEE, PT - 11/05/2019 15:11 EST Pneumatic Systems Operator Goals Mobility/Bed Mobility LTG PT Grid Goal [...] PB BROWNLEE, PT - 11/05/2019 15:11 EST [place] PT Charges PT Eval Moderate Complexity : 1 PB RBOWNLEE, PT - 11/05/2019 15:11 EST documented in this encounter Plan of Treatment Not on file documented as of this encounter Visit Diagnoses Not on filedocumented in this encounter
--- OUTSIDE RECORDS SUMMARY | 2025-08-15 11:57 | XMS_ITS | Encounter Summary ---
Author Organization [employer] ([place], [place], [place], [place], [place]) Address [address] [place] [address] Care Team Providers Care Tunnel Man Name Role Phone Unavailable Primary Care Provider Unavailabl e Encounter Details Date Type Department Care Team (Late st Contact Info) Description 11/05/2019 Transcribed Document [facility] [place] Family Medicine [address] [place] [address] ProviderPrasanth MD [address] [place] [address] Social History Tobacco Use Types Packs/Day Years Used Date Smoking Tobacco: Never Assessed Sex and Gender Information Value Date Recorded Sex Assigned at Not on file Legal Sex Male 6:49 PM CDT Gender Identity Not on file Sexual Orientation Not on file documented as of this encounter Miscellaneous Notes * Cerner Conversion Note - Prasanth ProviderMD - 11/05/2019 5:54 PM INDUSTRIAL GAS FITTER HELPER On Going Discharge Planning Entered On: 11/05/2019 17:54 EST Performed On: 11/05/2019 17:54 EST by ROSANA CALLEJAS RN-Broadcast SupervisorDirector Inbound Sales Progress Note Discharge Arrangements : Patient Post-Acute Information Patient Name: SHIRA GARZA HORACIO Gender: Male : [birth year] Age: 84 Years No Post-Acute Placement(s) Listed No Post-Acute Service(s) Listed No [place] Referral(s) Listed Discharge Plan Comment : home w/ ROSANA CALLEJAS, RN-Broadcast Supervisor - 11/05/2019 17:54 EST Narrative Progress Note [...] and assist w/needs as approp. ROSANA CALLEJAS, RN-Broadcast Supervisor - 11/05/2019 17:54 EST Electronically signed by Nikita [facility] Conversion Airport Maintenance Laborer Cerner at 01/26/2023 8:50 PM CDT documented in this encounter Plan of Treatment Not on file documented as of this encounter Visit Diagnoses Not on filedocumented in this encounter
--- OUTSIDE RECORDS SUMMARY | 2025-08-15 11:58 | XMS_ITS | Encounter Summary ---
Author Organization [employer] ([place], [place], [place], [place], [place]) Address [address] [place] [address] Care Team Providers Care Avionics Mechanic Name Role Phone Unavailable Primary Care Provider Unavailabl e Encounter Details Date Type Department Care Team (Late st Contact Info) Description 11/05/2019 Transcribed Document [facility] Neurology - [address] [facility] [address] [place] [address] [place] [address] [place] [address] [address] [place] [address] Social History Tobacco Use Types [...] Lymph # 1.32 x10(3)/uL 11/04/2019 20:08 EST [place] % 9.6 % (High) 11/04/2019 20:08 EST [place] # 0.61 K/uL 11/04/2019 20:08 EST Eos [...]
--- OUTSIDE RECORDS SUMMARY | 2025-08-15 11:58 | XMS_ITS | Encounter Summary ---
Author Organization [employer] ([place], [place], [place], [place], [place]) Address [address] [place] [address] Care Team Providers Care Nurse Ob Name Role Phone Unavailable Primary Care Provider Unavailabl e Encounter Details Date Type Department Care Team (Late st Contact Info) Description 11/06/2019 Transcribed Document [facility] Radiology [address] [place] [address] Abel Kapadia MD [address] [place] [address] [address] [place] [id number] Social History Tobacco Use Types Packs/Day Years [...] Discharge PRIMARY CARE PHYSICIAN: Dr. Marcelino Caldera, [facility]. REFERRING PHYSICIAN: Dr. Beckman, [facility] , 1935. CURRENT COMPLAINT: Falls, dizziness, [...] At risk for sleep apnea / IMO [id number] / Confirmed Shortness of breath / SNOMED CT 161840717 / Confirmed Hypertension / SNOMED CT 51320999 / Confirmed Wears glasses / SNOMED CT 036257535 / Confirmed, Active Problems (11) Aortic stenosis [...] 10:00) 35 (NOV 05 16:00) 74 (NOV 05:15) Resp Rate 17 (NOV 06 10:00) L [...] gallop, S1+ S2 No S3 or S4 Lea.. Gastrointestinal: Soft, Non-tender, Non-distended, Normal bowel sounds. [...] (NOV 04) Radiology Results (Last 48 hours) [id number] -- 11/04/2019 21:19 CT Head WO (11/04/2019 [...]
--- OUTSIDE RECORDS SUMMARY | 2025-08-15 11:58 | XMS_ITS | Encounter Summary ---
Author Organization [employer] ([place], [place], [place], [place], [place]) Address [address] [place] [address] Care Team Providers Care Binder Stripper Machine Name Role Phone Unavailable Primary Care Provider Unavailabl e Encounter Details Date Type Department Care Team (Late st Contact Info) Description 11/04/2019 Transcribed Document [facility] [place] Family Medicine [address] [place] [address] ProviderPrasanth MD [address] [place] [address] Social History Tobacco Use Types Packs/Day Years Used Date Smoking Tobacco: Never Assessed Sex and Gender Information Value Date Recorded Sex Assigned at Not on file Legal Sex Male 6:49 PM CDT Gender Identity Not on file Sexual Orientation Not on file documented as of this encounter Miscellaneous Notes * Cerner Conversion Note - Historical ProviderMD - 11/04/2019 11:15 PM WOOL SACKER ED Discharge Entered On: 11/04/2019 23:36 EST [...] 11/04/2019 23:34 EST Electronically signed by Nikita [facility] Conversion Board Of Directors Cerner at 01/26/2023 9:09 PM CDT documented in this encounter Plan of Treatment Not on file documented as of this encounter Visit Diagnoses Not on filedocumented in this encounter
--- OUTSIDE RECORDS SUMMARY | 2025-08-15 11:58 | XMS_ITS | Encounter Summary ---
Author Organization [employer] ([place], [place], [place], [place], [place]) Address [address] [place] [address] Care Team Providers Care Pbx Mechanic Name Role Phone Unavailable Primary Care Provider Unavailabl e Encounter Details Date Type Department Care Team (Late st Contact Info) Description 11/05/2019 Transcribed Document [facility] [place] Family Medicine [address] [place] [address] ProviderPrasanth MD [address] [place] [address] Social History Tobacco Use Types Packs/Day Years Used Date Smoking Tobacco: Never Assessed Sex and Gender Information Value Date Recorded Sex Assigned at Not on file Legal Sex Male 6:49 PM CDT Gender Identity Not on file Sexual Orientation Not on file documented as of this encounter Miscellaneous Notes * Cerner Conversion Note - Prasanth ProviderMD - 11/05/2019 5:51 PM CLASS C TRUCK DRIVER Initial Discharge Planning Entered On: 11/05/2019 17:54 EST Performed On: 11/05/2019 17:51 EST by ROSANA CALLEJAS RN-Merchandise Planner Initial Assessment I Previously Documented Living Environment [...] Listed? : Yes Medical Durable Power of Administrative Representative Name : Legal Guardian : No ROSANA CALLEJAS RN-Merchandise Planner - 11/05/2019 17:51 EST Initial Assessment II Sensory and Motor Deficits : None Deficit Description : glasses Current Home Treatments and Equipment : None Services and Community Resources Addl Comments : Workout @ local Facility Gym 3x/wk Does the Patient have a Floor to SNF Benefit? : Yes ROSANA CALLEJAS RN-Merchandise Planner - 11/05/2019 17:51 EST Discharge Needs I Anticipated Discharge To, CM : Home independently Current Home Treatment/Equipment : Current Home Treatment/Equipment No qualifying data available. Documentation Status Complete : Yes ROSANA CALLEJAS RN-Merchandise Planner - 11/05/2019 17:51 EST Discharge Needs II Professional Skilled Services : Professional Skilled Services No qualifying data available. Needs Assistance with Transportation : No ROSANA CALLEJAS RN-Merchandise Planner - 11/05/2019 17:51 EST Narrative Note Narrative [...] and assist w/needs as approp. ROSANA CALLEJAS RN-Merchandise Planner - 11/05/2019 17:51 EST documented in this encounter Plan of Treatment Not on file documented as of this encounter Visit Diagnoses Not on filedocumented in this encounter
--- OUTSIDE RECORDS SUMMARY | 2025-08-15 11:58 | XMS_ITS | Encounter Summary ---
Author Organization [employer] ([place], [place], [place], [place], [place]) Address [address] [place] [address] Care Team Providers Care Mosaic Worker Name Role Phone Unavailable Primary Care Provider Unavailabl e Encounter Details Date Type Department Care Team (Late st Contact Info) Description 09/25/2019 Transcribed Document [facility] [place] [address] [place] [address] ProviderPrasanth MD [address] [place] [address] Social History Tobacco Use Types Packs/Day Years Used Date Smoking Tobacco: Never Assessed Sex and Gender Information Value Date Recorded Sex Assigned at Not on file Legal Sex Male 6:49 PM CDT Gender Identity Not on file Sexual Orientation Not on file documented as of this encounter Miscellaneous Notes * Cerner Conversion Note - Historical MD Daniel - 09/25/2019 10:53 PM FIRESTOPPER INSTALLER Event Note Entered On: 09/25/2019 22:54 EST Performed On: 09/25/2019 22:53 EST by Phyllis Singletary RN Event Note Description of Event : Transferred patient to [facility] after giving report by phone to Alphonse SOLIS. Phyllis Singletary RN - 09/25/2019 22:53 EST documented in this encounter Plan of Treatment Not on file documented as of this encounter Visit Diagnoses Not on filedocumented in this encounter
--- OUTSIDE RECORDS SUMMARY | 2025-08-15 11:58 | XMS_ITS | Encounter Summary ---
Author Organization [employer] ([place], [place], [place], [place], [place]) Address [address] [place] [address] Care Team Providers Care Procurement Professional Name Role Phone Unavailable Primary Care Provider Unavailabl e Encounter Details Date Type Department Care Team (Late st Contact Info) Description 11/05/2019 Transcribed Document [facility] [place] Family Medicine [address] [place] [address] ProviderPrasanth MD [address] [place] [address] Social History Tobacco Use Types Packs/Day Years Used Date Smoking Tobacco: Never Assessed Sex and Gender Information Value Date Recorded Sex Assigned at Not on file Legal Sex Male 6:49 PM CDT Gender Identity Not on file Sexual Orientation Not on file documented as of this encounter Miscellaneous Notes * Cerner Conversion Note - Historical ProviderMD - 11/05/2019 5:00 AM CAKE STRIPPER Chart Check - Review Order Profile Entered [...]
--- OUTSIDE RECORDS SUMMARY | 2025-08-15 11:58 | XMS_ITS | Encounter Summary ---
Author Organization [employer] ([place], [place], [place], [place], [place]) Address [address] [place] [address] Care Team Providers Care Cashiers Bussers Food Runners Name Role Phone Unavailable Primary Care Provider Unavailabl e Encounter Details Date Type Department Care Team (Late st Contact Info) Description 11/05/2019 Transcribed Document [facility] [place] [address] [place] [address] ProviderPrasanth MD [address] [place] [address] Social History Tobacco Use Types Packs/Day Years Used Date Smoking Tobacco: Never Assessed Sex and Gender Information Value Date Recorded Sex Assigned at Not on file Legal Sex Male 6:49 PM CDT Gender Identity Not on file Sexual Orientation Not on file documented as of this encounter Miscellaneous Notes * Cerner Conversion Note - Historical ProviderMD - 11/05/2019 3:27 PM OPAL POLISHER Treatment Intervention, PT Entered On: 11/07/2019 15:45 [...] CJ WHEELER PTA - 11/07/2019 15:42 EST Detention Goals Mobility/Bed Mobility LTG PT Grid Goal [...] treatment if pacemake placment completed CJ WHEELER, OPTICAL MANUFACTURING TECHNICIAN - 11/07/2019 15:[address] [facility] PT Charges OPTICAL MANUFACTURING TECHNICIAN PT Therap. Exercise 15 min-OPTICAL MANUFACTURING TECHNICIAN : 1 CJ WHEELER OPTICAL MANUFACTURING TECHNICIAN - 11/07/2019 15:42 EST Electronically signed by Nikita [facility] Conversion Political Scientist Cerner at 01/26/2023 9:10 PM CDT documented in this encounter Plan of Treatment Not on file documented as of this encounter Visit Diagnoses Not on filedocumented in this encounter
--- OUTSIDE RECORDS SUMMARY | 2025-08-15 11:58 | XMS_ITS | Encounter Summary ---
Author Organization [employer] ([place], [place], [place], [place], [place]) Address [address] [place] [address] Care Team Providers Care Emissions Inspector Name Role Phone Unavailable Primary Care Provider Unavailabl e Encounter Details Date Type Department Care Team (Late st Contact Info) Description 11/05/2019 Transcribed Document [facility] [place] [address] [place] [address] ProviderPrasanth MD [address] [place] [address] Social History Tobacco Use Types Packs/Day Years Used Date Smoking Tobacco: Never Assessed Sex and Gender Information Value Date Recorded Sex Assigned at Not on file Legal Sex Male 6:49 PM CDT Gender Identity Not on file Sexual Orientation Not on file documented as of this encounter Miscellaneous Notes * Cerner Conversion Note - Prasanth Sanchez MD - 11/05/2019 8:53 AM CARGO MATE Patient: SHIRA GARZA HORACIO Age: 84 Years [...] 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 The patient was transported to the emergency [...] 10/29/2019 obtain echocardiogram CAD s/p 5V CABG [facility] 09/2019 revealed patent grafts continue nitrate, [...] block Echo pe Electronically signed by Interface, [facility] Conversion Flash Ranging Crewmember Cerner at 01/26/2023 9:07 PM CDT documented in this encounter Plan of Treatment Not on file documented as of this encounter Visit Diagnoses Not on filedocumented in this encounter
--- OUTSIDE RECORDS SUMMARY | 2025-08-15 11:58 | XMS_ITS | Encounter Summary ---
Author Organization [employer] ([place], [place], [place], [place], [place]) Address [address] [place] [address] Care Team Providers Care Receiving Tank Operator Name Role Phone Unavailable Primary Care Provider Unavailcarla e Encounter Details Date Type Department Care Team (Late st Contact Info) Description 11/05/2019 Transcribed Document [facility] [place] [address] [place] [address] ProviderPrasanth MD [address] [place] [address] Social History Tobacco Use Types Packs/Day Years Used Date Smoking Tobacco: Never Assessed Sex and Gender Information Value Date Recorded Sex Assigned at Not on file Legal Sex Male 6:49 PM CDT Gender Identity Not on file Sexual Orientation Not on file documented as of this encounter Miscellaneous Notes * Cerner Conversion Note - Prasanth ProviderMD - 11/05/2019 9:53 AM SUPERINTENDENT FACTORY Evaluation, Occupational Therapy Entered On: 11/06/2019 14:25 [...] : 11/04/2019 21:19 Co-treated by, OT : metallurgical laboratory assistant (CORPORATE EXECUTIVE CHEF) Assisted by, OT : engineering lab technician/aide Personal Devices : Personal Devices Glasses Assistive Devices : Assistive Devices No Devices Recorded General Information Comment, OT : 84 yo female who was admitted to [facility] on 11/04 for cardiac arrhythmias/heart [...] Upper Extremity Right UE Active ROM : WF Right UE Strength : WFL Left UE Active ROM : WF Left UE Strength : [facility] Upper Extremity Strength Impaired : No Right UE Strength : WF Left UE Strength : [facility] Upper Extremity Comment : BUE ROM and MMT [facility] BESS VINCENT, OTR/L - 11/06/2019 14:12 [...] Level : Assist, minimal BESS VINCENT, OTR/L - 11/06/2019 14:12 EST Mobility Device/Prosthesis/Wt Bearing Weight Bearing Status Maintained : Yes Weight Bearing Status : Full MELISABESS Amaury, OTR/L - 11/06/2019 14:12 EST Cognition Assessment, OT Orientation : Oriented x 4 Cognition Assessment, OT : Intact Comprehension Assessment, OT : Intact LEVJUDITBESS, OTR/L - 11/06/2019 14:12 EST Education OT Occupational Therapy Education Grid Activity of Daily Living Training : Needs further teaching Functional Mobility Training : Needs further teaching Role of Occupational Therapy : Verbalizes understanding BESS VINCENT, OTR/L - 11/06/2019 14:12 EST Teaching/Learning Assessment Barriers To Learning : None evident Individuals Taught : Patient Readiness to Learn : Cooperative Highest Level of Education : University degree(s) Readiness to Learn : Explanation Learning Style Preferences Patient : Verbal explanation BESS VINCENT, OTR/L - 11/06/2019 14:12 EST Indication Assessment, OT Occupational Therapy Indicated : Yes Problem List, OT : Impaired, bed mobility, Impaired, activities daily living, Impaired, endurance tolerance, Impaired functional mobility, Impaired, standing balance, Impaired, strength, Impaired, transfers Potential Barriers, OT : None evident Rehabilitation Potential, OT : Good LEVJUDITBESS, OTR/L - 11/06/2019 14:12 EST Plan of [...] Pain scale Pain Score Pre-Intervention : 0 EBSS VINCENT OTR/Chio - 11/06/2019 14:12 EST Image 1 - Images currently included in the form version of this document have not been included in the text rendition version of the form. Anticipated Discharge Needs, OT/PT Anticipated Discharge to : Home, independently Recommend Continued Therapy at Discharge : No BESS VINCENT OTR/Chio - 11/06/2019 14:12 EST [place] OT Charges OT Eval Moderate Complexity : 1 BESS VINCENT OTR/L - 11/06/2019 14:12 EST Electronically signed by Filiberto Shelton Conversion Small Products Ii Assembler Cerner at 01/26/2023 8:57 PM CDT documented in this encounter Plan of Treatment Not on file documented as of this encounter Visit Diagnoses Not on filedocumented in this encounter
--- OUTSIDE RECORDS SUMMARY | 2025-08-15 11:58 | XMS_ITS | Encounter Summary ---
Author Organization [employer] ([place], [place], [place], [place], [place]) Address [address] [place] [address] Care Team Providers Care Cigar Packing Examiner Name Role Phone Unavailable Primary Care Provider Unavailabl e Encounter Details Date Type Department Care Team (Late st Contact Info) Description 11/06/2019 Transcribed Document [facility] [place] [address] [place] [address] ProviderPrasanth MD [address] [place] [address] Social History Tobacco Use Types Packs/Day Years Used Date Smoking Tobacco: Never Assessed Sex and Gender Information Value Date Recorded Sex Assigned at Not on file Legal Sex Male 6:49 PM CDT Gender Identity Not on file Sexual Orientation Not on file documented as of this encounter Miscellaneous Notes * Cerner Conversion Note - Prasanth ProviderMD - 11/06/2019 8:58 AM SIDING STAPLER Patient: SHIRA GARZA HORACIO Age: 84 years Sex: Male : 1935 Associated Diagnoses: None Author: CELESTINA RUIZ APRN [facility] CARDIOLOGY PROGRESS NOTE: DIAGNOSIS: 1. [...] Routine Weight, Kilograms: 92 kg (11/06/19 02:20:00) [place] Body Weight: 70 kg (11/04/19 21:29:00) Intake [...] s/p TAVR 10/29/2019 CAD s/p 5V CABG [facility] 09/2019 revealed patent grafts continue [...]
--- OUTSIDE RECORDS SUMMARY | 2025-08-15 11:58 | XMS_ITS | Encounter Summary ---
Author Organization [employer] ([place], [place], [place], [place], [place]) Address [address] [place] [address] Care Team Providers Care Public Area Attendant Name Role Phone Unavailable Primary Care Provider Unavailabl e Encounter Details Date Type Department Care Team (Late st Contact Info) Description 11/07/2019 Transcribed Document [facility] Family Medicine Count includes the [facility] [place] [address] ProviderPrasanth MD [address] [id number] Social History Tobacco Use Types Packs/Day Years Used Date Smoking Tobacco: Never Assessed Sex and Gender Information Value Date Recorded Sex Assigned at Not on file Legal Sex Male 6:49 PM CDT Gender Identity Not on file Sexual Orientation Not on file documented as of this encounter Miscellaneous Notes * Cerner Conversion Note - Prasanth Sanchez MD - 11/07/2019 4:54 PM GARAGE MANAGER DATE OF PROCEDURE: 11/07/2019 SURGEON: Dionicio Soliman [...] A [employer] lead model 2088, serial #[id number], was affixed to the right ventricular apex [...] candidate mid posterolateral vein. A [employer] sales lead model 1458, serial #[id number], was advanced to the distal aspect, and using an M3-M2 configuration, the capture threshold was 1.5 V with lead impedance of 930 ohms. The delivery system was removed in a standard fashion. Next, a [employer] sales lead model 2088, serial #[id number], was affixed to the right atrial appendage where the Q capture threshold was 0.5 V with lead impedance of 490 ohms, and sensed P-wave 2 mV. All leads were affixed to the prepectoralis fascia using interrupted 0 silk sutures around the retention collars. The pocket was irrigated with antibiotic solution. Hemostasis was achieved. A [employer] Medical pulse generator model AF3835, serial #[id number], was attached to the leads and placed [...] device clinic followup, and home remote monitoring. /[id number] Dionicio Soliman MD TCR/AQ / TCR / MODL /[id number] documented in this encounter Plan of Treatment Not on file documented as of this encounter Visit Diagnoses Not on filedocumented in this encounter
--- OUTSIDE RECORDS SUMMARY | 2025-08-15 11:58 | XMS_ITS | Encounter Summary ---
Author Organization [employer] ([place], [place], [place], [place], [place]) Address [address] [place] [address] Care Team Providers Care Environmental Services Assistant Name Role Phone Unavailable Primary Care Provider Unavailabl e Encounter Details Date Type Department Care Team (Late st Contact Info) Description 11/05/2019 Transcribed Document [facility] [place] [address] [place] [address] ProviderPrasanth MD [address] [place] [address] Social History Tobacco Use Types Packs/Day Years Used Date Smoking Tobacco: Never Assessed Sex and Gender Information Value Date Recorded Sex Assigned at Not on file Legal Sex Male 6:49 PM CDT Gender Identity Not on file Sexual Orientation Not on file documented as of this encounter Miscellaneous Notes * Cerner Conversion Note - Historical ProviderMD - 11/05/2019 8:00 AM AIR DEODORIZER SERVICER Consult Phone Call Documentation Entered On: 11/05/2019 8:22 EST Performed On: 11/05/2019 8:00 EST by Iris Banerjee, [facility] Unit Coord Phone Call for Consults Consult Phone Call/Page Attempt : First call Consult Reason : 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
--- OUTSIDE RECORDS SUMMARY | 2025-08-15 11:58 | XMS_ITS | Encounter Summary ---
Author Organization [employer] ([place], [place], [place], [place], [place]) Address [address] [place] [address] Care Team Providers Care Heritage Consultant Name Role Phone Unavailable Primary Care Provider Unavailabl e Encounter Details Date Type Department Care Team (Late st Contact Info) Description 11/05/2019 Transcribed Document [facility] Neurology - [address] [facility] [address] [place] [address] [place] [address] [place] [address] [address] [place] [address] Social History Tobacco Use Types [...]
--- OUTSIDE RECORDS SUMMARY | 2025-08-15 11:58 | XMS_ITS | Encounter Summary ---
Author Organization [employer] ([place], [place], [place], [place], [place]) Address [address] [place] [address] Care Team Providers Care Wedger Name Role Phone Unavailable Primary Care Provider Unavailabl e Encounter Details Date Type Department Care Team (Late st Contact Info) Description 11/05/[address] [facility] [place] Family [place] [address] [place] [address] ProviderPrasanth MD [address] [place] [address] Social History Tobacco Use Types Packs/Day Years Used Date Smoking Tobacco: Never Assessed Sex and Gender Information Value Date Recorded Sex Assigned at Not on file Legal Sex Male 6:49 PM CDT Gender Identity Not on file Sexual Orientation Not on file documented as of this encounter Miscellaneous Notes * Cerner Conversion Note - Historical ProviderMD - 11/05/2019 5:00 PM DIAMOND CLEANER Chart Check - Review Order Profile Entered On: 11/05/2019 17:41 EST Performed On: 11/05/2019 17:00 EST by MARIBELL MIMS RN Chart Check Powerplans Initiated/Discontinued as Appropriate : Yes MARIBELL MIMS RN - 11/05/2019 17:41 EST Electronically signed by Nikita [place] Conversion Obstetrics Gynecology Physician Cerner at 01/26/2023 8:55 PM CDT documented in this encounter Plan of Treatment Not on file documented as of this encounter Visit Diagnoses Not on filedocumented in this encounter
--- OUTSIDE RECORDS SUMMARY | 2025-08-15 11:58 | XMS_ITS | Encounter Summary ---
Author Organization [employer] ([place], [place], [place], [place], [place]) Address [address] [place] [address] Care Team Providers Care Head Of Digital Advertising & Integration Name Role Phone Unavailable Primary Care Provider Unavailabl e Encounter Details Date Type Department Care Team (Late st Contact Info) Description 11/06/2019 Transcribed Document [facility] [place] [address] [place] [address] ProviderPrasanth MD [address] [place] [address] Social History Tobacco Use Types Packs/Day Years Used Date Smoking Tobacco: Never Assessed Sex and Gender Information Value Date Recorded Sex Assigned at Not on file Legal Sex Male 6:49 PM CDT Gender Identity Not on file Sexual Orientation Not on file documented as of this encounter Miscellaneous Notes * Cerner Conversion Note - Historical ProviderMD - 11/06/2019 12:56 PM RESOURCE MANAGEMENT PLANNER Education-Surgery Entered On: 11/06/2019 16:00 EST Performed [...] - 11/06/2019 16:00 EST Electronically signed by Nikita [facility] Conversion Warehouse Receiver Cerner at 01/26/2023 8:56 PM CDT documented in this encounter Plan of Treatment Not on file documented as of this encounter Visit Diagnoses Not on filedocumented in this encounter
--- OUTSIDE RECORDS SUMMARY | 2025-08-15 11:58 | XMS_ITS | Encounter Summary ---
Author Organization [employer] ([place], [place], [place], [place], [place]) Address [address] [place] [address] Care Team Providers Care Trip Follower Name Role Phone Unavailable Primary Care Provider Unavailabl e Encounter Details Date Type Department Care Team (Late st Contact Info) Description 11/04/2019 Transcribed Document [facility] Neurology - [address] [facility] [address] [place] [address] [place] [address] [place] [address]. [facility] [address] [place] [address] Social History Tobacco Use Types [...] acute subdural hematoma in the right posterior islam area, just above the petrous bone. It [...] family was present when I saw him. /[id number] Titus Rasheed Jr, MD RDO/AQ / RDO / MODL /[id number] documented in this encounter Plan of Treatment Not on file documented as of this encounter Visit Diagnoses Not on filedocumented in this encounter
--- OUTSIDE RECORDS SUMMARY | 2025-08-15 11:58 | XMS_ITS | Encounter Summary ---
Author Organization [employer] ([place], [place], [place], [place], [place]) Address [address] [place] [address] Care Team Providers Care Social Services Aide Name Role Phone Unavailable Primary Care Provider Unavailabl e Encounter Details Date Type Department Care Team (Late st Contact Info) Description 11/06/2019 Transcribed Document [facility] [place] [address] [place] [address] ProviderPrasanth MD [address] [place] [address] Social History Tobacco Use Types Packs/Day Years Used Date Smoking Tobacco: Never Assessed Sex and Gender Information Value Date Recorded Sex Assigned at Not on file Legal Sex Male 6:49 PM CDT Gender Identity Not on file Sexual Orientation Not on file documented as of this encounter Miscellaneous Notes * Cerner Conversion Note - Prasanth ProviderMD - 11/06/2019 2:29 PM WOOD PILER Readmission Questionnaire Entered On: 11/06/2019 14:31 EST Performed On: 11/06/2019 14:29 EST by BINH SIDDIQI RN-Monument Letterer Readmission Questionnaire Information Obtained From : Patient [...] hematoma. 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 BINH SIDDIQI, RN-Monument Letterer - 11/06/2019 14:29 EST Electronically signed by [facility], [facility] Conversion Insurance Job Titles Cerner at 01/26/2023 8:55 PM CDT documented in this encounter Plan of Treatment Not on file documented as of this encounter Visit Diagnoses Not on filedocumented in this encounter
--- OUTSIDE RECORDS SUMMARY | 2025-08-15 11:58 | XMS_ITS | Encounter Summary ---
Author Organization [email or web address] ([place], [place], [place], [place], [place]) Address [address] [place] [address] Care Team Providers Care Regional Marketing Director Name Role Phone Unavailable Primary Care Provider Unavailabl e Encounter Details Date Type Department Care Team (Late st Contact Info) Description 11/06/2019 Transcribed Document [facility] [place] [address] [place] [address] ProviderPrasanth MD [address] [place] [address] Social History Tobacco Use Types Packs/Day Years Used Date Smoking Tobacco: Never Assessed Sex and Gender Information Value Date Recorded Sex Assigned at Not on file Legal Sex Male 6:49 PM CDT Gender Identity Not on file Sexual Orientation Not on file documented as of this encounter Miscellaneous Notes * Cerner Conversion Note - Historical ProviderMD - 11/06/2019 5:00 PM NUMEROLOGIST Chart Check - Review Order Profile Entered On: 11/06/2019 17:05 EST Performed On: 11/06/2019 17:00 EST by Lavonne Funez RN Chart Check Powerplans Initiated/Discontinued as Appropriate : Yes All Active Orders Reviewed : Yes Lavonen Funez RN - 11/06/2019 17:05 EST documented in this encounter Plan of Treatment Not on file documented as of this encounter Visit Diagnoses Not on filedocumented in this encounter
--- OUTSIDE RECORDS SUMMARY | 2025-08-15 11:58 | XMS_ITS | Encounter Summary ---
Author Organization [employer] ([place], [place], [place], [place], [place]) Address [address] [place] [address] Care Team Providers Care Automotive Light Mechanic Name Role Phone Unavailable Primary Care Provider Unavailabl e Encounter Details Date Type Department Care Team (Late st Contact Info) Description 11/05/2019 Transcribed Document [facility] [place] [address] [place] [address] ProviderPrasanth MD [address] [place] [address] Social History Tobacco Use Types Packs/Day Years Used Date Smoking Tobacco: Never Assessed Sex and Gender Information Value Date Recorded Sex Assigned at Not on file Legal Sex Male 6:49 PM CDT Gender Identity Not on file Sexual Orientation Not on file documented as of this encounter Miscellaneous Notes * Cerner Conversion Note - Historical ProviderMD - 11/05/2019 2:00 AM ORTHOPEDIC BRACE MAKER Tile Classifier Details Entered On: 11/05/2019 0:16 EST Performed [...] EST Electronically signed by Carla Shelton Conversion Manager Strategic Development Richard at 01/26/2023 8:59 PM CDT documented in this encounter Plan of Treatment Not on file documented as of this encounter Visit Diagnoses Not on filedocumented in this encounter
--- OUTSIDE RECORDS SUMMARY | 2025-08-15 11:58 | XMS_ITS | Encounter Summary ---
Author Organization [employer] ([place], [place], [place], [place], [place]) Address [address] [place] [address] Care Team Providers Care Business Consult Name Role Phone Unavailable Primary Care Provider Unavailabl e Encounter Details Date Type Department Care Team (Late st Contact Info) Description 11/05/2019 Transcribed Document [facility] [place] Family Medicine [address] [place] [address] ProviderPrasanth MD [address] [place] [address] Social History Tobacco Use Types Packs/Day Years Used Date Smoking Tobacco: Never Assessed Sex and Gender Information Value Date Recorded Sex Assigned at Not on file Legal Sex Male 6:49 PM CDT Gender Identity Not on file Sexual Orientation Not on file documented as of this encounter Miscellaneous Notes * Cerner Conversion Note - Historical ProviderMD - 11/05/2019 3:20 AM SCREEN CUTTER AND TRIMMER Height and Weight, Routine Entered On: 11/05/2019 3:21 EST Performed On: 11/05/2019 3:20 EST by Sal Hurt, Script CoordinatorHealth Unit Coord Height and Weight, Routine Routine Weight Source : Bed scale Routine Weight Entry Format : Metric Routine Weight, Kilograms : 93.1 kg(Converted to: 205 lb 4 oz) Routine Weight Calculation : 93.1 kg Height Source : Stated Height Entry Format : [place] Height, Feet : 5 ft Height, Inches : 9 Inch Clinical Height : 175.26 cm Body Surface Area (BSA), Routine : 2.09 m2 Body Mass Index (BMI), Routine : 30.31 kg/m2 Sal Hurt, Script Coordinator-Health Unit Coord - 11/05/2019 3:20 EST Electronically signed by Nikita [facility] Conversion Hand Bootmaker Cerner at 01/26/2023 8:58 PM CDT documented in this encounter Plan of Treatment Not on file documented as of this encounter Visit Diagnoses Not on filedocumented in this encounter
--- OUTSIDE RECORDS SUMMARY | 2025-08-15 11:59 | XMS_ITS | Encounter Summary ---
Author Organization [employer] ([place], [place], [place], [place], [place]) Address [address] [place] [address] Care Team Providers Care Retail Greeting Card Merchandiser Name Role Phone Unavailable Primary Care Provider Unavailabl e Encounter Details Date Type Department Care Team (Late st Contact Info) Description 11/04/2019 Transcribed Document [facility] Family Medicine [address] [place] [address] ProviderPrasanth MD [address] [place] [address] Social History Tobacco Use Types Packs/Day Years Used Date Smoking Tobacco: Never Assessed Sex and Gender Information Value Date Recorded Sex Assigned at Not on file Legal Sex Male 6:49 PM CDT Gender Identity Not on file Sexual Orientation Not on file documented as of this encounter Miscellaneous Notes * Cerner Conversion Note - Prasanth Sanchez MD - 11/04/2019 10:27 PM REMITTANCE CLERK DATE OF ADMISSION: 11/04/2019 PRIMARY CARE PHYSICIAN: Dr. Marcelino Caldera, [facility]. REFERRING PHYSICIAN: Dr. Beckman, [facility] , 1935. CURRENT COMPLAINT: Falls, [...] and his live in the [facility]. He enjoys physical activity as a [...] anticipate likely permanent pacemaker placement on 11/05. /[id number] MD RHIANNON Martínez/AQ / MGAmaury / MODL CC: Marcelino Waddles, MD NezaMD Michael Medley MD John Sartini Electronically signed by [facility] Conversion Paper Twister Cerner at 01/26/2023 8:53 PM CDT documented in this encounter Plan of Treatment Not on file documented as of this encounter Visit Diagnoses Not on filedocumented in this encounter
--- OUTSIDE RECORDS SUMMARY | 2025-08-15 11:59 | XMS_ITS | Clinical Summary ---
Author Organization [employer] ([place], [place], [place], [place], [place]) Address [address] [place] [address] Care Team Providers Care Attendant Lodging Facilities Name Role Phone Unavailable Primary Care Provider [...]
--- OUTSIDE RECORDS SUMMARY | 2025-08-15 11:59 | XMS_ITS | Encounter Summary ---
Author Organization [employer] ([place], [place], [place], [place], [place]) Address [address] [place] [address] Care Team Providers Care Bsw Name Role Phone Unavailable Primary Care Provider Unavailabl e Encounter Details Date Type Department Care Team (Late st Contact Info) Description 11/14/2018 Transcribed Document [facility] [place] Family Medicine [address] [place] [address] ProviderPrasanth MD [address] [place] [address] Social History Tobacco Use Types Packs/Day Years Used Date Smoking Tobacco: Never Assessed Sex and Gender Information Value Date Recorded Sex Assigned at Not on file Legal Sex Male 6:49 PM CDT Gender Identity Not on file Sexual Orientation Not on file documented as of this encounter Miscellaneous Notes * Cerner Conversion Note - Prasanth ProviderMD - 11/14/2018 7:10 AM KEYPUNCHER Pre Procedure Adult Entered On: 11/14/2018 7:19 EST Performed On: 11/14/2018 7:10 EST by RADHA TERRAZAS RN Height and Weight, Clinical Dosing Height Source : Stated Height Entry Format : Leonard Height, Feet : 0 ft(Converted to: 0 cm, 0 Inch) Height, Inches : 69 Inch(Converted to: 5 ft 9 Inch, 175.26 cm) Clinical Height : 175.26 cm Weight Source : Standing scale Weight Entry Format : Leonard Clinical Dosing Weight : 88.64 kg Weight, Pounds : 195 lb Body Surface Area (BSA) : 2.05 m2 Body Mass Index : 28.9 kg/m2 (HI) Vici Body Weight : 70 kg RADHA TERRAZAS RN - 11/14/2018 7:10 EST Health Histories Smoking Status : Former smoker, quit more than 30 days ago Smokeless Tobacco Status : Never RADHA TERRAZAS RN - 11/14/2018 7:10 EST Social History (As Of: 11/14/2018 07:19:17 EST) Tobacco: 3 cigs in evening- 1954- 2007. quit 2007. Smoking Status. (Last Updated: 11/14/2018 07:19:01 EST by RADHA TERRAZAS, RN) Alcohol: Alcohol Use History No. (Last [...] Admit : No Emergency Contact #1 : Bustamante - - cell - Emergency Contact #1 Phone Number : - Emergency Contact #1 Relationship : - Emergency Contact #2 : - Emergency Contact #2 Phone Number : - Emergency Contact #2 Relationship : - Primary Language : Chinese Communication Barrier : None RADHA TERRAZAS RN [...] RADHA TERRAZAS RN - 11/14/2018 7:10 EST Visnhu Scale Vishnu Sensory Perception : No impairment [...] Scale Risk Level : 0-24 Low Risk [employer] Fall Interventions : Wheels locked RADHA TERRAZAS [...] form. Electronically signed by Carla Shelton Conversion Auto Self Service Station Attendant Cerner at 01/26/2023 8:56 PM CDT documented in this encounter Plan of Treatment Not on file documented as of this encounter Visit Diagnoses Not on filedocumented in this encounter
--- OUTSIDE RECORDS SUMMARY | 2025-08-15 11:59 | XMS_ITS | Encounter Summary ---
Author Organization [employer] ([place], [place], [place], [place], [place]) Address [address] [place] [address] Care Team Providers Care Head Up Operator Name Role Phone Unavailable Primary Care Provider Unavailabl e Encounter Details Date Type Department Care Team (Late st Contact Info) Description 11/04/2019 Transcribed Document [facility] [place] [address] [place] [address] ProviderPrasanth MD [address] [place] [address] Social History Tobacco Use Types Packs/Day Years Used Date Smoking Tobacco: Never Assessed Sex and Gender Information Value Date Recorded Sex Assigned at Not on file Legal Sex Male 6:49 PM CDT Gender Identity Not on file Sexual Orientation Not on file documented as of this encounter Miscellaneous Notes * Cerner Conversion Note - Prasanth ProviderMD - 11/04/2019 7:33 PM MACHINE LACER ED Assessment Entered On: 11/04/2019 21:44 EST [...] Communication Barrier : None Primary Language : Wolof Any Spiritual/Cultural Needs or Requests : No [...] 21:37 EST Respiratory Respiratory Assessment WDL : [facility] MARIA TERESA KAT RN - 11/04/2019 21:37 [...]
--- OUTSIDE RECORDS SUMMARY | 2025-08-15 11:59 | XMS_ITS | Encounter Summary ---
Author Organization [employer] ([place], [place], [place], [place], [place]) Address [address] [place] [address] Care Team Providers Care Caramel Candy Maker Name Role Phone Unavailable Primary Care Provider Unavailabl e Encounter Details Date Type Department Care Team (Late st Contact Info) Description 10/30/2019 Transcribed Document [facility] [place] [address] [place] [address] ProviderPrasanth MD [address] [place] [address] Social History Tobacco Use Types Packs/Day Years Used Date Smoking Tobacco: Never Assessed Sex and Gender Information Value Date Recorded Sex Assigned at Not on file Legal Sex Male 6:49 PM CDT Gender Identity Not on file Sexual Orientation Not on file documented as of this encounter Miscellaneous Notes * Cerner Conversion Note - Prasanth ProviderMD - 10/30/2019 3:11 PM PASSENGER TRAIN BRAKER Final Discharge Planning Entered On: 10/30/2019 15:12 [...] : Yes Discharge To Care Management : Home/Residential/Halfway or Self Care - SABRINA ROSE RN-Care Management - 10/30/2019 15:11 EST Electronically signed by Nikita, [facility] Conversion Faucets Assembler Cerner at 01/26/2023 8:58 PM CDT documented in this encounter Plan of Treatment Not on file documented as of this encounter Visit Diagnoses Not on filedocumented in this encounter
--- OUTSIDE RECORDS SUMMARY | 2025-08-15 11:59 | XMS_ITS | Encounter Summary ---
Author Organization [employer] ([place], [place], [place], [place], [place]) Address [address] [place] [address] Care Team Providers Care Special Services Director Name Role Phone Unavailable Primary Care Provider Unavailabl e Encounter Details Date Type Department Care Team (Late st Contact Info) Description 09/11/2019 Transcribed Document [facility] [place] Family Medicine [address] [place] [address] ProviderPrasanth MD [address] [place] [address] Social History Tobacco Use Types Packs/Day Years Used Date Smoking Tobacco: Never Assessed Sex and Gender Information Value Date Recorded Sex Assigned at Not on file Legal Sex Male 6:49 PM CDT Gender Identity Not on file Sexual Orientation Not on file documented as of this encounter Miscellaneous Notes * Cerner Conversion Note - Prasanth Sanchez MD - 09/11/2019 11:55 AM LICENSING MANAGER DATE OF CONSULTATION: 09/11/2019 REASON FOR CONSULTATION: Evaluation of aortic stenosis. HISTORY OF PRESENT ILLNESS: Mr. 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 He also has undergone previous [...] Mr. Cormier and his and they understand. /[id number] Flaco Kyle IV, MD RDF/AQ / RDF / MODL /[id number] CC: Jason Easley MD Electronically signed by Nikita [facility] Recruiter Richard at 01/26/2023 9:01 PM CDT documented in this encounter Plan of Treatment Not on file documented as of this encounter Visit Diagnoses Not on filedocumented in this encounter
--- OUTSIDE RECORDS SUMMARY | 2025-08-15 11:59 | XMS_ITS | Encounter Summary ---
Author Organization [employer] ([place], [place], [place], [place], [place]) Address [address] [place] [address] Care Team Providers Care Salsa Dance Instructor Name Role Phone Unavailable Primary Care Provider Unavailabl e Encounter Details Date Type Department Care Team (Late st Contact Info) Description 10/30/2019 Transcribed Document [facility] Cardiology [address] [place] [address] Lee Ann Quinonez MD [address] [facility] [address] [place] [address] Social History Tobacco Use Types [...] None Author: LEE ANN QUINONEZ MD-CAR BASIC Logging Tractor Operator Swamp: Dr. Easley Subjective Post TAVR, doing well, ready for discharge home today. Health Status Current medications: (Selected) Inpatient Medications Ordered Ambien: 5 mg, Oral, At Bedtime, PRN: Sleep Artificial Tears ophthalmic solution: 1 Drop, Eyes Both, TID, PRN: Dry Eyes [employer] Saline 0.65% nasal solution: 1 [place], Nasal, Q4H, PRN: Congestion Dulcolax Laxative: 10 [...] (OCT 29 15:00) SBP H 152 (OCT 30:15) 116 (OCT 29 15:00) H 170 (OCT 29 11:00) DBP 77 (OCT 30 03:15) 69 (OCT 29 12:00) 87 (OCT 29 11:00) MAP 99 (OCT 30:) 79 (OCT 29 13:00) 121 (OCT 29 [...] Normal strength, No deformity. Integumentary: Warm, Dry, Platinum, No rash. Neurologic: Alert, Oriented, No focal [...]
--- OUTSIDE RECORDS SUMMARY | 2025-08-15 11:59 | XMS_ITS | Encounter Summary ---
Author Organization [employer] ([place], [place], [place], [place], [place]) Address [address] [place] [address] Care Team Providers Care Hvac Tech Name Role Phone Unavailable Primary Care Provider Unavailabl e Encounter Details Date Type Department Care Team (Late st Contact Info) Description 11/04/2019 Transcribed Document [facility] [place] Family Medicine [address] [place] [address] ProviderPrasanth MD [address] [place] [address] Social History Tobacco Use Types Packs/Day Years Used Date Smoking Tobacco: Never Assessed Sex and Gender Information Value Date Recorded Sex Assigned at Not on file Legal Sex Male 6:49 PM CDT Gender Identity Not on file Sexual Orientation Not on file documented as of this encounter Miscellaneous Notes * Cerner Conversion Note - Historical ProviderMD - 11/04/2019 9:17 PM PLATE MILL MILL HAND Consult Phone Call Documentation Entered On: 11/05/2019 8:19 EST Performed On: 11/04/2019 21:17 EST by Iris Banerjee [facility] Unit Coord Phone Call for Consults Consult Phone Call/Page Attempt : First call Consult Reason : traumatic subdural Physician Requesting Consult : RASHAUN FERRARI MD-INT Physician Requested for Consult : LESLY CHIANG MD-SNU Provider Service Notified Name : Neurosurgery Consult, Additional Information : called to office Iris Banerjee, [facility] Unit Coord - 11/05/2019 8:18 EST documented in this encounter Plan of Treatment Not on file documented as of this encounter Visit Diagnoses Not on filedocumented in this encounter
--- OUTSIDE RECORDS SUMMARY | 2025-08-15 11:59 | XMS_ITS | Encounter Summary ---
Author Organization [employer] ([place], [place], [place], [place], [place]) Address [address] [place] [address] Care Team Providers Care Obstetrician/Gynecologist Name Role Phone Unavailable Primary Care Provider Unavailabl e Encounter Details Date Type Department Care Team (Late st Contact Info) Description 08/04/2020 Transcribed Document [facility] [place] [address] [place] [address] ProviderPrasanth MD [address] [place] [address] Social History Tobacco Use Types [...] at that time. The patient presented to [facility] on 08[facility]03 with complaints of midsternal sharp chest pain, radiating in nature to bilateral arms and jaws. He had associated shortness of breath, worsened with exertion. He took a total of 4 nitroglycerin over 45 minutes without relief. CTA revealed gallstones, punctate calcifications throughout the pancreas, bilateral adrenal adenomas, nonobstructing right renal stones, no pulmonary emboli. The patient was transferred to [facility] for higher level of care and [...] CAD/ prior 5V CABG optimize medical management [facility] 09/2019 revealed patent grafts Thrombosed aortic [...]
--- OUTSIDE RECORDS SUMMARY | 2025-08-15 11:59 | XMS_ITS | Encounter Summary ---
Author Organization [employer] ([place], [place], [place], [place], [place]) Address [address] [place] [address] Care Team Providers Care Catcher Plug Name Role Phone Unavailable Primary Care Provider Unavailabl e Encounter Details Date Type Department Care Team (Late st Contact Info) Description 09/11/2019 Transcribed Document [facility] [place] Family Medicine [address] [place] [address] ProviderPrasanth MD [address] [place] [address] Social History Tobacco Use Types Packs/Day Years Used Date Smoking Tobacco: Never Assessed Sex and Gender Information Value Date Recorded Sex Assigned at Not on file Legal Sex Male 6:49 PM CDT Gender Identity Not on file Sexual Orientation Not on file documented as of this encounter Miscellaneous Notes * Cerner Conversion Note - Historical ProviderMD - 09/11/2019 11:21 AM TUBE PULLER Event Note Entered On: 09/11/2019 11:22 EST Performed On: 09/11/2019 11:21 EST by AV KING RN Event Note Event Date/Time : 09/11/2019 11:05 EST Description of Event : Patient has completed appropriate bed rest of 2 hours, he has walked and ready for discharge. Awaiting Dr Kyle to [facility] on Patient AV KING RN - 09/11/2019 11:21 EST Electronically signed by Nikita [facility] Conversion Occupational Health Manager Cerner at 01/26/2023 8:57 PM CDT documented in this encounter Plan of Treatment Not on file documented as of this encounter Visit Diagnoses Not on filedocumented in this encounter
--- OUTSIDE RECORDS SUMMARY | 2025-08-15 11:59 | XMS_ITS | Encounter Summary ---
Author Organization [employer] ([place], [place], [place], [place], [place]) Address [address] [place] [address] Care Team Providers Care Director Blood Bank Name Role Phone Unavailable Primary Care Provider Unavailabl e Encounter Details Date Type Department Care Team (Late st Contact Info) Description 06/02/2021 Transcribed Document [facility] [place] Family Medicine [address] [place] [address] ProviderPrasanth MD [address] [place] [address] Social History Tobacco Use Types [...] integrated, provides little strength/resource Active in a Anabaptist/Kirtsen Group : No Mandaeism Preference : No mormonism Dean Palmer Chaplain-Non Cert - 06/02/2021 20:52 EDT Spiritual Assessment Patient's Community/Relationship : Strength in patient's life Supportive Mandaeism Community : No Spirital Assessment Comment/Summary Report : SPIRITUAL ASSESSMENT COMMENT/SUMMARY No qualifying data available. Dean Palmer Chaplain-Non Cert - 06/02/2021 20:52 EDT Interventions Advance Directive Information Provided : No Emotional Support : Empathic/Engaged listening, Established trust, Information provided Spiritual and Mandaeism : Verify kirsten group connection, Spiritual/Mandaeism life explored Dean Palmer, Applied Mathematician-Non Cert - 06/02/2021 20:52 EDT Electronically signed by Nikita, [facility] Conversion Security Support Analyst Cerner at 01/26/2023 9:10 PM CDT documented in this encounter Plan of Treatment Not on file documented as of this encounter Visit Diagnoses Not on filedocumented in this encounter
--- OUTSIDE RECORDS SUMMARY | 2025-08-15 11:59 | XMS_ITS | Encounter Summary ---
Author Organization [employer] ([place], [place], [place], [place], [place]) Address [address] [place] [address] Care Team Providers Care Director Software Name Role Phone Unavailable Primary Care Provider Unavailabl e Encounter Details Date Type Department Care Team (Late st Contact Info) Description 10/30/2019 Transcribed Document [facility] [place] [address] [place] [address] ProviderPrasanth MD [address] [place] [address] Social History Tobacco Use Types Packs/Day Years Used Date Smoking Tobacco: Never Assessed Sex and Gender Information Value Date Recorded Sex Assigned at Not on file Legal Sex Male 6:49 PM CDT Gender Identity Not on file Sexual Orientation Not on file documented as of this encounter Miscellaneous Notes * Cerner Conversion Note - Prasanth ProviderMD - 10/30/2019 11:30 AM OIL TESTER Initial Discharge Planning Entered On: 10/30/2019 11:32 EST Performed On: 10/30/2019 11:30 EST by JAIMEE CARTAGENA Fern Gatherer-Computer Repairer Initial Assessment I Previously Documented Living Environment : No qualifying data available. JAIMEE CARTAGENA Fern Gatherer-Computer Repairer - 10/30/2019 11:32 EST Living Situation : Home Patient Lives With : Spouse Emergency Contact #1 : Rosa Elena Bustamante Emergency Contact #1 Emergency Contact #1 Relationship : Emergency Contact #2 : na Emergency Contact #2 Phone Number : na Emergency Contact #2 Relationship : na Enter Doctors Name : Marcelino Amitajuan Does Patient have PCP Listed? : Yes Legal Guardian : No JAIMEE CARTAGENA Fern Gatherer-Computer Repairer - 10/30/2019 11:30 EST Initial Assessment II Sensory and Motor Deficits : None Current Home Treatments and Equipment : None JAIMEE CARTAGENA Fern Gatherer-Computer Repairer - 10/30/2019 11:30 EST Discharge Needs I Anticipated Discharge To, CM : Home independently Current Home Treatment/Equipment : Current Home Treatment/Equipment No qualifying data available. Post Acute/Home Treatments : None Documentation Status Complete : Yes JAIMEE CARTAGENA Fern Gatherer-Computer Repairer - 10/30/2019 11:30 EST Discharge Needs II Professional Skilled Services : Professional Skilled Services No qualifying data available. Needs Assistance with Transportation : No Discharge Options Discussed with Patient : Discharge transportation, DME, Home Health JAIMEE CARTAGENA Fern Gatherer-Computer Repairer - 10/30/2019 11:30 EST Narrative Note Narrative Note : Patient is a low readmission risk of 31. Patient denied ever having HH or SNF services. Patient reported that he is independent with ADLs. He reported that he does not anticipate having any discharge needs. CM will continue to follow for discharge needs. JAIMEE CARTAGENA Fern Gatherer-Computer Repairer - 10/30/2019 11:32 EST Electronically signed by Carla Shelton Conversion Location And Measurement Technician Cerner at 01/26/2023 9:08 PM CDT documented in this encounter Plan of Treatment Not on file documented as of this encounter Visit Diagnoses Not on filedocumented in this encounter
--- OUTSIDE RECORDS SUMMARY | 2025-08-15 11:59 | XMS_ITS | Encounter Summary ---
Author Organization [employer] ([place], [place], [place], [place], [place]) Address [address] [place] [address] Care Team Providers Care Drain Technician Name Role Phone Unavailable Primary Care Provider Unavailabl e Encounter Details Date Type Department Care Team (Late st Contact Info) Description 08/04/2020 Transcribed Document [facility] [place] Family Medicine [address] [place] [address] ProviderPrasanth MD [address] [place] [address] Social History Tobacco Use Types [...] Learning Style Preferences Family : None Tish Calvillo, Lali - 08/04/2020 20:28 EDT Electronically signed by Nikita [facility] Conversion Operations [employer]man Cerner at 01/26/2023 9:05 PM CDT documented in this encounter Plan of Treatment Not on file documented as of this encounter Visit Diagnoses Not on filedocumented in this encounter
--- OUTSIDE RECORDS SUMMARY | 2025-08-15 11:59 | XMS_ITS | Encounter Summary ---
Author Organization [employer] ([place], [place], [place], [place], [place]) Address [address] [place] [address] Care Team Providers Care Day Care Assistant Name Role Phone Unavailable Primary Care Provider Unavailabl e Encounter Details Date Type Department Care Team (Late st Contact Info) Description 06/02/2021 Transcribed Document [facility] [place] Family Medicine [address] [place] [address] ProviderPrasanth MD [address] [place] [address] Social History Tobacco Use Types [...] information. No nutrition dx at this time. plating technician to rescreen in 7-10 days. Nanette Moreno Diet Technician - 06/03/2021 11:22 EDT documented in this encounter Plan of Treatment Not on file documented as of this encounter Visit Diagnoses Not on filedocumented in this encounter
--- OUTSIDE RECORDS SUMMARY | 2025-08-15 11:59 | XMS_ITS | Encounter Summary ---
Author Organization [employer] ([place], [place], [place], [place], [place]) Address [address] [place] [address] Care Team Providers Care Social Science Manager Name Role Phone Unavailable Primary Care Provider Unavailabl e Encounter Details Date Type Department Care Team (Late st Contact Info) Description 09/11/2019 Transcribed Document [facility] [place] Family Medicine [address] [place] [address] ProviderPrasanth MD [address] [place] [address] Social History Tobacco Use Types Packs/Day Years Used Date Smoking Tobacco: Never Assessed Sex and Gender Information Value Date Recorded Sex Assigned at Not on file Legal Sex Male 6:49 PM CDT Gender Identity Not on file Sexual Orientation Not on file documented as of this encounter Miscellaneous Notes * Cerner Conversion Note - Prasanth ProviderMD - 09/11/2019 11:52 AM MELTING SUPERVISOR Nursing Discharge Summary Entered On: 09/11/2019 11:52 [...] 11:52 EST Electronically signed by Nikita [facility] Conversion Sales Operations Coordinator Cerner at 01/26/2023 8:50 PM CDT documented in this encounter Plan of Treatment Not on file documented as of this encounter Visit Diagnoses Not on filedocumented in this encounter
--- OUTSIDE RECORDS SUMMARY | 2025-08-15 11:59 | XMS_ITS | Encounter Summary ---
Author Organization [employer] ([place], [place], [place], [place], [place]) Address [address] [place] [address] Care Team Providers Care Medical Esthetician Name Role Phone Unavailable Primary Care Provider Unavailabl e Encounter Details Date Type Department Care Team (Late st Contact Info) Description 10/30/2019 Transcribed Document [facility] [place] [address] [place] [address] ProviderPrasanth MD [address] [place] [address] Social History Tobacco Use Types Packs/Day Years Used Date Smoking Tobacco: Never Assessed Sex and Gender Information Value Date Recorded Sex Assigned at Not on file Legal Sex Male 6:49 PM CDT Gender Identity Not on file Sexual Orientation Not on file documented as of this encounter Miscellaneous Notes * [employer]ner Conversion Note - Historical ProviderMD - 10/30/2019 2:00 AM SENIOR SALES ASSOCIATE Bookkeeping Clerk Details Entered On: 10/30/2019 4:47 EST Performed [...]
--- OUTSIDE RECORDS SUMMARY | 2025-08-15 11:59 | XMS_ITS | Encounter Summary ---
Author Organization [employer] ([place], [place], [place], [place], [place]) Address [address] [place] [address] Care Team Providers Care Frog Shaker Name Role Phone Unavailable Primary Care Provider Unavailabl e Encounter Details Date Type Department Care Team (Late st Contact Info) Description 10/29/2019 Transcribed Document [facility] [place] [facility] [place] [address] ProviderPrasanth MD [address] [place] [address] Social History Tobacco Use Types Packs/Day Years Used Date Smoking Tobacco: Never Assessed Sex and Gender Information Value Date Recorded Sex Assigned at Not on file Legal Sex Male 6:49 PM CDT Gender Identity Not on file Sexual Orientation Not on file documented as of this encounter Miscellaneous Notes * Cerner Conversion Note - Prasanth ProviderMD - 10/29/2019 6:00 AM COMMUNICATIONS EXECUTIVE Patient: SHIRA GARZA HORACIO Age: 84 years [...] All Problems Wears glasses / SNOMED CT 025052571 / Confirmed Right bundle branch block / SNOMED CT 47885559 / Confirmed Renal calculus / SNOMED CT 032672395 / Confirmed Hypertension / SNOMED CT 39600984 / Confirmed Hyperlipidemia / SNOMED CT 65213081 / Confirmed Shortness of breath / SNOMED CT 934346214 / Confirmed CAD (coronary artery disease) / SNOMED CT 43944313 / Confirmed 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 Integumentary: Warm, Dry, [place]. Neurologic: Alert, Oriented. Psychiatric: Cooperative, Appropriate mood [...]
--- OUTSIDE RECORDS SUMMARY | 2025-08-15 11:59 | XMS_ITS | Encounter Summary ---
Author Organization [employer] ([place], [place], [place], [place], [place]) Address [address] [place] [address] Care Team Providers Care Dietary Aid Name Role Phone Unavailable Primary Care Provider Unavailabl e Encounter Details Date Type Department Care Team (Late st Contact Info) Description 10/30/2019 Transcribed Document [facility] [place] Family Medicine [address] [place] [address] ProviderPrasanth MD [address] [place] [address] Social History Tobacco Use Types Packs/Day Years Used Date Smoking Tobacco: Never Assessed Sex and Gender Information Value Date Recorded Sex Assigned at Not on file Legal Sex Male 6:49 PM CDT Gender Identity Not on file Sexual Orientation Not on file documented as of this encounter Miscellaneous Notes * Cerner Conversion Note - Prasanth Sanchez MD - 10/30/2019 12:20 PM RN HOME HEALTH Patient Education Materials Follows: Groin Site Care [...] Document Reviewed: 10/29/2011 ExitCare? Patient Information ?2013 [employer]. documented in this encounter Plan of Treatment Not on file documented as of this encounter Visit Diagnoses Not on filedocumented in this encounter
--- OUTSIDE RECORDS SUMMARY | 2025-08-15 11:59 | XMS_ITS | Encounter Summary ---
Author Organization [employer] ([place], [place], [place], [place], [place]) Address [address] [place] [address] Care Team Providers Care Injection Maintenance Technician Name Role Phone Unavailable Primary Care Provider Unavailabl e Encounter Details Date Type Department Care Team (Late st Contact Info) Description 11/04/2019 Transcribed Document [facility] [place] Family Medicine [address] [place] [address] ProviderPrasanth MD [address] [place] [address] Social History Tobacco Use Types Packs/Day Years Used Date Smoking Tobacco: Never Assessed Sex and Gender Information Value Date Recorded Sex Assigned at Not on file Legal Sex Male 6:49 PM CDT Gender Identity Not on file Sexual Orientation Not on file documented as of this encounter Miscellaneous Notes * Cerner Conversion Note - Prasanth ProviderMD - 11/04/2019 10:58 PM CREDIT RISK ANALYST ED Event Note Entered On: 11/04/2019 22:59 [...]
--- OUTSIDE RECORDS SUMMARY | 2025-08-15 11:59 | XMS_ITS | Encounter Summary ---
Author Organization [employer] ([place], [place], [place], [place], [place]) Address [address] [place] [address] Care Team Providers Care Pulp And Paper Tester Name Role Phone Unavailable Primary Care Provider Unavailabl e Encounter Details Date Type Department Care Team (Late st Contact Info) Description 11/06/2019 Transcribed Document [facility] [place] Family Medicine [address] [place] [address] ProviderPrasanth MD [address] [place] [address] Social History Tobacco Use Types Packs/Day Years Used Date Smoking Tobacco: Never Assessed Sex and Gender Information Value Date Recorded Sex Assigned at Not on file Legal Sex Male 6:49 PM CDT Gender Identity Not on file Sexual Orientation Not on file documented as of this encounter Miscellaneous Notes * Cerner Conversion Note - Prasanth ProviderMD - 11/06/2019 2:25 PM APPLIED PSYCHOLOGY CHAIR Initial Discharge Planning Entered On: 11/06/2019 14:29 EST Performed On: 11/06/2019 14:25 EST by BINH SIDDIQI, RN-Weather Strip Installer Initial Assessment I Previously Documented Living Environment [...] Listed? : Yes Medical Durable Power of Dry Cans Operator Name : Legal Guardian : No Is Guardianship Needed : No BINH SIDDIQI, RN-Weather Strip Installer - 11/06/2019 14:25 EST Initial Assessment II Sensory and Motor Deficits : None, Weakness Current Home Treatments and Equipment : None Does the Patient have a Floor to SNF Benefit? : Yes BINH SIDDIQI, RN-Weather Strip Installer - 11/06/2019 14:25 EST Discharge Needs I Anticipated Discharge Date : 11/08/2019 EST Anticipated Discharge To, CM : Home with home health Current Home Treatment/Equipment : Current Home Treatment/Equipment Current Home Treatments and Equipment: None (11/05/19 17:51:00) Post Acute/Home Treatments : None Documentation Status Complete : Yes BINH SIDDIQI, RN-Weather Strip Installer - 11/06/2019 14:25 EST Discharge Needs II Professional Skilled Services : Professional Skilled Services No qualifying data available. Needs Assistance with Transportation : No Discharge Options Discussed with Patient : Home Health BINH SIDDIQI, RN-Weather Strip Installer - 11/06/2019 14:25 EST Narrative Note Narrative [...] and assist w/needs as approp. ROSANA CALLEJAS, RN-Weather Strip Installer - 11/05/19 17:54:15 BINH SIDDIQI, RN-Weather Strip Installer - 11/06/2019 14:25 EST Electronically signed by Nikita [facility] Conversion Copy Chief Cerner at 01/26/2023 9:08 PM CDT documented in this encounter Plan of Treatment Not on file documented as of this encounter Visit Diagnoses Not on filedocumented in this encounter
--- OUTSIDE RECORDS SUMMARY | 2025-08-15 11:59 | XMS_ITS | Encounter Summary ---
Author Organization [employer] ([place], [place], [place], [place], [place]) Address [address] [place] [address] Care Team Providers Care Processing Engineer Name Role Phone Unavailable Primary Care Provider Unavailabl e Encounter Details Date Type Department Care Team (Late st Contact Info) Description 11/04/2019 Transcribed Document [facility] [place] [facility] [place] [address] ProviderPrasanth MD [address] [place] [address] Social History Tobacco Use Types Packs/Day Years Used Date Smoking Tobacco: Never Assessed Sex and Gender Information Value Date Recorded Sex Assigned at Not on file Legal Sex Male 6:49 PM CDT Gender Identity Not on file Sexual Orientation Not on file documented as of this encounter Miscellaneous Notes * Cerner Conversion Note - Prasanth ProviderMD - 11/04/2019 7:33 PM HEATING AND VENTILATING TENDER ED Triage Entered On: 11/04/2019 19:42 EST [...] : 2 - Emergent Tracking Group : [facility] ED RADHA COVINGTON Rn - [...] 19:42:51 EST) Problems(Active) Aortic stenosis (SNOMED CT :841793447 ) Name of Problem: Aortic stenosis ; Recorder: RADHA TERRAZAS RN; Confirmation: Confirmed ; Classification: Patient Stated ; Code: 428031647 ; Contributor System: Ku6 ; Last Updated: 11/14/2018 7:27 EST ; Life Cycle Date: 11/14/2018 ; Life Cycle Status: Active ; Vocabulary: SNOMED CT At risk for sleep apnea (IMO :10091844 ) Name of Problem: At risk for sleep apnea ; Recorder: SYSTEM, SYSTEM; Confirmation: Confirmed ; Classification: Medical ; Code: 30365134 ; Last Updated: 11/14/2018 7:19 EST ; Life Cycle Date: 11/14/2018 ; Life Cycle Status: Active ; Vocabulary: IMO Atrial flutter (SNOMED CT :3660076 ) Name of Problem: Atrial flutter ; Recorder: RADHA TERRAZAS RN; Confirmation: Confirmed ; Classification: Patient Stated ; Code: 5104320 ; Contributor System: Lodo SoftwareChart ; Last Updated: 11/14/2018 7:26 EST ; Life Cycle Date: 11/14/2018 ; Life Cycle Status: Active ; Vocabulary: SNOMED CT Benign neoplastic disease (SNOMED CT :46085490 ) Name of Problem: Benign neoplastic disease ; Recorder: AV KING RN; Confirmation: Confirmed ; Classification: Patient Stated ; Code: 42831659 ; Contributor System: PowerChart ; Last Updated: 09/11/2019 7:15 EST ; Life Cycle Date: 09/11/2019 ; Life Cycle Status: Active ; Vocabulary: SNOMED CT CAD (coronary artery disease) (SNOMED CT :14060857 ) Name of Problem: CAD (coronary artery disease) ; Recorder: RADHA TERRAZAS RN; Confirmation: Confirmed ; Classification: Patient Stated ; Code: 27106157 ; Contributor System: PowerChart ; Last Updated: 11/14/2018 7:27 EST ; Life Cycle Date: 11/14/2018 ; Life Cycle Status: Active ; Vocabulary: SNOMED CT Hyperlipidemia (SNOMED CT :80920367 ) Name of Problem: Hyperlipidemia ; Recorder: AV KING RN; Confirmation: Confirmed ; Classification: Patient Stated ; Code: 24926718 ; Contributor System: PowerChart ; Last Updated: 09/11/2019 6:25 EST ; Life Cycle Date: 09/11/2019 ; Life Cycle Status: Active ; Vocabulary: SNOMED CT Hypertension (SNOMED CT :16438761 ) Name of Problem: Hypertension ; Recorder: HILDA ANTHONY RN; Confirmation: Confirmed ; Classification: Medical ; Code: 14339519 ; Contributor System: PowerChart ; Last Updated: 10/26/2019 9:33 EST ; Life Cycle Date: 10/26/2019 ; Life Cycle Status: Active ; Vocabulary: SNOMED CT Renal calculus (SNOMED CT :531864849 ) Name of Problem: Renal calculus ; Recorder: RADHA TERRAZAS RN; Confirmation: Confirmed ; Classification: Patient Stated ; Code: 802042805 ; Contributor System: PowerChart ; Last Updated: 11/14/2018 7:30 EST ; Life Cycle Date: 11/14/2018 ; Life Cycle Status: Active ; Vocabulary: SNOMED CT Right bundle branch block (SNOMED CT :85242285 ) Name of Problem: Right bundle branch block ; Recorder: AV KING RN; Confirmation: Confirmed ; Classification: Patient Stated ; Code: 55809657 ; Contributor System: Lodo SoftwareChart ; Last Updated: 09/11/2019 7:12 EST ; Life Cycle Date: 09/11/2019 ; Life Cycle Status: Active ; Vocabulary: SNOMED CT Shortness of breath (SNOMED CT :116535648 ) Name of Problem: Shortness of breath ; Recorder: HILDA ANTHONY RN; Confirmation: Confirmed ; Classification: Medical ; Code: 335797268 ; Contributor System: Ku6 ; Last Updated: 10/26/2019 9:34 EST ; Life Cycle Date: 10/26/2019 ; Life Cycle Status: Active ; Vocabulary: SNOMED CT Wears glasses (SNOMED CT :286050971 ) Name of Problem: Wears glasses ; Recorder: HILDA ANTHONY RN; Confirmation: Confirmed ; Classification: Medical ; Code: 588937398 ; Contributor System: Ku6 ; Last Updated: 10/26/2019 9:32 EST ; Life Cycle Date: 10/26/2019 ; Life Cycle Status: Active ; Vocabulary: SNOMED CT Diagnoses(Active) Dizziness Date: 11/04/2019 ; Diagnosis Type: Reason For Visit ; Confirmation: Complaint of ; Clinical Dx: Dizziness ; Classification: Medical ; Clinical Service: Emergency medicine ; Code: PNED ; Probability: 0 ; Diagnosis Code: [id number] ED Height and Weight Height Source : Stated Height Entry Format : Marcus Height, Feet : 5 ft(Converted to: 152 cm, 60 Inch) Height, Inches : 9 Inch(Converted to: 0 ft 9 Inch, 22.86 cm) Clinical Height : 175.26 cm Weight Source, ED : Critical estimated dosing weight Weight Entry Format : Marcus Weight, Pounds : 195 lb Clinical Dosing Weight : 88.64 kg Body Surface Area (BSA) : 2.05 m2 Body Mass Index : 28.9 kg/m2 (HI) [place] Body Weight (IBW) : 69.73 kg RADHA [...]
--- OUTSIDE RECORDS SUMMARY | 2025-08-15 11:59 | XMS_ITS | Encounter Summary ---
Author Organization [employer] ([place], [place], [place], [place], [place]) Address [address] [place] [address] Care Team Providers Care Live Out Nanny Name Role Phone Unavailable Primary Care Provider Unavailabl e Encounter Details Date Type Department Care Team (Late st Contact Info) Description 09/11/2019 Transcribed Document [facility] [place] Family Medicine [address] [place] [address] ProviderPrasanth MD [address] [place] [address] Social History Tobacco Use Types Packs/Day Years Used Date Smoking Tobacco: Never Assessed Sex and Gender Information Value Date Recorded Sex Assigned at Not on file Legal Sex Male 6:49 PM CDT Gender Identity Not on file Sexual Orientation Not on file documented as of this encounter Miscellaneous Notes * Cerner Conversion Note - Historical ProviderMD - 09/11/2019 12:14 PM FINE GRADE BULLDOZER OPERATOR Event Note Entered On: 09/11/2019 12:17 EST [...] 09/11/2019 12:14 EST Electronically signed by Nikita [facility] Conversion Group Worker Cerner at 01/26/2023 9:01 PM CDT documented in this encounter Plan of Treatment Not on file documented as of this encounter Visit Diagnoses Not on filedocumented in this encounter
--- OUTSIDE RECORDS SUMMARY | 2025-08-15 11:59 | XMS_ITS | Encounter Summary ---
Author Organization [employer] ([place], [place], [place], [place], [place]) Address [address] [place] [address] Care Team Providers Care Cleaning And Maintenance Worker Name Role Phone Unavailable Primary Care Provider Unavailabl e Encounter Details Date Type Department Care Team (Late st Contact Info) Description 06/02/2021 Transcribed Document [facility] [place] Family Medicine [facility] [place] [address] ProviderPrasanth MD [address] [place] [address] Social History Tobacco Use Types [...] continuous telemetry monitoring - No plans for [facility] at this time - Continue medical [...]
--- OUTSIDE RECORDS SUMMARY | 2025-08-15 11:59 | XMS_ITS | Encounter Summary ---
Author Organization [employer] ([place], [place], [place], [place], [place]) Address [address] [place] [address] Care Team Providers Care Product Support Consultant Name Role Phone Unavailable Primary Care Provider Unavailabl e Encounter Details Date Type Department Care Team (Late st Contact Info) Description 11/04/2019 Transcribed Document [facility] [place] Family Medicine [address] [place] [address] ProviderPrasanth MD [address] [place] [...] - Historical ProviderMD - 11/04/2019 7:33 PM PHOTOCOPYING EQUIPMENT MECHANIC [place] Suicide Severity Rating Scale (C-SSRS) Entered On: 11/04/2019 21:44 EST Performed On: 11/04/2019 21:37 EST by MARIA TERESA KAT RN [place] Suicide Severity Rating Scale (C-SSRS) CSSRS Past [...]
--- OUTSIDE RECORDS SUMMARY | 2025-08-15 11:59 | XMS_ITS | Encounter Summary ---
Author Organization [employer] ([place], [place], [place], [place], [place]) Address [address] [place] [address] Care Team Providers Care Taxation Inspector Name Role Phone Unavailable Primary Care Provider Unavailabl e Encounter Details Date Type Department Care Team (Late st Contact Info) Description 11/04/2019 Transcribed Document [place] [facility] Neurology - [address] [facility] [address] [place] [address] Lesly Chiang Jr., MD [address] [place] [address] [address] [place] [address] Social History Tobacco Use Types [...]
--- OUTSIDE RECORDS SUMMARY | 2025-08-15 11:59 | XMS_ITS | Encounter Summary ---
Author Organization [employer] ([place], [place], [place], [place], [place]) Address [address] [place] [address] Care Team Providers Care Toy Painter Name Role Phone Unavailable Primary Care Provider Unavailabl e Encounter Details Date Type Department Care Team (Late st Contact Info) Description 09/11/2019 Transcribed Document [facility] [place] [address] [place] [address] ProviderPrasanth MD [address] [place] [address] Social History Tobacco Use Types Packs/Day Years Used Date Smoking Tobacco: Never Assessed Sex and Gender Information Value Date Recorded Sex Assigned at Not on file Legal Sex Male 6:49 PM CDT Gender Identity Not on file Sexual Orientation Not on file documented as of this encounter Miscellaneous Notes * Cerner Conversion Note - Historical ProviderMD - 09/11/2019 9:20 AM DIGITAL MARKETING EXECUTIVE Event Note Entered On: 09/11/2019 9:24 EST Performed On: 09/11/2019 9:20 EST by AV KING RN Event Note Event Date/Time : 09/11/2019 9:00 EST Description of Event : 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
--- OUTSIDE RECORDS SUMMARY | 2025-08-15 11:59 | XMS_ITS | Encounter Summary ---
Author Organization [employer] ([place], [place], [place], [place], [place]) Address [address] [place] [address] Care Team Providers Care Graduate Recruiter Name Role Phone Unavailable Primary Care Provider Unavailabl e Encounter Details Date Type Department Care Team (Late st Contact Info) Description 10/30/2019 Transcribed Document [facility] [place] Family Medicine [address] [place] [address] ProviderPrasanth MD [address] [place], [place] [id number] Social History Tobacco Use Types Packs/Day Years Used Date Smoking Tobacco: Never Assessed Sex and Gender Information Value Date Recorded Sex Assigned at Not on file Legal Sex Male 6:49 PM CDT Gender Identity Not on file Sexual Orientation Not on file documented as of this encounter Miscellaneous Notes * Cerner Conversion Note - Historical ProviderMD - 10/30/2019 8:23 AM PLANT TECHNICIAN/CONTROL ROOM OPERATOR UM Authorization Entered On: 10/30/2019 8:23 EST Performed On: 10/30/2019 8:23 EST by ENDER LOMBARDO RN Primary Insurance Authorization Authorization and Policy Numbers : Insurance 1 Health Plan: MEDICARE Policy Number: [id number] Authorization Number: Insurance 2 Health Plan: AARP N Policy Number: [id number] Authorization Number: Insurance Primary Name : MEDICARE Policy Number: [id number] Historical Authorization Comments-Primary : No Authorization Comments Found ENDER LOMBARDO RN - 10/30/2019 8:23 EST documented in this encounter Plan of Treatment Not on file documented as of this encounter Visit Diagnoses Not on filedocumented in this encounter
--- OUTSIDE RECORDS SUMMARY | 2025-08-15 11:59 | XMS_ITS | Encounter Summary ---
Author Organization [employer] ([place], [place], [place], [place], [place]) Address [address] [place] [address] Care Team Providers Care School Teacher Name Role Phone Unavailable Primary Care Provider Unavailabl e Encounter Details Date Type Department Care Team (Late st Contact Info) Description 10/30/2019 Transcribed Document [facility] Family Medicine [address] [place] [address] ProviderPrasanth MD [address] [place] [address] Social History Tobacco Use Types Packs/Day Years Used Date Smoking Tobacco: Never Assessed Sex and Gender Information Value Date Recorded Sex Assigned at Not on file Legal Sex Male 6:49 PM CDT Gender Identity Not on file Sexual Orientation Not on file documented as of this encounter Miscellaneous Notes * Cerner Conversion Note - Historical ProviderMD - 10/30/2019 12:20 PM CHIEF VENDOR QUALITY Stroke/Warfarin Instructions Entered On: 10/30/2019 12:20 EST Performed On: 10/30/2019 12:20 EST by Jason [place], RN Stroke/Warfarin Instructions Stroke/TIA Discharge Ins : N/A Warfarin Discharge Ins : N/A Jason [place] RN - 10/30/2019 12:20 EST Electronically signed by Nikita [facility] Conversion Library Technician Cerner at 01/26/2023 9:10 PM CDT documented in this encounter Plan of Treatment Not on file documented as of this encounter Visit Diagnoses Not on filedocumented in this encounter
--- OUTSIDE RECORDS SUMMARY | 2025-08-15 11:59 | XMS_ITS | Encounter Summary ---
Author Organization [employer] ([place], [place], [place], [place], [place]) Address [address] [place] [address] Care Team Providers Care Cigar Packer And Shader Name Role Phone Unavailable Primary Care Provider Unavailabl e Encounter Details Date Type Department Care Team (Late st Contact Info) Description 10/29/2019 Transcribed Document [facility] [place] Family Medicine [address] [place] [address] ProviderPrasanth MD [address] [place] [address] Social History Tobacco Use Types Packs/Day Years Used Date Smoking Tobacco: Never Assessed Sex and Gender Information Value Date Recorded Sex Assigned at Not on file Legal Sex Male 6:49 PM CDT Gender Identity Not on file Sexual Orientation Not on file documented as of this encounter Miscellaneous Notes * Cerner Conversion Note - Historical ProviderMD - 10/29/2019 9:12 AM PRECISION MACHINE OPERATOR Education-(VTE) / (DVT) Entered On: 10/30/2019 4:52 EST Performed On: 10/29/2019 9:12 EST by Rimma Blackmon RN Teaching/Learning Assessment Barriers To Learning : None evident Individuals Taught : Patient, Family member Learning Style Preferences Patient : None Rimma Blackmon, RN - 10/30/2019 4:52 EST Electronically signed by Nikita [facility] Conversion Attraction Worker Cerner at 01/26/2023 9:07 PM CDT documented in this encounter Plan of Treatment Not on file documented as of this encounter Visit Diagnoses Not on filedocumented in this encounter
--- OUTSIDE RECORDS SUMMARY | 2025-08-15 11:59 | XMS_ITS | Encounter Summary ---
Author Organization [employer] ([place], [place], [place], [place], [place]) Address [address] [place] [address] Care Team Providers Care Bloom Conveyor Operator Name Role Phone Unavailable Primary Care Provider Unavailabl e Encounter Details Date Type Department Care Team (Late st Contact Info) Description 09/11/2019 Transcribed Document [facility] [place] Family Medicine [facility] [address] ProviderPrasanth MD [address] [place] [address] Social History Tobacco Use Types Packs/Day Years Used Date Smoking Tobacco: Never Assessed Sex and Gender Information Value Date Recorded Sex Assigned at Not on file Legal Sex Male 6:49 PM CDT Gender Identity Not on file Sexual Orientation Not on file documented as of this encounter Miscellaneous Notes * Cerner Conversion Note - Prasanth Sanchez MD - 09/11/2019 8:57 AM POWERHOUSE ATTENDANT DATE OF SERVICE: 09/11/2019 PROCEDURE: Left heart [...] stenosis with severe ventricular hypertrophy. PROCEDURE: RFA, 5-Venezuelan sheath, 5-Venezuelan Denny multipack, Mynx assisted manual compression hemostasis. No adverse events. FINDINGS: Aortic pressure was 130/70. The valve was not crossed. The pressure contour of the aorta demonstrated significant delayed upstroke consistent with severe aortic stenosis. ANGIOGRAPHY: Ejection fraction normal by echocardiogram. The ascending aortography demonstrated dilation of the ascending aorta with tortuosity of the subclavian arteries. [place] CIRCULATION: Right coronary artery known to be [...] the cardiac surgeon, Dr. Kyle for AVR. /[id number] MD JOSE ANTONIO Moore/AQ / JOSE ANTONIO / MODL /[id number] documented in this encounter Plan of Treatment Not on file documented as of this encounter Visit Diagnoses Not on filedocumented in this encounter
--- OUTSIDE RECORDS SUMMARY | 2025-08-15 11:59 | XMS_ITS | Encounter Summary ---
Author Organization [employer] ([place], [place], [place], [place], [place]) Address [address] [place] [address] Care Team Providers Care Activated Sludge Operator Name Role Phone Unavailable Primary Care Provider Unavailabl e Encounter Details Date Type Department Care Team (Late st Contact Info) Description 09/25/2019 Transcribed Document [facility] [place] [address] [place] [address] ProviderPrasanth MD [address] [place] [address] Social History Tobacco Use Types Packs/Day Years Used Date Smoking Tobacco: Never Assessed Sex and Gender Information Value Date Recorded Sex Assigned at Not on file Legal Sex Male 6:49 PM CDT Gender Identity Not on file Sexual Orientation Not on file documented as of this encounter Miscellaneous Notes * Cerner Conversion Note - Prasanth Sanchez MD - 09/25/2019 12:59 PM OPERATOR WEAPON LOCATING RADAR Patient Education Materials Follows: Angiogram, Care After [...] cannot use soap and water, use hand marine engineer. ? Change your bandage as told by [...] (urine) clear or pale yellow. ??? Take ruxf-xon-vstyqxv and prescription medicines only as told by [...] 12/23/2009 Document Revised: 09/20/2017 Document Reviewed: 09/20/2017 [employer] Interactive Patient Education ? 2019 [employer] Groin Site Care Refer to this [...] Document Reviewed: 10/29/2011 ExitCare? Patient Information ?2014 [employer]. Moderate Conscious Sedation, Adult, Care After These [...] you are awake and alert. ??? Take vmtc-osx-ewxzkvq and prescription medicines only as told by [...] 07/17/2014 Document Revised: 02/28/2017 Document Reviewed: 01/15/2017 ElsePlay It Gaming Interactive Patient Education ? 2019 [employer] documented in this encounter Plan of Treatment Not on file documented as of this encounter Visit Diagnoses Not on filedocumented in this encounter
--- OUTSIDE RECORDS SUMMARY | 2025-08-15 11:59 | XMS_ITS | Encounter Summary ---
Author Organization [employer] ([place], [place], [place], [place], [place]) Address [address] [place] [address] Care Team Providers Care Independent Beauty Consultant Name Role Phone Unavailable Primary Care Provider Unavailabl e Encounter Details Date Type Department Care Team (Late st Contact Info) Description 08/04/2020 Transcribed Document [facility] [place] Medicine [address] [place] [address] ProviderPrasanth MD [address] [place] [address] Social History Tobacco Use Types [...] - 08/04/2020 17:01 EDT Electronically signed by Nikita [facility] Conversion Associate Professor Of Geography Cerner at 01/26/2023 9:01 PM CDT documented in this encounter Plan of Treatment Not on file documented as of this encounter Visit Diagnoses Not on filedocumented in this encounter
--- OUTSIDE RECORDS SUMMARY | 2025-08-15 11:59 | XMS_ITS | Encounter Summary ---
Author Organization [employer] ([place], [place], [place], [place], [place]) Address [address] [place] [address] Care Team Providers Care Transmitter Operator Name Role Phone Unavailable Primary Care Provider Unavailabl e Encounter Details Date Type Department Care Team (Late st Contact Info) Description 10/30/2019 Transcribed Document [facility] Family Medicine [address] [place] [address] ProviderPrasanth MD [address] [place] [address] Social History Tobacco Use Types Packs/Day Years Used Date Smoking Tobacco: Never Assessed Sex and Gender Information Value Date Recorded Sex Assigned at Not on file Legal Sex Male 6:49 PM CDT Gender Identity Not on file Sexual Orientation Not on file documented as of this encounter Miscellaneous Notes * Cerner Conversion Note - Prasanth ProviderMD - 10/30/2019 3:13 PM COMPOSITE TECHNICIAN Nursing Discharge Summary Entered On: 10/30/2019 15:14 EST Performed On: 10/30/2019 15:13 EST by Jason Thompson, recreation clerk Documentation Discharge Date/Time : 10/30/2019 15:13 EST [...] 10/30/2019 15:13 EST Electronically signed by Nikita [place] Conversion Seafood Service Team Member Cerner at 01/26/2023 8:54 PM CDT documented in this encounter Plan of Treatment Not on file documented as of this encounter Visit Diagnoses Not on filedocumented in this encounter
--- OUTSIDE RECORDS SUMMARY | 2025-08-15 11:59 | XMS_ITS | Encounter Summary ---
Author Organization [employer] ([place], [place], [place], [place], [place]) Address [address] [place] [address] Care Team Providers Care Rubber Down Name Role Phone Unavailable Primary Care Provider Unavailabl e Encounter Details Date Type Department Care Team (Late st Contact Info) Description 09/11/2019 Transcribed Document [facility] [place] [address] [place] [address] ProviderPrasanth MD [address] [place] [address] Social History Tobacco Use Types Packs/Day Years Used Date Smoking Tobacco: Never Assessed Sex and Gender Information Value Date Recorded Sex Assigned at Not on file Legal Sex Male 6:49 PM CDT Gender Identity Not on file Sexual Orientation Not on file documented as of this encounter Miscellaneous Notes * Cerner Conversion Note - Prasanth Sanchez MD - 09/11/2019 11:52 AM SPECIAL DEPUTY SHERIFF [facility] [place] [address] KAYLA SHIRA HORACIO :1935 Visit Time:09/11/2019 Your Visit Summary [...] Office to call with appoint/instructions Where: [address] [place] [address]- [phone] Medications What How Much When Instructions Next [...] Document Reviewed: 10/29/2011 ExitCare?? Patient Information ??2014 [facility], [employer]. Moderate Conscious Sedation, Adult, Care After These [...] you are awake and alert. ??? Take xqps-vpi-ergcwev and prescription medicines only as told by [...] 07/17/2014 Document Revised: 02/28/2017 Document Reviewed: 01/15/2017 V[employer] Interactive Patient Education ?? 2019 [employer] Emergency Awareness and Preventative Care STROKE [...] Assistance with quitting is available by contacting 8-254-KEXTNOW. This is a free resource providing counseling, [...] was given the opportunity to ask questions. Patient/Hog Slaughterer Name: Patient/Hog Slaughterer Signature: Relationship to Patient: Clinician/Hospital Hog Slaughterer Signature: Date: Electronically signed by [facility], [facility] Conversion Contestant Coordinator Richard at 01/26/2023 9:08 PM CDT documented in this encounter Plan of Treatment Not on file documented as of this encounter Visit Diagnoses Not on filedocumented in this encounter
--- OUTSIDE RECORDS SUMMARY | 2025-08-15 11:59 | XMS_ITS | Encounter Summary ---
Author Organization [employer] ([place], [place], [place], [place], [place]) Address [address] [place] [address] Care Team Providers Care Toll Mechanic Name Role Phone Unavailable Primary Care Provider Unavailabl e Encounter Details Date Type Department Care Team (Late st Contact Info) Description 11/04/2019 Transcribed Document [facility] [place] [address] [place] [address] ProviderPrasanth MD [address] [place] [address] Social History Tobacco Use Types Packs/Day Years Used Date Smoking Tobacco: Never Assessed Sex and Gender Information Value Date Recorded Sex Assigned at Not on file Legal Sex Male 6:49 PM CDT Gender Identity Not on file Sexual Orientation Not on file documented as of this encounter Miscellaneous Notes * Cerner Conversion Note - Prasanth ProviderMD - 11/04/2019 11:45 PM CHEMICAL ENGINEERING PROFESSOR Education-Critical Care Entered On: 11/04/2019 23:45 EST [...]
--- OUTSIDE RECORDS SUMMARY | 2025-08-15 11:59 | XMS_ITS | Encounter Summary ---
Author Organization [employer] ([place], [place], [place], [place], [place]) Address [address] [place] [address] Care Team Providers Care Donor Services Team Leader Name Role Phone Unavailable Primary Care Provider Unavailabl e Encounter Details Date Type Department Care Team (Late st Contact Info) Description 11/14/2018 Transcribed Document [facility] [place] [facility] [place] [address] ProviderPrasanth MD [facility] [place] [address] Social History Tobacco Use Types Packs/Day Years Used Date Smoking Tobacco: Never Assessed Sex and Gender Information Value Date Recorded Sex Assigned at Not on file Legal Sex Male 6:49 PM CDT Gender Identity Not on file Sexual Orientation Not on file documented as of this encounter Miscellaneous Notes * Cerner Conversion Note - Prasanth Sanchez MD - 11/14/2018 12:26 PM COTTON BROKER [address] [address] Patient Copy Patient Information: Name: SHIRA GARZA HORACIO Current Date: 11/14/2018 12:26:04 : 1935 Patient Address: [address] [place] [address] [place] [id number] Patient Attending Physician: Primary Care Provider: KARON [...] is done for people who: ??? Have Yqrbf-Qwjziijez-Ladtn syndrome. ??? Have other fast heart rhythms [...] 02/21/2014 Elsevier Interactive Patient Education ? 2017 [employer]. Atrial Flutter Atrial flutter is a [...] Follow these instructions at home: ??? Take bjzq-xym-svfcmut and prescription medicines only as told by [...] 02/12/2010 Document Revised: 02/02/2017 Document Reviewed: 04/09/2016 [employer] Interactive Patient Education ? 2017 [employer]. Moderate Conscious Sedation, Adult, Care After [...] you are awake and alert. ??? Take dzem-uuo-llkmbnl and prescription medicines only as told by [...] 07/17/2014 Document Revised: 02/28/2017 Document Reviewed: 01/15/2017 ElseOutTrippin Interactive Patient Education ? 2017 [employer]. CIGARETTE SMOKING: The facts are clear, cigarette smoking will shorten your life. Smoking can cause many illnesses along the way. As a healthcare provider, we recommend that you stop smoking. Assistance with quitting is available by contacting 0-126-YIAO-NOW. This is a free resource providing counseling, [...] Be sure to sign up for the nTAG Interactive patient portal, which gives you 02/05 access to your medical information ??? including these discharge instructions ??? using your computer, smartphone, or tablet. Just go to Dot VN to get started. Questions? Call . [facility] would like to thank you for allowing us to assist you with your healthcare needs. KAYLA Yee RONALD HORACIO, (or physician representative) have received the above patient education materials/instructions and have verbalized understanding: Patient Signature _ Date/Time Patient Slope Runner Signature (if needed) Date/Time Clinician/Hospital Slope Runner Signature (if needed) Date/Time documented in this encounter Plan of Treatment Not on file documented as of this encounter Visit Diagnoses Not on filedocumented in this encounter
--- OUTSIDE RECORDS SUMMARY | 2025-08-15 11:59 | XMS_ITS | Encounter Summary ---
Author Organization [employer] ([place], [place], [place], [place], [place]) Address [address] [place] [address] Care Team Providers Care Road Machine Operator Name Role Phone Unavailable Primary Care Provider Unavailabl e Encounter Details Date Type Department Care Team (Late st Contact Info) Description 11/14/2018 Transcribed Document [facility] [place] Medicine [facility] [place] [address] ProviderPrasanth MD [facility] [address] Social History Tobacco Use Types Packs/Day Years Used Date Smoking Tobacco: Never Assessed Sex and Gender Information Value Date Recorded Sex Assigned at Not on file Legal Sex Male 6:49 PM CDT Gender Identity Not on file Sexual Orientation Not on file documented as of this encounter Miscellaneous Notes * Cerner Conversion Note - Prasanth Sanchez MD - 11/14/2018 8:31 AM AWNING FRAME MAKER DATE OF STUDY: 11/14/2018 ELECTROPHYSIOLOGY RADIOFREQUENCY ABLATION REPORT PREOPERATIVE DIAGNOSIS: Symptomatic atrial flutter. PROCEDURE PERFORMED: Electrophysiology evaluation and radiofrequency ablation. DESCRIPTION OF PROCEDURE: The patient was brought to the EP laboratory in atrial flutter. After the aseptic draping of the femoral regions, the right femoral triangle was infiltrated with 1% lidocaine locally. A 6, 7, and 8-Panamanian Daig septal sheaths were introduced into the right femoral vein. A 7-Panamanian Duo-Decapolar catheter was advanced along the lateral right atrial wall and into the coronary sinus. A 6-Panamanian Quadripolar catheter was placed at the atrial septum. This catheter was later used for pacing. Electrogram analysis demonstrated a counter-clockwise atrial flutter at a cycle length of 200 msec. Next, using the Carto three-dimensional mapping system in conjunction with a BiosPaperless Post Dubois F Curve irrigated catheter, radiofrequency energy at 40 zheng was delivered across the tricuspid valve isthmus with dissolution of local atrial electrograms and ultimate confucianist of normal sinus rhythm. Bidirectional block across [...] 2. Successful tricuspid valve isthmus ablation with confucianist of normal sinus rhythm and development of bidirectional isthmus block. RECOMMENDATIONS: Routine followup. Dionicio Soliman M.D. Dict: 11/14/2018 08:31:48 Trans: 11/14/2018 10:53:06 CC1: Dionicio Soliman M.D. documented in this encounter Plan of Treatment Not on file documented as of this encounter Visit Diagnoses Not on filedocumented in this encounter
--- OUTSIDE RECORDS SUMMARY | 2025-08-15 11:59 | XMS_ITS | Encounter Summary ---
Author Organization [employer] ([place], [place], [place], [place], [place]) Address [address] [place] [address] Care Team Providers Care Shaker Plate Operator Name Role Phone Unavailable Primary Care Provider Unavailabl e Encounter Details Date Type Department Care Team (Late st Contact Info) Description 09/11/2019 Transcribed Document [facility] [place] [address] [place] [address] ProviderPrasanth MD [address] [place] [address] Social History Tobacco Use Types Packs/Day Years Used Date Smoking Tobacco: Never Assessed Sex and Gender Information Value Date Recorded Sex Assigned at Not on file Legal Sex Male 6:49 PM CDT Gender Identity Not on file Sexual Orientation Not on file documented as of this encounter Miscellaneous Notes * Cerner Conversion Note - Prasanth ProviderMD - 09/11/2019 6:28 AM RUBY ON RAILS CONSULTANT Pre Procedure Adult Entered On: 09/11/2019 6:39 EST Performed On: 09/11/2019 6:28 EST by AV KING RN Height and Weight, Clinical Dosing Height Source : Stated Height Entry Format : [place] Height, Feet : 5 ft(Converted to: 152 cm, 60 Inch) Height, Inches : 10 Inch(Converted to: 0 ft 10 Inch, 25.40 cm) Clinical Height : 177.8 cm Weight Source : Standing scale Weight Entry Format : [place] Clinical Dosing Weight : 92.27 kg Weight, Pounds : 203 lb Body Surface Area (BSA) : 2.1 m2 Body Mass Index : 29.2 kg/m2 (HI) [place] Body Weight : 72 kg AV KING [...] AV KING RN - 09/11/2019 6:28 EST [place] Suicide Severity Rating Scale (C-SSRS) CSSRS Past [...] #2 Relationship : .. Primary Language : Bulgarian Communication Barrier : None AV KING RN [...] Scale Risk Level : 0-24 Low Risk [place] Fall Interventions : Adequate lighting, Assistive devices [...]
--- OUTSIDE RECORDS SUMMARY | 2025-08-15 11:59 | XMS_ITS | Encounter Summary ---
Author Organization [employer] ([place], [place], [place], [place], [place]) Address [address] [place] [address] Care Team Providers Care Waiter/Waitress Tavern Name Role Phone Unavailable Primary Care Provider Unavailabl e Encounter Details Date Type Department Care Team (Late st Contact Info) Description 10/29/2019 Transcribed Document [facility] [place] [address] [place] [address] ProviderPrasanth MD [address] [place] [address] Social History Tobacco Use Types Packs/Day Years Used Date Smoking Tobacco: Never Assessed Sex and Gender Information Value Date Recorded Sex Assigned at Not on file Legal Sex Male 6:49 PM CDT Gender Identity Not on file Sexual Orientation Not on file documented as of this encounter Miscellaneous Notes * Cerner Conversion Note - Prasanth ProviderMD - 10/29/2019 8:11 AM [facility] [employer] Main OR IntraOp Summary Primary Physician: MARK HAIRSTON MD-CAT Finalized Date/Time: 10/31/19 12:09:24 Pt. Name: SHIRA GARZA HORACIO /Sex: 1935 Male Med Rec #: [id number] Physician: MARK HAIRSTON MD-CAT Financial #: [id number] Pt. Type: I Room/Bed: [facility]/1 Admit/Disch: 10/29/19 07:03:00 - 10/30/19 15:14:00 Institution: [facility] IntraOp Case Attendance Entry 1 Entry 2 [...] -ANS Angiography Tech Role Performed Surgeon/Proceduralist, Anesthesiologist Barrel Bridge Assembler Third Time In 10/29/19 07:16:00 10/29/19 07:16:00 [...] Cardiovascular RT Pref Card Builder Role Performed Barrel Bridge Assembler Scrub, Third Director Motion Picture, First Time In 10/29/19 07:16:00 10/29/19 07:16:00 [...] 11 Case Attendee JOAQUÍN ZEE, OTHER, ATTENDEE Line Out Worker Role Performed Line Out Worker Vendor Time In 10/29/19 07:16:00 10/29/19 07:16:00 Time Out 10/29/19 09:42:00 10/29/19 09:42:00 Procedure Aortic Valve Aortic Valve Replacement Transfemoral Replacement Transfemoral Other Attendee HOLAMARCELLO MANCIA Superficial Wound Closed By: Last Modified By: Solange Sutton [facility]One Grimes, Jennifer, [facility]One Pref Card Builder Pref Card Builder 10/29/19 09:43:00 10/29/19 09:43:00 [facility] IntraOp Case Attendance Audit 10/29/19 09:43:00 Component Assembler: MAY Modifier: MAY 1 <+> Time Out [...] Procedure Aortic Valve Replacement Transfemoral 10/29/19 08:06:54 Component Assembler: MAY Modifier: MAY <+> 1 Procedure 2 [...] 11 <*> Procedure Aortic Valve Replacement Transfemoral [facility] IntraOp Case Times Entry 1 Patient In Room Time 10/29/19 07:16:00 Out Room Time 10/29/19 09:42:00 Anesthesia Start Time 10/29/19 07:16:00 Stop Time 10/29/19 09:42:00 Surgery / Procedure Times Start Time 10/29/19 08:11:00 Stop Time 10/29/19 09:17:00 Last Modified By: Solange Sutton [facility] Pref Card Builder 10/29/19 09:42:57 [facility] IntraOp Case Times Audit 10/29/19 09:42:57 Component Assembler: GRIMESJE Modifier: GRIMESJE <+> 1 Out Room Time <+> 1 Stop Time 10/29/19 09:23:10 Component Assembler: GRIMESJE Modifier: GRIMESJE <+> 1 Stop Time 10/29/19 08:11:22 Component Assembler: GRIMESJE Modifier: GRIMESJE <+> 1 Start Time [facility] IntraOp Communication Entry 1 Entry 2 Entry [...] Sutton [facility]One Pref Card Buildvipul 10/29/19 08:59:19 [facility] IntraOp Communication Audit 10/29/19 08:59:19 Component Assembler: MAY Modifier: MAY <+> 3 Date and Time <+> 4 Date and Time [facility] IntraOp Departure from OR Entry 1 Integumentary Assessment Integumentary WDL Assessment WDL Transfer/Handoff Transfer to PACU Phase I Handoff Method Bedside/Face to face Post-op Transport Bed (including Via specialty) Patient Transport DOM DE LA TORRE, Accompanied by DILLAN, JOAQUÍN ZEE, Line Out Worker, Solange Sutton [facility] Pref Card Aida Transfer/Handoff ICU BED Comments Last Modified By: Solange Sutton [facility] Pref Card Buildvipul 10/29/19 08:05:30 [facility] IntraOp Dressing and Packing Entry 1 Type Dressing Location OPERATIVE SITE Wound Dressing Item Skin Closure Glue, Occlusive dressing Last Modified By: Solange Sutton [facility] Pref Card Buildvipul 10/29/19 08:05:33 [facility] IntraOp Fire Risk Assessment Entry 1 Fire [...] Sutton [facility] Pref Card Buildvipul 10/29/19 08:05:40 [facility] IntraOp General Case Project Technician 1 Case Information OR OR 20 [facility] Case Level 2 Room Verified Yes Wound Class I - Clean Specialty SN Cardio Thoracic Anesthesia Type MAC ASA Class 4 Diagnosis Preop Diagnosis AORTIC VALVE DISEASE Postop Same As Preop Yes Postop Diagnosis AORTIC VALVE DISEASE Last Modified By: Solange Sutton [facility] Pref Card Builder 10/29/19 08:05:54 [facility] IntraOp Implant Log Entry 1 Entry 2 Entry 3 Type Implant (Synthetic) Implant (Synthetic) Tissue Implant (Biologic) Implant Log Implant Type Other Other Tissue Implant Type Heart valve Implant CLOSURE SYS PERCLOSE DEVICE MYNX SOLE FILLER 6F/ 7F KT NAVID 3 W/COMM DEL Identification PROGL [id number] SYS [id number] Description Implant Quantity 3 1 1 Implant Site RIGHT GROIN LEFT GROIN AORTIC VALVE Implant Identification Model Number Implant [id number] Identification Serial Number Implant [id number] Identification Lot Number Implant Dixon Lab:Vasc Dev Access Closure Mancia Lifesci Identification Senior Care Provider Name: Implant [id number] Identification Catalog Number Implant Size Implant Has an Yes Yes Yes Expiration Date Implant Expiration 07/09/21 09/08/21 01/08/21 Date Wasted Radioactive Material Time Implanted Tissue Implant Continue for Tissue Implant Documentation Tissue Identification Number Graft Prep Per Yes Senior Care Provider Instructions: Tissue Preparation N/A Method: Reconstitution Solution: Reconstitution Solution Lot Number Reconstitution Solution Expiration Date: Thawing Solution Thawing Solution Lot Number Thawing Solution Expiration Date Preparation NACL AND HEPARIN/SALINE Materials, Other Preparation [id number] Materials, Other Lot Number Preparation 05/10/20 Materials, Other Expiration Date Tissue OTHER, ATTENDEE Prepared/Processed By Senior Care Provider Yes Paperwork Completed Implant Type Comment Last Modified By: Solange Sutton [facility] Grimes, Jennifer, [facility] Grimes, Jennifer, KYOne Pref Card Builder Pref Card Builder Pref Card Builder 10/29/19 08:21:05 10/29/19 08:21:05 10/29/19 13:19:53 [facility] IntraOp Implant Log Audit 10/29/19 13:19:53 Component Assembler: MAY Modifier: MAY 3 <*> Implant Identification Description KT NAVID 3 W/COMM DEL SYS [id number] <*> Tissue Implant Type Tissue 10/29/19 08:34:38 Component Assembler: MAY Modifier: MAY 3 <*> Implant Identification Description KT NAVID 3 W/COMM DEL SYS [id number] <+> Preparation Materials, Other Lot Number 3 <+> Preparation Materials, Other Expiration Date 10/29/19 08:30:15 Component Assembler: MAY Modifier: MAY <+> 3 Implant Identification Description <+> 3 Implant Identification Serial Number <+> 3 Implant Identification Senior Care Provider Name: <+> 3 Implant Expiration Date <+> 3 Implant Site <+> 3 Implant Quantity <+> 3 Implant Identification Catalog Number <+> 3 Tissue Implant Type <+> 3 Graft Prep Per Senior Care Provider Instructions: <+> 3 Tissue Preparation Method: <+> 3 Preparation Materials, Other <+> 3 Tissue Prepared/Processed By <+> 3 Senior Care Provider Paperwork Completed <+> 3 Implant Has an Expiration Date <+> 3 Type [facility] IntraOp Intraoperative Assessment Entry 1 Handoff Method [...] Sutton [facility] Pref Card Builder 10/29/19 08:06:01 [facility] IntraOp Intraoperative Equipment Entry 1 Equipment Intraop Monitoring Blood Pressure Arm, right upper Location Pulse Oximeter Hand, left Probe Site Antiembolic Devices Scopes Photo/Video Documentation Last Modified By: Solange Sutton [facility] Pref Card Builder 10/29/19 08:06:05 [facility] IntraOp Medication Admin Entry 1 Entry 2 Entry 3 Medication/Irrigant lidocaine 1% 30ml vial KENNY VISIPAQUE 320MG 150 KENNY NACL 0.[facility]CT [facility] [id number] 200ML --[id number] 1000U .5L --[id number] Combo Med List Time Administered Route of LOCAL FLUSH IRRIGATION/FLUSH Administration Dose Dose 10 65 4000 Unit of Measure ml mg units Volume Administered By MARK HAIRSTON, MARK HAIRSTON, MARK HAIRSTON, -CAT -CAT -CAT Procedure Irrigation Irrigant Volume In Irrigant Volume Out Last Modified By: Solange Sutton [facility]One Grimes, Jennifer, [facility]One Grimes, Jennifer, KYOne Pref Card Builder Pref Card Builder Pref Card Builder 10/29/19 08:06:19 10/29/19 08:06:19 10/29/19 08:06:19 [facility] IntraOp Patient Positioning Entry 1 Procedure Aortic [...] Sutton [facility] Pref Card Builder 10/29/19 08:06:32 [facility] IntraOp Sign In Entry 1 Patient, Site, [...] Sutton [facility] Pref Card Builder 10/29/19 08:06:34 [facility] IntraOp Sign Out Entry 1 RN Confirmation [...] Sutton [facility] Pref Card Builder 10/29/19 09:43:07 [facility] IntraOp Sign Out Audit 10/29/19 09:43:07 Component Assembler: MAY Modifier: MAY <+> 1 RN Sign Out Signature Date/Time [facility] IntraOp Skin Prep Entry 1 Procedure Aortic Valve Replacement Transfemoral Prescribed Yes Pre-Surgical Prep Completed Prep Area CHIN TO KNEES Intraop Prep Integumentary WDL Assessment WDL Prep Agents Chloraprep Prep by Solange Sutton [facility] Pref Card Builder Hair Removal Last Modified By: Solange Sutton [facility] Pref Card Builder 10/29/19 08:06:43 [facility] IntraOp Surgical Procedures Entry 1 Procedure Aortic Valve Replacement Transfemoral Additional TRANSFEMORAL AORTIC Procedure VALVE REPLACEMENT, PUMP Description STAND BY Primary Procedure Yes Primary Surgeon MARK HAIRSTON MD-CAT Start 10/29/19 08:11:00 Stop 10/29/19 09:17:00 Anesthesia Type General Specialty SN Cardio Thoracic Wound Class I - Clean Last Modified By: Solange Sutton [facility] Pref Card Builder 10/29/19 09:43:10 [facility] IntraOp Surgical Procedures Audit 10/29/19 09:43:10 Component Assembler: MAY Modifier: MAY <+> 1 Stop 10/29/19 09:02:34 Component Assembler: MAY Modifier: MAY 1 <*> Procedure Aortic Valve Replacement Transfemoral 1 <+> Start 1 <*> Additional Procedure Description (AORTIC VALVULOPLASTY, VITOR, POSSIBLE TRANSCATHETER AORTIC VALVE REPLACEMENT, POSSIBLE OPEN AORTIC VALVE REPLACEMENT) [facility] IntraOp Temp Regulation Devices Entry 1 Temp Regulation Temperature Warm blankets Regulation Device Temperature Full body Regulation Site Temperature Solange Sutton [facility]One Regulation Device Pref Card Builder Applied by Last Modified By: Solange Sutton [facility]One Pref Card Builder 10/29/19 08:06:59 [facility] IntraOP Time Out Entry 1 Procedure to [...] Sutton [facility]One Pref Card Builder 10/29/19 08:11:18 [facility] IntraOP Time Out Audit 10/29/19 08:11:18 Component Assembler: MAY Modifier: MAY 1 <+> Beta Bety Administered 1 <+> Time Out Pause Time 1 <*> Procedure to be Performed Aortic Valve Replacement Transfemoral 1 <+> Time Out Comment [facility] IntraOp X-Ray and Images Entry 1 X-Ray/Imaging Type Fluoroscopy Fluoroscopy Type Fixed Site CHEST Embedded Processor Name Lynn, Brenna, Angiography Tech Protective Devices Yes Used [...] 10/29/19 13:19 MAY Correct Documentation 10/31/19 12:06 ITFFANIE Correct Billing Electronically signed by Nikita [facility] Conversion Lens Blank Gauger Cerner at 01/26/2023 9:05 PM CDT documented in this encounter Plan of Treatment Not on file documented as of this encounter Visit Diagnoses Not on filedocumented in this encounter
--- OUTSIDE RECORDS SUMMARY | 2025-08-15 11:59 | XMS_ITS | Encounter Summary ---
Author Organization [employer] ([place], [place], [place], [place], [place]) Address [address] [place] [address] Care Team Providers Care Warp Preparer Name Role Phone Unavailable Primary Care Provider Unavailabl e Encounter Details Date Type Department Care Team (Late st Contact Info) Description 06/02/2021 Transcribed Document [facility] [place] Medicine [place] [address] ProviderPrasanth MD [address] [place] [address] Social History Tobacco Use Types [...] : 2 - Emergent Tracking Group : [facility] ED Marisela Mendenhall RN - 06/02/2021 10:01 [...] EDT) Problems(Active) Aortic valve stenosis (SNOMED CT :863629046 ) Name of Problem: Aortic valve stenosis ; Recorder: JIMI MCNEIL RN; Confirmation: Confirmed ; Classification: Medical ; Code: [id number] ; Contributor System: PowerChart ; Last Updated: 08/05/2020 10:36 EDT ; Life Cycle Status: Active ; Vocabulary: SNOMED CT At risk for sleep apnea (IMO :58357376 ) Name of Problem: At risk for sleep apnea ; Recorder: SYSTEM, SYSTEM; Confirmation: Confirmed ; Classification: Medical ; Code: 21655705 ; Last Updated: 11/14/2018 7:19 EST ; Life Cycle Date: 11/14/2018 ; Life Cycle Status: Active ; Vocabulary: IMO At risk for sleep apnea (IMO :58715270 ) Name of Problem: At risk for sleep apnea ; Recorder: SYSTEM, SYSTEM; Confirmation: Confirmed ; Classification: Medical ; Code: 84979707 ; Last Updated: 08/04/2020 12:17 EDT ; Life Cycle Date: 08/04/2020 ; Life Cycle Status: Active ; Vocabulary: IMO Atrial fibrillation (SNOMED CT :59088094 ) Name of Problem: Atrial fibrillation ; Recorder: JIMI MCNEIL RN; Confirmation: Confirmed ; Classification: Medical ; Code: 68282357 ; Contributor System: [email or web address] ; Last Updated: 08/05/2020 10:36 EDT ; Life Cycle Status: Active ; Vocabulary: SNOMED CT Atrial flutter (SNOMED CT :6311177 ) Name of Problem: Atrial flutter ; Recorder: RADHA TERRAZAS RN; Confirmation: Confirmed ; Classification: Patient Stated ; Code: 2119394 ; Contributor System: PowerChart ; Last Updated: 11/14/2018 7:26 EST ; Life Cycle Date: 11/14/2018 ; Life Cycle Status: Active ; Vocabulary: SNOMED CT Benign neoplastic disease (SNOMED CT :31427498 ) Name of Problem: Benign neoplastic disease ; Recorder: AV KING RN; Confirmation: Confirmed ; Classification: Patient Stated ; Code: 18866446 ; Contributor System: PowerChart ; Last Updated: 09/11/2019 7:15 EST ; Life Cycle Date: 09/11/2019 ; Life Cycle Status: Active ; Vocabulary: SNOMED CT CAD - Coronary artery disease (SNOMED CT :9010012271 ) Name of Problem: CAD - Coronary artery disease ; Recorder: JIMI MCNEIL RN; Confirmation: Confirmed ; Classification: Medical ; Code: 3888018689 ; Contributor System: PowerChart ; Last Updated: 08/05/2020 10:36 EDT ; Life Cycle Status: Active ; Vocabulary: SNOMED CT CAD (coronary artery disease) (SNOMED CT :84524622 ) Name of Problem: CAD (coronary artery disease) ; Recorder: RADHA TERRAZAS RN; Confirmation: Confirmed ; Classification: Patient Stated ; Code: 93393576 ; Contributor System: PowerChart ; Last Updated: 11/14/2018 7:27 EST ; Life Cycle Date: 11/14/2018 ; Life Cycle Status: Active ; Vocabulary: SNOMED CT Chest pain (SNOMED CT :84952737 ) Name of Problem: Chest pain ; Recorder: SALLY BARNETT RN; Confirmation: Confirmed ; Classification: Patient Stated ; Code: 62593362 ; Contributor System: PowerChart ; Last Updated: 07/22/2020 9:12 EDT ; Life Cycle Date: 07/22/2020 ; Life Cycle Status: Active ; Vocabulary: SNOMED CT H/O aortic valve replacement (SNOMED CT :7662489493 ) Name of Problem: H/O aortic valve replacement ; Recorder: WALTER POWELL RN; Confirmation: Confirmed ; Classification: Patient Stated ; Code: 5406448547 ; Contributor System: PowerChart ; Last Updated: 08/04/2020 12:06 EDT ; Life Cycle Date: 08/04/2020 ; Life Cycle Status: Active ; Vocabulary: SNOMED CT Hard of hearing (SNOMED CT :343176332 ) Name of Problem: Hard of hearing ; Recorder: WALTER POWELL RN; Confirmation: Confirmed ; Classification: Patient Stated ; Code: 012540271 ; Contributor System: PowerChart ; Last Updated: 08/04/2020 11:53 EDT ; Life Cycle Date: 08/04/2020 ; Life Cycle Status: Active ; Vocabulary: SNOMED CT HLD - Hyperlipidemia (SNOMED CT :335154294 ) Name of Problem: HLD - Hyperlipidemia ; Recorder: JIMI MCNEIL RN; Confirmation: Confirmed ; Classification: Medical ; Code: 505339524 ; Contributor System: PowerChart ; Last Updated: 08/05/2020 10:36 EDT ; Life Cycle Status: Active ; Vocabulary: SNOMED CT HTN - Hypertension (SNOMED CT :6929425544 ) Name of Problem: HTN - Hypertension ; Recorder: JIMI MCNEIL RN; Confirmation: Confirmed ; Classification: Medical ; Code: 6691154036 ; Contributor System: PowerChart ; Last Updated: 08/05/2020 10:36 EDT ; Life Cycle Status: Active ; Vocabulary: SNOMED CT Hyperlipidemia (SNOMED CT :54701035 ) Name of Problem: Hyperlipidemia ; Recorder: AV KING RN; Confirmation: Confirmed ; Classification: Patient Stated ; Code: 22475250 ; Contributor System: PowerChart ; Last Updated: 09/11/2019 6:25 EST ; Life Cycle Date: 09/11/2019 ; Life Cycle Status: Active ; Vocabulary: SNOMED CT Hyperlipidemia (SNOMED CT :76121209 ) Name of Problem: Hyperlipidemia ; Recorder: WALTER POWELL RN; Confirmation: Confirmed ; Classification: Patient Stated ; Code: 85624574 ; Contributor System: PowerChart ; Last Updated: 08/04/2020 11:53 EDT ; Life Cycle Date: 08/04/2020 ; Life Cycle Status: Active ; Vocabulary: SNOMED CT Hypertension (SNOMED CT :45436116 ) Name of Problem: Hypertension ; Recorder: HILDA ANTHONY RN; Confirmation: Confirmed ; Classification: Medical ; Code: 64473352 ; Contributor System: PowerChart ; Last Updated: 10/26/2019 9:33 EST ; Life Cycle Date: 10/26/2019 ; Life Cycle Status: Active ; Vocabulary: SNOMED CT Hypertension (SNOMED CT :04313644 ) Name of Problem: Hypertension ; Recorder: WALTER POWELL RN; Confirmation: Confirmed ; Classification: Patient Stated ; Code: 77757707 ; Contributor System: PowerChart ; Last Updated: 08/04/2020 11:53 EDT ; Life Cycle Date: 08/04/2020 ; Life Cycle Status: Active ; Vocabulary: SNOMED CT Impaired vision in both eyes (SNOMED CT :8013714184 ) Name of Problem: Impaired vision in both eyes ; Recorder: AUSTIN FOFANA RN; Confirmation: Confirmed ; Classification: Patient Stated ; Code: 6982235438 ; Contributor System: PowerChart ; Last Updated: 12/03/2019 9:57 EST ; Life Cycle Date: 12/03/2019 ; Life Cycle Status: Active ; Vocabulary: SNOMED CT Right bundle branch block (SNOMED CT :80722262 ) Name of Problem: Right bundle branch block ; Recorder: AV KING RN; Confirmation: Confirmed ; Classification: Patient Stated ; Code: 30233971 ; Contributor System: PowerChart ; Last Updated: 09/11/2019 7:12 EST ; Life Cycle Date: 09/11/2019 ; Life Cycle Status: Active ; Vocabulary: SNOMED CT Shortness of breath (SNOMED CT :115542146 ) Name of Problem: Shortness of breath ; Recorder: HILDA ANTHONY RN; Confirmation: Confirmed ; Classification: Medical ; Code: 320083350 ; Contributor System: [email or web address] ; Last Updated: 10/26/2019 9:34 EST ; Life Cycle Date: 10/26/2019 ; Life Cycle Status: Active ; Vocabulary: SNOMED CT Wears glasses (SNOMED CT :733427646 ) Name of Problem: Wears glasses ; Recorder: HILDA ANTHONY RN; Confirmation: Confirmed ; Classification: Medical ; Code: 731786626 ; Contributor System: Swapferit ; Last Updated: 10/26/2019 9:32 EST ; Life Cycle Date: 10/26/2019 ; Life Cycle Status: Active ; Vocabulary: SNOMED CT Diagnoses(Active) Chest pain Date: 06/02/2021 ; Diagnosis Type: Reason For Visit ; Confirmation: Complaint of ; Clinical Dx: Chest pain ; Classification: Medical ; Clinical Service: Non-Specified ; Code: PNED ; Probability: 0 ; Diagnosis Code: [id number] Weakness Date: 06/02/2021 ; Diagnosis Type: Reason For Visit ; Confirmation: Complaint of ; Clinical Dx: Weakness ; Classification: Medical ; Clinical Service: Non-Specified ; Code: PNED ; Probability: 0 ; Diagnosis Code: [id number] ED Height and Weight Height Source : Stated Height Entry Format : [place] Height, Feet : 5 ft(Converted to: 152 cm, 60 Inch) Height, Inches : 9 Inch(Converted to: 0 ft 9 Inch, 22.86 cm) Clinical Height : 175.26 cm Weight Source, ED : Standing scale Weight Entry Format : [place] Weight, Pounds : 198.4 lb Clinical Dosing Weight : 90.18 kg Body Surface Area (BSA) : 2.06 m2 Body Mass Index : 29.4 kg/m2 (HI) [place] Body Weight (IBW) : 69.73 kg Marisela Mendenhall RN - 06/02/2021 10:01 EDT documented in this encounter Plan of Treatment Not on file documented as of this encounter Visit Diagnoses Not on filedocumented in this encounter
--- OUTSIDE RECORDS SUMMARY | 2025-08-15 11:59 | XMS_ITS | Referral Summary ---
Author Organization [employer] ([place], [place], [place], [place], [place]) Address [address] [place] [address] Care Team Providers Care Social Scientist Name Role Phone Unavailable Primary Care [...]
--- OUTSIDE RECORDS SUMMARY | 2025-08-15 11:59 | XMS_ITS | Encounter Summary ---
Author Organization [employer] ([place], [place], [place], [place], [place]) Address [address] [place] [address] Care Team Providers Care Wood Type Cutter Name Role Phone Unavailable Primary Care Provider Unavailabl e Encounter Details Date Type Department Care Team (Late st Contact Info) Description 11/14/2018 Transcribed Document [facility] [place] Family Medicine [address] [place] [address] ProviderPrasanth MD [address] [place] [address] Social History Tobacco Use Types Packs/Day Years Used Date Smoking Tobacco: Never Assessed Sex and Gender Information Value Date Recorded Sex Assigned at Not on file Legal Sex Male 6:49 PM CDT Gender Identity Not on file Sexual Orientation Not on file documented as of this encounter Miscellaneous Notes * Cerner Conversion Note - Prasanth ProviderMD - 11/14/2018 11:32 AM SENIOR RESEARCH ASSOCIATE Nursing Discharge Summary Entered On: 11/14/2018 11:33 EST Performed On: 11/14/2018 11:32 EST by RADHA TERRAZAS first coat sander Documentation Patient Disposition, General : Discharge Discharge [...] 11/14/2018 12:32 EST Electronically signed by Nikita [facility] Conversion Italian Lecturer Cerner at 01/26/2023 9:08 PM CDT documented in this encounter Plan of Treatment Not on file documented as of this encounter Visit Diagnoses Not on filedocumented in this encounter
--- OUTSIDE RECORDS SUMMARY | 2025-08-15 11:59 | XMS_ITS | Encounter Summary ---
Author Organization [employer] ([place], [place], [place], [place], [place]) Address [address] [place] [address] Care Team Providers Care Party Plan Sales Unit Advisor Name Role Phone Unavailable Primary Care Provider Unavailabl e Encounter Details Date Type Department Care Team (Late st Contact Info) Description 09/11/2019 Transcribed Document [facility] [place] Family Medicine [address] [place] [address] ProviderPrasanth MD [address] [place] [address] Social History Tobacco Use [...] Prasanth Sanchez MD - 09/11/2019 11:49 AM [facility] Patient Education Materials Follows: Groin Site Care [...] Document Reviewed: 10/29/2011 ExitCare? Patient Information ?2013 [facility]. Moderate Conscious Sedation, Adult, Care After These [...] you are awake and alert. ??? Take lnat-gqg-qwoxahr and prescription medicines only as told by [...] 07/17/2014 Document Revised: 02/28/2017 Document Reviewed: 01/15/2017 [employer] Interactive Patient Education ? 2019 [employer] documented in this encounter Plan of Treatment Not on file documented as of this encounter Visit Diagnoses Not on filedocumented in this encounter
--- OUTSIDE RECORDS SUMMARY | 2025-08-15 12:00 | XMS_ITS | Encounter Summary ---
Author Organization [employer] ([place], [place], [place], [place], [place]) Address [address] [place] [address] Care Team Providers Care Offset Plate Preparation Supervisor Name Role Phone Unavailable Primary Care Provider Unavailabl e Encounter Details Date Type Department Care Team (Late st Contact Info) Description 09/26/2019 Transcribed Document [facility] Cardiology [address] [place] [address] Lee Ann Quinonez MD [address] [facility] [address] [place] [address] Social History Tobacco Use Types [...] Normal strength, No deformity. Integumentary: Warm, Dry, [place], No rash. Neurologic: Alert, Oriented, No focal [...]
--- OUTSIDE RECORDS SUMMARY | 2025-08-15 12:00 | XMS_ITS | Encounter Summary ---
Author Organization [employer] ([place], [place], [place], [place], [place]) Address [address] [place] [address] Care Team Providers Care Art Glass Setter Name Role Phone Unavailable Primary Care Provider Unavailabl e Encounter Details Date Type Department Care Team (Late st Contact Info) Description 08/04/2020 Transcribed Document [facility] [place] Family Medicine [address] [place] [address] ProviderPrasanth MD [address] [place] [address] Social History Tobacco Use Types [...]
--- OUTSIDE RECORDS SUMMARY | 2025-08-15 12:00 | XMS_ITS | Encounter Summary ---
Author Organization [employer] ([place], [place], [place], [place], [place]) Address [address] [place] [address] Care Team Providers Care Feather Maker Name Role Phone Unavailable Primary Care Provider Unavailabl e Encounter Details Date Type Department Care Team (Late st Contact Info) Description 08/05/[address] [facility] [place] [address] [place] [address] ProviderPrasanth MD [address] [place] [address] Social History Tobacco Use Types [...] On: 08/05/2020 17:35 EDT by MARYBETH MORAN Rn-Proposal Engineer Initial Assessment I Previously Documented Living Environment [...] Listed? : Yes Medical Durable Power of Application Security Consultant Name : Legal Guardian : No MARYBETH MORAN Rn-Proposal Engineer - 08/05/2020 17:35 EDT Initial Assessment II Sensory and Motor Deficits : None, Weakness Current Home Treatments and Equipment : None MARYBETH MORAN Rn-Proposal Engineer - 08/05/2020 17:35 EDT Discharge Needs I Anticipated Discharge Date : 08/06/2020 EDT Anticipated Discharge To, CM : Home with family care Current Home Treatment/Equipment : Current Home Treatment/Equipment No qualifying data available. Post Acute/Home Treatments : None Documentation Status Complete : Yes MARYBETH MORAN Rn-Proposal Engineer - 08/05/2020 17:35 EDT Discharge Needs II Professional Skilled Services : Professional Skilled Services No qualifying data available. Needs Assistance with Transportation : No Discharge Options Discussed with Patient : Discharge transportation, Outpatient services MARYBETH MORAN Rn-Proposal Engineer - 08/05/2020 17:35 EDT Narrative Note Narrative Note : Patient is I-ADL, will drive home, anticipate dc tomorrow with Eliquis or coumadin. MARYBETH MORAN Rn-Proposal Engineer - 08/05/2020 17:35 EDT documented in this encounter Plan of Treatment Not on file documented as of this encounter Visit Diagnoses Not on filedocumented in this encounter
--- OUTSIDE RECORDS SUMMARY | 2025-08-15 12:00 | XMS_ITS | Encounter Summary ---
Author Organization [employer] ([place], [place], [place], [place], [place]) Address [address] [place] [address] Care Team Providers Care County Tax Assessor Name Role Phone Unavailable Primary Care Provider Unavailabl e Encounter Details Date Type Department Care Team (Late st Contact Info) Description 06/03/2021 Transcribed Document [facility] [place] Family Medicine [facility] [place] [address] ProviderPrasanth MD [address] [place] [address] Social History Tobacco Use Types [...] Diagnostic Results Radiology Results (Last 48 hours) [id number] -- 06/02/2021 12:02 CR Chest 2 Vws [...] Lymph # 1.96 x10(3)/uL 06/02/2021 21:54 EDT [place] % 9.8 % (High) 06/03/2021 03:08 EDT [place] % 10.5 % (High) 06/02/2021 21:54 EDT [place] # 0.66 K/uL 06/03/2021 03:08 EDT [place] # 0.63 K/uL 06/02/2021 21:54 EDT Eos [...] MD-INT 06/02/2021 14:11 EDT Electronically signed by [facility], [facility] Conversion [facility] Worker Cerner at 01/26/2023 8:54 PM CDT documented in this encounter Plan of Treatment Not on file documented as of this encounter Visit Diagnoses Not on filedocumented in this encounter
--- OUTSIDE RECORDS SUMMARY | 2025-08-15 12:00 | XMS_ITS | Encounter Summary ---
Author Organization [employer] ([place], [place], [place], [place], [place]) Address [address] [place] [address] Care Team Providers Care Stocklayer Name Role Phone Unavailable Primary Care Provider Unavailabl e Encounter Details Date Type Department Care Team (Late st Contact Info) Description 08/06/2020 Transcribed Document [facility] [place] [address] [place] [address] ProviderPrasanth MD [address] [place], [place] [id number] Social History Tobacco Use Types Packs/Day Years Used Date Smoking Tobacco: Never Assessed Sex and Gender Information Value Date Recorded Sex Assigned at Not on file Legal Sex Male 6:49 PM CDT Gender Identity Not on file Sexual Orientation Not on file documented as of this encounter Miscellaneous Notes * Cerner Conversion Note - Historical ProviderMD - 08/06/2020 9:30 AM CDT UM Authorization Entered On: 08/06/2020 9:30 EDT Performed On: 08/06/2020 9:30 EDT by DIVINA HUGHES Rn-Utilization Review Primary Insurance Authorization Authorization and Policy Numbers : Insurance 1 Health Plan: MEDICARE Policy Number: [id number] Authorization Number: Insurance Primary Name : MEDICARE Policy Number: [id number] Historical Authorization Comments-Primary : No Authorization Comments Found DIVINA HUGHES Rn-Utilization Review - 08/06/2020 9:30 EDT documented in this encounter Plan of Treatment Not on file documented as of this encounter Visit Diagnoses Not on filedocumented in this encounter
--- OUTSIDE RECORDS SUMMARY | 2025-08-15 12:00 | XMS_ITS | Encounter Summary ---
Author Organization [employer] ([place], [place], [place], [place], [place]) Address [address] [place] [address] Care Team Providers Care Flatwork Supervisor Name Role Phone Unavailable Primary Care Provider Unavailabl e Encounter Details Date Type Department Care Team (Late st Contact Info) Description 06/03/2021 Transcribed Document [facility] [place] Family Medicine [address] [place] [address] ProviderPrasanth MD [address] [place] [address] Social History Tobacco Use Types [...] Reason for Discharge : Other: Pt at [facility]. Discharged to, Therapy : Other: Pt staying [...] Electronically signed by Carla Shelton Conversion Accounts Payable Payroll Coordinator Cergarcia at 01/26/2023 8:55 PM CDT documented in this encounter Plan of Treatment Not on file documented as of this encounter Visit Diagnoses Not on filedocumented in this encounter
--- OUTSIDE RECORDS SUMMARY | 2025-08-15 12:00 | XMS_ITS | Encounter Summary ---
Author Organization [employer] ([place], [place], [place], [place], [place]) Address [address] [place] [address] Care Team Providers Care Stone Setter Apprentice Name Role Phone Unavailable Primary Care Provider Unavailabl e Encounter Details Date Type Department Care Team (Late st Contact Info) Description 06/03/2021 Transcribed Document [facility] [place] Family Medicine [address] [place] [address] ProviderPrasanth MD [address] [place] [address] Social History Tobacco Use Types Packs/Day Years Used Date Smoking Tobacco: Never Assessed Sex and Gender Information Value Date Recorded Sex Assigned at Not on file Legal Sex Male 6:49 PM CDT Gender Identity Not on file Sexual Orientation Not on file documented as of this encounter Miscellaneous Notes * Cerner Conversion Note - Prasanth Sanchez MD - 06/03/2021 9:00 PM CDT NIH Stroke [...]
--- OUTSIDE RECORDS SUMMARY | 2025-08-15 12:00 | XMS_ITS | Encounter Summary ---
Author Organization [employer] ([place], [place], [place], [place], [place]) Address [address] [place] [address] Care Team Providers Care Full Time Paramedic Name Role Phone Unavailable Primary Care Provider Unavailabl e Encounter Details Date Type Department Care Team (Late st Contact Info) Description 08/05/2020 Transcribed Document [facility] [place] [address] [place] [address] ProviderPrasanth MD [address] [place] [address] Social History Tobacco Use Types Packs/Day Years Used Date Smoking Tobacco: Never Assessed Sex and Gender Information Value Date Recorded Sex Assigned at Not on file Legal Sex Male 6:49 PM CDT Gender Identity Not on file Sexual Orientation Not on file documented as of this encounter Miscellaneous Notes * Cerner Conversion Note - Historical ProviderMD - 08/05/2020 2:39 PM CDT UM Authorization Entered On: 08/05/2020 14:39 EDT Performed On: 08/05/2020 14:39 EDT by DIVINA HUGHES Rn-Utilization Review Primary Insurance Authorization Authorization and Policy Numbers : Insurance 1 Health Plan: MEDICARE Policy Number: [id number] Authorization Number: Insurance Primary Name : MEDICARE Policy Number: [id number] Historical Authorization Comments-Primary : No Authorization Comments Found DIVINA HUGHES, Rn-Utilization Review - 08/05/2020 14:39 EDT documented in this encounter Plan of Treatment Not on file documented as of this encounter Visit Diagnoses Not on filedocumented in this encounter
--- OUTSIDE RECORDS SUMMARY | 2025-08-15 12:00 | XMS_ITS | Encounter Summary ---
Author Organization [employer] ([place], [place], [place], [place], [place]) Address [address] [place] [address] Care Team Providers Care Big Data Hadoop Developer Name Role Phone Unavailable Primary Care Provider Unavailabl e Encounter Details Date Type Department Care Team (Late st Contact Info) Description 09/26/2019 Transcribed Document [facility] [place] [address] [place] [address] ProviderPrasanth MD [address] [place], [place] [id number] Social History Tobacco Use Types Packs/Day Years Used Date Smoking Tobacco: Never Assessed Sex and Gender Information Value Date Recorded Sex Assigned at Not on file Legal Sex Male 6:49 PM CDT Gender Identity Not on file Sexual Orientation Not on file documented as of this encounter Miscellaneous Notes * Cerner Conversion Note - Historical ProviderMD - 09/26/2019 10:31 AM CROSSCUTTER UM Authorization Entered On: 09/26/2019 10:31 EST Performed On: 09/26/2019 10:31 EST by DIVINA HUGHES Rn-Utilization Review Primary Insurance Authorization Authorization and Policy Numbers : Insurance 1 Health Plan: MEDICARE Policy Number: [id number] Authorization Number: NOT REQUIRED Insurance 2 Health Plan: AARP N Policy Number: [id number] Authorization Number: NOT REQUIRED Insurance Primary Name : MEDICARE Policy Number: [id number] AARP N Policy Number: [id number] Historical Authorization Comments-Primary : No Authorization Comments Found DIVINA HUGHES Rn-Utilization Review - 09/26/2019 10:31 EST Electronically signed by Nikita [facility] Conversion Health Worker Cerner at 01/26/2023 9:09 PM CDT documented in this encounter Plan of Treatment Not on file documented as of this encounter Visit Diagnoses Not on filedocumented in this encounter
--- OUTSIDE RECORDS SUMMARY | 2025-08-15 12:00 | XMS_ITS | Encounter Summary ---
Author Organization [employer] ([place], [place], [place], [place], [place]) Address [address] [place] [address] Care Team Providers Care Medtronics Technician Name Role Phone Unavailable Primary Care Provider Unavailabl e Encounter Details Date Type Department Care Team (Late st Contact Info) Description 06/04/2021 Transcribed Document [facility] [place] Family Medicine [address] [place] [address] ProviderPrasanth MD [address] [place] [address] Social History Tobacco Use Types [...]
--- OUTSIDE RECORDS SUMMARY | 2025-08-15 12:00 | XMS_ITS | Encounter Summary ---
Author Organization [employer] ([place], [place], [place], [place], [place]) Address [address] [place] [address] Care Team Providers Care In Home Caregiver Name Role Phone Unavailable Primary Care Provider Unavailabl e Encounter Details Date Type Department Care Team (Late st Contact Info) Description 08/06/2020 Transcribed Document [facility] [place] Family Medicine [address] [place] [address] ProviderPrasanth MD [address] [place] [address] Social History Tobacco Use Types [...] a heart-healthy eating plan. Medicines ??? Take plav-bqd-amezbur and prescription medicines only as told by [...] 09/26/2006 Document Revised: 10/08/2019 Document Reviewed: 10/08/2019 [email or web address] Patient Education ? 2020 [employer]. Pharmacology Aspirin and Your Heart Aspirin is [...] The two forms of aspirin are: ? Xit-zspebki-yfftrx.This type of aspirin does not have a coating and is absorbed quickly. This type of aspirin also comes in a chewable form. ? Enteric-coated. This type of aspirin has a coating that releases the medicine very slowly. Enteric-coated aspirin might cause less stomach upset than ybs-zddpvwp-afclgw aspirin. This type of aspirin should not [...] 09/08/2009 Document Revised: 07/27/2018 Document Reviewed: 07/27/2018 [employer] Patient Education ? 2020 [employer]. Preventive Health Venous Thromboembolism Prevention Venous thromboembolism [...] for Disease Control and Prevention: www.cdc.gov ??? [place] Heart Association: www.heart.org Get help right away [...] Reviewed: 12/04/2019 Elsevier Patient Education ? 2019 [employer] Procedures Mitral Valve Replacement Mitral valve [...] including vitamins, herbs, eye drops, creams, and imfi-qmi-eipqvcg medicines. ??? Any problems you or family [...] tells you to take them. ? Taking ribv-mxt-emywkux medicines, vitamins, herbs, and supplements. Staying hydrated [...] 01/27/2006 Document Revised: 06/19/2019 Document Reviewed: 06/19/2019 [email or web address] Patient Education ? 2020 [employer]. documented in this encounter Plan of Treatment Not on file documented as of this encounter Visit Diagnoses Not on filedocumented in this encounter
--- OUTSIDE RECORDS SUMMARY | 2025-08-15 12:00 | XMS_ITS | Encounter Summary ---
Author Organization [employer] ([place], [place], [place], [place], [place]) Address [address] [place] [address] Care Team Providers Care Head Turbine Operator Name Role Phone Unavailable Primary Care Provider Unavailabl e Encounter Details Date Type Department Care Team (Late st Contact Info) Description 08/05/2020 Transcribed Document [facility] [place] [address] [place] [address] ProviderPrasanth MD [address] [place] [address] Social History Tobacco Use Types [...] - Medical Apixaban 5 mg, Oral, Tab, [id number], Routine, Start 08/06/20 7:00:00 EDT, 08/06/20 7:00:00 EDT (CJ AVITIA) Medications aspirin, 81 mg= 1 Tab, Oral, Daily Eliquis, 5 mg= 1 Tab, Oral, [id number] hydroCHLOROthiazide, 12.5 mg= 0.5 Tab, Oral, Daily [...] (High) 08/05/2020 12:32 EDT Electronically signed by Carla Shelton Conversion Aeronautical Engineering Officer Cerner at 01/26/2023 9:08 PM CDT documented in this encounter Plan of Treatment Not on file documented as of this encounter Visit Diagnoses Not on filedocumented in this encounter
--- OUTSIDE RECORDS SUMMARY | 2025-08-15 12:00 | XMS_ITS | Encounter Summary ---
Author Organization [employer] ([place], [place], [place], [place], [place]) Address [address] [place] [address] Care Team Providers Care Felter Tennis Balls Name Role Phone Unavailable Primary Care Provider Unavailabl e Encounter Details Date Type Department Care Team (Late st Contact Info) Description 08/05/2020 Transcribed Document [facility] [place] Family Medicine [address] [place] [address] ProviderPrasanth MD [address] [place] [address] Social History Tobacco Use Types [...] Associated Diagnoses: None Author: CELESTINA RUIZ APRN [facility] PROGRESS NOTE: DIAGNOSIS: 1. NSTEMI 2. [...] 01:29) Clinical Weight CLINICALWEIGHT: 88.64 kg (08/04/20::00) [place] Body Weight: 70 kg (08/04/20::) Intake & [...] CAD/ prior 5V CABG optimize medical management [facility] 09/2019 revealed patent grafts Thrombosed aortic [...]
--- OUTSIDE RECORDS SUMMARY | 2025-08-15 12:00 | XMS_ITS | Encounter Summary ---
Author Organization [employer] ([place], [place], [place], [place], [place]) Address [address] [place] [address] Care Team Providers Care Employer Relations Representative Name Role Phone Unavailable Primary Care Provider Unavailabl e Encounter Details Date Type Department Care Team (Late st Contact Info) Description 06/04/[address] [facility] [place] Family [place] [address] [place] [address] ProviderPrasanth MD [address] [place] [address] Social History Tobacco Use Types [...] On: 06/04/2021 15:42 EDT by Chang Medrano, Case Filler-Student Nurse Discharge Documentation Discharge Date/Time : 06/04/2021 [...] Discharge, Comment : [facility] to recieve a months worth of free samples of Eliquis to take since the patient had said he would not pay for Eliquis due to the smith. He galindo use the free samples until he se Dr. Layne on 06/09 and discusses with him whether or not to continue the Eliquis. Chang Medrano, Case Filler-Student Nurse - 06/04/2021 15:42 EDT Electronically signed by Nikita [facility] Conversion Stamping Press Operator Cerner at 01/26/2023 8:54 PM CDT documented in this encounter Plan of Treatment Not on file documented as of this encounter Visit Diagnoses Not on filedocumented in this encounter
--- OUTSIDE RECORDS SUMMARY | 2025-08-15 12:00 | XMS_ITS | Encounter Summary ---
Author Organization [employer] ([place], [place], [place], [place], [place]) Address [address] [place] [address] Care Team Providers Care Career And Transition Teacher Name Role Phone Unavailable Primary Care Provider Unavailabl e Encounter Details Date Type Department Care Team (Late st Contact Info) Description 08/06/2020 Transcribed Document [facility] [place] [address] [place] [address] ProviderPrasanth MD [address] [place] [address] Social History Tobacco Use Types [...] On: 08/06/2020 9:04 EDT by ALVINA GIVENS RN-Wellness Ambassador Final Discharge Planning Discharge Arrangements : Patient [...] : Yes Discharge To Care Management : Home/Residential/[facility] or Self Care -01 ALVINA GIVENS RN-Wellness Ambassador - 08/06/2020 9:04 EDT Final Narrative Note Final Narrative Note : pt will dc home. was given eliquis card/coupon for free 30 day trial. no further cm needs. ALVINA GIVENS RN-Wellness Ambassador - 08/06/2020 9:04 EDT documented in this encounter Plan of Treatment Not on file documented as of this encounter Visit Diagnoses Not on filedocumented in this encounter
--- OUTSIDE RECORDS SUMMARY | 2025-08-15 12:00 | XMS_ITS | Encounter Summary ---
Author Organization [employer] ([place], [place], [place], [place], [place]) Address [address] [place] [address] Care Team Providers Care Oracle Applications Developer Name Role Phone Unavailable Primary Care Provider Unavailabl e Encounter Details Date Type Department Care Team (Late st Contact Info) Description 06/02/2021 Transcribed Document [facility] [place] [address] [place] [address] ProviderPrasanth MD [address] [place], [place] [...] On: 06/02/2021 12:40 EDT by Chang Medrano, Locksmith Apprentice-Student Nurse Teaching/Learning Assessment Barriers To Learning : None evident Individuals Taught : Patient Readiness to Learn : Cooperative Readiness to Learn : Explanation, Teach back method Learning Style Preferences Patient : Verbal explanation Learning Style Preferences Family : Verbal explanation Chang Medrano, Locksmith Apprentice-Student Nurse - 06/02/2021 15:51 EDT Education Topics: Stroke (By Discharge) Stroke Education Handouts Given *Q : Yes Chang Medrano Locksmith Apprentice-Student Nurse - 06/02/2021 15:51 EDT Stroke Education Materials Given-Grid Activation of EMS *Q : Verbalizes understanding Follow-up Care After Discharge *Q : Verbalizes understanding Medications prescribed at DC *Q : Verbalizes understanding Risk Factors for Stroke *Q : Verbalizes understanding Warning S&S of Stroke *Q : Verbalizes understanding Chang Medrano, Locksmith Apprentice-Student Nurse - 06/02/2021 15:51 EDT Individualized Stroke Risk Factors *Q : Coronary artery disease, Hypertension/High blood pressure Chang Medrano, Locksmith Apprentice-Student Nurse - 06/02/2021 15:51 EDT Electronically signed by Nikita, [facility] Conversion Ultrasonic Seaming Machine Operator Cerner at 01/26/2023 9:10 PM CDT documented in this encounter Plan of Treatment Not on file documented as of this encounter Visit Diagnoses Not on filedocumented in this encounter
--- OUTSIDE RECORDS SUMMARY | 2025-08-15 12:00 | XMS_ITS | Encounter Summary ---
Author Organization [employer] ([place], [place], [place], [place], [place]) Address [address] [place] [address] Care Team Providers Care Agency Legal Counsel Name Role Phone Unavailable Primary Care Provider Unavailabl e Encounter Details Date Type Department Care Team (Late st Contact Info) Description 09/26/2019 Transcribed Document [facility] [place] [facility] [place] [address] [place] [address] ProviderPrasanth MD [address] [place] [...] - Prasanth ProviderMD - 09/26/2019 11:20 AM RAW MATERIAL PLANNER Initial Discharge Planning Entered On: 09/26/2019 11:23 EST Performed On: 09/26/2019 11:20 EST by JAIMEE CARTAGENA Day Care Teacher-Petrophysicist Initial Assessment I Previously Documented Living Environment [...] Is Guardianship Needed : No JAIMEE CARTAGENA Day Care Teacher-Petrophysicist - 09/26/2019 11:20 EST Initial Assessment II Sensory and Motor Deficits : None Current Home Treatments and Equipment : None JAIMEE CARTAGENA Day Care Teacher-Petrophysicist - 09/26/2019 11:20 EST Discharge Needs I Anticipated Discharge To, CM : Home independently Current Home Treatment/Equipment : Current Home Treatment/Equipment No qualifying data available. Post Acute/Home Treatments : None Documentation Status Complete : Yes JAIMEE CARTAGENA Day Care Teacher-Petrophysicist - 09/26/2019 11:20 EST Discharge Needs II Professional Skilled Services : Professional Skilled Services No qualifying data available. Needs Assistance with Transportation : No Discharge Options Discussed with Patient : Discharge transportation, Home Health JAIMEE CARTAGENA Day Care Teacher-Petrophysicist - 09/26/2019 11:20 EST Narrative Note Narrative [...] CM will continue to follow. JAIMEE CARTAGENA Day Care Teacher-Petrophysicist - 09/26/2019 11:20 EST documented in this encounter Plan of Treatment Not on file documented as of this encounter Visit Diagnoses Not on filedocumented in this encounter
--- OUTSIDE RECORDS SUMMARY | 2025-08-15 12:00 | XMS_ITS | Encounter Summary ---
Author Organization [employer] ([place], [place], [place], [place], [place]) Address [address] [place] [address] Care Team Providers Care Concrete Pipe Maker Name Role Phone Unavailable Primary Care Provider Unavailabl e Encounter Details Date Type Department Care Team (Late st Contact Info) Description 06/02/2021 Transcribed Document [facility] [place] [address] [place] [address] ProviderPrasanth MD [address] [place] [address] Social History Tobacco Use Types [...] 06/02/2021 11:32 EDT Electronically signed by Nikita [facility] Conversion Special Effects Specialist Cerner at 01/26/2023 9:10 PM CDT documented in this encounter Plan of Treatment Not on file documented as of this encounter Visit Diagnoses Not on filedocumented in this encounter
--- OUTSIDE RECORDS SUMMARY | 2025-08-15 12:00 | XMS_ITS | Encounter Summary ---
Author Organization [employer] ([place], [place], [place], [place], [place]) Address [address] [place] [address] Care Team Providers Care Power Distribution Engineer Name Role Phone Unavailable Primary Care Provider Unavailabl e Encounter Details Date Type Department Care Team (Late st Contact Info) Description 06/03/2021 Transcribed Document [facility] [place] Family Medicine [address] [place] [address] ProviderPrasanth MD [address] [place] [address] Social History Tobacco Use Types [...] questions. Electronically signed by Carla Shelton Conversion Airconditioning Plant Operator Devynner at 01/26/2023 8:55 PM CDT documented in this encounter Plan of Treatment Not on file documented as of this encounter Visit Diagnoses Not on filedocumented in this encounter
--- OUTSIDE RECORDS SUMMARY | 2025-08-15 12:00 | XMS_ITS | Encounter Summary ---
Author Organization [employer] ([place], [place], [place], [place], [place]) Address [address] [place] [place] [address] Care Team Providers Care Coo Name Role Phone Unavailable Primary Care Provider Unavailabl e Encounter Details Date Type Department Care Team (Late st Contact Info) Description 08/05/2020 Transcribed Document [facility] [place] Family Medicine [address] [place] [address] ProviderPrasanth MD [address] [place] [address] Social History Tobacco Use Types Packs/Day Years Used Date Smoking Tobacco: Never Assessed Sex and Gender Information Value Date Recorded Sex Assigned at Not on file Legal Sex Male 6:49 PM CDT Gender Identity Not on file Sexual Orientation Not on file documented as of this encounter Miscellaneous Notes * Cerner Conversion Note - Historical ProviderMD - 08/05/2020 2:00 AM CDT Appeals Reviewer Veteran Details Entered On: 08/05/2020 1:07 EDT Performed On: 08/05/2020 2:00 EDT by Tish Calvillo Rn Order Details Order Detail : N/A Tish Calvillo Rn - 08/05/2020 1:07 EDT documented in this encounter Plan of Treatment Not on file documented as of this encounter Visit Diagnoses Not on filedocumented in this encounter
--- OUTSIDE RECORDS SUMMARY | 2025-08-15 12:00 | XMS_ITS | Encounter Summary ---
Author Organization [employer] ([place], [place], [place], [place], [place]) Address [address] [place] [address] Care Team Providers Care Chip Crusher Operator Name Role Phone Unavailable Primary Care Provider Unavailabl e Encounter Details Date Type Department Care Team (Late st Contact Info) Description 10/26/2019 Transcribed Document [facility] [place] Family Medicine [address] [place] [address] ProviderPrasanth MD [address] [place] [address] Social History Tobacco Use Types Packs/Day Years Used Date Smoking Tobacco: Never Assessed Sex and Gender Information Value Date Recorded Sex Assigned at Not on file Legal Sex Male 6:49 PM CDT Gender Identity Not on file Sexual Orientation Not on file documented as of this encounter Miscellaneous Notes * Cerner Conversion Note - Historical ProviderMD - 10/26/2019 4:21 PM KEY ACCOUNT COORDINATOR Education-General Entered On: 10/30/2019 4:52 EST Performed On: 10/26/2019 16:21 EST by Rimma Blackmon RN Teaching/Learning Assessment Barriers To Learning : None evident Individuals Taught : Patient, Family member Learning Style Preferences Patient : None Rimma Blackmon, RN - 10/30/2019 4:52 EST documented in this encounter Plan of Treatment Not on file documented as of this encounter Visit Diagnoses Not on filedocumented in this encounter
--- OUTSIDE RECORDS SUMMARY | 2025-08-15 12:00 | XMS_ITS | Encounter Summary ---
Author Organization [employer] ([place], [place], [place], [place], [place]) Address [address] [place] [address] Care Team Providers Care Lip And Gate Builder Name Role Phone Unavailable Primary Care Provider Unavailabl e Encounter Details Date Type Department Care Team (Late st Contact Info) Description 06/03/2021 Transcribed Document [facility] [place] [facility] [place] [address] ProviderPrasanth MD [address] [place] [address] Social History Tobacco Use Types [...] Associated Diagnoses: None Author: BINH NORIEGA NP [facility] CARDIOLOGY PROGRESS NOTE: DIAGNOSIS: 1. Elevated [...]
--- OUTSIDE RECORDS SUMMARY | 2025-08-15 12:00 | XMS_ITS | Encounter Summary ---
Author Organization [employer] ([place], [place], [place], [place], [place]) Address [address] [place] [address] Care Team Providers Care Nursing Informatics Specialist Name Role Phone Unavailable Primary Care Provider Unavailabl e Encounter Details Date Type Department Care Team (Late st Contact Info) Description 08/06/2020 Transcribed Document [facility] [place] Family Medicine [address] [place] [address] ProviderPrasanth MD [address] [place] [address] Social History Tobacco Use Types [...] Olya Escalera RN - 08/06/2020 4:10 EDT Electronically signed by Nikita [facility] Conversion Saddle Lining Stitcher Cerner at 01/26/2023 8:54 PM CDT documented in this encounter Plan of Treatment Not on file documented as of this encounter Visit Diagnoses Not on filedocumented in this encounter
--- OUTSIDE RECORDS SUMMARY | 2025-08-15 12:00 | XMS_ITS | Encounter Summary ---
Author Organization [employer] ([place], [place], [place], [place], [place]) Address [address] [place] [address] Care Team Providers Care Acid Condenser Name Role Phone Unavailable Primary Care Provider Unavailabl e Encounter Details Date Type Department Care Team (Late st Contact Info) Description 06/04/2021 Transcribed Document [facility] [place] Family Medicine [address] [place] [address] ProviderPrasanth MD [address] [place] [address] Social History Tobacco Use Types [...] 06/04/2021 6:59 EDT Electronically signed by Nikita [facility] Conversion Pile Driver Cerner at 01/26/2023 8:53 PM CDT documented in this encounter Plan of Treatment Not on file documented as of this encounter Visit Diagnoses Not on filedocumented in this encounter
--- OUTSIDE RECORDS SUMMARY | 2025-08-15 12:00 | XMS_ITS | Encounter Summary ---
Author Organization [employer] ([place], [place], [place], [place], [place]) Address [address] [place] [address] Care Team Providers Care Core Man Name Role Phone Unavailable Primary Care Provider Unavailabl e Encounter Details Date Type Department Care Team (Late st Contact Info) Description 06/03/2021 Transcribed Document [facility] [place] Family Medicine [address] [place] [address] ProviderPrasanth MD [address] [place] [address] Social History Tobacco Use Types [...] On: 06/03/2021 15:57 EDT by EMILIE MOON RN-Gut Carrier Initial Assessment I Previously Documented Living Environment : No qualifying data available. Living Situation : Home Patient Lives With : Spouse Employment/Vocation : Retired Emergency Contact #1 : Rosa Elena Bustamante Emergency Contact #1 Phone Number : [phone] Emergency Contact #1 Relationship : Emergency Contact #2 : na Emergency Contact #2 Phone Number : na Emergency Contact #2 Relationship : na Enter Doctors Name : Nicole Juan Does Patient have PCP Listed? : Yes Medical Durable Power of Equipment Maintenance Superintendent Name : Legal Guardian : No EMILIE MOON RN-Gut Carrier - 06/03/2021 15:57 EDT Initial Assessment II Sensory and Motor Deficits : None, Weakness Current Home Treatments and Equipment : None EMILIE MOON RN-Gut Carrier - 06/03/2021 15:57 EDT Discharge Needs I Anticipated Discharge Date : 06/06/2021 EDT Anticipated Discharge To, CM : Home with family care, Home with home health Current Home Treatment/Equipment : Current Home Treatment/Equipment No qualifying data available. Documentation Status Complete : Yes EMILIE MOON RN-Gut Carrier - 06/03/2021 15:57 EDT Discharge Needs II Professional Skilled Services : Professional Skilled Services No qualifying data available. Needs Assistance with Transportation : No Discharge Options Discussed with Patient : Discharge transportation, DME, Home Health Patient Discharge Goal : Home EMILIE MOON RN-Gut Carrier - 06/03/2021 15:57 EDT Narrative Note Narrative [...] pain. Consults: Cardiology, Neurology Patient lives in [place] with his Rosa Elena [phone]. His PCP is Dr. Martinez. Patient is ADL independent, drives and very active at home. No prior rehab stay, home health services, home oxygen or DME. will transport at discharge. DCP: Anticipate patient will discharge home with . CM will continue to follow for any needed referrals. EMILIE MOON RN-Gut Carrier - 06/03/2021 15:57 EDT documented in this encounter Plan of Treatment Not on file documented as of this encounter Visit Diagnoses Not on filedocumented in this encounter
--- OUTSIDE RECORDS SUMMARY | 2025-08-15 12:00 | XMS_ITS | Encounter Summary ---
Author Organization [employer] ([place], [place], [place], [place], [place]) Address [address] [place] [address] Care Team Providers Care Web Systems Developer Name Role Phone Unavailable Primary Care Provider Unavailabl e Encounter Details Date Type Department Care Team (Late st Contact Info) Description 06/03/2021 Transcribed Document [facility] [place] Family Medicine [address] [place] [address] ProviderPrasanth MD [address] [place] [address] Social History Tobacco Use Types Packs/Day Years Used Date Smoking Tobacco: Never Assessed Sex and Gender Information Value Date Recorded Sex Assigned at Not on file Legal Sex Male 6:49 PM CDT Gender Identity Not on file Sexual Orientation Not on file documented as of this encounter Miscellaneous Notes * Cerner Conversion Note - Historical ProviderMD - 06/03/2021 11:03 AM CDT DOCTOR OF OSTEOPATHY Attempt to Treat Entered On: 06/03/2021 11:03 EDT Performed On: 06/03/2021 11:03 EDT by JANES WHITTINGTON SLP Attempt to Treat Inability to Treat Comment : Further cognitive evaluation not warranted. Notification : JANES LAM SLP - 06/03/2021 11:03 EDT Electronically signed by Nikita [facility] Conversion Barrel And Receiver Aligner Cerner at 01/26/2023 9:10 PM CDT documented in this encounter Plan of Treatment Not on file documented as of this encounter Visit Diagnoses Not on filedocumented in this encounter
--- OUTSIDE RECORDS SUMMARY | 2025-08-15 12:00 | XMS_ITS | Encounter Summary ---
Author Organization [employer] ([place], [place], [place], [place], [place]) Address [address] [place] [address] Care Team Providers Care Stitch Burnisher Name Role Phone Unavailable Primary Care Provider Unavailabl e Encounter Details Date Type Department Care Team (Late st Contact Info) Description 06/03/2021 Transcribed Document [facility] [place] Family Medicine [address] [place] [address] ProviderPrasanth MD [address] [place] [address] Social History Tobacco Use Types [...] On: 06/03/2021 9:00 EDT by Chang Medrano, Ad Taker-Student Nurse NIH Stroke Scale *Q NIH Assessment [...] NIH Scale Score : 0 Chang Medrano, Ad Taker-Student Nurse - 06/03/2021 7:31 EDT documented in this encounter Plan of Treatment Not on file documented as of this encounter Visit Diagnoses Not on filedocumented in this encounter
--- OUTSIDE RECORDS SUMMARY | 2025-08-15 12:01 | XMS_ITS | Encounter Summary ---
Author Organization [employer] ([place], [place], [place], [place], [place]) Address [address] [place] [address] Care Team Providers Care Spool Salvager Name Role Phone Unavailable Primary Care Provider Unavailabl e Encounter Details Date Type Department Care Team (Late st Contact Info) Description 10/29/2019 Transcribed Document [facility] [place] Family Medicine [address] [place] [address] ProviderPrasanth MD [address] [place] [address] Social History Tobacco Use Types Packs/Day Years Used Date Smoking Tobacco: Never Assessed Sex and Gender Information Value Date Recorded Sex Assigned at Not on file Legal Sex Male 6:49 PM CDT Gender Identity Not on file Sexual Orientation Not on file documented as of this encounter Miscellaneous Notes * Cerner Conversion Note - Prasanth ProviderMD - 10/29/2019 7:03 AM AIR HOIST OPERATOR Admission History, Adult Entered On: 10/29/2019 [...] Ambulatory Legal Guardian : No Support Person/Patient Wet Machine Operator : Yes Support Person/Pt Rep Name : Rosa Elena Cormier- spouse Support Person/Pt Rep Contact Information : [phone] home Want Family/Rep/Phys Notified of Admit : No Emergency Contact #1 : Rosa Elena Cormier Emergency Contact #1 Emergency Contact #1 Relationship : Emergency Contact #2 : na Emergency Contact #2 Phone Number : na Emergency Contact #2 Relationship : na Information Obtained From : Patient Primary Language : Vietnamese Preferred Communication Mode : Verbal Communication Barrier [...] Scale Risk Level : 0-24 Low Risk [place] Fall Interventions : Adequate lighting, Assistive devices [...] Source : Measured Height Entry Format : Lyndon Height, Feet : 5 ft(Converted to: 152 cm, 60 Inch) Height, Inches : 9 Inch(Converted to: 0 ft 9 Inch, 22.86 cm) Clinical Height : 175.26 cm Weight Source : Standing scale Weight Entry Format : Lyndon Clinical Dosing Weight : 92.5 kg Weight, Pounds : 203 lb Weight, Ounces : 8 oz Body Surface Area (BSA) : 2.08 m2 Body Mass Index : 30.1 kg/m2 (HI) Kiron Body Weight : 70 kg Rosalee Barrios [...] Rosalee Barrios RN - 10/29/2019 12:03 EST [place] Suicide Severity Rating Scale (C-SSRS) CSSRS Past [...]
--- OUTSIDE RECORDS SUMMARY | 2025-08-15 12:01 | XMS_ITS | Encounter Summary ---
Author Organization [employer] ([place], [place], [place], [place], [place]) Address [address] [place] [address] Care Team Providers Care Hand Knitter Name Role Phone Unavailable Primary Care Provider Unavailabl e Encounter Details Date Type Department Care Team (Late st Contact Info) Description 08/06/2020 Transcribed Document [facility] [place] Family Medicine [address] [place] [address] ProviderPrasanth MD [address] [place] [address] Social History Tobacco Use [...] Sanchez MD - 08/06/2020 1:08 PM CD[place] [address] SHIRA GARZA :1935 Visit Time:08/06/2020 Your [...] Comments f/y tavr with [facility] Where: [address] [facility] [address] [place] [address]- Business (1) Follow Up with LACIE ALVA When 08/21/2020 11:15 AM EST Comments 08/21 @ 11:15am Where: [address] [place] [address]- Business (1) Follow Up with KARON MCWILLIAMS When Within 1 week Comments f/u aov stenosis and troponin leak/chestpain Call for follow up appointment Where: [address] [facility] [place] [address] Business (1) Medications What How Much When Instructions Next Dose apixaban (Eliquis 5 mg oral tablet) 1 Tablet(s) Oral Interval Every 12 Hours START AM Pickup at [facility] isosorbide mononitrate (isosorbide mononitrate 20 mg oral tablet) 1 Tablet(s) Oral Two Times A Day Pickup at [facility] aspirin 81 Milligram(s) Every Day atorvastatin (atorvastatin 20 mg oral tablet) 1 Tablet(s) Oral Tuesday hydrochlorothiazide-lisinopril (hydroCHLOROthiazide-lisinopril 12.5 mg-20 mg oral tablet) 1 Tablet(s) Oral Every Day multivitamin 1 Tablet(s) Oral Every Day nitroglycerin (Nitrostat 0.4 mg sublingual tablet) 1 Tablet(s) SubLINgual Every 5 minutes as needed for as needed for chest pain Pharmacy Information [facility]: [address] [address] [phone] Take your medications faithfully. Do NOT skip [...] The two forms of aspirin are: ? Wjg-xlsxsyw-zkxehy.This type of aspirin does not have a coating and is absorbed quickly. This type of aspirin also comes in a chewable form. ? Enteric-coated. This type of aspirin has a coating that releases the medicine very slowly. Enteric-coated aspirin might cause less stomach upset than cbo-ljnqrjk-ebcrwr aspirin. This type of aspirin should not [...] 09/08/2009 Document Revised: 07/27/2018 Document Reviewed: 07/27/2018 [employer] Patient Education ?? 2020 [employer]. Acute Coronary Syndrome Acute coronary syndrome (ACS) [...] a heart-healthy eating plan. Medicines ??? Take xfhq-tev-aqbjrvc and prescription medicines only as told by [...] Reviewed: 10/08/2019 Elsevier Patient Education ?? 2020 [employer] Mitral Valve Replacement Mitral valve replacement [...] including vitamins, herbs, eye drops, creams, and mxdb-rgj-hrghoev medicines. ??? Any problems you or family [...] tells you to take them. ? Taking ncmy-ing-touiejs medicines, vitamins, herbs, and supplements. Staying hydrated [...] Reviewed: 06/19/2019 Elsevier Patient Education ?? 2020 [employer] Venous Thromboembolism Prevention Venous thromboembolism (VTE) [...] for Disease Control and Prevention: www.cdc.gov ??? [place] Heart Association: www.heart.org Get help right away [...] 09/14/2010 Document Revised: 01/15/2020 Document Reviewed: 12/04/2019 [employer] Patient Education ?? 2020 [employer] Emergency Awareness and Preventative Care STROKE [...] Assistance with quitting is available by contacting 8-957-XVXZNOW. This is a free resource providing counseling, support, and referral. Or you may contact your personal physician. [place] Suicide Prevention Lifeline: The National Suicide Prevention [...] range between ( 0.0 and 7.0 ) Rich #: 0.56 K/uL -- Normal range between ( 0.16 and 1.00 ) Eos #: 0.05 x10(3)/uL -- Normal range between ( 0.00 and 0.80 ) Rich %: 10.1 % -- Normal range between [...] /LPF Urine Bilirubin Dipstick: Negative Urine Specific [place]: 1.023 -- Normal range between ( 1.005 and 1.030 ) Urine Type.: U CleanCatch General Chemistry 08/06/2020 10:30 AM Glucose POC2: [...] was given the opportunity to ask questions. Patient/Meat Puller Name: Patient/Meat Puller Signature: Relationship to Patient: Clinician/Hospital Meat Puller Signature: Date: Electronically signed by Nikita, Carla Conversion Interventional Sale Consultant Cerner at 01/26/2023 8:59 PM CDT documented in this encounter Plan of Treatment Not on file documented as of this encounter Visit Diagnoses Not on filedocumented in this encounter
--- OUTSIDE RECORDS SUMMARY | 2025-08-15 12:01 | XMS_ITS | Encounter Summary ---
Author Organization [employer] ([place], [place], [place], [place], [place]) Address [address] [place] [address] Care Team Providers Care Credit Clerk Name Role Phone Unavailable Primary Care Provider Unavailabl e Encounter Details Date Type Department Care Team (Late st Contact Info) Description 06/04/2021 Transcribed Document [facility] [place] [facility] [place] [address] ProviderPrasanth MD [address] [place] [address] Social History Tobacco Use Types [...] reliability. This morning he tried to call [facility] cardiology to report chest discomfort [...] tablet 5 mg = 1 Tab, Oral, [id number] hydroCHLOROthiazide-lisinopril 12.5 mg-20 mg oral tablet 1 [...] Type: Blood, Routine collect, 06/06/21 21:45:00 EDT, Priti, Lab Collect Platelet Count Specimen Type: Blood, Routine collect, 06/04/21 12:40:00 EDT, Q48H, Nurse Collect Time Spent on Discharge 45 minutes [1] CR Chest 2 Vws; Kezia Louise, Vamp Presser 06/02/2021 10:51 EDT [2] ECHO REPORT - [...] 06/03/2021 13:11 EDT Electronically signed by Nikita [facility] Conversion Population Health Manager Cerner at 01/26/2023 8:52 PM CDT documented in this encounter Plan of Treatment Not on file documented as of this encounter Visit Diagnoses Not on filedocumented in this encounter
--- OUTSIDE RECORDS SUMMARY | 2025-08-15 12:01 | XMS_ITS | Encounter Summary ---
Author Organization [employer] ([place], [place], [place], [place], [place]) Address [address] [place] [address] Care Team Providers Care Roll Skinner Name Role Phone Unavailable Primary Care Provider Unavailabl e Encounter Details Date Type Department Care Team (Late st Contact Info) Description 10/29/2019 Transcribed Document [facility] [place] [address] [place] [address] ProviderPrasanth MD [address] [place] [address] Social History Tobacco Use Types Packs/Day Years Used Date Smoking Tobacco: Never Assessed Sex and Gender Information Value Date Recorded Sex Assigned at Not on file Legal Sex Male 6:49 PM CDT Gender Identity Not on file Sexual Orientation Not on file documented as of this encounter Miscellaneous Notes * [employer]ner Conversion Note - Historical ProviderMD - 10/29/2019 9:12 AM SENIOR RELATIONSHIP MANAGER Education-Diabetes Topics Entered On: 10/30/2019 4:51 EST [...]
--- OUTSIDE RECORDS SUMMARY | 2025-08-15 12:01 | XMS_ITS | Encounter Summary ---
Author Organization [employer] ([place], [place], [place], [place], [place]) Address [address] [place] [address] Care Team Providers Care Superintendent Refuse Disposal Name Role Phone Unavailable Primary Care Provider Unavailabl e Encounter Details Date Type Department Care Team (Late st Contact Info) Description 10/29/2019 Transcribed Document [facility] Cardiology [address] [place] [address] Jamshid Holman MD [address] [facility] [address] [place] [id number] Social History Tobacco Use Types Packs/Day Years [...] 2. Using a micropuncture access needle, a 4-Andorran sheath was inserted in the right common femoral artery. Angiography revealed appropriate sheath position and arterial size for a large sheath insertion. A 6-Andorran sheath was inserted. The 6-Andorran was exchanged for a single Perclose deployed in a pre-close technique and the sheath upsized to 8-Andorran. Of note, the first two Perclose catheters missed but a wire was inserted and a third Perclose took appropriately. A 6-Andorran sheath was inserted in the left femoral artery and a 6-Andorran sheath was inserted in the left femoral vein. Through the venous sheath, a 5-Andorran transvenous pacemaker was inserted and advanced to the right ventricular free wall. Pacing capture was confirmed. Through the 6-Andorran arterial sheath, a 5-Andorran pigtail catheter was inserted and advanced to the right coronary cusp. Supravalvular aortography was performed. 3. The 8-Andorran sheath was exchanged over a support wire for a 16-Andorran Mancia eSheath which was secured with suture. Heparin was administered to achieve a therapeutic ACT. 4. Through the Mancia sheath, a 6-Andorran AL1 diagnostic catheter and a straight-tipped 0.035 [...] pacing, the valve was deployed with prompt sikhism of stable hemodynamics and rhythm. The delivery [...] Perclose was tightened with good hemostasis. A 6-Andorran arterial sheath was removed and a Mynx closure was deployed with good hemostasis. The venous sheath was removed and manual compression was held with good hemostasis. 7. The patient was transferred to the postanesthesia care unit in stable condition. 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 /[id number] MD LAKISHA Cal[employer]/ASHLEY / LAKISHA / MODL /[id number] documented in this encounter Plan of Treatment Not on file documented as of this encounter Visit Diagnoses Not on filedocumented in this encounter
--- OUTSIDE RECORDS SUMMARY | 2025-08-15 12:01 | XMS_ITS | Encounter Summary ---
Author Organization [employer] ([place], [place], [place], [place], [place]) Address [address] [place] [address] Care Team Providers Care Tree Pruner Name Role Phone Unavailable Primary Care Provider Unavailabl e Encounter Details Date Type Department Care Team (Late st Contact Info) Description 11/07/2019 Transcribed Document [facility] Radiology 1 [place] [address] Abel Kapadia MD [address] [place] [address] [place] [address] Social History Tobacco Use Types Packs/Day Years [...] 11/08/2019 PRIMARY CARE PHYSICIAN: Dr. Marcelino Caldera, [facility]. REFERRING PHYSICIAN: Dr. Beckman, [facility] , 1935. CURRENT COMPLAINT: Falls, dizziness, irregular heartbeat. HISTORY OF PRESENT ILLNESS: Shira Garza is an 84-year-old man, , living in the [facility], who recently underwent a transcatheter aortic valve [...] At risk for sleep apnea / IMO 02806793 / Confirmed Shortness of breath / SNOMED CT 999974121 / Confirmed Hypertension / SNOMED CT 53504919 / Confirmed Wears glasses / SNOMED CT 730017986 / Confirmed, Active Problems (11) Aortic stenosis [...] gallop, S1+ S2 No S3 or S4 [place].. Gastrointestinal: Soft, Non-tender, Non-distended, Normal bowel sounds. [...] (NOV 04) Radiology Results (Last 48 hours) [id number] -- 11/04/2019 21:19 CT Head WO (11/05/2019 [...] personally viewed, interpreted and dictated the examination. Ihidania read and agree with the above final [...]
--- OUTSIDE RECORDS SUMMARY | 2025-08-15 12:01 | XMS_ITS | Encounter Summary ---
Author Organization [employer] ([place], [place], [place], [place], [place]) Address [address] [place] [address] Care Team Providers Care Piano Tuner Name Role Phone Unavailable Primary Care Provider Unavailabl e Encounter Details Date Type Department Care Team (Late st Contact Info) Description 08/06/2020 Transcribed Document [facility] [place] [address] [place] [address] ProviderPrasanth MD [address] [place] [address] Social History Tobacco Use Types [...] nitroglycerin and presentation to outside ER at [facility] in [place]. Patient was subsequently transferred here for further [...] tablet 5 mg = 1 Tab, Oral, [id number] hydroCHLOROthiazide-lisinopril 12.5 mg-20 mg oral tablet 1 [...] Ratio 0.9 LOW 08/05/2020 19:33 Bun/Creatinine 22.5 OK 08/05/2020 19:33 Sodium Level 139 mmol/L 08/05/2020 09:53 Potassium Level 3.8 mmol/L 08/05/2020 09:53 Chloride Level 107 mmol/L 08/05/2020 09:53 Carbon Dioxide Level 30 mmol/L 08/05/2020 09:53 Anion Gap 6 LOW 08/05/2020 10:00 Alk Phos 62 Units/Liter 08/05/2020 09:53 ALT 25 Units/Liter 08/05/2020 09:53 AST 27 Units/Liter 08/05/2020 09:53 Blood Urea Nitrogen 27 mg/dL OK 08/05/2020 09:59 Glucose Level 106 mg/dL 08/05/2020 09:53 Albumin Level 3.2 Gram/dL LOW 08/05/2020 10:00 Bilirubin Total 0.5 mg/dL 08/05/2020 09:53 Calcium Level 8.6 mg/dL 08/05/2020 09:53 Coagulation Results (Current Encounter/Past 24 Hours) PT 37.0 Second(s) OK 08/06/2020 04:25 INR 3.5 OK 08/06/2020 04:25 Creatinine Clearance (Current Encounter/Past 24 Hours) Creatinine Level 1.20 mg/dL 08/05/2020 09:53 Bun/Creatinine 22.5 OK 08/05/2020 09:53 Estimated Creatinine Clearance 46.64 mL/Min [...] CR Chest 1 [place]; Neha Leung, Reducing Machine Operator 08/04/2020 12:54 EDT [2] [facility]; WINNIE AYALA MD-CAR 08/04/2020 13:14 EDT [3] Admission H & P; CJ AVITIA MD-INT 08/04/2020 15:01 EDT Electronically signed by Nikita [facility] Conversion Motor Vehicle Clerk Cerner at 01/26/2023 9:11 PM CDT documented in this encounter Plan of Treatment Not on file documented as of this encounter Visit Diagnoses Not on filedocumented in this encounter
--- OUTSIDE RECORDS SUMMARY | 2025-08-15 12:01 | XMS_ITS | Encounter Summary ---
Author Organization [employer] ([place], [place], [place], [place], [place]) Address [address] [place] [address] Care Team Providers Care Logistics Operations Director Name Role Phone Unavailable Primary Care Provider Unavailabl e Encounter Details Date Type Department Care Team (Late st Contact Info) Description 11/07/2019 Transcribed Document [facility] Radiology 1 [place] [address] Abel Kapadia MD [address] [place] [address] [place] [address] Social History Tobacco Use Types Packs/Day Years [...] 11/08/2019 PRIMARY CARE PHYSICIAN: Dr. Marcelino Caldera, [facility]. REFERRING PHYSICIAN: Dr. Beckman, [facility] , 1935. CURRENT COMPLAINT: Falls, dizziness, [...] At risk for sleep apnea / IMO [id number] / Confirmed Shortness of breath / SNOMED CT 281869175 / Confirmed Hypertension / SNOMED CT 10821276 / Confirmed Wears glasses / SNOMED CT 884079509 / Confirmed, Active Problems (11) Aortic stenosis [...] gallop, S1+ S2 No S3 or S4 [place].. Gastrointestinal: Soft, Non-tender, Non-distended, Normal bowel sounds. [...] (NOV 04) Radiology Results (Last 48 hours) [id number] -- 11/04/2019 21:19 CT Head WO (11/05/2019 [...]
--- OUTSIDE RECORDS SUMMARY | 2025-08-15 12:01 | XMS_ITS | Encounter Summary ---
Author Organization [employer] ([place], [place], [place], [place], [place]) Address [address] [place] [address] Care Team Providers Care Drupal Programmer Name Role Phone Unavailable Primary Care Provider Unavailabl e Encounter Details Date Type Department Care Team (Late st Contact Info) Description 12/30/2020 Transcribed Document [facility] Family Medicine [address] [place] [address] ProviderPrasanth MD [address] [place] [address] Social History Tobacco Use Types [...] Mini Abreu RN - 12/30/2020 10:42 EDT Electronically signed by Nikita [facility] Conversion Billing Department Supervisor Cerner at 01/26/2023 9:01 PM CDT documented in this encounter Plan of Treatment Not on file documented as of this encounter Visit Diagnoses Not on filedocumented in this encounter
--- OUTSIDE RECORDS SUMMARY | 2025-08-15 12:01 | XMS_ITS | Encounter Summary ---
Author Organization [employer] ([place], [place], [place], [place], [place]) Address [address] [place] [address] Care Team Providers Care Foundation Engineer Name Role Phone Unavailable Primary Care Provider Unavailabl e Encounter Details Date Type Department Care Team (Late st Contact Info) Description 10/29/2019 Transcribed Document [facility] [place] [facility] [place] Medicine [address] [place] [address] ProviderPrasanth MD [address] [place] [address] Social History Tobacco Use Types Packs/Day Years Used Date Smoking Tobacco: Never Assessed Sex and Gender Information Value Date Recorded Sex Assigned at Not on file Legal Sex Male 6:49 PM CDT Gender Identity Not on file Sexual Orientation Not on file documented as of this encounter Miscellaneous Notes * Cerner Conversion Note - Prasanth ProviderMD - 10/29/2019 8:11 AM OFFICE NURSE PRACTITIONER [facility] Main OR PACU Summary Primary Physician: MARK HAIRSTON MD-CAT Finalized Date/Time: 10/29/19 11:47:09 Pt. Name: SHIRA GARZA HORACIO /Sex: 1935 Male Med Rec #: [id number] Physician: MARK HAIRSTON MD-CAT Financial #: [id number] Pt. Type: I Room/Bed: [facility]/1 Admit/Disch: 10/29/19 07:03:00 - Institution: [facility] Main OR PACU I Case Times [...]
--- OUTSIDE RECORDS SUMMARY | 2025-08-15 12:01 | XMS_ITS | Encounter Summary ---
Author Organization [employer] ([place], [place], [place], [place], [place]) Address [address] [place] [address] Care Team Providers Care Sous Chef Kitchen Manager Name Role Phone Unavailable Primary Care Provider Unavailabl e Encounter Details Date Type Department Care Team (Late st Contact Info) Description 06/04/2021 Transcribed Document [facility] [place] [address] [place] [address] ProviderPrasanth MD [address] [place] [address] Social History Tobacco Use Types [...] On: 06/04/2021 9:00 EDT by Chang Medrano, Tumbling Instructor-Student Nurse NIH Stroke Scale *Q NIH Assessment [...] NIH Scale Score : 0 Chang Medrano, Tumbling Instructor-Student Nurse - 06/04/2021 8:19 EDT documented in this encounter Plan of Treatment Not on file documented as of this encounter Visit Diagnoses Not on filedocumented in this encounter
--- OUTSIDE RECORDS SUMMARY | 2025-08-15 12:01 | XMS_ITS | Encounter Summary ---
Author Organization [employer] ([place], [place], [place], [place], [place]) Address [address] [place] [address] Care Team Providers Care Filter Changing Technician Name Role Phone Unavailable Primary Care Provider Unavailabl e Encounter Details Date Type Department Care Team (Late st Contact Info) Description 11/07/2019 Transcribed Document [facility] [place] [address] [place] [address] ProviderPrasanth MD [address] [place] [address] Social History Tobacco Use Types Packs/Day Years Used Date Smoking Tobacco: Never Assessed Sex and Gender Information Value Date Recorded Sex Assigned at Not on file Legal Sex Male 6:49 PM CDT Gender Identity Not on file Sexual Orientation Not on file documented as of this encounter Miscellaneous Notes * [employer] Conversion Note - Historical ProviderMD - 11/07/2019 3:18 AM CHLORINATION OPERATOR Height and Weight, Routine Entered On: 11/07/2019 3:18 EST Performed On: 11/07/2019 3:18 EST by Sal Hurt, Patent LawyerHealth Unit Coord Height and Weight, Routine Routine Weight Source : Bed scale Routine Weight Entry Format : Metric Routine Weight, Kilograms : 89.7 kg(Converted to: 197 lb 12 oz) Routine Weight Calculation : 89.7 kg Height Source : Stated Height Entry Format : [place] Height, Feet : 5 ft Height, Inches : 9 Inch Clinical Height : 175.26 cm Body Surface Area (BSA), Routine : 2.06 m2 Body Mass Index (BMI), Routine : 29.2 kg/m2 Sal Hurt, Patent Lawyer-Health Unit Coord - 11/07/2019 3:18 EST Electronically signed by Nikita [facility] Conversion First Sampler Cerner at 01/26/2023 9:10 PM CDT documented in this encounter Plan of Treatment Not on file documented as of this encounter Visit Diagnoses Not on filedocumented in this encounter
--- OUTSIDE RECORDS SUMMARY | 2025-08-15 12:01 | XMS_ITS | Encounter Summary ---
Author Organization [employer] ([place], [place], [place], [place], [place]) Address [address] [place] [address] Care Team Providers Care Warrant Clerk Name Role Phone Unavailable Primary Care Provider Unavailabl e Encounter Details Date Type Department Care Team (Late st Contact Info) Description 08/06/2020 Transcribed Document [facility] [place] [address] [place] [address] ProviderPrasanth MD [address] [place] [address] Social History Tobacco Use Types [...]
--- OUTSIDE RECORDS SUMMARY | 2025-08-15 12:01 | XMS_ITS | Encounter Summary ---
Author Organization [employer] ([place], [place], [place], [place], [place]) Address [address] [place] [address] Care Team Providers Care Abstract Clerk Name Role Phone Unavailable Primary Care Provider Unavailabl e Encounter Details Date Type Department Care Team (Late st Contact Info) Description 10/29/2019 Transcribed Document [facility] Family Medicine [address] [place] [address] ProviderPrasanth MD [address] [place] [address] Social History Tobacco Use [...] Prasanth Sanchez MD - 10/29/2019 10:20 AM REPORTING DEVELOPER DATE OF PROCEDURE: 10/29/2019 SURGEON: Michael Fontana [...] that, we were able to place a 6-Taiwanese sheath into the right common femoral artery. Angiography revealed an appropriate sheath size and position for a large sheath insertion. A guidewire was then placed into the right common femoral artery and a 6-Taiwanese sheath was then subsequently removed. A single Perclose was then deployed in a pre-close fashion and the sheath was then up sized to an 8-Taiwanese. A 6-Taiwanese sheath was then also inserted into the left common femoral vein and another 6-Taiwanese sheath was placed in the left common femoral artery. A 5-Taiwanese transvenous pacemaker was inserted through the venous sheath and was advanced under fluoroscopic guidance to the right ventricular free wall. Pacing capture was confirmed. A 5-Taiwanese pigtail catheter was then advanced through the left common femoral arterial sheath and was positioned in the right coronary cusp. Supravalvular aortography was then performed. Coplanar view was confirmed. Amplatz Extra Stiff wire was then placed into the 8-Taiwanese right femoral arterial sheath and was advanced. The 8-Taiwanese right femoral arterial sheath was then removed, and after dilatation of the tissue tract, a 16-Taiwanese Mancia eSheath was inserted without difficulty. This sheath was then secured to the skin using silk suture. Heparin was then also administered to achieve a therapeutic ACT. Over the Amplatz Extra Stiff wire, a 6-Taiwanese AL1 diagnostic catheter was advanced and a [...] wire and the Perclose was tightened. The 6-Taiwanese sheath from the left common femoral artery [...] to the recovery room in stable condition. /[id number] MD DARREN Caro/ASHLEY / HRM / MODL /[id number] CC: MD Jason Caro MD Ryan Waddles, MD Electronically signed by [facility] Conversion Ur Coordinator Cerner at 01/26/2023 8:51 PM CDT documented in this encounter Plan of Treatment Not on file documented as of this encounter Visit Diagnoses Not on filedocumented in this encounter
--- OUTSIDE RECORDS SUMMARY | 2025-08-15 12:01 | XMS_ITS | Encounter Summary ---
Author Organization [employer] ([place], [place], [place], [place], [place]) Address [address] [place] [address] Care Team Providers Care Router Machine Operator Name Role Phone Unavailable Primary Care Provider Unavailabl e Encounter Details Date Type Department Care Team (Late st Contact Info) Description 11/07/2019 Transcribed Document [facility] [place] [address] [place] [address] ProviderPrasanth MD [address] [place] [address] Social History Tobacco Use Types Packs/Day Years Used Date Smoking Tobacco: Never Assessed Sex and Gender Information Value Date Recorded Sex Assigned at Not on file Legal Sex Male 6:49 PM CDT Gender Identity Not on file Sexual Orientation Not on file documented as of this encounter Miscellaneous Notes * Cerner Conversion Note - Prasanth ProviderMD - 11/07/2019 2:30 PM RESIDENTIAL DRIVER On Going Discharge Planning Entered On: 11/07/2019 14:32 EST Performed On: 11/07/2019 14:30 EST by BINH SIDDIQI, RN-Recreational Therapy TechnicianEarth Science Teacher Progress Note Discharge Arrangements : Patient Post-Acute Information Patient Name: SHIRA GARZA HORACIO Gender: Male : [birth year] Age: 84 Years No Post-Acute Placement(s) Listed No Post-Acute Service(s) Listed No [place] Referral(s) Listed Discharge Options Discussed with Patient : Home Health BINH SIDDIQI, RN-Recreational Therapy Technician - 11/07/2019 14:30 EST Narrative Progress Note [...] and assist w/needs as approp. ROSANA CALLEJAS, RN-Recreational Therapy Technician - 11/05/19 17:54:54 BINH SIDDIQI, RN-Recreational Therapy Technician - 11/07/2019 14:30 EST documented in this encounter Plan of Treatment Not on file documented as of this encounter Visit Diagnoses Not on filedocumented in this encounter
--- OUTSIDE RECORDS SUMMARY | 2025-08-15 12:01 | XMS_ITS | Encounter Summary ---
Author Organization [employer] ([place], [place], [place], [place], [place]) Address [address] [place] [address] Care Team Providers Care Cost Control Supervisor Name Role Phone Unavailable Primary Care Provider Unavailabl e Encounter Details Date Type Department Care Team (Late st Contact Info) Description 11/07/[address] [facility] Family Medicine [address] [place] [address] ProviderPrasanth MD [address] [place] [address] Social History Tobacco Use Types Packs/Day Years Used Date Smoking Tobacco: Never Assessed Sex and Gender Information Value Date Recorded Sex Assigned at Not on file Legal Sex Male 6:49 PM CDT Gender Identity Not on file Sexual Orientation Not on file documented as of this encounter Miscellaneous Notes * [employer]ner Conversion Note - Historical ProviderMD - 11/07/2019 5:00 AM NECK BAND SETTER Chart Check - Review Order Profile Entered [...]
--- OUTSIDE RECORDS SUMMARY | 2025-08-15 12:01 | XMS_ITS | Encounter Summary ---
Author Organization [employer] ([place], [place], [place], [place], [place]) Address [address] [place] [address] Care Team Providers Care Plating And Point Assembly Supervisor Name Role Phone Unavailable Primary Care Provider Unavailabl e Encounter Details Date Type Department Care Team (Late st Contact Info) Description 06/04/2021 Transcribed Document [facility] [place] [address] [place] [address] ProviderPrasanth MD [address] [place] [address] Social History Tobacco Use Types [...] is also called a myocardial infarction, or NV. If you think you are having a [...] these instructions at home: Medicines ??? Take jtcg-jiv-ihfwskq and prescription medicines only as told by [...] provider. Document Revised: 01/07/2020 Document Reviewed: 01/07/2020 [employer] systems Patient Education ? 2019 [employer] Coronary Artery Disease, Male Coronary artery disease (CAD) is a condition in which the arteries that lead to the heart (coronary arteries) become narrow or blocked. The narrowing or blockage can lead to decreased blood flow to the heart. Prolonged reduced blood flow can cause a heart attack (myocardial infarction or NV). This condition may also be called coronary [...] these instructions at home: Medicines ??? Take ugph-kkx-dssinoz and prescription medicines only as told by [...] Reviewed: 06/05/2019 Elsevier Patient Education ? 2019 [employer] Hematology Bleeding Precautions When on Anticoagulant [...] blood clot. Taking other medicines ??? Take nexc-zhc-rsqwzyh and prescriptions medicines only as told by your health care provider. ??? Do not take yxlx-uih-ckntysz NSAIDs, including aspirin and ibuprofen, while you [...] use toothpicks. ??? Use a soft-bristled toothbrush. [place] your teeth gently. ??? Always wear shoes [...] ??? Work with a diet and nutrition director (dietitian) to make an eating [...] provider. Document Revised: 01/16/2020 Document Reviewed: 12/13/2017 [employer] Patient Education ? 2019 [employer] Neurology Transient Ischemic Attack A transient [...] these instructions at home: Medicines ??? Take fiqh-dgw-pbyghpk and prescription medicines only as told by [...] provider. Document Revised: 06/22/2019 Document Reviewed: 12/28/2017 [employer] Patient Education ? 2020 [employer]. Preventive Health Venous Thromboembolism Prevention Venous thromboembolism [...] for Disease Control and Prevention: www.cdc.gov ??? [place] Heart [employer]: www.heart.org Get help right away [...] provider. Document Revised: 01/15/2020 Document Reviewed: 12/04/2019 [employer] Patient Education ? 2020 [employer] documented in this encounter Plan of Treatment Not on file documented as of this encounter Visit Diagnoses Not on filedocumented in this encounter
--- OUTSIDE RECORDS SUMMARY | 2025-08-15 12:01 | XMS_ITS | Encounter Summary ---
Author Organization [employer] ([place], [place], [place], [place], [place]) Address [address] [place] [address] Care Team Providers Care Timber Setter Name Role Phone Unavailable Primary Care Provider Unavailabl e Encounter Details Date Type Department Care Team (Late st Contact Info) Description 11/07/2019 Transcribed Document [facility] [place] [address] [place] [address] ProviderPrasanth MD [address] [place] [address] Social History Tobacco Use Types Packs/Day Years Used Date Smoking Tobacco: Never Assessed Sex and Gender Information Value Date Recorded Sex Assigned at Not on file Legal Sex Male 6:49 PM CDT Gender Identity Not on file Sexual Orientation Not on file documented as of this encounter Miscellaneous Notes * [employer]ner Conversion Note - Historical ProviderMD - 11/07/2019 2:00 AM HEALTH PHYSICIST Certified Pathology Assistant Details Entered On: 11/07/2019 0:40 EST Performed [...]
--- OUTSIDE RECORDS SUMMARY | 2025-08-15 12:01 | XMS_ITS | Encounter Summary ---
Author Organization [employer] ([place], [place], [place], [place], [place]) Address [address] [place] [address] Care Team Providers Care Histologist Technologist Name Role Phone Unavailable Primary Care Provider Unavailabl e Encounter Details Date Type Department Care Team (Late st Contact Info) Description 11/07/2019 Transcribed Document [facility] [place] [address] [place] [address] ProviderPrasanth MD [address] [place] [address] Social History Tobacco Use Types Packs/Day Years Used Date Smoking Tobacco: Never Assessed Sex and Gender Information Value Date Recorded Sex Assigned at Not on file Legal Sex Male 6:49 PM CDT Gender Identity Not on file Sexual Orientation Not on file documented as of this encounter Miscellaneous Notes * [employer] Conversion Note - Historical ProviderMD - 11/07/2019 5:00 PM AUDIO VISUAL ARTS DIRECTOR Chart Check - Review Order Profile Entered On: 11/07/2019 17:33 EST Performed On: 11/07/2019 17:00 EST by MARIBELL MIMS, RN Chart Check Power[employer]ans Initiated/Discontinued as Appropriate : Yes MARIBELL MIMS RN - 11/07/2019 17:33 EST Electronically signed by Nikita [facility] Conversion Curtain Framer Cerner at 01/26/2023 8:59 PM CDT documented in this encounter Plan of Treatment Not on file documented as of this encounter Visit Diagnoses Not on filedocumented in this encounter
--- OUTSIDE RECORDS SUMMARY | 2025-08-15 12:01 | XMS_ITS | Encounter Summary ---
Author Organization [employer] ([place], [place], [place], [place], [place]) Address [address] [place] [address] Care Team Providers Care Construction Millwright Name Role Phone Unavailable Primary Care Provider Unavailabl e Encounter Details Date Type Department Care Team (Late st Contact Info) Description 12/30/2020 Transcribed Document [facility] [place] Family Medicine [address] [place] [address] ProviderPrasanth MD [address] [place] [address] Social History Tobacco Use Types [...] Sanchez MD - 12/30/2020 11:43 AM CDT [facility] [place] [address] SHIRA GARZA HORACIO :1935 Visit Time:12/30/2020 Your Visit Summary [...] 10:15 AM EDT Where: [address] [place] [address]- Medications What How Much When Instructions Next [...] diabetes medicines or blood thinners. ? Taking ghzj-emu-qmkojba medicines, vitamins, herbs, and supplements. ? Taking [...] provider. Document Revised: 06/15/2019 Document Reviewed: 12/28/2017 [employer] Patient Education ?? 2020 [employer] Moderate Conscious Sedation, Adult, Care After [...] you are awake and alert. ??? Take wjch-sek-lpfmbwg and prescription medicines only as told by [...] provider. Document Revised: 09/08/2018 Document Reviewed: 01/15/2017 [employer] Patient Education ?? 2020 [employer] FAQ ??? Patient COVID-19 testing Why [...] all positive cases are reported through the [facility] health department and the [place] Department for Public Health. Those organizations are [...] and need to call 911, notify the collating machine operator that you have, or think [...] clean your hands with an alcohol-based hand reimbursement spec that contains at least 60% alcohol. Clean your hands often. ??? Wash hands: Wash your hands often with soap and water for at least 20 seconds when visibly dirty. This is especially important after blowing your nose, coughing or sneezing, and going to the bathroom, and before eating or preparing food. ??? Hand reimbursement spec: Use an alcohol-based hand reimbursement spec with at least 60% alcohol, covering all [...] and water or put them in the hematologist. Clean all high-touch surfaces every day. Clean [...] or body fluids on them. ??? Household pattern grader cutter and disinfectants: Clean the area or item [...] list of disinfectants can be found here: https://www.epa.gov/pesticide-registration/ibyu-q-qnedqwoftqmlx-clf-scmotmb-ul rs-cov-2 Emergency Awareness and Preventative Care STROKE [...] Assistance with quitting is available by contacting 2-900-DGRW-NOW. This is a free resource providing counseling, [...] was given the opportunity to ask questions. Patient/Tour Production Supervisor Name: Patient/Tour Production Supervisor Signature: Relationship to Patient: Clinician/Hospital Tour Production Supervisor Signature: Date: documented in this encounter Plan of Treatment Not on file documented as of this encounter Visit Diagnoses Not on filedocumented in this encounter
--- OUTSIDE RECORDS SUMMARY | 2025-08-15 12:01 | XMS_ITS | Encounter Summary ---
Author Organization [employer] ([place], [place], [place], [place], [place]) Address [address] [place] [address] Care Team Providers Care Record Tester Name Role Phone Unavailable Primary Care Provider Unavailabl e Encounter Details Date Type Department Care Team (Late st Contact Info) Description 11/07/2019 Transcribed Document [facility] [place] [address] [place] [address] ProviderPrasanth MD [address] [place] [address] Social History Tobacco Use Types Packs/Day Years Used Date Smoking Tobacco: Never Assessed Sex and Gender Information Value Date Recorded Sex Assigned at Not on file Legal Sex Male 6:49 PM CDT Gender Identity Not on file Sexual Orientation Not on file documented as of this encounter Miscellaneous Notes * Cerner Conversion Note - Prasanth Sanchez MD - 11/07/2019 10:09 AM ENGINEERING OFFICER Patient: SHIRA GARZA HORACIO Age: 84 years Sex: Male : 1935 Associated Diagnoses: None Author: CELESTINA RUIZ APRN [facility] CARDIOLOGY PROGRESS NOTE: DIAGNOSIS: 1. 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 09/2019 revealed patent grafts continue [...]
--- OUTSIDE RECORDS SUMMARY | 2025-08-15 12:01 | XMS_ITS | Encounter Summary ---
Author Organization [employer] ([place], [place], [place], [place], [place]) Address [address] [place] [address] Care Team Providers Care Morphologist Name Role Phone Unavailable Primary Care Provider Unavailabl e Encounter Details Date Type Department Care Team (Late st Contact Info) Description 12/30/2020 Transcribed Document [facility] [place] Family Medicine [facility] [address] ProviderPrasanth MD [address], [place] [...] Source : Stated Height Entry Format : Oliver Height, Feet : 5 ft(Converted to: 152 cm, 60 Inch) Height, Inches : 9 Inch(Converted to: 0 ft 9 Inch, 22.86 cm) Clinical Height : 175.26 cm Weight Source : Standing scale Weight Entry Format : Oliver Clinical Dosing Weight : 88.64 kg Weight, Pounds : 195 lb Body Surface Area (BSA) : 2.05 m2 Body Mass Index : 28.9 kg/m2 (HI) [place] Body Weight : 70 kg Mini Abreu [...] (Last Updated: 08/04/2020 12:08:47 EDT by WALTER POWELL RN) Alcohol: Alcohol Use History No. Alcohol [...] Mini Abreu RN - 12/30/2020 8:05 EDT [place] Suicide Severity Rating Scale (C-SSRS) CSSRS Past [...] Spouse Legal Guardian : No Support Person/Patient Wrapper Sheeter : Yes Support Person/Pt Rep Name : Rosa Elena Bustamante- spouse Support Person/Pt Rep Contact Information : [phone] home Want Family/Rep/Phys Notified of Admit : No Emergency Contact #1 : NA Emergency Contact #1 Phone Number : NA Emergency Contact #1 Relationship : NA Emergency Contact #2 : NA Emergency Contact #2 Phone Number : NA Emergency Contact #2 Relationship : NA Information Obtained From : Patient Primary Language : Sao Tomean Preferred Communication Mode : Verbal Communication Barrier : None Provider Scribe Needed : No Mini Abreu RN - [...] Sleep Apnea Risk Level Score : 5 iMni Abreu RN - 12/30/2020 8:05 EDT Vishnu [...] Scale Risk Level : 0-24 Low Risk [place] Fall Interventions : Adequate lighting, Bed in [...]
--- OUTSIDE RECORDS SUMMARY | 2025-08-15 12:01 | XMS_ITS | Encounter Summary ---
Author Organization [employer] ([place], [place], [place], [place], [place]) Address [address] [place] [address] Care Team Providers Care Assembled Wood Products Repairer Name Role Phone Unavailable Primary Care Provider Unavailabl e Encounter Details Date Type Department Care Team (Late st Contact Info) Description 06/04/2021 Transcribed Document [facility] [place] [address] [place] [address] ProviderPrasanth MD [address] [place] [address] Social History Tobacco Use [...] Sanchez MD - 06/04/2021 11:25 AM CDT [facility] [place] [address] ALEXANDRESHIRA Enamorado HORACIO :1935 Visit Time:06/02/2021 Your Visit Summary [...] discharge instructions with you Where: [address] [place] [address]- Follow Up with ABEBA HOOKS When 06/08/2021 03:15 PM EDT Comments Appointment has been made Where: [address] [facility] [address] [place] [address]- Business (1) Medications What How Much When Instructions Next Dose apixaban (Eliquis 5 mg oral tablet) 1 Tablet(s) Oral Interval Every 12 Hours Pickup at [facility] [place] this evening aspirin (aspirin 81 mg oral tablet, chewable) 1 Tablet(s) Oral Every Day Pickup at [facility] tomorrow atorvastatin (Lipitor 20 mg oral tablet) 1 Tablet(s) Oral At Bedtime Duration: 30 Day(s) Please Note: Your Lipitor dose has changed to 20 mg oral at bedtime Pickup at [facility] [place] at bedtime metoprolol (Metoprolol Succinate ER 25 mg oral tablet, extended release) 1 Tablet(s) Oral Every Day tomorrow hydrochlorothiazide-lisinopril (hydroCHLOROthiazide-lisinopril 12.5 mg-20 mg oral tablet) 1 Tablet(s) Oral Every Day tomorrow multivitamin 1 Tablet(s) Oral Every Day tomorrow Pharmacy Information [facility] [place]: [address] [facility] [address] [facility] [address] [place], [place] [id number] [phone] Take your medications faithfully. Do NOT skip [...] blood clot. Taking other medicines ??? Take uiic-vib-hpbxubu and prescriptions medicines only as told by your health care provider. ??? Do not take wbaa-trw-mbfmzfn NSAIDs, including aspirin and ibuprofen, while you [...] use toothpicks. ??? Use a soft-bristled toothbrush. [place] your teeth gently. ??? Always wear shoes [...] you: ??? Work with a diet and health and nutrition specialist (dietitian) to make an eating [...] provider. Document Revised: 01/16/2020 Document Reviewed: 12/13/2017 [employer] Patient Education ?? 2020 Ischemia Care. Transient Ischemic Attack A transient ischemic attack [...] these instructions at home: Medicines ??? Take enev-ugo-lnuwuvq and prescription medicines only as told by [...] provider. Document Revised: 06/22/2019 Document Reviewed: 12/28/2017 [employer] Patient Education ?? 2020 Ischemia Care. Heart Attack A heart attack occurs when blood and oxygen supply to the heart is cut off. A heart attack causes damage to the heart that cannot be fixed. A heart attack is also called a myocardial infarction, or WV. If you think you are having a [...] these instructions at home: Medicines ??? Take jfox-lvt-wnempgr and prescription medicines only as told by [...] provider. Document Revised: 01/07/2020 Document Reviewed: 01/07/2020 [employer] Patient Education ?? 2020 [employer] Coronary Artery Disease, Male Coronary artery disease (CAD) is a condition in which the arteries that lead to the heart (coronary arteries) become narrow or blocked. The narrowing or blockage can lead to decreased blood flow to the heart. Prolonged reduced blood flow can cause a heart attack (myocardial infarction or WV). This condition may also be called coronary [...] these instructions at home: Medicines ??? Take bcbe-wzq-lapotfj and prescription medicines only as told by [...] provider. Document Revised: 06/15/2019 Document Reviewed: 06/05/2019 [employer] Patient Education ?? 2020 Ischemia Care. Venous Thromboembolism Prevention Venous thromboembolism (VTE) is [...] for Disease Control and Prevention: www.cdc.gov ??? [place] Heart Association: www.heart.org Get help right away [...] provider. Document Revised: 01/15/2020 Document Reviewed: 12/04/2019 [employer] Patient Education ?? 2020 Ischemia Care. aspirin (oral) ( pir in) Arthritis Pain, Aspi-Cor, Aspir-Low, [place] Plus, Durlaza, Ecotrin, Miniprin, [place] What is the most important information I should know about aspirin? Aspirin can cause Ladan's syndrome, a serious and sometimes fatal condition in children. What is aspirin? Aspirin is a salicylate (ny-YAR-pp-ate) that is used to treat pain, and [...] may report side effects to FDA at 9-924-GHX-4239. What other drugs will affect aspirin? Ask [...] drugs may affect aspirin, including prescription and gzev-ezr-sfnbkpp medicines, vitamins, and herbal products. Not all [...] to ensure that the information provided by [employer]. ('[employer]') is accurate, up-to-date, and complete, but no guarantee is made to that effect. Drug information contained herein may be time sensitive. [employer] information has been compiled for use by healthcare practitioners and consumers in the [place] and therefore [employer] does not warrant that uses outside of the [place] are appropriate, unless specifically indicated otherwise. [employer] drug information does not endorse drugs, diagnose patients or recommend therapy. [employer] drug information is an informational resource designed [...] effective or appropriate for any given patient. [employer] does not assume any responsibility for any aspect of healthcare administered with the aid of information [facility] provides. The information contained herein is not intended to cover all possible uses, directions, precautions, warnings, drug interactions, allergic reactions, or adverse effects. If you have questions about the drugs you are taking, check with your doctor, nurse or pharmacist. Copyright 2544-7910 [employer]. Version: 16.03. Revision Date: 04/06/2021. atorvastatin (a [...] may report side effects to FDA at 3-763-LHA-8110. What other drugs will affect atorvastatin? Certain [...] may affect atorvastatin. This includes prescription and xusz-flb-fstuphc medicines, vitamins, and herbal products. Not all [...] to ensure that the information provided by [employer] ('[employer]') is accurate, up-to-date, and complete, but no guarantee is made to that effect. Drug information contained herein may be time sensitive. [employer] information has been compiled for use by healthcare practitioners and consumers in the [place] and therefore [employer] does not warrant that uses outside of the [place] are appropriate, unless specifically indicated otherwise. [employer]'s drug information does not endorse drugs, diagnose patients or recommend therapy. [employer] drug information is an informational resource designed [...] effective or appropriate for any given patient. [facility] does not assume any responsibility for any aspect of healthcare administered with the aid of information [facility] provides. The information contained herein is not intended to cover all possible uses, directions, precautions, warnings, drug interactions, allergic reactions, or adverse effects. If you have questions about the drugs you are taking, check with your doctor, nurse or pharmacist. Copyright 3051-3742 [facility]. Version: .. Revision Date: 11/18/2020. apixaban (a PIX a ban) [place] What is the most important information I should know about apixaban? Apixaban increases your risk of severe or fatal bleeding, especially if you take certain medicines at the same time (including some mzpt-uci-nipviaa medicines). It is very important to tell [...]
--- OUTSIDE RECORDS SUMMARY | 2025-08-15 12:01 | XMS_ITS | Encounter Summary ---
Author Organization [employer] ([place], [place], [place], [place], [place]) Address [address] [place] [address] Care Team Providers Care Sexologist Name Role Phone Unavailable Primary Care Provider Unavailabl e Encounter Details Date Type Department Care Team (Late st Contact Info) Description 06/04/[address] [facility] [place] Family Medicine [address] [place] [address] ProviderPrasanth MD [address] [place] [address] Social History Tobacco Use Types Packs/Day Years Used Date Smoking Tobacco: Never Assessed Sex and Gender Information Value Date Recorded Sex Assigned at Not on file Legal Sex Male 6:49 PM CDT Gender Identity Not on file Sexual Orientation Not on file documented as of this encounter Miscellaneous Notes * Cerner Conversion Note - Prasanth Sanchez MD - 06/04/2021 11:19 AM CDT Stroke/Warfarin Instructions [...] my meds unless instructed by Eri James, WILL - 06/04/2021 11:19 EDT Electronically signed by Carla Shelton Conversion Middleware Solutions Architect Cerner at 01/26/2023 9:12 PM CDT documented in this encounter Plan of Treatment Not on file documented as of this encounter Visit Diagnoses Not on filedocumented in this encounter
--- OUTSIDE RECORDS SUMMARY | 2025-08-15 12:02 | XMS_ITS | Encounter Summary ---
Author Organization [employer] ([place], [place], [place], [place], [place]) Address [address] [place] [address] Care Team Providers Care Medical Specialist Name Role Phone Unavailable Primary Care Provider Unavailabl e Encounter Details Date Type Department Care Team (Late st Contact Info) Description 06/02/2021 Transcribed Document [facility] [place] [facility] [place] [address] ProviderPrasanth MD [address] [place] [address] Social History Tobacco Use Types [...] ADRIÁN LUO, SIGIFREDO General Information Visit Type, CONVEYOR LINE BATTERY CHARGER : Initial evaluation Patient Orders : Speech Language Pathology Swallow Evaluation and Treatment -111 Start: 06/02/21 15:13:00 EDT, Routine, For Swallow Eval and Treat - CJ AVITIA MD-INT Speech Language Pathology Evaluation and Treatment - Start: 06/02/21 12:40:00 EDT, Routine, For Speech Language Cognitive Eval and Treat -111 CJ AVITIA MD-INT Admission Date : Admission Date/Time: 06/02/21 12:02:00 Medical Chart Reviewed, CONVEYOR LINE BATTERY CHARGER : Yes Personal Devices : Personal Devices No Devices Recorded Assistive Devices : Assistive Devices No Devices Recorded Active Diagnoses : 06/02/2021 12:00 Chest pain 06/02/2021 12:00 Chest pain, unspecified 06/02/2021 12:00 Non-ST elevation (NSTEMI) myocardial infarction 06/02/2021 12:00 Other specified abnormalities of plasma proteins 06/02/2021 12:00 Transient cerebral ischemic attack, unspecified 06/02/2021 12:00 Weakness Therapy Diagnosis, CONVEYOR LINE BATTERY CHARGER : Pt presents without overt oropharyngeal patterns. Recommendations: 1. Regular/thin 2. Medication per RN 3. NO further evaluation/tx for oropharyngeal dysphagia 4. CONVEYOR LINE BATTERY CHARGER will f/u with a definitive neuro dx warranting further communication evaluation Previous Speech/Language Evaluations : No previous ST in EMR Previous Swallow Precautions : No previous ST in EMR Diet/Intake Prior to Current Admission : Regular/thin Diet/Intake During Current Admission : NPO Intubation Comment, CONVEYOR LINE BATTERY CHARGER : n/a Vital Signs RTF : Vitals [...] 15:14 EDT General Status Patient Received Status, CONVEYOR LINE BATTERY CHARGER : Sitting edge of bed Patient Left Status, CONVEYOR LINE BATTERY CHARGER : Sitting edge of bed ADRIÁN LUO [...] Oral Mechanism for Daily Living : Intact CONVEYOR LINE BATTERY CHARGER Cough : Strong Facial Appearance: : Symmetrical [...] Oral Intake Scale (FOIS) : Level VII ADRÁIN LUO SLP - 06/02/2021 15:14 EDT Bedside Swallow Overall Impressions : Pt admitted w/ c/o chest pain, brief expressive aphasia, and bilateral lower leg weakness. Per chart review, all symptoms have resolved. Neurology consult is currently pending. PMHx is signficant for Afib, A flutter, CAD, Aortic valve replacement, CABG, HOONAH, HLD, HTN and subdural hematoma. CONVEYOR LINE BATTERY CHARGER consulted for bedside dysphagia evaluation. Today, pt is alert and oriented x4. No overt communication deficits appreciated. Oral skills appear functional for swallowing. No overt pharyngeal patterns appreciated with any trialed consistency. Pt appears safe for a regular diet and thin liquids. Medication per RN. No further evaluation/tx for oropharyngeal dysphagia is indicated at this time. CONVEYOR LINE BATTERY CHARGER will f/u with a definitive neuro dx [...] - 06/02/2021 15:14 EDT Therapy Indication Assessment CONVEYOR LINE BATTERY CHARGER Indicated : No CONVEYOR LINE BATTERY CHARGER Not Indicated : At prior level of function CONVEYOR LINE BATTERY CHARGER Interdisciplinary Consultation Needs : No CONVEYOR LINE BATTERY CHARGER Rehabilitation Potential : At prior level of function ADRIÁN LUO SLP - 06/02/2021 15:14 EDT Education Barriers To Learning : None evident Individuals Taught : Patient Readiness to Learn : Cooperative Readiness to Learn : Explanation ADRIÁN LUO SLP - 06/02/2021 15:14 EDT CONVEYOR LINE BATTERY CHARGER Education Assessment Grid 1 Diet Recommendation : Verbalizes understanding Evaluation Results : Verbalizes understanding ADRIÁN LUO SLP - 06/02/2021 15:[address] [facility] Charges Evaluation Swallowing Function : 1 ADRIÁN LUO SLP - 06/02/2021 15:14 EDT Anticipated Discharge Needs, CONVEYOR LINE BATTERY CHARGER Anticipated Discharge to : Home, independently Recommend Continued Therapy at Discharge : No ADRIÁN LUO SLP - 06/02/2021 15:14 EDT Electronically signed by Nikita [facility] Conversion Case Liner Cerner at 01/26/2023 8:54 PM CDT documented in this encounter Plan of Treatment Not on file documented as of this encounter Visit Diagnoses Not on filedocumented in this encounter
--- OUTSIDE RECORDS SUMMARY | 2025-08-15 12:02 | XMS_ITS | Encounter Summary ---
Author Organization [employer] ([place], [place], [place], [place], [place]) Address [address] [place] [address] Care Team Providers Care Nursing Program Chair Name Role Phone Unavailable Primary Care Provider Unavailabl e Encounter Details Date Type Department Care Team (Late st Contact Info) Description 11/08/2019 Transcribed Document [facility] Radiology [address] [place] [address] Abel Kapadia MD [address] [place] [address] [place] [id number] Social History Tobacco Use Types Packs/Day Years [...] PHYSICIAN: Dr. Marcelino Caldera, [facility]. REFERRING PHYSICIAN: Dr. Beckman, [facility] , 1935. CURRENT COMPLAINT: Falls, dizziness, [...] At risk for sleep apnea / IMO [id number] / Confirmed Shortness of breath / SNOMED CT 519936833 / Confirmed Hypertension / SNOMED CT 10116672 / Confirmed Wears glasses / SNOMED CT 042392913 / Confirmed, Active Problems (11) Aortic stenosis [...] gallop, S1+ S2 No S3 or S4 [place].. Gastrointestinal: Soft, Non-tender, Non-distended, Normal bowel sounds. [...] (NOV 04) Radiology Results (Last 48 hours) [id number] -- 11/04/2019 21:19 CR Chest 1 Vw [...]
--- OUTSIDE RECORDS SUMMARY | 2025-08-15 12:02 | XMS_ITS | Encounter Summary ---
Author Organization [employer] ([place], [place], [place], [place], [place]) Address [address] [place] [address] Care Team Providers Care Websphere Administrator Name Role Phone Unavailable Primary Care Provider Unavailabl e Encounter Details Date Type Department Care Team (Late st Contact Info) Description 11/08/2019 Transcribed Document [facility] Family Medicine [address] [place] [address] ProviderPrasanth MD [address] [place] [address] Social History Tobacco Use Types Packs/Day Years Used Date Smoking Tobacco: Never Assessed Sex and Gender Information Value Date Recorded Sex Assigned at Not on file Legal Sex Male 6:49 PM CDT Gender Identity Not on file Sexual Orientation Not on file documented as of this encounter Miscellaneous Notes * Cerner Conversion Note - Prasanth Sanchez MD - 11/08/2019 11:42 AM PHOTOGRAPHIC LABORATORY TECHNICIAN [place] [address] ALEXANDRESHIRA Enamorado HORACIO :1935 Visit Time:11/04/2019 Your Visit Summary [...] Appointment has been made . Where: [address] [facility] [address] [place] [phone]- Business (1) Follow Up with IRENE MAJANO When 11/15/2019 10:[address] [place]. Appointment has been made Where: [address] [place] [address]- Business (1) Follow Up with LACIE ALVA When Within 3 months Comments Call for follow up appointment near the end of December. Where: [address] [place] [address] SECTION OF CARDIOLOGY [place] [phone]- Business (1) Follow Up with KARON CALDERA When Within 1 to 2 weeks Where: [address] [place] [address] OF INTERNAL MEDIC [place] [phone] Business (1) Follow Up with Patient Resource [...] these instructions at home: Medicines ??? Take rnwe-etb-yxepqau and prescription medicines only as told by [...] and water are not available, use hand workers compensation attorney. ? Change your dressing as told by [...] towers. ??? Do not use amateur ( Constant Insight ) radio equipment or electric ( arc [...] 06/20/2013 Document Revised: 12/14/2017 Document Reviewed: 06/20/2016 Three Rings Interactive Patient Education ?? 2019 [employer] Rings Inc. Head Injury, Adult There are many [...] or school. Ask your doctor for a zpog-pd-wtfc plan for slowly going back to your [...] your friends, family, a trusted coworker, and tar worker about your injury, symptoms, and limits (restrictions). Have them watch for any problems that are new or getting worse. General instructions ??? Take mifx-zcr-jssxxwh and prescription medicines only as told by [...] 04/05/2017 Elsevier Interactive Patient Education ?? 2019 [employer]. Subdural Hematoma A subdural hematoma is [...] you to do the same. ??? Take hhye-mlx-opmovfo and prescription medicines only as told by [...] Where to find more information: ??? National [place] of Neurological Disorders and Stroke: www.ninds.nih.gov ??? [place] Association of Neurological Surgeons: http://www.aans.org ??? [place] Academy of Neurology (AAN): www.aan.com ??? Brain [...] 08/31/2017 Elsevier Interactive Patient Education ?? 2018 [employer]W [employer] Inc. Emergency Awareness and Preventative Care STROKE [...] Assistance with quitting is available by contacting 7-851-DKMANOW. This is a free resource providing counseling, support, and referral. Or you may contact your personal physician. [place] Suicide Prevention Lifeline: The National Suicide Prevention [...] range between ( 0.0 and 7.0 ) [place] #: 0.61 K/uL -- Normal range between ( 0.16 and 1.00 ) Eos #: 0.09 x10(3)/uL -- Normal range between ( 0.00 and 0.80 ) [place] %: 9.6 % -- Normal range between [...] Complete: EC Echo Complete Patient Name:SHIRA GARZA HROACIO I have received and understand this information and was given the opportunity to ask questions. Patient/Data Examination Clerk Name: Patient/Data Examination Clerk Signature: Relationship to Patient: Clinician/Hospital Data Examination Clerk Signature: Date: Electronically signed by Interface, [facility] Conversion Spring Layer Richard at 01/26/2023 8:54 PM CDT documented in this encounter Plan of Treatment Not on file documented as of this encounter Visit Diagnoses Not on filedocumented in this encounter
--- OUTSIDE RECORDS SUMMARY | 2025-08-15 12:02 | XMS_ITS | Encounter Summary ---
Author Organization [employer] ([place], [place], [place], [place], [place]) Address [address] [place] [address] Care Team Providers Care Hr Coordinator Name Role Phone Unavailable Primary Care Provider Unavailabl e Encounter Details Date Type Department Care Team (Late st Contact Info) Description 12/03/2019 Transcribed Document [facility] [place] Family Medicine [address] [place] [address] ProviderPrasanth MD [address] [place] [address] Social History Tobacco Use Types Packs/Day Years Used Date Smoking Tobacco: Never Assessed Sex and Gender Information Value Date Recorded Sex Assigned at Not on file Legal Sex Male 6:49 PM CDT Gender Identity Not on file Sexual Orientation Not on file documented as of this encounter Miscellaneous Notes * Cerner Conversion Note - Historical ProviderMD - 12/03/2019 11:15 AM MAIL WEIGHER Event Note Entered On: 12/03/2019 11:17 EST Performed On: 12/03/2019 11:15 EST by AUSTIN FOFANA, RN Event Note Event Date/Time : 12/03/2019 11:05 EST Description of Event : pt received back to unit from procedure lab, s/p anne ADLER within reach, family at bedside , VSS AUSTIN FOFANA, RN - 12/03/2019 11:15 EST Electronically signed by Nikita [facility] Conversion Prepared Foods Production Team Member Cerner at 01/26/2023 9:08 PM CDT documented in this encounter Plan of Treatment Not on file documented as of this encounter Visit Diagnoses Not on filedocumented in this encounter
--- OUTSIDE RECORDS SUMMARY | 2025-08-15 12:02 | XMS_ITS | Encounter Summary ---
Author Organization [employer] ([place], [place], [place], [place], [place]) Address [address] [place] [address] Care Team Providers Care Plant Custodian Name Role Phone Unavailable Primary Care Provider Unavailabl e Encounter Details Date Type Department Care Team (Late st Contact Info) Description 06/02/2021 Transcribed Document [facility] Family Medicine [address] [place] [address] ProviderPrasanth MD [address] [place] [address] Social History Tobacco Use Types [...]
--- OUTSIDE RECORDS SUMMARY | 2025-08-15 12:02 | XMS_ITS | Encounter Summary ---
Author Organization [employer] ([place], [place], [place], [place], [place]) Address [address] [place] [address] Care Team Providers Care Landcare Facilitator Name Role Phone Unavailable Primary Care Provider Unavailabl e Encounter Details Date Type Department Care Team (Late st Contact Info) Description 06/02/2021 Transcribed Document [facility] Family Medicine [facility] [place] [address] ProviderPrasanth MD [address] [place] [address] Social History Tobacco Use Types [...] CARRANZA RN [facility] pulse generator model [id number], serial #[id number] CABG x5 on 05/29/2008 at 72 Years. [...] EDT Height Source Stated Height Entry Format [place] Height/Length, BRAZILIAN (ft) 5 ft Height/Length BRAZILIAN 9 Inch CLINICALHEIGHT 175.26 cm [place] Body Weight 69.73 kg Weight Source, ED Standing scale Weight Entry Format [place] Weight Kazakh lb 198.4 lb CLINICALWEIGHT 90.18 kg Body [...] infection, cerebral vascular accident, transient ischemic attack, CT.. Documents reviewed: Emergency department nurses' notes. Orders [...] Color Yellow Urine Appearance Clear Urine Specific [place] 1.020 Urine pH Dipstick *5.0 Urine Leukocyte [...] % 26.0 % Lymph # 1.59 K/uL Wirt % 10.6 % Wirt # 0.65 K/uL Eos % 0.5 % Eos # 0.03 Baso % 0.2 % Baso # 0.01 Slide Review No . Chest X-Ray: No infiltrate; no pneumothorax; normal mediastinum; no bony abnormality. Sternotomy wires and pacemaker. Per EDMD. . Radiology results: Radiology Results (Last 48 hours) [id number] -- 06/02/2021 09:50 CT Head WO (06/02/2021 [...] Calls-Consults - 06/02/2021 11:34:00 , [facility] - [...] plan.. Notes: I certify that the physician assistant merchandiser performed the services as delegated. This note has been prepared with the use of voice recognition software and may contain sound alike errors and omissions.. documented in this encounter Plan of Treatment Not on file documented as of this encounter Visit Diagnoses Not on filedocumented in this encounter
--- OUTSIDE RECORDS SUMMARY | 2025-08-15 12:02 | XMS_ITS | Encounter Summary ---
Author Organization [employer] ([place], [place], [place], [place], [place]) Address [address] [place] [address] Care Team Providers Care Wire Inspector Name Role Phone Unavailable Primary Care Provider Unavailabl e Encounter Details Date Type Department Care Team (Late st Contact Info) Description 12/03/2019 Transcribed Document [facility] [place] [address] [place] [address] ProviderPrasanth MD [address] [place] [address] Social History Tobacco Use Types Packs/Day Years Used Date Smoking Tobacco: Never Assessed Sex and Gender Information Value Date Recorded Sex Assigned at Not on file Legal Sex Male 6:49 PM CDT Gender Identity Not on file Sexual Orientation Not on file documented as of this encounter Miscellaneous Notes * Cerner Conversion Note - Prasanth Sanchez MD - 12/03/2019 11:25 AM GEOGRAPHICAL HISTORIAN [facility] [place] [address] ALEXANDREFei SHIRA HORACIO :1935 Visit Time:12/03/2019 Your Visit [...] with Dr Hughes today(12/03) afternoon at [facility] Where: [address] [place] [address]- Business (1) Medications What How Much When [...] including vitamins, herbs, eye drops, creams, and bnft-qlf-mcjvcpn medicines. ??? Any problems you or family [...] diabetes medicines or blood thinners. ? Taking iswi-kok-jkinofu medicines, vitamins, herbs, and supplements. ? Taking [...] 12/17/2003 Document Revised: 12/23/2017 Document Reviewed: 12/23/2017 Peeractive Interactive Patient Education ?? 2019 Peeractive Inc. Moderate Conscious Sedation, Adult, Care After [...] you are awake and alert. ??? Take rekw-nlh-nieirml and prescription medicines only as told by [...] 07/17/2014 Document Revised: 02/28/2017 Document Reviewed: 01/15/2017 Peeractive Interactive Patient Education ?? 2019 Peeractive Inc. Emergency Awareness and Preventative Care STROKE [...] Assistance with quitting is available by contacting 3-309-MWNP-NOW. This is a free resource providing counseling, [...] was given the opportunity to ask questions. Patient/Medical Field Representative Name: Patient/Medical Field Representative Signature: Relationship to Patient: Clinician/Hospital Medical Field Representative Signature: Date: Electronically signed by Nikita, Filiberto Conversion Staff Occupational Therapist Richard at 01/26/2023 8:49 PM CDT documented in this encounter Plan of Treatment Not on file documented as of this encounter Visit Diagnoses Not on filedocumented in this encounter
--- OUTSIDE RECORDS SUMMARY | 2025-08-15 12:02 | XMS_ITS | Encounter Summary ---
Author Organization [employer] ([place], [place], [place], [place], [place]) Address [address] [place] [address] Care Team Providers Care Refueling Ramp Attendant Name Role Phone Unavailable Primary Care Provider Unavailabl e Encounter Details Date Type Department Care Team (Late st Contact Info) Description 06/02/2021 Transcribed Document [facility] [place] [address] [place] [address] ProviderPrasanth MD [address] [place] [address] Social History Tobacco Use [...] On: 06/02/2021 12:40 EDT by Chang Medrano, General Car Yard Supervisor-Student Nurse Teaching/Learning Assessment Individuals Taught : Patient Readiness to Learn : Cooperative Readiness to Learn : Explanation, Teach back method Learning Style Preferences Patient : Verbal explanation Chang Medrano, General Car Yard Supervisor-Student Nurse - 06/02/2021 15:50 EDT Barriers To Learning : None evident Chang Medrano General Car Yard Supervisor-Student Nurse - 06/02/2021 15:49 EDT documented in this encounter Plan of Treatment Not on file documented as of this encounter Visit Diagnoses Not on filedocumented in this encounter
--- OUTSIDE RECORDS SUMMARY | 2025-08-15 12:02 | XMS_ITS | Encounter Summary ---
Author Organization [employer] ([place], [place], [place], [place], [place]) Address [address] [place] [address] Care Team Providers Care Changer Fixer Name Role Phone Unavailable Primary Care Provider Unavailabl e Encounter Details Date Type Department Care Team (Late st Contact Info) Description 07/22/2020 Transcribed Document [facility] [place] [address] [place] [address] ProviderPrasanth MD [address] [place] [address] Social History Tobacco Use [...] On: 07/22/2020 11:08 EDT by SALLY BARNETT picker tender helper Documentation Discharge Date/Time : 07/22/2020 12:26 EDT [...] 07/22/2020 11:08 EDT Electronically signed by Carla Sheltno Conversion Shared Services And Outsourcing Manager Cerner at 01/26/2023 9:10 PM CDT documented in this encounter Plan of Treatment Not on file documented as of this encounter Visit Diagnoses Not on filedocumented in this encounter
--- OUTSIDE RECORDS SUMMARY | 2025-08-15 12:02 | XMS_ITS | Encounter Summary ---
Author Organization [employer] ([place], [place], [place], [place], [place]) Address [address] [place] [address] Care Team Providers Care Hotel Front Office Manager Name Role Phone Unavailable Primary Care Provider Unavailabl e Encounter Details Date Type Department Care Team (Late st Contact Info) Description 07/22/2020 Transcribed Document [facility] [place] [address] [place] [address] ProviderPrasanth MD [address] [place] [address] Social History Tobacco Use Types [...] Source : Measured Height Entry Format : [place] Height, Feet : 5 ft(Converted to: 152 cm, 60 Inch) Height, Inches : 10 Inch(Converted to: 0 ft 10 Inch, 25.40 cm) Clinical Height : 177.8 cm Weight Source : Standing scale Weight Entry Format : [place] Clinical Dosing Weight : 90.91 kg Weight, Pounds : 200 lb Body Surface Area (BSA) : 2.09 m2 Body Mass Index : 28.8 kg/m2 (HI) [place] Body Weight : 72 kg SALLY BARNETT [...] SALLY BARNETT RN - 07/22/2020 9:18 EDT [place] Suicide Severity Rating Scale (C-SSRS) CSSRS Past [...] Legal Guardian : No Support Person/Patient Director Sales And Marketing : Yes Support Person/Pt Rep Name : Rosa Elena Cormier- spouse Support Person/Pt Rep Contact Information : [phone] home Want Family/Rep/Phys Notified of Admit : No Emergency Contact #1 : Rosa Elena Emergency Contact #1 Emergency Contact #1 Relationship : spouse Emergency Contact #2 : none Emergency Contact #2 Phone Number : none Emergency Contact #2 Relationship : none Primary Language : Slovak Preferred Communication Mode : Verbal Communication Barrier : None Logistics Tech Needed : SALLY Lorenzo RN - 07/22/2020 [...] SALLY BARNETT RN - 07/22/2020 9:18 EDT Ivshnu Scale Vishnu Sensory Perception : No impairment [...] Scale Risk Level : 25-45 Medium Risk [place] Fall Interventions : Adequate lighting, Assistive devices [...]
--- OUTSIDE RECORDS SUMMARY | 2025-08-15 12:02 | XMS_ITS | Encounter Summary ---
Author Organization [employer] ([place], [place], [place], [place], [place]) Address [address] [place] [address] Care Team Providers Care Clay Plant Treater Name Role Phone Unavailable Primary Care Provider Unavailabl e Encounter Details Date Type Department Care Team (Late st Contact Info) Description 06/02/2021 Transcribed Document [facility] Family Medicine [facility] [place] [address] ProviderPrasanth MD [address] [place] [address] Social History Tobacco Use Types [...] On: 06/02/2021 12:27 EDT by Chang Medrano Hose Operator-Student Nurse Advance Directive Patient has Advance Directive *Q : Yes, Advance Directive on file Advance Directive Type : Living will Copy Advance Directive Verified/on Chart : No Chang Medrano Hose Operator-Student Nurse - 06/02/2021 15:42 EDT Anesthesia/Transfusion History Family History of Anesthesia Reaction : No prior transfusion(s) Transfusion History : Prior anesthesia without reaction Family History of Anesthesia Reaction : None Chang Medrano Hose Operator-Student Nurse - 06/02/2021 15:42 EDT Functional Assessment Living Situation : Home Patient Lives With : Spouse SYBIL Hx Falls Immediate/Within 3 Months : No Current Home Treatments : None Chang Medrano Hose Operator-Student Nurse - 06/02/2021 15:42 EDT General Info Mode of Arrival on Unit : Ambulatory Legal Guardian : Spouse Legal Guardian : No Support Person/Patient Live Hanger : Yes Support Person/Pt Rep Name : Rosa Elena Bustamante- spouse Support Person/Pt Rep Contact Information : [phone] home [place] Family/Rep/Phys Notified of Admit : No Emergency Contact #1 : Rosa Elena Bustamante Emergency Contact #1 Phone Number : [phone] Emergency Contact #1 Relationship : Emergency Contact #2 : na Emergency Contact #2 Phone Number : na Emergency Contact #2 Relationship : na Chief Complaint : Pt c/o episode of CP x 2 hours last night, new onset bialteral weakness R>L onset 2200 last night that resolved after 2 hours. Primary Language : Belarusian Preferred Communication Mode : Verbal Communication Barrier : None Building Operator Needed : No Chang Medrano, Hose Operator-Student Nurse - 06/02/2021 15:42 EDT Fall Risk [...] Scale Risk Level : 25-45 Medium Risk [place] Fall Interventions : Adequate lighting, Bed in low position, Hourly comfort/safety rounds, Non-slip footwear, Personal items within reach, Reinforced to call for assistance before getting out of bed, Room free of clutter/spills, Upper side-rails up, Wheels locked, Wires/Cords secured Barriers to Learning : None evident Fall Risk Scale Calc Temp : 0 Chang Medrano, Hose Operator-Student Nurse - 06/02/2021 15:42 EDT Health Histories Smoking Status : Former smoker, quit more than 30 days ago Smokeless Tobacco Status : Never Chang Medrano Hose Operator-Student Nurse - 06/02/2021 15:42 EDT Social History [...] Source : Stated Height Entry Format : [place] Height, Feet : 5 ft(Converted to: 152 cm, 60 Inch) Height, Inches : 9 Inch(Converted to: 0 ft 9 Inch, 22.86 cm) Clinical Height : 175.26 cm Weight Source : Bed scale Weight Entry Format : [place] Clinical Dosing Weight : 89.14 kg Weight, Pounds : 196.1 lb Body Surface Area (BSA) : 2.05 m2 Body Mass Index : 29 kg/m2 (HI) [place] Body Weight : 70 kg Chang Medrano, Hose Operator-Student Nurse - 06/02/2021 15:42 EDT Infectious Disease [...] pox/Shingles, Mumps Tuberculosis Symptoms : None Chang Medrano Hose Operator-Student Nurse - 06/02/2021 15:42 EDT Influenza Vaccine Asmt, Adult Previous Vaccines from Immunization Schedule : Previous Vaccines and Immunizations tetanus/diphtheria/pertussis, acel(Tdap): 0.5 mL (11/04/19 21:11:00) Influenza Immunization, Current Season : Outside of influenza season Chang Medrano Hose Operator-Student Nurse - 06/02/2021 15:42 EDT Pneumococcal Vaccine Previous Vaccines from Immunization Schedule : Previous Vaccines and Immunizations tetanus/diphtheria/pertussis, acel(Tdap): 0.5 mL (11/04/19 21:11:00) Pneumonia Immunization Received : Yes Chang Medrano Hose Operator-Student Nurse - 06/02/2021 15:42 EDT Order Details Order Detail : N/A Patient Needs Meds Crushed/Liquid : No Chang Medrano Hose Operator-Student Nurse - 06/02/2021 15:42 EDT Nutrition History Adaptive Feeding Equipment : Regular Oral Medication Administration : By mouth Eating Poorly Due to Decreased Appetite : No Unplanned Weight Loss in Past 3-6 Months : No Malnutrition Screening Tool Total(mal) : 0 Malnutrition Screening Tool Risk Level : Patient not at risk Chang Medrano Hose Operator-Student Nurse - 06/02/2021 15:42 EDT [place] Suicide Severity Rating Scale (C-SSRS) CSSRS Past Month Wish to be : No CSSRS Past Month Suicidal Thoughts : No CSSRS Lifetime Suicide Behavior : No Suicide Severity Rating Score : 0 Suicide Severity Rating : No Additional Care Required at this time Chang Medrano Hose Operator-Student Nurse - 06/02/2021 15:42 EDT Psychosocial History Chronic/Terminal Illness w/Freq Visits : No Do You Have a History of the Following? : Patient denies history Currently in Unsafe Situation : No Chang Medrano Hose Operator-Student Nurse - 06/02/2021 15:42 EDT Sleep Apnea [...] Risk Level Score : 3 Chang Medrano, Hose Operator-Student Nurse - 06/02/2021 15:42 EDT Valuables and Belongings Valuables and Belongings : Clothing, Personal devices Clothing : Common streetwear Clothing Disposition : Bedside Personal Device Disposition : With patient Personal Devices : Glasses Chang Medrano, Hose Operator-Student Nurse - 06/02/2021 15:42 EDT Electronically signed by Nikita [facility] Conversion Cellular Biologist Cerner at 01/26/2023 8:56 PM CDT documented in this encounter Plan of Treatment Not on file documented as of this encounter Visit Diagnoses Not on filedocumented in this encounter
--- OUTSIDE RECORDS SUMMARY | 2025-08-15 12:02 | XMS_ITS | Encounter Summary ---
Author Organization [employer] ([place], [place], [place], [place], [place]) Address [address] [place] [address] Care Team Providers Care Assistant Passenger Locomotive Engineer Name Role Phone Unavailable Primary Care Provider Unavailabl e Encounter Details Date Type Department Care Team (Late st Contact Info) Description 12/03/2019 Transcribed Document [facility] [place] [facility] [place] [address] ProviderPrasanth MD [address] [place] [address] Social History Tobacco Use Types Packs/Day Years Used Date Smoking Tobacco: Never Assessed Sex and Gender Information Value Date Recorded Sex Assigned at Not on file Legal Sex Male 6:49 PM CDT Gender Identity Not on file Sexual Orientation Not on file documented as of this encounter Miscellaneous Notes * [employer]ner Conversion Note - Prasanth ProviderMD - 12/03/2019 11:24 AM CLINIC MGR Nursing Discharge Summary Entered On: 12/03/2019 11:24 EST Performed On: 12/03/2019 11:24 EST by AUSTIN FOFANA, electrical technician Documentation Discharge Date/Time : 12/03/2019 12:26 [...] 12/03/2019 11:24 EST Electronically signed by Nikita [facility] Conversion Health Information Managers Cerner at 01/26/2023 9:08 PM CDT documented in this encounter Plan of Treatment Not on file documented as of this encounter Visit Diagnoses Not on filedocumented in this encounter
--- OUTSIDE RECORDS SUMMARY | 2025-08-15 12:02 | XMS_ITS | Encounter Summary ---
Author Organization [employer] ([place], [place], [place], [place], [place]) Address [address] [place] [address] Care Team Providers Care Debeader Name Role Phone Unavailable Primary Care Provider Unavailabl e Encounter Details Date Type Department Care Team (Late st Contact Info) Description 06/02/2021 Transcribed Document [facility] [place] Family Medicine [address] [place] [address] ProviderPrasanth MD [address] [place] [address] Social History Tobacco Use Types [...] ProviderMD - 06/02/2021 12:40 PM CDT Amanda Rubni Bedside Swallowing Screen Entered On: 06/02/2021 15:29 EDT Performed On: 06/02/2021 12:40 EDT by Chang Medrano, Skein Spooler-Student Nurse Amanda Rubin Bedside Swallowing 2 Exhibits [...] 60 mL Water : No Chang Medrano, Skein Spooler-Student Nurse - 06/02/2021 15:29 EDT documented in this encounter Plan of Treatment Not on file documented as of this encounter Visit Diagnoses Not on filedocumented in this encounter
--- OUTSIDE RECORDS SUMMARY | 2025-08-15 12:02 | XMS_ITS | Data Portability ---
Author Organization [facility] [place] [facility] Address [address] [facility] [address] [place] [address] Care Team Providers Care Certified Alcohol And Drug Counselor Name Role Phone SHRUTHI TOURE Wood Box Maker ABEBA HOOKS Key Punch Teacher ALEXEI FLORES Primary Care Provider Assessment Encounter [...] s/p TAVR 10/29/2019 (29mm [place] 3 Bioprosthesis, [facility]): Chronic problem, stable. 07/2020: Developed TAVR [...] Check CBC, BMP, TSH and iron panel [email or web address] Not available 11/17/2023 20:07:04 12/19/2023 12/19/2023 f/u annual FSE [email or web address] Not availabl e 12/19/2023 07:08:34 05/23/2024 05/23/2024 Impression: 1. Coronary Artery Disease s/p remote 5v CABG in 2007: Chronic problem, stable Admission 05/2021 with NSTEMI (probable type 1 event the evening prior) with peak Troponin 2.650. No evidence of LV dysfunction or ischemia on SPECT 06/22/2021. 2. 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 07/2020: Developed TAVR [...] Testing at next visit: In-office [facility] clinical operations leader check. [email or web address] Not available 05/23/2024 21:19:51 02/08/2025 02/08/2025 Impression: [...] next visit: Transthoracic echocardiogram to assess AVR. [email or web address] Not available 02/08/2025 12:33:09 Plan of Treatment Reminders Order Date Submit Date Provider Last Modified By Organization Details Last Modified Time Details Appointments CARDIO ULTRASOUN D 2024 10:30A M CARDIO_UL TRASOUND Not available Not available Not available RECHECK 2024 11:30A M ABEBA HOOKS MD Not available Not available Not available Lab None recorded. Referral None recorded. Procedures pacemaker programmi ng, multiple lead (PROC) 2024 025 [facility], [address] [place] [address] , [facility], [place], [address], 02/08/2025 14:10:20 Surgeries None recorded. Imaging None recorded. Medication Orders None recorded. Patient TargetsNo targets recorded. Patient Instructions Encounter Date Encounter Id Patient Instructions Last Modified By Organization Details Last Modified Time 11/17/2023 [id number] Body Mass Index: Care Instructions-LC Not available 11/17/2023 20:07:14 12/19/2023 [id number] If any lesions change, or if any other new or symptomatic lesions occur, patient understands to return to the clinic for further evaluation Discussed sun precautions; SPF 30+ [email or web address] Not available 12/19/2023 07:08:34 05/23/2024 [id number] Body Mass Index: Care Instructions-LC [email or web address] Not available 05/23/2024 21:20:02 02/08/2025 [id number] Body Mass Index: Care Instructions- [email or web address] Not available 02/08/2025 12:33:28 Reason for Referral None Reported. Results Created Date Observation Date Name Description Value Unit Range Abnormal Flag Note LastModifiedBy Organization Detail LastModifiedTime 11/17/19 24 11/17/2023 COMPL ETE BLOOD COUNT white blood cells 7.4 10*3/ uL 3.8-10 .8 normal Not Available [facility] [address] [place] [address], [address], 11/17/2023 15:07:38 11/17/19 24 11/17/2023 COMPL ETE BLOOD COUNT red blood cells 4.65 10*6/ uL 4.20-5 .80 normal Not Available [facility] [address] [place] [address], [address], 11/17/2023 15:07:38 11/17/19 24 11/17/2023 COMPL ETE BLOOD COUNT hemoglobin 14.2 g/dL 14.0-1 8.0 normal Not Available [facility] [address] [place] [address], [address], 11/17/2023 15:07:38 11/17/19 24 11/17/2023 COMPL ETE BLOOD COUNT hematocrit 41.8 % 40.0-5 2.0 normal Not Available [facility] [address] [place] [address], [address], 11/17/2023 15:07:38 11/17/19 24 11/17/2023 COMPL ETE BLOOD COUNT MCV 90 fL 80-100 normal Not Available [facility] [address] [place] [address], [address], 11/17/2023 15:07:38 11/17/19 24 11/17/2023 COMPL ETE BLOOD COUNT MCH 31 pg 26-35 normal Not Available [facility] [address] [place] [address], [address], 11/17/2023 15:07:38 11/17/19 24 11/17/2023 COMPL ETE BLOOD COUNT MCHC 34 g/dL 32-36 normal Not Available [facility] [address] [place] [address], [address], 11/17/2023 15:07:38 11/17/19 24 11/17/2023 COMPL ETE BLOOD COUNT RDW 15.1 % 11.0-1 5.0 high Not Available [facility] [address] [place] [address], [address], 11/17/2023 15:07:38 11/17/19 24 11/17/2023 COMPL ETE BLOOD COUNT MPV 10.7 fL 6.2-10 .5 high Not Available [facility] [address] [place] [address], [address], 11/17/2023 15:07:38 11/17/19 24 11/17/2023 COMPL ETE BLOOD COUNT platelet count 172 10*3/ uL 150-40 0 normal Not Available [facility] [address] [place] [address], [address], 11/17/2023 15:07:38 11/17/19 24 11/17/2023 COMPL ETE BLOOD COUNT neutrophil,a bsolute 4.7 10*3/ uL 1.6-8. 4 normal Not Available [facility] [address] [place] [address], [address], 11/17/2023 15:07:38 11/17/19 24 11/17/2023 COMPL ETE BLOOD COUNT lymphocyte,a bsolute 1.8 10*3/ uL 0.4-5. 1 normal Not Available [facility] [address] [place] [address], [address], 11/17/2023 15:07:38 11/17/19 24 11/17/2023 COMPL ETE BLOOD COUNT monocyte,abs olute 0.8 10*3/ uL 0.0-1. 2 normal Not Available [facility] [address] [place] [address], [address], 11/17/2023 15:07:38 11/17/19 24 11/17/2023 COMPL ETE BLOOD COUNT eosinophil,a bsolute 0.0 10*3/ uL 0.0-0. 8 normal Not Available [facility] [address] [place] [address], [address], 11/17/2023 15:07:38 11/17/19 24 11/17/2023 COMPL ETE BLOOD COUNT basophil,abs olute 0.1 10*3/ uL 0.0-0. 3 normal Not Available [facility] [address] [place] [address], [address], 11/17/2023 15:07:38 11/17/19 24 11/17/2023 COMPL ETE BLOOD COUNT % neutrophils 63.6 % 42.0-7 8.0 normal Not Available [facility] [address] [place] [address], [address], 11/17/2023 15:07:38 11/17/19 24 11/17/2023 COMPL ETE BLOOD COUNT % lymphocytes 24.5 % 11.0-4 7.0 normal Not Available [facility] [address] [place] [address], [address], 11/17/2023 15:07:38 11/17/19 24 11/17/2023 COMPL ETE BLOOD COUNT % monocytes 10.2 % 0.0-11 .0 normal Not Available [facility] [address] [place] [address], [address], 11/17/2023 15:07:38 11/17/19 24 11/17/2023 COMPL ETE BLOOD COUNT % eosinophils 0.6 % 0.0-7. 0 normal Not Available [facility] [address] [place] [address], [address], 11/17/2023 15:07:38 11/17/19 24 11/17/2023 COMPL ETE BLOOD COUNT % basophils 1.1 % 0.0-3. 0 normal Not Available [facility] [address] [place] [address], [address], 11/17/2023 15:07:38 11/17/19 24 11/17/2023 COMPL ETE BLOOD COUNT nucleated red cells 0.1 % 0.0-0. 9 normal Not Available [facility] [address] [place] [address], [address], 11/17/2023 15:07:38 11/17/19 24 11/17/2023 COMPL ETE BLOOD COUNT nucleated RBCs, absolute 0.01 10*3/ uL not estab. normal Not Available [facility] [address] [place] [address], [address], 11/17/2023 15:07:38 11/17/19 24 11/17/2023 TSH TSH 1.270 u[IU] /mL 0.270- 4.200 normal Not Available [facility] [address] [place] [address], [address], 11/17/2023 15:28:32 11/17/19 24 11/17/2023 BASIC METAB OLIC PANEL glucose 127 mg/dL 74-100 high Not Available [facility] [address] [place] [address], [address], 11/17/2023 15:37:48 11/17/19 24 11/17/2023 BASIC METAB OLIC PANEL blood urea nitrogen 38 mg/dL 6-20 high Not Available [facility] [address] [place] [address], [address], 11/17/2023 15:37:48 11/17/19 24 11/17/2023 BASIC METAB OLIC PANEL creatinine 1.39 mg/dL 0.70-1 .28 high Not Available [facility] [address] [place] [address], [address], 11/17/2023 15:37:48 11/17/19 24 11/17/2023 BASIC METAB OLIC PANEL BUN/creatini ne ratio 27 (calc ) 10-20 high Not Available [facility] [address] [place] [address], [address], 11/17/2023 15:37:48 11/17/19 24 11/17/2023 BASIC METAB OLIC PANEL sodium 141 mmol/ L 136-14 5 normal Not Available [facility] [address] [place] [address], [address], 11/17/2023 15:37:48 11/17/19 24 11/17/2023 BASIC METAB OLIC PANEL potassium 4.1 mmol/ L 3.4-5. 0 normal Not Available [facility] [address] [place] [address], [address], 11/17/2023 15:37:48 11/17/19 24 11/17/2023 BASIC METAB OLIC PANEL chloride 103 mmol/ L 98-107 normal Not Available [facility] [address] [place] [address], [address], 11/17/2023 15:37:48 11/17/19 24 11/17/2023 BASIC METAB OLIC PANEL carbon dioxide 27 mmol/ L 22-31 normal Not Available [facility] [address] [place] [address], [address], 11/17/2023 15:37:48 11/17/19 24 11/17/2023 BASIC METAB OLIC PANEL anion gap 11 (calc ) 7-25 normal Not Available [facility] [address] [place] [address], [address], 11/17/2023 15:37:48 11/17/19 24 11/17/2023 BASIC METAB OLIC PANEL calcium 9.3 mg/dL 8.6-10 .2 normal Not Available [facility] [place], [address], 11/17/2023 15:37:48 11/17/19 24 11/17/2023 BASIC METAB [...] in pregn ant women . For mihir gatese nts refer to https :[email or web address] pillai.o geo/brandon draper s/KDO QI/gf r_cal culat orPed Not Available [facility] [address] [place] [address], [address], 11/17/2023 15:37:48 11/17/19 24 11/17/2023 IRON PANEL -TOTA L AND TIBC iron 78 ug/dL 59-158 normal Not Available [facility] [address] [place] [address], [address], 11/17/2023 15:37:50 11/17/19 24 11/17/2023 IRON PANEL -TOTA L AND TIBC total iron binding cap. 293 ug/dL _(jeet c) 250-45 0 normal Not Available [facility] [address] [place] [address], [address], 11/17/2023 15:37:50 11/17/19 24 11/17/2023 IRON PANEL -TOTA L AND TIBC unsat.iron binding cap. 215 ug/dL 112-34 7 normal Not Available [facility] [address] [place] [address], [address], 11/17/2023 15:37:50 11/17/19 24 11/17/2023 IRON PANEL -TOTA L AND TIBC % saturation 27 %_(ca lc) 20-50 normal Not Available [facility] [address] [place] [address], [address], 11/17/2023 15:37:50 02/09/20 25 02/08/2025 COMPL ETE BLOOD COUNT white blood cells 4.4 10*3/ uL 3.8-10 .8 normal Not Available [facility] [address] [place] [address], [address], 02/08/2025 11:46:47 02/09/20 25 02/08/2025 COMPL ETE BLOOD COUNT red blood cells 3.99 10*6/ uL 4.20-5 .80 low Not Available [facility] [address] [place] [address], [address], 02/08/2025 11:46:47 02/09/20 25 02/08/2025 COMPL ETE BLOOD COUNT hemoglobin 11.5 g/dL 14.0-1 8.0 low Not Available [facility] [address] [place] [address], [address], 02/08/2025 11:46:47 02/09/20 25 02/08/2025 COMPL ETE BLOOD COUNT hematocrit 35.0 % 40.0-5 2.0 low Not Available [facility] [address] [place] [address], [address], 02/08/2025 11:46:47 02/09/20 25 02/08/2025 COMPL ETE BLOOD COUNT MCV 88 fL 80-100 normal Not Available [facility] [address] [place] [address], [address], 02/08/2025 11:46:47 02/09/20 25 02/08/2025 COMPL ETE BLOOD COUNT MCH 29 pg 26-35 normal Not Available [facility] [address] [place] [address], [address], 02/08/2025 11:46:47 02/09/20 25 02/08/2025 COMPL ETE BLOOD COUNT MCHC 33 g/dL 32-36 normal Not Available [facility] [address] [place] [address], [address], 02/08/2025 11:46:47 02/09/20 25 02/08/2025 COMPL ETE BLOOD COUNT RDW 15.7 % 11.0-1 5.0 high Not Available [facility] [address] [place] [address], [address], 02/08/2025 11:46:47 02/09/20 25 02/08/2025 COMPL ETE BLOOD COUNT MPV 9.9 fL 6.2-10 .5 normal Not Available [facility] [address] [place] [address], [address], 02/08/2025 11:46:47 02/09/20 25 02/08/2025 COMPL ETE BLOOD COUNT platelet count 175 10*3/ uL 150-40 0 normal Not Available [facility] [address] [place] [address], [address], 02/08/2025 11:46:47 02/09/20 25 02/08/2025 COMPL ETE BLOOD COUNT neutrophil,a bsolute 2.4 10*3/ uL 1.6-8. 4 normal Not Available [facility] [address] [place] [address], [address], 02/08/2025 11:46:47 02/09/20 25 02/08/2025 COMPL ETE BLOOD COUNT lymphocyte,a bsolute 1.4 10*3/ uL 0.4-5. 1 normal Not Available [facility] [address] [place] [address], [address], 02/08/2025 11:46:47 02/09/20 25 02/08/2025 COMPL ETE BLOOD COUNT monocyte,abs olute 0.5 10*3/ uL 0.0-1. 2 normal Not Available [facility] [address] [place] [address], [address], 02/08/2025 11:46:47 02/09/20 25 02/08/2025 COMPL ETE BLOOD COUNT eosinophil,a bsolute 0.0 10*3/ uL 0.0-0. 8 normal Not Available [facility] [address] [place] [address], [address], 02/08/2025 11:46:47 02/09/20 25 02/08/2025 COMPL ETE BLOOD COUNT basophil,abs olute 0.0 10*3/ uL 0.0-0. 3 normal Not Available [facility] [address] [place] [address], [address], 02/08/2025 11:46:47 02/09/20 25 02/08/2025 COMPL ETE BLOOD COUNT % neutrophils 55.5 % 42.0-7 8.0 normal Not Available [facility] [address] [place] [address], [address], 02/08/2025 11:46:47 02/09/20 25 02/08/2025 COMPL ETE BLOOD COUNT % lymphocytes 32.3 % 11.0-4 7.0 normal Not Available [facility] [address] [place] [address], [address], 02/08/2025 11:46:47 02/09/20 25 02/08/2025 COMPL ETE BLOOD COUNT % monocytes 10.5 % 0.0-11 .0 normal Not Available [facility] [address] [place] [address], [address], 02/08/2025 11:46:47 02/09/20 25 02/08/2025 COMPL ETE BLOOD COUNT % eosinophils 0.8 % 0.0-7. 0 normal Not Available [facility] [address] [place] [address], [address], 02/08/2025 11:46:47 02/09/20 25 02/08/2025 COMPL ETE BLOOD COUNT % basophils 0.9 % 0.0-3. 0 normal Not Available [facility] [address] [place] [address], [address], 02/08/2025 11:46:47 02/09/20 25 02/08/2025 COMPL ETE BLOOD COUNT nucleated red cells 0.1 % 0.0-0. 9 normal Not Available [facility] [address] [place] [address], [address], 02/08/2025 11:46:47 02/09/20 25 02/08/2025 COMPL ETE BLOOD COUNT nucleated RBCs, absolute 0.00 10*3/ uL not estab. normal Not Available [facility] [address] [place] [address], [address], 02/08/2025 11:46:47 02/09/20 25 02/08/2025 GLYCO HEMOG LOBIN A1C glyco HGB A1C 6.4 % 0.0-5. 6 high Not Available [facility] [address] [place] [address], [address], 02/08/2025 11:50:52 02/09/20 25 02/08/2025 GLYCO HEMOG LOBIN A1C estimated avg. glucose 137 mg/dL _(jeet c) normal A1c value s betwe en 5.7% to 6.4% indic ate predi abete s. Resul ts 6.5% or great er is diagn ostic of diabe trina. Ameri can Diabe trina Assoc iatio n (diab etes. org) Not Available [facility] [address] [place] [address], [address], 02/08/2025 11:50:52 02/09/20 25 02/08/2025 IRON iron 51 ug/dL 59-158 low Not Available [facility] [address] [place] [address], [address], 02/08/2025 15:38:17 02/09/20 25 02/08/2025 BASIC METAB OLIC PANEL glucose 123 mg/dL 74-100 high Not Available [facility] [address] [place] [address], [address], 02/08/2025 15:38:19 02/09/20 25 02/08/2025 BASIC METAB OLIC PANEL blood urea nitrogen 30 mg/dL 6-20 high Not Available [facility] [address] [place] [address], [address], 02/08/2025 15:38:19 02/09/20 25 02/08/2025 BASIC METAB OLIC PANEL creatinine 1.32 mg/dL 0.70-1 .20 high Not Available [facility] [address] [place] [address], [address], 02/08/2025 15:38:19 02/09/20 25 02/08/2025 BASIC METAB OLIC PANEL BUN/creatini ne ratio 23 (calc ) 10-20 high Not Available [facility] [address] [place] [address], [address], 02/08/2025 15:38:19 02/09/20 25 02/08/2025 BASIC METAB OLIC PANEL sodium 139 mmol/ L 136-14 5 normal Not Available [facility] [address] [place] [address], [address], 02/08/2025 15:38:19 02/09/20 25 02/08/2025 BASIC METAB OLIC PANEL potassium 3.9 mmol/ L 3.4-5. 0 normal Not Available [facility] [address] [place], [address], 02/08/2025 15:38:19 02/09/20 25 02/08/2025 BASIC METAB OLIC PANEL chloride 102 mmol/ L 98-107 normal Not Available [facility] [address] [place] [address], [address], 02/08/2025 15:38:19 02/09/20 25 02/08/2025 BASIC METAB OLIC PANEL carbon dioxide 26 mmol/ L 22-31 normal Not Available [facility] [address] [place] [address], [address], 02/08/2025 15:38:19 02/09/20 25 02/08/2025 BASIC METAB OLIC PANEL anion gap 11 (calc ) 7-25 normal Not Available [facility] [address] [place] [address], [address], 02/08/2025 15:38:19 02/09/20 25 02/08/2025 BASIC METAB OLIC PANEL calcium 9.7 mg/dL 8.6-10 .2 normal Not Available [facility] [address] [place], [address], 02/08/2025 15:38:19 02/09/20 25 02/08/2025 BASIC METAB [...] s/KDO QI/gf r_cal culat orPed Not Available [facility] [address] [place] [address], [address], 02/08/2025 15:38:19 02/09/20 25 02/08/2025 TSH TSH 1.910 u[IU] /mL 0.270- 4.200 normal Not Available [facility] [address] [place], [address], 02/08/2025 15:40:06 10/24/19 24 10/24/2023 remot e devic e inter rogat ion (PROC ) No observ ation record ed. [email or web address] Not Available 2023 19:35:00 10/31/19 24 10/29/2023 remot e devic e inter rogat ion (PROC ) No observ ation record ed. [email or web address] Not Available 2023 18:49:03 11/17/19 24 11/17/2023 US, doppl er echoc ardio gram, w/ color flow No observ ation record ed. [email or web address] [place] [address] Radiology [address] , [place], [address], 11/17/2023 15:50:04 01/23/20 24 01/23/2024 remot e [...] record ed. [email or web address] Not Available 2024 08:47:36 03/07/2003/01/2025 remot e devic e inter rogat ion (PROC ) No observ ation record ed. [email or web address] Not Available 2024 08:39:26 04/01/20 25 04/01/2025 remot e devic e inter rogat ion (PROC ) No observ ation record ed. [email or web address] Not Available 2024 21:08:42 04/22/20 25 04/18/2025 remot e devic e inter rogat ion (PROC ) No observ ation record ed. [email or web address] Not Available 2024 08:34:11 04/26/2004/26/2025 remot e devic e inter rogat ion (PROC ) No observ ation record ed. [email or web address] Not Available 2024 10:39:03 05/02/20 25 05/02/2025 remot e devic e inter rogat ion (PROC ) No observ ation record ed. [email or web address] Not Available 2024 11:55:32 06/03/20 25 06/02/2025 remot e devic e inter rogat ion (PROC ) No observ ation record ed. [email or web address] Not Available 2024 17:22:27 07/04/2007/03/2025 remot e devic e inter rogat ion (PROC ) No observ ation record ed. [email or web address] Not Available 2024 08:23:23 08/05/2008/03/2025 remot e devic e inter rogat ion (PROC ) No observ ation record ed. [email or web address] Not Available 2024 21:45:48 Result Notes None recorded. 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 From [employer] Load;Pro vider: Karon Caldera;Sta tus: [facility] 0 09:34:57 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 artery 23351581545 07 Active 2014 From [employer] Load;Pro vider: Karon Caldera;Sta tus: Active Charisma Butt [facility] 0 09:34:57 Hyperten sive disorder 63933422 Active 2014 From [employer] Load;Pro vider: Karon Caldera;Sta tus: Active Cammy Bone [facility] 9 07:48:44 Hernia of abdomina l cavity 66785948 Active 2014 Provider : Andrew Henriquez Jr;St atus: Active Charisma Butt [facility] 0 09:34:57 Neoplasm of head and neck Active 2014 From [employer] Load;Pro vider: Andrew Henriquez Jr;St atus: Active Charisma Butt [facility] 0 09:34:57 Right bundle branch block 24437159 Completed 201512/17/2019 From [employer] Load;Pro vider: Lacie Easley;Sta tus: Active BLANK HUHGES MD [address] [place] [address], [address], [facility] 0 08:49:09 Aortic stenosis , non-rheu matic 163094996 Active 2015 From [employer] Load;Pro vider: Lacie Easley;Sta tus: Active Charisma Butt [facility] 0 09:34:57 Injury of lower leg 957688821 Active 2015 From [employer] Load;Pro vider: Andrew Henriquez Jr;St atus: Active Charisma Butt [facility] 0 09:34:57 Actinic keratosi s 216432108 Active 2015 From [employer] Load;Pro vider: Bernice Cristina ;Status: Active Charisma Butt [facility] 0 09:34:57 Aortic valve disorder 5937098 Completed 201511/05/2018 From [employer] Load;Pro vider: Lacie Easley;Sta tus: Active BLANK HUGHES MD [address] [place] [address], [address], [facility] 9 11:44:42 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 Active 2016 Charisma Butt [facility] 0 09:34:57 Benign hyperten twyla 93268800 Active 2016 Charisma Butt [facility] 0 09:34:57 Hyperlip idemia 54406129 Active 2016 KARON CALDERA MD [address] [place] [address], [address], [facility] 7 12:17:30 History of polyp of colon 767802045 Active 2016 Charisma Butt [facility] 0 09:34:57 Paroxysm al atrial fibrilla tion 732782627 Completed 201611/05/2018 Post CABG Amio Rx 2007- 2 BLANK HUGHES MD [address] [place] [address], [address], [facility] 9 11:44:52 Long-ter m drug therapy Active 2016 Flecaini de Charisma Butt [facility] 0 09:34:57 Coronary artery bypass graft Completed 201811/06/20182007 BLANK HUGHES MD [address] [place], [address], [facility] [facility] 9 09:40:49 Atrial flutter 3756179 Active 2018 BLANK HUGHES MD [address] [place], [address], [facility] 9 11:43:42 Atrial fibrilla tion and flutter 343250177 Active 2018 post CABG; Amio Rx 2 [facility] 0 09:34:57 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 [facility] 0 09:34:57 Anticoag ulant therapy Active 2018 [facility] 0 09:34:57 EKG: right bundle branch block 894541821 Completed 201812/17/2019 And LAFB LACIE EASLEY MD [address] [place], [address], [facility] 0 12:29:00 Adult health examinat ion Active 2018 [facility] 0 09:34:57 Stitch infectio n 181264704 Active 2019 [facility] 0 09:34:57 Right bundle branch block AND left anterior fascicul ar block 13874658 Active 2019 [facility] 0 09:34:57 Biventri cular cardiac pacemake r present 51742644386 105 Active 2019 [facility] 0 09:34:57 History of aortic valve replacem ent 59642760472 00 Active 2019 KARON CALDERA MD [address] [place], [address], [facility] 0 13:11:21 History of cardiac pacemake r in situ 670022032 Active 2019 [facility] Butt [facility], [facility] 0 09:34:57 Long-ter m current use of anticoag ulant 840283179 Active 2019 LACIE EASLEY MD [address] [place], [address], [facility] 0 12:28:58 EKG: right bundle branch block 080994746 Active 2019 And LAFB LACIE EASLEY MD [address] [place], [address], [facility] 0 12:29:00 Iron deficien cy anemia 51001814 Active 2021 [place] [address] [place] [address], [address], [facility] 2 19:46:39 Microsco pic hematuri a 110356053 Active 2021 MARTHA Morrison MD [address] [place], [address], [facility] 2 19:46:40 Problem Notes None recorded. Procedures Surgical History Date Name Laterality Status Provider Name and Address Organization Details Recorded Time 12/19/19 24 Destruction Premalignant Lesion(s) completed Yamilka Gibson [facility] 12/19/2023 11:39:35 10/29/19 22 Destruction Premalignant Lesion(s) completed Yamilka Waters [facility] 10/29/2021 10:26:45 10/23/19 22 Echocardiogram completed ABEBA HOOKS MD [address] [place], [address], [facility] 10/25/2021 09:45:48 06/22/20 21 Stress Test - Nuclear Lexiscan completed ABEBA HOOKS MD [address] [place], [address], [facility] 06/22/2021 16:28:33 10/29/19 21 Destruction Premalignant Lesion(s) completed [facility] 10/29/2020 09:57:02 07/15/20 20 Stress Test - Echo completed Leah Sernaphart [facility] 07/15/2020 09:19:41 07/15/20 20 Echocardiogram completed LACIE EASLEY MD [address] [place] [address] [place], [address], [facility] 07/16/2020 08:24:28 06/02/20 20 Echocardiogram completed LACIE EASLEY MD [address] [place] [address] [place], [address], [facility] 07/16/2020 08:22:04 11/07/19 20 Pacemaker completed LACEI EASLEY MD [address] [place] [address], [address], [facility] 11/08/2019 08:21:57 10/30/19 20 replacement of aortic valve completed Ree Pacheco [facility] 11/22/2019 10:24:33 09/11/20 19 Cardiac Catheterization completed LACIE EASLEY MD [address] [place] [address], [address], [facility] 09/11/2019 10:05:56 08/09/20 19 Echocardiogram completed LACIE EASLEY MD [address] [place] [address], [address], [facility] 08/09/2019 15:54:43 07/10/20 19 Destruction Premalignant Lesion(s) completed Alejandra Wiley [facility] 07/10/2019 12:14:56 06/28/20 19 Echocardiogram completed LACIE EASLEY MD [address] [place] [address], [address], [facility] 06/28/2019 11:06:08 09/26/20 18 Echocardiogram completed LACIE AESLEY MD [address] [place] [address], [address], [facility] 09/26/2018 14:31:19 07/10/20 18 Destruction Premalignant Lesion(s) completed Alejandra Wiley [facility] 07/10/2018 11:33:05 06/14/20 18 Cerumen removal - Instruments, Unilateral completed SHRUTHI TOURE MD [address] [place], [address], [facility] 06/14/2018 10:01:22 02/29/20 18 Echocardiogram completed LACIE EASLEY MD [address] [place] [address], [address], [facility] 02/28/2018 13:45:22 09/05/20 17 Echocardiogram completed LACIE EASLEY MD [address] [place] [address], [address], [facility] 09/05/2017 11:25:38 07/07/20 17 Biopsy Skin Lesion; Tangential completed Drew Hill [facility] 07/07/2017 11:54:14 09/14/20 16 Colonoscopy completed Deana Blackwell [facility] 07/29/2017 08:35:34 10/15/19 15 [facility] 11:42:33 10/10/19 13 Other completed P[facility] 02/28/2017 11:43:17 10/10/19 12 Hernia repair w/mesh completed Pema [facility] 02/28/2017 11:42:51 05/27/20 08 Cardiac Surgery completed LACIE EASLEY MD [address] [place] [address], [address], [facility] 09/05/2017 11:43:26 Other completed Kristen Luis [facility] 12/12/2018 12:28:38 Urologic Surgery completed Emelina Perez [facility] 11/02/2016 11:11:18 Imaging Results None recorded. Procedure Notes None recorded. 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 [id number] Y Alejandra blanco [facility] 05/27/2025 15:44:02 Allergies Allergen ID Allergen Name Allergen Category Reaction Reaction Severity Criticality Documentation Date Start Date Code Code System Note Provider Name and Address Organization Details Recorded Time 768665 amiodaron e hydrochlo ride medicatio n Not available Not available Not available 09/02/20162010 4 RxNorm Comme nt: inocencia fernandez thyro id;Cr eated By: Connie Wilburn ed Date: 07/19 10:32 :22 AM; Not Available [facility] 6 13:44:10 496735 amiodaron e medicatio n Not available Not available Not available 08/07/2020 703 RxNorm Other react ions and sever ities : 'Unkn own (qual ifier value )'. [facility]t [facility] 0 09:34:56 805864 clopidogr el medicatio n Not available Not available Not available 08/07/2020 59677 RxNorm [facility] 0 09:34:56 Medications Name Sig Start [...] Irene 4 boxes given in office Lot #[id number] A exp: 06/01 KL Not Available Not Available Not Available Vitals Date Recorded Body height Heart rate Respiratory rate Oxygen saturation Oxygen saturation in Arterial blood by Pulse oximetry Systolic And Diastolic Provider Name and Address Organization Details Last Updated DateTime 4 175.26 cm 67 /min 16 /min 97 % 97 % 90/62 mm[Hg] Stephanie Shields [facility] 4 11:27:27 Date Recorded Body height Body mass index (BMI) Body weight Heart rate Oxygen saturation Oxygen saturation in Arterial blood by Pulse oximetry Systolic And Diastolic Provider Name and Address Organization Details Last Updated DateTime 5 175.26 cm 29.7 kg/m2 93290.3 5 g 61 /min 96 % 96 % 124/86 mm[Hg] Fan Garza [facility] 5 11:34:41 Date Recorded Body height Oxygen saturation Oxygen saturation in Arterial blood by Pulse oximetry Heart rate Body mass index (BMI) Body weight Systolic And Diastolic Provider Name and Address Organization Details Last Updated DateTime 4 175.26 cm 95 % 95 % 65 /min 29.3 kg/m2 99194.6 9 g 110/68 mm[Hg] Cammy Larsen [facility] 4 11:03:39 Social History Question Answer Notes LastModified by Organizat ion Details LastModified Time Tobacco Smoking Status Former Smoker QUIT 2007 Emelina Perez bella, [facility] 11/02/2016 11:09:44 Do You Have An Advance [...] When Did You Quit Smoking? 6-10yearssince lastcigarette [email or web address] Information not available 09/05/2017 Which Of Your Hands Is Dominant? Left Information not available 04/02/2019 Hard Of Hearing Or Deaf In One Or Both Ears? No Information not available 01/27/2017 Legally Blind In One Or Both Eyes? No Information not available 01/27/2017 Live Alone Or With Others? With Others Information not available 01/27/2017 Marital Status [email or web address] Informatio n not available 04/02/2019 What Was [...] used smokeless tobacco? Never used smokeless tobacco [email or web address] Information not available 06/28/2019 Are you currently employed? No Information not available 01/27/2017 Are you able to care for yourself independently? Yes Information not available 01/27/2017 What is your occupation? Retired Information not available 01/27/2017 Do you or have you ever used e-cigarettes or vape? Never used electronic cigarettes [email or web address] Information not available 06/28/2019 What is your exercise level? Moderate Information not available 02/14/2018 Mental Status None recorded. Family History Relationship Description Onset Age of this Age Resolved Age Notes LastModified by Organization Details LastModified Time Mother Family history of malignant neoplasm Not available 2016 11:42:04 Medical History Condition Response Atrial Fibrillation Y Pacemaker Y High Cholesterol Y Skin Problems Y Heart Disease Y Hypertension Y Glasses/Contacts Y Immunizations Vaccine Type Date Status Note Provider Nam e and Address Organization Details Recorded Time Influenza, high-dose, trivalent, PF 8 completed Not Available [facility] 10/27/2019 02:51:10 Pneumococcal conjugate PCV 13 6 completed Charisma Butt null, [facility] 08/07/2020 09:34:58 pneumococcal polysaccharide PPV23 0 completed Charisma Butt null, [facility] 08/07/2020 09:34:58 Hep A, unspecified formulation 2 completed Charisma Butt null, [facility] 08/07/2020 09:34:58 Hep B, unspecified formulation 2 completed Charisma Butt null, [facility] 08/07/2020 09:34:58 zoster live 2 completed Charisma Butt null, [facility] 08/07/2020 09:34:58 Tdap 2 completed Charisma Butt null, [facility] 08/07/2020 09:34:58 Influenza, high-dose, trivalent, PF 9 completed Not Available [facility] 10/27/2019 02:48:21 Influenza, high-dose, quadrivalent, PF 0 completed Shadia Salmeron null, [facility] 07/02/2020 10:01:55 Influenza, high-dose, quadrivalent, PF 1 completed Kierra Rashid [facility], [facility] 07/22/2021 09:54:55 Tdap 0 completed [facility]isma Butt [facility], [facility] 08/07/2020 09:34:58 SARS-COV-2 (COVID-19) vaccine, UNSPECIFIED 1 completed LACIE EASLEY MD [facility] [place], [address], [facility] 12/24/2020 11:30:18 COVID-19, mRNA, LNP-S, PF, 100 mcg/0.5mL dose or 50 mcg/0.25mL dose 1 completed Kristen Short [facility] 02/02/2021 10:22:15 Influenza, high-dose, trivalent, PF 7 completed Not Available [facility] 10/27/2019 02:45:19 COVID-19, mRNA, LNP-S, PF, 100 mcg/0.5mL dose or 50 mcg/0.25mL dose completed Bebeto Tate Miroslava [facility] 10/30/2021 10:30:31 Past Encounters Encounter ID Performer Location Encounter Start Date Encounter Closed Date Diagnosis/Indication Diagnosis SNOMED-CT Code Diagnosis ICD10 Code Diagnosis IMO Codes Diagnosis Note [id number] LACIE HENRIQUEZ JR, MD GENERAL SURGERY [address] [address] 11/02/2016 10:36:52 11/02/2016 15:16:01 Diastasis recti 07571570 M62.08 I told him this does not require any surgical treatment and there is no risk of bowel entrapment . He can follow-up as needed. 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 His last echocardio gram showed moderate to severe by echo criteria but he remains fully active and having none of the cardinal symptoms of aortic stenosis which were reviewed and discussed in detail. Would like to recheck an echocardio gram upon return visit. 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 Paroxysmal atrial fibrillation 030469832 I48.0 The patient remains in normal sinus [...] any change in status. Long-term drug therapy 280065580 Z79.899 No evidence of flecainide toxicity with normal QTC. 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 The risks, alternativ es, and benefits were discussed. An informed consent was discussed with patient and signed. The area was cleansed with alcohol/hi biclens solution, and then anesthetiz ed with 1% lidocaine with epinephrin e. A shave biopsy was preformed. Hemostasis was achieved with drysol and polysporin and bandage were applied. 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 His last echocardio gram showed moderate to severe by echo criteria but he remains fully active and having none of the cardinal symptoms of aortic stenosis which were reviewed and discussed in detail. Would like to recheck an echocardio gram upon return visit. [id number] LACIE EASLEY MD CARDIOLOG Y EAST [address] [facility] [address] [place] [address] 09/05/2017 10:07:59 09/05/2017 12:56:31 Aortic stenosis, non-rheumatic 828371290 I35.0 The patient remains asymptomat ic from [...] echo in one year. 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 Paroxysmal atrial fibrillation 691340245 I48.0 The patient remains in normal sinus [...] pacemaker at this time. Long-term drug therapy 487858268 Z79.899 Flecainide .Patient shows no evidence of toxicity to the antiarrhyt [facility] drug program. Electrocar diogram shows stable QTc interval. Risk of medication and monitoring reviewed with patient. 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 Paroxysmal atrial fibrillation 281066369 I48.0 The patient remains in normal sinus [...] pacemaker at this time. Long-term drug therapy 264335228 Z79.899 Flecainide .Patient shows no evidence of toxicity to the antiarrhyt hmic drug program. Electrocar diogram shows stable QTc interval. Risk of medication and monitoring reviewed with patient. [id number] LACIE EASLEY MD CARDIOLOG [address] [place] [address] 02/28/2018 12:09:42 02/28/2018 15:29:20 Aortic stenosis, non-rheumatic 407633816 I35.0 I reassured him that his echocardio gram and EKG have not significan tly changed since last seen. I feel his cough is related to probable recent viral bronchitis slowly resolving. I did mention lisinopril occasional ly causes dry nonproduct thomas cough however since his symptoms have been so recent I doubt it's related to AYAN inhibitor. 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 Paroxysmal atrial fibrillation 514229301 I48.0 The patient remains in normal sinus [...] pacemaker at this time. Long-term drug therapy 398966730 Z79.899 Flecainide .Patient shows no evidence of toxicity to the antiarrhyt hmic drug program. Electrocar diogram shows stable QTc interval. Risk of medication and monitoring reviewed with patient. [id number] LACIE EASLEY MD ECHO VASCULAR LAB [address] [place] [address] 02/28/2018 12:10:13 03/07/2018 11:15:38 Aortic stenosis, non-rheumatic 996122853 I35.0 The patient remains asymptomat ic from [...] follow-up appointmen t as soon as possible. [id number] LACIE EASLEY MD CARDIOLOG Y [address] [place] [address] 05/23/2018 09:18:18 05/23/2018 11:15:56 Aortic stenosis, non-rheumatic 047191802 I35.0 IManagemen t of this problem was reviewed with the patient. No changes recommende d, status for this problem is stable at this time. 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 Paroxysmal atrial fibrillation 865024486 I48.0 The patient remains in normal sinus [...] pacemaker at this time. Long-term drug therapy 631469780 Z79.899 Flecainide .Patient shows no evidence of toxicity to the antiarrhyt [facility] drug program. Electrocar diogram shows stable QTc interval. Risk of medication and monitoring reviewed with patient. [id number] MARTHA ENG APRN INTERNAL MEDICINE [address] [place] [address] 06/05/2018 08:36:12 06/05/2018 09:54:25 Impacted cerumen in left ear 2839354802 813329 H61.22 Attempted cerumen removal today with hydrogen peroxide and currette for 15 min. extensive wax and I was unable to entirely clear this. Sending to ENT for evaluation and use of suction. Also discussed with Riya Collins APRN who agreed with this POC. [id number] SHRUTHI TOURE MD ENT [address] [place] [address] 06/14/2018 09:18:28 06/14/2018 10:21:29 Hearing loss 28658005 H91.92 secondary to left cerumen impaction. Removed. Impacted c erumen in left ear 3546106219 432956 H61.22 [id number] BERNICE CRISTINA DO [facility] [address] [place] [address] 07/10/2018 10:53:37 07/10/2018 11:38:49 History of malignant neoplasm of skin 751345496 Z85.828 scalp- No recurrence Actinic keratosis 718811 007 L57.0 Education then treated with LN; scalp x2 , R helix x1 pt tolerated well advised pt what to expect with freezing Solar lentiginosis 97086 2006 L81.4 Benign Reassuranc e Senile hyperkeratosis 39 2816152 L82.1 Benign Reassuranc e Treated with LN per patients request : mid forehead x1 pt tolerated well advised pt what to expect with freezing Senile angioma 5242048 I 78.1 Benign Reassuranc e [id number] KARON CALDERA MD INTERNAL MEDICINE [address] [place] [address] 07/31/2018 10:21:31 07/31/2018 12:39:37 Adult health examination 293526147 Z00.00 Administra tion of influenza vaccine 26926994 Z23 Benign hypertension 1072 5009 I10 Hyperlipidemia 91334553 E78.2 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 The patient has tolerated gone into atrial fibrillati on without any difficulty and continues to be very physically active. He has not yet clinically a candidate for valve surgery. 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 Paroxysmal atrial fibrillation 874450904 I48.0 Electrocar diogram today shows atrial flutter/fi brillation with heart rate of 86. The patient is asymptomat ic. I will initiate Eliquis and arrange for cardiovers ion if still in atrial fibrillati on and one month follow-up visit. Long-term drug therapy 037232642 Z79.899 Flecainide .Patient shows no evidence of toxicity to the antiarrhyt [facility] drug program. Electrocar diogram shows stable QTc interval. Risk of medication and monitoring reviewed with patient. Anticoagulant therapy 18 4722705 Z79.01 Eliquis 5 mg twice a day initiated. Baseline CBC and CMP and TSH ordered.El ectronic prescripti on sent to patient's pharmacy. Samples given.In light of his coronary disease is to continue low-dose aspirin as well. [id number] LACIE EASLEY MD ECHO VASCULAR LAB CLOSED [address] [facility] [place] [address] 09/26/2018 12:26:27 09/27/2018 09:53:35 Aortic valve disorder 2671885 I35.9 [id number] LACIE EASLEY MD CARDIOLOG Y [address] [place] [address] 11/02/2018 11:38:03 11/02/2018 13:11:49 Aortic stenosis, non-rheumatic 753440393 I35.0 Echocardio gram continues to show similar findings. The patient has tolerated gone into atrial fibrillati on without any difficulty and continues to be very physically active. He has not yet clinically a candidate for valve surgery. 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 Paroxysmal atrial fibrillation 579974922 I48.0 Electrocar diogram today shows atrial flutter/fi [...] on with Dr. Hughes. Long-term drug therapy 743035465 Z79.899 Flecainide .Patient shows no evidence of toxicity to the antiarrhyt [facility] drug program. Electrocar diogram shows stable QTc interval. Risk of medication and monitoring reviewed with patient. Anticoagulant therapy 18 1273104 Z79.01 Eliquis 5 mg twice a day initiated. Baseline CBC and CMP and TSH ordered.El ectronic prescripti on sent to patient's pharmacy. Samples given.In light of his coronary disease is to continue low-dose aspirin as well. Renewal of prescription 158132562 Z76.0 [id number] BLANK HUGHES MD CARDIOLOG Y [address] [place] [address] 11/06/2018 08:57:28 11/06/2018 10:45:08 Atrial flutter 6626221 I48.92 The patient has a class I indication for ablation. I discussed ablation therapy with the patient to include the procedural aspects and potential benefits. The patient understand s and accepts that potential complicati ons include, but are not limited to: , stroke, worsening arrytyhmia , perforatio n, need for urgent surgery, need for [...] late atrial fibrillati on. 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 Aortic jazmyne nosis, non-rheumatic 191177543 I35.0 Serial clinical and echocardio graphic evaluation will be performed. [id number] YEIMY GIBSON PA-C INTERNAL MEDICINE [address] [place] [address] 12/05/2018 09:38:45 12/14/2018 13:25:53 Herpes zoster 5412031 B02.9 Discussed need to see tissue specialist for exam. Start Valtrex. 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 Aortic jazmyne nosis, non-rheumatic 429617062 I35.0 Management of this problem was reviewed with the patient. No changes recommende d, status for this problem is stable at this time. Long-term drug therapy 864119669 Z79.899 Flecainide .Patient shows no evidence of toxicity to the antiarrhyt [facility] drug program. Electrocar diogram shows stable QTc interval. Risk of medication and monitoring reviewed with patient. Anticoagulant therapy 18 9785620 Z79.01 Eliquis 5 mg twice a day initiated. Baseline CBC and CMP and TSH ordered.El ectronic prescripti on sent to patient's pharmacy. Samples given.In light of his coronary disease is to continue low-dose aspirin as well. Atrial flutter 6044400 I 48.92 Patient remains unaware of his symptoms. He is currently in normal sinus rhythm. I advise continuing Eliquis for 3 months and flecainide as well. Hopefully medication s can be stopped since his ablation was successful .RTC: 6 months with EKG.RTC: 6 months with EKG. 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 He is currently in normal sinus rhythm. I advise continuing Eliquis for 3 months and flecainide as well. Hopefully medication s can be stopped since his ablation was successful .RTC: 6 months with EKG.RTC: 6 months with EKG. 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 Aortic jazmyne nosis, non-rheumatic 071407794 I35.0 Management of this problem was reviewed with the patient. No changes recommende d, status for this problem is stable at this time. Long-term drug therapy 320184269 Z79.899 Flecainide .Patient shows no evidence of toxicity to the antiarrhyt [facility] drug program. Electrocar diogram shows stable QTc interval. Risk of medication and monitoring reviewed with patient. Anticoagulant therapy 18 0564861 Z79.01 Eliquis 5 mg twice a day initiated. Baseline CBC and CMP and TSH ordered.El ectronic prescripti on sent to patient's pharmacy. Samples given.In light of his coronary disease is to continue low-dose aspirin as well. EKG: right bundle branch block 372163698 I45.10 Unchanged and chronic. [id number] LACIE EASLEY MD ECHO VASCULAR LAB CLOSED [address] [place] [address] 06/28/2019 10:06:28 07/02/2019 08:09:17 Aortic valve disorder 8134344 I35.9 [id number] BERNICE CRISTINA DO DERMATOLO GY EAST [address] [place] [address] 07/10/2019 11:16:20 07/10/2019 13:03:13 History of malignant neoplasm of skin 349862241 Z85.828 scalp- No recurrence Solar lentiginosis 04527 2006 L81.4 Benign Reassuranc e Senile hyperkeratosis 39 9174679 L82.1 Benign Reassuranc e Senile angioma 7830124 I 78.1 Benign Reassuranc e Actinic keratosis 022986 007 L57.0 Education then treated with LN; posterior vertex scalp x1, L vertex scalp x2 , R upper nasal bridge x1 pt tolerated well advised pt what to expect with freezing Skin tag 251578299 L91.8 R neck x1 , anterior neck x1 removed with gradle scissors pt tolerated well Wound care discussed with patient. Leave the bandage on for 24 hrs. Clean the area daily with warm soapy water, and apply polysporin ointment and a bandaid once daily until healed. Call the office if any increase in redness, drainage, or pain. 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 [place] [address] [place] [address] 08/09/2019 12:41:10 08/10/2019 08:41:04 Aortic stenosis, non-rheumatic 129404839 I35.0 Management of this problem was reviewed with the patient. No changes recommende d, status for this problem is stable at this time. [id number] LACIE EASLEY MD CARDIOLOG Y EAST 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 Aortic jazmyne nosis, non-rheumatic 050515897 I35.0 Patient is now experienci ng exertional angina.We' ll proceed with cardiac catheteriz ation. EKG: right bundle branch block 544352072 I45.10 Unchanged and chronic. [id number] IRENE MAJANO PA-C CARDIOLOG Y [address] FLOOR [place] [address] 5 11/15/2019 10:15:42 11/15/2019 13:39:26 Stitch infection 267069783 T81.49XA [id number] CHEMO TURNER PA-C NEUROSURG [facility] CLOSED [address] [place] [address] 0 11/22/2019 10:07:42 11/30/2019 09:28:12 Subdural intracranial hematoma 84739717 S06.5X0A [id number] IRENE MAJANO PA-C CARDIOLOG Y [address] [place],[facility] FLOOR [place] [address] 5 11/22/2019 11:30:46 11/22/2019 12:37:33 Stitch infection 451492655 T81.49XA [id number] BLANK HUGHES MD CARDIOLOG Y [address] [place],[address] [place] [address] 5 12/03/2019 13:07:14 12/03/2019 15:09:40 [id number] BLANK HUGHES MD CARDIOLOG Y [address] [place],[facility] FLOOR [place] [address] 5 12/06/2019 13:09:39 12/10/2019 11:07:57 Wound of skin 386138341 T14.8XXA I am suspicious that the patient [...] going to recommend removal of the system. [id number] BLANK HUGHES MD HEART STATION [address] [place] [address] 5 12/06/2019 14:41:36 12/06/2019 14:41:50 Complete atrioventricular block 51511588 I44.2 [id number] BLANK HUGHES MD CARDIOLOG Y [address] [place],[address] [place] [address] 5 12/17/2019 08:15:01 12/17/2019 10:14:38 Biventricular cardiac pacemaker present 1453246597 9105 Z95.0 I do not believe that [...] there be recurrent drainage in the interim. [id number] LACIE EASLEY MD CARDIOLOG Y [address] [place],[address] [place], [place] [address] 01/03/2020 09:43:45 01/03/2020 10:57:00 Biventricular cardiac pacemaker present 5244210102 9105 Z95.0 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 8182500832 107 I25.10 Medication changes, as well as [...] change in status. Aortic jazmyne nosis, non-rheumatic 222331100 I35.0 Residual murmur post TAVR EKG: right bundle branch block 424807817 I45.10 Unchanged and chronic. [id number] BLANK HUGHES MD CARDIOLOG Y [address] [place] [address] 5 01/03/2020 09:44:48 01/03/2020 12:50:59 [id number] BLANK HUGHES MD CARDIOLOG Y [address] [place] [address] 5 01/10/2020 10:00:19 01/10/2020 10:55:24 Biventricular cardiac pacemaker present 8544062042 9105 Z95.0 Although the likelihood of recurrent complete heart block in this clinical situation is quite low it is not 0. The device pocket appears normal and unless we see evidence of recurrent drainage or active infection I am inclined to leave the device in situ. I will see the patient in follow-up in 6 months time. [id number] KARON CALDERA MD INTERNAL MEDICINE [address] [place] [address] 01/31/2020 10:32:29 01/31/2020 10:54:54 History of aortic valve replacement 5872326035 100 Z95.4 History of cardiac pacemaker in situ 996002639 Z95.0 [id number] CAN GOLDMAN PA-C FAMILY MEDICINE [address] [place] [address] 04/24/2020 12:30:02 04/24/2020 16:26:12 Candidal intertrigo 396602625 B37.2 Herpes zoster 5180922 B0 2.9 [id number] LACIE EASLEY MD CARDIOLOG Y [address] [place], [place] [address] 06/02/2020 12:37:52 06/02/2020 14:29:23 Biventricular cardiac pacemaker present 9641014203 9105 Z95.0 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 8576547024 107 I25.10 Medication changes, as well as [...] change in status. Aortic jazmyne nosis, non-rheumatic 769516631 I35.0 Residual murmur post TAVR, 1+ AI by echo. He requires dental work and I have advised the patient that he requires antibiotic prophylaxi s since he has a prosthetic aortic valve. EKG: right bundle branch block 079597108 I45.10 Unchanged and chronic. [id number] LACIE EASLEY MD ECHO VASCULAR LAB CLOSED [address] [place] [address] 06/02/2020 12:39:25 06/03/2020 08:31:58 Aortic valve disorder 0957503 I35.9 [id number] LESLY CORDOVA MD FLU VACCINE CLOSED [address] [place] [address] 07/02/2020 09:59:03 07/02/2020 10:06:05 Administration of influenza vaccine 79675791 Z23 [id number] LACIE EASLEY MD CARDIOLOG Y EAST [address] [place] [address] 07/09/2020 12:38:26 07/09/2020 14:40:42 Biventricular cardiac pacemaker present 0108927498 9105 Z95.0 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 0113078919 107 I25.759 He is now experienci ng episodes of chest discomfort with some atypical features. I advise treadmill stress echocardio gram for evaluation . Patient encouraged to take nitroglyce rin when he has chest discomfort . Aortic jazmyne nosis, non-rheumatic 815291792 I35.0 Residual murmur post TAVR, 1+ AI by echo. He requires dental work and I have advised the patient that he requires antibiotic prophylaxi s since he has a prosthetic aortic valve. EKG: right bundle branch block 165680760 I45.10 Unchanged and chronic. [id number] LACIE EASLEY MD ECHO VASCULAR LAB CLOSED [address] [facility] [place] [address] 07/15/2020 08:51:41 07/17/2020 08:37:22 Chest pain 38743903 R07.9 [id number] LACIE EASLEY MD HEART STATION [address] [place],[facility] FLOOR [place] [address] 5 07/15/2020 08:53:07 07/16/2020 08:20:38 [id number] LACIE EASLEY MD CARDIOLOG Y [address] [place] [address] 5 07/16/2020 08:59:55 07/16/2020 10:41:36 Biventricular cardiac pacemaker present 5136853779 9105 Z95.0 Pacemaker in situ 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 3026664668 107 I25.759 He is now experienci ng episodes of chest discomfort with some atypical features. I advise treadmill stress echocardio gram for evaluation . Patient encouraged to take nitroglyce rin when he has chest discomfort . Aortic jazmyne nosis, non-rheumatic 036819681 I35.0 Given his change and echocardio gram I'm concerned that he may have developed leaflet thrombus in his TAVR possibly related to interrupti on of anticoagul ation due to subdural hematoma. The patient's symptoms are relatively stable and I would like to have a VITOR performed to confirm function of his aortic valve. EKG: right bundle branch block 094821950 I45.10 Unchanged and chronic. [id number] LACIE EASLEY MD CARDIOLOG Y [address] [place] [address] 5 08/21/2020 10:15:24 08/21/2020 14:42:10 Biventricular cardiac pacemaker present 7039592246 9105 Z95.0 Assessment was performed of the implanted device. Any needed adjustment s and setting changes were personally supervised by me and are documented in follow-up form. The device is functionin g well. The patient was instructed to continue in the device surveillan ce program appropriat e for the device. 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 I advise treadmill stress echocardio gram for evaluation . Patient encouraged to take nitroglyce rin when he has chest discomfort .Since he now has a pacemaker I feel he can take beta dalila and I would like to add ranolazine .Electroni c prescripti on sent to patient's pharmacy. Aortic jazmyne nosis, non-rheumatic 950779458 I35.0 Given his change and echocardio gram I'm concerned that he may have developed leaflet thrombus in his TAVR possibly related to interrupti on of anticoagul ation due to subdural hematoma. The patient's symptoms are relatively stable and I would like to have a VITOR performed to confirm function of his aortic valve. EKG: right bundle branch block 428251836 I45.10 Unchanged and chronic. Long-term current use of anticoagulant 880698014 Z79.01 Resume warfarin per patient request. [id number] LACIE EASLEY MD CARDIOLOG Y [address] [place] [address] 09/24/2020 11:42:49 09/24/2020 12:30:56 Biventricular cardiac pacemaker present 4728236731 9105 Z95.0 Assessment was performed of the implanted device. Any needed adjustment s and setting changes were personally supervised by me and are documented in follow-up form. The device is functionin g well. The patient was instructed to continue in the device surveillan ce program appropriat e for the device. 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 Aortic jazmyne nosis, non-rheumatic 471714008 I35.0 Given his change and echocardio gram I'm concerned that he may have developed leaflet thrombus in his TAVR possibly related to interrupti on of anticoagul ation due to subdural hematoma. The patient's symptoms are relatively stable and I would like to have a VITOR performed to confirm function of his aortic valve. EKG: right bundle branch block 718878936 I45.10 Unchanged and chronic. Long-term current use of anticoagulant 945976918 Z79.01 Resume warfarin per patient request. 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 Benign Reassuranc e If any lesions change, or if any other new or symptomati c lesions occur, patient understand s to return to the clinic for further evaluation Discussed sun precaution s; SPF 30+ Senile hyperkeratosis 39 8997249 L82.1 Benign Reassuranc e Senile angioma 4066963 I 78.1 Benign Reassuranc e Actinic keratosis 608551 007 L57.0 Education then treated with LN; left medial forearm x1 pt tolerated well advised pt what to expect with freezing Patient ad vised about exposure to the sun 342536704 Z71.89 recommende d sun protective clothing and a mineral based sunscreen 30 SPF or higher lotion OTC daily [id number] LACIE EASLEY MD CARDIOLOG Y EAST [address] [place] [address] 12/24/2020 10:39:40 12/24/2020 11:33:20 Biventricular cardiac pacemaker present 3648975340 9105 Z95.0 Assessment was performed of the implanted device. Any needed adjustment s and setting changes were personally supervised by me and are documented in follow-up form. The device is functionin g well. The patient was instructed to continue in the device surveillan ce program appropriat e for the device. 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 I advise treadmill stress echocardio gram for evaluation . Patient encouraged to take nitroglyce rin when he has chest discomfort .Since he now has a pacemaker I feel he can take beta dalila and I would like to add ranolazine .[place] on sent to patient's pharmacy. Aortic jazmyne nosis, non-rheumatic 978653728 I35.0 Murmur is not as long as previously and hopefully that means he's had some resolution of his thrombus. I have scheduled a repeat VITOR for evaluation . EKG: right bundle branch block 258123310 I45.10 Unchanged and chronic. Long-term current use of anticoagulant 008755947 Z79.01 Resume warfarin per patient request. Renewal of prescription 123221733 Z76.0 Will reduce dose of beta dalila due to fatigue. [id number] LACIE EASLEY MD CARDIOLOG Y [address] [place] [address] 5 02/02/2021 09:37:04 02/02/2021 13:05:54 Biventricular cardiac pacemaker present 8931320083 9105 Z95.0 Assessment was performed of the implanted device. Any needed adjustment s and setting changes were personally supervised by me and are documented in follow-up form. The device is functionin g well. The patient was instructed to continue in the device surveillan ce program appropriat e for the device. 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 I have scheduled a repeat VITOR for evaluation . EKG: right bundle branch block 588398160 I45.10 Unchanged and chronic. 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 VITOR 12/30/2020: Peak velocity 2.3m/s. Peak gradient 22mmHg.ECH O 08/04/2020 : Max gradient 86mmHg, Mean gradient 55mmHg. PLAN: DOAC as above Complete r ight bundle branch block 477029542 I45.19 History of coronary artery bypass grafting 265697060 Z95.1 Coronary Artery Disease s/p remote 5v CABG in 2007 (Dr Kyle)CELY TS: Sequential BYRD-D2 & LAD, SVG to PDA branch of the LCx, sequential SVG to D1 & OM2. Coronary Angiogram 09/11/2019 (Dr Easley):L M: Bifurcatin g without significan t stenosisLA D: OccludedLC x: Patent to PLB. The marginal branch is occluded.R CA: OccludedGR AFTS: All 3 grafts are patent. [id number] YEIMY GIBSON PA-C INTERNAL MEDICINE [address] [place] [address] 06/10/2021 13:30:20 06/10/2021 15:24:34 Coronary arteriosclerosis 09948911 I25.10 He will be having further cardiac testing with Dr. Hooks. 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 VITOR 12/30/2020: Peak velocity 2.3m/s. Peak gradient 22mmHg.ECH O 08/04/2020 : Max gradient 86mmHg, Mean gradient 55mmHg. PLAN: DOAC as above Biventricu lar cardiac pacemaker present 2534891037 9105 Z95.0 Biventricu lar pacemaker (LYLES) 11/07/2019V VIR 30 PLAN: Continue with quarterly remote device checks and annual in-office interrogat ion. Complete r ight bundle branch block 142982888 I45.19 [id number] ABEBA HOOKS MD HEART STATION [address] ,[address] [place] [address] 06/22/2021 11:48:19 06/24/2021 10:50:11 [id number] OSWALD WITT [place] [address] 07/22/2021 09:41:15 07/22/2021 10:05:56 Administration of influenza vaccine 00470611 Z23 [id number] YEIMY GIBSON PA-C INTERNAL MEDICINE [place] [address] 07/31/2021 12:22:37 07/31/2021 13:57:51 Contusion of lower leg 88793442 S80.10XD The hematoma is slowly shrinking, and should continue to do so. i did warn him he will likely have more ecchymosis coming up in leg and foot as gravity pulls the blood collection downward. He will continue to monitor for any sign of infection, or new issue. He will let me know in 2 weeks how this is doing. [id number] ABEBA HOOKS MD ECHO VASCULAR LAB CLOSED [address] [facility] [place] [address] 10/23/2021 09:59:49 10/30/2021 11:10:27 Biologic cardiac valve prosthesis in situ 354770881 Z95.3 Severe Aortic stenosis s/p TAVR 9mm [place] 3 bioprosthe sis (Dr Quinonez + Manda) 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 VITOR 12/30/2020: Peak velocity 2.3m/s. Peak gradient 22mmHg.ECH O 08/04/2020 : Max gradient 86mmHg, Mean gradient 55mmHg. 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 Anticoagulant therapy 18 7601732 Z79.01 Currently on Coumadin per patient preference .INR managed by [facility] cardiology clinic. [id number] BERNICE CRISTINA DO DERMATOLO GY EAST [address] [place] [address] 10/29/2021 09:43:39 10/29/2021 10:38:53 History of malignant neoplasm of skin 534653663 Z85.828 scalp- No recurrence Solar lentiginosis 12209 2006 L81.4 Benign Reassuranc ehatsDiscu ssed sun precaution s; SPF 30+ Senile hyperkeratosis 39 [id number] L82.1 Benign Reassuranc eLN x 5 forehead- at pt request Senile angioma 2295189 I 78.1 Benign Reassuranc e Actinic keratosis 201614 007 L57.0 Education then treated with LN; right anterior scalp x1 pt tolerated well advised pt what to expect with freezing Patient ad vised about exposure to the sun 234275249 Z71.89 recommende d sun protective clothing and a mineral based sunscreen 30 SPF or higher lotion OTC daily [id number] MARTHA BURRELL MD INTERNAL MEDICINE [address] [place] [address] 10/30/2021 09:53:20 10/30/2021 11:50:56 Benign hypertension 73025779 I10 Controlled Hyperlipidemia 53593358 E78.2 lipid panel 04-27-2021 LDL *145 not at goal 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 2235168480 [address] Hooks History of polyp of colon 762937862 Z86.010 Colonoscop y 09/14/16 diverticul osis, angiodyspl juju colon; repeat 5y per Dr Hendrix=> Scheduled 11-13-2021 12:00 PM, Bk Hendrix MD History of aortic valve replacement 3279961392 [address] Hooks History of cardiac pacemaker in situ 229037829 Z95.[address] Hooks Serum crea tinine above reference range 394445527 R79.89 Increasing over the last year:08/03 0.99 mg/dL10/14 1.26 MG/DL04/27 1.30 mg/dL Anemia 645662714 D64.89 CBC 04-27-2021 Hgb *13.9 with ferritin 35 then with normal iron, B12. On AC - warfarin with easy bruising, otherwise no gross bleeding. 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 Anticoagulant therapy 18 2190295 Z79.01 Indication : valve thrombosis 07/2020 and then again in 05/2021 Currently on Coumadin (per patient preference ).INR managed by [facility] cardiology clinic. Biventricu lar cardiac pacemaker present 0351026976 9105 Z95.0 Biventricu lar pacemaker (LYLES) 11/07/2019V VIR 30 Last in office device check: 08/21/2020 PLAN: Continue with quarterly remote device checks and annual in-office interrogat ion. 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 Anticoagulant therapy 18 1416099 Z79.01 Indication : valve thrombosis 07/2020 and then again in 05/2021 Currently on Coumadin (per patient preference ).INR managed by [facility] cardiology clinic. Biventricu lar cardiac pacemaker present 1773970147 9105 Z95.0 Biventricu lar pacemaker (LYLES) placed : VVIR 3: Reprogramm ed to DDD 50, RVP only Last in office device check: 12/01/2022 LOUISE: Continue with quarterly remote device checks and annual in-office interrogat ion. 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 Anticoagulant therapy 18 6010824 Z79.01 Indication : valve thrombosis 07/2020 and then again in 05/2021 Currently on Coumadin (per patient preference ).INR managed by [facility] cardiology clinic. Biventricu lar cardiac pacemaker present 3353142835 9105 Z95.0 Biventricu lar pacemaker (LYLES) placed /: VVIR 3: Reprogramm ed to DDD 50, RVP only Last in office device check: 12/01/2022 LOUISE: Continue with quarterly remote device checks and annual in-office interrogat ion. 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 Anticoagulant therapy 18 9938938 Z79.01 Indication : valve thrombosis 07/2020 and then again in 05/2021 Currently on Coumadin (per patient preference ).INR managed by [facility] cardiology clinic. Biventricu lar cardiac pacemaker present 8741726118 9105 Z95.0 Biventricu lar pacemaker (LYLES) placed : VVIR 3: Reprogramm ed to DDD 50, RVP only Last in office device check: 12/01/2022 LOUISE: Continue with quarterly remote device checks and annual in-office interrogat ion. Body mass index 25-29 - overweight 135222565 Z68.29 [id number] BERNICE CRISTINA, DO [facility] [place] [address] [place] [address] 12/19/2023 11:04:49 12/19/2023 11:46:16 History of malignant neoplasm of skin 768532085 Z85.828 scalp- No recurrence Solar lentiginosis 91678 2006 L81.4 Benign Reassuranc erecommend ed sun protective clothing and a mineral based sunscreen 30 SPF or higher lotion OTC daily Education then treated with LN; right forehead X2per patient request pt tolerated well advised pt what to expect with freezing Senile hyperkeratosis 39 4543879 L82.1 Benign Reassuranc e Education then treated with LN; left upper arm X1at pt requestpt tolerated welladvise d pt what to expect with freezing Senile angioma 5644844 I 78.1 Benign Reassuranc e Actinic keratosis 320173 007 L57.0 Education then treated with LN; mid scalp X1, left vertex X1, right forehead X1 pt tolerated well advised pt what to expect with freezing [id number] BK HENDRIX MD SURGERY SCHEDULE [address] [place] [address] 04/18/2024 09:43:06 04/18/2024 09:45:19 [id number] ABEBA HOOKS MD CARDIOLOG Y [address] [place] [address],[address] [place] [address] 05/23/2024 10:52:52 05/23/2024 11:35:20 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 4155517167 107 I25.759 Type 2 NSTEMI 05/2021 with Troponin 2.650 History of coronary artery bypass grafting 611167932 Z95.1 Coronary Artery Disease s/p remote 5v [...] 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 Biventricu lar cardiac pacemaker present 7402842879 9105 Z95.0 Biventricu lar pacemaker (Social Median) placed : VVIR 3: Reprogramm ed to DDD 50, RVP only Last in office device check: 3P LOUISE: Continue with quarterly remote device checks and annual in-office interrogat ion. 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 Biventricu lar cardiac pacemaker present 5662526551 9105 Z95.0 Biventricu lar pacemaker (LYLES) placed : VVIR 3: Reprogramm ed to DDD 50, RVP only Last in office device check:02/08PLAN: Continue with quarterly remote device checks and annual in-office interrogat ion. Body mass index 25-29 - overweight 950173482 Z68.29 Health Concerns Section Related Observation LastModified by Organization Detai ls LastModified Time None Recorded Concern Status LastModified by Organization Details LastModified Time None Recorded Advance Directives Directive Y: Payers Insurance Date Sequence Insurance Name Policy Number Policy Chacon Covered Member ID Chacon Member ID Guarantor Name 08/05/2025 2 [employer] (MEDICARE SUPPLEMENT) PLAN N David Cormier [id number] David Cormier 08/14/2025 1 [place] David Cormier [id number] David Cormier 04/18/2024 2 [employer] (MEDICARE SUPPLEMENT) David Cormier [id number] David Cormier Notes Date Note Type Note [...] Atrial Fibrillation# Atrial flutter s/p CTI Nov [id number] score 3.Treated with amiodarone until approximately 2011; then switched to flecainide.S/P CTI ablation by Dr. Hughes 11/14/2018. # Severe Aortic stenosis s/p TAVR 10/29/2019 (29mm [place] 3 Bioprosthesis, Dr Quinonez + [facility])a. 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 His valve [...] Device: [employer]ure 3562 CORPORATE TRAINER P Implant: 11/07/2019Mode: [id number]: <1% BIV Other co-morbidities:Histo ry of a [...] significant interval change noted. ABEBA HOOKS MD [address] [place], [address], [facility] 11/17/2023 20:07:17 12/19/2023 text/html ROS as noted in the HPI Established Patient Presents for a waist up skin exam. lesion on lip patient would like evaluated. Check spots on body Denies any other new or changing lesions. Feels well today. Denies family history of malignant melanoma. BERNICE CRISTINA DO [address] [place], [address], [facility] 12/19/2023 12:33:54 05/23/2024 text/html ROS as noted [...] Atrial Fibrillation# Atrial flutter s/p CTI Nov [id number] score 3.Treated with amiodarone until approximately 2011; [...] Device: [employer]ure 3562 CORPORATE TRAINER P Implant: 11/07/2019Mode: [id number]: <1% BIV Other co-morbidities:Histo ry of a [...] review since last visit. ABEBA HOOKS MD [address] [place] [address], [address], [facility] 05/23/2024 21:20:06 02/08/2025 text/html ROS as noted [...] Atrial Fibrillation# Atrial flutter s/p CTI Nov [id number] score 3.Treated with amiodarone until approximately 2011; then switched to flecainide.S/P CTI ablation by Dr. Hughes 11/14/2018. # Severe Aortic stenosis s/p TAVR 10/29/2019 (29mm [place] 3 Bioprosthesis, Dr Quinonez + [facility])a. 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 His valve [...] Device: [employer]ure 3562 CORPORATE TRAINER P Implant: 11/07/2019Mode: [id number]: <1% BIV Other co-morbidities:Histo ry of a [...] Device: [employer] MP 3562 CORPORATE TRAINER P . 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 Implant: November 07 2019 Mode: DDD 50 Pacin% AP 31% RVP Events: None. No permanent programming changes were made to his device. ABEBA HOOKS [place] [facility] [place], [address], [facility] 02/08/2025 12:33:31
--- OUTSIDE RECORDS SUMMARY | 2025-08-15 12:02 | XMS_ITS | Encounter Summary ---
Author Organization [employer] ([place], [place], [place], [place], [place]) Address [address] [place] [address] Care Team Providers Care Fire Lookout Name Role Phone Unavailable Primary Care Provider Unavailabl e Encounter Details Date Type Department Care Team (Late st Contact Info) Description 06/02/2021 Transcribed Document [facility] [place] [address] [place] [address] ProviderPrasanth MD [address] [place] [address] Social History Tobacco Use Types Packs/Day Years Used Date Smoking Tobacco: Never Assessed Sex and Gender Information Value Date Recorded Sex Assigned at Not on file Legal Sex Male 6:49 PM CDT Gender Identity Not on file Sexual Orientation Not on file documented as of this encounter Miscellaneous Notes * Cerner Conversion Note - Historical ProviderMD - 06/02/2021 2:49 PM CDT GREEN TIRE INSPECTOR Attempt to Treat Entered On: 06/02/2021 14:50 EDT Performed On: 06/02/2021 14:49 EDT by ADRIÁN LUO SLP Attempt to Treat Unable to Treat Due To : Patient Unavailable Inability to Treat Comment : Attempted to see pt for dysphagia evaluation, however he was off the floor. GREEN TIRE INSPECTOR will f/u Tuesday. ADRIÁN LUO SLP - 06/02/2021 14:49 EDT Electronically signed by Nikita [facility] Conversion Doctor Of Podiatric Medicine Cerner at 01/26/2023 8:57 PM CDT documented in this encounter Plan of Treatment Not on file documented as of this encounter Visit Diagnoses Not on filedocumented in this encounter
--- OUTSIDE RECORDS SUMMARY | 2025-08-15 12:02 | XMS_ITS | Encounter Summary ---
Author Organization [employer] ([place], [place], [place], [place], [place]) Address [address] [place] [address] Care Team Providers Care Natural Resource Economist Name Role Phone Unavailable Primary Care Provider Unavailabl e Encounter Details Date Type Department Care Team (Late st Contact Info) Description 07/22/2020 Transcribed Document [facility] [place] [address] [place] [address] ProviderPrasanth MD [address] [place] [address] Social History Tobacco Use Types [...] Sanchez MD - 07/22/2020 12:13 PM CDT [facility] [place] [address] ALEXANDRESHRIA Enamorado HORACIO :1935 Visit Time:07/22/2020 Your Visit Summary [...] From Your Care Team no driving today. pick up and delivery driver prescription and start Coumadin according to directions. [facility] to monitor Coumadin labs and dose Follow-Up Appointments Follow Up with LACIE ALVA When 08/21/2020 11:15 AM EST Comments Appointment has been made Where: [address] [place] [address]- [facility] (1) Medications What How Much When Instructions Next Dose warfarin (warfarin 5 mg oral tablet) 1 Tablet(s) Oral Every Day Refills: 6 dose to be adjusted Pickup at [facility] aspirin 81 Milligram(s) Every Day atorvastatin (atorvastatin 20 mg oral tablet) 1 Tablet(s) Oral Tuesday lisinopril 20 Milligram(s) Oral Every Day multivitamin 1 Tablet(s) Oral Every Day Pharmacy Information [facility]: [address] [address] [phone] Start Coumadin tonight Take your medications faithfully. [...] other medicines or supplements? Many prescription and gucf-sba-nzfhxxa medicines can interfere with warfarin. Talk with your health care provider or your pharmacist before starting or stopping any new medicines. This includes lmbd-oyb-trzmvhl vitamins, dietary supplements, herbal medicines, and pain medicines. Your warfarin dosage may need to be adjusted. ??? Some common tzbu-xsf-jjmnqpd medicines that may increase the risk of [...] that you work with a diet and risk control specialist (dietitian). ??? Vitamin K decreases the effect [...] cooked. ??? Collards, raw or cooked. ??? Algerian chard, raw or cooked. ??? Mustard greens, raw or cooked. ??? Turnip greens, raw or cooked. ??? Parsley, raw. ??? Broccoli, cooked. ??? Noodles, eggs, and spinach, enriched. ??? [place] sprouts, raw or cooked. ??? Beet greens, [...] diet. ??? You start or stop any oeea-wfr-brxxuvu medicine, prescription medicine, or dietary supplement. ??? [...] 09/26/2006 Document Revised: 05/09/2018 Document Reviewed: 12/22/2016 [employer] Patient Education ?? 2020 [employer] Moderate Conscious Sedation, Adult, Care After [...] you are awake and alert. ??? Take xljv-xhz-emlopbz and prescription medicines only as told by [...] Reviewed: 01/15/2017 Elsevier Patient Education ?? 2020 [employer] Transesophageal Echocardiogram Transesophageal echocardiogram (VITOR) is [...] including vitamins, herbs, eye drops, creams, and nsog-xyt-fnxsnnn medicines. ??? Any problems you or family [...] diabetes medicines or blood thinners. ? Taking lntj-xuy-imoasyz medicines, vitamins, herbs, and supplements. ? Taking [...] 12/17/2003 Document Revised: 03/07/2018 Document Reviewed: 12/23/2017 [employer] Patient Education ?? 2020 [employer]. Emergency Awareness and Preventative Care STROKE is [...] Assistance with quitting is available by contacting 4-053-QFPD-NOW. This is a free resource providing counseling, [...] was given the opportunity to ask questions. Patient/Drafter Marine Name: Patient/Drafter Marine Signature: Relationship to Patient: Clinician/Hospital Drafter Marine Signature: Date: documented in this encounter Plan of Treatment Not on file documented as of this encounter Visit Diagnoses Not on filedocumented in this encounter
--- OUTSIDE RECORDS SUMMARY | 2025-08-15 12:02 | XMS_ITS | Encounter Summary ---
Author Organization [employer] ([place], [place], [place], [place], [place]) Address [address] [place] [address] Care Team Providers Care Elevator Dispatcher Name Role Phone Unavailable Primary Care Provider Unavailabl e Encounter Details Date Type Department Care Team (Late st Contact Info) Description 11/08/2019 Transcribed Document [facility] [place] [address] [place] [address] ProviderPrasanth MD [address] [place], [...] - Historical ProviderMD - 11/08/2019 1:34 PM MEDICAL TECHNOLOGIST CHEMISTRY Discharge Summary, PT Entered On: 11/08/2019 13:36 [...] DRAKE PRICE, PT - 11/08/2019 13:34 EST Indoor Sports Centre Manager Goals Mobility/Bed Mobility LTG PT Grid Goal #1 Goal #2 Activity : Supine to sit Sit to stand Assist : Independent, complete Independent, modified Equipment : Rail, bed Belt, gait, Walker, front wheel Date to Meet : 11/19/2019 EST 11/19/2019 EST Goal Status : Not met Not met DRAKE PRICE, PT - 11/08/2019 13:34 EST DRAKE PRICE PT - 11/08/2019 13:34 EST Ambulation LTG Grid Goal #1 Device : Walker, front wheel Distance : 375 feet Assist : Supervision or set-up Date to Meet : 11/19/2019 EST Goal Status : Not met DRAKE PRICE, PT - 11/08/2019 13:34 EST Electronically signed by [facility] Conversion Environmental Science Technician Cerner at 01/26/2023 8:49 PM CDT documented in this encounter Plan of Treatment Not on file documented as of this encounter Visit Diagnoses Not on filedocumented in this encounter
--- OUTSIDE RECORDS SUMMARY | 2025-08-15 12:02 | XMS_ITS | Encounter Summary ---
Author Organization [employer] ([place], [place], [place], [place], [place]) Address [address] [place] [address] Care Team Providers Care Professor Of Engineering Name Role Phone Unavailable Primary Care Provider Unavailabl e Encounter Details Date Type Department Care Team (Late st Contact Info) Description 12/03/2019 Transcribed Document [facility] [place] Family Medicine [address] [place] [address] ProviderPrasanth MD [address] [place] [address] Social History Tobacco Use Types Packs/Day Years Used Date Smoking Tobacco: Never Assessed Sex and Gender Information Value Date Recorded Sex Assigned at Not on file Legal Sex Male 6:49 PM CDT Gender Identity Not on file Sexual Orientation Not on file documented as of this encounter Miscellaneous Notes * Cerner Conversion Note - Historical ProviderMD - 12/03/2019 9:48 AM INTEGRATION DIRECTOR Event Note Entered On: 12/03/2019 9:49 EST [...] 12/03/2019 9:50 EST Electronically signed by Nikita [facility] Conversion Paint Laboratory Technician Cerner at 01/26/2023 9:12 PM CDT documented in this encounter Plan of Treatment Not on file documented as of this encounter Visit Diagnoses Not on filedocumented in this encounter
--- OUTSIDE RECORDS SUMMARY | 2025-08-15 12:02 | XMS_ITS | Encounter Summary ---
Author Organization [employer] ([place], [place], [place], [place], [place]) Address [address] [place] [address] Care Team Providers Care International Bank Manager Name Role Phone Unavailable Primary Care Provider Unavailabl e Encounter Details Date Type Department Care Team (Late st Contact Info) Description 06/02/2021 Transcribed Document [facility] [place] Family Medicine [address] [place] [address] ProviderPrasanth MD [address] [place] [address] Social History Tobacco Use [...] Historical ProviderMD - 06/02/2021 9:50 AM CDT [place] Suicide Severity Rating Scale (C-SSRS) Entered On: 06/02/2021 11:32 EDT Performed On: 06/02/2021 11:32 EDT by SULAIMAN FAULKNER RN [place] Suicide Severity Rating Scale (C-SSRS) CSSRS Past [...]
--- OUTSIDE RECORDS SUMMARY | 2025-08-15 12:03 | XMS_ITS | Patient Health Record ---
[facility] Address [address] [facility] [address] [place] [id number] Care Team Providers Care Supervisor Partial Denture Department Name Role Phone Alexei Almodovar Primary Care Provider ALEXEI ALMODOVAR Unavailable Unavailable Romana Thompson Unavailable [phone] Allergies Allergen (clinical drug ingredient) Drug/Non Drug [...] 01:20:38 PM Interpretation:sensitive Performing Lab: Notes/Report: sensitive PT/INR (in house) Reviewed date:12/14/2024 10:29:53 AM [...] - 38 plat 140 100 - 400 Reason For Referral No Information Medications Medication [...] once a day; Duration: 30 day(s) Active Immunizations Vaccine Route Administration Date Status Comme nts xFluzone High Dose-private (65yr&older) Unknown 07/26/2016 Administered xFluzone High Dose-private (65yr&older) Unknown 07/31/2018 Administered xFluzone High Dose-private (65yr&older) Unknown 08/03/2019 Administered xFluzone (6mos and older)-trivalent Unknown 09/04/2013 Administered Tetanus Tdap-Adacel (over 7yrs) Unknown 11/04/2019 Administered Shingrix Unknown 05/08/2020 Administered Shingrix Unknown 08/11/2020 Administered Prevnar (PCV20) IM Intramuscular 08/01/2025 Administered Prevnar (PCV13) Unknown 07/26/2016 Administered Fluzone High Dose (65yr and older) Unknown 07/02/2020 Administered Fluzone High Dose (65yr and older) Unknown 07/22/2021 Administered Fluzone High Dose (65yr and older) IM Intramuscular 2022 Administered Fluzone High Dose (65yr and older) Unknown 2022 Administered Fluzone High Dose (65yr and older) IM Intramuscular 11/14/2024 Administered Fluzone High Dose (65yr and older) IM Intramuscular 08/01/2025 Administered COVID 19 Moderna Unknown 11/19/2020 Administered COVID 19 Moderna Unknown 12/17/2020 Administered COVID 19 Moderna Unknown 08/05/2021 Administered Problems Problem Type SNOMED Code ICD Code Onset Dates Problem Status W/U Status Risk Notes Problem Benign prostatic hyperplasia (686047473) BPH (benign prostatic hyperplasia) (N40.0) Active confirmed Problem Atherosclerotic hear t disease of [place] coronary artery without angina pectoris (341652680977601) Coronary artery disease involving [place] coronary artery of [place] heart without angina pectoris (I25.10) Active confirmed Problem Iron deficiency anemia (31572746) Iron deficiency anemia, unspecified iron deficiency anemia type (D50.9) Active confirmed Problem Pure hypercholesterolemia (496442487) Pure hypercholesterolemia (E78.00) Active confirmed Problem Permanent cardiac pacemaker (309439331005214) Presence of permanent cardiac pacemaker (Z95.0) Active confirmed Problem History of heart valve repair with prosthesis (394456472302674) 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 Problem Primary hypertension (75249451) Primary hypertension (I10) Active confirmed Problem Chronic kidney disease stage 3A (disorder) (492705025) Stage 3a chronic kidney disease (CKD) (N18.31) Active confirmed Vital Signs Heart Rate 62 /min 08/01/2025 Blood pressure diastolic 68 mm Hg 08/01/2025 Height 69 in 08/01/2025 Blood pressure systolic 120 mm Hg 08/01/2025 Weight 196.4 lbs 08/01/2025 BMI 29 kg/m2 08/01/2025 Encounters Encounter Location Date Provider Diagnosis [facility] [address] [facility] [address] [place], [place] [id number] 08/23/2024 Alexei [place] Acute UTI N39.0 and Intermittent diarrhea R19.7 [facility] [address] [facility] [address] [place], [place] [id number] 11/14/2024 Alexei [place] Encounter for immunization Z23 [facility] [address] [facility] [address] [place], [place] [id number] 12/13/2024 R Newton Thompson Aortic valve replace d Z95.2 ; Bleeding R58 and Supratherapeutic INR R79.1 [facility] [address] [facility] [address] [place], [place] [id number] 08/01/2025 R Newton Thompson Adult general medica l examination Z00.00 ; Coronary artery disease involving [place] coronary artery of [place] heart without angina pectoris I25.10 ; Aortic valve replaced Z95.2 ; BPH (benign prostatic hyperplasia) N40.0 ; Primary hypertension I10 ; Presence of permanent cardiac pacemaker Z95.0 ; Stage 3a chronic kidney disease (CKD) N18.31 ; BMI 29.0-29.9,adult Z68.29 and Encounter for immunization Z23 [facility] [address] [facility] [address] [place], [place] [id number] 04/30/2025 Romana Thompson Assessments Encounter Date Diagnosis (ICD Code) Assessment Notes Treatment Notes Treatment Clinical Notes Section Notes 08/23/2024 Acute UTI (ICD-10 - N39.0) 08/23/2024 Intermittent diarrhea (ICD-10 - R19.7) 11/14/2024 Encounter for immunization (ICD-10 - Z23) 12/13/2024 Bleeding (ICD-10 - R58) 12/13/2024 Aortic valve replaced (ICD-10 - Z95.2) 08/01/2025 Coronary artery disease involving [place] coronary artery of [place] heart without angina pectoris (ICD-10 - I25.10) Continue follow-up with cardiology as scheduled. 08/01/2025 Adult general medical examination (ICD-10 - Z00.00) Patient instructed to return to office Annually for Annual Wellness Visits to include annual screenings of Pain assessment, Functional Ability assessment, Cognitive Ability assessment, Fall Risk assessment, Depression screening and Bladder control screening. 08/01/2025 Aortic valve replaced (ICD-10 - Z95.2) 12/13/2024 Supratherapeutic INR (ICD-10 - R79.1) hold coumadin for 2 days then resume same dose. Keep f/u with [facility] Clinic in 10 days 08/01/2025 BPH (benign prostatic hyperplasia) (ICD-10 - N40.0) 08/01/2025 Primary hypertension (ICD-10 - I10) 08/01/2025 Presence of permanent cardiac pacemaker (ICD-10 - Z95.0) 08/01/2025 Stage 3a chronic kidney disease (CKD) (ICD-10 - N18.31) 08/01/2025 BMI 29.0-29.9,adult (ICD-10 - Z68.29) 08/01/2025 Encounter for immunization (ICD-10 - Z23) Plan Of Treatment No Information Insurance Providers Payer Name Payer Address Payer Phone Subscriber Number Group Number Insured Name Patient Relationship to Insured Coverage Start Date Coverage End Date [place] [address] [address] [place] [address] [id number] ALEXANDRESHIRA Enamorado Self - patient is the insured [facility] [employer] [address] [place] [id number] SHIRA GARZA Self - patient is the insured Medical (General) History Medical History History ICD Code Coronary Artery Disease Hypertension Hyperlipidemia Aortic Stenosis, [facility] Surgical History Surgery Date(Month/Year) Quintuple Bypass 2008 Hernia Repair Tissue Aortic Valve Replacement 2019 Wrist Hospitalization History Reason Date(Month/Year)
--- OUTSIDE RECORDS SUMMARY | 2025-08-15 12:03 | XMS_ITS | Encounter Summary ---
Author Organization [employer] ([place], [place], [place], [place]) Address [address] [place] [address] Care Team Providers Care Bobbin Doffer Name Role Phone Unavailable Primary Care Provider Unavailabl e Encounter Details Date Type Department Care Team (Late st Contact Info) Description 08/04/2020 Transcribed Document [facility] [place] [address] [place] [address] ProviderPrasanth MD [address] [place] [address] Social History Tobacco Use Types [...] Event : Arrives per stretcher from [facility] awake and alert, skin w/d, no c/o. Denies any CP. SR heart monitor. WALTER POWELL RN - 08/04/2020 13:26 EDT documented in this encounter Plan of Treatment Not on file documented as of this encounter Visit Diagnoses Not on filedocumented in this encounter
--- OUTSIDE RECORDS SUMMARY | 2025-08-15 12:03 | XMS_ITS | Encounter Summary ---
Author Organization [employer] ([place], [place], [place], [place], [place]) Address [address] [place] [address] Care Team Providers Care Saddle Tree Stitcher Name Role Phone Unavailable Primary Care Provider Unavailabl e Encounter Details Date Type Department Care Team (Late st Contact Info) Description 08/04/2020 Transcribed Document [facility] [place] Medicine [address] [place] [address] ProviderPrasanth MD [address] [place] [address] Social History Tobacco Use Types [...] Tish SOLIS on 4 IC. Transferred to [facility] via wheelchair with all belongngs. BRANDON ROE, WILL - 08/04/2020 19:59 EDT documented in this encounter Plan of Treatment Not on file documented as of this encounter Visit Diagnoses Not on filedocumented in this encounter
--- OUTSIDE RECORDS SUMMARY | 2025-08-15 12:03 | XMS_ITS | Encounter Summary ---
Author Organization [employer] ([place], [place], [place], [place], [place]) Address [address] [place] [address] Care Team Providers Care Shag Truck Driver Name Role Phone Unavailable Primary Care Provider Unavailabl e Encounter Details Date Type Department Care Team (Late st Contact Info) Description 06/02/2021 Transcribed Document [facility] [facility] [place] [address] ProviderPrasanth MD [address] [place] [address] Social History Tobacco Use [...] Communication Barrier : None Primary Language : Indian Any Spiritual/Cultural Needs or Requests : No [...] Rhythm : Regular Nail Bed Color : [place] Chest Pain : No Capillary Refill, Left [...]
--- OUTSIDE RECORDS SUMMARY | 2025-08-15 12:03 | XMS_ITS | Encounter Summary ---
Author Organization [employer] ([place], [place], [place], [place]) Address [address] [place] [address] Care Team Providers Care Cartoon Animator Name Role Phone Unavailable Primary Care Provider Unavailabl e Encounter Details Date Type Department Care Team (Late st Contact Info) Description 08/04/2020 Transcribed Document [facility] [place] Family Medicine [address] [place] [address] ProviderPrasanth MD [address] [place] [address] Social History Tobacco Use Types [...] EMS Legal Guardian : No Support Person/Patient Molasses And Caramel Operator : Yes Support Person/Pt Rep Name : Rosa Elena Cormier- spouse Support Person/Pt Rep Contact Information : [phone] home Want Family/Rep/Phys Notified of Admit : No Emergency Contact #1 : Rosa Elena Emergency Contact #1 Emergency Contact #1 Relationship : spouse Emergency Contact #2 : n/a Emergency Contact #2 Phone Number : n/a Emergency Contact #2 Relationship : n/a Chief Complaint : Tele hold Information Obtained From : Patient Primary Language : Tajik Preferred Communication Mode : Verbal Communication Barrier : None Nursing Home Admissions Director Needed : No Tish Calvillo Rn - [...] Scale Risk Level : 25-45 Medium Risk Kirvin Fall Interventions : Adequate lighting Barriers to [...] Source : Stated Height Entry Format : Stephens Height, Feet : 5 ft(Converted to: 152 cm, 60 Inch) Height, Inches : 9 Inch(Converted to: 0 ft 9 Inch, 22.86 cm) Clinical Height : 175.26 cm Weight Source : Standing scale Weight Entry Format : Stephens Clinical Dosing Weight : 88.64 kg Weight, Pounds : 195 lb Body Surface Area (BSA) : 2.05 m2 Body Mass Index : 28.9 kg/m2 (HI) [place] Body Weight : 70 kg Tish Calvillo [...] Tish Calvillo Rn - 08/04/2020 20:32 EDT [place] Suicide Severity Rating Scale (C-SSRS) CSSRS Past [...] Sleep Apnea Risk Level Score : 3 Tsih Calvillo Rn - 08/04/2020 20:32 EDT Valuables [...]
--- OUTSIDE RECORDS SUMMARY | 2025-08-15 12:03 | XMS_ITS | Encounter Summary ---
Author Organization [employer] ([place], [place], [place], [place], [place]) Address [address] [place] [address] Care Team Providers Care Technical Project Manager Name Role Phone Unavailable Primary Care Provider Unavailcarla e Encounter Details Date Type Department Care Team (Late st Contact Info) Description 06/02/2021 Transcribed Document [facility] [place] [address] [place] [address] ProviderPrasanth MD [address] [place] [address] Social History Tobacco Use Types [...] 85 yo male who was admitted to [facility] on 06/02 for chest pain, elevated troponin, NSTEMI, RLE weakness, and dysarthria. PMHx: aortic valve stenosis s/p replacement, Afib, CAD s/p CABG, YAVAPAI-APACHE, HLD, HTN, pacemaker, and SDH. CTH: no [...] 13:07 EDT Neurological/Sensory Overall Sensory Response : Intact BESS VINCENT, OTR/L - 06/03/2021 13:07 EDT Cognition Assessment, [...] BESS VINCENT OTR/L - 06/03/2021 13:07 EDT Electronically signed by Nikita [facility] Conversion Movie Theater Manager Cerner at 01/26/2023 9:10 PM CDT documented in this encounter Plan of Treatment Not on file documented as of this encounter Visit Diagnoses Not on filedocumented in this encounter
[2025-08-15 12:29] LABS: INR 2.23 (0.9-1.1); Prothrombin Time 23.3 seconds (10.1-12.5)
== END 2025-08-15 23:59 | disposition home or self-care (01) ==
LOC: LAB 11:56
PROVIDERS: PCP Family Medicine; Visit Provider Internal Medicine
DX: Z79.01 Long term (current) use of anticoagulants (principal)
CPT/HCPCS: 36415; 85610

== ENCOUNTER 2025-09-12 09:48 | Outpatient (CLI) | payer MEDICARE, SELFPAY ==
--- OUTSIDE RECORDS SUMMARY | 2025-09-12 10:02 | XMS_ITS | Encounter Summary ---
Author Organization [employer] ([place], [place], [place], [place]) Address [address] [place] [address] Care Team Providers Care Communications Specialist Name Role Phone Unavailable Primary Care Provider Unavailabl e Encounter Details Date Type Department Care Team (Late st Contact Info) Description 11/05/2019 Transcribed Document [facility] [place] [address] [place] [address] ProviderPrasanth MD [address] [place] [address] Social History Tobacco Use Types Packs/Day Years Used Date Smoking Tobacco: Never Assessed Sex and Gender Information Value Date Recorded Sex Assigned at Not on file Legal Sex Male 6:49 PM CDT Gender Identity Not on file Sexual Orientation Not on file documented as of this encounter Miscellaneous Notes * [employer] Conversion Note - Historical ProviderMD - 11/05/2019 2:00 AM RESIDENT PHYSICIAN IN RADIOLOGY Email Campaign Specialist Details Entered On: 11/05/2019 0:16 EST Performed [...] EST Electronically signed by Carla Shelton Conversion Telephone Coin Box Collector Richard at 01/26/2023 8:59 PM CDT documented in this encounter Plan of Treatment Not on file documented as of this encounter Visit Diagnoses Not on filedocumented in this encounter
--- OUTSIDE RECORDS SUMMARY | 2025-09-12 10:02 | XMS_ITS | Encounter Summary ---
Author Organization [employer] ([place], [place], [place], [place]) Address [address] [place] [address] Care Team Providers Care Supervisor Pipeline Name Role Phone Unavailable Primary Care Provider Unavailabl e Encounter Details Date Type Department Care Team (Late st Contact Info) Description 11/05/2019 Transcribed Document [facility] [place] Medicine [address] [place] [address] ProviderPrasanth MD [address] [place] [address] Social History Tobacco Use Types Packs/Day Years Used Date Smoking Tobacco: Never Assessed Sex and Gender Information Value Date Recorded Sex Assigned at Not on file Legal Sex Male 6:49 PM CDT Gender Identity Not on file Sexual Orientation Not on file documented as of this encounter Miscellaneous Notes * [employer] Conversion Note - Historical ProviderMD - 11/05/2019 3:20 AM OPERATIONS SUPPORT COORDINATOR Height and Weight, Routine Entered On: 11/05/2019 3:21 EST Performed On: 11/05/2019 3:20 EST by Sal Hurt, Golf Sales ManagerHealth Unit Coord Height and Weight, Routine Routine Weight Source : Bed scale Routine Weight Entry Format : Metric Routine Weight, Kilograms : 93.1 kg(Converted to: 205 lb 4 oz) Routine Weight Calculation : 93.1 kg Height Source : Stated Height Entry Format : [place] Height, Feet : 5 ft Height, Inches : 9 Inch Clinical Height : 175.26 cm Body Surface Area (BSA), Routine : 2.09 m2 Body Mass Index (BMI), Routine : 30.31 kg/m2 Sal Hurt, Golf Sales Manager-Health Unit Coord - 11/05/2019 3:20 EST Electronically signed by Nikita [facility] Conversion Director Cloud Transformation Cerner at 01/26/2023 8:58 PM CDT documented in this encounter Plan of Treatment Not on file documented as of this encounter Visit Diagnoses Not on filedocumented in this encounter
--- OUTSIDE RECORDS SUMMARY | 2025-09-12 10:02 | XMS_ITS | Encounter Summary ---
Author Organization [employer] ([place], [place], [place]) Address [address] [place] [address] Care Team Providers Care Jewelry Model Maker Name Role Phone Unavailable Primary Care Provider Unavailabl e Encounter Details Date Type Department Care Team (Late st Contact Info) Description 11/05/2019 Transcribed Document [facility] Neurology - [address] [facility] [address] [place] [address] [place] [address] [place] [address]. [address] [place] [address] Social History Tobacco Use Types [...] Lymph # 1.32 x10(3)/uL 11/04/2019 20:08 EST [place] % 9.6 % (High) 11/04/2019 20:08 EST [place] # 0.61 K/uL 11/04/2019 20:08 EST Eos [...]
--- OUTSIDE RECORDS SUMMARY | 2025-09-12 10:02 | XMS_ITS | Encounter Summary ---
Author Organization [employer] ([place], [place]) Address [address] [place] [address] Care Team Providers Care Pig Breeder Name Role Phone Unavailable Primary Care Provider Unavailabl e Encounter Details Date Type Department Care Team (Late st Contact Info) Description 11/05/2019 Transcribed Document [facility] [place] [address] [place] [address] ProviderPrasanth MD [address] [place] [address] Social History Tobacco Use Types Packs/Day Years Used Date Smoking Tobacco: Never Assessed Sex and Gender Information Value Date Recorded Sex Assigned at Not on file Legal Sex Male 6:49 PM CDT Gender Identity Not on file Sexual Orientation Not on file documented as of this encounter Miscellaneous Notes * [employer]ner Conversion Note - Prasanth Sanchez MD - 11/05/2019 8:53 AM MITERING MACHINE OPERATOR Patient: SHIRA GARZA HORACIO Age: 84 Years [...] 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 The patient was transported to the emergency [...] 10/29/2019 obtain echocardiogram CAD s/p 5V CABG [facility] 09/2019 revealed patent grafts continue nitrate, [...]
--- OUTSIDE RECORDS SUMMARY | 2025-09-12 10:02 | XMS_ITS | Encounter Summary ---
Author Organization [employer] ([place], [place]) Address [address] [place] [address] Care Team Providers Care Household Appliances Salesperson Name Role Phone Unavailable Primary Care Provider Unavailabl e Encounter Details Date Type Department Care Team (Late st Contact Info) Description 09/25/2019 Transcribed Document [facility] [place] [address] [place] [address] ProviderPrasanth MD [address] [place] [address] Social History Tobacco Use Types Packs/Day Years Used Date Smoking Tobacco: Never Assessed Sex and Gender Information Value Date Recorded Sex Assigned at Not on file Legal Sex Male 6:49 PM CDT Gender Identity Not on file Sexual Orientation Not on file documented as of this encounter Miscellaneous Notes * [employer]ner Conversion Note - Historical MD Daniel - 09/25/2019 10:53 PM FUNDRAISING DIRECTOR Event Note Entered On: 09/25/2019 22:54 EST Performed On: 09/25/2019 22:53 EST by Phyllis Singletary RN Event Note Description of Event : Transferred patient to [facility] after giving report by phone to Alphonse SOLIS. Phyllis Singletary RN - 09/25/2019 22:53 EST documented in this encounter Plan of Treatment Not on file documented as of this encounter Visit Diagnoses Not on filedocumented in this encounter
--- OUTSIDE RECORDS SUMMARY | 2025-09-12 10:02 | XMS_ITS | Encounter Summary ---
Author Organization [employer] ([place], [place], [place], [place], [place]) Address [address] [place] [address] Care Team Providers Care Farm Equipment Mechanic Name Role Phone Unavailable Primary Care Provider Unavailabl e Encounter Details Date Type Department Care Team (Late st Contact Info) Description 11/05/2019 Transcribed Document [facility] [place] Family Medicine [address] [place] [address] ProviderPrasanth MD [address] [place] [address] Social History Tobacco Use Types Packs/Day Years Used Date Smoking Tobacco: Never Assessed Sex and Gender Information Value Date Recorded Sex Assigned at Not on file Legal Sex Male 6:49 PM CDT Gender Identity Not on file Sexual Orientation Not on file documented as of this encounter Miscellaneous Notes * [employer] Conversion Note - Historical ProviderMD - 11/05/2019 8:00 AM ACTUARIAL SCIENCE PROFESSOR Consult Phone Call Documentation Entered On: 11/05/2019 8:22 EST Performed On: 11/05/2019 8:00 EST by Iris Banerjee, [facility] Unit Coord Phone Call for Consults Consult Phone Call/Page Attempt : First call Consult Reason : bradycardia and 3rd degree heart block Physician Requesting Consult : RASHAUN FERRARI MD-INT Physician Requested for Consult : WINNIE AYALA MD-CAR Provider Service Notified Name : Cardiology Consult, Additional Information : called to Iris Marie, [facility] Unit Coord - 11/05/2019 8:22 EST documented in this encounter Plan of Treatment Not on file documented as of this encounter Visit Diagnoses Not on filedocumented in this encounter
--- OUTSIDE RECORDS SUMMARY | 2025-09-12 10:02 | XMS_ITS | Encounter Summary ---
Author Organization [employer] ([place], [place], [place], [place]) Address [address] [place] [address] Care Team Providers Care Airline Mechanic Name Role Phone Unavailable Primary Care Provider Unavailabl e Encounter Details Date Type Department Care Team (Late st Contact Info) Description 11/05/2019 Transcribed Document [facility] [place] [address] [place] [address] ProviderPrasanth MD [address] [place] [address] Social History Tobacco Use Types Packs/Day Years Used Date Smoking Tobacco: Never Assessed Sex and Gender Information Value Date Recorded Sex Assigned at Not on file Legal Sex Male 6:49 PM CDT Gender Identity Not on file Sexual Orientation Not on file documented as of this encounter Miscellaneous Notes * [employer]ner Conversion Note - Prasanth ProviderMD - 11/05/2019 3:27 PM PHYSICAL MEDICINE TEACHER Treatment Intervention, PT Entered On: 11/07/2019 15:45 [...] CJ WHEELER PTA - 11/07/2019 15:42 EST Skilled Nursing Goals Mobility/Bed Mobility LTG PT Grid Goal [...] treatment if pacemake placment completed CJ WHEELER, SPINNING FRAME CLEANER - 11/07/2019 15:[address] [facility] PT Charges SPINNING FRAME CLEANER PT Therap. Exercise 15 min-SPINNING FRAME CLEANER : 1 CJ WHEELER SPINNING FRAME CLEANER - 11/07/2019 15:42 EST Electronically signed by Nikita [facility] Conversion Specialist Physicians Cerner at 01/26/2023 9:10 PM CDT documented in this encounter Plan of Treatment Not on file documented as of this encounter Visit Diagnoses Not on filedocumented in this encounter
--- OUTSIDE RECORDS SUMMARY | 2025-09-12 10:02 | XMS_ITS | Encounter Summary ---
Author Organization [employer] ([place], [place], [place], [place], [place]) Address [address] [place] [address] Care Team Providers Care Tobacco Acreage Measurer Name Role Phone Unavailable Primary Care Provider Unavailabl e Encounter Details Date Type Department Care Team (Late st Contact Info) Description 11/05/2019 Transcribed Document [facility] [place] Family Medicine [address] [place] [address] ProviderPrasanth MD [address] [place] [address] Social History Tobacco Use Types Packs/Day Years Used Date Smoking Tobacco: Never Assessed Sex and Gender Information Value Date Recorded Sex Assigned at Not on file Legal Sex Male 6:49 PM CDT Gender Identity Not on file Sexual Orientation Not on file documented as of this encounter Miscellaneous Notes * Cerner Conversion Note - Prasanth ProviderMD - 11/05/2019 5:54 PM BARREL ROLLER On Going Discharge Planning Entered On: 11/05/2019 17:54 EST Performed On: 11/05/2019 17:54 EST by ROSANA CALLEJAS RN-Distribution Sales RepresentativeMachinery Mechanic Progress Note Discharge Arrangements : Patient Post-Acute Information Patient Name: SHIRA GARZA HORACIO Gender: Male : [birth year] Age: 84 Years No Post-Acute Placement(s) Listed No Post-Acute Service(s) Listed No Curaspan Referral(s) Listed Discharge Plan Comment : home w/ ROSANA CALLEJAS, RN-Distribution Sales Representative - 11/05/2019 17:54 EST Narrative Progress Note [...] and assist w/needs as approp. ROSANA CALLEJAS, RN-Distribution Sales Representative - 11/05/2019 17:54 EST Electronically signed by Nikita [facility] Conversion Map And Chart Mounter Cerner at 01/26/2023 8:50 PM CDT documented in this encounter Plan of Treatment Not on file documented as of this encounter Visit Diagnoses Not on filedocumented in this encounter
--- OUTSIDE RECORDS SUMMARY | 2025-09-12 10:02 | XMS_ITS | Encounter Summary ---
Author Organization [employer] ([place], [place], [place], [place], [place]) Address [address] [place] [address] Care Team Providers Care Patternmaker Name Role Phone Unavailable Primary Care Provider Unavailabl e Encounter Details Date Type Department Care Team (Late st Contact Info) Description 11/05/[address] [facility] [place] Family Medicine [address] [place] [address] ProviderPrasanth MD [address] [place] [address] Social History Tobacco Use Types Packs/Day Years Used Date Smoking Tobacco: Never Assessed Sex and Gender Information Value Date Recorded Sex Assigned at Not on file Legal Sex Male 6:49 PM CDT Gender Identity Not on file Sexual Orientation Not on file documented as of this encounter Miscellaneous Notes * Cerner Conversion Note - Prasanth ProviderMD - 11/05/2019 5:51 PM INFORMATION SECURITY Initial Discharge Planning Entered On: 11/05/2019 17:54 EST Performed On: 11/05/2019 17:51 EST by ROSANA CALLEJAS RN-Smearer Initial Assessment I Previously Documented Living Environment [...] Listed? : Yes Medical Durable Power of Alteration Workroom Supervisor Name : Legal Guardian : No ROSANA CALLEJAS RN-Smearer - 11/05/2019 17:51 EST Initial Assessment II Sensory and Motor Deficits : None Deficit Description : glasses Current Home Treatments and Equipment : None Services and Community Resources Addl Comments : Workout @ local Facility Gym 3x/wk Does the Patient have a Floor to SNF Benefit? : Yes ROSANA CALLEJAS RN-Smearer - 11/05/2019 17:51 EST Discharge Needs I Anticipated Discharge To, CM : Home independently Current Home Treatment/Equipment : Current Home Treatment/Equipment No qualifying data available. Documentation Status Complete : Yes ROSANA CALLEJAS RN-Smearer - 11/05/2019 17:51 EST Discharge Needs II Professional Skilled Services : Professional Skilled Services No qualifying data available. Needs Assistance with Transportation : No ROSANA CALLEJAS RN-Smearer - 11/05/2019 17:51 EST Narrative Note Narrative [...] and assist w/needs as approp. ROSANA CALLEJAS RN-Smearer - 11/05/2019 17:51 EST documented in this encounter Plan of Treatment Not on file documented as of this encounter Visit Diagnoses Not on filedocumented in this encounter
--- OUTSIDE RECORDS SUMMARY | 2025-09-12 10:02 | XMS_ITS | Encounter Summary ---
Author Organization [employer] ([place], [place], [place], [place], [place]) Address [address] [place] [address] Care Team Providers Care Hearing And Speech Assistant Name Role Phone Unavailable Primary Care Provider Unavailabl e Encounter Details Date Type Department Care Team (Late st Contact Info) Description 11/05/2019 Transcribed Document [facility] [place] Family Medicine [address] [place] [address] ProviderPrasanth MD [address] [place] [address] Social History Tobacco Use Types Packs/Day Years Used Date Smoking Tobacco: Never Assessed Sex and Gender Information Value Date Recorded Sex Assigned at Not on file Legal Sex Male 6:49 PM CDT Gender Identity Not on file Sexual Orientation Not on file documented as of this encounter Miscellaneous Notes * Cerner Conversion Note - Historical ProviderMD - 11/05/2019 5:00 PM SEWING MACHINE OPERATOR Chart Check - Review Order Profile Entered On: 11/05/2019 17:41 EST Performed On: 11/05/2019 17:00 EST by MARIBELL MIMS RN Chart Check Powerplans Initiated/Discontinued as Appropriate : Yes MARIBELL MIMS RN - 11/05/2019 17:41 EST Electronically signed by Nikita [facility] Conversion [place] Fishing Boat Crewman Cerner at 01/26/2023 8:55 PM CDT documented in this encounter Plan of Treatment Not on file documented as of this encounter Visit Diagnoses Not on filedocumented in this encounter
--- OUTSIDE RECORDS SUMMARY | 2025-09-12 10:02 | XMS_ITS | Encounter Summary ---
Author Organization [employer] ([place], [place], [place], [place], [place]) Address [address] [place] [address] Care Team Providers Care Vine Fruit Farming Supervisor Name Role Phone Unavailable Primary Care Provider Unavailabl e Encounter Details Date Type Department Care Team (Late st Contact Info) Description 11/05/2019 Transcribed Document [facility] [place] Family Medicine [address] [place] [address] ProviderPrasanth MD [address] [place] [address] Social History Tobacco Use Types Packs/Day Years Used Date Smoking Tobacco: Never Assessed Sex and Gender Information Value Date Recorded Sex Assigned at Not on file Legal Sex Male 6:49 PM CDT Gender Identity Not on file Sexual Orientation Not on file documented as of this encounter Miscellaneous Notes * Cerner Conversion Note - Historical ProviderMD - 11/05/2019 9:53 AM INSURANCE HEALTHCARE CONSULTANT Evaluation, Physical Therapy Entered On: 11/05/2019 15:26 [...] ROM : WF Right LE Strength : [facility] LLE Active ROM : [facility] Left LE Strength : [facility] PB BROWNLEE, PT - 11/05/2019 15:11 EST [...] PB BROWNLEE, PT - 11/05/2019 15:11 EST Structural Steel Worker Goals Mobility/Bed Mobility LTG PT Grid Goal [...] PB BROWNLEE, PT - 11/05/2019 15:[address] PT Charges PT Eval Moderate Complexity : 1 PB BROWNLEE, PT - 11/05/2019 15:11 EST documented in this encounter Plan of Treatment Not on file documented as of this encounter Visit Diagnoses Not on filedocumented in this encounter
--- OUTSIDE RECORDS SUMMARY | 2025-09-12 10:02 | XMS_ITS | Encounter Summary ---
Author Organization [employer] ([place], [place], [place], [place], [place]) Address [address] [place] [address] Care Team Providers Care Molder Pipe Covering Name Role Phone Unavailable Primary Care Provider Unavailabl e Encounter Details Date Type Department Care Team (Late st Contact Info) Description 11/04/2019 Transcribed Document [facility] [place] [address] [place] [address] ProviderPrasanth MD [address] [place] [address] Social History Tobacco Use Types Packs/Day Years Used Date Smoking Tobacco: Never Assessed Sex and Gender Information Value Date Recorded Sex Assigned at Not on file Legal Sex Male 6:49 PM CDT Gender Identity Not on file Sexual Orientation Not on file documented as of this encounter Miscellaneous Notes * Cerner Conversion Note - Historical ProviderMD - 11/04/2019 11:15 PM DATABASE SPECIALIST ED Discharge Entered On: 11/04/2019 23:36 [...] 11/04/2019 23:34 EST Electronically signed by Nikita [facility] Conversion Network Pricing Consultant Cerner at 01/26/2023 9:09 PM CDT documented in this encounter Plan of Treatment Not on file documented as of this encounter Visit Diagnoses Not on filedocumented in this encounter
--- OUTSIDE RECORDS SUMMARY | 2025-09-12 10:02 | XMS_ITS | Encounter Summary ---
Author Organization [email or web address] ([place], [place], [place], [place], [place]) Address [address] [place] [address] Care Team Providers Care Carton Packaging Machine Operator Name Role Phone Unavailable Primary Care Provider Unavailabl e Encounter Details Date Type Department Care Team (Late st Contact Info) Description 11/05/2019 Transcribed Document [facility] Neurology - [address] [facility] [address] [place] [address] [place] [address] [place] [address] [address] [place] [address] Social History Tobacco Use Types [...]
--- OUTSIDE RECORDS SUMMARY | 2025-09-12 10:02 | XMS_ITS | Encounter Summary ---
Author Organization [employer] ([place], [place], [place], [place], [place]) Address [address] [place] [address] Care Team Providers Care Energy Conservation Specialist Name Role Phone Unavailable Primary Care Provider Unavailabl e Encounter Details Date Type Department Care Team (Late st Contact Info) Description 11/04/2019 Transcribed Document [facility] Neurology - [address] [facility] [address] [place] [address] [place] [address] [place] [address]. [facility] [address] [place] [address] Social History Tobacco Use Types [...] acute subdural hematoma in the right posterior scientologist area, just above the petrous bone. It [...] family was present when I saw him. /[id number] Titus Rasheed Jr, MD RDO/AQ / RDO / MODL /[id number] documented in this encounter Plan of Treatment Not on file documented as of this encounter Visit Diagnoses Not on filedocumented in this encounter
--- OUTSIDE RECORDS SUMMARY | 2025-09-12 10:02 | XMS_ITS | Encounter Summary ---
Author Organization [employer] ([place], [place], [place], [place], [place]) Address [address] [place] [address] Care Team Providers Care Checkroom Chief Name Role Phone Unavailable Primary Care Provider Unavailcarla e Encounter Details Date Type Department Care Team (Late st Contact Info) Description 11/05/2019 Transcribed Document [facility] [place] [address] [place] [address] ProviderPrasanth MD [address] [place] [address] Social History Tobacco Use Types Packs/Day Years Used Date Smoking Tobacco: Never Assessed Sex and Gender Information Value Date Recorded Sex Assigned at Not on file Legal Sex Male 6:49 PM CDT Gender Identity Not on file Sexual Orientation Not on file documented as of this encounter Miscellaneous Notes * Cerner Conversion Note - Prasanth ProviderMD - 11/05/2019 9:53 AM TRIMMER MEAT Evaluation, Occupational Therapy Entered On: 11/06/2019 14:25 [...] : 11/04/2019 21:19 Co-treated by, OT : material assistant (SIGN MAINTENANCE) Assisted by, OT : echocardiograph technician/aide Personal Devices : Personal Devices Glasses Assistive Devices : Assistive Devices No Devices Recorded General Information Comment, OT : 84 yo female who was admitted to [facility] on 11/04 for cardiac arrhythmias/heart [...] ROM : WF Left UE Strength : [facility] Upper Extremity Strength Impaired : No Right UE Strength : WF Left UE Strength : [facility] Upper Extremity Comment : BUE ROM and MMT [facility] BESS VINCENT, OTR/L - 11/06/2019 14:12 [...] BESS VINCENT OTR/L - 11/06/2019 14:12 EST Senior Care Goals, OT Grooming LTG Grid Goal #1 [...] BESS VINCENT OTR/Chio - 11/06/2019 14:12 EST Paint OT Charges OT Eval Moderate Complexity : 1 BESS VINCENT OTR/L - 11/06/2019 14:12 EST documented in this encounter Plan of Treatment Not on file documented as of this encounter Visit Diagnoses Not on filedocumented in this encounter
--- OUTSIDE RECORDS SUMMARY | 2025-09-12 10:02 | XMS_ITS | Encounter Summary ---
Author Organization [employer] ([place], [place], [place], [place], [place]) Address [address] [place] [address] Care Team Providers Care Hotel Dining Room Cashier Name Role Phone Unavailable Primary Care Provider Unavailabl e Encounter Details Date Type Department Care Team (Late st Contact Info) Description 11/05/2019 Transcribed Document [facility] [place] Family Medicine [address] [place] [address] ProviderPrasanth MD [address] [place] [address] Social History Tobacco Use Types Packs/Day Years Used Date Smoking Tobacco: Never Assessed Sex and Gender Information Value Date Recorded Sex Assigned at Not on file Legal Sex Male 6:49 PM CDT Gender Identity Not on file Sexual Orientation Not on file documented as of this encounter Miscellaneous Notes * Cerner Conversion Note - Historical ProviderMD - 11/05/2019 5:00 AM HUMAN SERVICE WORKER Chart Check - Review Order Profile Entered On: 11/05/2019 4:51 EST Performed On: 11/05/2019 5:00 EST by DESMOND CRUZ RN Chart Check Powerplans Initiated/Discontinued as Appropriate : Yes All Active Orders Reviewed : Yes DESOMND CRUZ RN - 11/05/2019 4:51 EST Electronically signed by Nikita [facility] Conversion Sales Representative Printing Supplies Cerner at 01/26/2023 9:05 PM CDT documented in this encounter Plan of Treatment Not on file documented as of this encounter Visit Diagnoses Not on filedocumented in this encounter
--- OUTSIDE RECORDS SUMMARY | 2025-09-12 10:03 | XMS_ITS | Clinical Summary ---
Author Organization [employer] ([place], [place], [place], [place], [place]) Address [address] [place] [address] Care Team Providers Care Microstrategy Reports Developer Name Role Phone Unavailable Primary Care [...]
--- OUTSIDE RECORDS SUMMARY | 2025-09-12 10:03 | XMS_ITS | Encounter Summary ---
Author Organization [employer] ([place], [place], [place], [place], [place]) Address [address] [place] [address] Care Team Providers Care Credit Reference Clerk Name Role Phone Unavailable Primary Care Provider Unavailabl e Encounter Details Date Type Department Care Team (Late st Contact Info) Description 10/29/2019 Transcribed Document [facility] [place] Family Medicine [address] [place] [address] ProviderPrasanth MD [address] [place] [address] Social History Tobacco Use Types Packs/Day Years Used Date Smoking Tobacco: Never Assessed Sex and Gender Information Value Date Recorded Sex Assigned at Not on file Legal Sex Male 6:49 PM CDT Gender Identity Not on file Sexual Orientation Not on file documented as of this encounter Miscellaneous Notes * Cerner Conversion Note - Prasanth ProviderMD - 10/29/2019 8:11 AM MACHINE TOOL REBUILDER [facility] Main OR IntraOp Summary Primary Physician: MARK HAIRSTON MD-CAT Finalized Date/Time: 10/31/19 12:09:24 Pt. Name: SHIRA GARZA HORACIO /Sex: 1935 Male Med Rec #: [id number] Physician: MARK HAIRSTON MD-CAT Financial #: [id number] Pt. Type: I Room/Bed: [facility]/1 Admit/Disch: 10/29/19 07:03:00 - 10/30/19 15:14:00 Institution: [facility] IntraOp Case Attendance Entry 1 Entry 2 [...] -ANS Angiography Tech Role Performed Surgeon/Proceduralist, Anesthesiologist Wire Fence Builder Third Time In 10/29/19 07:16:00 10/29/19 07:16:00 [...] Cardiovascular RT Pref Card Builder Role Performed Wire Fence Builder Scrub, Third Color Shop Helper, First Time In 10/29/19 07:16:00 10/29/19 07:16:00 [...] 11 Case Attendee JOAQUÍN ZEE, OTHER, ATTENDEE Theatre Director Role Performed Theatre Director Vendor Time In 10/29/19 07:16:00 10/29/19 07:16:00 Time Out 10/29/19 09:42:00 10/29/19 09:42:00 Procedure Aortic Valve Aortic Valve Replacement Transfemoral Replacement Transfemoral Other Attendee HOLAMARCELLO MANCIA Superficial Wound Closed By: Last Modified By: Solange Sutton KYOne Grimes, Jennifer, [facility] Pref Card Builder Pref Card Builder 10/29/19 09:43:00 10/29/19 09:43:00 [facility] IntraOp Case Attendance Audit 10/29/19 09:43:00 Welt Stitch Cleaner: MAY Modifier: MAY 1 <+> Time Out [...] Procedure Aortic Valve Replacement Transfemoral 10/29/19 08:06:54 Welt Stitch Cleaner: MAY Modifier: MYA <+> 1 Procedure 2 <*> Procedure Aortic [...] 11 <*> Procedure Aortic Valve Replacement Transfemoral [facility] IntraOp Case Times Entry 1 Patient In Room Time 10/29/19 07:16:00 Out Room Time 10/29/19 09:42:00 Anesthesia Start Time 10/29/19 07:16:00 Stop Time 10/29/19 09:42:00 Surgery / Procedure Times Start Time 10/29/19 08:11:00 Stop Time 10/29/19 09:17:00 Last Modified By: Solange Sutton KYOne Pref Card Builder 10/29/19 09:42:57 [facility] IntraOp Case Times Audit 10/29/19 09:42:57 Welt Stitch Cleaner: GRIMESJE Modifier: GRIMESJE <+> 1 Out Room Time <+> 1 Stop Time 10/29/19 09:23:10 Welt Stitch Cleaner: GRIMESJE Modifier: GRIMESJE <+> 1 Stop Time 10/29/19 08:11:22 Welt Stitch Cleaner: GRIMESJE Modifier: GRIMESJE <+> 1 Start Time [facility] IntraOp Communication Entry 1 Entry 2 Entry [...] Sutton KYOne Pref Card Buildvipul 10/29/19 08:59:19 [facility] IntraOp Communication Audit 10/29/19 08:59:19 Welt Stitch Cleaner: MAY Modifier: MAY <+> 3 Date and Time <+> 4 Date and Time [facility] IntraOp Departure from OR Entry 1 Integumentary Assessment Integumentary WDL Assessment WDL Transfer/Handoff Transfer to PACU Phase I Handoff Method Bedside/Face to face Post-op Transport Bed (including Via specialty) Patient Transport DOM DE LA TORRE, Accompanied by DILLAN, JOAQUÍN ZEE, Theatre Director, Solange Sutton KYOne Pref Card Aida Transfer/Handoff ICU BED Comments Last Modified By: Solange Sutton KYOne Pref Card Buildvipul 10/29/19 08:05:30 [facility] IntraOp Dressing and Packing Entry 1 Type Dressing Location OPERATIVE SITE Wound Dressing Item Skin Closure Glue, Occlusive dressing Last Modified By: Solange Sutton KYOne Pref Card Buildvipul 10/29/19 08:05:33 [facility] IntraOp Fire Risk Assessment Entry 1 Fire [...] Sutton KYOne Pref Card Buildvipul 10/29/19 08:05:40 [facility] IntraOp General Case Facilities Coordinator 1 Case Information OR OR 20 [facility] Case Level 2 Room Verified Yes Wound Class I - Clean Specialty SN Cardio Thoracic Anesthesia Type MAC ASA Class 4 Diagnosis Preop Diagnosis AORTIC VALVE DISEASE Postop Same As Preop Yes Postop Diagnosis AORTIC VALVE DISEASE Last Modified By: Solange Sutton KYOne Pref Card Builder 10/29/19 08:05:54 [facility] IntraOp Implant Log Entry 1 Entry 2 Entry 3 Type Implant (Synthetic) Implant (Synthetic) Tissue Implant (Biologic) Implant Log Implant Type Other Other Tissue Implant Type Heart valve Implant CLOSURE SYS PERCLOSE DEVICE MYNX CANDY CATCHER 6F/ 7F KT NAVID 3 W/COMM DEL Identification PROGL [id number] SYS [id number] Description Implant Quantity 3 1 1 Implant Site RIGHT GROIN LEFT GROIN AORTIC VALVE Implant Identification Model Number Implant [id number] Identification Serial Number Implant [id number] Identification Lot Number Implant Dixon Lab:Vasc Dev Access Closure Mancia Lifesci Identification Hot Roller Name: Implant [id number] Identification Catalog Number Implant Size Implant Has an Yes Yes Yes Expiration Date Implant Expiration 07/09/21 09/08/21 01/08/21 Date Wasted Radioactive Material Time Implanted Tissue Implant Continue for Tissue Implant Documentation Tissue Identification Number Graft Prep Per Yes Hot Roller Instructions: Tissue Preparation N/A Method: Reconstitution Solution: Reconstitution Solution Lot Number Reconstitution Solution Expiration Date: Thawing Solution Thawing Solution Lot Number Thawing Solution Expiration Date Preparation NACL AND HEPARIN/SALINE Materials, Other Preparation [id number] Materials, Other Lot Number Preparation 05/10/20 Materials, Other Expiration Date Tissue OTHER, ATTENDEE Prepared/Processed By Hot Roller Yes Paperwork Completed Implant Type Comment Last Modified By: Solange Sutton KYOne Grimes, Jennifer, KYOne Grimes, Jennifer, KYOne Pref Card Builder Pref Card Builder Pref Card Builder 10/29/19 08:21:05 10/29/19 08:21:05 10/29/19 13:19:53 [facility] IntraOp Implant Log Audit 10/29/19 13:19:53 Welt Stitch Cleaner: MAY Modifier: MAY 3 <*> Implant Identification Description KT NAVID 3 W/COMM DEL SYS [id number] <*> Tissue Implant Type Tissue 10/29/19 08:34:38 Welt Stitch Cleaner: MAY Modifier: MAY 3 <*> Implant Identification Description KT NAVID 3 W/COMM DEL SYS [id number] <+> Preparation Materials, Other Lot Number 3 <+> Preparation Materials, Other Expiration Date 10/29/19 08:30:15 Welt Stitch Cleaner: MAY Modifier: MAY <+> 3 Implant Identification Description <+> 3 Implant Identification Serial Number <+> 3 Implant Identification Hot Roller Name: <+> 3 Implant Expiration Date <+> 3 Implant Site <+> 3 Implant Quantity <+> 3 Implant Identification Catalog Number <+> 3 Tissue Implant Type <+> 3 Graft Prep Per Hot Roller Instructions: <+> 3 Tissue Preparation Method: <+> 3 Preparation Materials, Other <+> 3 Tissue Prepared/Processed By <+> 3 Hot Roller Paperwork Completed <+> 3 Implant Has an Expiration Date <+> 3 Type [facility] IntraOp Intraoperative Assessment Entry 1 Handoff Method [...] Sutton KYOne Pref Card Builder 10/29/19 08:06:01 [facility] IntraOp Intraoperative Equipment Entry 1 Equipment Intraop Monitoring Blood Pressure Arm, right upper Location Pulse Oximeter Hand, left Probe Site Antiembolic Devices Scopes Photo/Video Documentation Last Modified By: Solange Sutton KYOne Pref Card Builder 10/29/19 08:06:05 [facility] IntraOp Medication Admin Entry 1 Entry 2 Entry 3 Medication/Irrigant lidocaine 1% 30ml vial KENNY VISIPAQUE 320MG 150 KENNY NACL 0.9PCT [facility] - [id number] 200ML --[id number] 1000U .5L --[id number] Combo Med List Time Administered Route of [...] Builder 10/29/19 08:06:19 10/29/19 08:06:19 10/29/19 08:06:19 [facility] IntraOp Patient Positioning Entry 1 Procedure Aortic [...] Sutton KYOne Pref Card Builder 10/29/19 08:06:32 [facility] IntraOp Sign In Entry 1 Patient, Site, [...] Sutton KYOne Pref Card Builder 10/29/19 08:06:34 [facility] IntraOp Sign Out Entry 1 RN Confirmation [...] Sutton KYOne Pref Card Builder 10/29/19 09:43:07 [facility] IntraOp Sign Out Audit 10/29/19 09:43:07 Welt Stitch Cleaner: MAY Modifier: MAY <+> 1 RN Sign Out Signature Date/Time [facility] IntraOp Skin Prep Entry 1 Procedure Aortic Valve Replacement Transfemoral Prescribed Yes Pre-Surgical Prep Completed Prep Area CHIN TO KNEES Intraop Prep Integumentary WDL Assessment WDL Prep Agents Chloraprep Prep by Solange Sutton KYOne Pref Card Builder Hair Removal Last Modified By: Solange Sutton KYOne Pref Card Builder 10/29/19 08:06:43 [facility] IntraOp Surgical Procedures Entry 1 Procedure Aortic Valve Replacement Transfemoral Additional TRANSFEMORAL AORTIC Procedure VALVE REPLACEMENT, PUMP Description STAND BY Primary Procedure Yes Primary Surgeon MARK HAIRSTON MD-CAT Start 10/29/19 08:11:00 Stop 10/29/19 09:17:00 Anesthesia Type General Specialty SN Cardio Thoracic Wound Class I - Clean Last Modified By: Solange Sutton KYOne Pref Card Builder 10/29/19 09:43:10 [facility] IntraOp Surgical Procedures Audit 10/29/19 09:43:10 Welt Stitch Cleaner: MAY Modifier: MAY <+> 1 Stop 10/29/19 09:02:34 Welt Stitch Cleaner: MAY Modifier: MAY 1 <*> Procedure Aortic Valve Replacement Transfemoral 1 <+> Start 1 <*> Additional Procedure Description (AORTIC VALVULOPLASTY, VITOR, POSSIBLE TRANSCATHETER AORTIC VALVE REPLACEMENT, POSSIBLE OPEN AORTIC VALVE REPLACEMENT) [facility] IntraOp Temp Regulation Devices Entry 1 Temp Regulation Temperature Warm blankets Regulation Device Temperature Full body Regulation Site Temperature Solange Sutton KYOne Regulation Device Pref Card Builder Applied by Last Modified By: Solange Sutton KYOne Pref Card Builder 10/29/19 08:06:59 [facility] IntraOP Time Out Entry 1 Procedure to [...] Sutton KYOne Pref Card Builder 10/29/19 08:11:18 [facility] IntraOP Time Out Audit 10/29/19 08:11:18 Welt Stitch Cleaner: MAY Modifier: MAY 1 <+> Beta Bety Administered 1 <+> Time Out Pause Time 1 <*> Procedure to be Performed Aortic Valve Replacement Transfemoral 1 <+> Time Out Comment [facility] IntraOp X-Ray and Images Entry 1 X-Ray/Imaging Type Fluoroscopy Fluoroscopy Type Fixed Site CHEST Home Therapy Clinician Name Lynn, Brenna, Angiography Tech Protective Devices [...] TIFFANIE Correct Billing Electronically signed by Nikita [facility] Conversion Artificial Flowers Dyer Cerner at 01/26/2023 9:05 PM CDT documented in this encounter Plan of Treatment Not on file documented as of this encounter Visit Diagnoses Not on filedocumented in this encounter
--- OUTSIDE RECORDS SUMMARY | 2025-09-12 10:03 | XMS_ITS | Encounter Summary ---
Author Organization [employer] ([place], [place], [place], [place], [place]) Address [address] [place] [address] Care Team Providers Care Telephone Instrument Supervisor Name Role Phone Unavailable Primary Care Provider Unavailabl e Encounter Details Date Type Department Care Team (Late st Contact Info) Description 10/30/[address] [facility] [place] Family Medicine [address] [place] [address] ProviderPrasanth MD [address] [place] [address] Social History Tobacco Use Types Packs/Day Years Used Date Smoking Tobacco: Never Assessed Sex and Gender Information Value Date Recorded Sex Assigned at Not on file Legal Sex Male 6:49 PM CDT Gender Identity Not on file Sexual Orientation Not on file documented as of this encounter Miscellaneous Notes * Cerner Conversion Note - Prasanth Sanchez MD - 10/30/2019 12:20 PM BLOCK GREASER Patient Education Materials Follows: Groin Site Care [...] Document Reviewed: 10/29/2011 ExitCare? Patient Information ?2013 [employer]. documented in this encounter Plan of Treatment Not on file documented as of this encounter Visit Diagnoses Not on filedocumented in this encounter
--- OUTSIDE RECORDS SUMMARY | 2025-09-12 10:03 | XMS_ITS | Encounter Summary ---
Author Organization [employer] ([place], [place], [place], [place], [place]) Address [address] [place] [address] Care Team Providers Care Pc Support Specialist Name Role Phone Unavailable Primary Care Provider Unavailabl e Encounter Details Date Type Department Care Team (Late st Contact Info) Description 06/02/2021 Transcribed Document [facility] [place] Family Medicine [facility] [place] [address] ProviderPrasanth MD [address] [place] [address] Social History Tobacco Use Types [...] continuous telemetry monitoring - No plans for [facility] at this time - Continue medical management [...] Pending Electronically signed by Carla Shelton Conversion Administrative Services Manager Cerner at 01/26/2023 8:49 PM CDT documented in this encounter Plan of Treatment Not on file documented as of this encounter Visit Diagnoses Not on filedocumented in this encounter
--- OUTSIDE RECORDS SUMMARY | 2025-09-12 10:03 | XMS_ITS | Encounter Summary ---
Author Organization [employer] ([place], [place], [place], [place], [place]) Address [address] [place] [address] Care Team Providers Care Lithograph Printer Name Role Phone Unavailable Primary Care Provider Unavailabl e Encounter Details Date Type Department Care Team (Late st Contact Info) Description 10/30/2019 Transcribed Document [facility] Family Medicine [address] [place] [address] ProviderPrasanth MD [address], [place] [...] - Prasanth ProviderMD - 10/30/2019 3:13 PM GED INSTRUCTOR Nursing Discharge Summary Entered On: 10/30/2019 15:14 EST Performed On: 10/30/2019 15:13 EST by Jason Thompson, jewel hole driller Documentation Discharge Date/Time : 10/30/2019 15:13 EST [...] 10/30/2019 15:13 EST Electronically signed by Nikita [facility] Conversion Ground School Instructor Cerner at 01/26/2023 8:54 PM CDT documented in this encounter Plan of Treatment Not on file documented as of this encounter Visit Diagnoses Not on filedocumented in this encounter
--- OUTSIDE RECORDS SUMMARY | 2025-09-12 10:03 | XMS_ITS | Encounter Summary ---
Author Organization [employer] ([place], [place], [place], [place], [place]) Address [address] [place] [address] Care Team Providers Care Automation Test Engineer Name Role Phone Unavailable Primary Care Provider Unavailabl e Encounter Details Date Type Department Care Team (Late st Contact Info) Description 10/30/2019 Transcribed Document [facility] [place] Family Medicine [address] [place] [address] ProviderPrasanth MD [address] [place] [address] Social History Tobacco Use Types Packs/Day Years Used Date Smoking Tobacco: Never Assessed Sex and Gender Information Value Date Recorded Sex Assigned at Not on file Legal Sex Male 6:49 PM CDT Gender Identity Not on file Sexual Orientation Not on file documented as of this encounter Miscellaneous Notes * Cerner Conversion Note - Prasanth ProviderMD - 10/30/2019 3:11 PM ASSEMBLER FITTER Final Discharge Planning Entered On: 10/30/2019 15:12 [...] 10/30/2019 15:11 EST Electronically signed by Nikita, [facility] Conversion Surgical Elastic Knitter Cerner at 01/26/2023 8:58 PM CDT documented in this encounter Plan of Treatment Not on file documented as of this encounter Visit Diagnoses Not on filedocumented in this encounter
--- OUTSIDE RECORDS SUMMARY | 2025-09-12 10:03 | XMS_ITS | Encounter Summary ---
Author Organization [employer] ([place], [place], [place], [place], [place]) Address [address] [place] [address] Care Team Providers Care Director Geothermal Operations Name Role Phone Unavailable Primary Care Provider Unavailabl e Encounter Details Date Type Department Care Team (Late st Contact Info) Description 10/30/2019 Transcribed Document [facility] [place] Family Medicine [address] [place] [address] ProviderPrasanth MD [address] [place] [address] Social History Tobacco Use Types Packs/Day Years Used Date Smoking Tobacco: Never Assessed Sex and Gender Information Value Date Recorded Sex Assigned at Not on file Legal Sex Male 6:49 PM CDT Gender Identity Not on file Sexual Orientation Not on file documented as of this encounter Miscellaneous Notes * Cerner Conversion Note - Prasanth ProviderMD - 10/30/2019 11:30 AM PAIN MANAGEMENT NURSE Initial Discharge Planning Entered On: 10/30/2019 11:32 EST Performed On: 10/30/2019 11:30 EST by JAIMEE CARTAGENA Policeman-Library Supervisor Initial Assessment I Previously Documented Living Environment : No qualifying data available. JAIMEE CARTAGENA Policeman-Library Supervisor - 10/30/2019 11:32 EST Living Situation : [...] Yes Legal Guardian : No JAIMEE CARTAGENA Policeman-Library Supervisor - 10/30/2019 11:30 EST Initial Assessment II Sensory and Motor Deficits : None Current Home Treatments and Equipment : None JAIMEE CARTAGENA Policeman-Library Supervisor - 10/30/2019 11:30 EST Discharge Needs I Anticipated Discharge To, CM : Home independently Current Home Treatment/Equipment : Current Home Treatment/Equipment No qualifying data available. Post Acute/Home Treatments : None Documentation Status Complete : Yes JAIMEE CARTAGENA Policeman-Library Supervisor - 10/30/2019 11:30 EST Discharge Needs II Professional Skilled Services : Professional Skilled Services No qualifying data available. Needs Assistance with Transportation : No Discharge Options Discussed with Patient : Discharge transportation, DME, Home Health JAIMEE CARTAGENA Policeman-Library Supervisor - 10/30/2019 11:30 EST Narrative Note Narrative Note : Patient is a low readmission risk of 31. Patient denied ever having HH or SNF services. Patient reported that he is independent with ADLs. He reported that he does not anticipate having any discharge needs. CM will continue to follow for discharge needs. JAIMEE CARTAGENA Policeman-Library Supervisor - 10/30/2019 11:32 EST documented in this encounter Plan of Treatment Not on file documented as of this encounter Visit Diagnoses Not on filedocumented in this encounter
--- OUTSIDE RECORDS SUMMARY | 2025-09-12 10:03 | XMS_ITS | Encounter Summary ---
Author Organization [employer] ([place], [place], [place], [place], [place]) Address [address] [place] [address] Care Team Providers Care Manufacturing Design Engineer Name Role Phone Unavailable Primary Care Provider Unavailabl e Encounter Details Date Type Department Care Team (Late st Contact Info) Description 10/29/2019 Transcribed Document [facility] [place] [address] [place] [address] ProviderPrasanth MD [address] [place] [address] Social History Tobacco Use Types Packs/Day Years Used Date Smoking Tobacco: Never Assessed Sex and Gender Information Value Date Recorded Sex Assigned at Not on file Legal Sex Male 6:49 PM CDT Gender Identity Not on file Sexual Orientation Not on file documented as of this encounter Miscellaneous Notes * Cerner Conversion Note - Historical ProviderMD - 10/29/2019 9:12 AM MACHINE HOOP MAKER Education-(VTE) / (DVT) Entered On: 10/30/2019 4:52 EST Performed On: 10/29/2019 9:12 EST by Rimma Blackmon RN Teaching/Learning Assessment Barriers To Learning : None evident Individuals Taught : Patient, Family member Learning Style Preferences Patient : None Rimma Blackmon, RN - 10/30/2019 4:52 EST Electronically signed by Nikita [facility] Conversion Clinical Trial Educator Cerner at 01/26/2023 9:07 PM CDT documented in this encounter Plan of Treatment Not on file documented as of this encounter Visit Diagnoses Not on filedocumented in this encounter
--- OUTSIDE RECORDS SUMMARY | 2025-09-12 10:03 | XMS_ITS | Encounter Summary ---
Author Organization [employer] ([place], [place], [place], [place], [place]) Address [address] [place] [address] Care Team Providers Care Retail Buyer Name Role Phone Unavailable Primary Care Provider Unavailabl e Encounter Details Date Type Department Care Team (Late st Contact Info) Description 06/02/2021 Transcribed Document [facility] [place] [address] ProviderPrasanth MD [address] [place] [address] Social History Tobacco Use Types [...] : 2 - Emergent Tracking Group : [facility] ED Marisela Mendenhall RN - 06/02/2021 10:01 [...] EDT) Problems(Active) Aortic valve stenosis (SNOMED CT :896634035 ) Name of Problem: Aortic valve stenosis ; Recorder: JIMI MCNEIL RN; Confirmation: Confirmed ; Classification: Medical ; Code: 305011525 ; Contributor System: PowerChart ; Last Updated: 08/05/2020 10:36 EDT ; Life Cycle Status: Active ; Vocabulary: SNOMED CT At risk for sleep apnea (IMO :92574727 ) Name of Problem: At risk for sleep apnea ; Recorder: SYSTEM, SYSTEM; Confirmation: Confirmed ; Classification: Medical ; Code: 82762443 ; Last Updated: 11/14/2018 7:19 EST ; Life Cycle Date: 11/14/2018 ; Life Cycle Status: Active ; Vocabulary: IMO At risk for sleep apnea (IMO :17638960 ) Name of Problem: At risk for sleep apnea ; Recorder: SYSTEM, SYSTEM; Confirmation: Confirmed ; Classification: Medical ; Code: 37710436 ; Last Updated: 08/04/2020 12:17 EDT ; Life Cycle Date: 08/04/2020 ; Life Cycle Status: Active ; Vocabulary: IMO Atrial fibrillation (SNOMED CT :41311371 ) Name of Problem: Atrial fibrillation ; Recorder: JIMI MCNEIL RN; Confirmation: Confirmed ; Classification: Medical ; Code: 96700203 ; Contributor System: LOC&ALLChart ; Last Updated: 08/05/2020 10:36 EDT ; Life Cycle Status: Active ; Vocabulary: SNOMED CT Atrial flutter (SNOMED CT :3003564 ) Name of Problem: Atrial flutter ; Recorder: RADHA TERRAZAS RN; Confirmation: Confirmed ; Classification: Patient Stated ; Code: 4175113 ; Contributor System: PowerChart ; Last Updated: 11/14/2018 7:26 EST ; Life Cycle Date: 11/14/2018 ; Life Cycle Status: Active ; Vocabulary: SNOMED CT Benign neoplastic disease (SNOMED CT :26031124 ) Name of Problem: Benign neoplastic disease ; Recorder: AV KING RN; Confirmation: Confirmed ; Classification: Patient Stated ; Code: 41389990 ; Contributor System: PowerChart ; Last Updated: 09/11/2019 7:15 EST ; Life Cycle Date: 09/11/2019 ; Life Cycle Status: Active ; Vocabulary: SNOMED CT CAD - Coronary artery disease (SNOMED CT :1545624117 ) Name of Problem: CAD - Coronary artery disease ; Recorder: JIMI MCNEIL RN; Confirmation: Confirmed ; Classification: Medical ; Code: 2722698828 ; Contributor System: PowerChart ; Last Updated: 08/05/2020 10:36 EDT ; Life Cycle Status: Active ; Vocabulary: SNOMED CT CAD (coronary artery disease) (SNOMED CT :81209122 ) Name of Problem: CAD (coronary artery disease) ; Recorder: RADHA TERRAZAS RN; Confirmation: Confirmed ; Classification: Patient Stated ; Code: 13154173 ; Contributor System: PowerChart ; Last Updated: 11/14/2018 7:27 EST ; Life Cycle Date: 11/14/2018 ; Life Cycle Status: Active ; Vocabulary: SNOMED CT Chest pain (SNOMED CT :77551646 ) Name of Problem: Chest pain ; Recorder: SALLY BARNETT RN; Confirmation: Confirmed ; Classification: Patient Stated ; Code: 40773398 ; Contributor System: PowerChart ; Last Updated: 07/22/2020 9:12 EDT ; Life Cycle Date: 07/22/2020 ; Life Cycle Status: Active ; Vocabulary: SNOMED CT H/O aortic valve replacement (SNOMED CT :5555888814 ) Name of Problem: H/O aortic valve replacement ; Recorder: WALTER POWELL RN; Confirmation: Confirmed ; Classification: Patient Stated ; Code: 0273082189 ; Contributor System: PowerChart ; Last Updated: 08/04/2020 12:06 EDT ; Life Cycle Date: 08/04/2020 ; Life Cycle Status: Active ; Vocabulary: SNOMED CT Hard of hearing (SNOMED CT :289703989 ) Name of Problem: Hard of hearing ; Recorder: WALTER POWELL RN; Confirmation: Confirmed ; Classification: Patient Stated ; Code: 725383381 ; Contributor System: PowerChart ; Last Updated: 08/04/2020 11:53 EDT ; Life Cycle Date: 08/04/2020 ; Life Cycle Status: Active ; Vocabulary: SNOMED CT HLD - Hyperlipidemia (SNOMED CT :831059719 ) Name of Problem: HLD - Hyperlipidemia ; Recorder: JIMI MCNEIL RN; Confirmation: Confirmed ; Classification: Medical ; Code: 503989351 ; Contributor System: PowerChart ; Last Updated: 08/05/2020 10:36 EDT ; Life Cycle Status: Active ; Vocabulary: SNOMED CT HTN - Hypertension (SNOMED CT :0609984944 ) Name of Problem: HTN - Hypertension ; Recorder: JIMI MCNEIL RN; Confirmation: Confirmed ; Classification: Medical ; Code: 4959537913 ; Contributor System: PowerChart ; Last Updated: 08/05/2020 10:36 EDT ; Life Cycle Status: Active ; Vocabulary: SNOMED CT Hyperlipidemia (SNOMED CT :55118245 ) Name of Problem: Hyperlipidemia ; Recorder: AV KING RN; Confirmation: Confirmed ; Classification: Patient Stated ; Code: 38019167 ; Contributor System: PowerChart ; Last Updated: 09/11/2019 6:25 EST ; Life Cycle Date: 09/11/2019 ; Life Cycle Status: Active ; Vocabulary: SNOMED CT Hyperlipidemia (SNOMED CT :45240605 ) Name of Problem: Hyperlipidemia ; Recorder: WALTER POWELL RN; Confirmation: Confirmed ; Classification: Patient Stated ; Code: 66609410 ; Contributor System: PowerChart ; Last Updated: 08/04/2020 11:53 EDT ; Life Cycle Date: 08/04/2020 ; Life Cycle Status: Active ; Vocabulary: SNOMED CT Hypertension (SNOMED CT :72113889 ) Name of Problem: Hypertension ; Recorder: HILDA ANTHONY RN; Confirmation: Confirmed ; Classification: Medical ; Code: 47116705 ; Contributor System: PowerChart ; Last Updated: 10/26/2019 9:33 EST ; Life Cycle Date: 10/26/2019 ; Life Cycle Status: Active ; Vocabulary: SNOMED CT Hypertension (SNOMED CT :47730206 ) Name of Problem: Hypertension ; Recorder: WALTER POWELL RN; Confirmation: Confirmed ; Classification: Patient Stated ; Code: 92593851 ; Contributor System: PowerChart ; Last Updated: 08/04/2020 11:53 EDT ; Life Cycle Date: 08/04/2020 ; Life Cycle Status: Active ; Vocabulary: SNOMED CT Impaired vision in both eyes (SNOMED CT :4757845887 ) Name of Problem: Impaired vision in both eyes ; Recorder: AUSTIN FOFANA RN; Confirmation: Confirmed ; Classification: Patient Stated ; Code: 2247562945 ; Contributor System: PowerChart ; Last Updated: 12/03/2019 9:57 EST ; Life Cycle Date: 12/03/2019 ; Life Cycle Status: Active ; Vocabulary: SNOMED CT Right bundle branch block (SNOMED CT :67146591 ) Name of Problem: Right bundle branch block ; Recorder: AV KING RN; Confirmation: Confirmed ; Classification: Patient Stated ; Code: 20622064 ; Contributor System: PowerChart ; Last Updated: 09/11/2019 7:12 EST ; Life Cycle Date: 09/11/2019 ; Life Cycle Status: Active ; Vocabulary: SNOMED CT Shortness of breath (SNOMED CT :601365570 ) Name of Problem: Shortness of breath ; Recorder: HILDA ANTHONY RN; Confirmation: Confirmed ; Classification: Medical ; Code: 843089378 ; Contributor System: LOC&ALLChart ; Last Updated: 10/26/2019 9:34 EST ; Life Cycle Date: 10/26/2019 ; Life Cycle Status: Active ; Vocabulary: SNOMED CT Wears glasses (SNOMED CT :260048775 ) Name of Problem: Wears glasses ; Recorder: HILDA ANTHONY RN; Confirmation: Confirmed ; Classification: Medical ; Code: 570573142 ; Contributor System: [employer] ; Last Updated: 10/26/2019 9:32 EST ; Life Cycle Date: 10/26/2019 ; Life Cycle Status: Active ; Vocabulary: SNOMED CT Diagnoses(Active) Chest pain Date: 06/02/2021 ; Diagnosis Type: Reason For Visit ; Confirmation: Complaint of ; Clinical Dx: Chest pain ; Classification: Medical ; Clinical Service: Non-Specified ; Code: PNED ; Probability: 0 ; Diagnosis Code: [id number] Weakness Date: 06/02/2021 ; Diagnosis Type: Reason For Visit ; Confirmation: Complaint of ; Clinical Dx: Weakness ; Classification: Medical ; Clinical Service: Non-Specified ; Code: PNED ; Probability: 0 ; Diagnosis Code: [id number] ED Height and Weight Height Source : Stated Height Entry Format : [place] Height, Feet : 5 ft(Converted to: 152 cm, 60 Inch) Height, Inches : 9 Inch(Converted to: 0 ft 9 Inch, 22.86 cm) Clinical Height : 175.26 cm Weight Source, ED : Standing scale Weight Entry Format : [place] Weight, Pounds : 198.4 lb Clinical Dosing Weight : 90.18 kg Body Surface Area (BSA) : 2.06 m2 Body Mass Index : 29.4 kg/m2 (HI) [place] Body Weight (IBW) : 69.73 kg Marisela Mendenhall RN - 06/02/2021 10:01 EDT documented in this encounter Plan of Treatment Not on file documented as of this encounter Visit Diagnoses Not on filedocumented in this encounter
--- OUTSIDE RECORDS SUMMARY | 2025-09-12 10:03 | XMS_ITS | Encounter Summary ---
Author Organization [employer] ([place], [place], [place], [place], [place]) Address [address] [place] [address] Care Team Providers Care Crap Shooter Name Role Phone Unavailable Primary Care Provider Unavailabl e Encounter Details Date Type Department Care Team (Late st Contact Info) Description 10/30/2019 Transcribed Document [facility] [place] Family Medicine [address] [place] [address] ProviderPrasanth MD [address] [place] [address] Social History Tobacco Use Types Packs/Day Years Used Date Smoking Tobacco: Never Assessed Sex and Gender Information Value Date Recorded Sex Assigned at Not on file Legal Sex Male 6:49 PM CDT Gender Identity Not on file Sexual Orientation Not on file documented as of this encounter Miscellaneous Notes * [employer]ner Conversion Note - Historical ProviderMD - 10/30/2019 2:00 AM MEDICAL RECORDS CLERK Rock Cutter Details Entered On: 10/30/2019 4:47 EST Performed [...]
--- OUTSIDE RECORDS SUMMARY | 2025-09-12 10:03 | XMS_ITS | Encounter Summary ---
Author Organization [employer] ([place], [place], [place], [place], [place]) Address [address] [place] [address] Care Team Providers Care Web Marketing Manager Name Role Phone Unavailable Primary Care Provider Unavailabl e Encounter Details Date Type Department Care Team (Late st Contact Info) Description 11/06/2019 Transcribed Document [facility] [place] [address] [place] [address] ProviderPraasnth MD [address] [place] [address] Social History Tobacco Use Types Packs/Day Years Used Date Smoking Tobacco: Never Assessed Sex and Gender Information Value Date Recorded Sex Assigned at Not on file Legal Sex Male 6:49 PM CDT Gender Identity Not on file Sexual Orientation Not on file documented as of this encounter Miscellaneous Notes * Cerner Conversion Note - Prasatnh ProviderMD - 11/06/2019 2:29 PM WATER TAXI CAPTAIN Readmission Questionnaire Entered On: 11/06/2019 14:31 EST Performed On: 11/06/2019 14:29 EST by BINH SIDDIQI RN-Intelligence Operations Readmission Questionnaire Information Obtained From : Patient [...] hematoma. 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 BINH SIDDIQI, RN-Intelligence Operations - 11/06/2019 14:29 EST Electronically signed by [facility], [facility] Conversion Office Communication Professor Cerner at 01/26/2023 8:55 PM CDT documented in this encounter Plan of Treatment Not on file documented as of this encounter Visit Diagnoses Not on filedocumented in this encounter
--- OUTSIDE RECORDS SUMMARY | 2025-09-12 10:03 | XMS_ITS | Encounter Summary ---
Author Organization [employer] ([place], [place], [place], [place], [place]) Address [address] [place] [address] Care Team Providers Care Hasher Operator Name Role Phone Unavailable Primary Care Provider Unavailabl e Encounter Details Date Type Department Care Team (Late st Contact Info) Description 06/02/2021 Transcribed Document [facility] [place] Family Medicine [address] [place] [address] ProviderPrasanth MD [address] [place] [address] Social History Tobacco Use Types [...] information. No nutrition dx at this time. clinical dental technician to rescreen in 7-10 days. Nanette Moreno Diet Technician - 06/03/2021 11:22 EDT Electronically signed by Nikita [facility] Conversion Satellite Installer Cerner at 01/26/2023 8:49 PM CDT documented in this encounter Plan of Treatment Not on file documented as of this encounter Visit Diagnoses Not on filedocumented in this encounter
--- OUTSIDE RECORDS SUMMARY | 2025-09-12 10:03 | XMS_ITS | Encounter Summary ---
Author Organization [employer] ([place], [place], [place], [place], [place]) Address [address] [place] [address] Care Team Providers Care Dairy Husbandman Name Role Phone Unavailable Primary Care Provider Unavailabl e Encounter Details Date Type Department Care Team (Late st Contact Info) Description 11/06/2019 Transcribed Document [facility] [address] [place] [address] ProviderPrasanth MD [address] [place] [address] Social History Tobacco Use Types Packs/Day Years Used Date Smoking Tobacco: Never Assessed Sex and Gender Information Value Date Recorded Sex Assigned at Not on file Legal Sex Male 6:49 PM CDT Gender Identity Not on file Sexual Orientation Not on file documented as of this encounter Miscellaneous Notes * Cerner Conversion Note - Historical ProviderMD - 11/06/2019 5:00 PM SAMPLE PREPARATION SUPERVISOR Chart Check - Review Order Profile Entered On: 11/06/2019 17:05 EST Performed On: 11/06/2019 17:00 EST by Lavonne Funez RN Chart Check Powerplans Initiated/Discontinued as Appropriate : Yes All Active Orders Reviewed : Yes Lavonne Funez RN - 11/06/2019 17:05 EST Electronically signed by Nikita [facility] Conversion Company Accountant Cerner at 01/26/2023 8:54 PM CDT documented in this encounter Plan of Treatment Not on file documented as of this encounter Visit Diagnoses Not on filedocumented in this encounter
--- OUTSIDE RECORDS SUMMARY | 2025-09-12 10:03 | XMS_ITS | Encounter Summary ---
Author Organization [employer] ([place], [place], [place], [place], [place]) Address [address] [place] [address] Care Team Providers Care Merchandise Flow Team Leader Name Role Phone Unavailable Primary Care Provider Unavailabl e Encounter Details Date Type Department Care Team (Late st Contact Info) Description 10/30/2019 Transcribed Document [facility] Cardiology [address] [place] [address] Lee Ann Quinonez MD [address] [facility] [address] [place] [address] Social History Tobacco Use Types [...] None Author: LEE ANN QUINONEZ MD-CAR BASIC Care Program Director: Dr. Easley Subjective Post TAVR, doing well, ready for discharge home today. Health Status Current medications: (Selected) Inpatient Medications Ordered Ambien: 5 mg, Oral, At Bedtime, PRN: Sleep Artificial Tears ophthalmic solution: 1 Drop, Eyes Both, TID, PRN: Dry Eyes [place] Saline 0.65% nasal solution: 1 [place], Nasal, Q4H, PRN: Congestion Dulcolax Laxative: 10 [...] Normal strength, No deformity. Integumentary: Warm, Dry, [place], No rash. Neurologic: Alert, Oriented, No focal [...]
--- OUTSIDE RECORDS SUMMARY | 2025-09-12 10:03 | XMS_ITS | Encounter Summary ---
Author Organization [employer] ([place], [place], [place], [place], [place]) Address [address] [place] [address] Care Team Providers Care Chemical Dependency Therapist Name Role Phone Unavailable Primary Care Provider Unavailabl e Encounter Details Date Type Department Care Team (Late st Contact Info) Description 10/29/2019 Transcribed Document [facility] [place] Family Medicine [facility] [place] [address] ProviderPrasanth MD [address] [place] [address] Social History Tobacco Use Types Packs/Day Years Used Date Smoking Tobacco: Never Assessed Sex and Gender Information Value Date Recorded Sex Assigned at Not on file Legal Sex Male 6:49 PM CDT Gender Identity Not on file Sexual Orientation Not on file documented as of this encounter Miscellaneous Notes * Cerner Conversion Note - Prasanth ProviderMD - 10/29/2019 6:00 AM CULINARY INSTRUCTOR Patient: SHIRA GARZA HORACIO Age: 84 [...] All Problems Wears glasses / SNOMED CT 738170031 / Confirmed Right bundle branch block / SNOMED CT 48663318 / Confirmed Renal calculus / SNOMED CT 550420028 / Confirmed Hypertension / SNOMED CT 41344670 / Confirmed Hyperlipidemia / SNOMED CT 99622612 / Confirmed Shortness of breath / SNOMED CT 504804233 / Confirmed CAD (coronary artery disease) / SNOMED CT 48511261 / Confirmed Benign neoplastic disease / SNOMED CT 96010835 / Confirmed Atrial flutter / SNOMED CT 9808879 / Confirmed At risk for sleep apnea / IMO 06516151 / Confirmed Aortic stenosis / SNOMED CT 700966573 / Confirmed, Active Problems (11) Aortic stenosis [...] of motion, Normal strength. Integumentary: Warm, Dry, [place]. Neurologic: Alert, Oriented. Psychiatric: Cooperative, Appropriate mood [...]
--- OUTSIDE RECORDS SUMMARY | 2025-09-12 10:03 | XMS_ITS | Encounter Summary ---
Author Organization [employer] ([place], [place], [place], [place], [place]) Address [address] [place] [address] Care Team Providers Care Condominium Association Manager Name Role Phone Unavailable Primary Care Provider Unavailabl e Encounter Details Date Type Department Care Team (Late st Contact Info) Description 11/07/2019 Transcribed Document [facility] [place] [facility] [place] [address] ProviderPrasanth MD [address] [id number] Social History Tobacco Use Types Packs/Day Years Used Date Smoking Tobacco: Never Assessed Sex and Gender Information Value Date Recorded Sex Assigned at Not on file Legal Sex Male 6:49 PM CDT Gender Identity Not on file Sexual Orientation Not on file documented as of this encounter Miscellaneous Notes * Cerner Conversion Note - Prasanth Sanchez MD - 11/07/2019 4:54 PM METAL MACHINE SETTER DATE OF PROCEDURE: 11/07/2019 SURGEON: Dionicio Soliman [...] A [employer] lead model 2088, serial #[id number], was affixed to the right ventricular apex [...] candidate mid posterolateral vein. A [employer] customer service leader model 1458, serial #[id number], was advanced to the distal aspect, and using an M3-M2 configuration, the capture threshold was 1.5 V with lead impedance of 930 ohms. The delivery system was removed in a standard fashion. Next, a [employer] customer service leader model 2088, serial #[id number], was affixed to the right atrial appendage where the Q capture threshold was 0.5 V with lead impedance of 490 ohms, and sensed P-wave 2 mV. All leads were affixed to the prepectoralis fascia using interrupted 0 silk sutures around the retention collars. The pocket was irrigated with antibiotic solution. Hemostasis was achieved. A [employer] pulse generator model RH2749, serial #[id number], was attached to the leads and placed [...] device clinic followup, and home remote monitoring. /[id number] Dionicio Soliman MD TCR/AQ / TCR / MODL /[id number] documented in this encounter Plan of Treatment Not on file documented as of this encounter Visit Diagnoses Not on filedocumented in this encounter
--- OUTSIDE RECORDS SUMMARY | 2025-09-12 10:03 | XMS_ITS | Encounter Summary ---
Author Organization [employer] ([place], [place], [place], [place], [place]) Address [address] [place] [address] Care Team Providers Care Technical Rep Name Role Phone Unavailable Primary Care Provider Unavailabl e Encounter Details Date Type Department Care Team (Late st Contact Info) Description 11/06/2019 Transcribed Document [facility] [place] Family Medicine [address] [place] [address] ProviderPrasanth MD [address] [place] [address] Social History Tobacco Use Types Packs/Day Years Used Date Smoking Tobacco: Never Assessed Sex and Gender Information Value Date Recorded Sex Assigned at Not on file Legal Sex Male 6:49 PM CDT Gender Identity Not on file Sexual Orientation Not on file documented as of this encounter Miscellaneous Notes * Cerner Conversion Note - Prasanth ProviderMD - 11/06/2019 8:58 AM SHOT TUBE MACHINE TENDER Patient: SHIRA GARZA HORACIO Age: 84 years Sex: Male : 1935 Associated Diagnoses: None Author: CELESTINA RUIZ APRN [facility] CARDIOLOGY PROGRESS NOTE: DIAGNOSIS: 1. [...] Routine Weight, Kilograms: 92 kg (11/06/19 02:20:00) [place] Body Weight: 70 kg (11/04/19 21:29:00) Intake [...] s/p TAVR 10/29/2019 CAD s/p 5V CABG [facility] 09/2019 revealed patent grafts continue nitrate, [...]
--- OUTSIDE RECORDS SUMMARY | 2025-09-12 10:03 | XMS_ITS | Encounter Summary ---
Author Organization [employer] ([place], [place], [place], [place], [place]) Address [address] [place] [address] Care Team Providers Care Poiser Name Role Phone Unavailable Primary Care Provider Unavailabl e Encounter Details Date Type Department Care Team (Late st Contact Info) Description 10/30/2019 Transcribed Document [facility] [place] Family Medicine [address] [place] [address] ProviderPrasanth MD [address] [place], [place] [id number] Social History Tobacco Use Types Packs/Day Years Used Date Smoking Tobacco: Never Assessed Sex and Gender Information Value Date Recorded Sex Assigned at Not on file Legal Sex Male 6:49 PM CDT Gender Identity Not on file Sexual Orientation Not on file documented as of this encounter Miscellaneous Notes * Cerner Conversion Note - Historical ProviderMD - 10/30/2019 8:23 AM MACHINE LACER UM Authorization Entered On: 10/30/2019 8:23 EST Performed On: 10/30/2019 8:23 EST by ENDER LOMBARDO RN Primary Insurance Authorization Authorization and Policy Numbers : Insurance 1 Health Plan: MEDICARE Policy Number: [id number] Authorization Number: Insurance 2 Health Plan: A[employer] N Policy Number: [id number] Authorization Number: Insurance Primary Name : MEDICARE Policy Number: [id number] Historical Authorization Comments-Primary : No Authorization Comments Found ENDER LOMBARDO RN - 10/30/2019 8:23 EST documented in this encounter Plan of Treatment Not on file documented as of this encounter Visit Diagnoses Not on filedocumented in this encounter
--- OUTSIDE RECORDS SUMMARY | 2025-09-12 10:03 | XMS_ITS | Referral Summary ---
Author Organization [employer] ([place], [place], [place], [place], [place]) Address [address] [place] [address] Care Team Providers Care Grape Grower Name Role Phone Unavailable Primary Care Provider [...]
--- OUTSIDE RECORDS SUMMARY | 2025-09-12 10:03 | XMS_ITS | Encounter Summary ---
Author Organization [employer] ([place], [place], [place], [place], [place]) Address [address] [place] [address] Care Team Providers Care Physical Therapist Assistant Name Role Phone Unavailable Primary Care Provider Unavailabl e Encounter Details Date Type Department Care Team (Late st Contact Info) Description 11/06/2019 Transcribed Document [facility] Radiology [address] [place] [address] Abel Kapadia MD [address] [place] [address] [address] [place] [id number] Social History Tobacco Use Types Packs/Day Years [...] Discharge PRIMARY CARE PHYSICIAN: Dr. Marcelino Caldera, [facility]. REFERRING PHYSICIAN: Dr. Beckman, [facility] , 1935. CURRENT COMPLAINT: Falls, [...] At risk for sleep apnea / IMO 48963300 / Confirmed Shortness of breath / SNOMED CT 109535678 / Confirmed Hypertension / SNOMED CT 26649948 / Confirmed Wears glasses / SNOMED CT 428421565 / Confirmed, Active Problems (11) Aortic stenosis [...] gallop, S1+ S2 No S3 or S4 [place].. Gastrointestinal: Soft, Non-tender, Non-distended, Normal bowel sounds. [...] (NOV 04) Radiology Results (Last 48 hours) [id number] -- 11/04/2019 21:19 CT Head WO (11/04/2019 [...]
--- OUTSIDE RECORDS SUMMARY | 2025-09-12 10:03 | XMS_ITS | Encounter Summary ---
Author Organization [employer] ([place], [place], [place], [place], [place]) Address [address] [place] [address] Care Team Providers Care Manager Of Operations Name Role Phone Unavailable Primary Care Provider Unavailabl e Encounter Details Date Type Department Care Team (Late st Contact Info) Description 11/06/2019 Transcribed Document [facility] [place] [address] [place] [address] ProviderPrasanth MD [address] [place] [address] Social History Tobacco Use Types Packs/Day Years Used Date Smoking Tobacco: Never Assessed Sex and Gender Information Value Date Recorded Sex Assigned at Not on file Legal Sex Male 6:49 PM CDT Gender Identity Not on file Sexual Orientation Not on file documented as of this encounter Miscellaneous Notes * Cerner Conversion Note - Prasanth ProviderMD - 11/06/2019 2:25 PM ATHLETIC DIRECTOR Initial Discharge Planning Entered On: 11/06/2019 14:29 EST Performed On: 11/06/2019 14:25 EST by BINH SIDDIQI, RN-Yarn Skeins Examiner Initial Assessment I Previously Documented Living [...] Listed? : Yes Medical Durable Power of Cashier Courtesy Booth Name : Legal Guardian : No Is Guardianship Needed : No BINH SIDDIQI, RN-Yarn Skeins Examiner - 11/06/2019 14:25 EST Initial Assessment II Sensory and Motor Deficits : None, Weakness Current Home Treatments and Equipment : None Does the Patient have a Floor to SNF Benefit? : Yes BINH SIDDIQI, RN-Yarn Skeins Examiner - 11/06/2019 14:25 EST Discharge Needs I Anticipated Discharge Date : 11/08/2019 EST Anticipated Discharge To, CM : Home with home health Current Home Treatment/Equipment : Current Home Treatment/Equipment Current Home Treatments and Equipment: None (11/05/19 17:51:00) Post Acute/Home Treatments : None Documentation Status Complete : Yes BINH SIDDIQI, RN-Yarn Skeins Examiner - 11/06/2019 14:25 EST Discharge Needs II Professional Skilled Services : Professional Skilled Services No qualifying data available. Needs Assistance with Transportation : No Discharge Options Discussed with Patient : Home Health BINH SIDDIQI, RN-Yarn Skeins Examiner - 11/06/2019 14:25 EST Narrative Note Narrative [...] and assist w/needs as approp. ROSANA CALLEJAS, RN-Yarn Skeins Examiner - 11/05/19 17:54:15 BINH SIDDIQI, RN-Yarn Skeins Examiner - 11/06/2019 14:25 EST documented in this encounter Plan of Treatment Not on file documented as of this encounter Visit Diagnoses Not on filedocumented in this encounter
--- OUTSIDE RECORDS SUMMARY | 2025-09-12 10:03 | XMS_ITS | Encounter Summary ---
Author Organization [employer] ([place], [place], [place], [place], [place]) Address [address] [place] [address] Care Team Providers Care Chain Hoist Operator Name Role Phone Unavailable Primary Care Provider Unavailabl e Encounter Details Date Type Department Care Team (Late st Contact Info) Description 11/06/2019 Transcribed Document [facility] [place] [address] [place] [address] ProviderPrasanth MD [address] [place] [address] Social History Tobacco Use Types Packs/Day Years Used Date Smoking Tobacco: Never Assessed Sex and Gender Information Value Date Recorded Sex Assigned at Not on file Legal Sex Male 6:49 PM CDT Gender Identity Not on file Sexual Orientation Not on file documented as of this encounter Miscellaneous Notes * Cerner Conversion Note - Historical ProviderMD - 11/06/2019 12:56 PM WEB CONTENT PRODUCER Education-Surgery Entered On: 11/06/2019 16:00 EST Performed [...] 11/06/2019 16:00 EST Electronically signed by Nikita [facility] Conversion Data Analysis Assistant Cerner at 01/26/2023 8:56 PM CDT documented in this encounter Plan of Treatment Not on file documented as of this encounter Visit Diagnoses Not on filedocumented in this encounter
--- OUTSIDE RECORDS SUMMARY | 2025-09-12 10:04 | XMS_ITS | Encounter Summary ---
Author Organization [employer] ([place], [place], [place], [place], [place]) Address [address] [place] [address] Care Team Providers Care Corporate Services Manager Name Role Phone Unavailable Primary Care Provider Unavailabl e Encounter Details Date Type Department Care Team (Late st Contact Info) Description 09/11/2019 Transcribed Document [facility] Family Medicine [address] [place] [address] ProviderPrasanth MD [address] [place] [address] Social History Tobacco Use Types Packs/Day Years Used Date Smoking Tobacco: Never Assessed Sex and Gender Information Value Date Recorded Sex Assigned at Not on file Legal Sex Male 6:49 PM CDT Gender Identity Not on file Sexual Orientation Not on file documented as of this encounter Miscellaneous Notes * Cerner Conversion Note - Prasanth ProviderMD - 09/11/2019 11:52 AM MARKETING BUSINESS ANALYST Nursing Discharge Summary Entered On: 09/11/2019 11:52 EST Performed On: 09/11/2019 11:52 EST by AV KING RN Discharge Documentation Discharge Date/Time : 09/11/2019 12:15 EST Transporter Signature : AV IKNG RN TOWLES, TAMMY L, RN - 09/11/2019 [...] 09/11/2019 11:52 EST Electronically signed by Nikita [facility] Conversion Barrel Drum Cutter Cerner at 01/26/2023 8:50 PM CDT documented in this encounter Plan of Treatment Not on file documented as of this encounter Visit Diagnoses Not on filedocumented in this encounter
--- OUTSIDE RECORDS SUMMARY | 2025-09-12 10:04 | XMS_ITS | Encounter Summary ---
Author Organization [employer] ([place], [place], [place], [place], [place]) Address [address] [place] [address] Care Team Providers Care Assistant Corporate Secretary Name Role Phone Unavailable Primary Care Provider Unavailabl e Encounter Details Date Type Department Care Team (Late st Contact Info) Description 09/11/2019 Transcribed Document [facility] [place] [address] [place] [address] ProviderPrasanth MD [address] [place] [address] Social History Tobacco Use Types Packs/Day Years Used Date Smoking Tobacco: Never Assessed Sex and Gender Information Value Date Recorded Sex Assigned at Not on file Legal Sex Male 6:49 PM CDT Gender Identity Not on file Sexual Orientation Not on file documented as of this encounter Miscellaneous Notes * Cerner Conversion Note - Historical ProviderMD - 09/11/2019 9:20 AM SQUARING MACHINE OPERATOR Event Note Entered On: 09/11/2019 9:24 EST Performed On: 09/11/2019 9:20 EST by AV KING RN Event Note Event Date/Time : 09/11/2019 9:00 EST Description of Event : 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
--- OUTSIDE RECORDS SUMMARY | 2025-09-12 10:04 | XMS_ITS | Encounter Summary ---
Author Organization [employer] ([place], [place], [place], [place], [place]) Address [address] [place] [address] Care Team Providers Care Paper Sealer Name Role Phone Unavailable Primary Care Provider Unavailabl e Encounter Details Date Type Department Care Team (Late st Contact Info) Description 11/04/2019 Transcribed Document [facility] Neurology - [address] [facility] [address] [place] [address] Lesly Chiang Jr., MD [address] [place] [address] [address] [place] [address] Social History Tobacco Use Types [...]
--- OUTSIDE RECORDS SUMMARY | 2025-09-12 10:04 | XMS_ITS | Encounter Summary ---
Author Organization [employer] ([place], [place], [place], [place], [place]) Address [address] [place] [address] Care Team Providers Care Residency Director Name Role Phone Unavailable Primary Care Provider Unavailabl e Encounter Details Date Type Department Care Team (Late st Contact Info) Description 09/11/2019 Transcribed Document [facility] [place] [address] [place] [address] ProviderPrasanth MD [address] [place] [address] Social History Tobacco Use Types Packs/Day Years Used Date Smoking Tobacco: Never Assessed Sex and Gender Information Value Date Recorded Sex Assigned at Not on file Legal Sex Male 6:49 PM CDT Gender Identity Not on file Sexual Orientation Not on file documented as of this encounter Miscellaneous Notes * Cerner Conversion Note - Historical ProviderMD - 09/11/2019 12:14 PM RETAIL PERFORMANCE SPECIALIST Event Note Entered On: 09/11/2019 12:17 EST [...] 09/11/2019 12:14 EST Electronically signed by Nikita [facility] Conversion Electrical Tests Supervisor Cerner at 01/26/2023 9:01 PM CDT documented in this encounter Plan of Treatment Not on file documented as of this encounter Visit Diagnoses Not on filedocumented in this encounter
--- OUTSIDE RECORDS SUMMARY | 2025-09-12 10:04 | XMS_ITS | Encounter Summary ---
Author Organization [employer] ([place], [place], [place], [place], [place]) Address [address] [place] [address] Care Team Providers Care Transformer Assembler Name Role Phone Unavailable Primary Care Provider Unavailabl e Encounter Details Date Type Department Care Team (Late st Contact Info) Description 11/04/2019 Transcribed Document [facility] [place] [facility] [place] [address] ProviderPrasanth MD [address] [place] [address] Social History Tobacco Use Types Packs/Day Years Used Date Smoking Tobacco: Never Assessed Sex and Gender Information Value Date Recorded Sex Assigned at Not on file Legal Sex Male 6:49 PM CDT Gender Identity Not on file Sexual Orientation Not on file documented as of this encounter Miscellaneous Notes * Cerner Conversion Note - Prasanth ProviderMD - 11/04/2019 7:33 PM NEWSPAPER COLUMNIST ED Triage Entered On: 11/04/2019 19:42 EST [...] : 2 - Emergent Tracking Group : [facility] ED RADHA COVINGTON Rn - [...] 19:42:51 EST) Problems(Active) Aortic stenosis (SNOMED CT :786114252 ) Name of Problem: Aortic stenosis ; Recorder: RADHA TERRAZAS RN; Confirmation: Confirmed ; Classification: Patient Stated ; Code: 453010484 ; Contributor System: Mohound ; Last Updated: 11/14/2018 7:27 EST ; Life Cycle Date: 11/14/2018 ; Life Cycle Status: Active ; Vocabulary: SNOMED CT At risk for sleep apnea (IMO :26033469 ) Name of Problem: At risk for sleep apnea ; Recorder: SYSTEM, SYSTEM; Confirmation: Confirmed ; Classification: Medical ; Code: 66791536 ; Last Updated: 11/14/2018 7:19 EST ; Life Cycle Date: 11/14/2018 ; Life Cycle Status: Active ; Vocabulary: IMO Atrial flutter (SNOMED CT :8627201 ) Name of Problem: Atrial flutter ; Recorder: RADHA TERRAZAS RN; Confirmation: Confirmed ; Classification: Patient Stated ; Code: 3111900 ; Contributor System: HometicaChart ; Last Updated: 11/14/2018 7:26 EST ; Life Cycle Date: 11/14/2018 ; Life Cycle Status: Active ; Vocabulary: SNOMED CT Benign neoplastic disease (SNOMED CT :22333464 ) Name of Problem: Benign neoplastic disease ; Recorder: AV KING RN; Confirmation: Confirmed ; Classification: Patient Stated ; Code: 61499601 ; Contributor System: PowerChart ; Last Updated: 09/11/2019 7:15 EST ; Life Cycle Date: 09/11/2019 ; Life Cycle Status: Active ; Vocabulary: SNOMED CT CAD (coronary artery disease) (SNOMED CT :18468029 ) Name of Problem: CAD (coronary artery disease) ; Recorder: RADHA TERRAZAS RN; Confirmation: Confirmed ; Classification: Patient Stated ; Code: 39113290 ; Contributor System: PowerChart ; Last Updated: 11/14/2018 7:27 EST ; Life Cycle Date: 11/14/2018 ; Life Cycle Status: Active ; Vocabulary: SNOMED CT Hyperlipidemia (SNOMED CT :40536428 ) Name of Problem: Hyperlipidemia ; Recorder: AV KING RN; Confirmation: Confirmed ; Classification: Patient Stated ; Code: 79164801 ; Contributor System: PowerChart ; Last Updated: 09/11/2019 6:25 EST ; Life Cycle Date: 09/11/2019 ; Life Cycle Status: Active ; Vocabulary: SNOMED CT Hypertension (SNOMED CT :93674486 ) Name of Problem: Hypertension ; Recorder: HILDA ANTHONY RN; Confirmation: Confirmed ; Classification: Medical ; Code: 80110767 ; Contributor System: PowerChart ; Last Updated: 10/26/2019 9:33 EST ; Life Cycle Date: 10/26/2019 ; Life Cycle Status: Active ; Vocabulary: SNOMED CT Renal calculus (SNOMED CT :779370494 ) Name of Problem: Renal calculus ; Recorder: RADHA TERARZAS RN; Confirmation: Confirmed ; Classification: Patient Stated ; Code: 070413823 ; Contributor System: PowerChart ; Last Updated: 11/14/2018 7:30 EST ; Life Cycle Date: 11/14/2018 ; Life Cycle Status: Active ; Vocabulary: SNOMED CT Right bundle branch block (SNOMED CT :21123027 ) Name of Problem: Right bundle branch block ; Recorder: AV KING RN; Confirmation: Confirmed ; Classification: Patient Stated ; Code: 48744458 ; Contributor System: HometicaChart ; Last Updated: 09/11/2019 7:12 EST ; Life Cycle Date: 09/11/2019 ; Life Cycle Status: Active ; Vocabulary: SNOMED CT Shortness of breath (SNOMED CT :771818807 ) Name of Problem: Shortness of breath ; Recorder: HILDA ANTHONY RN; Confirmation: Confirmed ; Classification: Medical ; Code: 216121818 ; Contributor System: Mohound ; Last Updated: 10/26/2019 9:34 EST ; Life Cycle Date: 10/26/2019 ; Life Cycle Status: Active ; Vocabulary: SNOMED CT Wears glasses (SNOMED CT :431432500 ) Name of Problem: Wears glasses ; Recorder: HILDA ANTHONY RN; Confirmation: Confirmed ; Classification: Medical ; Code: 764838747 ; Contributor System: Mohound ; Last Updated: 10/26/2019 9:32 EST ; Life Cycle Date: 10/26/2019 ; Life Cycle Status: Active ; Vocabulary: SNOMED CT Diagnoses(Active) Dizziness Date: 11/04/2019 ; Diagnosis Type: Reason For Visit ; Confirmation: Complaint of ; Clinical Dx: Dizziness ; Classification: Medical ; Clinical Service: Emergency medicine ; Code: PNED ; Probability: 0 ; Diagnosis Code: [id number] ED Height and Weight Height Source : Stated Height Entry Format : Epps Height, Feet : 5 ft(Converted to: 152 cm, 60 Inch) Height, Inches : 9 Inch(Converted to: 0 ft 9 Inch, 22.86 cm) Clinical Height : 175.26 cm Weight Source, ED : Critical estimated dosing weight Weight Entry Format : Epps Weight, Pounds : 195 lb Clinical Dosing Weight : 88.64 kg Body Surface Area (BSA) : 2.05 m2 Body Mass Index : 28.9 kg/m2 (HI) [place] Body Weight (IBW) : 69.73 kg RADHA [...] form. Electronically signed by Carla Shelton Conversion Business Development Assistant Cerner at 01/26/2023 9:05 PM CDT documented in this encounter Plan of Treatment Not on file documented as of this encounter Visit Diagnoses Not on filedocumented in this encounter
--- OUTSIDE RECORDS SUMMARY | 2025-09-12 10:04 | XMS_ITS | Encounter Summary ---
Author Organization [employer] ([place], [place], [place], [place], [place]) Address [address] [place] [address] Care Team Providers Care Compliance Nurse Name Role Phone Unavailable Primary Care Provider Unavailabl e Encounter Details Date Type Department Care Team (Late st Contact Info) Description 11/14/2018 Transcribed Document [facility] [place] [address] [place] [address] ProviderPrasanth MD [address] [place] [address] Social History Tobacco Use Types Packs/Day Years Used Date Smoking Tobacco: Never Assessed Sex and Gender Information Value Date Recorded Sex Assigned at Not on file Legal Sex Male 6:49 PM CDT Gender Identity Not on file Sexual Orientation Not on file documented as of this encounter Miscellaneous Notes * Cerner Conversion Note - Prasanth ProviderMD - 11/14/2018 7:10 AM APPLICATION TECHNICAL DESIGNER Pre Procedure Adult Entered On: 11/14/2018 7:19 EST Performed On: 11/14/2018 7:10 EST by RADHA TERRAZAS RN Height and Weight, Clinical Dosing Height Source : Stated Height Entry Format : Raymond Height, Feet : 0 ft(Converted to: 0 cm, 0 Inch) Height, Inches : 69 Inch(Converted to: 5 ft 9 Inch, 175.26 cm) Clinical Height : 175.26 cm Weight Source : Standing scale Weight Entry Format : Raymond Clinical Dosing Weight : 88.64 kg Weight, Pounds : 195 lb Body Surface Area (BSA) : 2.05 m2 Body Mass Index : 28.9 kg/m2 (HI) [place] Body Weight : 70 kg RADHA TERRAZAS [...] : No Tuberculosis Symptoms : None RADHA TERRAZSA RN - 11/14/2018 7:10 EST Anesthesia/Transfusion History [...] #2 Relationship : - Primary Language : Indonesian Communication Barrier : None RADHA TERRAZAS RN [...] Scale Risk Level : 0-24 Low Risk [place] Fall Interventions : Wheels locked RADHA TERRAZAS [...]
--- OUTSIDE RECORDS SUMMARY | 2025-09-12 10:04 | XMS_ITS | Encounter Summary ---
Author Organization [employer] ([place], [place], [place], [place], [place]) Address [address] [place] [address] Care Team Providers Care Wireless Sales Expert Name Role Phone Unavailable Primary Care Provider Unavailabl e Encounter Details Date Type Department Care Team (Late st Contact Info) Description 09/11/2019 Transcribed Document [facility] [place] [address] [place] [address] ProviderPrasanth MD [address] [place] [address] Social History Tobacco Use Types Packs/Day Years Used Date Smoking Tobacco: Never Assessed Sex and Gender Information Value Date Recorded Sex Assigned at Not on file Legal Sex Male 6:49 PM CDT Gender Identity Not on file Sexual Orientation Not on file documented as of this encounter Miscellaneous Notes * Cerner Conversion Note - Historical ProviderMD - 09/11/2019 11:21 AM TECHNOLOGY SUPPORT ANALYST Event Note Entered On: 09/11/2019 11:22 EST Performed On: 09/11/2019 11:21 EST by AV KING RN Event Note Event Date/Time : 09/11/2019 11:05 EST Description of Event : Patient has completed appropriate bed rest of 2 hours, he has walked and ready for discharge. [facility] AV KING RN - 09/11/2019 11:21 EST Electronically signed by Nikita [facility] Conversion Centralized Traffic Control Operator Cerner at 01/26/2023 8:57 PM CDT documented in this encounter Plan of Treatment Not on file documented as of this encounter Visit Diagnoses Not on filedocumented in this encounter
--- OUTSIDE RECORDS SUMMARY | 2025-09-12 10:04 | XMS_ITS | Encounter Summary ---
Author Organization [employer] ([place], [place], [place], [place], [place]) Address [address] [place] [address] Care Team Providers Care Sawmill Equipment Operator Name Role Phone Unavailable Primary Care Provider Unavailabl e Encounter Details Date Type Department Care Team (Late st Contact Info) Description 11/04/2019 Transcribed Document [facility] [place] [address] [place] [address] ProviderPrasanth MD [address] [place] [address] Social History Tobacco Use Types Packs/Day Years Used Date Smoking Tobacco: Never Assessed Sex and Gender Information Value Date Recorded Sex Assigned at Not on file Legal Sex Male 6:49 PM CDT Gender Identity Not on file Sexual Orientation Not on file documented as of this encounter Miscellaneous Notes * Cerner Conversion Note - Prasanth ProviderMD - 11/04/2019 11:45 PM COMMERCIAL ELECTRICIAN Education-Critical Care Entered On: 11/04/2019 23:45 EST [...]
--- OUTSIDE RECORDS SUMMARY | 2025-09-12 10:04 | XMS_ITS | Encounter Summary ---
Author Organization [employer] ([place], [place], [place], [place], [place]) Address [address] [place] [address] Care Team Providers Care Business Administration Program Chair Name Role Phone Unavailable Primary Care Provider Unavailabl e Encounter Details Date Type Department Care Team (Late st Contact Info) Description 08/04/2020 Transcribed Document [facility] [place] [address] [place] [address] ProviderPrasanth MD [address] [place], [...] 08/04/2020 20:28 EDT Electronically signed by Nikita [facility] Conversion Multi Share Program Coordinator Cerner at 01/26/2023 9:05 PM CDT documented in this encounter Plan of Treatment Not on file documented as of this encounter Visit Diagnoses Not on filedocumented in this encounter
--- OUTSIDE RECORDS SUMMARY | 2025-09-12 10:04 | XMS_ITS | Encounter Summary ---
Author Organization [employer] ([place], [place], [place], [place], [place]) Address [address] [place] [address] Care Team Providers Care Intern Architect Name Role Phone Unavailable Primary Care Provider Unavailabl e Encounter Details Date Type Department Care Team (Late st Contact Info) Description 09/11/2019 Transcribed Document [facility] [place] [address] [place] [address] ProviderPrasanth MD [address] [place] [address] Social History Tobacco Use Types [...] Sanchez MD - 09/11/2019 11:55 AM DIE CUT OPERATOR DATE OF CONSULTATION: 09/11/2019 REASON FOR CONSULTATION: Evaluation of aortic stenosis. HISTORY OF PRESENT ILLNESS: Mr. 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 He also has undergone previous [...] Mr. Cormier and his and they understand. /[id number] Flaco Kyle IV, MD RDF/AQ / RDF / MODL /[id number] CC: Jason Easley MD Electronically signed by Nikita [facility] Len Wearing Apparel Shaker Richard at 01/26/2023 9:01 PM CDT documented in this encounter Plan of Treatment Not on file documented as of this encounter Visit Diagnoses Not on filedocumented in this encounter
--- OUTSIDE RECORDS SUMMARY | 2025-09-12 10:04 | XMS_ITS | Encounter Summary ---
Author Organization [employer] ([place], [place], [place], [place], [place]) Address [address] [place] [address] Care Team Providers Care Merchandising Manager Name Role Phone Unavailable Primary Care Provider Unavailabl e Encounter Details Date Type Department Care Team (Late st Contact Info) Description 10/30/2019 Transcribed Document [facility] [place] [address] [place] [address] ProviderPrasanth MD [address] [place] [address] Social History Tobacco Use Types Packs/Day Years Used Date Smoking Tobacco: Never Assessed Sex and Gender Information Value Date Recorded Sex Assigned at Not on file Legal Sex Male 6:49 PM CDT Gender Identity Not on file Sexual Orientation Not on file documented as of this encounter Miscellaneous Notes * Cerner Conversion Note - Historical ProviderMD - 10/30/2019 12:20 PM MATHEMATICAL STATISTICIAN Stroke/Warfarin Instructions Entered On: 10/30/2019 12:20 EST Performed On: 10/30/2019 12:20 EST by Jason Thompson, RN Stroke/Warfarin Instructions Stroke/TIA Discharge Ins : N/A Warfarin Discharge Ins : N/A Jason Thompson RN - 10/30/2019 12:20 EST Electronically signed by Nikita [facility] Conversion Arc Cutter Cerner at 01/26/2023 9:10 PM CDT documented in this encounter Plan of Treatment Not on file documented as of this encounter Visit Diagnoses Not on filedocumented in this encounter
--- OUTSIDE RECORDS SUMMARY | 2025-09-12 10:04 | XMS_ITS | Encounter Summary ---
Author Organization [employer] ([place], [place], [place], [place], [place]) Address [address] [place] [address] Care Team Providers Care Ordnance Artificer Helper Name Role Phone Unavailable Primary Care Provider Unavailabl e Encounter Details Date Type Department Care Team (Late st Contact Info) Description 06/02/2021 Transcribed Document [facility] [place] [address] [place] [address] ProviderPrasanth MD [address] [place] [address] Social History Tobacco Use [...] integrated, provides little strength/resource Active in a Episcopalian/Kirsten Group : No Taoism Preference : No zoroastrian Dean Palmer Chaplain-Non Cert - 06/02/2021 20:52 EDT Spiritual Assessment Patient's Community/Relationship : Strength in patient's life Supportive Taoism Community : No Spirital Assessment Comment/Summary Report : SPIRITUAL ASSESSMENT COMMENT/SUMMARY No qualifying data available. Dean Palmer Chaplain-Non Cert - 06/02/2021 20:52 EDT Interventions Advance Directive Information Provided : No Emotional Support : Empathic/Engaged listening, Established trust, Information provided Spiritual and Taoism : Verify kirsten group connection, Spiritual/Taoism life explored Dean Palmer, Market Specialist-Non Cert - 06/02/2021 20:52 EDT Electronically signed by Nikita, [facility] Conversion Mission Manager Cerner at 01/26/2023 9:10 PM CDT documented in this encounter Plan of Treatment Not on file documented as of this encounter Visit Diagnoses Not on filedocumented in this encounter
--- OUTSIDE RECORDS SUMMARY | 2025-09-12 10:04 | XMS_ITS | Encounter Summary ---
Author Organization [employer] ([place], [place], [place], [place], [place]) Address [address] [place] [id number] Care Team Providers Care Supervisor Feed House Name Role Phone Unavailable Primary Care Provider Unavailabl e Encounter Details Date Type Department Care Team (Late st Contact Info) Description 11/04/2019 Transcribed Document [facility] [place] [address] [place] [address] ProviderPrasanth MD [address] [place] [address] Social History Tobacco Use Types Packs/Day Years Used Date Smoking Tobacco: Never Assessed Sex and Gender Information Value Date Recorded Sex Assigned at Not on file Legal Sex Male 6:49 PM CDT Gender Identity Not on file Sexual Orientation Not on file documented as of this encounter Miscellaneous Notes * Cerner Conversion Note - Historical ProviderMD - 11/04/2019 7:33 PM SUPERVISOR INSPECTING [place] Suicide Severity Rating Scale (C-SSRS) Entered On: 11/04/2019 21:44 EST Performed On: 11/04/2019 21:37 EST by MARIA TERESA KAT RN [place] Suicide Severity Rating Scale (C-SSRS) CSSRS Past [...]
--- OUTSIDE RECORDS SUMMARY | 2025-09-12 10:04 | XMS_ITS | Encounter Summary ---
Author Organization [employer] ([place], [place], [place], [place], [place]) Address [address] [place] [address] Care Team Providers Care Front End Ui Developer Name Role Phone Unavailable Primary Care Provider Unavailabl e Encounter Details Date Type Department Care Team (Late st Contact Info) Description 11/04/2019 Transcribed Document [facility] [place] [address] [place] [address] ProviderPrasanth MD [address] [place] [address] Social History Tobacco Use Types Packs/Day Years Used Date Smoking Tobacco: Never Assessed Sex and Gender Information Value Date Recorded Sex Assigned at Not on file Legal Sex Male 6:49 PM CDT Gender Identity Not on file Sexual Orientation Not on file documented as of this encounter Miscellaneous Notes * Cerner Conversion Note - Historical ProviderMD - 11/04/2019 9:17 PM SAFETY SECURITY OFFICER Consult Phone Call Documentation Entered On: 11/05/2019 8:19 EST Performed On: 11/04/2019 21:17 EST by Iris Banerjee [facility] Unit Coord Phone Call for Consults Consult Phone Call/Page Attempt : First call Consult Reason : traumatic subdural Physician Requesting Consult : RASHAUN FERRARI MD-INT Physician Requested for Consult : LESLY CHIANG MD-SNU Provider Service Notified Name : Neurosurgery Consult, Additional Information : called to office Iris Banerjee, [facility] Unit Coord - 11/05/2019 8:18 EST documented in this encounter Plan of Treatment Not on file documented as of this encounter Visit Diagnoses Not on filedocumented in this encounter
--- OUTSIDE RECORDS SUMMARY | 2025-09-12 10:04 | XMS_ITS | Encounter Summary ---
Author Organization [employer] ([place], [place], [place], [place], [place]) Address [address] [place] [address] Care Team Providers Care Director Of Head Start Name Role Phone Unavailable Primary Care Provider Unavailabl e Encounter Details Date Type Department Care Team (Late st Contact Info) Description 11/14/2018 Transcribed Document [facility] [place] [facility] [place] [address] ProviderPrasanth MD [facility] [place] [address] Social History Tobacco Use [...] Prasanth Sanchez MD - 11/14/2018 12:26 PM WINE SPECIALIST [address] [address] Patient Copy Patient Information: Name: SHIRA GARZA HORACIO Current Date: 11/14/2018 12:26:04 : 1935 Patient [address]: [address] [place] [address] [place] [address] Patient Attending Physician: Primary Care Provider: KARON [...] is done for people who: ??? Have Kxlxj-Bzjmseydb-Mdmol syndrome. ??? Have other fast heart rhythms [...] 02/21/2014 Elsevier Interactive Patient Education ? 2017 [employer] Inc. Atrial Flutter Atrial flutter is a [...] Follow these instructions at home: ??? Take ynmy-jpu-encptim and prescription medicines only as told by [...] 02/12/2010 Document Revised: 02/02/2017 Document Reviewed: 04/09/2016 [employer] Interactive Patient Education ? 2017 [employer] Inc. Moderate Conscious Sedation, Adult, Care After [...] you are awake and alert. ??? Take siym-ukh-ykzlcie and prescription medicines only as told by [...] 07/17/2014 Document Revised: 02/28/2017 Document Reviewed: 01/15/2017 ElseKabbee Interactive Patient Education ? 2017 [employer].com Inc. CIGARETTE SMOKING: The facts are clear, cigarette smoking will shorten your life. Smoking can cause many illnesses along the way. As a healthcare provider, we recommend that you stop smoking. Assistance with quitting is available by contacting 6-137-WPBR-NOW. This is a free resource providing counseling, [...] Be sure to sign up for the Confer patient portal, which gives you 02/05 access to your medical information ??? including these discharge instructions ??? using your computer, smartphone, or tablet. Just go to [employer] to get started. Questions? Call . [facility] would like to thank you for allowing us to assist you with your healthcare needs. KAYLA Yee RONALD HORACIO, (or counter sales representative) have received the above patient education materials/instructions and have verbalized understanding: Patient Signature _ Date/Time Patient Freezing Room Worker Signature (if needed) Date/Time Clinician/Hospital Freezing Room Worker Signature (if needed) Date/Time documented in this encounter Plan of Treatment Not on file documented as of this encounter Visit Diagnoses Not on filedocumented in this encounter
--- OUTSIDE RECORDS SUMMARY | 2025-09-12 10:04 | XMS_ITS | Encounter Summary ---
Author Organization [employer] ([place], [place], [place], [place], [place]) Address [address] [place] [address] Care Team Providers Care Trust Officer Name Role Phone Unavailable Primary Care Provider Unavailabl e Encounter Details Date Type Department Care Team (Late st Contact Info) Description 09/11/2019 Transcribed Document [facility] [place] [address] [place] [address] ProviderPrasanth MD [address] [place] [address] Social History Tobacco Use Types Packs/Day Years Used Date Smoking Tobacco: Never Assessed Sex and Gender Information Value Date Recorded Sex Assigned at Not on file Legal Sex Male 6:49 PM CDT Gender Identity Not on file Sexual Orientation Not on file documented as of this encounter Miscellaneous Notes * Cerner Conversion Note - Prasanth Sanchez MD - 09/11/2019 11:52 AM CREDENTIALS SPECIALIST [place] [id number] KAYLA SHIRA HORACIO :1935 Visit Time:09/11/2019 [...] appoint/instructions Where: [address] [place] [phone] Medications What How Much When Instructions Next [...] Document Reviewed: 10/29/2011 ExitCare?? Patient Information ??[address] InternationalCare, [place]. Moderate Conscious Sedation, Adult, Care After These [...] you are awake and alert. ??? Take lsha-ahs-jevmuyk and prescription medicines only as told by [...] 07/17/2014 Document Revised: 02/28/2017 Document Reviewed: 01/15/2017 [employer] Interactive Patient Education ?? 2019 [employer] Inc. Emergency Awareness and Preventative Care STROKE [...] Assistance with quitting is available by contacting 1-113-DAXTNOW. This is a free resource providing counseling, [...] was given the opportunity to ask questions. Patient/Care Coordination Manager Name: Patient/Care Coordination Manager Signature: Relationship to Patient: Clinician/Hospital Care Coordination Manager Signature: Date: Electronically signed by [facility], [facility] Conversion Tobacco Warehouse Agent Richard at 01/26/2023 9:08 PM CDT documented in this encounter Plan of Treatment Not on file documented as of this encounter Visit Diagnoses Not on filedocumented in this encounter
--- OUTSIDE RECORDS SUMMARY | 2025-09-12 10:04 | XMS_ITS | Encounter Summary ---
Author Organization [employer] ([place], [place], [place], [place], [place]) Address [address] [place] [address] Care Team Providers Care Pharmacy Data Analyst Name Role Phone Unavailable Primary Care Provider Unavailabl e Encounter Details Date Type Department Care Team (Late st Contact Info) Description 09/25/[address] [facility] [place] [address] [place] [address] ProviderPrasanth MD [address] [place] [address] Social History Tobacco Use Types Packs/Day Years Used Date Smoking Tobacco: Never Assessed Sex and Gender Information Value Date Recorded Sex Assigned at Not on file Legal Sex Male 6:49 PM CDT Gender Identity Not on file Sexual Orientation Not on file documented as of this encounter Miscellaneous Notes * Cerner Conversion Note - Prasanth Sanchez MD - 09/25/2019 12:59 PM ELECTROMECHANICAL TECHNOLOGIST Patient Education Materials Follows: Angiogram, Care After [...] use soap and water, use hand straightening press operator. ? Change your bandage as told [...] (urine) clear or pale yellow. ??? Take hnmr-dzn-dzxhruv and prescription medicines only as told by [...] 12/23/2009 Document Revised: 09/20/2017 Document Reviewed: 09/20/2017 Epiclist Interactive Patient Education ? 2019 Epiclist Inc. Groin Site Care Refer to this [...] Document Reviewed: 10/29/2011 ExitCare? Patient Information ?2014 [employer]. Moderate Conscious Sedation, Adult, Care After These [...] you are awake and alert. ??? Take zmhn-urr-bemhrin and prescription medicines only as told by [...] 07/17/2014 Document Revised: 02/28/2017 Document Reviewed: 01/15/2017 ElseSundia MediTech Interactive Patient Education ? 2019 Epiclist Inc. Electronically signed by Carla Shelton Conversion Supervisor Water Softener Service Richard at 01/26/2023 8:58 PM CDT documented in this encounter Plan of Treatment Not on file documented as of this encounter Visit Diagnoses Not on filedocumented in this encounter
--- OUTSIDE RECORDS SUMMARY | 2025-09-12 10:04 | XMS_ITS | Encounter Summary ---
Author Organization [employer] ([place], [place], [place], [place], [place]) Address [address] [place] [address] Care Team Providers Care Carburetor Specialist Name Role Phone Unavailable Primary Care Provider Unavailabl e Encounter Details Date Type Department Care Team (Late st Contact Info) Description 08/04/2020 Transcribed Document [facility] [place] [address] [place] [address] ProviderPrasanth MD [address] [place] [address] Social History Tobacco Use Types [...] at that time. The patient presented to [facility] on [facility] with complaints of midsternal sharp chest pain, radiating in nature to bilateral arms and jaws. He had associated shortness of breath, worsened with exertion. He took a total of 4 nitroglycerin over 45 minutes without relief. CTA revealed gallstones, punctate calcifications throughout the pancreas, bilateral adrenal adenomas, nonobstructing right renal stones, no pulmonary emboli. The patient was transferred to [facility] for higher level of care and cardiac [...] CAD/ prior 5V CABG optimize medical management [facility] 09/2019 revealed patent grafts Thrombosed aortic [...]
--- OUTSIDE RECORDS SUMMARY | 2025-09-12 10:04 | XMS_ITS | Encounter Summary ---
Author Organization [employer] ([place], [place], [place], [place], [place]) Address [address] [place] [address] Care Team Providers Care Blender Operator Name Role Phone Unavailable Primary Care Provider Unavailabl e Encounter Details Date Type Department Care Team (Late st Contact Info) Description 09/11/2019 Transcribed Document [facility] [place] [address] [place] [address] ProviderPrasanth MD [address] [place] [address] Social History Tobacco Use Types Packs/Day Years Used Date Smoking Tobacco: Never Assessed Sex and Gender Information Value Date Recorded Sex Assigned at Not on file Legal Sex Male 6:49 PM CDT Gender Identity Not on file Sexual Orientation Not on file documented as of this encounter Miscellaneous Notes * Cerner Conversion Note - Prasanth Sanchez MD - 09/11/2019 11:49 AM CORRECTION OFFICER REFORMATORY Patient Education Materials Follows: Groin Site Care [...] Document Reviewed: 10/29/2011 ExitCare? Patient Information ?2013 [employer]. Moderate Conscious Sedation, Adult, Care After These [...] you are awake and alert. ??? Take cpar-ggb-czlsrqr and prescription medicines only as told by [...] 07/17/2014 Document Revised: 02/28/2017 Document Reviewed: 01/15/2017 ElseTouchtown Inc. Interactive Patient Education ? 2019 [employer] Inc. documented in this encounter Plan of Treatment Not on file documented as of this encounter Visit Diagnoses Not on filedocumented in this encounter
--- OUTSIDE RECORDS SUMMARY | 2025-09-12 10:04 | XMS_ITS | Encounter Summary ---
Author Organization [employer] ([place], [place], [place], [place], [place]) Address [address] [place] [address] Care Team Providers Care Cadmium Liquor Maker Name Role Phone Unavailable Primary Care Provider Unavailabl e Encounter Details Date Type Department Care Team (Late st Contact Info) Description 11/04/2019 Transcribed Document [facility] [place] [address] [place] [address] ProviderPrasanth MD [address] [place] [address] Social History Tobacco Use Types Packs/Day Years Used Date Smoking Tobacco: Never Assessed Sex and Gender Information Value Date Recorded Sex Assigned at Not on file Legal Sex Male 6:49 PM CDT Gender Identity Not on file Sexual Orientation Not on file documented as of this encounter Miscellaneous Notes * Cerner Conversion Note - Prasanth Sanchez MD - 11/04/2019 10:27 PM ELECTRODYNAMICIST DATE OF ADMISSION: 11/04/2019 PRIMARY CARE PHYSICIAN: Dr. Marcelino Caldera, [facility]. REFERRING PHYSICIAN: Dr. Beckman, [facility] , 1935. CURRENT COMPLAINT: Falls, dizziness, irregular heartbeat. HISTORY OF PRESENT ILLNESS: David Cormier is an 84-year-old man, , living in the [facility], who recently underwent a transcatheter [...] children. He and his live in the [facility]. 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 [...] anticipate likely permanent pacemaker placement on 11/05. /[id number] MD RHIANNON Martínez/AQ / MGAmaury / MODL CC: Marcelino Waddles, MD NezaMD Michael Medley MD John Sartini Electronically signed by [facility], [facility] Conversion C Java Developer Cerner at 01/26/2023 8:53 PM CDT documented in this encounter Plan of Treatment Not on file documented as of this encounter Visit Diagnoses Not on filedocumented in this encounter
--- OUTSIDE RECORDS SUMMARY | 2025-09-12 10:04 | XMS_ITS | Encounter Summary ---
Author Organization [employer] ([place], [place], [place], [place], [place]) Address [address] [place] [address] Care Team Providers Care Kraft Digester Operator Name Role Phone Unavailable Primary Care Provider Unavailabl e Encounter Details Date Type Department Care Team (Late st Contact Info) Description 11/14/[address] [facility] [place] [facility] [place] [address] ProviderPrasanth MD [facility] [address] Social History Tobacco Use Types Packs/Day Years Used Date Smoking Tobacco: Never Assessed Sex and Gender Information Value Date Recorded Sex Assigned at Not on file Legal Sex Male 6:49 PM CDT Gender Identity Not on file Sexual Orientation Not on file documented as of this encounter Miscellaneous Notes * Cerner Conversion Note - Prasanth Sanchez MD - 11/14/2018 8:31 AM OPERATIONS RESEARCH GROUP MANAGER DATE OF STUDY: 11/14/2018 ELECTROPHYSIOLOGY RADIOFREQUENCY ABLATION REPORT PREOPERATIVE DIAGNOSIS: Symptomatic atrial flutter. PROCEDURE PERFORMED: Electrophysiology evaluation and radiofrequency ablation. DESCRIPTION OF PROCEDURE: The patient was brought to the EP laboratory in atrial flutter. After the aseptic draping of the femoral regions, the right femoral triangle was infiltrated with 1% lidocaine locally. A 6, 7, and 8-Russian Daig septal sheaths were introduced into the right femoral vein. A 7-Russian Duo-Decapolar catheter was advanced along the lateral right atrial wall and into the coronary sinus. A 6-Russian Quadripolar catheter was placed at the atrial septum. This catheter was later used for pacing. Electrogram analysis demonstrated a counter-clockwise atrial flutter at a cycle length of 200 msec. Next, using the Carto three-dimensional mapping system in conjunction with a BiosStatusNet Dubois F Curve irrigated catheter, radiofrequency energy at 40 zheng was delivered across the tricuspid valve isthmus with dissolution of local atrial electrograms and ultimate pentecostal of normal sinus rhythm. Bidirectional block across [...] 2. Successful tricuspid valve isthmus ablation with pentecostal of normal sinus rhythm and development of bidirectional isthmus block. RECOMMENDATIONS: Routine followup. Dionicio Soliman M.D. Dict: 11/14/2018 08:31:48 Trans: 11/14/2018 10:53:06 CC1: Dionicio Soliman M.D. documented in this encounter Plan of Treatment Not on file documented as of this encounter Visit Diagnoses Not on filedocumented in this encounter
--- OUTSIDE RECORDS SUMMARY | 2025-09-12 10:04 | XMS_ITS | Encounter Summary ---
Author Organization [employer] ([place], [place], [place], [place], [place]) Address [address] [place] [address] Care Team Providers Care Skin Care Therapist Name Role Phone Unavailable Primary Care Provider Unavailabl e Encounter Details Date Type Department Care Team (Late st Contact Info) Description 11/04/2019 Transcribed Document [facility] [place] [address] [place] [address] ProviderPrasanth MD [address] [place] [address] Social History Tobacco Use Types Packs/Day Years Used Date Smoking Tobacco: Never Assessed Sex and Gender Information Value Date Recorded Sex Assigned at Not on file Legal Sex Male 6:49 PM CDT Gender Identity Not on file Sexual Orientation Not on file documented as of this encounter Miscellaneous Notes * Cerner Conversion Note - Prasanth ProviderMD - 11/04/2019 10:58 PM BACKER UP ED Event Note Entered On: 11/04/2019 22:59 [...]
--- OUTSIDE RECORDS SUMMARY | 2025-09-12 10:04 | XMS_ITS | Encounter Summary ---
Author Organization [employer] ([place], [place], [place], [place], [place]) Address [address] [place] [address] Care Team Providers Care Pit Shoveler Name Role Phone Unavailable Primary Care Provider Unavailabl e Encounter Details Date Type Department Care Team (Late st Contact Info) Description 11/14/2018 Transcribed Document [facility] [place] [address] [place] [address] ProviderPrasanth MD [address] [place] [address] Social History Tobacco Use Types Packs/Day Years Used Date Smoking Tobacco: Never Assessed Sex and Gender Information Value Date Recorded Sex Assigned at Not on file Legal Sex Male 6:49 PM CDT Gender Identity Not on file Sexual Orientation Not on file documented as of this encounter Miscellaneous Notes * Cerner Conversion Note - Prasanth ProviderMD - 11/14/2018 11:32 AM SPECIAL EDUCATION PARAEDUCATOR Nursing Discharge Summary Entered On: 11/14/2018 11:33 EST Performed On: 11/14/2018 11:32 EST by RADHA TERRAZAS typewriter mechanic Documentation Patient Disposition, General : Discharge Discharge [...] 11/14/2018 12:32 EST Electronically signed by [facility] Conversion Division Sales Manager Cerner at 01/26/2023 9:08 PM CDT documented in this encounter Plan of Treatment Not on file documented as of this encounter Visit Diagnoses Not on filedocumented in this encounter
--- OUTSIDE RECORDS SUMMARY | 2025-09-12 10:04 | XMS_ITS | Encounter Summary ---
Author Organization [employer] ([place], [place], [place], [place], [place]) Address [address] [place] [address] Care Team Providers Care Cattle Care Worker Name Role Phone Unavailable Primary Care Provider Unavailabl e Encounter Details Date Type Department Care Team (Late st Contact Info) Description 11/04/2019 Transcribed Document [facility] [place] [address] [place] [address] ProviderPrasanth MD [address] [place] [address] Social History Tobacco Use Types Packs/Day Years Used Date Smoking Tobacco: Never Assessed Sex and Gender Information Value Date Recorded Sex Assigned at Not on file Legal Sex Male 6:49 PM CDT Gender Identity Not on file Sexual Orientation Not on file documented as of this encounter Miscellaneous Notes * Cerner Conversion Note - Prasanth ProviderMD - 11/04/2019 7:33 PM VESSEL CREW MEMBER ED Assessment Entered On: 11/04/2019 21:44 EST [...] Communication Barrier : None Primary Language : Nepali Any Spiritual/Cultural Needs or Requests : No [...] 21:37 EST Respiratory Respiratory Assessment WDL : [facility] MARIA TERESA KAT RN - 11/04/2019 21:37 [...]
--- OUTSIDE RECORDS SUMMARY | 2025-09-12 10:04 | XMS_ITS | Encounter Summary ---
Author Organization [employer] ([place], [place], [place], [place], [place]) Address [address] [place] [address] Care Team Providers Care Anglesmith Name Role Phone Unavailable Primary Care Provider Unavailabl e Encounter Details Date Type Department Care Team (Late st Contact Info) Description 09/11/2019 Transcribed Document [facility] [place] [address] [place] [address] ProviderPrasanth MD [address] [place] [address] Social History Tobacco Use Types Packs/Day Years Used Date Smoking Tobacco: Never Assessed Sex and Gender Information Value Date Recorded Sex Assigned at Not on file Legal Sex Male 6:49 PM CDT Gender Identity Not on file Sexual Orientation Not on file documented as of this encounter Miscellaneous Notes * Cerner Conversion Note - Prasanth ProviderMD - 09/11/2019 6:28 AM MANUFACTURING MAINTENANCE TECHNICIAN Pre Procedure Adult Entered On: 09/11/2019 6:39 EST Performed On: 09/11/2019 6:28 EST by AV KING RN Height and Weight, Clinical Dosing Height Source : Stated Height Entry Format : [place] Height, Feet : 5 ft(Converted to: 152 cm, 60 Inch) Height, Inches : 10 Inch(Converted to: 0 ft 10 Inch, 25.40 cm) Clinical Height : 177.8 cm Weight Source : Standing scale Weight Entry Format : [place] Clinical Dosing Weight : 92.27 kg Weight, Pounds : 203 lb Body Surface Area (BSA) : 2.1 m2 Body Mass Index : 29.2 kg/m2 (HI) Conde Body Weight : 72 kg AV KING [...] AV KING RN - 09/11/2019 6:28 EST [place] Suicide Severity Rating Scale (C-SSRS) CSSRS Past [...] #2 Relationship : .. Primary Language : Emirati Communication Barrier : None AV KING RN [...] Scale Risk Level : 0-24 Low Risk [place] Fall Interventions : Adequate lighting, Assistive devices [...]
--- OUTSIDE RECORDS SUMMARY | 2025-09-12 10:04 | XMS_ITS | Encounter Summary ---
Author Organization [employer] ([place], [place], [place], [place], [place]) Address [address] [place] [address] Care Team Providers Care Master Sheet Clerk Name Role Phone Unavailable Primary Care Provider Unavailabl e Encounter Details Date Type Department Care Team (Late st Contact Info) Description 09/11/2019 Transcribed Document [facility] [place] [facility] [place] [address] ProviderPrasanth MD [address] [place] [address] Social History Tobacco Use Types Packs/Day Years Used Date Smoking Tobacco: Never Assessed Sex and Gender Information Value Date Recorded Sex Assigned at Not on file Legal Sex Male 6:49 PM CDT Gender Identity Not on file Sexual Orientation Not on file documented as of this encounter Miscellaneous Notes * Cerner Conversion Note - Prasanth Sanchez MD - 09/11/2019 8:57 AM JOURNEYMAN MACHINIST DATE OF SERVICE: 09/11/2019 PROCEDURE: Left heart [...] stenosis with severe ventricular hypertrophy. PROCEDURE: RFA, 5-Omani sheath, 5-Omani Denny multipack, Mynx assisted manual compression hemostasis. No adverse events. FINDINGS: Aortic pressure was 130/70. The valve was not crossed. The pressure contour of the aorta demonstrated significant delayed upstroke consistent with severe aortic stenosis. ANGIOGRAPHY: Ejection fraction normal by echocardiogram. The ascending aortography demonstrated dilation of the ascending aorta with tortuosity of the subclavian arteries. IONE CIRCULATION: Right coronary artery known to be [...] the cardiac surgeon, Dr. Kyle for AVR. /[id number] MD JOSE ANTONIO Moore/AQ / JOSE ANTONIO / MODL /[id number] documented in this encounter Plan of Treatment Not on file documented as of this encounter Visit Diagnoses Not on filedocumented in this encounter
--- OUTSIDE RECORDS SUMMARY | 2025-09-12 10:05 | XMS_ITS | Encounter Summary ---
Author Organization [employer] ([place], [place], [place], [place], [place]) Address [address] [place] [address] Care Team Providers Care Glassware Selector Name Role Phone Unavailable Primary Care Provider Unavailabl e Encounter Details Date Type Department Care Team (Late st Contact Info) Description 06/02/2021 Transcribed Document [facility] [place] Family Medicine [address] [place] [address] ProviderPrasanth MD [address] [place] [address] Social History Tobacco Use Types [...] 06/02/2021 11:32 EDT Electronically signed by Nikita [facility] Conversion Director Of Strategic Sales Cerner at 01/26/2023 9:10 PM CDT documented in this encounter Plan of Treatment Not on file documented as of this encounter Visit Diagnoses Not on filedocumented in this encounter
--- OUTSIDE RECORDS SUMMARY | 2025-09-12 10:05 | XMS_ITS | Encounter Summary ---
Author Organization [employer] ([place], [place], [place], [place], [place]) Address [address] [place] [address] Care Team Providers Care Medical Office Coordinator Name Role Phone Unavailable Primary Care Provider Unavailabl e Encounter Details Date Type Department Care Team (Late st Contact Info) Description 06/03/2021 Transcribed Document [facility] [place] [address] [place] [address] ProviderPrasanth MD [address] [place] [address] Social History Tobacco Use Types [...]
--- OUTSIDE RECORDS SUMMARY | 2025-09-12 10:05 | XMS_ITS | Encounter Summary ---
Author Organization [employer] ([place], [place], [place], [place], [place]) Address [address] [place] [address] Care Team Providers Care Radio Frequency Design Engineer Name Role Phone Unavailable Primary Care Provider Unavailabl e Encounter Details Date Type Department Care Team (Late st Contact Info) Description 06/03/[address] [facility] [place] [address] [place] [address] ProviderPrasanth MD [address] [place] [address] Social History Tobacco Use Types Packs/Day Years Used Date Smoking Tobacco: Never Assessed Sex and Gender Information Value Date Recorded Sex Assigned at Not on file Legal Sex Male 6:49 PM CDT Gender Identity Not on file Sexual Orientation Not on file documented as of this encounter Miscellaneous Notes * Cerner Conversion Note - Historical ProviderMD - 06/03/2021 11:03 AM CDT ARTILLERY METEOROLOGICAL MAN Attempt to Treat Entered On: 06/03/2021 11:03 [...]
--- OUTSIDE RECORDS SUMMARY | 2025-09-12 10:05 | XMS_ITS | Encounter Summary ---
Author Organization [employer] ([place], [place], [place], [place], [place]) Address [address] [place] [address] Care Team Providers Care Painter Name Role Phone Unavailable Primary Care Provider Unavailabl e Encounter Details Date Type Department Care Team (Late st Contact Info) Description 06/03/2021 Transcribed Document [facility] [place] Family Medicine [address] [place] [address] ProviderPrasanth MD [address] [place] [address] Social History Tobacco Use Types [...] Reason for Discharge : Other: Pt at [facility]. Discharged to, Therapy : Other: Pt [...]
--- OUTSIDE RECORDS SUMMARY | 2025-09-12 10:05 | XMS_ITS | Encounter Summary ---
Author Organization [employer] ([place], [place], [place], [place], [place]) Address [address] [place] [address] Care Team Providers Care Marketing Services Specialist Name Role Phone Unavailable Primary Care Provider Unavailabl e Encounter Details Date Type Department Care Team (Late st Contact Info) Description 08/05/2020 Transcribed Document [facility] [place] [address] [place] [address] ProviderPrasanth MD [address] [place] [address] Social History Tobacco Use Types [...] On: 08/05/2020 17:35 EDT by MARYBETH MORAN Rn-Test Carrier Initial Assessment I Previously Documented Living [...] Listed? : Yes Medical Durable Power of Coin Counter And Wrapper Name : Legal Guardian : No MARYBETH MORAN Rn-Test Carrier - 08/05/2020 17:35 EDT Initial Assessment II Sensory and Motor Deficits : None, Weakness Current Home Treatments and Equipment : None MARYBETH MORAN Rn-Test Carrier - 08/05/2020 17:35 EDT Discharge Needs I Anticipated Discharge Date : 08/06/2020 EDT Anticipated Discharge To, CM : Home with family care Current Home Treatment/Equipment : Current Home Treatment/Equipment No qualifying data available. Post Acute/Home Treatments : None Documentation Status Complete : Yes MARYBETH MORAN Rn-Test Carrier - 08/05/2020 17:35 EDT Discharge Needs II Professional Skilled Services : Professional Skilled Services No qualifying data available. Needs Assistance with Transportation : No Discharge Options Discussed with Patient : Discharge transportation, Outpatient services MARYBETH MORAN Rn-Test Carrier - 08/05/2020 17:35 EDT Narrative Note Narrative Note : Patient is I-ADL, will drive home, anticipate dc tomorrow with Eliquis or coumadin. MARYBETH MORAN Rn-Test Carrier - 08/05/2020 17:35 EDT documented in this encounter Plan of Treatment Not on file documented as of this encounter Visit Diagnoses Not on filedocumented in this encounter
--- OUTSIDE RECORDS SUMMARY | 2025-09-12 10:05 | XMS_ITS | Encounter Summary ---
Author Organization [employer] ([place], [place], [place], [place], [place]) Address [address] [place] [address] Care Team Providers Care Lip And Gate Builder Name Role Phone Unavailable Primary Care Provider Unavailabl e Encounter Details Date Type Department Care Team (Late st Contact Info) Description 06/03/2021 Transcribed Document [facility] [place] [address] [place] [address] ProviderPrasanth MD [address] [place] [address] Social History Tobacco Use Types [...] On: 06/03/2021 15:57 EDT by EMILIE MOON RN-[employer] Initial Assessment I Previously Documented Living Environment : No qualifying data available. Living Situation : Home Patient Lives With : Spouse Employment/Vocation : Retired Emergency Contact #1 : Rosa Elena Bustamante Emergency Contact #1 Phone Number : [phone] Emergency Contact #1 Relationship : Emergency Contact #2 : na Emergency Contact #2 Phone Number : na Emergency Contact #2 Relationship : na Enter Doctors Name : Nicole Juan Does Patient have PCP Listed? : Yes Medical Durable Power of Seam Sewer Name : Legal Guardian : No EMILIE MOON RN-[employer] - 06/03/2021 15:57 EDT Initial Assessment II Sensory and Motor Deficits : None, Weakness Current Home Treatments and Equipment : None EMILIE MOON RN-[employer] - 06/03/2021 15:57 EDT Discharge Needs I Anticipated Discharge Date : 06/06/2021 EDT Anticipated Discharge To, CM : Home with family care, Home with home health Current Home Treatment/Equipment : Current Home Treatment/Equipment No qualifying data available. Documentation Status Complete : Yes EMILIE MOON RN-[employer] - 06/03/2021 15:57 EDT Discharge Needs II Professional Skilled Services : Professional Skilled Services No qualifying data available. Needs Assistance with Transportation : No Discharge Options Discussed with Patient : Discharge transportation, DME, Home Health Patient Discharge Goal : Home EMILIE MOON RN-[employer] - 06/03/2021 15:57 EDT Narrative Note Narrative [...] pain. Consults: Cardiology, Neurology Patient lives in [place] with his Rosa Elena [phone]. His PCP is Dr. Martinez. Patient is ADL independent, drives and very active at home. No prior rehab stay, home health services, home oxygen or DME. will transport at discharge. DCP: Anticipate patient will discharge home with . CM will continue to follow for any needed referrals. EMILIE MOON RN-[employer] - 06/03/2021 15:57 EDT documented in this encounter Plan of Treatment Not on file documented as of this encounter Visit Diagnoses Not on filedocumented in this encounter
--- OUTSIDE RECORDS SUMMARY | 2025-09-12 10:05 | XMS_ITS | Encounter Summary ---
Author Organization [employer] ([place], [place], [place], [place], [place]) Address [address] [place] [address] Care Team Providers Care Pie Crimping Machine Operator Name Role Phone Unavailable Primary Care Provider Unavailabl e Encounter Details Date Type Department Care Team (Late st Contact Info) Description 08/06/2020 Transcribed Document [facility] [place] [address] [place] [address] ProviderPrasanth MD [address] [place] [address] Social History Tobacco Use Types [...] On: 08/06/2020 9:04 EDT by ALVINA GIVENS RN-Hand Scudder Final Discharge Planning Discharge Arrangements : Patient [...] : Yes Discharge To Care Management : Home/Residential/Senior Living or Self Care -01 ALVINA GIVENS RN-Hand Scudder - 08/06/2020 9:04 EDT Final Narrative Note Final Narrative Note : pt will dc home. was given eliquis card/coupon for free 30 day trial. no further cm needs. ALVINA GIVENS RN-Hand Scudder - 08/06/2020 9:04 EDT Electronically signed by Nikita [facility] Conversion Account Resolution Specialist Cerner at 01/26/2023 8:57 PM CDT documented in this encounter Plan of Treatment Not on file documented as of this encounter Visit Diagnoses Not on filedocumented in this encounter
--- OUTSIDE RECORDS SUMMARY | 2025-09-12 10:05 | XMS_ITS | Encounter Summary ---
Author Organization [employer] ([place], [place], [place], [place], [place]) Address [address] [place] [address] Care Team Providers Care Offset Press Operator Apprentice Name Role Phone Unavailable Primary Care Provider Unavailabl e Encounter Details Date Type Department Care Team (Late st Contact Info) Description 09/26/[address] [facility] [place] [address] [place] [address] ProviderPrasanth MD [address] [place] [address] Social History Tobacco Use Types Packs/Day Years Used Date Smoking Tobacco: Never Assessed Sex and Gender Information Value Date Recorded Sex Assigned at Not on file Legal Sex Male 6:49 PM CDT Gender Identity Not on file Sexual Orientation Not on file documented as of this encounter Miscellaneous Notes * Cerner Conversion Note - Prasanth ProviderMD - 09/26/2019 11:20 AM CHEESEMAKING LABORER Initial Discharge Planning Entered On: 09/26/2019 11:23 EST Performed On: 09/26/2019 11:20 EST by JAIMEE CARTAGENA Vacuum Cleaner Assembler-Client Advocate Initial Assessment I Previously Documented Living Environment [...] Is Guardianship Needed : No JAIMEE CARTAGENA Vacuum Cleaner Assembler-Client Advocate - 09/26/2019 11:20 EST Initial Assessment II Sensory and Motor Deficits : None Current Home Treatments and Equipment : None JAIMEE CARTAGENA Vacuum Cleaner Assembler-Client Advocate - 09/26/2019 11:20 EST Discharge Needs I Anticipated Discharge To, CM : Home independently Current Home Treatment/Equipment : Current Home Treatment/Equipment No qualifying data available. Post Acute/Home Treatments : None Documentation Status Complete : Yes JAIMEE CARTAGENA Vacuum Cleaner Assembler-Client Advocate - 09/26/2019 11:20 EST Discharge Needs II Professional Skilled Services : Professional Skilled Services No qualifying data available. Needs Assistance with Transportation : No Discharge Options Discussed with Patient : Discharge transportation, Home Health JAIMEE CARTAGENA Vacuum Cleaner Assembler-Client Advocate - 09/26/2019 11:20 EST Narrative Note Narrative [...] CM will continue to follow. JAIMEE CARTAGENA Vacuum Cleaner Assembler-Client Advocate - 09/26/2019 11:20 EST documented in this encounter Plan of Treatment Not on file documented as of this encounter Visit Diagnoses Not on filedocumented in this encounter
--- OUTSIDE RECORDS SUMMARY | 2025-09-12 10:05 | XMS_ITS | Encounter Summary ---
Author Organization [employer] ([place], [place], [place], [place], [place]) Address [address] [place] [address] Care Team Providers Care Deployment Engineer Name Role Phone Unavailable Primary Care Provider Unavailabl e Encounter Details Date Type Department Care Team (Late st Contact Info) Description 08/04/2020 Transcribed Document [facility] [place] Family Medicine [address] [place] [address] ProviderPrasanth MD [address] [place] [address] Social History Tobacco Use Types [...] 08/04/2020 17:01 EDT Electronically signed by Nikita [facility] Conversion Internet Marketer Cerner at 01/26/2023 9:01 PM CDT documented in this encounter Plan of Treatment Not on file documented as of this encounter Visit Diagnoses Not on filedocumented in this encounter
--- OUTSIDE RECORDS SUMMARY | 2025-09-12 10:05 | XMS_ITS | Encounter Summary ---
Author Organization [employer] ([place], [place], [place], [place], [place]) Address [address] [place] [address] Care Team Providers Care Auger Mill Operator Name Role Phone Unavailable Primary Care Provider Unavailabl e Encounter Details Date Type Department Care Team (Late st Contact Info) Description 06/02/2021 Transcribed Document [facility] [place] [address] [place] [address] ProviderPrasanth MD [address] [place] [address] Social History Tobacco Use Types [...] On: 06/02/2021 12:40 EDT by Chang Medrano, Cupola Repairer-Student Nurse Teaching/Learning Assessment Barriers To Learning : None evident Individuals Taught : Patient Readiness to Learn : Cooperative Readiness to Learn : Explanation, Teach back method Learning Style Preferences Patient : Verbal explanation Learning Style Preferences Family : Verbal explanation Chang Medrano, Cupola Repairer-Student Nurse - 06/02/2021 15:51 EDT Education Topics: Stroke (By Discharge) Stroke Education Handouts Given *Q : Yes Chang Medrano Cupola Repairer-Student Nurse - 06/02/2021 15:51 EDT Stroke Education Materials Given-Grid Activation of EMS *Q : Verbalizes understanding Follow-up Care After Discharge *Q : Verbalizes understanding Medications prescribed at DC *Q : Verbalizes understanding Risk Factors for Stroke *Q : Verbalizes understanding Warning S&S of Stroke *Q : Verbalizes understanding Chang Medrano, Cupola Repairer-Student Nurse - 06/02/2021 15:51 EDT Individualized Stroke Risk Factors *Q : Coronary artery disease, Hypertension/High blood pressure Chang Medrano, Cupola Repairer-Student Nurse - 06/02/2021 15:51 EDT Electronically signed by Nikita, [facility] Conversion Home Economist Cerner at 01/26/2023 9:10 PM CDT documented in this encounter Plan of Treatment Not on file documented as of this encounter Visit Diagnoses Not on filedocumented in this encounter
--- OUTSIDE RECORDS SUMMARY | 2025-09-12 10:05 | XMS_ITS | Encounter Summary ---
Author Organization [employer] ([place], [place], [place], [place], [place]) Address [address] [place] [address] Care Team Providers Care Configurator Name Role Phone Unavailable Primary Care Provider Unavailabl e Encounter Details Date Type Department Care Team (Late st Contact Info) Description 06/04/2021 Transcribed Document [facility] [place] [address] [place] [address] ProviderPrasanth MD [address] [place] [address] Social History Tobacco Use Types [...]
--- OUTSIDE RECORDS SUMMARY | 2025-09-12 10:05 | XMS_ITS | Encounter Summary ---
Author Organization [employer] ([place], [place], [place], [place], [place]) Address [address] [place] [address] Care Team Providers Care Flitch Hanger Name Role Phone Unavailable Primary Care Provider Unavailabl e Encounter Details Date Type Department Care Team (Late st Contact Info) Description 10/26/2019 Transcribed Document [facility] [place] [address] [place] [address] ProviderPrasanth MD [address] [place] [address] Social History Tobacco Use Types Packs/Day Years Used Date Smoking Tobacco: Never Assessed Sex and Gender Information Value Date Recorded Sex Assigned at Not on file Legal Sex Male 6:49 PM CDT Gender Identity Not on file Sexual Orientation Not on file documented as of this encounter Miscellaneous Notes * [employer] Conversion Note - Historical ProviderMD - 10/26/2019 4:21 PM FAN MAIL CLERK Education-General Entered On: 10/30/2019 4:52 EST Performed [...]
--- OUTSIDE RECORDS SUMMARY | 2025-09-12 10:05 | XMS_ITS | Encounter Summary ---
Author Organization [employer] ([place], [place], [place], [place], [place]) Address [address] [place] [address] Care Team Providers Care Transition Advisor Name Role Phone Unavailable Primary Care Provider Unavailabl e Encounter Details Date Type Department Care Team (Late st Contact Info) Description 08/06/2020 Transcribed Document [facility] [place] [address] [place] [address] ProviderPrasanth MD [address] [place] [address] Social History Tobacco Use Types [...] 08/06/2020 4:10 EDT Electronically signed by Nikita [facility] Conversion Meat Pumper Cerner at 01/26/2023 8:54 PM CDT documented in this encounter Plan of Treatment Not on file documented as of this encounter Visit Diagnoses Not on filedocumented in this encounter
--- OUTSIDE RECORDS SUMMARY | 2025-09-12 10:05 | XMS_ITS | Encounter Summary ---
Author Organization [employer] ([place], [place], [place], [place], [place]) Address [address] [place] [address] Care Team Providers Care Obstetrics And Gynecology Professor Name Role Phone Unavailable Primary Care Provider Unavailabl e Encounter Details Date Type Department Care Team (Late st Contact Info) Description 08/06/2020 Transcribed Document [facility] [place] [address] [place] [address] ProviderPrasanth MD [address] [place] [address] Social History Tobacco Use [...] a heart-healthy eating plan. Medicines ??? Take hsej-uke-pvdcxjh and prescription medicines only as told by [...] 09/26/2006 Document Revised: 10/08/2019 Document Reviewed: 10/08/2019 VODECLIC Patient Education ? 2020 [employer]. Pharmacology Aspirin and Your Heart Aspirin is [...] The two forms of aspirin are: ? Cqa-zqcicyq-asmmzy.This type of aspirin does not have a coating and is absorbed quickly. This type of aspirin also comes in a chewable form. ? Enteric-coated. This type of aspirin has a coating that releases the medicine very slowly. Enteric-coated aspirin might cause less stomach upset than cbx-sajrhog-fuhmhe aspirin. This type of aspirin should not [...] 09/08/2009 Document Revised: 07/27/2018 Document Reviewed: 07/27/2018 [employer]and[employer] Patient Education ? 2020 [employer]. Preventive Health Venous Thromboembolism Prevention Venous thromboembolism [...] for Disease Control and Prevention: www.cdc.gov ??? [place] Heart Association: www.heart.org Get help right away [...] Reviewed: 12/04/2019 Elsevier Patient Education ? 2019 [employer] Procedures Mitral Valve Replacement Mitral valve [...] including vitamins, herbs, eye drops, creams, and wtfd-ecx-ivbinok medicines. ??? Any problems you or family [...] tells you to take them. ? Taking smds-eof-usubkrn medicines, vitamins, herbs, and supplements. Staying hydrated [...] 01/27/2006 Document Revised: 06/19/2019 Document Reviewed: 06/19/2019 VODECLIC Patient Education ? 2020 [employer]. documented in this encounter Plan of Treatment Not on file documented as of this encounter Visit Diagnoses Not on filedocumented in this encounter
--- OUTSIDE RECORDS SUMMARY | 2025-09-12 10:05 | XMS_ITS | Encounter Summary ---
Author Organization [employer] ([place], [place], [place], [place], [place]) Address [address] [place] [address] Care Team Providers Care Joiner Name Role Phone Unavailable Primary Care Provider Unavailabl e Encounter Details Date Type Department Care Team (Late st Contact Info) Description 06/03/2021 Transcribed Document [facility] [place] [facility] [place] [address] ProviderPrasanth MD [address] [place], [...] Diagnostic Results Radiology Results (Last 48 hours) [id number] -- 06/02/2021 12:02 CR Chest 2 Vws [...] Lymph # 1.96 x10(3)/uL 06/02/2021 21:54 EDT [place] % 9.8 % (High) 06/03/2021 03:08 EDT [place] % 10.5 % (High) 06/02/2021 21:54 EDT [place] # 0.66 K/uL 06/03/2021 03:08 EDT [place] # 0.63 K/uL 06/02/2021 21:54 EDT Eos [...] MD-INT 06/02/2021 14:11 EDT Electronically signed by [facility], [facility] Conversion Draw Frame Tender Cerner at 01/26/2023 8:54 PM CDT documented in this encounter Plan of Treatment Not on file documented as of this encounter Visit Diagnoses Not on filedocumented in this encounter
--- OUTSIDE RECORDS SUMMARY | 2025-09-12 10:05 | XMS_ITS | Encounter Summary ---
Author Organization [employer] ([place], [place], [place], [place], [place]) Address [address] [place] [address] Care Team Providers Care Cab Supervisor Name Role Phone Unavailable Primary Care Provider Unavailabl e Encounter Details Date Type Department Care Team (Late st Contact Info) Description 08/04/2020 Transcribed Document [facility] [place] [address] [place] [address] ProviderPrasanth MD [address] [place] [address] Social History Tobacco Use Types [...]
--- OUTSIDE RECORDS SUMMARY | 2025-09-12 10:05 | XMS_ITS | Encounter Summary ---
Author Organization [employer] ([place], [place], [place], [place], [place]) Address [address] [place] [address] Care Team Providers Care Dairy Feed Sales Consultant Name Role Phone Unavailable Primary Care Provider Unavailabl e Encounter Details Date Type Department Care Team (Late st Contact Info) Description 06/03/2021 Transcribed Document [facility] [place] [facility] [address] ProviderPrasanth MD [address] [place] [address] Social History Tobacco Use Types [...] Associated Diagnoses: None Author: BINH NORIEGA NP [facility] CARDIOLOGY PROGRESS NOTE: DIAGNOSIS: 1. Elevated [...] No mass/thrombi noted per TTE - Consider VITRO with recurrent symptoms 5. SSS - s/p [...] Domingo for Friday 06/08. Electronically signed by Carla Shelton Conversion Medical And Scientific Illustrator Richard at 01/26/2023 8:53 PM CDT documented in this encounter Plan of Treatment Not on file documented as of this encounter Visit Diagnoses Not on filedocumented in this encounter
--- OUTSIDE RECORDS SUMMARY | 2025-09-12 10:05 | XMS_ITS | Encounter Summary ---
Author Organization [employer] ([place], [place], [place], [place], [place]) Address [address] [place] [address] Care Team Providers Care Tile Mason Name Role Phone Unavailable Primary Care Provider Unavailabl e Encounter Details Date Type Department Care Team (Late st Contact Info) Description 08/06/2020 Transcribed Document [facility] [place] Family Medicine [address] [place] [address] ProviderPrasanth MD [address] [place], [place] [id number] Social History Tobacco Use Types Packs/Day Years [...] Insurance 1 Health Plan: MEDICARE Policy Number: [id number] Authorization Number: Insurance Primary Name : MEDICARE Policy Number: [id number] Historical Authorization Comments-Primary : No Authorization Comments Found DIVINA HUGHES Rn-Utilization Review - 08/06/2020 9:30 EDT documented in this encounter Plan of Treatment Not on file documented as of this encounter Visit Diagnoses Not on filedocumented in this encounter
--- OUTSIDE RECORDS SUMMARY | 2025-09-12 10:05 | XMS_ITS | Encounter Summary ---
Author Organization [employer] ([place], [place], [place], [place], [place]) Address [address] [place] [address] Care Team Providers Care Hub Bander Name Role Phone Unavailable Primary Care Provider Unavailabl e Encounter Details Date Type Department Care Team (Late st Contact Info) Description 06/04/2021 Transcribed Document [facility] [place] [address] [place] [address] ProviderPrasanth MD [address] [place] [address] Social History Tobacco Use Types [...] On: 06/04/2021 15:42 EDT by Chang Medrano, Drafting Clerk-Student Nurse Discharge Documentation Discharge Date/Time : 06/04/2021 [...] Discharge, Comment : [facility] to their [facility] at [facility] to recieve a months worth of free samples of Eliquis to take since the patient had said he would not pay for Eliquis due to the smith. He galindo use the free samples until he se Dr. Layne on 06/09 and discusses with him whether or not to continue the Eliquis. Chang Medrano, Drafting Clerk-Student Nurse - 06/04/2021 15:42 EDT Electronically signed by Nikita [facility] Conversion Model Dresser Cerner at 01/26/2023 8:54 PM CDT documented in this encounter Plan of Treatment Not on file documented as of this encounter Visit Diagnoses Not on filedocumented in this encounter
--- OUTSIDE RECORDS SUMMARY | 2025-09-12 10:05 | XMS_ITS | Encounter Summary ---
Author Organization [employer] ([place], [place], [place], [place], [place]) Address [address] [place] [address] Care Team Providers Care Manager Economic Name Role Phone Unavailable Primary Care Provider Unavailabl e Encounter Details Date Type Department Care Team (Late st Contact Info) Description 06/03/2021 Transcribed Document [facility] [place] [address] [place] [address] ProviderPrasanth MD [address] [place] [address] Social History Tobacco Use Types [...]
--- OUTSIDE RECORDS SUMMARY | 2025-09-12 10:05 | XMS_ITS | Encounter Summary ---
Author Organization [employer] ([place], [place], [place], [place], [place]) Address [address] [place] [address] Care Team Providers Care Flange Turner Name Role Phone Unavailable Primary Care Provider Unavailabl e Encounter Details Date Type Department Care Team (Late st Contact Info) Description 06/03/2021 Transcribed Document [facility] [place] [address] [place] [address] ProviderPrasanth MD [address] [place] [address] Social History Tobacco Use Types [...] On: 06/03/2021 9:00 EDT by Chang Medrano, Computer Hardware Engineer-Student Nurse NIH Stroke Scale *Q NIH [...] NIH Scale Score : 0 Chang Medrano, Computer Hardware Engineer-Student Nurse - 06/03/2021 7:31 EDT Electronically signed by Filiberto Shelton Conversion Wire Communications Engineer Cerner at 01/26/2023 8:56 PM CDT documented in this encounter Plan of Treatment Not on file documented as of this encounter Visit Diagnoses Not on filedocumented in this encounter
--- OUTSIDE RECORDS SUMMARY | 2025-09-12 10:05 | XMS_ITS | Encounter Summary ---
Author Organization [employer] ([place], [place], [place], [place], [place]) Address [address] [place] [address] Care Team Providers Care Videotape Recording Engineer Name Role Phone Unavailable Primary Care Provider Unavailabl e Encounter Details Date Type Department Care Team (Late st Contact Info) Description 08/05/2020 Transcribed Document [facility] [place] [address] [place] [address] ProviderPrasanth MD [address] [place] [address] Social History Tobacco Use Types Packs/Day Years Used Date Smoking Tobacco: Never Assessed Sex and Gender Information Value Date Recorded Sex Assigned at Not on file Legal Sex Male 6:49 PM CDT Gender Identity Not on file Sexual Orientation Not on file documented as of this encounter Miscellaneous Notes * Cerner Conversion Note - Historical ProviderMD - 08/05/2020 2:00 AM CDT Carpet Jack Details Entered On: 08/05/2020 1:07 EDT Performed On: 08/05/2020 2:00 EDT by Tish Calvillo Rn Order Details Order Detail : N/A Tish Calvillo Rn - 08/05/2020 1:07 EDT documented in this encounter Plan of Treatment Not on file documented as of this encounter Visit Diagnoses Not on filedocumented in this encounter
--- OUTSIDE RECORDS SUMMARY | 2025-09-12 10:05 | XMS_ITS | Encounter Summary ---
Author Organization [employer] ([place], [place], [place], [place], [place]) Address [address] [place] [address] Care Team Providers Care Build Engineer Name Role Phone Unavailable Primary Care Provider Unavailabl e Encounter Details Date Type Department Care Team (Late st Contact Info) Description 08/05/2020 Transcribed Document [facility] [place] [address] [place] [address] ProviderPrasanth MD [address] [place] [address] Social History Tobacco Use Types [...] Diagnoses: None Author: CELESTINA RUIZ APRN [facility] PROGRESS NOTE: DIAGNOSIS: 1. NSTEMI [...] 01:29) Clinical Weight CLINICALWEIGHT: 88.64 kg (08/04/20::00) [place] Body Weight: 70 kg (08/04/20::) Intake & [...]
--- OUTSIDE RECORDS SUMMARY | 2025-09-12 10:05 | XMS_ITS | Encounter Summary ---
Author Organization [employer] ([place], [place], [place], [place], [place]) Address [address] [place] [address] Care Team Providers Care Airborne Mission Systems Name Role Phone Unavailable Primary Care Provider Unavailabl e Encounter Details Date Type Department Care Team (Late st Contact Info) Description 08/05/2020 Transcribed Document [facility] [place] [address] [place] [address] ProviderPrasanth MD [address] [place] [address] Social History Tobacco Use Types [...] Insurance 1 Health Plan: MEDICARE Policy Number: [id number] Authorization Number: Insurance Primary Name : MEDICARE Policy Number: [id number] Historical Authorization Comments-Primary : No Authorization Comments Found DIVINA HUGHES Rn-Utilization Review - 08/05/2020 14:39 EDT Electronically signed by Carla Shelton Conversion Human Resources Compliance Manager Richard at 01/26/2023 9:10 PM CDT documented in this encounter Plan of Treatment Not on file documented as of this encounter Visit Diagnoses Not on filedocumented in this encounter
--- OUTSIDE RECORDS SUMMARY | 2025-09-12 10:05 | XMS_ITS | Encounter Summary ---
Author Organization [employer] ([place], [place], [place], [place], [place]) Address [address] [place] [address] Care Team Providers Care Lode Miner Name Role Phone Unavailable Primary Care Provider Unavailabl e Encounter Details Date Type Department Care Team (Late st Contact Info) Description 08/05/2020 Transcribed Document [facility] [place] Family Medicine [address] [place] [address] ProviderPrasanth MD [address] [place] [address] Social History Tobacco Use Types [...] - Medical Apixaban 5 mg, Oral, Tab, [id number], Routine, Start 08/06/20 7:00:00 EDT, 08/06/20 7:00:00 EDT (CJ AVITIA) Medications aspirin, 81 mg= 1 Tab, Oral, Daily Eliquis, 5 mg= 1 Tab, Oral, [id number] hydroCHLOROthiazide, 12.5 mg= 0.5 Tab, Oral, Daily [...]
--- OUTSIDE RECORDS SUMMARY | 2025-09-12 10:06 | XMS_ITS | Encounter Summary ---
Author Organization [employer] ([place], [place], [place], [place], [place]) Address [address] [place] [address] Care Team Providers Care Framing Inspector Name Role Phone Unavailable Primary Care Provider Unavailabl e Encounter Details Date Type Department Care Team (Late st Contact Info) Description 08/06/2020 Transcribed Document [facility] [place] Family Medicine [address] [place] [address] ProviderPrasanth MD [address] [place] [...]
--- OUTSIDE RECORDS SUMMARY | 2025-09-12 10:06 | XMS_ITS | Encounter Summary ---
Author Organization [employer] ([place], [place], [place], [place], [place]) Address [address] [place] [address] Care Team Providers Care Ramp Manager Name Role Phone Unavailable Primary Care Provider Unavailabl e Encounter Details Date Type Department Care Team (Late st Contact Info) Description 08/06/[address] [facility] [place] Medicine [address] [place] [address] ProviderPrasanth MD [address] [place] [address] Social History Tobacco Use Types [...] Sanchez MD - 08/06/2020 1:08 PM CDT [facility] [place] [address] SHIRA GARZA :1935 Visit Time:08/06/2020 Your [...] Comments f/y tavr with HALT Where: [address] [facility] [address] [place] [address]- Business (1) Follow Up with LACIE ALVA When 08/21/2020 11:15 AM EST Comments 08/21 @ 11:15am Where: [address] [place] [address]- Business (1) Follow Up with KARON MCWILLIAMS When Within 1 week Comments f/u aov stenosis and troponin leak/chestpain Call for follow up appointment Where: [address] [facility] [place] [address] Business (1) Medications What How Much When Instructions Next Dose apixaban (Eliquis 5 mg oral tablet) 1 Tablet(s) Oral Interval Every 12 Hours START AM Pickup at [facility] isosorbide mononitrate (isosorbide mononitrate 20 mg oral tablet) 1 Tablet(s) Oral Two Times A Day Pickup at [facility] aspirin 81 Milligram(s) Every Day atorvastatin (atorvastatin 20 mg oral tablet) 1 Tablet(s) Oral Tuesday hydrochlorothiazide-lisinopril (hydroCHLOROthiazide-lisinopril 12.5 mg-20 mg oral tablet) 1 Tablet(s) Oral Every Day multivitamin 1 Tablet(s) Oral Every Day nitroglycerin (Nitrostat 0.4 mg sublingual tablet) 1 Tablet(s) SubLINgual Every 5 minutes as needed for as needed for chest pain Pharmacy Information [facility]: [address] [address] [phone] Take your medications faithfully. Do NOT skip [...] The two forms of aspirin are: ? Ybi-peflabp-vyzwxq.This type of aspirin does not have a coating and is absorbed quickly. This type of aspirin also comes in a chewable form. ? Enteric-coated. This type of aspirin has a coating that releases the medicine very slowly. Enteric-coated aspirin might cause less stomach upset than zgi-yibvazy-lyaclh aspirin. This type of aspirin should not [...] 09/08/2009 Document Revised: 07/27/2018 Document Reviewed: 07/27/2018 ElseQBuy Patient Education ?? 2020 [employer]. Acute Coronary Syndrome Acute coronary syndrome (ACS) [...] a heart-healthy eating plan. Medicines ??? Take sfay-okd-zoppire and prescription medicines only as told by [...] Reviewed: 10/08/2019 Elsevier Patient Education ?? 2020 [employer] Mitral Valve Replacement Mitral valve replacement [...] including vitamins, herbs, eye drops, creams, and rwba-jul-rnxaaib medicines. ??? Any problems you or family [...] tells you to take them. ? Taking mrbh-dyz-gfdteua medicines, vitamins, herbs, and supplements. Staying hydrated [...] Reviewed: 06/19/2019 Elsevier Patient Education ?? 2020 [employer] Venous Thromboembolism Prevention Venous thromboembolism (VTE) [...] for Disease Control and Prevention: www.cdc.gov ??? [place] Heart Association: www.heart.org Get help right away [...] 09/14/2010 Document Revised: 01/15/2020 Document Reviewed: 12/04/2019 ElseQBuy Patient Education ?? 2020 [employer] Emergency Awareness and Preventative Care STROKE [...] Assistance with quitting is available by contacting 6-657-KLPXNOW. This is a free resource providing counseling, support, and referral. Or you may contact your personal physician. [place] Suicide Prevention Lifeline: The National Suicide Prevention [...] range between ( 0.0 and 7.0 ) Todd #: 0.56 K/uL -- Normal range between ( 0.16 and 1.00 ) Eos #: 0.05 x10(3)/uL -- Normal range between ( 0.00 and 0.80 ) Todd %: 10.1 % -- Normal range between [...] /LPF Urine Bilirubin Dipstick: Negative Urine Specific [place]: 1.023 -- Normal range between ( 1.005 [...] was given the opportunity to ask questions. Patient/Reserve Officer Name: Patient/Reserve Officer Signature: Relationship to Patient: Clinician/Hospital Reserve Officer Signature: Date: Electronically signed by Nikita, Carla Conversion Urgent Care Nurse Practitioner Cerner at 01/26/2023 8:59 PM CDT documented in this encounter Plan of Treatment Not on file documented as of this encounter Visit Diagnoses Not on filedocumented in this encounter
--- OUTSIDE RECORDS SUMMARY | 2025-09-12 10:06 | XMS_ITS | Encounter Summary ---
Author Organization [employer] ([place], [place], [place], [place], [place]) Address [address] [place] [address] Care Team Providers Care Storage Consultant Name Role Phone Unavailable Primary Care Provider Unavailabl e Encounter Details Date Type Department Care Team (Late st Contact Info) Description 06/04/2021 Transcribed Document [facility] [place] [address] [place] [address] ProviderPrasanth MD [address] [place] [address] Social History Tobacco Use Types [...] 06/04/2021 6:59 EDT Electronically signed by Nikita [facility] Conversion Public Administration Professor Cerner at 01/26/2023 8:53 PM CDT documented in this encounter Plan of Treatment Not on file documented as of this encounter Visit Diagnoses Not on filedocumented in this encounter
--- OUTSIDE RECORDS SUMMARY | 2025-09-12 10:06 | XMS_ITS | Encounter Summary ---
Author Organization [employer] ([place], [place], [place], [place], [place]) Address [address] [place] [address] Care Team Providers Care Quarter Section Ironer Name Role Phone Unavailable Primary Care Provider Unavailabl e Encounter Details Date Type Department Care Team (Late st Contact Info) Description 06/04/2021 Transcribed Document [facility] [place] Family Medicine [address] [place] [address] ProviderPrasanth MD [address] [place] [address] Social History Tobacco Use Types [...] Sanchez MD - 06/04/2021 11:25 AM CDT [place] [address] ALEXANDRESHIRA Enamorado HORACIO :1935 Visit Time:06/02/2021 [...] discharge instructions with you Where: [address] [place] [address]- Follow Up with ABEBA HOOKS When 06/08/2021 03:15 PM EDT Comments Appointment has been made Where: [address] [facility] [address] [place] [address]- Business (1) Medications What How Much When Instructions Next Dose apixaban (Eliquis 5 mg oral tablet) 1 Tablet(s) Oral Interval Every 12 Hours Pickup at [facility] this evening aspirin (aspirin 81 mg oral tablet, chewable) 1 Tablet(s) Oral Every Day Pickup at [facility] tomorrow atorvastatin (Lipitor 20 mg oral tablet) 1 Tablet(s) Oral At Bedtime Duration: 30 Day(s) Please Note: Your Lipitor dose has changed to 20 mg oral at bedtime Pickup at [facility] at bedtime metoprolol (Metoprolol Succinate ER 25 mg oral tablet, extended release) 1 Tablet(s) Oral Every Day tomorrow hydrochlorothiazide-lisinopril (hydroCHLOROthiazide-lisinopril 12.5 mg-20 mg oral tablet) 1 Tablet(s) Oral Every Day tomorrow multivitamin 1 Tablet(s) Oral Every Day tomorrow Pharmacy Information [facility]: [address] [facility] [address] [place], [place] [id number] [phone] Take your medications faithfully. Do NOT skip [...] blood clot. Taking other medicines ??? Take pegx-twg-wyvshgy and prescriptions medicines only as told by your health care provider. ??? Do not take dbbt-vaz-xsjmviq NSAIDs, including aspirin and ibuprofen, while you [...] use toothpicks. ??? Use a soft-bristled toothbrush. [place] your teeth gently. ??? Always wear shoes [...] ??? Work with a diet and nutrition worker (dietitian) to make an eating plan. Do [...] provider. Document Revised: 01/16/2020 Document Reviewed: 12/13/2017 [employer] Patient Education ?? 2020 [employer]. Transient Ischemic Attack A transient ischemic attack [...] these instructions at home: Medicines ??? Take xrog-uik-pmskeng and prescription medicines only as told by [...] provider. Document Revised: 06/22/2019 Document Reviewed: 12/28/2017 ElseMoodswiing Patient Education ?? 2020 [employer]. Heart Attack A heart attack occurs when blood and oxygen supply to the heart is cut off. A heart attack causes damage to the heart that cannot be fixed. A heart attack is also called a myocardial infarction, or ID. If you think you are having a [...] these instructions at home: Medicines ??? Take aulv-tut-amlccry and prescription medicines only as told by [...] provider. Document Revised: 01/07/2020 Document Reviewed: 01/07/2020 ElseMoodswiing Patient Education ?? 2020 [employer] Coronary Artery Disease, Male Coronary artery disease (CAD) is a condition in which the arteries that lead to the heart (coronary arteries) become narrow or blocked. The narrowing or blockage can lead to decreased blood flow to the heart. Prolonged reduced blood flow can cause a heart attack (myocardial infarction or ID). This condition may also be called coronary [...] these instructions at home: Medicines ??? Take oxsd-sxl-wqhzmvw and prescription medicines only as told by [...] provider. Document Revised: 06/15/2019 Document Reviewed: 06/05/2019 ElseMoodswiing Patient Education ?? 2020 [employer]. Venous Thromboembolism Prevention Venous thromboembolism (VTE) is [...] for Disease Control and Prevention: www.cdc.gov ??? [place] Heart Association: www.heart.org Get help right away [...] provider. Document Revised: 01/15/2020 Document Reviewed: 12/04/2019 [employer] Patient Education ?? 2020 Awarepoint. aspirin (oral) ( pir in) Arthritis Pain, Aspi-Cor, Aspir-Low, [place] Plus, Durlaza, Ecotrin, Miniprin, [place] What is the most important information I should know about aspirin? Aspirin can cause Ladan's syndrome, a serious and sometimes fatal condition in children. What is aspirin? Aspirin is a salicylate (oq-JFA-ww-ate) that is used to treat pain, and [...] may report side effects to FDA at 2-032-CUQ-3695. What other drugs will affect aspirin? Ask [...] drugs may affect aspirin, including prescription and wkpo-qra-prtzkie medicines, vitamins, and herbal products. Not all [...] to ensure that the information provided by [employer]. ('[employer]') is accurate, up-to-date, and complete, but no guarantee is made to that effect. Drug information contained herein may be time sensitive. [employer] information has been compiled for use by healthcare practitioners and consumers in the [place] and therefore [employer] does not warrant that uses outside of the [place] are appropriate, unless specifically indicated otherwise. [employer]ys drug information does not endorse drugs, diagnose patients or recommend therapy. Readys drug information is an informational resource designed [...] effective or appropriate for any given patient. [employer] does not assume any responsibility for any aspect of healthcare administered with the aid of information [facility] provides. The information contained herein is not intended to cover all possible uses, directions, precautions, warnings, drug interactions, allergic reactions, or adverse effects. If you have questions about the drugs you are taking, check with your doctor, nurse or pharmacist. Copyright 0595-0443 [employer]. Version: 16.03. Revision Date: 04/06/2021. atorvastatin (a [...] may report side effects to FDA at 2-744-RYT-3061. What other drugs will affect atorvastatin? Certain [...] may affect atorvastatin. This includes prescription and zsfi-lkx-ezwhyri medicines, vitamins, and herbal products. Not all [...] to ensure that the information provided by [employer]. ('[employer]') is accurate, up-to-date, and complete, but no guarantee is made to that effect. Drug information contained herein may be time sensitive. [employer] information has been compiled for use by healthcare practitioners and consumers in the [place] and therefore [employer] does not warrant that uses outside of the [place] are appropriate, unless specifically indicated otherwise. [employer]'s drug information does not endorse drugs, diagnose patients or recommend therapy. Readys drug information is an informational resource designed [...] appropriate for any given patient. [facility] does not assume any responsibility for any aspect of healthcare administered with the aid of information [facility] provides. The information contained herein is not intended to cover all possible uses, directions, precautions, warnings, drug interactions, allergic reactions, or adverse effects. If you have questions about the drugs you are taking, check with your doctor, nurse or pharmacist. Copyright 8806-1870 [facility]. Version: .. Revision Date: 11/18/2020. apixaban (a PIX a ban) Merissa What is the most important information I should know about apixaban? Apixaban increases your risk of severe or fatal bleeding, especially if you take certain medicines at the same time (including some psss-hit-dnmhbtq medicines). It is very important to tell [...] or vomit that looks like coffee grounds. Electronically signed by Nikita, Carla Conversion Administration Vice President Cerner at 01/26/2023 9:07 PM CDT documented in this encounter Plan of Treatment Not on file documented as of this encounter Visit Diagnoses Not on filedocumented in this encounter
--- OUTSIDE RECORDS SUMMARY | 2025-09-12 10:06 | XMS_ITS | Encounter Summary ---
Author Organization [employer] ([place], [place], [place], [place], [place]) Address [address] [place] [address] Care Team Providers Care Loan Officer Name Role Phone Unavailable Primary Care Provider Unavailabl e Encounter Details Date Type Department Care Team (Late st Contact Info) Description 07/22/2020 Transcribed Document [facility] [place] Family Medicine [address] [place] [address] ProviderPrasanth MD [address] [place] [address] Social History Tobacco Use Types [...] On: 07/22/2020 11:08 EDT by SALLY BARNETT squilgeer Documentation Discharge Date/Time : 07/22/2020 12:26 EDT [...]
--- OUTSIDE RECORDS SUMMARY | 2025-09-12 10:06 | XMS_ITS | Encounter Summary ---
Author Organization [employer] ([place], [place], [place], [place], [place]) Address [address] [place] [address] Care Team Providers Care Administrative Resources Associate Name Role Phone Unavailable Primary Care Provider Unavailabl e Encounter Details Date Type Department Care Team (Late st Contact Info) Description 12/03/2019 Transcribed Document [facility] [place] Medicine [address] [place] [address] ProviderPrasanth MD [address] [place] [address] Social History Tobacco Use Types Packs/Day Years Used Date Smoking Tobacco: Never Assessed Sex and Gender Information Value Date Recorded Sex Assigned at Not on file Legal Sex Male 6:49 PM CDT Gender Identity Not on file Sexual Orientation Not on file documented as of this encounter Miscellaneous Notes * Cerner Conversion Note - Historical ProviderMD - 12/03/2019 9:48 AM FAMILY AND MARRIAGE COUNSELLOR Event Note Entered On: 12/03/2019 9:49 EST [...] 12/03/2019 9:50 EST Electronically signed by Nikita [facility] Conversion Fitness Coach Cerner at 01/26/2023 9:12 PM CDT documented in this encounter Plan of Treatment Not on file documented as of this encounter Visit Diagnoses Not on filedocumented in this encounter
--- OUTSIDE RECORDS SUMMARY | 2025-09-12 10:06 | XMS_ITS | Encounter Summary ---
Author Organization [employer] ([place], [place], [place], [place], [place]) Address [address] [place] [address] Care Team Providers Care Scientific Director Name Role Phone Unavailable Primary Care Provider Unavailabl e Encounter Details Date Type Department Care Team (Late st Contact Info) Description 11/07/2019 Transcribed Document [facility] [place] [address] [place] [address] ProviderPrasanth MD [address] [place] [address] Social History Tobacco Use [...] Prasanth Sanchez MD - 11/07/2019 10:09 AM EXHIBITION ORGANISER Patient: SHIRA GARZA HORACIO Age: 84 years Sex: Male : 1935 Associated Diagnoses: None Author: CELESTINA RUIZ APRN [facility] CARDIOLOGY PROGRESS NOTE: DIAGNOSIS: 1. 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
--- OUTSIDE RECORDS SUMMARY | 2025-09-12 10:06 | XMS_ITS | Encounter Summary ---
Author Organization [employer] ([place], [place], [place], [place], [place]) Address [address] [place] [address] Care Team Providers Care Family Services Worker Name Role Phone Unavailable Primary Care Provider Unavailabl e Encounter Details Date Type Department Care Team (Late st Contact Info) Description 11/07/2019 Transcribed Document [facility] [place] [address] [place] [address] ProviderPrasanth MD [address] [place] [address] Social History Tobacco Use Types Packs/Day Years Used Date Smoking Tobacco: Never Assessed Sex and Gender Information Value Date Recorded Sex Assigned at Not on file Legal Sex Male 6:49 PM CDT Gender Identity Not on file Sexual Orientation Not on file documented as of this encounter Miscellaneous Notes * Cerner Conversion Note - Historical ProviderMD - 11/07/2019 5:00 AM GRADE AND CENTER MARKER Chart Check - Review Order Profile Entered [...]
--- OUTSIDE RECORDS SUMMARY | 2025-09-12 10:06 | XMS_ITS | Encounter Summary ---
Author Organization [employer] ([place], [place], [place], [place], [place]) Address [address] [place] [address] Care Team Providers Care Specialty Finishing Utility Person Name Role Phone Unavailable Primary Care Provider Unavailabl e Encounter Details Date Type Department Care Team (Late st Contact Info) Description 12/30/2020 Transcribed Document [facility] [place] [address] [place] [address] ProviderPrasanth MD [address] [place] [address] Social History Tobacco Use Types [...]
--- OUTSIDE RECORDS SUMMARY | 2025-09-12 10:06 | XMS_ITS | Encounter Summary ---
Author Organization [employer] ([place], [place], [place], [place], [place]) Address [address] [place] [address] Care Team Providers Care City Sanitarian Name Role Phone Unavailable Primary Care Provider Unavailabl e Encounter Details Date Type Department Care Team (Late st Contact Info) Description 09/26/2019 Transcribed Document [facility] [place] [address] [place] [address] ProviderPrasanth MD [address] [place], [place] [id number] Social History Tobacco Use Types Packs/Day Years Used Date Smoking Tobacco: Never Assessed Sex and Gender Information Value Date Recorded Sex Assigned at Not on file Legal Sex Male 6:49 PM CDT Gender Identity Not on file Sexual Orientation Not on file documented as of this encounter Miscellaneous Notes * Cerner Conversion Note - Historical ProviderMD - 09/26/2019 10:31 AM UNDERGROUND MINING SECTION FOREMAN UM Authorization Entered On: 09/26/2019 10:31 EST Performed On: 09/26/2019 10:31 EST by DIVINA HUGHES Rn-Utilization Review Primary Insurance Authorization Authorization and Policy Numbers : Insurance 1 Health Plan: MEDICARE Policy Number: [id number] Authorization Number: NOT REQUIRED Insurance 2 Health Plan: AARP N Policy Number: [id number] Authorization Number: NOT REQUIRED Insurance Primary Name : MEDICARE Policy Number: [id number] AARP N Policy Number: [id number] Historical Authorization Comments-Primary : No Authorization Comments Found DIVINA HUGHES Rn-Utilization Review - 09/26/2019 10:31 EST Electronically signed by Nikita [facility] Conversion Social Sciences Instructor Cerner at 01/26/2023 9:09 PM CDT documented in this encounter Plan of Treatment Not on file documented as of this encounter Visit Diagnoses Not on filedocumented in this encounter
--- OUTSIDE RECORDS SUMMARY | 2025-09-12 10:06 | XMS_ITS | Encounter Summary ---
Author Organization [employer] ([place], [place], [place], [place], [place]) Address [address] [place] [address] Care Team Providers Care Wind Farm Operations Manager Name Role Phone Unavailable Primary Care Provider Unavailabl e Encounter Details Date Type Department Care Team (Late st Contact Info) Description 08/06/2020 Transcribed Document [facility] [place] [address] [place] [address] ProviderPrasanth MD [address] [place] [address] Social History Tobacco Use Types [...] nitroglycerin and presentation to outside ER at [facility] in [place]. Patient was subsequently transferred here for further [...] tablet 5 mg = 1 Tab, Oral, [id number] hydroCHLOROthiazide-lisinopril 12.5 mg-20 mg oral tablet 1 [...] Ratio 0.9 LOW 08/05/2020 19:33 Bun/Creatinine 22.5 [place] 08/05/2020 19:33 Sodium Level 139 mmol/L 08/05/2020 09:53 Potassium Level 3.8 mmol/L 08/05/2020 09:53 Chloride Level 107 mmol/L 08/05/2020 09:53 Carbon Dioxide Level 30 mmol/L 08/05/2020 09:53 Anion Gap 6 LOW 08/05/2020 10:00 Alk Phos 62 Units/Liter 08/05/2020 09:53 ALT 25 Units/Liter 08/05/2020 09:53 AST 27 Units/Liter 08/05/2020 09:53 Blood Urea Nitrogen 27 mg/dL [place] 08/05/2020 09:59 Glucose Level 106 mg/dL 08/05/2020 09:53 Albumin Level 3.2 Gram/dL LOW 08/05/2020 10:00 Bilirubin Total 0.5 mg/dL 08/05/2020 09:53 Calcium Level 8.6 mg/dL 08/05/2020 09:53 Coagulation Results (Current Encounter/Past 24 Hours) PT 37.0 Second(s) WA 08/06/2020 04:25 INR 3.5 WA 08/06/2020 04:25 Creatinine Clearance (Current Encounter/Past 24 Hours) Creatinine Level 1.20 mg/dL 08/05/2020 09:53 Bun/Creatinine 22.5 [place] 08/05/2020 09:53 Estimated Creatinine Clearance 46.64 mL/Min [...] CR Chest 1 Vw Port; Neha Leung, Real Property Evaluator 08/04/2020 12:54 EDT [2] [facility]; WINNIE AYALA MD-CAR 08/04/2020 13:14 EDT [3] Admission H & P; CJ AVITIA MD-INT 08/04/2020 15:01 EDT Electronically signed by Nikita [facility] Conversion Sneller Hand Cerner at 01/26/2023 9:11 PM CDT documented in this encounter Plan of Treatment Not on file documented as of this encounter Visit Diagnoses Not on filedocumented in this encounter
--- OUTSIDE RECORDS SUMMARY | 2025-09-12 10:06 | XMS_ITS | Encounter Summary ---
Author Organization [employer] ([place], [place], [place], [place], [place]) Address [address] [place] [address] Care Team Providers Care Seaman Officer Name Role Phone Unavailable Primary Care Provider Unavailabl e Encounter Details Date Type Department Care Team (Late st Contact Info) Description 11/08/2019 Transcribed Document [facility] [place] Medicine [address] [place] [address] ProviderPrasanth MD [address] [place] [address] Social History Tobacco Use Types Packs/Day Years Used Date Smoking Tobacco: Never Assessed Sex and Gender Information Value Date Recorded Sex Assigned at Not on file Legal Sex Male 6:49 PM CDT Gender Identity Not on file Sexual Orientation Not on file documented as of this encounter Miscellaneous Notes * Cerner Conversion Note - Historical ProviderMD - 11/08/2019 1:34 PM ELECTRO MECHANICAL ASSEMBLER Discharge Summary, PT Entered On: 11/08/2019 13:36 [...] DRAKE PRICE, PT - 11/08/2019 13:34 EST Cheese Processor Goals Mobility/Bed Mobility LTG PT Grid Goal [...] - 11/08/2019 13:34 EST Electronically signed by [facility] Conversion Disposition Clerk Cerner at 01/26/2023 8:49 PM CDT documented in this encounter Plan of Treatment Not on file documented as of this encounter Visit Diagnoses Not on filedocumented in this encounter
--- OUTSIDE RECORDS SUMMARY | 2025-09-12 10:06 | XMS_ITS | Encounter Summary ---
Author Organization [employer] ([place], [place], [place], [place], [place]) Address [address] [place] [address] Care Team Providers Care Marine Cargo Specialist Name Role Phone Unavailable Primary Care Provider Unavailabl e Encounter Details Date Type Department Care Team (Late st Contact Info) Description 11/07/2019 Transcribed Document [facility] Radiology [address] [place] [address] Abel Kapadia MD [address] [place] [address] [place] [id number] Social History Tobacco Use Types Packs/Day Years [...] 11/08/2019 PRIMARY CARE PHYSICIAN: Dr. Marcelino Caldera, [facility]. REFERRING PHYSICIAN: Dr. Beckman, [facility] , 1935. CURRENT COMPLAINT: Falls, dizziness, irregular heartbeat. HISTORY OF PRESENT ILLNESS: Shira Garza is an 84-year-old man, , living in the [facility], who recently underwent a transcatheter aortic [...] At risk for sleep apnea / IMO [id number] / Confirmed Shortness of breath / SNOMED CT 186785752 / Confirmed Hypertension / SNOMED CT 25922097 / Confirmed Wears glasses / SNOMED CT 940531038 / Confirmed, Active Problems (11) Aortic stenosis [...] gallop, S1+ S2 No S3 or S4 [place].. Gastrointestinal: Soft, Non-tender, Non-distended, Normal bowel sounds. [...] (NOV 04) Radiology Results (Last 48 hours) [id number] -- 11/04/2019 21:19 CT Head WO (11/05/2019 [...]
--- OUTSIDE RECORDS SUMMARY | 2025-09-12 10:06 | XMS_ITS | Encounter Summary ---
Author Organization [employer] ([place], [place], [place], [place], [place]) Address [address] [place] [address] Care Team Providers Care Scale And Skip Car Operator Name Role Phone Unavailable Primary Care Provider Unavailabl e Encounter Details Date Type Department Care Team (Late st Contact Info) Description 11/07/2019 Transcribed Document [facility] [place] [address] [place] [address] ProviderPrasanth MD [address] [place] [address] Social History Tobacco Use Types Packs/Day Years Used Date Smoking Tobacco: Never Assessed Sex and Gender Information Value Date Recorded Sex Assigned at Not on file Legal Sex Male 6:49 PM CDT Gender Identity Not on file Sexual Orientation Not on file documented as of this encounter Miscellaneous Notes * Cerner Conversion Note - Historical ProviderMD - 11/07/2019 2:00 AM SHIP PROPELLER FINISHER Musical Instrument Maker Details Entered On: 11/07/2019 0:40 EST [...]
--- OUTSIDE RECORDS SUMMARY | 2025-09-12 10:06 | XMS_ITS | Encounter Summary ---
Author Organization [employer] ([place], [place], [place], [place], [place]) Address [address] [place] [address] Care Team Providers Care Patient Insurance Clerk Name Role Phone Unavailable Primary Care Provider Unavailabl e Encounter Details Date Type Department Care Team (Late st Contact Info) Description 11/07/[address] [facility] Radiology 1 [place] [address] Abel Kapadia MD [address] [place] [address] [place] [id number] Social History Tobacco Use Types Packs/Day Years [...] 11/08/2019 PRIMARY CARE PHYSICIAN: Dr. Marcelino Caldera, [facility]. REFERRING PHYSICIAN: Dr. Beckman, [facility] , 1935. CURRENT COMPLAINT: Falls, dizziness, irregular heartbeat. HISTORY OF PRESENT ILLNESS: Shira Garza is an 84-year-old man, , living in the [facility], who recently underwent a transcatheter aortic [...] At risk for sleep apnea / IMO [id number] / Confirmed Shortness of breath / SNOMED CT 585056710 / Confirmed Hypertension / SNOMED CT 90242451 / Confirmed Wears glasses / SNOMED CT 337354066 / Confirmed, Active Problems (11) Aortic stenosis [...] gallop, S1+ S2 No S3 or S4 [place].. Gastrointestinal: Soft, Non-tender, Non-distended, Normal bowel sounds. [...] (NOV 04) Radiology Results (Last 48 hours) [id number] -- 11/04/2019 21:19 CT Head WO (11/05/2019 [...]
--- OUTSIDE RECORDS SUMMARY | 2025-09-12 10:06 | XMS_ITS | Encounter Summary ---
Author Organization [employer] ([place], [place], [place], [place], [place]) Address [address] [place] [address] Care Team Providers Care Labor Training Manager Name Role Phone Unavailable Primary Care Provider Unavailabl e Encounter Details Date Type Department Care Team (Late st Contact Info) Description 10/29/2019 Transcribed Document [facility] [place] Family Medicine [address] [place] [address] ProviderPrasanth MD [address] [place] [address] Social History Tobacco Use Types Packs/Day Years Used Date Smoking Tobacco: Never Assessed Sex and Gender Information Value Date Recorded Sex Assigned at Not on file Legal Sex Male 6:49 PM CDT Gender Identity Not on file Sexual Orientation Not on file documented as of this encounter Miscellaneous Notes * Cerner Conversion Note - Prasanth ProviderMD - 10/29/2019 7:03 AM INSTRUMENTATION AND CONTROLS DESIGNER Admission History, Adult Entered On: 10/29/2019 12:13 [...] Ambulatory Legal Guardian : No Support Person/Patient Dietary Tech : Yes Support Person/Pt Rep Name : Rosa Elena Cormier- spouse Support Person/Pt Rep Contact Information : [phone] home Want Family/Rep/Phys Notified of Admit : No Emergency Contact #1 : Rosa Elena Cormier Emergency Contact #1 Emergency Contact #1 Relationship : Emergency Contact #2 : na Emergency Contact #2 Phone Number : na Emergency Contact #2 Relationship : na Information Obtained From : Patient Primary Language : Urdu Preferred Communication Mode : Verbal Communication Barrier [...] Scale Risk Level : 0-24 Low Risk [place] Fall Interventions : Adequate lighting, Assistive devices [...] Source : Measured Height Entry Format : Tea Height, Feet : 5 ft(Converted to: 152 cm, 60 Inch) Height, Inches : 9 Inch(Converted to: 0 ft 9 Inch, 22.86 cm) Clinical Height : 175.26 cm Weight Source : Standing scale Weight Entry Format : Tea Clinical Dosing Weight : 92.5 kg Weight, Pounds : 203 lb Weight, Ounces : 8 oz Body Surface Area (BSA) : 2.08 m2 Body Mass Index : 30.1 kg/m2 (HI) B[place] Body Weight : 70 kg Rosalee Barrios [...] Rosalee Barrios RN - 10/29/2019 12:03 EST [place] Suicide Severity Rating Scale (C-SSRS) CSSRS Past [...]
--- OUTSIDE RECORDS SUMMARY | 2025-09-12 10:06 | XMS_ITS | Encounter Summary ---
Author Organization [employer] ([place], [place], [place], [place], [place]) Address [address] [place] [address] Care Team Providers Care Tax Investigator Name Role Phone Unavailable Primary Care Provider Unavailabl e Encounter Details Date Type Department Care Team (Late st Contact Info) Description 09/26/2019 Transcribed Document [facility] Cardiology [address] [place] [address] Lee Ann Quinonez MD [address] [facility] [address] [place] [address] Social History Tobacco Use Types [...] Normal strength, No deformity. Integumentary: Warm, Dry, [place], No rash. Neurologic: Alert, Oriented, No focal [...]
--- OUTSIDE RECORDS SUMMARY | 2025-09-12 10:06 | XMS_ITS | Encounter Summary ---
Author Organization [employer] ([place], [place], [place], [place], [place]) Address [address] [place] [address] Care Team Providers Care Charge Account Authorizer Name Role Phone Unavailable Primary Care Provider Unavailabl e Encounter Details Date Type Department Care Team (Late st Contact Info) Description 06/04/2021 Transcribed Document [facility] [place] [address] ProviderPrasanth MD [address] [place] [address] Social History Tobacco Use [...] reliability. This morning he tried to call [facility] cardiology to report chest discomfort and [...] tablet 5 mg = 1 Tab, Oral, [id number] hydroCHLOROthiazide-lisinopril 12.5 mg-20 mg oral tablet 1 [...] [1] CR Chest 2 Vws; Kezia Louise, Unarmed Security Guard 06/02/2021 10:51 EDT [2] ECHO REPORT - [...] 06/03/2021 13:11 EDT Electronically signed by Nikita [facility] Conversion Solar Energy System Installer Helper Cerner at 01/26/2023 8:52 PM CDT documented in this encounter Plan of Treatment Not on file documented as of this encounter Visit Diagnoses Not on filedocumented in this encounter
--- OUTSIDE RECORDS SUMMARY | 2025-09-12 10:06 | XMS_ITS | Encounter Summary ---
Author Organization [employer] ([place], [place], [place], [place], [place]) Address [address] [place] [address] Care Team Providers Care Cone Worker Name Role Phone Unavailable Primary Care Provider Unavailabl e Encounter Details Date Type Department Care Team (Late st Contact Info) Description 12/30/2020 Transcribed Document [facility] [place] [facility] [place] [address] ProviderPrasanth MD [address] [place] [address] Social History Tobacco Use Types [...] Source : Stated Height Entry Format : [place] Height, Feet : 5 ft(Converted to: 152 cm, 60 Inch) Height, Inches : 9 Inch(Converted to: 0 ft 9 Inch, 22.86 cm) Clinical Height : 175.26 cm Weight Source : Standing scale Weight Entry Format : [place] Clinical Dosing Weight : 88.64 kg Weight, Pounds : 195 lb Body Surface Area (BSA) : 2.05 m2 Body Mass Index : 28.9 kg/m2 (HI) Barney Body Weight : 70 kg Mini Abreu [...] Mini Abreu RN - 12/30/2020 8:05 EDT [place] Suicide Severity Rating Scale (C-SSRS) CSSRS Past [...] Spouse Legal Guardian : No Support Person/Patient Water Resource Project Manager : Yes Support Person/Pt Rep Name : Rosa Elena Bustamante- spouse Support Person/Pt Rep Contact Information : [phone] home Want Family/Rep/Phys Notified of Admit : No Emergency Contact #1 : NA Emergency Contact #1 Phone Number : NA Emergency Contact #1 Relationship : NA Emergency Contact #2 : NA Emergency Contact #2 Phone Number : NA Emergency Contact #2 Relationship : NA Information Obtained From : Patient Primary Language : Tanzanian Preferred Communication Mode : Verbal Communication Barrier : None Labor Economics Teacher Needed : No Mini Abreu RN - [...] Scale Risk Level : 0-24 Low Risk [place] Fall Interventions : Adequate lighting, Bed in [...]
--- OUTSIDE RECORDS SUMMARY | 2025-09-12 10:06 | XMS_ITS | Encounter Summary ---
Author Organization [employer] ([place], [place], [place], [place], [place]) Address [address] [place] [address] Care Team Providers Care Filler Shredder Helper Name Role Phone Unavailable Primary Care Provider Unavailabl e Encounter Details Date Type Department Care Team (Late st Contact Info) Description 10/29/2019 Transcribed Document [facility] [place] [address] [place] [address] ProviderPrasanth MD [address] [place] [address] Social History Tobacco Use Types Packs/Day Years Used Date Smoking Tobacco: Never Assessed Sex and Gender Information Value Date Recorded Sex Assigned at Not on file Legal Sex Male 6:49 PM CDT Gender Identity Not on file Sexual Orientation Not on file documented as of this encounter Miscellaneous Notes * Cerner Conversion Note - Historical ProviderMD - 10/29/2019 9:12 AM BUSINESS SERVICES SALES AGENT Education-Diabetes Topics Entered On: 10/30/2019 4:51 EST [...]
--- OUTSIDE RECORDS SUMMARY | 2025-09-12 10:06 | XMS_ITS | Encounter Summary ---
Author Organization [employer] ([place], [place], [place], [place], [place]) Address [address] [place] [address] Care Team Providers Care Upsetter Setter Up Name Role Phone Unavailable Primary Care Provider Unavailabl e Encounter Details Date Type Department Care Team (Late st Contact Info) Description 12/03/2019 Transcribed Document [facility] [place] [address] [place] [address] ProviderPrasanth MD [address] [place] [address] Social History Tobacco Use Types Packs/Day Years Used Date Smoking Tobacco: Never Assessed Sex and Gender Information Value Date Recorded Sex Assigned at Not on file Legal Sex Male 6:49 PM CDT Gender Identity Not on file Sexual Orientation Not on file documented as of this encounter Miscellaneous Notes * Cerner Conversion Note - Historical ProviderMD - 12/03/2019 11:15 AM TICKETER Event Note Entered On: 12/03/2019 11:17 EST Performed On: 12/03/2019 11:15 EST by AUSTIN FOFANA, RN Event Note Event Date/Time : 12/03/2019 11:05 EST Description of Event : pt received back to unit from procedure lab, s/p anne ADLER within reach, family at bedside , VSS AUSTIN FOFANA, RN - 12/03/2019 11:15 EST Electronically signed by Nikita [facility] Conversion Central Aisle Cashier Cerner at 01/26/2023 9:08 PM CDT documented in this encounter Plan of Treatment Not on file documented as of this encounter Visit Diagnoses Not on filedocumented in this encounter
--- OUTSIDE RECORDS SUMMARY | 2025-09-12 10:06 | XMS_ITS | Encounter Summary ---
Author Organization [employer] ([place], [place], [place], [place], [place]) Address [address] [place] [address] Care Team Providers Care Photogrammetric Compilation Specialist Name Role Phone Unavailable Primary Care Provider Unavailabl e Encounter Details Date Type Department Care Team (Late st Contact Info) Description 11/08/2019 Transcribed Document [facility] Radiology [address] [place] [address] Abel Kapadia MD [address] [place] [address] [place] [id number] Social History Tobacco Use Types Packs/Day Years [...] 11/08/2019 PRIMARY CARE PHYSICIAN: Dr. Marcelino Caldera, [facility]. REFERRING PHYSICIAN: [facility]. Beckman, [facility] [...] At risk for sleep apnea / IMO [id number] / Confirmed Shortness of breath / SNOMED CT 503754898 / Confirmed Hypertension / SNOMED CT 13115868 / Confirmed Wears glasses / SNOMED CT 509819279 / Confirmed, Active Problems (11) Aortic stenosis [...] gallop, S1+ S2 No S3 or S4 [place].. Gastrointestinal: Soft, Non-tender, Non-distended, Normal bowel sounds. [...] (NOV 04) Radiology Results (Last 48 hours) [id number] -- 11/04/2019 21:19 CR Chest 1 Vw [...]
--- OUTSIDE RECORDS SUMMARY | 2025-09-12 10:06 | XMS_ITS | Encounter Summary ---
Author Organization [employer] ([place], [place], [place], [place], [place]) Address [address] [place] [address] Care Team Providers Care Associate Broker Name Role Phone Unavailable Primary Care Provider Unavailabl e Encounter Details Date Type Department Care Team (Late st Contact Info) Description 10/29/2019 Transcribed Document [facility] Cardiology [address] [place] [address] Jamshid Holman MD [address] [facility] [address] [place] [id number] Social History Tobacco Use Types Packs/Day Years [...] 2. Using a micropuncture access needle, a 4-Yemeni sheath was inserted in the right common femoral artery. Angiography revealed appropriate sheath position and arterial size for a large sheath insertion. A 6-Yemeni sheath was inserted. The 6-Yemeni was exchanged for a single Perclose deployed in a pre-close technique and the sheath upsized to 8-Yemeni. Of note, the first two Perclose catheters missed but a wire was inserted and a third Perclose took appropriately. A 6-Yemeni sheath was inserted in the left femoral artery and a 6-Yemeni sheath was inserted in the left femoral vein. Through the venous sheath, a 5-Yemeni transvenous pacemaker was inserted and advanced to the right ventricular free wall. Pacing capture was confirmed. Through the 6-Yemeni arterial sheath, a 5-Yemeni pigtail catheter was inserted and advanced to the right coronary cusp. Supravalvular aortography was performed. 3. The 8-Yemeni sheath was exchanged over a support wire for a 16-Yemeni Mancia eSheath which was secured with suture. Heparin was administered to achieve a therapeutic ACT. 4. Through the Mancia sheath, a 6-Yemeni AL1 diagnostic catheter and a straight-tipped 0.035 [...] pacing, the valve was deployed with prompt islam of stable hemodynamics and rhythm. The delivery [...] Perclose was tightened with good hemostasis. A 6-Yemeni arterial sheath was removed and a Mynx closure was deployed with good hemostasis. The venous sheath was removed and manual compression was held with good hemostasis. 7. The patient was transferred to the postanesthesia care unit in stable condition. 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 /[id number] MD LAKISHA Calixto/ASHLEY / LAKISHA / MODL /[id number] documented in this encounter Plan of Treatment Not on file documented as of this encounter Visit Diagnoses Not on filedocumented in this encounter
--- OUTSIDE RECORDS SUMMARY | 2025-09-12 10:06 | XMS_ITS | Encounter Summary ---
Author Organization [employer] ([place], [place], [place], [place], [place]) Address [address] [place] [address] Care Team Providers Care Field Professional Name Role Phone Unavailable Primary Care Provider Unavailabl e Encounter Details Date Type Department Care Team (Late st Contact Info) Description 11/07/2019 Transcribed Document [facility] [place] Medicine [address] [place] [address] ProviderPrasanth MD [address] [place] [address] Social History Tobacco Use Types Packs/Day Years Used Date Smoking Tobacco: Never Assessed Sex and Gender Information Value Date Recorded Sex Assigned at Not on file Legal Sex Male 6:49 PM CDT Gender Identity Not on file Sexual Orientation Not on file documented as of this encounter Miscellaneous Notes * Cerner Conversion Note - Historical ProviderMD - 11/07/2019 5:00 PM ELECTRONICS TECH Chart Check - Review Order Profile Entered On: 11/07/2019 17:33 EST Performed On: 11/07/2019 17:00 EST by MARIBELL MIMS, RN Chart Check Powerplans Initiated/Discontinued as Appropriate : Yes MARIBELL MIMS RN - 11/07/2019 17:33 EST Electronically signed by Nikita [facility] Conversion Auto Service Station Attendant Cerner at 01/26/2023 8:59 PM CDT documented in this encounter Plan of Treatment Not on file documented as of this encounter Visit Diagnoses Not on filedocumented in this encounter
--- OUTSIDE RECORDS SUMMARY | 2025-09-12 10:06 | XMS_ITS | Encounter Summary ---
Author Organization [employer] ([place], [place], [place], [place], [place]) Address [address] [place] [address] Care Team Providers Care Manager Health Name Role Phone Unavailable Primary Care Provider Unavailabl e Encounter Details Date Type Department Care Team (Late st Contact Info) Description 10/29/2019 Transcribed Document [facility] [place] [address] [place] [address] ProviderPrasanth MD [address] [place] [address] Social History Tobacco Use Types Packs/Day Years Used Date Smoking Tobacco: Never Assessed Sex and Gender Information Value Date Recorded Sex Assigned at Not on file Legal Sex Male 6:49 PM CDT Gender Identity Not on file Sexual Orientation Not on file documented as of this encounter Miscellaneous Notes * Cerner Conversion Note - Prasanth Sanchez MD - 10/29/2019 10:20 AM TAX REPRESENTATIVE DATE OF PROCEDURE: 10/29/2019 SURGEON: Michael Fontana [...] that, we were able to place a 6-Ethiopian sheath into the right common femoral artery. Angiography revealed an appropriate sheath size and position for a large sheath insertion. A guidewire was then placed into the right common femoral artery and a 6-Ethiopian sheath was then subsequently removed. A single Perclose was then deployed in a pre-close fashion and the sheath was then up sized to an 8-Ethiopian. A 6-Ethiopian sheath was then also inserted into the left common femoral vein and another 6-Ethiopian sheath was placed in the left common femoral artery. A 5-Ethiopian transvenous pacemaker was inserted through the venous sheath and was advanced under fluoroscopic guidance to the right ventricular free wall. Pacing capture was confirmed. A 5-Ethiopian pigtail catheter was then advanced through the left common femoral arterial sheath and was positioned in the right coronary cusp. Supravalvular aortography was then performed. Coplanar view was confirmed. Amplatz Extra Stiff wire was then placed into the 8-Ethiopian right femoral arterial sheath and was advanced. The 8-Ethiopian right femoral arterial sheath was then removed, and after dilatation of the tissue tract, a 16-Ethiopian Mancia eSheath was inserted without difficulty. This sheath was then secured to the skin using silk suture. Heparin was then also administered to achieve a therapeutic ACT. Over the Amplatz Extra Stiff wire, a 6-Ethiopian AL1 diagnostic catheter was advanced and a [...] wire and the Perclose was tightened. The 6-Ethiopian sheath from the left common femoral artery [...] to the recovery room in stable condition. /[id number] MD DARREN Caro/ASHLEY / HRM / MODL /[id number] CC: MD Jason Caro MD Ryan Waddles, MD Electronically signed by [facility], [facility] Conversion Terminal Worker Cerner at 01/26/2023 8:51 PM CDT documented in this encounter Plan of Treatment Not on file documented as of this encounter Visit Diagnoses Not on filedocumented in this encounter
--- OUTSIDE RECORDS SUMMARY | 2025-09-12 10:06 | XMS_ITS | Encounter Summary ---
Author Organization [employer] ([place], [place], [place], [place], [place]) Address [address] [place] [address] Care Team Providers Care Tip Bander Name Role Phone Unavailable Primary Care Provider Unavailabl e Encounter Details Date Type Department Care Team (Late st Contact Info) Description 06/02/2021 Transcribed Document [facility] [place] [address] [place] [address] ProviderPrasanth MD [address] [place] [...] Historical ProviderMD - 06/02/2021 2:49 PM CDT HYDROPULPER OPERATOR Attempt to Treat Entered On: 06/02/2021 14:50 EDT Performed On: 06/02/2021 14:49 EDT by ADRIÁN LUO SLP Attempt to Treat Unable to Treat Due To : Patient Unavailable Inability to Treat Comment : Attempted to see pt for dysphagia evaluation, however he was off the floor. HYDROPULPER OPERATOR will f/u Tuesday. ADRIÁN LUO SLP - 06/02/2021 14:49 EDT Electronically signed by Nikita [facility] Conversion Billing Control Clerk Cerner at 01/26/2023 8:57 PM CDT documented in this encounter Plan of Treatment Not on file documented as of this encounter Visit Diagnoses Not on filedocumented in this encounter
--- OUTSIDE RECORDS SUMMARY | 2025-09-12 10:06 | XMS_ITS | Encounter Summary ---
Author Organization [employer] ([place], [place], [place], [place], [place]) Address [address] [place] [address] Care Team Providers Care Moderate Needs Teacher Name Role Phone Unavailable Primary Care Provider Unavailabl e Encounter Details Date Type Department Care Team (Late st Contact Info) Description 11/08/2019 Transcribed Document [facility] [place] [address] [place] [address] ProviderPrasanth MD [address] [place] [address] Social History Tobacco Use Types Packs/Day Years Used Date Smoking Tobacco: Never Assessed Sex and Gender Information Value Date Recorded Sex Assigned at Not on file Legal Sex Male 6:49 PM CDT Gender Identity Not on file Sexual Orientation Not on file documented as of this encounter Miscellaneous Notes * Cerner Conversion Note - Prasanth Sanchez MD - 11/08/2019 11:42 AM DATA [place] [address] ALEXANDRESHIRA Enamorado HORACIO :1935 Visit Time:11/04/2019 [...] Appointment has been made . Where: [address] [facility] [address] [place] [id number]- Business (1) Follow Up with IRENE MAJANO When 11/15/2019 10:[address] [place]. Appointment has been made Where: [address] [place] [address]- Business (1) Follow Up with LACIE ALVA When Within 3 months Comments Call for follow up appointment near the end of December. Where: [address] [place] [address] SECTION OF CARDIOLOGY [place] [phone]- Business (1) Follow Up with KARON CALDERA When Within 1 to 2 weeks Where: [address] [place] [address] OF INTERNAL MEDIC [place] [phone] Business (1) Follow Up with Patient Resource [...] these instructions at home: Medicines ??? Take jkls-bhj-wzuekcm and prescription medicines only as told by [...] and water are not available, use hand pcts. ? Change your dressing as told by [...] towers. ??? Do not use amateur ( Stalkthis ) radio equipment or electric ( arc [...] 06/20/2013 Document Revised: 12/14/2017 Document Reviewed: 06/20/2016 [employer] Patient Education ?? 2019 [employer]. Head Injury, Adult There are many [...] or school. Ask your doctor for a ekdy-ze-espb plan for slowly going back to your [...] your friends, family, a trusted coworker, and flatwork ironer about your injury, symptoms, and limits (restrictions). Have them watch for any problems that are new or getting worse. General instructions ??? Take jbyo-ygg-fsqeibq and prescription medicines only as told by [...] 04/05/2017 Elsevier Interactive Patient Education ?? 2019 [employer] Subdural Hematoma A subdural hematoma is [...] you to do the same. ??? Take cixo-pbd-jqoavrc and prescription medicines only as told by [...] Where to find more information: ??? National Crockett of Neurological Disorders and Stroke: www.ninds.nih.gov ??? [place] Association of Neurological Surgeons: http://www.aans.org ??? [place] Academy of Neurology (AAN): www.aan.com ??? Brain [...] 08/31/2017 Elsevier Interactive Patient Education ?? 2018 [employer]. Emergency Awareness and Preventative Care STROKE [...] Assistance with quitting is available by contacting 6-335-VTWNNOW. This is a free resource providing counseling, support, and referral. Or you may contact your personal physician. [place] Suicide Prevention Lifeline: The National Suicide Prevention [...] range between ( 0.0 and 7.0 ) Cotton #: 0.61 K/uL -- Normal range between ( 0.16 and 1.00 ) Eos #: 0.09 x10(3)/uL -- Normal range between ( 0.00 and 0.80 ) Cotton %: 9.6 % -- Normal range between [...] was given the opportunity to ask questions. Patient/Designer/Writer Name: Patient/Designer/Writer Signature: Relationship to Patient: Clinician/Hospital Designer/Writer Signature: Date: Electronically signed by Interface, [facility] Conversion Pilot Control Operator Helper Richard at 01/26/2023 8:54 PM CDT documented in this encounter Plan of Treatment Not on file documented as of this encounter Visit Diagnoses Not on filedocumented in this encounter
--- OUTSIDE RECORDS SUMMARY | 2025-09-12 10:06 | XMS_ITS | Encounter Summary ---
Author Organization [employer] ([place], [place], [place], [place], [place]) Address [address] [place] [address] Care Team Providers Care Binding Cementer French Cord Name Role Phone Unavailable Primary Care Provider Unavailabl e Encounter Details Date Type Department Care Team (Late st Contact Info) Description 10/29/2019 Transcribed Document [facility] [place] Family Medicine [address] [place] [address] ProviderPrasanth MD [address] [place] [address] Social History Tobacco Use Types Packs/Day Years Used Date Smoking Tobacco: Never Assessed Sex and Gender Information Value Date Recorded Sex Assigned at Not on file Legal Sex Male 6:49 PM CDT Gender Identity Not on file Sexual Orientation Not on file documented as of this encounter Miscellaneous Notes * Cerner Conversion Note - Prasanth ProviderMD - 10/29/2019 8:11 [address] [facility] Main OR PACU Summary Primary Physician: MARK HAIRSOTN MD-CAT Finalized Date/Time: 10/29/19 11:47:09 Pt. Name: SHIRA GARZA HORACIO /Sex: 1935 Male Med Rec #: [id number] Physician: MARK HAIRSTON MD-CAT Financial #: [id number] Pt. Type: I Room/Bed: [facility]/1 Admit/Disch: 10/29/19 07:03:00 - Institution: [facility] Main OR PACU I Case Times [...]
--- OUTSIDE RECORDS SUMMARY | 2025-09-12 10:06 | XMS_ITS | Encounter Summary ---
Author Organization [employer] ([place], [place], [place], [place], [place]) Address [address] [place] [address] Care Team Providers Care Library Specialist Name Role Phone Unavailable Primary Care Provider Unavailabl e Encounter Details Date Type Department Care Team (Late st Contact Info) Description 06/04/2021 Transcribed Document [facility] [place] [address] [place] [address] ProviderPrasanth MD [address] [place] [address] Social History Tobacco Use Types [...] On: 06/04/2021 9:00 EDT by Chang Medrano, Hairspring I Inspector-Student Nurse NIH Stroke Scale *Q NIH Assessment [...] NIH Scale Score : 0 Chang Medrano, Hairspring I Inspector-Student Nurse - 06/04/2021 8:19 EDT Electronically signed by Filiberto Shelton Conversion Screw Machine Set Up Operator Cerner at 01/26/2023 9:01 PM CDT documented in this encounter Plan of Treatment Not on file documented as of this encounter Visit Diagnoses Not on filedocumented in this encounter
--- OUTSIDE RECORDS SUMMARY | 2025-09-12 10:06 | XMS_ITS | Encounter Summary ---
Author Organization [employer] ([place], [place], [place], [place], [place]) Address [address] [place] [address] Care Team Providers Care Chemical Recovery Operator Name Role Phone Unavailable Primary Care Provider Unavailabl e Encounter Details Date Type Department Care Team (Late st Contact Info) Description 11/07/2019 Transcribed Document [facility] [place] Family [place] [address] [place] [address] ProviderPrasanth MD [address] [place] [address] Social History Tobacco Use Types Packs/Day Years Used Date Smoking Tobacco: Never Assessed Sex and Gender Information Value Date Recorded Sex Assigned at Not on file Legal Sex Male 6:49 PM CDT Gender Identity Not on file Sexual Orientation Not on file documented as of this encounter Miscellaneous Notes * Cerner Conversion Note - Historical ProviderMD - 11/07/2019 3:18 AM MASH GRINDER Height and Weight, Routine Entered On: 11/07/2019 3:18 EST Performed On: 11/07/2019 3:18 EST by Sal Hurt, Freelance Recruiter-Health Unit Coord Height and Weight, Routine Routine Weight Source : Bed scale Routine Weight Entry Format : Metric Routine Weight, Kilograms : 89.7 kg(Converted to: 197 lb 12 oz) Routine Weight Calculation : 89.7 kg Height Source : Stated Height Entry Format : [place] Height, Feet : 5 ft Height, Inches : 9 Inch Clinical Height : 175.26 cm Body Surface Area (BSA), Routine : 2.06 m2 Body Mass Index (BMI), Routine : 29.2 kg/m2 Sal Hurt, Freelance Recruiter-Health Unit Coord - 11/07/2019 3:18 EST documented in this encounter Plan of Treatment Not on file documented as of this encounter Visit Diagnoses Not on filedocumented in this encounter
--- OUTSIDE RECORDS SUMMARY | 2025-09-12 10:06 | XMS_ITS | Encounter Summary ---
Author Organization [employer] ([place], [place], [place], [place], [place]) Address [address] [place] [address] Care Team Providers Care Construction Supervisor Name Role Phone Unavailable Primary Care Provider Unavailabl e Encounter Details Date Type Department Care Team (Late st Contact Info) Description 12/03/2019 Transcribed Document [facility] [place] [address] [place] [address] ProviderPrasanth MD [address] [place] [address] Social History Tobacco Use Types Packs/Day Years Used Date Smoking Tobacco: Never Assessed Sex and Gender Information Value Date Recorded Sex Assigned at Not on file Legal Sex Male 6:49 PM CDT Gender Identity Not on file Sexual Orientation Not on file documented as of this encounter Miscellaneous Notes * Cerner Conversion Note - Prasanth ProviderMD - 12/03/2019 11:24 AM FLOOR SPECIALIST Nursing Discharge Summary Entered On: 12/03/2019 11:24 EST Performed On: 12/03/2019 11:24 EST by AUSTIN FOFANA, timing inspector Documentation Discharge Date/Time : 12/03/2019 12:26 EST [...] 12/03/2019 11:24 EST Electronically signed by Nikita [facility] Conversion Fish Cutting Machine Operator Cerner at 01/26/2023 9:08 PM CDT documented in this encounter Plan of Treatment Not on file documented as of this encounter Visit Diagnoses Not on filedocumented in this encounter
--- OUTSIDE RECORDS SUMMARY | 2025-09-12 10:06 | XMS_ITS | Encounter Summary ---
Author Organization [employer] ([place], [place], [place], [place], [place]) Address [address] [place] [address] Care Team Providers Care Ssis Ssrs Developer Name Role Phone Unavailable Primary Care Provider Unavailabl e Encounter Details Date Type Department Care Team (Late st Contact Info) Description 11/07/2019 Transcribed Document [facility] [place] [address] [place] [address] ProviderPrasanth MD [address] [place] [address] Social History Tobacco Use Types Packs/Day Years Used Date Smoking Tobacco: Never Assessed Sex and Gender Information Value Date Recorded Sex Assigned at Not on file Legal Sex Male 6:49 PM CDT Gender Identity Not on file Sexual Orientation Not on file documented as of this encounter Miscellaneous Notes * Cerner Conversion Note - Prasanth ProviderMD - 11/07/2019 2:30 PM PIPING DRAFTER On Going Discharge Planning Entered On: 11/07/2019 14:32 EST Performed On: 11/07/2019 14:30 EST by BINH SIDDIQI, RN-Avionics Electrical EngineerEgg Processor Progress Note Discharge Arrangements : Patient Post-Acute Information Patient Name: SHIRA GARZA HORACIO Gender: Male : [birth year] Age: 84 Years No Post-Acute Placement(s) Listed No Post-Acute Service(s) Listed No Cur[place]pan Referral(s) Listed Discharge Options Discussed with Patient : Home Health BINH SIDDIQI, RN-Avionics Electrical Engineer - 11/07/2019 14:30 EST Narrative Progress Note [...] and assist w/needs as approp. ROSANA CALLEJAS, RN-Avionics Electrical Engineer - 11/05/19 17:54:54 BINH SIDDIQI, RN-Avionics Electrical Engineer - 11/07/2019 14:30 EST Electronically signed by Nikita [facility] Conversion Fire Engine Operator Cerner at 01/26/2023 8:54 PM CDT documented in this encounter Plan of Treatment Not on file documented as of this encounter Visit Diagnoses Not on filedocumented in this encounter
--- OUTSIDE RECORDS SUMMARY | 2025-09-12 10:06 | XMS_ITS | Encounter Summary ---
Author Organization [employer] ([place], [place], [place], [place], [place]) Address [address] [place] [address] Care Team Providers Care Reading Interventionist Name Role Phone Unavailable Primary Care Provider Unavailabl e Encounter Details Date Type Department Care Team (Late st Contact Info) Description 12/30/2020 Transcribed Document [facility] [place] [address] [place] [address] ProviderPrasanth MD [address] [place] [address] Social History Tobacco Use [...] Sanchez MD - 12/30/2020 11:43 AM CDT [facility] [place] [address] SHIRA GARZA HORACIO :1935 Visit Time:12/30/2020 Your Visit Summary Your Care Team Admitting Physician - ABEBA HOOKS MD Attending Physician - ABEBA HOOKS MD Primary Care Physician - KARON MCWILLIAMS MD-INT Referring Physician - LACIE LAVA MD-CAR Your Diagnosis Nonrheumatic aortic valve disorder, [...] EDT Where: [address] [place] [address]- Medications What How Much When Instructions Next [...] diabetes medicines or blood thinners. ? Taking kwqk-mdu-hmeqxne medicines, vitamins, herbs, and supplements. ? Taking [...] provider. Document Revised: 06/15/2019 Document Reviewed: 12/28/2017 [employer] Patient Education ?? 2020 [employer] Moderate Conscious Sedation, Adult, Care After [...] you are awake and alert. ??? Take ubmg-hwl-etrgvnu and prescription medicines only as told by [...] provider. Document Revised: 09/08/2018 Document Reviewed: 01/15/2017 [employer] Patient Education ?? 2020 [employer] FAQ ??? Patient COVID-19 testing Why [...] all positive cases are reported through the [facility] health department and the [place] Department for Public Health. Those organizations are [...] and need to call 911, notify the oxygen plant operator that you have, or think you [...] clean your hands with an alcohol-based hand drawing operator that contains at least 60% alcohol. Clean your hands often. ??? Wash hands: Wash your hands often with soap and water for at least 20 seconds when visibly dirty. This is especially important after blowing your nose, coughing or sneezing, and going to the bathroom, and before eating or preparing food. ??? Hand drawing operator: Use an alcohol-based hand drawing operator with at least 60% alcohol, covering all [...] and water or put them in the flatwork finisher. Clean all high-touch surfaces every day. Clean [...] or body fluids on them. ??? Household photogrammetric stereo compiler and disinfectants: Clean the area or item [...] list of disinfectants can be found here: https://www.epa.gov/pesticide-registration/deyp-z-pncaaguzbdkny-xef-giqrhsh-ol rs-cov-2 Emergency Awareness and Preventative Care STROKE [...] Assistance with quitting is available by contacting 4-621-QATE-NOW. This is a free resource providing counseling, [...] was given the opportunity to ask questions. Patient/Salesperson Flowers Name: Patient/Salesperson Flowers Signature: Relationship to Patient: Clinician/Hospital Salesperson Flowers Signature: Date: documented in this encounter Plan of Treatment Not on file documented as of this encounter Visit Diagnoses Not on filedocumented in this encounter
--- OUTSIDE RECORDS SUMMARY | 2025-09-12 10:06 | XMS_ITS | Encounter Summary ---
Author Organization [employer] ([place], [place], [place], [place], [place]) Address [address] [place] [address] Care Team Providers Care Postal Supervisor Name Role Phone Unavailable Primary Care Provider Unavailabl e Encounter Details Date Type Department Care Team (Late st Contact Info) Description 12/03/2019 Transcribed Document [facility] [place] Family Medicine [address] [place] [address] ProviderPrasanth MD [address] [place] [address] Social History Tobacco Use Types Packs/Day Years Used Date Smoking Tobacco: Never Assessed Sex and Gender Information Value Date Recorded Sex Assigned at Not on file Legal Sex Male 6:49 PM CDT Gender Identity Not on file Sexual Orientation Not on file documented as of this encounter Miscellaneous Notes * Cerner Conversion Note - Prasanth Sanchez MD - 12/03/2019 11:25 AM DYE RANGE TENDER [facility] [place] [address] ALEXANDREFei SHIRA HORACIO :1935 Visit Time:12/03/2019 [...] F/U with Dr Hughes today(12/03) afternoon at [facility] Where: [address] [place] [address]- Business (1) Medications What How Much When [...] including vitamins, herbs, eye drops, creams, and zyls-qun-mwdcecy medicines. ??? Any problems you or family [...] diabetes medicines or blood thinners. ? Taking sbse-mgf-kdktqme medicines, vitamins, herbs, and supplements. ? Taking [...] 12/17/2003 Document Revised: 12/23/2017 Document Reviewed: 12/23/2017 [employer] Patient Education ?? 2019 [employer] Moderate Conscious Sedation, Adult, Care After [...] you are awake and alert. ??? Take lakf-pyy-puaaenk and prescription medicines only as told by [...] 07/17/2014 Document Revised: 02/28/2017 Document Reviewed: 01/15/2017 [employer] Interactive Patient Education ?? 2019 [employer] Emergency Awareness and Preventative Care STROKE [...] Assistance with quitting is available by contacting 8-200-[facility]-NOW. This is a free resource providing counseling, [...] was given the opportunity to ask questions. Patient/Cpr Ambulance Driver Name: Patient/Cpr Ambulance Driver Signature: Relationship to Patient: Clinician/Hospital Cpr Ambulance Driver Signature: Date: documented in this encounter Plan of Treatment Not on file documented as of this encounter Visit Diagnoses Not on filedocumented in this encounter
--- OUTSIDE RECORDS SUMMARY | 2025-09-12 10:06 | XMS_ITS | Encounter Summary ---
Author Organization [employer] ([place], [place], [place], [place], [place]) Address [address] [place] [address] Care Team Providers Care Laborer Livestock Name Role Phone Unavailable Primary Care Provider Unavailabl e Encounter Details Date Type Department Care Team (Late st Contact Info) Description 06/02/2021 Transcribed Document [facility] [place] [facility] [place] [address] ProviderPrasanth MD [address] [place] [address] Social History Tobacco Use Types [...] On: 06/02/2021 12:27 EDT by Chang Medrano Academic Program Specialist-Student Nurse Advance Directive Patient has Advance Directive *Q : Yes, Advance Directive on file Advance Directive Type : Living will Copy Advance Directive Verified/on Chart : No Chang Medrano Academic Program Specialist-Student Nurse - 06/02/2021 15:42 EDT Anesthesia/Transfusion History Family History of Anesthesia Reaction : No prior transfusion(s) Transfusion History : Prior anesthesia without reaction Family History of Anesthesia Reaction : None Chang Medrano Academic Program Specialist-Student Nurse - 06/02/2021 15:42 EDT Functional Assessment Living Situation : Home Patient Lives With : Spouse SYBIL Hx Falls Immediate/Within 3 Months : No Current Home Treatments : None Chang Medrano Academic Program Specialist-Student Nurse - 06/02/2021 15:42 EDT General Info Mode of Arrival on Unit : Ambulatory Legal Guardian : Spouse Legal Guardian : No 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 Primary Language : Kyrgyz Preferred Communication Mode : Verbal Communication Barrier : None Evening Sitter Needed : No Chang Medrano, Academic Program Specialist-Student Nurse - 06/02/2021 15:42 EDT Fall Risk [...] Scale Risk Level : 25-45 Medium Risk [place] Fall Interventions : Adequate lighting, Bed in low position, Hourly comfort/safety rounds, Non-slip footwear, Personal items within reach, Reinforced to call for assistance before getting out of bed, Room free of clutter/spills, Upper side-rails up, Wheels locked, Wires/Cords secured Barriers to Learning : None evident Fall Risk Scale Calc Temp : 0 Chang Medrano, Academic Program Specialist-Student Nurse - 06/02/2021 15:42 EDT Health Histories Smoking Status : Former smoker, quit more than 30 days ago Smokeless Tobacco Status : Never Chang Medrano Academic Program Specialist-Student Nurse - 06/02/2021 15:42 EDT Social History [...] Source : Stated Height Entry Format : [place] Height, Feet : 5 ft(Converted to: 152 cm, 60 Inch) Height, Inches : 9 Inch(Converted to: 0 ft 9 Inch, 22.86 cm) Clinical Height : 175.26 cm Weight Source : Bed scale Weight Entry Format : [place] Clinical Dosing Weight : 89.14 kg Weight, Pounds : 196.1 lb Body Surface Area (BSA) : 2.05 m2 Body Mass Index : 29 kg/m2 (HI) [place] Body Weight : 70 kg Chang Medrano, Academic Program Specialist-Student Nurse - 06/02/2021 15:42 EDT Infectious Disease [...] Mumps Tuberculosis Symptoms : None Chang Medrano Academic Program Specialist-Student Nurse - 06/02/2021 15:42 EDT Influenza Vaccine Asmt, Adult Previous Vaccines from Immunization Schedule : Previous Vaccines and Immunizations tetanus/diphtheria/pertussis, acel(Tdap): 0.5 mL (11/04/19 21:11:00) Influenza Immunization, Current Season : Outside of influenza season Chang Medrano Academic Program Specialist-Student Nurse - 06/02/2021 15:42 EDT Pneumococcal Vaccine Previous Vaccines from Immunization Schedule : Previous Vaccines and Immunizations tetanus/diphtheria/pertussis, acel(Tdap): 0.5 mL (11/04/19 21:11:00) Pneumonia Immunization Received : Yes Chang Medrano Academic Program Specialist-Student Nurse - 06/02/2021 15:42 EDT Order Details Order Detail : N/A Patient Needs Meds Crushed/Liquid : No Chang Medrano Academic Program Specialist-Student Nurse - 06/02/2021 15:42 EDT Nutrition History Adaptive Feeding Equipment : Regular Oral Medication Administration : By mouth Eating Poorly Due to Decreased Appetite : No Unplanned Weight Loss in Past 3-6 Months : No Malnutrition Screening Tool Total(mal) : 0 Malnutrition Screening Tool Risk Level : Patient not at risk Chang Medrano Academic Program Specialist-Student Nurse - 06/02/2021 15:42 EDT [place] Suicide Severity Rating Scale (C-SSRS) CSSRS Past Month Wish to be : No CSSRS Past Month Suicidal Thoughts : No CSSRS Lifetime Suicide Behavior : No Suicide Severity Rating Score : 0 Suicide Severity Rating : No Additional Care Required at this time Chang Medrano Academic Program Specialist-Student Nurse - 06/02/2021 15:42 EDT Psychosocial History Chronic/Terminal Illness w/Freq Visits : No Do You Have a History of the Following? : Patient denies history Currently in Unsafe Situation : No Chang Medrano Academic Program Specialist-Student Nurse - 06/02/2021 15:42 EDT Sleep Apnea [...] Risk Level Score : 3 Chang Medrano, Academic Program Specialist-Student Nurse - 06/02/2021 15:42 EDT Valuables and Belongings Valuables and Belongings : Clothing, Personal devices Clothing : Common streetwear Clothing Disposition : Bedside Personal Device Disposition : With patient Personal Devices : Glasses Chang Medrano, Academic Program Specialist-Student Nurse - 06/02/2021 15:42 EDT Electronically signed by Nikita [facility] Conversion Grazing Aide Cerner at 01/26/2023 8:56 PM CDT documented in this encounter Plan of Treatment Not on file documented as of this encounter Visit Diagnoses Not on filedocumented in this encounter
--- OUTSIDE RECORDS SUMMARY | 2025-09-12 10:06 | XMS_ITS | Encounter Summary ---
Author Organization [employer] ([place], [place], [place], [place], [place]) Address [address] [place] [address] Care Team Providers Care Mixer And Scaler Name Role Phone Unavailable Primary Care Provider Unavailabl e Encounter Details Date Type Department Care Team (Late st Contact Info) Description 06/04/2021 Transcribed Document [facility] [place] Family Medicine [address] [place] [address] ProviderPrasanth MD [address] [place] [address] Social History Tobacco Use [...] is also called a myocardial infarction, or UT. If you think you are having a [...] these instructions at home: Medicines ??? Take fiqb-dsb-ipxmlvy and prescription medicines only as told by [...] provider. Document Revised: 01/07/2020 Document Reviewed: 01/07/2020 [employer]Stream[employer] Software Patient Education ? 2019 [employer].io Inc. Coronary Artery Disease, Male Coronary artery disease (CAD) is a condition in which the arteries that lead to the heart (coronary arteries) become narrow or blocked. The narrowing or blockage can lead to decreased blood flow to the heart. Prolonged reduced blood flow can cause a heart attack (myocardial infarction or UT). This condition may also be called coronary [...] these instructions at home: Medicines ??? Take fquh-mth-iwfhiad and prescription medicines only as told by [...] Reviewed: 06/05/2019 Elsevier Patient Education ? 2019 [employer] Inc. Hematology Bleeding Precautions When on Anticoagulant [...] blood clot. Taking other medicines ??? Take pzzg-ntp-hhavhgh and prescriptions medicines only as told by your health care provider. ??? Do not take xger-qix-vaitbgb NSAIDs, including aspirin and ibuprofen, while you [...] use toothpicks. ??? Use a soft-bristled toothbrush. [place] your teeth gently. ??? Always wear shoes [...] ??? Work with a diet and nutrition partner (dietitian) to make an eating plan. Do [...] provider. Document Revised: 01/16/2020 Document Reviewed: 12/13/2017 [employer][email or web address] Patient Education ? 2019 [employer] Inc. Neurology Transient Ischemic Attack A transient [...] these instructions at home: Medicines ??? Take jezl-yjc-xrcsvfe and prescription medicines only as told by [...] provider. Document Revised: 06/22/2019 Document Reviewed: 12/28/2017 [employer].io Patient Education ? 2020 [employer]. Preventive Health Venous Thromboembolism Prevention Venous thromboembolism [...] for Disease Control and Prevention: www.cdc.gov ??? [place] Heart Association: www.heart.org Get help right away [...] provider. Document Revised: 01/15/2020 Document Reviewed: 12/04/2019 built.io Patient Education ? 2020 [employer] Inc. Electronically signed by Carla Shelton Conversion Career Based Intervention Coordinator Cerner at 01/26/2023 9:10 PM CDT documented in this encounter Plan of Treatment Not on file documented as of this encounter Visit Diagnoses Not on filedocumented in this encounter
--- OUTSIDE RECORDS SUMMARY | 2025-09-12 10:06 | XMS_ITS | Encounter Summary ---
Author Organization [employer] ([place], [place], [place], [place], [place]) Address [address] [place] [address] Care Team Providers Care Nurses Director Name Role Phone Unavailable Primary Care Provider Unavailabl e Encounter Details Date Type Department Care Team (Late st Contact Info) Description 06/04/2021 Transcribed Document [facility] [place] Family Medicine [address] [place] [address] ProviderPrasanth MD [address] [place] [address] Social History Tobacco Use Types [...] Eri James, WILL - 06/04/2021 11:19 EDT documented in this encounter Plan of Treatment Not on file documented as of this encounter Visit Diagnoses Not on filedocumented in this encounter
--- OUTSIDE RECORDS SUMMARY | 2025-09-12 10:07 | XMS_ITS | Encounter Summary ---
Author Organization [email or web address] ([place], [place], [place], [place], [place]) Address [address] [place] [address] Care Team Providers Care Machine Tool Technology Instructor Name Role Phone Unavailable Primary Care Provider Unavailabl e Encounter Details Date Type Department Care Team (Late st Contact Info) Description 06/02/[address] [facility] [place] Family Medicine [facility] [place] [address] ProviderPrasanth MD [address] [place] [address] Social History Tobacco Use Types [...] Communication Barrier : None Primary Language : [place] Citizen Any Spiritual/Cultural Needs or Requests : No [...] Rhythm : Regular Nail Bed Color : [place] Chest Pain : No Capillary Refill, Left Hand : Less than/Equal to (</=) 2 seconds Capillary Refill, Right Hand : Less than/Equal to (</=) 2 seconds Clubbing Present : No SULAIMAN FAULKNER RN - 06/02/2021 11:32 EDT Respiratory Respiratory Assessment WDL : WDSULAIMAN WHITE RN - 06/02/2021 11:32 EDT Electronically signed by Filiberto Shelton Conversion Auto Claim Representative Devynner at 01/26/2023 9:07 PM CDT documented in this encounter Plan of Treatment Not on file documented as of this encounter Visit Diagnoses Not on filedocumented in this encounter
--- OUTSIDE RECORDS SUMMARY | 2025-09-12 10:07 | XMS_ITS | Encounter Summary ---
Author Organization [employer] ([place], [place], [place], [place], [place]) Address [address] [place] [address] Care Team Providers Care Med Admin Name Role Phone Unavailable Primary Care Provider Unavailabl e Encounter Details Date Type Department Care Team (Late st Contact Info) Description 06/02/2021 Transcribed Document [facility] [place] Family Medicine [address] [place] [address] ProviderPrasanth MD [address] [place] [address] Social History Tobacco Use Types [...] On: 06/02/2021 12:40 EDT by Chang Medrano, Chin Strap Cutter-Student Nurse Teaching/Learning Assessment Individuals Taught : Patient Readiness to Learn : Cooperative Readiness to Learn : Explanation, Teach back method Learning Style Preferences Patient : Verbal explanation Chang Medrano, Chin Strap Cutter-Student Nurse - 06/02/2021 15:50 EDT Barriers To Learning : None evident Chang Medrano Chin Strap Cutter-Student Nurse - 06/02/2021 15:49 EDT documented in this encounter Plan of Treatment Not on file documented as of this encounter Visit Diagnoses Not on filedocumented in this encounter
--- OUTSIDE RECORDS SUMMARY | 2025-09-12 10:07 | XMS_ITS | Encounter Summary ---
Author Organization [employer] ([place], [place], [place], [place], [place]) Address [address] [place] [address] Care Team Providers Care Intellectual Property Counsel Name Role Phone Unavailable Primary Care Provider Unavailabl e Encounter Details Date Type Department Care Team (Late st Contact Info) Description 06/02/2021 Transcribed Document [facility] [place] [address] [place] [address] ProviderPrasanth MD [address] [place] [address] Social History Tobacco Use Types [...] On: 06/02/2021 12:40 EDT by Chang Medrano, Terminal Clerk-Student Nurse Amanda Rubin Bedside Swallowing 2 Exhibits [...] 60 mL Water : No Chang Medrano, Terminal Clerk-Student Nurse - 06/02/2021 15:29 EDT documented in this encounter Plan of Treatment Not on file documented as of this encounter Visit Diagnoses Not on filedocumented in this encounter
--- OUTSIDE RECORDS SUMMARY | 2025-09-12 10:07 | XMS_ITS | Encounter Summary ---
Author Organization [employer] ([place], [place], [place], [place], [place]) Address [address] [place] [address] Care Team Providers Care Geophysical Prospecting Permit Agent Name Role Phone Unavailable Primary Care Provider Unavailabl e Encounter Details Date Type Department Care Team (Late st Contact Info) Description 08/04/2020 Transcribed Document [facility] [place] Family Medicine [address] [place] [address] ProviderPrasanth MD [address] [place] [address] Social History Tobacco Use Types [...] EMS Legal Guardian : No Support Person/Patient Poiser : Yes Support Person/Pt Rep Name : Rosa Elena Cormier- spouse Support Person/Pt Rep Contact Information : [phone] home Want Family/Rep/Phys Notified of Admit : No Emergency Contact #1 : Rosa Elena Emergency Contact #1 Emergency Contact #1 Relationship : spouse Emergency Contact #2 : n/a Emergency Contact #2 Phone Number : n/a Emergency Contact #2 Relationship : n/a Chief Complaint : Tele hold Information Obtained From : Patient Primary Language : Romansh Preferred Communication Mode : Verbal Communication Barrier : None Tube Former Operator Needed : No Tish Calvillo Rn - [...] Scale Risk Level : 25-45 Medium Risk [place] Fall Interventions : Adequate lighting Barriers to [...] Source : Stated Height Entry Format : [place] Height, Feet : 5 ft(Converted to: 152 cm, 60 Inch) Height, Inches : 9 Inch(Converted to: 0 ft 9 Inch, 22.86 cm) Clinical Height : 175.26 cm Weight Source : Standing scale Weight Entry Format : [place] Clinical Dosing Weight : 88.64 kg Weight, Pounds : 195 lb Body Surface Area (BSA) : 2.05 m2 Body Mass Index : 28.9 kg/m2 (HI) [place] Body Weight : 70 kg Tish Calvillo [...] Tish Calvillo Rn - 08/04/2020 20:32 EDT [place] Suicide Severity Rating Scale (C-SSRS) CSSRS Past [...]
--- OUTSIDE RECORDS SUMMARY | 2025-09-12 10:07 | XMS_ITS | Encounter Summary ---
Author Organization [employer] ([place], [place], [place], [place], [place]) Address [address] [place] [address] Care Team Providers Care Grocery Cashier Name Role Phone Unavailable Primary Care Provider Unavailcarla e Encounter Details Date Type Department Care Team (Late st Contact Info) Description 06/02/2021 Transcribed Document [facility] [place] Family Medicine [address] [place] [address] ProviderPrasanth MD [address] [place] [address] Social History Tobacco Use Types [...] 85 yo male who was admitted to [facility] on 06/02 for chest pain, elevated troponin, NSTEMI, RLE weakness, and dysarthria. PMHx: aortic valve stenosis s/p replacement, Afib, CAD s/p CABG, [place], HLD, HTN, pacemaker, and SDH. CTH: no [...]
--- OUTSIDE RECORDS SUMMARY | 2025-09-12 10:07 | XMS_ITS | Encounter Summary ---
Author Organization [employer] ([place], [place], [place], [place], [place]) Address [address] [place] [address] Care Team Providers Care Tax Compliance Representative Name Role Phone Unavailable Primary Care Provider Unavailabl e Encounter Details Date Type Department Care Team (Late st Contact Info) Description 06/02/2021 Transcribed Document [facility] [place] Family Medicine [facility] [place] [address] ProviderPrasanth MD [address] [place] [address] Social History Tobacco Use Types [...] CARRANZA RN [employer] pulse generator model [id number], serial #[id number] CABG x5 on 05/29/2008 at 72 Years. [...] EDT Height Source Stated Height Entry Format [place] Height/Length, CZECH (ft) 5 ft Height/Length CZECH 9 Inch CLINICALHEIGHT 175.26 cm [place] Body Weight 69.73 kg Weight Source, ED Standing scale Weight Entry Format [place] Weight Indonesian lb 198.4 lb CLINICALWEIGHT 90.18 kg Body [...] infection, cerebral vascular accident, transient ischemic attack, [place].. Documents reviewed: Emergency department nurses' notes. Orders [...] Color Yellow Urine Appearance Clear Urine Specific [place] 1.020 Urine pH Dipstick *5.0 Urine Leukocyte [...] % 26.0 % Lymph # 1.59 K/uL [place] % 10.6 % [place] # 0.65 K/uL Eos % 0.5 % Eos # 0.03 Baso % 0.2 % Baso # 0.01 Slide Review No . Chest X-Ray: No infiltrate; no pneumothorax; normal mediastinum; no bony abnormality. Sternotomy wires and pacemaker. Per EDMD. . Radiology results: Radiology Results (Last 48 hours) [id number] -- 06/02/2021 09:50 CT Head WO (06/02/2021 [...] - 06/02/2021 11:34:00 , [facility].. - [...] plan.. Notes: I certify that the physician administrative office assistant performed the services as delegated. This note has been prepared with the use of voice recognition software and may contain sound alike errors and omissions.. documented in this encounter Plan of Treatment Not on file documented as of this encounter Visit Diagnoses Not on filedocumented in this encounter
--- OUTSIDE RECORDS SUMMARY | 2025-09-12 10:07 | XMS_ITS | Encounter Summary ---
Author Organization [employer] ([place], [place], [place], [place], [place]) Address [address] [place] [address] Care Team Providers Care Battery Recharger Name Role Phone Unavailable Primary Care Provider Unavailabl e Encounter Details Date Type Department Care Team (Late st Contact Info) Description 06/02/2021 Transcribed Document [facility] [place] Family Medicine [address] [place] [address] ProviderPrasanth MD [address] [place] [address] Social History Tobacco Use Types [...]
--- OUTSIDE RECORDS SUMMARY | 2025-09-12 10:07 | XMS_ITS | Encounter Summary ---
Author Organization [employer] ([place], [place], [place], [place], [place]) Address [address] [place] [address] Care Team Providers Care Natural Gas Trader Name Role Phone Unavailable Primary Care Provider Unavailabl e Encounter Details Date Type Department Care Team (Late st Contact Info) Description 07/22/[address] [facility] [place] Family Medicine [address] [place] [address] ProviderPrasanth MD [address] [place] [address] Social History Tobacco Use Types [...] Sanchez MD - 07/22/2020 12:13 PM CDT [facility] [place] [address] ALEXANDRESHIRA Enamorado HORACIO :1935 Visit Time:07/22/2020 Your Visit [...] From Your Care Team no driving today. turkey picker prescription and start Coumadin according to directions. [facility] to monitor Coumadin labs and dose Follow-Up Appointments Follow Up with LACIE ALVA When 08/21/2020 11:15 AM EST Comments Appointment has been made Where: [address] [place] [address]- [facility] (1) Medications What How Much When Instructions Next Dose warfarin (warfarin 5 mg oral tablet) 1 Tablet(s) Oral Every Day Refills: 6 dose to be adjusted Pickup at [facility] aspirin 81 Milligram(s) Every Day atorvastatin (atorvastatin 20 mg oral tablet) 1 Tablet(s) Oral Tuesday lisinopril 20 Milligram(s) Oral Every Day multivitamin 1 Tablet(s) Oral Every Day Pharmacy Information [facility]: [address] [address] [phone] Start Coumadin tonight Take your medications faithfully. [...] other medicines or supplements? Many prescription and nuts-kyt-lowlaau medicines can interfere with warfarin. Talk with your health care provider or your pharmacist before starting or stopping any new medicines. This includes jchr-hng-wtmoyba vitamins, dietary supplements, herbal medicines, and pain medicines. Your warfarin dosage may need to be adjusted. ??? Some common nyem-koc-qxxzhvd medicines that may increase the risk of [...] you work with a diet and nutrition educator (dietitian). ??? Vitamin K decreases the effect [...] cooked. ??? Collards, raw or cooked. ??? South African chard, raw or cooked. ??? Mustard greens, raw or cooked. ??? Turnip greens, raw or cooked. ??? Parsley, raw. ??? Broccoli, cooked. ??? Noodles, eggs, and spinach, enriched. ??? [place] sprouts, raw or cooked. ??? Beet greens, [...] diet. ??? You start or stop any yxzr-wwz-xwkfszw medicine, prescription medicine, or dietary supplement. ??? [...] 09/26/2006 Document Revised: 05/09/2018 Document Reviewed: 12/22/2016 [employer] Patient Education ?? 2020 [employer] Moderate Conscious Sedation, Adult, Care [...] you are awake and alert. ??? Take xamj-its-vejcuau and prescription medicines only as told by [...] Reviewed: 01/15/2017 Elsevier Patient Education ?? 2020 [employer] Transesophageal Echocardiogram Transesophageal echocardiogram (VITOR) is [...] including vitamins, herbs, eye drops, creams, and nlwx-jfo-tmkdqvx medicines. ??? Any problems you or family [...] diabetes medicines or blood thinners. ? Taking cypu-iky-bjmhnpy medicines, vitamins, herbs, and supplements. ? Taking [...] 12/17/2003 Document Revised: 03/07/2018 Document Reviewed: 12/23/2017 [employer] Patient Education ?? 2020 [employer]. Emergency Awareness and Preventative Care STROKE is [...] Assistance with quitting is available by contacting 5-115-ZLPR-NOW. This is a free resource providing counseling, [...] was given the opportunity to ask questions. Patient/Blending Kettle Tender Name: Patient/Blending Kettle Tender Signature: Relationship to Patient: Clinician/Hospital Blending Kettle Tender Signature: Date: documented in this encounter Plan of Treatment Not on file documented as of this encounter Visit Diagnoses Not on filedocumented in this encounter
--- OUTSIDE RECORDS SUMMARY | 2025-09-12 10:07 | XMS_ITS | Encounter Summary ---
Author Organization [employer] ([place], [place], [place], [place], [place]) Address [address] [place] [address] Care Team Providers Care Sample Case Porter Name Role Phone Unavailable Primary Care Provider Unavailabl e Encounter Details Date Type Department Care Team (Late st Contact Info) Description 08/04/[address] [facility] [place] Family Medicine [address] [place] [address] ProviderPrasanth MD [address], [place] [...] Tish SOLIS on 4 IC. Transferred to [facility] via wheelchair with all belongngs. BRANDON ROE, WILL - 08/04/2020 19:59 EDT Electronically signed by Nikita [facility] Conversion Test Borer Helper Cerner at 01/26/2023 8:54 PM CDT documented in this encounter Plan of Treatment Not on file documented as of this encounter Visit Diagnoses Not on filedocumented in this encounter
--- OUTSIDE RECORDS SUMMARY | 2025-09-12 10:07 | XMS_ITS | Encounter Summary ---
Author Organization [employer] ([place], [place], [place], [place], [place]) Address [address] [place] [address] Care Team Providers Care Head Cd Reactor Operator Name Role Phone Unavailable Primary Care Provider Unavailabl e Encounter Details Date Type Department Care Team (Late st Contact Info) Description 08/04/2020 Transcribed Document [facility] [place] Family Medicine [address] [place] [address] ProviderPrasanth MD [address] [place], [...] of Event : Arrives per stretcher from [facility] awake and alert, skin w/d, no c/o. Denies any CP. SR heart monitor. WALTER POWELL RN - 08/04/2020 13:26 EDT documented in this encounter Plan of Treatment Not on file documented as of this encounter Visit Diagnoses Not on filedocumented in this encounter
--- OUTSIDE RECORDS SUMMARY | 2025-09-12 10:07 | XMS_ITS | Encounter Summary ---
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 Name Role Phone Unavailable Primary Care Provider Unavailabl e Encounter Details Date Type Department Care Team (Late st Contact Info) Description 07/22/2020 Transcribed Document [facility] [place] Family Medicine [address] [place] [address] ProviderPrasanth MD [address] [place] [address] Social History Tobacco Use Types [...] Source : Measured Height Entry Format : [place] Height, Feet : 5 ft(Converted to: 152 cm, 60 Inch) Height, Inches : 10 Inch(Converted to: 0 ft 10 Inch, 25.40 cm) Clinical Height : 177.8 cm Weight Source : Standing scale Weight Entry Format : [place] Clinical Dosing Weight : 90.91 kg Weight, Pounds : 200 lb Body Surface Area (BSA) : 2.09 m2 Body Mass Index : 28.8 kg/m2 (HI) [place] Body Weight : 72 kg SALLY BARNETT [...] SALLY BARNETT RN - 07/22/2020 9:18 EDT [place] Suicide Severity Rating Scale (C-SSRS) CSSRS Past [...] Spouse Legal Guardian : No 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 Support Person/Pt Rep Name : Rosa Elena Cormier- spouse Support Person/Pt Rep Contact Information : [phone] home Want Family/Rep/Phys Notified of Admit : No Emergency Contact #1 : Rosa Elena Emergency Contact #1 Emergency Contact #1 Relationship : spouse Emergency Contact #2 : none Emergency Contact #2 Phone Number : none Emergency Contact #2 Relationship : none Primary Language : Malawian Preferred Communication Mode : Verbal Communication Barrier : None 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
--- OUTSIDE RECORDS SUMMARY | 2025-09-12 10:07 | XMS_ITS | Encounter Summary ---
Author Organization [employer] 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 Name Role Phone Unavailable Primary Care Provider Unavailabl e Encounter Details Date Type Department Care Team (Late st Contact Info) Description 06/02/2021 Transcribed Document [facility] [place] Family Medicine [address] [place] [address] ProviderPrasanth MD [address] [place] [address] Social History Tobacco Use Types Packs/Day Years Used Date Smoking Tobacco: Never Assessed Sex and Gender Information Value Date Recorded Sex Assigned at Not on file Legal Sex Male 6:49 PM CDT Gender Identity Not on file Sexual Orientation Not on file documented as of this encounter Miscellaneous Notes * Cerner Conversion Note - Historical ProviderMD - 06/02/2021 9:50 AM CDT [place] Suicide Severity Rating Scale (C-SSRS) Entered On: 06/02/2021 11:32 EDT Performed On: 06/02/2021 11:32 EDT by SULAIMAN FAULKNER RN [place] Suicide Severity Rating Scale (C-SSRS) CSSRS Past Month Wish to be : No CSSRS Past Month Suicidal Thoughts : No CSSRS Lifetime Suicide Behavior : No Suicide Severity Rating Score : 0 Suicide Severity Rating : No Additional Care Required at this time SULAIMAN FAULKNER RN - 06/02/2021 11:32 EDT Electronically signed by Carla Shelton Conversion Product Development Assistant Cerner at 01/26/2023 8:55 PM CDT documented in this encounter Plan of Treatment Not on file documented as of this encounter Visit Diagnoses Not on filedocumented in this encounter
--- OUTSIDE RECORDS SUMMARY | 2025-09-12 10:07 | XMS_ITS | Encounter Summary ---
Author Organization [employer] ([place], [place], [place], [place], [place]) Address [address] [place] [address] Care Team Providers Care Air Sampler Name Role Phone Unavailable Primary Care Provider Unavailabl e Encounter Details Date Type Department Care Team (Late st Contact Info) Description 06/02/2021 Transcribed Document [facility] [place] [address] [place] [address] ProviderPrasanth MD [address] [place] [address] Social History Tobacco Use Types [...] ADRIÁN LUO, SIGIFREDO General Information Visit Type, EMAIL DEVELOPER : Initial evaluation Patient Orders : Speech Language Pathology Swallow Evaluation and Treatment -111 Start: 06/02/21 15:13:00 EDT, Routine, For Swallow Eval and Treat - CJ AVITIA MD-INT Speech Language Pathology Evaluation and Treatment - Start: 06/02/21 12:40:00 EDT, Routine, For Speech Language Cognitive Eval and Treat -111 CJ AVITIA MD-INT Admission Date : Admission Date/Time: 06/02/21 12:02:00 Medical Chart Reviewed, EMAIL DEVELOPER : Yes Personal Devices : Personal Devices No Devices Recorded Assistive Devices : Assistive Devices No Devices Recorded Active Diagnoses : 06/02/2021 12:00 Chest pain 06/02/2021 12:00 Chest pain, unspecified 06/02/2021 12:00 Non-ST elevation (NSTEMI) myocardial infarction 06/02/2021 12:00 Other specified abnormalities of plasma proteins 06/02/2021 12:00 Transient cerebral ischemic attack, unspecified 06/02/2021 12:00 Weakness Therapy Diagnosis, EMAIL DEVELOPER : Pt presents without overt oropharyngeal patterns. Recommendations: 1. Regular/thin 2. Medication per RN 3. NO further evaluation/tx for oropharyngeal dysphagia 4. EMAIL DEVELOPER will f/u with a definitive neuro dx warranting further communication evaluation Previous Speech/Language Evaluations : No previous ST in EMR Previous Swallow Precautions : No previous ST in EMR Diet/Intake Prior to Current Admission : Regular/thin Diet/Intake During Current Admission : NPO Intubation Comment, EMAIL DEVELOPER : n/a Vital Signs RTF : Vitals [...] 15:14 EDT General Status Patient Received Status, EMAIL DEVELOPER : Sitting edge of bed Patient Left Status, EMAIL DEVELOPER : Sitting edge of bed ADRIÁN LUO [...] Oral Mechanism for Daily Living : Intact EMAIL DEVELOPER Cough : Strong Facial Appearance: : Symmetrical [...] A flutter, CAD, Aortic valve replacement, CABG, [place], HLD, HTN and subdural hematoma. EMAIL DEVELOPER consulted for bedside dysphagia evaluation. Today, pt is alert and oriented x4. No overt communication deficits appreciated. Oral skills appear functional for swallowing. No overt pharyngeal patterns appreciated with any trialed consistency. Pt appears safe for a regular diet and thin liquids. Medication per RN. No further evaluation/tx for oropharyngeal dysphagia is indicated at this time. EMAIL DEVELOPER will f/u with a definitive neuro dx [...] - 06/02/2021 15:14 EDT Therapy Indication Assessment EMAIL DEVELOPER Indicated : No EMAIL DEVELOPER Not Indicated : At prior level of function EMAIL DEVELOPER Interdisciplinary Consultation Needs : No EMAIL DEVELOPER Rehabilitation Potential : At prior level of function ADRIÁN LUO SLP - 06/02/2021 15:14 EDT Education Barriers To Learning : None evident Individuals Taught : Patient Readiness to Learn : Cooperative Readiness to Learn : Explanation ADRIÁN LUO SLP - 06/02/2021 15:14 EDT EMAIL DEVELOPER Education Assessment Grid 1 Diet Recommendation : Verbalizes understanding Evaluation Results : Verbalizes understanding ADRIÁN LUO SLP - 06/02/2021 15:[address] [facility] Charges Evaluation Swallowing Function : 1 ADRIÁN LUO SLP - 06/02/2021 15:14 EDT Anticipated Discharge Needs, EMAIL DEVELOPER Anticipated Discharge to : Home, independently Recommend Continued Therapy at Discharge : No ADRIÁN LUO SLP - 06/02/2021 15:14 EDT Electronically signed by Nikita [facility] Conversion Patient Account Representative Cerner at 01/26/2023 8:54 PM CDT documented in this encounter Plan of Treatment Not on file documented as of this encounter Visit Diagnoses Not on filedocumented in this encounter
[2025-09-12 10:46] LABS: INR 2.19 (0.9-1.1); Prothrombin Time 22.9 seconds (10.1-12.5)
== END 2025-09-12 23:59 | disposition home or self-care (01) ==
LOC: LAB 09:49
PROVIDERS: PCP Family Medicine; Visit Provider Internal Medicine
DX: Z79.01 Long term (current) use of anticoagulants (principal)
CPT/HCPCS: 36415; 85610